=== PATIENT | male | born 1950 | race Caucasian/White ===

== ENCOUNTER → 2017-03-22 | Outpatient (CLI) | payer BC, SELFPAY | PROVIDERS: Visit Provider Nurse Practitioner Acute Care | DX: D64.9 Anemia, unspecified (principal) | CPT/HCPCS: 82272; G0328 ==

== ENCOUNTER → 2017-03-23 | Outpatient (CLI) | payer BC, SELFPAY | PROVIDERS: Visit Provider Nurse Practitioner Acute Care | DX: D64.9 Anemia, unspecified (principal) | CPT/HCPCS: 82272; G0328 ==

== ENCOUNTER → 2017-04-17 09:00 | Outpatient (POV) | payer BC, SELFPAY | PROVIDERS: Family Provider Emergency Medicine; Visit Provider Nurse Practitioner Acute Care | DX: Z00.00 Encounter for general adult medical examination without abnormal findings (principal) ==

== ENCOUNTER → 2017-07-03 10:15 | Outpatient (POV) | payer MEDICARE, SELFPAY | PROVIDERS: Visit Provider Nurse Practitioner Acute Care | DX: Z00.00 Encounter for general adult medical examination without abnormal findings (principal) ==

== ENCOUNTER → 2017-08-08 14:50 | Outpatient (POV) | payer MEDICARE, SELFPAY ==
[2017-08-08 18:11] LABS: Erythrocyte Sedimentation Rate 27 mm/hr (0-20)
[2017-08-08 18:21] LABS: Creatine Kinase 243 U/L (39-308); Uric Acid 3.6 mg/dL (2.6-7.2)
[2017-08-10 08:34] LABS: Alpha-1-Antitrypsin 167 mg/dL (90-200); Immunoglobulin A, Qn 118 mg/dL (61-437); Immunoglobulin G, Qn 709 mg/dL (700-1600); RA Latex Turbid. <10.0 IU/mL (0.0-13.9)
[2017-08-10 13:32] LABS: Immunoglobulin M, Qn 111 mg/dL (20-172)
[2017-08-11 13:00] LABS: Antinuclear Antibodies, IFA Negative (.)
[2017-08-11 13:03] LABS: Aldolase 3.4 U/L (3.3-10.3); Deamidated Gliadin Abs, IgA 5 units (0-19); Deamidated Gliadin Abs, IgG 4 units (0-19)
== END ==
PROVIDERS: Family Provider Emergency Medicine; Visit Provider Internal Medicine
DX: R06.00 Dyspnea, unspecified (principal); R19.7 Diarrhea, unspecified; R76.11 Nonspecific reaction to tuberculin skin test without active tuberculosis; G62.9 Polyneuropathy, unspecified; M79.1 Myalgia; M25.50 Pain in unspecified joint
CPT/HCPCS: 36415; 82085; 82104; 82550; 82784; 83516; 84550; 85651; 86038; 86431; 86480

== ENCOUNTER → 2017-08-17 08:04 | Outpatient (CLI) | payer MEDICARE, SELFPAY ==
[2017-08-17 09:36] LABS: Basophils % 0.7 % (0.1-2.0); Eosinophils # 0.2 K/mm3 (0.0-0.4); Eosinophils % 4.9 % (0.1-12.0); Hemoglobin 9.8 g/dL (14.1-18.0); Lymphocytes # 0.7 K/mm3 (0.7-4.5); Lymphocytes % 17.7 K/mm3 (10-50); Mean Corpuscular HGB Conc 29.6 g/dL (31.8-35.4); Mean Corpuscular Hemoglobin 19.9 pg (27.0-31.2); Mean Corpuscular Volume 67.2 fl (80-94); Mean Platelet Volume 7.8 fl (7.4-10.4); Monocytes # 0.3 K/mm3 (0.1-1.0); Monocytes % 7.7 % (1.7-9.3); Neutrophils # 2.8 K/mm3 (1.8-7.8); Platelet Count 314 K/mm3 (142-424); Red Cell Distribution Width 17.2 % (11.5-17.5); White Blood Count 4.1 K/mm3 (4.8-10.8)
[2017-08-17 11:39] LABS: Erythrocyte Sedimentation Rate 20 mm/hr (0-20)
[2017-08-17 12:37] LABS: Alanine Aminotransferase 33 U/L (12-78); Albumin Level 3.9 gm/dL (3.4-5.0); Albumin/Globulin Ratio 1.2 (1.1-1.8); Alkaline Phosphatase 75 U/L (46-116); Anion Gap 14.5 mEq/L (5-15); Aspartate Amino Transferase 33 U/L (15-37); Blood Urea Nitrogen 25 mg/dL (7-18); Calcium 9.2 mg/dL (8.5-10.1); Carbon Dioxide 25 mmol/L (21.0-32.0); Chloride 103 mmol/L (98-107); Creatinine,Serum 1.05 mg/dL (0.70-1.30); Estimated Glomerular Filt Rate 71 ml/min (>60); GFR (African American) 86 ML/MIN (>60); Globulin 3.2 gm/dl (1.3-3.2); Glucose 109 mg/dL (74-106); Potassium 4.5 mmoL/L (3.5-5.1); Sodium 138 mmol/L (136-145); Thyroid Stimulating Hormone 2.22 uIU/ml (0.358-3.740); Total Protein,Serum 7.1 gm/dL (6.4-8.2)
== END ==
PROVIDERS: Family Provider Emergency Medicine; PCP Emergency Medicine; Visit Provider Internal Medicine
DX: M79.1 Myalgia (principal); R06.00 Dyspnea, unspecified; M25.50 Pain in unspecified joint; G62.9 Polyneuropathy, unspecified; R19.7 Diarrhea, unspecified; R76.11 Nonspecific reaction to tuberculin skin test without active tuberculosis
CPT/HCPCS: 36415; 80053; 84443; 85025; 85651

== ENCOUNTER → 2017-08-24 16:00 | Outpatient (REF) | payer MEDICARE, SELFPAY ==
[2017-08-24 18:59] LABS: Hemoglobin A1C 6.7 % (0.0-7.0)
[2017-08-26 18:32] LABS: PSA, Free 0.14 ng/mL; Prostate Specific Ag 0.3 ng/mL (0.0-4.0); Vitamin B12 1496 pg/mL (232-1245)
== END ==
LOC: LAB 16:00
PROVIDERS: Visit Provider Nurse Practitioner Family
DX: E11.9 Type 2 diabetes mellitus without complications (principal); R53.83 Other fatigue; Z12.5 Encounter for screening for malignant neoplasm of prostate; N40.0 Benign prostatic hyperplasia without lower urinary tract symptoms
CPT/HCPCS: 82607; 82652; 83036; 84153; 84154

== ENCOUNTER → 2017-09-04 10:07 | Outpatient (POV) | payer MEDICARE, SELFPAY | PROVIDERS: Family Provider Emergency Medicine; PCP Emergency Medicine; Referring Provider Internal Medicine; Visit Provider Specialist | DX: M62.81 Muscle weakness (generalized) (principal); M79.1 Myalgia; G62.9 Polyneuropathy, unspecified; R06.00 Dyspnea, unspecified | CPT/HCPCS: 95886; 95912 ==

== ENCOUNTER → 2017-09-08 12:46 | Outpatient (CLI) | payer MEDICARE, SELFPAY ==
[2017-09-08 14:05] VITALS: PULSE 69
[2017-09-08 14:40] VITALS: BP 132/74; PULSE 78; RESP 16; O2SAT 97
[2017-09-08 14:50] VITALS: BP 141/80; PULSE 107; RESP 26; O2SAT 95
--- NOTE | 2017-09-08 14:55 | CT_ITS ---
CT chest wo con HISTORY: ITS.REASON: DYSPNEA,MUSCLE WEAKNESS ORDERING PHYSICIAN: De Avila MD PATIENT AGE: 67 years COMPARISON: None Technique: Axial images obtained. Sagittal and coronal reformatted images are also generated and reviewed. All CT scans at the facility use one or more dose reduction, viz: automated exposure control; ma/kV adjustment per patient size (including targeted exams where dose is matched to indication; i.e. head); or iterative reconstruction technique. FINDINGS: No mediastinal or hilar mass or adenopathy. There are coronary artery calcification with normal heart size and no evidence of pericardial effusion. No evidence of anterior mediastinal mass. There are few small nodes in the mediastinum nonspecific. Coronary artery stent is present. There are minimal fibrotic changes in the right lower lobe medially adjacent to prominent vertebral osteophytes. No effusions or infiltrates or suspicious pulmonary nodules. Upper abdominal images show small amount gas in the distal esophagus which may be seen with reflux. An isodense lesion is present in the left hepatic lobe incompletely imaged as seen on prior abdomen CT. IMPRESSION: 1. No acute finding. 2. No mediastinal or hilar mass or suspicious pulmonary mass.
== END ==
PROVIDERS: Family Provider Emergency Medicine; PCP Emergency Medicine; Visit Provider Internal Medicine
DX: R06.00 Dyspnea, unspecified (principal); M79.1 Myalgia; M62.81 Muscle weakness (generalized); G62.9 Polyneuropathy, unspecified; M25.50 Pain in unspecified joint
CPT/HCPCS: 71250; 94060; 94618; 94640; 94726; 94729

== ENCOUNTER → 2017-09-12 13:52 | Outpatient (POV) | payer MEDICARE, SELFPAY | PROVIDERS: Family Provider Emergency Medicine; PCP Emergency Medicine; Visit Provider Internal Medicine | DX: Z00.00 Encounter for general adult medical examination without abnormal findings (principal) ==

== ENCOUNTER → 2017-10-09 12:14 | Outpatient (CLI) | payer MEDICARE, SELFPAY ==
--- NOTE | 2017-10-09 12:34 | XR_ITS ---
Complete Cervical spine series Cervical flexion-extension views XR cervical spine w flex/ext Ordering Physician: Kirsten Gates MD Patient Age: 67 years: Male HISTORY: ITS.REASON: neuropathy TECHNIQUE: Five-view cervical spine series; with additional flexion and extension views C-spine COMPARISON :No C-spine studies FINDINGS No acute fracture nor subluxation. C1-C2 relationships appear normal. Prevertebral soft tissues normal. C2/3 disc unremarkable C3/4. Mild degenerative anterolisthesis of C3 on C4. This increases slightly between extension and flexion. It Measurements suggest m 2.4 mm in extension; 3.4 mm with flexion.. 3 mm in neutral position. However the posterior spinolaminar line remains satisfactory..- No significant offset of posterior elements Trace posterior ridging at this level yield mild left foraminal encroachment. There are hypertrophic degenerative facet changes most evident C3/4 level to the left C4/5. Disc with borderline narrowing posteriorly. Perhaps some trace posterior osteophytic ridging with moderate right foraminal encroachment C5-C6 Degenerative disc space narrowing at C5/6 with posterior osteophytic endplate ridging evident yielding right foraminal encroachment more so than left Most prominent, exuberant anterior marginal osteophytes are seen at this level C6/7. Disc intact. Normal alignment C7/T1. IMPRESSION: 1.... C5-C6: Degenerative disc changes most evident at C5-C6 A prominent disc space narrowing with posterior osteophytic ridging indenting thecal sac and encroachment upon neural foramen right more so than left 2.... C3/4. Mild degenerative listhesis of which appears to increase very slightly with flexion. Cervical spondylosis & prominent facet hypertrophy/arthropathy to the left at C3/4 level: (& likely contributes to this degenerative listhesis) (
[2017-10-09 13:21] LABS: Creatine Kinase 156 U/L (39-308)
[2017-10-10 14:33] LABS: Albumin 3.8 g/dL (2.9-4.4); Alpha-1-Globulin 0.2 g/dL (0.0-0.4); Alpha-2-Globulin 0.9 g/dL (0.4-1.0); Angiotensin Converting Enzyme 39 U/L (14-82); Anti-Jo-1 <0.2 AI (0.0-0.9); Gamma Globulin 0.8 g/dL (0.4-1.8); Protein, Total 6.8 g/dL (6.0-8.5)
[2017-10-10 19:21] LABS: Aldolase 3.4 U/L (3.3-10.3)
[2017-10-14 06:26] LABS: Vitamin E Gamma Tocopherol 0.7 mg/L (0.5-4.9)
[2017-10-14 18:28] LABS: Methylmalonic Acid 133 nmol/L (0-378)
[2017-10-18 06:13] LABS: Vitamin E Alpha Tocopherol 35.4 mg/L (9.0-29.0)
== END ==
PROVIDERS: PCP Nurse Practitioner Family; Visit Provider Specialist
DX: G62.9 Polyneuropathy, unspecified (principal); R26.89 Other abnormalities of gait and mobility; R26.9 Unspecified abnormalities of gait and mobility; R53.1 Weakness
CPT/HCPCS: 36415; 72052; 82085; 82131; 82164; 82550; 84155; 84165; 84446; 86235

== ENCOUNTER → 2017-10-16 10:17 | Outpatient (CLI) | payer MEDICARE, SELFPAY | PROVIDERS: Family Provider Emergency Medicine; PCP Nurse Practitioner Family; Visit Provider Specialist | DX: R26.89 Other abnormalities of gait and mobility (principal) ==

== ENCOUNTER → 2017-10-23 10:10 | Outpatient (CLI) | payer MEDICARE, SELFPAY ==
--- NOTE | 2017-10-23 10:31 | MR_ITS ---
MR cervical spine wo con, MR 3-d myelogram/MRCP HISTORY: Neck pain X few years. Bilateral. Arm and Leg pain, numbness, and tingling. Weakness Bilateral hands. Rt leg Lymphadema. . ITS.REASON: WEAKNESS, GAIT DISTUBANCE ORDERING PHYSICIAN: Kirsten Gates MD PATIENT AGE: 67 years Comparison: X-RAY 10/09/17 TECHNIQUE: Standard multiplanar multiecho sequences are performed without contrast. 3-D MIP and myelographic images are also rendered and reviewed FINDINGS: Study is very limited secondary to motion artifact. Fine detail is obscured. There is reversal of the cervical lordosis. This may be due to patient positioning or muscle spasm. The craniocervical junction has an unremarkable appearance. C2-C3: Unremarkable. C3-C4: Degenerative disc disease. 3 mm anterolisthesis of C3 on C4. There is narrowing of the canal at 10 mm. C4-C5: Degenerative disc disease with mild concentric bulging disc with narrowing of the canal at 10 mm. C5-C6: Degenerative disc disease with concentric bulging disc. Sagittal images suggest a right paracentral disc osteophyte complex. Axial images are very limited due to motion artifact. There is narrowing of the canal at this level at 9 mm. C6-C7: Unremarkable. C7-T1: Unremarkable. IMPRESSION: The study is very limited secondary to motion artifact. There is multilevel degenerative disc disease which is most extensive at C5-C6. Right paracentral disc osteophyte complex is present at C5-C6. The degree of impingement however is not adequately determined secondary to the motion artifact. There is narrowing of the canal C3-C7.
== END ==
PROVIDERS: Family Provider Emergency Medicine; PCP Nurse Practitioner Family; Visit Provider Specialist
DX: R53.1 Weakness (principal); G62.9 Polyneuropathy, unspecified; R26.9 Unspecified abnormalities of gait and mobility; R26.89 Other abnormalities of gait and mobility
CPT/HCPCS: 72141; 76376

== ENCOUNTER → 2017-10-30 09:48 | Outpatient (POV) | payer MEDICARE, SELFPAY | PROVIDERS: Family Provider Emergency Medicine; PCP Nurse Practitioner Family; Visit Provider Internal Medicine | DX: Z00.00 Encounter for general adult medical examination without abnormal findings (principal) ==

== ENCOUNTER → 2018-01-12 06:54 | Outpatient (CLI) | payer MEDICARE, SELFPAY ==
--- NOTE | 2018-01-12 06:57 | NM_ITS ---
History and Indications: Coronary artery disease, hypertension, diabetes, hyperlipidemia, family history, shortness of breath and fatigue Procedure: Patient received a 0.4 mg of intravenous Lexiscan, resting heart rate was 68 bpm resting blood pressure 143/83, CT scan maximum heart rate achieved was 96 bpm which is less than 85% of the maximum predicted heart rate and a blood pressure was 129/73. With Lexiscan patient denied complained of chest pain. Electrocardiogram: Resting electrocardiogram showed sinus rhythm, with Lexiscan there is less than 1.[address] segment depression noted from the baseline EKG. The EKG portion of the Lexiscan Myoview is nondiagnostic. Cardiac stress and resting SPECT images: Cardiac stress and rest SPECT images were obtained using technetium 99 Myoview 31.3 mCi at stress and 9.8 mCi at rest gated SPECT further analysis of segmental wall motion and calculation of the ejection fraction also done. Cardiac stress and resting SPECT images show mild fixed defect in the inferior wall with normal contractility gated SPECT is likely secondary to soft tissue attenuation, no reversible ischemia seen, computer derived ejection fraction is 85% with no regional wall motion abnormality, right ventricle is normal size and contractility. Conclusion: 1. The EKG portion of the Lexiscan Myoview is nondiagnostic. 2. No scintigraphic evidence of reversible ischemia seen, computer derived ejection fraction is 55% with no regional wall motion abnormality, right ventricle is normal size and contractility. 3. Normal Lexiscan Myoview study.
== END ==
PROVIDERS: Family Provider Emergency Medicine; PCP Nurse Practitioner Family; Visit Provider Internal Medicine
DX: E11.9 Type 2 diabetes mellitus without complications (principal); I25.10 Atherosclerotic heart disease of native coronary artery without angina pectoris; I89.0 Lymphedema, not elsewhere classified; E78.49 Other hyperlipidemia; I10 Essential (primary) hypertension; R06.09 Other forms of dyspnea
CPT/HCPCS: 78452; 93017; A9502; J2785

== ENCOUNTER → 2018-02-12 11:55 | Outpatient (POV) | payer MEDICARE, SELFPAY | PROVIDERS: Visit Provider Nurse Practitioner Acute Care | DX: Z00.00 Encounter for general adult medical examination without abnormal findings (principal) ==

== ENCOUNTER → 2018-04-30 09:02 | Outpatient (POV) | payer MEDICARE, SELFPAY | PROVIDERS: Visit Provider Nurse Practitioner Acute Care | DX: Z00.00 Encounter for general adult medical examination without abnormal findings (principal) ==

== ENCOUNTER → 2018-06-27 13:27 | Outpatient (CLI) | payer MEDICARE, SELFPAY ==
[2018-06-27 14:15] LABS: Alanine Aminotransferase 47 U/L (12-78); Albumin Level 3.7 gm/dL (3.4-5.0); Alkaline Phosphatase 66 U/L (46-116); Anion Gap 17.4 mEq/L (5-15); Aspartate Amino Transferase 40 U/L (15-37); Bilirubin,Total 0.5 mg/dL (0.2-1.0); Blood Urea Nitrogen 17 mg/dL (7-18); Calcium 8.8 mg/dL (8.5-10.1); Carbon Dioxide 24 mmol/L (21.0-32.0); Chloride 103 mmol/L (98-107); Chol/HDL Ratio 2.3 (1-3.5); Cholesterol 128 mg/dL (140-200); Creatinine,Serum 1.05 mg/dL (0.70-1.30); Estimated Glomerular Filt Rate 71 ml/min (>60); GFR (African American) 86 ML/MIN (>60); Globulin 3.6 gm/dl (1.3-3.2); Glucose 122 mg/dL (74-106); HDL Cholesterol 56 mg/dL (27-67); LDL Cholesterol 52 mg/dL (0-130); Potassium 4.4 mmoL/L (3.5-5.1); Sodium 140 mmol/L (136-145); T4 (Thyroxine) 9.9 ug/dl (4.7-13.3); Total Protein,Serum 7.3 gm/dL (6.4-8.2); Triglycerides 101 mg/dL (30-200); VLDL Cholesterol 20 mg/dL (0-40)
[2018-06-27 14:23] LABS: Hemoglobin A1C 7.2 % (0.0-7.0)
[2018-06-27 14:50] LABS: Basophils % 0.4 % (0.1-2.0); Eosinophils # 0.1 K/mm3 (0.0-0.4); Hematocrit 32.2 % (42.0-52.0); Hemoglobin 9.2 g/dL (14.1-18.0); Lymphocytes # 0.6 K/mm3 (0.7-4.5); Lymphocytes % 9.7 % (10-50); Mean Corpuscular HGB Conc 28.7 g/dL (31.8-35.4); Mean Corpuscular Hemoglobin 19.8 pg (27.0-31.2); Mean Corpuscular Volume 68.8 fl (80-94); Mean Platelet Volume 7.1 fl (7.4-10.4); Monocytes # 0.6 K/mm3 (0.1-1.0); Monocytes % 8.8 % (1.7-9.3); Neutrophils # 5.1 K/mm3 (1.8-7.8); Neutrophils % 79.1 % (37.0-80.0); Platelet Count 375 K/mm3 (142-424); Red Blood Count 4.68 M/mm3 (4.60-6.20); Red Cell Distribution Width 18.9 % (11.5-17.5); White Blood Count 6.4 K/mm3 (4.8-10.8)
[2018-06-28 09:20] LABS: Creatinine, Urine 305.9 mg/dL (Not Estab.); Microalbumin, Urine 129.3 ug/mL (Not Estab.)
[2018-06-28 15:08] LABS: PSA, Free 0.15 ng/mL; Prostate Specific Ag 0.5 ng/mL (0.0-4.0); Vitamin D 25 Hydroxy 37.9 ng/mL (30.0-100.0)
[2018-06-28 15:54] LABS: Ferritin 26 ng/mL (8-388)
[2018-06-30 08:26] LABS: Iron 18 ug/dL (38-169); UIBC 407 ug/dL (111-343)
[2018-06-30 18:09] LABS: Iron Saturation 4 % (15-55)
== END ==
PROVIDERS: Visit Provider Physician Assistant
DX: R06.02 Shortness of breath (principal); R09.89 Other specified symptoms and signs involving the circulatory and respiratory systems; E11.9 Type 2 diabetes mellitus without complications; R19.7 Diarrhea, unspecified; D64.9 Anemia, unspecified
CPT/HCPCS: 80053; 80061; 82043; 82570; 82652; 82728; 83036; 83540; 83550; 84153; 84154; 84436; 84443; 85025

== ENCOUNTER → 2018-07-03 14:51 | Outpatient (POV) | payer MEDICARE, SELFPAY | PROVIDERS: Visit Provider Internal Medicine | DX: Z00.00 Encounter for general adult medical examination without abnormal findings (principal) ==

== ENCOUNTER 2018-07-16 12:56 | Outpatient (CLI) | payer MEDICARE, SELFPAY ==
[2018-07-16 13:24] VITALS: BP 153/81; PULSE 82; RESP 18; TEMP 36.4; O2SAT 99
[2018-07-16 14:05] VITALS: BP 144/79; PULSE 84; RESP 18; O2SAT 99
== END 2018-07-16 14:05 | disposition home or self-care (01) ==
LOC: INF 12:56
PROVIDERS: Visit Provider Physician Assistant
DX: D50.9 Iron deficiency anemia, unspecified (principal)
CPT/HCPCS: 96365; J1439

== ENCOUNTER 2018-07-23 13:48 | Outpatient (CLI) | payer MEDICARE, SELFPAY ==
[2018-07-23 14:00] VITALS: BP 153/79; PULSE 85; RESP 18; TEMP 36.6; O2SAT 97
[2018-07-23 14:30] VITALS: BP 150/76; PULSE 88; RESP 18; O2SAT 98
[2018-07-23 14:45] VITALS: BP 155/90; PULSE 84; RESP 20; O2SAT 98
== END 2018-07-23 14:45 | disposition home or self-care (01) ==
LOC: INF 13:48
PROVIDERS: Visit Provider Physician Assistant
DX: D50.9 Iron deficiency anemia, unspecified (principal)
CPT/HCPCS: 96365; J1439

== ENCOUNTER → 2018-07-24 14:50 | Outpatient (POV) | payer MEDICARE, SELFPAY | PROVIDERS: Visit Provider Dermatology | DX: Z00.00 Encounter for general adult medical examination without abnormal findings (principal) ==

== ENCOUNTER → 2018-07-27 14:35 | Outpatient (CLI) | payer MEDICARE, SELFPAY ==
[2018-07-27 15:26] LABS: Basophils % 0.5 % (0.1-2.0); Eosinophils # 0.1 K/mm3 (0.0-0.4); Eosinophils % 2.5 % (0.1-12.0); Hemoglobin 10.8 g/dL (14.1-18.0); Lymphocytes # 0.9 K/mm3 (0.7-4.5); Lymphocytes % 21.8 % (10-50); Mean Corpuscular HGB Conc 30.8 g/dL (31.8-35.4); Mean Corpuscular Hemoglobin 22.7 pg (27.0-31.2); Mean Corpuscular Volume 73.8 fl (80-94); Mean Platelet Volume 7.5 fl (7.4-10.4); Monocytes # 0.3 K/mm3 (0.1-1.0); Monocytes % 7.5 % (1.7-9.3); Neutrophils # 2.7 K/mm3 (1.8-7.8); Neutrophils % 67.7 % (37.0-80.0); Platelet Count 216 K/mm3 (142-424); Red Blood Count 4.74 M/mm3 (4.60-6.20); White Blood Count 3.9 K/mm3 (4.8-10.8)
[2018-07-27 15:51] LABS: Red Cell Distribution Width 25.8 % (11.5-17.5)
[2018-07-27 16:39] LABS: Prostate Specific Ag Screen 0.3 ng/mL (0.0-4.0)
== END ==
PROVIDERS: Visit Provider Physician Assistant
DX: R06.02 Shortness of breath (principal); Z12.5 Encounter for screening for malignant neoplasm of prostate; D50.9 Iron deficiency anemia, unspecified
CPT/HCPCS: 36415; 85025; G0103

== ENCOUNTER → 2018-08-07 17:30 | Outpatient (CLI) | payer MEDICARE, SELFPAY ==
[2018-08-07 18:21] LABS: Basophils % 0.3 % (0.1-2.0); Eosinophils % 0.6 % (0.1-12.0); Hematocrit 37.9 % (42.0-52.0); Hemoglobin 11.7 g/dL (14.1-18.0); Lymphocytes # 0.8 K/mm3 (0.7-4.5); Lymphocytes % 13.2 % (10-50); Mean Corpuscular HGB Conc 30.9 g/dL (31.8-35.4); Mean Corpuscular Hemoglobin 23.9 pg (27.0-31.2); Mean Corpuscular Volume 77.5 fl (80-94); Monocytes # 0.4 K/mm3 (0.1-1.0); Monocytes % 6.7 % (1.7-9.3); Neutrophils # 5.1 K/mm3 (1.8-7.8); Neutrophils % 79.2 % (37.0-80.0); Platelet Count 256 K/mm3 (142-424); Red Blood Count 4.89 M/mm3 (4.60-6.20); White Blood Count 6.4 K/mm3 (4.8-10.8)
[2018-08-07 18:27] LABS: Red Cell Distribution Width 25.6 % (11.5-17.5)
[2018-08-09 08:22] LABS: Iron 70 ug/dL (38-169); UIBC 245 ug/dL (111-343)
[2018-08-09 10:50] LABS: Iron Saturation 22 % (15-55)
== END ==
PROVIDERS: Visit Provider Nurse Practitioner Family
DX: D50.9 Iron deficiency anemia, unspecified (principal)
CPT/HCPCS: 83540; 83550; 85025

== ENCOUNTER → 2018-09-04 14:57 | Outpatient (POV) | payer MEDICARE, SELFPAY | PROVIDERS: Visit Provider Dermatology | DX: Z00.00 Encounter for general adult medical examination without abnormal findings (principal) ==

== ENCOUNTER → 2018-09-07 07:45 | Outpatient (CLI) | payer MEDICARE, SELFPAY ==
--- NOTE | 2018-09-07 07:47 | MR_ITS ---
MR shoulder LT wo con HISTORY:Left shoulder pain, injury with pain, unable to raise left arm above head ITS.REASON: shoulder pain- scapula fx ORDERING PHYSICIAN: Jonah Anthony APRN PATIENT AGE: 68 years Comparison: None TECHNIQUE: Standard multiplanar multiecho sequences are performed without contrast. FINDINGS: There is a complete tear of the supraspinatus tendon with retraction of the musculotendinous fibers. Prominent hypertrophic changes are present at the acromioclavicular joint with moderate to severe subacromial stenosis with the subacromial space measuring approximately 3 mm. There is superior location of the humeral head. A full-thickness tear is also present involving the infraspinatus tendon anteriorly. There may be some intact fibers posteriorly. There is also a complete tear of the subscapularis tendon with retraction of the tendinous fibers in the glenohumeral region. Teres minor tendon does appear to be intact. No obvious labral tear. No fracture. There is a small amount of fluid along the anterior posterior aspect of the shoulder joint. Bicipital tendon is in place. There is a small subarticular cyst involving the humeral head posteriorly at 5 mm. IMPRESSION: 1. There is complete tear of the supraspinatus and subscapularis tendon with retraction of the musculotendinous fibers. 2. Full-thickness tear of the infraspinatus tendon. There may be some intact fibers posteriorly. The infraspinatus tendon is not retracted. 3. Superior position of the humeral head with subarticular cyst of the humeral head and small shoulder joint effusion. 4. Severe subacromial stenosis
== END ==
PROVIDERS: PCP Nurse Practitioner Family; Visit Provider Nurse Practitioner Family
DX: S42.109A Fracture of unspecified part of scapula, unspecified shoulder, initial encounter for closed fracture (principal)
CPT/HCPCS: 73221

== ENCOUNTER → 2018-09-10 20:19 | Outpatient (CLI) | payer MEDICARE, SELFPAY ==
[2018-09-10 20:57] LABS: Basophils % 0.5 % (0.1-2.0); Eosinophils # 0.1 K/mm3 (0.0-0.4); Eosinophils % 2.2 % (0.1-12.0); Hematocrit 39.4 % (42.0-52.0); Hemoglobin 11.8 g/dL (14.1-18.0); Lymphocytes # 1.2 K/mm3 (0.7-4.5); Lymphocytes % 22.7 % (10-50); Mean Corpuscular HGB Conc 30.1 g/dL (31.8-35.4); Mean Corpuscular Hemoglobin 23.8 pg (27.0-31.2); Mean Corpuscular Volume 79.3 fl (80-94); Mean Platelet Volume 7.9 fl (7.4-10.4); Monocytes # 0.4 K/mm3 (0.1-1.0); Monocytes % 7.5 % (1.7-9.3); Neutrophils # 3.5 K/mm3 (1.8-7.8); Neutrophils % 67.1 % (37.0-80.0); Platelet Count 263 K/mm3 (142-424); Red Blood Count 4.96 M/mm3 (4.60-6.20); Red Cell Distribution Width 21.5 % (11.5-17.5); White Blood Count 5.1 K/mm3 (4.8-10.8)
[2018-09-10 21:22] LABS: Ferritin 94 ng/mL (8-388)
[2018-09-12 08:25] LABS: Iron 51 ug/dL (38-169); UIBC 260 ug/dL (111-343)
[2018-09-13 07:45] LABS: Iron Saturation 16 % (15-55)
== END ==
PROVIDERS: Visit Provider Emergency Medicine
DX: D50.9 Iron deficiency anemia, unspecified (principal)
CPT/HCPCS: 82728; 83540; 83550; 85025

== ENCOUNTER → 2018-09-14 12:25 | Outpatient (CLI) | payer MEDICARE, SELFPAY ==
--- NOTE | 2018-09-14 12:28 | XR_ITS ---
XR shoulder LT min 2V HISTORY: ITS.REASON: lt shoulder pain ORDERING PHYSICIAN: Shruthi Francois MD PATIENT AGE: 68 years Comparison: None FINDINGS: No fracture or dislocation. No lytic or blastic change. There is normal mineralization. There are mild osteoarthritic changes of the acromioclavicular and glenohumeral joint. No fracture or dislocation. There is severe subacromial stenosis IMPRESSION: Mild osteoarthritis with severe subacromial stenosis in this patient with a known rotator cuff tear.
[2018-09-14 14:51] LABS: Basophils % 0.4 % (0.1-2.0); Eosinophils # 0.1 K/mm3 (0.0-0.4); Eosinophils % 2.3 % (0.1-12.0); Hematocrit 38.2 % (42.0-52.0); Hemoglobin 11.7 g/dL (14.1-18.0); Lymphocytes % 21.1 % (10-50); Mean Corpuscular HGB Conc 30.7 g/dL (31.8-35.4); Mean Corpuscular Hemoglobin 24.2 pg (27.0-31.2); Mean Corpuscular Volume 78.9 fl (80-94); Mean Platelet Volume 7.3 fl (7.4-10.4); Monocytes # 0.4 K/mm3 (0.1-1.0); Monocytes % 7.9 % (1.7-9.3); Neutrophils # 3.4 K/mm3 (1.8-7.8); Neutrophils % 68.4 % (37.0-80.0); Platelet Count 241 K/mm3 (142-424); Red Blood Count 4.84 M/mm3 (4.60-6.20); Red Cell Distribution Width 21.1 % (11.5-17.5); White Blood Count 4.9 K/mm3 (4.8-10.8)
[2018-09-14 14:52] LABS: INR 0.96 (0.9-1.1)
[2018-09-14 16:48] LABS: Alanine Aminotransferase 47 U/L (12-78); Albumin Level 3.6 gm/dL (3.4-5.0); Albumin/Globulin Ratio 1.2 (1.1-1.8); Alkaline Phosphatase 61 U/L (46-116); Aspartate Amino Transferase 32 U/L (15-37); Bilirubin,Total 0.4 mg/dL (0.2-1.0); Blood Urea Nitrogen 15 mg/dL (7-18); Calcium 8.3 mg/dL (8.5-10.1); Carbon Dioxide 27 mmol/L (21.0-32.0); Chloride 107 mmol/L (98-107); Creatinine,Serum 0.92 mg/dL (0.70-1.30); Estimated Glomerular Filt Rate 82 ml/min (>60); GFR (African American) 100 ML/MIN (>60); Globulin 2.9 gm/dl (1.3-3.2); Glucose 122 mg/dL (74-106); Sodium 143 mmol/L (136-145); Total Protein,Serum 6.5 gm/dL (6.4-8.2)
== END ==
PROVIDERS: PCP Emergency Medicine; Visit Provider Orthopaedic Surgery
DX: M25.512 Pain in left shoulder (principal); D64.9 Anemia, unspecified; Z51.81 Encounter for therapeutic drug level monitoring
CPT/HCPCS: 36415; 73030; 80053; 85025; 85610; 93005

== ENCOUNTER → 2018-09-21 11:59 | Outpatient (CLI) | payer OTHER, MEDICARE, SELFPAY ==
--- NOTE | 2018-09-21 12:02 | NM_ITS ---
CARDIOLITE SPECT MYOCARDIAL PERFUSION LEXISCAN, REST AND STRESS: History: Diabetes mellitus, coronary artery disease, shortness of breath, preop cardiovascular risk assessment Procedure: Patient received a 0.4 mg of intravenous Lexiscan, resting heart rate was 66 bpm resting blood pressure 138/78, with Lexiscan with Lexiscan maximum heart rate achieved was 88 bpm which is less than 85% of the maximum] heart rate and a blood pressure was 152/55. With Lexiscan patient denied complained of chest pain or shortness of breath. Electrocardiogram: Single electrocardiogram showed sinus rhythm, with Lexiscan there is less than 1.[address] segment depression noted from the baseline EKG. The EKG portion of the Lexiscan Myoview is nondiagnostic. Cardiac stress and resting SPECT images: Cardiac stress and the suspect images were obtained using technetium 99 Myoview 30.6 mCi stress and 9.8 mCi at rest. Gated SPECT further analysis of segmental wall motion and calculation of the ejection fraction also done. Cardiac stress and rest SPECT images show mild fixed defect in the inferior wall with normal contractility in the gated SPECT is likely secondary to soft tissue attenuation, no reversible ischemia seen, computer derived ejection fraction is 53% with no regional wall motion abnormality, right ventricle is normal size and contractility. Conclusion: 1. The EKG portion of the Lexiscan Myoview is nondiagnostic. 2. No scintigraphic evidence of reversible ischemia seen, computer derived ejection fraction is 53% with no regional wall motion abnormality, right ventricle is normal size and contractility. 3. Normal Lexiscan Myoview study.
--- NOTE | 2018-09-21 12:41 | CA_ITS ---
PROCEDURE: 2-D M-mode and color Doppler study INDICATIONS FOR THE TEST: Chest pain COPD Heart Murmur Tobacco Smoking Palpitations Fatigue Syncope Edema Hypertension+Diabetes Mellitus+ Rheumatic Fever SOB [place] Obesity Hyperlipidemia+ Family History HD Additional History Definity utilized PATIENT INFORMATION HEIGHT: 69 WEIGHT: 230 GENDER: Male B/P: 147/65 2-D/M-MODE INTERPRETATION: 2-D MEASUREMENTS OBSERVED VALUES IN CMS Right Ventricular Dimension (RVDd) 1.8 Interventricular Septum (Thickness)(IVsd) 0.8 Left Ventricular Internal Dimensions(LVIDd) 4.9 Left Ventricular Posterior Wall (Thickness)(LVPWd) 0.9 Aortic Root 2.8 Aortic Cusp Separation 2.0 Left Atrial Dimensions (LAD) 3.1 2D 1. Left atrium is qualitatively mildly enlarged, left ventricle is normal size, mild concentric left ventricular hypertrophy, visually estimated ejection fraction 55% with no regional wall motion abnormality. Definity contrast was utilized to delineate endocardial surfaces. 2. Right atrium and right ventricle are normal size and contractility. 3. The aortic valve is minimally thickened and fibrosed. 4. The mitral and tricuspid valvular grossly normal. 5. The pulmonic valve is poorly visualized. 6. No significant pericardial effusion noted. DOPPLER INTERROGATION: Doppler interrogation of the aortic, mitral and tricuspid valvular presence of mild mitral and tricuspid regurgitation, tricuspid regurgitation jet velocity is inadequate for calculation of the right ventricular systolic pressure, grade 1 diastolic dysfunction seen without tissue Doppler evidence of raised left atrial pressure. CONCLUSION: 1. Technically difficult study, Definity contrast was utilized to delineate endocardial surfaces. 2. Mildly enlarged left atrium, normal left ventricular size, mild concentric left ventricular hypertrophy, visually estimated ejection fraction 55% with no regional wall motion abnormality, grade 1 diastolic dysfunction seen without tissue Doppler evidence of raised left atrial pressure. 3. Mild mitral and tricuspid regurgitation 4. No significant pericardial effusion noted.
--- NOTE | 2018-09-21 14:41 | HMH.ITSHM ---
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 []trazolam tramadol pioglitazone naproxen mupirocin dicyclomine cyclobenzaprine clopidogrel aspirin albuterol
== END ==
PROVIDERS: PCP Nurse Practitioner Family; Visit Provider Internal Medicine
DX: R06.09 Other forms of dyspnea (principal); I25.10 Atherosclerotic heart disease of native coronary artery without angina pectoris
CPT/HCPCS: 78452; 93017; 93306; A9502; J2785

== ENCOUNTER → 2018-10-22 09:06 | Outpatient (CLI) | payer MEDICARE, OTHER, SELFPAY ==
[2018-10-22 09:55] LABS: Basophils % 0.4 % (0.1-2.0); Eosinophils # 0.1 K/mm3 (0.0-0.4); Eosinophils % 0.8 % (0.1-12.0); Hematocrit 42.8 % (42.0-52.0); Hemoglobin 13.4 g/dL (14.1-18.0); Lymphocytes # 0.8 K/mm3 (0.7-4.5); Lymphocytes % 12.5 % (10-50); Mean Corpuscular HGB Conc 31.4 g/dL (31.8-35.4); Mean Corpuscular Hemoglobin 25.8 pg (27.0-31.2); Mean Corpuscular Volume 82.3 fl (80-94); Mean Platelet Volume 7.8 fl (7.4-10.4); Monocytes # 0.5 K/mm3 (0.1-1.0); Neutrophils # 4.8 K/mm3 (1.8-7.8); Neutrophils % 78.2 % (37.0-80.0); Platelet Count 327 K/mm3 (142-424); Red Cell Distribution Width 17.1 % (11.5-17.5); White Blood Count 6.1 K/mm3 (4.8-10.8)
[2018-10-22 10:28] LABS: Alanine Aminotransferase 51 U/L (12-78); Albumin Level 3.9 gm/dL (3.4-5.0); Albumin/Globulin Ratio 1.2 (1.1-1.8); Alkaline Phosphatase 67 U/L (46-116); Anion Gap 15.2 mEq/L (5-15); Aspartate Amino Transferase 35 U/L (15-37); Bilirubin,Total 0.6 mg/dL (0.2-1.0); Blood Urea Nitrogen 20 mg/dL (7-18); Calcium 9.1 mg/dL (8.5-10.1); Carbon Dioxide 25 mmol/L (21.0-32.0); Chloride 103 mmol/L (98-107); Creatinine,Serum 1.07 mg/dL (0.70-1.30); Estimated Glomerular Filt Rate 69 ml/min (>60); GFR (African American) 84 ML/MIN (>60); Globulin 3.2 gm/dl (1.3-3.2); Glucose 150 mg/dL (74-106); Potassium 4.2 mmoL/L (3.5-5.1); Sodium 139 mmol/L (136-145); Total Protein,Serum 7.1 gm/dL (6.4-8.2)
[2018-10-22 10:30] LABS: C-Reactive Protein < 0.2 mg/L (0.0-0.9)
[2018-10-22 13:25] LABS: Erythrocyte Sedimentation Rate 17 mm/hr (0-20)
== END ==
PROVIDERS: Visit Provider Physician Assistant
DX: R51 Headache (principal)
CPT/HCPCS: 36415; 80053; 85025; 85651; 86140

== ENCOUNTER → 2018-11-02 08:04 | Outpatient (CLI) | payer MEDICARE, SELFPAY ==
[2018-11-02 08:07] LABS: Microscopic, Urine URINE MICROSCOPIC (MICROSCOPIC)
[2018-11-02 08:55] LABS: Basophils % 0.4 % (0.1-2.0); Eosinophils # 0.1 K/mm3 (0.0-0.4); Eosinophils % 1.6 % (0.1-12.0); Hematocrit 40.7 % (42.0-52.0); Hemoglobin 12.8 g/dL (14.1-18.0); Lymphocytes # 0.8 K/mm3 (0.7-4.5); Lymphocytes % 13.1 % (10-50); Mean Corpuscular HGB Conc 31.5 g/dL (31.8-35.4); Mean Corpuscular Hemoglobin 25.8 pg (27.0-31.2); Mean Corpuscular Volume 81.9 fl (80-94); Monocytes # 0.4 K/mm3 (0.1-1.0); Monocytes % 7.7 % (1.7-9.3); Neutrophils # 4.5 K/mm3 (1.8-7.8); Neutrophils % 77.2 % (37.0-80.0); Platelet Count 241 K/mm3 (142-424); Red Blood Count 4.97 M/mm3 (4.60-6.20); Red Cell Distribution Width 16.7 % (11.5-17.5); White Blood Count 5.8 K/mm3 (4.8-10.8)
[2018-11-02 09:02] LABS: Appearance,Urine CLEAR (Clear); Bilirubin,Urine Negative (Negative); Blood, Urine Negative (Negative); Color,Urine YELLOW (Yellow); Glucose,Urine (UA) Negative (Negative); Ketones,Urine TRACE (Negative); Leukocyte Esterase,Urine Negative (Negative); Nitrate,Urine Negative (Negative); PH,Urine 5.5 (5.0-8.5); Protein,Urine 1+ (Negative); Specific Gravity, Urine >= 1.030 (1.005-1.030); Urobilinogen,Urine 0.2 EU/dl (0.2)
[2018-11-02 09:24] LABS: Bacteria,Urine Trace /lpf; Squamous Epithelial Cell,Urine Occasional #/hpf (0-5); WBC,Urine Occasional #/hpf (0-3)
[2018-11-02 09:46] LABS: Creatinine,Urine Random 358 mg/dL (20-320); Total Protein,Urine Random 80.1 mg/dL (0.0-11.9)
[2018-11-02 09:51] LABS: Albumin Level 3.5 gm/dL (3.4-5.0); Anion Gap 14.2 mEq/L (5-15); Blood Urea Nitrogen 16 mg/dL (7-18); Calcium 8.9 mg/dL (8.5-10.1); Carbon Dioxide 25 mmol/L (21.0-32.0); Chloride 104 mmol/L (98-107); Creatinine,Serum 0.95 mg/dL (0.70-1.30); Estimated Glomerular Filt Rate 79 ml/min (>60); GFR (African American) 96 ML/MIN (>60); Glucose 139 mg/dL (74-106); Phosphorous 3.2 mg/dL (2.4-4.9); Potassium 4.2 mmoL/L (3.5-5.1); Sodium 139 mmol/L (136-145)
[2018-11-03 18:03] LABS: Parathyroid Hormone Intact 25 pg/mL (15-65); Vitamin D 25 Hydroxy 32.1 ng/mL (30.0-100.0)
== END ==
PROVIDERS: Visit Provider Internal Medicine Nephrology
DX: R80.9 Proteinuria, unspecified (principal)
CPT/HCPCS: 36415; 80069; 81001; 82570; 82652; 83970; 84155; 85025

== ENCOUNTER → 2018-11-05 15:21 | Outpatient (POV) | payer MEDICARE, SELFPAY | PROVIDERS: Visit Provider Internal Medicine Nephrology | DX: Z00.00 Encounter for general adult medical examination without abnormal findings (principal) ==

== ENCOUNTER → 2018-12-18 14:45 | Outpatient (POV) | payer MEDICARE, SELFPAY | PROVIDERS: Visit Provider Internal Medicine | DX: Z00.00 Encounter for general adult medical examination without abnormal findings (principal) ==

== ENCOUNTER → 2018-12-28 08:24 | Outpatient (CLI) | payer MEDICARE, SELFPAY ==
[2018-12-28 09:22] LABS: Basophils % 0.5 % (0.1-2.0); Eosinophils # 0.1 K/mm3 (0.0-0.4); Eosinophils % 1.8 % (0.1-12.0); Hematocrit 39.7 % (42.0-52.0); Hemoglobin 12.7 g/dL (14.1-18.0); Lymphocytes # 0.6 K/mm3 (0.7-4.5); Lymphocytes % 12.2 % (10-50); Mean Corpuscular Hemoglobin 26.3 pg (27.0-31.2); Mean Corpuscular Volume 82.2 fl (80-94); Mean Platelet Volume 7.5 fl (7.4-10.4); Monocytes # 0.3 K/mm3 (0.1-1.0); Monocytes % 6.9 % (1.7-9.3); Neutrophils # 3.8 K/mm3 (1.8-7.8); Neutrophils % 78.6 % (37.0-80.0); Platelet Count 252 K/mm3 (142-424); Red Blood Count 4.83 M/mm3 (4.60-6.20); Red Cell Distribution Width 15.7 % (11.5-17.5); White Blood Count 4.8 K/mm3 (4.8-10.8)
[2018-12-28 09:38] LABS: Alanine Aminotransferase 50 U/L (12-78); Albumin Level 3.5 gm/dL (3.4-5.0); Albumin/Globulin Ratio 1.2 (1.1-1.8); Alkaline Phosphatase 50 U/L (46-116); Anion Gap 13.6 mEq/L (5-15); Aspartate Amino Transferase 43 U/L (15-37); Bilirubin,Total 0.6 mg/dL (0.2-1.0); Blood Urea Nitrogen 17 mg/dL (7-18); Calcium 8.7 mg/dL (8.5-10.1); Carbon Dioxide 26 mmol/L (21.0-32.0); Chloride 104 mmol/L (98-107); Chol/HDL Ratio 1.9 (1-3.5); Cholesterol 114 mg/dL (140-200); Creatinine,Serum 0.85 mg/dL (0.70-1.30); Estimated Glomerular Filt Rate 90 ml/min (>60); GFR (African American) 109 ML/MIN (>60); Glucose 116 mg/dL (74-106); HDL Cholesterol 60 mg/dL (27-67); LDL Cholesterol 38 mg/dL (0-130); Potassium 3.6 mmoL/L (3.5-5.1); Sodium 140 mmol/L (136-145); T4 (Thyroxine) 9.8 ug/dl (4.7-13.3); Thyroid Stimulating Hormone 0.89 uIU/ml (0.358-3.740); Total Protein,Serum 6.5 gm/dL (6.4-8.2); Triglycerides 79 mg/dL (30-200); VLDL Cholesterol 16 mg/dL (0-40)
[2018-12-28 09:58] LABS: Hemoglobin A1C 7.6 % (0.0-7.0)
[2018-12-29 12:32] LABS: Microalbumin, Urine 91.9 ug/mL (Not Estab.); Vitamin D 25 Hydroxy 39.3 ng/mL (30.0-100.0)
== END ==
PROVIDERS: Visit Provider Nurse Practitioner Family
DX: E11.9 Type 2 diabetes mellitus without complications (principal); I10 Essential (primary) hypertension; R51 Headache; R53.83 Other fatigue
CPT/HCPCS: 36415; 80053; 80061; 82043; 82652; 83036; 84436; 84443; 85025

== ENCOUNTER → 2019-01-11 07:55 | Outpatient (CLI) | payer MEDICARE, SELFPAY ==
--- NOTE | 2019-01-11 07:57 | MR_ITS ---
PROCEDURE: MR HEAD/BRAIN WO CON CLINICAL INDICATION: headache and eye pressure Headaches behind the eyes with dizziness off balance. COMPARISON: [facility] MR cervical spine wo con from 10/23/2017 TECHNIQUE: Routine multiplanar multi echo sequences are performed without gadolinium enhancement. FINDINGS: No midline shift, mass effect, intracranial hemorrhage, hydrocephalus, or acute infarction is evident. There are few scattered periventricular and subcortical T2 white matter hyperintensities. These are non-specific. Ischemic gliotic change from microvascular disease or migraine headache is considered. The cerebellopontine angles, cerebellum, and brainstem are unremarkable. Flow void is present within the carotid arteries as expected. There is a small amount of fluid signal intensity within the left mastoid sinus. No paranasal sinus air-fluid level is evident. There is mild rightward nasal septal deviation. The pituitary, optic chiasm, corpus callosum, and craniocervical junction have an unremarkable appearance. In the upper cervical spine there is slight reversal of lordosis at C3-C4 with narrowing of the canal at this level and minimal bulging disc. This was present on a previous MRI of 10/23/2017 IMPRESSION: 1. No acute intracranial findings. 2. Scattered periventricular and subcortical T2 white matter hyperintensities which could be seen with ischemic gliotic change from microvascular disease or sequela from migraine headache. Demyelinating process felt to be less likely due to the appearance. 3. Small amount of fluid in left mastoid sinus Dictated by: Ashu Ruiz MD 01/11/2019 16:31 Electronically signed by Ashu Ruiz MD in [place] 01/12/2019 10:46
== END ==
PROVIDERS: PCP Nurse Practitioner Family; Visit Provider Nurse Practitioner Family
DX: R51 Headache (principal)
CPT/HCPCS: 70551

== ENCOUNTER → 2019-01-14 13:00 | Outpatient (CLI) | payer MEDICARE, SELFPAY ==
[2019-01-15 14:48] LABS: Occult Blood,Stool Positive (Negative)
[2019-01-15 15:15] LABS: Occult Blood,Stool Positive (Negative)
== END ==
PROVIDERS: Visit Provider Nurse Practitioner Family
DX: D50.9 Iron deficiency anemia, unspecified (principal)
CPT/HCPCS: 82272; G0328

== ENCOUNTER → 2019-01-15 14:13 | Outpatient (CLI) | payer MEDICARE, SELFPAY ==
[2019-01-15 14:48] LABS: Occult Blood,Stool Positive (Negative)
== END ==
PROVIDERS: Visit Provider Nurse Practitioner Family
DX: D50.9 Iron deficiency anemia, unspecified (principal)
CPT/HCPCS: 82272; G0328

== ENCOUNTER → 2019-03-04 07:51 | Outpatient (CLI) | payer MEDICARE, SELFPAY ==
--- NOTE | 2019-03-04 07:53 | CA_ITS ---
APPROVED REPORT [employer]ating [employer] Supervisor: Malgorzata Gonzalez RVT Laterality: Bilateral Study Quality: Good Indications: Vertigo Risk Factors Hypertension: Hyperlipidemia Doppler Spectral Velocity Analysis ECA (R) 128.10/20.80 cm/s ECA (L) 81.40/16.40 cm/s dICA (R) 85.60/33.00 cm/s dICA (L) 61.20/21.70 cm/s Lopez (R) 83.90/30.20 cm/s Lopez (L) 62.70/20.20 cm/s pICA (R) 67.20/23.00 cm/s pICA (L) 52.30/19.40 cm/s dCCA (R) 85.70/21.40 cm/s dCCA (L) 58.30/14.90 cm/s pCCA (R) 114.80/16.30 cm/s pCCA (L) 84.00/14.60 cm/s Vert (R) 68.50/14.60 cm/s Vert (L) 29.10/11.60 cm/s ICA/CCA 1.00 ICA/CCA 1.08 Conclusion Study suggests less than 20% stenosis of the left internal cartoid artery. Study suggests 20-49% (low end of scale) stenosis of the right internal cartoid artery. Antegrade flow seen bilateral vertebral arteries. Electronically signed by : Ashu Ruiz MD 03/04/2019 16:48:40
== END ==
PROVIDERS: PCP Emergency Medicine; Visit Provider Physician Assistant
DX: R42 Dizziness and giddiness (principal)
CPT/HCPCS: 93880

== ENCOUNTER → 2019-05-27 09:19 | Outpatient (POV) | payer OTHER, MEDICARE, SELFPAY | PROVIDERS: PCP Nurse Practitioner Family; Visit Provider Nurse Practitioner Family | DX: Z00.00 Encounter for general adult medical examination without abnormal findings (principal) ==

== ENCOUNTER 2019-07-07 11:00 | Emergency (ER) | payer MEDICARE, SELFPAY ==
[2019-07-07 11:13] VITALS: BMI 32.5
--- NOTE | 2019-07-07 11:13 | CT_ITS ---
PROCEDURE: CT ABDOMEN PELVIS WO CON CLINICAL INDICATION: r/o stone COMPARISON: ABDPELW CT ABD PELVIS W/ CONTRAST from 03/01/2017 TECHNIQUE: Axial images obtained with sagittal and coronal reformats. All CT scans at the facility use one or more dose reduction, viz: automated exposure control, ma/kV adjustment per patient size (including targeted exams where dose is matched to indication, i.e. head), or iterative reconstruction technique. FINDINGS: Lower thorax: No acute finding there is mild generalized cardiomegaly. ABDOMEN: Liver: The liver is normal in size and shows mild diffuse fatty infiltration. There are no focal lesions. Gallbladder: Post cholecystectomy Pancreas: No masses or peripancreatic fluid collections. Spleen: unremarkable Adrenals: unremarkable Kidneys/ureters: The kidneys are normal size. There are tiny hyper dense exophytic lesions upper and lower pole left kidney and lower pole right kidney all likely representing tiny hemorrhagic cysts. There is a tiny nonobstructing calculus lower pole right kidney. There is no obstructive uropathy of either kidney. ABDOMEN & PELVIS: Stomach bowel: There is a small sliding hiatal hernia. The stomach otherwise appears normal. The small bowel is unremarkable. There is a moderate amount of stool and gas in the ascending and transverse colon with scattered stool and gas seen in descending and sigmoid colon. Peritoneum: No abnormal fluid collections. No obvious inflammatory changes. No free air. Lymph nodes: No enlarged lymph nodes apparent. Vasculature: No evidence of abdominal aortic aneurysm. No retroperitoneal hemorrhage evident. Bones: There prominent multilevel degenerate changes of the lower thoracic and lumbar spine. There prominent hypertrophic facet changes at levels L3-4, L4-5 and L5-S1 PELVIS: Reproductive: unremarkable except for small bilateral inguinal hernias containing fat only. Bladder: The bladder is decompressed, the prostate is upper limits of normal in size. Appendix: I do not definitely identify the appendix but no pericecal inflammatory changes. IMPRESSION: Tiny hyper dense cystic-appearing lesions involving both kidneys likely representing hemorrhagic cysts, tiny nonobstructing calculus lower pole right kidney, no obstructive uropathy of either kidney. Dictated by: Dr. Wiliam Saldivar MD 07/07/2019 12:[address] Wiliam Saldivar MD in [place] 07/07/2019 12:11
[2019-07-07 11:16] VITALS: BP 149/69; PULSE 77; RESP 17; TEMP 36.7; O2SAT 99; BMI 32.5
[2019-07-07 11:19] LABS: Microscopic, Urine URINE MICROSCOPIC (MICROSCOPIC)
[2019-07-07 11:22] LABS: Basophils # 0.1 K/mm3 (0-0.2); Basophils % 0.8 % (0.1-2.0); Eosinophils # 0.1 K/mm3 (0.0-0.4); Eosinophils % 1.5 % (0.1-12.0); Hematocrit 39.9 % (42.0-52.0); Hemoglobin 12.8 g/dL (14.1-18.0); Lymphocytes % 17.1 % (10-50); Mean Corpuscular HGB Conc 32.1 g/dL (31.8-35.4); Mean Corpuscular Hemoglobin 24.4 pg (27.0-31.2); Mean Corpuscular Volume 75.9 fl (80-94); Mean Platelet Volume 8.3 fl (7.4-10.4); Monocytes # 0.4 K/mm3 (0.1-1.0); Monocytes % 6.4 % (1.7-9.3); Neutrophils # 4.4 K/mm3 (1.8-7.8); Neutrophils % 74.3 % (37.0-80.0); Platelet Count 259 K/mm3 (142-424); Red Blood Count 5.26 M/mm3 (4.60-6.20)
[2019-07-07 11:23] LABS: Appearance,Urine CLEAR (Clear); Bilirubin,Urine Negative (Negative); Blood, Urine 3+ (Negative); Color,Urine ORANGE (Yellow); Glucose,Urine (UA) 1+ (Negative); Ketones,Urine TRACE (Negative); Leukocyte Esterase,Urine TRACE (Negative); Nitrate,Urine POSITIVE (Negative); Protein,Urine 3+ (Negative); Specific Gravity, Urine >= 1.030 (1.005-1.030)
--- NOTE | 2019-07-07 11:23 | HMH.EDGENADL ---
ED Disposition Clinical Impression: Multiple renal cysts, Kidney stone on right side Hematuria Qualifiers: Hematuria type: gross Qualified Code(s): R31.0 - Gross hematuria Disposition: Home, Self-Care Condition on Discharge: Fair Instructions: DI for Acute Abdomen Additional Instructions: You have been evaluated for flank pain and blood in your urine, diagnosed with hemorrhagic renal cysts and a small kidney stone. Please take Toradol and Tylenol for pain. Follow-up with Dr. Keller in clinic tomorrow at 1 PM. You need a bladder scan and a urinalysis. Return to the emergency department tonight if you have new or worsening symptoms, fevers, vomiting, uncontrolled pain. Prescriptions: Ketorolac Tromethamine [Toradol 10mg tablet] 10 mg PO Q6H 3 Days #20 tab Transmission Status: Received by [id number] Referrals: Jonah Anthony APRN [Primary Care Provider] - Time of Disposition: 13:51 - Critical Care Critical Care Time: No Attestation: On 07/07/19, the high probability of a clinically significant, sudden or life threatening deterioration of the following system(s) required my full and direct attention, intervention and personal management. The time I documented below is in addition to time spent performing reported procedures but includes the following listed in this critical care notation. Medical Decision Making - Pranav Inquiry Pt receiving controlled substance: Yes Pranav was queried for this patient: Yes Reference #:: [id number] Risks and benefits of using a controlled substance: were discussed with pt by me Comment: PRANAV positive fro tramadol, gabapentin Vital Signs: 07/07/19 11:16 07/07/19 12:30 07/07/19 13:00 Temperature 98.1 F Temperature Source Oral Pulse Rate Pulse Rate [Right Radial] 77 68 88 Respiratory Rate 17 16 Blood Pressure Blood Pressure [Right Arm] 149/69 H 136/68 152/74 H Blood Pressure Mean [Right Arm] 95 90 100 Blood Pressure Position Blood Pressure Position [Right Arm] Sitting Sitting 02 Sat by Pulse Oximetry 99 98 Oxygen Delivery Method Room Air Room Air 07/07/19 14:43 Temperature 98 F Temperature Source Oral Pulse Rate 78 Pulse Rate [Right Radial] Respiratory Rate 16 Blood Pressure 135/84 Blood Pressure [Right Arm] Blood Pressure Mean [Right Arm] Blood Pressure Position Sitting Blood Pressure Position [Right Arm] 02 Sat by Pulse Oximetry Oxygen Delivery Method Room Air - Lab Data Lab Results 07/07/19 11:05: WBC 6.0, RBC 5.26, Hgb 12.8 L, Hct 39.9 L, MCV 75.9 L, MCH 24.4 L, MCHC 32.1, RDW 16.0, Plt Count 259, MPV 8.3, Neut % (Auto) 74.3, Lymph % (Auto) 17.1, [place] % (Auto) 6.4, Eos % (Auto) 1.5, Baso % (Auto) 0.8, Neut # (Auto) 4.4, Lymph # (Auto) 1.0, [place] # (Auto) 0.4, Eos # (Auto) 0.1, Baso # (Auto) 0.1 07/07/19 11:05: Sodium 136, Potassium 3.9, Chloride 104, Carbon Dioxide 21 L, Anion Gap 14.9, BUN 12, Creatinine 0.80, Estimated Creat Clear 103, Estimated GFR 97, Est GFR ( Amer) 117, Glucose 185 H, Calcium 9.0, Total Bilirubin 0.6, AST 49, ALT 33, Alkaline Phosphatase 62, Total Protein 7.4, Albumin 4.4, Globulin 3.0, Albumin/Globulin Ratio 1.5, Amylase 63, Lipase 164 07/07/19 11:13: Urine Color [place], Urine Appearance Clear, Urine pH 5.0, Ur Specific [place] >= 1.030, Urine Protein 3+, Urine Glucose (UA) 1+, Urine Ketones Trace, Urine Blood 3+, Urine Nitrate Positive, Urine Bilirubin Negative, Urine Urobilinogen 4.0, Ur Leukocyte Esterase Trace, Urine RBC 50-100, Urine WBC Occasional, Ur Squamous Epith Cells 5-10, Amorphous Sediment 2+, Urine Bacteria None Result diagrams: 07/07/19 11:05 07/07/19 11:05 Orders (Tests/Meds): ED MEDICATIONS Discontinued Medications Generic Name Dose Route Start Last Admin Trade Name Freq PRN Reason Stop Dose Admin Hydromorphone HCl 0.5 mg 07/07/19 11:28 07/07/19 11:28 Dilaudid 2mg/Ml Syringe IV 07/07/19 11:29 0.5 mg ONCE ONE Administration Hydromorphone HCl 0.5 mg
[2019-07-07 11:28] LABS: Chloride 104 mmol/L (98-107); Sodium 136 mmol/L (136-145)
[2019-07-07 11:29] LABS: Potassium 3.9 mmoL/L (3.5-5.1)
[2019-07-07 11:31] LABS: Amylase 63 U/L (30-110); Anion Gap 14.9 mEq/L (5-15); Blood Urea Nitrogen 12 mg/dl (9-20); Carbon Dioxide 21 mmol/L (22.0-30.0); Creatinine Clearance Estimated 103 mL/min (50-200); Estimated Glomerular Filt Rate 97 ml/min (>60); GFR (African American) 117 ML/MIN (>60)
[2019-07-07 11:32] LABS: Albumin Level 4.4 g/dl (3.5-5.0); Albumin/Globulin Ratio 1.5 (1.1-1.8); Alkaline Phosphatase 62 U/L (38-126); Bilirubin,Total 0.6 mg/dl (0.2-1.3); Glucose 185 mg/dl (74-100); Lipase 164 U/L (23-300); Total Protein,Serum 7.4 g/dl (6.3-8.2)
[2019-07-07 11:32] LABS: WBC,Urine Occasional #/hpf (0-3)
[2019-07-07 11:33] LABS: Alanine Aminotransferase 33 U/L (12-78); Aspartate Amino Transferase 49 U/L (17-59)
[2019-07-07 11:33] LABS: Amorphous Sediment,Urine 2+ /lpf; RBC,Urine 50-100 #/hpf (0-3)
[2019-07-07 12:30] VITALS: BP 136/68; PULSE 68; RESP 16; O2SAT 98
[2019-07-07 13:00] VITALS: BP 152/74; PULSE 88
[2019-07-07 14:43] VITALS: BP 135/84; PULSE 78; RESP 16; TEMP 36.6; O2SAT 98
== END 2019-07-07 14:47 | disposition home or self-care (01) ==
PROVIDERS: Emergency Provider Emergency Medicine; PCP Nurse Practitioner Family
DX: Q61.2 Polycystic kidney, adult type (principal); N20.0 Calculus of kidney; Z87.442 Personal history of urinary calculi; Z79.899 Other long term (current) drug therapy; Z88.0 Allergy status to penicillin; I25.10 Atherosclerotic heart disease of native coronary artery without angina pectoris; I10 Essential (primary) hypertension; E78.5 Hyperlipidemia, unspecified; M19.90 Unspecified osteoarthritis, unspecified site; F41.9 Anxiety disorder, unspecified; F32.9 Major depressive disorder, single episode, unspecified; Z87.39 Personal history of other diseases of the musculoskeletal system and connective tissue
CPT/HCPCS: 74176; 80053; 81001; 82150; 83690; 85025; 96365; 96375; 96376; 99284; J2405

== ENCOUNTER → 2019-07-10 12:45 | Outpatient (CLI) | payer MEDICARE, SELFPAY ==
--- NOTE | 2019-07-10 12:46 | US_ITS ---
PROCEDURE: US URINARY BLADDER CLINICAL INDICATION: hematuria Gross hematuria, left-sided pelvic pain COMPARISON: CT ABDOMEN PELVIS WO CON from 07/07/2019 FINDINGS: Urinary bladder has an unremarkable appearance. Bilateral ureteral jets are present. No obvious mass. The full bladder volume is estimated at 169 mL. Postvoid volume is 13 mL. IMPRESSION: Unremarkable appearing urinary bladder with minimal postvoid residual urine Dictated by: Ashu Ruiz MD 07/10/2019 16:21 Electronically signed by Ashu Ruiz MD in [place] 07/10/2019 16:21
== END ==
PROVIDERS: PCP Nurse Practitioner Family; Visit Provider Physician Assistant
DX: R31.9 Hematuria, unspecified (principal)
CPT/HCPCS: 76857

== ENCOUNTER → 2019-09-06 09:30 | Outpatient (CLI) | payer MEDICARE, SELFPAY ==
[2019-09-06 10:03] LABS: Basophils % 0.6 % (0.1-2.0); Eosinophils # 0.1 K/mm3 (0.0-0.4); Eosinophils % 2.7 % (0.1-12.0); Hematocrit 40.2 % (42.0-52.0); Hemoglobin 13.6 g/dL (14.1-18.0); Lymphocytes # 0.9 K/mm3 (0.7-4.5); Lymphocytes % 19.2 % (10-50); Mean Corpuscular HGB Conc 33.8 g/dL (31.8-35.4); Mean Corpuscular Hemoglobin 25.9 pg (27.0-31.2); Mean Corpuscular Volume 76.9 fl (80-94); Mean Platelet Volume 8.3 fl (7.4-10.4); Monocytes # 0.4 K/mm3 (0.1-1.0); Monocytes % 9.8 % (1.7-9.3); Neutrophils % 67.7 % (37.0-80.0); Platelet Count 205 K/mm3 (142-424); Red Blood Count 5.23 M/mm3 (4.60-6.20); Red Cell Distribution Width 16.7 % (11.5-17.5); White Blood Count 4.5 K/mm3 (4.8-10.8)
[2019-09-06 10:35] LABS: Erythrocyte Sedimentation Rate 17 mm/hr (0-20)
[2019-09-06 10:46] LABS: Alanine Aminotransferase 37 U/L (12-78); Albumin Level 4.5 g/dl (3.5-5.0); Albumin/Globulin Ratio 1.8 (1.1-1.8); Alkaline Phosphatase 66 U/L (38-126); Aspartate Amino Transferase 64 U/L (17-59); Bilirubin,Total 0.7 mg/dl (0.2-1.3); Blood Urea Nitrogen 14 mg/dl (9-20); Calcium 9.3 mg/dl (8.4-10.2); Carbon Dioxide 27 mmol/L (22.0-30.0); Chloride 100 mmol/L (98-107); Chol/HDL Ratio 2.3 (1-3.5); Cholesterol 149 mg/dl (140-200); Estimated Glomerular Filt Rate 96 ml/min (>60); GFR (African American) 117 ML/MIN (>60); Globulin 2.5 g/dL (1.3-3.2); Glucose 174 mg/dl (74-100); HDL Cholesterol 64 mg/dl (40-60); Sodium 137 mmol/L (136-145); Triglycerides 118 mg/dl (30-150); VLDL Cholesterol 24 mg/dL (0-40)
[2019-09-06 10:57] LABS: C-Reactive Protein 5.3 mg/L (0-4); Direct LDL Cholesterol 77.41 mg/dL (100-129)
== END ==
PROVIDERS: Visit Provider Internal Medicine
DX: D89.9 Disorder involving the immune mechanism, unspecified (principal); E78.00 Pure hypercholesterolemia, unspecified; M06.4 Inflammatory polyarthropathy; M06.9 Rheumatoid arthritis, unspecified; Z79.899 Other long term (current) drug therapy
CPT/HCPCS: 36415; 80053; 80061; 85025; 85651; 86140

== ENCOUNTER → 2019-10-11 08:06 | Outpatient (CLI) | payer MEDICARE, SELFPAY ==
[2019-10-11 08:42] LABS: Basophils % 0.3 % (0.1-2.0); Eosinophils # 0.1 K/mm3 (0.0-0.4); Eosinophils % 2.2 % (0.1-12.0); Hematocrit 39.4 % (42.0-52.0); Hemoglobin 13.5 g/dL (14.1-18.0); Lymphocytes # 0.9 K/mm3 (0.7-4.5); Lymphocytes % 16.8 % (10-50); Mean Corpuscular HGB Conc 34.3 g/dL (31.8-35.4); Mean Corpuscular Hemoglobin 26.3 pg (27.0-31.2); Mean Corpuscular Volume 76.7 fl (80-94); Mean Platelet Volume 7.3 fl (7.4-10.4); Monocytes # 0.4 K/mm3 (0.1-1.0); Monocytes % 8.2 % (1.7-9.3); Neutrophils # 3.7 K/mm3 (1.8-7.8); Neutrophils % 72.5 % (37.0-80.0); Platelet Count 184 K/mm3 (142-424); Red Blood Count 5.13 M/mm3 (4.60-6.20); White Blood Count 5.1 K/mm3 (4.8-10.8)
[2019-10-11 09:00] LABS: Chloride 103 mmol/L (98-107)
[2019-10-11 09:01] LABS: Potassium 3.9 mmoL/L (3.5-5.1); Sodium 137 mmol/L (136-145)
[2019-10-11 09:03] LABS: Alanine Aminotransferase 35 U/L (12-78); Alkaline Phosphatase 54 U/L (38-126); Aspartate Amino Transferase 49 U/L (17-59); Bilirubin,Total 1.1 mg/dl (0.2-1.3); Blood Urea Nitrogen 20 mg/dl (9-20); Estimated Glomerular Filt Rate 84 ml/min (>60); GFR (African American) 102 ML/MIN (>60)
[2019-10-11 09:04] LABS: Albumin Level 4.1 g/dl (3.5-5.0); Albumin/Globulin Ratio 1.7 (1.1-1.8); Anion Gap 12.9 mEq/L (5-15); Calcium 8.8 mg/dl (8.4-10.2); Carbon Dioxide 25 mmol/L (22.0-30.0); Chol/HDL Ratio 1.9 (1-3.5); Cholesterol 126 mg/dl (140-200); Globulin 2.4 g/dL (1.3-3.2); Glucose 139 mg/dl (74-100); HDL Cholesterol 67 mg/dl (40-60); Total Protein,Serum 6.5 g/dl (6.3-8.2); Triglycerides 120 mg/dl (30-150); VLDL Cholesterol 24 mg/dL (0-40)
[2019-10-11 09:05] LABS: Creatinine,Urine Random 178 mg/dL (Not Estab.)
[2019-10-11 09:06] LABS: Microalbumin/Creatinine Ratio 65.5
[2019-10-11 09:20] LABS: T4 (Thyroxine) 9.1 ug/dl (5.53-11.0)
[2019-10-11 09:37] LABS: Thyroid Stimulating Hormone 1.08 uIU/mL (0.465-4.68)
[2019-10-11 11:55] LABS: Hemoglobin A1C 8.4 % (4.0-6.0)
[2019-10-12 13:42] LABS: PSA, Free 0.12 ng/mL; Prostate Specific Ag 0.3 ng/mL (0.0-4.0)
== END ==
PROVIDERS: Visit Provider Physician Assistant
DX: D50.9 Iron deficiency anemia, unspecified (principal); E11.9 Type 2 diabetes mellitus without complications; I10 Essential (primary) hypertension; N40.0 Benign prostatic hyperplasia without lower urinary tract symptoms; R05 Cough
CPT/HCPCS: 36415; 80053; 80061; 82043; 82570; 83036; 84153; 84154; 84436; 84443; 85025

== ENCOUNTER → 2019-12-06 08:01 | Outpatient (CLI) | payer MEDICARE, SELFPAY ==
[2019-12-06 08:07] LABS: Microscopic, Urine URINE MICROSCOPIC (MICROSCOPIC)
[2019-12-06 09:13] LABS: Basophils % 0.5 % (0.1-2.0); Eosinophils # 0.1 K/mm3 (0.0-0.4); Eosinophils % 2.8 % (0.1-12.0); Hematocrit 40.9 % (42.0-52.0); Hemoglobin 13.8 g/dL (14.1-18.0); Lymphocytes # 0.8 K/mm3 (0.7-4.5); Lymphocytes % 20.2 % (10-50); Mean Corpuscular HGB Conc 33.7 g/dL (31.8-35.4); Mean Corpuscular Hemoglobin 26.8 pg (27.0-31.2); Mean Corpuscular Volume 79.6 fl (80-94); Mean Platelet Volume 7.6 fl (7.4-10.4); Monocytes # 0.4 K/mm3 (0.1-1.0); Monocytes % 9.2 % (1.7-9.3); Neutrophils # 2.6 K/mm3 (1.8-7.8); Neutrophils % 67.3 % (37.0-80.0); Platelet Count 234 K/mm3 (142-424); Red Blood Count 5.14 M/mm3 (4.60-6.20); Red Cell Distribution Width 15.8 % (11.5-17.5); White Blood Count 3.8 K/mm3 (4.8-10.8)
[2019-12-06 10:19] LABS: Albumin Level 4.2 g/dl (3.5-5.0); Chloride 106 mmol/L (98-107); Potassium 4.2 mmoL/L (3.5-5.1); Sodium 139 mmol/L (136-145)
[2019-12-06 10:22] LABS: Anion Gap 13.2 mEq/L (5-15); Blood Urea Nitrogen 17 mg/dl (9-20); Calcium 9.2 mg/dl (8.4-10.2); Carbon Dioxide 24 mmol/L (22.0-30.0); Estimated Glomerular Filt Rate 96 ml/min (>60); GFR (African American) 117 ML/MIN (>60); Glucose 163 mg/dl (74-100); Phosphorous 3.3 mg/dl (2.5-4.5)
[2019-12-06 10:32] LABS: 25-OH Vitamin D, Total 45.6 ng/mL (30-100)
[2019-12-06 10:47] LABS: Appearance,Urine CLEAR (Clear); Bilirubin,Urine Negative (Negative); Blood, Urine Negative (Negative); Color,Urine YELLOW (Yellow); Glucose,Urine (UA) 2+ (Negative); Ketones,Urine Negative (Negative); Leukocyte Esterase,Urine Negative (Negative); Nitrate,Urine Negative (Negative); PH,Urine 5.5 (5.0-8.5); Protein,Urine 1+ (Negative); Specific Gravity, Urine >= 1.030 (1.005-1.030); Urobilinogen,Urine 0.2 EU/dl (0.2)
[2019-12-06 10:50] LABS: Intact Parathyroid Hormone 26.2 pg/mL (7.5-53.5)
[2019-12-06 10:52] LABS: Amorphous Sediment,Urine 1+ /lpf; Calcium Oxalate Crystals,Urine 2+ /lpf; Squamous Epithelial Cell,Urine Occasional #/hpf (0-5); WBC,Urine Occasional #/hpf (0-3)
[2019-12-06 10:55] LABS: Creatinine,Urine Random 147 mg/dL (Not Estab.)
== END ==
PROVIDERS: Visit Provider Internal Medicine Nephrology
DX: R80.9 Proteinuria, unspecified (principal)
CPT/HCPCS: 36415; 80069; 81001; 82306; 82570; 83970; 84155; 85025

== ENCOUNTER → 2019-12-09 16:03 | Outpatient (POV) | payer OTHER, MEDICARE, SELFPAY | PROVIDERS: Visit Provider Internal Medicine Nephrology | DX: Z00.00 Encounter for general adult medical examination without abnormal findings (principal) ==

== ENCOUNTER → 2019-12-30 08:50 | Outpatient (POV) | payer OTHER, MEDICARE, SELFPAY | PROVIDERS: Visit Provider Nurse Practitioner Family | DX: Z00.00 Encounter for general adult medical examination without abnormal findings (principal) ==

== ENCOUNTER → 2020-01-28 11:00 | Outpatient (POV) | payer OTHER, MEDICARE, SELFPAY | PROVIDERS: Visit Provider Dermatology | DX: Z00.00 Encounter for general adult medical examination without abnormal findings (principal) ==

== ENCOUNTER 2020-02-21 18:03 | Emergency (ER) | payer MEDICARE, SELFPAY ==
[2020-02-21 18:10] VITALS: BP 126/91; PULSE 110; RESP 14; TEMP 38.3; O2SAT 96; BMI 32.5
--- NOTE | 2020-02-21 18:23 | XR_ITS ---
PROCEDURE: XR CHEST PORTABLE Referring Doctor: De Rodrigues Patient Age:69Y CLINICAL HISTORY: COVID EXPOSURE/FEVER , Fever, dyspnea. Nonsmoker COMPARISON: CR CXR2 CHEST-AP VIEW ONLY from 03/01/2017 CR,CT CHESTWO CT chest wo con from 09/08/2017 CR XR CHEST 2V from 02/12/2019 FINDINGS: The lungs are hyperexpanded but hyperlucent upper lung meeks and apices along with coarsening markings towards the lung bases is pattern seen previously and reflects underlying likely emphysematous changes. The heart is normal in size-cardiomediastinal silhouette and pulmonary vascularity are within normal limits. Left hannah is stable. The right hannah is slightly denser and slightly more prominent, but this is most likely due to the portable projection and technique today. Nonetheless a follow-up two-view chest would be recommended over the next 3-4 weeks to better evaluate right hannah-particularly if symptoms persist Superior mediastinum appears stable. No pleural effusion. No pneumothorax. Chest wall unremarkable.. . No focal infiltrate or consolidation. No focal lesion at peripheral lung meeks IMPRESSION: Lung meeks appears stable with no consolidation or acute pneumonia evident Likely underlying emphysematous changes noting mild hyperexpansion towards apices and upper lobes Would note-that the right hannah appears slightly denser and slightly more prominent than previous available CXR studies. This may merely be due to technique-but I would recommend a follow-up PA and lateral over the next a 3-4 weeks to further evaluate this observation to better confirm stability here Dictated by: Kaushik Washington MD 02/22/2020 18:02 Kaushik Washington MD in [place] 02/22/2020 18:02
[2020-02-21 18:41] LABS: UTC Influenza A Antigen Negative (Negative); UTC Influenza B Antigen Negative (Negative)
--- NOTE | 2020-02-21 19:12 | HMH.EDUTC ---
[facility] [place] Clinical Impression: Viral syndrome, Exposure to COVID-19 virus Acute bronchitis Qualifiers: Bronchitis organism: unspecified organism Qualified Code(s): J20.9 - Acute bronchitis, unspecified Disposition: Home, Self-Care Condition on Discharge: Good Instructions: Preventing the Spread of Coronavirus Discharge Instructions Additional Instructions: Drink plenty of fluids. Take tylenol for pain or fever. Take the medications as directed. Follow up with your regular doctor. GO TO THE ER FOR ANY WORSENING SYMPTOMS Prescriptions: Azithromycin [Z-Darius 250mg Tab*] 250 mg PO UD DOSE PK #6 tab Transmission Status: Received by [id number] Referrals: Radha Tinoco PA [Primary Care Provider] - Time of Disposition: : Medical Decision Making - Medical Records Medical records reviewed: No: I reviewed the patient's medical records. - Jevon Inquiry Pt receiving controlled substance: No Vital Signs: 02/21/20 18:10 02/21/20 19:22 Temperature 101.0 F H 101 F H Temperature Source Oral Pulse Rate 110 H Pulse Rate [Right Brachial] 110 H Respiratory Rate 14 14 Blood Pressure 126/91 H Blood Pressure [Right Arm] 126/91 H Blood Pressure Mean [Right Arm] 102 Blood Pressure Source [Right Arm] Automatic Cuff Blood Pressure Position [Right Arm] Sitting 02 Sat by Pulse Oximetry 96 Oxygen Delivery Method Room Air - Lab Data Lab Results 02/21/20 18:39: Influenza Type A Ag Negative, Influenza Type B Ag Negative Orders (Tests/Meds): ED MEDICATIONS Discontinued Medications Generic Name Dose Route Start Last Admin Trade Name Freq PRN Reason Stop Dose Admin Azithromycin 500 mg 02/21/20 19:28 02/21/20 19:25 Azithromycin 250mg Tablet PO 02/21/20 19:29 500 mg ONCE ONE Administration Protocol ORDERS Category Date Time Status Chest XR -- portable [XR chest portable] Stat Exams 02/21/20 18:23 Taken Covid-19 Nasal PCR ([facility]) Routine Lab 02/21/20 18:15 Received - Radiology Data #1 Image(s): Chest Image Reviewed: Yes I reviewed the patient's radiology image Preliminary Findings: No Infiltrates [place]en [facility] [place] - General Stated complaint: Possible COVID Time Seen by Provider: 02/21/20 18:20 Mode of Arrival: Ambulatory Source of Information: Patient Limitations: No Limitations Description of Symptoms (Recalled from Triage Doc. by RN): PATIENT HAS BEEN QUARANTEENED FOR 10 DAYS D/T EXPOSURE; C/O SOA, COUGH, FEVER, BODY ACHES, AND CHEST PRESSURE HEENT Symptoms (Recalled from RN notes): Yes Resp Symptoms (Recalled from RN notes): Yes Skin Symptoms (Recalled from RN notes): No MS Symptoms (Recalled from RN notes): No Functional Status (Recalled from RN notes): WNL - History of Present Illness Provider Complaint: He states that he has felt kind of bad for the past several days. His work at [employer] put him off on quarentine, but he wasn't feeling very bad until today. Today he started having a fever, coughing, body aches and chest congestion. - Related Data Home Medications Medication Instructions Recorded Confirmed tramadol 50 mg tablet 50 mg PO Q4-6H PRN 08/24/17 07/15/19 cyclobenzaprine 5 mg tablet 5 mg PO NEEDED PRN 90 Days #90 10/09/17 07/15/19 dicyclomine 10 mg capsule 10 mg PO NEEDED PRN 90 Days #270 10/09/17 07/15/19 Nystatin [Nystatin Susp 500,000 5 ml PO TID 06/18/19 07/15/19 Units/5mL Udc] Previous Rx's Medication Instructions Recorded simvastatin 20 mg tablet 20 mg PO DAILY #90 tab 03/14/19 losartan 50 mg tablet 50 mg PO DAILY #90 tab 03/29/19 Ketorolac Tromethamine [Toradol 10 mg PO Q6H 3 Days #20 tab 07/07/19 10mg tablet] clopidogrel 75 mg tablet 75 mg PO DAILY #90 tab 11/04/19 nystatin 100,000 unit/gram topical 1 applic TOPICAL BID #15 g 11/27/19 cream pioglitazone 30 mg tablet 30 mg PO DAILY 90 Days #90 tab 11/27/19 mupirocin 2 % topical ointment 1 applic TOPICAL BID #22 g
[2020-02-21 19:22] VITALS: BP 126/91; PULSE 110; RESP 14; TEMP 38.3; O2SAT 96
--- NOTE | 2020-02-21 23:14 | PC.NURSE ---
Positive COVID called from lab, results to Dr Keller and results placed in [facility] for follow up
--- NOTE | 2020-02-22 09:28 | PC.NURSE ---
pt notified of positive covid results
== END 2020-02-21 19:28 | disposition home or self-care (01) ==
PROVIDERS: Emergency Provider Nurse Practitioner Family; PCP Physician Assistant
DX: U07.1 COVID-19 (principal); I25.10 Atherosclerotic heart disease of native coronary artery without angina pectoris; I10 Essential (primary) hypertension; E78.5 Hyperlipidemia, unspecified; Z88.0 Allergy status to penicillin
CPT/HCPCS: 71045; 87804; 99202; U0003

== ENCOUNTER 2020-02-23 17:31 | Observation (INO) | payer MEDICARE, SELFPAY ==
[2020-02-23] VITALS (8 sets, daily range): BP systolic 130–172; BP diastolic 76–102; PULSE 89–106; RESP 17–20; TEMP 37.4–38.7; O2SAT 93–98; BMI 32.5; BMI 32.1
--- NOTE | 2020-02-23 | ECG_ITS ---
APPROVED REPORT Exam: Resting ECG HR:93 bpm ECG Measurements Heart Rate 93 AXES TX 134 P 58 QRSd 86 QRS 49 QT 336 T 32 QTc 417 Conclusion Normal sinus rhythm Nonspecific ST and T wave abnormality Abnormal ECG Electronically signed by : Walker Hill, 02/24/2020 07:22:23
--- NOTE | 2020-02-23 17:48 | XR_ITS ---
PROCEDURE: XR CHEST PORTABLE Referring Doctor: Raymond Almanza Patient Age:69Y CLINICAL HISTORY: SOB cough. Patient coded positive COMPARISON: CR,CT CHESTWO CT chest wo con from 09/08/2017 CR XR CHEST 2V from 02/12/2019 CR XR CHEST PORTABLE from 02/21/2020 FINDINGS: AP upright CXR portable performed with the the the the the slightly lordotic projection today. Compared to February 21 2020 CXR The patient has developed bilateral infiltrates in the interval. The patchy peripheral character of these infiltrates of suggested of suggestive of and could be consistent with a covidi etiology pneumonia. Most prominent is a triangular area opacity/infiltrate a the periphery of the right mid lung which tracks towards the slightly generous right hannah. Questions scant infiltrate at the medial right lung base Left lung: Suggestion of a subtle patchy infiltrate left infrahilar region and left lower lobe partially obscuring the left hemidiaphragm. Also question very very subtle low-density hazy peripheral infiltrate left lung, developing from the level of the left 3rd rib down to the anterior 6-7th rib Stable old hypertrophic changes at the anterior 1st-2nd rib just beneath the right clavicle noted and unchanged since 2019 The heart is upper normal in size. Right hannah is less prominent than it was on February 20 CXR and appears compatible with other prior studies it does remain slightly denser on right than left.. Left hannah stable. Superior mediastinum unremarkable. No pleural effusions. No pneumothorax IMPRESSION: Bilateral infiltrates have developed and become apparent since February 20 CXR . Details in text above Dictated by: Kaushik Washington MD 02/23/2020 20:41 Kaushik Washington MD in [place] 02/23/2020 20:41
--- NOTE | 2020-02-23 17:53 | HMH.EDGENADL ---
ED Disposition Clinical Impression: COVID-19 virus infection, Pneumonia due to COVID-19 virus Disposition: Admitted As Inpatient Condition on Discharge: Serious Referrals: Radha Tinoco PA [Primary Care Provider] - - Critical Care Critical Care Time: No Attestation: On 02/23/20, the high probability of a clinically significant, sudden or life threatening deterioration of the following system(s) required my full and direct attention, intervention and personal management. The time I documented below is in addition to time spent performing reported procedures but includes the following listed in this critical care notation. Medical Decision Making - Medical Records Medical records reviewed: Yes: I reviewed the patient's medical records. MR Comment: Seen in the [facility] on 02/21/2020. Diagnosed with a viral upper respiratory infection and bronchitis. Started on Zithromax. Covid-19 test returned positive. - Jevon Inquiry Pt receiving controlled substance: No Vital Signs: 02/23/20 17:32 02/23/20 17:54 02/23/20 18:02 Temperature 99.4 F Temperature Source Oral Pulse Rate [Left Radial] 106 H 105 H 89 Respiratory Rate 20 Blood Pressure [Right Arm] 140/89 140/82 172/102 H Blood Pressure Mean [Right Arm] 106 101 125 Blood Pressure Source [Right Arm] Automatic Cuff Automatic Cuff Automatic Cuff Blood Pressure Position [Right Arm] Sitting Sitting Sitting 02 Sat by Pulse Oximetry 94 L 94 L 94 L Oxygen Delivery Method Room Air Room Air Room Air Oxygen Flow Rate (LPM) 02/23/20 18:29 Temperature Temperature Source Pulse Rate [Left Radial] 100 H Respiratory Rate Blood Pressure [Right Arm] 140/88 Blood Pressure Mean [Right Arm] 105 Blood Pressure Source [Right Arm] Automatic Cuff Blood Pressure Position [Right Arm] Sitting 02 Sat by Pulse Oximetry 96 Oxygen Delivery Method Nasal Cannula Oxygen Flow Rate (LPM) 2 - Lab Data Lab Results 02/23/20 17:54: WBC 3.8 L, RBC 5.81, Hgb 15.1, Hct 45.7, MCV 78.5 L, MCH 25.9 L, MCHC 33.0, RDW 15.0, Plt Count 225, MPV 8.3, Neut % (Auto) 68.2, Lymph % (Auto) 21.7, Humphreys % (Auto) 9.1, Eos % (Auto) 0.5, Baso % (Auto) 0.5, Neut # (Auto) 2.6, Lymph # (Auto) 0.8, Humphreys # (Auto) 0.3, Eos # (Auto) 0.0, Baso # (Auto) 0.0 02/23/20 17:54: Sodium 135 L, Potassium 3.2 L, Chloride 98, Carbon Dioxide 27, Anion Gap 13.2, BUN 16, Creatinine 1.00, Estimated Creat Clear 101, Estimated GFR 75, Est GFR ( Amer) 90, Glucose 162 H, Calcium 9.3, Total Bilirubin 0.9, AST 65 H, ALT 48, Alkaline Phosphatase 69, Troponin I < 0.01, Total Protein 7.8, Albumin 4.4, Globulin 3.4 H, Albumin/Globulin Ratio 1.3 02/23/20 17:54: Lactate 2.2 H 02/23/20 17:54: SARS-CoV-2 IgG Ab (Rapid) Negative, SARS-CoV-2 IgM Ab (Rapid) Negative Result diagrams: 02/23/20 17:54 02/23/20 17:54 Orders (Tests/Meds): ED MEDICATIONS Generic Name Dose Route Start Last Admin Trade Name Freq PRN Reason Stop Dose Admin Levofloxacin/Dextrose 750 mg in 150 mls @ 100 mls/hr 02/23/20 18:15 02/23/20 18:19 Levofloxacin 750mg/150ml Premix IV 03/08/20 18:14 100 mls/hr Q24H SWATHI Administration Protocol Discontinued Medications Generic Name Dose Route Start Last Admin Trade Name Freq PRN Reason Stop Dose Admin Potassium Chloride 20 meq 02/23/20 18:28 02/23/20 18:48 Potassium Chloride 20meq Tab PO 02/23/20 18:29 20 meq ONCE ONE Administration ORDERS Category Date Time Status CXR --portable [XR chest portable] Stat Exams 02/23/20 17:48 Taken Procalcitonin Stat Lab 02/23/20 18:58 Ordered Troponin I Q3H Lab 02/23/20 21:00 Ordered Troponin I Q3H Lab 02/24/20 00:00 Ordered Blood Culture Stat Micro 02/23/20 17:54 Received - Radiology Data #1 Image(s): Chest Image Reviewed: Yes I reviewed the patient's radiology image Bilateral infiltrates - ECG Data Tracing #1 EKG interpreted by Raymond Almanza MD: Rhythm: sinus Rate: 93 [place]: normal Ectopy: none Con
--- NOTE | 2020-02-23 17:53 | PC.NURSE ---
Rad at bedside
[2020-02-23 18:13] LABS: Chloride 98 mmol/L (98-107); Sodium 135 mmol/L (136-145)
[2020-02-23 18:14] LABS: Basophils % 0.5 % (0.1-2.0); Eosinophils % 0.5 % (0.1-12.0); Hematocrit 45.7 % (42.0-52.0); Hemoglobin 15.1 g/dL (14.1-18.0); Lymphocytes # 0.8 K/mm3 (0.7-4.5); Lymphocytes % 21.7 % (10-50); Mean Corpuscular Hemoglobin 25.9 pg (27.0-31.2); Mean Corpuscular Volume 78.5 fl (80-94); Mean Platelet Volume 8.3 fl (7.4-10.4); Monocytes # 0.3 K/mm3 (0.1-1.0); Monocytes % 9.1 % (1.7-9.3); Neutrophils # 2.6 K/mm3 (1.8-7.8); Neutrophils % 68.2 % (37.0-80.0); Platelet Count 225 K/mm3 (142-424); Potassium 3.2 mmoL/L (3.5-5.1); Red Blood Count 5.81 M/mm3 (4.60-6.20); White Blood Count 3.8 K/mm3 (4.8-10.8)
[2020-02-23 18:16] LABS: Alanine Aminotransferase 48 U/L (12-78); Alkaline Phosphatase 69 U/L (38-126); Anion Gap 13.2 mEq/L (5-15); Aspartate Amino Transferase 65 U/L (17-59); Bilirubin,Total 0.9 mg/dl (0.2-1.3); Blood Urea Nitrogen 16 mg/dl (9-20); Carbon Dioxide 27 mmol/L (22.0-30.0); Creatinine Clearance Estimated 101 mL/min (50-200); Estimated Glomerular Filt Rate 75 ml/min (>60); GFR (African American) 90 ML/MIN (>60)
[2020-02-23 18:17] LABS: Albumin Level 4.4 g/dl (3.5-5.0); Albumin/Globulin Ratio 1.3 (1.1-1.8); Calcium 9.3 mg/dl (8.4-10.2); Globulin 3.4 g/dL (1.3-3.2); Glucose 162 mg/dl (74-100); Total Protein,Serum 7.8 g/dl (6.3-8.2)
[2020-02-23 18:18] LABS: Lactic Acid 2.2 mmol/L (0.7-2.1)
--- NOTE | 2020-02-23 18:32 | PC.NURSE ---
gas appliance installer for Dr Keller paged.
[2020-02-23 18:35] LABS: Coronavirus 19 IgG Antibody Negative (Negative); Coronavirus 19 IgM Antibody Negative (Negative); Troponin I < 0.01 ng/ml (0.00-0.034)
[2020-02-23 19:35] LABS: Reflex Lactic Add Lactic Reflex
[2020-02-23 19:57] LABS: Procalcitonin 0.169 ng/mL (0.0-2.0)
[2020-02-23 21:46] LABS: Lactic Acid Follow Up (RFLX 1) 1.2 mmol/L (0.7-2.1)
[2020-02-24] VITALS: BP 144/86; PULSE 90; RESP 18; TEMP 36.2; O2SAT 93
[2020-02-24 04:00] VITALS: BP 142/86; PULSE 76; RESP 17; TEMP 36.9; O2SAT 93
--- NOTE | 2020-02-24 05:27 | PC.NURSE ---
Addendum entered by Lourdes Evans RN 02/24/20 05:48: In addition pt was febrile x1 this shift with a temp of 101.6. PRN Tylenol administered with favorable results. Pt did request an incentive spirometer this shift and was given one along with being educated of proper use. At best pt can reach 1000 on IS. Original Note: Pt is A&Ox4. Pt has rested well this shift. Lung sounds diminished t/o with crackles heard at bilat bases per auscultation. Pt continues to be on 2L NC with 02 sats between 93-96%. Abdomen is soft, round and non tender with active bowel sounds in all 4 quads. Pt is urinating clear, dark yasmeen urine per urinal. No BM noted this shift. No other acute changes or complaints at this time.
[2020-02-24 05:47] VITALS: BMI 32.1
--- NOTE | 2020-02-24 07:33 | HMH.PHAVTE ---
[facility] VTE Monitoring - Patient Demographics Admission date: 02/23/20 Report Date: 02/24/20 Time: 07:34 Allergies/Adverse Reactions: Patient Allergies Penicillins [PENICILLINS] Allergy (Unknown, Verified 12/09/19 10:54) I-ITCHING Height: 1.75 m Weight: 98.883 kg Patient Problems: Current Active Problems COVID-19 virus infection (Acute) Pneumonia due to COVID-19 virus (Acute) - VTE Risk Labs: VTE Related Lab Results Hgb 15.1 g/dL (14.1-18.0) 02/23/20 17:54 Hct 45.7 % (42.0-52.0) 02/23/20 17:54 Plt Count 225 K/mm3 (142-424) 02/23/20 17:54 BUN 16 mg/dl (9-20) 02/23/20 17:54 Creatinine 1.00 mg/dl (0.66-1.25) 02/23/20 17:54 Estimated Creat Clear 101 mL/min (50-200) 02/23/20 17:54 VTE Score: 5 VTE Risk Level: Low Risk - Prophylaxis VTE Prophylaxis Ordered?: Yes Types of VTE Prophylaxis: TEDS Thigh High, TEDS Knee High Location of Applied Device: Bilateral Lower Extremeties Pharmacologic Type: Enoxaparin
[2020-02-24 08:00] VITALS: BP 143/78; PULSE 72; RESP 18; TEMP 36.6; O2SAT 94
--- NOTE | 2020-02-24 08:25 | HMH.PHAINT ---
Completed home medication reconciliation using list from last visit to see cardiology in November of 2019. Pt has not seen primacy care provider since June.
[2020-02-24 12:00] VITALS: BP 121/88; PULSE 75; RESP 20; TEMP 36.8; O2SAT 95
--- NOTE | 2020-02-24 15:03 | HMH.HP ---
*Admission Date: 02/23/20 *Chief complaint: sob *History of present illness: 69 yr old male presents to ed with c/o of COVID-19 and is having shortness of breath. Patient states it started on Monday night and Monday he began getting symptomatic on Monday, 6 days ago. Patient states He has had a cough, no appetite,headache and diarrhea. Patient states he had a blood test for COVID-19 on Monday and it was negative t the health department. He went to work on Monday but they would not let him work at [employer] because he is symptomatic with three of the symptoms. Patient states he came into the urgent treatment center here 2 days ago on 02/21/2020 and was diagnosed with bronchitis and was started on Zithromax, chest x-ray was unremarkable and his Covid test returned positive the next day. Since sat he has been getting worse, increasing shortness of breath, feels like he is hyperventilating and Cough is minimally productive. Patient states he was exposed at [employer] numerous members are positive. Patient admitted for hanna pneumonia r/t covid 19. placed on [facility] History I have reviewed the patient's past medical history: Yes Medical History: Reports:: Anxiety, Coronary Artery Disease, Depression, Diabetes Mellitus Type 2, Hiatal Hernia, Hyperlipidemia, Hypertension, Kidney Stones Denies:: Cancer, Deep Vein Thrombosis, Diabetes Mellitus Type 1, Internal Pacemaker, MRSA, Seizures, Transient Ischemic Attacks (TIA) *Have you ever received a pneumonia vaccine?: No *Have you received a flu vaccine this season?: No Other Medical History: Reports: Anemia, Arthritis, Sinus Problems, Other Laterality Cases: Right: Arthroscopy Shoulder Other Surgeries: Yes: No Previous Surgery, Cardiac Catheterization, Cholecystectomy, Colonoscopy, Coronary Stent, Hernia Repair, Other. No: Pacemaker Amputation: No Fractures: Yes - *Social History Last grade of school completed: High school graduate Smoking Status: Never smoker Alcohol Intake: never Alcohol Intake Frequency:: other Substance Use Type: denies use *Occupational Status:: retired Housing: house Household Members: spouse, children *Travel in the last 8 weeks: None - Psychiatric History Pschychiatric History:: Reports:: Anxiety, Depression Family Hx:: Cancer, Diabetes, Heart Attack, Hypertension Review of Systems - Review of Systems Review of systems:: pertinent systems reviewed and negative unless documented below - Constitutional Reports fever(s), Reports malaise, Denies body ache(s) - Eyes Denies blind spots - ENT Reports headache(s), Reports sore throat, Denies bleeding gums - *Cardiovascular Reports shortness of breath, Reports shortness of breath with activity - *Respiratory Reports chest congestion, Reports cough, Reports shortness of breath, Reports shortness of breath with activity - *Gastrointestinal Reports loose stools, Denies nausea, Denies vomiting - *Genitourinary Denies urinary frequency - *Musculoskeletal Denies joint pain - Integumentary/Breasts Denies rash - *Neurologic Reports headache(s), Denies abnormal hearing - Psychiatric Denies anxiety - Endocrine Denies increased urination - Hematologic/Lymphatic Denies easy bruising - Allergic/Immunologic Denies itchy eyes Meds Home Medications Medication Instructions Recorded Confirmed Type tramadol 50 mg tablet 50 mg PO Q4-6H PRN 08/24/17 02/23/20 History cyclobenzaprine 5 mg tablet 5 mg PO NEEDED PRN 90 Days #90 10/09/17 02/23/20 History dicyclomine 10 mg capsule 10 mg PO NEEDED PRN 90 Days #270 10/09/17 02/23/20 History simvastatin 20 mg tablet 20 mg PO DAILY #90 tab 03/14/19 02/23/20 Rx losartan 50 mg tablet 50 mg PO DAILY #90 tab 03/29/19 02/23/20 Rx Nystatin [Nystatin Susp 500,000 5 ml PO TID 06/18/19 02/23/20 History Units/5mL Udc] Clopidogrel Bisulfate [Plavix] 75 mg PO DAILY 02/23/20 02/23/20 History Pioglitazone HCl 30 mg PO DAILY 02/23/20 02/23/20 History Allergies Allergy/A
--- NOTE | 2020-02-24 15:32 | PC.NURSE ---
PATIEN A&O X4, LUNGS DIMINISHED THROUGHOUT, PULSES EQUAL. PATIENT AMBULATES IN ROOM TO BEDSIDE COMMODE, TOLERATES WELL. PATIENT HAS HAD 2 EPISODE OF LIQUID STOOL, BRIGHT RED BLOOD NOTED, MD AWARE. PATIENT UP TO CHAIR. TOLERATING WELL. NON PRODUCTIVE INTERMITTENT COUGH NOTED. NO OTHER CONCERNS AT THIS TIME.
[2020-02-24 16:00] VITALS: BP 127/74; PULSE 75; RESP 18; TEMP 36.8; O2SAT 93
[2020-02-24 16:29] VITALS: BMI 32.3
[2020-02-24 20:00] VITALS: BP 129/70; PULSE 73; RESP 18; TEMP 36.4; O2SAT 93
[2020-02-25] VITALS: BP 158/95; PULSE 68; RESP 18; TEMP 36.6; O2SAT 91
--- NOTE | 2020-02-25 03:50 | PC.NURSE ---
Pt has rested well this shift. Pt is A&Ox4. Lung sounds are diminished t/o with fine crackles heard at bilat bases. Pt has had a nonproductive cough this shift. Specimen cup placed at bedside for sputum sample and pt was educated to use if cough became productive. Pt continues to be on RA with o2 sats between 92-95%. Active bowel sounds in all 4 quads. Pt has had 2 small, loose BM's this shift. Pt continues to use the urinal and is urinating clear, dark yellow urine. No other complaints or acute changes at this time. Will continue to monitor.
[2020-02-25 04:00] VITALS: BP 132/77; PULSE 78; RESP 18; TEMP 36.3; O2SAT 93
[2020-02-25 04:52] VITALS: BMI 32.3
[2020-02-25 05:23] LABS: Chloride 107 mmol/L (98-107); Sodium 136 mmol/L (136-145)
[2020-02-25 05:25] LABS: Basophils % 0.3 % (0.1-2.0); Eosinophils % 0.1 % (0.1-12.0); Hematocrit 40.8 % (42.0-52.0); Hemoglobin 13.5 g/dL (14.1-18.0); Lymphocytes # 0.5 K/mm3 (0.7-4.5); Lymphocytes % 13.8 % (10-50); Mean Corpuscular HGB Conc 33.2 g/dL (31.8-35.4); Mean Corpuscular Hemoglobin 25.8 pg (27.0-31.2); Mean Corpuscular Volume 77.7 fl (80-94); Mean Platelet Volume 9.2 fl (7.4-10.4); Monocytes # 0.3 K/mm3 (0.1-1.0); Monocytes % 9.2 % (1.7-9.3); Neutrophils # 2.8 K/mm3 (1.8-7.8); Neutrophils % 76.6 % (37.0-80.0); Platelet Count 220 K/mm3 (142-424); Red Blood Count 5.25 M/mm3 (4.60-6.20); Red Cell Distribution Width 14.4 % (11.5-17.5); White Blood Count 3.7 K/mm3 (4.8-10.8)
[2020-02-25 05:26] LABS: Alanine Aminotransferase 33 U/L (12-78); Albumin Level 3.6 g/dl (3.5-5.0); Albumin/Globulin Ratio 1.2 (1.1-1.8); Alkaline Phosphatase 60 U/L (38-126); Anion Gap 8.9 mEq/L (5-15); Aspartate Amino Transferase 48 U/L (17-59); Bilirubin,Total 0.5 mg/dl (0.2-1.3); Blood Urea Nitrogen 20 mg/dl (9-20); Carbon Dioxide 23 mmol/L (22.0-30.0); Creatinine Clearance Estimated 100 mL/min (50-200); Estimated Glomerular Filt Rate 96 ml/min (>60); GFR (African American) 117 ML/MIN (>60); Globulin 2.9 g/dL (1.3-3.2); Glucose 161 mg/dl (74-100); Total Protein,Serum 6.5 g/dl (6.3-8.2)
[2020-02-25 05:29] LABS: Potassium 2.9 mmoL/L (3.5-5.1)
[2020-02-25 05:41] LABS: Calcium 8.3 mg/dl (8.4-10.2)
[2020-02-25 07:55] VITALS: BP 147/83; PULSE 80; RESP 16; TEMP 36.8; O2SAT 97
[2020-02-25 08:00] VITALS: O2SAT 94
--- NOTE | 2020-02-25 08:53 | XR_ITS ---
PROCEDURE: XR CHEST PORTABLE CLINICAL HISTORY: increased cough Pneumonia COMPARISON: CR,CT CHESTWO CT chest wo con from 09/08/2017 CR XR CHEST 2V from 02/12/2019 CR XR CHEST PORTABLE from 02/21/2020 CR XR CHEST PORTABLE from 02/23/2020 FINDINGS: The cardiomediastinal silhouette and pulmonary vascularity are within normal limits. There is diffuse bilateral alveolar disease in the right upper lobe, left upper lobe and left lower lobe consistent with bilateral pneumonia which is not significantly changed from 02/23/2020. No obvious effusion or pneumothorax. No acute bony abnormalities. Postsurgical changes right shoulder. IMPRESSION: No change bilateral pneumonia Dictated by: Ashu Ruiz MD 02/25/2020 11:47 Ashu Ruiz MD in [place] 02/25/2020 11:47
--- NOTE | 2020-02-25 09:59 | PC.NURSE ---
Dr. Keller rounded on patient at 0900. Patient was complaining of excessive coughing. Dr. Keller ordered patient Tessalon pearls 100mg 1 tab q8h prn for cough. Order faxed to pharmacy.
--- NOTE | 2020-02-25 11:09 | PC.NURSE ---
Sent the sputum culture down to lab. Lab called back an stated that the sputum culture was not enough. Verbal understanding
--- NOTE | 2020-02-25 11:56 | HMH.DCSUM ---
General - General Admission date:: 02/23/20 Discharge date: 02/25/20 HPI HPI: 69 yr old male presents to ed with c/o of COVID-19 and is having shortness of breath. Patient states it started on Monday night and Monday he began getting symptomatic on Monday, 6 days ago. Patient states He has had a cough, no appetite,headache and diarrhea. Patient states he had a blood test for COVID-19 on Monday and it was negative t the health department. He went to work on Monday but they would not let him work at [employer] because he is symptomatic with three of the symptoms. Patient states he came into the urgent treatment center here 2 days ago on 02/21/2020 and was diagnosed with bronchitis and was started on Zithromax, chest x-ray was unremarkable and his Covid test returned positive the next day. Since sat he has been getting worse, increasing shortness of breath, feels like he is hyperventilating and Cough is minimally productive. Patient states he was exposed at [employer] numerous members are positive. Patient admitted for hanna pneumonia r/t covid 19. placed on Hospital Course Hospital Course: 69 yr old male presents to ed with c/o of COVID-19 and is having shortness of breath. Patient states it started on Monday night and Monday he began getting symptomatic on Monday, 6 days ago. Patient states He has had a cough, no appetite,headache and diarrhea. Patient states he had a blood test for COVID-19 on Monday and it was negative t the health department. He went to work on Monday but they would not let him work at [employer] because he is symptomatic with three of the symptoms. Patient states he came into the urgent treatment center here 2 days ago on 02/21/2020 and was diagnosed with bronchitis and was started on Zithromax, chest x-ray was unremarkable and his Covid test returned positive the next day. Since sat he has been getting worse, increasing shortness of breath, feels like he is hyperventilating and Cough is minimally productive. Patient states he was exposed at [employer] numerous members are positive. Patient admitted for bilat pneumonia r/t covid 19. placed on Today he is sitting up in the chair without any respiratory distress noted. He has been on room air during the last 24 ours of his stay. He was febrile 02/23/2020 with a temperature of 101.6, and he has been afebrile since. He does report a non-productive cough starting last HS. He is asking when he will be discharged home explained to him we will obtain a chest x-ray reevaluate and possibly discharge today. He reports he is going to be going home his is Covid positive also and they will be quarantined together in their house. He denies N/V/D, fever/chills/body aches, SOA, or CP. 02/25/20 CXR: FINDINGS: The cardiomediastinal silhouette and pulmonary vascularity are within normal limits. There is diffuse bilateral alveolar disease in the right upper lobe, left upper lobe and left lower lobe consistent with bilateral pneumonia which is not significantly changed from 02/23/2020. No obvious effusion or pneumothorax. No acute bony abnormalities. Postsurgical changes right shoulder. IMPRESSION: No change bilateral pneumonia Dictated by: Joseph, He has received remdesivir and steroids IV during his stay as well as Levaquin IV. 1. We will discharge home today 2. Levaquin 750 mg daily x8 days 3. Tessalon 100mg Q8 PRN 4. Follow-up with primary care in 2 weeks Objective Vital signs: Temp Pulse Resp BP Pulse Ox 98.3 F 80 16 147/83 H 94 L 02/25/20 07:55 02/25/20 07:55 02/25/20 07:55 02/25/20 07:55 02/25/20 08:00 no acute distress - *Routine HEENT Exam Head: Present: normocephalic Eye: Present: EOMI ENT: Present: mucous membranes moist - *Routine Neck Exam Present: trachea midline. Absent: tracheal deviation - *Routine Respiratory Exam Present: CTA bilaterally. Absent: accessory muscle use, patient mechanically ventila
[2020-02-25 12:00] VITALS: BP 99/83; PULSE 95; RESP 18; TEMP 37.2; O2SAT 95
[2020-02-26 16:46] LABS: POC Glucose,Bedside 255 (70-110)
[2020-02-26 16:46] LABS: POC Glucose,Bedside 203 (70-110)
[2020-02-26 16:46] LABS: POC Glucose,Bedside 184 (70-110)
[2020-02-26 16:46] LABS: POC Glucose,Bedside 210 (70-110)
[2020-02-26 16:46] LABS: POC Glucose,Bedside 191 (70-110)
[2020-02-26 16:46] LABS: POC Glucose,Bedside 158 (70-110)
== END 2020-02-25 13:15 | disposition home or self-care (01) ==
LOC: ER 18:43 → ICU 02-24 07:59
PROVIDERS: Nurse Practitioner Family; Admitting Provider Family Medicine; Emergency Provider Emergency Medicine; PCP Physician Assistant; Visit Provider Emergency Medicine
DX: U07.1 COVID-19 (principal); J12.89 Other viral pneumonia; I11.0 Hypertensive heart disease with heart failure; I50.30 Unspecified diastolic (congestive) heart failure; I25.10 Atherosclerotic heart disease of native coronary artery without angina pectoris; Z95.5 Presence of coronary angioplasty implant and graft; N40.0 Benign prostatic hyperplasia without lower urinary tract symptoms; D50.9 Iron deficiency anemia, unspecified; Z79.02 Long term (current) use of antithrombotics/antiplatelets; Z79.899 Other long term (current) drug therapy; Z79.84 Long term (current) use of oral hypoglycemic drugs
CPT/HCPCS: 71045; 80053; 82962; 83605; 83735; 84145; 84484; 85025; 86328; 87040; 87804; 93005; 94760; 96365; 99202; 99284; G0378; J1956; U0003

== ENCOUNTER 2020-02-28 11:46 | Emergency (ER) | payer MEDICARE, SELFPAY ==
[2020-02-28] VITALS (7 sets, daily range): BP systolic 139–161; BP diastolic 77–87; PULSE 60–103; RESP 17–21; TEMP 36.8–37; O2SAT 90–94; BMI 32.1
--- NOTE | 2020-02-28 12:09 | XR_ITS ---
PROCEDURE: XR CHEST PORTABLE CLINICAL HISTORY: cough COMPARISON: 02/25/2020 FINDINGS: The cardiomediastinal silhouette and pulmonary vascularity are within normal limits. There is there is patchy bilateral alveolar opacification in the right upper lobe, left upper and left lower lobe laterally, consistent with bilateral pneumonia. This is overall not significantly changed. No acute bony abnormalities. IMPRESSION: No change in multi segmental pneumonia Dictated by: Ashu Ruiz 02/28/2020 13:15 Ashu Ruiz in [facility] 02/28/2020 13:15
--- NOTE | 2020-02-28 12:13 | HMH.EDWEAK ---
ED Disposition Clinical Impression: Bronchitis due to COVID-19 virus, Hypokalemia Disposition: Home, Self-Care Condition on Discharge: Good Instructions: Preventing the Spread of Coronavirus Discharge Instructions Prescriptions: Hydrocodone/Chlorphen P-Stirex [Tussionex Pennkinetic Susp] 5 ml PO BID #50 ml Prescription Printed Referrals: Radha Tinoco PA [Primary Care Provider] - - Critical Care Critical Care Time: No Attestation: On 02/28/20, the high probability of a clinically significant, sudden or life threatening deterioration of the following system(s) required my full and direct attention, intervention and personal management. The time I documented below is in addition to time spent performing reported procedures but includes the following listed in this critical care notation. Medical Decision Making - Medical Records Medical records reviewed: Yes: I reviewed the patient's medical records. - Jevon Inquiry Pt receiving controlled substance: No Vital Signs: 02/28/20 11:47 02/28/20 12:07 02/28/20 12:36 Temperature 98.6 F Temperature Source Oral Pulse Rate [Left Radial] 100 H 98 H 60 Respiratory Rate 21 Blood Pressure [Right Arm] 139/81 142/82 H 139/84 Blood Pressure Mean [Right Arm] 100 102 102 Blood Pressure Source [Right Arm] Automatic Cuff Automatic Cuff Automatic Cuff Blood Pressure Position [Right Arm] Sitting Sitting Sitting 02 Sat by Pulse Oximetry 91 L 90 L 93 L Oxygen Delivery Method Room Air Room Air Nasal Cannula Oxygen Flow Rate (LPM) 2 02/28/20 13:03 02/28/20 14:30 02/28/20 14:41 Temperature Temperature Source Pulse Rate [Left Radial] 103 H Respiratory Rate Blood Pressure [Right Arm] 139/80 161/87 H Blood Pressure Mean [Right Arm] 99 111 Blood Pressure Source [Right Arm] Automatic Cuff Blood Pressure Position [Right Arm] Sitting 02 Sat by Pulse Oximetry 93 L 92 L Oxygen Delivery Method Nasal Cannula Room Air Oxygen Flow Rate (LPM) 2 - Lab Data Lab Results 02/28/20 12:42: Specimen Source R brachial, O2 % Room air, ABG pH 7.49 H, ABG pCO2 26.7 L, ABG pO2 51.8 L, ABG HCO3 20.0 L, ABG Total CO2 20.8 L, ABG O2 Saturation 89 L, ABG Base Excess -3.3 L 02/28/20 14:29: WBC 7.6, RBC 5.54, Hgb 14.4, Hct 42.9, MCV 77.4 L, MCH 25.9 L, MCHC 33.5, RDW 14.8, Plt Count 342 D, MPV 8.6, Neut % (Auto) 85.2 H, Lymph % (Auto) 6.7 L, [place] % (Auto) 6.9, Eos % (Auto) 0.9, Baso % (Auto) 0.2, Neut # (Auto) 6.5, Lymph # (Auto) 0.5 L, [place] # (Auto) 0.5, Eos # (Auto) 0.1, Baso # (Auto) 0.0, Total Counted 100, Neutrophils % (Manual) 88 H, Lymphocytes % (Manual) 3 L, Monocytes % (Manual) 9, Platelet Estimate Normal, RBC Morphology Normal 02/28/20 14:29: Sodium 135 L, Potassium 2.5 L*, Chloride 97 L, Carbon Dioxide 25, BUN 17, Creatinine 1.00, Estimated Creat Clear 100, Estimated GFR 75, Est GFR ( Amer) 90, Glucose 169 H, Calcium 8.8, Total Bilirubin 1.2, AST 49, ALT 39, Alkaline Phosphatase 72, Total Protein 7.6, Albumin 4.0, Globulin 3.6 H, Albumin/Globulin Ratio 1.1 Result diagrams: 02/28/20 14:29 02/28/20 14:29 Orders (Tests/Meds): ED MEDICATIONS Generic Name Dose Route Start Last Admin Trade Name Freq PRN Reason Stop Dose Admin Sodium Chloride 1,000 mls @ 999 mls/hr 02/28/20 14:15 02/28/20 14:38 Sod Chlor 0.9% 1000ml Bag IV 02/28/20 15:15 999 mls/hr .Q1H1M SWATHI Administration Discontinued Medications Generic Name Dose Route Start Last Admin Trade Name Freq PRN Reason Stop Dose Admin Potassium Chloride 40 meq 02/28/20 15:05 Potassium Chloride 20meq Tab PO 02/28/20 15:06 ONCE ONE Promethazine HCl/Codeine 5 ml 02/28/20 13:12 02/28/20 13:18 Promethazine W/Codeine 6.25mg/10mg 5ml Udc PO 02/28/20 13:13 5 ml ONCE ONE Administration ORDERS Category Date Time Status Comprehensive Metabolic Panel Stat Lab 02/28/20 14:29 Results - Radiology Data #1 Image(s): Chest Image Reviewed: Yes I reviewed the
--- NOTE | 2020-02-28 12:26 | PC.NURSE ---
Resp at bedside for blood gas.
--- NOTE | 2020-02-28 12:41 | PC.NURSE ---
rad at bedside
[2020-02-28 12:44] LABS: ABG Base Excess -3.3 mmol/L (-2.4-2.3); ABG Oxygen Saturation 89 % (90-100); ABG PCO2 26.7 mmhg (35.0-45.0); ABG PH 7.49 mmol/L (7.35-7.45); ABG PO2 51.8 mmhg (80-100); ABG TCO2 20.8 mmhg (23-27)
[2020-02-28 12:45] LABS: Oxygen ROOM AIR %; Source R BRACHIAL
--- NOTE | 2020-02-28 13:14 | PC.NURSE ---
Pt coughing violently, aware and has consulted with Pharmacy about medicine.
[2020-02-28 14:39] LABS: Basophils % 0.2 % (0.1-2.0); Eosinophils # 0.1 K/mm3 (0.0-0.4); Eosinophils % 0.9 % (0.1-12.0); Hematocrit 42.9 % (42.0-52.0); Hemoglobin 14.4 g/dL (14.1-18.0); Lymphocytes # 0.5 K/mm3 (0.7-4.5); Lymphocytes % 6.7 % (10-50); Mean Corpuscular HGB Conc 33.5 g/dL (31.8-35.4); Mean Corpuscular Hemoglobin 25.9 pg (27.0-31.2); Mean Corpuscular Volume 77.4 fl (80-94); Mean Platelet Volume 8.6 fl (7.4-10.4); Monocytes # 0.5 K/mm3 (0.1-1.0); Monocytes % 6.9 % (1.7-9.3); Neutrophils # 6.5 K/mm3 (1.8-7.8); Neutrophils % 85.2 % (37.0-80.0); Platelet Count 342 K/mm3 (142-424); Red Blood Count 5.54 M/mm3 (4.60-6.20); Red Cell Distribution Width 14.8 % (11.5-17.5); White Blood Count 7.6 K/mm3 (4.8-10.8)
[2020-02-28 14:41] LABS: MANUAL DIFFERENTIAL MANUAL DIFFERENTIAL (MANUAL DIFF)
[2020-02-28 14:46] LABS: Chloride 97 mmol/L (98-107); Sodium 135 mmol/L (136-145)
[2020-02-28 14:49] LABS: Alanine Aminotransferase 39 U/L (12-78); Albumin/Globulin Ratio 1.1 (1.1-1.8); Alkaline Phosphatase 72 U/L (38-126); Aspartate Amino Transferase 49 U/L (17-59); Bilirubin,Total 1.2 mg/dl (0.2-1.3); Blood Urea Nitrogen 17 mg/dl (9-20); Carbon Dioxide 25 mmol/L (22.0-30.0); Creatinine Clearance Estimated 100 mL/min (50-200); Estimated Glomerular Filt Rate 75 ml/min (>60); GFR (African American) 90 ML/MIN (>60); Globulin 3.6 g/dL (1.3-3.2); Total Protein,Serum 7.6 g/dl (6.3-8.2)
[2020-02-28 14:50] LABS: Calcium 8.8 mg/dl (8.4-10.2); Glucose 169 mg/dl (74-100); Potassium 2.5 mmoL/L (3.5-5.1)
--- NOTE | 2020-02-28 14:50 | PC.NURSE ---
critical potassium reported to dr ramirez. awaiting further orders.
[2020-02-28 14:53] LABS: Lymphocytes % 3 % (10-50); Monocytes % 9 % (2-9); Neutrophils % 88 % (42-76); Platelet Estimate Normal; RBC Morphology Normal; Total Cells Counted 100
== END 2020-02-28 15:35 | disposition home or self-care (01) ==
PROVIDERS: Emergency Provider Emergency Medicine; PCP Physician Assistant
DX: U07.1 COVID-19 (principal); E87.6 Hypokalemia; E11.65 Type 2 diabetes mellitus with hyperglycemia; I10 Essential (primary) hypertension; I25.10 Atherosclerotic heart disease of native coronary artery without angina pectoris; F41.8 Other specified anxiety disorders; Z79.899 Other long term (current) drug therapy
CPT/HCPCS: 71045; 80053; 82803; 85007; 85025; 96365; 99283

== ENCOUNTER 2020-03-09 12:30 | Inpatient (IN) | payer MEDICARE, SELFPAY ==
[2020-03-09] VITALS (10 sets, daily range): BP systolic 95–122; BP diastolic 46–76; PULSE 90–114; RESP 16–22; TEMP 36.8–37.8; O2SAT 91–98; BMI 38.7; BMI 30.3
--- NOTE | 2020-03-09 10:53 | ECG_ITS ---
APPROVED REPORT Exam: Resting ECG HR:118 bpm ECG Measurements Heart Rate 118 AXES DE 116 P 37 QRSd 82 QRS 42 QT 374 T 49 QTc 524 Conclusion Sinus tachycardia Possible Left atrial enlargement ST & T wave abnormality, consider lateral ischemia Abnormal ECG Electronically signed by : Walker Hill, 03/09/2020 19:06:40
--- NOTE | 2020-03-09 12:45 | HMH.EDGENADL ---
ED Disposition Clinical Impression: Bacterial pneumonia, Hypokalemia, Physical deconditioning Disposition: Admitted As Inpatient Condition on Discharge: Good - Critical Care Critical Care Time: No Attestation: On , the high probability of a clinically significant, sudden or life threatening deterioration of the following system(s) required my full and direct attention, intervention and personal management. The time I documented below is in addition to time spent performing reported procedures but includes the following listed in this critical care notation. Medical Decision Making - Jevon Inquiry Pt receiving controlled substance: No Vital Signs: 03/09/20 12:31 03/09/20 13:15 03/09/20 13:58 Temperature 100.0 F H Temperature Source Oral Pulse Rate [Left Radial] 114 H 112 H 106 H Respiratory Rate 22 18 18 Blood Pressure [Right Arm] 119/70 122/76 104/73 L Blood Pressure Mean [Right Arm] 86 91 83 Blood Pressure Source [Right Arm] Automatic Cuff Automatic Cuff Automatic Cuff Blood Pressure Position [Right Arm] Sitting Sitting Sitting 02 Sat by Pulse Oximetry 95 94 L Oxygen Delivery Method Room Air Room Air 03/09/20 16:00 03/09/20 16:30 03/09/20 17:00 Temperature Temperature Source Pulse Rate [Left Radial] 104 H 96 H 101 H Respiratory Rate 16 18 18 Blood Pressure [Right Arm] 95/63 L 110/46 L 119/57 L Blood Pressure Mean [Right Arm] 73 67 77 Blood Pressure Source [Right Arm] Automatic Cuff Automatic Cuff Blood Pressure Position [Right Arm] Sitting Sitting 02 Sat by Pulse Oximetry 93 L 94 L 93 L Oxygen Delivery Method - Lab Data Lab Results 03/09/20 12:47: VBG pH 7.44 H, VBG pCO2 42.7, VBG pO2 48.3 H, VBG HCO3 28.4, VBG Total CO2 29.7 H, VBG O2 Saturation 83.5 H, VBG Base Excess 4.3 H 03/09/20 12:50: WBC 9.7, RBC 5.48, Hgb 14.0 L, Hct 42.6, MCV 77.9 L, MCH 25.6 L, MCHC 32.9, RDW 14.5, Plt Count 445 H, MPV 8.0, Neut % (Auto) 88.7 H, Lymph % (Auto) 5.3 L, [place] % (Auto) 5.5, Eos % (Auto) 0.2, Baso % (Auto) 0.4, Neut # (Auto) 8.6 H, Lymph # (Auto) 0.5 L, [place] # (Auto) 0.5, Eos # (Auto) 0.0, Baso # (Auto) 0.0, Total Counted 100, Neutrophils % (Manual) 85 H, Band Neutrophils % 5.0, Lymphocytes % (Manual) 7 L, Monocytes % (Manual) 3, Platelet Estimate Normal, RBC Morphology Normal 03/09/20 12:50: Sodium 133 L, Potassium 2.9 L*, Chloride 90 L, Carbon Dioxide 34 H, Anion Gap 11.9, BUN 13, Creatinine 1.10, Estimated Creat Clear 86, Estimated GFR 67, Est GFR ( Amer) 81, Glucose 148 H, Calcium 8.7, Total Bilirubin 0.8, AST 53, ALT 37, Alkaline Phosphatase 86, Total Protein 8.0, Albumin 3.6, Globulin 4.4 H, Albumin/Globulin Ratio 0.8 L 03/09/20 12:50: Lactate 3.0 H 03/09/20 12:50: SARS-CoV-2 IgG Ab (Rapid) Positive A, SARS-CoV-2 IgM Ab (Rapid) Negative 03/09/20 16:00: Urine Color Yellow, Urine Appearance Cloudy, Urine pH 6.0, Ur Specific [place] 1.020, Urine Protein 2+, Urine Glucose (UA) Negative, Urine Ketones Trace, Urine Blood Negative, Urine Nitrate Negative, Urine Bilirubin 1+ A, Urine Urobilinogen 0.2, Ur Leukocyte Esterase Negative, Urine WBC 10-20, Ur Squamous Epith Cells 3-5, Urine Bacteria 1+, Fine Granular Casts 5- 0 Result diagrams: 03/09/20 12:50 03/09/20 12:50 Orders (Tests/Meds): ED MEDICATIONS Generic Name Dose Route Start Last Admin Trade Name Freq PRN Reason Stop Dose Admin Docusate Sodium 100 mg 03/10/20 09:00 Docusate Sodium 100 Mg Capsule PO 04/09/20 08:59 DAILY SWATHI Enoxaparin Sodium 40 mg 03/10/20 09:00 Enoxaparin 40mg/0.4ml Syringe SQ 04/09/20 08:59 DAILY SWATHI Cefepime HCl 2 gm/ Sodium 100 mls @ 200 mls/hr 03/09/20 23:45 Chloride IV 03/23/20 23:44 Q8H SWATHI Protocol Levofloxacin/Dextrose 750 mg in 150 mls @ 100 mls/hr 03/10/20 15:45 Levofloxacin 750mg/150ml Premix IV 03/24/20 15:44 Q24H SWATHI Protocol Pantoprazole Sodium 40 mg 03/10/20 09:00 Pantoprazole 40mg Tablet PO 04/09/20 08:59 DAILY SWATHI Potassium Chl
--- NOTE | 2020-03-09 12:46 | XR_ITS ---
PROCEDURE: XR CHEST PORTABLE CLINICAL HISTORY: cough fever COMPARISON: CR,CT CHESTWO CT chest wo con from 09/08/2017 CR XR CHEST PORTABLE from 02/23/2020 CR XR CHEST PORTABLE from 02/25/2020 CR XR CHEST PORTABLE from 02/28/2020 FINDINGS: The cardiomediastinal silhouette and pulmonary vascularity are within normal limits. There are hypertrophic changes of the right 1st rib. The bilateral pneumonia is once again noted but appears somewhat improved compared to the previous exam. No acute bony abnormalities. IMPRESSION: Persistent but improving bilateral pneumonia Dictated by: Ashu Ruiz MD 03/09/2020 13:18 Ashu Ruiz MD in [place] 03/09/2020 13:18
--- NOTE | 2020-03-09 12:47 | CT_ITS ---
PROCEDURE: CT HEAD/BRAIN WO CON CLINICAL INDICATION: fall, altered mental status Head injury with headache/pain, contusion, abrasion or hematoma, Altered mental status, altered level of consciousness, confusion, disorientation COMPARISON: CT CT HEAD/BRAIN WO CON from 02/12/2019 TECHNIQUE: Axial images obtained. All CT scans at the facility use one or more dose reduction, viz: automated exposure control, ma/kV adjustment per patient size (including targeted exams where dose is matched to indication, i.e. head), or iterative reconstruction technique. FINDINGS: No midline shift, mass effect, intracranial hemorrhage, hydrocephalus, or extra-axial fluid collection is evident. There is generalized atrophy with hypoattenuation of the periventricular white matter consistent with microangiopathic changes. The calvarium has an unremarkable appearance. There is minimal opacification of the mastoid sinuses. No sinus air-fluid level. IMPRESSION: No acute intracranial finding Dictated by: Ashu Ruiz MD 03/09/2020 13:24 Ashu Ruiz MD in [facility] 03/09/2020 13:24
[2020-03-09 13:19] LABS: Chloride 90 mmol/L (98-107); Sodium 133 mmol/L (136-145)
[2020-03-09 13:20] LABS: Potassium 2.9 mmoL/L (3.5-5.1)
[2020-03-09 13:22] LABS: Alanine Aminotransferase 37 U/L (12-78); Albumin Level 3.6 g/dl (3.5-5.0); Albumin/Globulin Ratio 0.8 (1.1-1.8); Alkaline Phosphatase 86 U/L (38-126); Anion Gap 11.9 mEq/L (5-15); Aspartate Amino Transferase 53 U/L (17-59); Bilirubin,Total 0.8 mg/dl (0.2-1.3); Blood Urea Nitrogen 13 mg/dl (9-20); Calcium 8.7 mg/dl (8.4-10.2); Carbon Dioxide 34 mmol/L (22.0-30.0); Creatinine Clearance Estimated 86 mL/min (50-200); Estimated Glomerular Filt Rate 67 ml/min (>60); GFR (African American) 81 ML/MIN (>60); Globulin 4.4 g/dL (1.3-3.2); Glucose 148 mg/dl (74-100)
[2020-03-09 13:24] LABS: Basophils % 0.4 % (0.1-2.0); Eosinophils % 0.2 % (0.1-12.0); Hematocrit 42.6 % (42.0-52.0); Lymphocytes # 0.5 K/mm3 (0.7-4.5); Lymphocytes % 5.3 % (10-50); Mean Corpuscular HGB Conc 32.9 g/dL (31.8-35.4); Mean Corpuscular Hemoglobin 25.6 pg (27.0-31.2); Mean Corpuscular Volume 77.9 fl (80-94); Monocytes # 0.5 K/mm3 (0.1-1.0); Monocytes % 5.5 % (1.7-9.3); Neutrophils # 8.6 K/mm3 (1.8-7.8); Neutrophils % 88.7 % (37.0-80.0); Platelet Count 445 K/mm3 (142-424); Red Blood Count 5.48 M/mm3 (4.60-6.20); Red Cell Distribution Width 14.5 % (11.5-17.5); White Blood Count 9.7 K/mm3 (4.8-10.8)
[2020-03-09 13:28] LABS: MANUAL DIFFERENTIAL MANUAL DIFFERENTIAL (MANUAL DIFF)
[2020-03-09 13:34] LABS: VBG Base Excess 4.3 mmol/L (-2.4-2.3); VBG HCO3 28.4 mmol/L (23-30); VBG Oxygen Saturation 83.5 % (50-70); VBG PCO2 42.7 mmol/L (35-51); VBG PH 7.44 mmol/L (7.31-7.41); VBG PO2 48.3 mmol/L (28-40); VBG Total CO2 29.7 mmol/L (23-27)
--- NOTE | 2020-03-09 13:47 | CT_ITS ---
PROCEDURE: CT ANGIO CHEST CLINCIAL INDICATION: soa, fever, tachycardia Covid19 positive, shortness of air fever, tachycardia COMPARISON: CT ABDPELW CT ABD PELVIS W/ CONTRAST from 03/01/2017 CR,CT CHESTWO CT chest wo con from 09/08/2017 CR XR CHEST PORTABLE from 02/28/2020 CR XR CHEST PORTABLE from 03/09/2020 TECHNIQUE: IV Contrast: 70ML Isovue 370 Axial images obtained with sagittal and coronal reformats. All CT scans at the facility use one or more dose reduction, viz: automated exposure control, ma/kV adjustment per patient size (including targeted exams where dose is matched to indication, i.e. head), or iterative reconstruction technique. FINDINGS: HEART AND MEDIASTINAL STRUCTURES: There is no evidence of central pulmonary embolus aortic aneurysm or dissection. The peripheral pulmonary arteries are not well opacified. Small subsegmental PEs cannot be excluded based on this exam. LUNGS AND PLEURAL SPACES: There is bilateral peripheral bandlike areas opacification consistent with pneumonia and atelectatic change. There is trace bilateral effusion. No cavitating lesions are evident. BONY STRUCTURES: Degenerative changes UPPER ABDOMEN: Fatty liver diverticulosis of the splenic flexure. Subtle rounded area of decreased attenuation is present in the left hepatic lobe lateral segment at 17 mm. There is a 15 mm hyperdense nodule projecting off the medial aspect of the left kidney which is nonspecific and has developed since 03/01/2017. ADDITIONAL FINDINGS: No other significant abnormalities. IMPRESSION: 1. No central pulmonary embolus. The peripheral pulmonary arteries are not well opacified. Small PEs cannot be excluded. 2. Bilateral peripheral bandlike areas of the opacification/consolidation consistent with pneumonia and atelectatic change 3. 17 mm lesion of the left hepatic lobe indeterminate. Nonemergent MRI may provide further evaluation. 4. 15 mm hyperdense nodule the left kidney also indeterminate for which nonemergent MRI may provide further evaluation. Dictated by: Ashu Ruiz MD 03/09/2020 15:17 Ashu Ruiz MD in [place] 03/09/2020 15:17
[2020-03-09 13:52] LABS: Lymphocytes % 7 % (10-50); Monocytes % 3 % (2-9); Neutrophils % 85 % (42-76); Platelet Estimate Normal; RBC Morphology Normal; Total Cells Counted 100
--- NOTE | 2020-03-09 14:41 | PC.NURSE ---
Radiology called and they added a 20ga iv to AC for pt CT with contrast
--- NOTE | 2020-03-09 15:45 | PC.NURSE ---
Dr Trinh speaking with Dr Keller
[2020-03-09 16:14] LABS: Coronavirus 19 IgG Antibody Positive (Negative); Coronavirus 19 IgM Antibody Negative (Negative)
[2020-03-09 16:23] LABS: Microscopic, Urine URINE MICROSCOPIC (MICROSCOPIC)
[2020-03-09 16:27] LABS: Appearance,Urine CLOUDY (Clear); Blood, Urine Negative (Negative); Color,Urine YELLOW (Yellow); Glucose,Urine (UA) Negative (Negative); Ketones,Urine TRACE (Negative); Leukocyte Esterase,Urine Negative (Negative); Nitrate,Urine Negative (Negative); Protein,Urine 2+ (Negative); Urobilinogen,Urine 0.2 EU/dl (0.2)
[2020-03-09 16:36] LABS: Bacteria,Urine 1+ /lpf; Bilirubin,Urine 1+ (Negative)
[2020-03-09 17:09] LABS: Reflex Lactic Add Lactic Reflex
[2020-03-09 18:35] LABS: Lactic Acid Follow Up (RFLX 1) 1.8 mmol/L (0.7-2.1)
[2020-03-10] VITALS (10 sets, daily range): BP systolic 98–136; BP diastolic 61–75; PULSE 94–123; RESP 18–22; TEMP 36.7–38.6; O2SAT 90–96; BMI 29.6
--- NOTE | 2020-03-10 03:48 | PC.NURSE ---
Addendum entered by Sg Gonzales RN 03/10/20 04:57: 0457- Pt up to chair. He is able to ambulate to BR w/ standby assist. Voiding clear, yellow urine. Remains on RA. Crackles to BLL's still present. Addendum entered by Sg Gonzales RN 03/10/20 04:24: 0335- Tylenol given, blankets removed and room temp decreased. 0424- 98.6 oral temp Original Note: 0310 when rounding, pt was wanting assistance to BR. Pt was warm to touch. Oral temp checked and was 101.3. Pt is SOA w/ exertion and crackles auscultated in BLL. RA sat of 90% at this time. Paged and received orders for tylenol 500mg PO Q4H PRN and 20mg IV lasix once.
--- NOTE | 2020-03-10 04:26 | PC.NURSE ---
nurse made aware of temperature
[2020-03-10 06:33] LABS: Basophils % 0.2 % (0.1-2.0); Eosinophils % 0.2 % (0.1-12.0); Hematocrit 39.2 % (42.0-52.0); Hemoglobin 13.2 g/dL (14.1-18.0); Lymphocytes # 0.5 K/mm3 (0.7-4.5); Lymphocytes % 5.9 % (10-50); Mean Corpuscular HGB Conc 33.6 g/dL (31.8-35.4); Mean Corpuscular Hemoglobin 26.1 pg (27.0-31.2); Mean Corpuscular Volume 77.8 fl (80-94); Mean Platelet Volume 8.3 fl (7.4-10.4); Monocytes # 0.5 K/mm3 (0.1-1.0); Monocytes % 5.4 % (1.7-9.3); Neutrophils # 7.9 K/mm3 (1.8-7.8); Neutrophils % 88.3 % (37.0-80.0); Platelet Count 412 K/mm3 (142-424); Red Blood Count 5.04 M/mm3 (4.60-6.20); Red Cell Distribution Width 14.8 % (11.5-17.5); White Blood Count 8.9 K/mm3 (4.8-10.8)
[2020-03-10 06:42] LABS: MANUAL DIFFERENTIAL MANUAL DIFFERENTIAL (MANUAL DIFF)
[2020-03-10 06:49] LABS: Chloride 90 mmol/L (98-107); Potassium 3.3 mmoL/L (3.5-5.1); Sodium 135 mmol/L (136-145)
[2020-03-10 06:52] LABS: Anion Gap 11.3 mEq/L (5-15); Blood Urea Nitrogen 11 mg/dl (9-20); Calcium 8.8 mg/dl (8.4-10.2); Carbon Dioxide 37 mmol/L (22.0-30.0); Creatinine Clearance Estimated 77 mL/min (50-200); Estimated Glomerular Filt Rate 60 ml/min (>60); GFR (African American) 73 ML/MIN (>60); Glucose 155 mg/dl (74-100)
--- NOTE | 2020-03-10 07:36 | HMH.PHAVTE ---
[facility] Pharmacy VTE Monitoring - Patient Demographics Admission date: 03/09/20 Report Date: 03/10/20 Time: 07:36 Allergies/Adverse Reactions: Patient Allergies Penicillins [PENICILLINS] Allergy (Unknown, Verified 12/09/19 10:54) I-ITCHING Height: 1.75 m Weight: 90.718 kg Patient Problems: Current Active Problems Hypokalemia (Acute) Bacterial pneumonia (Acute) Physical deconditioning (Acute) - VTE Risk Labs: VTE Related Lab Results Hgb 13.2 g/dL (14.1-18.0) L 03/10/20 05:50 Hct 39.2 % (42.0-52.0) L 03/10/20 05:50 Plt Count 412 K/mm3 (142-424) 03/10/20 05:50 BUN 11 mg/dl (9-20) 03/10/20 05:50 Creatinine 1.20 mg/dl (0.66-1.25) 03/10/20 05:50 Estimated Creat Clear 77 mL/min (50-200) 03/10/20 05:50 Clinical Trial Participant: No - Prophylaxis VTE Prophylaxis Ordered?: Yes Types of VTE Prophylaxis: TEDS Knee High Location of Applied Device: Bilateral Lower Extremeties Pharmacologic Type: Enoxaparin
[2020-03-10 07:38] LABS: Lymphocytes % 20 % (10-50); Monocytes % 3 % (2-9); Neutrophils % 77 % (42-76); Platelet Estimate Normal; RBC Morphology Normal; Total Cells Counted 100
--- NOTE | 2020-03-10 09:12 | HMH.HP ---
*Admission Date: 03/09/20 *Chief complaint: SOA *History of present illness: 69-year-old male patient presented to the emergency department with weakness and shortness of breath. Oxygen saturations were in the low 90s on room air, he was tachycardic, with a temperature of 100.0. Potassium was 2.9 he was given 60 mEq of potassium p.o. Chest CT with PE protocol revealed negative for PE but did reveal bilateral pneumonia. He was given Levaquin and cefepime IV antibiotics, Lactate was elevated at 3.0. He does have bilateral lower extremity edema and reports it is no worse than usual, and he is a patient of the lymphedema clinic. COVID -19 PCR NEG, Serum IgG POS, IgM NEG He was diagnosed with COVID-19 pneumonia, hospitalized, and discharged 02/24. His was Covid positive also and upon discharge the quarantined together. He reports since then he has felt weak and tired, spending much of his time on the couch brand bed all day. He denies nausea, vomiting, diarrhea, 03/09/[address]: FINDINGS: No midline shift, mass effect, intracranial hemorrhage, hydrocephalus, or extra-axial fluid collection is evident. There is generalized atrophy with hypoattenuation of the periventricular white matter consistent with microangiopathic changes. The calvarium has an unremarkable appearance. There is minimal opacification of the mastoid sinuses. No sinus air-fluid level. IMPRESSION: No acute intracranial finding Dictated by: Joseph, This morning patient sitting up in side of the bed, he does have a nonproductive cough. Temperature during the night was maximum 101.4 and oxygen saturations are 91% on room air. potassium this morning is 3.3, Lactate after fluids 1.8 [facility] History Medical History: Reports:: Anxiety, Coronary Artery Disease, Depression, Diabetes Mellitus Type 1, Hiatal Hernia, Hyperlipidemia, Hypertension, Kidney Stones Denies:: Cancer, Deep Vein Thrombosis, Diabetes Mellitus Type 2, Internal Pacemaker, MRSA, Seizures, Transient Ischemic Attacks (TIA) *Have you ever received a pneumonia vaccine?: Yes *Have you received a flu vaccine this season?: Yes Other Medical History: Reports: Anemia, Arthritis, Sinus Problems, Other Laterality Cases: Right: Arthroscopy Shoulder Other Surgeries: Yes: No Previous Surgery, Cardiac Catheterization, Cholecystectomy, Colonoscopy, Coronary Stent, Hernia Repair, Other. No: Pacemaker Amputation: No Fractures: Yes - *Social History Smoking Status: Never smoker Alcohol Intake: never Alcohol Intake Frequency:: other Substance Use Type: denies use *Occupational Status:: employed Housing: house Household Members: significant other, children *Travel in the last 8 weeks: None - Psychiatric History Pschychiatric History:: Reports:: Anxiety, Depression Family Hx:: Diabetes, Heart Attack, Hyperlipidemia Review of Systems - Constitutional Reports fatigue, Reports fever(s), Reports lack of energy, Reports weakness - Eyes Denies blind spots, Denies blurry vision - ENT Denies abnormal hearing, Denies dental pain - *Cardiovascular Reports shortness of breath, Reports generalized swelling, Reports leg swelling, Denies chest pain - *Respiratory Reports chest congestion, Reports cough, Reports shortness of breath, Denies coughing up blood - *Gastrointestinal Denies abdominal pain, Denies change in bowel habits - *Genitourinary Denies difficulty urinating, Denies painful urination - *Musculoskeletal Denies joint pain, Denies limited joint movement - Integumentary/Breasts Denies hair loss, Denies rash - *Neurologic Denies behavioral changes, Denies seizure-like activity - Psychiatric Denies sensing things others do not sense, Denies panic attacks - Endocrine Denies cold intolerance, Denies rapid, pounding, or irregular heartbeat - Hematologic/Lymphatic Denies easy bleeding, Denies easy bruising - Allergic/Immunologic Denies GI upset with certain foods, Denies lip swelling
[2020-03-10 09:41] LABS: Adenovirus,PCR Not Detected (NotDetected); Bordetella Pertussis Not Detected (NotDetected); Chlamydophila Pneumoniae, PCR Not Detected (NotDetected); Coronavirus 19, PCR Not Detected (NotDetected); Coronavirus 229E Not Detected (NotDetected); Coronavirus NL63 Not Detected (NotDetected); Coronavirus OC43 Not Detected (NotDetected); Coronovirus HKU1,PCR Not Detected (NotDetected); Human Metapneumovirus Not Detected (NotDetected); Influenza A, PCR Not Detected (NotDetected); Influenza AH1, 2009 Not Detected (NotDetected); Influenza AH1, PCR Not Detected (NotDetected); Influenza AH3,PCR Not Detected (NotDetected); Influenza B, PCR Not Detected (NotDetected); Mycoplasma Pneumoniae, PCR Not Detected (NotDetected); Parainfluenza 1, PCR Not Detected (NotDetected); Parainfluenza 2, PCR Not Detected (NotDetected); Parainfluenza 3, PCR Not Detected (NotDetected); Parainfluenza 4, PCR Not Detected (NotDetected); Respiratory Syncytial Virus Not Detected (NotDetected); Rhinovirus/Enterovirus Not Detected (NotDetected)
--- NOTE | 2020-03-10 09:51 | HMH.PHAINT ---
Medication reconciliation completed using discharge summary from 02/25/20.
--- NOTE | 2020-03-10 11:19 | HMH.PULMCON ---
*Admission Date: 03/09/20 *Reason for consult:: Shortness of breath *History of present illness: Mr. Brandon is a 69-year-old male non-smoker no prior respiratory complaints recent COVID-19 pneumonia presented to the hospital with worsening fatigue weakness and shortness of breath associated with nonproductive dry cough and was admitted to the hospital for further evaluation. Patient on presentation to the ED saturating 90% on room air which improved with oxygen supplementation. Patient also complains of chronic lower extremity edema secondary to lymphedema, denies any worsening swelling. [facility] History Medical History: Reports:: Anxiety, Coronary Artery Disease, Depression, Diabetes Mellitus Type 1, Hiatal Hernia, Hyperlipidemia, Hypertension, Kidney Stones Denies:: Cancer, Deep Vein Thrombosis, Diabetes Mellitus Type 2, Internal Pacemaker, MRSA, Seizures, Transient Ischemic Attacks (TIA) *Have you ever received a pneumonia vaccine?: Yes *Have you received a flu vaccine this season?: Yes Other Medical History: Reports: Anemia, Arthritis, Sinus Problems, Other Laterality Cases: Right: Arthroscopy Shoulder Other Surgeries: Yes: No Previous Surgery, Cardiac Catheterization, Cholecystectomy, Colonoscopy, Coronary Stent, Hernia Repair, Other. No: Pacemaker Amputation: No Fractures: Yes - *Social History Smoking Status: Never smoker Alcohol Intake: never Alcohol Intake Frequency:: other Substance Use Type: denies use *Occupational Status:: employed Housing: house Household Members: significant other, children *Travel in the last 8 weeks: None - Psychiatric History Pschychiatric History:: Reports:: Anxiety, Depression Family Hx:: Diabetes, Heart Attack, Hyperlipidemia ROS - Cons Reports body ache(s), Reports chills - Card Reports shortness of breath with activity, Reports leg swelling - Resp Respiratory: Yes chest congestion, Yes cough, Yes non-productive cough, Yes dyspnea, Yes dyspnea on exertion, No excessive phlegm production, No coughing up blood, No pain with cough, No cough with sputum production - GI Gastrointestingal: Reports: system reviewed and no additional complaints, except as docu - [place] Musculoskeletal: Reports system reviewed and no additional complaints, except as docu Meds Home Medications Medication Instructions Recorded Confirmed Type tramadol 50 mg tablet 50 mg PO Q4-6H PRN 08/24/17 03/09/20 History cyclobenzaprine 5 mg tablet 5 mg PO NEEDED PRN 90 Days #90 10/09/17 03/09/20 History dicyclomine 10 mg capsule 10 mg PO NEEDED PRN 90 Days #270 10/09/17 03/09/20 History simvastatin 20 mg tablet 20 mg PO DAILY #90 tab 03/14/19 03/09/20 Rx losartan 50 mg tablet 50 mg PO DAILY #90 tab 03/29/19 03/09/20 Rx Clopidogrel Bisulfate [Plavix] 75 mg PO DAILY 02/23/20 03/09/20 History Pioglitazone HCl 30 mg PO DAILY 02/23/20 03/09/20 History Allergies Allergy/AdvReac Type Severity Reaction Status Date / Time Penicillins [PENICILLINS] Allergy Unknown I-ITCHING Verified 12/09/19 10:54 Exam Radiology reports for Last 24 Hours: CT PE reviewed, no evidence of pulmonary embolism however suboptimal study reported as cannot exclude subsegmental PEs. Bilateral peripheral airspace disease noted - Constitutional Constitutional:: no acute distress - HENMT Exam HENMT: normocephalic - Eye Exam Eyes:: normal appearance both eyes and related structures - Neck Exam Neck:: normal visual inspection, thyroid normal, no lymphadenopathy - Respiratory Exam Respiratory:: able to speak in complete sentences, lungs clear - Cardiovascular Exam Cardiac:: regular rhythm, S1, S2 - GI Exam GI:: soft, no hepatosplenomegaly - Skin Exam Skin: warm, no rash - Neurological Exam Neurological: alert, awake, normal cognition - Extremities Exam Extremities: no cyanosis, no clubbing, edema Internal Medicine - CN: Reslt - Labs CBC & Chem 7: 03/10/20 05:50 03/10/20 05:50 Labs: Short CBC 03/09/20
--- NOTE | 2020-03-10 11:53 | PC.NURSE ---
Patient was swabbed for covid, it was negative.
--- NOTE | 2020-03-10 12:28 | HMH.CNCARD ---
History of Present Illness Consult date: 03/10/20 Requesting physician: Baldemar Keller Consult reason: shortness of breath Chief complaint: Dyspnea, edema Additional Medical History:: 1. Coronary artery disease A. left main and LAD RIYA, 07/2015, Dr. Kalyan Jolly. Circumflex RIYA, 10/2015, Dr. Kalyan Acuna. GXT Myoview, 2017, Rc myoview, 2018 and 2019, no ischemia with normal LVEF 2. DM A. Hgb A1C 8.4, 09/2019 3. Chronic Lymphedema of LE's 4. HTN A. Echo, 08/2018, mild LAE, normal LV size, mild concentric LVH, EF 55% with no regional wall motion abnormality. Grade 1 diastolic dysfunction. Mild MR and TR. 5. HLD A. LDL 52, 09/2019 6. ARACELI A. CNI, 02/2019, <20% LICA, 20-49% RAKESH History of present illness: 69-year-old male with recent history of COVID-19 infection for which he was diagnosed and treated and released 02/25/2020, now returns for increasing fatigue and shortness of breath. CTA of the chest showed no evidence of pulmonary embolus but did reveal bilateral pneumonia despite recent antibiotic therapy. Pulmonary consult noted with patient being treated for pneumonia with IV abx. Cardiology consulted for dyspnea and lower extremity edema. Patient is known to have chronic lymphedema of the lower extremities. He is on Actos for diabetes mellitus which could exacerbate edema. EKG shows sinus tachycardia with left atrial enlargement and possible lateral ischemia. Patient denies any exertional chest pain or shortness of breath prior to 02/18/2020 when he was diagnosed with the Covid infection. Since February 17 he has lost about 25 pounds due to loss of taste and loss of desire to eat. He does have a history of coronary artery stenting in 2016 with yearly stress test since then showing no evidence of ischemia and normal ejection fraction. [facility] History Medical History: Reports:: Anxiety, Coronary Artery Disease, Depression, Diabetes Mellitus Type 1, Hiatal Hernia, Hyperlipidemia, Hypertension, Kidney Stones Denies:: Cancer, Deep Vein Thrombosis, Diabetes Mellitus Type 2, Internal Pacemaker, MRSA, Seizures, Transient Ischemic Attacks (TIA) *Have you ever received a pneumonia vaccine?: Yes *Have you received a flu vaccine this season?: Yes Other Medical History: Reports: Anemia, Arthritis, Sinus Problems, Other Laterality Cases: Right: Arthroscopy Shoulder Other Surgeries: Yes: No Previous Surgery, Cardiac Catheterization, Cholecystectomy, Colonoscopy, Coronary Stent, Hernia Repair, Other. No: Pacemaker Amputation: No Fractures: Yes - *Social History Smoking Status: Never smoker Alcohol Intake: never Alcohol Intake Frequency:: other Substance Use Type: denies use *Occupational Status:: employed Housing: house Household Members: significant other, children *Travel in the last 8 weeks: None - Psychiatric History Pschychiatric History:: Reports:: Anxiety, Depression Family Hx:: Diabetes, Heart Attack, Hyperlipidemia Meds Home Medications Medication Instructions Recorded Confirmed Type tramadol 50 mg tablet 50 mg PO Q4-6H PRN 08/24/17 03/09/20 History cyclobenzaprine 5 mg tablet 5 mg PO NEEDED PRN 90 Days #90 10/09/17 03/09/20 History dicyclomine 10 mg capsule 10 mg PO NEEDED PRN 90 Days #270 10/09/17 03/09/20 History simvastatin 20 mg tablet 20 mg PO DAILY #90 tab 03/14/19 03/09/20 Rx losartan 50 mg tablet 50 mg PO DAILY #90 tab 03/29/19 03/09/20 Rx Clopidogrel Bisulfate [Plavix] 75 mg PO DAILY 02/23/20 03/09/20 History Pioglitazone HCl 30 mg PO DAILY 02/23/20 03/09/20 History Allergies Allergy/AdvReac Type Severity Reaction Status Date / Time Penicillins [PENICILLINS] Allergy Unknown I-ITCHING Verified 12/09/19 10:54 Exam Vital signs and Labs for Last 24 Hours: Temp Pulse Resp BP Pulse Ox 98.4 F 106 H 18 121/61 92 L 03/10/20 11:28 03/10/20 11:28 03/10/20 11:28 03/10/20 11:28 03/10/20 11:28 Laboratory Results - last 24 hr 03/09/20 12:47: VBG pH 7.44 H, VBG pCO
[2020-03-10 13:27] LABS: Troponin I 0.02 ng/ml (0.00-0.034)
--- NOTE | 2020-03-10 14:01 | CA_ITS ---
APPROVED REPORT EXAM: Comprehensive 2D, Doppler, and color-flow Echocardiogram Supervisor Finishing Room: Iris Elliott RT(R) Ht: 5 ft 9 in Wt: 200lbs BSA: 2.07 BP: 121/61 mmHg Indications: pneumonia, edema, HTN, DM, SOB, hyperlipidemia, recent COVID, tachycardia, CAD, cardiac stents, SIRS Echo Enhancing Agent Indication: Endocardial border delineation Agent(s) / Amount(s) Used: Definity 2 cc 2D Dimensions LVOT 2.07 cm (M/F) 1.5-2.5 M-Mode Dimensions RVDd 2.25 cm (0.9-2.6) LA Diam 3.19 cm (1.9-4.0) LVDd 4.15 cm (3.5-5.7) Ao Diam 3.26 cm (2.0-3.7) LVDs 3.15 cm (3.5-5.7) IVSd 0.89 cm (0.6-1.1) PWd 0.79 cm (0.6-1.1) EF (Teich) 48.40% FS 24.10% EDV (Teich) 76.40 mL ESV (Teich) 39.40 mL LV Diastology E Decel Time 150.00 (160-240 msec) E/A Ratio 0.9 MED E' 7.90 (< 7 cm/sec) E'/MED E' Ratio 9.72 (>14) LAT E' 12.00 (<10 cm/sec) E/LAT E' Ratio 6.40 (>14) Mitral Valve MV E Max Parmjit. 77.00 (40-130 cm/s) MV A Velocity 82.00 (40-130 cm/s) E/A Ratio 0.93 MV Decel. Time 150.00 (160-240 ms) MV PHT 44.00 ms Left Ventricle Technically difficult study because of the patient factors and poor acoustic windows, Definity contrast was utilized to delineate the endocardial surfaces. Left atrium is mildly enlarged, left ventricle is normal size, mild concentric left ventricular hypertrophy, visually estimated ejection fraction 50% with mild intraventricular septum and anterior wall hypokinesis seen, there is no left ventricular thrombus seen. Diastolic parameters are inconclusive. Right Ventricle Right atrium and right ventricle are normal size and contractility. Aortic Valve Aortic valve is minimally thickened and fibrosed, there is no aortic stenosis or aortic insufficiency. Mitral Valve Mitral valve is grossly normal, there is mild mitral regurgitation. Tricuspid Valve Tricuspid valve is grossly normal, there is mild tricuspid regurgitation. Pulmonic Valve Pulmonic valve is poorly visualized. Great Vessels Aortic root is normal size. Pericardium No significant pericardial effusion noted. Conclusion 1. Technically difficult study, Definity contrast was utilized to delineate the endocardial surface, normal left ventricular size, visually estimated ejection fraction 50% with mild hypokinesis involving the intraventricular septum and anterior wall. There is no left ventricular thrombus seen. Diastolic parameters are inconclusive. 2. Mild mitral and tricuspid regurgitation. 3. No significant pericardial effusion noted. Electronically signed by : Nando Rossi, 03/11/2020 05:59:54
--- NOTE | 2020-03-10 14:55 | PC.NURSE ---
Sputum sample sent to lab @ 8904 in tube.
--- NOTE | 2020-03-10 18:30 | PC.NURSE ---
Patient remained a/o x4 this shift. He has been sating in 90's on room air. Patient denies any pain or discomfort. Patient has been having of and no coughing spells throughout the shift. Patients oxygen sat remains above 90 with the coughing spells occur and seems to be in no distress. Patients cough is a very dry cough, no sputum present so we have been unsuccessful in collecting a sputum collection on shift for a culture. Patient has a 20g in RAC saline locked and a 20g in left hand saline locked. Patient is using Lovenox for VTE. Patient is independent. He took a nice warm shower this afternoon/evening that seemed to soothe his coughing. Patient has been very pleasant today will continue to monitor.
--- NOTE | 2020-03-10 20:35 | PC.NURSE ---
accidentally reported on the wrong patient, it is fixed now
[2020-03-11] VITALS (8 sets, daily range): BP systolic 107–129; BP diastolic 55–90; PULSE 95–111; RESP 18–20; TEMP 36.9–37.5; O2SAT 90–95; BMI 30.5; BMI 30.7
[2020-03-11 06:54] LABS: Basophils % 0.2 % (0.1-2.0); Eosinophils % 0.6 % (0.1-12.0); Hemoglobin 12.5 g/dL (14.1-18.0); Lymphocytes # 0.5 K/mm3 (0.7-4.5); Mean Corpuscular HGB Conc 33.8 g/dL (31.8-35.4); Mean Corpuscular Hemoglobin 26.2 pg (27.0-31.2); Mean Corpuscular Volume 77.4 fl (80-94); Mean Platelet Volume 7.7 fl (7.4-10.4); Monocytes # 0.4 K/mm3 (0.1-1.0); Monocytes % 5.7 % (1.7-9.3); Neutrophils # 6.4 K/mm3 (1.8-7.8); Neutrophils % 86.6 % (37.0-80.0); Platelet Count 398 K/mm3 (142-424); Red Blood Count 4.78 M/mm3 (4.60-6.20); Red Cell Distribution Width 14.8 % (11.5-17.5); White Blood Count 7.4 K/mm3 (4.8-10.8)
[2020-03-11 06:59] LABS: Chloride 90 mmol/L (98-107); Potassium 3.3 mmoL/L (3.5-5.1); Sodium 131 mmol/L (136-145)
[2020-03-11 07:02] LABS: Blood Urea Nitrogen 12 mg/dl (9-20); Creatinine Clearance Estimated 95 mL/min (50-200); Estimated Glomerular Filt Rate 75 ml/min (>60); GFR (African American) 90 ML/MIN (>60)
[2020-03-11 07:03] LABS: Anion Gap 9.3 mEq/L (5-15); Calcium 8.4 mg/dl (8.4-10.2); Carbon Dioxide 35 mmol/L (22.0-30.0); Glucose 154 mg/dl (74-100)
[2020-03-11 07:24] LABS: MANUAL DIFFERENTIAL MANUAL DIFFERENTIAL (MANUAL DIFF)
[2020-03-11 08:34] LABS: Lymphocytes % 16 % (10-50); Monocytes % 4 % (2-9); Neutrophils % 80 % (42-76); Platelet Estimate Normal; RBC Morphology Normal; Total Cells Counted 100
--- NOTE | 2020-03-11 09:06 | HMH.PULMPN ---
Internal Medicine - PN: Subj *Date: 03/11/20 *Time: 10:36 Interval history: No acute respiratory events overnight. Patient respiratory status remained at baseline on room air Exam - Constitutional Constitutional:: no acute distress, comfortable - HENMT Exam HENMT: normocephalic, atraumatic - Eye Exam Eyes:: normal appearance both eyes and related structures - Neck Exam Neck:: normal visual inspection, thyroid normal, no lymphadenopathy - Respiratory Exam Respiratory:: able to speak in complete sentences, lungs clear, no respiratory distress, normal respiratory effort - Cardiovascular Exam Cardiac:: S1, S2 - GI Exam GI:: soft, no hepatosplenomegaly - Skin Exam Skin: warm, no rash - Neurological Exam Neurological: alert, awake, normal cognition - Extremities Exam Extremities: no cyanosis, no clubbing, edema Assessment and Plan (1) Bacterial pneumonia Status: Acute Category: Medical Code(s): J15.9 - Unspecified bacterial pneumonia (2) Hypokalemia Status: Acute Category: Medical Code(s): E87.6 - Hypokalemia (3) Physical deconditioning Status: Acute Category: Medical Code(s): R53.81 - Other malaise (4) Acquired lymphedema Status: Acute Category: Medical Code(s): I89.0 - Lymphedema, not elsewhere classified (5) Cough Status: Acute Category: Medical Code(s): R05 - Cough (6) Diabetes Status: Acute Qualifiers: Diabetes mellitus type: type 2 Diabetes mellitus skilled nursing insulin use: without skilled nursing use Diabetes mellitus complication status: without complication Qualified Code(s): E11.9 - Type 2 diabetes mellitus without complications Category: Medical Code(s): E11.9 - Type 2 diabetes mellitus without complications (7) Dyspnea Status: Acute Qualifiers: Dyspnea type: dyspnea on exertion Qualified Code(s): R06.00 - Dyspnea, unspecified Category: Medical Code(s): R06.00 - Dyspnea, unspecified (8) CAD (coronary artery disease) Status: Chronic Qualifiers: Coronary Disease-Associated Artery/Lesion type: [place] artery [place] vs. transplanted heart: [place] heart Associated angina: without angina Qualified Code(s): I25.10 - Atherosclerotic heart disease of [place] coronary artery without angina pectoris Category: Medical Code(s): I25.10 - Atherosclerotic heart disease of [place] coronary artery without angina pectoris (9) HHD (hypertensive heart disease) Status: Chronic Qualifiers: Heart failure presence: without heart failure Qualified Code(s): I11.9 - Hypertensive heart disease without heart failure Category: Medical Code(s): I11.9 - Hypertensive heart disease without heart failure (10) HTN (hypertension) Status: Chronic Qualifiers: Hypertension type: essential hypertension Qualified Code(s): I10 - Essential (primary) hypertension Category: Medical Code(s): I10 - Essential (primary) hypertension (11) SIRS (systemic inflammatory response syndrome) Status: Acute Category: Medical Code(s): R65.10 - Systemic inflammatory response syndrome (SIRS) of non-infectious origin without acute organ dysfunction (12) Severe sepsis Status: Acute Category: Medical Code(s): A41.9 - Sepsis, unspecified organism; R65.20 - Severe sepsis without septic shock - Assessment and plan all Dx Assessment and Plan for all problems:: #Hypoxic respiratory failure: #History of COVID-19 pneumonia: #Community-acquired pneumonia 69-year-old no prior respiratory complaints recent COVID-19 pneumonia from 25 February discharged the same day presented with worsening shortness of breath with nonproductive dry cough. PCR on this admission negative for COVID-19 along with complaints of viral respiratory panel. Chest CT did not show any evidence of PE however showed bilateral peripheral airspace disease concerning for pneumonia. Patient on room air this morning saturating 92% No evidence of leukocytosis. Renal func
--- NOTE | 2020-03-11 09:19 | HMH.PNCARD ---
Subjective Date: 03/11/20 Time: 09:19 Principal diagnosis: pneumonia due to COVID-19, SOB Interval history: This is a 69-year-old white gentleman who presented to the emergency department with worsening shortness of breath. The patient has recently had a COVID-19 infection for which he was diagnosed, treated and released around February 25, 2020. He returned to the emergency department this week with increasing shortness of breath and fatigue. The patient has chronic lower extremity edema secondary to his lymphedema. The patient was admitted and found to have bilateral pneumonia secondary to his COVID-19 infection. This morning he states that his shortness of breath is significantly better. He states that he still does have some shortness of breath and a cough but it is nowhere near as bad as it was prior to admission. He states his lymphedema is stable. He denies any chest pain or chest pressure. The patient has lost around 25 pounds since January and he states that this is because he had lost his taste due to COVID-19 and no desire to eat. He states this morning he is ate more today than he has in the last 3 weeks combined and he is feeling much better. He denies any fever, chills, nausea, vomiting, diarrhea, PND or orthopnea. Exam Vital signs and Labs for Last 24 Hours: Temp Pulse Resp BP Pulse Ox 98.6 F 99 H 18 129/90 92 L 03/11/20 08:00 03/11/20 08:15 03/11/20 08:15 03/11/20 08:00 03/11/20 08:15 Laboratory Results - last 24 hr 03/10/20 05:50: Troponin I 0.02 03/10/20 09:19: Chlamy pneumoniae PCR Not detected, Adenovirus (PCR) Not detected, B. pertussis DNA (PCR) Not detected, Coronavirus OC43 (PCR) Not detected, Coronavirus HKU1 (PCR) Not detected, Coronavirus 229E (PCR) Not detected, SARS-CoV-2 (PCR) Not detected, Coronavirus NL63 (PCR) Not detected, Human Metapneumovir PCR Not detected, Influenza A (H1) PCR Not detected, Influ A (H1N1/09) PCR Not detected, Influenza A (H3) PCR Not detected, Influenza Type A (PCR) Not detected, Influenza Type B (PCR) Not detected, M. pneumoniae (PCR) Not detected, Parainfluenza 1 (PCR) Not detected, Parainfluenza 2 (PCR) Not detected, Parainfluenza 3 (PCR) Not detected, Parainfluenza 4 (PCR) Not detected, RSV (PCR) Not detected, Entero/Rhino (PCR) Not detected 03/11/20 06:00: WBC 7.4, RBC 4.78, Hgb 12.5 L, Hct 37.0 L, MCV 77.4 L, MCH 26.2 L, MCHC 33.8, RDW 14.8, Plt Count 398, MPV 7.7, Neut % (Auto) 86.6 H, Lymph % (Auto) 7.0 L, [place] % (Auto) 5.7, Eos % (Auto) 0.6, Baso % (Auto) 0.2, Neut # (Auto) 6.4, Lymph # (Auto) 0.5 L, [place] # (Auto) 0.4, Eos # (Auto) 0.0, Baso # (Auto) 0.0, Total Counted 100, Neutrophils % (Manual) 80 H, Lymphocytes % (Manual) 16, Monocytes % (Manual) 4, Platelet Estimate Normal, RBC Morphology Normal 03/11/20 06:00: Sodium 131 L, Potassium 3.3 L, Chloride 90 L, Carbon Dioxide 35 H, Anion Gap 9.3, BUN 12, Creatinine 1.00, Estimated Creat Clear 95, Estimated GFR 75, Est GFR ( Amer) 90 D, Glucose 154 H, Calcium 8.4 I & O for Last 24 hours: Intake & Output 03/08/20 03/09/20 03/10/20 03/11/20 23:59 23:59 23:59 23:59 Intake Total 1150 / 1150 740 / 740 Output Total 1000 / 1000 Balance 150 / 150 740 / 740 Weight 205 lb 8 oz 200 lb 206 lb 6 oz Microbiology Reports for the Last 24 Hours: Microbiology 03/09/20 16:00 Urine,Clean Catch Urine Culture - Final Multiple organisms, suggests contamination. 03/10/20 14:53 Sputum - Expectorated Sputum Gram Stain - Final Narrative: Echocardiogram shows: 1. Technically difficult study, Definity contrast was utilized to delineate the endocardial surface, normal left ventricular size, visually estimated ejection fraction 50% with mild hypokinesis involving the intraventricular septum and anterior wall. There is no left ventricular thrombus seen. Diastolic parameters are inconclusive. 2. Mild mitral and tricuspid regurgitation. 3. No significant pericardial effusion
[2020-03-11 09:52] LABS: Cholesterol 62 mg/dl (140-200); Triglycerides 61 mg/dl (30-150); VLDL Cholesterol 12 mg/dL (0-40)
[2020-03-11 09:53] LABS: HDL Cholesterol 21 mg/dl (40-60)
[2020-03-11 10:04] LABS: Direct LDL Cholesterol < 30.00 mg/dL (100-129)
--- NOTE | 2020-03-11 11:49 | HMH.ACPN2 ---
Internal Medicine - PN: Subj *Date: 03/11/20 *Time: 08:49 Interval history: 69-year-old male patient sitting up in chair room air saturations 94%. He reports he is feeling much better today tolerating meals and denies any nausea or vomiting. Exam Vital signs and Labs for Last 24 Hours: Temp Pulse Resp BP Pulse Ox 98.6 F 99 H 18 129/90 92 L 03/11/20 08:00 03/11/20 08:15 03/11/20 08:15 03/11/20 08:00 03/11/20 08:15 Laboratory Results - last 24 hr 03/10/20 05:50: Troponin I 0.02 03/11/20 06:00: WBC 7.4, RBC 4.78, Hgb 12.5 L, Hct 37.0 L, MCV 77.4 L, MCH 26.2 L, MCHC 33.8, RDW 14.8, Plt Count 398, MPV 7.7, Neut % (Auto) 86.6 H, Lymph % (Auto) 7.0 L, [place] % (Auto) 5.7, Eos % (Auto) 0.6, Baso % (Auto) 0.2, Neut # (Auto) 6.4, Lymph # (Auto) 0.5 L, [place] # (Auto) 0.4, Eos # (Auto) 0.0, Baso # (Auto) 0.0, Total Counted 100, Neutrophils % (Manual) 80 H, Lymphocytes % (Manual) 16, Monocytes % (Manual) 4, Platelet Estimate Normal, RBC Morphology Normal 03/11/20 06:00: Sodium 131 L, Potassium 3.3 L, Chloride 90 L, Carbon Dioxide 35 H, Anion Gap 9.3, BUN 12, Creatinine 1.00, Estimated Creat Clear 95, Estimated GFR 75, Est GFR ( Amer) 90 D, Glucose 154 H, Calcium 8.4 03/11/20 06:00: Triglycerides 61, Cholesterol 62 L, LDL Cholesterol Direct < 30.00 L, VLDL Cholesterol 12, HDL Cholesterol 21 L, Cholesterol/HDL Ratio 3.0 I & O for Last 24 hours: Intake & Output 03/08/20 03/09/20 03/10/20 03/11/20 23:59 23:59 23:59 23:59 Intake Total 1150 / 1150 740 / 740 Output Total 1000 / 1000 Balance 150 / 150 740 / 740 Weight 205 lb 8 oz 200 lb 207 lb 3.752 oz Microbiology Reports for the Last 24 Hours: Microbiology 03/10/20 14:53 Sputum - Expectorated Sputum Gram Stain - Final 03/10/20 14:53 Sputum - Expectorated Sputum Sputum Culture - Preliminary 03/09/20 16:00 Urine,Clean Catch Urine Culture - Final Multiple organisms, suggests contamination. - Constitutional no acute distress - *Routine HEENT Exam Head: Present: normocephalic Eye: Present: EOMI ENT: Present: mucous membranes moist - *Routine Neck Exam Present: trachea midline. Absent: tracheal deviation - *Routine Respiratory Exam Present: CTA bilaterally. Absent: accessory muscle use - *Routine Cardiovascular Exam Present: RRR. Absent: bradycardia - *Routine Abdominal Exam Present: soft, normoactive bowel sounds. Absent: tenderness, firm - *Routine Extremities Exam Present: edema, pulses intact. Absent: calf tenderness Comments: +3 BLE Edema - *Routine Skin Exam Present: intact, dry, warm. Absent: cyanosis, jaundice - *Routine Neurological Exam Present: alert, oriented X3. Absent: altered mental status - Routine Psychiatric Exam Present: normal affect, normal thought process. Absent: homicidal ideation Assessment and Plan (1) Bacterial pneumonia Status: Acute Category: Medical Code(s): J15.9 - Unspecified bacterial pneumonia (2) Hypokalemia Status: Acute Category: Medical Code(s): E87.6 - Hypokalemia (3) Physical deconditioning Status: Acute Category: Medical Code(s): R53.81 - Other malaise (4) Acquired lymphedema Status: Acute Category: Medical Code(s): I89.0 - Lymphedema, not elsewhere classified (5) Cough Status: Acute Category: Medical Code(s): R05 - Cough (6) Diabetes Status: Acute Qualifiers: Diabetes mellitus type: type 2 Diabetes mellitus group home insulin use: without group home use Diabetes mellitus complication status: without complication Qualified Code(s): E11.9 - Type 2 diabetes mellitus without complications Category: Medical Code(s): E11.9 - Type 2 diabetes mellitus without complications (7) Dyspnea Status: Acute Qualifiers: Dyspnea type: dyspnea on exertion Qualified Code(s): R06.00 - Dyspnea, unspecified Category: Medical Code(s): R06.00 - Dyspnea, unspecified (8) CAD (coronary ar
--- NOTE | 2020-03-11 13:52 | HMH.OTEV ---
OT Inpatient Evaluation Rehab OT IP Evaluation Start: 03/11/20 11:57 Freq: ONCE Status: Complete Protocol: Document 03/11/20 13:46 TYREE (Rec: 03/11/20 13:52 [id number] Rehab OT IP Assessment Subjective History Pt oriented x 3 on arrival. Pt agreeable to engage in therapy evaluation. Pt was admitted via ED on 03/09/20 due to SOB and bilateral PNA. Pt has a past medical history of Anxiety, CAD, Depression, DM type 1, Hiatel Hernia, Hyperlipidemia, HTN, and kidney stones. Prior to hospitalization he lived at home with his . Pt claims he was independent with ADLs such as dressing, bathing, and feeding. Pt was able to cook small meals and do minimal cleaning. However, most of the time his completed IADL's. Pt did not use AE. Subjective I can do it. Objective Patient Orientation Person,Place,Birthday Upper Extremity Gross ROM WFL Transfer Training Sit/Stand Transfer Assist Level Supervision/Stand by Chair Transfer Ability Supervision/Stand by Chair Transfer Technique Sit to/from Ambulatory Chair Transfer Assistive Devices None Upper Body Dressing Ability Standby Assistance Overall Commode/Toilet Transfer Ability Standby Assistance Commode/Toilet Transfer Technique Sit to/from Ambulatory Rehab OT IP prob,goals,plan Problems Date of Evaluation: 03/11/20 Rehab Potential Rehab Potential Innapropriate for Skilled Therapy Discharge Plan OT Discharge Plan Pt appears to be at his baseline functionally. He is safe to return home once medically stable. Eval Complexity Eval Charge Codes 19344 - Low Complexity G Codes G -code Required No PHYSICIAN CERTIFICATION: I certify the specified therapy services for [place] Alford III are required, authorized, and reviewed every 30 days.
--- NOTE | 2020-03-11 13:57 | HMH.PTEV ---
Physical Therapy Evaluation Rehab PT IP Evaluation Start: 03/11/20 11:56 Freq: .once Status: Active Protocol: Document 03/11/20 13:52 DONNA (Rec: 03/11/20 13:57 DONNA [id number]) Subjective/History History History 69-year-old male patient presented to the emergency department with weakness and shortness of breath - pt had been dx'x w/ COVID but is now negative Subjective Subjective Pt c/o chronic cough w/ exertion or communication Rehab PT IP Eval Objective Appearance Patient Behavior Appropriate,Cooperative Patient Orientation Person,Place,Time,Name,Age, Birthday,Year Difficulty following instructions none Speech Pattern Clear Ambulation Patient Able to Ambulate Yes Ambulation Observation IP General Gait Pattern Observation No Deviations/Normal Ambulation Distance (feet) 25 Ambulation Assistive Device None Ambulation Ability Independent Balance Ability to Arise Able, w/o using arms Sitting Balance Steady, safe Standing Balance Narrow stance w/o support Dynamic Sitting Balance Ability Normal Dynamic Standing Balance Ability Good Transfers Bed Transfer Ability Independent Chair Transfer Ability Independent Sit to Stand Bed Transfer Ability Independent Sit to Stand Chair Transfer Ability Independent Rehab PT IP prob,goals,plan Problems Date of Evaluation: 03/11/20 Rehab Potential Rehab Potential Innapropriate for Skilled Therapy Discharge Plan PT Discharge Plan ptto dc home once medically stable G -code Required Yes Eval Complexity Eval Charge Codes 04289 - Low Complexity G Codes PT Current Status Mobility PT Current Status Modifier CH-0% impaired, limited or restricted PHYSICIAN CERTIFICATION: I certify the specified therapy services for [place] Alford III are required, authorized, and reviewed every 30 days.
--- NOTE | 2020-03-11 16:14 | PC.NURSE ---
Pt has been pleasant and cooperative this shift. A&O X4. No complaints of pain or SOA. Pt is on room air with sats. >90%. Lungs CTA. 2+ pitting edema noted to BLE. Pt ambulates independently to/from the bathroom and voids clear, yellow urine without issue. No BM this shift. Appetite is good and pt eats the majority of all meals. 20 G peripheral IV in the RT AC and LT hand are patent and SL. VSS Call light within reach. Will continue to monitor.
--- NOTE | 2020-03-12 03:33 | PC.WOUNDNOTE ---
Wound Location: buttocks Length: Width:4 cm Depth: Undermining Y/N: n Tunneling cm: Granulation %: Slough/necrotic tissue %: Inflammation/swelling Y/N:y Pain and/or tenderness Y/N:y Exudate: Serosanguinous yes Sanguinous Serosanguinous Seropurulent Purulent Color: Clear [place] Cloudy/milky [place] Red Green Yellow yes Brown [place] Blue Consistency: Thick Thin Amount: None Scant Small yes Moderate Large Odor Y/N:n
[2020-03-12 04:00] VITALS: BP 115/69; PULSE 106; RESP 20; TEMP 37.6; O2SAT 90
[2020-03-12 04:42] VITALS: BMI 30.4
--- NOTE | 2020-03-12 04:42 | PC.NURSE ---
no acute changes since prior assessment, no complaints of SOA or chest pain, remains on room air with O2 sats 90-91%, lungs CTA, ambulating to bathroom independently, pt did complain of pain between his buttocks, upon inspection sores found on each buttocks, picture on chart, pt HR 95-111
[2020-03-12 06:46] LABS: Basophils % 0.2 % (0.1-2.0); Eosinophils # 0.1 K/mm3 (0.0-0.4); Eosinophils % 0.6 % (0.1-12.0); Hematocrit 36.7 % (42.0-52.0); Hemoglobin 12.2 g/dL (14.1-18.0); Lymphocytes # 0.5 K/mm3 (0.7-4.5); Lymphocytes % 6.8 % (10-50); Mean Corpuscular HGB Conc 33.2 g/dL (31.8-35.4); Mean Corpuscular Hemoglobin 25.9 pg (27.0-31.2); Mean Corpuscular Volume 77.8 fl (80-94); Mean Platelet Volume 7.7 fl (7.4-10.4); Monocytes # 0.5 K/mm3 (0.1-1.0); Monocytes % 5.9 % (1.7-9.3); Neutrophils # 6.7 K/mm3 (1.8-7.8); Neutrophils % 86.5 % (37.0-80.0); Platelet Count 445 K/mm3 (142-424); Red Blood Count 4.72 M/mm3 (4.60-6.20); Red Cell Distribution Width 15.1 % (11.5-17.5); White Blood Count 7.7 K/mm3 (4.8-10.8)
[2020-03-12 06:51] LABS: Chloride 92 mmol/L (98-107); Potassium 3.2 mmoL/L (3.5-5.1); Sodium 133 mmol/L (136-145)
[2020-03-12 06:54] LABS: Anion Gap 9.2 mEq/L (5-15); Blood Urea Nitrogen 9 mg/dl (9-20); Calcium 8.5 mg/dl (8.4-10.2); Carbon Dioxide 35 mmol/L (22.0-30.0); Creatinine Clearance Estimated 94 mL/min (50-200); Estimated Glomerular Filt Rate 84 ml/min (>60); GFR (African American) 102 ML/MIN (>60); Glucose 152 mg/dl (74-100)
[2020-03-12 06:55] LABS: MANUAL DIFFERENTIAL MANUAL DIFFERENTIAL (MANUAL DIFF)
--- NOTE | 2020-03-12 07:48 | XR_ITS ---
PROCEDURE: XR CHEST PORTABLE CLINICAL HISTORY: PNM Follow-up pneumonia COMPARISON: CR XR CHEST PORTABLE from 02/25/2020 CR XR CHEST PORTABLE from 02/28/2020 CR XR CHEST PORTABLE from 03/09/[address] ANGIO CHEST from 03/09/2020 FINDINGS: The cardiomediastinal silhouette and pulmonary vascularity are within normal limits. Bilateral pneumonia once again noted right upper right lower and left lower lobe. Overall the pneumonia appears slightly worse compared to the previous exam. [place] screws are present in the right humeral head with osteoarthritic changes in both shoulders. No acute bony abnormalities. IMPRESSION: Slight worsening bilateral pneumonia Dictated by: Ashu Ruiz MD 03/12/2020 09:48 Ashu Ruiz MD in [place] 03/12/2020 09:48
[2020-03-12 07:55] VITALS: BP 141/59; PULSE 115; RESP 16; TEMP 36.8; O2SAT 93
--- NOTE | 2020-03-12 08:02 | HMH.PNCARD ---
Subjective Date: 03/12/20 Time: 08:02 Principal diagnosis: pneumonia due to COVID-19, SOB Interval history: 69-year-old white male sitting in bedside chair eating breakfast in no acute distress. Patient denies any chest pain, pressure or tightness. Still with some exertional shortness of breath, cough and fatigue but improving and is anxious to go home. Exam Vital signs and Labs for Last 24 Hours: Temp Pulse Resp BP Pulse Ox 98.3 F 115 H 16 141/59 H 93 L 03/12/20 07:55 03/12/20 07:55 03/12/20 07:55 03/12/20 07:55 03/12/20 07:55 Laboratory Results - last 24 hr 03/11/20 06:00: Total Counted 100, Neutrophils % (Manual) 80 H, Lymphocytes % (Manual) 16, Monocytes % (Manual) 4, Platelet Estimate Normal, RBC Morphology Normal 03/11/20 06:00: Triglycerides 61, Cholesterol 62 L, LDL Cholesterol Direct < 30.00 L, VLDL Cholesterol 12, HDL Cholesterol 21 L, Cholesterol/HDL Ratio 3.0 03/12/20 06:00: WBC 7.7, RBC 4.72, Hgb 12.2 L, Hct 36.7 L, MCV 77.8 L, MCH 25.9 L, MCHC 33.2, RDW 15.1, Plt Count 445 H, MPV 7.7, Neut % (Auto) 86.5 H, Lymph % (Auto) 6.8 L, [place] % (Auto) 5.9, Eos % (Auto) 0.6, Baso % (Auto) 0.2, Neut # (Auto) 6.7, Lymph # (Auto) 0.5 L, [place] # (Auto) 0.5, Eos # (Auto) 0.1, Baso # (Auto) 0.0 03/12/20 06:00: Sodium 133 L, Potassium 3.2 L, Chloride 92 L, Carbon Dioxide 35 H, Anion Gap 9.2, BUN 9, Creatinine 0.90, Estimated Creat Clear 94, Estimated GFR 84, Est GFR ( Amer) 102, Glucose 152 H, Calcium 8.5 I & O for Last 24 hours: Intake & Output 03/09/20 03/10/20 03/11/20 03/12/20 11:59 11:59 11:59 11:59 Intake Total 240 / 240 1650 / 1650 780 / 780 Output Total 1000 / 1000 0 / 0 Balance -760 / -760 1650 / 1650 780 / 780 Weight 200 lb 207 lb 3.752 oz 205 lb 3 oz Microbiology Reports for the Last 24 Hours: Microbiology 03/09/20 12:46 Blood Blood Culture - Preliminary NO GROWTH AFTER 48 HOURS 03/09/20 12:46 Blood Blood Culture - Preliminary NO GROWTH AFTER 48 HOURS 03/10/20 14:53 Sputum - Expectorated Sputum Gram Stain - Final 03/10/20 14:53 Sputum - Expectorated Sputum Sputum Culture - Preliminary 03/09/20 16:00 Urine,Clean Catch Urine Culture - Final Multiple organisms, suggests contamination. - Constitutional no acute distress - *Routine HEENT Exam Head: Present: normocephalic Eye: Present: EOMI, PERRL ENT: Present: mucous membranes moist - *Routine Neck Exam Present: supple. Absent: lymphadenopathy - *Routine Respiratory Exam Present: wheezes - *Routine Cardiovascular Exam Present: RRR - *Routine Abdominal Exam Present: soft, normoactive bowel sounds. Absent: tenderness - *Routine Extremities Exam Absent: cyanosis, clubbing, edema - *Routine Skin Exam Present: warm. Absent: rash - *Routine Neurological Exam Present: alert, oriented X3 Progress Note: A&P (1) Bacterial pneumonia Status: Acute (2) Hypokalemia Status: Acute (3) Physical deconditioning Status: Acute (4) Acquired lymphedema Status: Acute (5) Cough Status: Acute (6) Diabetes Status: Acute (7) Dyspnea Status: Acute (8) CAD (coronary artery disease) Status: Chronic (9) HHD (hypertensive heart disease) Status: Chronic (10) HTN (hypertension) Status: Chronic (11) SIRS (systemic inflammatory response syndrome) Status: Acute (12) Severe sepsis Status: Acute Assessment and Plan for All Diagnoses:: 1. COVID 19 with bilat pneumonia, per PCP and Pulmonary 2. history of HTN, currently holding meds due to hypotension which has improved. Will restart losartan 25 mg daily due to history of HHD. Echo shows normal LVEF this admission. 3. CAD, continue statin and plavix. 4. Mild tachycardia related to #1. Holding beta dhruv due to low BP and wheezing at this time. Plan to resume as outpatient. 5. Hypokalemia, on replacement therapy. Okay for d
[2020-03-12 08:29] LABS: Lymphocytes % 23 % (10-50); Monocytes % 2 % (2-9); Neutrophils % 73 % (42-76); Platelet Estimate Normal; RBC Morphology Normal; Total Cells Counted 100
--- NOTE | 2020-03-12 08:45 | HMH.DCSUM ---
General - General Admission date:: 03/09/20 Discharge date: 03/12/20 HPI HPI: 69-year-old male patient presented to the emergency department with weakness and shortness of breath. Oxygen saturations were in the low 90s on room air, he was tachycardic, with a temperature of 100.0. Potassium was 2.9 he was given 60 mEq of potassium p.o. Chest CT with PE protocol revealed negative for PE but did reveal bilateral pneumonia. He was given Levaquin and cefepime IV antibiotics, Lactate was elevated at 3.0. He does have bilateral lower extremity edema and reports it is no worse than usual, and he is a patient of the lymphedema clinic. COVID -19 PCR NEG, Serum IgG POS, IgM NEG He was diagnosed with COVID-19 pneumonia, hospitalized, and discharged 02/24. His was Covid positive also and upon discharge the quarantined together. He reports since then he has felt weak and tired, spending much of his time on the couch brand bed all day. He denies nausea, vomiting, diarrhea, 03/09/[address]: FINDINGS: No midline shift, mass effect, intracranial hemorrhage, hydrocephalus, or extra-axial fluid collection is evident. There is generalized atrophy with hypoattenuation of the periventricular white matter consistent with microangiopathic changes. The calvarium has an unremarkable appearance. There is minimal opacification of the mastoid sinuses. No sinus air-fluid level. IMPRESSION: No acute intracranial finding Dictated by: Joseph, This morning patient sitting up in side of the bed, he does have a nonproductive cough. Temperature during the night was maximum 101.4 and oxygen saturations are 91% on room air. potassium this morning is 3.3, Lactate after fluids 1.8 Hospital Course Hospital Course: 69-year-old male patient presented to the emergency department with weakness and shortness of breath. Oxygen saturations were in the low 90s on room air, he was tachycardic, with a temperature of 100.0. Potassium was 2.9 he was given 60 mEq of potassium p.o. Chest CT with PE protocol revealed negative for PE but did reveal bilateral pneumonia. He was given Levaquin and cefepime IV antibiotics, Lactate was elevated at 3.0. He does have bilateral lower extremity edema and reports it is no worse than usual, and he is a patient of the lymphedema clinic. COVID -19 PCR NEG, Serum IgG POS, IgM NEG He was diagnosed with COVID-19 pneumonia, hospitalized, and discharged 02/24. His was Covid positive also and upon discharge the quarantined together. He reports since then he has felt weak and tired, spending much of his time on the couch brand bed all day. He denies nausea, vomiting, diarrhea, 03/09/20 CXR: IMPRESSION: Persistent but improving bilateral pneumonia Dictated by: Joseph, 03/09/[address]: FINDINGS: No midline shift, mass effect, intracranial hemorrhage, hydrocephalus, or extra-axial fluid collection is evident. There is generalized atrophy with hypoattenuation of the periventricular white matter consistent with microangiopathic changes. The calvarium has an unremarkable appearance. There is minimal opacification of the mastoid sinuses. No sinus air-fluid level. IMPRESSION: No acute intracranial finding Dictated by: Joseph, 03/09/20 Chest CTA: IMPRESSION: 1. No central pulmonary embolus. The peripheral pulmonary arteries are not well opacified. Small PEs cannot be excluded. 2. Bilateral peripheral bandlike areas of the opacification/consolidation consistent with pneumonia and atelectatic change 3. 17 mm lesion of the left hepatic lobe indeterminate. Nonemergent MRI may provide further evaluation. 4. 15 mm hyperdense nodule the left kidney also indeterminate for which nonemergent MRI may provide further evaluation. Dictated by: Joseph, 03/10/20 ECHO: Conclusion 1. Technically difficult study, Definity contrast was utilized to delineate the endocardial surface, normal left bob
--- NOTE | 2020-03-12 09:31 | SW/DCPLANNER ---
Addendum entered by Jessica Lind 03/12/20 13:36: Tiara with [facility] stated that patient information has been reviewed and services will begin tomorrow. This patient will discharge home today. Addendum entered by Jessica Lind 03/12/20 11:39: Mabel with [facility] has stated that they are not accepting referral for today. Patient information has been faxed to [place] at [facility]. Original Note: I have spoke with this patient regarding discharge plans. Patient resides at home with his and will discharge back home today. Patient is agreeable to home health services for: long-term and lymphedema care. I have also ordered this patient PRN home oxygen. Patient is agreeable with this plan and prefer home health be set up locally with [facility]. This patient will discharge home later today.
[2020-03-12 12:00] VITALS: BP 127/71; PULSE 100; RESP 20; TEMP 36.9; O2SAT 93
--- NOTE | 2020-03-12 13:20 | PC.NURSE ---
THIS RN PROVIDED D/C INSTRUCTIONS TO PATIENT AND SPOUSE. SPOUSE STATED THAT PATIENT'S RIGHT LEG WAS MORE SWOLLEN THAN YESTERDAY. THIS RN STATED THAT PATIENT HAD BEEN SITTING UP IN THE CHAIR WITHOUT LEGS BEING ELEVATED FOR MOST OF THE DAY THUS FAR. THIS RN ASSESSED WEIGHT AND REPORTED TO THAT PATIENT HAD NOT GAINED ANY WEIGHT FROM ADMISSION. SPOUSE VERBALIZED AN UNDERSTANDING. THIS RN STATED TO PATIENT'S SPOUSE THAT DR. MENDOZA ASSESSED PATIENT THIS AM DURING ROUNDS. NO OTHER CONCERNS AT D/C.
[2020-03-13 16:17] LABS: Body Fluid Culture, Sterile Not indicated. (.); Organism ID Not indicated. (.); Specimen Source Urine (.); Streptococcus pneumoniae Ag Negative (Negative)
[2020-03-25 14:26] LABS: MRSA DNA PCR Negative
== END 2020-03-12 13:19 | disposition home or self-care (01) | DRG 193 ==
LOC: ER 12:51 → 2ND 17:20
PROVIDERS: Internal Medicine Pulmonary Disease; Nurse Practitioner Family; Physician Assistant; Admitting Provider Emergency Medicine; Emergency Provider Emergency Medicine; PCP Physician Assistant; Visit Provider Emergency Medicine
DX: J18.9 Pneumonia, unspecified organism (principal); J96.91 Respiratory failure, unspecified with hypoxia; R65.10 Systemic inflammatory response syndrome (SIRS) of non-infectious origin without acute organ dysfunction; Z86.19 Personal history of other infectious and parasitic diseases; I25.10 Atherosclerotic heart disease of native coronary artery without angina pectoris; I11.9 Hypertensive heart disease without heart failure; E11.9 Type 2 diabetes mellitus without complications; E78.5 Hyperlipidemia, unspecified; Z95.5 Presence of coronary angioplasty implant and graft; I89.0 Lymphedema, not elsewhere classified; Z79.84 Long term (current) use of oral hypoglycemic drugs
CPT/HCPCS: 36415; 70450; 71045; 71275; 80048; 80053; 80061; 81001; 82803; 83605; 84484; 85007; 85025; 86328; 87040; 87070; 87086; 87205; 87581; 87633; 87641; 87798; 87899; 93005; 93306; 96365; 96367; 97161; 97165; 99285; J0456; J1956; Q9957; Q9967

== ENCOUNTER → 2020-03-25 17:40 | Outpatient (CLI) | payer MEDICARE, SELFPAY ==
[2020-03-25 18:06] LABS: Basophils # 0.1 K/mm3 (0-0.2); Basophils % 0.8 % (0.1-2.0); Eosinophils # 0.1 K/mm3 (0.0-0.4); Eosinophils % 0.9 % (0.1-12.0); Hematocrit 40.3 % (42.0-52.0); Hemoglobin 13.2 g/dL (14.1-18.0); Lymphocytes # 0.9 K/mm3 (0.7-4.5); Lymphocytes % 10.9 % (10-50); Mean Corpuscular HGB Conc 32.7 g/dL (31.8-35.4); Mean Corpuscular Hemoglobin 25.8 pg (27.0-31.2); Mean Corpuscular Volume 78.8 fl (80-94); Mean Platelet Volume 7.7 fl (7.4-10.4); Monocytes # 0.5 K/mm3 (0.1-1.0); Monocytes % 5.7 % (1.7-9.3); Neutrophils # 6.5 K/mm3 (1.8-7.8); Neutrophils % 81.7 % (37.0-80.0); Platelet Count 496 K/mm3 (142-424); Red Blood Count 5.12 M/mm3 (4.60-6.20); Red Cell Distribution Width 16.2 % (11.5-17.5); White Blood Count 7.9 K/mm3 (4.8-10.8)
[2020-03-25 18:14] LABS: Alanine Aminotransferase 23 U/L (12-78); Albumin Level 3.2 g/dl (3.5-5.0); Alkaline Phosphatase 90 U/L (38-126); Anion Gap 12.4 mEq/L (5-15); Aspartate Amino Transferase 48 U/L (17-59); Bilirubin,Total 0.6 mg/dl (0.2-1.3); Blood Urea Nitrogen 11 mg/dl (9-20); Calcium 9.4 mg/dl (8.4-10.2); Carbon Dioxide 23 mmol/L (22.0-30.0); Chloride 103 mmol/L (98-107); Estimated Glomerular Filt Rate 84 ml/min (>60); GFR (African American) 102 ML/MIN (>60); Globulin 3.2 g/dL (1.3-3.2); Glucose 141 mg/dl (74-100); Potassium 4.4 mmoL/L (3.5-5.1); Sodium 134 mmol/L (136-145); Total Protein,Serum 6.4 g/dl (6.3-8.2)
[2020-03-25 18:44] LABS: Prostate Specific Ag Screen 0.4 ng/ml (0.0-4.0)
== END ==
PROVIDERS: Visit Provider Nurse Practitioner Family
DX: E11.9 Type 2 diabetes mellitus without complications (principal); R05 Cough; R06.02 Shortness of breath; U07.1 COVID-19; Z12.5 Encounter for screening for malignant neoplasm of prostate; J12.89 Other viral pneumonia
CPT/HCPCS: 80053; 83036; 85025; G0103

== ENCOUNTER → 2020-04-03 11:49 | Outpatient (CLI) | payer MEDICARE, SELFPAY ==
--- NOTE | 2020-04-03 11:54 | XR_ITS ---
PROCEDURE: XR CERVICAL SPINE 3V CLINICAL INDICATION: neck pain COMPARISON: CR SPCERVWFE XR cervical spine w flex/ext from 10/09/2017 FINDINGS: There is straightening of the normal curvature suggesting muscle spasm. C1 through C7 are visualized and appear intact. The C7-T1 disc space is not adequately visualized however. There is prominent anterior osteophytic spurring at the C5-6 level with moderate disc space narrowing similar to the previous exam though the disc space narrowing is slightly more prominent. There is moderate neural foraminal narrowing on the right side at C5-6 secondary to spurring of the uncinate joints and this as shown interval progression when compared to the previous study. The left neural foramina appear grossly normal. The prevertebral soft tissues are normal and the odontoid is normal.. IMPRESSION: Findings suggesting muscle spasm along with degenerate disc disease C5-6 and moderate neural foraminal narrowing right-sided C5-6 Dictated by: Dr. Wiliam Saldivar MD 04/03/2020 16:26 Dr. Wiliam Saldivar MD in [place] 04/03/2020 16:26
== END ==
PROVIDERS: PCP Nurse Practitioner Family; Visit Provider Nurse Practitioner Family
DX: M54.2 Cervicalgia (principal)
CPT/HCPCS: 72040

== ENCOUNTER → 2020-05-04 07:43 | Outpatient (CLI) | payer MEDICARE, SELFPAY ==
[2020-05-04 08:10] LABS: Basophils % 0.9 % (0.1-2.0); Eosinophils # 0.2 K/mm3 (0.0-0.4); Eosinophils % 3.8 % (0.1-12.0); Hemoglobin 13.3 g/dL (14.1-18.0); Lymphocytes # 1.5 K/mm3 (0.7-4.5); Lymphocytes % 31.2 % (10-50); Mean Corpuscular HGB Conc 30.9 g/dL (31.8-35.4); Mean Corpuscular Hemoglobin 24.7 pg (27.0-31.2); Mean Corpuscular Volume 79.7 fl (80-94); Mean Platelet Volume 7.3 fl (7.4-10.4); Monocytes # 0.3 K/mm3 (0.1-1.0); Monocytes % 5.7 % (1.7-9.3); Neutrophils # 2.8 K/mm3 (1.8-7.8); Neutrophils % 58.3 % (37.0-80.0); Platelet Count 356 K/mm3 (142-424); Red Blood Count 5.39 M/mm3 (4.60-6.20); Red Cell Distribution Width 16.8 % (11.5-17.5); White Blood Count 4.7 K/mm3 (4.8-10.8)
[2020-05-07 19:47] LABS: QuantiFERON-TB Gold Plus Negative (Negative)
[2020-05-07 22:00] LABS: Aspergillus flavus Negative (Neg:<1:1); Aspergillus fumigatus Negative (Neg:<1:1); Aspergillus niger Negative (Neg:<1:1)
[2020-05-07 23:10] LABS: Blastomyces Antibody Negative (Neg:<1:1)
== END ==
PROVIDERS: Visit Provider Internal Medicine Pulmonary Disease
DX: J45.909 Unspecified asthma, uncomplicated (principal); J84.10 Pulmonary fibrosis, unspecified
CPT/HCPCS: 36415; 85025; 86480; 86606; 86612

== ENCOUNTER → 2020-06-02 13:55 | Outpatient (POV) | payer MEDICARE, SELFPAY | PROVIDERS: Visit Provider Dermatology | DX: Z00.00 Encounter for general adult medical examination without abnormal findings (principal) ==

== ENCOUNTER 2020-06-22 15:00 | Outpatient (RCR) | payer MEDICARE, SELFPAY ==
--- NOTE | 2020-05-12 15:27 | HMH.PTOPEV ---
PT Outpatient Evaluation Rehab PT Outpatient Evaluation Start: 05/12/20 15:05 Freq: Status: Active Protocol: Document 05/12/20 15:17 COLLEEN (Rec: 05/12/20 15:27 COLLEEN [id number]) Electronically Signed By Augusto Pepe, PT 05/12/20 15:17 Outpatient Therapy Subjective History Subjective History Pt reports falling backward at home ~4 weeks ago, hitting head, and 'feeling a pop' in the neck. Pt reports chronic neck pain, stiffness, and crepitus since injury w/ referred pain into B UTmm, and suboccipital region. PMH: covid hospitalization w/ generalized weakness/ deconditioning Chief Complaint Pain,Stiff,Clicks Symptom Type Ache,Throb,Dull Symptoms Relieved By Rest/Positioning,Heat Symptoms Aggravated By Physical Activity,Lifting Prior Functional Limitations Reaching,Lifting,Housework Current Functional Limitations Reaching,Lifting,Housework, Driving Symptom Description Constant but Variable Level of pain today (0-10) 6 Pain scale - at its best (0-10) 5 Pain scale - at its worst (0-10) 9 Cervical Eval Palpation Cervical Muscles R Cervical Paraspinal,L Cervical Paraspinal,R CT Junction,L CT Junction,R Upper Trapezius,L Upper Trapezius Cervical/Thoracic Palpation Findings Tenderness,Trigger Point, Muscle Guarding Posture Head/C-Spine Posture Sitting Position Flexed Head/C-Spine Posture Standing Position Flexed Flexibility Deficits Upper Trapezius Muscle Length (R) Moderate Tightness,(L) Moderate Tightness Scalene Group Muscle Length (R) Mild Tightness,(L) Mild Tightness Sternocleidomastoid Muscle Length (R) Mild Tightness,(L) Mild Tightness Passive Joint Mobility Cervical PIVM Dec: R OA L OA R AA L AA R C2/3 L C2/3 R C3/4 L C3/4 R C4/5 L C4/5 R C5/6 L C5/6 R C6/7 L C6/7
--- NOTE | 2020-06-11 16:02 | HMH.RHREAS ---
Rehab Reassessment Rehab OP Re-assessment Start: 06/11/20 15:57 Freq: Status: Active Protocol: Document 06/11/20 15:57 CARLOTAEDUARSAWYER (Rec: 06/11/20 16:02 COLLEEN [id number]) Electronically Signed By Augusto Pepe, PT 06/11/20 15:57 Rehab Re-assessment Subjective Subjective PT REPORTS SLIGHT IMPROVEMENT IN NECK PAIN AND OVERALL FUNCTION SINCE I EVAL, PAIN IN CERVICAL SPINE @ 4-5/10 ON VAS Objective Objective Notes CROM: FLX 0-45, EXT 0-5, B SB 0-10, B ROT 0-20 MMT: L DELTOID 4-/5, R DELTOID 4/5, B BICEP 4+/5, B TRICEP 4 +/5 TTP: B UT 2/4, B CERVICAL PARA 2/4, B SUBOCC. 2/4 Assessment Progress Assessment Slower Than Expected Assessment Notes SLIGHT IMPROVEMENT IN STRENGTH Patient goals met STG'S 05/31 Goals Not Met STG'S 07/01, LTG'S 12/03 Plan Plan PT TO CONT. W/SKILLED P.T. TO MAKE FURTHER IMPROVEMENTS IN CROM, STRENGTH, AND TTP TO ALLOW FOR OPTIMAL FUNCTION Frequency of Therapy 1-2X/WK Duration of therapy 2-4WKS Time and Billing Re-Eval Time 15 Re-Eval Billing Units 0 PHYSICIAN CERTIFICATION: I certify the specified therapy services for Y[place]diss Alford III are required, authorized, and reviewed every 30 days.
== END 2020-10-07 14:52 | disposition home or self-care (01) ==
LOC: PT 15:00
PROVIDERS: Visit Provider Nurse Practitioner Family
DX: M54.2 Cervicalgia (principal); R53.1 Weakness
CPT/HCPCS: 97010; 97014; 97035; 97110; 97140; 97163; 97164; G0283

== ENCOUNTER 2020-06-25 15:30 | Outpatient (RCR) | payer MEDICARE, SELFPAY ==
--- NOTE | 2020-05-21 14:28 | HMH.PTOPWND ---
Rehab Outpt Wound Evaluation Rehab OP Wound Evaluation Start: 05/21/20 14:21 Freq: Status: Active Protocol: Document 05/21/20 14:21 YOSEPH (Rec: 05/21/20 14:28 PHORNE [id number]) Electronically Signed By Scott Gallegos, PT 05/21/20 14:21 Subjective/History History History Pt is 69 yowm who presents with c/o R LE edema for 15 or 20 yrs, worse with increased standing. He reports no c/o pain at rest, but numbness throughout B feet. He recently recovered from COVID and has some residual decreased endurance from this. He reports elevation does not seem to decrease his swelling, but generally staying off of his feet does. Subjective Subjective No c/o LE pain currently. Edema is moderately fibrotic with overlying 2+ pitting edema. Lymphedema Eval Classification of Lymphedema Secondary Lymphedema Yes Stemmer's sign Stemmer's Sign yes Stage of Lymphedema Lymphedema stages Stage II (Pitting edema, increased fibrosis w/ decreased pitting) Skin Changes Dry Skin Yes Taut, Shiny Skin Yes Redness Yes Discoloration of Skin Yes Other Changes Yes Affected Extremities Areas Affected by Lymphedema/Edema Right Lower Extremity Wound Problems/Impairments Impairments Problems/Impairmments Impaired Endurance,Impaired Walking,Impaired Standing, Impaired Recreational Activities,Increased Edema, Lymphedema Present,Subjective C/O Pain,Impaired Self Care/ Self Management Prognosis Rehab Potential Good Clinical Impression Consistent with Diagnosis Yes Short Term Goals Number of Weeks 4 Increase Ability to Stand Yes Decrease Edema Yes Patient to Understand Lymphedema Yes Treatment and Exercises Decrease Girth Measurments by (cm) Yes: by 10 cm Nursing Home Goals Number of Weeks 8 Increase Ability to Walk Yes Decrease Lymphedema Yes Patient to be Ind w/ HEP Yes Patient to be Ind w/ [place] Yes Compression Garments
== END 2020-06-25 15:35 | disposition home or self-care (01) ==
LOC: PT 15:30
PROVIDERS: Visit Provider Nurse Practitioner Family
DX: M79.661 Pain in right lower leg (principal); R60.0 Localized edema
CPT/HCPCS: 97140; 97162; 97760

== ENCOUNTER → 2020-06-26 09:06 | Outpatient (CLI) | payer MEDICARE, SELFPAY ==
[2020-06-26 09:59] LABS: Alanine Aminotransferase 26 U/L (12-78); Albumin Level 4.4 g/dl (3.5-5.0); Albumin/Globulin Ratio 1.6 (1.1-1.8); Alkaline Phosphatase 70 U/L (38-126); Anion Gap 13.6 mEq/L (5-15); Aspartate Amino Transferase 43 U/L (17-59); Basophils % 0.8 % (0.1-2.0); Bilirubin,Total 0.4 mg/dl (0.2-1.3); Blood Urea Nitrogen 18 mg/dl (9-20); Calcium 9.7 mg/dl (8.4-10.2); Carbon Dioxide 25 mmol/L (22.0-30.0); Chloride 103 mmol/L (98-107); Cholesterol 144 mg/dl (140-200); Eosinophils # 0.1 K/mm3 (0.0-0.4); Eosinophils % 2.6 % (0.1-12.0); Estimated Glomerular Filt Rate 84 ml/min (>60); GFR (African American) 102 ML/MIN (>60); Globulin 2.8 g/dL (1.3-3.2); Glucose 184 mg/dl (74-100); HDL Cholesterol 72 mg/dl (40-60); Hematocrit 41.3 % (42.0-52.0); Hemoglobin 12.9 g/dL (14.1-18.0); Lymphocytes # 1.2 K/mm3 (0.7-4.5); Lymphocytes % 24.3 % (10-50); Mean Corpuscular HGB Conc 31.3 g/dL (31.8-35.4); Mean Corpuscular Hemoglobin 24.3 pg (27.0-31.2); Mean Corpuscular Volume 77.5 fl (80-94); Mean Platelet Volume 7.8 fl (7.4-10.4); Monocytes # 0.4 K/mm3 (0.1-1.0); Monocytes % 8.1 % (1.7-9.3); Neutrophils # 3.1 K/mm3 (1.8-7.8); Neutrophils % 64.2 % (37.0-80.0); Platelet Count 312 K/mm3 (142-424); Potassium 4.6 mmoL/L (3.5-5.1); Red Blood Count 5.33 M/mm3 (4.60-6.20); Red Cell Distribution Width 15.8 % (11.5-17.5); Sodium 137 mmol/L (136-145); Total Protein,Serum 7.2 g/dl (6.3-8.2); Triglycerides 83 mg/dl (30-150); VLDL Cholesterol 17 mg/dL (0-40); White Blood Count 4.8 K/mm3 (4.8-10.8)
[2020-06-26 10:11] LABS: Direct LDL Cholesterol 59.61 mg/dL (100-129)
[2020-06-26 10:17] LABS: 25-OH Vitamin D, Total 46.2 ng/mL (30-100)
[2020-06-26 10:30] LABS: Thyroid Stimulating Hormone 2.12 uIU/mL (0.465-4.68)
[2020-06-26 11:13] LABS: Hemoglobin A1C 8.7 % (4.0-6.0)
[2020-06-26 11:37] LABS: Microalbumin/Creatinine Ratio 115.5
[2020-06-26 11:41] LABS: Creatinine,Urine Random 124 mg/dL (Not Estab.)
[2020-06-26 13:05] LABS: Hemoglobin A1C 8.9 % (4.0-6.0)
== END ==
PROVIDERS: Visit Provider Nurse Practitioner Family
DX: R06.02 Shortness of breath; D50.9 Iron deficiency anemia, unspecified; E11.9 Type 2 diabetes mellitus without complications; E55.9 Vitamin D deficiency, unspecified; E78.5 Hyperlipidemia, unspecified; I10 Essential (primary) hypertension; I25.10 Atherosclerotic heart disease of native coronary artery without angina pectoris; R80.9 Proteinuria, unspecified; R53.81 Other malaise; R05 Cough
CPT/HCPCS: 36415; 80053; 80061; 82043; 82306; 82570; 83036; 84436; 84443; 85025

== ENCOUNTER → 2020-06-26 09:46 | Outpatient (CLI) | payer MEDICARE, SELFPAY ==
--- NOTE | 2020-06-26 10:38 | XR_ITS ---
PROCEDURE: XR CHEST 2V CLINICAL HISTORY: PNM Follow Up COMPARISON: CR XR CHEST PORTABLE from 02/28/2020 CR XR CHEST PORTABLE from 03/09/[address] ANGIO CHEST from 03/09/2020 CR XR CHEST PORTABLE from 03/12/2020 FINDINGS: Background of chronic interstitial changes are noted. Bibasal atelectasis. No lobar consolidation, pleural effusions or pneumothorax. Cardiac size and central pulmonary vasculature within normal limits. Tortuous descending thoracic aorta is noted. IMPRESSION: Bibasilar atelectasis. No lobar consolidation or pleural effusions. Dictated by: Patti Mills 06/26/2020 15:34 Patti Mills in [place] 06/26/2020 15:34
== END ==
PROVIDERS: PCP Nurse Practitioner Family; Visit Provider Internal Medicine Pulmonary Disease
DX: J44.9 Chronic obstructive pulmonary disease, unspecified; R06.02 Shortness of breath; I10 Essential (primary) hypertension; I25.10 Atherosclerotic heart disease of native coronary artery without angina pectoris; E78.5 Hyperlipidemia, unspecified; E11.9 Type 2 diabetes mellitus without complications; E55.9 Vitamin D deficiency, unspecified; D50.9 Iron deficiency anemia, unspecified; R80.9 Proteinuria, unspecified
CPT/HCPCS: 36415; 71046; 80053; 80061; 82043; 82306; 82570; 83036; 84436; 84443; 85025; 94618

== ENCOUNTER → 2020-07-13 13:25 | Outpatient (CLI) | payer MEDICARE, SELFPAY ==
--- NOTE | 2020-07-13 13:27 | CA_ITS ---
APPROVED REPORT Echocardiography Technologist: Malgorzata Gonzalez RVT Laterality: Bilateral Study Quality: Good Indications: gunnar Risk Factors Hypertension: Hyperlipidemia Doppler Spectral Velocity Analysis ECA (R) 80.10/12.00 cm/s ECA (L) 68.10/10.90 cm/s dICA (R) 93.50/32.90 cm/s dICA (L) 51.40/21.80 cm/s Lopez (R) 96.50/35.90 cm/s Lopez (L) 53.30/22.50 cm/s pICA (R) 75.60/27.70 cm/s pICA (L) 43.70/19.90 cm/s dCCA (R) 73.30/21.00 cm/s dCCA (L) 62.30/14.80 cm/s pCCA (R) 151.70/32.90 cm/s pCCA (L) 63.60/13.50 cm/s Vert (R) 41.90/12.70 cm/s Vert (L) 21.40/7.50 cm/s ICA/CCA 1.32 ICA/CCA 0.86 Findings Study suggests 20-49% stenosis of the right internal cartod artery. Study suggests 20-49% stenosis of the left internal cartoid artery. Antegrade flow seen bilateral vertebral arteries. Conclusion Study suggests 20-49% stenosis of the right internal cartod artery. Study suggests 20-49% stenosis of the left internal cartoid artery. Antegrade flow seen bilateral vertebral arteries. Electronically signed by : Ashu Ruiz MD 07/13/2020 18:29:44
--- NOTE | 2020-07-13 14:34 | MR_ITS ---
PROCEDURE: MR CERVICAL SPINE WO CON CLINICAL INDICATION: neck pain Unable to move neck from side to side. Pt fell and heard a pop in neck [id number] ago. Headache. COMPARISON: MR SPCERVWO MR cervical spine wo con from 10/23/[address] HEAD/BRAIN WO CON from 03/09/2020 TECHNIQUE: Standard multiplanar multiecho sequences are performed without contrast. 3-D MIP and myelographic images are also rendered and reviewed FINDINGS: There is reversal of the cervical lordosis. The craniocervical junction has an unremarkable appearance. There is slightly prominent decreased T2 signal along the posterior aspect the odontoid process and may be related to prominent transverse ligament not significantly changed. No cord impingement. C2-C3: Mild right-sided foraminal narrowing from uncovertebral hypertrophy. Canal stenosis at 10 mm. C3-C4: 3 mm anterolisthesis of C3 with bulging disc and canal stenosis similar to the previous exam. There is bilateral foraminal narrowing. C4-C5: Concentric bulging disc with endplate hypertrophic change with canal stenosis of 7 mm and mild impingement upon the cord anteriorly along with bilateral lateral recess and foraminal narrowing. The bulging disc may be slightly worse compared to the previous exam however, there was good degree of motion artifact on that study. This disc is slightly eccentric toward the right. C5-C6: Degenerative disc disease with bulging disc with a small left paracentral disc protrusion with canal stenosis with minimal impingement upon the cord on the left anteriorly. There is endplate spurring at this level. There is severe right-sided foraminal narrowing from uncovertebral hypertrophy. C6-C7: Unremarkable. C7-T1: Minimal anterolisthesis of C7 of 3 mm with mild bulging disc. IMPRESSION: Multilevel cervical spondylosis with canal stenosis, mild cord impingement, lateral recess narrowing, and foraminal narrowing with degenerative disc disease and endplate hypertrophic change. Please see above for detailed description at each level. Dictated by: Ashu Ruiz MD 07/15/2020 10:25 Ashu Ruiz MD in [place] 07/15/2020 10:25
== END ==
PROVIDERS: PCP Nurse Practitioner Family; Visit Provider Nurse Practitioner Family
DX: E78.2 Mixed hyperlipidemia (principal); I11.9 Hypertensive heart disease without heart failure; I25.10 Atherosclerotic heart disease of native coronary artery without angina pectoris; I65.23 Occlusion and stenosis of bilateral carotid arteries; M54.2 Cervicalgia
CPT/HCPCS: 72141; 76376; 93880

== ENCOUNTER → 2020-09-07 08:46 | Outpatient (CLI) | payer MEDICARE, SELFPAY ==
[2020-09-10 06:45] LABS: QuantiFERON-TB Gold Plus Positive (Negative)
== END ==
PROVIDERS: Visit Provider Internal Medicine
DX: Z11.1 Encounter for screening for respiratory tuberculosis (principal); R53.83 Other fatigue
CPT/HCPCS: 36415; 86480

== ENCOUNTER → 2020-09-09 07:59 | Outpatient (CLI) | payer MEDICARE, SELFPAY ==
--- NOTE | 2020-09-09 07:59 | MR_ITS ---
PROCEDURE INFORMATION: Exam: MR Right Lower Extremity Joint Without Contrast, Knee Exam date and time: 09/09/2020 7:59 AM Age: 70 years old Clinical indication: Right; Patient HX: Frequent falls---. Pain in knee when bending---. Pain around patella--. No prior---. History of acl and meniscus tear; Additional info: R knee pain TECHNIQUE: Imaging protocol: MR of the Right lower extremity joint without contrast. Exam focused on the knee. COMPARISON: No relevant prior studies available. FINDINGS: Bones and cartilage: Severe tricompartmental osteoarthrosis with full-thickness chondral loss and large suprapatellar osteophyte. No concerning marrow signal alterations. Joint spaces: Large joint effusion without synovitis or any intra-articular ossific bodies. Bursae: Fluid signal in the expected area of Singer's cyst. Medial meniscus: Degenerative signal involving the posterior horn. No tear. Lateral meniscus: Extensive tearing of the lateral meniscus. Anterior cruciate ligament: Anterior cruciate ligament is not well delineated which is concerning for age indeterminate tear of the ACL. Posterior cruciate ligament: Posterior cruciate ligament appears to be intact. Medial capsule and supporting structures: Unremarkable. No tear. Lateral capsule and supporting structures: Unremarkable. No tear. Extensor mechanism of knee: Intact extensor mechanism with prominent suprapatellar enthesophyte. Muscles: Unremarkable. Soft tissues: Subcutaneous edema anteriorly and posteriorly with no organized fluid collections. Other findings: Motion artifact limits assessment. IMPRESSION: 1. Moderate to severe tricompartmental osteoarthrosis. 2. Nonvisualized anterior cruciate ligament concerning for ligamentous disruption. Next item large suprapatellar joint effusion without intra-articular ossific bodies.
== END ==
PROVIDERS: PCP Nurse Practitioner Family; Visit Provider Nurse Practitioner Family
DX: G89.29 Other chronic pain (principal); M25.561 Pain in right knee
CPT/HCPCS: 73721

== ENCOUNTER → 2020-09-11 11:36 | Outpatient (CLI) | payer MEDICARE, SELFPAY ==
--- NOTE | 2020-09-11 11:41 | XR_ITS ---
PROCEDURE: XR CHEST 2V CLINICAL HISTORY: DISORDER INVOLVING THE IMMUNE MECHANISM,UNSPECIFIED COMPARISON: CR XR CHEST PORTABLE from 03/09/[address] ANGIO CHEST from 03/09/2020 CR XR CHEST PORTABLE from 03/12/2020 CR XR CHEST 2V from 06/26/2020 FINDINGS: There is mild bibasilar scar versus atelectasis. No definite focal infiltrate. Heart size normal. No pleural effusion or pneumothorax. No acute bony abnormality. IMPRESSION: Mild bibasilar scar versus atelectasis. No focal infiltrate or overt failure. Dictated by: De Hilario MD 09/11/2020 12:29 De Hilario MD in [place] 09/11/2020 12:29
== END ==
PROVIDERS: PCP Nurse Practitioner Family; Visit Provider Internal Medicine
DX: D89.9 Disorder involving the immune mechanism, unspecified (principal); M06.00 Rheumatoid arthritis without rheumatoid factor, unspecified site; R53.83 Other fatigue
CPT/HCPCS: 71046

== ENCOUNTER 2020-10-07 19:44 | Observation (INO) | payer MEDICARE, SELFPAY ==
[2020-10-07 19:44] VITALS: BP 146/84; PULSE 116; RESP 22; TEMP 39.2; O2SAT 96; BMI 32.0
[2020-10-07 20:04] VITALS: BP 146/84; PULSE 113; O2SAT 95
--- NOTE | 2020-10-07 20:04 | XR_ITS ---
PROCEDURE INFORMATION: Exam: XR Chest Exam date and time: 10/07/2020 8:04 PM Age: 70 years old Clinical indication: Fever TECHNIQUE: Imaging protocol: XR of the chest. Views: 2 views. COMPARISON: CR XR CHEST 2V 09/11/2020 11:42 AM FINDINGS: Lungs: Mild bibasilar atelectasis. No definite consolidation. A small nodular opacity is again seen projecting over the right base and is stable from comparison. Pleural spaces: Unremarkable. No pleural effusion. No pneumothorax. Heart/Mediastinum: Unremarkable. No cardiomegaly. Bones/joints: Unremarkable. IMPRESSION: 1. Mild bibasilar atelectasis. No definite consolidation. 2. Small nodular opacity again seen over the right base. Follow-up with nipple markers is recommended.
--- NOTE | 2020-10-07 20:06 | ECG_ITS ---
APPROVED REPORT Exam: Resting ECG HR:108 bpm ECG Measurements Heart Rate 108 AXES DE 130 P 54 QRSd 78 QRS 54 QT 320 T 52 QTc 428 Conclusion Sinus tachycardia Possible Left atrial enlargement Borderline ECG Electronically signed by : Walker Hill, 10/08/2020 21:34:07
[2020-10-07 20:22] LABS: Microscopic, Urine URINE MICROSCOPIC (MICROSCOPIC)
[2020-10-07 20:30] VITALS: BP 133/74; PULSE 118; O2SAT 95
[2020-10-07 20:49] LABS: Appearance,Urine CLEAR (Clear); Bilirubin,Urine Negative (Negative); Blood, Urine Negative (Negative); Color,Urine YELLOW (Yellow); Glucose,Urine (UA) Negative (Negative); Ketones,Urine Negative (Negative); Leukocyte Esterase,Urine Negative (Negative); Nitrate,Urine Negative (Negative); PH,Urine 6.5 (5.0-8.5); Protein,Urine 2+ (Negative); Specific Gravity, Urine 1.025 (1.005-1.030); Urobilinogen,Urine 0.2 EU/dl (0.2)
[2020-10-07 20:54] LABS: Coronavirus 19, PCR Not Detected (NotDetected); Influenza A, PCR Not Detected (NotDetected); Influenza B, PCR Not Detected (NotDetected)
[2020-10-07 21:00] VITALS: BP 124/70; PULSE 95; O2SAT 95
[2020-10-07 21:16] LABS: Alanine Aminotransferase 23 U/L (12-78); Albumin Level 4.5 g/dl (3.5-5.0); Albumin/Globulin Ratio 1.5 (1.1-1.8); Alkaline Phosphatase 73 U/L (38-126); Anion Gap 14.1 mEq/L (5-15); Aspartate Amino Transferase 40 U/L (17-59); Bilirubin,Total 1.8 mg/dl (0.2-1.3); Blood Urea Nitrogen 16 mg/dl (9-20); Calcium 9.2 mg/dl (8.4-10.2); Carbon Dioxide 23 mmol/L (22.0-30.0); Chloride 97 mmol/L (98-107); Creatinine Clearance Estimated 89 mL/min (50-200); Estimated Glomerular Filt Rate 67 ml/min (>60); GFR (African American) 81 ML/MIN (>60); Globulin 3.1 g/dL (1.3-3.2); Glucose 143 mg/dl (74-100); Lactic Acid 1.3 mmol/L (0.7-2.1); Potassium 4.1 mmoL/L (3.5-5.1); Sodium 130 mmol/L (136-145); Total Protein,Serum 7.6 g/dl (6.3-8.2)
--- NOTE | 2020-10-07 21:16 | HMH.EDWEAK ---
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 The time I documented below is in addition to time spent performing reported procedures but includes the following listed in this critical care notation. Medical Decision Making - Medical Records Medical records reviewed: Yes: I reviewed the patient's medical records. - Jevon Inquiry Pt receiving controlled substance: No Vital Signs: 10/07/20 19:44 10/07/20 20:04 10/07/20 20:30 Temperature 102.6 F H Temperature Source Rectal Pulse Rate 113 H 118 H Pulse Rate [Right] 116 H Respiratory Rate 22 Blood Pressure 146/84 H 133/74 Blood Pressure [Right Arm] 146/84 H Blood Pressure Mean 112 97 Blood Pressure Mean [Right Arm] 104 02 Sat by Pulse Oximetry 96 95 95 Oxygen Delivery Method Room Air 10/07/20 21:00 10/07/20 22:00 Temperature Temperature Source Pulse Rate 95 H 88 Pulse Rate [Right] Respiratory Rate Blood Pressure 124/70 116/77 Blood Pressure [Right Arm] Blood Pressure Mean 90 94 Blood Pressure Mean [Right Arm] 02 Sat by Pulse Oximetry 95 96 Oxygen Delivery Method - Lab Data Lab results reviewed: Yes: I reviewed the patient's lab results. Lab Results 10/07/20 20:05: WBC 14.4 H, RBC 5.17, Hgb 12.5 L, Hct 36.9 L, MCV 71.4 L, MCH 24.1 L, MCHC 33.8, RDW 16.8, Plt Count 241, MPV 7.7, Neut % (Auto) 89.1 H, Lymph % (Auto) 6.2 L, [place] % (Auto) 4.0, Eos % (Auto) 0.1, Baso % (Auto) 0.7, Neut # (Auto) 12.8 H, Lymph # (Auto) 0.9, [place] # (Auto) 0.6, Eos # (Auto) 0.0, Baso # (Auto) 0.1 10/07/20 20:05: Sodium 130 L, Potassium 4.1, Chloride 97 L, Carbon Dioxide 23, Anion Gap 14.1, BUN 16, Creatinine 1.10, Estimated Creat Clear 89, Estimated GFR 67, Est GFR ( Amer) 81, Glucose 143 H, Calcium 9.2, Total Bilirubin 1.8 H, AST 40, ALT 23, Alkaline Phosphatase 73, Troponin I < 0.01, C-Reactive Protein 121.7 H, Total Protein 7.6, Albumin 4.5, Globulin 3.1, Albumin/Globulin Ratio 1.5, Procalcitonin 0.993 10/07/20 20:05: Lactate 1.3 10/07/20 20:18: Urine Color Yellow, Urine Appearance Clear, Urine pH 6.5, Ur Specific [place] 1.025, Urine Protein 2+, Urine Glucose (UA) Negative, Urine Ketones Negative, Urine Blood Negative, Urine Nitrate Negative, Urine Bilirubin Negative, Urine Urobilinogen 0.2, Ur Leukocyte Esterase Negative, Urine RBC Occasional, Urine WBC Occasional, Ur Squamous Epith Cells None, Urine Bacteria None 10/07/20 20:38: SARS-CoV-2 (PCR) Not detected, Influenza A Untype (PCR) Not detected, Influenza Type B (PCR) Not detected Result diagrams: 10/07/20 20:05 10/07/20 20:05 Orders (Tests/Meds): ED MEDICATIONS Generic Name Dose Route Start Last Admin Trade Name Freq PRN Reason Stop Dose Admin Sodium Chloride 1,000 mls @ 999 mls/hr 10/07/20 20:15 10/07/20 20:13 Sod Chlor 0.9% 1000ml Bag IV 10/07/20 21:15 999 mls/hr .Q1H1M SWATHI Administration Vancomycin HCl 1,750 mg/ 250 mls @ 125 mls/hr 10/07/20 22:07 10/07/20 22:08 Sodium Chloride IV 10/08/20 00:06 125 mls/hr ONCE ONE Administration Protocol Miscellaneous 1 each 10/07/20 22:
[2020-10-07 21:17] LABS: Basophils # 0.1 K/mm3 (0-0.2); Basophils % 0.7 % (0.1-2.0); Eosinophils % 0.1 % (0.1-12.0); Hematocrit 36.9 % (42.0-52.0); Hemoglobin 12.5 g/dL (14.1-18.0); Lymphocytes # 0.9 K/mm3 (0.7-4.5); Lymphocytes % 6.2 % (10-50); Mean Corpuscular HGB Conc 33.8 g/dL (31.8-35.4); Mean Corpuscular Hemoglobin 24.1 pg (27.0-31.2); Mean Corpuscular Volume 71.4 fl (80-94); Mean Platelet Volume 7.7 fl (7.4-10.4); Monocytes # 0.6 K/mm3 (0.1-1.0); Neutrophils # 12.8 K/mm3 (1.8-7.8); Neutrophils % 89.1 % (37.0-80.0); Platelet Count 241 K/mm3 (142-424); Red Blood Count 5.17 M/mm3 (4.60-6.20); Red Cell Distribution Width 16.8 % (11.5-17.5); White Blood Count 14.4 K/mm3 (4.8-10.8)
[2020-10-07 21:21] LABS: C-Reactive Protein 121.7 mg/L (0-4)
--- NOTE | 2020-10-07 21:26 | CT_ITS ---
PROCEDURE INFORMATION: Exam: CT Head Without Contrast Exam date and time: 10/07/2020 9:26 PM Age: 70 years old Clinical indication: Altered mental status/memory loss; Confusion or disorientation; Patient HX: Severe confusion with generalized weakness. TECHNIQUE: Imaging protocol: Computed tomography of the head without contrast. Radiation optimization: All CT scans at this facility use at least one of these dose optimization techniques: automated exposure control; mA and/or kV adjustment per patient size (includes targeted exams where dose is matched to clinical indication); or iterative reconstruction. COMPARISON: CT HEAD/BRAIN WO CON 03/09/2020 1:04 PM FINDINGS: Brain: Normal. No hemorrhage. Unremarkable white matter. No mass effect. Cerebral ventricles: No ventriculomegaly. Paranasal sinuses: Visualized sinuses are unremarkable. No fluid levels. Mastoid air cells: Visualized mastoid air cells are well aerated. Bones/joints: Unremarkable. No acute fracture. Soft tissues: Unremarkable. Other findings: No reconstructions provided. IMPRESSION: No acute intracranial pathology
[2020-10-07 21:31] LABS: MANUAL DIFFERENTIAL MANUAL DIFFERENTIAL (MANUAL DIFF)
[2020-10-07 21:33] LABS: Troponin I < 0.01 ng/ml (0.00-0.034)
[2020-10-07 21:35] LABS: RBC,Urine Occasional #/hpf (0-3); WBC,Urine Occasional #/hpf (0-3)
[2020-10-07 21:35] LABS: Procalcitonin 0.993 ng/mL (0.0-2.0)
[2020-10-07 22:00] VITALS: BP 116/77; PULSE 88; O2SAT 96
--- NOTE | 2020-10-07 22:08 | PC.NURSE ---
spoke with dmitriy @ [facility] for vanc dosage
[2020-10-07 22:50] LABS: Erythrocyte Sedimentation Rate 47 mm/hr (0-20)
[2020-10-07 23:38] VITALS: BP 110/68; PULSE 87; RESP 18; TEMP 36.7; O2SAT 97; BMI 31.3
--- NOTE | 2020-10-07 23:38 | PC.NURSE ---
PT ARRIVED TO FLOOR VIA W/C FROM ED W/STAFF AT [id number]
[2020-10-08] VITALS (7 sets, daily range): BP systolic 110–133; BP diastolic 63–75; PULSE 86–89; RESP 18–21; TEMP 36.6–37.2; O2SAT 95–99; BMI 31.4; BMI 31.3
[2020-10-08 00:34] LABS: Troponin I 0.01 ng/ml (0.00-0.034)
[2020-10-08 02:25] LABS: Anisocytosis 1+; Lymphocytes % 5 % (10-50); Microcytosis 3+; Monocytes % 5 % (2-9); Neutrophils % 90 % (42-76); Platelet Estimate Normal; Total Cells Counted 100
[2020-10-08 02:26] LABS: Hypochromasia 2+
[2020-10-08 05:56] LABS: Chloride 101 mmol/L (98-107); Sodium 134 mmol/L (136-145)
[2020-10-08 05:58] LABS: Basophils % 0.2 % (0.1-2.0); Eosinophils % 0.3 % (0.1-12.0); Hematocrit 34.1 % (42.0-52.0); Lymphocytes # 0.6 K/mm3 (0.7-4.5); Lymphocytes % 7.1 % (10-50); Mean Corpuscular HGB Conc 32.7 g/dL (31.8-35.4); Mean Corpuscular Hemoglobin 24.3 pg (27.0-31.2); Mean Corpuscular Volume 74.1 fl (80-94); Mean Platelet Volume 7.2 fl (7.4-10.4); Monocytes # 0.5 K/mm3 (0.1-1.0); Monocytes % 5.3 % (1.7-9.3); Neutrophils # 7.7 K/mm3 (1.8-7.8); Neutrophils % 87.1 % (37.0-80.0); Platelet Count 192 K/mm3 (142-424); Red Cell Distribution Width 17.1 % (11.5-17.5); White Blood Count 8.8 K/mm3 (4.8-10.8)
[2020-10-08 05:59] LABS: Blood Urea Nitrogen 18 mg/dl (9-20); Carbon Dioxide 24 mmol/L (22.0-30.0); Creatinine Clearance Estimated 96 mL/min (50-200); Estimated Glomerular Filt Rate 74 ml/min (>60); GFR (African American) 90 ML/MIN (>60)
[2020-10-08 06:00] LABS: Calcium 8.4 mg/dl (8.4-10.2); Glucose 213 mg/dl (74-100); Magnesium 1.8 mg/dl (1.6-2.3)
[2020-10-08 06:03] LABS: MANUAL DIFFERENTIAL MANUAL DIFFERENTIAL (MANUAL DIFF)
[2020-10-08 06:04] LABS: Hemoglobin 11.2 g/dL (14.1-18.0)
[2020-10-08 06:04] LABS: POC Glucose,Bedside 239 (70-110)
--- NOTE | 2020-10-08 07:21 | P.CONPHA_ITS ---
[facility] Pharmacy VTE Monitoring - Patient Demographics Admission date: 10/07/20 Report Date: 10/08/20 Time: 07:21 Allergies/Adverse Reactions: Patient Allergies Penicillins [PENICILLINS] Allergy (Unknown, Verified 09/01/20 11:13) I-ITCHING Height: 1.75 m Weight: 96.2 kg Patient Problems: Current Active Problems Cellulitis (Acute) Acute delirium (Acute) Obesity (BMI 30-39.9) (Acute) SIRS (systemic inflammatory response syndrome) (Acute) Diabetes (Chronic) - VTE Risk Labs: VTE Related Lab Results Hgb 11.2 g/dL (14.1-18.0) L D 10/08/20 05:23 Hct 34.1 % (42.0-52.0) L 10/08/20 05:23 Plt Count 192 K/mm3 (142-424) 10/08/20 05:23 BUN 18 mg/dl (9-20) 10/08/20 05:23 Creatinine 1.00 mg/dl (0.66-1.25) 10/08/20 05:23 Estimated Creat Clear 96 mL/min (50-200) 10/08/20 05:23 VTE Score: 3 VTE Risk Level: Low Risk - Prophylaxis VTE Prophylaxis Ordered?: Yes Types of VTE Prophylaxis: TEDS Knee High Location of Applied Device: Bilateral Lower Extremeties
[2020-10-08 07:24] LABS: Anisocytosis 1+; Hypochromasia 1+; Lymphocytes % 7 % (10-50); Microcytosis 1+; Monocytes % 5 % (2-9); Neutrophils % 88 % (42-76); Platelet Estimate Normal; Total Cells Counted 100
--- NOTE | 2020-10-08 07:33 | HMH.PHAINT ---
MEDICATION RECONCILIATION COMPLETED ON PATIENT USING EXTERNAL FILL HISTORY FROM PHARMACY, PRANAV REPORT, AND LIST FROM PCP OFFICE. -ROYAL ERVIND
--- NOTE | 2020-10-08 08:00 | CA_ITS ---
APPROVED REPORT Bilateral Lower Extremity Venous Study for DVT. Trade Sales Assistant: CT Indications Lower Extremity Pain: Right Lower Extremity Edema: Right swelling/immobility, lymphedema Risk Factors red angry right leg Medications Plavix Aspirin Vein Imaging CFV (R): compressive, spontaneous, phasic, augmentation SFJ (R): compressive, spontaneous, phasic, augmentation FEM (R): compressive, spontaneous, phasic, augmentation POP (R): compressive, spontaneous, phasic, augmentation DFV (R): compressive, spontaneous, phasic, augmentation PTV (R): compressive, spontaneous, phasic, augmentation GSV (R): compressive, spontaneous, phasic, augmentation SSV (R): compressive, spontaneous, phasic, augmentation Peroneals (R):compressive, spontaneous, phasic, augmentation GAS (R): compressive, spontaneous, phasic, augmentation CFV (L): compressive, spontaneous, phasic, augmentation SFJ (L): compressive, spontaneous, phasic, augmentation FEM (L): compressive, spontaneous, phasic, augmentation POP (L): compressive, spontaneous, phasic, augmentation DFV (L): compressive, spontaneous, phasic, augmentation PTV (L): compressive, spontaneous, phasic, augmentation GSV (L): compressive, spontaneous, phasic, augmentation SSV (L): compressive, spontaneous, phasic, augmentation Peroneals (L):compressive, spontaneous, phasic, augmentation GAS (L): compressive, spontaneous, phasic, augmentation Findings Bilateral venous extremity negative for DVT/SVT. Vessels fully compressible. Conclusion Bilateral venous extremity negative for DVT/SVT. Vessels fully compressible. Electronically signed by : Ashu Ruiz MD 10/08/2020 16:42:35
--- NOTE | 2020-10-08 10:52 | HMH.HP ---
*Admission Date: 10/07/20 *Chief complaint: Generalized weakness *History of present illness: 70-year-old male patient who presented to the [facility] ED with reporting picking him up from work today and him displaying confusion and fever. She reports right lower extremity is red, edematous, and warm to touch. She also reports generalized weakness the past several days. Patient does have an extended recovery after brittney COVID-19 reports he has felt weak since recovering and not back to his normal self. He is also a patient of the lymphedema clinic with regular wrappings of right lower extremity, he also has a history of diabetes. In the emergency department he received vancomycin IV [facility] History I have reviewed the patient's past medical history: Yes Medical History: Reports:: Anxiety, Coronary Artery Disease, Depression, Diabetes Mellitus Type 2, Hiatal Hernia, Hyperlipidemia, Hypertension, Kidney Stones Denies:: Cancer, Deep Vein Thrombosis, Diabetes Mellitus Type 1, Internal Pacemaker, MRSA, Seizures, Transient Ischemic Attacks (TIA) *Have you ever received a pneumonia vaccine?: Yes *Have you received a flu vaccine this season?: Yes Other Medical History: Reports: Anemia, Arthritis, Sinus Problems, Other Laterality Cases: Right: Arthroscopy Shoulder Other Surgeries: Yes: No Previous Surgery, Cardiac Catheterization, Cholecystectomy, Colonoscopy, Coronary Stent, Hernia Repair, Other. No: Pacemaker Amputation: No Fractures: Yes - *Social History Last grade of school completed: High school graduate Smoking Status: Never smoker Alcohol Intake: never Alcohol Intake Frequency:: other Substance Use Type: denies use *Occupational Status:: retired Housing: house Household Members: spouse *Travel in the last 8 weeks: None - Psychiatric History Pschychiatric History:: Reports:: Anxiety, Depression Family Hx:: No significant family history Review of Systems - Review of Systems Review of systems:: pertinent systems reviewed and negative unless documented below - Constitutional Reports fatigue, Reports lack of energy, Reports weakness - Eyes Denies blind spots, Denies change in vision - ENT Denies dizziness, Denies difficulty swallowing - *Cardiovascular Reports leg pain with activity, Reports leg swelling, Denies chest pain, Denies shortness of breath - *Respiratory Denies chest congestion, Denies shortness of breath - *Gastrointestinal Denies abdominal pain, Denies change in bowel habits, Denies change in stools - *Musculoskeletal Reports muscle weakness, Denies abnormal walking - Integumentary/Breasts Reports redness, Denies hair loss - *Neurologic Reports confusion, Denies localized weakness - Psychiatric Reports confusion, Denies abnormal sleep pattern, Denies anxiety - Endocrine Denies cold intolerance, Denies heat intolerance - Hematologic/Lymphatic Denies easy bleeding, Denies enlarged lymph nodes - Allergic/Immunologic Denies GI upset with certain foods, Denies wheezing Meds Home Medications Medication Instructions Recorded Confirmed Type tramadol 50 mg tablet 50 mg PO BIDP PRN 08/24/17 10/08/20 History dicyclomine 10 mg capsule 10 mg PO QIDP PRN 90 Days #270 10/09/17 10/08/20 History clopidogrel 75 mg tablet 75 mg PO DAILY tab 07/06/20 10/07/20 History cyclobenzaprine 5 mg tablet 5 mg PO TIDP PRN 90 Days #90 07/06/20 10/08/20 History Albuterol Sulfate [Proventil Hfa] 2 puffs IH Q4HP PRN 10/07/20 10/08/20 History Aspirin [Low Dose Aspirin EC] 81 mg PO DAILY 10/07/20 10/07/20 History Losartan Potassium [Cozaar 50mg 50 mg PO DAILY 10/07/20 10/07/20 History Tablets] Pioglitazone HCl 30 mg PO DAILY 10/07/20 10/08/20 History Simvastatin [Zocor 20mg] 20 mg PO HS 10/08/20 10/08/20 History Allergies Allergy/AdvReac Type Severity Reaction Status Date / Time Penicillins [PENICILLINS] Allergy Unknown I-ITCHING Verified 09/01/20 11:13 Exam Vital signs and L
[2020-10-08 11:33] LABS: POC Glucose,Bedside 200 (70-110)
--- NOTE | 2020-10-08 11:56 | HMH.PHACONS ---
- Pharmacy Consult Date: 10/08/20 Time: 11:56 Referring provider: DR. MATUTE Reason for Consult:: VANCOMYCIN DOSING Allergies and ADEs:: Allergies Allergy/AdvReac Type Severity Reaction Status Date / Time Penicillins [PENICILLINS] Allergy Unknown I-ITCHING Verified 09/01/20 11:13 Home Medications:: Home Medications Medication Instructions Recorded Confirmed Type tramadol 50 mg tablet 50 mg PO BIDP PRN 08/24/17 10/08/20 History dicyclomine 10 mg capsule 10 mg PO QIDP PRN 90 Days #270 10/09/17 10/08/20 History clopidogrel 75 mg tablet 75 mg PO DAILY tab 07/06/20 10/07/20 History cyclobenzaprine 5 mg tablet 5 mg PO TIDP PRN 90 Days #90 07/06/20 10/08/20 History Albuterol Sulfate [Proventil Hfa] 2 puffs IH Q4HP PRN 10/07/20 10/08/20 History Aspirin [Low Dose Aspirin EC] 81 mg PO DAILY 10/07/20 10/07/20 History Losartan Potassium [Cozaar 50mg 50 mg PO DAILY 10/07/20 10/07/20 History Tablets] Pioglitazone HCl 30 mg PO DAILY 10/07/20 10/08/20 History Simvastatin [Zocor 20mg] 20 mg PO HS 10/08/20 10/08/20 History Height: 1.75 m Weight: 96.2 kg Laboratory Results:: Laboratory Results - last 24 hr 10/07/20 20:05: WBC 14.4 H, RBC 5.17, Hgb 12.5 L, Hct 36.9 L, MCV 71.4 L, MCH 24.1 L, MCHC 33.8, RDW 16.8, Plt Count 241, MPV 7.7, Neut % (Auto) 89.1 H, Lymph % (Auto) 6.2 L, [place] % (Auto) 4.0, Eos % (Auto) 0.1, Baso % (Auto) 0.7, Neut # (Auto) 12.8 H, Lymph # (Auto) 0.9, [place] # (Auto) 0.6, Eos # (Auto) 0.0, Baso # (Auto) 0.1, Total Counted 100, Neutrophils % (Manual) 90 H, Lymphocytes % (Manual) 5 L, Monocytes % (Manual) 5, Platelet Estimate Normal, RBC Morphology Not Reportable, Hypochromasia 2+, Anisocytosis 1+, Microcytosis 3+, ESR 47 H 10/07/20 20:05: Sodium 130 L, Potassium 4.1, Chloride 97 L, Carbon Dioxide 23, Anion Gap 14.1, BUN 16, Creatinine 1.10, Estimated Creat Clear 89, Estimated GFR 67, Est GFR ( Amer) 81, Glucose 143 H, Calcium 9.2, Total Bilirubin 1.8 H, AST 40, ALT 23, Alkaline Phosphatase 73, Troponin I < 0.01, C-Reactive Protein 121.7 H, Total Protein 7.6, Albumin 4.5, Globulin 3.1, Albumin/Globulin Ratio 1.5, Procalcitonin 0.993 10/07/20 20:05: Lactate 1.3 10/07/20 20:18: Urine Color Yellow, Urine Appearance Clear, Urine pH 6.5, Ur Specific [place] 1.025, Urine Protein 2+, Urine Glucose (UA) Negative, Urine Ketones Negative, Urine Blood Negative, Urine Nitrate Negative, Urine Bilirubin Negative, Urine Urobilinogen 0.2, Ur Leukocyte Esterase Negative, Urine RBC Occasional, Urine WBC Occasional, Ur Squamous Epith Cells None, Urine Bacteria None 10/07/20 20:38: SARS-CoV-2 (PCR) Not detected, Influenza A Untype (PCR) Not detected, Influenza Type B (PCR) Not detected 10/07/20 22:51: Troponin I 0.01 10/08/20 05:23: WBC 8.8 D, RBC 4.60, Hgb 11.2 L D, Hct 34.1 L, MCV 74.1 L, MCH 24.3 L, MCHC 32.7, RDW 17.1, Plt Count 192, MPV 7.2 L, Neut % (Auto) 87.1 H, Lymph % (Auto) 7.1 L, [place] % (Auto) 5.3, Eos % (Auto) 0.3, Baso % (Auto) 0.2, Neut # (Auto) 7.7, Lymph # (Auto) 0.6 L, [place] # (Auto) 0.5, Eos # (Auto) 0.0, Baso # (Auto) 0.0, Total Counted 100, Neutrophils % (Manual) 88 H, Lymphocytes % (Manual) 7 L, Monocytes % (Manual) 5, Platelet Estimate Normal, RBC Morphology Not Reportable, Hypochromasia 1+, Anisocytosis 1+, Microcytosis 1+ 10/08/20 05:23: Sodium 134 L, Potassium 4.0, Chloride 101, Carbon Dioxide 24, Anion Gap 13.0, BUN 18, Creatinine 1.00, Estimated Creat Clear 96, Estimated GFR 74, Est GFR ( Amer) 90, Glucose 213 H D, Calcium 8.4, Magnesium 1.8 10/08/20 05:25: POC Glucose 239 H 10/08/20 11:24: POC Glucose 200 H Medical History: Reports:: Anxiety, Coronary Artery Disease, Depression, Diabetes Mellitus Type 2, Hiatal Hernia, Hyperlipidemia, Hypertension, Kidney Stones Denies:: Cancer, Deep Vein Thrombosis, Diabetes Mellitus Type 1, Internal Pacemaker, MRSA, Seizures, Transient Ischemic Attacks (TIA) Assessment and Plan - Assessment and plan all Dx Assessment and Plan for all problems:: Objective: =======
[2020-10-08 16:08] LABS: POC Glucose,Bedside 200 (70-110)
--- NOTE | 2020-10-08 18:27 | PC.NURSE ---
Pt A&O X4. RR even and unlabored. VSS. CB in reach and at bedside. Did outline redness to RLE (upper part of leg) that did become slightly more red above the R knee. No c/o's at this time. Meds per mar. IV Vanc given per may as well. Have educated on diabetic diet and encouraged elevation of BLE to aid with edema.
--- NOTE | 2020-10-08 20:28 | PC.NURSE ---
trash pulled, ice water passed, and snack passed
[2020-10-08 21:18] LABS: POC Glucose,Bedside 219 (70-110)
[2020-10-09 04:00] VITALS: BP 136/74; PULSE 89; RESP 18; TEMP 36.9; O2SAT 97
[2020-10-09 05:25] LABS: POC Glucose,Bedside 225 (70-110)
--- NOTE | 2020-10-09 05:39 | PC.NURSE ---
patient had uneventful night. Leg elevated most of shift. Showered this AM. Has shown no s/s of acute distress, call light within reach, bed at lowest level for safety; will continue to monitor.
[2020-10-09 06:01] LABS: Basophils % 0.3 % (0.1-2.0); Eosinophils # 0.1 K/mm3 (0.0-0.4); Hematocrit 34.1 % (42.0-52.0); Hemoglobin 11.4 g/dL (14.1-18.0); Lymphocytes # 0.9 K/mm3 (0.7-4.5); Lymphocytes % 16.3 % (10-50); Mean Corpuscular HGB Conc 33.4 g/dL (31.8-35.4); Mean Corpuscular Hemoglobin 24.4 pg (27.0-31.2); Mean Corpuscular Volume 73.2 fl (80-94); Mean Platelet Volume 7.8 fl (7.4-10.4); Monocytes # 0.4 K/mm3 (0.1-1.0); Monocytes % 7.5 % (1.7-9.3); Neutrophils # 4.3 K/mm3 (1.8-7.8); Neutrophils % 74.9 % (37.0-80.0); Platelet Count 200 K/mm3 (142-424); Red Blood Count 4.66 M/mm3 (4.60-6.20); Red Cell Distribution Width 16.9 % (11.5-17.5); White Blood Count 5.8 K/mm3 (4.8-10.8)
[2020-10-09 06:18] LABS: Chloride 103 mmol/L (98-107)
[2020-10-09 06:19] LABS: Potassium 3.7 mmoL/L (3.5-5.1); Sodium 135 mmol/L (136-145)
[2020-10-09 06:22] LABS: Anion Gap 12.7 mEq/L (5-15); Blood Urea Nitrogen 17 mg/dl (9-20); Calcium 8.6 mg/dl (8.4-10.2); Carbon Dioxide 23 mmol/L (22.0-30.0); Creatinine Clearance Estimated 92 mL/min (50-200); Estimated Glomerular Filt Rate 84 ml/min (>60); GFR (African American) 102 ML/MIN (>60); Glucose 178 mg/dl (74-100)
[2020-10-09 07:23] VITALS: BP 136/78; PULSE 87; RESP 18; TEMP 36.6; O2SAT 97
--- NOTE | 2020-10-09 12:19 | HMH.DCSUM ---
General - General Admission date:: 10/07/20 Discharge date: 10/09/20 HPI HPI: 70-year-old male patient who presented to the [facility] ED with reporting picking him up from work today and him displaying confusion and fever. She reports right lower extremity is red, edematous, and warm to touch. She also reports generalized weakness the past several days. Patient does have an extended recovery after brittney COVID-19 reports he has felt weak since recovering and not back to his normal self. He is also a patient of the lymphedema clinic with regular wrappings of right lower extremity, he also has a history of diabetes. In the emergency department he received vancomycin IV Hospital Course Hospital Course: Laboratory Tests 10/07/20 10/07/20 10/07/20 20:05 20:05 20:05 WBC 14.4 H RBC 5.17 Hgb 12.5 L Hct 36.9 L MCV 71.4 L MCH 24.1 L MCHC 33.8 RDW 16.8 Plt Count 241 MPV 7.7 Neut % (Auto) 89.1 H Lymph % (Auto) 6.2 L [place] % (Auto) 4.0 Eos % (Auto) 0.1 Baso % (Auto) 0.7 Neut # (Auto) 12.8 H Lymph # (Auto) 0.9 [place] # (Auto) 0.6 Eos # (Auto) 0.0 Baso # (Auto) 0.1 Total Counted 100 Neutrophils % (Manual) 90 H Lymphocytes % (Manual) 5 L Monocytes % (Manual) 5 Platelet Estimate Normal RBC Morphology Not Reportable Hypochromasia 2+ Anisocytosis 1+ Microcytosis 3+ ESR 47 H Sodium 130 L Potassium 4.1 Chloride 97 L Carbon Dioxide 23 Anion Gap 14.1 BUN 16 Creatinine 1.10 Estimated Creat Clear 89 Estimated GFR 67 Est GFR ( Amer) 81 Glucose 143 H POC Glucose Lactate 1.3 Calcium 9.2 Magnesium Total Bilirubin 1.8 H AST 40 ALT 23 Alkaline Phosphatase 73 Troponin I < 0.01 C-Reactive Protein 121.7 H Total Protein 7.6 Albumin 4.5 Globulin 3.1 Albumin/Globulin Ratio 1.5 Procalcitonin 0.993 Urine Color Urine Appearance Urine pH Ur Specific [place] Urine Protein Urine Glucose (UA) Urine Ketones Urine Blood Urine Nitrate Urine Bilirubin Urine Urobilinogen Ur Leukocyte Esterase Urine RBC Urine WBC Ur Squamous Epith Cells Urine Bacteria Vancomycin Trough SARS-CoV-2 (PCR) Influenza A Untype (PCR) Influenza Type B (PCR) 10/07/20 10/07/20 10/07/20 20:18 20:38 22:51 WBC RBC Hgb Hct MCV MCH MCHC RDW Plt Count MPV Neut % (Auto) Lymph % (Auto) [place] % (Auto) Eos % (Auto) Baso % (Auto) Neut # (Auto) Lymph # (Auto) [place] # (Auto) Eos # (Auto) Baso # (Auto) Total Counted Neutrophils % (Manual) Lymphocytes % (Manual) Monocytes % (Manual) Platelet Estimate RBC Morphology Hypochromasia Anisocytosis Microcytosis ESR Sodium Potassium Chloride Carbon Dioxide Anion Gap BUN Creatinine Estimated Creat Clear Estimated GFR Est GFR ( Amer) Glucose POC Glucose Lactate Calcium Magnesium Total Bilirubin AST ALT Alkaline Phosphatase Troponin I 0.01 C-Reactive Protein Total Protein Albumin Globulin Albumin/Globulin Ratio Procalcitonin Urine Color Yellow Urine Appearance Clear Urine pH 6.5 Ur Specific [place] 1.025 Urine Protein 2+ Urine Glucose (UA) Negative Urine Ketones Negative Urine Blood Negative Urine Nitrate Negative Urine Bilirubin Negative Urine Urobilinogen 0.2 Ur Leukocyte Esterase Negative Urine RBC Occasional Urine WBC Occasional Ur Squamous Epith Cells None Urine Bacteria None Vancomycin Trough SARS-CoV-2 (PCR) Not detected Influenza A Untype (PCR) Not detected Influenza Type B (PCR) Not detected 10/08/20 10/08/20 10/08/20 05:23 05:23 05:25 WBC 8.8 D RBC 4.60 Hgb 11
[2020-10-09 12:29] LABS: POC Glucose,Bedside 259 (70-110)
[2020-10-09 14:13] LABS: Vancomycin,Peak 8.3 ug/ml (11-39)
== END 2020-10-09 14:57 | disposition home or self-care (01) ==
LOC: ER 20:16 → 2ND 22:36
PROVIDERS: Nurse Practitioner Family; Admitting Provider Emergency Medicine; Emergency Provider Emergency Medicine; PCP Nurse Practitioner Family; Visit Provider Emergency Medicine
DX: L03.115 Cellulitis of right lower limb (principal); I25.10 Atherosclerotic heart disease of native coronary artery without angina pectoris; E11.9 Type 2 diabetes mellitus without complications; E78.5 Hyperlipidemia, unspecified; Z95.5 Presence of coronary angioplasty implant and graft; Z86.16 Personal history of COVID-19; I89.0 Lymphedema, not elsewhere classified; Z20.822 Contact with and (suspected) exposure to COVID-19; Z79.899 Other long term (current) drug therapy; Z79.02 Long term (current) use of antithrombotics/antiplatelets; Z79.84 Long term (current) use of oral hypoglycemic drugs; Z88.0 Allergy status to penicillin
CPT/HCPCS: 36415; 70450; 71046; 80048; 80053; 80202; 81001; 82962; 83605; 83735; 84145; 84484; 85007; 85025; 85651; 86140; 87040; 93005; 93970; 96365; 96366; 99284; G0378; J3370; U0003

== ENCOUNTER 2020-10-11 11:09 | Observation (INO) | payer MEDICARE, SELFPAY ==
[2020-10-11] VITALS (11 sets, daily range): BP systolic 105–138; BP diastolic 56–81; PULSE 72–122; RESP 16–20; TEMP 37–38.7; O2SAT 95–98; BMI 30.8; BMI 31.0
--- NOTE | 2020-10-11 11:25 | XR_ITS ---
PROCEDURE INFORMATION: Exam: XR Chest Exam date and time: 10/11/2020 11:25 AM Age: 70 years old Clinical indication: Cough and shortness of breath; Additional info: SOB TECHNIQUE: Imaging protocol: XR of the chest. Views: 1 view. COMPARISON: CR XR CHEST 2V 10/07/2020 8:13 PM FINDINGS: Lungs: The rule unstable diffuse bilateral infiltrates are demonstrated. Pleural spaces: Unremarkable. No pleural effusion. No pneumothorax. Heart/Mediastinum: Stable aortic calcification and mild tortuosity. No cardiomegaly. Bones/joints: Stable degenerative changes. IMPRESSION: Stable appearance of the chest
--- NOTE | 2020-10-11 11:34 | HMH.EDGENADL ---
ED Disposition Clinical Impression: Weakness Cellulitis, leg Qualifiers: Laterality: right Qualified Code(s): L03.115 - Cellulitis of right lower limb Urinary incontinence Qualifiers: Urinary Incontinence type: unspecified incontinence Qualified Code(s): R32 - Unspecified urinary incontinence Sepsis Qualifiers: Sepsis type: sepsis due to unspecified organism Sepsis acute organ dysfunction status: without acute organ dysfunction Qualified Code(s): A41.9 - Sepsis, unspecified organism Disposition: Admitted as Observation Condition on Discharge: [facility] - Critical Care Critical Care Time: No Attestation: On 10/11/20, the high probability of a clinically significant, sudden or life threatening deterioration of the following system(s) required my full and direct attention, intervention and personal management. The time I documented below is in addition to time spent performing reported procedures but includes the following listed in this critical care notation. Medical Decision Making - Medical Records Medical records reviewed: Yes: I reviewed the patient's medical records. MR Comment: Reviewed discharge summary from recent admission 10/07/2020 through 10/09/2020. - Jevon Inquiry Pt receiving controlled substance: No Vital Signs: 10/11/20 11:10 10/11/20 11:15 10/11/20 12:19 Temperature 98.7 F 101 F H Temperature Source Oral Oral Pulse Rate 110 H Pulse Rate [Radial] 102 H Respiratory Rate 20 20 Blood Pressure 121/76 Blood Pressure [Right Arm] 121/76 Blood Pressure Mean 89 Blood Pressure Mean [Right Arm] 91 Blood Pressure Position Blood Pressure Position [Right Arm] Sitting 02 Sat by Pulse Oximetry 98 95 Oxygen Delivery Method Room Air 10/11/20 12:24 10/11/20 12:30 10/11/20 13:00 Temperature Temperature Source Pulse Rate 106 H 102 H 102 H Pulse Rate [Radial] Respiratory Rate 20 16 18 Blood Pressure 134/81 132/79 114/76 Blood Pressure [Right Arm] Blood Pressure Mean 93 Blood Pressure Mean [Right Arm] Blood Pressure Position Sitting Sitting Blood Pressure Position [Right Arm] 02 Sat by Pulse Oximetry 96 95 95 Oxygen Delivery Method Room Air Room Air 10/11/20 13:30 Temperature Temperature Source Pulse Rate 101 H Pulse Rate [Radial] Respiratory Rate 20 Blood Pressure 112/70 Blood Pressure [Right Arm] Blood Pressure Mean 79 Blood Pressure Mean [Right Arm] Blood Pressure Position Blood Pressure Position [Right Arm] 02 Sat by Pulse Oximetry 97 Oxygen Delivery Method - Lab Data Lab Results 10/11/20 11:30: WBC 6.3, RBC 4.86, Hgb 11.8 L, Hct 35.3 L, MCV 72.6 L, MCH 24.3 L, MCHC 33.4, RDW 16.6, Plt Count 248, MPV 8.2, Neut % (Auto) 82.4 H, Lymph % (Auto) 10.2, [place] % (Auto) 6.6, Eos % (Auto) 0.6, Baso % (Auto) 0.3, Neut # (Auto) 5.2, Lymph # (Auto) 0.6 L, [place] # (Auto) 0.4, Eos # (Auto) 0.0, Baso # (Auto) 0.0 10/11/20 11:30: Sodium 134 L, Potassium 4.3, Chloride 98, Carbon Dioxide 26, Anion Gap 14.3, BUN 21 H, Creatinine 1.50 H D, Estimated Creat Clear 63, Estimated GFR 47 L, Est GFR ( Amer) 56 L D, Glucose 183 H, Calcium 8.8, Total Bilirubin 1.4 H, AST 54, ALT 35, Alkaline Phosphatase 71, C-Reactive Protein 154.0 H, Total Protein 7.7, Albumin 4.3, Globulin 3.4 H, Albumin/Globulin Ratio 1.3 10/11/20 11:30: Lactate 1.2 10/11/20 11:30: ESR 40 H 10/11/20 12:00: Urine Color Dk yellow, Urine Appearance Clear, Urine pH 5.5, Ur Specific [place] >= 1.030, Urine Protein 2+, Urine Glucose (UA) Negative, Urine Ketones 1+, Urine Blood Negative, Urine Nitrate Positive, Urine Bilirubin 2+ A, Urine Urobilinogen 1.0, Ur Leukocyte Esterase Negative, Urine RBC 3-5, Ur Squamous Epith Cells 3-5, Amorphous Sediment 2+, Urine Bacteria 1+ 10/11/20 13:32: SARS-CoV-2 (PCR) Not detected, Influenza A Untype (PCR) Not detected, Influenza Type B (PCR) Not detected Result diagrams: 10/11/20 11:30 10/11/20 11:30 Orders (Tests/Meds): ED MEDICATIONS Generic Name Dose
[2020-10-11 11:58] LABS: Basophils % 0.3 % (0.1-2.0); Eosinophils % 0.6 % (0.1-12.0); Hematocrit 35.3 % (42.0-52.0); Hemoglobin 11.8 g/dL (14.1-18.0); Lymphocytes # 0.6 K/mm3 (0.7-4.5); Lymphocytes % 10.2 % (10-50); Mean Corpuscular HGB Conc 33.4 g/dL (31.8-35.4); Mean Corpuscular Hemoglobin 24.3 pg (27.0-31.2); Mean Corpuscular Volume 72.6 fl (80-94); Mean Platelet Volume 8.2 fl (7.4-10.4); Monocytes # 0.4 K/mm3 (0.1-1.0); Monocytes % 6.6 % (1.7-9.3); Neutrophils # 5.2 K/mm3 (1.8-7.8); Neutrophils % 82.4 % (37.0-80.0); Platelet Count 248 K/mm3 (142-424); Red Blood Count 4.86 M/mm3 (4.60-6.20); Red Cell Distribution Width 16.6 % (11.5-17.5); White Blood Count 6.3 K/mm3 (4.8-10.8)
[2020-10-11 12:10] LABS: Alanine Aminotransferase 35 U/L (12-78); Albumin Level 4.3 g/dl (3.5-5.0); Albumin/Globulin Ratio 1.3 (1.1-1.8); Alkaline Phosphatase 71 U/L (38-126); Anion Gap 14.3 mEq/L (5-15); Aspartate Amino Transferase 54 U/L (17-59); Bilirubin,Total 1.4 mg/dl (0.2-1.3); Blood Urea Nitrogen 21 mg/dl (9-20); Calcium 8.8 mg/dl (8.4-10.2); Carbon Dioxide 26 mmol/L (22.0-30.0); Chloride 98 mmol/L (98-107); Creatinine Clearance Estimated 63 mL/min (50-200); Estimated Glomerular Filt Rate 47 ml/min (>60); GFR (African American) 56 ML/MIN (>60); Globulin 3.4 g/dL (1.3-3.2); Glucose 183 mg/dl (74-100); Lactic Acid 1.2 mmol/L (0.7-2.1); Potassium 4.3 mmoL/L (3.5-5.1); Sodium 134 mmol/L (136-145); Total Protein,Serum 7.7 g/dl (6.3-8.2)
[2020-10-11 12:11] LABS: Microscopic, Urine URINE MICROSCOPIC (MICROSCOPIC)
[2020-10-11 12:15] LABS: Appearance,Urine CLEAR (Clear); Blood, Urine Negative (Negative); Color,Urine DK YELLOW (Yellow); Glucose,Urine (UA) Negative (Negative); Ketones,Urine 1+ (Negative); Leukocyte Esterase,Urine Negative (Negative); Nitrate,Urine POSITIVE (Negative); PH,Urine 5.5 (5.0-8.5); Protein,Urine 2+ (Negative); Specific Gravity, Urine >= 1.030 (1.005-1.030)
--- NOTE | 2020-10-11 12:15 | ECG_ITS ---
APPROVED REPORT Exam: Resting ECG HR:104 bpm ECG Measurements Heart Rate 104 AXES CA 126 P 50 QRSd 86 QRS 51 QT 330 T 63 QTc 433 Conclusion Sinus tachycardia with occasional premature ventricular complexes Otherwise normal ECG Electronically signed by : Walker Hill, 10/12/2020 22:13:43
[2020-10-11 12:17] LABS: Bilirubin,Urine 2+ (Negative)
[2020-10-11 12:33] LABS: Amorphous Sediment,Urine 2+ /lpf; Bacteria,Urine 1+ /lpf
[2020-10-11 12:39] LABS: Erythrocyte Sedimentation Rate 40 mm/hr (0-20)
--- NOTE | 2020-10-11 13:01 | PC.NURSE ---
Dr Sushil sawant
[2020-10-11 13:42] LABS: Coronavirus 19, PCR Not Detected (NotDetected); Influenza A, PCR Not Detected (NotDetected); Influenza B, PCR Not Detected (NotDetected)
--- NOTE | 2020-10-11 13:54 | HMH.PHACONS ---
- Pharmacy Consult Date: 10/11/20 Time: 13:54 Referring provider: DR. MATUTE Reason for Consult:: VANCOMYCIN DOSING Allergies and ADEs:: Allergies Allergy/AdvReac Type Severity Reaction Status Date / Time Penicillins [PENICILLINS] Allergy Unknown I-ITCHING Verified 09/01/20 11:13 Home Medications:: Home Medications Medication Instructions Recorded Confirmed Type tramadol 50 mg tablet 50 mg PO BIDP PRN 08/24/17 10/11/20 History dicyclomine 10 mg capsule 10 mg PO QIDP PRN 90 Days #270 10/09/17 10/11/20 History clopidogrel 75 mg tablet 75 mg PO DAILY tab 07/06/20 10/11/20 History cyclobenzaprine 5 mg tablet 5 mg PO TIDP PRN 90 Days #90 07/06/20 10/11/20 History Aspirin [Low Dose Aspirin EC] 81 mg PO DAILY 10/07/20 10/11/20 History Losartan Potassium [Cozaar 50mg 50 mg PO DAILY 10/07/20 10/11/20 History Tablets] Pioglitazone HCl 30 mg PO DAILY 10/07/20 10/11/20 History Simvastatin [Zocor 20mg] 20 mg PO HS 10/08/20 10/11/20 History Sulfamethoxazole/Trimethoprim 1 each PO BID 10/11/20 10/11/20 History [Bactrim DS tablet] Height: 1.75 m Weight: 94.801 kg Laboratory Results:: Laboratory Results - last 24 hr 10/11/20 11:30: WBC 6.3, RBC 4.86, Hgb 11.8 L, Hct 35.3 L, MCV 72.6 L, MCH 24.3 L, MCHC 33.4, RDW 16.6, Plt Count 248, MPV 8.2, Neut % (Auto) 82.4 H, Lymph % (Auto) 10.2, [place] % (Auto) 6.6, Eos % (Auto) 0.6, Baso % (Auto) 0.3, Neut # (Auto) 5.2, Lymph # (Auto) 0.6 L, [place] # (Auto) 0.4, Eos # (Auto) 0.0, Baso # (Auto) 0.0 10/11/20 11:30: Sodium 134 L, Potassium 4.3, Chloride 98, Carbon Dioxide 26, Anion Gap 14.3, BUN 21 H, Creatinine 1.50 H D, Estimated Creat Clear 63, Estimated GFR 47 L, Est GFR ( Amer) 56 L D, Glucose 183 H, Calcium 8.8, Total Bilirubin 1.4 H, AST 54, ALT 35, Alkaline Phosphatase 71, C-Reactive Protein 154.0 H, Total Protein 7.7, Albumin 4.3, Globulin 3.4 H, Albumin/Globulin Ratio 1.3 10/11/20 11:30: Lactate 1.2 10/11/20 11:30: ESR 40 H 10/11/20 12:00: Urine Color Dk yellow, Urine Appearance Clear, Urine pH 5.5, Ur Specific [place] >= 1.030, Urine Protein 2+, Urine Glucose (UA) Negative, Urine Ketones 1+, Urine Blood Negative, Urine Nitrate Positive, Urine Bilirubin 2+ A, Urine Urobilinogen 1.0, Ur Leukocyte Esterase Negative, Urine RBC 3-5, Ur Squamous Epith Cells 3-5, Amorphous Sediment 2+, Urine Bacteria 1+ Medical History: Reports:: Anxiety, Coronary Artery Disease, Depression, Diabetes Mellitus Type 2, Hiatal Hernia, Hyperlipidemia, Hypertension, Kidney Stones Denies:: Cancer, Deep Vein Thrombosis, Diabetes Mellitus Type 1, Internal Pacemaker, MRSA, Seizures, Transient Ischemic Attacks (TIA) Assessment and Plan - Assessment and plan all Dx Assessment and Plan for all problems:: Pharmacokinetic dosing service Objective: Patient: Floor: Age: 70 yo Serum creatinine: 1.50 mg/dL Height: 68.9 Inches Weight (kg): 94.8 Assessment: IBW (kg): 70.47 Dosing wt(kg): 94.8 Estimated Creatinine clearance (ml/min): 47.0 CRCL method: Cockcroft and Gault using ibw(default). Drug selected: Vancomycin Loading dose (mg): Vd (liters): 75.8 (factor used: 0.8 L/kg) Carlos (hr-1): 0.043 Half life (hrs): 16.12 CLvanco=?? 3.259 L/hr Recommended dose: 1750 mg Interval: 24 hrs Infusion time (hrs): 2.0 Predicted peak (mcg/mL): 34.4 Predicted trough (mcg/mL): 13.36 Total body weight is being used for vancomycin dosing. Recommendations: Give Vancomycin 1750 mg q 24 hrs with an expected Cpeak of 34.4 mcg/ml and an expected Ctrough of 13.36 mcg/ml AUC 0-24 /REYMUNDO Data: REYMUNDO 0.5 mcg/mL:?? AUC/REYMUNDO:? 1073.9 REYMUNDO 1.0 mcg/mL:?? AUC/REYMUNDO:? 537.0 --------- REYMUNDO 1.5 mcg/mL:?? AUC/REYMUNDO:? 358.0 REYMUNDO 2.0 mcg/mL:?? AUC/REYMUNDO:? 268.5 Thank you for the consult, will continue to foll
--- NOTE | 2020-10-11 13:56 | P.CONPHA_ITS ---
[facility] Pharmacy VTE Monitoring - Patient Demographics Admission date: 10/11/20 Report Date: 10/11/20 Time: 13:56 Allergies/Adverse Reactions: Patient Allergies Penicillins [PENICILLINS] Allergy (Unknown, Verified 09/01/20 11:13) I-ITCHING Height: 1.75 m Weight: 94.801 kg Patient Problems: Current Active Problems Cellulitis, leg (Acute) Weakness (Acute) Urinary incontinence (Acute) Sepsis (Acute) - VTE Risk Labs: VTE Related Lab Results Hgb 11.8 g/dL (14.1-18.0) L 10/11/20 11:30 Hct 35.3 % (42.0-52.0) L 10/11/20 11:30 Plt Count 248 K/mm3 (142-424) 10/11/20 11:30 BUN 21 mg/dl (9-20) H 10/11/20 11:30 Creatinine 1.50 mg/dl (0.66-1.25) H D 10/11/20 11:30 Estimated Creat Clear 63 mL/min (50-200) 10/11/20 11:30 - Prophylaxis VTE Prophylaxis Ordered?: Yes Types of VTE Prophylaxis: TEDS Knee High Location of Applied Device: Bilateral Lower Extremeties
--- NOTE | 2020-10-11 13:58 | HMH.PHAINT ---
MEDICATION RECONCILIATION COMPLETED ON PATIENT USING DISCHARGE SUMMARY FROM PREVIOUS ADMISSION. -MASSIEL FRANKEL, ROYALD
--- NOTE | 2020-10-11 14:25 | PC.NURSE ---
REPORT CALLED TO FLOOR
--- NOTE | 2020-10-11 15:15 | PC.NURSE ---
pt arrived to the floor. Room 207
[2020-10-11 15:49] LABS: POC Glucose,Bedside 271 (70-110)
--- NOTE | 2020-10-11 19:40 | PC.NURSE ---
Pt new admission. CB in reach and no c/o currently. VSS. Report given.
[2020-10-11 20:06] LABS: POC Glucose,Bedside 118 (70-110)
[2020-10-12] VITALS: BP 111/63; PULSE 89; RESP 18; TEMP 36.7; O2SAT 97
--- NOTE | 2020-10-12 03:31 | PC.NURSE ---
Pt is A/O x4. Pt was running a fever at beginning of shift and admin meds per MAR with relief. Pt slept well all shift. No acute changes. Pt denies pain. Pt is able to make needs known to staff, no concerns at this time.
[2020-10-12 03:37] VITALS: BP 129/70; PULSE 80; RESP 20; TEMP 36.6; O2SAT 98
[2020-10-12 05:00] VITALS: BMI 30.8
[2020-10-12 05:46] LABS: POC Glucose,Bedside 128 (70-110)
[2020-10-12 08:50] VITALS: BP 126/64; PULSE 75; RESP 18; TEMP 37.2; O2SAT 99
[2020-10-12 11:39] LABS: POC Glucose,Bedside 193 (70-110)
[2020-10-12 16:00] VITALS: BP 124/65; PULSE 76; RESP 20; TEMP 37.1; O2SAT 99
[2020-10-12 16:14] LABS: POC Glucose,Bedside 203 (70-110)
--- NOTE | 2020-10-12 17:38 | HMH.HPDC ---
General - General Admission date:: 10/11/20 Discharge date: 10/12/20 *Admission Date: 10/11/20 *Chief complaint: fever *History of present illness: 70 yr old male presented to ed with c/o of fever r/t redness in rt lower leg. Pt was discharged from this hospital 2 days ago for cellulitis. Discharged on Bactrim. He was afebrile at the time of discharge. Started running a fever again yesterday, initially low-grade, then up to 102.2 this morning. Pt states the redness of his right leg has improved markedly since he was admitted. He has chronic lymphedema of his right leg and wraps his leg daily.Pt states No pain. No new numbness or weakness. Pt admitted r/t fever while on antibiotics. [facility] History I have reviewed the patient's past medical history: Yes Medical History: Reports:: Anxiety, Coronary Artery Disease, Depression, Diabetes Mellitus Type 2, Hiatal Hernia, Hyperlipidemia, Hypertension, Kidney Stones Denies:: Cancer, Deep Vein Thrombosis, Diabetes Mellitus Type 1, Internal Pacemaker, MRSA, Seizures, Transient Ischemic Attacks (TIA) *Have you ever received a pneumonia vaccine?: No *Have you received a flu vaccine this season?: No Other Medical History: Reports: Anemia, Arthritis (RA), Sinus Problems, Other Laterality Cases: Right: Arthroscopy Shoulder Other Surgeries: Yes: No Previous Surgery, Cardiac Catheterization, Cholecystectomy, Colonoscopy, Coronary Stent, Hernia Repair, Other. No: Pacemaker Amputation: No Fractures: Yes - *Social History Smoking Status: Never smoker Alcohol Intake: never Alcohol Intake Frequency:: other Substance Use Type: denies use *Occupational Status:: retired Housing: house Household Members: spouse *Travel in the last 8 weeks: None - Psychiatric History Pschychiatric History:: Reports:: Anxiety, Depression Family Hx:: No significant family history Review of Systems - Review of Systems Review of systems:: pertinent systems reviewed and negative unless documented below - Constitutional Reports fever(s), Denies body ache(s), Denies fatigue - Eyes Denies blurry vision - ENT Denies sore throat - *Cardiovascular Denies chest pain with activity - *Respiratory Reports cough, Denies pain with cough - *Gastrointestinal Denies abdominal pain, Denies bloating - *Genitourinary Denies difficulty urinating, Denies urinary frequency - *Musculoskeletal Reports muscle weakness, Denies joint pain - Integumentary/Breasts Reports wounds - *Neurologic Reports weakness, Denies headache(s) - Psychiatric Denies difficulty concentrating - Endocrine Denies rapid, pounding, or irregular heartbeat - Hematologic/Lymphatic Denies easy bruising - Allergic/Immunologic Denies GI upset with certain foods Exam Vital signs and Labs for Last 24 Hours: Temp Pulse Resp BP Pulse Ox 98.7 F 76 20 124/65 99 10/12/20 16:00 10/12/20 16:00 10/12/20 16:00 10/12/20 16:00 10/12/20 16:00 Laboratory Results - last 24 hr 10/11/20 19:56: POC Glucose 118 H 10/12/20 05:40: POC Glucose 128 H 10/12/20 11:13: POC Glucose 193 H 10/12/20 16:06: POC Glucose 203 H I & O for Last 24 hours: Intake & Output 10/10/20 10/11/20 10/12/20 10/13/20 11:59 11:59 11:59 11:59 Intake Total 1987 480 / 480 Balance 1987 480 / 480 Weight 209 lb 208 lb 2 oz Microbiology Reports for the Last 24 Hours: Microbiology 10/11/20 13:00 Urine,Clean Catch Urine Culture - Preliminary NO GROWTH AFTER 24 HOURS - Constitutional no acute distress - *Routine HEENT Exam Head: Present: normocephalic Eye: Present: PERRL ENT: Present: mucous membranes moist - *Routine Neck Exam Present: supple. Absent: lymphadenopathy - *Routine Respiratory Exam Present: CTA bilaterally - *Routine Cardiovascular Exam Present: RRR - *Routine Abdominal Exam Present: soft, normoactive bowel sounds. Absent: tenderness - *Routine Rectal Exam
--- NOTE | 2020-10-12 18:14 | PC.NURSE ---
1810 Discharge education provided to pt, given opportunity to ask questions. Pt denies any questions/concerns.
== END 2020-10-12 18:45 | disposition home or self-care (01) ==
LOC: ER 13:29 → 2ND 13:38
PROVIDERS: Admitting Provider Family Medicine; Emergency Provider Emergency Medicine; PCP Nurse Practitioner Family; Visit Provider Emergency Medicine
DX: L03.115 Cellulitis of right lower limb (principal); I25.10 Atherosclerotic heart disease of native coronary artery without angina pectoris; E11.9 Type 2 diabetes mellitus without complications; E78.5 Hyperlipidemia, unspecified; Z20.822 Contact with and (suspected) exposure to COVID-19; Z79.899 Other long term (current) drug therapy; Z79.02 Long term (current) use of antithrombotics/antiplatelets; Z79.84 Long term (current) use of oral hypoglycemic drugs; Z88.8 Allergy status to other drugs, medicaments and biological substances
CPT/HCPCS: 71045; 80053; 81001; 82962; 83605; 85025; 85651; 86140; 87040; 87086; 93005; 96365; 96367; 99285; G0378; J3370; U0003

== ENCOUNTER → 2020-10-16 17:39 | Outpatient (CLI) | payer MEDICARE, SELFPAY ==
[2020-10-16 18:29] LABS: Basophils # 0.1 K/mm3 (0-0.2); Basophils % 0.8 % (0.1-2.0); Eosinophils # 0.1 K/mm3 (0.0-0.4); Eosinophils % 1.8 % (0.1-12.0); Hematocrit 34.3 % (42.0-52.0); Hemoglobin 11.3 g/dL (14.1-18.0); Lymphocytes # 0.6 K/mm3 (0.7-4.5); Mean Corpuscular Volume 72.7 fl (80-94); Mean Platelet Volume 8.2 fl (7.4-10.4); Monocytes # 0.4 K/mm3 (0.1-1.0); Neutrophils # 5.8 K/mm3 (1.8-7.8); Neutrophils % 83.3 % (37.0-80.0); Platelet Count 434 K/mm3 (142-424); Red Blood Count 4.71 M/mm3 (4.60-6.20); Red Cell Distribution Width 16.3 % (11.5-17.5); White Blood Count 6.9 K/mm3 (4.8-10.8)
== END ==
PROVIDERS: Visit Provider Family Medicine
DX: L03.90 Cellulitis, unspecified (principal)
CPT/HCPCS: 85025

== ENCOUNTER → 2020-11-06 08:00 | Outpatient (CLI) | payer MEDICARE, SELFPAY ==
[2020-11-06 12:23] LABS: Hemoglobin A1C 7.8 % (4.0-6.0)
== END ==
PROVIDERS: Visit Provider Family Medicine
DX: E11.9 Type 2 diabetes mellitus without complications (principal)
CPT/HCPCS: 36415; 83036

== ENCOUNTER → 2020-11-30 08:13 | Outpatient (CLI) | payer MEDICARE, SELFPAY ==
[2020-11-30 08:35] LABS: Basophils % 0.7 % (0.1-2.0); Eosinophils # 0.2 K/mm3 (0.0-0.4); Eosinophils % 3.9 % (0.1-12.0); Hematocrit 41.6 % (42.0-52.0); Hemoglobin 13.2 g/dL (14.1-18.0); Lymphocytes # 1.5 K/mm3 (0.7-4.5); Lymphocytes % 27.8 % (10-50); Mean Corpuscular HGB Conc 31.7 g/dL (31.8-35.4); Mean Corpuscular Hemoglobin 24.9 pg (27.0-31.2); Mean Corpuscular Volume 78.6 fl (80-94); Mean Platelet Volume 8.2 fl (7.4-10.4); Monocytes # 0.3 K/mm3 (0.1-1.0); Monocytes % 6.2 % (1.7-9.3); Neutrophils # 3.2 K/mm3 (1.8-7.8); Neutrophils % 61.4 % (37.0-80.0); Platelet Count 298 K/mm3 (142-424); Red Cell Distribution Width 17.1 % (11.5-17.5); White Blood Count 5.2 K/mm3 (4.8-10.8)
--- NOTE | 2020-11-30 08:42 | XR_ITS ---
PROCEDURE INFORMATION: Exam: XR Chest Exam date and time: 11/30/2020 8:42 AM Age: 70 years old Clinical indication: Screening exam; Pre-operative exam; Cardiovascular screening; Patient HX: Pre op, HX of high blood pressure TECHNIQUE: Imaging protocol: XR of the chest. Views: 2 views. COMPARISON: CR XR CHEST PORTABLE 10/11/2020 11:42 AM FINDINGS: Lungs: Pulmonary hyperinflation. Chronic interstitial prominence in the lower lungs, and emphysematous changes in the upper lungs. Worsened subsegmental atelectasis at the left lung base. No focal consolidation. Likely calcified right lower pulmonary granuloma versus overlying costal cartilage calcification. Pleural spaces: Unremarkable. No significant pleural effusion. No pneumothorax. Heart/Mediastinum: The cardiac silhouette is normal. Bones/joints: There are prominent spinal degenerative changes, with multilevel disc narrrowing and spondylosis. Soft tissues: Upper abdominal surgical clips. IMPRESSION: 1. Findings suggest COPD, with worsened subsegmental atelectasis at the left lung base compared with 10/11/2020. 2. No focal consolidation.
[2020-11-30 09:03] LABS: Alanine Aminotransferase 24 U/L (12-78); Albumin Level 4.1 g/dl (3.5-5.0); Albumin/Globulin Ratio 1.5 (1.1-1.8); Alkaline Phosphatase 66 U/L (38-126); Anion Gap 14.4 mEq/L (5-15); Aspartate Amino Transferase 30 U/L (17-59); Bilirubin,Total 0.5 mg/dl (0.2-1.3); Blood Urea Nitrogen 12 mg/dl (9-20); Carbon Dioxide 25 mmol/L (22.0-30.0); Chloride 104 mmol/L (98-107); Chol/HDL Ratio 2.2 (1-3.5); Cholesterol 137 mg/dl (140-200); Estimated Glomerular Filt Rate 96 ml/min (>60); GFR (African American) 116 ML/MIN (>60); Globulin 2.8 g/dL (1.3-3.2); Glucose 150 mg/dl (74-100); HDL Cholesterol 62 mg/dl (40-60); Potassium 4.4 mmoL/L (3.5-5.1); Sodium 139 mmol/L (136-145); Total Protein,Serum 6.9 g/dl (6.3-8.2); Triglycerides 149 mg/dl (30-150); VLDL Cholesterol 30 mg/dL (0-40)
[2020-11-30 09:05] LABS: Creatinine,Urine Random 114 mg/dL (Not Estab.); Microalbumin/Creatinine Ratio 90.1
[2020-11-30 09:14] LABS: Direct LDL Cholesterol 51.64 mg/dL (100-129)
[2020-11-30 09:21] LABS: T4 (Thyroxine) 8.8 ug/dl (5.53-11.0)
[2020-11-30 09:34] LABS: Thyroid Stimulating Hormone 1.49 uIU/mL (0.465-4.68)
[2020-12-02 04:28] LABS: Hemoglobin A1C 8.1 % (4.0-6.0)
== END ==
PROVIDERS: Visit Provider Nurse Practitioner Family
DX: E11.9 Type 2 diabetes mellitus without complications (principal); E66.9 Obesity, unspecified; E78.5 Hyperlipidemia, unspecified; I11.9 Hypertensive heart disease without heart failure; I25.10 Atherosclerotic heart disease of native coronary artery without angina pectoris; Z01.818 Encounter for other preprocedural examination; R41.0 Disorientation, unspecified; E55.9 Vitamin D deficiency, unspecified; L03.90 Cellulitis, unspecified; Z79.84 Long term (current) use of oral hypoglycemic drugs; Z68.31 Body mass index [BMI] 31.0-31.9, adult
CPT/HCPCS: 36415; 71046; 80053; 80061; 82043; 82306; 82570; 83036; 84436; 84443; 85025

== ENCOUNTER → 2020-12-11 11:12 | Outpatient (CLI) | payer MEDICARE, SELFPAY ==
--- NOTE | 2020-12-11 | CA_ITS ---
APPROVED REPORT Exam: Pharmacologic Technologist: Viri Diaz Ht: 5 ft 9 in Wt: 211 lbs BSA: 2.11 m2 HR: 69 bpm BP: 141/75 mmHg Indications: Shortness of Breath Medical History Medications: Aspirin,,,,, Losartan,,,,, Pioglitazone,,,,, Tramadol,,,,, CloPIdogrel,,,,, DicyCLOMINE,,,,, Cyclobenzaprine,,,,, Simvatatin,,,,, Stress Test Details Test: LEXISCAN HR Resting HR: 70 bpm Max Heart Rate (APMHR): 152.222722 bpm Max HR Achieved: 100 bpm Target HR (85% APMHR): 129.920839 bpm % of APMHR: 65.79 Recovery HR: 83 bpm BP Resting BP: 141.0/75.0 mmHg Max BP: 145.0/80.0 mmHg Recovery BP: 145.0/80.0 mmHg ECG Clinical Reason for Termination: Completed Protocol Exercise duration: 04:00 min Highest Stage Achieved: Exercise capacity: 1.0 METs Stress ECG Conclusion Non-diagnostic lexiscan stress test. Patient received the infusion per protocol without chest pain, ST segment changes or arrhythmias. See the nuclear report for further information. Electronically signed by : Nando Rossi MD 12/11/2020 19:03:59
--- NOTE | 2020-12-11 11:12 | NM_ITS ---
APPROVED REPORT Exam: Nuclear Stress Test Indication: CAD, 3 STENTS, HTN, D.M., HYPERLIPIDEMIA, FM HX Patient Location: Outpatient Stress Tech: Viri Diaz NM Tech:Rose Geiger GRAHAMFreeman RT (R)(N)(M) Ht: 5 ft 9 in Wt: 208 lbs HR: 69 bpm BP: 141/75 mmHg BSA: 2.10 m2 BMI: 30.7 History: CAD, 3 STENTS, HTN, D.M., HYPERLIPIDEMIA, FM HX Procedure: Patient received a 0.4 mg of intravenous Lexiscan, resting heart rate 69 bpm, resting blood pressure 141/75 mmHg, with Lexiscan maximum heart rate achived was 96 bpm which is Less than 85 % of the maximum predicted heart rate and blood pressure was 132/75 mmHg. With Lexiscan, patient denied any complaint of chest pain. Electrocardiogram Resting electrocardiogram showed sinus rhythm, with Lexiscan there is less than 1.[address] segment depression noted from the baseline EKG. The EKG portion of the Lexiscan is nondiagnostic. Cardiac Stress and Resting SPECT Images: Cardiac Stress and Resting SPECT images were obtained using technetium 99m Myoview 30.4 mCi stress and 10.30 mCi at rest. Gated SPECT for analysis of segmental wall motion and calculation of ejection fraction also done, prone images were also obtained. Cardiac stress and resting SPECT images show decreased tracer activity in the anterior apical, anteroseptal wall which improves on the resting images suggestive of reversible ischemia, computer derived ejection fraction is 50%, with no regional wall motion abnormality, there is transient ischemic dilatation of the left ventricle seen, raising the concerns for presence of multivessel coronary artery disease. Conclusion: 1. The EKG portion of the Lexiscan is nondiagnostic. 2. Scintigraphic evidence of reversible ischemia involving the anterior apical, and anteroseptal wall, computer derived ejection fraction 50% with no regional wall motion abnormality, there is transient ischemic dilatation of the left ventricle seen, raising the concerns for presence of multivessel coronary artery disease. 3. Abnormal Lexiscan Myoview study. Electronically signed by : Nando Rossi MD 12/11/2020 19:14:00
--- NOTE | 2020-12-11 13:30 | CA_ITS ---
APPROVED REPORT EXAM: Comprehensive 2D, Doppler, and color-flow Echocardiogram Drum Builder: Christina Chavez RCS, RVS Ht: 5 ft 9 in Wt: 211lbs BSA: 2.11 BP: 000/00 mmHg Indications: CAD post COVID-19 Echo Enhancing Agent Comments: Poor acoustics throughout with lung impedence. 2D Dimensions IVSd 1.17 cm LVEF (Visual) 69.80 % PWd 1.43 cm LVDd 5.64 cm LVDs 3.39 cm M-Mode Dimensions TAPSE 2.12 (<1.7) LV Diastology E Decel Time 210.00 (160-240 msec) E/A Ratio 0.92 MED E' 8.80 (< 7 cm/sec) MED A' 10.10 cm/s E'/MED E' Ratio 10.40 (>14) LAT E' 9.50 (<10 cm/sec) LAT A' 11.70 cm/s E/LAT E' Ratio 9.63 (>14) Aortic Valve LVOT Max 92.00 (70-110 cm/s) LVOT VTI 22.04 cm AoV Peak Parmjit. 125.00 (50-130 cm/s) AO Peak GR. 6.20 mmHg AO Mean GR. 3.10 (<5 mmHg) AO VTI 29.55 (18-25 cm) Mitral Valve MV A Velocity 99.00 (40-130 cm/s) E/A Ratio 0.92 MV Decel. Time 210.00 (160-240 ms) Pulmonary Valve PV Peak Velocity 80.00 (50-150 cm/s) Tricuspid Valve TR P. Velocity 130.00 cm/s RAP Estimate 10.00 mmHg RVSP 16.80 mmHg Left Ventricle Technically difficult study because of the patient factors and poor acoustic windows. Left atrium is mildly enlarged, left ventricle is normal size, mild concentric left ventricular hypertrophy, visually estimated ejection fraction 50% with no regional wall motion abnormality, endocardial surface a very poorly visualized. Diastolic parameters are inconclusive. Right Ventricle Right atrium is normal size, right ventricle is mildly enlarged with normal contractility. Aortic Valve Aortic valve is minimally thickened and fibrosed, there is no aortic stenosis or aortic insufficiency. Mitral Valve Mitral valve is grossly normal, there is trace mitral regurgitation. Tricuspid Valve Tricuspid grossly normal, there is trace tricuspid regurgitation, tricuspid regurgitation jet velocity is inadequate for calculation of the right ventricular systolic pressure. Pulmonic Valve Pulmonic valve is poorly visualized. Great Vessels Aortic root is normal size. Inferior vena cava is poorly visualized. Pericardium No significant pericardial effusion noted. Conclusion 1. Technically difficult study because of the patient factors and poor acoustic windows. Normal left ventricular size, visually estimated ejection fraction 50% with no regional wall motion abnormality, endocardial subsequently normalized. Also parameters inconclusive. 2. Mild mitral and tricuspid. 3. No significant pericardial effusion noted. 4. Enlarged right ventricle with normal contractility. Electronically signed by : Nando Rossi MD 12/11/2020 18:48:27
== END ==
PROVIDERS: PCP Nurse Practitioner Family; Visit Provider Urology
DX: E11.69 Type 2 diabetes mellitus with other specified complication (principal); E78.2 Mixed hyperlipidemia; I10 Essential (primary) hypertension; I25.10 Atherosclerotic heart disease of native coronary artery without angina pectoris; Z01.810 Encounter for preprocedural cardiovascular examination
CPT/HCPCS: 78452; 93017; 93306; A9502; J2785

== ENCOUNTER 2020-12-14 09:59 | Day surgery (SDC) | payer MEDICARE, SELFPAY ==
[2020-12-14] VITALS (10 sets, daily range): BP systolic 113–155; BP diastolic 63–97; PULSE 62–84; RESP 17–20; TEMP 36.6; O2SAT 93–100; BMI 31.1
[2020-12-14 09:36] LABS: Coronavirus 19, PCR Not Detected (NotDetected); Influenza A, PCR Not Detected (NotDetected); Influenza B, PCR Not Detected (NotDetected)
--- NOTE | 2020-12-14 09:36 | IR_ITS ---
APPROVED REPORT Patient Location: Outpatient Coin Wrapping Machine Operator: KIRTI Reagan RT (R) PROCEDURES Left heart catheterization Left ventriculogram Selective coronary angiogram INDICATION Preoperative evaluation, Known coronary artery disease, Abnormal Myoview Informed consent was obtained prior to the procedure. COMPLICATIONS None Estimated Blood Loss: Less than 10 mls TECHNIQUE One percent lidocaine used to anesthetize the right anterior aspect of the wrist. The right radial artery was accessed via the Seldinger technique. A 6 Polish sheath was placed in the right radial artery. 2.5 mg of verapamil, 800 mcg of nitroglycerin, 1mg Lidocaine and 5000 U Heparin were given through the arterial sheath. The trap catheter was also used to perform left heart catheterization, left ventriculogram and selective coronary angiogram. At the end of the procedure the sheath was removed good hemostasis was achieved using Traclet band, patient was transferred to the postop holding area in stable condition. ANGIOGRAPHIC RESULTS The left main artery Has a distal concentric 20% stenosis The left anterior descending artery Is a large-caliber vessel with a stent in the ostial segment which is widely patent with minimal in-stent restenosis and excellent distal transitioning. The remaining LAD has mild 20 to 30% stenosis The circumflex artery Is a large dominant vessel and has an ostial 30% stenosis with mild 10% diffuse luminal irregularities The right coronary artery Vestigial normal The [place] ventriculogram reveals Preserved at 55% The left ventricular end-diastolic pressure 15 mmHg IMPRESSION Widely patent coronary arteries as described above Preserved ejection fraction Borderline elevated LVEDP PLAN 1. Patient is alone acceptable risk to proceed with elective outpatient surgery 2. Risk factor modification Electronically signed by : Shay Biggs MD 12/14/2020 12:14:10
[2020-12-14 09:58] LABS: Basophils % 0.7 % (0.1-2.0); Eosinophils # 0.2 K/mm3 (0.0-0.4); Eosinophils % 3.3 % (0.1-12.0); Hematocrit 41.1 % (42.0-52.0); Hemoglobin 13.2 g/dL (14.1-18.0); Lymphocytes # 1.5 K/mm3 (0.7-4.5); Mean Corpuscular HGB Conc 32.2 g/dL (31.8-35.4); Mean Corpuscular Hemoglobin 24.9 pg (27.0-31.2); Mean Corpuscular Volume 77.2 fl (80-94); Mean Platelet Volume 7.5 fl (7.4-10.4); Monocytes # 0.4 K/mm3 (0.1-1.0); Monocytes % 7.8 % (1.7-9.3); Neutrophils # 3.1 K/mm3 (1.8-7.8); Neutrophils % 59.2 % (37.0-80.0); Platelet Count 270 K/mm3 (142-424); Red Blood Count 5.33 M/mm3 (4.60-6.20); Red Cell Distribution Width 16.6 % (11.5-17.5); White Blood Count 5.3 K/mm3 (4.8-10.8)
[2020-12-14 10:59] LABS: Chloride 102 mmol/L (98-107); Sodium 137 mmol/L (136-145)
[2020-12-14 11:00] LABS: Potassium 4.6 mmoL/L (3.5-5.1)
[2020-12-14 11:02] LABS: Blood Urea Nitrogen 21 mg/dl (9-20); Creatinine Clearance Estimated 96 mL/min (50-200); Estimated Glomerular Filt Rate 84 ml/min (>60); GFR (African American) 102 ML/MIN (>60)
[2020-12-14 11:03] LABS: Anion Gap 14.6 mEq/L (5-15); Calcium 9.3 mg/dl (8.4-10.2); Carbon Dioxide 25 mmol/L (22.0-30.0); Glucose 131 mg/dl (74-100)
== END 2020-12-14 15:02 | disposition home or self-care (01) ==
LOC: CATHLAB 10:00
PROVIDERS: Physician Assistant; PCP Nurse Practitioner Family; Visit Provider Internal Medicine
DX: I25.118 Atherosclerotic heart disease of native coronary artery with other forms of angina pectoris (principal); R06.00 Dyspnea, unspecified; R94.30 Abnormal result of cardiovascular function study, unspecified; E11.9 Type 2 diabetes mellitus without complications; I10 Essential (primary) hypertension; Z20.822 Contact with and (suspected) exposure to COVID-19; Z79.899 Other long term (current) drug therapy
CPT/HCPCS: 36415; 80048; 85025; 93458; 99152; C1725; C1769; C9803; J1644; Q9967; U0003; U0005

== ENCOUNTER → 2020-12-15 14:46 | Outpatient (CLI) | payer MEDICARE, SELFPAY ==
--- NOTE | 2020-12-15 14:46 | US_ITS ---
PROCEDURE: US BREAST LT COMPLETE ULTRASOUND BREAST RIGHT COMPLETE CLINICAL INDICATION: breast lump Tenderness behind nipples COMPARISON: US US BREAST RT COMPLETE from 12/15/2020 FINDINGS: Left breast: No cystic or solid lesions evident. Right breast: Mild diffuse decreased echogenicity at 3 o'clock near the nipple which may be due to edematous changes . No suspicious nodule evident. No definite solid or cystic nodule demonstrated. IMPRESSION: Suspected edematous changes at 3 o'clock near the nipple on the right. Unremarkable left breast ultrasound. Negative ultrasound does not exclude the possibility of malignancy. Therefore, suggest bilateral mammogram for further evaluation. BI-RADS category 0 incomplete. Recommend bilateral diagnostic mammogram for further evaluation Dictated by: Ashu Ruiz MD 12/23/2020 12:09 Ashu Ruiz MD in [place] 12/23/2020 12:09
== END ==
PROVIDERS: PCP Nurse Practitioner Family; Visit Provider Nurse Practitioner Family
DX: N63.0 Unspecified lump in unspecified breast (principal); N64.59 Other signs and symptoms in breast
CPT/HCPCS: 76641

== ENCOUNTER → 2020-12-22 16:26 | Outpatient (CLI) | payer MEDICARE, SELFPAY ==
[2020-12-22 16:29] LABS: Coronavirus 19, PCR Not Detected (NotDetected); Influenza A, PCR Not Detected (NotDetected); Influenza B, PCR Not Detected (NotDetected)
== END ==
PROVIDERS: Visit Provider Nurse Practitioner Family
DX: Z01.818 Encounter for other preprocedural examination (principal); Z20.822 Contact with and (suspected) exposure to COVID-19
CPT/HCPCS: C9803; U0003; U0005

== ENCOUNTER 2021-01-11 06:27 | Emergency (ER) | payer MEDICARE, SELFPAY ==
[2021-01-11 06:29] VITALS: BP 113/73; PULSE 100; RESP 16; TEMP 36.6; O2SAT 100; BMI 30.2
--- NOTE | 2021-01-11 06:50 | HMH.EDEPIS ---
ED Disposition Clinical Impression: Epistaxis, Lower extremity edema Disposition: Home, Self-Care Condition on Discharge: Good Instructions: DI for Nosebleed Additional Instructions: remove packing in about 24 hrs Referrals: Jonah Anthony APRN [Primary Care Provider] - Inder Giron MD [Staff Physician] - - Critical Care Critical Care Time: No Attestation: On 01/11/21, the high probability of a clinically significant, sudden or life threatening deterioration of the following system(s) required my full and direct attention, intervention and personal management. The time I documented below is in addition to time spent performing reported procedures but includes the following listed in this critical care notation. Medical Decision Making - Medical Records Medical records reviewed: Yes: I reviewed the patient's medical records. - Jevon Inquiry Pt receiving controlled substance: No Vital Signs: 01/11/21 06:29 Temperature 97.8 F Temperature Source Oral Pulse Rate [Apical] 100 H Respiratory Rate 16 Blood Pressure [Right Arm] 113/73 Blood Pressure Mean [Right Arm] 86 Blood Pressure Source [Right Arm] Automatic Cuff Blood Pressure Position [Right Arm] Sitting 02 Sat by Pulse Oximetry 100 Oxygen Delivery Method Room Air - US Data US Images: Lower Extremity ED US Reviewed: Yes: I discussed the US results w/the radiologist Preliminary Findings: Normal/NAD Epistaxis HPI - General Chief complaint: Epistaxis Stated complaint: Nose Bleed since yesterday Time Seen by Provider: 01/11/21 06:50 Mode of Arrival: Wheelchair Source of Information: Patient, Medical Record Limitations: knee replacement 3 weeks ago. Currently in wheelchair Description of Symptoms (Recalled from ER Triage Doc. by RN): Patient states his nose has been bleeding since 1000 yesterday morning off and on. - History of Present Illness HPI Narrative: lt sided nose bleed over the last few days - MD complaint: epistaxis Location: left nostril Onset (ago): hour(s) Context: other anticoagulant use - Related Data Home Medications Medication Instructions Recorded Confirmed tramadol 50 mg tablet 50 mg PO BIDP PRN 08/24/17 12/14/20 dicyclomine 10 mg capsule 10 mg PO QIDP PRN 90 Days #270 10/09/17 12/14/20 clopidogrel 75 mg tablet 75 mg PO DAILY tab 07/06/20 12/14/20 cyclobenzaprine 5 mg tablet 5 mg PO TIDP PRN 90 Days #90 04/12/21 09/20/21 Aspirin [Low Dose Aspirin EC] 81 mg PO DAILY 10/07/20 12/14/20 Simvastatin [Zocor 20mg] 20 mg PO HS 10/08/20 12/14/20 pioglitazone 30 mg tablet 30 mg PO DAILY 12/07/20 12/14/20 Losartan Potassium [Cozaar 50mg See Rx Instructions .ROUTE .COMPLEX 12/14/20 12/14/20 Tablets] Allergies Allergy/AdvReac Type Severity Reaction Status Date / Time Penicillins [PENICILLINS] Allergy Unknown I-ITCHING Verified 12/14/20 08:35 [facility] History - Hepatitis A Screen Drug use history?: No High risk sexual behaviors?: No History of sexually transmitted infection?: No Currently employed?: No Childcare worker?: No Do you have indoor plumbing?: Yes Do you have electricity?: Yes Attestation statement:: This patient has been screened for Hepatitis A risk factors. I have reviewed the patient's past medical history: Yes Medical History: Reports:: Anxiety, Coronary Artery Disease, Depression, Diabetes Mellitus Type 2, Hiatal Hernia, Hyperlipidemia, Hypertension, Kidney Stones Denies:: Cancer, Deep Vein Thrombosis, Diabetes Mellitus Type 1, Internal Pacemaker, MRSA, Seizures, Transient Ischemic Attacks (TIA) Other Medical History: Reports: Anemia, Arthritis, Sinus Problems, Other Comment: Torn rotator cuff of left shoulder, Lymphedema,IBS,Enlarged prostate Laterality Cases: Right: Arthroscopy Shoulder Other Surgeries: Yes: No Previous Surgery, Cardiac Catheterization, Cholecystectomy, Colonoscopy, Coronary Stent, Hernia Repair, Other. No: Pacemaker Amputation: No Fractures: Yes Comment: Right Wrist,Ro
--- NOTE | 2021-01-11 06:52 | CA_ITS ---
APPROVED REPORT Right Lower Extremity Venous Study for DVT. 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: Savannah RCS, RVS Indications Lower Extremity Pain: Right Lower Extremity Edema: Right CAD swelling 3 weeks Post-op Right knee replacement, Hx-coronary stents Medications Plavix Aspirin Vein Imaging CFV (R): compressive, spontaneous, phasic, augmentation SFJ (R): compressive, spontaneous, phasic, augmentation FEM (R): compressive, spontaneous, phasic, augmentation POP (R): compressive, spontaneous, phasic, augmentation DFV (R): compressive, spontaneous, phasic, augmentation PTV (R): compressive, spontaneous, phasic, augmentation GSV (R): compressive, spontaneous, phasic, augmentation SSV (R): compressive, spontaneous, phasic, augmentation Peroneals (R):compressive, spontaneous, phasic, augmentation GAS (R): compressive, spontaneous, phasic, augmentation Findings Color flow duplex demonstrates no evidence of DVT of the following right lower extremity Veins:Common Femoral Vein, Femoral Vein, Popliteal Vein, Posterior Tibial Veins, Peroneal Veins, Deep Femoral Vein. Negative for DVT. Conclusion Negative for DVT. Electronically signed by : Ashu Ruiz MD 01/11/2021 15:21:37
[2021-01-11 07:01] VITALS: BP 106/69; PULSE 61; O2SAT 98
--- NOTE | 2021-01-11 07:05 | PC.NURSE ---
CV at bedside for doppler.
[2021-01-11 07:30] VITALS: BP 129/75; PULSE 90; O2SAT 100
[2021-01-11 07:50] VITALS: BP 129/75; PULSE 90; RESP 18; TEMP 36.6; O2SAT 100
== END 2021-01-11 07:51 | disposition home or self-care (01) ==
PROVIDERS: Emergency Provider Emergency Medicine; PCP Nurse Practitioner Family
DX: R04.0 Epistaxis (principal); R60.0 Localized edema; F41.8 Other specified anxiety disorders; I25.10 Atherosclerotic heart disease of native coronary artery without angina pectoris; E11.9 Type 2 diabetes mellitus without complications; E78.5 Hyperlipidemia, unspecified; I10 Essential (primary) hypertension; Z79.899 Other long term (current) drug therapy; Z88.0 Allergy status to penicillin
CPT/HCPCS: 30901; 93971; 99282

== ENCOUNTER → 2021-03-08 08:51 | Outpatient (CLI) | payer MEDICARE, SELFPAY ==
--- NOTE | 2021-03-08 | ECG_ITS ---
APPROVED REPORT Exam: Resting ECG HR:94 bpm ECG Measurements Heart Rate 94 AXES MA 124 P 69 QRSd 88 QRS 66 QT 358 T 55 QTc 447 Conclusion Normal sinus rhythm Minimal voltage criteria for LVH, may be normal variant ST abnormality, possible digitalis effect Abnormal ECG Electronically signed by : Walker Hill MD 03/08/2021 20:16:32
[2021-03-08 09:24] LABS: Basophils % 0.6 % (0.1-2.0); Eosinophils # 0.3 K/mm3 (0.0-0.4); Eosinophils % 4.8 % (0.1-12.0); Hematocrit 40.1 % (42.0-52.0); Hemoglobin 12.7 g/dL (14.1-18.0); Lymphocytes % 31.6 % (10-50); Mean Corpuscular HGB Conc 31.7 g/dL (31.8-35.4); Mean Corpuscular Hemoglobin 24.2 pg (27.0-31.2); Mean Corpuscular Volume 76.4 fl (80-94); Mean Platelet Volume 6.6 fl (7.4-10.4); Monocytes # 0.4 K/mm3 (0.1-1.0); Monocytes % 6.3 % (1.7-9.3); Neutrophils # 3.5 K/mm3 (1.8-7.8); Neutrophils % 56.5 % (37.0-80.0); Platelet Count 364 K/mm3 (142-424); Red Blood Count 5.24 M/mm3 (4.60-6.20); Red Cell Distribution Width 16.3 % (11.5-17.5); White Blood Count 6.2 K/mm3 (4.8-10.8)
[2021-03-08 10:08] LABS: Chloride 103 mmol/L (98-107); Potassium 4.5 mmoL/L (3.5-5.1); Sodium 139 mmol/L (136-145)
[2021-03-08 10:10] LABS: Alanine Aminotransferase 19 U/L (12-78); Aspartate Amino Transferase 33 U/L (17-59); Blood Urea Nitrogen 17 mg/dl (9-20); Estimated Glomerular Filt Rate 96 ml/min (>60); GFR (African American) 116 ML/MIN (>60)
[2021-03-08 10:11] LABS: Albumin Level 4.5 g/dl (3.5-5.0); Albumin/Globulin Ratio 1.7 (1.1-1.8); Alkaline Phosphatase 90 U/L (38-126); Anion Gap 14.5 mEq/L (5-15); Bilirubin,Total 0.5 mg/dl (0.2-1.3); Calcium 9.6 mg/dl (8.4-10.2); Carbon Dioxide 26 mmol/L (22.0-30.0); Globulin 2.7 g/dL (1.3-3.2); Glucose 133 mg/dl (74-100); Total Protein,Serum 7.2 g/dl (6.3-8.2)
== END ==
PROVIDERS: Visit Provider Orthopaedic Surgery
DX: Z01.818 Encounter for other preprocedural examination (principal); M25.561 Pain in right knee
CPT/HCPCS: 36415; 80053; 85025; 93005

== ENCOUNTER → 2021-03-12 12:51 | Outpatient (CLI) | payer MEDICARE, SELFPAY ==
--- NOTE | 2021-03-12 12:51 | MM_ITS ---
PROCEDURE INFORMATION: Exam: Bilateral Diagnostic Breast Tomosynthesis Exam date and time: 03/12/2021 12:51 PM Age: 70 years old Clinical indication: Right breast palpable for 3 months, tenderness, PT had US on 12/15/2020 and a bilat mammogram was requested TECHNIQUE: Imaging protocol: Bilateral Diagnostic tomosynthesis and 2D mammography including computer-aided detection (CAD) when performed. Unilateral or bilateral exam. COMPARISON: 1. US BREAST RT COMPLETE 12/15/2020 3:01 PM 2. US BREAST LT COMPLETE 12/15/2020 2:56 PM FINDINGS: MAMMOGRAPHY: The breast tissue is heterogeneously dense, right side greater than left, consistent with bilateral gynecomastia. A skin marker was placed over the palpable abnormality in the right breast. The spot compression views demonstrate normal overlapping fibroglandular structures. There is no stellate mass, architectural distortion or suspicious microcalcifications in either breast to suggest malignancy. No skin thickening or axillary adenopathy. Ultrasound performed 11/25/2020 was reported as showing some edematous changes in the 3 o'clock periareolar region on the right in no suspicious findings on the left. Review of the sonogram suggest the findings are most compatible with gynecomastia. IMPRESSION: Palpable abnormality in the right breast corresponds both mammographically and sonographically to moderately dense fibroglandular structures, consistent with benign gynecomastia. There is no mammographic evidence of malignancy. Further evaluation of a palpable abnormality should be based on clinical grounds regardless of radiographic findings or lack thereof. Correlation with current medication use is also recommended to assess the potential etiology for the gynecomastia. ASSESSMENT: BI-RADS Category 2: Benign
== END ==
PROVIDERS: PCP Nurse Practitioner Family; Visit Provider Nurse Practitioner Family
DX: R92.8 Other abnormal and inconclusive findings on diagnostic imaging of breast (principal)
CPT/HCPCS: 77062; 77066; G0279

== ENCOUNTER → 2021-05-31 08:18 | Outpatient (CLI) | payer MEDICARE, SELFPAY ==
[2021-05-31 09:34] LABS: Basophils % 0.8 % (0.1-2.0); Eosinophils # 0.2 K/mm3 (0.0-0.4); Eosinophils % 3.6 % (0.1-12.0); Hemoglobin 12.4 g/dL (14.1-18.0); Lymphocytes # 1.3 K/mm3 (0.7-4.5); Lymphocytes % 30.2 % (10-50); Mean Corpuscular HGB Conc 31.7 g/dL (31.8-35.4); Mean Corpuscular Hemoglobin 23.7 pg (27.0-31.2); Mean Corpuscular Volume 74.8 fl (80-94); Monocytes # 0.4 K/mm3 (0.1-1.0); Monocytes % 8.6 % (1.7-9.3); Neutrophils # 2.4 K/mm3 (1.8-7.8); Neutrophils % 56.9 % (37.0-80.0); Platelet Count 286 K/mm3 (142-424); Red Blood Count 5.22 M/mm3 (4.60-6.20); Red Cell Distribution Width 17.8 % (11.5-17.5); White Blood Count 4.3 K/mm3 (4.8-10.8)
[2021-05-31 10:01] LABS: Chloride 100 mmol/L (98-107)
[2021-05-31 10:02] LABS: Potassium 4.5 mmoL/L (3.5-5.1); Sodium 133 mmol/L (136-145)
[2021-05-31 10:04] LABS: Alanine Aminotransferase 23 U/L (12-78); Albumin/Globulin Ratio 1.7 (1.1-1.8); Alkaline Phosphatase 97 U/L (38-126); Anion Gap 14.5 mEq/L (5-15); Aspartate Amino Transferase 34 U/L (17-59); Bilirubin,Total 0.7 mg/dl (0.2-1.3); Blood Urea Nitrogen 14 mg/dl (9-20); Carbon Dioxide 23 mmol/L (22.0-30.0); Estimated Glomerular Filt Rate 96 ml/min (>60); GFR (African American) 116 ML/MIN (>60); Globulin 2.4 g/dL (1.3-3.2); Total Protein,Serum 6.4 g/dl (6.3-8.2)
[2021-05-31 10:05] LABS: Calcium 8.8 mg/dl (8.4-10.2); Chol/HDL Ratio 2.3 (1-3.5); Cholesterol 134 mg/dl (140-200); Glucose 164 mg/dl (74-100); HDL Cholesterol 58 mg/dl (40-60); Triglycerides 134 mg/dl (30-150); VLDL Cholesterol 27 mg/dL (0-40)
[2021-05-31 10:16] LABS: Direct LDL Cholesterol 57.76 mg/dL (100-129)
[2021-05-31 10:21] LABS: T4 (Thyroxine) 9.2 ug/dl (5.53-11.0)
[2021-05-31 10:35] LABS: Thyroid Stimulating Hormone 1.68 uIU/mL (0.465-4.68)
[2021-05-31 10:38] LABS: Hemoglobin A1C 8.2 % (4.0-6.0)
[2021-05-31 16:23] LABS: Prostate Specific Ag Screen 0.3 ng/ml (0.0-4.0)
== END ==
PROVIDERS: Visit Provider Nurse Practitioner Family
DX: M25.561 Pain in right knee (principal); E11.9 Type 2 diabetes mellitus without complications; R41.0 Disorientation, unspecified; E66.9 Obesity, unspecified; Z12.5 Encounter for screening for malignant neoplasm of prostate; Z79.84 Long term (current) use of oral hypoglycemic drugs; Z68.32 Body mass index [BMI] 32.0-32.9, adult
CPT/HCPCS: 36415; 80053; 80061; 82043; 83036; 84436; 84443; 85025; G0103

== ENCOUNTER → 2021-06-11 08:08 | Outpatient (CLI) | payer MEDICARE, SELFPAY ==
[2021-06-11 08:28] LABS: Microscopic, Urine URINE MICROSCOPIC (MICROSCOPIC)
[2021-06-11 09:12] LABS: Basophils # 0.1 K/mm3 (0-0.2); Basophils % 1.1 % (0.1-2.0); Eosinophils # 0.2 K/mm3 (0.0-0.4); Eosinophils % 3.7 % (0.1-12.0); Hematocrit 38.4 % (42.0-52.0); Hemoglobin 12.3 g/dL (14.1-18.0); Lymphocytes # 1.3 K/mm3 (0.7-4.5); Lymphocytes % 29.4 % (10-50); Mean Corpuscular Volume 74.8 fl (80-94); Mean Platelet Volume 7.9 fl (7.4-10.4); Monocytes # 0.4 K/mm3 (0.1-1.0); Monocytes % 7.7 % (1.7-9.3); Neutrophils # 2.6 K/mm3 (1.8-7.8); Neutrophils % 58.1 % (37.0-80.0); Platelet Count 305 K/mm3 (142-424); Red Blood Count 5.14 M/mm3 (4.60-6.20); Red Cell Distribution Width 17.8 % (11.5-17.5); White Blood Count 4.5 K/mm3 (4.8-10.8)
[2021-06-11 09:50] LABS: Albumin Level 4.3 g/dl (3.5-5.0); Anion Gap 9.6 mEq/L (5-15); Blood Urea Nitrogen 18 mg/dl (9-20); Carbon Dioxide 27 mmol/L (22.0-30.0); Chloride 104 mmol/L (98-107); Estimated Glomerular Filt Rate 96 ml/min (>60); GFR (African American) 116 ML/MIN (>60); Glucose 161 mg/dl (74-100); Phosphorous 3.6 mg/dl (2.5-4.5); Potassium 4.6 mmoL/L (3.5-5.1); Sodium 136 mmol/L (136-145)
[2021-06-11 09:59] LABS: Intact Parathyroid Hormone 35.1 pg/mL (7.5-53.5)
[2021-06-11 11:00] LABS: Appearance,Urine CLEAR (Clear); Bilirubin,Urine Negative (Negative); Blood, Urine Negative (Negative); Color,Urine YELLOW (Yellow); Glucose,Urine (UA) Negative (Negative); Ketones,Urine Negative (Negative); Leukocyte Esterase,Urine Negative (Negative); Nitrate,Urine Negative (Negative); Protein,Urine TRACE (Negative); Specific Gravity, Urine >= 1.030 (1.005-1.030); Urobilinogen,Urine 0.2 EU/dl (0.2)
[2021-06-11 11:38] LABS: Bacteria,Urine Trace /lpf
[2021-06-11 12:05] LABS: Creatinine,Urine Random 128 mg/dL (Not Estab.)
== END ==
PROVIDERS: Visit Provider Internal Medicine Nephrology
DX: R80.9 Proteinuria, unspecified (principal); E55.9 Vitamin D deficiency, unspecified
CPT/HCPCS: 36415; 80069; 81001; 82306; 82570; 83970; 84155; 85025

== ENCOUNTER → 2021-06-14 12:48 | Outpatient (POV) | payer MEDICARE, SELFPAY | PROVIDERS: Visit Provider Internal Medicine Nephrology | DX: Z00.00 Encounter for general adult medical examination without abnormal findings (principal) ==

== ENCOUNTER → 2021-09-14 16:53 | Outpatient (CLI) | payer MEDICARE, SELFPAY ==
--- NOTE | 2021-09-14 16:58 | XR_ITS ---
PROCEDURE INFORMATION: Exam: XR Chest Exam date and time: 09/14/2021 4:59 PM Age: 71 years old Clinical indication: Pain; Right-sided; Additional info: R lateral rib pain TECHNIQUE: Imaging protocol: Radiologic exam of the chest. Views: 2 views. COMPARISON: CR XR CHEST 2V 11/30/2020 8:45 AM FINDINGS: Airway: Patent Lungs: Mild vascular congestion. Bilateral perihilar haziness and streaky-like opacities. Mild segmental bronchial wall thickening. Pleural spaces: Unremarkable. No pleural effusion. No pneumothorax. Heart/Mediastinum: Unremarkable. No cardiomegaly. Bones/joints: Tendon anchors in the right humeral head. There is no evidence of acutely displaced skeletal fractures. There is no evidence of joint dislocation. No aggressive osseous lesions. IMPRESSION: Concern for mild acute bronchitis or a mild viral illness in the appropriate clinical setting.
== END ==
PROVIDERS: PCP Nurse Practitioner Family; Visit Provider Nurse Practitioner Family
DX: R07.81 Pleurodynia (principal)
CPT/HCPCS: 71046

== ENCOUNTER 2022-01-10 20:06 | Emergency (ER) | payer MEDICARE, SELFPAY ==
[2022-01-10 20:07] VITALS: BP 148/91; PULSE 101; RESP 20; TEMP 37.4; O2SAT 96; BMI 32.6
--- NOTE | 2022-01-10 20:25 | XR_ITS ---
PROCEDURE INFORMATION: Exam: XR Chest Exam date and time: 01/10/2022 8:14 PM Age: 71 years old Clinical indication: Prior surgery; Surgery date: 6+ months; Surgery type: 2 cardiac stents; Patient HX: Cough and generalized weakness. TECHNIQUE: Imaging protocol: Radiologic exam of the chest. Views: 4 or more views. COMPARISON: CR XR CHEST 2V 09/14/2021 4:59 PM FINDINGS: Lungs: Study limited secondary to positioning and superimposed artifact. The mid lung zone cannot be adequately evaluated. No evidence of acute cardio pulmonary disease involving the lung apices or the lung bases. Pleural spaces: Unremarkable. No pleural effusion. No pneumothorax. Heart/Mediastinum: Unremarkable. No cardiomegaly. Bones/joints: Unremarkable. IMPRESSION: Limited interpretation secondary to artifact and technique. No evidence of acute cardiopulmonary disease involving the lung apices are the lung bases. Perihilar regions cannot be adequately evaluated.
[2022-01-10 20:44] LABS: Basophils # 0.1 K/mm3 (0-0.2); Basophils % 0.4 % (0.1-2.0); Eosinophils # 0.1 K/mm3 (0.0-0.4); Hematocrit 41.7 % (42.0-52.0); Hemoglobin 13.5 g/dL (14.1-18.0); Lymphocytes # 1.3 K/mm3 (0.7-4.5); Lymphocytes % 10.4 % (10-50); Mean Corpuscular HGB Conc 32.3 g/dL (31.8-35.4); Mean Corpuscular Hemoglobin 24.8 pg (27.0-31.2); Mean Corpuscular Volume 76.8 fl (80-94); Mean Platelet Volume 7.8 fl (7.4-10.4); Monocytes # 0.8 K/mm3 (0.1-1.0); Neutrophils # 10.2 K/mm3 (1.8-7.8); Neutrophils % 82.1 % (37.0-80.0); Platelet Count 269 K/mm3 (142-424); Red Blood Count 5.44 M/mm3 (4.60-6.20); Red Cell Distribution Width 16.3 % (11.5-17.5); White Blood Count 12.4 K/mm3 (4.8-10.8)
--- NOTE | 2022-01-10 20:45 | HMH.EDWEAK ---
Discharge Plan Disposition Patient Disposition: Left Against Medical Advice Condition: Undetermined Prescriptions Prescriptions: New levofloxacin 500 mg tablet 500 mg PO DAILY Qty: 7 0RF No Action dicyclomine 10 mg capsule 10 mg PO QIDP PRN (Reason: Stomach pain) 90 Days Qty: 270 cyclobenzaprine 5 mg tablet 5 mg PO TIDP PRN (Reason: Muscle spasms) 90 Days Qty: 90 azithromycin 250 mg tablet See Rx Instructions PO .COMPLEX Qty: 6 0RF Rx Instructions: take 500 mg today (day 1), then 250 mg for 4 days (days 2-5) prednisone 20 mg tablet 20 mg PO BID 5 Days Qty: 10 0RF tramadol 50 mg tablet 50 mg PO BIDP PRN (Reason: pain) simvastatin 20 mg tablet See Rx Instructions .ROUTE .COMPLEX Qty: 90 3RF Dose Instruction: TAKE 1 TABLET DAILY FOR HIGH CHOLESTEROL Rx Instructions: TAKE 1 TABLET DAILY FOR HIGH CHOLESTEROL nystatin 100,000 unit/gram cream 1 applic TOPICAL BID Qty: 15 0RF mupirocin 2 % ointment 1 applic TOPICAL BID Qty: 22 5RF clopidogrel 75 mg tablet See Rx Instructions .ROUTE .COMPLEX Qty: 90 3RF Dose Instruction: TAKE 1 TABLET DAILY FOR PLATELET INHIBITOR Rx Instructions: TAKE 1 TABLET DAILY FOR PLATELET INHIBITOR pioglitazone [Actos] 30 mg tablet 30 mg PO DAILY Qty: 90 3RF metformin 500 mg tablet extended release 24 hr 500 mg PO DAILY Qty: 90 3RF losartan 50 mg tablet See Rx Instructions .ROUTE .COMPLEX Qty: 90 3RF Dose Instruction: TAKE 1 TABLET DAILY Rx Instructions: TAKE 1 TABLET DAILY aspirin 81 MG tablet,delayed release (DR/EC) 81 mg PO DAILY Referrals Follow up/Referrals: Markus Huang APRN [Primary Care Provider] - See instructions Clinical Impressions Clinical Impression: Left against medical advice, SIRS (systemic inflammatory response syndrome), Acute febrile illness Instructions Patient Instructions: DI for Fever (Symptom) -- Adult Discharge ED Provider: Baldemar Keller Weakness HPI General Chief complaint: Weakness Stated complaint: Urinary problems Time Seen by Provider: 01/10/22 20:40 Mode of Arrival: Wheelchair Source of Information: Patient, Relative and Medical Record Limitations: No Limitations Description of Symptoms (Recalled from ER Triage Doc. by RN): Pt had to be helped from car into wc. Pt reports not feeling well for 3 days w/ urinary incontinence. Pt changed and placed in a gown d/t urinary incontinence on arrival. Pt reports fever of 101 today but he is unsure if he has had anything OTC for fever. History of Present Illness HPI Narrative: has not felt well over the last 3 days - was talking with and sent for being confused - was reported to have fever - no cough or rash and no trauma but had some urinary incont MD Complaint: generalized weakness Onset (ago): day(s) Location: generalized Migration: none Severity: moderate Associated symptoms: other (urinary sx ) Related Data Home Medications Medication Instructions Recorded Confirmed tramadol 50 mg tablet 50 mg PO BIDP PRN pain 08/24/17 10/22/21 dicyclomine 10 mg capsule 10 mg PO QIDP PRN Stomach pain 90 10/09/17 10/22/21 days ##270 cyclobenzaprine 5 mg tablet 5 mg PO TIDP PRN Muscle spasms 90 07/06/20 10/22/21 days ##90 aspirin 81 mg tablet,delayed 81 mg PO DAILY Heart disease 10/07/20 10/22/21 release Previous Rx's Medication Instructions Recorded simvastatin 20 mg tablet See Rx Instructions .Route 04/30/21 .COMPLEX #90 tabs nystatin 100,000 unit/gram topical 1 applic topical BID #15 grams 07/26/21 cream mupirocin 2 % topical ointment 1 applic topical BID #22 grams 08/30/21 azithromycin 250 mg tablet See Rx Instructions PO .COMPLEX #6 09/17/21 tabs prednisone 20 mg tablet 20 mg PO BID 5 days #10 tabs 09/17/21 clopidogrel 75 mg tablet See Rx Instructions .Route 10/26/21 .COMPLEX #90 tabs metformin 500 mg tablet,extended 500 mg PO DAILY #90 tabs 12/01/21 rel
[2022-01-10 20:50] LABS: Alanine Aminotransferase 39 U/L (12-78); Albumin Level 4.4 g/dl (3.5-5.0); Albumin/Globulin Ratio 1.3 (1.1-1.8); Alkaline Phosphatase 120 U/L (38-126); Aspartate Amino Transferase 53 U/L (17-59); Bilirubin,Total 1.1 mg/dl (0.2-1.3); Blood Urea Nitrogen 19 mg/dl (9-20); Calcium 8.7 mg/dl (8.4-10.2); Carbon Dioxide 24 mmol/L (22.0-30.0); Chloride 98 mmol/L (98-107); Creatinine Clearance Estimated 96 mL/min (50-200); Estimated Glomerular Filt Rate 74 ml/min (>60); GFR (African American) 90 ML/MIN (>60); Globulin 3.3 g/dL (1.3-3.2); Glucose 161 mg/dl (74-100); Sodium 136 mmol/L (136-145); Total Protein,Serum 7.7 g/dl (6.3-8.2)
[2022-01-10 20:57] LABS: Microscopic, Urine URINE MICROSCOPIC (MICROSCOPIC)
[2022-01-10 21:00] VITALS: BP 143/89; PULSE 100; O2SAT 97
[2022-01-10 21:00] LABS: Appearance,Urine CLEAR (Clear); Bilirubin,Urine Negative (Negative); Blood, Urine Negative (Negative); Color,Urine YELLOW (Yellow); Glucose,Urine (UA) TRACE (Negative); Ketones,Urine Negative (Negative); Leukocyte Esterase,Urine Negative (Negative); Nitrate,Urine Negative (Negative); PH,Urine 5.5 (5.0-8.5); Protein,Urine 1+ (Negative); Specific Gravity, Urine >= 1.030 (1.005-1.030); Urobilinogen,Urine 0.2 EU/dl (0.2)
[2022-01-10 21:25] LABS: Coronavirus 19, PCR Not Detected (NotDetected); Influenza A, PCR Not Detected (NotDetected); Influenza B, PCR Not Detected (NotDetected)
[2022-01-10 21:52] LABS: Squamous Epithelial Cell,Urine Occasional #/hpf (0-5); WBC,Urine Occasional #/hpf (0-3)
--- NOTE | 2022-01-10 21:59 | CT_ITS ---
PROCEDURE INFORMATION: Exam: CT Abdomen And Pelvis With Contrast Exam date and time: 01/10/2022 10:10 PM Age: 71 years old Clinical indication: Other: Incontinent and weak TECHNIQUE: Imaging protocol: Computed tomography of the abdomen and pelvis with contrast. Radiation optimization: All CT scans at this facility use at least one of these dose optimization techniques: automated exposure control; mA and/or kV adjustment per patient size (includes targeted exams where dose is matched to clinical indication); or iterative reconstruction. Contrast material: ISOVUE; Contrast volume: 75 ml; Contrast route: IV; COMPARISON: CT ABDOMEN PELVIS WO CON 07/07/2019 11:37 AM FINDINGS: Lungs: Focal consolidation in the medial left lower lobe. Liver: Diffuse hepatic steatosis. Gallbladder and bile ducts: The patient is status post cholecystectomy. Pancreas: No acute findings, focal abnormality or ductal dilation. Spleen: No splenomegaly or focal abnormality. Adrenal glands: Normal. No mass. Kidneys and ureters: No hydronephrosis. Stomach and bowel: No obstruction. No mucosal thickening. Appendix: No evidence of appendicitis. Intraperitoneal space: No free air. No significant fluid collection. Vasculature: No abdominal aortic aneurysm. Lymph nodes: No pathologically enlarged lymph nodes. Urinary bladder: Unremarkable as visualized. Reproductive: Unremarkable as visualized. Bones/joints: Multilevel degenerative changes throughout the visualized spine. No acute osseous findings. Soft tissues: Small uncomplicated bilateral fat containing inguinal hernias. IMPRESSION: 1. Left lower lobe consolidation concerning for pneumonia. 2. Hepatic steatosis.
[2022-01-10 22:00] VITALS: BP 136/75; PULSE 98; O2SAT 97
[2022-01-10 22:30] VITALS: BP 138/74; PULSE 96; O2SAT 98
--- NOTE | 2022-01-10 23:32 | PC.NURSE ---
Pt requesting to leave because he has to work tomorrow. made aware. Pt still aware we are waiting on ct results.
[2022-01-10 23:33] VITALS: BP 114/69; PULSE 98; RESP 18; TEMP 37.3; O2SAT 96
== END 2022-01-10 23:40 | disposition left against medical advice (07) ==
PROVIDERS: Emergency Provider Emergency Medicine; PCP Nurse Practitioner Family
DX: R65.10 Systemic inflammatory response syndrome (SIRS) of non-infectious origin without acute organ dysfunction (principal); Z53.29 Procedure and treatment not carried out because of patient's decision for other reasons; E11.9 Type 2 diabetes mellitus without complications; I10 Essential (primary) hypertension; R50.9 Fever, unspecified
CPT/HCPCS: 71045; 74177; 80053; 81001; 85025; 96365; 96375; 99284; C9803; J2405; Q9967; U0003; U0005

== ENCOUNTER → 2022-05-30 16:52 | Outpatient (CLI) | payer MEDICARE, SELFPAY ==
--- NOTE | 2022-05-30 17:20 | XR_ITS ---
PROCEDURE INFORMATION: Exam: XR Left Foot Complete; Alignment Exam date and time: 05/30/2022 5:21 PM Age: 71 years old Clinical indication: Pain; Foot; Left; Additional info: Ulcer, swelling, pain, possible gout/infection TECHNIQUE: Imaging protocol: Radiologic exam of the left foot. Views: 3 or more views. COMPARISON: CA VENOUS DOPPLER LE 10/08/2020 6:32 AM FINDINGS: Bones/joints: Posttraumatic deformity 4th proximal phalanx. Focal lucency at the base of the 4th phalanx. This is well corticated and may correspond to a small cyst. Soft tissues: Soft tissue swelling adjacent to the 5th metatarsophalangeal articulation. Lucent changes demonstrated involving the medial aspect of the 5th metatarsal head and base of the 5th proximal phalanx. Soft tissue swelling dorsal aspect of the mid and forefoot. Vasculature: Small vessel calcification. IMPRESSION: 1. No evidence of acute osseous injury. 2. Soft tissue swelling with erosive changes most pronounced medial aspect of the 5th metatarsophalangeal articulation. Findings nonspecific and may reflect an inflammatory arthritis. Osteomyelitis particularly if there is a history of diabetes could not be excluded.
--- NOTE | 2022-05-30 17:20 | XR_ITS ---
PROCEDURE INFORMATION: Exam: XR Right Foot Complete; Alignment Exam date and time: 05/30/2022 5:21 PM Age: 71 years old Clinical indication: Pain; Foot; Right; Additional info: Ulcer TECHNIQUE: Imaging protocol: Radiologic exam of the right foot. Views: 3 or more views. COMPARISON: None FINDINGS: Bones/joints: Mild degenerative changes at the level of the tarsometatarsal metatarsophalangeal articulations. Minimal enthesophyte plantar margin of the calcaneus at the site of attachment of the plantar aponeurosis. Subtle lucent changes medial aspect of the 5th metatarsophalangeal articulation. Findings may reflect erosive changes. Soft tissues: Normal. Vasculature: Small vessel calcification. IMPRESSION: 1. Clinically correlate regarding inflammatory arthritis. 2. No evidence of acute osseous injury.
[2022-05-30 17:23] LABS: Basophils % 0.5 % (0.1-2.0); Eosinophils # 0.1 K/mm3 (0.0-0.4); Eosinophils % 2.5 % (0.1-12.0); Hematocrit 41.9 % (42.0-52.0); Hemoglobin 13.6 g/dL (14.1-18.0); Lymphocytes # 1.2 K/mm3 (0.7-4.5); Lymphocytes % 21.4 % (10-50); Mean Corpuscular HGB Conc 32.5 g/dL (31.8-35.4); Mean Corpuscular Hemoglobin 25.1 pg (27.0-31.2); Mean Corpuscular Volume 77.2 fl (80-94); Mean Platelet Volume 8.1 fl (7.4-10.4); Monocytes # 0.5 K/mm3 (0.1-1.0); Neutrophils # 3.9 K/mm3 (1.8-7.8); Neutrophils % 67.6 % (37.0-80.0); Platelet Count 236 K/mm3 (142-424); Red Blood Count 5.43 M/mm3 (4.60-6.20); White Blood Count 5.7 K/mm3 (4.8-10.8)
[2022-05-30 17:33] LABS: Hemoglobin A1C 8.7 % (4.0-6.0)
[2022-05-30 18:04] LABS: Alanine Aminotransferase 33 U/L (12-78); Albumin Level 4.1 g/dl (3.5-5.0); Albumin/Globulin Ratio 1.7 (1.1-1.8); Alkaline Phosphatase 79 U/L (38-126); Anion Gap 9.6 mEq/L (5-15); Aspartate Amino Transferase 35 U/L (17-59); Bilirubin,Total 0.8 mg/dl (0.2-1.3); Blood Urea Nitrogen 14 mg/dl (9-20); Calcium 8.5 mg/dl (8.4-10.2); Carbon Dioxide 27 mmol/L (22.0-30.0); Chloride 102 mmol/L (98-107); Estimated Glomerular Filt Rate 96 ml/min (>60); GFR (African American) 116 ML/MIN (>60); Globulin 2.4 g/dL (1.3-3.2); Glucose 305 mg/dl (74-100); Potassium 3.6 mmoL/L (3.5-5.1); Sodium 135 mmol/L (136-145); Total Protein,Serum 6.5 g/dl (6.3-8.2)
[2022-05-30 18:09] LABS: C-Reactive Protein 1.4 mg/L (0-4)
[2022-05-30 18:31] LABS: Erythrocyte Sedimentation Rate 21 mm/hr (0-20)
== END ==
PROVIDERS: PCP Nurse Practitioner Family; Visit Provider Nurse Practitioner Family
DX: E11.621 Type 2 diabetes mellitus with foot ulcer (principal); L97.509 Non-pressure chronic ulcer of other part of unspecified foot with unspecified severity; Z79.84 Long term (current) use of oral hypoglycemic drugs
CPT/HCPCS: 36415; 73630; 80053; 83036; 85025; 85651; 86140

== ENCOUNTER → 2022-06-06 23:44 | Outpatient (CLI) | payer MEDICARE, SELFPAY | PROVIDERS: PCP Nurse Practitioner Family; Visit Provider Nurse Practitioner Family | DX: L60.8 Other nail disorders (principal); B35.1 Tinea unguium | CPT/HCPCS: 87102; 87206; 87220 ==

== ENCOUNTER → 2022-07-11 11:44 | Outpatient (POV) | payer MEDICARE, SELFPAY | PROVIDERS: Visit Provider Nurse Practitioner | DX: Z00.00 Encounter for general adult medical examination without abnormal findings (principal) ==

== ENCOUNTER → 2022-08-04 14:08 | Outpatient (CLI) | payer MEDICARE, SELFPAY ==
--- NOTE | 2022-08-04 14:26 | XR_ITS ---
FINAL REPORT CLINICAL HISTORY: Left foot pain COMPARISON: 05/30/2022 FINDINGS: LEFT FOOT Three views demonstrate no acute fracture or dislocation. There is scattered degenerative changes. Mild erosions are seen along the 3rd, 4th, and 5th MTP joints. There is chronic deformity of the 4th proximal phalanx. Calcaneal spurring is noted. IMPRESSION: Stable exam without acute bony abnormality. Reviewed, Interpreted and Dictated by Mavis Mcdermott MD Transcribed by Stephani Lees Authenticated and [facility]
== END ==
PROVIDERS: PCP Nurse Practitioner Family; Visit Provider Nurse Practitioner Family
DX: M79.672 Pain in left foot (principal)
CPT/HCPCS: 73630

== ENCOUNTER → 2022-10-07 07:37 | Outpatient (CLI) | payer MEDICARE, SELFPAY ==
[2022-10-07 08:13] LABS: Basophils % 0.6 % (0.1-2.0); Eosinophils # 0.2 K/mm3 (0.0-0.4); Eosinophils % 3.5 % (0.1-12.0); Hematocrit 43.9 % (42.0-52.0); Hemoglobin 14.2 g/dL (14.1-18.0); Lymphocytes # 1.3 K/mm3 (0.7-4.5); Lymphocytes % 25.2 % (10-50); Mean Corpuscular HGB Conc 32.4 g/dL (31.8-35.4); Mean Corpuscular Hemoglobin 26.2 pg (27.0-31.2); Mean Corpuscular Volume 80.8 fl (80-94); Mean Platelet Volume 8.1 fl (7.4-10.4); Monocytes # 0.4 K/mm3 (0.1-1.0); Monocytes % 7.3 % (1.7-9.3); Neutrophils # 3.3 K/mm3 (1.8-7.8); Neutrophils % 63.4 % (37.0-80.0); Platelet Count 223 K/mm3 (142-424); Red Blood Count 5.43 M/mm3 (4.60-6.20); Red Cell Distribution Width 15.8 % (11.5-17.5); White Blood Count 5.2 K/mm3 (4.8-10.8)
[2022-10-07 08:36] LABS: Erythrocyte Sedimentation Rate 10 mm/hr (0-20)
[2022-10-07 08:55] LABS: Alanine Aminotransferase 28 U/L (12-78); Albumin Level 4.4 g/dl (3.5-5.0); Albumin/Globulin Ratio 1.6 (1.1-1.8); Alkaline Phosphatase 79 U/L (38-126); Anion Gap 11.2 mEq/L (5-15); Aspartate Amino Transferase 36 U/L (17-59); Bilirubin,Total 1.1 mg/dl (0.2-1.3); Blood Urea Nitrogen 19 mg/dl (9-20); Calcium 8.9 mg/dl (8.4-10.2); Carbon Dioxide 27 mmol/L (22.0-30.0); Chloride 103 mmol/L (98-107); Estimated Glomerular Filt Rate 83 ml/min (>60); GFR (African American) 101 ML/MIN (>60); Globulin 2.7 g/dL (1.3-3.2); Glucose 142 mg/dl (74-100); Phosphorous 3.4 mg/dl (2.5-4.5); Potassium 4.2 mmoL/L (3.5-5.1); Sodium 137 mmol/L (136-145); Total Protein,Serum 7.1 g/dl (6.3-8.2)
[2022-10-07 08:58] LABS: Creatinine,Urine Random 102 mg/dL (Not Estab.)
[2022-10-07 09:01] LABS: C-Reactive Protein 1.8 mg/L (0-4)
[2022-10-08 10:19] LABS: HBsAg Screen Negative (Negative); HCV Ab Non Reactive (Non Reactive); Hep A Ab, IGM Negative (Negative); Hep B Core Ab, IgM Negative (Negative)
[2022-10-11 19:36] LABS: QuantiFERON-TB Gold Plus Positive (Negative)
== END ==
PROVIDERS: PCP Nurse Practitioner Family; Visit Provider Internal Medicine
DX: M06.00 Rheumatoid arthritis without rheumatoid factor, unspecified site (principal); M15.9 Polyosteoarthritis, unspecified; R53.83 Other fatigue; N18.1 Chronic kidney disease, stage 1; E66.9 Obesity, unspecified; Z68.31 Body mass index [BMI] 31.0-31.9, adult; Z91.89 Other specified personal risk factors, not elsewhere classified
CPT/HCPCS: 36415; 80053; 80069; 80074; 82043; 82306; 82570; 85025; 85651; 86140; 86480

== ENCOUNTER → 2022-10-10 09:15 | Outpatient (POV) | payer MEDICARE, SELFPAY | PROVIDERS: Visit Provider Nurse Practitioner | DX: Z00.00 Encounter for general adult medical examination without abnormal findings (principal) ==

== ENCOUNTER → 2022-11-11 07:47 | Outpatient (CLI) | payer MEDICARE, SELFPAY ==
[2022-11-11 08:20] LABS: Basophils % 0.6 % (0.1-2.0); Eosinophils # 0.2 K/mm3 (0.0-0.4); Eosinophils % 3.2 % (0.1-12.0); Hemoglobin 14.1 g/dL (14.1-18.0); Lymphocytes # 1.2 K/mm3 (0.7-4.5); Lymphocytes % 23.4 % (10-50); Mean Corpuscular HGB Conc 32.8 g/dL (31.8-35.4); Mean Corpuscular Hemoglobin 26.3 pg (27.0-31.2); Mean Corpuscular Volume 80.1 fl (80-94); Mean Platelet Volume 7.8 fl (7.4-10.4); Monocytes # 0.3 K/mm3 (0.1-1.0); Monocytes % 6.5 % (1.7-9.3); Neutrophils # 3.5 K/mm3 (1.8-7.8); Neutrophils % 66.4 % (37.0-80.0); Platelet Count 202 K/mm3 (142-424); Red Blood Count 5.37 M/mm3 (4.60-6.20); Red Cell Distribution Width 15.4 % (11.5-17.5); White Blood Count 5.2 K/mm3 (4.8-10.8)
[2022-11-11 08:39] LABS: Chloride 107 mmol/L (98-107); Potassium 3.9 mmoL/L (3.5-5.1); Sodium 139 mmol/L (136-145)
[2022-11-11 08:54] LABS: Direct LDL Cholesterol 50.68 mg/dL (100-129)
[2022-11-11 09:00] LABS: Free T4 (Free Thyroxine) 0.96 ng/dl (0.78-2.19)
[2022-11-11 09:13] LABS: Thyroid Stimulating Hormone 1.62 uIU/mL (0.465-4.68)
[2022-11-11 09:16] LABS: 25-OH Vitamin D, Total 39.2 ng/mL (30-100)
[2022-11-11 10:33] LABS: Alanine Aminotransferase 28 U/L (12-78); Albumin Level 4.3 g/dl (3.5-5.0); Albumin/Globulin Ratio 1.7 (1.1-1.8); Alkaline Phosphatase 76 U/L (38-126); Anion Gap 14.9 mEq/L (5-15); Aspartate Amino Transferase 36 U/L (17-59); Bilirubin,Total 1.2 mg/dl (0.2-1.3); Blood Urea Nitrogen 17 mg/dl (9-20); Calcium 8.6 mg/dl (8.4-10.2); Carbon Dioxide 21 mmol/L (22.0-30.0); Cholesterol 130 mg/dl (140-200); Estimated Glomerular Filt Rate 96 ml/min (>60); GFR (African American) 116 ML/MIN (>60); Globulin 2.6 g/dL (1.3-3.2); Glucose 136 mg/dl (74-100); HDL Cholesterol 66 mg/dl (40-60); Total Protein,Serum 6.9 g/dl (6.3-8.2); Triglycerides 75 mg/dl (30-150); VLDL Cholesterol 15 mg/dL (0-40)
[2022-11-11 11:04] LABS: Prostate Specific Ag Screen 0.4 ng/ml (0.0-4.0)
[2022-11-11 11:47] LABS: Hemoglobin A1C 7.3 % (4.0-6.0)
== END ==
PROVIDERS: PCP Nurse Practitioner Family; Visit Provider Emergency Medicine
DX: R53.1 Weakness; R53.83 Other fatigue; E55.9 Vitamin D deficiency, unspecified; E11.69 Type 2 diabetes mellitus with other specified complication; E03.9 Hypothyroidism, unspecified; K59.00 Constipation, unspecified; Z12.5 Encounter for screening for malignant neoplasm of prostate; Z79.84 Long term (current) use of oral hypoglycemic drugs
CPT/HCPCS: 36415; 80053; 80061; 82306; 83036; 84439; 84443; 85025; G0103

== ENCOUNTER → 2022-11-15 15:14 | Outpatient (POV) | payer MEDICARE, SELFPAY | PROVIDERS: Visit Provider Dermatology | DX: Z00.00 Encounter for general adult medical examination without abnormal findings (principal) ==

== ENCOUNTER → 2022-11-18 14:53 | Outpatient (CLI) | payer MEDICARE, SELFPAY ==
--- NOTE | 2022-11-18 14:56 | CT_ITS ---
FINAL REPORT TECHNIQUE: Axial images were obtained through the chest without contrast. This study was performed with techniques to keep radiation doses as low as reasonably achievable (ALARA). Individualized dose reduction techniques using automated exposure control or adjustment of mA and/or kV according to the patient's size were employed. CLINICAL HISTORY: RHEUMATOID ARTHRITIS,ABN FINDINGS OF LUNG ON CXR THAT WAS DONE AT ANOTHER FACILITY COMPARISON: 11/04/2022 FINDINGS: There are a few small calcified mediastinal lymph nodes. There is dense coronary artery calcification. The heart size is normal. There is no pericardial or pleural effusion. There is mild scarring or fibrosis in the periphery of both lungs. Limited images of the upper abdomen reveal high density cysts in the periphery of the left kidney, largest measures 2 cm with a mean attenuation value of 35 Hounsfield units. IMPRESSION: Mild to moderate changes of scar or fibrosis. Presumed complex cyst in the left kidney. Reviewed, Interpreted and Dictated by Nirav Hernandes MD Transcribed by Shahla Iglesias Authenticated and . [facility]
== END ==
PROVIDERS: PCP Nurse Practitioner Family; Visit Provider Internal Medicine
DX: D89.9 Disorder involving the immune mechanism, unspecified (principal); M06.9 Rheumatoid arthritis, unspecified; R76.12 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 gamma interferon antigen response without active tuberculosis; R91.8 Other nonspecific abnormal finding of lung field
CPT/HCPCS: 71250

== ENCOUNTER → 2022-12-21 15:51 | Outpatient (CLI) | payer MEDICARE, SELFPAY ==
[2022-12-22 09:48] LABS: Adenovirus F 40/41, stool Not Detected (NotDetected); Astrovirus Not Detected (NotDetected); Campylobacter Not Detected (NotDetected); Clostridium Difficile A/B, PCR Not Detected (NotDetected); Cryptosporidium Not Detected (NotDetected); Cyclospora Cayetanesis Not Detected (NotDetected); Entamoeba histolytica Not Detected (NotDetected); Enteroaggregative E coli Not Detected (NotDetected); Enteropathogenic E coli Not Detected (NotDetected); Enterotoxigenic E coli Not Detected (NotDetected); Giardia lamblia Not Detected (NotDetected); Norovirus Not Detected (NotDetected); Plesimonas Shigalloides, PCR Not Detected (NotDetected); Rotavirus A Not Detected (NotDetected); Salmonella, PCR Not Detected (NotDetected); Sapovirus Not Detected (NotDetected); Shiga-like toxin E coli Not Detected (NotDetected); Shigella Enterovasive E coli Not Detected (NotDetected); Vibrio Cholerae Not Detected (NotDetected); Vibrio, PCR Not Detected (NotDetected); Yersinia Entercolitica, PCR Not Detected (NotDetected)
[2022-12-29 15:10] LABS: Pancreatic Elastase, Fecal 226 (>200)
== END ==
PROVIDERS: PCP Nurse Practitioner Family; Visit Provider Internal Medicine Infectious Disease
DX: R19.7 Diarrhea, unspecified (principal); R76.12 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 gamma interferon antigen response without active tuberculosis; E11.9 Type 2 diabetes mellitus without complications; M06.09 Rheumatoid arthritis without rheumatoid factor, multiple sites; Z79.84 Long term (current) use of oral hypoglycemic drugs
CPT/HCPCS: 82656; 87116; 87206; 87324; 87506

== ENCOUNTER → 2022-12-31 09:55 | Outpatient (CLI) | payer MEDICARE, SELFPAY | PROVIDERS: PCP Nurse Practitioner Family; Visit Provider Nurse Practitioner Family | DX: R84.5 Abnormal microbiological findings in specimens from respiratory organs and thorax (principal) | CPT/HCPCS: 87116; 87206 ==

== ENCOUNTER 2023-04-19 11:58 | Outpatient (CLI) | payer MEDICARE, SELFPAY | END 2023-04-19 23:59 | LOC: LAB.DROPOF 11:59 | PROVIDERS: PCP Podiatrist; Visit Provider Podiatrist | DX: L60.0 Ingrowing nail (principal); M79.675 Pain in left toe(s) | CPT/HCPCS: 87102; 87206; 87220 ==

== ENCOUNTER 2023-04-24 13:34 | Outpatient (CLI) | payer MEDICARE, SELFPAY ==
--- NOTE | 2023-04-24 13:57 | CT_ITS ---
FINAL REPORT TECHNIQUE: Axial images through the abdomen and pelvis were performed without contrast.This study was performed with techniques to keep radiation doses as low as reasonably achievable, (ALARA). Individualized dose reduction techniques using automated exposure control or adjustment of mA and/or kV according to the patient's size were employed. CLINICAL HISTORY: kidney stone COMPARISON: 01/11/2022 FINDINGS: ABDOMEN: The lung bases are clear. The heart size is normal. Limited images of the liver demonstrate fatty infiltration. Patient is status postcholecystectomy. The spleen is normal. No adrenal mass is identified. The aorta is normal in caliber. There is no significant free fluid or adenopathy. There is a 2 mm nonobstructing lower pole right renal stone. There are numerous bilateral hyperdense renal masses likely due to complex cysts measuring up to 21 mm in the medial left kidney which previously measured 17 mm. Largest on the right is in the posterior lower pole measuring 13 mm, unchanged from prior exam. Bowel is unremarkable. PELVIS: The appendix is normal. There is narrowing of the mid sigmoid colon seen on image 86 with wall thickening which could be due to spasm or mass. Prostate is unremarkable. There are small bilateral inguinal hernias containing fat. The urinary bladder is unremarkable. There is no significant free fluid or adenopathy. IMPRESSION: Tiny nonobstructing right renal stone. Numerous hyperdense renal masses likely due to complex cysts. Questionable circumferential wall thickening of the sigmoid colon which may due to spasm or mass. Consider colonoscopy for further evaluation. Reviewed, Interpreted and Dictated by Mavis Mcdermott MD Transcribed by Whitley Ludwig Authenticated and [facility]
[2023-04-24 14:16] LABS: Basophils # 0.1 K/mm3 (0-0.2); Basophils % 0.8 % (0.1-2.0); Eosinophils # 0.1 K/mm3 (0.0-0.4); Hematocrit 43.7 % (42.0-52.0); Hemoglobin 14.7 g/dL (14.1-18.0); Lymphocytes # 1.3 K/mm3 (0.7-4.5); Lymphocytes % 19.8 % (10-50); Mean Corpuscular HGB Conc 33.7 g/dL (31.8-35.4); Mean Corpuscular Hemoglobin 27.6 pg (27.0-31.2); Mean Corpuscular Volume 81.9 fl (80-94); Mean Platelet Volume 7.9 fl (7.4-10.4); Monocytes # 0.5 K/mm3 (0.1-1.0); Monocytes % 7.4 % (1.7-9.3); Neutrophils # 4.7 K/mm3 (1.8-7.8); Platelet Count 199 K/mm3 (142-424); Red Blood Count 5.34 M/mm3 (4.60-6.20); White Blood Count 6.7 K/mm3 (4.8-10.8)
[2023-04-24 14:21] LABS: Alanine Aminotransferase 34 U/L (12-78); Albumin Level 4.4 g/dl (3.5-5.0); Albumin/Globulin Ratio 1.7 (1.1-1.8); Alkaline Phosphatase 70 U/L (38-126); Anion Gap 13.3 mEq/L (5-15); Aspartate Amino Transferase 42 U/L (17-59); Bilirubin,Total 0.8 mg/dl (0.2-1.3); Blood Urea Nitrogen 17 mg/dl (9-20); Calcium 9.5 mg/dl (8.4-10.2); Carbon Dioxide 23 mmol/L (22.0-30.0); Chloride 105 mmol/L (98-107); Estimated Glomerular Filt Rate 83 ml/min (>60); GFR (African American) 101 ML/MIN (>60); Globulin 2.6 g/dL (1.3-3.2); Glucose 243 mg/dl (74-100); Potassium 4.3 mmoL/L (3.5-5.1); Sodium 137 mmol/L (136-145)
== END 2023-04-24 23:59 ==
LOC: RAD 13:35
PROVIDERS: PCP Family Medicine; Visit Provider Family Medicine
DX: I10 Essential (primary) hypertension; N20.0 Calculus of kidney; M79.604 Pain in right leg; E11.9 Type 2 diabetes mellitus without complications; Z79.84 Long term (current) use of oral hypoglycemic drugs; Z79.899 Other long term (current) drug therapy
CPT/HCPCS: 36415; 74176; 80053; 85025

== ENCOUNTER 2023-05-04 10:38 | Emergency (ER) | payer MEDICARE, SELFPAY ==
[2023-05-04] VITALS (8 sets, daily range): BP systolic 117–152; BP diastolic 61–112; PULSE 65–84; RESP 16–18; TEMP 36.7; O2SAT 95–98; BMI 32.5
--- NOTE | 2023-05-04 11:17 | PC.NURSE ---
ROUNDED ON PT AT BS NO NEEDS CALL LIGHT AT BS
--- NOTE | 2023-05-04 11:21 | HMH.EDGENADL ---
Discharge Plan Disposition Patient Disposition: Home, Self-Care Prescriptions Prescriptions: New prednisone 20 mg tablet 40 mg PO DAILY 5 Days Qty: 10 0RF No Action dicyclomine 10 mg capsule 10 mg PO QIDP PRN (Reason: Stomach pain) 90 Days Qty: 270 cyclobenzaprine 5 mg tablet 5 mg PO TIDP PRN (Reason: Muscle spasms) 90 Days Qty: 90 fluticasone propionate [Flonase Allergy Relief] 50 mcg/actuation spray,suspension 1 spray intranasal DAILY Qty: 16 2RF Rx Instructions: administer into each nostril tramadol 50 mg tablet 50 mg PO BIDP PRN (Reason: pain) pioglitazone [Actos] 30 mg tablet 30 mg PO DAILY Qty: 90 3RF metformin 500 mg tablet extended release 24 hr 1,000 mg PO DAILY Qty: 180 1RF albuterol sulfate 90 mcg/actuation HFA aerosol inhaler inhalation clopidogrel 75 mg tablet See Rx Instructions .ROUTE .COMPLEX Qty: 90 3RF Dose Instruction: TAKE 1 TABLET BY MOUTH DAILY FOR PLATELET INHIBITOR Rx Instructions: TAKE 1 TABLET BY MOUTH DAILY FOR PLATELET INHIBITOR losartan 50 mg tablet See Rx Instructions .ROUTE .COMPLEX Qty: 90 3RF Dose Instruction: TAKE 1 TABLET DAILY Rx Instructions: TAKE 1 TABLET DAILY simvastatin 20 mg tablet See Rx Instructions .ROUTE .COMPLEX Qty: 90 3RF Dose Instruction: TAKE 1 TABLET DAILY FOR HIGH CHOLESTEROL Rx Instructions: TAKE 1 TABLET DAILY FOR HIGH CHOLESTEROL (DME) blood-glucose meter [OneTouch Ultra2 Meter] Misc See Rx Instructions .ROUTE .MEDSUPPLY Qty: 1 Rx Instructions: As directed (DME) OneTouch Ultra Test Strip See Rx Instructions .ROUTE .MEDSUPPLY Qty: 10 Rx Instructions: As directed (DME) lancing device Mis See Rx Instructions .ROUTE .MEDSUPPLY Qty: 1 Rx Instructions: As directed (DME) blood glucose control, normal [OneTouch Ultra Control] Solution See Rx Instructions .ROUTE .MEDSUPPLY Qty: 1 Rx Instructions: As directed (DME) Ultra Thin Lancets 31 gauge misc See Rx Instructions .ROUTE .MEDSUPPLY Qty: 100 Rx Instructions: As directed mupirocin 2 % ointment See Rx Instructions .ROUTE .COMPLEX Qty: 50 3RF Dose Instruction: APPLY TOPICALLY 3 TIMES DAILY Rx Instructions: APPLY TOPICALLY 3 TIMES DAILY nystatin 100,000 unit/gram cream See Rx Instructions .ROUTE .COMPLEX Qty: 90 2RF Dose Instruction: APPLY 1 APPLICATION TOPICALLY 3 TIMES DAILY Rx Instructions: APPLY 1 APPLICATION TOPICALLY 3 TIMES DAILY Referrals Follow up/Referrals: Columba Rodríguez APRN [Primary Care Provider] - See instructions Activity Restrictions/Add. Instructions Additional Instructions/Restrictions: Call your family doctor to establish care for this visit to the emergency department and schedule follow-up within 48 hours to ensure improvement. If you have any worsening of your condition or any other concerning signs or symptoms, return to the emergency department or your primary care doctor for further evaluation. Clinical Impressions Clinical Impression: Neuropathic pain Radiculopathy Qualifiers: Spinal region: lumbar Qualified Code(s): M54.16 - Radiculopathy, lumbar region Instructions Patient Instructions: DI for Acute Abdominal Pain Discharge ED Provider: Gildardo Ritchie General Adult HPI General Chief complaint: Abdominal Pain Stated complaint: kidney stone Time Seen by Provider: 05/04/23 10:39 Mode of Arrival: Wheelchair Source of Information: Patient Limitations: No Limitations Description of Symptoms (Recalled from ER Triage Doc. by RN): Pt states he was seen here last week and diagnosed with kidney stones. Pt states he has a follow up with Dr. Platt on the and his PCP on the . pt states the pain got so bad today he was unable to wait. pt c/o R flank pain, 10/10 and sharp in nature. History of Present Illness HPI narrative: 72-year-old male history of hypertension, hyperlipidemia, diabetes, numerous kidney stones presenting with right flank pain. Patient states that has been going on since last week. Was diagnosed with kidney stones on CT scan here [facility]. Still having persistent pain, worse today than it had been in the past. No nausea or vomiting, fevers or chills, hematuria, dysuria, or any other concerns. In his right flank, radiates forward Related Data Home Medications Medication Instructions Recorded Confirmed tramadol 50 mg tablet 50 mg PO BIDP PRN pain 08/24/17 04/24/23 dicyclomine 10 mg capsule 10 mg PO QIDP PRN Stomach pain 90 10/09/17 04/24/23 days ##270 cyclobenzaprine 5 mg tablet 5 mg PO TIDP PRN Muscle spasms 90 07/06/20 04/24/23 days ##90 albuterol sulfate 90 mcg/actuation inhalation 02/22/23 04/24/23 aerosol inhaler blood glucose control, normal #1 ea 04/24/23 04/24/23 (OneTouch Ultra Control solution) blood sugar diagnostic (OneTouch #10 ea 04/24/23 04/24/23 Ultra Test strips) blood-glucose meter (OneTouch #1 ea 04/24/23 04/24/23 Ultra2 Meter) lancets 31 gauge (Ultra Thin #100 ea 04/24/23 04/24/23 Lancets) lancing device #1 ea 04/24/23 04/24/23 Previous Rx's Medication Instructions Recorded metformin 500 mg tablet,extended 1,000 mg PO DAILY #180 tabs 11/18/22 release 24 hr pioglitazone 30 mg tablet (Actos) 30 mg PO DAILY #90 tabs 11/18/22 fluticasone propionate 50 1 spray intranasal DAILY #16 grams 12/02/22 mcg/actuation nasal spray,suspension (Flonase Allergy Relief) nystatin 100,000 unit/gram topical See Rx Instructions .Route 03/02/23 cream .COMPLEX #90 grams clopidogrel 75 mg tablet See Rx Instructions .Route 04/10/23 .COMPLEX #90 tabs losartan 50 mg tablet See Rx Instructions .Route 04/10/23 .COMPLEX #90 tabs simvastatin 20 mg tablet See Rx Instructions .Route 04/10/23 .COMPLEX #90 tabs mupirocin 2 % topical ointment See Rx Instructions .Route 04/24/23 .COMPLEX #50 grams prednisone 20 mg tablet 40 mg PO DAILY 5 days #10 tabs 05/04/23 Allergies Allergy/AdvReac Type Severity Reaction Status Date / Time Penicillins [PENICILLINS] Allergy Unknown I-ITCHING Verified 04/24/23 10:02 [facility] Disclaimer: The information contained in this section may have been updated after the patient was seen, as this information can be updated by other users. Medical History (Updated 05/04/23 @ 12:47 by Gildardo Ritchie MD) Acute bronchitis Acute febrile illness Bacterial pneumonia Bronchitis due to COVID-19 virus Cough COVID-19 virus infection Diabetes Diabetic foot ulcer Dyspnea Encounter for pre-operative cardiovascular clearance Exposure to COVID-19 virus Hematuria HHD (hypertensive heart disease) HTN (hypertension) Hypokalemia Kidney stone on right side Left against medical advice Mental status change resolved Pneumonia due to COVID-19 virus Pre-op evaluation Sepsis Severe sepsis SIRS (systemic inflammatory response syndrome) SIRS (systemic inflammatory response syndrome) Viral syndrome Social History Smoking Status: Never smoker alcohol intake: never counseling provided: none substance use type: denies use current occupational status: employed Travel in the last 8 weeks: None household members: spouse housing: house caffeine: Yes ROS Obtained: Yes All systems reviewed & no additional complaints except as documented Physical Exam General General appearance: alert and in no apparent distress Head Head exam: atraumatic and normocephalic Eye Eye exam: Present normal appearance, PERRL and EOMI ENT ENT exam: Present mucous membranes moist Neck Neck exam: Present normal inspection, full ROM and trachea midline Respiratory Respiratory exam: Absent respiratory distress, wheezes, stridor, accessory muscle use or prolonged expiratory phase Cardiovascular Cardiovascular exam: Present normal rhythm Abdominal Exam Abdominal exam: Present soft; Absent distention, tenderness, guarding, rebound or rigidity Extremities Exam Extremities exam: Absent edema Neurological Exam Neurological exam: Present alert, oriented X3, CN II-XII intact and normal gait; Absent motor sensory deficit Skin Skin exam: Present warm and dry; Absent diaphoresis or erythema Medical Decision Making Medical Records Medical records reviewed: Yes I reviewed the patient's medical records. Jevon Inquiry Pt receiving controlled substance: No Jevon was queried for this patient: No Vital Signs: 05/04/23 10:59 05/04/23 12:05 05/04/23 12:11 Temperature 98.1 F Temperature Source Oral Pulse Rate 74 73 Pulse Rate [Left] 84 Respiratory Rate 16 Blood Pressure 124/76 119/71 Blood Pressure [Right Arm] 117/61 Blood Pressure Mean 100 Blood Pressure Mean [Right Arm] 79 Blood Pressure Source [Right Arm] Automatic Cuff Blood Pressure Position [Right Arm] Sitting 02 Sat by Pulse Oximetry 98 95 95 Oxygen Delivery Method Room Air Room Air Lab Data Lab results reviewed: Yes I reviewed the patient's lab results. Lab Results 05/04/23 10:45: Urine Color Yellow, Urine Appearance Clear, Urine pH 5.5, Ur Specific [place] >= 1.030, Urine Protein 1+, Urine Glucose (UA) Negative, Urine Ketones Negative, Urine Blood Negative, Urine Nitrate Negative, Urine Bilirubin Negative, Urine Urobilinogen 0.2, Ur Leukocyte Esterase Negative, Urine RBC None, Urine WBC None, Ur Squamous Epith Cells Occasional, Urine Bacteria Trace 05/04/23 11:12: WBC 4.9, RBC 5.50, Hgb 14.6, Hct 45.0, MCV 81.8, MCH 26.6 L, MCHC 32.5, RDW 14.7, Plt Count 236, MPV 7.4, Neut % (Auto) 70.4, Lymph % (Auto) 21.1, Gove % (Auto) 6.4, Eos % (Auto) 2.0, Baso % (Auto) 0.1, Neut # (Auto) 3.4, Lymph # (Auto) 1.0, Gove # (Auto) 0.3, Eos # (Auto) 0.1, Baso # (Auto) 0.0, Sodium 136, Potassium 4.6, Chloride 102, Carbon Dioxide 27, Anion Gap 11.6, BUN 21 H, Creatinine 0.90, Estimated Creat Clear 97, Estimated GFR 83, Est GFR ( Amer) 101, Glucose 196 H, Calcium 9.3, Total Bilirubin 1.2, AST 43, ALT 36, Alkaline Phosphatase 76, Total Protein 7.7, Albumin 4.5, Globulin 3.2, Albumin/Globulin Ratio 1.4 05/04/23 11:12 05/04/23 11:12 Orders (Tests/Meds): ED MEDICATIONS Generic Name Dose Route Start Last Admin Trade Name Freq PRN Reason Stop Dose Admin Dexamethasone Sodium Phosphate 10 mg 05/04/23 12:45 Dexamethasone 4mg/Ml 1ml Vial IV 05/04/23 12:46 ONCE ONE Discontinued Medications Generic Name Dose Route Start Last Admin Trade Name Freq PRN Reason Stop Dose Admin Ketorolac Tromethamine 15 mg 05/04/23 11:16 05/04/23 11:27 Ketorolac 30mg/Ml Vial IV 05/04/23 11:17 15 mg ONCE ONE Administration ORDERS Category Date Time Status POCUS Point of Care (ER Only) Stat Exams 05/04/23 11:17 Completed CBC w/Auto Diff [Complete Blood Count Auto Diff] Stat Lab 05/04/23 11:12 Completed CMP [Comprehensive Metabolic Panel] Stat Lab 05/04/23 11:12 Completed UA [Urinalysis and Microscopic] Stat Lab 05/04/23 10:45 Completed Medical Decision Narrative: 72-year-old male history of hypertension, hyperlipidemia, diabetes, numerous kidney stones presenting with right flank pain. Patient states that has been going on since last week. Was diagnosed with kidney stones on CT scan here [facility]. Still having persistent pain, worse today than it had been in the past. No nausea or vomiting, fevers or chills, hematuria, dysuria, or any other concerns. In his right flank, radiates forward. On arrival, patient hemodynamically stable, alert, oriented x4, appropriate, GCS 15, moving all extremities spontaneously, pupils equal and reactive to light. Full physical exam performed and significant for well-appearing male no acute distress. Right flank/SI pain. No outward signs of injury. No abdominal tenderness. Differential includes nephrolithiasis, urinary tract infection, Jose, appendicitis, diverticulitis, malignancy, aortic pathology, among others. Patient was given Toradol IV for symptomatic management and correction of underlying abnormalities. Workup independently interpreted and significant for nonactionable CBC or chemistry. Kidney function normal. UA without concern for UTI. CT scan independently interpreted and reviewed. Patient has intrarenal stone, no evidence of ureterolithiasis. No obvious other explanation for patient's pain. see radiology read for full review of final results. Right renal ultrasound unremarkable. On reevaluation, patient continuing to have intermittent pains. Worse with laying down and position changes, better standing up and sitting. Given steroid for likely radiculopathic pain given patient presentation, workup, history, this most likely represents neuropathic pain. Because patient at baseline without signs or symptoms of clinical decompensation, deemed appropriate for discharge. Results were relayed to patient who voiced understanding and were agreeable to outpatient management and follow up. At the time of discharge the patient was hemodynamically stable, tolerating PO, and mobilizing appropriately. Critical Care Critical Care Time Critical Care Time: No
[2023-05-04 11:26] LABS: Microscopic, Urine URINE MICROSCOPIC (MICROSCOPIC)
[2023-05-04] MEDS: KETOROLAC 30MG/ML VIAL 15 MG IV (11:27)
[2023-05-04 11:28] LABS: Chloride 102 mmol/L (98-107); Potassium 4.6 mmoL/L (3.5-5.1); Sodium 136 mmol/L (136-145)
[2023-05-04 11:31] LABS: Alanine Aminotransferase 36 U/L (12-78); Albumin Level 4.5 g/dl (3.5-5.0); Albumin/Globulin Ratio 1.4 (1.1-1.8); Alkaline Phosphatase 76 U/L (38-126); Anion Gap 11.6 mEq/L (5-15); Aspartate Amino Transferase 43 U/L (17-59); Bilirubin,Total 1.2 mg/dl (0.2-1.3); Carbon Dioxide 27 mmol/L (22.0-30.0); Globulin 3.2 g/dL (1.3-3.2); Total Protein,Serum 7.7 g/dl (6.3-8.2)
[2023-05-04 11:32] LABS: Blood Urea Nitrogen 21 mg/dl (9-20); Calcium 9.3 mg/dl (8.4-10.2); Creatinine Clearance Estimated 97 mL/min (50-200); Estimated Glomerular Filt Rate 83 ml/min (>60); GFR (African American) 101 ML/MIN (>60); Glucose 196 mg/dl (74-100)
[2023-05-04 11:44] LABS: Basophils % 0.1 % (0.1-2.0); Eosinophils # 0.1 K/mm3 (0.0-0.4); Hemoglobin 14.6 g/dL (14.1-18.0); Lymphocytes % 21.1 % (10-50); Mean Corpuscular HGB Conc 32.5 g/dL (31.8-35.4); Mean Corpuscular Hemoglobin 26.6 pg (27.0-31.2); Mean Corpuscular Volume 81.8 fl (80-94); Mean Platelet Volume 7.4 fl (7.4-10.4); Monocytes # 0.3 K/mm3 (0.1-1.0); Monocytes % 6.4 % (1.7-9.3); Neutrophils # 3.4 K/mm3 (1.8-7.8); Neutrophils % 70.4 % (37.0-80.0); Platelet Count 236 K/mm3 (142-424); Red Cell Distribution Width 14.7 % (11.5-17.5); White Blood Count 4.9 K/mm3 (4.8-10.8)
[2023-05-04 11:51] LABS: Appearance,Urine CLEAR (Clear); Bilirubin,Urine Negative (Negative); Blood, Urine Negative (Negative); Color,Urine YELLOW (Yellow); Glucose,Urine (UA) Negative (Negative); Ketones,Urine Negative (Negative); Leukocyte Esterase,Urine Negative (Negative); Nitrate,Urine Negative (Negative); PH,Urine 5.5 (5.0-8.5); Protein,Urine 1+ (Negative); Specific Gravity, Urine >= 1.030 (1.005-1.030); Urobilinogen,Urine 0.2 EU/dl (0.2)
[2023-05-04 12:03] LABS: Bacteria,Urine Trace /lpf; Squamous Epithelial Cell,Urine Occasional #/hpf (0-5)
[2023-05-04] MEDS: DEXAMETHASONE 4MG/ML 1ML VIAL 10 MG IV (12:52)
== END 2023-05-04 13:01 | disposition home or self-care (01) ==
PROVIDERS: Emergency Provider Emergency Medicine; PCP Family Medicine
DX: N20.0 Calculus of kidney (principal); R10.9 Unspecified abdominal pain; M54.16 Radiculopathy, lumbar region; G62.9 Polyneuropathy, unspecified; I11.9 Hypertensive heart disease without heart failure; E78.5 Hyperlipidemia, unspecified; E11.9 Type 2 diabetes mellitus without complications
CPT/HCPCS: 80053; 81001; 85025; 96374; 96375; 99285

== ENCOUNTER 2023-05-12 12:07 | Emergency (ER) | payer MEDICARE, SELFPAY ==
[2023-05-12 12:18] VITALS: BP 139/72; PULSE 85; RESP 20; TEMP 36.6; O2SAT 98; BMI 32.5
--- NOTE | 2023-05-12 12:18 | XR_ITS ---
FINAL REPORT CLINICAL HISTORY: soa COMPARISON: 11/04/2022 FINDINGS: SINGLE-VIEW CHEST The heart size is normal. The mediastinum is normal. There are mild bibasilar opacities, favor atelectasis. There is no pneumothorax. Postoperative changes are seen in the right humeral head. IMPRESSION: Favor bibasilar atelectasis. Reviewed, Interpreted and Dictated by Kana Cabrera III, MD Transcribed by Shahla Iglesias Authenticated and [facility]
--- NOTE | 2023-05-12 12:19 | ED_ITS ---
Discharge Plan Disposition Patient Disposition: Left Against Medical Advice Condition: Undetermined Prescriptions Prescriptions: No Action dicyclomine 10 mg capsule 10 mg PO QIDP PRN (Reason: Stomach pain) 90 Days Qty: 270 cyclobenzaprine 5 mg tablet 5 mg PO TIDP PRN (Reason: Muscle spasms) 90 Days Qty: 90 fluticasone propionate [Flonase Allergy Relief] 50 mcg/actuation spray,suspension 1 spray intranasal DAILY Qty: 16 2RF Rx Instructions: administer into each nostril tramadol 50 mg tablet 50 mg PO BIDP PRN (Reason: pain) pioglitazone [Actos] 30 mg tablet 30 mg PO DAILY Qty: 90 3RF metformin 500 mg tablet extended release 24 hr 1,000 mg PO DAILY Qty: 180 1RF albuterol sulfate 90 mcg/actuation HFA aerosol inhaler inhalation clopidogrel 75 mg tablet See Rx Instructions .ROUTE .COMPLEX Qty: 90 3RF Dose Instruction: TAKE 1 TABLET BY MOUTH DAILY FOR PLATELET INHIBITOR Rx Instructions: TAKE 1 TABLET BY MOUTH DAILY FOR PLATELET INHIBITOR losartan 50 mg tablet See Rx Instructions .ROUTE .COMPLEX Qty: 90 3RF Dose Instruction: TAKE 1 TABLET DAILY Rx Instructions: TAKE 1 TABLET DAILY simvastatin 20 mg tablet See Rx Instructions .ROUTE .COMPLEX Qty: 90 3RF Dose Instruction: TAKE 1 TABLET DAILY FOR HIGH CHOLESTEROL Rx Instructions: TAKE 1 TABLET DAILY FOR HIGH CHOLESTEROL (DME) blood-glucose meter [OneTouch Ultra2 Meter] Misc See Rx Instructions .ROUTE .MEDSUPPLY Qty: 1 Rx Instructions: As directed (DME) OneTouch Ultra Test Strip See Rx Instructions .ROUTE .MEDSUPPLY Qty: 10 Rx Instructions: As directed ([facility] [place]) lancing device Misc See Rx Instructions .ROUTE .MEDSUPPLY Qty: 1 Rx Instructions: As directed (DME) blood glucose control, normal [OneTouch Ultra Control] Solution See Rx Instructions .ROUTE .MEDSUPPLY Qty: 1 Rx Instructions: As directed ([facility] [place]) Ultra Thin Lancets 31 gauge misc See Rx Instructions .ROUTE .MEDSUPPLY Qty: 100 Rx Instructions: As directed nystatin 100,000 unit/gram cream See Rx Instructions .ROUTE .COMPLEX Qty: 90 2RF Dose Instruction: APPLY 1 APPLICATION TOPICALLY 3 TIMES DAILY Rx Instructions: APPLY 1 APPLICATION TOPICALLY 3 TIMES DAILY mupirocin 2 % ointment 1 applic topical TID Qty: 50 12RF prednisone 20 mg tablet 40 mg PO DAILY 5 Days Qty: 10 0RF Referrals Follow up/Referrals: Columba Rodríguez APRN [Primary Care Provider] - See instructions Clinical Impressions Clinical Impression: Left against medical advice Discharge ED Provider: Kristie Romo HPI General Chief Complaint: Shortness of Breath/Dyspnea Stated Complaint: soa, anxiety Time Seen by Provider: 05/12/23 12:18 History of Present Illness HPI narrative: This 72-year-old male with a history of cardiac stents, bilateral lower extremity lymphedema, previous kidney stone presents to the ER with concerns of shortness of breath from his primary care physician's office. Patient states he recently took a 5-day course of prednisone and had developed a rash on his face which sent him to the primary care physician. He states he also was having some shortness of breath. He admits that the swelling in his legs is no worse than normal. He states that the rash on his face is actually improving but his PCP was concerned about the shortness of breath and sent him to the ER for further evaluation. Patient states his blood sugar was extremely uncontrolled while he was on prednisone but it was better today, however he still feels shaky. Related Data Home Medications Medication Instructions Recorded Confirmed tramadol 50 mg tablet 50 mg PO BIDP PRN pain 08/24/17 05/08/23 dicyclomine 10 mg capsule 10 mg PO QIDP PRN Stomach pain 90 10/09/17 05/08/23 days ##270 cyclobenzaprine 5 mg tablet 5 mg PO TIDP PRN Muscle spasms 90 07/06/20 05/08/23 days ##90 albuterol sulfate 90 mcg/actuation inhalation 02/22/23 05/08/23 aerosol inhaler blood glucose control, normal #1 ea 04/24/23 05/08/23 (OneTouch Ultra Control solution) blood sugar diagnostic (OneTouch #10 ea 04/24/23 05/08/23 Ultra Test strips) blood-glucose meter (OneTouch #1 ea 04/24/23 05/08/23 Ultra2 Meter) lancets 31 gauge (Ultra Thin #100 ea 04/24/23 05/08/23 Lancets) lancing device #1 ea 04/24/23 05/08/23 Previous Rx's Medication Instructions Recorded metformin 500 mg tablet,extended 1,000 mg PO DAILY #180 tabs 11/18/22 release 24 hr pioglitazone 30 mg tablet (Actos) 30 mg PO DAILY #90 tabs 11/18/22 fluticasone propionate 50 1 spray intranasal DAILY #16 grams 12/02/22 mcg/actuation nasal spray,suspension (Flonase Allergy Relief) nystatin 100,000 unit/gram topical See Rx Instructions .Route 03/02/23 cream .COMPLEX #90 grams clopidogrel 75 mg tablet See Rx Instructions .Route 04/10/23 .COMPLEX #90 tabs losartan 50 mg tablet See Rx Instructions .Route 04/10/23 .COMPLEX #90 tabs simvastatin 20 mg tablet See Rx Instructions .Route 04/10/23 .COMPLEX #90 tabs prednisone 20 mg tablet 40 mg PO DAILY 5 days #10 tabs 05/04/23 mupirocin 2 % topical ointment 1 applic topical TID #50 grams 05/10/23 Allergies Allergy/AdvReac Type Severity Reaction Status Date / Time Penicillins [PENICILLINS] Allergy Unknown I-ITCHING Verified 05/08/23 11:25 [facility] Disclaimer: The information contained in this section may have been updated after the patient was seen, as this information can be updated by other users. Medical History (Updated 05/12/23 @ 14:07 by Whitney Prakash RN) Acute bacterial bronchitis Acute bronchitis Acute febrile illness Bacterial pneumonia Bronchitis due to COVID-19 virus Callus of foot Cellulitis Cough COVID-19 virus infection Diabetes Diabetic foot ulcer Dyspnea Encounter for pre-operative cardiovascular clearance Exposure to COVID-19 virus Hematuria HHD (hypertensive heart disease) HTN (hypertension) Hypokalemia Ingrown toenail of right foot Kidney stone on right side Left against medical advice Mental status change resolved Pneumonia due to COVID-19 virus Pre-op evaluation Sepsis Severe sepsis SIRS (systemic inflammatory response syndrome) SIRS (systemic inflammatory response syndrome) Splinter of toe of left foot Viral syndrome Social History Smoking Status: Never smoker alcohol intake: never counseling provided: none substance use type: denies use current occupational status: employed Travel in the last 8 weeks: None household members: spouse housing: house caffeine: Yes ROS Obtained: Yes All systems reviewed & no additional complaints except as documented Constitutional Constitutional: Denies chills, Denies fever(s), Denies headache(s) and Denies weakness Comments: Shakiness Eyes Eyes: Denies change in vision ENT Ears, Nose, Mouth, and Throat: Denies dizziness, Denies headache(s), Denies nasal congestion and Denies sore throat Cardiovascular Cardiovascular: Denies chest pain, Reports dyspnea and Denies leg edema Respiratory Respiratory: Denies cough and Reports dyspnea Gastrointestinal Gastrointestingal: Denies constipation, diarrhea, nausea or vomiting Genitourinary Male Genitourinary: Denies difficulty urinating Musculoskeletal Musculoskeletal: Denies arthralgias, Denies myalgias, Denies numbness and Denies tingling Integumentary/Breasts Skin/Breast: Denies change in pigmentation Neurologic Neurologic: Denies dizziness, Denies headache(s), Denies numbness, Denies tingling and Denies weakness Physical Exam General General appearance: alert and in no apparent distress Head Head exam: atraumatic and normocephalic Eye Eye exam: Present PERRL and EOMI ENT ENT exam: Present mucous membranes moist Neck Neck exam: Present normal inspection and full ROM Chest Chest inspection: Present symmetric chest wall rise Respiratory Respiratory exam: Present normal lung sounds bilaterally; Absent respiratory distress, wheezes or stridor Cardiovascular Cardiovascular exam: Present regular rate and normal rhythm Abdominal Exam Abdominal exam: Present soft; Absent distention, tenderness, guarding or rebound Extremities Exam Extremities exam: Present full ROM and edema (Bilateral lower extremity edema, right greater than left, at baseline per patient) Neurological Exam Neurological exam: Present alert and oriented X3; Absent motor sensory deficit Psychiatric Psychiatric exam: Present normal affect and normal mood Skin Skin exam: Present warm, dry and rash (Improving maculopapular rash on the face with erythematous lesions that peter, no purpuric, no vesicles, blisters, or scabbing) HEART Score HEART Score HEART Score assessment performed?: Yes History (anamnesis): Moderately suspicious ECG: Non-specific disturbance Age: >65 years Risk factors: 3 or more risk factors Troponin: </= normal limit HEART Score: 6 Critical Care Critical Care Time Critical Care Time: No Medical Decision Making Jevon Inquiry Pt receiving controlled substance: No Vital Signs Vital Signs: 05/12/23 12:18 05/12/23 13:00 05/12/23 14:05 Temperature 97.9 F 0 F L Temperature Source Oral Pulse Rate 82 0 L Pulse Rate [Left] 85 Respiratory Rate 20 0 L Blood Pressure 116/69 0/0 L Blood Pressure [Right Arm] 139/72 Blood Pressure Mean 94 Blood Pressure Mean [Right Arm] 94 Blood Pressure Source [Right Arm] Automatic Cuff Blood Pressure Position [Right Arm] Sitting 02 Sat by Pulse Oximetry 98 96 Lab Data Labs: Lab Results 05/12/23 12:25: WBC 7.7, RBC 5.50, Hgb 15.4, Hct 45.8, MCV 83.3, MCH 27.9, MCHC 33.6, RDW 14.6, Plt Count 205, MPV 8.1, Neut % (Auto) 75.3, Lymph % (Auto) 15.6, Turner % (Auto) 7.8, Eos % (Auto) 1.0, Baso % (Auto) 0.2, Neut # (Auto) 5.8, Lymph # (Auto) 1.2, Turner # (Auto) 0.6, Eos # (Auto) 0.1, Baso # (Auto) 0.0, Sodium 134 L, Potassium 3.6, Chloride 103, Carbon Dioxide 28, Anion Gap 6.6, BUN 28 H, Creatinine 1.00, Estimated Creat Clear 97, Estimated GFR 74, Est GFR ( Amer) 89, Glucose 156 H, Calcium 9.0, Total Bilirubin 1.6 H, AST 40, ALT 39, Alkaline Phosphatase 95, Troponin I < 0.01, NT-Pro-B Natriuret Pep 36.8, Total Protein 7.2, Albumin 4.0, Globulin 3.2, Albumin/Globulin Ratio 1.3 05/12/23 12:25 05/12/23 12:25 Response Orders (Tests/Meds): ED MEDICATIONS Discontinued Medications Generic Name Dose Route Start Last Admin Trade Name Freq PRN Reason Stop Dose Admin Sodium Chloride 10 ml 05/12/23 12:27 Sodium Chloride 0.9% 10ml Flush Syringe IV 06/11/23 12:26 NEEDED PRN Maintain IV Site ORDERS Category Date Time Status CXR --portable [XR chest portable] Stat Exams 05/12/23 12:18 Completed BNP [Brain Natriuretic Peptide] Stat Lab 05/12/23 12:25 Completed CBC w/Auto Diff [Complete Blood Count Auto Diff] Stat Lab 05/12/23 12:25 Completed CMP [Comprehensive Metabolic Panel] Stat Lab 05/12/23 12:25 Completed Trop I [Troponin I] Stat Lab 05/12/23 12:25 Completed ECG initial Alexisson Stat Y 05/12/23 12:32 Completed MDM Narrative Medical Decision Narrative: In summary, this 72year old male presents to the emergency department today with shakiness and shortness of breath after being evaluated by his PCP for concerns of rash. On initial evaluation patient is hemodynamically stable, afebrile, cardiopulmonary exam is reassuring, bilateral lower extremity swelling from lymphedema is at baseline, rash on the patient's face is improved compared to pictures from yesterday which his showed me. Comorbidities of current condition include history of stents, diabetes which increase patient's overall m orbidity. Differential diagnosis includes but is not limited to ACS, CHF, dermatitis, pneumonia, considered PE however patient [], . Based on these concerns, I ordered []. ECG personally interpreted demonstrates normal sinus rhythm, rate 79, no interval abnormalities, normal axis, no STEMI. Labs personally reviewed demonstrate no leukocytosis, no anemia, CMP with trace hyponatremia, nonactionable at this time, patient does have prerenal azotemia but is tolerating oral intake, he does not require IV fluids. Mild hyperbilirubinemia with total bilirubin 1.6, nonspecific at this time, initial troponin undetectably low at less than 0.01, repeat troponin pending. BNP 36.8. Chest x-ray personally interpreted did not appreciate any lobar infiltrate, effusion, or other gross abnormality on my personal interpretation. Radiology read was pending at the time of patient wishing to leave AMA. Patient suddenly wished to leave AMA. He stated his pain was better but he was upset that I had not given him any medication for his pain. I told the patient I wanted to have serial troponins given the onset of his shortness of breath today, and I explained the risks of leaving. Patient was able to explain back to me their condition and the risks of leaving up to and including wosening of condition, severe life altering disability, or . Patient was able to provide reason for their decision stating he felt better and would come back if it worsened and he had other things to do today and clearly expressed their decision. Patient has capacity to make this decision and left AGAINST MEDICAL ADVICE.
--- NOTE | 2023-05-12 12:32 | ECG_ITS ---
APPROVED REPORT Exam: Resting ECG HR:79 bpm ECG Measurements Heart Rate 79 AXES AZ 132 P 55 QRSd 90 QRS 55 QT 362 T 64 QTc 397 Conclusion SINUS RHYTHM NORMAL ECG UNCONFIRMED REPORT Electronically signed by : Walker Hill MD 05/13/2023 08:18:14
[2023-05-12 12:35] LABS: Basophils % 0.2 % (0.1-2.0); Eosinophils # 0.1 K/mm3 (0.0-0.4); Hematocrit 45.8 % (42.0-52.0); Hemoglobin 15.4 g/dL (14.1-18.0); Lymphocytes # 1.2 K/mm3 (0.7-4.5); Lymphocytes % 15.6 % (10-50); Mean Corpuscular HGB Conc 33.6 g/dL (31.8-35.4); Mean Corpuscular Hemoglobin 27.9 pg (27.0-31.2); Mean Corpuscular Volume 83.3 fl (80-94); Mean Platelet Volume 8.1 fl (7.4-10.4); Monocytes # 0.6 K/mm3 (0.1-1.0); Monocytes % 7.8 % (1.7-9.3); Neutrophils # 5.8 K/mm3 (1.8-7.8); Neutrophils % 75.3 % (37.0-80.0); Platelet Count 205 K/mm3 (142-424); Red Cell Distribution Width 14.6 % (11.5-17.5); White Blood Count 7.7 K/mm3 (4.8-10.8)
[2023-05-12 12:45] LABS: Chloride 103 mmol/L (98-107); Potassium 3.6 mmoL/L (3.5-5.1); Sodium 134 mmol/L (136-145)
[2023-05-12 12:48] LABS: Alanine Aminotransferase 39 U/L (12-78); Albumin/Globulin Ratio 1.3 (1.1-1.8); Alkaline Phosphatase 95 U/L (38-126); Anion Gap 6.6 mEq/L (5-15); Aspartate Amino Transferase 40 U/L (17-59); Bilirubin,Total 1.6 mg/dl (0.2-1.3); Blood Urea Nitrogen 28 mg/dl (9-20); Carbon Dioxide 28 mmol/L (22.0-30.0); Creatinine Clearance Estimated 97 mL/min (50-200); Estimated Glomerular Filt Rate 74 ml/min (>60); GFR (African American) 89 ML/MIN (>60); Globulin 3.2 g/dL (1.3-3.2); Glucose 156 mg/dl (74-100); Total Protein,Serum 7.2 g/dl (6.3-8.2)
[2023-05-12 12:58] LABS: NT Pro Brain Natriuretic Pep. 36.8 pg/mL (0-125)
[2023-05-12 13:00] VITALS: BP 116/69; PULSE 82; O2SAT 96
[2023-05-12 13:07] LABS: Troponin I < 0.01 ng/ml (0.00-0.034)
--- NOTE | 2023-05-12 14:00 | PC.NURSE ---
Pt reports that his symptoms have resolved and was feeling better at the moment. Dr. Romo at bedside and explained the risks of leaving and the importance of a second trop level. He stated i just feel like im wasting my time here because i feel fine now Dr. Romo and this nurse advised him to please return if his symptoms return of worsen. pt agreed and had no complaints at this time.
[2023-05-12 14:05] VITALS: BP 0/0; PULSE 0; RESP 0; TEMP -17.7; TEMP 0
== END 2023-05-12 14:07 | disposition left against medical advice (07) ==
LOC: ER 12:39
PROVIDERS: Emergency Provider Emergency Medicine; PCP Family Medicine
DX: R06.02 Shortness of breath (principal); E11.9 Type 2 diabetes mellitus without complications; I10 Essential (primary) hypertension; E78.5 Hyperlipidemia, unspecified; Z79.84 Long term (current) use of oral hypoglycemic drugs
CPT/HCPCS: 71045; 80053; 83880; 84484; 85025; 93005; 99284

== ENCOUNTER → 2023-05-15 08:52 | Outpatient (POV) | payer MEDICARE, SELFPAY ==
--- NOTE | 2023-05-15 09:07 | A.OFFVIS_ITS ---
HPI Data of Consult Patient: new to practice Consult date: 05/15/23 Requesting Physician: Griselda Oconnor APRN Primary Care Provider: Columba Rodríguez APRN Consult Narrative History of present illness: Mr. Alford is a 72 year old male who presents today as a new patient. He is a referral from [facility]. Today he rates his pain a 6 out of 10. He does describe his pain as a aching, stiff sensation that runs all along his low back primarily around his right hip. He does state that he has some along the left side however it is nothing like his right side. Patient states this been going on over the last month unrelated to any specific injury or trauma. Patient states that he did initially feel like it might be kidney stones because it was causing trouble walking. States the pain does interfere with his ability perform activities of daily living such as cooking and cleaning. Patient states that it typically seem to be aggravated with certain positioning or prolonged walking and standing. He states that rest would sometimes help and that he did use [id number] Tylenol and ibuprofen along with heat and ice and topicals however this was only minimal improvement. He does state that he did get a couple of intramuscular injections from his PCP that did help however he still continues to have pain. He does state that he has diabetes and is on metformin and Actos and that his sugar did go up with the steroid injections in the past. He states his last A1c was around 8.5 however prior it was around 7 something. Patient states he has been remodeling his home and knows he has not been eating properly. Patient does have a history of heart related issues and is on blood thinner daily. Patient is currently managed with tramadol 50 mg 4 times a day from an outside provider. His Jevon has been reviewed and is appropriate. CC: Griselda Oconnor APRN [facility] Disclaimer: The information contained in this section may have been updated after the patient was seen, as this information can be updated by other users. Medical History (Updated 05/15/23 @ 09:37 by Griselda Oconnor APRN) Acute bacterial bronchitis Acute bronchitis Acute febrile illness Bacterial pneumonia Bronchitis due to COVID-19 virus Callus of foot Cellulitis Cough COVID-19 virus infection Diabetes Diabetic foot ulcer Dyspnea Encounter for pre-operative cardiovascular clearance Exposure to COVID-19 virus Hematuria HHD (hypertensive heart disease) HTN (hypertension) Hypokalemia Ingrown toenail of right foot Kidney stone on right side Left against medical advice Mental status change resolved Pneumonia due to COVID-19 virus Pre-op evaluation Sepsis Severe sepsis SIRS (systemic inflammatory response syndrome) SIRS (systemic inflammatory response syndrome) Splinter of toe of left foot Viral syndrome Surgical History (Updated 05/15/23 @ 09:12 by Anaid Maldonado RN) Hx of total knee arthroplasty Family History (Updated 05/15/23 @ 09:11 by Anaid Maldonado RN) Other No significant family history Social History Smoking Status: Never smoker alcohol intake: never counseling provided: none substance use type: denies use current occupational status: retired Travel in the last 8 weeks: None household members: spouse housing: house caffeine: Yes Review of Systems Review of Systems Review of systems:: pertinent systems reviewed and negative unless documented below Review of systems (narrative): Review of Systems: General: No recent weight changes, no fever, no sleep disturbances Respiratory: No cough, no shortness of air, no recurring pulmonary infections Cardiovascular/peripheral vascular: No chest pain, no palpitations, no edema, no shortness of breath Gastrointestinal: No new onset incontinence, normal bowel movements reported Genitourinary: No new onset incontinence Musculoskeletal: Low back pain, right hip pain Psychiatric: [Normal mood/affect] Neurological: [Denies weakness in extremities], [denies balance issues] Meds Home Medications and Allergies Home Medications Medication Instructions Recorded Confirmed Type tramadol 50 mg tablet 50 mg PO BIDP PRN pain 08/24/17 05/15/23 History dicyclomine 10 mg capsule 10 mg PO QIDP PRN Stomach pain 90 10/09/17 05/15/23 History days ##270 cyclobenzaprine 5 mg tablet 5 mg PO TIDP PRN Muscle spasms 90 07/06/20 05/15/23 History days ##90 metformin 500 mg tablet,extended 1,000 mg PO DAILY #180 tabs 11/18/22 05/15/23 Rx release 24 hr pioglitazone 30 mg tablet (Actos) 30 mg PO DAILY #90 tabs 11/18/22 05/15/23 Rx fluticasone propionate 50 1 spray intranasal DAILY #16 grams 12/02/22 05/15/23 Rx mcg/actuation nasal spray,suspension (Flonase Allergy Relief) albuterol sulfate 90 mcg/actuation 2 puff inhalation BIDP PRN SOB 02/22/23 05/15/23 History aerosol inhaler nystatin 100,000 unit/gram topical See Rx Instructions .Route 03/02/23 05/15/23 Rx cream .COMPLEX #90 grams clopidogrel 75 mg tablet See Rx Instructions .Route 04/10/23 05/15/23 Rx .COMPLEX #90 tabs losartan 50 mg tablet See Rx Instructions .Route 04/10/23 05/15/23 Rx .COMPLEX #90 tabs simvastatin 20 mg tablet See Rx Instructions .Route 04/10/23 05/15/23 Rx .COMPLEX #90 tabs blood glucose control, normal #1 ea 04/24/23 05/08/23 History (OneTouch Ultra Control solution) blood sugar diagnostic (OneTouch #10 ea 04/24/23 05/08/23 History Ultra Test strips) blood-glucose meter (OneTouch #1 ea 04/24/23 05/08/23 History Ultra2 Meter) lancets 31 gauge (Ultra Thin #100 ea 04/24/23 05/08/23 History Lancets) lancing device #1 ea 04/24/23 05/08/23 History prednisone 20 mg tablet 40 mg PO DAILY 5 days #10 tabs 05/04/23 05/15/23 Rx mupirocin 2 % topical ointment 1 applic topical TID #50 grams 05/10/23 05/15/23 Rx New Prescriptions to Start Prescriptions: Allergies Allergy/AdvReac Type Severity Reaction Status Date / Time Penicillins [PENICILLINS] Allergy Unknown I-ITCHING Verified 05/08/23 11:25 Objective Narrative: Physical Exam: General: Alert and oriented x3, no acute distress, pleasant and cooperative Lungs: Respirations even and unlabored, symmetrical chest expansion Eyes: PERRL Musculoskeletal: Flexion and extension of lumbar [spine] somewhat guarded secondary to pain, [antalgic gait noted] point tenderness along right SI with positive right Clinton's, Joyce's, Gaenslen's, compression and distraction exam Neurological: Speech clear, no gross sensory deficit Assessment and Plan *Assessment and plan (1) Low back pain: Status: Acute Qualifiers: Chronicity: acute Back pain laterality: right Sciatica presence: with sciatica Sciatica laterality: sciatica of right side Qualified Code(s): M54.41 - Lumbago with sciatica, right side Category: Medical Code(s): M54.50 - Low back pain, unspecified (2) Sacroiliitis: Status: Acute Category: Medical Code(s): M46.1 - Sacroiliitis, not elsewhere classified Plan Patient is experiencing worsening pain in the his low back and right hip with limited range of motion. Patient did have point tenderness along his right SI and a positive right Clinton's, Joyce's, Gaenslen's, compression and distraction exam. I have discussed with the patient that he may benefit from a right SI injection. Risk and benefits were discussed with patient and he would like to proceed forward with this plan of care. I have counseled the patient to continue to take his diabetes medication as scheduled and that the day of this injection he is to check his sugar before he leaves home and that if it is close to 300 or above he will be rescheduled. I will also go ahead and order x-ray imaging of his bilateral SI joints. Patient will be scheduled for a right SI injection under fluoroscopy. Patient has been instructed to contact the clinic with any concerns before the next appointment. Dr. Johnson has reviewed this note and agrees with this plan of care. This note was dictated using voice recognition software and make contain errors or omissions.
[2023-05-15 09:10] VITALS: BP 132/60; PULSE 73; RESP 20; O2SAT 96; BMI 32.5
== END ==
LOC: SC.PAIN 08:53
PROVIDERS: PCP Family Medicine; Visit Provider Nurse Practitioner Family
DX: M54.41 Lumbago with sciatica, right side (principal); M46.1 Sacroiliitis, not elsewhere classified
CPT/HCPCS: 99202; G0463

== ENCOUNTER 2023-05-22 12:44 | Outpatient (CLI) | payer MEDICARE, SELFPAY ==
--- NOTE | 2023-05-22 13:09 | XR_ITS ---
FINAL REPORT CLINICAL HISTORY: SACROILITIS FINDINGS: SACROILIAC JOINTS 3 views were obtained. There is no acute fracture or dislocation. There is degenerative joint disease, asymmetric to the right. There is no evidence of ankylosis. Visualized joint spaces are normally aligned. Soft tissues are unremarkable. IMPRESSION: No acute bony abnormality. Reviewed, Interpreted and Dictated by Esther Mcclain MD Transcribed by Whitley Ludwig Authenticated and [facility]
[2023-05-22 14:34] LABS: Blood Urea Nitrogen 14 mg/dl (9-20); Estimated Glomerular Filt Rate 83 ml/min (>60); GFR (African American) 101 ML/MIN (>60)
[2023-05-22 15:43] LABS: Prostate Specific Ag, Diagnost 0.456 ng/ml (0.0-4.0)
== END 2023-05-22 23:59 ==
LOC: LAB 12:46
PROVIDERS: Urology; PCP Family Medicine; Visit Provider Anesthesiology
DX: N28.1 Cyst of kidney, acquired; Z12.5 Encounter for screening for malignant neoplasm of prostate; R10.9 Unspecified abdominal pain; N40.0 Benign prostatic hyperplasia without lower urinary tract symptoms; M54.50 Low back pain, unspecified; R30.0 Dysuria
CPT/HCPCS: 36415; 72202; 82565; 84153; 84520

== ENCOUNTER 2023-06-09 08:36 | Outpatient (CLI) | payer MEDICARE, SELFPAY ==
--- NOTE | 2023-06-09 08:36 | CT_ITS ---
FINAL REPORT CLINICAL HISTORY: stone COMPARISON: 04/24/2023 FINDINGS: CT OF THE ABDOMEN AND PELVIS WITH CONTRAST Axial CT images of the abdomen and pelvis were obtained after the administration of IV contrast. Coronal reformatted images were also obtained and reviewed. This study was performed with techniques to keep radiation doses as low as reasonably achievable (ALARA). Individualized dose reduction techniques using automated exposure control or adjustment of mA and/or kV according to the patient's size were employed. Abdomen: There is mild scarring at the lung bases.. The heart is normal in size. There is a 21 mm low-attenuation focus in the medial segment of the left hepatic lobe inferiorly which may represent mass or possibly focal fatty infiltration. Postcholecystectomy. The spleen is unremarkable. No adrenal mass is present. The pancreas has an unremarkable appearance. There is a less than 3 mm nonobstructing right renal stone. There are multiple bilateral renal masses that do not have imaging characteristics consistent with simple cyst but multiple hemorrhagic cysts are favored. There is no hydronephrosis. The aorta is normal in caliber. There is no free fluid or adenopathy. No abnormal fluid collection is seen. Pelvis: The appendix normal. There is wall thickening of the sigmoid colon and rectum, likely inflammatory. The urinary bladder is unremarkable. There is no evidence of mass or adenopathy. There is no evidence of bowel obstruction. There are bilateral inguinal hernias containing fat. IMPRESSION: 21 mm focus left hepatic lobe may represent mass or possibly focal fatty infiltration. Follow-up CT in 3 months or liver MRI recommended. Multiple bilateral renal masses favored hemorrhagic cysts. Likely inflammatory wall thickening of the sigmoid colon and rectum. Reviewed, Interpreted and Dictated by Kana Cabrera III, MD Transcribed by Tiara Alcantar Authenticated and [facility]
--- NOTE | 2023-06-09 08:36 | US_ITS ---
FINAL REPORT CLINICAL HISTORY: Post void residule FINDINGS: Limited sonographic images of the bladder were obtained. Bladder volume is 102 mL. Postvoid volume is 7 mL. IMPRESSION: Minimal postvoid residual. Reviewed, Interpreted and Dictated by Kana Cabrera III, MD Transcribed by Shahla Iglesias Authenticated and [facility]
[2023-06-09] MEDS: SODIUM CHLORIDE 0.9% 10ML SYR (RAD ONLY) 10 ML IV (09:28)
[2023-06-09] MEDS: IOPAMIDOL-370 (76%);100ML BOTTLE 75 ML IV (09:29)
== END 2023-06-09 23:59 ==
LOC: RAD 08:36
PROVIDERS: PCP Family Medicine; Visit Provider Urology
DX: N28.1 Cyst of kidney, acquired (principal)
CPT/HCPCS: 74177; 76857; Q9967

== ENCOUNTER 2023-06-22 16:20 | Outpatient (CLI) | payer MEDICARE, SELFPAY ==
--- NOTE | 2023-06-22 16:40 | XR_ITS ---
PROCEDURE INFORMATION: Exam: XR Right Foot Complete; Alignment Exam date and time: 06/22/2023 4:42 PM Age: 72 years old Clinical indication: Pain; Foot; Right; Additional info: Foot pain TECHNIQUE: Imaging protocol: Radiologic exam of the right foot. Views: 3 or more views. COMPARISON: CR XR FOOT WT BEARING RT 3V 05/30/2022 5:21 PM FINDINGS: Bones/joints: Normal. No acute fracture. Joint spaces are preserved. No dislocation or subluxation. Soft tissues: Soft tissue swelling of the dorsum of the right foot. Other findings: Flatfoot deformity. IMPRESSION: Soft tissue swelling of the dorsum of the right foot.
[2023-06-22 17:02] LABS: Basophils # 0.1 K/mm3 (0-0.2); Basophils % 0.8 % (0.1-2.0); Eosinophils # 0.1 K/mm3 (0.0-0.4); Eosinophils % 0.9 % (0.1-12.0); Hematocrit 41.7 % (42.0-52.0); Hemoglobin 13.9 g/dL (14.1-18.0); Lymphocytes # 1.2 K/mm3 (0.7-4.5); Lymphocytes % 17.4 % (10-50); Mean Corpuscular HGB Conc 33.3 g/dL (31.8-35.4); Mean Corpuscular Hemoglobin 28.1 pg (27.0-31.2); Mean Corpuscular Volume 84.2 fl (80-94); Monocytes # 0.5 K/mm3 (0.1-1.0); Monocytes % 6.9 % (1.7-9.3); Neutrophils # 5.1 K/mm3 (1.8-7.8); Neutrophils % 74.2 % (37.0-80.0); Platelet Count 223 K/mm3 (142-424); Red Blood Count 4.95 M/mm3 (4.60-6.20); Red Cell Distribution Width 15.1 % (11.5-17.5); White Blood Count 6.9 K/mm3 (4.8-10.8)
[2023-06-22 17:48] LABS: Alanine Aminotransferase 37 U/L (12-78); Albumin/Globulin Ratio 1.6 (1.1-1.8); Alkaline Phosphatase 82 U/L (38-126); Anion Gap 11.2 mEq/L (5-15); Aspartate Amino Transferase 43 U/L (17-59); Bilirubin,Total 1.2 mg/dl (0.2-1.3); Blood Urea Nitrogen 19 mg/dl (9-20); Calcium 9.3 mg/dl (8.4-10.2); Carbon Dioxide 24 mmol/L (22.0-30.0); Chloride 108 mmol/L (98-107); Estimated Glomerular Filt Rate 83 ml/min (>60); GFR (African American) 101 ML/MIN (>60); Globulin 2.5 g/dL (1.3-3.2); Glucose 165 mg/dl (74-100); Potassium 3.2 mmoL/L (3.5-5.1); Sodium 140 mmol/L (136-145); Total Protein,Serum 6.5 g/dl (6.3-8.2)
[2023-06-22 17:53] LABS: C-Reactive Protein 2.8 mg/L (0-4)
[2023-06-22 17:54] LABS: Erythrocyte Sedimentation Rate 22 mm/hr (0-20)
== END 2023-06-22 23:59 ==
PROVIDERS: PCP Family Medicine; Visit Provider Nurse Practitioner
DX: E11.621 Type 2 diabetes mellitus with foot ulcer (principal); M79.671 Pain in right foot; Z79.899 Other long term (current) drug therapy
CPT/HCPCS: 36415; 73630; 80053; 85025; 85651; 86140

== ENCOUNTER 2023-07-03 10:30 | Outpatient (RCR) | payer MEDICARE, SELFPAY ==
--- NOTE | 2023-06-21 16:02 | HMH.PTOPWND ---
Rehab Outpt Wound Evaluation Rehab OP Wound Evaluation Start: 06/21/23 15:45 Freq: Status: Active Protocol: Document 06/21/23 15:51 YOSEPH (Rec: 06/21/23 16:02 PHORVINEET [id number]) E-signed By Scott Gallegos, PT Subjective/History History History This is the initial PT eval for Horse Branch Alford, III - 72 yowm ho presents with chronic B LE lymphedema, R worse than L, x ~ 10 yrs. He reports he was wearing compression regularly, but they kind of wore out. He reports no c/o pain at this time, but significant tenderness to palpation in B lower legs. His edema is worse with prolonged dependent positioning and better with elevation. 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 He also reports he has a callus on his R third toe distally and is scheduled to see a chronometer adjuster about it this week. He is worried about infection in this toe and it is tender to touch. Subjective Subjective He presents with 2/4 TTP to B LE in the gaiter area. 2+ pitting edema to B lower legs. R LE with increased srythema. New diagnosis of cancer in past 12 No months? Lymphedema Eval Classification of Lymphedema Secondary Lymphedema Yes Stemmer's sign Stemmer's Sign yes Stage of Lymphedema Lymphedema stages Stage III (Non-pitting, fibrosis and sclerosis, skin changes) Skin Changes Dry Skin Yes Taut, Shiny Skin Yes Skin Folds Yes Hyperkeratosis Yes Papillomatosis Yes Redness Yes Brittle Uneven Nails Yes Discoloration of Skin Yes Other Changes Yes Affected Extremities Areas Affected by Lymphedema/Edema Right Lower Extremity,Left Lower Extremity Lower Extremity Measurements Right MTP Measurement (cm) 28.3 Heel Measurement (cm) 36.3 10 cm Proximal to Lateral Malleoli 40.8 Measurement (cm) 20 cm Proximal to Lateral Malleoli 47.4 Measurement (cm) 30 cm Proximal to Lateral Malleoli 43.8 Measurement (cm) 40 cm Proximal to Lateral Malleoli 41.4 Measurement (cm) 50 cm Proximal to Lateral Malleoli 47.1 Measurement (cm) 60 cm Proximal to Lateral Malleoli 0 Measurement (cm) Lower Extremity Measurement Total (cm) 285.1 Left MTP Measurement (cm) 27.6 Heel Measurement (cm) 35.4 10 cm Proximal to Lateral Malleoli 33.2 Measurement (cm) 20 cm Proximal to Lateral Malleoli 40.1 Measurement (cm) 30 cm Proximal to Lateral Malleoli 38.8 Measurement (cm) 40 cm Proximal to Lateral Malleoli 38.5 Measurement (cm) 50 cm Proximal to Lateral Malleoli 44.9 Measurement (cm) 60 cm Proximal to Lateral Malleoli 0 Measurement (cm) Lower Extremity Measurement Total (cm) 258.5 Manual Lymphatic Drainage Treatment Area MLD Treatment Area Right Lower Extremity,Left Lower Extremity Wound Problems/Impairments Impairments Problems/Impairmments Palpation Tenderness,Impaired Range of Motion,Impaired Strength,Impaired Endurance, Impaired Walking,Impaired Standing,Impaired Sitting, Impaired Dressing,Impaired Shower/Bathing,Impaired Household Care,Increased Edema ,Lymphedema Present,Wound Care Needs,Subjective C/O Pain, Impaired Self Care/Self Management Prognosis Rehab Potential Good Clinical Impression Consistent with Diagnosis Yes Short Term Goals Number of Weeks 4 Decreased Palpation Tenderness Yes: 1/4 B lower leg Decrease Edema Yes: 1+ pitting edema B LE Patient to Understand Lymphedema Yes Treatment and Exercises Decrease Girth Measurments by (cm) Yes: R LE total by 10 cm Fdc Goals Number of Weeks 6-8 Decreased Palpation Tenderness Yes: 0/4 B lower legs Improve Ability For Household Care Yes Decrease Edema Yes: no pitting edema B LE Decrease Lymphedema Yes: mild fibrotic edema B LE Patient to be Ind w/ HEP Yes Patient to be Ind w/ Donning/Briny Breezes Yes Compression Garments Patient to Adhere Lymphedema Precautions Yes Decrease Girth Measurments by (cm) Yes: R LE total by 25 cm Outpatient Therapy Plan of Care Treatment Plan May Include Therapeutic Exercise Including Home Yes Exercise Program Manual Therapy Techniques Yes Neuromuscular Re-education Yes Therapeutic Activities to Return to Yes Previous Functional/Work Level ADL/Self Care Education Yes Orthotics/Bracing/Splinting Yes Vasopneumatic Compression Pump Yes Manual Lymphatic Drainage Yes Wound Care Yes Eval/Re-Eval Yes Frequency Times per week 2 Duration Number of Weeks 6-8 Addendums This patient is a candidate for social No or vocational rehab? Patient/Guardian verbally acknowledges Yes understanding of treatment program and consents to further treatment? Patient/Guardian verbally acknowledges Yes understanding of diagnosis, prognosis and goals for treatment? Eval Complexity PT Charges 81782 - High Complexity PHYSICIAN CERTIFICATION: I certify the specified therapy services for Horse Branch Alford III are required, authorized, and reviewed every 30 days.
== END 2023-07-03 10:35 | disposition home or self-care (01) ==
LOC: PT 10:30
PROVIDERS: Visit Provider Family Medicine
DX: I89.0 Lymphedema, not elsewhere classified (principal)
CPT/HCPCS: 97163

== ENCOUNTER 2023-07-21 09:59 | Day surgery (SDC) | payer MEDICARE, SELFPAY ==
[2023-07-19 14:26] VITALS: BMI 32.5
[2023-07-21] VITALS (7 sets, daily range): BP systolic 104–125; BP diastolic 66–72; PULSE 70–82; RESP 16–18; TEMP 36.1–36.5; O2SAT 94–97
[2023-07-21] MEDS: LACTATED RINGERS 1000ML 1,000 ML 25 ML IV (10:23)
[2023-07-21 10:33] LABS: POC Glucose,Bedside 125 (70-110)
--- NOTE | 2023-07-21 11:13 | HMH.SCOPE ---
Procedure: Date: 07/21/23 Patient Date of :: 1950 Procedure Performed:: Total colonoscopy Indications:: . Patient is a 73-year-old male with family history of colon cancer. Reportedly his sister had colon cancer at age 53 and mother when she was in her 40s. Last colonoscopy was with Dr. Christian on 07/18/2016. He recommended 5-year follow-up colonoscopy. . Performing Provider:: Kana Phipps MD Referring Provider:: Columba oRdríguez Sedation:: MAC sedation Procedure:: . Patient history was obtained and appropriate physical examination was performed. Patient's medications and allergies were reviewed. Informed consent was obtained after explaining the benefits, alternatives, and risks of the procedure including, but not limited to, bleeding, perforation, missed lesions, and adverse reaction to anesthesia medications. Patient was transported to endoscopy procedure room. Patient was connected to monitoring devices. Throughout the procedure the patient's blood pressure, pulse, and oxygen saturations were monitored continuously. Patient identification and planned procedure were verified by the staff. Patient was positioned in lateral decubitus position. Digital anorectal exam was performed. Variable stiffness Olympus colonoscope was inserted and advanced under direct visualization to the cecum. Adequacy of the colonic preparation was noted. The colonoscope was advanced a short distance into the terminal ileum. The colonoscope was then slowly withdrawn while carefully examining the color, texture, anatomy, and integrity of the mucosoa circumferentially. Within the rectum retroflexion was performed. Colonoscope was then withdrawn. . Impression: There was some adherent liquid stool to the maurice of the right colon which was unable to be cleared. Remainder of the colonoscopy revealed a few left-sided diverticuli. Otherwise no obvious polyps. . Findings:: Rare diverticulosis Recommendations:: Given strong family history and stool adherent to the right colon recommend repeat colonoscopy 2 to 3 years Complications:: None immediately apparent Estimated blood obtained (mL): 0 Colonoscopy Component Colonoscopy Component Was a colonoscopy performed during today's procedure?: Yes Recommended follow up colonoscopy of at least 10 years?: No If no, follow up colonoscopy recommended in ___ years?: 2-3 Reason for not recommending >/= 10 yr follow-up interval?: See above
--- NOTE | 2023-07-21 11:31 | P.PNANES_ITS ---
[facility] Disclaimer: The information contained in this section may have been updated after the patient was seen, as this information can be updated by other users. Medical History Ingrown toenail of right foot Splinter of toe of left foot Acute bacterial bronchitis Callus of foot Diabetic foot ulcer Acute febrile illness SIRS (systemic inflammatory response syndrome) Left against medical advice Encounter for pre-operative cardiovascular clearance Sepsis Cellulitis Severe sepsis SIRS (systemic inflammatory response syndrome) Bacterial pneumonia Hypokalemia Bronchitis due to COVID-19 virus Pneumonia due to COVID-19 virus COVID-19 virus infection Exposure to COVID-19 virus Viral syndrome Acute bronchitis Hematuria Kidney stone on right side Cough Mental status change resolved HTN (hypertension) Dyspnea HHD (hypertensive heart disease) Pre-op evaluation Diabetes Surgical History History of coronary artery stent placement History of cholecystectomy Hx of total knee arthroplasty Family History Other No significant family history Social History Smoking Status: Never smoker alcohol intake: never counseling provided: none substance use type: denies use current occupational status: retired Travel in the last 8 weeks: None household members: spouse housing: house caffeine: Yes [facility] Anesthesia Checklist Patient Identification Patient Identification: Arm Band, Family and Verbal (Name & ) Structural Data Admitted From: Home Planned Operative Procedure/s: Colonoscopy Consent for Planned Operative Procedure(s) Verified: Yes Verified Documents: Surgical Consent and History and Physical NPO Status Verified Time NPO: 09:30 Chart Verification Results Verified: CBC, BMP, ECG and Chest Xray Additional verifications Fingerstick Blood Glucose: 125 Patient : No Anesthesia Reactions: No Cardiovascular Assessment Heart Sounds: S1 & S2 Pulse Rhythm: Irregular Peripheral Edema: No Airway Assessment Mallampati Score:: Class II C-Spine Mobility Assessed: Yes (FROM) TMJ Mobility Assessed: Yes Dentition: Good Dentition (Nothing loose per pt.) Neurological Assessment Level of Consciousness: Awake, Alert, Appropriate and Follows Commands Hx Seizures: No Numbness or tingling in extremities: No Anesthesia Plan Anesthesia Risk discussed: Yes Anesthesia Plan: Verified ASA Class: III Anesthesia Type: MAC
--- NOTE | 2023-07-21 12:11 | EXP.ANES.I ---
[facility] [place] Anesthesia Record Part I Anesthesia Record I Intake, IV Amount: 800 Hydration: Adequate Estimated blood loss (mL): 0 Urine output (mL): 0 Blood Products used (#): none Blood Pressure: 112/66 SaO2: 96 Pulse Rate: 77 Airway Patency: Patent Respiratory Rate: 16 Temperature: 97.7 F Patient is:: Drowsy and Stable Stable to PACU at:: 12:14
== END 2023-07-21 12:39 | disposition home or self-care (01) ==
PROVIDERS: PCP Family Medicine; Visit Provider Surgery
PROC: 0DJD8ZZ Inspection of Lower Intestinal Tract, Via Natural or Artificial Opening Endoscopic (ICD-10-PCS; CPT G0105; principal; 2023-07-21 11:30)
DX: Z12.11 Encounter for screening for malignant neoplasm of colon (principal); Z80.0 Family history of malignant neoplasm of digestive organs; K57.90 Diverticulosis of intestine, part unspecified, without perforation or abscess without bleeding; E11.9 Type 2 diabetes mellitus without complications
CPT/HCPCS: G0105; 82962

== ENCOUNTER 2023-07-24 07:52 | Outpatient (CLI) | payer MEDICARE, SELFPAY ==
--- NOTE | 2023-07-24 09:15 | MR_ITS ---
FINAL REPORT CLINICAL HISTORY: wound of right 3rd distal tip FINDINGS: Multiplanar MR imaging of the right foot was performed with and without contrast. There is no evidence of fracture or marrow edema. There is no bony destruction or evidence of osteomyelitis No bony mass is identified. The flexor and extensor tendons are intact. No fluid collections are identified. The intrinsic muscles are unremarkable. There are no areas of abnormal contrast-enhancement. There is extensive edema, predominantly at the dorsum of the foot without loculated fluid collection to indicate abscess. IMPRESSION: No evidence of osteomyelitis or abscess. Reviewed, Interpreted and Dictated by Mavis Mcdermott MD Transcribed by Whitley Ludwig Authenticated and [facility]
[2023-07-24 09:17] LABS: Blood Urea Nitrogen 18 mg/dl (9-20); Estimated Glomerular Filt Rate 83 ml/min (>60); GFR (African American) 101 ML/MIN (>60)
[2023-07-24] MEDS: SODIUM CHLORIDE 0.9% 10ML SYR (RAD ONLY) 10 ML IV (10:20)
[2023-07-24] MEDS: GADOTERIDOL INJ 17ML SYRINGE 20 ML IV (10:20)
== END 2023-07-24 23:59 | disposition home or self-care (01) ==
LOC: RT 07:53
PROVIDERS: PCP Family Medicine; Visit Provider Nurse Practitioner
DX: R09.89 Other specified symptoms and signs involving the circulatory and respiratory systems (principal); L97.511 Non-pressure chronic ulcer of other part of right foot limited to breakdown of skin; E11.621 Type 2 diabetes mellitus with foot ulcer
CPT/HCPCS: 36415; 73720; 82565; 84520; 93923; A9576

== ENCOUNTER 2023-08-25 09:58 | Emergency (ER) | payer MEDICARE, SELFPAY ==
[2023-08-25 10:00] VITALS: BP 142/73; PULSE 77; RESP 18; TEMP 36.9; O2SAT 98; BMI 31.7
[2023-08-25 10:16] VITALS: BP 142/73; PULSE 70; RESP 18; O2SAT 98
[2023-08-25 10:27] LABS: Basophils % 0.7 % (0.1-2.0); Eosinophils # 0.1 K/mm3 (0.0-0.4); Eosinophils % 1.7 % (0.1-12.0); Hematocrit 44.9 % (42.0-52.0); Hemoglobin 14.8 g/dL (14.1-18.0); Lymphocytes # 0.9 K/mm3 (0.7-4.5); Lymphocytes % 17.9 % (10-50); Mean Corpuscular HGB Conc 32.9 g/dL (31.8-35.4); Mean Corpuscular Hemoglobin 28.2 pg (27.0-31.2); Mean Corpuscular Volume 85.9 fl (80-94); Mean Platelet Volume 7.9 fl (7.4-10.4); Monocytes # 0.3 K/mm3 (0.1-1.0); Monocytes % 6.6 % (1.7-9.3); Neutrophils # 3.8 K/mm3 (1.8-7.8); Neutrophils % 72.9 % (37.0-80.0); Platelet Count 200 K/mm3 (142-424); Red Blood Count 5.23 M/mm3 (4.60-6.20); Red Cell Distribution Width 15.4 % (11.5-17.5); White Blood Count 5.1 K/mm3 (4.8-10.8)
--- NOTE | 2023-08-25 10:29 | CT_ITS ---
FINAL REPORT TECHNIQUE: Oral and IV contrast enhanced exam CLINICAL HISTORY: LLQ tenderness, left groin pain COMPARISON: 06/09/2023 FINDINGS: Abdomen: Lung bases are clear. The gallbladder is surgically absent. There is fatty infiltration of the liver. Previously visualized left hepatic lobe lesion, near the gallbladder fossa, is no longer evident. The spleen, pancreas and adrenal glands are unremarkable. There are numerous bilateral renal masses which are denser than that of simple cysts. These could represent complex cysts, although, solid mass is within the differential. No bowel obstruction or fluid collection is seen. Pelvis: The appendix is not visualized. There is mild sigmoid diverticulosis. Small right inguinal hernia containing fat. No fluid collection or adenopathy is seen. IMPRESSION: 1. No acute findings. 2. Indeterminate bilateral renal masses, favor complex cysts, without interval enlargement. Reviewed, Interpreted and Dictated by Mavis Mcdermott MD Transcribed by Stephani Lees Authenticated and [facility]
--- NOTE | 2023-08-25 10:29 | HMH.EDGENADL ---
Discharge Plan Disposition Patient Disposition: Home, Self-Care Condition: Good Prescriptions Prescriptions: New methocarbamol 500 mg tablet 500 mg PO Q8H PRN (Reason: muscle spasm) Qty: 40 0RF No Action cyclobenzaprine 5 mg tablet 5 mg PO TIDP PRN (Reason: Muscle spasms) 90 Days Qty: 90 hydroxyzine pamoate [Vistaril] 25 mg capsule 25 mg PO BID MDD 50 mg PRN (Reason: Anxiety for MRI) Qty: 5 0RF Rx Instructions: 25 mg on-call for MRI. May repeat just before MRI if increase anxiety. Do not drive after taking hydroxyzine triamcinolone acetonide 0.1 % cream 1 applic topical TID Qty: 30 0RF mupirocin 2 % ointment 1 applic topical TID Qty: 180 12RF tramadol 50 mg tablet 50 mg PO BIDP PRN (Reason: pain) pioglitazone [Actos] 30 mg tablet 30 mg PO DAILY Qty: 90 3RF albuterol sulfate 90 mcg/actuation HFA aerosol inhaler 2 puff inhalation BIDP PRN (Reason: SOB) clopidogrel 75 mg tablet See Rx Instructions .ROUTE .COMPLEX Qty: 90 3RF Dose Instruction: TAKE 1 TABLET BY MOUTH DAILY FOR PLATELET INHIBITOR Rx Instructions: TAKE 1 TABLET BY MOUTH DAILY FOR PLATELET INHIBITOR losartan 50 mg tablet See Rx Instructions .ROUTE .COMPLEX Qty: 90 3RF Dose Instruction: TAKE 1 TABLET DAILY Rx Instructions: TAKE 1 TABLET DAILY simvastatin 20 mg tablet See Rx Instructions .ROUTE .COMPLEX Qty: 90 3RF Dose Instruction: TAKE 1 TABLET DAILY FOR HIGH CHOLESTEROL Rx Instructions: TAKE 1 TABLET DAILY FOR HIGH CHOLESTEROL (DME) blood-glucose meter [OneTouch Ultra2 Meter] Misc See Rx Instructions .ROUTE .MEDSUPPLY Qty: 1 Rx Instructions: As directed (DME) OneTouch Ultra Test Strip See Rx Instructions .ROUTE .MEDSUPPLY Qty: 10 Rx Instructions: As directed (DME) lancing device Misc See Rx Instructions .ROUTE .MEDSUPPLY Qty: 1 Rx Instructions: As directed (DME) blood glucose control, normal [OneTouch Ultra Control] Solution See Rx Instructions .ROUTE .MEDSUPPLY Qty: 1 Rx Instructions: As directed (DME) Ultra Thin Lancets 31 gauge misc See Rx Instructions .ROUTE .MEDSUPPLY Qty: 100 Rx Instructions: As directed nystatin 100,000 unit/gram cream See Rx Instructions .ROUTE .COMPLEX Qty: 90 2RF Dose Instruction: APPLY 1 APPLICATION TOPICALLY 3 TIMES DAILY Rx Instructions: APPLY 1 APPLICATION TOPICALLY 3 TIMES DAILY fluticasone propionate 50 mcg/actuation spray,suspension See Rx Instructions .ROUTE .COMPLEX Qty: 16 2RF Dose Instruction: USE 1 SPRAY IN BOTH NOSTRILS DAILY Rx Instructions: USE 1 SPRAY IN BOTH NOSTRILS DAILY metformin 500 mg tablet extended release 24 hr See Rx Instructions .ROUTE .COMPLEX Qty: 180 3RF Dose Instruction: TAKE 2 TABLETS BY MOUTH DAILY Rx Instructions: TAKE 2 TABLETS BY MOUTH DAILY tamsulosin [Flomax] 0.4 mg capsule 0.4 mg PO DAILY 90 Days Qty: 90 3RF Ozempic 0.25 mg or 0.5 mg (2 mg/3 mL) pen injector 0.25 mg SQ WEEKLY MDD .25mg for 4 weeks Qty: 3 0RF Rx Instructions: for 4 weeks,will adjust before 57 days if needed Referrals Follow up/Referrals: Columba Rodríguez APRN [Primary Care Provider] - See instructions Activity Restrictions/Add. Instructions Additional Instructions/Restrictions: You were seen in the ED today due to groin pain. Labs, CT scan were reassuring. It is possible you may have pulled a muscle. We have prescribed a muscle relaxer. Please take as directed. Follow-up with primary care. Return to the ED if symptoms worsen or if new concerning symptoms arise. Thank you. Clinical Impressions Clinical Impression: Left groin pain Discharge ED Provider: Cameron Long Adult HPI General Chief complaint: PAIN Stated complaint: pain in groin Time Seen by Provider: 08/25/23 10:23 Mode of Arrival: Ambulatory Source of Information: Patient Limitations: No Limitations Description of Symptoms (Recalled from ER Triage Doc. by RN): pt presents to ED c/o pain in left side groin. pt denies any know injury. pt states he experiences pain with ambulation. pt reports he does do some lifting at work. pt reports umbilical hernia. History of Present Illness HPI narrative: Patient is a 73-year-old male with history of HTN, diabetes, lymphedema who presents due to groin pain. Patient states yesterday he began having pain in his left groin. He is unsure if he may have pulled a muscle. States he does lift boxes sometimes for work. He has mainly been experiencing pain while ambulating. Reports history of abdominal hernias. Patient's last bowel movement was this morning and normal. Denies any nausea, vomiting or fevers. Denies any changes in urination. Related Data Home Medications Medication Instructions Recorded Confirmed tramadol 50 mg tablet 50 mg PO BIDP PRN pain 08/24/17 08/14/23 cyclobenzaprine 5 mg tablet 5 mg PO TIDP PRN Muscle spasms 90 07/06/20 08/14/23 days ##90 albuterol sulfate 90 mcg/actuation 2 puff inhalation BIDP PRN SOB 02/22/23 08/14/23 aerosol inhaler blood glucose control, normal #1 ea 04/24/23 08/14/23 (We TributeTouch Ultra Control solution) blood sugar diagnostic (OneTouch #10 ea 04/24/23 08/14/23 Ultra Test strips) blood-glucose meter (OneTouch #1 ea 04/24/23 07/31/23 Ultra2 Meter) lancets 31 gauge (Ultra Thin #100 ea 04/24/23 07/31/23 Lancets) lancing device #1 ea 04/24/23 07/31/23 Previous Rx's Medication Instructions Recorded pioglitazone 30 mg tablet (Actos) 30 mg PO DAILY #90 tabs 11/18/22 nystatin 100,000 unit/gram topical See Rx Instructions .Route 03/02/23 cream .COMPLEX #90 grams clopidogrel 75 mg tablet See Rx Instructions .Route 04/10/23 .COMPLEX #90 tabs losartan 50 mg tablet See Rx Instructions .Route 04/10/23 .COMPLEX #90 tabs simvastatin 20 mg tablet See Rx Instructions .Route 04/10/23 .COMPLEX #90 tabs fluticasone propionate 50 See Rx Instructions .Route 05/17/23 mcg/actuation nasal .COMPLEX #16 grams spray,suspension triamcinolone acetonide 0.1 % 1 applic topical TID #30 grams 06/08/23 topical cream metformin 500 mg tablet,extended See Rx Instructions .Route 06/23/23 release 24 hr .COMPLEX #180 tabs mupirocin 2 % topical ointment 1 applic topical TID #180 applic 07/03/23 tamsulosin 0.4 mg capsule (Flomax) 0.4 mg PO DAILY 90 days #90 caps 07/03/23 semaglutide 0.25 mg or 0.5 mg (2 0.25 mg (0.368 mL) SQ WEEKLY 08/09/23 mg/3 mL) subcutaneous pen injector Diabetes #3 mL (Ozempic) hydroxyzine pamoate 25 mg capsule 25 mg PO BID PRN Anxiety for MRI 08/14/23 (Vistaril) #5 caps methocarbamol 500 mg tablet 500 mg PO Q8H PRN muscle spasm #40 08/25/23 tabs Allergies Allergy/AdvReac Type Severity Reaction Status Date / Time Penicillins [PENICILLINS] Allergy Unknown I-ITCHING Verified 08/14/23 07:41 [facility] Disclaimer: The information contained in this section may have been updated after the patient was seen, as this information can be updated by other users. Medical History Ingrown toenail of right foot Splinter of toe of left foot Acute bacterial bronchitis Callus of foot Diabetic foot ulcer Acute febrile illness SIRS (systemic inflammatory response syndrome) Left against medical advice Encounter for pre-operative cardiovascular clearance Sepsis Cellulitis Severe sepsis SIRS (systemic inflammatory response syndrome) Bacterial pneumonia Hypokalemia Bronchitis due to COVID-19 virus Pneumonia due to COVID-19 virus COVID-19 virus infection Exposure to COVID-19 virus Viral syndrome Acute bronchitis Hematuria Kidney stone on right side Cough Mental status change resolved HTN (hypertension) Dyspnea HHD (hypertensive heart disease) Pre-op evaluation Diabetes Surgical History History of coronary artery stent placement History of cholecystectomy Hx of total knee arthroplasty Family History (Updated 08/14/23 @ 08:14 by Nicole Montes) Other Cancer Cerebral palsy Dementia Diabetes Social History Smoking Status: Never smoker alcohol intake: never counseling provided: none substance use type: denies use current occupational status: retired Travel in the last 8 weeks: None household members: spouse housing: house caffeine: Yes ROS Obtained: Yes All systems reviewed & no additional complaints except as documented Physical Exam General General appearance: alert and in no apparent distress Head Head exam: atraumatic, normocephalic and normal inspection Eye Eye exam: Present normal appearance, PERRL and EOMI ENT ENT exam: Present normal exam, normal oropharynx, mucous membranes moist, TM's normal bilaterally and normal external ear exam Neck Neck exam: Present normal inspection, full ROM and trachea midline; Absent meningismus or lymphadenopathy Chest Chest inspection: Present normal inspection and symmetric chest wall rise; Absent tenderness Respiratory Respiratory exam: Present normal lung sounds bilaterally; Absent respiratory distress Cardiovascular Cardiovascular exam: Present regular rate and normal rhythm; Absent JVD Abdominal Exam Abdominal exam: Present soft, tenderness and normal bowel sounds; Absent distention or guarding Abdominal tenderness: Present LLQ Comment: LLQ and left groin tenderness to palpation. No palpable hernia. Extremities Exam Extremities exam: Present normal inspection, full ROM and normal capillary refill; Absent calf tenderness Back Exam Back exam: Present normal inspection; Absent tenderness Neurological Exam Neurological exam: Present alert and oriented X3 Psychiatric Psychiatric exam: Present normal affect and normal mood Skin Skin exam: Present warm, dry, intact and normal color Lymphatic Lymphatic Findings: no adenopathy Medical Decision Making Medical Records Medical records reviewed: Yes I reviewed the patient's medical records. Jevon Inquiry Pt receiving controlled substance: No Vital Signs: 08/25/23 10:00 08/25/23 10:16 08/25/23 10:30 Temperature 98.5 F Temperature Source Oral Pulse Rate 70 70 Pulse Rate [Right Radial] 77 Respiratory Rate 18 18 Blood Pressure 142/73 H 132/74 Blood Pressure [Right Arm] 142/73 H Blood Pressure Mean [Right Arm] 96 Blood Pressure Source Automatic Cuff Blood Pressure Source [Right Arm] Automatic Cuff Blood Pressure Position Sitting Blood Pressure Position [Right Arm] Sitting 02 Sat by Pulse Oximetry 98 98 96 Oxygen Delivery Method Room Air Room Air Lab Data Lab Results 08/25/23 10:09: WBC 5.1, RBC 5.23, Hgb 14.8, Hct 44.9, MCV 85.9, MCH 28.2, MCHC 32.9, RDW 15.4, Plt Count 200, MPV 7.9, Neut % (Auto) 72.9, Lymph % (Auto) 17.9, Levy % (Auto) 6.6, Eos % (Auto) 1.7, Baso % (Auto) 0.7, Neut # (Auto) 3.8, Lymph # (Auto) 0.9, Levy # (Auto) 0.3, Eos # (Auto) 0.1, Baso # (Auto) 0.0, Sodium 138, Potassium 4.2, Chloride 103, Carbon Dioxide 24, Anion Gap 15.2 H, BUN 19, Creatinine 1.00, Estimated Creat Clear 93, Estimated GFR 74, Est GFR ( Amer) 89, Glucose 137 H, Calcium 9.4, Total Bilirubin 1.2, AST 39, ALT 35, Alkaline Phosphatase 69, Total Protein 7.7, Albumin 4.4, Globulin 3.3 H, Albumin/Globulin Ratio 1.3 08/25/23 11:23: Urine Color Yellow, Urine Appearance Clear, Urine pH 5.5, Ur Specific [place] 1.020, Urine Protein Trace, Urine Glucose (UA) Negative, Urine Ketones Negative, Urine Blood Negative, Urine Nitrate Negative, Urine Bilirubin Negative, Urine Urobilinogen 0.2, Ur Leukocyte Esterase Negative, Urine RBC None, Urine WBC None, Ur Squamous Epith Cells Occasional, Urine Bacteria Trace 08/25/23 10:09 08/25/23 10:09 Orders (Tests/Meds): ED MEDICATIONS Generic Name Dose Route Start Last Admin Trade Name Freq PRN Reason Stop Dose Admin Sodium Chloride 10 ml 08/25/23 10:16 08/25/23 11:12 Sodium Chloride 0.9% 10ml Flush Syringe IV 09/24/23 10:15 10 ml NEEDED PRN Administration Maintain IV Site Discontinued Medications Generic Name Dose Route Start Last Admin Trade Name Freq PRN Reason Stop Dose Admin Iopamidol 75 ml 08/25/23 11:11 08/25/23 11:12 Iopamidol-370 (76%);100ml Bottle IV 08/25/23 11:12 75 ml ONCE ONE Administration Sodium Chloride 10 ml 08/25/23 11:11 08/25/23 11:12 Sodium Chloride 0.9% 10ml Syr (Rad Only) IV 08/25/23 11:12 10 ml ONCE ONE Administration ORDERS Category Date Time Status CT abdomen pelvis w con Stat Cat Scan 08/25/23 10:29 Taken Complete Blood Count Auto Diff Stat Lab 08/25/23 10:09 Completed Comprehensive Metabolic Panel Stat Lab 08/25/23 10:09 Completed Urinalysis and Microscopic Stat Lab 08/25/23 11:23 Completed Medical Decision Narrative: In summary, patient is 73-year-old male with history of HTN, diabetes, lymphedema, evaluated in the emergency department today due to left groin pain. On arrival, patient is hemodynamically stable with normal vital signs. On examination, patient has tenderness to palpation of left lower quadrant and groin. Differential diagnosis includes but is not limited to incarcerated hernia, urinary tract infection, kidney stone, musculoskeletal pain, diverticulitis. Patient deferred pain medication. Workup initiated including CBC, CMP urinalysis,, CT abdomen/pelvis with contrast. Labs independently interpreted by me and significant for no significant findings. Imaging independently interpreted by me and significant for CT demonstrating bilateral renal cyst, otherwise no acute findings. On reevaluation, patient is resting comfortably in no distress. Patient is aware of his renal cysts. Given overall reassuring workup, he has most likely pulled a muscle. Will plan to treat with muscle relaxer. Prescription for Robaxin provided. Patient is appropriate for discharge at this time. Patient counseled on home care, given strict return precautions and agreeable to plan. I considered the utility of treatment with narcotics, but decided against this because risks outweigh benefits. Critical Care Critical Care Time Critical Care Time: No
[2023-08-25 10:30] VITALS: BP 132/74; PULSE 70; O2SAT 96
[2023-08-25 10:31] LABS: Potassium 4.2 mmoL/L (3.5-5.1)
[2023-08-25 10:34] LABS: Alanine Aminotransferase 35 U/L (12-78); Albumin Level 4.4 g/dl (3.5-5.0); Albumin/Globulin Ratio 1.3 (1.1-1.8); Alkaline Phosphatase 69 U/L (38-126); Anion Gap 15.2 mEq/L (5-15); Aspartate Amino Transferase 39 U/L (17-59); Bilirubin,Total 1.2 mg/dl (0.2-1.3); Blood Urea Nitrogen 19 mg/dl (9-20); Calcium 9.4 mg/dl (8.4-10.2); Carbon Dioxide 24 mmol/L (22.0-30.0); Chloride 103 mmol/L (98-107); Creatinine Clearance Estimated 93 mL/min (50-200); Estimated Glomerular Filt Rate 74 ml/min (>60); GFR (African American) 89 ML/MIN (>60); Globulin 3.3 g/dL (1.3-3.2); Glucose 137 mg/dl (74-100); Sodium 138 mmol/L (136-145); Total Protein,Serum 7.7 g/dl (6.3-8.2)
--- NOTE | 2023-08-25 10:45 | PC.NURSE ---
pt unable to urinate at this time. urinal at bedside. call light w/i reach.
[2023-08-25] MEDS: IOPAMIDOL-370 (76%);100ML BOTTLE 75 ML IV (11:12)
[2023-08-25] MEDS: SODIUM CHLORIDE 0.9% 10ML SYR (RAD ONLY) 10 ML IV (11:12)
[2023-08-25] MEDS: SODIUM CHLORIDE 0.9% 10ML FLUSH SYRINGE 10 ML IV (11:12)
[2023-08-25 11:27] LABS: Microscopic, Urine URINE MICROSCOPIC (MICROSCOPIC)
[2023-08-25 11:32] LABS: Appearance,Urine CLEAR (Clear); Bilirubin,Urine Negative (Negative); Blood, Urine Negative (Negative); Color,Urine YELLOW (Yellow); Glucose,Urine (UA) Negative (Negative); Ketones,Urine Negative (Negative); Leukocyte Esterase,Urine Negative (Negative); Nitrate,Urine Negative (Negative); PH,Urine 5.5 (5.0-8.5); Protein,Urine TRACE (Negative); Urobilinogen,Urine 0.2 EU/dl (0.2)
[2023-08-25 11:45] LABS: Bacteria,Urine Trace /lpf; Squamous Epithelial Cell,Urine Occasional #/hpf (0-5)
--- NOTE | 2023-08-25 12:19 | PC.NURSE ---
evans alvarez updating pt at this time.
[2023-08-25 12:21] VITALS: BP 115/88; PULSE 68; O2SAT 95
[2023-08-25 12:30] VITALS: BP 115/88; PULSE 69; RESP 13; TEMP 36.6
== END 2023-08-25 12:30 | disposition home or self-care (01) ==
PROVIDERS: Emergency Provider Student in an Organized Health Care Education/Training Program; PCP Family Medicine
DX: R10.32 Left lower quadrant pain (principal); E11.9 Type 2 diabetes mellitus without complications; I10 Essential (primary) hypertension; Z79.84 Long term (current) use of oral hypoglycemic drugs; Z79.85 Long-term (current) use of injectable non-insulin antidiabetic drugs
CPT/HCPCS: 74177; 80053; 81001; 85025; 99284; Q9967

== ENCOUNTER 2023-08-28 16:20 | Outpatient (CLI) | payer MEDICARE, SELFPAY ==
--- NOTE | 2023-08-28 16:20 | MR_ITS ---
FINAL REPORT CLINICAL HISTORY: encephalopathy, memory loss FINDINGS: Multiplanar MR imaging of the brain was performed without and with contrast. There is mild age-appropriate atrophy. Scattered foci of increased T2 signal are seen in the cerebral white matter that have a nonspecific appearance but likely represent mild chronic ischemic/gliotic changes. There is no evidence of intracranial hemorrhage or mass. No abnormal ventricular dilatation is identified. There is no evidence of shift of the midline structures. No abnormal extra-axial fluid collection is seen. No area of abnormal restricted diffusion is identified. The posterior fossa and brainstem have an unremarkable appearance. No abnormal contrast enhancement is seen. Normal major vessel vascular flow voids are seen. IMPRESSION: Mild atrophy and chronic ischemic/gliotic changes. No acute intracranial abnormality. Authenticated and ERN
[2023-08-28] MEDS: SODIUM CHLORIDE 0.9% 10ML SYR (RAD ONLY) 10 ML IV (17:15)
[2023-08-28] MEDS: GADOTERIDOL INJ 20ML SYRINGE 19 ML IV (17:15)
== END 2023-08-28 23:59 | disposition home or self-care (01) ==
LOC: RAD 16:20
PROVIDERS: PCP Family Medicine; Visit Provider Specialist
DX: G93.40 Encephalopathy, unspecified (principal); R41.9 Unspecified symptoms and signs involving cognitive functions and awareness; R41.3 Other amnesia; F41.9 Anxiety disorder, unspecified
CPT/HCPCS: 70553; A9576

== ENCOUNTER 2023-09-04 09:53 | Outpatient (CLI) | payer MEDICARE, SELFPAY ==
[2023-09-04 10:50] VITALS: PULSE 71
[2023-09-04] MEDS: ALBUTEROL 0.083% 2.5 MG/3 ML NEB IH (10:50)
== END 2023-09-04 23:59 | disposition home or self-care (01) ==
LOC: RT 09:54
PROVIDERS: PCP Family Medicine; Visit Provider Specialist
DX: R05.3 Chronic cough (principal); R76.12 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 gamma interferon antigen response without active tuberculosis
CPT/HCPCS: 94060; 94640; 94726; 94729; J7613

== ENCOUNTER 2023-09-06 09:36 | Emergency (ER) | payer MEDICARE, SELFPAY ==
[2023-09-06 09:37] VITALS: BP 158/85; PULSE 75; RESP 18; TEMP 36.6; O2SAT 99; BMI 31.7
--- NOTE | 2023-09-06 09:54 | PC.NURSE ---
dr aguirre at bedside
[2023-09-06 10:00] VITALS: BP 158/88; PULSE 68; O2SAT 98
--- NOTE | 2023-09-06 10:04 | CT_ITS ---
FINAL REPORT TECHNIQUE: Pre-and postcontrast images of the abdomen and pelvis were performed by computed tomography. Extensive 3-D reconstruction images were performed. A CTA was performed. This study was performed with techniques to keep radiation doses as low as reasonably achievable (ALARA). Individualized dose reduction techniques using automated exposure control or adjustment of mA and/or kV according to the patient''s size were employed. CLINICAL HISTORY: sudden left sided abd pain COMPARISON: 08/07/2023 and 04/24/2023 FINDINGS: ABDOMEN/PELVIS: The lung bases are clear. There are multiple bilateral renal masses which are stable consistent with simple and hemorrhagic cysts. No follow-up is recommended. No adrenal masses are identified. The liver, spleen and pancreas are unremarkable. Patient is status post cholecystectomy. There is descending and sigmoid colonic diverticula. There is acute diverticulitis of the descending colon. The appendix is normal. There is a 5 mm stone in the dependent portion of the bladder which is new since prior. Inguinal hernias containing fat are noted. CTA: The abdominal aorta is proper caliber. The SMA, celiac axis, and PHILLIP are patent. There is no significant stenosis or calcification. The renal arteries are patent bilaterally. The iliacs are unremarkable. IMPRESSION: Stable bilateral renal masses consistent with simple and hemorrhagic cysts. Acute diverticulitis of the descending colon. Stone in the dependent portion of the bladder, new since previous. Reviewed, Interpreted and Dictated by Kana Cabrera III, MD Transcribed by Shahla Iglesias Authenticated and [facility]
--- NOTE | 2023-09-06 10:06 | HMH.EDGENADL ---
Discharge Plan Disposition Patient Disposition: Home, Self-Care Prescriptions Prescriptions: New hydrocodone-acetaminophen 5-325 mg tablet 1 tab PO Q6H PRN (Reason: pain) 3 Days Qty: 12 0RF ondansetron 4 mg tablet,disintegrating 4 mg PO Q6H PRN (Reason: nausea and vomiting) 5 Days Qty: 20 0RF levofloxacin 750 mg tablet 750 mg PO DAILY 7 Days Qty: 7 0RF No Action cyclobenzaprine 5 mg tablet 5 mg PO TIDP PRN (Reason: Muscle spasms) 90 Days Qty: 90 mupirocin 2 % ointment 1 applic topical TID Qty: 180 12RF tramadol 50 mg tablet 50 mg PO BIDP PRN (Reason: pain) pioglitazone [Actos] 30 mg tablet 30 mg PO DAILY Qty: 90 3RF albuterol sulfate 90 mcg/actuation HFA aerosol inhaler 2 puff inhalation BIDP PRN (Reason: SOB) clopidogrel 75 mg tablet See Rx Instructions .ROUTE .COMPLEX Qty: 90 3RF Dose Instruction: TAKE 1 TABLET BY MOUTH DAILY FOR PLATELET INHIBITOR Rx Instructions: TAKE 1 TABLET BY MOUTH DAILY FOR PLATELET INHIBITOR losartan 50 mg tablet See Rx Instructions .ROUTE .COMPLEX Qty: 90 3RF Dose Instruction: TAKE 1 TABLET DAILY Rx Instructions: TAKE 1 TABLET DAILY simvastatin 20 mg tablet See Rx Instructions .ROUTE .COMPLEX Qty: 90 3RF Dose Instruction: TAKE 1 TABLET DAILY FOR HIGH CHOLESTEROL Rx Instructions: TAKE 1 TABLET DAILY FOR HIGH CHOLESTEROL (DME) blood-glucose meter [OneTouch Ultra2 Meter] Misc See Rx Instructions .ROUTE .MEDSUPPLY Qty: 1 Rx Instructions: As directed ([facility]) OneTouch Ultra Test Strip See Rx Instructions .ROUTE .MEDSUPPLY Qty: 10 Rx Instructions: As directed (DME) lancing device Mis See Rx Instructions .ROUTE .MEDSUPPLY Qty: 1 Rx Instructions: As directed (DME) blood glucose control, normal [OneTouch Ultra Control] Solution See Rx Instructions .ROUTE .MEDSUPPLY Qty: 1 Rx Instructions: As directed ([facility]) Ultra Thin [facility]ets [facility] See Rx Instructions .ROUTE .MEDSUPPLY Qty: 100 Rx Instructions: As directed nystatin 100,000 unit/gram cream See Rx Instructions .ROUTE .COMPLEX Qty: 90 2RF Dose Instruction: APPLY 1 APPLICATION TOPICALLY 3 TIMES DAILY Rx Instructions: APPLY 1 APPLICATION TOPICALLY 3 TIMES DAILY fluticasone propionate 50 mcg/actuation spray,suspension See Rx Instructions .ROUTE .COMPLEX Qty: 16 2RF Dose Instruction: USE 1 SPRAY IN BOTH NOSTRILS DAILY Rx Instructions: USE 1 SPRAY IN BOTH NOSTRILS DAILY metformin 500 mg tablet extended release 24 hr See Rx Instructions .ROUTE .COMPLEX Qty: 180 3RF Dose Instruction: TAKE 2 TABLETS BY MOUTH DAILY Rx Instructions: TAKE 2 TABLETS BY MOUTH DAILY tamsulosin [Flomax] 0.4 mg capsule 0.4 mg PO DAILY 90 Days Qty: 90 3RF hydroxyzine pamoate [Vistaril] 25 mg capsule 25 mg PO BID MDD 50 mg PRN (Reason: Anxiety for MRI) Qty: 5 0RF Rx Instructions: 25 mg on-call for MRI. May repeat just before MRI if increase anxiety. Do not drive after taking hydroxyzine Ozempic 0.25 mg or 0.5 mg (2 mg/3 mL) pen injector See Rx Instructions .ROUTE .COMPLEX Qty: 3 11RF Dose Instruction: INJECT SUBCUTANEOUSLY 0.25 MG EVERY WEEK FOR 4 WEEKS FOR DIABETES Rx Instructions: INJECT SUBCUTANEOUSLY 0.25 MG EVERY WEEK FOR 4 WEEKS FOR DIABETES triamcinolone acetonide 0.1 % cream See Rx Instructions .ROUTE .COMPLEX Qty: 30 4RF Dose Instruction: APPLY 1 APPLICATION TO AFFECTED AREA(S) TOPICALLY 3 TIMES DAILY Rx Instructions: APPLY 1 APPLICATION TO AFFECTED AREA(S) TOPICALLY 3 TIMES DAILY methocarbamol 500 mg tablet 500 mg PO Q8H PRN (Reason: muscle spasm) Qty: 40 0RF Referrals Follow up/Referrals: Kana Phipps MD [Staff Physician] - See instructions Columba Rodríguez APRN [Primary Care Provider] - See instructions Activity Restrictions/Add. Instructions Additional Instructions/Restrictions: You have uncomplicated diverticulitis in the location of where you are having your tenderness and pain. This is the cause of your symptoms today. You also have a stone that is in your bladder that most recently likely passed and could have been a contributory factor which ongoing symptoms are from diverticulitis. I recommend that you follow-up with your general surgeon Dr. Phipps to ensure resolution of your symptoms. Return with any sudden worsening of your pain high fevers or other concerns. Clinical Impressions Clinical Impression: Left sided abdominal pain, Diverticulitis Stand Alone Forms Stand Alone Forms: Work/School Release Instructions Patient Instructions: DI for Acute Abdominal Pain Discharge ED Provider: Lele Smith General Adult HPI General Chief complaint: Abdominal Pain Stated complaint: Pain lower L Abd Time Seen by Provider: 09/06/23 09:53 Mode of Arrival: Ambulatory Source of Information: Patient Limitations: No Limitations Description of Symptoms (Recalled from ER Triage Doc. by RN): PT C/O SHARP LEFT SIDED ABDOMINAL PAIN, WORSE TO PALPATION. STARTED LAST NIGHT, HAVING FREQUENT BOWEL MOVEMENTS, BLOOD NOTED TO STOOL. DENIES FEVER OR CHILLS. NO URINARY SYMPTOMS History of Present Illness HPI narrative: Patient is a 73-year-old male presenting today with sudden onset of left-sided abdominal pain. This started last night has been intermittent and has resolved rhythm with movement at the moment. States he is having frequent bowel movements but is having a difficult time getting his bowel to move when he tries. Does state he feels like if he was able to have a bowel movement that he would feel better but denies constipation. Has had some scant blood in his stool but has known history of hemorrhoids had a recent colonoscopy which was unremarkable. Was here within the last few weeks had a CAT scan with contrast that was unremarkable aside from nonspecific masses which were felt most likely to be renal cysts. Patient does have a history of kidney stones. Also he recently has been started on Ozempic. Related Data Home Medications Medication Instructions Recorded Confirmed tramadol 50 mg tablet 50 mg PO BIDP PRN pain 08/24/17 08/30/23 cyclobenzaprine 5 mg tablet 5 mg PO TIDP PRN Muscle spasms 90 07/06/20 08/30/23 days ##90 albuterol sulfate 90 mcg/actuation 2 puff inhalation BIDP PRN SOB 02/22/23 08/30/23 aerosol inhaler blood glucose control, normal #1 ea 04/24/23 08/30/23 (OneTouch Ultra Control solution) blood sugar diagnostic (OneTouch #10 ea 04/24/23 08/30/23 Ultra Test strips) blood-glucose meter (OneTouch #1 ea 04/24/23 08/30/23 Ultra2 Meter) lancets 31 gauge (Ultra Thin #100 ea 04/24/23 08/30/23 Lancets) lancing device #1 ea 01/29/24 06/05/24 Previous Rx's Medication Instructions Recorded pioglitazone 30 mg tablet (Actos) 30 mg PO DAILY #90 tabs 11/18/22 nystatin 100,000 unit/gram topical See Rx Instructions .Route 03/02/23 cream .COMPLEX #90 grams clopidogrel 75 mg tablet See Rx Instructions .Route 04/10/23 .COMPLEX #90 tabs losartan 50 mg tablet See Rx Instructions .Route 04/10/23 .COMPLEX #90 tabs simvastatin 20 mg tablet See Rx Instructions .Route 04/10/23 .COMPLEX #90 tabs fluticasone propionate 50 See Rx Instructions .Route 05/17/23 mcg/actuation nasal .COMPLEX #16 grams spray,suspension metformin 500 mg tablet,extended See Rx Instructions .Route 06/23/23 release 24 hr .COMPLEX #180 tabs mupirocin 2 % topical ointment 1 applic topical TID #180 applic 07/03/23 tamsulosin 0.4 mg capsule (Flomax) 0.4 mg PO DAILY 90 days #90 caps 07/03/23 hydroxyzine pamoate 25 mg capsule 25 mg PO BID PRN Anxiety for MRI 08/25/23 (Vistaril) #5 caps methocarbamol 500 mg tablet 500 mg PO Q8H PRN muscle spasm #40 08/25/23 tabs semaglutide 0.25 mg or 0.5 mg (2 See Rx Instructions .Route 08/30/23 mg/3 mL) subcutaneous pen injector .COMPLEX #3 mL (Ozempic) triamcinolone acetonide 0.1 % See Rx Instructions .Route 09/04/23 topical cream .COMPLEX #30 grams hydrocodone 5 mg-acetaminophen 325 1 tab PO Q6H PRN pain 3 days #12 09/06/23 mg tablet tabs levofloxacin 750 mg tablet 750 mg PO DAILY 7 days #7 tabs 09/06/23 ondansetron 4 mg disintegrating 4 mg PO Q6H PRN nausea and 09/06/23 tablet vomiting 5 days #20 tabs Allergies Allergy/AdvReac Type Severity Reaction Status Date / Time Penicillins [PENICILLINS] Allergy Unknown I-ITCHING Verified 08/30/23 15:47 [facility] Disclaimer: The information contained in this section may have been updated after the patient was seen, as this information can be updated by other users. Medical History Ingrown toenail of right foot Splinter of toe of left foot Acute bacterial bronchitis Callus of foot Diabetic foot ulcer Acute febrile illness SIRS (systemic inflammatory response syndrome) Left against medical advice Encounter for pre-operative cardiovascular clearance Sepsis Cellulitis Severe sepsis SIRS (systemic inflammatory response syndrome) Bacterial pneumonia Hypokalemia Bronchitis due to COVID-19 virus Pneumonia due to COVID-19 virus COVID-19 virus infection Exposure to COVID-19 virus Viral syndrome Acute bronchitis Hematuria Kidney stone on right side Cough Mental status change resolved HTN (hypertension) Dyspnea HHD (hypertensive heart disease) Pre-op evaluation Diabetes Surgical History History of coronary artery stent placement History of cholecystectomy Hx of total knee arthroplasty Family History Other Cancer Cerebral palsy Dementia Diabetes Social History Smoking Status: Never smoker alcohol intake: never counseling provided: none substance use type: denies use current occupational status: retired Travel in the last 8 weeks: None household members: spouse housing: house caffeine: Yes ROS Obtained: Yes All systems reviewed & no additional complaints except as documented Physical Exam General General appearance: alert and in no apparent distress Respiratory Respiratory exam: Present normal lung sounds bilaterally Cardiovascular Cardiovascular exam: Present regular rate Abdominal Exam Abdominal exam: Present soft and tenderness (With the palpation patient has tenderness in his right lower quadrant suprapubic region and left lower quadrant no rebound or guarding his abdomen is distended) Neurological Exam Neurological exam: Present alert and oriented X3 Medical Decision Making Jevon Inquiry Pt receiving controlled substance: No Vital Signs: 09/06/23 09:37 09/06/23 10:00 09/06/23 10:30 Temperature 97.8 F Temperature Source Oral Pulse Rate 68 74 Pulse Rate [Radial] 75 Respiratory Rate 18 Blood Pressure 158/88 H 134/81 Blood Pressure [Left Arm] 158/85 H Blood Pressure Mean 111 106 Blood Pressure Mean [Left Arm] 109 Blood Pressure Source [Left Arm] Automatic Cuff Blood Pressure Position [Left Arm] Sitting 02 Sat by Pulse Oximetry 99 98 99 Oxygen Delivery Method Room Air 09/06/23 11:00 09/06/23 11:31 Temperature Temperature Source Pulse Rate 72 65 Pulse Rate [Radial] Respiratory Rate Blood Pressure 137/93 H 164/90 H Blood Pressure [Left Arm] Blood Pressure Mean 107 114 Blood Pressure Mean [Left Arm] Blood Pressure Source [Left Arm] Blood Pressure Position [Left Arm] 02 Sat by Pulse Oximetry 97 100 Oxygen Delivery Method Lab Data Lab results reviewed: Yes I reviewed the patient's lab results. Lab Results 09/06/23 10:05: WBC 6.7, RBC 5.14, Hgb 14.3, Hct 43.9, MCV 85.4, MCH 27.9, MCHC 32.6, RDW 15.3, Plt Count 208, MPV 7.8, Neut % (Auto) 78.3, Lymph % (Auto) 12.8, [place] % (Auto) 6.8, Eos % (Auto) 1.6, Baso % (Auto) 0.5, Neut # (Auto) 5.2, Lymph # (Auto) 0.9, [place] # (Auto) 0.5, Eos # (Auto) 0.1, Baso # (Auto) 0.0, Sodium 137, Potassium 4.3, Chloride 102, Carbon Dioxide 28, Anion Gap 11.3, BUN 13, Creatinine 0.90, Estimated Creat Clear 93, Estimated GFR 83, Est GFR ( Amer) 101, Glucose 143 H, Lactate 1.2, Calcium 9.2, Total Bilirubin 1.2, AST 37, ALT 32, Alkaline Phosphatase 73, Total Protein 7.2, Albumin 4.3, Globulin 2.9, Albumin/Globulin Ratio 1.5, Lipase 322 H 09/06/23 10:05 09/06/23 10:05 Orders (Tests/Meds): ED MEDICATIONS Discontinued Medications Generic Name Dose Route Start Last Admin Trade Name Freq PRN Reason Stop Dose Admin Lactated Ringer's 1,000 mls @ 999 mls/hr 09/06/23 10:15 09/06/23 10:23 Lactated Ringer's 1000 Ml Bag IV 09/06/23 11:15 999 mls/hr .Q1H1M SWATHI Administration Iopamidol 100 ml 09/06/23 10:47 09/06/23 10:49 Iopamidol-370 (76%);100ml Bottle IV 09/06/23 10:48 100 ml ONCE ONE Administration Morphine Sulfate 4 mg 09/06/23 10:04 09/06/23 10:23 Morphine 4mg/Ml Syringe IV 09/06/23 10:05 4 mg ONCE ONE Administration Ondansetron HCl 4 mg 09/06/23 10:04 09/06/23 10:23 Ondansetron 4mg/2ml Vial IV 09/06/23 10:05 4 mg ONCE ONE Administration Sodium Chloride 50 ml 09/06/23 10:47 09/06/23 10:49 0.9 % Sodium Chloride 50 Ml Vial IV 09/06/23 10:48 50 ml ONCE ONE Administration ORDERS Category Date Time Status CT angio abdomen pelvis Stat Cat Scan 09/06/23 10:04 Completed CBC w/Auto Diff [Complete Blood Count Auto Diff] Stat Lab 09/06/23 10:05 Completed CMP [Comprehensive Metabolic Panel] Stat Lab 09/06/23 10:05 Completed Lactic Acid Stat Lab 09/06/23 10:05 Completed Lipase Stat Lab 09/06/23 10:05 Completed Medical Decision Narrative: 73-year-old with above history and physical very benign in appearance at the moment his pain seems to have improved significantly from when it first started yesterday evening. However with the sudden onset differential includes perforated viscus, kidney stone, does not check ischemia, diverticulitis etc. Gastrolyte pain constipation also remain on differential we will get a contrasted CT scan with angiography to further evaluate this. IV fluids pain medicine nausea medicine have been administered as well and will reassess. Reassessment 12:42 PM patient has uncomplicated diverticulitis in the location of his pain without any abscess or perforation. Also has a stone in his dependent portion of his bladder which is new and likely had a passed stone as well. No evidence of any ongoing obstruction and symptoms that are ongoing are secondary to diverticulitis. He has been advised to take his antibiotics he has a penicillin allergy was prescribed Levaquin. Also will follow-up with Dr. Phipps his surgeon. He also states that he wanted pain medicine [place] was prescribed he was advised to only take this if necessary. Return precautions emphasized he was discharged in stable condition. Critical Care Critical Care Time Critical Care Time: No
[2023-09-06 10:19] LABS: Basophils % 0.5 % (0.1-2.0); Eosinophils # 0.1 K/mm3 (0.0-0.4); Eosinophils % 1.6 % (0.1-12.0); Hematocrit 43.9 % (42.0-52.0); Hemoglobin 14.3 g/dL (14.1-18.0); Lymphocytes # 0.9 K/mm3 (0.7-4.5); Lymphocytes % 12.8 % (10-50); Mean Corpuscular HGB Conc 32.6 g/dL (31.8-35.4); Mean Corpuscular Hemoglobin 27.9 pg (27.0-31.2); Mean Corpuscular Volume 85.4 fl (80-94); Mean Platelet Volume 7.8 fl (7.4-10.4); Monocytes # 0.5 K/mm3 (0.1-1.0); Monocytes % 6.8 % (1.7-9.3); Neutrophils # 5.2 K/mm3 (1.8-7.8); Neutrophils % 78.3 % (37.0-80.0); Platelet Count 208 K/mm3 (142-424); Red Blood Count 5.14 M/mm3 (4.60-6.20); Red Cell Distribution Width 15.3 % (11.5-17.5); White Blood Count 6.7 K/mm3 (4.8-10.8)
[2023-09-06 10:21] LABS: Chloride 102 mmol/L (98-107)
[2023-09-06 10:22] LABS: Potassium 4.3 mmoL/L (3.5-5.1); Sodium 137 mmol/L (136-145)
[2023-09-06] MEDS: ONDANSETRON 4MG/2ML VIAL 4 MG IV (10:23)
[2023-09-06] MEDS: MORPHINE 4MG/ML SYRINGE 4 MG IV (10:23)
[2023-09-06] MEDS: LACTATED RINGERS 1000ML 1,000 ML 999 ML IV (10:23)
[2023-09-06 10:24] LABS: Alanine Aminotransferase 32 U/L (12-78); Aspartate Amino Transferase 37 U/L (17-59); Blood Urea Nitrogen 13 mg/dl (9-20); Creatinine Clearance Estimated 93 mL/min (50-200); Estimated Glomerular Filt Rate 83 ml/min (>60); GFR (African American) 101 ML/MIN (>60)
[2023-09-06 10:25] LABS: Albumin Level 4.3 g/dl (3.5-5.0); Albumin/Globulin Ratio 1.5 (1.1-1.8); Alkaline Phosphatase 73 U/L (38-126); Anion Gap 11.3 mEq/L (5-15); Bilirubin,Total 1.2 mg/dl (0.2-1.3); Calcium 9.2 mg/dl (8.4-10.2); Carbon Dioxide 28 mmol/L (22.0-30.0); Globulin 2.9 g/dL (1.3-3.2); Glucose 143 mg/dl (74-100); Lactic Acid 1.2 mmol/L (0.7-2.1); Lipase 322 U/L (23-300); Total Protein,Serum 7.2 g/dl (6.3-8.2)
--- NOTE | 2023-09-06 10:25 | PC.NURSE ---
PT MEDICATED PER EMAR, NO NEEDS AT THIS TIME.
[2023-09-06 10:30] VITALS: BP 134/81; PULSE 74; O2SAT 99
[2023-09-06] MEDS: 0.9 % SODIUM CHLORIDE 50 ML VIAL IV (10:49)
[2023-09-06] MEDS: IOPAMIDOL-370 (76%);100ML BOTTLE 100 ML IV (10:49)
[2023-09-06 11:00] VITALS: BP 137/93; PULSE 72; O2SAT 97
[2023-09-06 11:31] VITALS: BP 164/90; PULSE 65; O2SAT 100
--- NOTE | 2023-09-06 11:56 | PC.NURSE ---
PT ASSISTED TO BR
--- NOTE | 2023-09-06 12:29 | PC.NURSE ---
DR GRANDE AT BEDSIDE TO UPDATE PT AND FAMILY
[2023-09-06 12:48] VITALS: BP 152/85; PULSE 68; RESP 20; TEMP 36.8; O2SAT 98
== END 2023-09-06 12:50 | disposition home or self-care (01) ==
PROVIDERS: Emergency Provider Student in an Organized Health Care Education/Training Program; PCP Family Medicine
DX: R10.32 Left lower quadrant pain (principal); K57.32 Diverticulitis of large intestine without perforation or abscess without bleeding; E11.9 Type 2 diabetes mellitus without complications; I10 Essential (primary) hypertension; Z79.84 Long term (current) use of oral hypoglycemic drugs; Z79.85 Long-term (current) use of injectable non-insulin antidiabetic drugs
CPT/HCPCS: 74174; 80053; 83605; 83690; 85025; 96361; 96374; 96375; 99285; J2270; J2405; J7120; Q9967

== ENCOUNTER 2023-09-14 18:00 | Outpatient (CLI) | payer MEDICARE, SELFPAY | END 2023-09-14 23:59 | disposition home or self-care (01) | LOC: LAB.DROPOF 09-15 10:33 | PROVIDERS: PCP Nurse Practitioner; Visit Provider Nurse Practitioner | DX: L84 Corns and callosities (principal) | CPT/HCPCS: 87102; 87206; 87220 ==

== ENCOUNTER 2023-09-26 16:13 | Outpatient (CLI) | payer MEDICARE, SELFPAY ==
[2023-09-26 16:57] LABS: Basophils % 0.4 % (0.1-2.0); Eosinophils # 0.1 K/mm3 (0.0-0.4); Eosinophils % 0.7 % (0.1-12.0); Hematocrit 40.1 % (42.0-52.0); Hemoglobin 13.1 g/dL (14.1-18.0); Lymphocytes # 0.9 K/mm3 (0.7-4.5); Lymphocytes % 12.3 % (10-50); Mean Corpuscular HGB Conc 32.5 g/dL (31.8-35.4); Mean Corpuscular Volume 86.1 fl (80-94); Mean Platelet Volume 7.7 fl (7.4-10.4); Monocytes # 0.5 K/mm3 (0.1-1.0); Neutrophils % 80.5 % (37.0-80.0); Platelet Count 202 K/mm3 (142-424); Red Blood Count 4.66 M/mm3 (4.60-6.20); Red Cell Distribution Width 15.5 % (11.5-17.5); White Blood Count 7.5 K/mm3 (4.8-10.8)
[2023-09-26 17:15] LABS: Alanine Aminotransferase 26 U/L (12-78); Albumin Level 3.9 g/dl (3.5-5.0); Albumin/Globulin Ratio 1.6 (1.1-1.8); Alkaline Phosphatase 65 U/L (38-126); Anion Gap 12.4 mEq/L (5-15); Aspartate Amino Transferase 32 U/L (17-59); Bilirubin,Total 0.9 mg/dl (0.2-1.3); Blood Urea Nitrogen 18 mg/dl (9-20); Calcium 9.5 mg/dl (8.4-10.2); Carbon Dioxide 25 mmol/L (22.0-30.0); Chloride 102 mmol/L (98-107); Estimated Glomerular Filt Rate 74 ml/min (>60); GFR (African American) 89 ML/MIN (>60); Globulin 2.5 g/dL (1.3-3.2); Glucose 221 mg/dl (74-100); Potassium 4.4 mmoL/L (3.5-5.1); Sodium 135 mmol/L (136-145); Total Protein,Serum 6.4 g/dl (6.3-8.2)
[2023-09-26 17:20] LABS: C-Reactive Protein 1.2 mg/L (0-4)
[2023-09-26 17:31] LABS: Erythrocyte Sedimentation Rate 23 mm/hr (0-20)
[2023-09-26 18:21] LABS: Vitamin B12 997 pg/mL (239-931)
[2023-09-27 10:23] LABS: Thyroid Stimulating Hormone 0.88 uIU/mL (0.465-4.68)
[2023-09-28 12:12] LABS: Rapid Plasma Reagin Ab Titer Non Reactive titer (NonRea<1:1)
[2023-09-29 20:15] LABS: QuantiFERON-TB Gold Plus Positive (Negative)
[2023-11-13 10:53] LABS: Antinuclear Antibodies (ANA) NEGATIVE
== END 2023-09-26 23:59 | disposition home or self-care (01) ==
LOC: LAB 16:16
PROVIDERS: Specialist; PCP Family Medicine; Visit Provider Nurse Practitioner
DX: E11.9 Type 2 diabetes mellitus without complications (principal); E11.621 Type 2 diabetes mellitus with foot ulcer; L97.511 Non-pressure chronic ulcer of other part of right foot limited to breakdown of skin; G93.40 Encephalopathy, unspecified; R41.9 Unspecified symptoms and signs involving cognitive functions and awareness; R41.3 Other amnesia; F41.9 Anxiety disorder, unspecified; R76.12 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 gamma interferon antigen response without active tuberculosis
CPT/HCPCS: 36415; 80050; 80053; 82607; 82746; 83036; 84443; 85025; 85651; 86038; 86140; 86225; 86235; 86480; 86593

== ENCOUNTER 2023-09-26 16:15 | Outpatient (POV) | payer MEDICARE, SELFPAY | END 2023-09-26 23:59 | disposition home or self-care (01) | LOC: SC 16:15 | PROVIDERS: Visit Provider Dermatology | DX: Z00.00 Encounter for general adult medical examination without abnormal findings (principal) ==

== ENCOUNTER 2023-11-02 15:38 | Outpatient (CLI) | payer MEDICARE, SELFPAY ==
[2023-11-02 16:05] LABS: Basophils % 0.5 % (0.1-2.0); Eosinophils # 0.1 K/mm3 (0.0-0.4); Hematocrit 41.6 % (42.0-52.0); Hemoglobin 13.6 g/dL (14.1-18.0); Mean Corpuscular HGB Conc 32.8 g/dL (31.8-35.4); Mean Corpuscular Hemoglobin 28.2 pg (27.0-31.2); Mean Corpuscular Volume 85.8 fl (80-94); Monocytes # 0.4 K/mm3 (0.1-1.0); Monocytes % 6.8 % (1.7-9.3); Neutrophils # 4.8 K/mm3 (1.8-7.8); Neutrophils % 75.7 % (37.0-80.0); Platelet Count 227 K/mm3 (142-424); Red Blood Count 4.85 M/mm3 (4.60-6.20); Red Cell Distribution Width 15.4 % (11.5-17.5); White Blood Count 6.3 K/mm3 (4.8-10.8)
[2023-11-02 17:01] LABS: Free T4 (Free Thyroxine) 1.04 ng/dl (0.78-2.19)
[2023-11-02 17:14] LABS: Thyroid Stimulating Hormone 1.24 uIU/mL (0.465-4.68)
[2023-11-02 17:31] LABS: Albumin Level 4.2 g/dl (3.5-5.0); Chloride 107 mmol/L (98-107); Potassium 4.4 mmoL/L (3.5-5.1); Sodium 138 mmol/L (136-145)
[2023-11-02 17:33] LABS: Blood Urea Nitrogen 21 mg/dl (9-20); Estimated Glomerular Filt Rate 66 ml/min (>60); GFR (African American) 80 ML/MIN (>60)
[2023-11-02 17:34] LABS: Alanine Aminotransferase 31 U/L (12-78); Alkaline Phosphatase 60 U/L (38-126); Anion Gap 12.4 mEq/L (5-15); Aspartate Amino Transferase 43 U/L (17-59); Bilirubin,Direct 0.3 mg/dl (0.0-0.4); Bilirubin,Indirect 0.8 mg/dL (0.0-0.9); Bilirubin,Total 1.1 mg/dl (0.2-1.3); Bilirubin,Unconjugated 0.7 mg/dL (0.0-1.1); Calcium 8.8 mg/dl (8.4-10.2); Carbon Dioxide 23 mmol/L (22.0-30.0); Cholesterol 154 mg/dl (140-200); Glucose 164 mg/dl (74-100); Total Protein,Serum 6.7 g/dl (6.3-8.2); Triglycerides 139 mg/dl (30-150); VLDL Cholesterol 28 mg/dL (0-40)
[2023-11-02 17:35] LABS: HDL Cholesterol 77 mg/dl (40-60); Magnesium 1.9 mg/dl (1.6-2.3)
[2023-11-02 17:45] LABS: Direct LDL Cholesterol 47.64 mg/dL (100-129)
== END 2023-11-02 23:59 | disposition home or self-care (01) ==
LOC: LAB 15:43
PROVIDERS: Visit Provider Nurse Practitioner
DX: Z01.818 Encounter for other preprocedural examination (principal); I25.10 Atherosclerotic heart disease of native coronary artery without angina pectoris; R00.0 Tachycardia, unspecified; R94.31 Abnormal electrocardiogram [ECG] [EKG]; I73.9 Peripheral vascular disease, unspecified; L97.511 Non-pressure chronic ulcer of other part of right foot limited to breakdown of skin
CPT/HCPCS: 36415; 80048; 80061; 80076; 83735; 84439; 84443; 85025

== ENCOUNTER 2023-11-03 08:41 | Day surgery (SDC) | payer MEDICARE, SELFPAY ==
[2023-11-03] VITALS (12 sets, daily range): BP systolic 142–188; BP diastolic 51–107; PULSE 60–89; RESP 16–18; TEMP 36.6; O2SAT 97–99; BMI 32.9
--- NOTE | 2023-11-03 07:00 | IR_ITS ---
APPROVED REPORT Patient Location: Outpatient [facility] Worker: KIRTI Jernigan RT (R) PROCEDURES Catheter placement in the abdominal aorta Abdominal aortography Repositioning of the cath into the abdominal aorta Bilateral iliofemoral runoff INDICATION Teresa claudication class , Peripheral artery disease, Necrotic great toe Informed consent was obtained prior to the procedure. COMPLICATIONS None Estimated Blood Loss: Less than 10 mls TECHNIQUE 1% lidocaine used anesthetize right groin the right femoral to be accessed via the center technique and a 5 [place] sheathin the right femoral artery. A pigtail catheter was advanced under fluoroscopic guidance and abdominal aortography was performed. The catheter was then repositioned and bilateral iliofemoral was performed. At the end the procedure the apparatus was removed the patient was transferred to the postop putting in stable condition for sheath removal ANGIOGRAPHIC RESULTS Abdominal aorta is widely patent Bilateral common internal and external iliac arteries are patent Bilateral common femoral arteries profunda femoris and superficial femoral arteries are widely patent Bilateral popliteal arteries widely patent The right anterior posterior tibialis artery and peroneal arteries are widely patent in the proximal segment. 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 Xarelto 2.5 twice daily plus aspirin 81 mg daily 2. Supportive care 3. Treatment of venous insufficiency which is likely contributing to the sequelae Electronically signed by : Shay Biggs MD 11/03/2023 12:42:22
[2023-11-03 09:10] LABS: POC Glucose,Bedside 125 (70-110)
[2023-11-03] MEDS: HEPARIN 1,000 UNITS/500ML NS (CATH LAB) 3000 UNIT IV (10:54)
[2023-11-03] MEDS: 0.9 % SODIUM CHLORIDE 500 ML 25 ML IV (10:54)
[2023-11-03] MEDS: LIDOCAINE 1% 10ML MDV 20 ML IJ (10:54)
[2023-11-03] MEDS: FENTANYL 100MCG/2ML VIAL 50 MCG IV (11:19)
[2023-11-03] MEDS: MIDAZOLAM HCL 1MG/1ML 5ML VIAL 1 MG IV (11:19)
[2023-11-03] MEDS: IOPAMIDOL-250 (51%) 100ML BOT 100 ML IV (13:26)
== END 2023-11-03 14:44 | disposition home or self-care (01) ==
PROVIDERS: PCP Family Medicine; Visit Provider Internal Medicine
DX: I70.235 Atherosclerosis of native arteries of right leg with ulceration of other part of foot (principal); E11.621 Type 2 diabetes mellitus with foot ulcer; L97.511 Non-pressure chronic ulcer of other part of right foot limited to breakdown of skin; Z79.899 Other long term (current) drug therapy; Z79.02 Long term (current) use of antithrombotics/antiplatelets; Z79.4 Long term (current) use of insulin
CPT/HCPCS: 36247; 75716; 82962; 99152; C1725; C1769; C1894; J1644; J2250; J3010; Q9966

== ENCOUNTER 2023-11-17 09:48 | Outpatient (CLI) | payer MEDICARE, SELFPAY ==
--- NOTE | 2023-11-17 10:00 | CA_ITS ---
APPROVED REPORT EXAM: Comprehensive 2D, Doppler, and color-flow Echocardiogram Registered Nurse Cardiac Telemetry: Mary Powell CRT Ht: 5 ft 9 in Wt: 224lbs BSA: 2.17 BP: 120/68 mmHg Indications: Abnormal ECG, Shortness of Breath, Diabetes, Peripheral Edema, Hyperlipidemia, Hypertension/HDD 2D Dimensions LA Volume 53.90 mL LA Volume Index 24.30 mL/m2 (M/F) 16-34 M-Mode Dimensions RVDd 2.50 cm (0.9-2.6) LA Diam 2.89 cm (1.9-4.0) LVDd 5.00 cm (3.5-5.7) LVDs 3.53 cm (3.5-5.7) IVSd 1.32 cm (0.6-1.1) PWd 0.57 cm (0.6-1.1) EF (Teich) 56.10% FS 29.40% EDV (Teich) 118.20 mL TAPSE 2.42 (<1.7) ESV (Teich) 51.90 mL LV Diastology E Decel Time 150 (160-240 msec) E/A Ratio 0.74 MED A' 11.00 cm/s LAT A' 12.90 cm/s Aortic Valve AO Peak GR. 7.60 mmHg Mitral Valve MV E Max Parmjit. 76.0 (40-130 cm/s) MV A Velocity 102.0 (40-130 cm/s) E/A Ratio 0.74 MV PHT 44.0 ms Pulmonary Valve PV Peak Velocity 129.0 (50-150 cm/s) Tricuspid Valve TR P. Velocity 117.00 cm/s RAP Estimate 10.00 mmHg RVSP 15.50 mmHg Left Ventricle The left ventricle is normal size. The left ventricular systolic function is normal. The left ventricular ejection fraction is within the normal range. There is increased LV wall thickness. There is normal LV segmental wall motion. The left ventricular diastolic function is normal. LVEF is 60%. Right Ventricle The right ventricle is normal size. The right ventricular systolic function is normal. Atria The left atrium size is normal. The right atrium size is normal. There is no Doppler evidence of interatrial shunt. Aortic Valve The aortic valve is mildly thickened. There is no aortic valvular stenosis. No aortic regurgitation is present. Mitral Valve The mitral valve is normal in structure. No evidence of mitral valve stenosis. There is no mitral valve regurgitation noted. Tricuspid Valve The tricuspid valve leaflets are thin and pliable. Trace tricuspid regurgitation. There is insufficient TR jet to estimate RVSP. Pulmonic Valve The pulmonary valve is normal in structure. Trace pulmonic regurgitation. Great Vessels The aortic root is normal in size. The ascending aorta is not well-visualized. IVC is normal in size and collapses >50% with inspiration. Pericardium There is no pericardial effusion. Other Information Study Quality: Fair Conclusion Normal biventricular systolic function. No significant valvular stenosis or regurgitation. Electronically signed by : Amara Mckeon MD 11/21/2023 15:40:53
== END 2023-11-17 23:59 | disposition home or self-care (01) ==
LOC: RT 09:48
PROVIDERS: PCP Family Medicine; Visit Provider Nurse Practitioner
DX: Z01.818 Encounter for other preprocedural examination (principal); R94.31 Abnormal electrocardiogram [ECG] [EKG]; R00.0 Tachycardia, unspecified; I11.9 Hypertensive heart disease without heart failure; I25.10 Atherosclerotic heart disease of native coronary artery without angina pectoris
CPT/HCPCS: 93306

== ENCOUNTER 2023-11-24 11:22 | Outpatient (CLI) | payer MEDICARE, SELFPAY ==
--- NOTE | 2023-11-24 | CA_ITS ---
APPROVED REPORT Exam: Pharmacologic Technologist: Nicolette Montgomery, Ht: 5 ft 9 in Wt: 224 lbs BSA: 2.17 m2 HR: 78 bpm BP: 122/68 mmHg Rhythm: Nsr, normal Medical History Medical History: HTN, , Hyperlipidemia, Diabetes Medications: Simvastatin,,,,, Losartan,,,,, Flonase,,,,, TAMSULOSIN,,,,, Albuterol,,,,, Tramadol,,,,, CloPIdogrel,,,,, Cyclobenzaprine,,,,, Vistaril,,,,, MuPRIROCIN,,,,, NYstatin,,,,, Isoniazid,,,,, Allergies: penicillins Cardiac Risk Factors: HTN, Hyperlipidemia, Diabetes , FHX of CAD Stress Test Details Test: LEXISCAN HR Resting HR: 67 bpm Max Heart Rate (APMHR): 149 bpm Max HR Achieved: 95 bpm Target HR (85% APMHR): 127 bpm % of APMHR: 64 Recovery HR: 78 bpm BP Resting BP: 118/69 mmHg Max BP: 132/66 mmHg Recovery BP: 122.0/68.0 mmHg ECG Resting ECG: NSR Stress ECG: No significant ST changes Arrhythmia: Occasional PVCs Clinical Exercise duration: 04:00 min Highest Stage Achieved: Exercise capacity: 1.0 METs Stress ECG Conclusion Pt had SOA, mild chest pressure Occasional PVCs No significant ST changes Conclusion: Unremarkable lexiscan stress. Myoview images reported separately. Test Summary REST 05:16 . . 67 . 118/ 69 . . Stage 1 01:00 . . 75 . . . . Stage 2 01:00 . . 95 . 116/ 57 . . Stage 3 01:00 . . 88 . 132/ 66 . . Stage 4 01:00 . . 82 . 113/ 64 . Stop exercise at 04:00 RECOVERY 01:00 . . 83 . . . . RECOVERY 02:00 . . 80 . . . . RECOVERY 03:00 . . 76 . 99/ 69 . . RECOVERY 03:56 . . 77 . 122/ 68 . . Electronically signed by : Amara Mckeon MD 11/27/2023 22:59:15
--- NOTE | 2023-11-24 11:22 | NM_ITS ---
APPROVED REPORT Exam: Nuclear Stress Test Indication: cad, 2 stents, htn, diabetes, hyperlipidemia, fm hx, sob, abn ekg, pre-op Patient Location: Outpatient Stress Tech: Nicole Lo NM Tech:Rose Geiger, ARRT RT (R)(N)(M) Ht: 5 ft 9 in Wt: 225 lbs HR: 67 bpm BP: 118/69 mmHg BSA: 2.17 m2 TID: 1.28 BMI: 33.2 History: cad, 2 stents, htn, diabetes, hyperlipidemia, fm hx, sob, abn ekg, pre-op Procedure: Patient received 0.4 mg of intravenous AdenosineLexiscan, resting heart rate 67 bpm, resting blood pressure 118/69 mmHg, with Lexiscan maximum heart rate achieved was 95 bpm which is % of the maximum predicted heart rate and blood pressure was 116/57 mmHg. With Lexiscan, patient denied any complaint of chest pain. Cardiac Stress and Resting SPECT Images: Cardiac Stress and Resting SPECT images were obtained using technetium 99m Myoview 31.7 mCi stress and 10.62 mCi at rest. Resting and stress imaging in supine position demonstrate a medium sized, moderate, fixed perfusion defect in the basal to mid inferior LV wall. This is no longer visualized with prone stress imaging. Findings are suggestive of diaphragmatic attenuation. There is increase in transient ischemic dilatation ratio (TID 1.28), suggestive of possible multivessel disease or balanced ischemia. Gated imaging demonstrates normal global and regional LV systolic function. LVEF is calculated at 56%. Conclusion: Technically difficult study. Diaphragmatic attenuation is present. No focal fixed or reversible perfusion defects. There is increase in transient ischemic dilatation ratio (TID 1.28), suggestive of possible multivessel disease or balanced ischemia. Gated imaging demonstrates normal global and regional LV systolic function. LVEF is calculated at 56%. Electronically signed by : Amara Mckeon MD 11/27/2023 23:01:13
[2023-11-24] MEDS: SODIUM CHLORIDE 0.9% 10ML SYR (RAD ONLY) 10 ML IV ×2 (11:30→12:50)
[2023-11-24] MEDS: REGADENOSON 0.4MG/5ML SYRINGE 0.4 MG IV (12:50)
[2023-11-24] MEDS: ISOTOPE MYOVIEW (PER STUDY) 1 DOSE IV (14:29)
== END 2023-11-24 23:59 | disposition home or self-care (01) ==
LOC: RAD 11:22
PROVIDERS: PCP Family Medicine; Visit Provider Nurse Practitioner
DX: R94.31 Abnormal electrocardiogram [ECG] [EKG] (principal); Z01.818 Encounter for other preprocedural examination; I25.10 Atherosclerotic heart disease of native coronary artery without angina pectoris; R06.09 Other forms of dyspnea
CPT/HCPCS: 78452; 93017; 93018; A9502; J2785

== ENCOUNTER 2023-11-29 14:57 | Outpatient (CLI) | payer MEDICARE, SELFPAY ==
--- NOTE | 2023-11-29 14:57 | CT_ITS ---
FINAL REPORT TECHNIQUE: Axial CT images were performed from the lung apices through the upper abdomen. Coronal reformats were submitted. High-resolution technique was utilized with inspiration and expiration on supine images and inspiration on prone images. CLINICAL HISTORY: NODULE HIGH RESOLUTION- INSPIRATION, EXPIRATION , PRONE INSPIRATION COMPARISON: 11/18/2022 FINDINGS: There is no axillary adenopathy. There is no hilar or mediastinal mass or adenopathy. Heart size is normal. There is no pericardial or pleural effusion. There is mild predominant peripheral fibrosis, greatest in the lung bases. There is no evidence of air trapping. There is diffuse bronchial wall thickening. No pulmonary mass or suspicious nodule is identified. The patient is status post cholecystectomy. Multiple left renal masses do not appear to represent simple cysts, complex cysts are favored. These are stable since previous. IMPRESSION: Mild interstitial fibrosis. Diffuse bronchial wall thickening. Reviewed, Interpreted and Dictated by Kana Cabrera III, MD Transcribed by Shahla Iglesias Authenticated and [facility]
== END 2023-11-29 23:59 | disposition home or self-care (01) ==
LOC: RAD 14:57
PROVIDERS: PCP Family Medicine; Visit Provider Internal Medicine Pulmonary Disease
DX: J84.9 Interstitial pulmonary disease, unspecified (principal)
CPT/HCPCS: 71250

== ENCOUNTER 2023-12-01 12:44 | Outpatient (CLI) | payer MEDICARE, SELFPAY ==
--- NOTE | 2023-12-01 12:45 | MR_ITS ---
FINAL REPORT CLINICAL HISTORY: SHOULDER PAIN.HX SHOULDER SURGERY IN 2002. WEAKNESS AND PAIN IN ARM. COMPARISON: None FINDINGS: Multiplanar MR imaging of the right shoulder was performed without contrast. There is motion on all sequences which limits overall image quality. There are postoperative changes of a previous rotator cuff repair. There is tendinosis of the supraspinatus and infraspinatus tendons. There is and intrasubstance tear of the distal infraspinatus tendon involving less than 50% of the thickness of that tendon. No definite full-thickness tear of any of the rotator cuff tendons is seen. Postoperative changes are present in the acromioclavicular joint as well, which obscures detail of that joint. There is moderate fluid present in the subacromial/subdeltoid bursa. No definite labral tear is seen. The proximal long head of the biceps tendon is not seen, and there may be either severe tendinosis or a tear of the biceps tendon. A small glenohumeral joint effusion is seen. There is no evidence of fracture or dislocation. The musculature is intact. There is a focus of abnormal signal in the anterior and superior humeral head measuring 22 mm in size, that is of uncertain etiology but may represent either postoperative change or osteonecrosis. There is a 21 mm loose body present in the subcoracoid recess. IMPRESSION: Motion limits overall image quality, as well as magnetic susceptibility artifact from prior surgery. Supraspinatus and infraspinatus tendinosis, with an intrasubstance tear of the distal infraspinatus tendon involving less than 50% of the thickness of that tendon. The proximal LHBT is not seen, which may be secondary either to severe tendinosis or a tear. There is abnormal signal in the anterior and superior humeral head as described, of uncertain etiology but may represent postoperative change or osteonecrosis. 21 mm loose body is present in the subcoracoid recess. Reviewed, Interpreted and Dictated by Kana Cabrera III, MD Transcribed by Audrey Hinson Authenticated and [facility]
== END 2023-12-01 23:59 | disposition home or self-care (01) ==
LOC: RAD 12:44
PROVIDERS: PCP Family Medicine; Visit Provider Orthopaedic Surgery Adult Reconstructive Orthopaedic Surgery
DX: M25.511 Pain in right shoulder (principal)
CPT/HCPCS: 73221

== ENCOUNTER 2023-12-13 14:51 | Outpatient (RCR) | payer MEDICARE, SELFPAY ==
--- NOTE | 2023-12-13 16:40 | HMH.PTOPWND ---
Rehab Outpt Wound Evaluation Rehab OP Wound Evaluation Start: 12/13/23 16:21 Freq: Status: Active Protocol: Document 12/13/23 16:22 YOSEPH (Rec: 12/13/23 16:38 PHORVINEET [id number]) E-signed By Scott Gallegos, PT Subjective/History History History This is the initial PT eval for Marietta Alford III, 73 yowm who presents with B LE lymphedema chronically x ~ 20 yrs, R worse than L. He reports pain and numbness with increased edema. He also c/o difficulty with dressing due to tight fitting clothing. He reports PMH of R TKA, L PKA, PAD, HTN, DM, CAD. He reports his goal for treatment is to obtain new and appropriate compression garments because his current ones have become worn out. Subjective Subjective Currently pain is 0/10, at worst pain is 3/10 in R LE. 3+ pitting edema noted to B LE from knee distally. R LE with MODERATE fibrotic edema with increased hyperkeratosis, erythema, and papillomas. 0/4 TTP noted to B lower legs at this time. Length of LE from Knee to Floor: R= 49.5 cm, L= 50.0 cm. New diagnosis of cancer in past 12 No months? Lymphedema Eval Classification of Lymphedema Secondary Lymphedema Yes Stemmer's sign Stemmer's Sign yes Stage of Lymphedema Lymphedema stages Stage III (Non-pitting, fibrosis and sclerosis, skin changes) Skin Changes Dry Skin Yes Skin Folds Yes Hyperkeratosis Yes Papillomatosis Yes Redness Yes Brittle Uneven Nails Yes Discoloration of Skin Yes Other Changes Yes Pain Scale Pain Scale (0-10) 3 Affected Extremities Areas Affected by Lymphedema/Edema Right Lower Extremity,Left Lower Extremity Lower Extremity Measurements Right MTP Measurement (cm) 29.1 Heel Measurement (cm) 38.1 10 cm Proximal to Lateral Malleoli 43.2 Measurement (cm) 20 cm Proximal to Lateral Malleoli 51.3 Measurement (cm) 30 cm Proximal to Lateral Malleoli 48.3 Measurement (cm) 40 cm Proximal to Lateral Malleoli 42.9 Measurement (cm) 50 cm Proximal to Lateral Malleoli 48.7 Measurement (cm) 60 cm Proximal to Lateral Malleoli 0 Measurement (cm) Lower Extremity Measurement Total (cm) 301.6 Left MTP Measurement (cm) 27.7 Heel Measurement (cm) 35.9 10 cm Proximal to Lateral Malleoli 34.1 Measurement (cm) 20 cm Proximal to Lateral Malleoli 41.3 Measurement (cm) 30 cm Proximal to Lateral Malleoli 40.5 Measurement (cm) 40 cm Proximal to Lateral Malleoli 38.8 Measurement (cm) 50 cm Proximal to Lateral Malleoli 45.4 Measurement (cm) 60 cm Proximal to Lateral Malleoli 0 Measurement (cm) Lower Extremity Measurement Total (cm) 263.7 Wound Problems/Impairments Impairments Problems/Impairmments Impaired Endurance,Impaired Dressing,Impaired Shower/ Bathing,Impaired Household Care,Increased Edema, Lymphedema Present,Subjective C/O Pain,Impaired Self Care/ Self Management Prognosis Rehab Potential Good Comment Skilled therapy services are indicated to reduce overall lymphedema burden and return pt to PLOF. Clinical Impression Consistent with Diagnosis Yes Short Term Goals Number of Weeks 2 Decrease Edema Yes: 2+ pitting edema B LE Decrease Lymphedema Yes: MILD fibrotic edema R LE Patient to Understand Lymphedema Yes Treatment and Exercises Decrease Girth Measurments by (cm) Yes: B LE total by 5 cm ea Waste Chopper Goals Number of Weeks 4 Decrease Edema Yes: 1+ pitting edema B LE Decrease Lymphedema Yes: No fibrotic edema R LE Decrease Subjective C/O Pain Yes: 0/10 R LE Patient to be Ind w/ HEP Yes Patient to Adhere Lymphedema Precautions Yes Decrease Girth Measurments by (cm) Yes: B LE total by 20 cm ea Outpatient Therapy Plan of Care Treatment Plan May Include Therapeutic Exercise Including Home Yes Exercise Program Manual Therapy Techniques Yes Neuromuscular Re-education Yes Therapeutic Activities to Return to Yes Previous Functional/Work Level ADL/Self Care Education Yes Orthotics/Bracing/Splinting Yes Manual Lymphatic Drainage Yes Eval/Re-Eval Yes Frequency Times per week 1-2 x/wk Duration Number of Weeks 4 wks Addendums This patient is a candidate for social No or vocational rehab? Patient/Guardian verbally acknowledges Yes understanding of treatment program and consents to further treatment? Patient/Guardian verbally acknowledges Yes understanding of diagnosis, prognosis and goals for treatment? Eval Complexity PT Charges 85036 - High Complexity PHYSICIAN CERTIFICATION: I certify the specified therapy services for Marietta Alford III are required, authorized, and reviewed every 30 days.
== END 2023-12-13 14:55 | disposition home or self-care (01) ==
LOC: PT 14:51
PROVIDERS: Visit Provider Family Medicine
DX: I89.0 Lymphedema, not elsewhere classified (principal)
CPT/HCPCS: 97163

== ENCOUNTER → 2023-12-28 20:13 | Outpatient (CLI) | payer MEDICARE, SELFPAY | LOC: SL 20:17 | PROVIDERS: PCP Family Medicine; Visit Provider Specialist | DX: G47.33 Obstructive sleep apnea (adult) (pediatric) (principal) | CPT/HCPCS: 95810 ==

== ENCOUNTER 2024-01-19 08:19 | Day surgery (SDC) | payer MEDICARE, SELFPAY ==
[2024-01-19] VITALS (12 sets, daily range): BP systolic 154–181; BP diastolic 77–99; PULSE 60–83; RESP 16–20; TEMP 36.6; O2SAT 96–99; BMI 33.5
--- NOTE | 2024-01-19 07:07 | IR_ITS ---
APPROVED REPORT Patient Location: Outpatient PROCEDURES Selective coronary angiogram Drug-eluting stent deployment to the ostial proximal dominant circumflex artery Drug-eluting stent deployment to the ostial proximal LAD Drug-eluting stent deployment to the proximal mid distal left main artery INDICATION Coronary artery disease, Worsening angina pectoris, Patient not deemed a candidate for coronary artery bypass grafting Informed consent was obtained prior to the procedure. COMPLICATIONS none Estimated Blood Loss: less than 10ml TECHNIQUE One percent lidocaine used to anesthetize the right anterior aspect of the wrist. The right radial artery was accessed via the Seldinger technique. A 6 [place] sheath was placed in the right radial artery. 2.5 mg of Verapamil, 800 mcg of nitroglycerin, 1mg Lidocaine and 5000 U Heparin were given through the arterial sheath. The JL 3 guide catheter was used to perform selective coronary angiogram. At the end of the diagnostic angiogram therapeutic heparin was administered giving a therapeutic ACT and the guide catheter was placed in left main artery followed by wire was placed down the LAD and the circumflex artery. A 3.5 x 38 mm [place] frontier stent was placed in the ostial proximal portion of the LAD and deployed at 20 prakash. Multiple balloons were then used to try to reenter the circumflex artery however the struts stuck out just far enough into the left main artery obstructing the LAD where the smallest of balloons would not pass despite excellent guide support. A 2.5, 1.5, and 1.25 mm balloon was used to attempt passage through the struts however they all failed. At this point the wire was pulled back from the circumflex artery and then rewired through the struts in the ostial LAD going into the circumflex artery. This allowed passage of a 1.5 mm balloon which then dilated the struts followed by further upsizing with a higher size balloon. This allowed delivery of a 4 mm x 30 mm [place] frontier stent to be deployed in the mid left main artery extending into the proximal circumflex artery. This was deployed at 12 prakash. The LAD was then rewired through the left main stent going back into the LAD and predilatation with a 2 mm balloon was made. Following this a 4 mm x 15 mm [place] frontier stent was placed in the proximal left main artery extending into the ostial proximal LAD and then deployed at 24 prakash. Additional ballooning was performed in the circumflex artery with a 4 mm x 12 mm balloon being deployed in the ostial circumflex artery and proximal circumflex artery up to 24 prakash. The last inflation was from the left main artery going into the LAD. ZARINA-3 flow was present before and after the procedure. After achieving excellent angiographic results the apparatus was removed the sheath was removed and hemostasis was achieved using TR banding patient was transferred to the postop putting in stable condition a total of 3 stents was used during the procedure while 7 different balloons were used throughout the procedure. The right coronary artery was known to be nondominant vestigial. At the end the revascularization angiography of the vestigial right coronary artery was performed. The apparatus was removed the sheath was removed good hemostasis was achieved using TR banding patient was transferred to the postop putting in stable condition ANGIOGRAPHIC RESULTS The left main artery Has a distal 40% stenosis The left anterior descending artery Has an ostial 40% stenosis followed by additional 40 to 50% stenosis followed by a complex concentric proximal stenosis. The mid LAD has additional 30% stenoses. The LAD is large and wraps the apex The circumflex artery Is a large dominant vessel and has an ostial 50% stenosis. The first obtuse marginal artery/ramus intermedius has a proximal concentric 70% stenosis the remaining circumflex artery is widely patent The right coronary artery Vestigial normal The DALTON ventriculogram reveals Not performed The left ventricular end-diastolic pressure Not measured IMPRESSION Coronary disease as described above Successful stenting of the left main artery with reconstruction of the distal left main artery with excellent stenting and revascularization of the ostial and proximal LAD with successful revascularization of the ostial proximal circumflex artery and proximal left main artery extending distally into both the circumflex and LAD as described above PLAN 1. Dual antiplatelet therapy 2. Cardiac rehabilitation 3. Avoidance of tobacco products 4. Risk factor modification 5. LDL less than 55 to achieve that high intensity statin Electronically signed by : Shay Biggs MD 01/19/2024 12:34:15
[2024-01-19 09:21] LABS: Basophils % 0.5 % (0.1-2.0); Eosinophils # 0.1 K/mm3 (0.0-0.4); Eosinophils % 2.1 % (0.1-12.0); Hematocrit 43.5 % (42.0-52.0); Hemoglobin 14.6 g/dL (14.1-18.0); Lymphocytes % 21.4 % (10-50); Mean Corpuscular HGB Conc 33.7 g/dL (31.8-35.4); Mean Corpuscular Hemoglobin 28.4 pg (27.0-31.2); Mean Corpuscular Volume 84.2 fl (80-94); Mean Platelet Volume 7.9 fl (7.4-10.4); Monocytes # 0.5 K/mm3 (0.1-1.0); Platelet Count 162 K/mm3 (142-424); Red Blood Count 5.16 M/mm3 (4.60-6.20); Red Cell Distribution Width 14.5 % (11.5-17.5); White Blood Count 4.5 K/mm3 (4.8-10.8)
[2024-01-19 09:43] LABS: Chloride 107 mmol/L (98-107); Sodium 136 mmol/L (136-145)
[2024-01-19 09:46] LABS: Blood Urea Nitrogen 22 mg/dl (9-20); Calcium 8.8 mg/dl (8.4-10.2); Carbon Dioxide 24 mmol/L (22.0-30.0); Creatinine Clearance Estimated 99 mL/min (50-200); Estimated Glomerular Filt Rate 74 ml/min (>60); GFR (African American) 89 ML/MIN (>60); Glucose 180 mg/dl (74-100)
[2024-01-19] MEDS: NITROGLYCERIN 800MCG/8ML SYR (CATH LAB) 800 MCG IA (10:40)
[2024-01-19] MEDS: VERAPAMIL 2.5MG/ML 2ML VIAL 2.5 MG IV (10:40)
[2024-01-19] MEDS: LIDOCAINE 1% 10ML MDV 20 ML IJ (10:40)
[2024-01-19] MEDS: MIDAZOLAM HCL 1MG/ML 5ML VIAL 1 MG IV (10:41)
[2024-01-19] MEDS: HEPARIN 1,000 UNITS/500ML NS (CATH LAB) 3000 UNIT IV (10:41)
[2024-01-19] MEDS: 0.9 % SODIUM CHLORIDE 500 ML 25 ML IV (10:41)
[2024-01-19] MEDS: FENTANYL 100MCG/2ML VIAL 50 MCG IV (10:41)
[2024-01-19] MEDS: HEPARIN 1,000 UNITS/ML 10ML VIAL (CATH LAB) 10000 UNIT IV (10:42)
[2024-01-19] MEDS: CLOPIDOGREL 300MG TABLET 300 MG PO (12:04)
[2024-01-19] MEDS: diphenhydrAMINE 50MG/ML VIAL 50 MG IV (12:05)
[2024-01-19] MEDS: IOPAMIDOL-370 (76%);100ML BOTTLE 120 ML IV (12:43)
[2024-01-19 14:57] LABS: CATHL Activated Clotting Time > 400 SEC (74-125)
== END 2024-01-19 14:50 | disposition home or self-care (01) ==
PROVIDERS: PCP Family Medicine; Visit Provider Internal Medicine
DX: I25.118 Atherosclerotic heart disease of native coronary artery with other forms of angina pectoris (principal); I10 Essential (primary) hypertension; Z86.16 Personal history of COVID-19; Z22.7 Latent tuberculosis; E11.9 Type 2 diabetes mellitus without complications; I89.0 Lymphedema, not elsewhere classified; I65.23 Occlusion and stenosis of bilateral carotid arteries; Z79.899 Other long term (current) drug therapy
CPT/HCPCS: 36415; 80048; 85025; 85347; 92928; 93454; 99152; 99153; C1725; C1769; C1874; C9600; J1200; J1644; J2250; J3010; Q9967

== ENCOUNTER 2024-01-22 17:08 | Observation (INO) | payer MEDICARE, SELFPAY ==
[2024-01-22] VITALS (9 sets, daily range): BP systolic 91–124; BP diastolic 57–83; PULSE 67–136; RESP 15–23; TEMP 36.4–36.7; O2SAT 93–99; BMI 32.9; BMI 33.0
--- NOTE | 2024-01-22 17:14 | ECG_ITS ---
APPROVED REPORT Exam: Resting ECG HR:142 bpm ECG Measurements Heart Rate 142 AXES QRSd 90 QRS 66 QT 299 T 65 QTc 381 Conclusion ATRIAL FLUTTER/TACHYCARDIA WITH RAPID VENTRICULAR RESPONSE NONSPECIFIC ST & T-WAVE ABNORMALITY ABNORMAL RHYTHM ECG UNCONFIRMED REPORT Electronically signed by : De Smith, 01/22/2024 22:57:55
--- NOTE | 2024-01-22 17:15 | XR_ITS ---
PROCEDURE INFORMATION: Exam: XR Chest Exam date and time: 01/22/2024 5:21 PM Age: 73 years old Clinical indication: Shortness of breath; Additional info: SOA TECHNIQUE: Imaging protocol: Radiologic exam of the chest. Views: 1 view. COMPARISON: CT HR CHEST X3 11/29/2023 3:00 PM FINDINGS: Lungs: There are some consolidative changes of the medial right lung base which are concerning for infection. Pleural spaces: No large effusion or pneumothorax. Heart/Mediastinum: Stable cardiac and mediastinal contours. Bones/joints: Surgical anchors are present in the right humeral head. IMPRESSION: There are some consolidative changes of the medial right lung base which are concerning for infection.
--- NOTE | 2024-01-22 17:18 | ED_ITS ---
<Statement entered by Lele Smith MD - 01/22/24 22:41> I was consulted by the DIPAK, and we discussed the complexity of the problems being addressed. I approved the treatment and management plan for this patient's care in the emergency department, thus performing a substantive portion of the medical decision making. Lele Smith MD, DARLENE, FACEP Discharge Plan Disposition Patient Disposition: Admitted Condition: Fair Chief Complaint: Shortness of Breath/Dyspnea Prescriptions Prescriptions: No Action cyclobenzaprine 5 mg tablet 5 mg PO TIDP PRN (Reason: Muscle spasms) 90 Days Qty: 90 lidocaine 4 % adhesive patch,medicated 1 patch topical DAILY Qty: 30 0RF Rx Instructions: may leave on for up to 12 hrs tramadol 50 mg tablet 50 mg PO BIDP PRN (Reason: pain) albuterol sulfate 90 mcg/actuation HFA aerosol inhaler 2 puff inhalation BIDP PRN (Reason: SOB) simvastatin 20 mg tablet See Rx Instructions .ROUTE .COMPLEX Qty: 90 3RF Dose Instruction: TAKE 1 TABLET DAILY FOR HIGH CHOLESTEROL Rx Instructions: TAKE 1 TABLET DAILY FOR HIGH CHOLESTEROL (DME) blood-glucose meter [OneTouch Ultra2 Meter] Misc See Rx Instructions .ROUTE .MEDSUPPLY Qty: 1 Rx Instructions: As directed (DME) OneTouch Ultra Test Strip See Rx Instructions .ROUTE .MEDSUPPLY Qty: 10 Rx Instructions: As directed (DME) lancing device Misc See Rx Instructions .ROUTE .MEDSUPPLY Qty: 1 Rx Instructions: As directed (DME) blood glucose control, normal [OneTouch Ultra Control] Solution See Rx Instructions .ROUTE .MEDSUPPLY Qty: 1 Rx Instructions: As directed (DME) Ultra Thin Lancets 31 gauge misc See Rx Instructions .ROUTE .MEDSUPPLY Qty: 100 Rx Instructions: As directed albuterol sulfate [Ventolin HFA] 90 mcg/actuation HFA aerosol inhaler 2 inh inhalation Q6H PRN (Reason: shortness of breath or wheezing) 90 Days Qty: 18 3RF pyridoxine (vitamin B6) 50 mg tablet 50 mg PO DAILY Qty: 90 0RF colistin (colistimethate Na) 150 mg recon soln 150 mg IM diclofenac sodium 1.5 % drops topical Patient Comments: APPLY TO AFFECTED NAILS BEFORE USING SOLUTION/OINTMENT TREATMENT (30 DAY SUPPLY) aspirin [Adult Low Dose Aspirin] 81 mg tablet,delayed release (DR/EC) 81 mg PO DAILY Qty: 30 5RF rivaroxaban 15 mg tablet 15 mg PO Q24H Qty: 30 0RF furosemide 20 mg tablet 20 mg PO DAILY Qty: 30 0RF bisoprolol fumarate 5 mg tablet 5 mg PO DAILY Qty: 30 0RF fluticasone propionate 50 mcg/actuation spray,suspension See Rx Instructions .ROUTE .COMPLEX Qty: 16 2RF Dose Instruction: USE 1 SPRAY IN BOTH NOSTRILS DAILY Rx Instructions: USE 1 SPRAY IN BOTH NOSTRILS DAILY metformin 500 mg tablet extended release 24 hr See Rx Instructions .ROUTE .COMPLEX Qty: 180 3RF Dose Instruction: TAKE 2 TABLETS BY MOUTH DAILY Rx Instructions: TAKE 2 TABLETS BY MOUTH DAILY tamsulosin [Flomax] 0.4 mg capsule 0.4 mg PO DAILY 90 Days Qty: 90 3RF hydroxyzine pamoate [Vistaril] 25 mg capsule 25 mg PO BID MDD 50 mg PRN (Reason: Anxiety for MRI) Qty: 5 0RF Rx Instructions: 25 mg on-call for MRI. May repeat just before MRI if increase anxiety. Do not drive after taking hydroxyzine triamcinolone acetonide 0.1 % cream See Rx Instructions .ROUTE .COMPLEX Qty: 30 4RF Dose Instruction: APPLY 1 APPLICATION TO AFFECTED AREA(S) TOPICALLY 3 TIMES DAILY Rx Instructions: APPLY 1 APPLICATION TO AFFECTED AREA(S) TOPICALLY 3 TIMES DAILY pioglitazone 30 mg tablet See Rx Instructions .ROUTE .COMPLEX Qty: 90 3RF Dose Instruction: TAKE 1 TABLET BY MOUTH DAILY Rx Instructions: TAKE 1 TABLET BY MOUTH DAILY lidocaine 5 % adhesive patch,medicated 1 patch topical DAILY 30 Days Qty: 30 3RF Rx Instructions: leave on most painful area for up to 12 hrs mupirocin 2 % ointment 1 applic topical TID 30 Days Qty: 12 3RF rifampin 300 mg capsule 600 mg PO DAILY 90 Days Qty: 180 0RF isoniazid 300 mg tablet See Rx Instructions .ROUTE .COMPLEX Qty: 90 3RF Dose Instruction: TAKE 1 TABLET BY MOUTH DAILY Rx Instructions: TAKE 1 TABLET BY MOUTH DAILY nystatin 100,000 unit/gram cream See Rx Instructions .ROUTE .COMPLEX Qty: 90 2RF Dose Instruction: APPLY 1 APPLICATION TOPICALLY 3 TIMES DAILY Rx Instructions: APPLY 1 APPLICATION TOPICALLY 3 TIMES DAILY clopidogrel [Plavix] 75 mg Tablet 75 mg PO DAILY 30 Days Qty: 30 6RF Referrals Follow up/Referrals: Columba Rodríguez APRN [Primary Care Provider] - See instructions Clinical Impressions Clinical Impression: Acquired lymphedema, Atrial flutter, Dyspnea, CAD (coronary artery disease), Edema of both lower extremities Print Language Print Language: Nigerian Discharge ED Provider: Lele Smith General Adult HPI General Chief complaint: Shortness of Breath/Dyspnea Stated complaint: soa Time Seen by Provider: 01/22/24 17:12 Mode of Arrival: Ambulatory Source of Information: Patient Limitations: No Limitations History of Present Illness HPI narrative: 73-year-old male presents to the emergency department with shortness of air, lightheadedness, episode of chest pain on Monday, this is since resolved, now more of chest pressure for the last 2 days, patient recently had a heart catheterization on Monday, was seen in the recreation facility attendant office today, was recommended to be a direct admit to the hospitalist service, due to ongoing atrial flutter with hypotension. Patient at the bedside denies any fever chills recent illness, no cough, no congestion, no overt chest pain currently, no abdominal pain nausea vomiting, constipation or diarrhea, no urinary type symptomatology. Reviewed the patient's cardiology outpatient documentation, patient was instructed to stop losartan due to hypotension, his bisoprolol was increased today, as well as his Xarelto due to atrial flutter, patient has ongoing bilateral lower extremity edema/lymphedema, that he states is actually improved , at his baseline. Cardiology recommended admit with REBECCA with cardioversion for active a flutter. Patient has a past medical history consistent with coronary artery disease status post stent placement x 5, recent stent placement on Monday, CATHLEEN, PAD, T2DM, BPH, CHF, hyperlipidemia, anemia, hypertension, patient is on dual antiplatelet therapy with Plavix and aspirin, data deficient history of asbestos exposure, restrictive lung disease, patient is a non-smoker, denies any alcohol or drug use. Initial triage vitals notable for tachycardia to 140 bpm, and mild hypotension at systolic of 91, SpO2 within normal limits, otherwise unremarkable vitals. Related Data Home Medications ?Medication ?Instructions ?Recorded ?Confirmed tramadol 50 mg tablet 50 mg PO BIDP PRN pain 08/24/17 01/22/24 cyclobenzaprine 5 mg tablet 5 mg PO TIDP PRN Muscle spasms 90 07/06/20 01/22/24 days ##90 albuterol sulfate 90 mcg/actuation 2 puff inhalation BIDP PRN SOB 02/22/23 01/22/24 aerosol inhaler blood glucose control, normal #1 ea 04/24/23 01/22/24 (OneTouch Ultra Control solution) blood sugar diagnostic (OneTouch #10 ea 04/24/23 01/22/24 Ultra Test strips) blood-glucose meter (OneTouch #1 ea 04/24/23 01/22/24 Ultra2 Meter) lancets 31 gauge (Ultra Thin #100 ea 04/24/23 01/22/24 Lancets) lancing device #1 ea 04/24/23 01/22/24 colistin (colistimethate Na) 150 150 mg IM 11/21/23 01/22/24 mg solution for injection diclofenac sodium 1.5 % topical drp topical 11/21/23 01/22/24 drops Previous Rx's ?Medication ?Instructions ?Recorded simvastatin 20 mg tablet See Rx Instructions .Route 04/10/23 .COMPLEX #90 tabs fluticasone propionate 50 See Rx Instructions .Route 05/17/23 mcg/actuation nasal .COMPLEX #16 grams spray,suspension metformin 500 mg tablet,extended See Rx Instructions .Route 06/23/23 release 24 hr .COMPLEX #180 tabs tamsulosin 0.4 mg capsule (Flomax) 0.4 mg PO DAILY 90 days #90 caps 07/03/23 hydroxyzine pamoate 25 mg capsule 25 mg PO BID PRN Anxiety for MRI 08/25/23 (Vistaril) #5 caps triamcinolone acetonide 0.1 % See Rx Instructions .Route 09/04/23 topical cream .COMPLEX #30 grams albuterol sulfate 90 mcg/actuation 2 inh inhalation Q6H PRN shortness 10/10/23 aerosol inhaler (Ventolin HFA) of breath or wheezing 90 days #18 grams pyridoxine (vitamin B6) 50 mg 50 mg PO DAILY #90 tabs 10/10/23 tablet lidocaine 4 % topical patch 1 patch topical DAILY #30 ea 10/25/23 pioglitazone 30 mg tablet See Rx Instructions .Route 11/07/23 .COMPLEX #90 tabs lidocaine 5 % topical patch 1 patch topical DAILY pain 30 days 11/13/23 #30 ea mupirocin 2 % topical ointment 1 applic topical TID 30 days #12 11/13/23 grams rifampin 300 mg capsule 600 mg (2 x 300 mg) PO DAILY 3 11/14/23 months #180 caps aspirin 81 mg tablet,delayed 81 mg PO DAILY #30 tabs 11/21/23 release (Adult Low Dose Aspirin) isoniazid 300 mg tablet See Rx Instructions .Route 12/18/23 .COMPLEX #90 tabs nystatin 100,000 unit/gram topical See Rx Instructions .Route 01/11/24 cream .COMPLEX #90 grams clopidogrel 75 mg tablet (Plavix) 75 mg PO DAILY 30 days #30 tabs 01/19/24 bisoprolol fumarate 5 mg tablet 5 mg PO DAILY #30 tabs 01/22/24 furosemide 20 mg tablet 20 mg PO DAILY #30 tabs 01/22/24 rivaroxaban 15 mg tablet 15 mg PO Q24H #30 tabs 01/22/24 Allergies Allergy/AdvReac Type Severity Reaction Status Date / Time Penicillins [PENICILLINS] Allergy Unknown I-ITCHING Verified 01/22/24 13:46 [facility] Disclaimer: The information contained in this section may have been updated after the patient was seen, as this information can be updated by other users. Medical History (Updated 01/22/24 @ 18:01 by KAYLIE Noble) Atrial flutter Asbestos exposure Tachycardia Abnormal ECG Preoperative testing Allergic rhinitis Dyspnea on exertion Latent tuberculosis by blood test Restrictive lung disease Ingrown toenail of right foot Splinter of toe of left foot Acute bacterial bronchitis Callus of foot Diabetic foot ulcer Acute febrile illness SIRS (systemic inflammatory response syndrome) Left against medical advice Encounter for pre-operative cardiovascular clearance Sepsis Cellulitis Severe sepsis SIRS (systemic inflammatory response syndrome) Bacterial pneumonia Hypokalemia Bronchitis due to COVID-19 virus Pneumonia due to COVID-19 virus COVID-19 virus infection Exposure to COVID-19 virus Viral syndrome Acute bronchitis Hematuria Kidney stone on right side Cough Mental status change resolved HTN (hypertension) Dyspnea HHD (hypertensive heart disease) Pre-op evaluation Diabetes Surgical History History of cardiac cath History of coronary artery stent placement History of cholecystectomy Hx of total knee arthroplasty Family History Other Cancer Cerebral palsy Dementia Diabetes Social History Smoking Status: Never smoker alcohol intake: never counseling provided: none substance use type: denies use current occupational status: retired Travel in the last 8 weeks: None household members: spouse housing: house caffeine: Yes Other Medical History Have you received the Flu Vaccine for this season: Yes Have you received the Pneumonia Vaccine: No ROS Obtained: Yes All systems reviewed & no additional complaints except as documented Physical Exam General General appearance: alert and in no apparent distress Head Head exam: atraumatic and normocephalic Eye Eye exam: Present normal appearance, PERRL and EOMI Neck Neck exam: Present full ROM; Absent meningismus Chest Chest inspection: Present normal inspection Respiratory Respiratory exam: Present other (Crackles/Rales in bilateral lung meeks); Absent respiratory distress, wheezes, stridor, accessory muscle use or prolonged expiratory phase Cardiovascular Cardiovascular exam: Present tachycardia, irregular rhythm and other (Pulses equal and symmetric in bilateral upper and lower extremities) Abdominal Exam Abdominal exam: Absent distention, tenderness, guarding, rebound or rigidity Extremities Exam Extremities exam: Present other (Bilateral lower extremity lymphedema/edema that is at least +4 pitting, does have active compression stockings on.); Absent edema Neurological Exam Neurological exam: Present alert Psychiatric Psychiatric exam: Present normal affect Skin Skin exam: Present warm and dry Medical Decision Making Medical Records Medical records reviewed: Yes I reviewed the patient's medical records. Screening: Per USPSTF and CDC recommendations, given the prevalence of disease in our region, it is our hospital?s policy to screen for HIV and viral Hepatitis for all patients aged 18 and over and those with ongoing risk factors. Jevon Inquiry Pt receiving controlled substance: No Jevon was queried for this patient: No Vital Signs: 01/22/24 17:10 01/22/24 17:30 Temperature 98.0 F Temperature Source Oral Pulse Rate 102 H Pulse Rate [Apical] 136 H Respiratory Rate 18 15 Blood Pressure 95/57 L Blood Pressure [Left Arm] 91/67 L Blood Pressure Mean [Left Arm] 75 Blood Pressure Source [Left Arm] Automatic Cuff Blood Pressure Position [Left Arm] Sitting 02 Sat by Pulse Oximetry 97 96 Oxygen Delivery Method Room Air Room Air Lab Data Lab Results 01/22/24 17:18: WBC 6.9, RBC 5.51, Hgb 15.5, Hct 46.2, MCV 84.0, MCH 28.2, MCHC 33.5, RDW 14.6, Plt Count 205 D, MPV 8.1, Neut % (Auto) 78.6, Lymph % (Auto) 14.4, Haralson % (Auto) 6.2, Eos % (Auto) 0.5, Baso % (Auto) 0.3, Neut # (Auto) 5.4, Lymph # (Auto) 1.0, Har[place]on # (Auto) 0.4, Eos # (Auto) 0.0, Baso # (Auto) 0.0, PT 10.9, INR 0.97, Sodium 136, Potassium 4.1, Chloride 100, Carbon Dioxide 24, A nion Gap 16.1 H, BUN 24 H, Creatinine 1.30 H, Estimated Creat Clear 75, E stimated GFR 54 L, Est GFR ( Amer) 66, Glucose 361 H, Calcium 9.7, Magnesium 1.6, Total Bilirubin 1.2, AST 38, ALT 39, Alkaline Phosphatase 75, Total Creatine Kinase 111, Troponin I 0.15 H, NT-Pro-B Natriuret Pep 4120 H, Total Protein 8.2, Albumin 4.8, Globulin 3.4 H, Albumin/Globulin Ratio 1.4 01/22/24 17:18 01/22/24 17:18 Orders (Tests/Meds): ED MEDICATIONS Discontinued Medications Generic Name Dose Route Start Last Admin Trade Name Freq PRN Reason Stop Dose Admin Metoprolol Tartrate 5 mg 01/22/24 17:27 01/22/24 17:36 Metoprolol Tartrate 5mg/5ml Vial IV 01/22/24 17:28 5 mg ONCE ONE Administration ORDERS Category Date Time Status XR chest portable Stat Exams 01/22/24 17:15 Completed CK [Creatine Kinase] Stat Lab 01/22/24 17:18 Completed Complete Blood Count Auto Diff Stat Lab 01/22/24 17:18 Completed Comprehensive Metabolic Panel Stat Lab 01/22/24 17:18 Completed HIV (1&2) Antibody Rapid Stat Lab 01/22/24 17:23 Ordered Hep C Ab with Reflex to RNA Stat Lab 01/22/24 17:23 Ordered Magnesium Stat Lab 01/22/24 17:18 Completed NT Pro Brain Natriuretic Pep. Stat Lab 01/22/24 17:18 Completed PT INR [Prothrombin Time INR] Stat Lab 01/22/24 17:18 Completed TSH [Thyroid Stimulating Hormone] Stat Lab 01/22/24 17:26 Ordered Troponin I Q3H Lab 01/22/24 20:15 Ordered Troponin I Q3H Lab 01/22/24 23:15 Ordered Troponin I Stat Lab 01/22/24 17:18 Completed Urinalysis and Microscopic Stat Lab 01/22/24 17:15 Ordered Medical Decision Narrative: 73-year-old male presents emergency department for shortness of air, heart palpitations, lightheadedness, different diagnose include but not limited to cardiac arrhythmia, electrolyte disturbance, ACS, pneumonia, CHF exacerbation, COPD exacerbation Will obtain CBC CMP, CK, magnesium level, TSH, proBNP, PT/INR, troponin, urinalysis, EKG, CXR, will give 5 mg IV metoprolol for rate control. I discussed patient case with the attending physician Dr. Smith I along with the attending physician Dr. Smith the patient's EKG, atrial flutter, with RVR, 104 2 bpm, QT interval within normal limits, there is no STEMI. CBC unremarkable, PT/INR unremarkable CMP notable for elevated anion gap slightly at 16.1, BUN and creatinine elevated which reflect acute on chronic kidney injury at 24/1.3 respectively, moderate hyperglycemia, at 361 there is mild elevation in troponin at 0.15, is elevated from previous, proBNP is elevated at 4120 that was unremarkable CMP. I discussed this patient's case with the hospitalist physician Dr. Palacio at 5:55 PM, he is in agreement with the current admission plan/treatment plan for atrial flutter, with component of possible CHF exacerbation, with cardiology to see/treat with potential intervention/echocardiogram. Discussed plan for admission with the patient family bedside, patient and family are in agreement current admission plan/treatment plan I reviewed the patient's chest x-ray along the corresponding radiologic report, comparison is made from chest x-ray in November 2023, there is some consolidative changes in the medial right lung base which are concerning for infection. Critical Care Critical Care Time Critical Care Time: No
--- NOTE | 2024-01-22 17:25 | PC.NURSE ---
XR AT BEDSIDE
[2024-01-22 17:26] LABS: Basophils % 0.3 % (0.1-2.0); Eosinophils % 0.5 % (0.1-12.0); Hematocrit 46.2 % (42.0-52.0); Hemoglobin 15.5 g/dL (14.1-18.0); Lymphocytes % 14.4 % (10-50); Mean Corpuscular HGB Conc 33.5 g/dL (31.8-35.4); Mean Corpuscular Hemoglobin 28.2 pg (27.0-31.2); Mean Platelet Volume 8.1 fl (7.4-10.4); Monocytes # 0.4 K/mm3 (0.1-1.0); Monocytes % 6.2 % (1.7-9.3); Neutrophils # 5.4 K/mm3 (1.8-7.8); Neutrophils % 78.6 % (37.0-80.0); Platelet Count 205 K/mm3 (142-424); Red Blood Count 5.51 M/mm3 (4.60-6.20); Red Cell Distribution Width 14.6 % (11.5-17.5); White Blood Count 6.9 K/mm3 (4.8-10.8)
[2024-01-22 17:33] LABS: Albumin Level 4.8 g/dl (3.5-5.0); Chloride 100 mmol/L (98-107)
[2024-01-22 17:34] LABS: Potassium 4.1 mmoL/L (3.5-5.1); Sodium 136 mmol/L (136-145)
[2024-01-22 17:36] LABS: Alanine Aminotransferase 39 U/L (12-78); Albumin/Globulin Ratio 1.4 (1.1-1.8); Alkaline Phosphatase 75 U/L (38-126); Anion Gap 16.1 mEq/L (5-15); Aspartate Amino Transferase 38 U/L (17-59); Bilirubin,Total 1.2 mg/dl (0.2-1.3); Blood Urea Nitrogen 24 mg/dl (9-20); Carbon Dioxide 24 mmol/L (22.0-30.0); Creatinine Clearance Estimated 75 mL/min (50-200); Estimated Glomerular Filt Rate 54 ml/min (>60); GFR (African American) 66 ML/MIN (>60); Globulin 3.4 g/dL (1.3-3.2); INR 0.97 (0.9-1.1); Prothrombin Time 10.9 seconds (10.1-12.5); Total Protein,Serum 8.2 g/dl (6.3-8.2)
[2024-01-22] MEDS: METOPROLOL TARTRATE 5MG/5ML VIAL 5 MG IV ×2 (17:36→21:06)
[2024-01-22 17:37] LABS: Calcium 9.7 mg/dl (8.4-10.2); Creatine Kinase 111 U/L (55-170); Glucose 361 mg/dl (74-100); Magnesium 1.6 mg/dl (1.6-2.3)
[2024-01-22 17:46] LABS: NT Pro Brain Natriuretic Pep. 4120 pg/mL (0-125)
[2024-01-22 17:48] LABS: Troponin I 0.15 ng/ml (0.00-0.034)
--- NOTE | 2024-01-22 17:57 | PC.NURSE ---
Kev REYEZ PA-C SPEAKING WITH DR SHARPE
--- NOTE | 2024-01-22 17:58 | PC.NURSE ---
PROCESS ARTIST NOTIFIED OF ADMISSION
--- NOTE | 2024-01-22 18:21 | PC.NURSE ---
ATTEMPTED TO CALL REPORT, ROOM NOT CLEANED FOR PT AT THIS TIME
--- NOTE | 2024-01-22 18:40 | PC.NURSE ---
REPORT CALLED TO LUCIE PATINO
[2024-01-22 19:04] LABS: Thyroid Stimulating Hormone 1.87 uIU/mL (0.465-4.68)
--- NOTE | 2024-01-22 19:23 | PC.NURSE ---
Patient arrived to floor via wheelchair from ED at 18:58.
[2024-01-22 19:41] LABS: HIV (1&2) Antibody Rapid NONREACTIVE (NONREACTIVE)
--- NOTE | 2024-01-22 20:33 | EXP.HP ---
History of Present Illness *Admission Date: 01/22/24 *Reason for visit:: Shortness of breath *History of present illness: This is a 73-year-old male with a past medical history of CAD status post 2 cardiac stents on 01/19/2024, latent tuberculosis, T2DM, chronic pain who presents to the emergency department with complaints of elevated heart rate. Patient was being seen in the cardiology clinic for routine follow-up status post cardiac stents. He presented to the office with complaints of shortness of breath, generalized weakness, heart fluttering and diaphoresis. He reports chest pressures directly after stent placement. States that he has had increased swelling in his legs and also reports dizziness and lightheadedness. He underwent cardiac evaluation in the office and was noted to be in a flutter with heart rate in the 140s to 150s with hypotension. Given this he was instructed to seek treatment in the emergency department for admission for further workup. Emergency department workup notable for a flutter with RVR on EKG. Elevated BNP of 4120, troponin of 0.15. Chest x-ray with hazy opacities noted bilaterally. Cardiology recommends hospitalization with likely REBECCA with cardioversion tomorrow. He is admitted to the hospital service at this time. [facility] Disclaimer: The information contained in this section may have been updated after the patient was seen, as this information can be updated by other users. Medical History Atrial flutter Asbestos exposure Tachycardia Abnormal ECG Preoperative testing Allergic rhinitis Dyspnea on exertion Latent tuberculosis by blood test Restrictive lung disease Ingrown toenail of right foot Splinter of toe of left foot Acute bacterial bronchitis Callus of foot Diabetic foot ulcer Acute febrile illness SIRS (systemic inflammatory response syndrome) Left against medical advice Encounter for pre-operative cardiovascular clearance Sepsis Cellulitis Severe sepsis SIRS (systemic inflammatory response syndrome) Bacterial pneumonia Hypokalemia Bronchitis due to COVID-19 virus Pneumonia due to COVID-19 virus COVID-19 virus infection Exposure to COVID-19 virus Viral syndrome Acute bronchitis Hematuria Kidney stone on right side Cough Mental status change resolved HTN (hypertension) Dyspnea HHD (hypertensive heart disease) Pre-op evaluation Diabetes Surgical History History of cardiac cath History of coronary artery stent placement History of cholecystectomy Hx of total knee arthroplasty Family History Other Cancer Cerebral palsy Dementia Diabetes Social History (Updated 01/22/24 @ 22:10 by Rika Plaza RN) Smoking Status: Never smoker alcohol intake: never counseling provided: none substance use type: denies use current occupational status: employed and retired Travel in the last 8 weeks: None household members: spouse housing: house caffeine: Yes Other Medical History Have you received the Flu Vaccine for this season: Yes Have you received the Pneumonia Vaccine: No Review of Systems Review of Systems Review of systems:: other Review of systems (narrative): Negative except for HPI Meds Home Medications and Allergies Home Medications ?Medication ?Instructions ?Recorded ?Confirmed ?Type tramadol 50 mg tablet 50 mg PO BIDP PRN pain 08/24/17 01/22/24 History cyclobenzaprine 5 mg tablet 5 mg PO TIDP PRN Muscle spasms 90 07/06/20 01/22/24 History days ##90 albuterol sulfate 90 mcg/actuation 2 puff inhalation BIDP PRN SOB 02/22/23 01/22/24 History aerosol inhaler simvastatin 20 mg tablet See Rx Instructions .Route 04/10/23 01/22/24 Rx .COMPLEX #90 tabs blood glucose control, normal #1 ea 04/24/23 01/22/24 History (OneTouch Ultra Control solution) blood sugar diagnostic (OneTouch #10 ea 04/24/23 01/22/24 History Ultra Test strips) blood-glucose meter (OneTouch #1 ea 04/24/23 01/22/24 History Ultra2 Meter) lancets 31 gauge (Ultra Thin #100 ea 04/24/23 01/22/24 History Lancets) lancing device #1 ea 04/24/23 01/22/24 History metformin 500 mg tablet,extended See Rx Instructions .Route 06/23/23 01/22/24 Rx release 24 hr .COMPLEX #180 tabs tamsulosin 0.4 mg capsule (Flomax) 0.4 mg PO DAILY 90 days #90 caps 07/03/23 01/22/24 Rx albuterol sulfate 90 mcg/actuation 2 inh inhalation Q6H PRN shortness 10/10/23 01/22/24 Rx aerosol inhaler (Ventolin HFA) of breath or wheezing 90 days #18 grams pyridoxine (vitamin B6) 50 mg 50 mg PO DAILY #90 tabs 10/10/23 01/22/24 Rx tablet lidocaine 4 % topical patch 1 patch topical DAILY #30 ea 10/25/23 01/22/24 Rx pioglitazone 30 mg tablet See Rx Instructions .Route 11/07/23 01/22/24 Rx .COMPLEX #90 tabs lidocaine 5 % topical patch 1 patch topical DAILY pain 30 days 11/13/23 01/22/24 Rx #30 ea colistin (colistimethate Na) 150 150 mg IM 11/21/23 01/22/24 History mg solution for injection nystatin 100,000 unit/gram topical See Rx Instructions .Route 01/11/24 01/22/24 Rx cream .COMPLEX #90 grams clopidogrel 75 mg tablet (Plavix) 75 mg PO DAILY 30 days #30 tabs 01/19/24 01/22/24 Rx ascorbic acid (vitamin C) 1,000 mg 1,000 mg PO DAILY 01/22/24 01/22/24 History tablet (Vitamin C) bisoprolol fumarate 5 mg tablet 5 mg PO DAILY #30 tabs 01/22/24 01/22/24 Rx diphenhydramine HCl 25 mg tablet 25 mg PO HS PRN Allergy Symptoms 01/22/24 01/22/24 History rivaroxaban 15 mg tablet 15 mg PO Q24H #30 tabs 01/22/24 01/22/24 Rx vitamin E (dl, acetate) 450 mg 450 mg PO DAILY 01/22/24 01/22/24 History (1,000 unit) capsule New Prescriptions to Start Prescriptions: Allergies Allergy/AdvReac Type Severity Reaction Status Date / Time Penicillins [PENICILLINS] Allergy Unknown I-ITCHING Verified 01/22/24 13:46 Exam Data for Last 24 hours Vital signs and Labs for Last 24 Hours: Temp Pulse Resp BP Pulse Ox O2 Del Method 97.9 F 114 H 18 124/72 96 Room Air 01/22/24 19:04 01/22/24 19:04 01/22/24 19:04 01/22/24 19:04 01/22/24 19:04 01/22/24 19:04 Laboratory Results - last 24 hr 01/22/24 14:28: TSH 1.87, HIV 1&2 Antibody Rapid Nonreactive 01/22/24 17:18: WBC 6.9, RBC 5.51, Hgb 15.5, Hct 46.2, MCV 84.0, MCH 28.2, MCHC 33.5, RDW 14.6, Plt Count 205 D, MPV 8.1, Neut % (Auto) 78.6, Lymph % (Auto) 14.4, [place] % (Auto) 6.2, Eos % (Auto) 0.5, Baso % (Auto) 0.3, Neut # (Auto) 5.4, Lymph # (Auto) 1.0, [place] # (Auto) 0.4, Eos # (Auto) 0.0, Baso # (Auto) 0.0, PT 10.9, INR 0.97, Sodium 136, Potassium 4.1, Chloride 100, Carbon Dioxide 24, Anion Gap 16.1 H, BUN 24 H, Creatinine 1.30 H, Estimated Creat Clear 75, Estimated GFR 54 L, Est GFR ( Amer) 66, Glucose 361 H, Calcium 9.7, Magnesium 1.6, Total Bilirubin 1.2, AST 38, ALT 39, Alkaline Phosphatase 75, Total Creatine Kinase 111, Troponin I 0.15 H, NT-Pro-B Natriuret Pep 4120 H, Total Protein 8.2, Albumin 4.8, Globulin 3.4 H, Albumin/Globulin Ratio 1.4 I & O for Last 24 hours: Intake & Output 01/19/24 01/20/24 01/21/24 01/22/24 23:59 23:59 23:59 23:59 Weight 101.605 kg Constitutional Constitutional: no acute distress *Routine HEENT Exam Head: Present normocephalic Eye: Present EOMI and PERRL ENT: Present mucous membranes moist *Routine Neck Exam Neck: Present supple; Absent lymphadenopathy *Routine Respiratory Exam Respiratory: Present CTA bilaterally *Routine Cardiovascular Exam Cardiovascular: Present irregular rhythm Comments: Atrial flutter with rate of low 100s on bedside monitor. +3 bilateral lower extremity edema *Routine Abdominal Exam Abdominal: Present soft and normoactive bowel sounds; Absent tenderness *Routine Rectal Exam Rectal:: deferred *Routine Genitalia Exam Genitalia:: deferred *Routine Extremities Exam Extremities: Absent cyanosis, clubbing or edema *Routine Skin Exam Skin: Present warm; Absent rash *Routine Neurological Exam Neurological: Present alert and oriented X3 Assessment and Plan *Assessment and plan (1) Atrial flutter: Status: Acute Qualifiers: Atrial flutter type: typical Qualified Code(s): I48.3 - Typical atrial flutter Category: Medical Code(s): I48.92 - Unspecified atrial flutter (2) NSTEMI (non-ST elevated myocardial infarction): Status: Acute Category: Medical Code(s): I21.4 - Non-ST elevation (NSTEMI) myocardial infarction (3) CAD (coronary artery disease): Status: Acute Qualifiers: Associated angina: with stable angina Coronary Disease-Associated Artery/Lesion type: [place] artery [place] vs. transplanted heart: [place] heart Qualified Code(s): I25.118 - Atherosclerotic heart disease of [place] coronary artery with other forms of angina pectoris Category: Medical Code(s): I25.10 - Atherosclerotic heart disease of [place] coronary artery without angina pectoris (4) T2DM (type 2 diabetes mellitus): Status: Acute Qualifiers: Diabetes mellitus complication detail: with other circulatory complications Diabetes mellitus complication status: with circulatory complication Diabetes mellitus fci insulin use: without long winder tender use Qualified Code(s): E11.59 - Type 2 diabetes mellitus with other circulatory complications Category: Medical Code(s): E11.9 - Type 2 diabetes mellitus without complications (5) Volume overload: Status: Acute Qualifiers: Hypervolemia type: other Qualified Code(s): E87.79 - Other fluid overload Category: Medical Code(s): E87.70 - Fluid overload, unspecified (6) Latent tuberculosis by blood test: Problem Comment: On INH, RFP, B6 Status: Chronic Category: Medical Code(s): Z22.7 - Latent tuberculosis Plan 73 yo M who presented with dyspnea, in Aflutter. Discussed case with ER physician, request admission for management of volume overload, CHF, aflutter, I agreed to admit. Problems addressed as follows: #Atrial flutter with RVR #NSTEMI #CAD Controlled after IV metoprolol and digoxin the emergency department. Saw Cardiology in office today. Plans for REBECCA with cardioversion in AM. N.p.o. after midnight Will initiate IV Lasix Elevated troponin likely sequela of recent stent placement and demand EKG with a flutter without ischemia Continue Xarelto Continue aspirin Continue Plavix Continue statin Past Hx CAD-Hx of RIYA in 2016. On aspirin, plavix and low dose xarelto [facility] 2020 widely patent RIYA Left main (12/2023) #T2DM Hold metformin, initiate sliding scale #Volume overload Likely new onset heart failure. ECHO 10/2023 - Normal Bi-V function, no valve dz REBECCA w Cardioversion in AM Continue Diuresis Strict intake and output Fluid restriction Low-sodium diet when able +3 pitting edema bilateral lower extremities but also endorses history of lymphedema and has leg wraps 3 times a week #latent TB Reports both grandparents of TB. 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 Following with Dr. Nelson, on rifampin and isoniazid for treatment Continue droplet/airborne precautions in negative pressure room Appears asymptomatic at this time. 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 Personally examined and interviewed patient. Agree with exam findings and care plan as documented.
[2024-01-22 20:45] LABS: POC Glucose,Bedside 335 (70-110)
[2024-01-22] MEDS: FUROSEMIDE 40MG/4ML VIAL 40 MG IV (21:05)
[2024-01-22] MEDS: humaLOG 100 UNITS/ML 10ML VIAL (SSI) SUBCUT (21:06)
[2024-01-22 21:08] LABS: Troponin I 0.14 ng/ml (0.00-0.034)
[2024-01-22] MEDS: METOPROLOL TARTRATE 50MG TABLET 12.5 MG PO (21:09)
[2024-01-22 21:57] LABS: Microscopic, Urine URINE MICROSCOPIC (MICROSCOPIC)
[2024-01-22 22:04] LABS: Appearance,Urine CLEAR (Clear); Bilirubin,Urine Negative (Negative); Blood, Urine Negative (Negative); Color,Urine YELLOW (Yellow); Glucose,Urine (UA) 1+ (Negative); Ketones,Urine Negative (Negative); Leukocyte Esterase,Urine Negative (Negative); Nitrate,Urine Negative (Negative); Protein,Urine Negative (Negative); Specific Gravity, Urine 1.015 (1.005-1.030); Urobilinogen,Urine 0.2 EU/dl (0.2)
[2024-01-22 22:17] LABS: Bacteria,Urine Trace /lpf; Squamous Epithelial Cell,Urine Occasional #/hpf (0-5); WBC,Urine Occasional #/hpf (0-3)
[2024-01-23] VITALS: BP 121/64; PULSE 100; PULSE 50; RESP 18; TEMP 36.7; O2SAT 96
[2024-01-23 00:04] LABS: Troponin I 0.14 ng/ml (0.00-0.034)
[2024-01-23 04:00] VITALS: BP 124/79; PULSE 69; PULSE 96; RESP 18; TEMP 36.4; O2SAT 96; BMI 32.6
--- NOTE | 2024-01-23 04:18 | PC.NURSE ---
73 yo male pt is A/O X 4. Bed alarm on . Pt refuses to use urinal as instructed and has ambulated to BR though the night with standby assist. HR increases to 130s-150s with activity. pt does report dizziness at times but denies increased SOA or chest pain. Pt has remained in A flutter throughout shift. He has been NPO since UT. FSBS was 335 at 9pm covered with insulin per SS.
[2024-01-23 06:34] LABS: POC Glucose,Bedside 224 (70-110)
[2024-01-23] MEDS: humaLOG 100 UNITS/ML 10ML VIAL (SSI) SUBCUT ×2 (06:39→10:35)
[2024-01-23 06:41] LABS: Albumin Level 4.1 g/dl (3.5-5.0); Chloride 102 mmol/L (98-107)
[2024-01-23 06:42] LABS: Potassium 3.7 mmoL/L (3.5-5.1); Sodium 135 mmol/L (136-145)
[2024-01-23 06:44] LABS: Alanine Aminotransferase 30 U/L (12-78); Aspartate Amino Transferase 38 U/L (17-59); Blood Urea Nitrogen 24 mg/dl (9-20); Creatinine Clearance Estimated 87 mL/min (50-200); Estimated Glomerular Filt Rate 66 ml/min (>60); GFR (African American) 80 ML/MIN (>60)
[2024-01-23 06:45] LABS: Albumin/Globulin Ratio 1.4 (1.1-1.8); Alkaline Phosphatase 67 U/L (38-126); Anion Gap 13.7 mEq/L (5-15); Bilirubin,Total 0.9 mg/dl (0.2-1.3); Calcium 8.9 mg/dl (8.4-10.2); Carbon Dioxide 23 mmol/L (22.0-30.0); Glucose 246 mg/dl (74-100); Magnesium 1.7 mg/dl (1.6-2.3); Total Protein,Serum 7.1 g/dl (6.3-8.2)
[2024-01-23 06:51] LABS: Basophils % 0.5 % (0.1-2.0); Eosinophils # 0.1 K/mm3 (0.0-0.4); Hematocrit 45.9 % (42.0-52.0); Lymphocytes # 1.1 K/mm3 (0.7-4.5); Mean Corpuscular HGB Conc 32.6 g/dL (31.8-35.4); Mean Corpuscular Hemoglobin 27.3 pg (27.0-31.2); Mean Corpuscular Volume 83.8 fl (80-94); Monocytes # 0.4 K/mm3 (0.1-1.0); Monocytes % 7.6 % (1.7-9.3); Neutrophils # 3.9 K/mm3 (1.8-7.8); Neutrophils % 69.9 % (37.0-80.0); Platelet Count 180 K/mm3 (142-424); Red Blood Count 5.48 M/mm3 (4.60-6.20); Red Cell Distribution Width 14.6 % (11.5-17.5); White Blood Count 5.6 K/mm3 (4.8-10.8)
[2024-01-23 07:13] LABS: Hemoglobin A1C 8.7 % (4.0-6.0)
[2024-01-23 08:00] VITALS: BP 121/89; PULSE 104; RESP 19; TEMP 36.6; O2SAT 98
--- NOTE | 2024-01-23 08:01 | HMH.PHAINT1 ---
Pharmacy Intervention Comments: Home medication list verified using list from cardiology office and outpatient pharmacy
[2024-01-23 08:11] VITALS: PULSE 120
--- NOTE | 2024-01-23 08:40 | ECG_ITS ---
APPROVED REPORT Exam: Resting ECG HR:88 bpm ECG Measurements Heart Rate 88 AXES WI 134 P 51 QRSd 88 QRS 53 QT 359 T 48 QTc 404 Conclusion SINUS RHYTHM POSSIBLE LEFT ATRIAL ENLARGEMENT [-0.1mV P-WAVE IN V1/V2] BORDERLINE ECG UNCONFIRMED REPORT Electronically signed by : Walker Hill MD 01/23/2024 15:53:10
[2024-01-23] MEDS: *PAT OWN MED* CLOPIDOGREL 75MG TAB 75 MG PO (08:58)
[2024-01-23] MEDS: BISOPROLOL 5 MG PO (08:58)
[2024-01-23] MEDS: ASPIRIN EC 81MG TABLET 81 MG PO (08:58)
[2024-01-23] MEDS: FUROSEMIDE 40MG/4ML VIAL 40 MG IV (08:59)
--- NOTE | 2024-01-23 10:29 | EXP.CARD.CON ---
History of Present Illness History of Present Illness Consult date: 01/23/24 Requesting physician: De Palacio Consult reason: atrial fibrillation Chief complaint: soa, a-fib History of present illness: 73-year-old white male well-established patient of our practice with history of CAD, PAD, latent TB, rheumatoid arthritis, chronic bilateral lower extremity lymphedema. Recently seen in our office needing preoperative clearance for shoulder surgery, he had a stress test ordered which was abnormal and went for left heart cath last week. He received stenting to his left main LAD and left circumflex. EF is normal. Yesterday he presented to the office complaining of worsening shortness of breath and was found to be in newly diagnosed a-flutter, 150 bpm with blood pressure in the 80s. As such he was referred to the emergency room for stabilization and admission. In the ER he was still on RVR but chest x-ray showed possible infection right middle lobe, patient denies signs or symptoms of acute infection. Troponin was trending down from heart cath last week, proBNP 4000. Patient was admitted overnight and this morning converted spontaneously to sinus rhythm. He reports feeling back to baseline and is requesting discharge. [facility] Disclaimer: The information contained in this section may have been updated after the patient was seen, as this information can be updated by other users. Medical History Atrial flutter Asbestos exposure Tachycardia Abnormal ECG Preoperative testing Allergic rhinitis Dyspnea on exertion Latent tuberculosis by blood test Restrictive lung disease Ingrown toenail of right foot Splinter of toe of left foot Acute bacterial bronchitis Callus of foot Diabetic foot ulcer Acute febrile illness SIRS (systemic inflammatory response syndrome) Left against medical advice Encounter for pre-operative cardiovascular clearance Sepsis Cellulitis Severe sepsis SIRS (systemic inflammatory response syndrome) Bacterial pneumonia Hypokalemia Bronchitis due to COVID-19 virus Pneumonia due to COVID-19 virus COVID-19 virus infection Exposure to COVID-19 virus Viral syndrome Acute bronchitis Hematuria Kidney stone on right side Cough Mental status change resolved HTN (hypertension) Dyspnea HHD (hypertensive heart disease) Pre-op evaluation Diabetes Surgical History History of cardiac cath History of coronary artery stent placement History of cholecystectomy Hx of total knee arthroplasty Family History Other Cancer Cerebral palsy Dementia Diabetes Social History Smoking Status: Never smoker alcohol intake: never counseling provided: none substance use type: denies use current occupational status: employed and retired Travel in the last 8 weeks: None household members: spouse housing: house caffeine: Yes Review of Systems Constitutional Constitutional: Denies fatigue and Denies weakness Eyes Eyes: Denies loss of vision ENT Ears, Nose, Mouth, and Throat: Denies hearing loss and Denies vertigo *Cardiovascular Cardiovascular: Denies chest pain, Denies dyspnea and Denies syncope *Respiratory Respiratory: Denies cough and Denies dyspnea *Gastrointestinal Gastrointestinal: Denies change in stool character, Denies nausea and Denies vomiting *Genitourinary Genitourinary: Denies difficulty urinating *Musculoskeletal Musculoskeletal: Denies muscle weakness Integumentary/Breasts Skin/Breast: Denies changing lesions *Neurologic Neurologic: Denies loss of vision, Denies syncope, Denies vertigo and Denies weakness Endocrine Endocrine: Denies fatigue Exam Data for Last 24 hours Vital signs and Labs for Last 24 Hours: Temp Pulse Resp BP Pulse Ox O2 Del Method 97.8 F 104 H 19 121/89 98 Room Air 01/23/24 08:00 01/23/24 08:00 01/23/24 08:00 01/23/24 08:00 01/23/24 08:00 01/23/24 09:38 Laboratory Results - last 24 hr 01/22/24 14:28: TSH 1.87, HIV 1&2 Antibody Rapid Nonreactive 01/22/24 17:18: WBC 6.9, RBC 5.51, Hgb 15.5, Hct 46.2, MCV 84.0, MCH 28.2, MCHC 33.5, RDW 14.6, Plt Count 205 D, MPV 8.1, Neut % (Auto) 78.6, Lymph % (Auto) 14.4, [place] % (Auto) 6.2, Eos % (Auto) 0.5, Baso % (Auto) 0.3, Neut # (Auto) 5.4, Lymph # (Auto) 1.0, [place] # (Auto) 0.4, Eos # (Auto) 0.0, Baso # (Auto) 0.0, PT 10.9, INR 0.97, Sodium 136, Potassium 4.1, Chloride 100, Carbon Dioxide 24, Anion Gap 16.1 H, BUN 24 H, Creatinine 1.30 H, Estimated Creat Clear 75, Estimated GFR 54 L, Est GFR ( Amer) 66, Glucose 361 H, Calcium 9.7, Magnesium 1.6, Total Bilirubin 1.2, AST 38, ALT 39, Alkaline Phosphatase 75, Total Creatine Kinase 111, Troponin I 0.15 H, NT-Pro-B Natriuret Pep 4120 H, Total Protein 8.2, Albumin 4.8, Globulin 3.4 H, Albumin/Globulin Ratio 1.4 01/22/24 20:22: POC Glucose 335 H*, Troponin I 0.14 H 01/22/24 21:45: Urine Color Yellow, Urine Appearance Clear, Urine pH 6.0, Ur Specific [place] 1.015, Urine Protein Negative, Urine Glucose (UA) 1+, Urine Ketones Negative, Urine Blood Negative, Urine Nitrate Negative, Urine Bilirubin Negative, Urine Urobilinogen 0.2, Ur Leukocyte Esterase Negative, Urine RBC None, Urine WBC Occasional, Ur Squamous Epith Cells Occasional, Urine Bacteria Trace 01/22/24 23:15: Troponin I 0.14 H 01/23/24 05:57: WBC 5.6, RBC 5.48, Hgb 15.0, Hct 45.9, MCV 83.8, MCH 27.3, MCHC 32.6, RDW 14.6, Plt Count 180, MPV 8.0, Neut % (Auto) 69.9, Lymph % (Auto) 20.0, [place] % (Auto) 7.6, Eos % (Auto) 2.0, Baso % (Auto) 0.5, Neut # (Auto) 3.9, Lymph # (Auto) 1.1, [place] # (Auto) 0.4, Eos # (Auto) 0.1, Baso # (Auto) 0.0, Sodium 135 L, Potassium 3.7, Chloride 102, Carbon Dioxide 23, Anion Gap 13.7, BUN 24 H, Creatinine 1.10, Estimated Creat Clear 87, Estimated GFR 66, Est GFR ( Amer) 80 D, Glucose 246 H D, Hemoglobin A1c 8.7 H, Calcium 8.9, Magnesium 1.7, Total Bilirubin 0.9, AST 38, ALT 30, Alkaline Phosphatase 67, Total Protein 7.1, Albumin 4.1 D, Globulin 3.0, Albumin/Globulin Ratio 1.4 01/23/24 06:24: POC Glucose 224 H I & O for Last 24 hours: Intake & Output 01/20/24 01/21/24 01/22/24 01/23/24 23:59 23:59 23:59 23:59 Intake Total 780 / 780 Output Total 0 / 0 500 / 500 Balance 0 / 240 280 / 280 Weight 224 lb 220 lb 9.6 oz Constitutional Constitutional: no acute distress and cooperative *Routine HEENT Exam Eye: Present PERRL *Routine Respiratory Exam Respiratory: Present CTA bilaterally; Absent accessory muscle use, wheezes or crackles *Routine Cardiovascular Exam Cardiovascular: Present RRR, Normal S1 and Normal S2; Absent murmur, gallop or rubs *Routine Abdominal Exam Abdominal: Present soft; Absent tenderness *Routine Extremities Exam Extremities: Present pulses intact; Absent cyanosis or edema *Routine Skin Exam Skin: Present intact; Absent erythema or wounds *Routine Neurological Exam Neurological: Present alert and oriented X3 Routine Psychiatric Exam Psychiatric: Present cooperative Meds Home Medications and Allergies Home Medications ?Medication ?Instructions ?Recorded ?Confirmed ?Type tramadol 50 mg tablet 50 mg PO BIDP PRN pain 08/24/17 01/22/24 History cyclobenzaprine 5 mg tablet 5 mg PO TIDP PRN Muscle spasms 90 07/06/20 01/22/24 History days ##90 tamsulosin 0.4 mg capsule (Flomax) 0.4 mg PO DAILY 90 days #90 caps 07/03/23 01/22/24 Rx pyridoxine (vitamin B6) 50 mg 50 mg PO DAILY #90 tabs 10/10/23 01/22/24 Rx tablet clopidogrel 75 mg tablet (Plavix) 75 mg PO DAILY 30 days #30 tabs 01/19/24 01/22/24 Rx ascorbic acid (vitamin C) 1,000 mg 1,000 mg PO DAILY 01/22/24 01/22/24 History tablet (Vitamin C) bisoprolol fumarate 5 mg tablet 5 mg PO DAILY #30 tabs 01/22/24 01/23/24 Rx diphenhydramine HCl 25 mg tablet 25 mg PO HS PRN Allergy Symptoms 01/22/24 01/22/24 History rivaroxaban 15 mg tablet 15 mg PO Q24H #30 tabs 01/22/24 01/22/24 Rx vitamin E (dl, acetate) 450 mg 450 mg PO DAILY 01/22/24 01/22/24 History (1,000 unit) capsule losartan 50 mg tablet 50 mg PO DAILY 01/23/24 01/23/24 History metformin 500 mg tablet,extended 500 mg PO BID 01/23/24 01/23/24 History release 24 hr pioglitazone 30 mg tablet 30 mg PO DAILY 01/23/24 01/23/24 History simvastatin 20 mg tablet 20 mg PO HS 01/23/24 01/23/24 History New Prescriptions to Start Prescriptions: Allergies Allergy/AdvReac Type Severity Reaction Status Date / Time Penicillins [PENICILLINS] Allergy Unknown I-ITCHING Verified 01/22/24 13:46 Assessment and Plan *Assessment and plan (1) Atrial fibrillation with rapid ventricular response: Status: Acute Category: Medical Code(s): I48.91 - Unspecified atrial fibrillation (2) CAD (coronary artery disease): Status: Acute Qualifiers: Coronary Disease-Associated Artery/Lesion type: [place] artery [place] vs. transplanted heart: [place] heart Associated angina: with stable angina Qualified Code(s): I25.118 - Atherosclerotic heart disease of [place] coronary artery with other forms of angina pectoris Category: Medical Code(s): I25.10 - Atherosclerotic heart disease of [place] coronary artery without angina pectoris (3) T2DM (type 2 diabetes mellitus): Status: Acute Qualifiers: Diabetes mellitus keno terminal operator insulin use: without mcc use Diabetes mellitus complication status: with circulatory complication Diabetes mellitus complication detail: with other circulatory complications Qualified Code(s): E11.59 - Type 2 diabetes mellitus with other circulatory complications Category: Medical Code(s): E11.9 - Type 2 diabetes mellitus without complications (4) Latent tuberculosis by blood test: Problem Comment: On INH, RFP, B6 Status: Chronic Category: Medical Code(s): Z22.7 - Latent tuberculosis (5) Positive QuantiFERON-TB Gold test: Problem Comment: Positive conversion in 2021?2022 Status: Chronic Category: Medical Code(s): R76.12 - 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 gamma interferon antigen response without active tuberculosis (6) Lymphedema of extremity: Status: Acute Category: Medical Code(s): I89.0 - Lymphedema, not elsewhere classified Plan A-fib with RVR - new dx 01/21, ocurred less than 1 week post left main and LAD reconstruction - spontaneous conversion to SR overnight - will increase Bisoprolol to full tablet 5mg daily - add Amio taper for 1 month only - increase Xarelto from 2.5mg to 15mg daily - place 2 week monitor at discharge CAD, NV - OP LHC with stenting of Left Main, LAD, LCX on 01/18 - Cont Plavix and Xarelto, DC ASA - Cont BB, Statin BLE Lymphedema T2DM Chronic left shoulder pain Latent TB - continue home regimen/plans *Pt is CV stable for DC home with plans as outlined above. CV Discharge Meds: Discontinue aspirin 81 mg daily Discontinue losartan 50 mg daily Increase bisoprolol to 5 mg daily Continue Plavix 75 mg daily Continue simvastatin 20 mg daily Add Xarelto 15 mg daily Add Amiodarone 400mg BID x10 days then 400mg daily x20 days.
[2024-01-23] MEDS: AMIODARONE 200MG TABLET 400 MG PO (10:35)
[2024-01-23] MEDS: LOPERAMIDE 2MG CAPSULE 2 MG PO (10:35)
[2024-01-23 10:45] LABS: POC Glucose,Bedside 201 (70-110)
[2024-01-23 12:00] VITALS: BP 119/82; PULSE 84; RESP 18; TEMP 36.8; O2SAT 98
[2024-01-23 12:31] VITALS: PULSE 90
--- NOTE | 2024-01-23 14:31 | EXP.DC.SUM ---
General Admission date:: 01/22/24 HPI HPI HPI: This is a 73-year-old male with a past medical history of CAD status post 2 cardiac stents on 01/19/2024, latent tuberculosis, T2DM, chronic pain who presents to the emergency department with complaints of elevated heart rate. Patient was being seen in the cardiology clinic for routine follow-up status post cardiac stents. He presented to the office with complaints of shortness of breath, generalized weakness, heart fluttering and diaphoresis. He reports chest pressures directly after stent placement. States that he has had increased swelling in his legs and also reports dizziness and lightheadedness. He underwent cardiac evaluation in the office and was noted to be in a flutter with heart rate in the 140s to 150s with hypotension. Given this he was instructed to seek treatment in the emergency department for admission for further workup. Emergency department workup notable for a flutter with RVR on EKG. Elevated BNP of 4120, troponin of 0.15. Chest x-ray with hazy opacities noted bilaterally. Cardiology recommends hospitalization with likely REBECCA with cardioversion tomorrow. He is admitted to the hospital service at this time. Hospital Course Hospital Course Hospital Course: 73 yo M who presented with dyspnea, in Aflutter. Discussed case with ER physician, request admission for management of volume overload, CHF, aflutter, I agreed to admit. Problems addressed as follows: #Atrial flutter with RVR #CAD Controlled after IV metoprolol and digoxin the emergency department. Converted to NSR. Cardiology consulted, recommended increasing bisoprolol and adding 1 month amiodarone taper. Discharged with amiodarone 400 mg twice daily for 10 days, then 400 mg daily for 20 days. Increased Xarelto to 15 mg daily. Continue aspirin Continue Plavix Continue statin # Chronic lymphedema #New HFpEF Likely new onset heart failure. ECHO 10/2023 - Normal Bi-V function, no valve dz. No new changes on ECHO during admission, does note increased LV wall thickness. LVEF 55%. Presented with bilateral 3+ pitting edema in lower extremities. Has underlying lymphedema however. ? Improved with IV Lasix diuresis. Transitioned to Lasix 40 mg daily Discharged with Lasix 40 mg daily. Exam Data for Last 24 hours Vital signs and Labs for Last 24 Hours: Temp Pulse Resp BP Pulse Ox O2 Del Method 98.2 F 84 18 119/82 98 Room Air 01/23/24 12:00 01/23/24 12:00 01/23/24 12:00 01/23/24 12:00 01/23/24 12:00 01/23/24 12:00 Laboratory Results - last 24 hr 01/22/24 14:28: TSH 1.87, HIV 1&2 Antibody Rapid Nonreactive 01/22/24 17:18: WBC 6.9, RBC 5.51, Hgb 15.5, Hct 46.2, MCV 84.0, MCH 28.2, MCHC 33.5, RDW 14.6, Plt Count 205 D, MPV 8.1, Neut % (Auto) 78.6, Lymph % (Auto) 14.4, [place] % (Auto) 6.2, Eos % (Auto) 0.5, Baso % (Auto) 0.3, Neut # (Auto) 5.4, Lymph # (Auto) 1.0, [place] # (Auto) 0.4, Eos # (Auto) 0.0, Baso # (Auto) 0.0, PT 10.9, INR 0.97, Sodium 136, Potassium 4.1, Chloride 100, Carbon Dioxide 24, Anion Gap 16.1 H, BUN 24 H, Creatinine 1.30 H, Estimated Creat Clear 75, Estimated GFR 54 L, Est GFR ( Amer) 66, Glucose 361 H, Calcium 9.7, Magnesium 1.6, Total Bilirubin 1.2, AST 38, ALT 39, Alkaline Phosphatase 75, Total Creatine Kinase 111, Troponin I 0.15 H, NT-Pro-B Natriuret Pep 4120 H, Total Protein 8.2, Albumin 4.8, Globulin 3.4 H, Albumin/Globulin Ratio 1.4 01/22/24 20:22: POC Glucose 335 H*, Troponin I 0.14 H 01/22/24 21:45: Urine Color Yellow, Urine Appearance Clear, Urine pH 6.0, Ur Specific [place] 1.015, Urine Protein Negative, Urine Glucose (UA) 1+, Urine Ketones Negative, Urine Blood Negative, Urine Nitrate Negative, Urine Bilirubin Negative, Urine Urobilinogen 0.2, Ur Leukocyte Esterase Negative, Urine RBC None, Urine WBC Occasional, Ur Squamous Epith Cells Occasional, Urine Bacteria Trace 01/22/24 23:15: Troponin I 0.14 H 01/23/24 05:57: WBC 5.6, RBC 5.48, Hgb 15.0, Hct 45.9, MCV 83.8, MCH 27.3, MCHC 32.6, RDW 14.6, Plt Count 180, MPV 8.0, Neut % (Auto) 69.9, Lymph % (Auto) 20.0, [place] % (Auto) 7.6, Eos % (Auto) 2.0, Baso % (Auto) 0.5, Neut # (Auto) 3.9, Lymph # (Auto) 1.1, [place] # (Auto) 0.4, Eos # (Auto) 0.1, Baso # (Auto) 0.0, Sodium 135 L, Potassium 3.7, Chloride 102, Carbon Dioxide 23, Anion Gap 13.7, BUN 24 H, Creatinine 1.10, Estimated Creat Clear 87, Estimated GFR 66, Est GFR ( Amer) 80 D, Glucose 246 H D, Hemoglobin A1c 8.7 H, Calcium 8.9, Magnesium 1.7, Total Bilirubin 0.9, AST 38, ALT 30, Alkaline Phosphatase 67, Total Protein 7.1, Albumin 4.1 D, Globulin 3.0, Albumin/Globulin Ratio 1.4 01/23/24 06:24: POC Glucose 224 H 01/23/24 10:30: POC Glucose 201 H I & O for Last 24 hours: Intake & Output 01/20/24 01/21/24 01/22/24 01/23/24 23:59 23:59 23:59 23:59 Intake Total 1200 / 1200 Output Total 0 / 0 500 / 500 Balance 0 / 240 700 / 700 Weight 101.605 kg 100.062 kg Constitutional Constitutional: no acute distress *Routine HEENT Exam Head: Present normocephalic Eye: Present EOMI and PERRL ENT: Present mucous membranes moist *Routine Neck Exam Neck: Present supple; Absent lymphadenopathy *Routine Respiratory Exam Respiratory: Present CTA bilaterally *Routine Cardiovascular Exam Cardiovascular: Present RRR *Routine Abdominal Exam Abdominal: Present soft and normoactive bowel sounds; Absent tenderness *Routine Extremities Exam Extremities: Present edema; Absent cyanosis or clubbing *Routine Skin Exam Skin: Present warm; Absent rash *Routine Neurological Exam Neurological: Present alert and oriented X3 Results Data Completed and Pending Labs on day of discharge: Labs from last 24 hours 01/23/24 01/23/24 01/23/24 10:30 06:24 05:57 WBC 5.6 RBC 5.48 Hgb 15.0 Hct 45.9 MCV 83.8 MCH 27.3 MCHC 32.6 RDW 14.6 Plt Count 180 MPV 8.0 Neut % (Auto) 69.9 Lymph % (Auto) 20.0 [place] % (Auto) 7.6 Eos % (Auto) 2.0 Baso % (Auto) 0.5 Neut # (Auto) 3.9 Lymph # (Auto) 1.1 [place] # (Auto) 0.4 Eos # (Auto) 0.1 Baso # (Auto) 0.0 PT INR Sodium 135 L Potassium 3.7 Chloride 102 Carbon Dioxide 23 Anion Gap 13.7 BUN 24 H Creatinine 1.10 Estimated Creat Clear 87 Estimated GFR 66 Est GFR ( Amer) 80 D Glucose 246 H D POC Glucose 201 H 224 H Hemoglobin A1c 8.7 H Calcium 8.9 Magnesium 1.7 Total Bilirubin 0.9 AST 38 ALT 30 Alkaline Phosphatase 67 Total Creatine Kinase Troponin I NT-Pro-B Natriuret Pep Total Protein 7.1 Albumin 4.1 D Globulin 3.0 Albumin/Globulin Ratio 1.4 TSH Urine Color Urine Appearance Urine pH Ur Specific [place] Urine Protein Urine Glucose (UA) Urine Ketones Urine Blood Urine Nitrate Urine Bilirubin Urine Urobilinogen Ur Leukocyte Esterase Urine RBC Urine WBC Ur Squamous Epith Cells Urine Bacteria HIV 1&2 Antibody Rapid 01/22/24 01/22/24 01/22/24 23:15 21:45 20:22 WBC RBC Hgb Hct MCV MCH MCHC RDW Plt Count MPV Neut % (Auto) Lymph % (Auto) [place] % (Auto) Eos % (Auto) Baso % (Auto) Neut # (Auto) Lymph # (Auto) [place] # (Auto) Eos # (Auto) Baso # (Auto) PT INR Sodium Potassium Chloride Carbon Dioxide Anion Gap BUN Creatinine Estimated Creat Clear Estimated GFR Est GFR ( Amer) Glucose POC Glucose 335 H* Hemoglobin A1c Calcium Magnesium Total Bilirubin AST ALT Alkaline Phosphatase Total Creatine Kinase Troponin I 0.14 H 0.14 H NT-Pro-B Natriuret Pep Total Protein Albumin Globulin Albumin/Globulin Ratio TSH Urine Color Yellow Urine Appearance Clear Urine pH 6.0 Ur Specific [place] 1.015 Urine Protein Negative Urine Glucose (UA) 1+ Urine Ketones Negative Urine Blood Negative Urine Nitrate Negative Urine Bilirubin Negative Urine Urobilinogen 0.2 Ur Leukocyte Esterase Negative Urine RBC None Urine WBC Occasional Ur Squamous Epith Cells Occasional Urine Bacteria Trace HIV 1&2 Antibody Rapid 01/22/24 01/22/24 17:18 14:28 WBC 6.9 RBC 5.51 Hgb 15.5 Hct 46.2 MCV 84.0 MCH 28.2 MCHC 33.5 RDW 14.6 Plt Count 205 D MPV 8.1 Neut % (Auto) 78.6 Lymph % (Auto) 14.4 [place] % (Auto) 6.2 Eos % (Auto) 0.5 Baso % (Auto) 0.3 Neut # (Auto) 5.4 Lymph # (Auto) 1.0 [place] # (Auto) 0.4 Eos # (Auto) 0.0 Baso # (Auto) 0.0 PT 10.9 INR 0.97 Sodium 136 Potassium 4.1 Chloride 100 Carbon Dioxide 24 Anion Gap 16.1 H BUN 24 H Creatinine 1.30 H Estimated Creat Clear 75 Estimated GFR 54 L Est GFR ( Amer) 66 Glucose 361 H POC Glucose Hemoglobin A1c Calcium 9.7 Magnesium 1.6 Total Bilirubin 1.2 AST 38 ALT 39 Alkaline Phosphatase 75 Total Creatine Kinase 111 Troponin I 0.15 H NT-Pro-B Natriuret Pep 4120 H Total Protein 8.2 Albumin 4.8 Globulin 3.4 H Albumin/Globulin Ratio 1.4 TSH 1.87 Urine Color Urine Appearance Urine pH Ur Specific [place] Urine Protein Urine Glucose (UA) Urine Ketones Urine Blood Urine Nitrate Urine Bilirubin Urine Urobilinogen Ur Leukocyte Esterase Urine RBC Urine WBC Ur Squamous Epith Cells Urine Bacteria HIV 1&2 Antibody Rapid Nonreactive DS: Diagnosis Discharge Diagnosis (1) Atrial fibrillation with rapid ventricular response: Status: Acute Code(s): I48.91 - Unspecified atrial fibrillation (2) CAD (coronary artery disease): Status: Acute Code(s): I25.10 - Atherosclerotic heart disease of [place] coronary artery without angina pectoris Qualifiers: Associated angina: with stable angina Coronary Disease-Associated Artery/Lesion type: [place] artery [place] vs. transplanted heart: [place] heart Qualified Code(s): I25.118 - Atherosclerotic heart disease of [place] coronary artery with other forms of angina pectoris (3) T2DM (type 2 diabetes mellitus): Status: Acute Code(s): E11.9 - Type 2 diabetes mellitus without complications Qualifiers: Diabetes mellitus complication detail: with other circulatory complications Diabetes mellitus complication status: with circulatory complication Diabetes mellitus custodial insulin use: without terminal gauger use Qualified Code(s): E11.59 - Type 2 diabetes mellitus with other circulatory complications (4) Latent tuberculosis by blood test: Status: Chronic Code(s): Z22.7 - Latent tuberculosis Problem details: On INH, RFP, B6 (5) 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 Code(s): R76.12 - 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 gamma interferon antigen response without active tuberculosis Problem details: Positive conversion in 2021?2022 (6) Lymphedema of extremity: Status: Acute Code(s): I89.0 - Lymphedema, not elsewhere classified Meds Home Medications and Allergies Home Medications ?Medication ?Instructions ?Recorded ?Confirmed ?Type tramadol 50 mg tablet 50 mg PO BIDP PRN pain 08/24/17 01/22/24 History cyclobenzaprine 5 mg tablet 5 mg PO TIDP PRN Muscle spasms 90 07/06/20 01/22/24 History days ##90 tamsulosin 0.4 mg capsule (Flomax) 0.4 mg PO DAILY 90 days #90 caps 07/03/23 01/22/24 Rx pyridoxine (vitamin B6) 50 mg 50 mg PO DAILY #90 tabs 10/10/23 01/22/24 Rx tablet clopidogrel 75 mg tablet (Plavix) 75 mg PO DAILY 30 days #30 tabs 01/19/24 01/22/24 Rx ascorbic acid (vitamin C) 1,000 mg 1,000 mg PO DAILY 01/22/24 01/22/24 History tablet (Vitamin C) bisoprolol fumarate 5 mg tablet 5 mg PO DAILY #30 tabs 01/22/24 01/23/24 Rx diphenhydramine HCl 25 mg tablet 25 mg PO HS PRN Allergy Symptoms 01/22/24 01/22/24 History vitamin E (dl, acetate) 450 mg 450 mg PO DAILY 01/22/24 01/22/24 History (1,000 unit) capsule amiodarone 200 mg tablet 400 mg (2 x 200 mg) PO BID 10 days 01/23/24 Rx #40 tabs amiodarone 200 mg tablet 400 mg (2 x 200 mg) PO DAILY 20 01/23/24 Rx days #40 tabs furosemide 40 mg tablet (Lasix) 40 mg PO DAILY #30 tabs 01/23/24 Rx metformin 500 mg tablet,extended 500 mg PO BID 01/23/24 01/23/24 History release 24 hr pioglitazone 30 mg tablet 30 mg PO DAILY 01/23/24 01/23/24 History simvastatin 20 mg tablet 20 mg PO HS 01/23/24 01/23/24 History rivaroxaban 15 mg tablet 15 mg PO Q24H #30 tabs 01/25/24 Rx New Prescriptions to Start Prescriptions: amiodarone Jer Chacon amiodarone Oswaldo,Jer furosemide [Lasix] Jer Chacon Allergies Allergy/AdvReac Type Severity Reaction Status Date / Time Penicillins [PENICILLINS] Allergy Unknown I-ITCHING Verified 01/22/24 13:46 Discharge Plan Disposition Patient Disposition: Home, Self-Care Condition: Fair Follow up Plan Follow up with: Severino Laurent PA [Physician Bobbin Presser] - 01/26/24 (Within 1 week) Prescriptions/Medication Reconciliation: New amiodarone 200 mg Tablet 400 mg PO BID 10 Days Qty: 40 0RF Rx Instructions: Take amiodarone 400 mg twice a day for 10 days, then take 400 mg once a day for 20 days. amiodarone 200 mg Tablet 400 mg PO DAILY 20 Days Qty: 40 0RF furosemide [Lasix] 40 mg tablet 40 mg PO DAILY Qty: 30 0RF Continued cyclobenzaprine 5 mg tablet 5 mg PO TIDP PRN (Reason: Muscle spasms) 90 Days Qty: 90 tramadol 50 mg tablet 50 mg PO BIDP PRN (Reason: pain) pyridoxine (vitamin B6) 50 mg tablet 50 mg PO DAILY Qty: 90 0RF Rx Instructions: 2 tabs po bid bisoprolol fumarate 5 mg tablet 5 mg PO DAILY Qty: 30 0RF tamsulosin [Flomax] 0.4 mg capsule 0.4 mg PO DAILY 90 Days Qty: 90 3RF clopidogrel [Plavix] 75 mg Tablet 75 mg PO DAILY 30 Days Qty: 30 6RF vitamin E (dl, acetate) 450 mg (1,000 unit) Capsule 450 mg PO DAILY diphenhydramine HCl 25 mg Tablet 25 mg PO HS PRN (Reason: Allergy Symptoms) ascorbic acid (vitamin C) [Vitamin C] 1,000 mg Tablet 1,000 mg PO DAILY pioglitazone 30 mg tablet 30 mg PO DAILY metformin 500 mg tablet extended release 24 hr 500 mg PO BID simvastatin 20 mg tablet 20 mg PO HS Rx Instructions: TAKE 1 TABLET DAILY FOR HIGH CHOLESTEROL Discontinued losartan 50 mg tablet 50 mg PO DAILY No Action rivaroxaban 15 mg tablet 15 mg PO Q24H Qty: 30 7RF Problem Reconciliation Problems Reviewed?: Yes Patient Discharge Instructions Patient Instructions: Congestive Heart Failure (Alternative Therapy), Heart Failure, Atrial Flutter Print Language: Thai Providers Primary Care Provider: Columba Rodríguez Admit Provider: De Palacio Attending Provider: De Palacio
--- NOTE | 2024-01-23 14:36 | CA_ITS ---
APPROVED REPORT EXAM: Comprehensive 2D, Doppler, and color-flow Echocardiogram Associate Store Director: Iris Elliott RT(R) Ht: 5 ft 9 in Wt: 220lbs BSA: 2.15 BP: 121/89 mmHg Indications: Aflutter/AFIB, DM, SOB, CAD, PAD, latent TB, rheumatoid arthritis, lymphedema, recent stents, abn EKG. M-Mode Dimensions RVDd 1.97 cm (0.9-2.6) LA Diam 2.67 cm (1.9-4.0) LVDd 4.06 cm (3.5-5.7) LVDs 3.03 cm (3.5-5.7) IVSd 1.06 cm (0.6-1.1) PWd 1.02 cm (0.6-1.1) EF (Teich) 50.50% FS 25.40% EDV (Teich) 72.50 mL ESV (Teich) 35.90 mL LV Diastology E Decel Time 150 (160-240 msec) E/A Ratio 1.1 Mitral Valve MV E Max Parmjit. 79.0 (40-130 cm/s) MV A Velocity 74.0 (40-130 cm/s) E/A Ratio 1.06 MV PHT 44.0 ms Left Ventricle The left ventricle is normal size. The left ventricular systolic function is normal. The left ventricular ejection fraction is within the normal range. There is increased LV wall thickness. There is normal LV segmental wall motion. The left ventricular diastolic function is normal. LVEF is 55%. Right Ventricle The right ventricle is normal size. The right ventricular systolic function is normal. Atria The left atrium size is normal. The right atrium size is normal. There is no Doppler evidence of interatrial shunt. Aortic Valve The aortic valve is mildly thickened. There is no aortic valvular stenosis. No aortic regurgitation is present. Mitral Valve The mitral valve is normal in structure. No evidence of mitral valve stenosis. There is no mitral valve regurgitation noted. Tricuspid Valve Tricuspid valve is grossly normal in structure and function. Trace tricuspid regurgitation. There is insufficient TR jet to estimate RVSP. Pulmonic Valve The pulmonary valve is normal in structure. Trace pulmonic regurgitation. Great Vessels The aortic root is normal in size. The ascending aorta is not well-visualized. IVC is normal in size and collapses >50% with inspiration. Pericardium There is no pericardial effusion. Other Information Study Quality: Fair Conclusion Normal biventricular systolic function. No significant valvular stenosis or regurgitation. Electronically signed by : Amara Mckeon MD 01/24/2024 00:32:06
[2024-01-24 12:24] LABS: HCV Ab Non Reactive (Non Reactive)
--- NOTE | 2024-01-25 12:40 | CARE MANAGER ---
Contacted patient related to hospital discharge. He states he is feeling well. He denies questions or concerns. He has new medications and is aware of changes. LUCIE Waddell
== END 2024-01-23 18:33 | disposition home or self-care (01) ==
LOC: ER 18:01 → 2ND 18:28
PROVIDERS: Nurse Practitioner Acute Care; Physician Assistant; Admitting Provider Internal Medicine Adolescent Medicine; Emergency Provider Student in an Organized Health Care Education/Training Program; PCP Family Medicine; Visit Provider Internal Medicine Adolescent Medicine
DX: I48.3 Typical atrial flutter (principal); I25.118 Atherosclerotic heart disease of native coronary artery with other forms of angina pectoris; I50.30 Unspecified diastolic (congestive) heart failure; E11.59 Type 2 diabetes mellitus with other circulatory complications; E87.79 Other fluid overload; Z22.7 Latent tuberculosis; I48.91 Unspecified atrial fibrillation; R76.12 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 gamma interferon antigen response without active tuberculosis; I89.0 Lymphedema, not elsewhere classified; Z95.5 Presence of coronary angioplasty implant and graft; Z86.16 Personal history of COVID-19; Z79.899 Other long term (current) drug therapy
CPT/HCPCS: 36415; 71045; 80053; 81001; 82550; 82962; 83036; 83735; 83880; 84443; 84484; 85025; 85610; 86803; 87389; 93005; 93270; 93306; 99285; G0378; J1940

== ENCOUNTER 2024-02-19 12:25 | Outpatient (CLI) | payer MEDICARE, SELFPAY ==
--- NOTE | 2024-02-19 12:31 | NM_ITS ---
APPROVED REPORT Exam: Nuclear Stress Test Indication: cad, htn, diabetes, hyperlipidemia, fm hx, sob, dizziness Patient Location: Outpatient Stress Tech: Viri Diaz NM Tech:Christine Montes, ARRT, RT (R)(N) Ht: 5 ft 9 in Wt: 220 lbs BSA: 2.15 m2 TID: 1.33 BMI: 32.4 History: cad, htn, diabetes, hyperlipidemia, fm hx, sob, dizziness pt could not lay on stomach for prone images Procedure: Patient received 0.4 mg of intravenous Lexiscan, resting heart rate bpm, resting blood pressure / mmHg, with Lexiscan maximum heart rate achieved was With Lexiscan, patient denied any complaint of chest pain. Cardiac Stress and Resting SPECT Images: Cardiac Stress and Resting SPECT images were obtained using technetium 99m Myoview 32.4 mCi stress and 9.92 mCi at rest. The patient could not lie on his abdomen. Therefore, prone stress imaging could not be performed. This may affect the diagnostic interpretation of the study findings. Resting and stress imaging in supine positions demonstrate a medium sized, moderate, reversible perfusion defect in the basal to mid anterior LV wall. There is also medium sized, moderate, partially reversible perfusion defect in the basal inferior LV wall. There is increase in transit ischemic dilatation ratio (TID 1.33), suggestive of possible multivessel disease or balanced ischemia. Gated imaging demonstrates low-normal global LV systolic function. There is mild hypokinesis of the basal anterior LV wall. LVEF is calculated at 53%. Conclusion: Medium sized, moderate, reversible perfusion defect in the basal to mid anterior LV wall. There is also medium sized, moderate, partially reversible perfusion defect in the basal inferior LV wall. Findings are suggestive of partial reversible ischemia. There is increase in transit ischemic dilatation ratio (TID 1.33), suggestive of possible multivessel disease or balanced ischemia. Gated imaging demonstrates low-normal global LV systolic function. There is mild hypokinesis of the basal anterior LV wall. LVEF is calculated at 53%. Electronically signed by : Amara Mckeon MD 02/20/2024 11:50:18
[2024-02-19] MEDS: SODIUM CHLORIDE 0.9% 10ML SYR (RAD ONLY) 10 ML IV ×2 (14:09)
[2024-02-19] MEDS: REGADENOSON 0.4MG/5ML SYRINGE 0.4 MG IV (14:09)
[2024-02-19] MEDS: ISOTOPE MYOVIEW (PER STUDY) 1 DOSE IV (14:09)
== END 2024-02-19 23:59 | disposition home or self-care (01) ==
LOC: RAD 12:26
PROVIDERS: PCP Family Medicine; Visit Provider Physician Assistant
DX: I25.10 Atherosclerotic heart disease of native coronary artery without angina pectoris (principal)
CPT/HCPCS: 78452; 93017; 93018; A9502; J2785

== ENCOUNTER 2024-03-05 11:49 | Emergency (ER) | payer MEDICARE, SELFPAY ==
--- NOTE | 2024-03-05 12:45 | ED_ITS ---
Discharge Plan Disposition Patient Disposition: Home, Self-Care Condition: Good Prescriptions Prescriptions: No Action losartan 50 mg tablet 50 mg PO DAILY amiodarone 200 mg tablet 200 mg PO DAILY clopidogrel 75 mg tablet 75 mg PO DAILY Patient Comments: TAKE 1 TABLET BY MOUTH ONCE DAILY bisoprolol fumarate 5 mg tablet 5 mg PO DAILY tamsulosin 0.4 mg capsule 0.4 mg PO DAILY simvastatin 20 mg tablet 20 mg PO HS nystatin 100,000 unit/gram cream 1 applic TOPICAL DAILY mupirocin 2 % ointment 1 applic TOPICAL DAILY furosemide 20 mg tablet 20 mg PO DAILY albuterol sulfate 90 mcg/actuation HFA aerosol inhaler 1 puff INHALATION Q6HP PRN (Reason: SOA) pioglitazone 30 mg tablet 30 mg PO DAILY metformin 500 mg tablet extended release 24 hr 500 mg PO DAILY cyclobenzaprine 5 mg tablet 5 mg PO DAILY Xarelto 15 mg tablet 15 mg PO DAILY Xarelto 2.5 mg tablet 2.5 mg PO DAILY Referrals Follow up/Referrals: Columba Rodríguez APRN [Primary Care Provider] - See instructions Activity Restrictions/Add. Instructions Additional Instructions/Restrictions: I recommend for you to start using an electric razor. Use the surgicel material that we gave you to stop minor cuts from bleeding. You could also get an over the counter product called Bleedstop , please ask your pharmacist about it. Follow up with your primary care physician. GO TO THE ER FOR ANY WORSENING SYMPTOMS OR CONCERNS Follow up with your primary care physician to discuss your tendancy to bleed while on the anticoagulants. Clinical Impressions Clinical Impression: correction (current) use of anticoagulants, Laceration of face Print Language Print Language: Divehi Discharge ED Provider: De Rodrigues [facility] General Stated complaint: cut lip/nose shaving ,on blood thinner Time Seen by Provider: 03/05/24 12:45 History of Present Illness Provider Complaint: He states that 2 days ago he cut his upper lip while shaving. He has had trouble getting the wound not not bleed since then. He states that he is on 3 anticoagulants due to heart issues. He came in today to see if there was anything that could be done to keep it from bleeding. Related Data Home Medications ?Medication ?Instructions ?Recorded ?Confirmed albuterol sulfate 90 mcg/actuation 1 puff inhalation Q6HP PRN SOA 03/05/24 03/05/24 aerosol inhaler amiodarone 200 mg tablet 200 mg PO DAILY 03/05/24 03/05/24 bisoprolol fumarate 5 mg tablet 5 mg PO DAILY 03/05/24 03/05/24 clopidogrel 75 mg tablet 75 mg PO DAILY 03/05/24 03/05/24 cyclobenzaprine 5 mg tablet 5 mg PO DAILY 03/05/24 03/05/24 furosemide 20 mg tablet 20 mg PO DAILY 03/05/24 03/05/24 losartan 50 mg tablet 50 mg PO DAILY 03/05/24 03/05/24 metformin 500 mg tablet,extended 500 mg PO DAILY 03/05/24 03/05/24 release 24 hr mupirocin 2 % topical ointment 1 applic topical DAILY 03/05/24 03/05/24 nystatin 100,000 unit/gram topical 1 applic topical DAILY 03/05/24 03/05/24 cream pioglitazone 30 mg tablet 30 mg PO DAILY 03/05/24 03/05/24 rivaroxaban 15 mg tablet (Xarelto) 15 mg PO DAILY 03/05/24 03/05/24 rivaroxaban 2.5 mg tablet (Xarelto) 2.5 mg PO DAILY 03/05/24 03/05/24 simvastatin 20 mg tablet 20 mg PO HS 03/05/24 03/05/24 tamsulosin 0.4 mg capsule 0.4 mg PO DAILY 03/05/24 03/05/24 Allergies Allergy/AdvReac Type Severity Reaction Status Date / Time Penicillins (PENICILLINS) Allergy Unknown I-ITCHING Verified 03/05/24 11:10 [facility] Disclaimer: The information contained in this section may have been updated after the patient was seen, as this information can be updated by other users. 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, word finding difficulty Edema of both lower extremities Decreased pedal pulses Non-healing ulcer of foot Right 3rd distal tip DFU Decreased ROM of right shoulder Right shoulder pain Right shoulder injury Pes planus of both feet Skin lesion Impotence Low back pain Left against medical advice Memory loss Chronic SI joint pain Radiculopathy Neuropathic pain Leg pain, posterior Kidney stone Pre-ulcerative calluses Pain of left great toe Cellulitis of great toe of right foot Incurved toenail Diabetes mellitus HA1c- 8.7% 08/30/23 Onychomycosis Pain in both feet Lower extremity edema Epistaxis Urinary incontinence Weakness Cellulitis, leg Obesity (BMI 30-39.9) Acute delirium Physical deconditioning Multiple renal cysts Diastolic dysfunction SOB (shortness of breath) Microalbuminuria Enlarged prostate History of IBS Acquired lymphedema Atrial flutter On Xarelto Asbestos exposure Tachycardia Abnormal ECG Preoperative testing Allergic rhinitis Dyspnea on exertion Latent tuberculosis by blood test Seen by pulmonology at [facility] and prescribed INH, RFP, B6 but he never took the medicine as prescribed Restrictive lung disease Ingrown toenail of right foot Splinter of toe of left foot Acute bacterial bronchitis Callus of foot Diabetic foot ulcer Acute febrile illness SIRS (systemic inflammatory response syndrome) Left against medical advice Encounter for pre-operative cardiovascular clearance Sepsis Cellulitis Severe sepsis SIRS (systemic inflammatory response syndrome) Bacterial pneumonia Hypokalemia Bronchitis due to COVID-19 virus Pneumonia due to COVID-19 virus COVID-19 virus infection Exposure to COVID-19 virus Viral syndrome Acute bronchitis Hematuria Kidney stone on right side Cough Mental status change resolved HTN (hypertension) Dyspnea HHD (hypertensive heart disease) Pre-op evaluation Diabetes Surgical History History of cardiac cath History of coronary artery stent placement History of cholecystectomy Hx of total knee arthroplasty Family History Other Cancer Cerebral palsy Dementia Diabetes Social History Smoking Status: Never smoker alcohol intake: never counseling provided: none substance use type: denies use current occupational status: employed and retired Travel in the last 8 weeks: None household members: spouse housing: house caffeine: Yes ROS Obtained: Yes All systems reviewed & no additional complaints except as documented Constitutional Constitutional: Denies chills and Denies fever(s) Eyes Eyes: Denies eye discharge ENT Ears, Nose, Mouth, and Throat: Denies dizziness, Denies otalgia and Denies sore throat Cardiovascular Cardiovascular: Denies chest pain Respiratory Respiratory: Denies shortness of breath, Denies chest congestion, Denies cough, Denies stridor and Denies wheezing Gastrointestinal Gastrointestingal: Denies nausea or vomiting Musculoskeletal Musculoskeletal: Reports system reviewed and no additional complaints, except as documented and Denies arthralgias Integumentary/Breasts Skin/Breast: Reports as per HPI Neurologic Neurologic: Denies dizziness and Denies paresthesias Allergic/Immunologic Allergic/Immunologic: Denies wheezing Physical Exam General General appearance: alert and in no apparent distress Head Head exam: atraumatic, normocephalic and normal inspection Eye Eye exam: Present normal appearance, PERRL and EOMI ENT ENT exam: Present normal exam, normal oropharynx, mucous membranes moist, TM's normal bilaterally and normal external ear exam Neck Neck exam: Present normal inspection, full ROM and trachea midline; Absent meningismus or lymphadenopathy Chest Chest inspection: Present normal inspection and symmetric chest wall rise; Absent tenderness Respiratory Respiratory exam: Present normal lung sounds bilaterally; Absent respiratory distress Cardiovascular Cardiovascular exam: Present regular rate and normal rhythm; Absent JVD Abdominal Exam Abdominal exam: Present soft and normal bowel sounds; Absent distention, tenderness or guarding Extremities Exam Extremities exam: Present normal inspection, full ROM and normal capillary refill; Absent calf tenderness Back Exam Back exam: Present normal inspection; Absent tenderness Neurological Exam Neurological exam: Present alert and oriented X3 Psychiatric Psychiatric exam: Present normal affect and normal mood Skin Skin exam: Present other (there is a very superficial laceration on the left side of his upper lip that has a small area of dried blood around it. no active bleeding noted here today. ) Lymphatic Lymphatic Findings: no adenopathy Medical Decision Making Medical Records Screening: Per USPSTF and CDC recommendations, given the prevalence of disease in our region, it is our hospital?s policy to screen for HIV and viral Hepatitis for all patients aged 18 and over and those with ongoing risk factors. Jevon Inquiry Pt receiving controlled substance: No
[2024-03-05 12:50] VITALS: BP 146/68; PULSE 57; RESP 20; TEMP 36.6; O2SAT 98; BMI 33.2
[2024-03-05 13:20] VITALS: BP 146/68; PULSE 57; RESP 20; TEMP 36.6; O2SAT 98
== END 2024-03-05 13:22 | disposition home or self-care (01) ==
PROVIDERS: Emergency Provider Nurse Practitioner Family; PCP Family Medicine
DX: S01.501A Unspecified open wound of lip, initial encounter (principal); W26.8XXA Contact with other sharp object(s), not elsewhere classified, initial encounter
CPT/HCPCS: 99213; G0381

== ENCOUNTER 2024-03-11 08:32 | Day surgery (SDC) | payer MEDICARE, SELFPAY ==
[2024-03-11] VITALS (10 sets, daily range): BP systolic 131–167; BP diastolic 70–94; PULSE 60–85; RESP 16–20; O2SAT 90–100; BMI 34.2
--- NOTE | 2024-03-11 07:14 | IR_ITS ---
APPROVED REPORT Patient Location: Outpatient PROCEDURES Selective coronary angiogram Drug-eluting stent deployment in the ramus intermedius Angioplasty of the left main artery INDICATION Accelerated angina pectoris, Coronary disease, History of coronary artery left main stenting Informed consent was obtained prior to the procedure. COMPLICATIONS NONE Estimated Blood Loss: LESS THAN 10 ML TECHNIQUE One percent lidocaine used to anesthetize the right anterior aspect of the wrist. The right radial artery was accessed via the Seldinger technique. A 6 Romansh sheath was placed in the right radial artery. 2.5 mg of Verapamil, 800 mcg of nitroglycerin, 1mg Lidocaine and 5000 U Heparin were given through the arterial sheath. The 6 Romansh JL 3 guide catheter was used to perform selective coronary angiogram. At the end of the diagnostic angiogram therapeutic Was administered giving a therapeutic ACT and the guide catheter was placed in left main artery followed by Choice PT extra-support wire placed into the ramus intermedius. A 1.5 mm noncompliant balloon was used to predilate the struts from the left main artery going into the circumflex artery and in the ramus intermedius. Eventually this was upsized to a 2 mm compliant balloon. Despite a guide liner there still was not adequate support to deliver larger caliber balloons therefore the catheter was switched out for an EBU 3.75. 3.75 was used to intubate the left main artery and a Choice PT extra-support wire was placed into the circumflex artery followed by the ramus intermedius. A 2.5 mm balloon was used to predilate the stenosis in the left main artery going into the ramus intermedius. A 2.75 x 22 mm [place] frontier stent was deployed in the ostial proximal portion of the ramus intermedius at 20 prakash reducing the critical stenosis to 0%. This balloon was then brought back and deployed in the left main artery and the 20 prakash to further post dilate the struts going into the circumflex artery. At the end the procedure the apparatus was removed the sheath was removed and hemostasis was achieved and TR banding patient was transferred to the postop putting in stable condition ANGIOGRAPHIC RESULTS The left main artery Has a stent in the proximal segment which extends into the LAD and circumflex artery which is widely patent The left anterior descending artery Has a stent originating from the left main artery extending to the proximal segment which is widely patent with minimal in-stent restenosis and excellent distal transitioning. There are additional 30 to 40% stenoses in the LAD. The circumflex artery There is a large dominant vessel which has an ostial 30% stenosis. It then gives rise to a large ramus intermedius which has a proximal concentric 90% stenosis. The remaining dominant right coronary artery is widely patent The right coronary artery Was not engaged to do it knowing to be a vestigial vessel The DALTON ventriculogram reveals Not performed The left ventricular end-diastolic pressure Not measured IMPRESSION Severe to critical disease in a large ramus intermedius with successful stenting reducing lesion to 0% with 1 drug-eluting stent PLAN 1. Dual antiplatelet therapy 2. Cardiac rehabilitation 3. Avoidance of tobacco products 4. Risk factor modification 5. LDL less than 55 to be achieved with high intensity statin Electronically signed by : Shay Biggs MD 03/11/2024 12:51:11
[2024-03-11 09:07] LABS: Basophils % 0.8 % (0.1-2.0); Eosinophils # 0.1 K/mm3 (0.0-0.4); Eosinophils % 2.6 % (0.1-12.0); Hematocrit 44.1 % (42.0-52.0); Hemoglobin 14.6 g/dL (14.1-18.0); Lymphocytes # 1.4 K/mm3 (0.7-4.5); Lymphocytes % 29.2 % (10-50); Mean Corpuscular HGB Conc 33.2 g/dL (31.8-35.4); Mean Corpuscular Volume 84.4 fl (80-94); Mean Platelet Volume 7.7 fl (7.4-10.4); Monocytes # 0.4 K/mm3 (0.1-1.0); Monocytes % 9.4 % (1.7-9.3); Neutrophils # 2.7 K/mm3 (1.8-7.8); Neutrophils % 57.9 % (37.0-80.0); Platelet Count 192 K/mm3 (142-424); Red Blood Count 5.23 M/mm3 (4.60-6.20); Red Cell Distribution Width 15.4 % (11.5-17.5); White Blood Count 4.7 K/mm3 (4.8-10.8)
[2024-03-11 09:33] LABS: Anion Gap 10.9 mEq/L (5-15); Blood Urea Nitrogen 26 mg/dl (9-20); Calcium 9.1 mg/dl (8.4-10.2); Carbon Dioxide 24 mmol/L (22.0-30.0); Chloride 106 mmol/L (98-107); Creatinine Clearance Estimated 82 mL/min (50-200); Estimated Glomerular Filt Rate 60 ml/min (>60); GFR (African American) 72 ML/MIN (>60); Glucose 128 mg/dl (74-100); Potassium 3.9 mmoL/L (3.5-5.1); Sodium 137 mmol/L (136-145)
[2024-03-11] MEDS: diphenhydrAMINE 50MG/ML VIAL 50 MG IV (10:33)
[2024-03-11] MEDS: LIDOCAINE 1% 10ML MDV 20 ML IJ (10:33)
[2024-03-11] MEDS: NITROGLYCERIN 800MCG/8ML SYR (CATH LAB) 800 MCG IA (10:34)
[2024-03-11] MEDS: HEPARIN 1,000 UNITS/500ML NS (CATH LAB) 3000 UNIT IV (10:34)
[2024-03-11] MEDS: VERAPAMIL 2.5MG/ML 2ML VIAL 2.5 MG IV (10:34)
[2024-03-11] MEDS: FENTANYL 100MCG/2ML VIAL 50 MCG IV (10:35)
[2024-03-11] MEDS: 0.9 % SODIUM CHLORIDE 500 ML 25 ML IV (10:35)
[2024-03-11] MEDS: MIDAZOLAM HCL 1MG/ML 5ML VIAL 1 MG IV (10:35)
[2024-03-11] MEDS: HEPARIN 1,000 UNITS/ML 10ML VIAL (CATH LAB) 10000 UNIT IV (10:41)
[2024-03-11] MEDS: ASPIRIN 325MG TABLET 325 MG PO (11:50)
[2024-03-11] MEDS: CLOPIDOGREL 75MG TAB 75 MG PO (11:51)
[2024-03-11] MEDS: IOPAMIDOL-370 (76%);100ML BOTTLE 70 ML IV (14:25)
[2024-03-11 14:27] LABS: CATHL Activated Clotting Time 296 SEC (74-125)
== END 2024-03-11 14:33 | disposition home or self-care (01) ==
PROVIDERS: PCP Family Medicine; Visit Provider Internal Medicine
DX: I25.118 Atherosclerotic heart disease of native coronary artery with other forms of angina pectoris (principal); I48.3 Typical atrial flutter; I25.2 Old myocardial infarction; E11.9 Type 2 diabetes mellitus without complications; Z79.01 Long term (current) use of anticoagulants; Z79.899 Other long term (current) drug therapy
CPT/HCPCS: 80048; 85025; 85347; 92920; 92928; 99152; 99153; C1725; C1769; C1874; C9600; J1200; J1644; J2250; J3010; Q9967

== ENCOUNTER 2024-03-15 08:52 | Outpatient (CLI) | payer MEDICARE, SELFPAY ==
[2024-03-15 11:21] LABS: White Blood Count 5.7 K/mm3 (4.8-10.8)
[2024-03-15 11:24] LABS: Hematocrit 40.2 % (42.0-52.0); Mean Corpuscular HGB Conc 32.3 g/dL (31.8-35.4); Mean Corpuscular Hemoglobin 27.2 pg (27.0-31.2); Mean Corpuscular Volume 84.1 fl (80-94); Mean Platelet Volume 10.2 fl (7.4-10.4); Neutrophils % 68.8 % (37.0-80.0); Platelet Count 194 K/mm3 (142-424); Red Blood Count 4.78 M/mm3 (4.60-6.20); Red Cell Distribution Width 15.6 % (11.5-17.5)
[2024-03-15 11:25] LABS: Basophils % 0.5 % (0.1-2.0); Eosinophils # 0.2 K/mm3 (0.0-0.4); Eosinophils % 4.1 % (0.1-12.0); Lymphocytes # 0.9 K/mm3 (0.7-4.5); Monocytes # 0.6 K/mm3 (0.1-1.0); Monocytes % 10.2 % (1.7-9.3); Neutrophils # 3.9 K/mm3 (1.8-7.8)
[2024-03-15 11:41] LABS: Chloride 107 mmol/L (98-107); Sodium 133 mmol/L (136-145)
[2024-03-15 11:42] LABS: Potassium 4.5 mmoL/L (3.5-5.1)
[2024-03-15 11:44] LABS: Blood Urea Nitrogen 25 mg/dl (9-20); Estimated Glomerular Filt Rate 66 ml/min (>60); GFR (African American) 80 ML/MIN (>60)
[2024-03-15 11:45] LABS: Anion Gap 6.5 mEq/L (5-15); Calcium 9.1 mg/dl (8.4-10.2); Carbon Dioxide 24 mmol/L (22.0-30.0); Glucose 119 mg/dl (74-100)
== END 2024-03-15 23:59 | disposition home or self-care (01) ==
LOC: RT 04-01 08:53
PROVIDERS: Internal Medicine; PCP Family Medicine; Visit Provider Internal Medicine Pulmonary Disease
DX: I25.10 Atherosclerotic heart disease of native coronary artery without angina pectoris (principal); J84.9 Interstitial pulmonary disease, unspecified
CPT/HCPCS: 36415; 80048; 85025

== ENCOUNTER 2024-05-01 08:52 | Outpatient (CLI) | payer MEDICARE, SELFPAY ==
[2024-05-01 18:52] LABS: Hemoglobin A1C 7.1 % (4.0-6.0)
== END 2024-05-01 23:59 | disposition home or self-care (01) ==
LOC: LAB.DROPOF 05-03 08:53
PROVIDERS: PCP Family Medicine; Visit Provider Family Medicine
DX: E11.9 Type 2 diabetes mellitus without complications (principal)
CPT/HCPCS: 83036

== ENCOUNTER 2024-06-05 10:21 | Inpatient (IN) | payer MEDICARE, SELFPAY ==
[2024-06-05] VITALS (20 sets, daily range): BP systolic 101–150; BP diastolic 60–91; PULSE 60–89; RESP 16–20; TEMP 36.5–36.8; O2SAT 95–99; BMI 32.3
--- NOTE | 2024-06-05 10:32 | ECG_ITS ---
APPROVED REPORT Exam: Resting ECG HR:82 bpm ECG Measurements Heart Rate 82 AXES WI 129 P -10 QRSd 90 QRS 56 QT 362 T 54 QTc 401 Conclusion SINUS RHYTHM WITH SINUS ARRHYTHMIA MODERATE ST DEPRESSION [0.05+ mV ST DEPRESSION] ABNORMAL ECG Electronically signed by : JAIME WALKER, 06/07/2024 10:54:55
--- NOTE | 2024-06-05 10:40 | PC.NURSE ---
DR BENITEZ AT BEDSIDE
--- NOTE | 2024-06-05 10:42 | XR_ITS ---
FINAL REPORT CLINICAL HISTORY: chest pain, TIGHTNESS MIDSTERNAL COMPARISON: 05/12/2023 FINDINGS: SINGLE VIEW CHEST The heart is normal in size. The mediastinum is unremarkable. There are mild chronic changes at the bases. There is no pneumothorax. IMPRESSION: No acute process. Reviewed, Interpreted and Dictated by Nirav Hernandes MD Transcribed by Shahla Iglesias Authenticated and [facility]
[2024-06-05 10:50] LABS: Basophils # 0.1 K/mm3 (0-0.2); Basophils % 0.7 % (0.1-2.0); Eosinophils # 0.1 K/mm3 (0.0-0.4); Eosinophils % 1.1 % (0.1-12.0); Hematocrit 40.9 % (42.0-52.0); Hemoglobin 13.7 g/dL (14.1-18.0); Lymphocytes # 1.2 K/mm3 (0.7-4.5); Lymphocytes % 16.6 % (10-50); Mean Corpuscular HGB Conc 33.5 g/dL (31.8-35.4); Mean Corpuscular Hemoglobin 26.9 pg (27.0-31.2); Mean Corpuscular Volume 80.2 fl (80-94); Mean Platelet Volume 10.2 fl (7.4-10.4); Monocytes # 0.8 K/mm3 (0.1-1.0); Monocytes % 10.8 % (1.7-9.3); Neutrophils # 5.1 K/mm3 (1.8-7.8); Neutrophils % 70.5 % (37.0-80.0); Platelet Count 215 K/mm3 (142-424); Red Cell Distribution Width 13.6 % (11.5-17.5); White Blood Count 7.2 K/mm3 (4.8-10.8)
--- NOTE | 2024-06-05 10:53 | PC.NURSE ---
XR AT BEDSIDE
--- NOTE | 2024-06-05 10:59 | ED_ITS ---
Discharge Plan Disposition Patient Disposition: Admitted Clinical Impressions Clinical Impression: NSTEMI (non-ST elevated myocardial infarction) Discharge ED Provider: Ramon Martínez Adult HPI General Chief complaint: Abdominal Pain Stated complaint: tightness in chest, SOA Time Seen by Provider: 06/05/24 10:37 Mode of Arrival: Ambulatory Source of Information: Patient Description of Symptoms (Recalled from ER Triage Doc. by RN): pt has been having epigastric chest tightness since starting monjaro a month ago, no current distress and vitals WNL upon triage History of Present Illness HPI narrative: Mable Alford is a 73 male with a history of coronary artery disease, A- fib/flutter, type 2 diabetes who presents to the emergency department for complaints of chest tightness. The patient states that he started taking Mounjaro approximately 1 month ago and is lost 15 pounds since then. Over the last 2 weeks, he reports intermittent feelings of chest tightness throughout his anterior chest with associated shortness of breath. He states that this worsened last night and was more constant last night but had resolved as of this morning. He notes that he has rheumatoid arthritis and is scheduled to have surgery in the future on his shoulders and is unsure if this is contributing to his pain. He denies any shortness of breath or chest pain currently. He denies any recent abdominal pain, nausea or vomiting or fevers. He states that otherwise he has been in his normal state of health other than having a decreased appetite and mild diarrhea since starting Mounjaro. Patient does note that he has coronary stents and is currently on Plavix. Related Data Home Medications ?Medication ?Instructions ?Recorded ?Confirmed albuterol sulfate 90 mcg/actuation 1 puff inhalation Q6HP PRN SOA 03/05/24 06/05/24 aerosol inhaler bisoprolol fumarate 5 mg tablet 5 mg PO DAILY 03/05/24 06/05/24 clopidogrel 75 mg tablet 75 mg PO DAILY 03/05/24 06/05/24 cyclobenzaprine 5 mg tablet 5 mg PO DAILY 03/05/24 06/05/24 furosemide 20 mg tablet 20 mg PO DAILY 03/05/24 06/05/24 mupirocin 2 % topical ointment 1 applic topical DAILY 03/05/24 06/05/24 nystatin 100,000 unit/gram topical 1 applic topical DAILY 03/05/24 06/05/24 cream rivaroxaban 15 mg tablet (Xarelto) 15 mg PO DAILY 03/05/24 06/05/24 tamsulosin 0.4 mg capsule 0.4 mg PO DAILY 03/05/24 06/05/24 tramadol 50 mg tablet 50 mg PO TID 03/15/24 06/05/24 simvastatin 20 mg tablet 20 mg PO HS 06/05/24 06/05/24 Previous Rx's ?Medication ?Instructions ?Recorded albuterol sulfate 90 mcg/actuation See Rx Instructions .Route 05/16/24 aerosol inhaler .COMPLEX #72 grams tirzepatide 2.5 mg/0.5 mL See Rx Instructions .Route 05/22/24 subcutaneous pen injector .COMPLEX #2 mL (Mounjaro) metformin 1,000 mg tablet 1,000 mg PO BID #60 tabs 05/29/24 ondansetron HCl 4 mg tablet 4 mg PO DAILY PRN nausea and 05/29/24 vomiting #90 tabs Allergies Allergy/AdvReac Type Severity Reaction Status Date / Time Penicillins (PENICILLINS) Allergy Unknown I-ITCHING Verified 05/01/24 15:48 [facility] Disclaimer: The information contained in this section may have been updated after the patient was seen, as this information can be updated by other users. Medical History IBS (irritable bowel syndrome) Latent tuberculosis Rheumatoid arthritis Viral gastroenteritis Laceration of face Atypical angina NSTEMI (non-ST elevated myocardial infarction) Atrial flutter Asbestos exposure Tachycardia Abnormal ECG Preoperative testing Episodic confusion Allergic rhinitis Dyspnea on exertion Latent tuberculosis by blood test Restrictive lung disease Left sided abdominal pain Left shoulder strain Left groin pain Claustrophobia Chronic cough Cognitive complaints Edema of both lower extremities Decreased pedal pulses Non-healing ulcer of foot Decreased ROM of right shoulder Right shoulder pain Right shoulder injury Pes planus of both feet Skin lesion Impotence Low back pain Left against medical advice Memory loss Chronic SI joint pain Radiculopathy Neuropathic pain Leg pain, posterior Kidney stone Ingrown toenail of right foot Pre-ulcerative calluses Splinter of toe of left foot Pain of left great toe Cellulitis of great toe of right foot Acute bacterial bronchitis Incurved toenail Diabetes mellitus Onychomycosis Pain in both feet Callus of foot Diabetic foot ulcer Acute febrile illness SIRS (systemic inflammatory response syndrome) Left against medical advice Lower extremity edema Epistaxis Encounter for pre-operative cardiovascular clearance Sepsis Urinary incontinence Weakness Cellulitis, leg Obesity (BMI 30-39.9) Acute delirium Cellulitis Severe sepsis SIRS (systemic inflammatory response syndrome) Physical deconditioning Bacterial pneumonia Hypokalemia Bronchitis due to COVID-19 virus Pneumonia due to COVID-19 virus COVID-19 virus infection Exposure to COVID-19 virus Viral syndrome Acute bronchitis Hematuria Kidney stone on right side Multiple renal cysts Cough Diastolic dysfunction Mental status change resolved HTN (hypertension) Dyspnea SOB (shortness of breath) HHD (hypertensive heart disease) Pre-op evaluation Microalbuminuria Enlarged prostate History of IBS Diabetes Acquired lymphedema Surgical History History of cardiac cath History of total right knee replacement History of rotator cuff surgery History of coronary artery stent placement History of cholecystectomy Hx of total knee arthroplasty Family History Other Cancer Cerebral palsy Dementia Diabetes Social History (Updated 06/05/24 @ 13:07 by Marlyn Cabrera, LUCIE) Smoking Status: Never smoker alcohol intake: never counseling provided: none substance use type: denies use current occupational status: employed and retired Travel in the last 8 weeks: None household members: spouse housing: house caffeine: Yes Other Medical History Have you received the Flu Vaccine for this season: No Have you received the Pneumonia Vaccine: Yes ROS Obtained: Yes Systems reviewed as appropriate & no additional complaints except as documented Physical Exam General General appearance: alert and in no apparent distress Head Head exam: atraumatic Eye Eye exam: Present normal appearance ENT ENT exam: Present normal external ear exam Neck Neck exam: Present full ROM Chest Chest inspection: Present symmetric chest wall rise Respiratory Respiratory exam: Present normal lung sounds bilaterally; Absent respiratory distress Cardiovascular Cardiovascular exam: Present regular rate and normal rhythm Abdominal Exam Abdominal exam: Present soft; Absent tenderness or guarding exam: Present deferred Extremities Exam Extremities exam: Present normal inspection Back Exam Back exam: Present normal inspection Neurological Exam Neurological exam: Present alert and oriented X3 Psychiatric Psychiatric exam: Present normal affect Skin Skin exam: Present warm and dry Medical Decision Making Medical Records Screening: Per USPSTF and CDC recommendations, given the prevalence of disease in our region, it is our hospital?s policy to screen for HIV and viral Hepatitis for all patients aged 18 and over and those with ongoing risk factors. Jevon Inquiry Pt receiving controlled substance: No Vital Signs: 06/05/24 10:39 06/05/24 12:14 06/05/24 12:18 Temperature 98.2 F 98.2 F Temperature Source Oral Pulse Rate 68 Pulse Rate [Left Radial] 85 Respiratory Rate 20 20 Blood Pressure 150/88 H Blood Pressure [Right Arm] 133/78 Blood Pressure Mean [Right Arm] 96 02 Sat by Pulse Oximetry 99 Oxygen Delivery Method Room Air Room Air Room Air Lab Data Lab Results 06/05/24 10:38: WBC 7.2, RBC 5.10, Hgb 13.7 L, Hct 40.9 L, MCV 80.2, MCH 26.9 L, MCHC 33.5, RDW 13.6, Plt Count 215, MPV 10.2, Neut % (Auto) 70.5, Lymph % (Auto) 16.6, Rice % (Auto) 10.8 H, Eos % (Auto) 1.1, Baso % (Auto) 0.7, Neut # (Auto) 5.1, Lymph # (Auto) 1.2, Rice # (Auto) 0.8, Eos # (Auto) 0.1, Baso # (Auto) 0.1, PT 14.1 H, INR 1.29 H, Sodium 137, Potassium 3.9, Chloride 105, Carbon Dioxide 23, Anion Gap 12.9, BUN 19, Creatinine 1.10, Estimated Creat Clear 87, Estimated GFR 66, Est GFR ( Amer) 80, Glucose 147 H, Calcium 9.5, Total Bilirubin 1.5 H, AST 71 H, ALT 42, Alkaline Phosphatase 74, Troponin I 1.97 H, NT-Pro-B Natriuret Pep 1220 H, Total Protein 7.5, Albumin 4.7, Globulin 2.8, Albumin/Globulin Ratio 1.7 06/05/24 10:38 06/05/24 10:38 Orders (Tests/Meds): ED MEDICATIONS Generic Name Dose Route Start Last Admin Trade Name Freq PRN Reason Stop Dose Admin Aspirin 81 mg 06/06/24 09:00 Aspirin Ec 81mg Tablet PO 07/06/24 08:59 DAILY SWATHI Atorvastatin Calcium 40 mg 06/05/24 21:00 Atorvastatin 40mg Tablet PO 07/05/24 20:59 HS SWATHI Clopidogrel Bisulfate 75 mg 06/05/24 14:45 06/05/24 16:00 Clopidogrel 75mg Tab PO 07/05/24 14:44 75 mg DAILY SWATHI Administration Enoxaparin Sodium 100 mg 06/05/24 13:00 06/05/24 13:09 Enoxaparin 100mg/Ml Syringe 1 mg/kg (100 mg) 07/05/24 12:59 100 mg SUBCUT Administration BID SWATHI Fentanyl Citrate 50 mcg 06/05/24 13:50 06/05/24 14:33 Fentanyl 100mcg/2ml Vial IV 06/06/24 01:50 75 mcg Q3MINP PRN Administration Sedation Fentanyl Citrate 25 mcg 06/05/24 13:50 Fentanyl 100mcg/2ml Vial IV 06/06/24 01:50 Q3MINP PRN Sedation Flumazenil 0.2 mg 06/05/24 13:50 Flumazenil 0.1mg/Ml 5ml Vial IV 06/06/24 01:50 NEEDED PRN Sedation Heparin Sodium (Porcine) 10,000 unit 06/05/24 13:50 06/05/24 14:25 Heparin 1,000 Units/Ml 10ml Vial (Tire Bagger) IV 06/05/24 17:50 5,000 unit NEEDED PRN Administration Emergency Box Hemmer Automatic Hydralazine HCl 20 mg 06/05/24 13:50 Hydralazine 20mg/Ml Vial IV 06/05/24 17:50 ONCE PRN sbp>160 Adenosine 180 mg/ Sodium 90 mls @ 536.42 mls/hr 06/05/24 13:50 Chloride IV 06/05/24 17:50 ONCE PRN fractional flow reserve 180 MCG/KG/MIN Adenosine 90 mg/ Sodium 90 mls @ 1,072.84 mls/hr 06/05/24 13:50 Chloride IV 06/05/24 17:50 ONCE PRN fractional flow reserve 180 MCG/KG/MIN Sodium Chloride 1,000 mls @ 25 mls/hr 06/05/24 14:00 06/05/24 14:07 Sod Chloride 0.9% 500ml Bag IV 06/06/24 13:50 25 mls/hr .Q25H SWATHI Administration Labetalol HCl 20 mg 06/05/24 13:50 Labetalol 20mg/4ml Syringe IV 06/05/24 17:50 ONCE PRN sbp>160 Metoprolol Succinate 25 mg 06/05/24 14:45 06/05/24 16:00 Metoprolol Succinate Xl 25mg Tablet PO 07/05/24 14:44 25 mg DAILY SWATHI Administration Midazolam HCl 1 mg 06/05/24 13:50 Midazolam 2mg/2ml Vial IV 06/06/24 01:50 Q3MINP PRN Sedation Midazolam HCl 1 mg 06/05/24 13:50 06/05/24 14:32 Midazolam Hcl 1mg/Ml 5ml Vial IV 06/06/24 01:50 4 mg Q3MINP PRN Administration Sedation Miscellaneous 1 each 06/05/24 14:37 Consider Pt For Dual Antiplatelet Therapy At Discharge-Stent NOTAPPLIC 07/05/24 14:36 NEEDED PRN Reminder for s/p stent Naloxone HCl 0.4 mg 06/05/24 13:50 Naloxone 0.4mg/Ml Vial IV 06/06/24 01:50 Q5MINP PRN Decreased Respirations Nitroglycerin 800 mcg 06/05/24 13:50 06/05/24 14:08 Nitroglycerin 800mcg/8ml Syr (Tire Bagger) IA 06/05/24 17:50 800 mcg NEEDED PRN Administration Emergency Box Hemmer Automatic Nitroglycerin 0.4 mg 06/05/24 14:37 Nitroglycerin 0.4mg Sl Tablet SL 07/05/24 14:36 Q5MINP PRN Chest Pain Protamine Sulfate 50 mg 06/05/24 13:50 Protamine Sulfate 50mg/5ml Vial (Tire Bagger) IV 06/05/24 17:50 ONCE PRN act>200 Sodium Chloride 10 ml 06/05/24 13:50 Sodium Chloride 0.9% 10ml Flush Syringe IV 07/05/24 13:49 NEEDED PRN Maintain IV Site Discontinued Medications Generic Name Dose Route Start Last Admin Trade Name Freq PRN Reason Stop Dose Admin Aspirin 325 mg 06/05/24 11:32 06/05/24 11:42 Aspirin 325mg Tablet PO 06/05/24 11:33 325 mg ONCE ONE Administration Diphenhydramine HCl 50 mg 06/05/24 12:32 06/05/24 14:07 Diphenhydramine 50mg/Ml Vial IV 06/05/24 12:33 50 mg ONCE ONE Administration Heparin Sodium/Sodium Chloride 3,000 unit 06/05/24 13:50 06/05/24 14:08 Heparin 1,000 Units/500ml Ns (Tire Bagger) IV 06/05/24 13:51 3,000 unit ONCE ONE Administration Iopamidol 150 ml 06/05/24 14:47 06/05/24 14:48 Iopamidol-370 (76%);100ml Bottle IV 06/05/24 14:48 150 ml ONCE ONE Administration Lidocaine HCl 20 ml 06/05/24 13:50 06/05/24 14:08 Lidocaine 1% 5ml Pf Vial IJ 06/05/24 13:51 Not Given ONCE ONE Lidocaine HCl 20 ml 06/05/24 13:50 06/05/24 14:06 Lidocaine 1% 10ml Mdv IJ 06/05/24 13:51 10 ml ONCE ONE Administration Perflutren Lipid Microsphere 2 mg 06/05/24 16:22 06/05/24 16:24 Definity Us Echo Contrast 2ml Inj IV 06/05/24 16:23 2 mg ONCE ONE Administration Verapamil HCl 2.5 mg 06/05/24 13:50 06/05/24 14:06 Verapamil 2.5mg/Ml 2ml Vial IV 06/05/24 13:51 2.5 mg ONCE ONE Administration ORDERS Category Date Time Status CXR --portable [XR chest portable] Stat Exams 06/05/24 10:42 Completed BNP [NT Pro Brain Natriuretic Pep.] Stat Lab 06/05/24 10:38 Completed CBC w/Auto Diff [Complete Blood Count Auto Diff] Stat Lab 06/05/24 10:38 Completed CMP [Comprehensive Metabolic Panel] Stat Lab 06/05/24 10:38 Completed PT INR [Prothrombin Time INR] Stat Lab 06/05/24 10:38 Completed Troponin I Q3H Lab 06/05/24 12:08 Completed Troponin I Q3H Lab 06/05/24 16:45 Ordered Troponin I Stat Lab 06/05/24 10:38 Completed CA echo doppler complete Routine Y 06/05/24 11:56 Completed ECG Data Tracing #1: I reviewed this ECG and interpreted as documented below: Normal sinus rhythm with ventricular rate of [address] elevation or depression. Normal NM interval of 129. QTc normal at 401. Medical Decision Narrative: [place] Alfodr is a 73 male who presents to the emergency department for complaints of chest tightness. The patient states that he started taking Mounjaro approximately 1 month ago and is lost 15 pounds since then. Over the last 2 weeks, he reports intermittent feelings of chest tightness throughout his anterior chest with associated shortness of breath. He states that this worsened last night and was more constant last night but had resolved as of this morning. He notes that he has rheumatoid arthritis and is scheduled to have surgery in the future on his shoulders and is unsure if this is contributing to his pain. He denies any shortness of breath or chest pain currently. He denies any recent abdominal pain, nausea or vomiting or fevers. He states that otherwise he has been in his normal state of health other than having a decreased appetite and mild diarrhea since starting Mounjaro. Patient does note that he has coronary stents and is currently on Plavix. On arrival, patient's blood pressure 133/78, heart rate within normal limits, breathing comfortably on room air with oxygen saturation 99% SpO2. Physical exam, as stated above, revealed an overall well-appearing male in no acute distress. Cardiopulmonary exam revealed no wheezing, rales or rhonchi. He has no murmurs or pericardial friction rub. Abdomen is soft, nontender nondistended. Differential diagnosis includes, but is not limited to: ACS, pneumonia, GERD, medication side effect, costochondritis, pericarditis, among others. Workup in the emergency department included: EKG, chest x-ray, troponin, BNP, CMP, CBC with differential, PT/INR EKG reassuring without evidence of STEMI or pericarditis. See interpretation above Chest x-ray interpreted by me personally prior to official radiology read. No focal consolidation, no pneumothorax, no widening of the mediastinum. See final radiology report for details. Patient's laboratory workup showed no leukocytosis. INR of 1.29 CMP unremarkable nonactionable except for mildly elevated glucose of 147 and total bilirubin mildly elevated at 1.5 with AST of 71 but otherwise unremarkable. Initial troponin is significantly elevated at 1.97 with repeat 2-hour troponin pending. BNP is also elevated at 1220, however this is around his baseline. Given the patient's significantly elevated troponin in the setting of chest pain, this is concerning for NSTEMI. Patient was given 325 mg of aspirin and did state that he had not taken his aspirin today. I discussed the patient's case with the cardiology team, Kiesha Laurent, who agreed to evaluate the patient and recommended admission to the hospital medicine service. I then discussed the patient's case with Dr. Harris, who agreed to admit the patient. Shortly after admission, patient was taken for left heart catheterization. Critical Care Critical Care Time Critical Care Time: Yes Attestation: On 06/05/24, the high probability of a clinically significant, sudden or life threatening deterioration of the following system(s) required my full and direct attention, intervention and personal management. The time I documented below is in addition to time spent performing reported procedures but includes the following listed in this critical care notation. Total Time Total Critical Care Time: 35
[2024-06-05 11:01] LABS: Alanine Aminotransferase 42 U/L (12-78); Albumin Level 4.7 g/dl (3.5-5.0); Alkaline Phosphatase 74 U/L (38-126); Anion Gap 12.9 mEq/L (5-15); Aspartate Amino Transferase 71 U/L (17-59); Bilirubin,Total 1.5 mg/dl (0.2-1.3); Blood Urea Nitrogen 19 mg/dl (9-20); Calcium 9.5 mg/dl (8.4-10.2); Carbon Dioxide 23 mmol/L (22.0-30.0); Chloride 105 mmol/L (98-107); Creatinine Clearance Estimated 87 mL/min (50-200); Estimated Glomerular Filt Rate 66 ml/min (>60); GFR (African American) 80 ML/MIN (>60); Glucose 147 mg/dl (74-100); Potassium 3.9 mmoL/L (3.5-5.1); Sodium 137 mmol/L (136-145)
[2024-06-05 11:12] LABS: NT Pro Brain Natriuretic Pep. 1220 pg/mL (0-125)
[2024-06-05 11:21] LABS: Albumin/Globulin Ratio 1.7 (1.1-1.8); Globulin 2.8 g/dL (1.3-3.2); Total Protein,Serum 7.5 g/dl (6.3-8.2)
[2024-06-05 11:31] LABS: Troponin I 1.97 ng/ml (0.00-0.034)
[2024-06-05] MEDS: ASPIRIN 325MG TABLET 325 MG PO (11:42)
--- NOTE | 2024-06-05 11:44 | PC.NURSE ---
Called Cardiology per Dr Martínez to speak with them about this pt. Kiesha is speaking with Dr Martínez now
[2024-06-05 11:49] LABS: INR 1.29 (0.9-1.1); Prothrombin Time 14.1 seconds (10.1-12.5)
--- NOTE | 2024-06-05 11:56 | CA_ITS ---
APPROVED REPORT EXAM: Comprehensive 2D, Doppler, and color-flow Echocardiogram Independent Distributor: Malgorzata Gonzalez RVT Ht: 5 ft 9 in Wt: 219lbs BSA: 2.15 BP: 133/78 mmHg Indications: CP,SOA,NSTEMI,CAD,A-FIB,HTN,DM Echo Enhancing Agent Indication: Endocardial border delineation Agent(s) / Amount(s) Used: Definity 2 cc 2D Dimensions LA Volume 31.60 mL LA Volume Index 14.70 mL/m2 (M/F) 16-34 EF AP4 56.10 % GL Strain -17.1 % M-Mode Dimensions RVDd 1.77 cm (0.9-2.6) LA Diam 3.11 cm (1.9-4.0) LVDd 4.93 cm (3.5-5.7) LVDs 3.70 cm (3.5-5.7) IVSd 1.07 cm (0.6-1.1) PWd 0.64 cm (0.6-1.1) EF (Teich) 49.20% FS 24.90% EDV (Teich) 114.40 mL ESV (Teich) 58.10 mL LV Diastology E Decel Time 213 (160-240 msec) E/A Ratio 0.9 Aortic Valve AO Peak GR. 3.40 mmHg Mitral Valve MV E Max Parmjit. 100.0 (40-130 cm/s) MV A Velocity 110.0 (40-130 cm/s) E/A Ratio 0.91 MV PHT 62.0 ms Pulmonary Valve PV Peak Velocity 51.0 (50-150 cm/s) Left Ventricle The left ventricle is normal size. The left ventricular systolic function is low normal. There is increased LV wall thickness. Diastolic function is indeterminate. There is normal LV segmental wall motion. No left ventricle thrombus noted on this study. LVEF is 50%. Right Ventricle The right ventricle is not very well-visualized, but grossly appears normal in size and function. Atria The left atrium size is normal. The right atrium size is normal. The interatrial septum is not well-visualized. Aortic Valve The aortic valve is mildly thickened. There is no aortic valvular stenosis. Trace aortic regurgitation. Mitral Valve The mitral valve is mildly thickened. No evidence of mitral valve stenosis. Mild mitral regurgitation. Tricuspid Valve Tricuspid valve is grossly normal in structure and function. Trace tricuspid regurgitation. There is insufficient TR jet to estimate RVSP. Pulmonic Valve The pulmonary valve is normal in structure. Trace pulmonic regurgitation. Great Vessels The aortic root is normal in size. IVC is normal in size and collapses >50% with inspiration. Pericardium There is no pericardial effusion. Other Information Study Quality: Technically Difficult Conclusion Technically difficult study due to poor acoustic windows. Low normal LV systolic function (LVEF 50%). RV not very well-visualized, but grossly appears normal in size and function. No significant valvular stenosis or regurgitation. Electronically signed by : Amara Mckeon MD 06/06/2024 00:10:03
--- NOTE | 2024-06-05 12:01 | PC.NURSE ---
pt to be admitted per hospital medicine for nstemi, house sup aware for bed assignment
--- NOTE | 2024-06-05 12:06 | PC.NURSE ---
francisco at bedside
--- NOTE | 2024-06-05 12:39 | IR_ITS ---
APPROVED REPORT Patient Location: Inpatient Monogram Technician: KIRTI Jernigan RT (R) PROCEDURES Left heart catheterization Left ventriculogram Selective coronary angiogram Drug-eluting stent deployment to the circumflex artery Angioplasty to the ostial LAD INDICATION Acute non-ST elevation myocardial infarction, Coronary artery disease Informed consent was obtained prior to the procedure. COMPLICATIONS None Estimated Blood Loss: Less than 10 mls TECHNIQUE One percent lidocaine used to anesthetize the right anterior aspect of the wrist. The right radial artery was accessed via the Seldinger technique. A 6 [place] sheath was placed in the right radial artery. 2.5 mg of Verapamil, 800 mcg of nitroglycerin, 1mg Lidocaine and 5000 U Heparin were given through the arterial sheath. The 6 [place] JL 3 catheter was also used to perform left heart catheterization, left ventriculogram and selective coronary angiogram. At the end the diagnostic angiogram therapeutic Was administered given a therapeutic ACT and the guide catheter was placed in left main artery followed by Choice PT extra-support wire down the circumflex artery. A 2 mm x 12 mm compliant balloon was deployed at 16 prakash predilated the stenosis. Following this a 4 mm x 18 mm [place] frontier stent was placed in left main artery extending into the proximal circumflex artery which did cross the ramus intermedius which was subtotally occluded. This was deployed at 24 prakash. Excellent angiographic results were obtained with wide patency of the circumflex artery. The ramus intermedius did become jailed and the subtotally occluded vessel became completely occluded. Wire was pulled back and placed into the LAD where the same balloon was advanced and inflated in the ostium of the LAD opening the struts from the left main artery going into the LAD. The wire and apparatus was pulled back and then placed back in the circumflex artery where the same balloon was advanced and deployed at 24 prakash in the left main artery extending into the circumflex artery to further post dilate. ZARINA III flow was present before and after the procedure down the LAD and circumflex artery. The ZARINA I flow down the ramus intermedius at the beginning of the case was ZARINA 0 flow at the end of the procedure. Then the procedure the apparatus was removed the sheath was removed and hemostasis was achieved using TR banding patient was transferred to the postop putting in stable condition ANGIOGRAPHIC RESULTS The left main artery Has a stent in the proximal segment which extends into the LAD which is widely patent free of in-stent restenosis. The left anterior descending artery Widely patent with a stent originating from the left main artery extends into the mid LAD is widely patent free of in-stent restenosis with excellent distal transitioning The circumflex artery Is a large dominant vessel and has an ostial greater than 90% stenosis. It gives rise to medium size ramus intermedius which is subtotally occluded accompanied by ZARINA I flow. At the end of the procedure the ostial circumflex artery was widely patent with wide patency of the stent however the ramus intermedius was jailed and occluded. The right coronary artery Vestigial and normal The DALTON ventriculogram reveals Preserved at 60% The left ventricular end-diastolic pressure 20 mmHg IMPRESSION Critical ostial stenosis within the proximal dominant circumflex artery with successful stenting with additional lesion to 0% with 1 drug-eluting stent Angioplasty of the left anterior descending artery opening struts going into the LAD Preserved ejection fraction Elevated LVEDP Subtotally occluded ramus intermedius which was completely jailed and occluded at the end of the procedure PLAN 1. Supportive care 2. Dual antiplatelet therapy 3. Cardiac rehabilitation 4. Avoidance of tobacco products 5. Risk factor modification 6. LDL less than 55 to achieve that high intensity statin Electronically signed by : Shay Biggs MD 06/05/2024 14:34:58
--- NOTE | 2024-06-05 12:41 | P.CONCA_ITS ---
History of Present Illness History of Present Illness Consult date: 06/05/24 Requesting physician: Ramon Martínez Consult reason: chest pain Chief complaint: chest pain History of present illness: This is 73-year-old white male with past medical history of coronary artery disease, hypertension, paroxysmal atrial fibrillation on Xarelto, hyperlipidemia, carotid artery stenosis and peripheral artery disease who presen ts to emergency department with complaints of midsternal chest tightness intermittently x 2 weeks associated with shortness of breath. Symptoms worsened last night and were more constant and resolving this morning. EKG upon presentation to emergency department shows sinus rhythm with sinus arrhythmia at a rate of [address] depression. Labs as follow: WBC 7.2, hemoglobin 13.7, sodium 137, potassium 3.9, creatinine 1.1, BNP 1220 and initial troponin 1.97. Chest xray and echo are pending. [facility] Disclaimer: The information contained in this section may have been updated after the patient was seen, as this information can be updated by other users. Medical History IBS (irritable bowel syndrome) Latent tuberculosis Rheumatoid arthritis Viral gastroenteritis Laceration of face Atypical angina NSTEMI (non-ST elevated myocardial infarction) Atrial flutter Asbestos exposure Tachycardia Abnormal ECG Preoperative testing Episodic confusion Allergic rhinitis Dyspnea on exertion Latent tuberculosis by blood test Restrictive lung disease Left sided abdominal pain Left shoulder strain Left groin pain Claustrophobia Chronic cough Cognitive complaints Edema of both lower extremities Decreased pedal pulses Non-healing ulcer of foot Decreased ROM of right shoulder Right shoulder pain Right shoulder injury Pes planus of both feet Skin lesion Impotence Low back pain Left against medical advice Memory loss Chronic SI joint pain Radiculopathy Neuropathic pain Leg pain, posterior Kidney stone Ingrown toenail of right foot Pre-ulcerative calluses Splinter of toe of left foot Pain of left great toe Cellulitis of great toe of right foot Acute bacterial bronchitis Incurved toenail Diabetes mellitus Onychomycosis Pain in both feet Callus of foot Diabetic foot ulcer Acute febrile illness SIRS (systemic inflammatory response syndrome) Left against medical advice Lower extremity edema Epistaxis Encounter for pre-operative cardiovascular clearance Sepsis Urinary incontinence Weakness Cellulitis, leg Obesity (BMI 30-39.9) Acute delirium Cellulitis Severe sepsis SIRS (systemic inflammatory response syndrome) Physical deconditioning Bacterial pneumonia Hypokalemia Bronchitis due to COVID-19 virus Pneumonia due to COVID-19 virus COVID-19 virus infection Exposure to COVID-19 virus Viral syndrome Acute bronchitis Hematuria Kidney stone on right side Multiple renal cysts Cough Diastolic dysfunction Mental status change resolved HTN (hypertension) Dyspnea SOB (shortness of breath) HHD (hypertensive heart disease) Pre-op evaluation Microalbuminuria Enlarged prostate History of IBS Diabetes Acquired lymphedema Surgical History History of cardiac cath History of total right knee replacement History of rotator cuff surgery History of coronary artery stent placement History of cholecystectomy Hx of total knee arthroplasty Family History Other Cancer Cerebral palsy Dementia Diabetes Social History (Updated 06/05/24 @ 13:07 by Marlyn Cabrera, LUCIE) Smoking Status: Never smoker alcohol intake: never counseling provided: none substance use type: denies use current occupational status: employed and retired Travel in the last 8 weeks: None household members: spouse housing: house caffeine: Yes Have you lived/traveled outside [place] in past 30 days?: No Contact w/someone who lives/traveled outside US past 30 days?: No Exposure to someone with infectious disease in past 14 days?: No Do you have a fever (greater than 100.4 F or 38 C)?: No Have you tested positive for COVID-19: No Exposed to someone with COVID-19 in past 14 days?: No Do you have a sore throat?: No Do you have a cough?: No Do you have any weakness?: No Are you experiencing any nausea/vomitting?: Yes Do you have any diarrhea?: No Are you experiencing any unusual bleeding?: No Do you have any muscle aches/pain?: No Do you have any abdominal pain?: No Are you experiencing loss of taste or smell?: No Review of Systems Review of Systems Review of systems:: pertinent systems reviewed and negative unless documented below *Cardiovascular Cardiovascular: Reports chest pain and Reports dyspnea *Respiratory Respiratory: Reports dyspnea Exam Data for Last 24 hours Vital signs and Labs for Last 24 Hours: Temp Pulse Resp BP Pulse Ox O2 Del Method 98.2 F 68 20 150/88 H 99 Room Air 06/05/24 12:18 06/05/24 12:18 06/05/24 12:18 06/05/24 12:18 06/05/24 10:39 06/05/24 12:18 Laboratory Results - last 24 hr 06/05/24 10:38: WBC 7.2, RBC 5.10, Hgb 13.7 L, Hct 40.9 L, MCV 80.2, MCH 26.9 L, MCHC 33.5, RDW 13.6, Plt Count 215, MPV 10.2, Neut % (Auto) 70.5, Lymph % (Auto) 16.6, [place] % (Auto) 10.8 H, Eos % (Auto) 1.1, Baso % (Auto) 0.7, Neut # (Auto) 5.1, Lymph # (Auto) 1.2, [place] # (Auto) 0.8, Eos # (Auto) 0.1, Baso # (Auto) 0.1, PT 14.1 H, INR 1.29 H, Sodium 137, Potassium 3.9, Chloride 105, Carbon Dioxide 23, Anion Gap 12.9, BUN 19, Creatinine 1.10, Estimated Creat Clear 87, Estimated GFR 66, Est GFR ( Amer) 80, Glucose 147 H, Calcium 9.5, Total Bilirubin 1.5 H, AST 71 H, ALT 42, Alkaline Phosphatase 74, Troponin I 1.97 H, NT-Pro-B Natriuret Pep 1220 H, Total Protein 7.5, Albumin 4.7, Globulin 2.8, Albumin/Globulin Ratio 1.7 I & O for Last 24 hours: Intake & Output 06/03/24 06/03/24 06/04/24 06/05/24 00:59 23:59 23:59 23:59 Weight 219 lb Constitutional Constitutional: no acute distress *Routine Respiratory Exam Respiratory: Present CTA bilaterally and symmetric chest movement *Routine Cardiovascular Exam Cardiovascular: Present RRR, Normal S1 and Normal S2 *Routine Abdominal Exam Abdominal: Present soft and normoactive bowel sounds; Absent tenderness *Routine Extremities Exam Extremities: Present full ROM and normal capillary refill; Absent edema *Routine Skin Exam Skin: Present intact, dry and warm Detailed Neck Exam: Thyroids Thyroid: Absent bruit Meds Home Medications and Allergies Home Medications ?Medication ?Instructions ?Recorded ?Confirmed ?Type albuterol sulfate 90 mcg/actuation 1 puff inhalation Q6HP PRN SOA 03/05/24 06/05/24 History aerosol inhaler bisoprolol fumarate 5 mg tablet 5 mg PO DAILY 03/05/24 06/05/24 History clopidogrel 75 mg tablet 75 mg PO DAILY 03/05/24 06/05/24 History cyclobenzaprine 5 mg tablet 5 mg PO DAILY 03/05/24 06/05/24 History furosemide 20 mg tablet 20 mg PO DAILY 03/05/24 06/05/24 History mupirocin 2 % topical ointment 1 applic topical DAILY 03/05/24 06/05/24 History nystatin 100,000 unit/gram topical 1 applic topical DAILY 03/05/24 06/05/24 History cream rivaroxaban 15 mg tablet (Xarelto) 15 mg PO DAILY 03/05/24 06/05/24 History tamsulosin 0.4 mg capsule 0.4 mg PO DAILY 03/05/24 06/05/24 History tramadol 50 mg tablet 50 mg PO TID 03/15/24 06/05/24 History albuterol sulfate 90 mcg/actuation See Rx Instructions .Route 05/16/24 06/05/24 Rx aerosol inhaler .COMPLEX #72 grams tirzepatide 2.5 mg/0.5 mL See Rx Instructions .Route 05/22/24 06/05/24 Rx subcutaneous pen injector .COMPLEX #2 mL (Mounjaro) metformin 1,000 mg tablet 1,000 mg PO BID #60 tabs 05/29/24 06/05/24 Rx ondansetron HCl 4 mg tablet 4 mg PO DAILY PRN nausea and 05/29/24 06/05/24 Rx vomiting #90 tabs simvastatin 20 mg tablet 20 mg PO HS 06/05/24 06/05/24 History New Prescriptions to Start Prescriptions: Allergies Allergy/AdvReac Type Severity Reaction Status Date / Time Penicillins (PENICILLINS) Allergy Unknown I-ITCHING Verified 05/01/24 15:48 Assessment and Plan *Assessment and plan (1) NSTEMI (non-ST elevated myocardial infarction): Status: Acute Category: Medical Code(s): I21.4 - Non-ST elevation (NSTEMI) myocardial infarction (2) A-fib: Status: Acute Category: Medical Code(s): I48.91 - Unspecified atrial fibrillation (3) CAD (coronary artery disease): Problem Comment: Recent stents Status: Chronic Qualifiers: Associated angina: with stable angina Coronary Disease-Associated Artery/Lesion type: [place] artery [place] vs. transplanted heart: [place] heart Qualified Code(s): I25.118 - Atherosclerotic heart disease of [place] coronary artery with other forms of angina pectoris Category: Medical Code(s): I25.10 - Atherosclerotic heart disease of [place] coronary artery without angina pectoris (4) HLD (hyperlipidemia): Status: Chronic Qualifiers: Hyperlipidemia type: mixed hyperlipidemia Qualified Code(s): E78.2 - Mixed hyperlipidemia Category: Medical Code(s): E78.5 - Hyperlipidemia, unspecified (5) HTN (hypertension): Status: Acute Qualifiers: Hypertension type: essential hypertension Qualified Code(s): I10 - Essential (primary) hypertension Category: Medical Code(s): I10 - Essential (primary) hypertension Plan Hx of CAD NSTEMI Jodee Score 120 Elevated troponin in the setting of chest tightness Troponin 1.97 EKG negative for STEMI Lovenox 1 mg/kg given in emergency department LHC: RIYA to proximal dominant circumflex, angioplasty of the LAD, preserved ejection fraction, elevated LVEDP, subtotally occluded ramus intermedius which was completely jailed and occluded at the end of the procedure. Continue DAPT therapy with aspirin and Plavix, high-dose statin and beta- dhruv Echo pending History of paroxysmal atrial fibrillation Normal sinus rhythm today Continue beta-dhruv and Xarelto CV summary 06/05/2024: Status post stenting, see above. Echo pending. Cardiac meds: Aspirin 81 mg p.o. daily Plavix 75 mg p.o. daily Toprol 25 mg p.o. daily Atorvastatin 40 mg p.o. daily
--- NOTE | 2024-06-05 12:42 | EXP.HP ---
History of Present Illness *Admission Date: 06/05/24 *Reason for visit:: Chest pressure *History of present illness: Mable Alford is a 73-year-old male with a medical history significant for CAD, PAD, carotid artery stenosis, hypertension, paroxysmal A-fib on Xarelto, hyperlipidemia, type 2 diabetes, lymphedema who presents with worsening chest pressure over the past few days. He describes generalized chest pressure without radiation that became worse overnight with concomitant shortness of breath at which point patient proceeded to the ED. Denies fever/chills, cough, abdominal pain. Workup in the ED significant for troponin 1.97, EKG without acute ischemic changes though. Cardiology was consulted, and patient was taken for [facility] and received 1 stent to proximal dominant circumflex artery, angioplasty to the LAD. Ramus intermedius was also jailed at the end of the procedure. Spoke to Dr. Biggs who recommended overnight monitoring due to jailed ramus. Case also discussed with ED provider and decision was made to admit patient for NSTEMI. [facility] Disclaimer: The information contained in this section may have been updated after the patient was seen, as this information can be updated by other users. Medical History IBS (irritable bowel syndrome) Latent tuberculosis Rheumatoid arthritis Viral gastroenteritis Laceration of face Atypical angina NSTEMI (non-ST elevated myocardial infarction) Atrial flutter Asbestos exposure Tachycardia Abnormal ECG Preoperative testing Episodic confusion Allergic rhinitis Dyspnea on exertion Latent tuberculosis by blood test Restrictive lung disease Left sided abdominal pain Left shoulder strain Left groin pain Claustrophobia Chronic cough Cognitive complaints Edema of both lower extremities Decreased pedal pulses Non-healing ulcer of foot Decreased ROM of right shoulder Right shoulder pain Right shoulder injury Pes planus of both feet Skin lesion Impotence Low back pain Left against medical advice Memory loss Chronic SI joint pain Radiculopathy Neuropathic pain Leg pain, posterior Kidney stone Ingrown toenail of right foot Pre-ulcerative calluses Splinter of toe of left foot Pain of left great toe Cellulitis of great toe of right foot Acute bacterial bronchitis Incurved toenail Diabetes mellitus Onychomycosis Pain in both feet Callus of foot Diabetic foot ulcer Acute febrile illness SIRS (systemic inflammatory response syndrome) Left against medical advice Lower extremity edema Epistaxis Encounter for pre-operative cardiovascular clearance Sepsis Urinary incontinence Weakness Cellulitis, leg Obesity (BMI 30-39.9) Acute delirium Cellulitis Severe sepsis SIRS (systemic inflammatory response syndrome) Physical deconditioning Bacterial pneumonia Hypokalemia Bronchitis due to COVID-19 virus Pneumonia due to COVID-19 virus COVID-19 virus infection Exposure to COVID-19 virus Viral syndrome Acute bronchitis Hematuria Kidney stone on right side Multiple renal cysts Cough Diastolic dysfunction Mental status change resolved HTN (hypertension) Dyspnea SOB (shortness of breath) HHD (hypertensive heart disease) Pre-op evaluation Microalbuminuria Enlarged prostate History of IBS Diabetes Acquired lymphedema Surgical History History of cardiac cath History of total right knee replacement History of rotator cuff surgery History of coronary artery stent placement History of cholecystectomy Hx of total knee arthroplasty Family History Other Cancer Cerebral palsy Dementia Diabetes Social History (Updated 06/05/24 @ 13:07 by Marlyn Cabrera RN) Smoking Status: Never smoker alcohol intake: never counseling provided: none substance use type: denies use current occupational status: employed and retired Travel in the last 8 weeks: None household members: spouse housing: house caffeine: Yes Other Medical History Have you received the Flu Vaccine for this season: No Have you received the Pneumonia Vaccine: Yes Meds Home Medications and Allergies Home Medications ?Medication ?Instructions ?Recorded ?Confirmed ?Type albuterol sulfate 90 mcg/actuation 1 puff inhalation Q6HP PRN SOA 03/05/24 06/05/24 History aerosol inhaler bisoprolol fumarate 5 mg tablet 5 mg PO DAILY 03/05/24 06/05/24 History clopidogrel 75 mg tablet 75 mg PO DAILY 03/05/24 06/05/24 History cyclobenzaprine 5 mg tablet 5 mg PO DAILY 03/05/24 06/05/24 History furosemide 20 mg tablet 20 mg PO DAILY 03/05/24 06/05/24 History mupirocin 2 % topical ointment 1 applic topical DAILY 03/05/24 06/05/24 History nystatin 100,000 unit/gram topical 1 applic topical DAILY 03/05/24 06/05/24 History cream rivaroxaban 15 mg tablet (Xarelto) 15 mg PO DAILY 03/05/24 06/05/24 History tamsulosin 0.4 mg capsule 0.4 mg PO DAILY 03/05/24 06/05/24 History tramadol 50 mg tablet 50 mg PO TID 03/15/24 06/05/24 History albuterol sulfate 90 mcg/actuation See Rx Instructions .Route 05/16/24 06/05/24 Rx aerosol inhaler .COMPLEX #72 grams tirzepatide 2.5 mg/0.5 mL See Rx Instructions .Route 05/22/24 06/05/24 Rx subcutaneous pen injector .COMPLEX #2 mL (Mounjaro) metformin 1,000 mg tablet 1,000 mg PO BID #60 tabs 05/29/24 06/05/24 Rx ondansetron HCl 4 mg tablet 4 mg PO DAILY PRN nausea and 05/29/24 06/05/24 Rx vomiting #90 tabs simvastatin 20 mg tablet 20 mg PO HS 06/05/24 06/05/24 History New Prescriptions to Start Prescriptions: Allergies Allergy/AdvReac Type Severity Reaction Status Date / Time Penicillins (PENICILLINS) Allergy Unknown I-ITCHING Verified 05/01/24 15:48 Exam Data for Last 24 hours Vital signs and Labs for Last 24 Hours: Temp Pulse Resp BP Pulse Ox O2 Del Method 98.2 F 68 20 150/88 H 99 Room Air 06/05/24 12:18 06/05/24 12:18 06/05/24 12:18 06/05/24 12:18 06/05/24 10:39 06/05/24 12:18 Laboratory Results - last 24 hr 06/05/24 10:38: WBC 7.2, RBC 5.10, Hgb 13.7 L, Hct 40.9 L, MCV 80.2, MCH 26.9 L, MCHC 33.5, RDW 13.6, Plt Count 215, MPV 10.2, Neut % (Auto) 70.5, Lymph % (Auto) 16.6, [place] % (Auto) 10.8 H, Eos % (Auto) 1.1, Baso % (Auto) 0.7, Neut # (Auto) 5.1, Lymph # (Auto) 1.2, [place] # (Auto) 0.8, Eos # (Auto) 0.1, Baso # (Auto) 0.1, PT 14.1 H, INR 1.29 H, Sodium 137, Potassium 3.9, Chloride 105, Carbon Dioxide 23, Anion Gap 12.9, BUN 19, Creatinine 1.10, Estimated Creat Clear 87, Estimated GFR 66, Est GFR ( Amer) 80, Glucose 147 H, Calcium 9.5, Total Bilirubin 1.5 H, AST 71 H, ALT 42, Alkaline Phosphatase 74, Troponin I 1.97 H, NT-Pro-B Natriuret Pep 1220 H, Total Protein 7.5, Albumin 4.7, Globulin 2.8, Albumin/Globulin Ratio 1.7 I & O for Last 24 hours: Intake & Output 06/03/24 06/03/24 06/04/24 06/05/24 00:59 23:59 23:59 23:59 Weight 99.337 kg Constitutional Constitutional: no acute distress *Routine HEENT Exam Head: Present normocephalic Eye: Present EOMI and PERRL ENT: Present mucous membranes moist *Routine Neck Exam Neck: Present supple; Absent lymphadenopathy *Routine Respiratory Exam Respiratory: Present CTA bilaterally *Routine Cardiovascular Exam Cardiovascular: Present RRR *Routine Abdominal Exam Abdominal: Present soft and normoactive bowel sounds; Absent tenderness *Routine Rectal Exam Rectal:: deferred *Routine Genitalia Exam Genitalia:: deferred *Routine Extremities Exam Extremities: Present edema; Absent cyanosis or clubbing Comments: Lymphedema present. *Routine Skin Exam Skin: Present warm; Absent rash *Routine Neurological Exam Neurological: Present alert and oriented X3 Assessment and Plan *Assessment and plan (1) NSTEMI (non-ST elevated myocardial infarction): Status: Acute Category: Medical Code(s): I21.4 - Non-ST elevation (NSTEMI) myocardial infarction Plan Mable Alford is a 73-year-old male with a medical history significant for CAD, PAD, carotid artery stenosis, hypertension, paroxysmal A-fib on Xarelto, hyperlipidemia, type 2 diabetes, lymphedema who presents with worsening chest pressure over the past few days. He describes generalized chest pressure without radiation that became worse overnight with concomitant shortness of breath at which point patient proceeded to the ED. Denies fever/chills, cough, abdominal pain. Workup in the ED significant for troponin 1.97, EKG without acute ischemic changes though. Cardiology was consulted, and patient was taken for [facility] and received 1 stent to proximal dominant circumflex artery, angioplasty to the LAD. Ramus intermedius was also jailed at the end of the procedure. Spoke to Dr. Biggs who recommended overnight monitoring due to jailed ramus. Case also discussed with ED provider and decision was made to admit patient for NSTEMI. #NSTEMI #CAD, PAD, hyperlipidemia #Hypertension #Suspected HFpEF ? Cardiology consulted, s/p [facility] 06/05/2024 with 1 stent to proximal dominant circumflex artery, angioplasty to the LAD. Ramus intermedius was also jailed at the end of the procedure. ? Spoke to Dr. Biggs who recommended overnight monitoring due to jailed ramus. ? Aspirin 81 mg, Plavix 75 mg, atorvastatin 40 mg, metoprolol succinate 25 mg. ? Elevated LVEDP noted during PCI. Official ECHO report pending. Consider starting Lasix tomorrow pending ECHO. ? Continuous cardiac telemetry. ? Follow-up CBC, CMP, lipid panel, A1c, TSH in the morning. #Paroxysmal A-fib ? Currently rate controlled. Continue Toprol, Xarelto. #Type 2 diabetes ? Hemoglobin A1c 7.1%. ? LDSSI, ACHS glucose checks. #Lymphedema ? Continue leg compressions. #Torn ligament in left shoulder ? Patient reports torn ligament in left shoulder, being evaluated by orthopedic surgery in [place]. ? Continue home tramadol as needed. #BPH ? Continue home tamsulosin. Full code DVT prophylaxis: Home Xarelto
[2024-06-05] MEDS: ENOXAPARIN 100MG/ML SYRINGE 100 MG SUBCUT (13:09)
[2024-06-05 13:46] LABS: Troponin I 2.54 ng/ml (0.00-0.034)
[2024-06-05] MEDS: VERAPAMIL 2.5MG/ML 2ML VIAL 2.5 MG IV (14:06)
[2024-06-05] MEDS: LIDOCAINE 1% 10ML MDV 20 ML IJ (14:06)
[2024-06-05] MEDS: diphenhydrAMINE 50MG/ML VIAL 50 MG IV (14:07)
[2024-06-05] MEDS: 0.9 % SODIUM CHLORIDE 500 ML 25 ML IV (14:07)
[2024-06-05] MEDS: HEPARIN 1,000 UNITS/ML 10ML VIAL (CATH LAB) 10000 UNIT IV ×2 (14:07→14:25)
[2024-06-05] MEDS: NITROGLYCERIN 800MCG/8ML SYR (CATH LAB) 800 MCG IA (14:08)
[2024-06-05] MEDS: HEPARIN 1,000 UNITS/500ML NS (CATH LAB) 3000 UNIT IV (14:08)
[2024-06-05] MEDS: MIDAZOLAM HCL 1MG/ML 5ML VIAL 1 MG IV (14:32)
[2024-06-05] MEDS: FENTANYL 100MCG/2ML VIAL 50 MCG IV (14:33)
[2024-06-05] MEDS: IOPAMIDOL-370 (76%);100ML BOTTLE 150 ML IV (14:48)
[2024-06-05 14:52] LABS: CATHL Activated Clotting Time 338 SEC (74-125)
[2024-06-05] MEDS: CLOPIDOGREL 75MG TAB 75 MG PO (16:00)
[2024-06-05] MEDS: METOPROLOL SUCCINATE XL 25MG TABLET 25 MG PO (16:00)
[2024-06-05] MEDS: DEFINITY US ECHO CONTRAST 2ML INJ 2 MG IV (16:24)
[2024-06-05 18:13] LABS: Troponin I 3.91 ng/ml (0.00-0.034)
[2024-06-05] MEDS: ATORVASTATIN 40MG TABLET 40 MG PO (21:09)
[2024-06-05] MEDS: TRAMADOL 50MG TABLET 50 MG PO (21:10)
[2024-06-05 23:43] LABS: POC Glucose,Bedside 146 (70-110)
[2024-06-06] VITALS: BP 142/77; PULSE 70; PULSE 75; RESP 16; TEMP 36.7; O2SAT 94
[2024-06-06 04:00] VITALS: BP 134/72; PULSE 70; PULSE 74; RESP 16; TEMP 36.4; O2SAT 95; BMI 32.4
[2024-06-06 05:30] LABS: POC Glucose,Bedside 151 (70-110)
[2024-06-06 06:45] LABS: Basophils % 0.5 % (0.1-2.0); Eosinophils # 0.1 K/mm3 (0.0-0.4); Eosinophils % 1.8 % (0.1-12.0); Hematocrit 38.6 % (42.0-52.0); Hemoglobin 12.7 g/dL (14.1-18.0); Lymphocytes # 0.8 K/mm3 (0.7-4.5); Lymphocytes % 14.5 % (10-50); Mean Corpuscular HGB Conc 32.9 g/dL (31.8-35.4); Mean Corpuscular Hemoglobin 26.8 pg (27.0-31.2); Mean Corpuscular Volume 81.6 fl (80-94); Mean Platelet Volume 10.3 fl (7.4-10.4); Monocytes # 0.5 K/mm3 (0.1-1.0); Monocytes % 9.3 % (1.7-9.3); Neutrophils # 4.1 K/mm3 (1.8-7.8); Neutrophils % 73.7 % (37.0-80.0); Platelet Count 187 K/mm3 (142-424); Red Blood Count 4.73 M/mm3 (4.60-6.20); Red Cell Distribution Width 13.6 % (11.5-17.5); White Blood Count 5.6 K/mm3 (4.8-10.8)
[2024-06-06 07:23] LABS: Alanine Aminotransferase 38 U/L (12-78); Albumin/Globulin Ratio 1.5 (1.1-1.8); Alkaline Phosphatase 75 U/L (38-126); Anion Gap 10.5 mEq/L (5-15); Aspartate Amino Transferase 65 U/L (17-59); Bilirubin,Total 1.4 mg/dl (0.2-1.3); Blood Urea Nitrogen 14 mg/dl (9-20); Calcium 8.6 mg/dl (8.4-10.2); Carbon Dioxide 25 mmol/L (22.0-30.0); Chloride 105 mmol/L (98-107); Chol/HDL Ratio 2.3 (1-3.5); Cholesterol 109 mg/dl (140-200); Creatinine Clearance Estimated 95 mL/min (50-200); Estimated Glomerular Filt Rate 74 ml/min (>60); GFR (African American) 89 ML/MIN (>60); Globulin 2.6 g/dL (1.3-3.2); Glucose 186 mg/dl (74-100); HDL Cholesterol 47 mg/dl (40-60); Magnesium 1.6 mg/dl (1.6-2.3); Potassium 3.5 mmoL/L (3.5-5.1); Sodium 137 mmol/L (136-145); Total Protein,Serum 6.6 g/dl (6.3-8.2); Triglycerides 190 mg/dl (30-150); VLDL Cholesterol 38 mg/dL (0-40)
[2024-06-06 07:40] VITALS: BP 120/62; PULSE 73; RESP 18; TEMP 36.8; O2SAT 97
[2024-06-06 07:43] LABS: Free T4 (Free Thyroxine) 1.34 ng/dl (0.78-2.19)
[2024-06-06 07:51] LABS: Direct LDL Cholesterol < 30.00 mg/dL (100-129)
[2024-06-06 07:54] LABS: Thyroid Stimulating Hormone 1.02 uIU/mL (0.465-4.68)
[2024-06-06 08:00] VITALS: PULSE 90
[2024-06-06 08:13] LABS: Vitamin B12 775 pg/mL (239-931)
[2024-06-06] MEDS: TRAMADOL 50MG TABLET 50 MG PO (08:38)
[2024-06-06] MEDS: METOPROLOL SUCCINATE XL 25MG TABLET 25 MG PO (08:38)
[2024-06-06] MEDS: ASPIRIN EC 81MG TABLET 81 MG PO (08:38)
[2024-06-06] MEDS: CLOPIDOGREL 75MG TAB 75 MG PO (08:38)
[2024-06-06] MEDS: RIVAROXABAN 15MG TABLET 15 MG PO (08:38)
[2024-06-06] MEDS: FUROSEMIDE 40 MG TABLET PO (08:38)
[2024-06-06 09:45] LABS: Iron 56 ug/dL (49-181); Total Iron Binding Capacity 355 ug/dL (261-462)
[2024-06-06 09:53] LABS: Hemoglobin A1C 7.3 % (4.0-6.0)
--- NOTE | 2024-06-06 10:00 | P.PN_ITS ---
Subjective Subjective Date: 06/06/24 Time: 08:00 Principal diagnosis: NSTEMI Interval history: Patient is status post left heart catheterization with stenting. Reports chest pressure and shortness of breath have resolved and he is feeling well. Morning labs reviewed and stable. Echo shows a ejection fraction of 50%. Exam Data for Last 24 hours Vital signs and Labs for Last 24 Hours: Temp Pulse Resp BP Pulse Ox O2 Del Method 98.2 F 73 18 120/62 97 Room Air 06/06/24 07:40 06/06/24 07:40 06/06/24 07:40 06/06/24 07:40 06/06/24 07:40 06/06/24 09:31 Laboratory Results - last 24 hr 06/05/24 10:38: WBC 7.2, RBC 5.10, Hgb 13.7 L, Hct 40.9 L, MCV 80.2, MCH 26.9 L, MCHC 33.5, RDW 13.6, Plt Count 215, MPV 10.2, Neut % (Auto) 70.5, Lymph % (Auto) 16.6, [place] % (Auto) 10.8 H, Eos % (Auto) 1.1, Baso % (Auto) 0.7, Neut # (Auto) 5.1, Lymph # (Auto) 1.2, [place] # (Auto) 0.8, Eos # (Auto) 0.1, Baso # (Auto) 0.1, PT 14.1 H, INR 1.29 H, Sodium 137, Potassium 3.9, Chloride 105, Carbon Dioxide 23, Anion Gap 12.9, BUN 19, Creatinine 1.10, Estimated Creat Clear 87, Estimated GFR 66, Est GFR ( Amer) 80, Glucose 147 H, Calcium 9.5, Total Bilirubin 1.5 H, AST 71 H, ALT 42, Alkaline Phosphatase 74, Troponin I 1.97 H, NT-Pro-B Natriuret Pep 1220 H, Total Protein 7.5, Albumin 4.7, Globulin 2.8, Albumin/Globulin Ratio 1.7 06/05/24 12:08: Troponin I 2.54 H 06/05/24 14:29: Activated Clotting Time 338 H* 06/05/24 16:56: Troponin I 3.91 H 06/05/24 17:56: Folate 10.20 06/05/24 21:07: POC Glucose 146 H 06/06/24 05:18: POC Glucose 151 H 06/06/24 06:30: WBC 5.6, RBC 4.73, Hgb 12.7 L, Hct 38.6 L, MCV 81.6, MCH 26.8 L, MCHC 32.9, RDW 13.6, Plt Count 187, MPV 10.3, Neut % (Auto) 73.7, Lymph % (Auto) 14.5, [place] % (Auto) 9.3, Eos % (Auto) 1.8, Baso % (Auto) 0.5, Neut # (Auto) 4.1, Lymph # (Auto) 0.8, [place] # (Auto) 0.5, Eos # (Auto) 0.1, Baso # (Auto) 0.0, Sodium 137, Potassium 3.5, Chloride 105, Carbon Dioxide 25, Anion Gap 10.5, BUN 14 D, Creatinine 1.00, Estimated Creat Clear 95, Estimated GFR 74, Est GFR ( Amer) 89, Glucose 186 H D, Hemoglobin A1c 7.3 H, Calcium 8.6, Magnesium 1.6, Iron 56, TIBC 355, Iron Saturation [id number], Ferritin 50.0, Total Bilirubin 1.4 H, AST 65 H, ALT 38, Alkaline Phosphatase 75, Total Protein 6.6, Albumin 4.0 D, Globulin 2.6, Albumin/Globulin Ratio 1.5, Triglycerides 190 H, Cholesterol 109 L, LDL Cholesterol Direct < 30.00 L, VLDL Cholesterol 38, HDL Cholesterol 47, Cholesterol/HDL Ratio 2.3, Vitamin B12 775, TSH 1.02, Free T4 1.34 I & O for Last 24 hours: Intake & Output 06/03/24 06/04/24 06/05/24 06/06/24 23:59 23:59 23:59 23:59 Intake Total 1172 / 1172 390 / 390 Output Total 0 / 0 0 / 0 Balance 1172 / 1172 390 / 390 Weight 219 lb 219 lb 0.009 oz Constitutional Constitutional: no acute distress *Routine Respiratory Exam Respiratory: Present CTA bilaterally and symmetric chest movement *Routine Cardiovascular Exam Cardiovascular: Present RRR, Normal S1 and Normal S2 *Routine Abdominal Exam Abdominal: Present soft and normoactive bowel sounds; Absent tenderness *Routine Extremities Exam Extremities: Present full ROM and normal capillary refill; Absent edema Comments: Right radial site-dressing is dry and intact. No obvious swelling bruising redness or warmth noted to arm *Routine Skin Exam Skin: Present intact, dry and warm Detailed Neck Exam: Thyroids Thyroid: Absent bruit Progress Note: A&P Assessment and plan (1) NSTEMI (non-ST elevated myocardial infarction): Status: Acute Assessment and Plan Assessment and Plan for All Diagnoses:: Hx of CAD NSTEMI Jodee Score 120 Elevated troponin in the setting of chest tightness Troponin 1.97 EKG negative for STEMI Lovenox 1 mg/kg given in emergency department LHC: RIYA to proximal dominant circumflex, angioplasty of the LAD, preserved ejection fraction, elevated LVEDP, subtotally occluded ramus intermedius which was completely jailed and occluded at the end of the procedure. Continue DAPT therapy with aspirin and Plavix, high-dose statin and beta- dhruv Echo- EF 50 History of paroxysmal atrial fibrillation Normal sinus rhythm today Continue beta-dhruv and Xarelto CV summary 06/06/2024: Patient is CV stable for discharge home. Status post stenting, see above. Echo shows and EF of 50. Please have patient continue below listed medication and follow-up in cardiology clinic next week for reevaluation. Cardiac meds: Aspirin 81 mg p.o. daily Plavix 75 mg p.o. daily Toprol 25 mg p.o. daily Atorvastatin 40 mg p.o. daily Xarelto 20 mg p.o. daily
[2024-06-06 10:39] LABS: POC Glucose,Bedside 140 (70-110)
--- NOTE | 2024-06-06 11:18 | P.DS_ITS ---
General Admission date:: 06/05/24 HPI HPI HPI: Mable Alford is a 73-year-old male with a medical history significant for CAD, PAD, carotid artery stenosis, hypertension, paroxysmal A-fib on Xarelto, hyperlipidemia, type 2 diabetes, lymphedema who presents with worsening chest pressure over the past few days. He describes generalized chest pressure without radiation that became worse overnight with concomitant shortness of breath at which point patient proceeded to the ED. Denies fever/chills, cough, abdominal pain. Workup in the ED significant for troponin 1.97, EKG without acute ischemic changes though. Cardiology was consulted, and patient was taken for [facility] and received 1 stent to proximal dominant circumflex artery, angioplasty to the LAD. Ramus intermedius was also jailed at the end of the procedure. Spoke to Dr. Biggs who recommended overnight monitoring due to jailed ramus. Case also discussed with ED provider and decision was made to admit patient for NSTEMI. Hospital Course Hospital Course Hospital Course: Mable Alford is a 73-year-old male with a medical history significant for CAD, PAD, carotid artery stenosis, hypertension, paroxysmal A-fib on Xarelto, hyperlipidemia, type 2 diabetes, lymphedema who presents with worsening chest pressure over the past few days. He describes generalized chest pressure without radiation that became worse overnight with concomitant shortness of breath at which point patient proceeded to the ED. Denies fever/chills, cough, abdominal pain. Workup in the ED significant for troponin 1.97, EKG without acute ischemic changes though. Cardiology was consulted, and patient was taken for [facility] and received 1 stent to proximal dominant circumflex artery, angioplasty to the LAD. Ramus intermedius was also jailed at the end of the procedure. Spoke to Dr. Biggs who recommended overnight monitoring due to jailed ramus. Case also discussed with ED provider and decision was made to admit patient for NSTEMI. #NSTEMI #CAD, PAD, hyperlipidemia #Hypertension # Left ventricular dysfunction ? Cardiology consulted, s/p [facility] 06/05/2024 with 1 stent to proximal dominant circumflex artery, angioplasty to the LAD. Ramus intermedius was also jailed at the end of the procedure, monitored overnight without issues. ? Aspirin 81 mg, Plavix 75 mg, atorvastatin 40 mg, metoprolol succinate 25 mg. ? ECHO shows LVEF 50%. ? Hemoglobin A1c 7.3%, LDL less than 30, TSH normal. #Paroxysmal A-fib ? Currently rate controlled. Continue Toprol, Xarelto. #Type 2 diabetes ? Hemoglobin A1c 7.1%. Continue home regimen. #Lymphedema ? Continue leg compressions. #Torn ligament in left shoulder ? Patient reports torn ligament in left shoulder, being evaluated by orthopedic surgery in [place]. ? Continue home tramadol as needed. #BPH ? Continue home tamsulosin. Exam Data for Last 24 hours Vital signs and Labs for Last 24 Hours: Temp Pulse Resp BP Pulse Ox O2 Del Method 98.2 F 90 18 120/62 97 Room Air 06/06/24 07:40 06/06/24 08:00 06/06/24 07:40 06/06/24 07:40 06/06/24 07:40 06/06/24 09:31 Laboratory Results - last 24 hr 06/05/24 10:38: PT 14.1 H, INR 1.29 H, Troponin I 1.97 H, NT-Pro-B Natriuret Pep 1220 H, Total Protein 7.5, Globulin 2.8, Albumin/Globulin Ratio 1.7 06/05/24 12:08: Troponin I 2.54 H 06/05/24 14:29: Activated Clotting Time 338 H* 06/05/24 16:56: Troponin I 3.91 H 06/05/24 17:56: Folate 10.20 06/05/24 21:07: POC Glucose 146 H 06/06/24 05:18: POC Glucose 151 H 06/06/24 06:30: WBC 5.6, RBC 4.73, Hgb 12.7 L, Hct 38.6 L, MCV 81.6, MCH 26.8 L, MCHC 32.9, RDW 13.6, Plt Count 187, MPV 10.3, Neut % (Auto) 73.7, Lymph % (Auto) 14.5, [place] % (Auto) 9.3, Eos % (Auto) 1.8, Baso % (Auto) 0.5, Neut # (Auto) 4.1, Lymph # (Auto) 0.8, [place] # (Auto) 0.5, Eos # (Auto) 0.1, Baso # (Auto) 0.0, Sodium 137, Potassium 3.5, Chloride 105, Carbon Dioxide 25, Anion Gap 10.5, BUN 14 D, Creatinine 1.00, Estimated Creat Clear 95, Estimated GFR 74, Est GFR ( Amer) 89, Glucose 186 H D, Hemoglobin A1c 7.3 H, Calcium 8.6, Magnesium 1.6, Iron 56, TIBC 355, Iron Saturation 15.47393, Ferritin 50.0, Total Bilirubin 1.4 H, AST 65 H, ALT 38, Alkaline Phosphatase 75, Total Protein 6.6, Albumin 4.0 D, Globulin 2.6, Albumin/Globulin Ratio 1.5, Triglycerides 190 H, Cholesterol 109 L, LDL Cholesterol Direct < 30.00 L, VLDL Cholesterol 38, HDL Cholesterol 47, Cholesterol/HDL Ratio 2.3, Vitamin B12 775, TSH 1.02, Free T4 1.34 06/06/24 10:32: POC Glucose 140 H I & O for Last 24 hours: Intake & Output 06/03/24 06/04/24 06/05/24 06/06/24 23:59 23:59 23:59 23:59 Intake Total 1172 / 1172 390 / 390 Output Total 0 / 0 0 / 0 Balance 1172 / 1172 390 / 390 Weight 99.337 kg 99.337 kg Constitutional Constitutional: no acute distress *Routine HEENT Exam Head: Present normocephalic Eye: Present EOMI and PERRL ENT: Present mucous membranes moist *Routine Neck Exam Neck: Present supple; Absent lymphadenopathy *Routine Respiratory Exam Respiratory: Present CTA bilaterally *Routine Cardiovascular Exam Cardiovascular: Present RRR *Routine Abdominal Exam Abdominal: Present soft and normoactive bowel sounds; Absent tenderness *Routine Extremities Exam Extremities: Present edema; Absent cyanosis or clubbing Comments: Bilateral lower extremity lymphedema. *Routine Skin Exam Skin: Present warm; Absent rash *Routine Neurological Exam Neurological: Present alert and oriented X3 Results Data Completed and Pending Labs on day of discharge: Labs from last 24 hours 06/06/24 06/06/24 06/06/24 10:32 06:30 05:18 WBC 5.6 RBC 4.73 Hgb 12.7 L Hct 38.6 L MCV 81.6 MCH 26.8 L MCHC 32.9 RDW 13.6 Plt Count 187 MPV 10.3 Neut % (Auto) 73.7 Lymph % (Auto) 14.5 [place] % (Auto) 9.3 Eos % (Auto) 1.8 Baso % (Auto) 0.5 Neut # (Auto) 4.1 Lymph # (Auto) 0.8 [place] # (Auto) 0.5 Eos # (Auto) 0.1 Baso # (Auto) 0.0 PT INR Activated Clotting Time Sodium 137 Potassium 3.5 Chloride 105 Carbon Dioxide 25 Anion Gap 10.5 BUN 14 D Creatinine 1.00 Estimated Creat Clear 95 Estimated GFR 74 Est GFR ( Amer) 89 Glucose 186 H D POC Glucose 140 H 151 H Hemoglobin A1c 7.3 H Calcium 8.6 Magnesium 1.6 Iron 56 TIBC 355 Iron Saturation 15.23212 Ferritin 50.0 Total Bilirubin 1.4 H AST 65 H ALT 38 Alkaline Phosphatase 75 Troponin I NT-Pro-B Natriuret Pep Total Protein 6.6 Albumin 4.0 D Globulin 2.6 Albumin/Globulin Ratio 1.5 Triglycerides 190 H Cholesterol 109 L LDL Cholesterol Direct < 30.00 L VLDL Cholesterol 38 HDL Cholesterol 47 Cholesterol/HDL Ratio 2.3 Vitamin B12 775 Folate TSH 1.02 Free T4 1.34 06/05/24 06/05/24 06/05/24 21:07 17:56 16:56 WBC RBC Hgb Hct MCV MCH MCHC RDW Plt Count MPV Neut % (Auto) Lymph % (Auto) [place] % (Auto) Eos % (Auto) Baso % (Auto) Neut # (Auto) Lymph # (Auto) [place] # (Auto) Eos # (Auto) Baso # (Auto) PT INR Activated Clotting Time Sodium Potassium Chloride Carbon Dioxide Anion Gap BUN Creatinine Estimated Creat Clear Estimated GFR Est GFR ( Amer) Glucose POC Glucose 146 H Hemoglobin A1c Calcium Magnesium Iron TIBC Iron Saturation Ferritin Total Bilirubin AST ALT Alkaline Phosphatase Troponin I 3.91 H NT-Pro-B Natriuret Pep Total Protein Albumin Globulin Albumin/Globulin Ratio Triglycerides Cholesterol LDL Cholesterol Direct VLDL Cholesterol HDL Cholesterol Cholesterol/HDL Ratio Vitamin B12 Folate 10.20 TSH Free T4 06/05/24 06/05/24 06/05/24 14:29 12:08 10:38 WBC RBC Hgb Hct MCV MCH MCHC RDW Plt Count MPV Neut % (Auto) Lymph % (Auto) [place] % (Auto) Eos % (Auto) Baso % (Auto) Neut # (Auto) Lymph # (Auto) [place] # (Auto) Eos # (Auto) Baso # (Auto) PT 14.1 H INR 1.29 H Activated Clotting Time 338 H* Sodium Potassium Chloride Carbon Dioxide Anion Gap BUN Creatinine Estimated Creat Clear Estimated GFR Est GFR ( Amer) Glucose POC Glucose Hemoglobin A1c Calcium Magnesium Iron TIBC Iron Saturation Ferritin Total Bilirubin AST ALT Alkaline Phosphatase Troponin I 2.54 H 1.97 H NT-Pro-B Natriuret Pep 1220 H Total Protein 7.5 Albumin Globulin 2.8 Albumin/Globulin Ratio 1.7 Triglycerides Cholesterol LDL Cholesterol Direct VLDL Cholesterol HDL Cholesterol Cholesterol/HDL Ratio Vitamin B12 Folate TSH Free T4 DS: Diagnosis Discharge Diagnosis (1) NSTEMI (non-ST elevated myocardial infarction): Status: Acute Code(s): I21.4 - Non-ST elevation (NSTEMI) myocardial infarction Meds Home Medications and Allergies Home Medications ?Medication ?Instructions ?Recorded ?Confirmed ?Type albuterol sulfate 90 mcg/actuation 2 puff inhalation Q6HP PRN short 03/05/24 06/06/24 History aerosol inhaler of breath furosemide 20 mg tablet 20 mg PO DAILY 03/05/24 05/01/24 History rivaroxaban 15 mg tablet (Xarelto) 15 mg PO DAILY 03/05/24 06/06/24 History tamsulosin 0.4 mg capsule 0.4 mg PO DAILY 03/05/24 06/06/24 History tramadol 50 mg tablet 50 mg PO TID 03/15/24 06/06/24 History tirzepatide 2.5 mg/0.5 mL See Rx Instructions .Route 05/22/24 06/05/24 Rx subcutaneous pen injector .COMPLEX #2 mL (Mckayla) metformin 1,000 mg tablet 1,000 mg PO BID #60 tabs 05/29/24 06/06/24 Rx aspirin 81 mg tablet,delayed 81 mg PO DAILY 30 days #30 tabs 06/06/24 Rx release atorvastatin 40 mg tablet 40 mg PO HS 30 days #30 tabs 06/06/24 Rx clopidogrel 75 mg tablet 75 mg PO DAILY 30 days #30 tabs 06/06/24 Rx metoprolol succinate 25 mg 25 mg PO DAILY 30 days #30 tabs 06/06/24 Rx tablet,extended release 24 hr New Prescriptions to Start Prescriptions: aspirin Oswaldo,Jer atorvastatin Oswaldo,Jer clopidogrel Oswaldo,Jer metoprolol succinate Jer Chacon Allergies Allergy/AdvReac Type Severity Reaction Status Date / Time Penicillins (PENICILLINS) Allergy Unknown I-ITCHING Verified 05/01/24 15:48 Discharge Plan Disposition Patient Disposition: Home, Self-Care Condition: Fair Discharge Order Discharge Orders: Discharge Order (Routine); Ordered 06/06/24 Ordered By: Jer Chacon Follow up Plan Follow up with: Kiesha Laurent APRN [Nurse Practitioner] - 06/17/24 2:30 pm Prescriptions/Medication Reconciliation: New atorvastatin 40 mg Tablet 40 mg PO HS 30 Days Qty: 30 0RF aspirin 81 mg Tablet,Delayed Release (Dr/Ec) 81 mg PO DAILY 30 Days Qty: 30 0RF metoprolol succinate 25 mg Tablet Extended Release 24 Hr 25 mg PO DAILY 30 Days Qty: 30 0RF Continued tramadol 50 mg tablet 50 mg PO TID Mounjaro 2.5 mg/0.5 mL pen injector See Rx Instructions .ROUTE .COMPLEX Qty: 2 6RF Dose Instruction: INJECT THE CONTENTS OF ONE PEN SUBCUTANEOUSLY WEEKLY DIRECTED FOR 4 WEEKS Rx Instructions: INJECT THE CONTENTS OF ONE PEN SUBCUTANEOUSLY WEEKLY DIRECTED FOR 4 WEEKS metformin 1,000 mg tablet 1,000 mg PO BID Qty: 60 2RF tamsulosin 0.4 mg capsule 0.4 mg PO DAILY furosemide 20 mg tablet 20 mg PO DAILY albuterol sulfate 90 mcg/actuation HFA aerosol inhaler 2 puff INHALATION Q6HP PRN (Reason: short of breath) Xarelto 15 mg tablet 15 mg PO DAILY clopidogrel 75 mg tablet 75 mg PO DAILY 30 Days Qty: 30 0RF Discontinued bisoprolol fumarate 5 mg tablet 5 mg PO DAILY simvastatin 20 mg tablet 20 mg PO HS Rx Instructions: TAKE 1 TABLET BY MOUTH DAILY FOR HIGH CHOLESTEROL Problem Reconciliation Problems Reviewed?: Yes Patient Discharge Instructions Patient Instructions: DI for Heart Attack, DI for Cardiac Catheterization, DI for Surgical Site Infection Print Language: Cuban Providers Primary Care Provider: Columba Rodríguez Admit Provider: Jer Chacon Attending Provider: Jer Chacon
[2024-06-06] MEDS: POTASSIUM CHLORIDE 20MEQ TAB 40 MEQ PO (11:29)
--- NOTE | 2024-06-07 10:05 | SW/DCPLANNER ---
Spoke with patient on the phone. Patient stated that he is doing very well just a little winded when he gets up moving around. Patient stated that he is aware of his upcoming appointments. Patient stated that [facility] able to bring his medicine to his room before he was discharged. Patient stated that he has no questions or concerns at this time. Doug Camara
== END 2024-06-06 12:50 | disposition home or self-care (01) | DRG 322 ==
LOC: ER 10:58 → 2ND 12:27
PROVIDERS: Internal Medicine; Admitting Provider Student in an Organized Health Care Education/Training Program; Emergency Provider Student in an Organized Health Care Education/Training Program; PCP Family Medicine; Visit Provider Student in an Organized Health Care Education/Training Program
PROC: 027034Z Dilation of Coronary Artery, One Artery with Drug-eluting Intraluminal Device, Percutaneous Approach (ICD-10-PCS; principal; 2024-06-05 13:45)
DX: I21.4 Non-ST elevation (NSTEMI) myocardial infarction (principal); I48.0 Paroxysmal atrial fibrillation; I25.10 Atherosclerotic heart disease of native coronary artery without angina pectoris; E78.2 Mixed hyperlipidemia; I10 Essential (primary) hypertension; I65.23 Occlusion and stenosis of bilateral carotid arteries; I89.0 Lymphedema, not elsewhere classified; Z86.16 Personal history of COVID-19; Z88.0 Allergy status to penicillin; Z79.899 Other long term (current) drug therapy; Z79.01 Long term (current) use of anticoagulants; Z79.84 Long term (current) use of oral hypoglycemic drugs; Z95.5 Presence of coronary angioplasty implant and graft; Z79.51 Long term (current) use of inhaled steroids; I73.9 Peripheral vascular disease, unspecified; S43.402A Unspecified sprain of left shoulder joint, initial encounter; E11.9 Type 2 diabetes mellitus without complications; E66.9 Obesity, unspecified; Z68.32 Body mass index [BMI] 32.0-32.9, adult
CPT/HCPCS: 36415; 71045; 80053; 80061; 82607; 82728; 82746; 82962; 83036; 83540; 83550; 83735; 83880; 84439; 84443; 84484; 85025; 85347; 85610; 92928; 92941; 93005; 93306; 93458; 99152; 99291; C1725; C1769; C1874; C9600; C9606; J1200; J1644; J1650; J2250; J3010; Q9957; Q9967

== ENCOUNTER 2024-06-17 10:46 | Outpatient (CLI) | payer MEDICARE, SELFPAY ==
--- NOTE | 2024-06-17 11:12 | XR_ITS ---
FINAL REPORT CLINICAL HISTORY: Foot Pain..no trauma COMPARISON: None FINDINGS: AP, oblique and lateral views of the right foot were obtained. Osteopenia is present. There is no acute fracture or dislocation. Multijoint degenerative change is present. Diffuse nonspecific soft tissue swelling is noted. IMPRESSION: Degenerative changes, with no acute osseous abnormality of the right foot. Reviewed, Interpreted and Dictated by Esther Mcclain MD Transcribed by Audrey Hinson Authenticated and [facility]
[2024-06-17 11:15] LABS: Basophils % 0.3 % (0.1-2.0); Eosinophils # 0.1 K/mm3 (0.0-0.4); Hematocrit 43.2 % (42.0-52.0); Hemoglobin 14.1 g/dL (14.1-18.0); Lymphocytes # 0.9 K/mm3 (0.7-4.5); Lymphocytes % 14.8 % (10-50); Mean Corpuscular HGB Conc 32.6 g/dL (31.8-35.4); Mean Corpuscular Hemoglobin 26.9 pg (27.0-31.2); Mean Corpuscular Volume 82.3 fl (80-94); Mean Platelet Volume 10.3 fl (7.4-10.4); Monocytes # 0.5 K/mm3 (0.1-1.0); Monocytes % 8.7 % (1.7-9.3); Neutrophils # 4.6 K/mm3 (1.8-7.8); Neutrophils % 74.9 % (37.0-80.0); Platelet Count 234 K/mm3 (142-424); Red Blood Count 5.25 M/mm3 (4.60-6.20); Red Cell Distribution Width 13.6 % (11.5-17.5); White Blood Count 6.1 K/mm3 (4.8-10.8)
[2024-06-17 11:48] LABS: Alanine Aminotransferase 32 U/L (12-78); Albumin Level 4.5 g/dl (3.5-5.0); Alkaline Phosphatase 74 U/L (38-126); Anion Gap 15.3 mEq/L (5-15); Aspartate Amino Transferase 39 U/L (17-59); Bilirubin,Total 1.5 mg/dl (0.2-1.3); Blood Urea Nitrogen 21 mg/dl (9-20); Calcium 10.4 mg/dl (8.4-10.2); Carbon Dioxide 22 mmol/L (22.0-30.0); Chloride 106 mmol/L (98-107); Estimated Glomerular Filt Rate 60 ml/min (>60); GFR (African American) 72 ML/MIN (>60); Globulin 2.3 g/dL (1.3-3.2); Glucose 132 mg/dl (74-100); Potassium 4.3 mmoL/L (3.5-5.1); Sodium 139 mmol/L (136-145); Total Protein,Serum 6.8 g/dl (6.3-8.2)
[2024-06-17 11:54] LABS: C-Reactive Protein 0.8 mg/L (0-4)
[2024-06-17 12:13] LABS: Erythrocyte Sedimentation Rate 22 mm/hr (0-20)
[2024-06-17 14:02] LABS: Hemoglobin A1C 7.2 % (4.0-6.0)
== END 2024-06-17 23:59 | disposition home or self-care (01) ==
LOC: LAB 10:47
PROVIDERS: PCP Family Medicine; Visit Provider Nurse Practitioner
DX: R60.9 Edema, unspecified (principal); M79.671 Pain in right foot; E11.9 Type 2 diabetes mellitus without complications; Z79.84 Long term (current) use of oral hypoglycemic drugs
CPT/HCPCS: 36415; 73630; 80053; 83036; 85025; 85651; 86140

== ENCOUNTER 2024-07-02 12:38 | Outpatient (RCR) | payer MEDICARE, SELFPAY | END 2024-09-09 14:00 | disposition home or self-care (01) | LOC: CR 12:38 | PROVIDERS: Visit Provider Internal Medicine | DX: Z48.812 Encounter for surgical aftercare following surgery on the circulatory system (principal); Z98.61 Coronary angioplasty status | CPT/HCPCS: 93798 ==

== ENCOUNTER 2024-07-08 10:35 | Outpatient (CLI) | payer MEDICARE, SELFPAY ==
--- OUTSIDE RECORDS SUMMARY | 2024-07-08 10:37 | XMS_ITS ---
Author Organization [facility] Address [address] [place] [address] Phone Care Team Providers Care [employer] Teacher Name Role Phone Jonah Anthony APRN Primary Care Provider [phone] Minnie VILLALOBOS, Danish Maurer [phone] Reason for Referral Date Encounter Description Provider Reason for Referral 03/29/21 Post Op Baldemar Mota PA-C Referral To Physician - see pcp for bp 03/02/21 Follow Up Danish Hartman MD Referral To Physician - see pcp for bp 02/02/21 Post Op Danish Hartman MD Referral To Physician - see pcp for bp 01/12/21 Post Op Danish Hartman MD Referral To Physician - see pcp for bp 10/06/20 Physician Specified Danish Hartman MD Refer ral To Physician - see pcp for bp Problems Includes: Active, inactive, and resolved Problems All Visits Onset Date Resolved Date Provider Condition S tatus Joint Pain in the Right Knee 10/06/2020 Danish Hartman MD Active Last Documented On 1 3:35PM ; [facility] AM[facility] Joint Pain, Localized in the Left Shoulder 10/08/2018 Ravi Kruse MD Active Last Documented On 9 8:56AM ; ARL[facility] AMBROSIO Plan of Treatment Instructions to patient Lose weight Last Documented On 2 1:04PM ; [facility] Lose weight Last Documented On 2 1:01PM ; [facility] Lose weight Last Documented On 2 10:06AM ; [facility]RL[facility] AMBROSIO Instructions for patient see pcp for bp Last Documented On 0 9:43AM ; [facility] Instructions for patient see pcp for bp Last Documented On 9 9:35AM ; [facility] Instructions for patient see pcp for bp Last Documented On 9 9:19AM ; [facility] Assessments Includes: Assessments for all patient encounters No Assessments Recorded Instructions Includes: Instructions for all patient encounters Instructions to patient Lose weight Last Documented On 2 1:04PM ; [facility] Lose weight Last Documented On 2 1:01PM ; [facility] Lose weight Last Documented On 2 10:06AM ; [facility] Instructions for patient see pcp for bp Last Documented On 0 9:43AM ; [facility] Instructions for patient see pcp for bp Last Documented On 9 9:35AM ; [facility] Instructions for patient see pcp for bp Last Documented On 9 9:19AM ; [facility] Medical Equipment - Implanted Devices Includes: Current and historical Devices No Medical Equipment Recorded Medications Includes: Current and historical Medications Current Medications (continue as prescribed) Plavix 75 MG Oral Tablet 03/29/2021 Provider: Diagnosis: Last Documented On 2 10:05AM By Nataliia Lockwood ; [facility] Actos 15 MG Oral Tablet 01/12/2021 Provider: Diagnosis: Last Documented On 1 1:52PM By Aileen [facility] Past Medications on file oxyCODONE HCl 5 MG Oral Tablet 03/12/2021 - 03/16/2021 Provider: Danish Hartman MD Diagnosis: 1 tablet by mouth every 4 hours for post op pain Last Documented On 1 11:56AM By Danish [facility] Ultram 50 MG Oral Tablet 03/12/2021 - 03/22/2021 Provi cleo: Danish Hartman MD Diagnosis: 1-2 tablets by mouth every 4-6hrs for post op pa in Last Documented On 1 12:11PM By Danish Hartman ; [facility] Zofran 4 MG Oral Tablet 03/12/2021 - 03/29/2021 Provid er: Danish Hartman MD Diagnosis: 1 po q 6 to 8 hrs prn pain t alex 1 tablet every 6-8hrs for nausea, AFTER SURGERY Last Documented On 2 10:05AM By Nataliia Lockwood ; [facility] oxyCODONE HCl 5 MG Oral Tablet 01/14/2021 - 01/19/2021 Provider: Danish Hartman MD Diagnosis: take 1-2 tablets every 4-6hrs for post op pain Last Documented On 1 4:49PM By Danish Hartman ; [facility] Plavix 75 MG Oral Tablet 01/12/2021 - 03/29/2021 Provi cleo: Diagnosis: Last Documented On 2 10:05AM By Nataliia Lockwood ; [facility] oxyCODONE HCl 5 MG Oral Tablet 01/12/2021 - 01/17/2021 Provider: Danish Hartman MD Diagnosis: take 1-2 tablets every 4-6hrs for post op pain Last Documented On 1 10:46AM By Danish Hartman ; [facility] Losartan Potassium 50 MG Oral Tablet 01/12/2021 - 03/27 Provider: Diagnosis: Last Documented On 1 1:51PM By Aileen Perez ; [facility], [facility] Mobic 15 MG Oral Tablet 12/22/2020 - 01/21/2021 Provid er: Danish Hartman MD Diagnosis: 1 every bedtime Last Documented On 1 3:29PM By Danish Hartman ; [facility] Acetaminophen 500 MG Oral Tablet 12/22/2020 - 01/22/20 Provider: Danish Hartman MD Diagnosis: take 2 tablets 3 times daily, AFTER SURGERY Last Documented On 1 3:28PM By Danish Hartman ; [facility] Colace 100 MG Oral Capsule 12/22/2020 - 01/21/2021 Pro vider: Danish Hartman MD Diagnosis: 1-2 tablets daily, as needed, AFTER SURGERY Last Documented On 1 3:28PM By Danish Hartman ; [facility] Doxycycline Hyclate 100 MG O ral Capsule 12/22/2020 - 12/25/2020 Provider: Danish Hartman MD Diagnosis: twice a day Last Documented On 1 3:27PM By Danish Hartman ; [facility] Aspirin Adult Low Strength 8 1 MG Oral Tablet Delayed Release 12/22/2020 - 02/05/2021 Provider: Danish Hartman MD Diagnosis: twice a day Last Documented On 1 3:26PM By Danish Hartman ; [facility], [facility] Zofran 4 MG Oral Tablet 12/22/2020 - 01/21/2021 Provid er: Danish Hartman MD Diagnosis: 1 po q 6 to 8 hrs prn pain t alex 1 tablet every 6-8hrs for nausea, AFTER SURGERY Last Documented On 1 3:26PM By Danish Hartman ; [facility], [facility] Ultram 50 MG Oral Tablet 12/22/2020 - 01/01/2021 Provi cleo: Danish Hartman MD Diagnosis: 1-2 p o q 6-8h take 1-2 tabl ets every 6-8 hours for breakthrough post op pain Last Documented On 1 3:35PM By Danish Hartman ; [facility], [facility] oxyCODONE HCl 5 MG Oral Tablet 12/22/2020 - 12/27/2020 Provider: Danish Hartman MD Diagnosis: take 1-2 tablets every 4-6hrs for post op pain Last Documented On 1 3:35PM By Danish Hartman ; [facility], [facility] oxyCODONE HCl 5 MG Oral Tablet 12/15/2020 - 12/19/2020 Provider: Danish Hartman MD Diagnosis: 1-2 po q 4-6h take 1-2 table ts every 4-6hrs for post op pain Last Documented On 1 4:37PM By Danish Hartman ; [facility], [facility] Cefadroxil 500 MG Oral Capsule 12/15/2020 - 12/18/2020 Provider: Danish Hartman MD Diagnosis: twice a day Last Documented On 1 4:26PM By Danish Hartman ; [facility] Mupirocin 2% External Ointment 11/20/2020 - 03/29/2021 Provider: Danish Hartman MD Diagnosis: twice a day - apply under ea ch nostril 2 x day 5days prior to surgery with a q-tip Last Documented On 2 10:05AM By Nataliia Lockwood ; [facility] Benadryl Allergy 25 MG Oral Tablet 06/03/2019 - 2020 Provider: Diagnosis: Last Documented On 1 1:51PM By Aileen Perez ; [facility] Vitamin E 400 UNIT Oral Capsule 06/03/2019 - 01/12 Provider: Diagnosis: Last Documented On 1 1:51PM By Aileen Perez ; [facility] Vitamin C 500 MG Oral Tablet Chewable 06/03/2019 - 01/12/2021 Provider: Diagnosis: Last Documented On 1 1:51PM By Aileen Perez ; [facility] Vitamin D3 250 MCG (25496 UT) Oral Capsule 0 06/03/2019 - 01/12/2021 Provider: Diagnosis: Last Documented On 1 1:51PM By Aileen Perez ; [facility] Vitamin B6 200 MG Oral Tablet 06/03/2019 - 01/12/2021 Provider: Diagnosis: Last Documented On 1 1:51PM By Aileen Perez ; [facility] FiberCon 625 MG Oral Tablet 06/03/2019 - 01/12/2021 Pr ovider: Diagnosis: Last Documented On 1 1:51PM By Aileen Perez ; [facility] Tylenol 500mg 500mg Oral Tablet 06/03/2019 - Provider: Diagnosis: Last Documented On 1 1:51PM By Aileen Perez ; [facility] Plavix 75 MG Oral Tablet 06/03/2019 - 01/12/2021 Provi cleo: Diagnosis: Last Documented On 1 1:51PM By Aileen Perez ; [facility] Nystatin 281977 UNIT/GM External Ointment 05/03/2019 - 01/12/2021 Provider: Jonah IRENE Diagnosis: Last Documented On 1 1:51PM By Aileen Perez ; [facility] Mupirocin 2% External Ointment 04/29/2019 - 01/12/2021 Provider: Baldemar Keller MD Diagnosis: Last Documented On 1 1:51PM By Aileen Perez ; [facility] traMADol HCl 50 MG Oral Tablet 04/05/2019 - 06/12/2020 Provider: Diagnosis: Last Documented On 1 1:52PM By Aileen Perez ; [facility] Simvastatin 20 MG Oral Tablet 04/02/2019 - 01/12/2021 Provider: Diagnosis: Last Documented On 1 1:52PM By Aileen Perez ; [facility] Dicyclomine HCl 20 MG Oral Tablet 04/02/2019 - 021 Provider: Diagnosis: Last Documented On 1 1:52PM By Aileen Perez ; [facility] Losartan Potassium 50 MG Oral Tablet 04/02/2019 - 12/25 Provider: Diagnosis: Last Documented On 1 1:51PM By Aileen Perez ; [facility] Pioglitazone HCl 15 MG Oral Tablet 03/12/2019 - 01/12/2021 Provider: Jonah IRENE Diagnosis: Last Documented On 1 1:52PM By Aileen Perez ; [facility] Cyclobenzaprine HCl 5 MG Oral Tablet 02/25/2019 - 12/25 Provider: Diagnosis: Last Documented On 1 1:52PM By Aileen Perez ; [facility] Diclofenac Sodium 75 MG OR TBEC 11/09/2011 - Provider: Danish Hartman MD Diagnosis: jayy [phone] tls Last Documented On 1 12:37PM By Erendira Aguilar ; [facility] Diclofenac Sodium 75 MG OR TBEC 08/02/2011 - Provider: Danish Hartman MD Diagnosis: jayy [phone] k Last Documented On 1 12:37PM By Erendira Aguilar ; [facility], [facility] Diclofenac Sodium 75 MG OR TBEC 03/08/2011 - Provider: Danish Hartman MD Diagnosis: jayy [phone] jrk Last Documented On 12:38PM By Erendira Aguilar ; [facility], [facility] Naproxen 500 MG OR TBEC 02/14/2011 - 10/07/2020 Provid er: Danish Hartman MD Diagnosis: mkp Last Documented On 12:37PM By Erendira Aguilar ; [facility] Ambien 10 MG OR TABS 08/16/2010 - 10/07/2020 Provider: Danish Hartman MD Diagnosis: mkp Last Documented On 12:38PM By Erendira Aguilar ; [facility] Lortab 7.5-500 MG OR TABS 08/16/2010 - 10/07/2020 Prov ider: Danish Hartman MD Diagnosis: mkp Last Documented On 12:37PM By Erendira Aguilar ; [facility], [facility] Lortab 7.5-500 MG OR TABS 08/02/2010 - 10/07/2020 Prov ider: Danish Hartman MD Diagnosis: mkp post op meds Last Documented On 12:38PM By Erendira Aguilar ; [facility] DENIED EX MISC 07/28/2010 - 10/07/2020 Provider: Cande Hartman MD Diagnosis: patient needs to be seen/apt on 07/29/10/ab Last Documented On 12:37PM By Erendira Aguilar ; [facility] Lortab 5-500 MG OR TABS 04/07/2010 - 10/07/2020 Provid er: Danish Hartman MD Diagnosis: ab Last Documented On 12:37PM By Erendira Aguilar ; [facility] Lortab 7.5-500 MG OR TABS 03/04/2010 - 10/07/2020 Prov ider: Danish Hartman MD Diagnosis: ab Last Documented On 12:37PM By Erendira Aguilar ; [facility] Ultram 50 MG OR TABS 03/04/2010 - 10/07/2020 Provider: Danish Hartman MD Diagnosis: ab Last Documented On 12:37PM By Erendira Aguilar ; [facility] Lortab 5-500 MG OR TABS 02/24/2010 - 10/07/2020 Provid er: Danish Hartman MD Diagnosis: mkp phoned to jayy [phone] rio frio Last Documented On 12:37PM By Erendira Aguilar ; [facility] Lortab 5-500 MG OR TABS 02/15/2010 - 10/07/2020 Provid er: Danish Hartman MD Diagnosis: [phone] jayy pearson Last Documented On 12:37PM By Erendira Aguilar ; [facility] DENIED EX MISC 02/12/2010 - 10/07/2020 Provider: Cande Hartman MD Diagnosis: pt called for lortab. no per aubrey pt is no due until monday jrk spoke to pt df Last Documented On 12:37PM By Erendira Aguilar ; [facility] Lortab 5-500 MG OR TABS 02/09/2010 - 10/07/2020 Provid er: Danish Hartman MD Diagnosis: [phone] jayy df Last Documented On 12:37PM By Erendira Aguilar ; [facility] traMADol HCl 50 MG OR TABS 01/26/2010 - 10/07/2020 Pro vider: Danish Hartman MD Diagnosis: jayy rivera [phone] jrk Last Documented On 12:38PM By Erendira Aguilar ; [facility] Mobic 15 MG OR TABS 01/26/2010 - 10/07/2020 Provider: Danish Hartman MD Diagnosis: [place] [phone] jrk Last Documented On 12:37PM By Erendira Aguilar ; [facility] Diclofenac Sodium 75 MG OR TBEC 01/06/2010 - 1 Provider: Danish Hartman MD Diagnosis: ab Last Documented On 1 12:37PM By Erendira Aguilar ; [facility], [facility] Medications Administered Includes: Administered Medications in patient's chart No Administered Medications Recorded Results Includes: Results from 07/09/2023 through 07/08/2024 No Results Recorded For Specified Dates History of Present Illness History of Present Illness not supported for this document type No History of Present Illness Recorded Social History Description Last Updated Working part-time 03/29/2021 Last Documented On 2 1:27PM ; [facility] Caffeine use 01/12/2021 Last Documented On 2 2:59PM ; [facility] No recent change in diet 01/12/2021 Last Documented On 2 2:59PM ; [facility] Not a current smoker. 01/12/2021 Last Documented On 2 2:59PM ; [facility] Not exercising regularly 01/12/2021 Last Documented On 2 2:59PM ; [facility] Not using drugs 01/12/2021 Last Documented On 2 2:59PM ; [facility] Non-smoker 10/06/2020 Last Documented On 1 3:56PM ; [facility] No tobacco use 10/08/2018 Last Documented On 9 12:07PM ; [facility] Smoking status : Never smoker 10/08/2018 Last Documented On 9 12:07PM ; [facility] Medical History Includes: Medical History in patient's chart Description Last Updated Anemia 01/12/2021 Last Documented On 2 2:59PM ; [facility] Arthritis 01/12/2021 Last Documented On 2 2:59PM ; [facility] History of diabetes mellitus 01/12/2021 Last Documented On 2 2:59PM ; [facility] History of diverticulitis of colon 01/12 Last Documented On 2 2:59PM ; [facility] History of Gallbladder 01/12/2021 Last Documented On 2 2:59PM ; [facility] History of heart disease 01/12/2021 Last Documented On 2 2:59PM ; [facility] History of Rheumatology 01/12/2021 Last Documented On 2 2:59PM ; [facility] Hypertension 01/12/2021 Last Documented On 2 2:59PM ; [facility] Past Surgical History: RTC RT ~PKR LT ~H ernia 01/12/2021 Last Documented On 2 2:59PM ; [facility] Sleep Apnea 01/12/2021 Last Documented On 2 2:59PM ; [facility] Total knee arthroplasty 01/12/2021 Last Documented On 2 2:59PM ; [facility] Recent immunization for flu 2019 021 Last Documented On 2 2:59PM ; [facility] Recent immunization for pneumococcal pne umonia 2020 01/12/2021 Last Documented On 2 2:59PM ; [facility] Family History Includes: Family History in patient's chart Description Last Updated Diabetes mellitus 01/12/2021 Last Documented On 2 2:59PM ; [facility] Family history of cancer 01/12/2021 Last Documented On 2 2:59PM ; [facility] Family history of heart disease 01/13/20 21 Last Documented On 2 2:59PM ; [facility] Family history of hypertension 1 Last Documented On 2 2:59PM ; [facility] Family history of osteoporosis 1 Last Documented On 2 2:59PM ; [facility] Review of Systems Review of Systems not supported for this document type No Review of Systems Recorded Mental Status Description No anxiety Functional Status No Functional Status Recorded Physical Exam Physical Exam not supported for this document type No Physical Exam Recorded Allergies Includes: Active, inactive, and resolved Allergies Substance Type Reaction Onset Date Resolved Date Statu s Penicillins Allergy 10/08/2018 Active Last Documented On 2 1:07PM ; [facility] Insurance Includes: Active Insurance Policies Plan Name Member ID Group # Subscriber Relationship Effect jim Dates 1 - [facility] [id number] Simms Alford III Self Clinical Notes Includes: Signed Clinical Notes starting from 03/10/2022 No Clinical Notes Recorded
--- OUTSIDE RECORDS SUMMARY | 2024-07-08 10:37 | XMS_ITS | Clinical Summary ---
Author Organization [facility] [[email or web address]] [facility] , [facility] Address [address] [place] [address] Phone Care Team Providers Care Global Commodity Manager Name Role Phone Raj VERGAAR Anthoynrosagerald Primary Care Provider [phone] Minnie VILLALOBOS, Danish Maurer [phone] Reason for Referral Date Encounter Description Provider Reason for Referral 03/29/21 Post Op Baldemar Mota PA-C Referral To Physician - see pcp for bp Reason for Visit and Chief Complaint The Chief Complaint is: rt knee pain Problems Includes: Problems addressed during this encounter and other active Problems All Visits Onset Date Resolved Date Provider Condition S tatus Joint Pain in the Right Knee 10/06/2020 Danish Hartman MD Active Last Documented On 1 3:35PM ; [facility] Joint Pain, Localized in the Left Shoulder 10/08/2018 Ravi Kruse MD Active Last Documented On 9 8:56AM ; [facility] Plan of Treatment Patient was seen by myself Baldemar Mota PA-C. Patient will follow up [address] Hartman recheck range of motion he will continue with physical therapy 3 times a week for the next 4 weeks. Addendum March 30, 2020 we will see if we can get the patient a flexionator and extensionator either to help with his range of motion at home outside of physical therapy. I think this would beneficial for him to prevent further contracture and help him with achieving range of motion - Last Documented On 03/30/2021 1:27PM ; [facility], [facility] Pending Tests Order Diagnosis Results Due Ordering P rovider Therapy - Physical Therapy Knee 03/29/21 Baldemar Mota PA-C Last Documented On 2 10:22AM ; [facility] Assessments Includes: Assessments from this encounter Findings Right total knee replacement December 23, 2020 - Last Documented On 03/30/2021 1:27PM ; [facility] Right manipulation under anesthesia March 15, 2021 - Last Documented On 03/30/2021 1:27PM ; [facility] Medical Equipment - Implanted Devices Includes: Current Devices No Medical Equipment Recorded Medications Includes: Medications discussed during this encounter and other current Medications Discontinued / Stopped on this date Danish Hartman MD on 03/12/2021 Zofran 4 MG Oral Tablet Provider: Deanne Hartman MD Diagnosis: Last Documented On 10:05AM By Nataliia Lockwood ; [facility] Mupirocin 2% External Ointment Provider: Danish Hartman MD Diagnosis: Last Documented On 10:05AM By Nataliia Lockwood ; [facility] Current Medications (continue as prescribed) Plavix 75 MG Oral Tablet 03/29/2021 Provider: Diagnosis: Last Documented On 2 10:05AM By Nataliia Lockwood ; [facility], [facility] Actos 15 MG Oral Tablet 01/12/2021 Provider: Diagnosis: Last Documented On 1 1:52PM By Aileen [facility] Past Medications on file oxyCODONE HCl 5 MG Oral Tablet 03/12/2021 - 03/16/2021 Provider: Danish Hartman MD Diagnosis: 1 tablet by mouth every 4 hours for post op pain Last Documented On 1 11:56AM By Danish [facility] Ultram 50 MG Oral Tablet 03/12/2021 - 03/22/2021 Provi cleo: Danish Hartman MD Diagnosis: 1-2 tablets by mouth every 4-6hrs for post op pa in Last Documented On 12:11PM By Danish Hartman ; [facility], [facility] oxyCODONE HCl 5 MG Oral Tablet 01/14/2021 - 01/19/2021 Provider: Danish Hartman MD Diagnosis: take 1-2 tablets every 4-6hrs for post op pain Last Documented On 1 4:49PM By Danish Dubois [facility] oxyCODONE HCl 5 MG Oral Tablet 01/12/2021 - 01/17/2021 Provider: Danish Hartman MD Diagnosis: take 1-2 tablets every 4-6hrs for post op pain Last Documented On 1 10:46AM By Danish Dubois [facility], [facility] Losartan Potassium 50 MG Oral Tablet 01/12/2021 - 03/27 Provider: Diagnosis: Last Documented On 1 1:51PM By Aileen Dubois [facility], [facility] Mobic 15 MG Oral Tablet 12/22/2020 - 01/21/2021 Provid er: Danish Hartman MD Diagnosis: 1 every bedtime Last Documented On 1 3:29PM By Danish Dubois [facility], [facility] Acetaminophen 500 MG Oral Tablet 12/22/2020 - 01/22/20 Provider: Danish Hartman MD Diagnosis: take 2 tablets 3 times daily, AFTER SURGERY Last Documented On 1 3:28PM By Danish Hartman ; [facility], [facility] Colace 100 MG Oral Capsule 12/22/2020 - 01/21/2021 Pro vider: Danish Hartman MD Diagnosis: 1-2 tablets daily, as needed, AFTER SURGERY Last Documented On 1 3:28PM By Danish Hartman ; [facility], [facility] Doxycycline Hyclate 100 MG O ral Capsule 12/22/2020 - 12/25/2020 Provider: Danish Hartman MD Diagnosis: twice a day Last Documented On 1 3:27PM By Danish Dubois [facility], [facility] Aspirin Adult Low Strength 8 1 MG Oral Tablet Delayed Release 12/22/2020 - 02/05/2021 Provider: Danish Hartman MD Diagnosis: twice a day Last Documented On 1 3:26PM By Danish Dubois [facility], [facility] Zofran 4 MG Oral Tablet 12/22/2020 - 01/21/2021 Provid er: Danish Hartman MD Diagnosis: 1 po q 6 to 8 hrs prn pain t alex 1 tablet every 6-8hrs for nausea, AFTER SURGERY Last Documented On 1 3:26PM By Danish Hartman ; [facility], [facility] Ultram 50 MG Oral Tablet 12/22/2020 - 01/01/2021 Provi cleo: Danish Hartman MD Diagnosis: 1-2 p o q 6-8h take 1-2 tabl ets every 6-8 hours for breakthrough post op pain Last Documented On 1 3:35PM By Danish Dubois [facility], [facility] oxyCODONE HCl 5 MG Oral Tablet 12/22/2020 - 12/27/2020 Provider: Danish Hartman MD Diagnosis: take 1-2 tablets every 4-6hrs for post op pain Last Documented On 1 3:35PM By Danish Hartman ; [facility], [facility] oxyCODONE HCl 5 MG Oral Tablet 12/15/2020 - 12/19/2020 Provider: Danish Hartman MD Diagnosis: 1-2 po q 4-6h take 1-2 table ts every 4-6hrs for post op pain Last Documented On 1 4:37PM By Danish Dubois [facility], [facility] Cefadroxil 500 MG Oral Capsule 12/15/2020 - 12/18/2020 Provider: Danish Hartman MD Diagnosis: twice a day Last Documented On 1 4:26PM By Danish Hartman ; [facility], [facility] Medications Administered Includes: Administered Medications from this encounter No Administered Medications Recorded Vital Signs Includes: Vital Signs from this encounter Vital Name 03/29/2021 10:05A Blood Pressure Sitting (mmHg) 142/83 Pulse Rate-Sitting (bpm) 100 Height (in) 69 Note: [facility] Last Documented: On 03/29/2021 10:05A M ; [facility], [facility] Results Includes: Results discussed during this encounter No Results Recorded For Specified Dates History of Present Illness Includes: History of Present Illness from this encounter ABEL Alford III is a 70 year old male. - Allergy list reviewed - Problem list reviewed - Medication reconciliation performed - Medication list reviewed with patient Patient is here today for follow-up of his right knee manipulation under anesthesia March 15, 2021. He proves he had a right total knee replacement and developed diffuse capsulitis with this he is doing physical therapy 3 times a week he feels like he is making progress he says with PT they were able to get him up to 108 degrees. He has been doing exercises at home and also doing prone's at home. patient is a little frustrated still at this point in time. Social History Description Last Updated Working part-time 03/29/2021 Last Documented On 2 1:27PM ; [facility], [facility] Caffeine use 01/12/2021 Last Documented On 2 9:48AM ; [facility] No recent change in diet 01/12/2021 Last Documented On 2 9:48AM ; [facility] Not a current smoker. 01/12/2021 Last Documented On 2 9:48AM ; [facility] Not exercising regularly 01/12/2021 Last Documented On 2 9:48AM ; [facility] Not using drugs 01/12/2021 Last Documented On 2 9:48AM ; [facility] Non-smoker 10/06/2020 Last Documented On 2 9:48AM ; [facility] No tobacco use 10/08/2018 Last Documented On 2 9:48AM ; [facility] Smoking status : Never smoker 10/08/2018 Last Documented On 2 9:48AM ; [facility], [facility] Procedures and Surgical History Includes: Procedures from this encounter Procedures Code Diagnosis Performing Provider Service L ocation Service Date use of tobacco assessment performed 1000F Last Documented On 2 9:48AM ; [facility], [facility] referral to physician see pcp for bp Last Documented On 2 9:48AM ; [facility] Pt received screening for fall risk G8270 Last Documented On 2 9:48AM ; [facility] an X-ray was performed 73292 Last Documented On 2 9:48AM ; [facility] an MRI was performed [id number] Last Documented On 2 9:48AM ; [facility] History of EKG Last Documented On 2 9:48AM ; [facility] History of Blood Tests Last Documented On 2 9:48AM ; [email or web address] Medical History Includes: Medical History addressed during this encounter Description Last Updated Anemia 01/12/2021 Last Documented On 2 9:48AM ; [email or web address] Arthritis 01/12/2021 Last Documented On 2 9:48AM ; [email or web address] History of diabetes mellitus 01/12/2021 Last Documented On 2 9:48AM ; [email or web address] History of diverticulitis of colon 01/12 Last Documented On 2 9:48AM ; [facility] History of Gallbladder 01/12/2021 Last Documented On 2 9:48AM ; [email or web address] History of heart disease 01/12/2021 Last Documented On 2 9:48AM ; [email or web address], [facility] History of Rheumatology 01/12/2021 Last Documented On 2 9:48AM ; [facility] Hypertension 01/12/2021 Last Documented On 2 9:48AM ; [facility] Past Surgical History: RTC RT ~PKR LT ~H ernia 01/12/2021 Last Documented On 2 9:48AM ; [email or web address] Sleep Apnea 01/12/2021 Last Documented On 2 9:48AM ; [email or web address] Total knee arthroplasty 01/12/2021 Last Documented On 2 9:48AM ; [email or web address] Recent immunization for flu 2019 021 Last Documented On 2 9:48AM ; [facility] Recent immunization for pneumococcal pne umonia 201901/12/2021 Last Documented On 2 9:48AM ; [email or web address] Family History Includes: Family History addressed during this encounter Description Last Updated Diabetes mellitus 01/12/2021 Last Documented On 2 9:48AM ; [email or web address] Family history of cancer 01/12/2021 Last Documented On 2 9:48AM ; [facility] Family history of heart disease 01/13/20 21 Last Documented On 2 9:48AM ; [facility] Family history of hypertension 1 Last Documented On 2 9:48AM ; [facility] Family history of osteoporosis 1 Last Documented On 2 9:48AM ; [facility] Review of Systems Includes: Review of Systems from this encounter Systemic: Feeling tired. No recent weight loss and no recent weight gain. Head: No headache and no sinus pain. Eyes: No vision problems and no Cataracts. Glasses/Contacts. No Glaucoma. Otolaryngeal: No hearing loss and no tinnitus. Cardiovascular: No chest pain or discomfort and no palpitations. Hypertension and High Cholesterol. Pulmonary: No daytime asthma symptoms. Chronic cough. No wheezing. Gastrointestinal: No heartburn and no abdominal pain. No Indigestion, no Acid Reflux, no Peptic Ulcer, no GI Stomach Bleed, and no Ulcers. Endocrine: No hot flashes. Muscle weakness and Diabetes. No Hypothyroid and no Hyperthyroid. Hematologic: Easy bleeding. No tendency for easy bruising. Anemia. Musculoskeletal: Arthritis. No lower back pain. Soft tissue swelling and pain localized to one or more joints. Neurological: No dizziness and no convulsions. Numbness. Psychological: No anxiety, no emotional lability, and no depression. Insomnia. Not crying for no reason. Skin: No dry skin. No Ulcers, no Scars, and no rash. Allergic and Immunologic: Complaint of seasonal allergic reaction. no ROS changes 03/29/20 Mental Status Includes: Mental Status from this encounter Description No anxiety Functional Status Includes: Functional Status from this encounter No Functional Status Recorded Physical Exam Includes: Physical Exam from this encounter Allergies Includes: Active Allergies Substance Type Reaction Onset Date Resolved Date Statu s Penicillins Allergy 10/08/2018 Active Last Documented On 2 1:07PM ; [facility] Encounters Encounter Provider Location Date Check-In Time Check- Out Time Diagnosis Post Op Baldemar Mota PA-C [facility] 2 9:47AM 10:21AM Insurance Includes: Active Insurance Policies Plan Name Member ID Group # Subscriber Relationship Effect jim Dates 1 - [facility] [id number] [place] Alford III Self Clinical Notes Includes: Clinical Notes from this encounter No Clinical Notes Recorded
--- OUTSIDE RECORDS SUMMARY | 2024-07-08 10:37 | XMS_ITS ---
Care Plan - [facility] Created on: July 08, 2024 Mable Alford III : 1950 Sex: Male Author Organization [facility] Address [address] [place] [address] Phone Care Team Providers Care Dental Laboratory Supervisor Name Role Phone Jonah Anthony APRN Primary Care Provider [phone] Minnie VILLALOBOS, Danish [facility] [phone]
--- OUTSIDE RECORDS SUMMARY | 2024-07-08 10:38 | XMS_ITS | Clinical Summary ---
Author Organization [facility] Address [address] [place] [address] Phone Care Team Providers Care Starch Crab Name Role Phone Raj VERGARA Anthonybelia Primary Care Provider [phone] Minnie VILLALOBOS, Danish Maurer [phone] Reason for Visit and Chief Complaint The Chief Complaint is: rt knee pain Problems Includes: Problems addressed during this encounter and other active Problems All Visits Onset Date Resolved Date Provider Condition S tatus Joint Pain in the Right Knee 10/06/2020 Danish Hartman MD Active Last Documented On 1 3:35PM ; [facility] Joint Pain, Localized in the Left Shoulder 10/08/2018 Ravi Kruse MD Active Last Documented On 9 8:56AM ; [facility] Plan of Treatment Patient was seen by myself and Dr. Hartman. Baldemar Mota PA-C Patient will follow- up 4 weeks continue physical therapy 2 times a week emphasizing range of motion hopefully we will see if we can return him to work in 4 weeks continue with Dynasplint at home - Last Documented On 04/20/2021 11:22PM ; [facility] Pending Tests Order Diagnosis Results Due Ordering P rovider Therapy - Physical Therapy Knee 04/20/21 Danish Hartman MD Last Documented On 2 11:22PM ; [facility] Assessments Includes: Assessments from this encounter Findings Right total knee replacement - Last Documented On 04/20/2021 11:22PM ; [facility] Right knee manipulation under anesthesia March 15, 2021 - Last Documented On 04/20/2021 11:22PM ; [facility] Medical Equipment - Implanted Devices Includes: Current Devices No Medical Equipment Recorded Medications Includes: Medications discussed during this encounter and other current Medications Current Medications (continue as prescribed) Plavix 75 MG Oral Tablet 03/29/2021 Provider: Diagnosis: Last Documented On 2 10:05AM By Nataliia Lockwood ; [facility] Actos 15 MG Oral Tablet 01/12/2021 Provider: Diagnosis: Last Documented On 1 1:52PM By Aileen Perez ; [facility] Past Medications on file oxyCODONE HCl 5 MG Oral Tablet 03/12/2021 - 03/16/2021 Provider: Danish Hartman MD Diagnosis: 1 tablet by mouth every 4 hours for post op pain Last Documented On 1 11:56AM By Danish Hartman ; [facility] Ultram 50 MG Oral Tablet 03/12/2021 - 03/22/2021 Provi cleo: Danish Hartman MD Diagnosis: 1-2 tablets by mouth every 4-6hrs for post op pa in Last Documented On 1 12:11PM By Danish Hartman ; [facility], [facility] oxyCODONE HCl 5 MG Oral Tablet 01/14/2021 - 01/19/2021 Provider: Danish Hartman MD Diagnosis: take 1-2 tablets every 4-6hrs for post op pain Last Documented On 1 4:49PM By Danish Hartman ; [facility], [facility] oxyCODONE HCl 5 MG Oral Tablet 01/12/2021 - 01/17/2021 Provider: Danish Hartman MD Diagnosis: take 1-2 tablets every 4-6hrs for post op pain Last Documented On 1 10:46AM By Danish Hartman ; [facility] Losartan Potassium 50 MG Oral Tablet 01/12/2021 - 03/27 Provider: Diagnosis: Last Documented On 1 1:51PM By Aileen Perez ; [facility] Mobic 15 MG Oral Tablet 12/22/2020 - 01/21/2021 Provid er: Danish Hartman MD Diagnosis: 1 every bedtime Last Documented On 1 3:29PM By Danish Hartman ; [facility] Acetaminophen 500 MG Oral Tablet 12/22/2020 - 01/22/20 Provider: Danish Hartman MD Diagnosis: take 2 tablets 3 times daily, AFTER SURGERY Last Documented On 1 3:28PM By Danish Hartman ; [facility] Colace 100 MG Oral Capsule 12/22/2020 - 01/21/2021 Pro vider: Danish Hartman MD Diagnosis: 1-2 tablets daily, as needed, AFTER SURGERY Last Documented On 3:28PM By Danish Hartman ; [facility] Doxycycline Hyclate 100 MG O ral Capsule 12/22/2020 - 12/25/2020 Provider: Danish Hartman MD Diagnosis: twice a day Last Documented On 3:27PM By Danish Hartman ; [facility], [facility] Aspirin Adult Low Strength 8 1 MG Oral Tablet Delayed Release 12/22/2020 - 02/05/2021 Provider: Danish Hartman MD Diagnosis: twice a day Last Documented On 3:26PM By Danish Hartman ; [facility] Zofran 4 MG Oral Tablet 12/22/2020 - 01/21/2021 Provid er: Danish Hartman MD Diagnosis: 1 po q 6 to 8 hrs prn pain t alex 1 tablet every 6-8hrs for nausea, AFTER SURGERY Last Documented On 1 3:26PM By Danish Hartman ; [facility] Ultram 50 MG Oral Tablet 12/22/2020 - 01/01/2021 Provi cleo: Danish Hartman MD Diagnosis: 1-2 p o q 6-8h take 1-2 tabl ets every 6-8 hours for breakthrough post op pain Last Documented On 3:35PM By Danish Hartman ; [facility] oxyCODONE HCl 5 MG Oral Tablet 12/22/2020 - 12/27/2020 Provider: Danish Hartman MD Diagnosis: take 1-2 tablets every 4-6hrs for post op pain Last Documented On 3:35PM By Danish Hartman ; [facility] oxyCODONE HCl 5 MG Oral Tablet 12/15/2020 - 12/19/2020 Provider: Danish Hartman MD Diagnosis: 1-2 po q 4-6h take 1-2 table ts every 4-6hrs for post op pain Last Documented On 1 4:37PM By Danish Hartman ; [facility] Cefadroxil 500 MG Oral Capsule 12/15/2020 - 12/18/2020 Provider: Danish Hartman MD Diagnosis: twice a day Last Documented On 1 4:26PM By Danish Hartman ; [facility] Medications Administered Includes: Administered Medications from this encounter No Administered Medications Recorded Vital Signs Includes: Vital Signs from this encounter Vital Name 04/20/2021 10:21A Blood Pressure Sitting (mmHg) 124/80 Pulse Rate-Sitting (bpm) 84 Height (in) 69 Weight (lb) 213.5 Body Mass Index (kg/m2) 31.5 Body Surface Area (m2) 2.1 Note: MG Last Documented: On 04/20/2021 10:24A M ; [facility] Results Includes: Results discussed during this encounter No Results Recorded For Specified Dates History of Present Illness Includes: History of Present Illness from this encounter ABEL Alford III is a 70 year old male. - Allergy list reviewed - Problem list reviewed - Medication reconciliation performed - Medication list reviewed with patient Follow-up right total knee and right ablation under anesthesia. The manipulation under anesthesia was March 15, 2021. He is making progress with physical therapy's this past week they got him to 112 is using the Dynasplint at home he would like to do therapy twice a week he still cannot kneel on the knee which is required for him at work. He states he is able to sleep better still wearing compression stocking. Social History Description Last Updated Working part-time 03/29/2021 Last Documented On 2 10:06AM ; [facility] Caffeine use 01/12/2021 Last Documented On 2 10:06AM ; [facility] No recent change in diet 01/12/2021 Last Documented On 2 10:06AM ; [facility] Not a current smoker. 01/12/2021 Last Documented On 2 10:06AM ; [facility] Not exercising regularly 01/12/2021 Last Documented On 2 10:06AM ; [facility] Not using drugs 01/12/2021 Last Documented On 2 10:06AM ; [facility] Non-smoker 10/06/2020 Last Documented On 2 10:06AM ; [facility] No tobacco use 10/08/2018 Last Documented On 2 10:06AM ; [facility] Smoking status : Never smoker 10/08/2018 Last Documented On 2 10:06AM ; [facility] Procedures and Surgical History Includes: Procedures from this encounter Procedures Code Diagnosis Performing Provider Service L ocation Service Date use of tobacco assessment performed 1000F Last Documented On 2 10:06AM ; [facility] an X-ray was performed 18629 Last Documented On 2 10:06AM ; [facility] an MRI was performed [id number] Last Documented On 2 10:06AM ; [facility] History of EKG Last Documented On 2 10:06AM ; [facility] History of Blood Tests Last Documented On 2 10:06AM ; [facility] Medical History Includes: Medical History addressed during this encounter Description Last Updated Anemia 01/12/2021 Last Documented On 2 10:06AM ; [facility] Arthritis 01/12/2021 Last Documented On 2 10:06AM ; [facility] History of diabetes mellitus 01/12/2021 Last Documented On 2 10:06AM ; [facility] History of diverticulitis of colon 01/12 Last Documented On 2 10:06AM ; [facility] History of Gallbladder 01/12/2021 Last Documented On 2 10:06AM ; [facility] History of heart disease 01/12/2021 Last Documented On 2 10:06AM ; [facility] History of Rheumatology 01/12/2021 Last Documented On 2 10:06AM ; [facility] Hypertension 01/12/2021 Last Documented On 2 10:06AM ; [facility] Past Surgical History: RTC RT ~PKR LT ~H ernia 01/12/2021 Last Documented On 2 10:06AM ; [facility] Sleep Apnea 01/12/2021 Last Documented On 2 10:06AM ; [facility], [facility] Total knee arthroplasty 01/12/2021 Last Documented On 2 10:06AM ; [facility] Recent immunization for flu 2019 021 Last Documented On 2 10:06AM ; [facility] Recent immunization for pneumococcal pne umonia 201901/12/2021 Last Documented On 2 10:06AM ; [facility], [facility] Family History Includes: Family History addressed during this encounter Description Last Updated Diabetes mellitus 01/12/2021 Last Documented On 2 10:06AM ; [facility], [facility] Family history of cancer 01/12/2021 Last Documented On 2 10:06AM ; [facility], [facility] Family history of heart disease 01/13/20 21 Last Documented On 2 10:06AM ; [facility], [facility] Family history of hypertension 1 Last Documented On 2 10:06AM ; [facility], [facility] Family history of osteoporosis 1 Last Documented On 2 10:06AM ; [facility], [facility] Review of Systems Includes: Review of [...] and Immunologic: Complaint of seasonal allergic reaction. Mental Status Includes: Mental Status from this encounter Description No anxiety Functional Status Includes: Functional Status from this encounter No Functional Status Recorded Physical Exam Includes: Physical Exam from this encounter Allergies Includes: Active Allergies Substance Type Reaction Onset Date Resolved Date Statu s Penicillins Allergy 10/08/2018 Active Last Documented On 2 1:07PM ; [facility], [facility] Encounters Encounter Provider Location Date Check-In Time Check- Out Time Diagnosis Post Op Danish Hartman MD [facility] 2 9:50AM 10:50AM Insurance Includes: Active Insurance Policies Plan Name Member ID Group # Subscriber Relationship Effect jim Dates 1 - [facility] [id number] Ligonier Alford III Self Clinical Notes Includes: Clinical Notes from this encounter No Clinical Notes Recorded
--- OUTSIDE RECORDS SUMMARY | 2024-07-08 10:38 | XMS_ITS | Clinical Summary ---
Author Organization [facility] Address [address] [place] [address] Phone Care Team Providers Care Sulphate Tester Name Role Phone Jonah Anthony APRN Primary Care Provider [phone] Minnie VILLALOBOS, Danish Maurer [phone] Reason for Visit and Chief Complaint Post Op Problems Includes: Problems addressed during this encounter and other active Problems All Visits Onset Date Resolved Date Provider Condition S tatus Joint Pain in the Right Knee 10/06/2020 Danish Hartman MD Active Last Documented On 1 3:35PM ; [facility] Joint Pain, Localized in the Left Shoulder 10/08/2018 Ravi Kruse MD Active Last Documented On 9 8:56AM ; [facility] Plan of Treatment Right total knee improving patient continue using the dynamic splints at home to continue stretching extension and flexion follow-up in 6-8 weeks return to work full duty no restrictions - Last Documented On 05/24/2021 3:41PM ; [facility] Instructions to patient Lose weight Last Documented On 2 10:06AM ; [facility] Assessments Includes: Assessments from this encounter No Assessments Recorded Instructions Includes: Instructions from this encounter Instructions to patient Lose weight Last Documented On 2 10:06AM ; [facility] Medical Equipment - Implanted Devices Includes: Current Devices No Medical Equipment Recorded Medications Includes: Medications discussed during this encounter and other current Medications Current Medications (continue as prescribed) Plavix 75 MG Oral Tablet 03/29/2021 Provider: Diagnosis: Last Documented On 2 10:05AM By Nataliia Lockwood ; [facility] Actos 15 MG Oral Tablet 01/12/2021 Provider: Diagnosis: Last Documented On 1 1:52PM By Aileen Perez ; [facility] Past Medications on file oxyCODONE HCl 5 MG Oral Tablet 03/12/2021 - 03/16/2021 Provider: Danish Hartman MD Diagnosis: 1 tablet by mouth every 4 hours for post op pain Last Documented On 1 11:56AM By Danish Hartman ; [facility] Ultram 50 MG Oral Tablet 03/12/2021 - 03/22/2021 Provi cleo: Danish Hartman MD Diagnosis: 1-2 tablets by mouth every 4-6hrs for post op pa in Last Documented On 1 12:11PM By Danish Hartman ; [facility] oxyCODONE HCl 5 MG Oral Tablet 01/14/2021 - 01/19/2021 Provider: Danish Hartman MD Diagnosis: take 1-2 tablets every 4-6hrs for post op pain Last Documented On 1 4:49PM By Danish Hartman ; [facility] oxyCODONE HCl 5 MG Oral Tablet 01/12/2021 - 01/17/2021 Provider: Danish Hartman MD Diagnosis: take 1-2 tablets every 4-6hrs for post op pain Last Documented On 1 10:46AM By Danish Hartman ; [facility] Losartan Potassium 50 MG Oral Tablet 01/12/2021 - 03/27 Provider: Diagnosis: Last Documented On 1 1:51PM By Aileen Perez ; [facility] Mobic 15 MG Oral Tablet 12/22/2020 - 01/21/2021 Provid er: Danish Hartman MD Diagnosis: 1 every bedtime Last Documented On 1 3:29PM By Danish Hartman ; [facility] Acetaminophen 500 MG Oral Tablet 12/22/2020 - 01/22/20 Provider: Danish Hartman MD Diagnosis: take 2 tablets 3 times daily, AFTER SURGERY Last Documented On 1 3:28PM By Danish [facility] Colace 100 MG Oral Capsule 12/22/2020 - 01/21/2021 Pro vider: Danish Hartman MD Diagnosis: 1-2 tablets daily, as needed, AFTER SURGERY Last Documented On 1 3:28PM By Danish Hartman ; [facility], [facility] Doxycycline Hyclate 100 MG O ral Capsule 12/22/2020 - 12/25/2020 Provider: Danish Hartman MD Diagnosis: twice a day Last Documented On 1 3:27PM By Danish Hartman ; [facility], [facility] Aspirin Adult Low Strength 8 1 MG Oral Tablet Delayed Release 12/22/2020 - 02/05/2021 Provider: Danish Hartman MD Diagnosis: twice a day Last Documented On 1 3:26PM By Danish Hartman ; [facility] Zofran 4 MG Oral Tablet 12/22/2020 - 01/21/2021 Provid er: Danish Hartman MD Diagnosis: 1 po q 6 to 8 hrs prn pain t alex 1 tablet every 6-8hrs for nausea, AFTER SURGERY Last Documented On 1 3:26PM By Danish Hartman ; [facility] Ultram 50 MG Oral Tablet 12/22/2020 - 01/01/2021 Provi cleo: Danish Hartman MD Diagnosis: 1-2 p o q 6-8h take 1-2 tabl ets every 6-8 hours for breakthrough post op pain Last Documented On 1 3:35PM By Danish Hartman ; [facility] oxyCODONE HCl 5 MG Oral Tablet 12/22/2020 - 12/27/2020 Provider: Danish Hartman MD Diagnosis: take 1-2 tablets every 4-6hrs for post op pain Last Documented On 1 3:35PM By Danish Hartman ; [facility] oxyCODONE HCl 5 MG Oral Tablet 12/15/2020 - 12/19/2020 Provider: Danish Hartman MD Diagnosis: 1-2 po q 4-6h take 1-2 table ts every 4-6hrs for post op pain Last Documented On 1 4:37PM By Danish Hartman ; [facility] Cefadroxil 500 MG Oral Capsule 12/15/2020 - 12/18/2020 Provider: Danish Hartman MD Diagnosis: twice a day Last Documented On 1 4:26PM By Danish Hartman ; [facility] Medications Administered Includes: Administered Medications from this encounter No Administered Medications Recorded Vital Signs Includes: Vital Signs from this encounter Vital Name 05/18/2021 10:04A Blood Pressure Sitting (mmHg) 136/71 Pulse Rate-Sitting (bpm) 79 Height (in) 69 Weight (lb) 215 Body Mass Index (kg/m2) 31.7 Body Surface Area (m2) 2.1 Note: sc Last Documented: On 05/18/2021 10:05A M ; [facility] Results Includes: Results discussed during this encounter No Results Recorded For Specified Dates History of Present Illness Includes: History of Present Illness from this encounter ABEL Alford III is a 70 year old male. - Allergy list reviewed - Problem list reviewed - Medication reconciliation performed - Medication list reviewed with patient Follow right total knee significant improvement in his motion still slight flexion contracture but flexion of 215 at this point Social History Description Last Updated Working part-time 03/29/2021 Last Documented On 2 9:59AM ; [facility] Caffeine use 01/12/2021 Last Documented On 2 9:59AM ; [facility] No recent change in diet 01/12/2021 Last Documented On 2 9:59AM ; [facility] Not a current smoker. 01/12/2021 Last Documented On 2 9:59AM ; [facility] Not exercising regularly 01/12/2021 Last Documented On 2 9:59AM ; [facility] Not using drugs 01/12/2021 Last Documented On 2 9:59AM ; [facility] Non-smoker 10/06/2020 Last Documented On 2 9:59AM ; [facility] No tobacco use 10/08/2018 Last Documented On 2 9:59AM ; [facility] Smoking status : Never smoker 10/08/2018 Last Documented On 2 9:59AM ; [facility] Procedures and Surgical History Includes: Procedures from this encounter Procedures Code Diagnosis Performing Provider Service L ocation Service Date use of tobacco assessment performed 1000F Last Documented On 2 9:59AM ; [facility] Medical History Includes: Medical History addressed during this encounter Description Last Updated Anemia 01/12/2021 Last Documented On 2 9:59AM ; [facility] Arthritis 01/12/2021 Last Documented On 2 9:59AM ; [facility] History of diabetes mellitus 01/12/2021 Last Documented On 2 9:59AM ; [facility] History of diverticulitis of colon 01/12 Last Documented On 2 9:59AM ; [facility] History of Gallbladder 01/12/2021 Last Documented On 2 9:59AM ; [facility] History of heart disease 01/12/2021 Last Documented On 2 9:59AM ; [facility] History of Rheumatology 01/12/2021 Last Documented On 2 9:59AM ; [facility] Hypertension 01/12/2021 Last Documented On 2 9:59AM ; [facility] Past Surgical History: RTC RT ~PKR LT ~H ernia 01/12/2021 Last Documented On 2 9:59AM ; [facility] Sleep Apnea 01/12/2021 Last Documented On 2 9:59AM ; [facility] Total knee arthroplasty 01/12/2021 Last Documented On 2 9:59AM ; [facility] Recent immunization for flu 2019 021 Last Documented On 2 9:59AM ; [facility] Recent immunization for pneumococcal pne umonia 201901/12/2021 Last Documented On 2 9:59AM ; [facility] Family History Includes: Family History addressed during this encounter Description Last Updated Diabetes mellitus 01/12/2021 Last Documented On 2 9:59AM ; [facility] Family history of cancer 01/12/2021 Last Documented On 2 9:59AM ; [facility] Family history of heart disease 01/13/20 21 Last Documented On 2 9:59AM ; [facility] Family history of hypertension 1 Last Documented On 2 9:59AM ; [facility] Family history of osteoporosis 1 Last Documented On 2 9:59AM ; [facility] Review of Systems Includes: Review of Systems [...] Active Last Documented On 2 1:07PM ; [facility] Encounters Encounter Provider Location Date Check-In Time Check- Out Time Diagnosis Post Op Danish Hartman MD [facility] 2 9:58AM 10:38AM Insurance Includes: Active Insurance Policies Plan Name Member ID Group # Subscriber Relationship Effect jim Dates 1 - [facility] [id number] Barnsdall Alford III Self Clinical Notes Includes: Clinical Notes from this encounter No Clinical Notes Recorded
--- OUTSIDE RECORDS SUMMARY | 2024-07-08 10:38 | XMS_ITS | Clinical Summary ---
Author Organization [facility] Address [address] [place] [address] Phone Care Team Providers Care Malt House Kiln Operator Name Role Phone Raj VERGARA Anthonybelia Primary Care Provider [phone] Minnie VILLALOBOS, Danish Maurer [phone] Reason for Visit and Chief Complaint The Chief Complaint is: RT TKA Problems Includes: Problems addressed during this encounter and other active Problems All Visits Onset Date Resolved Date Provider Condition S tatus Joint Pain in the Right Knee 10/06/2020 Danish Hartman MD Active Last Documented On 1 3:35PM ; [facility] Joint Pain, Localized in the Left Shoulder 10/08/2018 Ravi Kruse MD Active Last Documented On 9 8:56AM ; [facility], [facility] Plan of Treatment Patient was seen by myself Baldemar Mota PA-C. Patient will follow up 5 months repeat x-rays right knee if he has a problem in the interim he is to let us know. I think he can obtain new to do exercises on his own but he can DC the brace is that he had for range of motion - Last Documented On 06/29/2021 1:27PM ; [facility], [facility] Instructions to patient Lose weight Last Documented On 2 1:01PM ; [facility] Assessments Includes: Assessments from this encounter Findings Right total knee replacement November 2020 with vapor ablation in February 2021 - Last Documented On 06/29/2021 1:27PM ; [facility], [facility] Instructions Includes: Instructions from this encounter Instructions to patient Lose weight Last Documented On 2 1:01PM ; [facility] Medical Equipment - Implanted Devices Includes: Current Devices No Medical Equipment Recorded Medications Includes: Medications discussed during this encounter and other current Medications Current Medications (continue as prescribed) Plavix 75 MG Oral Tablet 03/29/2021 Provider: Diagnosis: Last Documented On 2 10:05AM By Nataliia Lockwood ; [facility] Actos 15 MG Oral Tablet 01/12/2021 Provider: Diagnosis: Last Documented On 1 1:52PM By Aileen Dubois [facility] Past Medications on file oxyCODONE HCl 5 MG Oral Tablet 03/12/2021 - 03/16/2021 Provider: Danish Hartman MD Diagnosis: 1 tablet by mouth every 4 hours for post op pain Last Documented On 1 11:56AM By Danish Hartman ; [facility] Ultram 50 MG Oral Tablet 03/12/2021 - 03/22/2021 Provi cleo: Danish Hartman MD Diagnosis: 1-2 tablets by mouth every 4-6hrs for post op pa in Last Documented On 1 12:11PM By Danish Hartman ; [facility] oxyCODONE HCl 5 MG Oral Tablet 01/14/2021 - 01/19/2021 Provider: Danish Hartman MD Diagnosis: take 1-2 tablets every 4-6hrs for post op pain Last Documented On 1 4:49PM By Danish Hartman ; [facility], [facility] oxyCODONE HCl 5 MG Oral Tablet 01/12/2021 - 01/17/2021 Provider: Danish Hartman MD Diagnosis: take 1-2 tablets every 4-6hrs for post op pain Last Documented On 1 10:46AM By Danish Hartman ; [facility] Losartan Potassium 50 MG Oral Tablet 01/12/2021 - 03/27 Provider: Diagnosis: Last Documented On 1 1:51PM By Aileen Dubois [facility] Mobic 15 MG Oral Tablet 12/22/2020 - 01/21/2021 Provid er: Danish Hartman MD Diagnosis: 1 every bedtime Last Documented On 1 3:29PM By Danish Hartman ; [facility] Acetaminophen 500 MG Oral Tablet 12/22/2020 - 01/22/20 Provider: Danish Hartman MD Diagnosis: take 2 tablets 3 times daily, AFTER SURGERY Last Documented On 1 3:28PM By Danish Hartman ; [facility], [facility] Colace 100 MG Oral Capsule 12/22/2020 - 01/21/2021 Pro vider: Danish Hartman MD Diagnosis: 1-2 tablets daily, as needed, AFTER SURGERY Last Documented On 1 3:28PM By Danish Hartman ; [facility], [facility] Doxycycline Hyclate 100 MG O ral Capsule 12/22/2020 - 12/25/2020 Provider: Danish Hartman MD Diagnosis: twice a day Last Documented On 1 3:27PM By Danish Hartman ; [facility], [facility] Aspirin Adult Low Strength 8 1 MG Oral Tablet Delayed Release 12/22/2020 - 02/05/2021 Provider: Danish Hartman MD Diagnosis: twice a day Last Documented On 1 3:26PM By Danish Hartman ; [facility], [facility] Zofran 4 MG Oral Tablet 12/22/2020 - 01/21/2021 Provid er: Danish Hartman MD Diagnosis: 1 po q 6 to 8 hrs prn pain t alex 1 tablet every 6-8hrs for nausea, AFTER SURGERY Last Documented On 1 3:26PM By Danish Hartman ; [facility], [facility] Ultram 50 MG Oral Tablet 12/22/2020 - 01/01/2021 Provi cleo: Danish Hartman MD Diagnosis: 1-2 p o q 6-8h take 1-2 tabl ets every 6-8 hours for breakthrough post op pain Last Documented On 1 3:35PM By Danish Hartman ; [facility], [facility] oxyCODONE HCl 5 MG Oral Tablet 12/22/2020 - 12/27/2020 Provider: Danish Hartman MD Diagnosis: take 1-2 tablets every 4-6hrs for post op pain Last Documented On 1 3:35PM By Danish Hartman ; [facility], [facility] oxyCODONE HCl 5 MG Oral Tablet 12/15/2020 - 12/19/2020 Provider: Danish Hartman MD Diagnosis: 1-2 po q 4-6h take 1-2 table ts every 4-6hrs for post op pain Last Documented On 1 4:37PM By Danish Hartman ; [facility] Cefadroxil 500 MG Oral Capsule 12/15/2020 - 12/18/2020 Provider: Danish Hartman MD Diagnosis: twice a day Last Documented On 1 4:26PM By Danish Hartman ; [facility] Medications Administered Includes: Administered Medications from this encounter No Administered Medications Recorded Vital Signs Includes: Vital Signs from this encounter Vital Name 06/29/2021 01:11P Blood Pressure Sitting (mmHg) 102/63 Pulse Rate-Sitting (bpm) 96 Height (in) 69 Weight (lb) 214.8 Body Mass Index (kg/m2) 31.7 Body Surface Area (m2) 2.1 Note: mg Last Documented: On 06/29/2021 1:11PM ; [facility] Results Includes: Results discussed during this encounter No Results Recorded For Specified Dates History of Present Illness Includes: History of Present Illness from this encounter ABEL Alford III is a 70 year old male. - Allergy list reviewed - Problem list reviewed - Medication reconciliation performed - Medication list reviewed - Medication list reviewed with patient Follow-up right total knee with manipulation under anesthesia. His right total knee was in November 2020 back working is doing good back to work exists some difficulty still with kneeling on the knee though as well as climbing Social History Description Last Updated Working part-time 03/29/2021 Last Documented On 2 1:01PM ; [facility] Caffeine use 01/12/2021 Last Documented On 2 1:01PM ; [facility] No recent change in diet 01/12/2021 Last Documented On 2 1:01PM ; [facility] Not a current smoker. 01/12/2021 Last Documented On 2 1:01PM ; [facility] Not exercising regularly 01/12/2021 Last Documented On 2 1:01PM ; [facility] Not using drugs 01/12/2021 Last Documented On 2 1:01PM ; [facility] Non-smoker 10/06/2020 Last Documented On 2 1:01PM ; [facility] No tobacco use 10/08/2018 Last Documented On 2 1:01PM ; [facility] Smoking status : Never smoker 10/08/2018 Last Documented On 2 1:01PM ; [facility], [facility] Procedures and Surgical History Includes: Procedures from this encounter Procedures Code Diagnosis Performing Provider Service L ocation Service Date use of tobacco assessment performed 1000F Last Documented On 2 1:01PM ; [facility], [facility] Medical History Includes: Medical History addressed during this encounter Description Last Updated Anemia 01/12/2021 Last Documented On 2 1:01PM ; [facility] Arthritis 01/12/2021 Last Documented On 2 1:01PM ; [facility], [facility] History of diabetes mellitus 01/12/2021 Last Documented On 2 1:01PM ; [facility], [facility] History of diverticulitis of colon 01/12 Last Documented On 2 1:01PM ; [facility] History of Gallbladder 01/12/2021 Last Documented On 2 1:01PM ; [facility] History of heart disease 01/12/2021 Last Documented On 2 1:01PM ; [facility] History of Rheumatology 01/12/2021 Last Documented On 2 1:01PM ; [facility] Hypertension 01/12/2021 Last Documented On 2 1:01PM ; [facility], [facility] Past Surgical History: RTC RT ~PKR LT ~H ernia 01/12/2021 Last Documented On 2 1:01PM ; [facility] Sleep Apnea 01/12/2021 Last Documented On 2 1:01PM ; [facility] Total knee arthroplasty 01/12/2021 Last Documented On 2 1:01PM ; [facility] Recent immunization for flu 2019 021 Last Documented On 2 1:01PM ; [facility] Recent immunization for pneumococcal pne umonia 201901/12/2021 Last Documented On 2 1:01PM ; [facility] Family History Includes: Family History addressed during this encounter Description Last Updated Diabetes mellitus 01/12/2021 Last Documented On 2 1:01PM ; [facility] Family history of cancer 01/12/2021 Last Documented On 2 1:01PM ; [facility] Family history of heart disease 01/13/20 21 Last Documented On 2 1:01PM ; [facility] Family history of hypertension 1 Last Documented On 2 1:01PM ; [facility] Family history of osteoporosis 1 Last Documented On 2 1:01PM ; [facility] Review of Systems Includes: Review [...] Documented On 2 1:07PM ; [facility] Encounters Encounter Provider Location Date Check-In Time Check- Out Time Diagnosis Follow [facility] 2 12:33PM 1:26PM Insurance Includes: Active Insurance Policies Plan Name Member ID Group # Subscriber Relationship Effect jim Dates 1 - [facility] [id number] [place] Alford III Self Clinical Notes Includes: Clinical Notes from this encounter No Clinical Notes Recorded
--- OUTSIDE RECORDS SUMMARY | 2024-07-08 10:38 | XMS_ITS | Clinical Summary ---
Author Organization [facility] Address [address] [place] [address] Phone Care Team Providers Care Day Spa Manager Name Role Phone Raj VERGARA Anthonybelia Primary Care Provider [phone] Minnie VILLALOBOS, Danish Maurer [phone] Reason for Visit and Chief Complaint The Chief Complaint is: RT TKA Problems Includes: Problems addressed during this encounter and other active Problems All Visits Onset Date Resolved Date Provider Condition S tatus Joint Pain in the Right Knee 10/06/2020 Danish Hartman MD Active Last Documented On 1 3:35PM ; [facility] Joint Pain, Localized in the Left Shoulder 10/08/2018 Ravi Kruse MD Active Last Documented On 9 8:56AM ; [facility] Plan of Treatment patient was seen by myself Baldemar Mota PA-C. Patient will follow up right now as needed he was told to follow-up every 3 to 4 years after this just for an x-ray to see how the implant looks on x-ray. - Last Documented On 01/05/2022 1:30PM ; [facility] Instructions to patient Lose weight Last Documented On 2 1:04PM ; [facility] Assessments Includes: Assessments from this encounter Findings Right total knee replacement December 23, 2020 - Last Documented On 01/05/2022 1:30PM ; [facility] Instructions Includes: Instructions from this encounter Instructions to patient Lose weight Last Documented On 2 1:04PM ; [facility] Medical Equipment - Implanted Devices Includes: Current Devices No Medical Equipment Recorded Medications Includes: Medications discussed during this encounter and other current Medications Current Medications (continue as prescribed) Plavix 75 MG Oral Tablet 03/29/2021 Provider: Diagnosis: Last Documented On 2 10:05AM By Nataliia Lockwood ; [facility], [facility] Actos 15 MG Oral Tablet 01/12/2021 Provider: Diagnosis: Last Documented On 1 1:52PM By Aileen Perez ; [facility] Past Medications on file oxyCODONE HCl 5 MG Oral Tablet 03/12/2021 - 03/16/2021 Provider: Danish Hartman MD Diagnosis: 1 tablet by mouth every 4 hours for post op pain Last Documented On 1 11:56AM By Danish Hartman ; [facility] Ultram 50 MG Oral Tablet 03/12/2021 - 03/22/2021 Provi cleo: Danish Hartman MD Diagnosis: 1-2 tablets by mouth every 4-6hrs for post op pa in Last Documented On 1 12:11PM By Danish Hartman ; [facility] oxyCODONE HCl 5 MG Oral Tablet 01/14/2021 - 01/19/2021 Provider: Danish Hartman MD Diagnosis: take 1-2 tablets every 4-6hrs for post op pain Last Documented On 1 4:49PM By Danish Hartman ; [facility] oxyCODONE HCl 5 MG Oral Tablet 01/12/2021 - 01/17/2021 Provider: Danish Hartman MD Diagnosis: take 1-2 tablets every 4-6hrs for post op pain Last Documented On 1 10:46AM By Danish Hartman ; [facility] Losartan Potassium 50 MG Oral Tablet 01/12/2021 - 03/27 Provider: Diagnosis: Last Documented On 1 1:51PM By Aileen [facility] Mobic 15 MG Oral Tablet 12/22/2020 - 01/21/2021 Provid er: Danish Hartman MD Diagnosis: 1 every bedtime Last Documented On 1 3:29PM By Danish Hartman ; [facility] Acetaminophen 500 MG Oral Tablet 12/22/2020 - 01/22/20 Provider: Danish Hartman MD Diagnosis: take 2 tablets 3 times daily, AFTER SURGERY Last Documented On 1 3:28PM By Danish Hartman ; [facility], [facility] Colace 100 MG Oral Capsule 12/22/2020 - 01/21/2021 Pro vider: Danish Hartman MD Diagnosis: 1-2 tablets daily, as needed, AFTER SURGERY Last Documented On 1 3:28PM By Danish Hartman ; [facility], [facility] Doxycycline Hyclate 100 MG O ral Capsule 12/22/2020 - 12/25/2020 Provider: Danish Hartman MD Diagnosis: twice a day Last Documented On 1 3:27PM By Danish Hartman ; [facility], [facility] Aspirin Adult Low Strength 8 1 MG Oral Tablet Delayed Release 12/22/2020 - 02/05/2021 Provider: Danish Hartman MD Diagnosis: twice a day Last Documented On 1 3:26PM By Danish Hartman ; [facility], [facility] Zofran 4 MG Oral Tablet 12/22/2020 - 01/21/2021 Provid er: Danish Hartman MD Diagnosis: 1 po q 6 to 8 hrs prn pain t alex 1 tablet every 6-8hrs for nausea, AFTER SURGERY Last Documented On 1 3:26PM By Danish Hartman ; [facility], [facility] Ultram 50 MG Oral Tablet 12/22/2020 - 01/01/2021 Provi cleo: Danish Hartman MD Diagnosis: 1-2 p o q 6-8h take 1-2 tabl ets every 6-8 hours for breakthrough post op pain Last Documented On 1 3:35PM By Danish Hartman ; [facility], [facility] oxyCODONE HCl 5 MG Oral Tablet 12/22/2020 - 12/27/2020 Provider: Danish Hartman MD Diagnosis: take 1-2 tablets every 4-6hrs for post op pain Last Documented On 1 3:35PM By Danish Hartman ; [facility], [facility] oxyCODONE HCl 5 MG Oral Tablet [...] Vital Signs from this encounter Vital Name 01/05/2022 01:04P Blood Pressure Sitting (mmHg) 127/76 Pulse Rate-Sitting (bpm) 82 Height (in) 69 Weight (lb) 215 Body Mass Index (kg/m2) 31.7 Body Surface Area (m2) 2.1 Last Documented: On 01/05/2022 1:07PM ; [facility] Results Includes: Results discussed during this encounter No Results Recorded For Specified Dates History of Present Illness Includes: History of Present Illness from this encounter ABEL Alford III is a 71 year old male. - Allergy list reviewed - Problem list reviewed - Medication reconciliation performed - Medication list reviewed - Medication list reviewed with patient Follow-up on his right total knee the original knee replacement was done December 23, 2020 he then subsequently had a manipulation a couple months later in February. But overall at this point time he said he is not having any pain with the knee he is happy did the procedure he just has some stiffness with both his knees overall. has been able to kneel on his knee and he has been working with no problems. He states his biggest complaint still is just the lymphedema that he has had which has been a chronic thing for him Social History Description Last Updated Working part-time 03/29/2021 Last Documented On 2 1:03PM ; [facility] Caffeine use 01/12/2021 Last Documented On 2 1:03PM ; [facility] No recent change in diet 01/12/2021 Last Documented On 2 1:03PM ; [facility] Not a current smoker. 01/12/2021 Last Documented On 2 1:03PM ; [facility] Not exercising regularly 01/12/2021 Last Documented On 2 1:03PM ; [facility] Not using drugs 01/12/2021 Last Documented On 2 1:03PM ; [facility] Non-smoker 10/06/2020 Last Documented On 2 1:03PM ; [facility] No tobacco use 10/08/2018 Last Documented On 2 1:03PM ; [facility] Smoking status : Never smoker 10/08/2018 Last Documented On 2 1:03PM ; [facility] Procedures and Surgical History Includes: Procedures from this encounter Procedures Code Diagnosis Performing Provider Service L ocation Service Date use of tobacco assessment performed 1000F Last Documented On 2 1:04PM ; [facility] Medical History Includes: Medical History addressed during this encounter Description Last Updated Anemia 01/12/2021 Last Documented On 2 1:03PM ; [facility] Arthritis 01/12/2021 Last Documented On 2 1:03PM ; [facility] History of diabetes mellitus 01/12/2021 Last Documented On 2 1:03PM ; [facility] History of diverticulitis of colon 01/12 Last Documented On 2 1:03PM ; [facility] History of Gallbladder 01/12/2021 Last Documented On 2 1:03PM ; [facility] History of heart disease 01/12/2021 Last Documented On 2 1:03PM ; [facility] History of Rheumatology 01/12/2021 Last Documented On 2 1:03PM ; [facility] Hypertension 01/12/2021 Last Documented On 2 1:03PM ; [facility] Past Surgical History: RTC RT ~PKR LT ~H ernia 01/12/2021 Last Documented On 2 1:03PM ; [facility] Sleep Apnea 01/12/2021 Last Documented On 2 1:03PM ; [facility] Total knee arthroplasty 01/12/2021 Last Documented On 2 1:03PM ; [facility] Recent immunization for flu 2020 021 Last Documented On 2 1:03PM ; [facility] Recent immunization for pneumococcal pne umonia 2020 01/12/2021 Last Documented On 2 1:03PM ; [facility] Family History Includes: Family History addressed during this encounter Description Last Updated Diabetes mellitus 01/12/2021 Last Documented On 2 1:03PM ; [facility] Family history of cancer 01/12/2021 Last Documented On 2 1:03PM ; [facility], [facility] Family history of heart disease 01/13/20 21 Last Documented On 2 1:03PM ; [facility] Family history of hypertension 1 Last Documented On 2 1:03PM ; [facility] Family history of osteoporosis Last Documented On 2 1:03PM ; [facility] Review of Systems Includes: Review of [...] Active Last Documented On 2 1:07PM ; [facility] Encounters Encounter Provider Location Date Check-In Time Check- Out Time Diagnosis Follow Up Baldemra Mota PA-C [facility] 2 12:52PM 1:30PM Insurance Includes: Active Insurance Policies Plan Name Member ID Group # Subscriber Relationship Effect jim Dates 1 - [facility] [id number] Vida Alford III Self Clinical Notes Includes: Clinical Notes from this encounter No Clinical Notes Recorded
[2024-07-08 10:50] LABS: Basophils % 0.3 % (0.1-2.0); Eosinophils # 0.1 K/mm3 (0.0-0.4); Eosinophils % 1.1 % (0.1-12.0); Hematocrit 43.9 % (42.0-52.0); Hemoglobin 14.2 g/dL (14.1-18.0); Lymphocytes # 0.9 K/mm3 (0.7-4.5); Lymphocytes % 14.1 % (10-50); Mean Corpuscular HGB Conc 32.3 g/dL (31.8-35.4); Mean Corpuscular Hemoglobin 26.7 pg (27.0-31.2); Mean Corpuscular Volume 82.7 fl (80-94); Mean Platelet Volume 10.4 fl (7.4-10.4); Monocytes # 0.5 K/mm3 (0.1-1.0); Monocytes % 7.8 % (1.7-9.3); Neutrophils # 4.8 K/mm3 (1.8-7.8); Neutrophils % 76.2 % (37.0-80.0); Nucleated Red Blood Cells # 0 10^3/uL; Nucleated Red Blood Cells % 0 %; Platelet Count 195 K/mm3 (142-424); Red Blood Count 5.31 M/mm3 (4.60-6.20); Red Cell Distribution Width 14.2 % (11.5-17.5); Red Cell Distribution Width-SD 42.1 fL; White Blood Count 6.3 K/mm3 (4.8-10.8)
[2024-07-08 11:30] LABS: Erythrocyte Sedimentation Rate 66 mm/hr (0-20)
[2024-07-08 12:04] LABS: Alanine Aminotransferase 43 U/L (12-78); Albumin Level 3.8 g/dl (3.5-5.0); Albumin/Globulin Ratio 1.3 (1.1-1.8); Alkaline Phosphatase 83 U/L (38-126); Anion Gap 15.3 mEq/L (5-15); Aspartate Amino Transferase 54 U/L (17-59); Bilirubin,Total 1.4 mg/dl (0.2-1.3); Blood Urea Nitrogen 13 mg/dl (9-20); Calcium 8.9 mg/dl (8.4-10.2); Carbon Dioxide 29 mmol/L (22.0-30.0); Chloride 100 mmol/L (98-107); Estimated Glomerular Filt Rate 66 ml/min (>60); GFR (African American) 80 ML/MIN (>60); Globulin 2.9 g/dL (1.3-3.2); Glucose 143 mg/dl (74-100); Potassium 4.3 mmoL/L (3.5-5.1); Sodium 140 mmol/L (136-145); Total Protein,Serum 6.7 g/dl (6.3-8.2); Uric Acid 3.7 mg/dl (3.5-8.5)
[2024-07-08 12:09] LABS: C-Reactive Protein 1.4 mg/L (0-4)
== END 2024-07-08 23:59 | disposition home or self-care (01) ==
LOC: LAB 10:36
PROVIDERS: PCP Family Medicine; Visit Provider Nurse Practitioner
DX: M79.671 Pain in right foot (principal); M79.672 Pain in left foot
CPT/HCPCS: 36415; 80053; 84550; 85025; 85651; 86140

== ENCOUNTER 2024-07-23 19:06 | Inpatient (IN) | payer MEDICARE, SELFPAY ==
[2024-07-23] VITALS (8 sets, daily range): BP systolic 104–138; BP diastolic 50–75; PULSE 87–135; RESP 14–20; TEMP 36.9–38.9; O2SAT 95–100; BMI 29.9; BMI 30.9
--- NOTE | 2024-07-23 19:13 | HMH.EDGENADL ---
Discharge Plan Disposition Patient Disposition: Admitted Clinical Impressions Clinical Impression: Sepsis, AMS (altered mental status), Cellulitis Discharge ED Provider: Blair Duffy General Adult HPI General Chief complaint: Altered Mental Status Stated complaint: V/D,confused,unable to walk Time Seen by Provider: 07/23/24 19:11 Mode of Arrival: Ambulatory Source of Information: Patient and Spouse Limitations: Altered Mental Status History of Present Illness HPI narrative: This is a 74-year-old male with a past medical history of atrial flutter on Xarelto, latent tuberculosis, rheumatoid arthritis, CAD, peripheral arterial disease, diabetes, lymphedema who presents with altered mental status. History is provided by his . States that she came home from work today and he was very confused, not making any sense, lying in his own vomit and diarrhea. Did not note any blood in the vomit or diarrhea. States that he was acting himself yesterday. Also reports subjective fever. States that he is having redness of his right lower extremity extending up to his knee. Has had lymphedema for a long time however never any redness like this. States that he has had a UTI in the past and had similar confusion. Related Data Home Medications ?Medication ?Instructions ?Recorded ?Confirmed albuterol sulfate 90 mcg/actuation 2 puff inhalation Q6HP PRN short 03/05/24 07/08/24 aerosol inhaler of breath furosemide 20 mg tablet 20 mg PO DAILY 03/05/24 07/08/24 rivaroxaban 15 mg tablet (Xarelto) 15 mg PO DAILY 03/05/24 07/08/24 tamsulosin 0.4 mg capsule 0.4 mg PO DAILY 03/05/24 07/08/24 tramadol 50 mg tablet 50 mg PO TID 03/15/24 07/08/24 Previous Rx's ?Medication ?Instructions ?Recorded metformin 1,000 mg tablet 1,000 mg PO BID #60 tabs 05/29/24 doxycycline hyclate 100 mg capsule 100 mg PO BID infection 14 days 06/10/24 #28 caps atorvastatin 40 mg tablet 40 mg PO HS 30 days #90 tabs 06/25/24 metoprolol succinate 25 mg 25 mg PO DAILY 30 days #90 tabs 06/25/24 tablet,extended release 24 hr tirzepatide 5 mg/0.5 mL 5 mg (0.5 mL) SQ WEEKLY 90 days 06/28/24 subcutaneous pen injector #6.5 mL (Mckayla) diclofenac sodium 1 % topical gel 4 g topical QID PRN pain 30 days 07/08/24 #100 grams doxycycline hyclate 100 mg capsule 100 mg PO BID infection 10 days 07/08/24 #20 caps lidocaine 5 % topical ointment 1 applic topical BID PRN pain #50 07/08/24 grams omeprazole 40 mg capsule,delayed 40 mg PO DAILY GERD 90 days #90 07/16/24 release caps clopidogrel 75 mg tablet See Rx Instructions .Route 07/22/24 .COMPLEX #30 tabs Allergies Allergy/AdvReac Type Severity Reaction Status Date / Time Penicillins (PENICILLINS) Allergy Unknown I-ITCHING Verified 07/08/24 14:38 [facility] Disclaimer: The information contained in this section may have been updated after the patient was seen, as this information can be updated by other users. Medical History Vocal cord edema Ringing in right ear Chronic hoarseness Globus sensation Vertigo Recurrent vertigo upon turning head toward the left associated with tinnitus. Diverticulitis IBS (irritable bowel syndrome) Latent tuberculosis Rheumatoid arthritis Viral gastroenteritis Laceration of face Patient is not currently bleeding Atypical angina NSTEMI (non-ST elevated myocardial infarction) Atrial flutter On Xarelto Asbestos exposure Tachycardia Abnormal ECG Preoperative testing Episodic confusion He was referred to epilepsy program, EMU but has decided to cancel the appointment Allergic rhinitis Dyspnea on exertion Latent tuberculosis by blood test Seen by pulmonology at [facility] and prescribed INH, RFP, B6 but he never took the medicine as prescribed Restrictive lung disease Left sided abdominal pain Left shoulder strain Left groin pain Claustrophobia Chronic cough Cognitive complaints 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, word finding difficulty Edema of both lower extremities Decreased pedal pulses Non-healing ulcer of foot Right 3rd distal tip DFU Decreased ROM of right shoulder Right shoulder pain Right shoulder injury Pes planus of both feet Skin lesion Impotence Low back pain Left against medical advice Memory loss Chronic SI joint pain Radiculopathy Neuropathic pain Leg pain, posterior Kidney stone Ingrown toenail of right foot Pre-ulcerative calluses Splinter of toe of left foot Pain of left great toe Cellulitis of great toe of right foot Acute bacterial bronchitis Incurved toenail Diabetes mellitus HA1c- 7.3% 06/06/24 Onychomycosis Pain in both feet Callus of foot Diabetic foot ulcer Acute febrile illness SIRS (systemic inflammatory response syndrome) Left against medical advice Lower extremity edema Epistaxis Encounter for pre-operative cardiovascular clearance Sepsis Urinary incontinence Weakness Cellulitis, leg Obesity (BMI 30-39.9) Acute delirium Cellulitis Severe sepsis SIRS (systemic inflammatory response syndrome) Physical deconditioning Bacterial pneumonia Hypokalemia Bronchitis due to COVID-19 virus Pneumonia due to COVID-19 virus COVID-19 virus infection Exposure to COVID-19 virus Viral syndrome Acute bronchitis Hematuria Kidney stone on right side Multiple renal cysts Cough Diastolic dysfunction Mental status change resolved HTN (hypertension) Dyspnea SOB (shortness of breath) HHD (hypertensive heart disease) Pre-op evaluation Microalbuminuria Enlarged prostate History of IBS Diabetes Acquired lymphedema Surgical History History of cardiac cath History of total right knee replacement History of rotator cuff surgery History of coronary artery stent placement History of cholecystectomy Hx of total knee arthroplasty Family History Other Cancer Cerebral palsy Dementia Diabetes Social History Smoking Status: Never smoker alcohol intake: never counseling provided: none substance use type: denies use current occupational status: employed and retired Travel in the last 8 weeks?: None household members: spouse housing: house caffeine: Yes Have you lived/traveled outside [place] in past 30 days?: No Contact w/someone who lives/traveled outside [place] past 30 days?: No Exposure to someone with infectious disease in past 14 days?: No Do you have a fever (greater than 100.4 F or 38 C)?: No Have you tested positive for COVID-19?: No Exposed to someone with COVID-19 in past 14 days?: No Do you have a sore throat?: No Do you have a cough?: No Do you have any weakness?: No Do you have any diarrhea?: No Are you experiencing any unusual bleeding?: No Do you have any muscle aches/pain?: No Do you have any abdominal pain?: No Are you experiencing loss of taste or smell?: No Other Medical History Have you received the Flu Vaccine for this season: No Have you received the Pneumonia Vaccine: No ROS Obtained: Yes unobtainable due to mental condition Physical Exam General General appearance: alert Comment: Ill-appearing, no acute distress Head Head exam: atraumatic Eye Eye exam: Present normal appearance, PERRL and EOMI Neck Neck exam: Present normal inspection and full ROM Chest Chest inspection: Present symmetric chest wall rise Respiratory Respiratory exam: Present normal lung sounds bilaterally; Absent respiratory distress Cardiovascular Cardiovascular exam: Present regular rate and normal rhythm Abdominal Exam Abdominal exam: Present soft; Absent distention, tenderness, guarding or rebound Extremities Exam Extremities exam: Present other (RLE: Erythema, warmth, and tenderness of the diffuse right lower leg extending up to the knee. Well-demarcated. 2+ DP pulse. Lymphedema present.) Neurological Exam Neurological exam: Present alert and other (GCS 14) Skin Skin exam: Present warm and dry Medical Decision Making Medical Records Medical records reviewed: Yes I reviewed the patient's medical records. Screening: Per USPSTF and CDC recommendations, given the prevalence of disease in our region, it is our hospital?s policy to screen for HIV and viral Hepatitis for all patients aged 18 and over and those with ongoing risk factors. MR Comment: Echocardiogram performed on 01/23/2024 notable for normal LVEF at 55%. Normal biventricular systolic function. Jevon Inquiry Pt receiving controlled substance: No Vital Signs: 07/23/24 19:17 07/23/24 19:37 Temperature 98.4 F Temperature Source Temporal Artery Scan Pulse Rate 129 H Pulse Rate [Right] 135 H Respiratory Rate 20 Blood Pressure 108/64 L Blood Pressure [Right Arm] 104/75 L Blood Pressure Mean [Right Arm] 84 02 Sat by Pulse Oximetry 100 95 Oxygen Delivery Method Room Air Lab Data Lab Results 07/23/24 19:30: POC Glucose 160 H 07/23/24 19:37: WBC 23.2 H*, RBC 5.28, Hgb 14.1, Hct 42.2, MCV 79.9 L, MCH 26.7 L, MCHC 33.4, RDW 14.6, Plt Count 207, MPV 10.4, Neut % (Auto) 93.0 H, Lymph % (Auto) 2.9 L, Thomas % (Auto) 2.8, Eos % (Auto) 0.0 L, Baso % (Auto) 0.3, Neut # (Auto) 21.6 H, Lymph # (Auto) 0.7, Thomas # (Auto) 0.6, Eos # (Auto) 0.0, Baso # (Auto) 0.1, Total Counted 100, Neutrophils % (Manual) 95 H, Lymphocytes % (Manual) 5 L, Platelet Estimate Normal, RBC Morphology Normal, Sodium 137, Potassium 4.5, Chloride 104, Carbon Dioxide 19 L, Anion Gap 18.5 H, BUN 21 H, Creatinine 1.70 H, Estimated Creat Clear 51, Estimated GFR 40 L, Est GFR ( Amer) 48 L, Glucose 167 H, Calcium 9.3, Total Bilirubin 2.9 H, AST 43, ALT 36, Alkaline Phosphatase 91, Troponin I 1.02 H, NT-Pro-B Natriuret Pep 746 H, Total Protein 7.1, Albumin 4.2, Globulin 2.9, Albumin/Globulin Ratio 1.4, Lipase 50 07/23/24 19:42: VBG pH 7.45 H, VBG pCO2 27.3 L, VBG pO2 25.8 L, VBG HCO3 18.7 L, VBG Total CO2 19.5 L, VBG O2 Saturation 51.7, VBG Base Excess -5.3 L, VBG Lactic Acid 3.7 H 07/23/24 19:46: SARS-CoV-2 (PCR) Not detected, Influenza A Untype (PCR) Not detected, Influenza Type B (PCR) Not detected 07/23/24 19:37 07/23/24 19:37 Orders (Tests/Meds): ED MEDICATIONS Generic Name Dose Route Start Last Admin Trade Name Freq PRN Reason Stop Dose Admin Acetaminophen 1,000 mg 07/23/24 20:57 Acetaminophen 500mg Tab PO 07/23/24 20:58 ONCE ONE Ceftriaxone Sodium 2 gm/ 100 mls @ 200 mls/hr 07/23/24 19:30 07/23/24 19:44 Sodium Chloride IV 08/02/24 19:29 200 mls/hr Q24H SWATHI Administration Vancomycin/PEG/NADA/Lysine/Water 1.75 gm in 350 mls @ 175 mls/hr 07/23/24 19:30 07/23/24 19:44 Vancomycin 1.75gm/350ml (Peg) Premix IV 07/23/24 21:29 175 mls/hr ONCE ONE Administration Lactated Ringer's 1,000 mls @ 999 mls/hr 07/23/24 20:54 Lactated Ringer's 1000 Ml Bag IV 07/23/24 21:54 .Q1H1M ONE Miscellaneous 1 each 07/23/24 19:30 07/23/24 19:47 Vancomycin Consult Request NOTAPPLIC 08/22/24 19:29 1 each CONSULT PHARMACY SWATHI Administration Sodium Chloride 10 ml 07/23/24 20:48 07/23/24 20:49 Sodium Chloride 0.9% 10ml Syr (Rad Only) IV 08/22/24 20:47 10 ml NEEDED PRN Administration Maintain IV Site Discontinued Medications Generic Name Dose Route Start Last Admin Trade Name Freq PRN Reason Stop Dose Admin Lactated Ringer's 1,000 mls @ 999 mls/hr 07/23/24 19:18 07/23/24 19:44 Lactated Ringer's 1000 Ml Bag IV 07/23/24 20:18 999 mls/hr .Q1H1M ONE Administration Lactated Ringer's 1,000 mls @ 999 mls/hr 07/23/24 19:56 07/23/24 20:05 Lactated Ringer's 1000 Ml Bag IV 07/23/24 20:56 999 mls/hr .Q1H1M ONE Administration Iopamidol 70 ml 07/23/24 20:48 07/23/24 20:49 Iopamidol-370 (76%);100ml Bottle IV 07/23/24 20:49 70 ml ONCE ONE Administration Sodium Chloride 50 ml 07/23/24 20:48 07/23/24 20:49 0.9 % Sodium Chloride 50 Ml Vial IV 07/23/24 20:49 50 ml ONCE ONE Administration ORDERS Category Date Time Status CT abdomen pelvis w con Stat Cat Scan 07/23/24 19:[address] head/brain wo con Stat Cat Scan 07/23/24 19:19 Taken CTA Chest [CT angio chest PE protocol] Stat Cat Scan 07/23/24 19:18 Taken Chest XR -- portable [XR chest portable] Stat Exams 07/23/24 19:19 Taken POCUS Point of Care (ER Only) Stat Exams 07/23/24 20:19 Ordered BNP [NT Pro Brain Natriuretic Pep.] Stat Lab 07/23/24 19:37 Completed CBC w/Auto Diff [Complete Blood Count Auto Diff] Stat Lab 07/23/24 19:37 Completed CMP [Comprehensive Metabolic Panel] Stat Lab 07/23/24 19:37 Completed Lipase Stat Lab 07/23/24 19:37 Completed POC Glucose,Bedside Routine Lab 07/23/24 19:30 Completed Procalcitonin Stat Lab 07/23/24 19:37 Received Rapid PCR Covid and Flu A/B Stat Lab 07/23/24 19:46 Completed Troponin I Q3H Lab 07/23/24 22:30 Ordered Troponin I Q3H Lab 07/24/24 01:30 Ordered Troponin I Stat Lab 07/23/24 19:37 Completed Urinalysis and Microscopic Stat Lab 07/23/24 19:20 Ordered Blood Culture Stat Micro 07/23/24 19:46 Received VBG [Venous Blood Gas] Stat RT 07/23/24 19:42 Completed ECG Data Tracing #1: I reviewed this ECG and interpreted as documented below: Sinus tachycardia at a rate of 133, QTc 372, normal axis, subtle ST elevation in aVR with subtle diffuse ST segment depression Medical Decision Narrative: In summary, this 74-year-old man with a history of atrial flutter on Xarelto, latent tuberculosis, rheumatoid arthritis, CAD, peripheral arterial disease, diabetes, lymphedema presents to the emergency department today with altered mental status. On initial evaluation patient is tachycardic to 133, normotensive, afebrile, GCS of 14 due to confusion. Differential diagnosis includes but is not limited to sepsis, UTI, cellulitis, pneumonia, gastroenteritis, hypovolemia. Based on these concerns, I ordered CBC, CMP, lipase, VBG, troponin, BNP, blood cultures x 2, urinalysis, chest x-ray, CT head, CT PE, CT abdomen pelvis with IV contrast. ECG personally interpreted as noted above. Patient received 2 L of lactated Ringer's (patient had no clinical evidence of fluid overload and an unremarkable recent echocardiogram as described above), vancomycin, and ceftriaxone for broad-spectrum coverage of presumed sepsis with likely source right lower extremity cellulitis. Labs personally reviewed demonstrate leukocytosis with white blood cell count of 23.2 with neutrophilic predominance at 93%, lactate of 3.7, anion gap of 18.5, GUILLERMO with a creatinine of 1.70 from a baseline of 1.1, troponin of 1.02, BNP of 746. Repeat EKG was obtained after getting the troponin of 1.02, independently interpreted by me revealing of sinus tachycardia at a rate of 126, diffuse ST segment depression with ST elevation in aVR. This is most likely consistent with global ischemia in the setting of patient's sepsis. Likely representing a type II NSTEMI, however consulted cardiology for evaluation of EKG as well. Cardiology was Reassured after reviewing patient's EKG and did not feel that this represented an acute myocardial occlusion. Recommended continuing to resuscitate the patient and treat with IV antibiotics. XR personally interpreted demonstrates no clear lobar pneumonia. CT imaging personally interpreted demonstrates no acute intracranial pathology or airspace opacity concerning for pneumonia. No acute intra-abdominal pathology. Patient had a downward trending blood pressure with SBP in the 90s, MAP greater than 65 however remained tachycardic despite IV fluid resuscitation. Pressure bag the rest of IV fluids and for total of 2 L and performed a [id number] ultrasound revealing of hyperdynamic myocardium as well as very collapsible IVC. Ordered an additional 1 L of lactated Ringer's to be pressure bagged at this time. Patient had already received broad-spectrum coverage and blood cultures were obtained on arrival. Consulted hospital medicine for admission and patient was ultimately admitted to their service. Procedures Miscellaneous Procedure Procedure Performed: Cardiac US Limited Cardiac Ultrasound Indication: Hypotension Identified cardiac views: -Cardiac parasternal long axis -Cardiac parasternal short axis -Cardiac apical four-chamber -Cardiac subxiphoid Findings: -Hyperdynamic myocardium. No cardial effusion. Normal LVEF grossly. Impression: - From above Images were saved saved to permanent archive The study was technically adequate CPT: 44785 This study was performed by mo, and I personally interpreted all images/videos. Based on my clinical judgement, these images were adequate/inadequate and did not necessitate further imaging. IVC US Limited IVC Ultrasound Indication: Hypotension views: IVC Findings: - Highly collapsible IVC Impression: - From above Images were saved saved to permanent archive The study was technically adequate CPT: 58196 This study was performed by mo, and I personally interpreted all images/videos. Based on my clinical judgement, these images were adequate/inadequate and did not necessitate further imaging. Critical Care Critical Care Time Critical Care Time: Yes Attestation: On 07/23/24, the high probability of a clinically significant, sudden or life threatening deterioration of the following system(s) required my full and direct attention, intervention and personal management. The time I documented below is in addition to time spent performing reported procedures but includes the following listed in this critical care notation. Total Time Total Critical Care Time: 45
--- NOTE | 2024-07-23 19:18 | CT_ITS ---
PROCEDURE INFORMATION: Exam: CTA Chest With Contrast Exam date and time: 07/23/2024 8:36 PM Age: 74 years old Clinical indication: Other: Eval pe/pna TECHNIQUE: Imaging protocol: Computed tomographic angiography of the chest with contrast. Exam focused on the arteries. 3D rendering (Not supervised by radiologist): MIP and/or 3D reconstructed images were created by the technologist. Radiation optimization: All CT scans at this facility use at least one of these dose optimization techniques: automated exposure control; mA and/or kV adjustment per patient size (includes targeted exams where dose is matched to clinical indication); or iterative reconstruction. Contrast material: ISOVUE; Contrast volume: 70 ml; Contrast route: INTRAVENOUS (IV); COMPARISON: CT ANGIO CHEST 03/09/2020 2:36 PM FINDINGS: Pulmonary arteries: Normal. No pulmonary emboli. Aorta: Unremarkable. No aortic aneurysm. No aortic dissection. Lungs: Scattered atelectasis bilaterally. No consolidation. No masses. Pleural spaces: Unremarkable. No pneumothorax. No pleural effusion. Heart: Unremarkable. No cardiomegaly. No pericardial effusion. Lymph nodes: Unremarkable. No enlarged lymph nodes. Bones/joints: Unremarkable. No acute fracture. Soft tissues: Unremarkable. IMPRESSION: No acute findings.
--- NOTE | 2024-07-23 19:18 | CT_ITS ---
PROCEDURE INFORMATION: Exam: CT Abdomen And Pelvis With Contrast Exam date and time: 07/23/2024 8:36 PM Age: 74 years old Clinical indication: Abdominal pain; Additional info: Abd pain, diarrhea TECHNIQUE: Imaging protocol: Computed tomography of the abdomen and pelvis with contrast. 3D rendering (Not supervised by radiologist): MIP and/or 3D reconstructed images were created by the technologist. Radiation optimization: All CT scans at this facility use at least one of these dose optimization techniques: automated exposure control; mA and/or kV adjustment per patient size (includes targeted exams where dose is matched to clinical indication); or iterative reconstruction. Contrast material: ISOVUE; Contrast volume: 70 ml; Contrast route: IV; COMPARISON: CT ANGIO ABDOMEN PELVIS 09/06/2023 10:43 AM FINDINGS: Liver: Fatty liver and hepatomegaly Gallbladder and biliary ducts: Cholecystectomy Pancreas: Normal. No ductal dilation. Spleen: Normal. No splenomegaly. Adrenal glands: Normal. No mass. Kidneys and ureters: Multiple simple stable and complex/hemorrhagic stable bilateral renal cysts . Punctate non-obstructing right renal stones. No hydronephrosis Stomach and bowel: Mild low-grade colitis in the descending and rectosigmoid colon not excluded. No small bowel obstruction. Appendix: No evidence of appendicitis. Intraperitoneal space: Unremarkable. No free air. No significant fluid collection. Vasculature: Unremarkable. No abdominal aortic aneurysm. Lymph nodes: Unremarkable. No enlarged lymph nodes. Urinary bladder: Unremarkable as visualized. Reproductive: Unremarkable as visualized. Bones/joints: Severe degenerative changes in the lumbar spine with multilevel disc height narrowing, endplate sclerosis and vacuum phenomenon and facet joint arthropathy. Soft tissues: Small bilateral inguinal hernias with fat IMPRESSION: Mild low-grade colitis in the descending and rectosigmoid colons not excluded. No additional acute findings in the abdomen pelvis
--- OUTSIDE RECORDS SUMMARY | 2024-07-23 19:18 | XMS_ITS ---
Author Organization [facility] Address [address] [place] [address] Phone Care Team Providers Care Cad Developer Name Role Phone Jonah Anthony APRN Primary Care Provider [phone] Minnie VILLALOBOS, Danish Maurer [phone] Reason for Referral Date Encounter Description Provider [...] Documented On 2 1:04PM ; [facility] Lose weight Last Documented On 2 1:01PM ; [facility] Lose weight Last Documented On 2 10:06AM ; [facility] Instructions for patient see pcp for bp Last Documented On 0 9:43AM ; [facility] Instructions for patient see pcp for bp Last Documented On 9 9:35AM ; [facility] Instructions for patient see pcp for bp Last Documented On 9 9:19AM ; [facility] Assessments Includes: Assessments for all patient encounters No Assessments Recorded Instructions Includes: Instructions for all patient encounters Instructions to patient Lose weight Last Documented On 2 1:04PM ; [facility] Lose weight Last [...] Last Documented On 9 9:19AM ; [facility], [facility] Medical Equipment - Implanted Devices Includes: Current and historical Devices No Medical Equipment Recorded Medications Includes: Current and historical Medications Current Medications (continue as prescribed) Plavix 75 MG Oral Tablet 03/29/2021 Provider: Diagnosis: Last Documented On 2 10:05AM By Nataliia Lockwood ; [facility] Actos 15 MG Oral Tablet 01/12/2021 Provider: Diagnosis: Last Documented On 1 1:52PM By [facility]ileen [facility] Past Medications on file oxyCODONE HCl 5 MG Oral Tablet 03/12/2021 - 03/16/2021 Provider: Danish Hartman MD Diagnosis: 1 tablet by mouth every 4 hours for post op pain Last Documented On 1 11:56AM By Danish [facility], [facility] Ultram 50 MG Oral Tablet 03/12/2021 - 03/22/2021 Provi cleo: Danish Hartman MD Diagnosis: 1-2 tablets by mouth every 4-6hrs for post op pa in Last Documented On 1 12:11PM By Danish Hartman ; [facility] Zofran 4 MG Oral Tablet 03/12/2021 - 03/29/2021 Provid er: Danish Hartman MD Diagnosis: 1 po q 6 to 8 hrs prn pain t alex 1 tablet every 6-8hrs for nausea, AFTER SURGERY Last Documented On 2 10:05AM By Nataliia Lockwood ; [facility] oxyCODONE HCl 5 MG Oral Tablet 01/14/2021 - 01/19/2021 Provider: Danish Hartman MD Diagnosis: take 1-2 tablets every 4-6hrs for post op pain Last Documented On 1 4:49PM By Danish Hartman ; [facility] Plavix 75 MG Oral Tablet 01/12/2021 - 03/29/2021 Provi cleo: Diagnosis: Last Documented On 2 10:05AM By Nataliia Lockwood ; [facility] oxyCODONE HCl 5 MG Oral Tablet 01/12/2021 - 01/17/2021 Provider: Danish Hartman MD Diagnosis: take 1-2 tablets every 4-6hrs for post op pain Last Documented On 1 10:46AM By Danish Hartman ; [facility] Losartan Potassium 50 MG Oral Tablet 01/12/2021 - 03/27 Provider: Diagnosis: Last Documented On 1 1:51PM By Aileen Perez ; [facility] Mobic 15 MG Oral Tablet 12/22/2020 - 01/21/2021 Provid er: Danish Hartman MD Diagnosis: 1 every bedtime Last Documented On 1 3:29PM By Danish Hartman ; [facility] Acetaminophen 500 MG Oral Tablet 12/22/2020 - 01/22/20 Provider: Danish Hartman MD Diagnosis: take 2 tablets 3 times daily, AFTER SURGERY Last Documented On 1 3:28PM By Dainsh Hartman ; [facility] Colace 100 MG Oral Capsule 12/22/2020 - 01/21/2021 Pro vider: Danish Hartman MD Diagnosis: 1-2 tablets daily, as needed, AFTER SURGERY Last Documented On 1 3:28PM By Danish Hartman ; [facility] Doxycycline Hyclate 100 MG O ral Capsule 12/22/2020 - 12/25/2020 Provider: Danish Hartman MD Diagnosis: twice a day Last Documented On 1 3:27PM By Danish Hartman ; [facility] Aspirin Adult Low Strength 8 1 MG Oral Tablet Delayed Release 12/22/2020 - 02/05/2021 Provider: Danish Hartman MD Diagnosis: twice a day Last Documented On 1 3:26PM By Danish Hartman ; [facility], [facility] Zofran 4 MG Oral Tablet 12/22/2020 - 01/21/2021 Provid er: Danish Hartman MD Diagnosis: 1 po q 6 to 8 hrs prn pain t alex 1 tablet every 6-8hrs for nausea, AFTER SURGERY Last Documented On 1 3:26PM By Danish Hartman ; [facility], [facility] Ultram 50 MG Oral Tablet 12/22/2020 - 01/01/2021 Provi cleo: Danish Hartman MD Diagnosis: 1-2 p o q 6-8h take 1-2 tabl ets every 6-8 hours for breakthrough post op pain Last Documented On 1 3:35PM By Danish Hartman ; [facility], [facility] oxyCODONE HCl 5 MG Oral Tablet 12/22/2020 - 12/27/2020 Provider: Danish Hartman MD Diagnosis: take 1-2 tablets every 4-6hrs for post op pain Last Documented On 1 3:35PM By Danish Hartman ; [facility], [facility] oxyCODONE HCl 5 MG Oral Tablet 12/15/2020 - 12/19/2020 Provider: Danish Hartman MD Diagnosis: 1-2 po q 4-6h take 1-2 table ts every 4-6hrs for post op pain Last Documented On 1 4:37PM By Danish Hartman ; [facility], [facility] Cefadroxil 500 MG Oral Capsule 12/15/2020 - 12/18/2020 Provider: Danish Hartman MD Diagnosis: twice a day Last Documented On 1 4:26PM By Danish Hartman ; [facility] Mupirocin 2% External Ointment 11/20/2020 - 03/29/2021 Provider: Danish Hartman MD Diagnosis: twice a day - apply under ea ch nostril 2 x day 5days prior to surgery with a q-tip Last Documented On 2 10:05AM By Nataliia Lockwood ; [facility] Benadryl Allergy 25 MG Oral [...] On 1 1:51PM By Aileen Perez ; [facility] Vitamin D3 250 MCG (59487 UT) Oral Capsule 0 06/03/2019 - 01/12/2021 Provider: Diagnosis: Last Documented On 1 1:51PM By Aileen Perez ; [facility] Vitamin B6 200 MG Oral Tablet 06/03/2019 - 01/12/2021 Provider: Diagnosis: Last Documented On 1 1:51PM By Aileen Perez ; [facility] FiberCon 625 MG Oral Tablet 06/03/2019 - 01/12/2021 Pr ovider: Diagnosis: Last Documented On 1 1:51PM By Aileen Perez ; [facility] Tylenol 500mg 500mg Oral Tablet 06/03/2019 - Provider: Diagnosis: Last Documented On 1 1:51PM By Aileen Perez ; [facility] Plavix 75 MG Oral Tablet 06/03/2019 - 01/12/2021 Provi cleo: Diagnosis: Last Documented On 1 1:51PM By Aileen Perez ; [facility] Nystatin [id number] UNIT/GM External Ointment 05/03/2019 - 01/12/2021 Provider: [...] On 1 12:37PM By Erendira Aguilar ; [facility], [facility] Diclofenac Sodium 75 MG OR TBEC 03/08/2011 - Provider: Danish Hartman MD Diagnosis: jayy [phone] jrk Last Documented On 12:38PM By Erendira Aguilar ; [facility], [facility] Naproxen 500 MG OR TBEC 02/14/2011 - 10/07/2020 Provid er: Danish Hartman MD Diagnosis: mkp Last Documented On 12:37PM By Erendira Aguilar ; [facility] Ambien 10 MG OR TABS 08/16/2010 - 10/07/2020 Provider: Danish Hartman MD Diagnosis: mkp Last Documented On 12:38PM By Erendira Aguilar ; [facility], [facility] Lortab 7.5-500 MG OR TABS 08/16/2010 - 10/07/2020 Prov ider: Danish Hartman MD Diagnosis: mkp Last Documented On 12:37PM By Erendira Aguilar ; [facility], [facility] Lortab 7.5-500 MG OR TABS 08/02/2010 - 10/07/2020 Prov ider: Danish Hartman MD Diagnosis: mkp post op meds Last Documented On 12:38PM By Erendira Aguilar ; [facility] DENIED EX MISC 07/28/2010 - 10/07/2020 Provider: Cande Hartman MD Diagnosis: patient needs to be seen/apt on 07/29/10/ab Last Documented On 12:37PM By Erendira Aguilar ; [facility] Lortab 5-500 MG OR TABS 04/07/2010 - 10/07/2020 Provid er: Danish Hartman MD Diagnosis: ab Last Documented On 12:37PM By Erendira Aguilar ; [facility] Lortab 7.5-500 MG OR TABS 03/04/2010 - 10/07/2020 Prov ider: Danish Hartman MD Diagnosis: ab Last Documented On 12:37PM By Erendira Aguilar ; [facility] Ultram 50 MG OR TABS 03/04/2010 - 10/07/2020 Provider: Danish Hartman MD Diagnosis: ab Last Documented On 12:37PM By Erendira Aguilar ; [facility] Lortab 5-500 MG OR TABS 02/24/2010 - 10/07/2020 Provid er: Danish Hartman MD Diagnosis: mkp phoned to jayy [phone] [place] Last Documented On 12:37PM By Erendira Aguilar ; [facility] Lortab 5-500 MG OR TABS 02/15/2010 - 10/07/2020 Provid er: Danish Hartman MD Diagnosis: [phone] jyay pearson Last Documented On 12:37PM By Erendira Aguilar ; [facility] DENIED EX MISC 02/12/2010 - 10/07/2020 Provider: Cande Hartman MD Diagnosis: pt called for lortab. no per aubrey pt is no due until monday jrk spoke to pt df Last Documented On 12:37PM By Erendira Aguilar ; [facility] Lortab 5-500 MG OR TABS 02/09/2010 - 10/07/2020 Provid er: Danish Hartman MD Diagnosis: [phone] ajyy df Last Documented On 12:37PM By Erendira Aguilar ; [facility] traMADol HCl 50 MG OR TABS 01/26/2010 - 10/07/2020 Pro vider: Danish Hartman MD Diagnosis: jayy [place] [phone] jrk Last Documented On 12:38PM By Erendira Aguilar ; [facility] Mobic 15 MG OR TABS 01/26/2010 - 10/07/2020 Provider: Danish Hartman MD Diagnosis: [place] [phone] jrk Last Documented On 12:37PM By Erendira Aguilar ; [facility] Diclofenac Sodium 75 MG OR TBEC 01/06/2010 - 1 Provider: Danish Hartman MD Diagnosis: ab Last Documented On 1 12:37PM By Erendira Aguilar ; [facility], [facility] Medications Administered Includes: Administered Medications in patient's chart No Administered Medications Recorded Results Includes: Results from 07/24/2023 through 07/23/2024 No Results Recorded For Specified Dates History of Present Illness History of Present Illness not supported for this document type No History of Present Illness Recorded Social History Description Last Updated Working part-time 03/29/2021 Last Documented On 2 1:27PM ; [facility] Caffeine use 01/12/2021 Last Documented On 2 2:59PM ; [facility] No recent change in diet 01/12/2021 Last Documented On 2 2:59PM ; [facility] Not a current smoker. 01/12/2021 Last Documented On 2 2:59PM ; [facility] Not exercising regularly 01/12/2021 Last Documented On 2 2:59PM ; [facility] Not using drugs 01/12/2021 Last Documented On 2 2:59PM ; [facility] Non-smoker 10/06/2020 Last Documented On 1 3:56PM ; [facility] No tobacco use 10/08/2018 Last Documented On 9 12:07PM ; [facility] Smoking status : Never smoker 10/08/2018 Last Documented On 9 12:07PM ; [facility] Medical History Includes: Medical History in patient's chart Description Last Updated Anemia 01/12/2021 Last Documented On 2 2:59PM ; [facility] Arthritis 01/12/2021 Last Documented On 2 2:59PM ; [facility] History of diabetes mellitus 01/12/2021 Last Documented On 2 2:59PM ; [facility] History of diverticulitis of colon 01/12 Last Documented On 2 2:59PM ; [facility] History of Gallbladder 01/12/2021 Last Documented On 2 2:59PM ; [facility] History of heart disease 01/12/2021 Last Documented On 2 2:59PM ; [facility] History of Rheumatology 01/12/2021 Last Documented On 2 2:59PM ; [facility] Hypertension 01/12/2021 Last Documented On 2 2:59PM ; [facility] Past Surgical History: RTC RT ~PKR LT ~H ernia 01/12/2021 Last Documented On 2 2:59PM ; [facility] Sleep Apnea 01/12/2021 Last Documented On 2 2:59PM ; [facility], [facility] Total knee arthroplasty 01/12/2021 Last Documented On 2 2:59PM ; [facility] Recent immunization for flu 2019 021 Last Documented On 2 2:59PM ; [facility] Recent immunization for pneumococcal pne umonia 2020 01/12/2021 Last Documented On 2 2:59PM ; [facility] Family History Includes: Family History in patient's chart Description Last Updated Diabetes mellitus 01/12/2021 Last Documented On 2 2:59PM ; [facility] Family history of cancer 01/12/2021 Last Documented On 2 2:59PM ; [facility] Family history of heart disease 01/13/20 21 Last Documented On 2 2:59PM ; [facility] Family history of hypertension 1 Last Documented On 2 2:59PM ; [facility] Family history of osteoporosis 1 Last Documented On 2 2:59PM ; [facility] Review of Systems Review of [...] Documented On 2 1:07PM ; [facility] Insurance Includes: Active Insurance Policies Plan Name Member ID Group # Subscriber Relationship Effect jim Dates 1 - [facility] [id number] [place] Alford III Self Clinical Notes Includes: Signed Clinical Notes starting from 03/10/2022 No Clinical Notes Recorded
--- OUTSIDE RECORDS SUMMARY | 2024-07-23 19:18 | XMS_ITS | Clinical Summary ---
Author Organization [facility] Address [address] [place] [address] Phone Care Team Providers Care Rn Utilization Management Um Name Role Phone Jonah Anthony APRN Primary Care Provider [phone] Minnie VILLALOBOS, Danish Maurer [phone] Reason for Visit and Chief Complaint Post Op Problems Includes: Problems addressed during this encounter and other active Problems All Visits Onset Date Resolved Date Provider Condition S tatus Joint Pain in the Right Knee 10/06/2020 Danish Hartman MD Active Last Documented On 1 3:35PM ; [facility] Joint Pain, Localized in the Left Shoulder 10/08/2018 Ravi Kruse MD Active Last Documented On 9 8:56AM ; [facility] Plan of Treatment Right total knee improving patient continue using the dynamic splints at home to continue stretching extension and flexion follow-up in 6-8 weeks return to work full duty no restrictions - Last Documented On 05/24/2021 3:41PM ; [facility] Instructions to patient Lose weight Last Documented On 2 10:06AM ; [facility] Assessments Includes: Assessments from this encounter No Assessments Recorded Instructions Includes: Instructions from this encounter Instructions to patient Lose weight Last Documented On 2 10:06AM ; [facility] Medical Equipment - Implanted Devices Includes: Current Devices No Medical Equipment Recorded Medications Includes: Medications discussed during this encounter and other current Medications Current Medications (continue as prescribed) Plavix 75 MG Oral Tablet 03/29/2021 Provider: Diagnosis: Last Documented On 2 10:05AM By Nataliia Lockwood ; [facility] Actos 15 MG Oral Tablet 01/12/2021 Provider: Diagnosis: Last Documented On 1 1:52PM By Aileen Perez ; [facility] Past Medications on file oxyCODONE HCl 5 MG Oral Tablet 03/12/2021 - 03/16/2021 Provider: Danish Hartman MD Diagnosis: 1 tablet by mouth every 4 hours for post op pain Last Documented On 1 11:56AM By Danish Hartman ; [facility] Ultram 50 MG Oral Tablet 03/12/2021 - 03/22/2021 Provi cleo: Danish Hartman MD Diagnosis: 1-2 tablets by mouth every 4-6hrs for post op pa in Last Documented On 1 12:11PM By Danish Hartman ; [facility] oxyCODONE HCl 5 MG Oral Tablet 01/14/2021 - 01/19/2021 Provider: Danish Hartman MD Diagnosis: take 1-2 tablets every 4-6hrs for post op pain Last Documented On 1 4:49PM By Danish Hartman ; [facility] oxyCODONE HCl 5 MG Oral Tablet 01/12/2021 - 01/17/2021 Provider: Danish Hartman MD Diagnosis: take 1-2 tablets every 4-6hrs for post op pain Last Documented On 1 10:46AM By Danish Hartman ; [facility] Losartan Potassium 50 MG Oral Tablet 01/12/2021 - 03/27 Provider: Diagnosis: Last Documented On 1 1:51PM By Aielen Perez ; [facility] Mobic 15 MG Oral Tablet 12/22/2020 - 01/21/2021 Provid er: Danish Hartman MD Diagnosis: 1 every bedtime Last Documented On 1 3:29PM By Danish Hartman ; [facility] Acetaminophen 500 MG Oral Tablet 12/22/2020 - 01/22/20 Provider: Danish Hartman MD Diagnosis: take 2 tablets 3 times daily, AFTER SURGERY Last Documented On 1 3:28PM By Danish [facility] Colace 100 MG Oral Capsule 12/22/2020 - 01/21/2021 Pro vider: Danish Hartman MD Diagnosis: 1-2 tablets daily, as needed, AFTER SURGERY Last Documented On 1 3:28PM By Danish Hartman ; [facility], [facility] Doxycycline Hyclate 100 MG O ral Capsule 12/22/2020 - 12/25/2020 Provider: Danish Hartman MD Diagnosis: twice a day Last Documented On 1 3:27PM By Danish Hartman ; [facility], [facility] Aspirin Adult Low Strength 8 1 MG Oral Tablet Delayed Release 12/22/2020 - 02/05/2021 Provider: Danish Hartman MD Diagnosis: twice a day Last Documented On 1 3:26PM By Danish Hartman ; [facility], [facility] Zofran 4 MG Oral Tablet 12/22/2020 - 01/21/2021 Provid er: Danish Hartman MD Diagnosis: 1 po q 6 to 8 hrs prn pain t alex 1 tablet every 6-8hrs for nausea, AFTER SURGERY Last Documented On 1 3:26PM By Danish Hartman ; [facility], [facility] Ultram 50 MG Oral Tablet 12/22/2020 - 01/01/2021 Provi cleo: Danish Hartman MD Diagnosis: 1-2 p o q 6-8h take 1-2 tabl ets every 6-8 hours for breakthrough post op pain Last Documented On 1 3:35PM By Danish Hartman ; [facility], [facility] oxyCODONE HCl 5 MG Oral Tablet 12/22/2020 - 12/27/2020 Provider: Danish Hartman MD Diagnosis: take 1-2 tablets every 4-6hrs for post op pain Last Documented On 1 3:35PM By Danish Hartman ; [facility], [facility] oxyCODONE HCl 5 MG Oral Tablet 12/15/2020 [...] On 05/18/2021 10:05A M ; [facility] Results Includes: Results discussed during this encounter [...] Documented On 2 9:59AM ; [facility] Caffeine use 01/12/2021 Last Documented On 2 9:59AM ; [facility] No recent change in diet 01/12/2021 Last Documented On 2 9:59AM ; [facility] Not a current smoker. 01/12/2021 Last Documented On 2 9:59AM ; [facility] Not exercising regularly 01/12/2021 Last Documented On 2 9:59AM ; [facility] Not using drugs 01/12/2021 Last Documented On 2 9:59AM ; [facility] Non-smoker 10/06/2020 Last Documented On 2 9:59AM ; [facility] No tobacco use 10/08/2018 Last Documented On 2 9:59AM ; [facility] Smoking status : Never smoker 10/08/2018 Last [...] 9:59AM ; [facility] History of heart disease 01/12/2021 [...] 01/12/2021 Last Documented On 2 9:59AM ; [facility] Family history of cancer 01/12/2021 Last Documented On 2 9:59AM ; [facility] Family history of heart disease 01/13/20 21 Last Documented On 2 9:59AM ; [facility] Family history of hypertension 1 Last Documented On 2 9:59AM ; [facility] Family history of osteoporosis 1 Last Documented On 2 9:59AM ; [facility] Review of Systems Includes: Review [...] Active Last Documented On 2 1:07PM ; [facility] Encounters Encounter Provider Location Date Check-In Time Check- Out Time Diagnosis Post Op Danish Hartman MD [facility] 2 9:58AM 10:38AM Insurance Includes: Active Insurance Policies Plan Name Member ID Group # Subscriber Relationship Effect jim Dates 1 - [facility] [id number] [place] Alford III Self Clinical Notes Includes: Clinical Notes from this encounter No Clinical Notes Recorded
--- OUTSIDE RECORDS SUMMARY | 2024-07-23 19:18 | XMS_ITS | Clinical Summary ---
Author Organization [facility] Address [address] [place] [address] Phone Care Team Providers Care Outside Solar Sales Consultant Name Role Phone Raj VERGARA Anthonybelia Primary Care Provider [phone] iMnnie VILLALOBOS, Danish Maurer [phone] Reason for Visit and Chief Complaint The Chief Complaint is: rt knee pain Problems Includes: Problems addressed during this encounter and other active Problems All Visits Onset Date Resolved Date Provider Condition S tatus Joint Pain in the Right Knee 10/06/2020 Danish Hartman MD Active Last Documented On 1 3:35PM ; [facility] Joint Pain, Localized in the Left Shoulder 10/08/2018 Ravi Kruse MD Active Last Documented On 9 8:56AM ; [facility] Plan of Treatment Patient was seen by myself and Dr. Hartman. Baldemar Mota PA-C Patient will follow- up 4 weeks continue physical therapy 2 times a week emphasizing range of motion hopefully we will see if we can return him to work in 4 weeks continue with Dynasplint at home - Last Documented On 04/20/2021 11:22PM ; [facility] Pending Tests Order Diagnosis Results Due Ordering P rovider Therapy - Physical Therapy Knee 04/20/21 Danish Hartman MD Last Documented On 2 11:22PM ; [facility] Assessments Includes: Assessments from this encounter Findings Right total knee replacement - Last Documented On 04/20/2021 11:22PM ; [facility] Right knee manipulation under anesthesia March 15, 2021 - Last Documented On 04/20/2021 11:22PM ; [facility], [facility] Medical Equipment - Implanted Devices Includes: Current Devices No Medical Equipment Recorded Medications Includes: Medications discussed during this encounter and other current Medications Current Medications (continue as prescribed) Plavix 75 MG Oral Tablet 03/29/2021 Provider: Diagnosis: Last Documented On 2 10:05AM By Nataliia Lockwood ; [facility], [facility] Actos 15 MG Oral Tablet 01/12/2021 Provider: Diagnosis: Last Documented On 1 1:52PM By Aileen Perez ; [facility], [facility] Past Medications on file oxyCODONE HCl 5 MG Oral Tablet 03/12/2021 - 03/16/2021 Provider: Dansih Hartman MD Diagnosis: 1 tablet by mouth every 4 hours for post op pain Last Documented On 1 11:56AM By Danish Hartman ; [facility], [facility] Ultram 50 MG Oral Tablet 03/12/2021 - 03/22/2021 Provi cleo: Danish Hartman MD Diagnosis: 1-2 tablets by mouth every 4-6hrs for post op pa in Last Documented On 1 12:11PM By Danish Hartman ; [facility], [facility] oxyCODONE HCl 5 MG Oral Tablet 01/14/2021 - 01/19/2021 Provider: Danish Hartman MD Diagnosis: take 1-2 tablets every 4-6hrs for post op pain Last Documented On 1 4:49PM By Danish Hartman ; [facility], [facility] oxyCODONE HCl 5 MG Oral Tablet 01/12/2021 - 01/17/2021 Provider: Danish Hartman MD Diagnosis: take 1-2 tablets every 4-6hrs for post op pain Last Documented On 1 10:46AM By Danish Hartman ; [facility] Losartan Potassium 50 MG Oral Tablet 01/12/2021 - 03/27 Provider: Diagnosis: Last Documented On 1 1:51PM By Aileen Perez ; [facility], [facility] Mobic 15 MG Oral Tablet 12/22/2020 - 01/21/2021 Provid er: Danish Hartman MD Diagnosis: 1 every bedtime Last Documented On 1 3:29PM By Danish Hartman ; [facility], [facility] Acetaminophen 500 MG Oral Tablet 12/22/2020 - 01/22/20 Provider: Danish Hartman MD Diagnosis: take 2 tablets 3 times daily, AFTER SURGERY Last Documented On 1 3:28PM By Danish Hartman ; [facility], [facility] Colace 100 MG Oral Capsule 12/22/2020 - 01/21/2021 Pro vider: Danish Hartman MD Diagnosis: 1-2 tablets daily, as needed, AFTER SURGERY Last Documented On 3:28PM By Danish Hartman ; [facility], [facility] Doxycycline Hyclate 100 MG O ral Capsule 12/22/2020 - 12/25/2020 Provider: Danish Hartman MD Diagnosis: twice a day Last Documented On 3:27PM By Danish Hartman ; [facility], [facility] Aspirin Adult Low Strength 8 1 MG Oral Tablet Delayed Release 12/22/2020 - 02/05/2021 Provider: Danish Hartman MD Diagnosis: twice a day Last Documented On 3:26PM By Danish Hartman ; [facility], [facility] Zofran 4 MG Oral Tablet 12/22/2020 - 01/21/2021 Provid er: Danish Hartman MD Diagnosis: 1 po q 6 to 8 hrs prn pain t alex 1 tablet every 6-8hrs for nausea, AFTER SURGERY Last Documented On 1 3:26PM By Danish Hartman ; [facility], [facility] Ultram 50 MG Oral Tablet 12/22/2020 - 01/01/2021 Provi cleo: Danish Hartamn MD Diagnosis: 1-2 p o q 6-8h take 1-2 tabl ets every 6-8 hours for breakthrough post op pain Last Documented On 3:35PM By Danish Hartman ; [facility], [facility] oxyCODONE HCl 5 MG Oral Tablet 12/22/2020 - 12/27/2020 Provider: Danish Hartman MD Diagnosis: take 1-2 tablets every 4-6hrs for post op pain Last Documented On 3:35PM By Danish Hartman ; [facility], [facility] oxyCODONE HCl 5 MG Oral Tablet 12/15/2020 - 12/19/2020 Provider: Danish Hartman MD Diagnosis: 1-2 po q 4-6h take 1-2 table ts every 4-6hrs for post op pain Last Documented On 1 4:37PM By Danish Hartman ; [facility] Cefadroxil 500 MG Oral Capsule 12/15/2020 - 12/18/2020 Provider: Danish Hartman MD Diagnosis: twice a day Last Documented On 1 4:26PM By Danish Hartman ; [facility] Medications Administered Includes: Administered Medications from this encounter No Administered Medications Recorded Vital Signs Includes: Vital Signs from this encounter Vital Name 04/20/2021 10:21A Blood Pressure Sitting (mmHg) 124/80 Pulse Rate-Sitting (bpm) 84 Height (in) 69 Weight (lb) 213.5 Body Mass Index (kg/m2) 31.5 Body Surface Area (m2) 2.1 Note: MG Last Documented: On 04/20/2021 10:24A M ; [facility] Results Includes: Results discussed during [...] Documented On 2 10:06AM ; [facility] Caffeine use 01/12/2021 Last Documented On 2 10:06AM ; [facility] No recent change in diet 01/12/2021 Last Documented On 2 10:06AM ; [facility] Not a current smoker. 01/12/2021 Last Documented On 2 10:06AM ; [facility] Not exercising regularly 01/12/2021 Last Documented On 2 10:06AM ; [facility] Not using drugs 01/12/2021 Last Documented On 2 10:06AM ; [facility] Non-smoker 10/06/2020 Last Documented On 2 10:06AM ; [facility] No tobacco use 10/08/2018 Last Documented On 2 10:06AM ; [facility] Smoking status : Never smoker 10/08/2018 Last Documented On 2 10:06AM ; [facility], [facility] Procedures and Surgical History Includes: Procedures from this encounter Procedures Code Diagnosis Performing Provider Service L ocation Service Date use of tobacco assessment performed 1000F Last Documented On 2 10:06AM ; [facility], [facility] an X-ray was performed 91126 Last Documented On 2 10:06AM ; [facility], [facility] an MRI was performed 32739 Last Documented On 2 10:06AM ; [facility] History of EKG Last Documented On 2 10:06AM ; [facility], [facility] History of Blood Tests Last Documented On 2 10:06AM ; [facility], [facility] Medical History Includes: Medical History addressed during this encounter Description Last Updated Anemia 01/12/2021 Last Documented On 2 10:06AM ; [facility], [facility] Arthritis 01/12/2021 Last Documented On 2 10:06AM ; [facility] History of diabetes mellitus 01/12/2021 Last Documented On 2 10:06AM ; [facility] History of diverticulitis of colon 01/12 Last Documented On 2 10:06AM ; [facility] History of Gallbladder 01/12/2021 Last Documented On 2 10:06AM ; [facility] History of heart disease 01/12/2021 Last Documented On 2 10:06AM ; [facility] History of Rheumatology 01/12/2021 Last Documented On 2 10:06AM ; [facility], [facility] Hypertension 01/12/2021 Last Documented On 2 10:06AM ; [facility], [facility] Past Surgical History: RTC RT ~PKR LT ~H ernia 01/12/2021 Last Documented On 2 10:06AM ; [facility], [facility] Sleep Apnea 01/12/2021 Last Documented On 2 10:06AM ; [facility], [facility] Total knee arthroplasty 01/12/2021 Last Documented On 2 10:06AM ; [facility], [facility] Recent immunization for flu 2019 021 Last Documented On 2 10:06AM ; [facility], [facility] Recent immunization for pneumococcal pne umonia 201901/12/2021 Last Documented On 2 10:06AM ; [facility], [facility] Family History Includes: Family History addressed during this encounter Description Last Updated Diabetes mellitus 01/12/2021 Last Documented On 2 10:06AM ; [facility], [facility] Family history of cancer 01/12/2021 Last Documented On 2 10:06AM ; [facility], [facility] Family history of heart disease 01/13/20 21 Last Documented On 2 10:06AM ; [facility], [facility] Family history of hypertension 1 Last Documented On 2 10:06AM ; [facility], [facility] Family history of osteoporosis 1 Last Documented On 2 10:06AM ; [facility], [facility] Review of Systems Includes: Review [...] Active Last Documented On 2 1:07PM ; [facility], [facility] Encounters Encounter Provider Location Date Check-In Time Check- Out Time Diagnosis Post Op Danish Hartman MD [facility] 2 9:50AM 10:50AM Insurance Includes: Active Insurance Policies Plan Name Member ID Group # Subscriber Relationship Effect jim Dates 1 - [facility] [id number] [place] III Self Clinical Notes Includes: Clinical Notes from this encounter No Clinical Notes Recorded
--- OUTSIDE RECORDS SUMMARY | 2024-07-23 19:18 | XMS_ITS | Clinical Summary ---
Author Organization [facility] Address [address] [place] [address] Phone Care Team Providers Care Event Planning Intern Name Role Phone Raj VERGARA Anthonybelia Primary Care Provider [phone] Minnie VILLALOBOS, Danish Maurer [phone] Reason for Visit and Chief Complaint The Chief Complaint is: RT TKA Problems Includes: Problems addressed during this encounter and other active Problems All Visits Onset Date Resolved Date Provider Condition S tatus Joint Pain in the Right Knee 10/06/2020 Danish Hartman MD Active Last Documented On 1 3:35PM ; [facility] Joint Pain, Localized in the Left Shoulder 10/08/2018 Ravi Kruse MD Active Last Documented On 9 8:56AM ; [facility], [facility] Plan of Treatment Patient was seen [...] - Last Documented On 06/29/2021 1:27PM ; [facility], [facility] Instructions to patient Lose weight Last Documented On 2 1:01PM ; [facility], [facility] Assessments Includes: Assessments from this encounter Findings Right total knee replacement November 2020 with vapor ablation in February 2021 - Last Documented On 06/29/2021 1:27PM ; [facility], [facility] Instructions Includes: Instructions from this encounter Instructions to patient Lose weight Last Documented On 2 1:01PM ; [facility], [facility] Medical Equipment - Implanted Devices Includes: Current Devices No Medical Equipment Recorded Medications Includes: Medications discussed during this encounter and other current Medications Current Medications (continue as prescribed) Plavix 75 MG Oral Tablet 03/29/2021 Provider: Diagnosis: Last Documented On 2 10:05AM By Nataliia Lockwood ; [facility], [facility] Actos 15 MG Oral Tablet 01/12/2021 Provider: Diagnosis: Last Documented On 1 1:52PM By Aileen Dubois [facility] Past Medications on file oxyCODONE HCl 5 MG Oral Tablet 03/12/2021 - 03/16/2021 Provider: Danish Hartman MD Diagnosis: 1 tablet by mouth every 4 hours for post op pain Last Documented On 1 11:56AM By Danish Hartman ; [facility], [facility] Ultram 50 MG Oral Tablet 03/12/2021 - 03/22/2021 Provi cleo: Danish Hartman MD Diagnosis: 1-2 tablets by mouth every 4-6hrs for post op pa in Last Documented On 1 12:11PM By Danish Hartman ; [facility], [facility] oxyCODONE HCl 5 MG Oral Tablet 01/14/2021 - 01/19/2021 Provider: Danish Hartman MD Diagnosis: take 1-2 tablets every 4-6hrs for post op pain Last Documented On 1 4:49PM By Danish Hartman ; [facility], [facility] oxyCODONE HCl 5 MG Oral Tablet 01/12/2021 - 01/17/2021 Provider: Danish Hartman MD Diagnosis: take 1-2 tablets every 4-6hrs for post op pain Last Documented On 1 10:46AM By Danish Hartman ; [facility], [facility] Losartan Potassium 50 MG Oral Tablet 01/12/2021 - 03/27 Provider: Diagnosis: Last Documented On 1 1:51PM By Aileen Dubois [facility] Mobic 15 MG Oral Tablet 12/22/2020 - 01/21/2021 Provid er: Danish Hartman MD Diagnosis: 1 every bedtime Last Documented On 1 3:29PM By Danish Hartman ; [facility], [facility] Acetaminophen 500 MG Oral Tablet 12/22/2020 - 01/22/20 Provider: Danish Hartman MD Diagnosis: take 2 tablets 3 times daily, AFTER SURGERY Last Documented On 1 3:28PM By Danish Hartman ; [facility], [facility] Colace 100 MG Oral Capsule 12/22/2020 - 01/21/2021 Pro vider: Danish Hartman MD Diagnosis: 1-2 tablets daily, as needed, AFTER SURGERY Last Documented On 1 3:28PM By Danish Hartman ; [facility], [facility] Doxycycline Hyclate 100 MG O ral Capsule 12/22/2020 - 12/25/2020 Provider: Danish Hartman MD Diagnosis: twice a day Last Documented On 1 3:27PM By Danish Hartman ; [facility], [facility] Aspirin Adult Low Strength 8 1 MG Oral Tablet Delayed Release 12/22/2020 - 02/05/2021 Provider: Danish Hartman MD Diagnosis: twice a day Last Documented On 1 3:26PM By Danish Hartman ; [facility], [facility] Zofran 4 MG Oral Tablet 12/22/2020 - 01/21/2021 Provid er: Danish Hartman MD Diagnosis: 1 po q 6 to 8 hrs prn pain t alex 1 tablet every 6-8hrs for nausea, AFTER SURGERY Last Documented On 1 3:26PM By Danish Hartman ; [facility], [facility] Ultram 50 MG Oral Tablet 12/22/2020 - 01/01/2021 Provi cleo: Danish Hartman MD Diagnosis: 1-2 p o q 6-8h take 1-2 tabl ets every 6-8 hours for breakthrough post op pain Last Documented On 1 3:35PM By Danish Hartman ; [facility], [facility] oxyCODONE HCl 5 MG Oral Tablet 12/22/2020 - 12/27/2020 Provider: Danish Hartman MD Diagnosis: take 1-2 tablets every 4-6hrs for post op pain Last Documented On 1 3:35PM By Danish Hartman ; [facility], [facility] oxyCODONE HCl 5 MG Oral Tablet 12/15/2020 - 12/19/2020 Provider: Danish Hartman MD Diagnosis: 1-2 po q 4-6h take 1-2 table ts every 4-6hrs for post op pain Last Documented On 1 4:37PM By Danish Hartman ; [facility] Cefadroxil 500 MG Oral Capsule 12/15/2020 - 12/18/2020 Provider: Danish Hartman MD Diagnosis: twice a day Last Documented On 1 4:26PM By Danish Hartman ; [facility] Medications Administered Includes: Administered Medications from this encounter No Administered Medications Recorded Vital Signs Includes: Vital Signs from this encounter Vital Name 06/29/2021 01:11P Blood Pressure Sitting (mmHg) 102/63 Pulse Rate-Sitting (bpm) 96 Height (in) 69 Weight (lb) 214.8 Body Mass Index (kg/m2) 31.7 Body Surface Area (m2) 2.1 Note: mg Last Documented: On 06/29/2021 1:11PM ; [facility] Results Includes: Results discussed during this [...] Documented On 2 1:01PM ; [facility] Caffeine use 01/12/2021 Last Documented On 2 1:01PM ; [facility] No recent change in diet 01/12/2021 Last Documented On 2 1:01PM ; [facility] Not a current smoker. 01/12/2021 Last Documented On 2 1:01PM ; [facility] Not exercising regularly 01/12/2021 Last Documented On 2 1:01PM ; [facility] Not using drugs 01/12/2021 Last Documented On 2 1:01PM ; [facility], [facility] Non-smoker 10/06/2020 Last Documented On 2 1:01PM ; [facility], [facility] No tobacco use 10/08/2018 Last Documented On 2 1:01PM ; [facility], [facility] Smoking status : Never smoker 10/08/2018 Last Documented On 2 1:01PM ; [facility], [facility] Procedures and Surgical History Includes: Procedures from this encounter Procedures Code Diagnosis Performing Provider Service L ocation Service Date use of tobacco assessment performed 1000F Last Documented On 2 1:01PM ; [facility], [facility] Medical History Includes: Medical History addressed during this encounter Description Last Updated Anemia 01/12/2021 Last Documented On 2 1:01PM ; [facility], [facility] Arthritis 01/12/2021 Last Documented On 2 1:01PM ; [facility], [facility] History of diabetes mellitus 01/12/2021 Last Documented On 2 1:01PM ; [facility], [facility] History of diverticulitis of colon 01/12 Last Documented On 2 1:01PM ; [facility], [facility] History of Gallbladder 01/12/2021 Last Documented On 2 1:01PM ; [facility], [facility] History of heart disease 01/12/2021 Last Documented On 2 1:01PM ; [facility], [facility] History of Rheumatology 01/12/2021 Last Documented On 2 1:01PM ; [facility], [facility] Hypertension 01/12/2021 Last Documented On 2 1:01PM ; [facility], [facility] Past Surgical History: RTC RT ~PKR LT ~H ernia 01/12/2021 Last Documented On 2 1:01PM ; [facility], [facility] Sleep Apnea 01/12/2021 Last Documented On 2 1:01PM ; [facility], [facility] Total knee arthroplasty 01/12/2021 Last Documented On 2 1:01PM ; [facility] Recent immunization for flu 2019 021 Last Documented On 2 1:01PM ; [facility] Recent immunization for pneumococcal pne umonia 201901/12/2021 Last Documented On 2 1:01PM ; [facility], [facility] Family History Includes: Family History addressed during this encounter Description Last Updated Diabetes mellitus 01/12/2021 Last Documented On 2 1:01PM ; [facility] Family history of cancer 01/12/2021 Last Documented On 2 1:01PM ; [facility] Family history of heart disease 01/13/20 21 Last Documented On 2 1:01PM ; [facility] Family history of hypertension 1 Last Documented On 2 1:01PM ; [facility] Family history of osteoporosis 1 Last Documented On 2 1:01PM ; [facility] Review of Systems Includes: Review of [...] Documented On 2 1:07PM ; [facility] Encounters Encounter Provider Location Date Check-In Time Check- Out Time Diagnosis [facility] 2 12:33PM 1:26PM Insurance Includes: Active Insurance Policies Plan Name Member ID Group # Subscriber Relationship Effect jim Dates 1 - [facility] [id number] [place] III Self Clinical Notes Includes: Clinical Notes from this encounter No Clinical Notes Recorded
--- OUTSIDE RECORDS SUMMARY | 2024-07-23 19:18 | XMS_ITS | Clinical Summary ---
Author Organization [facility] Address [address] [place] [address] Phone Care Team Providers Care Lead Systems Analyst Name Role Phone Raj VERGARA Anthonyrosagerald Primary Care Provider [phone] Minnie VILLALOBOS, Danish Maurer [phone] Reason for Referral Date Encounter Description Provider [...] On 1 3:35PM ; [facility] Joint Pain, Localized in the Left Shoulder 10/08/2018 Ravi Kruse MD Active Last Documented On 9 8:56AM ; [facility] Plan of Treatment Patient was seen by [...] - Last Documented On 03/30/2021 1:27PM ; [facility], [facility] Pending Tests Order Diagnosis Results Due Ordering P rovider Therapy - Physical Therapy Knee 03/29/21 Baldemar Mota PA-C Last Documented On 2 10:22AM ; [facility], [facility] Assessments Includes: Assessments from this encounter Findings Right total knee replacement December 23, 2020 - Last Documented On 03/30/2021 1:27PM ; [facility] Right manipulation under anesthesia March 15, 2021 - Last Documented On 03/30/2021 1:27PM ; [facility], [facility] Medical Equipment - Implanted Devices Includes: Current Devices No Medical Equipment Recorded Medications Includes: Medications discussed during this encounter and other current Medications Discontinued / Stopped on this date Danish Hartman MD on 03/12/2021 Zofran 4 MG Oral Tablet Provider: Deanne Hartman MD Diagnosis: Last Documented On 10:05AM By Nataliia Lockwood ; [facility] Mupirocin 2% External Ointment Provider: Danish Hartman MD Diagnosis: Last Documented On 10:05AM By Nataliia Lockwood ; [facility] Current Medications (continue as prescribed) Plavix 75 MG Oral Tablet 03/29/2021 Provider: Diagnosis: Last Documented On 2 10:05AM By Nataliia Lockwood ; [facility], [facility] Actos 15 MG Oral Tablet 01/12/2021 Provider: Diagnosis: Last Documented On 1 1:52PM By Aileen [facility] Past Medications on file oxyCODONE HCl 5 MG Oral Tablet 03/12/2021 - 03/16/2021 Provider: Danish Hartman MD Diagnosis: 1 tablet by mouth every 4 hours for post op pain Last Documented On 1 11:56AM By Danish [facility] Ultram 50 MG Oral Tablet 03/12/2021 - 03/22/2021 Provi cleo: Danish Hartman MD Diagnosis: 1-2 tablets by mouth every 4-6hrs for post op pa in Last Documented On 12:11PM By Danish Hartman ; [facility] oxyCODONE HCl 5 MG Oral Tablet 01/14/2021 - 01/19/2021 Provider: Danish Hartman MD Diagnosis: take 1-2 tablets every 4-6hrs for post op pain Last Documented On 1 4:49PM By Danish Dubois [facility] oxyCODONE HCl 5 MG Oral Tablet 01/12/2021 - 01/17/2021 Provider: Danish Hartman MD Diagnosis: take 1-2 tablets every 4-6hrs for post op pain Last Documented On 1 10:46AM By Danish Dubois [facility] Losartan Potassium 50 MG Oral Tablet 01/12/2021 - 03/27 Provider: Diagnosis: Last Documented On 1 1:51PM By Aileen Dubois [facility], [facility] Mobic 15 MG Oral Tablet 12/22/2020 - 01/21/2021 Provid er: Danish Hartman MD Diagnosis: 1 every bedtime Last Documented On 1 3:29PM By Danish Dubois [facility], [facility] Acetaminophen 500 MG Oral Tablet 12/22/2020 - 01/22/20 Provider: Danish Hartman MD Diagnosis: take 2 tablets 3 times daily, AFTER SURGERY Last Documented On 1 3:28PM By Danish Hartman ; [facility], [facility] Colace 100 MG Oral Capsule 12/22/2020 - 01/21/2021 Pro vider: Danish Hartman MD Diagnosis: 1-2 tablets daily, as needed, AFTER SURGERY Last Documented On 1 3:28PM By Danish Hartman ; [facility] Doxycycline Hyclate 100 MG O ral Capsule 12/22/2020 - 12/25/2020 Provider: Danish Hartman MD Diagnosis: twice a day Last Documented On 1 3:27PM By Danish Dubois [facility] Aspirin Adult Low Strength 8 1 MG Oral Tablet Delayed Release 12/22/2020 - 02/05/2021 Provider: Danish Hartman MD Diagnosis: twice a day Last Documented On 1 3:26PM By Danish Dubois [facility] Zofran 4 MG Oral Tablet 12/22/2020 - 01/21/2021 Provid er: Danish Hartman MD Diagnosis: 1 po q 6 to 8 hrs prn pain t alex 1 tablet every 6-8hrs for nausea, AFTER SURGERY Last Documented On 1 3:26PM By Danish Hartman ; [facility], [facility] Ultram 50 MG Oral Tablet 12/22/2020 - 01/01/2021 Provi cleo: Danish Hartman MD Diagnosis: 1-2 p o q 6-8h take 1-2 tabl ets every 6-8 hours for breakthrough post op pain Last Documented On 1 3:35PM By Danish Dubois [facility], [facility] oxyCODONE HCl 5 MG Oral Tablet 12/22/2020 - 12/27/2020 Provider: Danish Hartman MD Diagnosis: take 1-2 tablets every 4-6hrs for post op pain Last Documented On 1 3:35PM By Danish Hartman ; [facility], [facility] oxyCODONE HCl 5 MG Oral Tablet 12/15/2020 - 12/19/2020 Provider: Danish Hartman MD Diagnosis: 1-2 po q 4-6h take 1-2 table ts every 4-6hrs for post op pain Last Documented On 1 4:37PM By Danish Dubois [facility], [facility] Cefadroxil 500 MG Oral Capsule 12/15/2020 - 12/18/2020 Provider: Danish Hartman MD Diagnosis: twice a day Last Documented On 1 4:26PM By Danish Hartman ; [facility], [facility] Medications Administered Includes: Administered Medications from this encounter No Administered Medications Recorded Vital Signs Includes: Vital Signs from this encounter Vital Name 03/29/2021 10:05A Blood Pressure Sitting (mmHg) 142/83 Pulse Rate-Sitting (bpm) 100 Height (in) 69 Note: [facility] Last Documented: On 03/29/2021 10:05A M ; [facility], [facility] Results Includes: Results discussed during this encounter [...] 03/29/2021 Last Documented On 2 1:27PM ; [facility] Caffeine use 01/12/2021 Last Documented On 2 9:48AM ; [facility] No recent change in diet 01/12/2021 Last Documented On 2 9:48AM ; [facility] Not a current smoker. 01/12/2021 Last Documented On 2 9:48AM ; [facility] Not exercising regularly 01/12/2021 Last Documented On 2 9:48AM ; [facility] Not using drugs 01/12/2021 Last Documented On 2 9:48AM ; [facility] Non-smoker 10/06/2020 Last Documented On 2 9:48AM ; [facility] No tobacco use 10/08/2018 Last Documented On 2 9:48AM ; [facility] Smoking status : Never smoker 10/08/2018 Last Documented On 2 9:48AM ; [facility], [facility] Procedures and Surgical History Includes: Procedures from this encounter Procedures Code Diagnosis Performing Provider Service L ocation Service Date use of tobacco assessment performed 1000F Last Documented On 2 9:48AM ; [facility], [facility] referral to physician see pcp for bp Last Documented On 2 9:48AM ; [facility] Pt received screening for fall risk G8270 Last Documented On 2 9:48AM ; [facility] an X-ray was performed 83329 Last Documented On 2 9:48AM ; [facility] an MRI was performed 59053 Last Documented On 2 9:48AM ; [facility] History of EKG Last Documented On 2 9:48AM ; [facility] History of Blood Tests Last Documented On 2 9:48AM ; [facility] Medical History Includes: Medical History addressed during this encounter Description Last Updated Anemia 01/12/2021 Last Documented On 2 9:48AM ; [facility] Arthritis 01/12/2021 Last Documented On 2 9:48AM ; [facility] History of diabetes mellitus 01/12/2021 Last Documented On 2 9:48AM ; [facility] History of diverticulitis of colon 01/12 Last Documented On 2 9:48AM ; [facility] History of Gallbladder 01/12/2021 Last Documented On 2 9:48AM ; [facility] History of heart disease 01/12/2021 Last Documented On 2 9:48AM ; [facility] History of Rheumatology 01/12/2021 Last Documented On 2 9:48AM ; [facility] Hypertension 01/12/2021 Last Documented On 2 9:48AM ; [facility] Past Surgical History: RTC RT ~PKR LT ~H ernia 01/12/2021 Last Documented On 2 9:48AM ; [facility] Sleep Apnea 01/12/2021 Last Documented On 2 9:48AM ; [facility] Total knee arthroplasty 01/12/2021 Last Documented On 2 9:48AM ; [facility] Recent immunization for flu 2019 021 Last Documented On 2 9:48AM ; [facility] Recent immunization for pneumococcal pne umonia 201901/12/2021 Last Documented On 2 9:48AM ; [facility] Family History Includes: Family History addressed during this encounter Description Last Updated Diabetes mellitus 01/12/2021 Last Documented On 2 9:48AM ; [facility] Family history of cancer 01/12/2021 Last Documented On 2 9:48AM ; [facility] Family history of heart disease 01/13/20 21 Last Documented On 2 9:48AM ; [facility] Family history of hypertension 1 Last Documented On 2 9:48AM ; [facility] Family history of osteoporosis 1 Last Documented On 2 9:48AM ; [facility] Review of Systems Includes: Review [...] Active Last Documented On 2 1:07PM ; [facility] Encounters Encounter Provider Location Date Check-In Time Check- Out Time Diagnosis Post Op Baldemar Mota PA-C [facility] 2 9:47AM 10:21AM Insurance Includes: Active Insurance Policies Plan Name Member ID Group # Subscriber Relationship Effect jim Dates 1 - [facility] [id number] [place] Alford III Self Clinical Notes Includes: Clinical Notes from this encounter No Clinical Notes Recorded
--- OUTSIDE RECORDS SUMMARY | 2024-07-23 19:18 | XMS_ITS | Data Portability ---
Author Organization [facility] Address [address] [place] [address] Assessment Encounter Date Assessment Date Assessment LastModified by Organization Details LastModified Time 11/23/2018 11/23/2018 We had a long discussion about treatment. I do not feel that surgical treatments for rotator cuff repair would be helpful in this situation. I do think he would benefit by the reverse shoulder replacement. This was reviewed with Dr. Esparza and he agrees that this would probably be the best thing to try to take care of the problem. We will have him see Dr. Esparza for further evaluation and possible treatment. [email or web address] Not available 11/23/2018 13:47:06 Plan of Treatment Reminders Order Date Submit Date Provider Last Modified By Organization Details Last Modified Time Details Appointments None record ed. Lab None record ed. Referral None record ed. Procedures None record ed. Surgeries None record ed. Imaging None record ed. Medication Orders None record ed. Patient TargetsNo targets recorded. Patient Instructions Encounter Date Encounter Id Patient Instructions Last Modified By Organization Details Last Modified Time 11/23/2018 [id number] shoulder arthritis: exercises [email or web address] Not available 11/29/2018 09:27:09 Clinical symptoms are consistent with a large rotator cuff tear. I did review the MRI and it shows a large retracted rotator cuff tear in the supraspinatus and subscapularis with 50% atrophy of the supraspinatus and some diminution of size of the subscapularis as well with mild arthrosis, there is a superior humeral head positioning. [email or web address] Not available 11/23/2018 13:47:06 Reason for Referral None Reported. Results Created Date Observation Date Name Description Value Unit Range Abnormal Flag Note LastModifiedBy Organization Detail LastModifiedTime Result Notes None recorded. 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 From Automated Load;Prov ider: Sg Orourke Jr;St atus: Active Not Available [facility] 7 02:42:07 Reduced libido 9263009 Active 2015 From Automated Load;Prov ider: Sg Orourke Jr;St atus: Active Not Available [facility] 7 06:28:36 Impotence Active 2015 From Automated Load;Prov ider: Sg Orourke Jr;St atus: Active Not Available [facility] 7 07:22:50 Lower urinary tract symptoms due to benign prostatic hypertrop hy 12008159524 101 Active 2015 From Automated Load;Prov ider: Sg Orourke Jr;St atus: Active Not Available [facility] 7 08:26:38 Problem Notes None recorded. Medical Equipment None Reported. Allergies Allergen ID Allergen Name Allergen Category Reaction Reaction Severity Criticality Documentation Date Start Date Code Code System Note Provider Name and Address Organization Details Recorded Time 857073 Product containin g penicilli n (product) medicatio n Not available Not available Not available 05/09/20162014 03334 8001 SNOMED Comme nt: Creat ed By: Annita huff MaddieKee chaudhari d Date: 2014 10:23 :22 AM; Not Available [facility] 7 10:59:12 Medications Name Sig Start Date Stop Date Status Note LastModified by Organization Details LastModified Time glycopyrr olate 1 mg tablet Three times a day 11/23 completed Duration: 10 days;Freq uency: tid;Medic ation Descripti on: glycopyrr olate; Route:ora l; refills:0 ; Quantity: 21 tablet Not Available Not Available Not Available metformin 500 mg tablet Two times a day 11/23 completed Frequency : bid;Alt Frequency : with food;Medi cation Descripti on: metformin ; Dosage:1; Route:ora l; refills:5 ; Quantity: 60 tablet Not Available Not Available Not Available Plavix 75 mg tablet Take 1 tablet every day by oral route. active Not Available Not Available No t Available Vitamin D2 1,250 mcg (50,000 unit) capsule active Medicatio n Descripti on: ergocalci ferol; Route:ora l; refills:0 Not Available Not Available Not Available loratadin e 10 mg tablet Daily 11/23 completed Frequency : daily;Med ication Descripti on: loratadin e; Dosage:1; Route:ora l; refills:5 ; Quantity: 30 tablet Not Available Not Available Not Available Benadryl 25 mg capsule Four times a day active Duration: 10 days;Freq uency: qid;Alt Frequency : prn;Medic ation Descripti on: diphenhyd ramine; Dosage:1- 2; Route:ora l; refills:0 ; Quantity: 40 capsule Not Available Not Available Not Available magnesium active Not Available Not Neeru ilable Not Available Vitamin C active Medicatio n Descripti on: ascorbic acid; refills:0 Not Available Not Available Not Available potassium chloride Daily 11/23 completed Frequency : daily;Med ication Descripti on: potassium chloride; Dosage:1; refills:5 ; Quantity: 30 Not Available Not Available Not Available aspirin active Medicatio n Descripti on: aspirin; refills:0 Not Available Not Available Not Available vitamin B complex active Medicatio n Descripti on: multivita min; refills:0 Not Available Not Available Not Available tramadol active Not Available Not Avai lable Not Available simvastat in active Medicatio n Descripti on: simvastat in; Route:ora l; refills:0 Not Available Not Available Not Available losartan active Not Available Not Avai lable Not Available Tylenol active Not Available Not Avail able Not Available cyclobenz aprine active Not Available Not Available Not Available fiber active Not Available Not Availa ble Not Available Actos active Not Available Not Availa ble Not Available vitamin E 15 unit/0.3 mL oral drops active Medicatio n Descripti on: vitamin E; Route:ora l; refills:0 ; Quantity: 1 capsule Not Available Not Available Not Available Effient 11/23 completed Medicatio n Descripti on: prasugrel ; Route:ora l; refills:0 Not Available Not Available Not Available Zyrtec 10 mg capsule Take by oral route. active Not Available Not Available No t Available Vitamin B12 active Medicatio n Descripti on: cyanocoba daisy; refills:0 Not Available Not Available Not Available Xeljanz XR 11 mg tablet,ex tended release Take 1 tablet every day by oral route. active Not Available Not Available No t Available Vitals Date Recorded Body height Body mass index (BMI) Body weight Systolic blood pressure Diastolic blood pressure Provider Name and Address Organization Details Last Updated DateTime 11/23/2018 175.26 cm 33.1 kg/m2 545780.6 9 g 132 mm[Hg] 80 mm[Hg] Rebeca Mejias [facility] 9 09:33:02 Social History None recorded. Functional Status None recorded. Mental Status None recorded. Family History Nothing Reported. Medical History Condition Response COPD N Pneumonia Y Arthritis Y Cancer N Stroke N Kidney Disease N Heart Conditions Y Migraines N Asthma N Anxiety/Depression N Thyroid Disease N Hernia Y Anesthesia Complications N Blood Thinners Y High Cholesterol Y Liver Disease N Allergies/Hayfever Y Diabetes Y Seizures/Epilepsy N Sleep Apnea Y Hypertension Y Past Encounters Encounter ID Performer Location Encounter Start Date Encounter Closed Date Diagnosis/Indication Diagnosis SNOMED-CT Code Diagnosis ICD10 Code Diagnosis Note [id number] [place] [address] 07/06/2016 15:48:49 07/06/2016 15:48:49 [id number] Skinny MONDRAGON [facility] [address] [place] [address] 11/23/2018 08:51:17 11/27/2018 15:10:20 Localized, primary osteoarthritis of the shoulder region 638142699 M19.019 Health Concerns Section Related Observation LastModified by Organization Detai ls LastModified Time None Recorded Concern Status LastModified by Organization Details LastModified Time None Recorded Advance Directives Directive None Recorded Payers Encounter Date Sequence Insurance Name Policy Number Policy Neal Covered Member ID Neal Member ID Guarantor Name 11/23/2018 1 [employer] (MEDICARE REPLACEMENT PPO) [id number] [place] III [id number] [place] Notes Date Note Type Note Provider Name and Address Organization Details Recorded Time 11/23/2018 text/html The maximal problems are with abduction and rotation and pushing with the arm. Skinny MONDRAGON MD [address] [place] [address], [place], [address], [facility] 11/29/2018 09:27:12
--- OUTSIDE RECORDS SUMMARY | 2024-07-23 19:18 | XMS_ITS | Clinical Summary ---
Author Organization [facility] Address [address] [place] [address] Phone Care Team Providers Care Metal Fabricating Supervisor Name Role Phone Raj VERGARA Anthonybelia Primary Care Provider [phone] Minnie VILLALOBOS, Danish Maurer [phone] Reason for Visit and Chief Complaint The Chief Complaint is: RT TKA Problems Includes: Problems addressed during this encounter and other active Problems All Visits Onset Date Resolved Date Provider Condition S tatus Joint Pain in the Right Knee 10/06/2020 Danish Hartman MD Active Last Documented On 1 3:35PM ; [facility] Joint Pain, Localized in the Left Shoulder 10/08/2018 Ravi Kruse MD Active Last Documented On 9 8:56AM ; [facility] Plan of Treatment patient was seen by myself Baldemar Mota PA-C. Patient will follow up right now as needed he was told to follow-up every 3 to 4 years after this just for an x-ray to see how the implant looks on x-ray. - Last Documented On 01/05/2022 1:30PM ; [facility] Instructions to patient Lose weight Last Documented On 2 1:04PM ; [facility] Assessments Includes: Assessments from this encounter Findings Right total knee replacement December 23, 2020 - Last Documented On 01/05/2022 1:30PM ; [facility] Instructions Includes: Instructions from this encounter Instructions to patient Lose weight Last Documented On 2 1:04PM ; [facility] Medical Equipment - Implanted Devices Includes: Current Devices No Medical Equipment Recorded Medications Includes: Medications discussed during this encounter and other current Medications Current Medications (continue as prescribed) Plavix 75 MG Oral Tablet 03/29/2021 Provider: Diagnosis: Last Documented On 2 10:05AM By Nataliia Lockwood ; [facility] Actos 15 MG Oral Tablet 01/12/2021 Provider: Diagnosis: Last Documented On 1 1:52PM By Aileen Perez ; [facility] Past Medications on file oxyCODONE HCl 5 MG Oral Tablet 03/12/2021 - 03/16/2021 Provider: Danish Hartman MD Diagnosis: 1 tablet by mouth every 4 hours for post op pain Last Documented On 1 11:56AM By Danish Hartman ; [facility] Ultram 50 MG Oral Tablet 03/12/2021 - 03/22/2021 Provi cleo: Danish Hartman MD Diagnosis: 1-2 tablets by mouth every 4-6hrs for post op pa in Last Documented On 1 12:11PM By Danish Hartman ; [facility] oxyCODONE HCl 5 MG Oral Tablet 01/14/2021 - 01/19/2021 Provider: Danish Hartman MD Diagnosis: take 1-2 tablets every 4-6hrs for post op pain Last Documented On 1 4:49PM By Danish Hartman ; [facility] oxyCODONE HCl 5 MG Oral Tablet 01/12/2021 - 01/17/2021 Provider: Danish Hartman MD Diagnosis: take 1-2 tablets every 4-6hrs for post op pain Last Documented On 1 10:46AM By Danish Hartman ; [facility] Losartan Potassium 50 MG Oral Tablet 01/12/2021 - 03/27 Provider: Diagnosis: Last Documented On 1 1:51PM By Aileen [facility] Mobic 15 MG Oral Tablet 12/22/2020 - 01/21/2021 Provid er: Danish Hartman MD Diagnosis: 1 every bedtime Last Documented On 1 3:29PM By Danish Hartman ; [facility] Acetaminophen 500 MG Oral Tablet 12/22/2020 - 01/22/20 Provider: Danish Hartman MD Diagnosis: take 2 tablets 3 times daily, AFTER SURGERY Last Documented On 1 3:28PM By Danish Hartman ; [facility] Colace 100 MG Oral Capsule 12/22/2020 - 01/21/2021 Pro vider: Danish Hartman MD Diagnosis: 1-2 tablets daily, as needed, AFTER SURGERY Last Documented On 1 3:28PM By Danish Hartman ; [facility] Doxycycline Hyclate 100 MG O ral Capsule 12/22/2020 - 12/25/2020 Provider: Danish Hartman MD Diagnosis: twice a day Last Documented On 1 3:27PM By Danish Hartman ; [facility] Aspirin Adult Low Strength 8 1 MG Oral Tablet Delayed Release 12/22/2020 - 02/05/2021 Provider: Danish Hartman MD Diagnosis: twice a day Last Documented On 1 3:26PM By Danish Hartman ; [facility] Zofran 4 MG Oral Tablet 12/22/2020 - 01/21/2021 Provid er: Danish Hartman MD Diagnosis: 1 po q 6 to 8 hrs prn pain t alex 1 tablet every 6-8hrs for nausea, AFTER SURGERY Last Documented On 1 3:26PM By Danish Hartman ; [facility] Ultram 50 MG Oral Tablet 12/22/2020 - 01/01/2021 Provi cleo: Danish Hartman MD Diagnosis: 1-2 p o q 6-8h take 1-2 tabl ets every 6-8 hours for breakthrough post op pain Last Documented On 1 3:35PM By Danish Hartman ; [facility] oxyCODONE HCl 5 MG Oral Tablet 12/22/2020 - 12/27/2020 Provider: Danish Hartman MD Diagnosis: take 1-2 tablets every 4-6hrs for post op pain Last Documented On 1 3:35PM By Danish Hartman ; [facility] oxyCODONE HCl 5 MG Oral Tablet [...] 01/12/2021 Last Documented On 2 1:03PM ; [facility] Not exercising regularly 01/12/2021 Last Documented On 2 1:03PM ; [facility] Not using drugs 01/12/2021 Last Documented On 2 1:03PM ; [facility] Non-smoker 10/06/2020 Last Documented On 2 1:03PM ; [facility] No tobacco use 10/08/2018 Last Documented On 2 1:03PM ; [facility] Smoking status : Never smoker 10/08/2018 Last Documented On 2 1:03PM ; [facility] Procedures and Surgical History Includes: Procedures from this encounter Procedures Code Diagnosis Performing Provider Service L ocation Service Date use of tobacco assessment performed 1000F Last Documented On 2 1:04PM ; [facility] Medical History Includes: Medical History addressed during this encounter Description Last Updated Anemia 01/12/2021 Last Documented On 2 1:03PM ; [facility] Arthritis 01/12/2021 Last Documented On 2 1:03PM ; [facility] History of diabetes mellitus 01/12/2021 Last Documented On 2 1:03PM ; [facility] History of diverticulitis of colon 01/12 Last Documented On 2 1:03PM ; [facility] History of Gallbladder 01/12/2021 Last Documented On 2 1:03PM ; [facility] History of heart disease 01/12/2021 Last Documented On 2 1:03PM ; [facility] History of Rheumatology 01/12/2021 Last Documented On 2 1:03PM ; [facility] Hypertension 01/12/2021 Last Documented On 2 1:03PM ; [facility] Past Surgical History: RTC RT ~PKR LT ~H ernia 01/12/2021 Last Documented On 2 1:03PM ; [facility] Sleep Apnea 01/12/2021 Last Documented On 2 1:03PM ; [facility] Total knee arthroplasty 01/12/2021 Last Documented On 2 1:03PM ; [facility] Recent immunization for flu 2020 021 Last Documented On 2 1:03PM ; [facility] Recent immunization for pneumococcal pne umonia 2020 01/12/2021 Last Documented On 2 1:03PM ; [facility] Family History Includes: Family History addressed during this encounter Description Last Updated Diabetes mellitus 01/12/2021 Last Documented On 2 1:03PM ; [facility] Family history of cancer 01/12/2021 Last Documented On 2 1:03PM ; [facility] Family history of heart disease 01/13/20 21 Last Documented On 2 1:03PM ; [facility] Family history of hypertension 1 Last Documented On 2 1:03PM ; [facility] Family history of osteoporosis Last Documented On 2 1:03PM ; [facility] Review of Systems Includes: Review [...] Active Last Documented On 2 1:07PM ; [facility] Encounters Encounter Provider Location Date Check-In Time Check- Out Time Diagnosis Follow Up Baldemar Mota PA-C [facility] 2 12:52PM 1:30PM Insurance Includes: Active Insurance Policies Plan Name Member ID Group # Subscriber Relationship Effect jim Dates 1 - [facility] [id number] [place] III Self Clinical Notes Includes: Clinical Notes from this encounter No Clinical Notes Recorded
--- OUTSIDE RECORDS SUMMARY | 2024-07-23 19:18 | XMS_ITS ---
Care Plan - [facility], [facility] Created on: July 23, 2024 Mable Alford III : 1950 Sex: Male Author Organization [facility] Address [address] [place] [address] Phone Care Team Providers Care Deputy Brand Inspector Name Role Phone Jonah Anthony APRN Primary Care Provider [phone] Minnie VILLALOBOS, Danish [facility] [phone]
--- NOTE | 2024-07-23 19:19 | CT_ITS ---
PROCEDURE INFORMATION: Exam: CT Head Without Contrast Exam date and time: 07/23/2024 8:34 PM Age: 74 years old Clinical indication: Altered mental status/memory loss; Additional info: AMS TECHNIQUE: Imaging protocol: Computed tomography of the head without contrast. Radiation optimization: All CT scans at this facility use at least one of these dose optimization techniques: automated exposure control; mA and/or kV adjustment per patient size (includes targeted exams where dose is matched to clinical indication); or iterative reconstruction. COMPARISON: MR HEAD/BRAIN WO/W CON 08/28/2023 4:45 PM FINDINGS: Brain: No hemorrhage. Unremarkable white matter. No mass effect. Cerebral ventricles: No ventriculomegaly. Paranasal sinuses: Visualized sinuses are unremarkable. No fluid levels. Mastoid air cells: Visualized mastoid air cells are well aerated. Bones: Unremarkable. No acute fracture. Soft tissues: Unremarkable. IMPRESSION: No acute intracranial abnormality.
--- NOTE | 2024-07-23 19:19 | XR_ITS ---
PROCEDURE INFORMATION: Exam: XR Chest Exam date and time: 07/23/2024 8:27 PM Age: 74 years old Clinical indication: Other: Eval pna TECHNIQUE: Imaging protocol: Radiologic exam of the chest. Views: 1 view. COMPARISON: CR XR CHEST PORTABLE 06/05/2024 10:52 AM FINDINGS: Lungs: Coarse interstitial lung markings likely chronic. Granulomatous changes. Bibasilar atelectasis. Low lung volumes. No consolidation. Pleural spaces: Unremarkable. No pleural effusion. No pneumothorax. Heart/Mediastinum: Unremarkable. No cardiomegaly. Bones/joints: Unremarkable. IMPRESSION: No acute findings.
--- NOTE | 2024-07-23 19:29 | ECG_ITS ---
APPROVED REPORT Exam: Resting ECG HR:133 bpm ECG Measurements Heart Rate 133 AXES FL 126 P 69 QRSd 83 QRS 67 QT 294 T 66 QTc 372 Conclusion SINUS TACHYCARDIA MODERATE ST DEPRESSION [0.05+ mV ST DEPRESSION] ABNORMAL ECG ST elevation in aVR Electronically signed by : Blair Duffy, 07/23/2024 23:04:21
--- NOTE | 2024-07-23 19:32 | PC.NURSE ---
Pateitns FSBS is 160.
[2024-07-23 19:37] LABS: POC Glucose,Bedside 160 (70-110)
[2024-07-23] MEDS: VANCOMYCIN/WATER FOR INJ (PEG) 1.75 GM/350 ML PIGGYBACK IV (19:44)
[2024-07-23] MEDS: CEFTRIAXONE SODIUM 2 GM in 0.9 % SODIUM CHLORIDE 100 ML IV (19:44)
[2024-07-23] MEDS: LACTATED RINGERS 1000ML 1,000 ML 999 ML IV ×3 (19:44→21:14)
[2024-07-23 19:46] LABS: Lactate Venous 3.7 mmol/L (0.4-2.0); VBG Base Excess -5.3 mmol/L (-2.4-2.3); VBG HCO3 18.7 mmol/L (23-30); VBG Oxygen Saturation 51.7 % (50-70); VBG PCO2 27.3 mmol/L (35-51); VBG PH 7.45 mmol/L (7.31-7.41); VBG PO2 25.8 mmol/L (28-40); VBG Total CO2 19.5 mmol/L (23-27)
[2024-07-23] MEDS: VANCOMYCIN CONSULT REQUEST 1 EACH NOTAPPLIC (19:47)
[2024-07-23 19:51] LABS: Basophils # 0.1 K/mm3 (0-0.2); Basophils % 0.3 % (0.1-2.0); Hematocrit 42.2 % (42.0-52.0); Hemoglobin 14.1 g/dL (14.1-18.0); Lymphocytes # 0.7 K/mm3 (0.7-4.5); Lymphocytes % 2.9 % (10-50); Mean Corpuscular HGB Conc 33.4 g/dL (31.8-35.4); Mean Corpuscular Hemoglobin 26.7 pg (27.0-31.2); Mean Corpuscular Volume 79.9 fl (80-94); Mean Platelet Volume 10.4 fl (7.4-10.4); Monocytes # 0.6 K/mm3 (0.1-1.0); Monocytes % 2.8 % (1.7-9.3); Neutrophils # 21.6 K/mm3 (1.8-7.8); Nucleated Red Blood Cells # 0 10^3/uL; Nucleated Red Blood Cells % 0 %; Platelet Count 207 K/mm3 (142-424); Red Blood Count 5.28 M/mm3 (4.60-6.20); Red Cell Distribution Width 14.6 % (11.5-17.5); Red Cell Distribution Width-SD 41.4 fL; White Blood Count 23.2 K/mm3 (4.8-10.8)
[2024-07-23 19:52] LABS: Coronavirus 19, PCR Not Detected (NotDetected); Influenza A, PCR Not Detected (NotDetected); Influenza B, PCR Not Detected (NotDetected)
[2024-07-23 19:54] LABS: MANUAL DIFFERENTIAL MANUAL DIFFERENTIAL (MANUAL DIFF)
[2024-07-23 20:03] LABS: Alanine Aminotransferase 36 U/L (12-78); Albumin Level 4.2 g/dl (3.5-5.0); Albumin/Globulin Ratio 1.4 (1.1-1.8); Alkaline Phosphatase 91 U/L (38-126); Anion Gap 18.5 mEq/L (5-15); Aspartate Amino Transferase 43 U/L (17-59); Bilirubin,Total 2.9 mg/dl (0.2-1.3); Blood Urea Nitrogen 21 mg/dl (9-20); Calcium 9.3 mg/dl (8.4-10.2); Carbon Dioxide 19 mmol/L (22.0-30.0); Chloride 104 mmol/L (98-107); Creatinine Clearance Estimated 51 mL/min (50-200); Estimated Glomerular Filt Rate 40 ml/min (>60); GFR (African American) 48 ML/MIN (>60); Globulin 2.9 g/dL (1.3-3.2); Glucose 167 mg/dl (74-100); Lipase 50 U/L (23-300); Potassium 4.5 mmoL/L (3.5-5.1); Sodium 137 mmol/L (136-145); Total Protein,Serum 7.1 g/dl (6.3-8.2)
--- NOTE | 2024-07-23 20:03 | PC.NURSE ---
1930hrs- established 18ga IV in R AC labs drawn and sent along with lactic and first set of cultures. 1940hrs- patient administered first liter bolus of his sepsis bolus 1949hrs- second line established 18ga IV in L AC. 1954hrs- Ceftraxione started 2005hrs- patient adminsitered vancomycin 1.75grams in 350mL's
[2024-07-23 20:12] LABS: NT Pro Brain Natriuretic Pep. 746 pg/mL (0-125)
[2024-07-23 20:18] LABS: Troponin I 1.02 ng/ml (0.00-0.034)
--- NOTE | 2024-07-23 20:21 | ECG_ITS ---
APPROVED REPORT Exam: Resting ECG HR:126 bpm ECG Measurements Heart Rate 126 AXES AZ 139 P 65 QRSd 85 QRS 67 QT 318 T 65 QTc 393 Conclusion SINUS TACHYCARDIA MODERATE ST DEPRESSION [0.05+ mV ST DEPRESSION] ABNORMAL ECG ST elevation in aVR Electronically signed by : Blair Duffy, 07/23/2024 23:04:41
[2024-07-23 20:25] LABS: Lymphocytes % 5 % (10-50); Neutrophils % 95 % (42-76); Total Cells Counted 100
[2024-07-23 20:26] LABS: Platelet Estimate Normal; RBC Morphology Normal
[2024-07-23] MEDS: IOPAMIDOL-370 (76%);100ML BOTTLE 70 ML IV (20:49)
[2024-07-23] MEDS: 0.9 % SODIUM CHLORIDE 50 ML VIAL IV (20:49)
[2024-07-23] MEDS: SODIUM CHLORIDE 0.9% 10ML SYR (RAD ONLY) 10 ML IV (20:49)
[2024-07-23] MEDS: ACETAMINOPHEN 500MG TAB 1000 MG PO (21:14)
--- NOTE | 2024-07-23 21:41 | PC.NURSE ---
Patient arrived to floor via stretcher from ED at 21:40.
[2024-07-23 21:45] LABS: Procalcitonin 4.62 ng/mL (0.0-2.0)
--- NOTE | 2024-07-23 21:51 | P.HP_ITS ---
History of Present Illness *Admission Date: 07/23/24 *Reason for visit:: Leg swelling *History of present illness: 74-year-old male presenting to ER with acute encephalopathy. History is largely provided by record review, ER consultation. History is largely limited due to patient's current condition. Reportedly his found him confused, speaking incoherently, laying in his own feces and emesis. Last known normal was yesterday. Having fevers and chills. She brought him to the ER where it was noted that he had significant erythema and swelling of his right lower extremity. On arrival, tachycardic hypotensive. Bedside echo hyperdynamic LVEF with collapsible IVC. EKG sinus tachycardia with anterolateral ST depressions. CT head no acute findings. Patient received 3 L IV fluids with improvement of blood pressure. Started on vancomycin and ceftriaxone. Hospitalist contacted for admission. Patient largely complaining of fever and chills is not endorsing any lower extremity pain at this time. past medical history of atrial flutter on Xarelto (currently sinus ) , latent tuberculosis, rheumatoid arthritis, CAD (s/p pci, Left main, LAD, circumflex, ramus) most recent 05/2024, peripheral arterial disease, diabetes, lymphedema. allergies penicillin, rxn rash non smoker no etoh or drugs PFSH PFS Disclaimer: The information contained in this section may have been updated after the patient was seen, as this information can be updated by other users. Medical History Vocal cord edema Ringing in right ear Chronic hoarseness Globus sensation Vertigo Recurrent vertigo upon turning head toward the left associated with tinnitus. Diverticulitis IBS (irritable bowel syndrome) Latent tuberculosis Rheumatoid arthritis Viral gastroenteritis Laceration of face Patient is not currently bleeding Atypical angina NSTEMI (non-ST elevated myocardial infarction) Atrial flutter On Xarelto Asbestos exposure Tachycardia Abnormal ECG Preoperative testing Episodic confusion He was referred to epilepsy program, EMU but has decided to cancel the appointment Allergic rhinitis Dyspnea on exertion Latent tuberculosis by blood test Seen by pulmonology at [facility] and prescribed INH, RFP, B6 but he never took the medicine as prescribed Restrictive lung disease Left sided abdominal pain Left shoulder strain Left groin pain Claustrophobia Chronic cough Cognitive complaints 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, word finding difficulty Edema of both lower extremities Decreased pedal pulses Non-healing ulcer of foot Right 3rd distal tip DFU Decreased ROM of right shoulder Right shoulder pain Right shoulder injury Pes planus of both feet Skin lesion Impotence Low back pain Left against medical advice Memory loss Chronic SI joint pain Radiculopathy Neuropathic pain Leg pain, posterior Kidney stone Ingrown toenail of right foot Pre-ulcerative calluses Splinter of toe of left foot Pain of left great toe Cellulitis of great toe of right foot Acute bacterial bronchitis Incurved toenail Diabetes mellitus HA1c- 7.3% 06/06/24 Onychomycosis Pain in both feet Callus of foot Diabetic foot ulcer Acute febrile illness SIRS (systemic inflammatory response syndrome) Left against medical advice Lower extremity edema Epistaxis Encounter for pre-operative cardiovascular clearance Sepsis Urinary incontinence Weakness Cellulitis, leg Obesity (BMI 30-39.9) Acute delirium Cellulitis Severe sepsis SIRS (systemic inflammatory response syndrome) Physical deconditioning Bacterial pneumonia Hypokalemia Bronchitis due to COVID-19 virus Pneumonia due to COVID-19 virus COVID-19 virus infection Exposure to COVID-19 virus Viral syndrome Acute bronchitis Hematuria Kidney stone on right side Multiple renal cysts Cough Diastolic dysfunction Mental status change resolved HTN (hypertension) Dyspnea SOB (shortness of breath) HHD (hypertensive heart disease) Pre-op evaluation Microalbuminuria Enlarged prostate History of IBS Diabetes Acquired lymphedema Surgical History History of cardiac cath History of total right knee replacement History of rotator cuff surgery History of coronary artery stent placement History of cholecystectomy Hx of total knee arthroplasty Family History Other Cancer Cerebral palsy Dementia Diabetes Social History Smoking Status: Never smoker alcohol intake: never counseling provided: none substance use type: denies use current occupational status: employed and retired Travel in the last 8 weeks?: None household members: spouse housing: house caffeine: Yes Have you lived/traveled outside [place] in past 30 days?: No Contact w/someone who lives/traveled outside US past 30 days?: No Exposure to someone with infectious disease in past 14 days?: No Do you have a fever (greater than 100.4 F or 38 C)?: No Have you tested positive for COVID-19?: No Exposed to someone with COVID-19 in past 14 days?: No Do you have a sore throat?: No Do you have a cough?: No Do you have any weakness?: No Do you have any diarrhea?: No Are you experiencing any unusual bleeding?: No Do you have any muscle aches/pain?: No Do you have any abdominal pain?: No Are you experiencing loss of taste or smell?: No Other Medical History Have you received the Flu Vaccine for this season: No Have you received the Pneumonia Vaccine: No Review of Systems Review of Systems Review of systems:: unable to obtain Constitutional Constitutional: Reports fever(s) Meds Home Medications and Allergies Home Medications ?Medication ?Instructions ?Recorded ?Confirmed ?Type albuterol sulfate 90 mcg/actuation 2 puff inhalation Q6HP PRN short 03/05/24 07/08/24 History aerosol inhaler of breath furosemide 20 mg tablet 20 mg PO DAILY 03/05/24 07/08/24 History rivaroxaban 15 mg tablet (Xarelto) 15 mg PO DAILY 03/05/24 07/08/24 History tamsulosin 0.4 mg capsule 0.4 mg PO DAILY 03/05/24 07/08/24 History tramadol 50 mg tablet 50 mg PO TID 03/15/24 07/08/24 History metformin 1,000 mg tablet 1,000 mg PO BID #60 tabs 05/29/24 07/08/24 Rx doxycycline hyclate 100 mg capsule 100 mg PO BID infection 14 days 06/10/24 07/08/24 Rx #28 caps atorvastatin 40 mg tablet 40 mg PO HS 30 days #90 tabs 06/25/24 07/08/24 Rx metoprolol succinate 25 mg 25 mg PO DAILY 30 days #90 tabs 06/25/24 07/08/24 Rx tablet,extended release 24 hr tirzepatide 5 mg/0.5 mL 5 mg (0.5 mL) SQ WEEKLY 90 days 06/28/24 07/08/24 Rx subcutaneous pen injector #6.5 mL (Mckayla) diclofenac sodium 1 % topical gel 4 g topical QID PRN pain 30 days 07/08/24 07/08/24 Rx #100 grams doxycycline hyclate 100 mg capsule 100 mg PO BID infection 10 days 07/08/24 07/08/24 Rx #20 caps lidocaine 5 % topical ointment 1 applic topical BID PRN pain #50 07/08/24 07/08/24 Rx grams omeprazole 40 mg capsule,delayed 40 mg PO DAILY GERD 90 days #90 07/16/24 Rx release caps clopidogrel 75 mg tablet See Rx Instructions .Route 07/22/24 Rx .COMPLEX #30 tabs New Prescriptions to Start Prescriptions: Allergies Allergy/AdvReac Type Severity Reaction Status Date / Time Penicillins (PENICILLINS) Allergy Unknown I-ITCHING Verified 07/08/24 14:38 Exam Data for Last 24 hours Vital signs and Labs for Last 24 Hours: Temp Pulse Resp BP Pulse Ox O2 Del Method 98.4 F 129 H 20 108/64 L 95 Room Air 07/23/24 19:17 07/23/24 19:37 07/23/24 19:17 07/23/24 19:37 07/23/24 19:37 07/23/24 19:17 Laboratory Results - last 24 hr 07/23/24 19:30: POC Glucose 160 H 07/23/24 19:37: WBC 23.2 H*, RBC 5.28, Hgb 14.1, Hct 42.2, MCV 79.9 L, MCH 26.7 L, MCHC 33.4, RDW 14.6, Plt Count 207, MPV 10.4, Neut % (Auto) 93.0 H, Lymph % (Auto) 2.9 L, [place] % (Auto) 2.8, Eos % (Auto) 0.0 L, Baso % (Auto) 0.3, Neut # (Auto) 21.6 H, Lymph # (Auto) 0.7, [place] # (Auto) 0.6, Eos # (Auto) 0.0, Baso # (Auto) 0.1, Total Counted 100, Neutrophils % (Manual) 95 H, Lymphocytes % (Manual) 5 L, Platelet Estimate Normal, RBC Morphology Normal, Sodium 137, Potassium 4.5, Chloride 104, Carbon Dioxide 19 L, Anion Gap 18.5 H, BUN 21 H, Creatinine 1.70 H, Estimated Creat Clear 51, Estimated GFR 40 L, Est GFR ( Amer) 48 L, Glucose 167 H, Calcium 9.3, Total Bilirubin 2.9 H, AST 43, ALT 36, Alkaline Phosphatase 91, Troponin I 1.02 H, NT-Pro-B Natriuret Pep 746 H , Total Protein 7.1, Albumin 4.2, Globulin 2.9, Albumin/Globulin Ratio 1.4, Lipase 50, Procalcitonin 4.62 H 07/23/24 19:42: VBG pH 7.45 H, VBG pCO2 27.3 L, VBG pO2 25.8 L, VBG HCO3 18.7 L, VBG Total CO2 19.5 L, VBG O2 Saturation 51.7, VBG Base Excess -5.3 L, VBG Lactic Acid 3.7 H 07/23/24 19:46: SARS-CoV-2 (PCR) Not detected, Influenza A Untype (PCR) Not det ected, Influenza Type B (PCR) Not detected I & O for Last 24 hours: Intake & Output 07/20/24 07/21/24 07/22/24 07/23/24 23:59 23:59 23:59 23:59 Weight 92.079 kg Constitutional Constitutional: mild distress *Routine HEENT Exam Head: Present normocephalic and atraumatic Eye: Present EOMI ENT: Present mucous membranes dry *Routine Neck Exam Neck: Absent JVD *Routine Respiratory Exam Respiratory: Absent accessory muscle use or decreased breath sounds *Routine Cardiovascular Exam Cardiovascular: Present RRR, Normal S1, Normal S2 and tachycardia *Routine Abdominal Exam Abdominal: Present soft and normoactive bowel sounds *Routine Rectal Exam Rectal:: deferred *Routine Genitalia Exam Genitalia:: deferred *Routine Extremities Exam Comments: Right lower extremity edema and erythema extending from foot to knee. Nontender to palpation. *Routine Skin Exam Skin: Present erythema *Routine Neurological Exam Neurological: Present alert and altered mental status; Absent oriented X3 Routine Psychiatric Exam Psychiatric: Present cooperative Assessment and Plan *Assessment and plan (1) Cellulitis: Status: Acute Qualifiers: Laterality: right Site of cellulitis: extremity Site of cellulitis of extremity: lower extremity Qualified Code(s): L03.115 - Cellulitis of right lower limb Category: Medical Code(s): L03.90 - Cellulitis, unspecified (2) Sepsis: Status: Acute Qualifiers: Acute renal failure type: unspecified Sepsis acute organ dysfunction status: with acute organ dysfunction Sepsis type: sepsis due to unspecified organism Severe sepsis acute organ dysfunction type: acute renal failure Severe sepsis shock status: with septic shock Qualified Code(s): A41.9 - Sepsis, unspecified organism; R65.21 - Severe sepsis with septic shock; N17.9 - Acute kidney failure, unspecified Category: Medical Code(s): A41.9 - Sepsis, unspecified organism (3) AMS (altered mental status): Status: Acute Qualifiers: Altered mental status type: unspecified Qualified Code(s): R41.82 - Altered mental status, unspecified Category: Medical Code(s): R41.82 - Altered mental status, unspecified (4) T2DM (type 2 diabetes mellitus): Status: Chronic Qualifiers: Diabetes mellitus nursing home insulin use: without nursing home use Diabetes mellitus complication status: with circulatory complication Diabetes mellitus complication detail: with other circulatory complications Qualified Code(s): E11.59 - Type 2 diabetes mellitus with other circulatory complications Category: Medical Code(s): E11.9 - Type 2 diabetes mellitus without complications (5) Peripheral artery disease: Status: Chronic Category: Medical Code(s): I73.9 - Peripheral vascular disease, unspecified (6) Lymphedema of extremity: Status: Acute Category: Medical Code(s): I89.0 - Lymphedema, not elsewhere classified (7) HTN (hypertension): Status: Acute Qualifiers: Hypertension type: essential hypertension Qualified Code(s): I10 - Essential (primary) hypertension Category: Medical Code(s): I10 - Essential (primary) hypertension (8) Atrial flutter: Problem Comment: On Xarelto Status: Resolved Qualifiers: Atrial flutter type: typical Qualified Code(s): I48.3 - Typical atrial flutter Category: Medical Code(s): I48.92 - Unspecified atrial flutter Plan Admitted with sepsis secondary to right lower extremity cellulitis. Has received antibiotics and multiple fluid boluses with improvement of hypotension. NSTEMI type II given significant tachycardia 85% max heart rate with ST depressions anterolaterally, all secondary to sepsis and demand ischemia. Will monitor in ICU overnight if improvement can downgrade to stepdown. Sepsis Right lower extremity cellulitis agma - Vancomycin - Ceftriaxone - Improved BP with fluid bolus, will continue fluids, anticipate heart rate will improve with fever control and volume expansion - Follow-up blood cultures - On anticoagulation, however given acute change will eval with venous duplex Acute encephalopathy - CT no acute findings, suspect all related to sepsis, improving with supportive management NSTEMI, type II - Echo - tele - cardiology consult - Continue current medications GUILLERMO - Likely prerenal, continue IV fluids, will monitor DVT prophylaxis -Xarelto, resume in the morning
[2024-07-23 22:17] LABS: POC Glucose,Bedside 152 (70-110)
[2024-07-23 23:08] LABS: Troponin I 1.76 ng/ml (0.00-0.034)
[2024-07-23] MEDS: 0.9 % SODIUM CHLORIDE 1000ML 1,000 ML 999 ML IV (23:22)
[2024-07-23 23:43] LABS: Microscopic, Urine URINE MICROSCOPIC (MICROSCOPIC)
[2024-07-23 23:46] LABS: Appearance,Urine CLEAR (Clear); Bilirubin,Urine Negative (Negative); Blood, Urine 1+ (Negative); Color,Urine YELLOW (Yellow); Glucose,Urine (UA) Negative (Negative); Ketones,Urine 2+ (Negative); Leukocyte Esterase,Urine Negative (Negative); Nitrate,Urine Negative (Negative); PH,Urine 5.5 (5.0-8.5); Protein,Urine Negative (Negative); Specific Gravity, Urine 1.025 (1.005-1.030); Urobilinogen,Urine 0.2 EU/dl (0.2)
[2024-07-23 23:47] LABS: Reflex Lactic Add Lactic Reflex
[2024-07-23 23:57] LABS: Mucus,Urine 1+ /lpf
[2024-07-24] VITALS (23 sets, daily range): BP systolic 95–167; BP diastolic 45–92; PULSE 80–118; RESP 11–23; TEMP 36.6–39.4; O2SAT 93–100; BMI 30.9
[2024-07-24 00:02] LABS: Lactic Acid Follow Up (RFLX 1) 3.2 mmol/L (0.7-2.1)
[2024-07-24] MEDS: 0.9 % SODIUM CHLORIDE 1000ML 1,000 ML 150 ML IV ×2 (00:32→07:36)
[2024-07-24 00:56] LABS: Reflex Lactic (2 hrs) Add Lactic Reflex
[2024-07-24] MEDS: ACETAMINOPHEN 325MG TAB 650 MG PO ×4 (01:20→21:05)
[2024-07-24 01:39] LABS: Lactic Acid Follow up (RFLX 2) 1.3 mmol/L (0.7-2.1)
[2024-07-24 02:06] LABS: Troponin I 2.86 ng/ml (0.00-0.034)
[2024-07-24 04:23] LABS: Basophils # 0.1 K/mm3 (0-0.2); Basophils % 0.2 % (0.1-2.0); Eosinophils # 0.1 Kmm3 (0.0-0.4); Eosinophils % 0.5 % (0.1-12.0); Hematocrit 32.8 % (42.0-52.0); Lymphocytes # 0.5 K/mm3 (0.7-4.5); Lymphocytes % 2.3 % (10-50); Mean Corpuscular HGB Conc 34.5 g/dL (31.8-35.4); Mean Corpuscular Hemoglobin 27.5 pg (27.0-31.2); Mean Corpuscular Volume 79.8 fl (80-94); Mean Platelet Volume 10.2 fl (7.4-10.4); Monocytes # 0.6 K/mm3 (0.1-1.0); Monocytes % 3.1 % (1.7-9.3); Neutrophils # 18.7 K/mm3 (1.8-7.8); Neutrophils % 92.6 % (37.0-80.0); Nucleated Red Blood Cells # 0 10^3/uL; Nucleated Red Blood Cells % 0 %; Platelet Count 142 K/mm3 (142-424); Red Blood Count 4.11 M/mm3 (4.60-6.20); Red Cell Distribution Width 14.7 % (11.5-17.5); Red Cell Distribution Width-SD 42.4 fL; White Blood Count 20.2 K/mm3 (4.8-10.8)
[2024-07-24 04:25] LABS: MANUAL DIFFERENTIAL MANUAL DIFFERENTIAL (MANUAL DIFF)
[2024-07-24 04:27] LABS: Hemoglobin 11.4 g/dL (14.1-18.0)
[2024-07-24 04:33] LABS: Lactic Acid 1.1 mmol/L (0.7-2.1)
[2024-07-24 04:48] LABS: Troponin I 5.88 ng/ml (0.00-0.034)
--- NOTE | 2024-07-24 05:19 | ECG_ITS ---
APPROVED REPORT Exam: Resting ECG HR:95 bpm ECG Measurements Heart Rate 95 AXES PA 146 P 65 QRSd 93 QRS 72 QT 374 T 70 QTc 426 Conclusion SINUS RHYTHM NORMAL ECG UNCONFIRMED REPORT Electronically signed by : Walker Hill MD 07/25/2024 11:32:37
[2024-07-24 05:20] LABS: Magnesium 1.4 mg/dl (1.6-2.3); Phosphorous 3.5 mg/dl (2.5-4.5)
[2024-07-24 05:53] LABS: Lymphocytes % 5 % (10-50); Monocytes % 3 % (2-9); Neutrophils % 92 % (42-76); Total Cells Counted 100
[2024-07-24 05:56] LABS: Platelet Estimate Normal; RBC Morphology Normal
[2024-07-24 05:58] LABS: POC Glucose,Bedside 142 (70-110)
--- NOTE | 2024-07-24 06:49 | PC.NURSE ---
Pt seems more alert this AM. Pt had fever when arrived to floor, highest 102.1 rectally. Temp now WNL. Pt c/o PASTOR 1x during shift, tylenol administered. Call light within reach. at bedside.
--- NOTE | 2024-07-24 07:34 | EXP.PHA.CONS ---
Pharmacy Consult Date: 07/24/24 Time: 07:35 Referring provider: DR. HILLMAN Reason for Consult:: VANCOMYCIN DOSING Allergies Allergy/AdvReac Type Severity Reaction Status Date / Time Penicillins (PENICILLINS) Allergy Unknown I-ITCHING Verified 07/08/24 14:38 Home Medications ?Medication ?Instructions ?Recorded ?Confirmed ?Type albuterol sulfate 90 mcg/actuation 2 puff inhalation Q6HP PRN short 03/05/24 07/23/24 History aerosol inhaler of breath furosemide 20 mg tablet 20 mg PO DAILY 03/05/24 07/23/24 History rivaroxaban 15 mg tablet (Xarelto) 15 mg PO DAILY 03/05/24 07/23/24 History tamsulosin 0.4 mg capsule 0.4 mg PO DAILY 03/05/24 07/23/24 History tramadol 50 mg tablet 50 mg PO TID 03/15/24 07/23/24 History metformin 1,000 mg tablet 1,000 mg PO BID #60 tabs 05/29/24 07/23/24 Rx atorvastatin 40 mg tablet 40 mg PO HS 30 days #90 tabs 06/25/24 07/23/24 Rx metoprolol succinate 25 mg 25 mg PO DAILY 30 days #90 tabs 06/25/24 07/23/24 Rx tablet,extended release 24 hr tirzepatide 5 mg/0.5 mL 5 mg (0.5 mL) SQ WEEKLY 90 days 06/28/24 07/23/24 Rx subcutaneous pen injector #6.5 mL (Mckayla) diclofenac sodium 1 % topical gel 4 g topical QID PRN pain 30 days 07/08/24 07/23/24 Rx #100 grams lidocaine 5 % topical ointment 1 applic topical BID PRN pain #50 07/08/24 07/23/24 Rx grams omeprazole 40 mg capsule,delayed 40 mg PO DAILY GERD 90 days #90 07/16/24 07/23/24 Rx release caps clopidogrel 75 mg tablet See Rx Instructions .Route 07/22/24 07/23/24 Rx .COMPLEX #30 tabs New Prescriptions to Start Prescriptions: Height: 1.75 m Weight: 94.6 kg Laboratory Results:: Laboratory Results - last 24 hr 07/23/24 19:30: POC Glucose 160 H 07/23/24 19:37: WBC 23.2 H*, RBC 5.28, Hgb 14.1, Hct 42.2, MCV 79.9 L, MCH 26.7 L, MCHC 33.4, RDW 14.6, Plt Count 207, MPV 10.4, Neut % (Auto) 93.0 H, Lymph % (Auto) 2.9 L, [place] % (Auto) 2.8, Eos % (Auto) 0.0 L, Baso % (Auto) 0.3, Neut # (Auto) 21.6 H, Lymph # (Auto) 0.7, [place] # (Auto) 0.6, Eos # (Auto) 0.0, Baso # (Auto) 0.1, Total Counted 100, Neutrophils % (Manual) 95 H, Lymphocytes % (Manual) 5 L, Platelet Estimate Normal, RBC Morphology Normal, Sodium 137, Potassium 4.5, Chloride 104, Carbon Dioxide 19 L, Anion Gap 18.5 H, BUN 21 H, Creatinine 1.70 H, Estimated Creat Clear 51, Estimated GFR 40 L, Est GFR ( Amer) 48 L, Glucose 167 H, Calcium 9.3, Total Bilirubin 2.9 H, AST 43, ALT 36, Alkaline Phosphatase 91, Troponin I 1.02 H, NT-Pro-B Natriuret Pep 746 H, Total Protein 7.1, Albumin 4.2, Globulin 2.9, Albumin/Globulin Ratio 1.4, Lipase 50, Procalcitonin 4.62 H 07/23/24 19:42: VBG pH 7.45 H, VBG pCO2 27.3 L, VBG pO2 25.8 L, VBG HCO3 18.7 L, VBG Total CO2 19.5 L, VBG O2 Saturation 51.7, VBG Base Excess -5.3 L, VBG Lactic Acid 3.7 H 07/23/24 19:46: SARS-CoV-2 (PCR) Not detected, Influenza A Untype (PCR) Not detected, Influenza Type B (PCR) Not detected 07/23/24 22:08: POC Glucose 152 H 07/23/24 22:34: Lactate 3.2 H, Troponin I 1.76 H 07/23/24 23:37: Urine Color Yellow, Urine Appearance Clear, Urine pH 5.5, Ur Specific [place] 1.025, Urine Protein Negative, Urine Glucose (UA) Negative, Urine Ketones 2+, Urine Blood 1+ A, Urine Nitrate Negative, Urine Bilirubin Negative, Urine Urobilinogen 0.2, Ur Leukocyte Esterase Negative, Urine RBC 3-5, Urine WBC 3-5, Ur Squamous Epith Cells 3-5, Urine Mucus 1+ 07/24/24 01:13: Lactate 1.3, Troponin I 2.86 H 07/24/24 04:17: WBC 20.2 H*, RBC 4.11 L, Hgb 11.4 L D, Hct 32.8 L, MCV 79.8 L, MCH 27.5, MCHC 34.5, RDW 14.7, Plt Count 142 D, MPV 10.2, Neut % (Auto) 92.6 H, Lymph % (Auto) 2.3 L, [place] % (Auto) 3.1, Eos % (Auto) 0.5, Baso % (Auto) 0.2, Neut # (Auto) 18.7 H, Lymph # (Auto) 0.5 L, [place] # (Auto) 0.6, Eos # (Auto) 0.1, Baso # (Auto) 0.1, Total Counted 100, Neutrophils % (Manual) 92 H, Lymphocytes % (Manual) 5 L, Monocytes % (Manual) 3, Platelet Estimate Normal, RBC Morphology Normal, Lactate 1.1, Phosphorus 3.5, Magnesium 1.4 L, Troponin I 5.88 H 07/24/24 05:49: POC Glucose 142 H Medical History: Medical History (Updated 07/23/24 @ 21:07 by Blair Duffy MD) Vocal cord edema Ringing in right ear Chronic hoarseness Globus sensation Vertigo Diverticulitis IBS (irritable bowel syndrome) Latent tuberculosis Rheumatoid arthritis Viral gastroenteritis Laceration of face Atypical angina NSTEMI (non-ST elevated myocardial infarction) Atrial flutter Asbestos exposure Tachycardia Abnormal ECG Preoperative testing Episodic confusion Allergic rhinitis Dyspnea on exertion Latent tuberculosis by blood test Restrictive lung disease Left sided abdominal pain Left shoulder strain Left groin pain Claustrophobia Chronic cough Cognitive complaints Edema of both lower extremities Decreased pedal pulses Non-healing ulcer of foot Decreased ROM of right shoulder Right shoulder pain Right shoulder injury Pes planus of both feet Skin lesion Impotence Low back pain Left against medical advice Memory loss Chronic SI joint pain Radiculopathy Neuropathic pain Leg pain, posterior Kidney stone Ingrown toenail of right foot Pre-ulcerative calluses Splinter of toe of left foot Pain of left great toe Cellulitis of great toe of right foot Acute bacterial bronchitis Incurved toenail Diabetes mellitus Onychomycosis Pain in both feet Callus of foot Diabetic foot ulcer Acute febrile illness SIRS (systemic inflammatory response syndrome) Left against medical advice Lower extremity edema Epistaxis Encounter for pre-operative cardiovascular clearance Sepsis Urinary incontinence Weakness Cellulitis, leg Obesity (BMI 30-39.9) Acute delirium Cellulitis Severe sepsis SIRS (systemic inflammatory response syndrome) Physical deconditioning Bacterial pneumonia Hypokalemia Bronchitis due to COVID-19 virus Pneumonia due to COVID-19 virus COVID-19 virus infection Exposure to COVID-19 virus Viral syndrome Acute bronchitis Hematuria Kidney stone on right side Multiple renal cysts Cough Diastolic dysfunction Mental status change resolved HTN (hypertension) Dyspnea SOB (shortness of breath) HHD (hypertensive heart disease) Pre-op evaluation Microalbuminuria Enlarged prostate History of IBS Diabetes Acquired lymphedema Assessment and Plan Assessment and plan all Dx Assessment and Plan for all problems:: Pharmacokinetic dosing service Objective: Patient: Floor: Age: 74 yo Serum creatinine: 1.7 mg/dL Height: 68.9 Inches Weight (kg): 94.6 Assessment: IBW (kg): 70.47 Dosing wt(kg): 94.6 Estimated Creatinine clearance (ml/min): 39.2 CRCL method: Cockcroft and Gault using ibw(default). Drug selected: Vancomycin Loading dose (mg): 0 Vd (liters): 75.7 (factor used: 0.8 L/kg) Carlos (hr-1): 0.037 Half life (hrs): 18.73 Recommended dose: 1500 mg Interval: 24 hrs Infusion time (hrs): 2.0 Predicted peak (mcg/mL): 32.5 Predicted trough (mcg/mL): 14.40 Total body weight is being used for vancomycin dosing. Recommendations: Give Vancomycin 1500 mg q 24 hrs with an expected Cpeak of 32.5 mcg/ml and an expected Ctrough of 14.40 mcg/ml ----Vanco only - ignore for aminoglycosides----- CLvanco= 2.80 L/hr AUC 0-24 /REYMUNDO Data: REYMUNDO 0.5 mcg/mL: AUC/REYMUNDO: 1071.4 REYMUNDO 1.0 mcg/mL: AUC/REYMUNDO: 535.7 --------- REYMUNDO 1.5 mcg/mL: AUC/REYMUNDO: 357.1 REYMUNDO 2.0 mcg/mL: AUC/REYMUNDO: 267.9
[2024-07-24] MEDS: DEFINITY US ECHO CONTRAST 2ML INJ 2 MG IV (07:35)
--- OUTSIDE RECORDS SUMMARY | 2024-07-24 07:48 | XMS_ITS | Clinical Summary ---
Author Organization [facility] Address [address] [place] [address] Phone Care Team Providers Care Arabic Professor Name Role Phone Jonah Anthony APRN Primary Care Provider [phone] Minnie VILLALOBOS, Danish Maurer [phone] Reason for Visit and Chief Complaint Post Op Problems Includes: Problems addressed during this encounter and other active Problems All Visits Onset Date Resolved Date Provider Condition S tatus Joint Pain in the Right Knee 10/06/2020 Danish Hartman MD Active Last Documented On 1 3:35PM ; [facility] Joint Pain, Localized in the Left Shoulder 10/08/2018 Ravi Kruse MD Active Last Documented On 9 8:56AM ; [facility] Plan of Treatment Right total knee improving patient continue using the dynamic splints at home to continue stretching extension and flexion follow-up in 6-8 weeks return to work full duty no restrictions - Last Documented On 05/24/2021 3:41PM ; [facility] Instructions to patient Lose weight Last Documented On 2 10:06AM ; [facility] Assessments Includes: Assessments from this encounter No Assessments Recorded Instructions Includes: Instructions from this encounter Instructions to patient Lose weight Last Documented On 2 10:06AM ; [facility] Medical Equipment - Implanted Devices Includes: Current Devices No Medical Equipment Recorded Medications Includes: Medications discussed during this encounter and other current Medications Current Medications (continue as prescribed) Plavix 75 MG Oral Tablet 03/29/2021 Provider: Diagnosis: Last Documented On 2 10:05AM By Nataliia Lockwood ; [facility] Actos 15 MG Oral Tablet 01/12/2021 Provider: Diagnosis: Last Documented On 1 1:52PM By Aileen Perez ; [facility] Past Medications on file oxyCODONE HCl 5 MG Oral Tablet 03/12/2021 - 03/16/2021 Provider: Danish Hartman MD Diagnosis: 1 tablet by mouth every 4 hours for post op pain Last Documented On 1 11:56AM By Danish Hartman ; [facility] Ultram 50 MG Oral Tablet 03/12/2021 - 03/22/2021 Provi cleo: Danish Hartman MD Diagnosis: 1-2 tablets by mouth every 4-6hrs for post op pa in Last Documented On 1 12:11PM By Danish Hartman ; [facility] oxyCODONE HCl 5 MG Oral Tablet 01/14/2021 - 01/19/2021 Provider: Danish Hartman MD Diagnosis: take 1-2 tablets every 4-6hrs for post op pain Last Documented On 1 4:49PM By Danish Hartman ; [facility] oxyCODONE HCl 5 MG Oral Tablet 01/12/2021 - 01/17/2021 Provider: Danish Hartman MD Diagnosis: take 1-2 tablets every 4-6hrs for post op pain Last Documented On 1 10:46AM By Danish Hartman ; [facility] Losartan Potassium 50 MG Oral Tablet 01/12/2021 - 03/27 Provider: Diagnosis: Last Documented On 1 1:51PM By Aileen Perez ; [facility] Mobic 15 MG Oral Tablet 12/22/2020 - 01/21/2021 Provid er: Danish Hartman MD Diagnosis: 1 every bedtime Last Documented On 1 3:29PM By Danish Hartman ; [facility] Acetaminophen 500 MG Oral Tablet 12/22/2020 - 01/22/20 Provider: Danish Hartman MD Diagnosis: take 2 tablets 3 times daily, AFTER SURGERY Last Documented On 1 3:28PM By Danish [facility] Colace 100 MG Oral Capsule 12/22/2020 - 01/21/2021 Pro vider: Danish Hartman MD Diagnosis: 1-2 tablets daily, as needed, AFTER SURGERY Last Documented On 1 3:28PM By Danish Hartman ; [facility], [facility] Doxycycline Hyclate 100 MG O ral Capsule 12/22/2020 - 12/25/2020 Provider: Danish Hartman MD Diagnosis: twice a day Last Documented On 1 3:27PM By Danish Hartman ; [facility], [facility] Aspirin Adult Low Strength 8 1 MG Oral Tablet Delayed Release 12/22/2020 - 02/05/2021 Provider: Danish Hartman MD Diagnosis: twice a day Last Documented On 1 3:26PM By Danish Hartman ; [facility], [facility] Zofran 4 MG Oral Tablet 12/22/2020 - 01/21/2021 Provid er: Danish Hartman MD Diagnosis: 1 po q 6 to 8 hrs prn pain t alex 1 tablet every 6-8hrs for nausea, AFTER SURGERY Last Documented On 1 3:26PM By Danish Hartman ; [facility], [facility] Ultram 50 MG Oral Tablet 12/22/2020 - 01/01/2021 Provi cleo: Danish Hartman MD Diagnosis: 1-2 p o q 6-8h take 1-2 tabl ets every 6-8 hours for breakthrough post op pain Last Documented On 1 3:35PM By Danish Hartman ; [facility], [facility] oxyCODONE HCl 5 MG Oral Tablet 12/22/2020 - 12/27/2020 Provider: Danish Hartman MD Diagnosis: take 1-2 tablets every 4-6hrs for post op pain Last Documented On 1 3:35PM By Danish Hartman ; [facility], [facility] oxyCODONE HCl 5 MG Oral Tablet [...] On 05/18/2021 10:05A M ; [facility] Results Includes: Results discussed during this [...] Documented On 2 9:59AM ; [facility] Caffeine use 01/12/2021 Last Documented On 2 9:59AM ; [facility] No recent change in diet 01/12/2021 Last Documented On 2 9:59AM ; [facility] Not a current smoker. 01/12/2021 Last Documented On 2 9:59AM ; [facility] Not exercising regularly 01/12/2021 Last Documented On 2 9:59AM ; [facility] Not using drugs 01/12/2021 Last Documented On 2 9:59AM ; [facility] Non-smoker 10/06/2020 Last Documented On 2 9:59AM ; [facility] No tobacco use 10/08/2018 Last Documented On 2 9:59AM ; [facility] Smoking status : Never smoker 10/08/2018 [...] 01/12/2021 Last Documented On 2 9:59AM ; [facility] Family history of cancer 01/12/2021 Last Documented On 2 9:59AM ; [facility] Family history of heart disease 01/13/20 21 Last Documented On 2 9:59AM ; [facility] Family history of hypertension 1 Last Documented On 2 9:59AM ; [facility] Family history of osteoporosis 1 Last Documented On 2 9:59AM ; [facility] Review of Systems Includes: Review [...] Active Last Documented On 2 1:07PM ; [facility] Encounters Encounter Provider Location Date Check-In Time Check- Out Time Diagnosis Post Op Danish Hartman MD [facility] 2 9:58AM 10:38AM Insurance Includes: Active Insurance Policies Plan Name Member ID Group # Subscriber Relationship Effect jim Dates 1 - [facility] [id number] [place] III Self Clinical Notes Includes: Clinical Notes from this encounter No Clinical Notes Recorded
--- OUTSIDE RECORDS SUMMARY | 2024-07-24 07:48 | XMS_ITS ---
Author Organization [facility] Address [address] [address] Phone Care Team Providers Care Flight Operation Coordinator Name Role Phone Jonah Anthony APRN Primary Care Provider [phone] Minnie VILLALOBOS, Danish Maurer [phone] Reason for Referral Date Encounter Description Provider [...] Documented On 0 9:43AM ; [facility] Instructions for patient see pcp for bp Last Documented On 9 9:35AM ; [facility] Instructions for patient see pcp for bp Last Documented On 9 9:19AM ; [facility] Assessments Includes: Assessments for all patient encounters No Assessments Recorded Instructions Includes: Instructions for all patient encounters Instructions to patient Lose weight Last Documented On 2 1:04PM ; [facility] Lose weight Last Documented [...] Last Documented On 9 9:19AM ; [facility], [facility] Medical Equipment - Implanted Devices Includes: Current and historical Devices No Medical Equipment Recorded Medications Includes: Current and historical Medications Current Medications (continue as prescribed) Plavix 75 MG Oral Tablet 03/29/2021 Provider: Diagnosis: Last Documented On 2 10:05AM By Nataliia Lockwood ; [facility] Actos 15 MG Oral Tablet 01/12/2021 Provider: Diagnosis: Last Documented On 1 1:52PM By [facility]en [facility] Past Medications on file oxyCODONE HCl 5 MG Oral Tablet 03/12/2021 - 03/16/2021 Provider: Danish Hartman MD Diagnosis: 1 tablet by mouth every 4 hours for post op pain Last Documented On 1 11:56AM By Danish [facility], [facility] Ultram 50 MG Oral Tablet 03/12/2021 - 03/22/2021 Provi cleo: Danish Hartman MD Diagnosis: 1-2 tablets by mouth every 4-6hrs for post op pa in Last Documented On 1 12:11PM By Danish Hartman ; [facility] Zofran 4 MG Oral Tablet 03/12/2021 - 03/29/2021 Provid er: Danish Hartman MD Diagnosis: 1 po q 6 to 8 hrs prn pain t alex 1 tablet every 6-8hrs for nausea, AFTER SURGERY Last Documented On 2 10:05AM By Nataliia Lockwood ; [facility] oxyCODONE HCl 5 MG Oral Tablet 01/14/2021 - 01/19/2021 Provider: Danish Hartman MD Diagnosis: take 1-2 tablets every 4-6hrs for post op pain Last Documented On 1 4:49PM By Danish Hartman ; [facility] Plavix 75 MG Oral Tablet 01/12/2021 - 03/29/2021 Provi cleo: Diagnosis: Last Documented On 2 10:05AM By Nataliia Lockwood ; [facility] oxyCODONE HCl 5 MG Oral Tablet 01/12/2021 - 01/17/2021 Provider: Danish Hartman MD Diagnosis: take 1-2 tablets every 4-6hrs for post op pain Last Documented On 1 10:46AM By Danish Hartman ; [facility] Losartan Potassium 50 MG Oral Tablet 01/12/2021 - 03/27 Provider: Diagnosis: Last Documented On 1 1:51PM By Aileen Perez ; [facility], [facility] Mobic 15 MG Oral Tablet 12/22/2020 - 01/21/2021 Provid er: Danish Hartman MD Diagnosis: 1 every bedtime Last Documented On 1 3:29PM By Danish Hartman ; [facility] Acetaminophen 500 MG Oral Tablet 12/22/2020 - 01/22/20 Provider: Danish Hartman MD Diagnosis: take 2 tablets 3 times daily, AFTER SURGERY Last Documented On 1 3:28PM By Danish Hartman ; [facility] Colace 100 MG Oral Capsule 12/22/2020 - 01/21/2021 Pro vider: Danish Hartman MD Diagnosis: 1-2 tablets daily, as needed, AFTER SURGERY Last Documented On 1 3:28PM By Danish Hartman ; [facility], [facility] Doxycycline Hyclate 100 MG O ral Capsule 12/22/2020 - 12/25/2020 Provider: Danish Hartman MD Diagnosis: twice a day Last Documented On 1 3:27PM By Danish Hartman ; [facility], [facility] Aspirin Adult Low Strength 8 1 MG Oral Tablet Delayed Release 12/22/2020 - 02/05/2021 Provider: Danish Hartman MD Diagnosis: twice a day Last Documented On 1 3:26PM By Danish Hartman ; [facility], [facility] Zofran 4 MG Oral Tablet 12/22/2020 - 01/21/2021 Provid er: Danish Hartman MD Diagnosis: 1 po q 6 to 8 hrs prn pain t alex 1 tablet every 6-8hrs for nausea, AFTER SURGERY Last Documented On 1 3:26PM By Danish Hartman ; [facility], [facility] Ultram 50 MG Oral Tablet 12/22/2020 - 01/01/2021 Provi cleo: Danish Hartman MD Diagnosis: 1-2 p o q 6-8h take 1-2 tabl ets every 6-8 hours for breakthrough post op pain Last Documented On 1 3:35PM By Danish Hartman ; [facility], [facility] oxyCODONE HCl 5 MG Oral Tablet 12/22/2020 - 12/27/2020 Provider: Danish Hartman MD Diagnosis: take 1-2 tablets every 4-6hrs for post op pain Last Documented On 1 3:35PM By Danish Hartman ; [facility], [facility] oxyCODONE HCl 5 MG Oral Tablet 12/15/2020 - 12/19/2020 Provider: Danish Hartman MD Diagnosis: 1-2 po q 4-6h take 1-2 table ts every 4-6hrs for post op pain Last Documented On 1 4:37PM By Danish Hartman ; [facility], [facility] Cefadroxil 500 MG Oral Capsule 12/15/2020 - 12/18/2020 Provider: Danish Hartman MD Diagnosis: twice a day Last Documented On 1 4:26PM By Danish Hartman ; [facility] Mupirocin 2% External Ointment 11/20/2020 - 03/29/2021 Provider: Danish Hartman MD Diagnosis: twice a day - apply under ea ch nostril 2 x day 5days prior to surgery with a q-tip Last Documented On 2 10:05AM By Nataliia Lockwood ; [facility] Benadryl Allergy 25 MG Oral [...] On 1 1:51PM By Aileen Perez ; [facility] Vitamin D3 250 MCG ([id number] UT) Oral Capsule 0 06/03/2019 - 01/12/2021 Provider: Diagnosis: Last Documented On 1 1:51PM By Aileen Perez ; [facility], [facility] Vitamin B6 200 MG Oral Tablet 06/03/2019 - 01/12/2021 Provider: Diagnosis: Last Documented On 1 1:51PM By Aileen Perez ; [facility] FiberCon 625 MG Oral Tablet 06/03/2019 - 01/12/2021 Pr ovider: Diagnosis: Last Documented On 1 1:51PM By Aileen Perez ; [facility], [facility] Tylenol 500mg 500mg Oral Tablet 06/03/2019 - Provider: Diagnosis: Last Documented On 1 1:51PM By Aileen Perez ; [facility] Plavix 75 MG Oral Tablet 06/03/2019 - 01/12/2021 Provi cleo: Diagnosis: Last Documented On 1 1:51PM By Aileen Perez ; [facility] Nystatin [id number] UNIT/GM External Ointment 05/03/2019 - 01/12/2021 Provider: [...] On 1 12:37PM By Erendira Aguilar ; [facility] Diclofenac Sodium 75 MG OR TBEC 03/08/2011 - Provider: Danish Hartman MD Diagnosis: jayy [phone] jrk Last Documented On 12:38PM By Erendira Aguilar ; [facility] Naproxen 500 MG OR TBEC 02/14/2011 - 10/07/2020 Provid er: Danish Hartman MD Diagnosis: mkp Last Documented On 12:37PM By Erendira Aguilar ; [facility] Ambien 10 MG OR TABS 08/16/2010 - 10/07/2020 Provider: Danish Hartman MD Diagnosis: mkp Last Documented On 12:38PM By Erendira Agiular ; [facility] Lortab 7.5-500 MG OR TABS 08/16/2010 - 10/07/2020 Prov ider: Danish Hartman MD Diagnosis: mkp Last Documented On 12:37PM By Erendira Aguilar ; [facility] Lortab 7.5-500 MG OR TABS 08/02/2010 - 10/07/2020 Prov ider: Danish Hartman MD Diagnosis: mkp post op meds Last Documented On 12:38PM By Erendira Aguilar ; [facility] DENIED EX MISC 07/28/2010 - 10/07/2020 Provider: Cande Hartman MD Diagnosis: patient needs to be seen/apt on 07/29/10/ab Last Documented On 12:37PM By Erendira Aguilar ; [facility] Lortab 5-500 MG OR TABS 04/07/2010 - 10/07/2020 Provid er: Danish Hartman MD Diagnosis: ab Last Documented On 12:37PM By Erendira Aguilar ; [facility] Lortab 7.5-500 MG OR TABS 03/04/2010 - 10/07/2020 Prov ider: Danish Hartman MD Diagnosis: ab Last Documented On 12:37PM By Erendira Aguilar ; [facility] Ultram 50 MG OR TABS 03/04/2010 - 10/07/2020 Provider: Danish Hartman MD Diagnosis: ab Last Documented On 12:37PM By Erendira Aguilar ; [facility] Lortab 5-500 MG OR TABS 02/24/2010 - 10/07/2020 Provid er: Danish Hartman MD Diagnosis: mkp phoned to jayy [phone] [place] Last Documented On 12:37PM By Erendira Aguilar ; [facility] Lortab 5-500 MG OR TABS 02/15/2010 - 10/07/2020 Provid er: Danish Hartman MD Diagnosis: [phone] jayy [place] Last Documented On 12:37PM By Erendira Aguilar ; [facility] DENIED EX MISC 02/12/2010 - 10/07/2020 Provider: Cande Hartman MD Diagnosis: pt called for lortab. no per aubrey pt is no due until monday jrk spoke to pt df Last Documented On 12:37PM By Erendira Aguilar ; [facility] Lortab 5-500 MG OR TABS 02/09/2010 - 10/07/2020 Provid er: Danish Hartman MD Diagnosis: [phone] jayy df Last Documented On 12:37PM By Erendira Aguilar ; [facility] traMADol HCl 50 MG OR TABS 01/26/2010 - 10/07/2020 Pro vider: Danish Hartman MD Diagnosis: jayy [place] [phone] jrk Last Documented On 12:38PM By Erendira Aguilar ; [facility] Mobic 15 MG OR TABS 01/26/2010 - 10/07/2020 Provider: Danish Hartman MD Diagnosis: [place] [phone] jrk Last Documented On 12:37PM By Erendira Aguilar ; [facility] Diclofenac Sodium 75 MG OR TBEC 01/06/2010 - 1 Provider: Danish Hartman MD Diagnosis: ab Last Documented On 1 12:37PM By Erendira Aguilar ; [facility] Medications Administered Includes: Administered Medications in patient's chart No Administered Medications Recorded Results Includes: Results from 07/25/2023 through 07/24/2024 No Results Recorded For Specified Dates History of Present Illness History of Present Illness not supported for this document type No History of Present Illness Recorded Social History Description Last Updated Working part-time 03/29/2021 Last Documented On 2 1:27PM ; [facility] Caffeine use 01/12/2021 Last Documented On 2 2:59PM ; [facility] No recent change in diet 01/12/2021 Last Documented On 2 2:59PM ; [facility] Not a current smoker. 01/12/2021 Last Documented On 2 2:59PM ; [facility] Not exercising regularly 01/12/2021 Last Documented On 2 2:59PM ; [facility] Not using drugs 01/12/2021 Last Documented On 2 2:59PM ; [facility] Non-smoker 10/06/2020 Last Documented On 1 3:56PM ; [facility] No tobacco use 10/08/2018 Last Documented On 9 12:07PM ; [facility] Smoking status : Never smoker 10/08/2018 Last Documented On 9 12:07PM ; [facility] Medical History Includes: Medical History in patient's chart Description Last Updated Anemia 01/12/2021 Last Documented On 2 2:59PM ; [facility] Arthritis 01/12/2021 Last Documented On 2 2:59PM ; [facility] History of diabetes mellitus 01/12/2021 Last Documented On 2 2:59PM ; [facility] History of diverticulitis of colon 01/12 Last Documented On 2 2:59PM ; [facility] History of Gallbladder 01/12/2021 Last Documented On 2 2:59PM ; [facility], [facility] History of heart disease 01/12/2021 Last Documented On 2 2:59PM ; [facility], [facility] History of Rheumatology 01/12/2021 Last Documented On 2 2:59PM ; [facility], [facility] Hypertension 01/12/2021 Last Documented On 2 2:59PM ; [facility], [facility] Past Surgical History: RTC RT ~PKR LT ~H ernia 01/12/2021 Last Documented On 2 2:59PM ; [facility], [facility] Sleep Apnea 01/12/2021 Last Documented On 2 2:59PM ; [facility], [facility] Total knee arthroplasty 01/12/2021 Last Documented On 2 2:59PM ; [facility], [facility] Recent immunization for flu 2019 021 Last Documented On 2 2:59PM ; [facility], [facility] Recent immunization for pneumococcal pne umonia 2020 01/12/2021 Last Documented On 2 2:59PM ; [facility], [facility] Family History Includes: Family History in patient's chart Description Last Updated Diabetes mellitus 01/12/2021 Last Documented On 2 2:59PM ; [facility], [facility] Family history of cancer 01/12/2021 Last Documented On 2 2:59PM ; [facility], [facility] Family history of heart disease 01/13/20 21 Last Documented On 2 2:59PM ; [facility], [facility] Family history of hypertension 1 Last Documented On 2 2:59PM ; [facility], [facility] Family history of osteoporosis 1 Last Documented On 2 2:59PM ; [facility], [facility] Review of Systems Review of Systems not [...] Documented On 2 1:07PM ; [facility] Insurance Includes: Active Insurance Policies Plan Name Member ID Group # Subscriber Relationship Effect jim Dates 1 - [facility] [id number] [place] III Self Clinical Notes Includes: Signed Clinical Notes starting from 03/10/2022 No Clinical Notes Recorded
--- OUTSIDE RECORDS SUMMARY | 2024-07-24 07:48 | XMS_ITS | Clinical Summary ---
Author Organization [facility] , [facility] Address [address] [place] [address] Phone Care Team Providers Care Custom Wood Stair Builder Name Role Phone Raj VERGARA Anthonyrosagerald Primary Care Provider [phone] Minnie VILLALOBOS, Danish Maurer [phone] Reason for Referral Date Encounter Description Provider [...] Documented On 1 3:35PM ; [facility] Joint Pain, Localized in the Left Shoulder 10/08/2018 Ravi Kruse MD Active Last Documented On 9 8:56AM ; [facility] Plan of Treatment Patient was seen by myself Baldemar oMta PA-C. Patient will follow up 3 weeks [...] On 03/30/2021 1:27PM ; [facility], [facility] Pending Tests Order Diagnosis Results Due Ordering P rovider Therapy - Physical Therapy Knee 03/29/21 Baldemar Mota PA-C Last Documented On 2 10:22AM ; [facility] Assessments Includes: Assessments from this encounter Findings Right total knee replacement December 23, 2020 - Last Documented On 03/30/2021 1:27PM ; [facility], [facility] Right manipulation under anesthesia March 15, 2021 - Last Documented On 03/30/2021 1:27PM ; [facility] Medical Equipment - Implanted Devices Includes: Current Devices No Medical Equipment Recorded Medications Includes: Medications discussed during this encounter and other current Medications Discontinued / Stopped on this date Danish Hartman MD on 03/12/2021 Zofran 4 MG Oral Tablet Provider: Deanne Hartman MD Diagnosis: Last Documented On 10:05AM By Nataliia Lockwood ; [facility] Mupirocin 2% External Ointment Provider: Danish Hartman MD Diagnosis: Last Documented On 10:05AM By Nataliia Lockwood ; [facility] Current Medications (continue as prescribed) Plavix 75 MG Oral Tablet 03/29/2021 Provider: Diagnosis: Last Documented On 2 10:05AM By Nataliia Lockwood ; [facility], [facility] Actos 15 MG Oral Tablet 01/12/2021 Provider: Diagnosis: Last Documented On 1 1:52PM By Aileen [facility] Past Medications on file oxyCODONE HCl 5 MG Oral Tablet 03/12/2021 - 03/16/2021 Provider: Danish Hartman MD Diagnosis: 1 tablet by mouth every 4 hours for post op pain Last Documented On 1 11:56AM By Danish [facility] Ultram 50 MG Oral Tablet 03/12/2021 - 03/22/2021 Provi cleo: Danish Hartman MD Diagnosis: 1-2 tablets by mouth every 4-6hrs for post op pa in Last Documented On 12:11PM By Danish Hartman ; [facility], [facility] oxyCODONE HCl 5 MG Oral Tablet 01/14/2021 - 01/19/2021 Provider: Danish Hartman MD Diagnosis: take 1-2 tablets every 4-6hrs for post op pain Last Documented On 1 4:49PM By Danish Dubois [facility], [facility] oxyCODONE HCl 5 MG Oral Tablet 01/12/2021 - 01/17/2021 Provider: Danish Hartman MD Diagnosis: take 1-2 tablets every 4-6hrs for post op pain Last Documented On 1 10:46AM By Danish Dubois [facility], [facility] Losartan Potassium 50 MG Oral Tablet 01/12/2021 - 03/27 Provider: Diagnosis: Last Documented On 1 1:51PM By Aileen Dubois [facility], [facility] Mobic 15 MG Oral Tablet 12/22/2020 - 01/21/2021 Provid er: Danish Hartman MD Diagnosis: 1 every bedtime Last Documented On 1 3:29PM By Danish Dubois [facility], [facility] Acetaminophen 500 MG Oral Tablet 12/22/2020 - 01/22/20 Provider: Danish Hartman MD Diagnosis: take 2 tablets 3 times daily, AFTER SURGERY Last Documented On 1 3:28PM By Danish Hartman ; [facility], [facility] Colace 100 MG Oral Capsule 12/22/2020 - 01/21/2021 Pro vider: Danish Hartman MD Diagnosis: 1-2 tablets daily, as needed, AFTER SURGERY Last Documented On 1 3:28PM By Danish Hartman ; [facility], [facility] Doxycycline Hyclate 100 MG O ral Capsule 12/22/2020 - 12/25/2020 Provider: Danish Hartman MD Diagnosis: twice a day Last Documented On 1 3:27PM By Danish Dubois [facility], [facility] Aspirin Adult Low Strength 8 1 MG Oral Tablet Delayed Release 12/22/2020 - 02/05/2021 Provider: Danish Hartman MD Diagnosis: twice a day Last Documented On 1 3:26PM By Danish Dubois [facility], [facility] Zofran 4 MG Oral Tablet 12/22/2020 - 01/21/2021 Provid er: Danish Hartman MD Diagnosis: 1 po q 6 to 8 hrs prn pain t alex 1 tablet every 6-8hrs for nausea, AFTER SURGERY Last Documented On 1 3:26PM By Danish Hartman ; [facility], [facility] Ultram 50 MG Oral Tablet 12/22/2020 - 01/01/2021 Provi cleo: Danish Hartman MD Diagnosis: 1-2 p o q 6-8h take 1-2 tabl ets every 6-8 hours for breakthrough post op pain Last Documented On 1 3:35PM By Danish Dubois [facility], [facility] oxyCODONE HCl 5 MG Oral Tablet 12/22/2020 - 12/27/2020 Provider: Danish Hartman MD Diagnosis: take 1-2 tablets every 4-6hrs for post op pain Last Documented On 1 3:35PM By Danish Hartman ; [facility], [facility] oxyCODONE HCl 5 MG Oral Tablet 12/15/2020 - 12/19/2020 Provider: Danish Hartman MD Diagnosis: 1-2 po q 4-6h take 1-2 table ts every 4-6hrs for post op pain Last Documented On 1 4:37PM By Danish Dubois [facility], [facility] Cefadroxil 500 MG Oral Capsule 12/15/2020 - 12/18/2020 Provider: Danish Hartman MD Diagnosis: twice a day Last Documented On 1 4:26PM By Danish Hartman ; [facility], [facility] Medications Administered Includes: Administered Medications from this encounter No Administered Medications Recorded Vital Signs Includes: Vital Signs from this encounter Vital Name 03/29/2021 10:05A Blood Pressure Sitting (mmHg) 142/83 Pulse Rate-Sitting (bpm) 100 Height (in) 69 [facility] Last Documented: On 03/29/2021 10:05A M ; [facility], [facility] Results Includes: Results discussed during [...] On 2 1:27PM ; [facility], [facility] Caffeine use 01/12/2021 Last Documented On 2 9:48AM ; [facility] No recent change in diet 01/12/2021 Last Documented On 2 9:48AM ; [facility] Not a current smoker. 01/12/2021 Last Documented On 2 9:48AM ; [facility] Not exercising regularly 01/12/2021 Last Documented On 2 9:48AM ; [facility] Not using drugs 01/12/2021 Last Documented On 2 9:48AM ; [facility] Non-smoker 10/06/2020 Last Documented On 2 9:48AM ; [facility] No tobacco use 10/08/2018 Last Documented On 2 9:48AM ; [facility] Smoking status : Never smoker 10/08/2018 Last Documented On 2 9:48AM ; [facility], [facility] Procedures and Surgical History Includes: Procedures from this encounter Procedures Code Diagnosis Performing Provider Service L ocation Service Date use of tobacco assessment performed 1000F Last Documented On 2 9:48AM ; [facility], [facility] referral to physician see pcp for bp Last Documented On 2 9:48AM ; [facility] Pt received screening for fall risk G8270 Last Documented On 2 9:48AM ; [facility] an X-ray was performed 90005 Last Documented On 2 9:48AM ; [facility] an MRI was performed 36575 Last Documented On 2 9:48AM ; [facility] History of EKG Last Documented On 2 9:48AM ; [facility] History of Blood Tests Last Documented On 2 9:48AM ; [facility], [facility] Medical History Includes: Medical History addressed during this encounter Description Last Updated Anemia 01/12/2021 Last Documented On 2 9:48AM ; [facility] Arthritis 01/12/2021 Last Documented On 2 9:48AM ; [facility] History of diabetes mellitus 01/12/2021 Last Documented On 2 9:48AM ; [facility] History of diverticulitis of colon 01/12 Last Documented On 2 9:48AM ; [facility] History of Gallbladder 01/12/2021 Last Documented On 2 9:48AM ; [facility] History of heart disease 01/12/2021 Last Documented On 2 9:48AM ; [facility], [facility] History of Rheumatology 01/12/2021 Last Documented On 2 9:48AM ; [facility] Hypertension 01/12/2021 Last Documented On 2 9:48AM ; [facility], [facility] Past Surgical History: RTC RT ~PKR LT ~H ernia 01/12/2021 Last Documented On 2 9:48AM ; [facility], [facility] Sleep Apnea 01/12/2021 Last Documented On 2 9:48AM ; [facility], [facility] Total knee arthroplasty 01/12/2021 Last Documented On 2 9:48AM ; [facility], [facility] Recent immunization for flu 2019 021 Last Documented On 2 9:48AM ; [facility], [facility] Recent immunization for pneumococcal pne umonia 201901/12/2021 Last Documented On 2 9:48AM ; [facility] Family History Includes: Family History addressed during this encounter Description Last Updated Diabetes mellitus 01/12/2021 Last Documented On 2 9:48AM ; [facility], [facility] Family history of cancer 01/12/2021 Last Documented On 2 9:48AM ; [facility] Family history of heart disease 01/13/20 21 Last Documented On 2 9:48AM ; [facility] Family history of hypertension 1 Last Documented On 2 9:48AM ; [facility] Family history of osteoporosis 1 Last Documented On 2 9:48AM ; [facility] Review of Systems Includes: Review of [...] Active Last Documented On 2 1:07PM ; [facility] Encounters Encounter Provider Location Date Check-In Time Check- Out Time Diagnosis Post Op Baldemar Mota PA-C [facility] 2 9:47AM 10:21AM Insurance Includes: Active Insurance Policies Plan Name Member ID Group # Subscriber Relationship Effect jim Dates 1 - [place]/[facility] [id number] Burna Alford III Self Clinical Notes Includes: Clinical Notes from this encounter No Clinical Notes Recorded
--- OUTSIDE RECORDS SUMMARY | 2024-07-24 07:48 | XMS_ITS ---
Care Plan - [facility], [facility] Created on: July 24, 2024 Mable Alford III : 1950 Sex: Male Author Organization [facility] , [facility] Address [address] [place] [address] Phone Care Team Providers Care Wire Photo Operator News Name Role Phone Jonah Anthony APRN Primary Care Provider [phone] Minnie VILLALOBOS, Danish [facility] [phone]
--- OUTSIDE RECORDS SUMMARY | 2024-07-24 07:48 | XMS_ITS | Clinical Summary ---
Author Organization [facility] Address [address] [address] Phone Care Team Providers Care Soda Fountain Manager Name Role Phone Raj VERGARA Anthonybelia Primary Care Provider [phone] Minnie VILLALOBOS, Danish Maurer [phone] Reason for Visit and Chief Complaint The Chief Complaint is: RT TKA Problems Includes: Problems addressed during this encounter and other active Problems All Visits Onset Date Resolved Date Provider Condition S tatus Joint Pain in the Right Knee 10/06/2020 Danish Hartman MD Active Last Documented On 1 3:35PM ; [facility] Joint Pain, Localized in the Left Shoulder 10/08/2018 Ravi Kruse MD Active Last Documented On 9 8:56AM ; [facility], [facility] Plan of Treatment Patient was seen [...] - Last Documented On 06/29/2021 1:27PM ; [facility], [facility] Instructions to patient Lose weight Last Documented On 2 1:01PM ; [facility], [facility] Assessments Includes: Assessments from this encounter Findings Right total knee replacement November 2020 with vapor ablation in February 2021 - Last Documented On 06/29/2021 1:27PM ; [facility], [facility] Instructions Includes: Instructions from this encounter Instructions to patient Lose weight Last Documented On 2 1:01PM ; [facility] Medical Equipment - Implanted Devices Includes: Current Devices No Medical Equipment Recorded Medications Includes: Medications discussed during this encounter and other current Medications Current Medications (continue as prescribed) Plavix 75 MG Oral Tablet 03/29/2021 Provider: Diagnosis: Last Documented On 2 10:05AM By Nataliia Lockwood ; [facility], [facility] Actos 15 MG Oral Tablet 01/12/2021 Provider: Diagnosis: Last Documented On 1 1:52PM By Aileen Dubois [facility], [facility] Past Medications on file oxyCODONE HCl 5 MG Oral Tablet 03/12/2021 - 03/16/2021 Provider: Danish Hartman MD Diagnosis: 1 tablet by mouth every 4 hours for post op pain Last Documented On 1 11:56AM By Danish Hartman ; [facility], [facility] Ultram 50 MG Oral Tablet 03/12/2021 - 03/22/2021 Provi cleo: Danish Hartman MD Diagnosis: 1-2 tablets by mouth every 4-6hrs for post op pa in Last Documented On 1 12:11PM By Danish Hartman ; [facility], [facility] oxyCODONE HCl 5 MG Oral Tablet 01/14/2021 - 01/19/2021 Provider: Danish Hartman MD Diagnosis: take 1-2 tablets every 4-6hrs for post op pain Last Documented On 1 4:49PM By Danish Hartman ; [facility], [facility] oxyCODONE HCl 5 MG Oral Tablet 01/12/2021 - 01/17/2021 Provider: Danish Hartman MD Diagnosis: take 1-2 tablets every 4-6hrs for post op pain Last Documented On 1 10:46AM By Danish Hatrman ; [facility], [facility] Losartan Potassium 50 MG Oral Tablet 01/12/2021 - 03/27 Provider: Diagnosis: Last Documented On 1 1:51PM By Aileen Dubois [facility], [facility] Mobic 15 MG Oral Tablet 12/22/2020 - 01/21/2021 Provid er: Danish Hartman MD Diagnosis: 1 every bedtime Last Documented On 1 3:29PM By Danish Hartman ; [facility], [facility] Acetaminophen 500 MG Oral Tablet 12/22/2020 - 01/22/20 Provider: Danish Hartman MD Diagnosis: take 2 tablets 3 times daily, AFTER SURGERY Last Documented On 1 3:28PM By Danish Hartman ; [facility], [facility] Colace 100 MG Oral Capsule 12/22/2020 - 01/21/2021 Pro vider: Danish Hartman MD Diagnosis: 1-2 tablets daily, as needed, AFTER SURGERY Last Documented On 1 3:28PM By Danish Hartman ; [facility], [facility] Doxycycline Hyclate 100 MG O ral Capsule 12/22/2020 - 12/25/2020 Provider: Danish Hartman MD Diagnosis: twice a day Last Documented On 1 3:27PM By Danish Hartman ; [facility], [facility] Aspirin Adult Low Strength 8 1 MG Oral Tablet Delayed Release 12/22/2020 - 02/05/2021 Provider: Danish Hartman MD Diagnosis: twice a day Last Documented On 1 3:26PM By Danish Hartman ; [facility], [facility] Zofran 4 MG Oral Tablet 12/22/2020 - 01/21/2021 Provid er: Danish Hartman MD Diagnosis: 1 po q 6 to 8 hrs prn pain t alex 1 tablet every 6-8hrs for nausea, AFTER SURGERY Last Documented On 1 3:26PM By Danish Hartman ; [facility], [facility] Ultram 50 MG Oral Tablet 12/22/2020 - 01/01/2021 Provi cleo: Danish Hartman MD Diagnosis: 1-2 p o q 6-8h take 1-2 tabl ets every 6-8 hours for breakthrough post op pain Last Documented On 1 3:35PM By Danish Hartman ; [facility], [facility] oxyCODONE HCl 5 MG Oral Tablet 12/22/2020 - 12/27/2020 Provider: Danish Hartman MD Diagnosis: take 1-2 tablets every 4-6hrs for post op pain Last Documented On 1 3:35PM By Danish Hartman ; [facility], [facility] oxyCODONE HCl 5 MG Oral Tablet 12/15/2020 - 12/19/2020 Provider: Danish Hartman MD Diagnosis: 1-2 po q 4-6h take 1-2 table ts every 4-6hrs for post op pain Last Documented On 1 4:37PM By Danish Hartman ; [facility] Cefadroxil 500 MG Oral Capsule 12/15/2020 - 12/18/2020 Provider: Danish Hartman MD Diagnosis: twice a day Last Documented On 1 4:26PM By Danish Hartman ; [facility] Medications Administered Includes: Administered Medications from this encounter No Administered Medications Recorded Vital Signs Includes: Vital Signs from this encounter Vital Name 06/29/2021 01:11P Blood Pressure Sitting (mmHg) 102/63 Pulse Rate-Sitting (bpm) 96 Height (in) 69 Weight (lb) 214.8 Body Mass Index (kg/m2) 31.7 Body Surface Area (m2) 2.1 Note: mg Last Documented: On 06/29/2021 1:11PM ; [facility] Results Includes: Results discussed during this [...] Documented On 2 1:01PM ; [facility] Caffeine use 01/12/2021 Last Documented On 2 1:01PM ; [facility] No recent change in diet 01/12/2021 Last Documented On 2 1:01PM ; [facility] Not a current smoker. 01/12/2021 Last Documented On 2 1:01PM ; [facility] Not exercising regularly 01/12/2021 Last Documented On 2 1:01PM ; [facility] Not using drugs 01/12/2021 Last Documented On 2 1:01PM ; [facility], [facility] Non-smoker 10/06/2020 Last Documented On 2 1:01PM ; [facility], [facility] No tobacco use 10/08/2018 Last Documented On 2 1:01PM ; [facility], [facility] Smoking status : Never smoker 10/08/2018 Last Documented On 2 1:01PM ; [facility], [facility] Procedures and Surgical History Includes: Procedures from this encounter Procedures Code Diagnosis Performing Provider Service L ocation Service Date use of tobacco assessment performed 1000F Last Documented On 2 1:01PM ; [facility], [facility] Medical History Includes: Medical History addressed during this encounter Description Last Updated Anemia 01/12/2021 Last Documented On 2 1:01PM ; [facility], [facility] Arthritis 01/12/2021 Last Documented On 2 1:01PM ; [facility], [facility] History of diabetes mellitus 01/12/2021 Last Documented On 2 1:01PM ; [facility], [facility] History of diverticulitis of colon 01/12 Last Documented On 2 1:01PM ; [facility], [facility] History of Gallbladder 01/12/2021 Last Documented On 2 1:01PM ; [facility], [facility] History of heart disease 01/12/2021 Last Documented On 2 1:01PM ; [facility], [facility] History of Rheumatology 01/12/2021 Last Documented On 2 1:01PM ; [facility], [facility] Hypertension 01/12/2021 Last Documented On 2 1:01PM ; [facility], [facility] Past Surgical History: RTC RT ~PKR LT ~H ernia 01/12/2021 Last Documented On 2 1:01PM ; [facility], [facility] Sleep Apnea 01/12/2021 Last Documented On 2 1:01PM ; [facility], [facility] Total knee arthroplasty 01/12/2021 Last Documented On 2 1:01PM ; [facility] Recent immunization for flu 2019 021 Last Documented On 2 1:01PM ; [facility] Recent immunization for pneumococcal pne umonia 201901/12/2021 Last Documented On 2 1:01PM ; [facility], [facility] Family History Includes: Family History addressed during this encounter Description Last Updated Diabetes mellitus 01/12/2021 Last Documented On 2 1:01PM ; [facility] Family history of cancer 01/12/2021 Last Documented On 2 1:01PM ; [facility] Family history of heart disease 01/13/20 21 Last Documented On 2 1:01PM ; [facility] Family history of hypertension 1 Last Documented On 2 1:01PM ; [facility] Family history of osteoporosis 1 Last Documented On 2 1:01PM ; [facility] Review of Systems Includes: Review [...] Documented On 2 1:07PM ; [facility] Encounters Encounter Provider Location Date Check-In Time Check- Out Time Diagnosis [facility] 2 12:33PM 1:26PM Insurance Includes: Active Insurance Policies Plan Name Member ID Group # Subscriber Relationship Effect jim Dates 1 - [facility] [id number] [place] Alford III Self Clinical Notes Includes: Clinical Notes from this encounter No Clinical Notes Recorded
--- OUTSIDE RECORDS SUMMARY | 2024-07-24 07:49 | XMS_ITS | Clinical Summary ---
Author Organization [facility] Address [address] [place] [address] Phone Care Team Providers Care Machine Rigger Name Role Phone Raj VERGARA Anthonybelia Primary Care Provider [phone] Minnie VILLALOBOS, Danish Maurer [phone] Reason for Visit and Chief Complaint The Chief Complaint is: RT TKA Problems Includes: Problems addressed during this encounter and other active Problems All Visits Onset Date Resolved Date Provider Condition S tatus Joint Pain in the Right Knee 10/06/2020 Danish Hartman MD Active Last Documented On 1 3:35PM ; [facility] Joint Pain, Localized in the Left Shoulder 10/08/2018 Ravi Kruse MD Active Last Documented On 9 8:56AM ; [facility] Plan of Treatment patient was seen by myself Baldemar Mota PA-C. Patient will follow up right now as needed he was told to follow-up every 3 to 4 years after this just for an x-ray to see how the implant looks on x-ray. - Last Documented On 01/05/2022 1:30PM ; [facility] Instructions to patient Lose weight Last Documented On 2 1:04PM ; [facility] Assessments Includes: Assessments from this encounter Findings Right total knee replacement December 23, 2020 - Last Documented On 01/05/2022 1:30PM ; [facility] Instructions Includes: Instructions from this encounter Instructions to patient Lose weight Last Documented On 2 1:04PM ; [facility] Medical Equipment - Implanted Devices Includes: Current Devices No Medical Equipment Recorded Medications Includes: Medications discussed during this encounter and other current Medications Current Medications (continue as prescribed) Plavix 75 MG Oral Tablet 03/29/2021 Provider: Diagnosis: Last Documented On 2 10:05AM By Nataliia Lockwood ; [facility], [facility] Actos 15 MG Oral Tablet 01/12/2021 Provider: Diagnosis: Last Documented On 1 1:52PM By Aileen Perez ; [facility] Past Medications on file oxyCODONE HCl 5 MG Oral Tablet 03/12/2021 - 03/16/2021 Provider: Danish Hartman MD Diagnosis: 1 tablet by mouth every 4 hours for post op pain Last Documented On 1 11:56AM By Danish Hartman ; [facility] Ultram 50 MG Oral Tablet 03/12/2021 - 03/22/2021 Provi cleo: Danish Hartman MD Diagnosis: 1-2 tablets by mouth every 4-6hrs for post op pa in Last Documented On 1 12:11PM By Danish Hartman ; [facility] oxyCODONE HCl 5 MG Oral Tablet 01/14/2021 - 01/19/2021 Provider: Danish Hartman MD Diagnosis: take 1-2 tablets every 4-6hrs for post op pain Last Documented On 1 4:49PM By Danish Hartman ; [facility] oxyCODONE HCl 5 MG Oral Tablet 01/12/2021 - 01/17/2021 Provider: Danish Hartman MD Diagnosis: take 1-2 tablets every 4-6hrs for post op pain Last Documented On 1 10:46AM By Danish Hartman ; [facility] Losartan Potassium 50 MG Oral Tablet 01/12/2021 - 03/27 Provider: Diagnosis: Last Documented On 1 1:51PM By Aileen [facility] Mobic 15 MG Oral Tablet 12/22/2020 - 01/21/2021 Provid er: Danish Hartman MD Diagnosis: 1 every bedtime Last Documented On 1 3:29PM By Danish Hartman ; [facility] Acetaminophen 500 MG Oral Tablet 12/22/2020 - 01/22/20 Provider: Danish Hartman MD Diagnosis: take 2 tablets 3 times daily, AFTER SURGERY Last Documented On 1 3:28PM By Danish Hartman ; [facility], [facility] Colace 100 MG Oral Capsule 12/22/2020 - 01/21/2021 Pro vider: Danish Hartman MD Diagnosis: 1-2 tablets daily, as needed, AFTER SURGERY Last Documented On 1 3:28PM By Danish Hartman ; [facility], [facility] Doxycycline Hyclate 100 MG O ral Capsule 12/22/2020 - 12/25/2020 Provider: Danish Hartman MD Diagnosis: twice a day Last Documented On 1 3:27PM By Danish Hartman ; [facility], [facility] Aspirin Adult Low Strength 8 1 MG Oral Tablet Delayed Release 12/22/2020 - 02/05/2021 Provider: Danish Hartman MD Diagnosis: twice a day Last Documented On 1 3:26PM By Danish Hartman ; [facility], [facility] Zofran 4 MG Oral Tablet 12/22/2020 - 01/21/2021 Provid er: Danish Hartman MD Diagnosis: 1 po q 6 to 8 hrs prn pain t alex 1 tablet every 6-8hrs for nausea, AFTER SURGERY Last Documented On 1 3:26PM By Danish Hartman ; [facility], [facility] Ultram 50 MG Oral Tablet 12/22/2020 - 01/01/2021 Provi cleo: Danish Hartman MD Diagnosis: 1-2 p o q 6-8h take 1-2 tabl ets every 6-8 hours for breakthrough post op pain Last Documented On 1 3:35PM By Danish Hartman ; [facility], [facility] oxyCODONE HCl 5 MG Oral Tablet 12/22/2020 - 12/27/2020 Provider: Danish Hartman MD Diagnosis: take 1-2 tablets every 4-6hrs for post op pain Last Documented On 1 3:35PM By Danish Hartman ; [facility], [facility] [...] 01/12/2021 Last Documented On 2 1:03PM ; [facility] Not exercising regularly 01/12/2021 Last Documented On 2 1:03PM ; [facility] Not using drugs 01/12/2021 Last Documented On 2 1:03PM ; [facility] Non-smoker 10/06/2020 Last Documented On 2 1:03PM ; [facility] No tobacco use 10/08/2018 Last Documented On 2 1:03PM ; [facility] Smoking status : Never smoker 10/08/2018 Last Documented On 2 1:03PM ; [facility] Procedures and Surgical History Includes: Procedures from this encounter Procedures Code Diagnosis Performing Provider Service L ocation Service Date use of tobacco assessment performed 1000F Last Documented On 2 1:04PM ; [facility] Medical History Includes: Medical History addressed during this encounter Description Last Updated Anemia 01/12/2021 Last Documented On 2 1:03PM ; [facility] Arthritis 01/12/2021 Last Documented On 2 1:03PM ; [facility] History of diabetes mellitus 01/12/2021 Last Documented On 2 1:03PM ; [facility] History of diverticulitis of colon 01/12 Last Documented On 2 1:03PM ; [facility] History of Gallbladder 01/12/2021 Last Documented On 2 1:03PM ; [facility] History of heart disease 01/12/2021 Last Documented On 2 1:03PM ; [facility] History of Rheumatology 01/12/2021 Last Documented On 2 1:03PM ; [facility] Hypertension 01/12/2021 Last Documented On 2 1:03PM ; [facility] Past Surgical History: RTC RT ~PKR LT ~H ernia 01/12/2021 Last Documented On 2 1:03PM ; [facility] Sleep Apnea 01/12/2021 Last Documented On 2 1:03PM ; [facility], [facility] Total knee arthroplasty 01/12/2021 Last Documented On 2 1:03PM ; [facility], [facility] Recent immunization for flu 2020 021 Last Documented On 2 1:03PM ; [facility], [facility] Recent immunization for pneumococcal pne umonia 2020 01/12/2021 Last Documented On 2 1:03PM ; [facility], [facility] Family History Includes: Family History addressed during this encounter Description Last Updated Diabetes mellitus 01/12/2021 Last Documented On 2 1:03PM ; [facility], [facility] Family history of cancer 01/12/2021 Last Documented On 2 1:03PM ; [facility], [facility] Family history of heart disease 01/13/20 21 Last Documented On 2 1:03PM ; [facility], [facility] Family history of hypertension 1 Last Documented On 2 1:03PM ; [facility], [facility] Family history of osteoporosis Last Documented On 2 1:03PM ; [facility], [facility] Review of Systems Includes: [...] Active Last Documented On 2 1:07PM ; [facility], [facility] Encounters Encounter Provider Location Date Check-In Time Check- Out Time Diagnosis Follow Up Baldemar Mota PA-C [facility] 2 12:52PM 1:30PM Insurance Includes: Active Insurance Policies Plan Name Member ID Group # Subscriber Relationship Effect jim Dates 1 - [facility] [id number] [place] III Self Clinical Notes Includes: Clinical Notes from this encounter No Clinical Notes Recorded
--- OUTSIDE RECORDS SUMMARY | 2024-07-24 07:49 | XMS_ITS | Clinical Summary ---
Author Organization [facility] Address [address] [place] [address] Phone Care Team Providers Care Well Site Drilling Engineer Name Role Phone Raj VERGARA Anthonybelia Primary Care Provider [phone] Minnie VILLALOBOS, Danish Maurer [phone] Reason for Visit and Chief Complaint The [...] seen by myself and Dr. Hartman. Baldemar Mtoa PA-C Patient will follow- up 4 weeks [...] - Last Documented On 04/20/2021 11:22PM ; [email or web address] Medical Equipment - Implanted Devices Includes: Current Devices No Medical Equipment Recorded Medications Includes: Medications discussed during this encounter and other current Medications Current Medications (continue as prescribed) Plavix 75 MG Oral Tablet 03/29/2021 Provider: Diagnosis: Last Documented On 2 10:05AM By Nataliia Lockwood ; [facility], [facility] Actos 15 MG Oral Tablet 01/12/2021 Provider: Diagnosis: Last Documented On 1 1:52PM By Aileen Perez ; [facility], [facility] Past Medications on file oxyCODONE HCl 5 MG Oral Tablet 03/12/2021 - 03/16/2021 Provider: Danish Hartman MD Diagnosis: 1 tablet by mouth every 4 hours for post op pain Last Documented On 1 11:56AM By Danish Hartman ; [facility], [facility] Ultram 50 MG Oral Tablet 03/12/2021 - 03/22/2021 Provi cleo: Danish Hartman MD Diagnosis: 1-2 tablets by mouth every 4-6hrs for post op pa in Last Documented On 1 12:11PM By Danish Hartman ; [facility], [facility] oxyCODONE HCl 5 MG Oral Tablet 01/14/2021 - 01/19/2021 Provider: Danish Hartman MD Diagnosis: take 1-2 tablets every 4-6hrs for post op pain Last Documented On 1 4:49PM By Danish Hartman ; [facility], [facility] oxyCODONE HCl 5 MG Oral Tablet 01/12/2021 - 01/17/2021 Provider: Danish Hartman MD Diagnosis: take 1-2 tablets every 4-6hrs for post op pain Last Documented On 1 10:46AM By Danish Hartman ; [facility] Losartan Potassium 50 MG Oral Tablet 01/12/2021 - 03/27 Provider: Diagnosis: Last Documented On 1 1:51PM By Aileen Perez ; [facility], [facility] Mobic 15 MG Oral Tablet 12/22/2020 - 01/21/2021 Provid er: Danish Hartman MD Diagnosis: 1 every bedtime Last Documented On 1 3:29PM By Danish Hartman ; [facility], [facility] Acetaminophen 500 MG Oral Tablet 12/22/2020 - 01/22/20 Provider: Danish Hartman MD Diagnosis: take 2 tablets 3 times daily, AFTER SURGERY Last Documented On 1 3:28PM By Danish Hartman ; [facility], [facility] Colace 100 MG Oral Capsule 12/22/2020 - 01/21/2021 Pro vider: Danish Hartman MD Diagnosis: 1-2 tablets daily, as needed, AFTER SURGERY Last Documented On 3:28PM By Danish Hartman ; [facility], [facility] Doxycycline Hyclate 100 MG O ral Capsule 12/22/2020 - 12/25/2020 Provider: Danish Hartman MD Diagnosis: twice a day Last Documented On 3:27PM By Danish Hartman ; [facility], [facility] Aspirin Adult Low Strength 8 1 MG Oral Tablet Delayed Release 12/22/2020 - 02/05/2021 Provider: Danish Hartman MD Diagnosis: twice a day Last Documented On 3:26PM By Danish Hartman ; [facility] Zofran 4 MG Oral Tablet 12/22/2020 - 01/21/2021 Provid er: Danish Hartman MD Diagnosis: 1 po q 6 to 8 hrs prn pain t alex 1 tablet every 6-8hrs for nausea, AFTER SURGERY Last Documented On 1 3:26PM By Danish Hartman ; [facility], [facility] Ultram 50 MG Oral Tablet 12/22/2020 - 01/01/2021 Provi cleo: Danish Hartman MD Diagnosis: 1-2 p o q 6-8h take 1-2 tabl ets every 6-8 hours for breakthrough post op pain Last Documented On 3:35PM By Danish Hartman ; [facility] oxyCODONE HCl 5 MG Oral Tablet 12/22/2020 - 12/27/2020 Provider: Danish Hartman MD Diagnosis: take 1-2 tablets every 4-6hrs for post op pain Last Documented On 3:35PM By Danish Hartman ; [facility], [facility] oxyCODONE HCl 5 MG [...] 01/12/2021 Last Documented On 2 10:06AM ; [facility] Not exercising regularly 01/12/2021 Last Documented On 2 10:06AM ; [facility] Not using drugs 01/12/2021 Last Documented On 2 10:06AM ; [facility] Non-smoker 10/06/2020 Last Documented On 2 10:06AM ; [facility] No tobacco use 10/08/2018 Last Documented On 2 10:06AM ; [facility] Smoking status : Never smoker 10/08/2018 Last Documented On 2 10:06AM ; [facility], [facility] Procedures and Surgical History Includes: Procedures from this encounter Procedures Code Diagnosis Performing Provider Service L ocation Service Date use of tobacco assessment performed 1000F Last Documented On 2 10:06AM ; [facility], [facility] an X-ray was performed 79374 Last Documented On 2 10:06AM ; [facility], [facility] an MRI was performed 42050 Last Documented On 2 10:06AM ; [facility] History of EKG Last Documented On 2 10:06AM ; [facility], [facility] History of Blood Tests Last Documented On 2 10:06AM ; [facility], [facility] Medical History Includes: Medical History addressed during this encounter Description Last Updated Anemia 01/12/2021 Last Documented On 2 10:06AM ; [facility] Arthritis 01/12/2021 Last Documented On 2 10:06AM ; [facility] History of diabetes mellitus 01/12/2021 Last Documented On 2 10:06AM ; [facility] History of diverticulitis of colon 01/12 Last Documented On 2 10:06AM ; [facility] History of Gallbladder 01/12/2021 Last Documented On 2 10:06AM ; [facility] History of heart disease 01/12/2021 Last Documented On 2 10:06AM ; [facility] History of Rheumatology 01/12/2021 Last Documented On 2 10:06AM ; [facility], [facility] Hypertension 01/12/2021 Last Documented On 2 10:06AM ; [facility], [facility] Past Surgical History: RTC RT ~PKR LT ~H ernia 01/12/2021 Last Documented On 2 10:06AM ; [facility], [facility] Sleep Apnea 01/12/2021 Last Documented On 2 10:06AM ; [facility] Total knee arthroplasty 01/12/2021 Last Documented On 2 10:06AM ; [facility], [facility] Recent immunization for flu 2019 021 Last Documented On 2 10:06AM ; [facility], [facility] Recent immunization for pneumococcal pne umonia 201901/12/2021 Last Documented On 2 10:06AM ; [facility], [facility] Family History Includes: Family History addressed during this encounter Description Last Updated Diabetes mellitus 01/12/2021 Last Documented On 2 10:06AM ; [facility] Family history of cancer 01/12/2021 Last Documented On 2 10:06AM ; [facility] Family history of heart disease 01/13/20 21 Last Documented On 2 10:06AM ; [facility] Family history of hypertension 1 Last Documented On 2 10:06AM ; [facility] Family history of osteoporosis 1 Last Documented On 2 10:06AM ; [facility] Review of Systems Includes: [...] Active Last Documented On 2 1:07PM ; [facility] Encounters Encounter Provider Location Date Check-In Time Check- Out Time Diagnosis Post Op Danish Hartman MD [facility] 2 9:50AM 10:50AM Insurance Includes: Active Insurance Policies Plan Name Member ID Group # Subscriber Relationship Effect jim Dates 1 - [facility] [id number] [place] III Self Clinical Notes Includes: Clinical Notes from this encounter No Clinical Notes Recorded
[2024-07-24] MEDS: CLOPIDOGREL 75MG TAB 75 MG PO (08:39)
--- NOTE | 2024-07-24 09:19 | CT_ITS ---
FINAL REPORT TECHNIQUE: Thin section axial CT images with coronal and sagittal reformats were performed of the right foot. This study was performed with techniques to keep radiation doses as low as reasonably achievable (ALARA). Individualized dose reduction techniques using automated exposure control or adjustment of mA and/or kV according to the patient''s size were employed. CLINICAL HISTORY: eval right middle toe, osteomyelitis? COMPARISON: None FINDINGS: There is prominent soft tissue edema over the dorsum of the foot measuring 3 cm. Diffuse soft tissue edema is noted about the ankle. There are moderate vascular calcifications. Hypertrophic changes, sclerosis, and irregularity of the tarsal bones may be due to osteoarthritis or early neuropathic changes. There is no evidence of bony erosion, periosteal reaction, or foreign body. IMPRESSION: Extensive edema consistent with cellulitis. Possible early neuropathic changes. No evidence of acute osteomyelitis. Reviewed, Interpreted and Dictated by Nirav Hernandes MD Transcribed by Tiara Alcantar Authenticated and [facility]
--- NOTE | 2024-07-24 09:27 | HMH.PHAINT1 ---
Pharmacy Intervention Comments: MED LIST COMPARED TO PHARMACY FILL HX AND OFFICE VISITS.
--- NOTE | 2024-07-24 10:33 | HMH.PTEV ---
Physical Therapy Evaluation Rehab PT IP Evaluation Start: 07/23/24 23:04 Freq: ONCE Status: Active Protocol: Document 07/24/24 09:50 PHOTRESSA (Rec: 07/24/24 10:33 PHORNE [id number]) Subjective/History History History 74-year-old male presenting to ER with acute encephalopathy. Past medical history of atrial flutter on Xarelto (currently sinus ) , latent tuberculosis, rheumatoid arthritis, CAD (s/p pci, Left main, LAD, circumflex, ramus) most recent 05/2024, peripheral arterial disease, diabetes, lymphedema. Admitted with sepsis secondary to right lower extremity cellulitis. NSTEMI type II given significant tachycardia 85% max heart rate with ST depressions anterolaterally, all secondary to sepsis and demand ischemia . Patient currently lives at home with his and is independent with all mobility at baseline. He does not currently use an AD for ambulation. Subjective Subjective Patient presents sitting in bedside chair with 2 family members in room. He is alert and oriented x4 and very willing to participate in therapy this am. Pt states that he gets SOA with walking and that he feels some numbness/tingling in his R leg during ambulation. Pt returned to bedside chair with call light in reach. [facility] How much help from another person do you currently need... Turning from your back to your side None while in a flat bed without using bedrails? Moving from lying on back to sitting on None the side of a flat bed without using bedrails? Moving to and from a bed to a chair ( None including a wheelchair)? Standing up from a chair using your arms None ? (e.g., wheelchair, bedside chair) Walking in hospital room? None Climbing 3-5 steps with a railing? None Mobility Score 24 Mobility Level [facility] Mobility Calculator Mobility 8 Walk 250 feet or more Rehab PT IP Eval Objective Appearance Patient Behavior Appropriate,Cooperative Patient Orientation Person,Place,Time Difficulty following instructions none Speech Pattern Clear,Appropriate,Coherent Ambulation Patient Able to Ambulate Yes Ambulation Observation IP General Gait Pattern Observation Shuffling Step Ambulation Distance (feet) 100 Ambulation Assistive Device None Ambulation Ability Contact Guard/Hand Hold Balance Ability to Arise Able, w/o using arms Sitting Balance Steady, safe Standing Balance Narrow stance w/o support Dynamic Sitting Balance Ability Normal Dynamic Standing Balance Ability Normal Transfers Chair Transfer Ability Independent Sit to Stand Chair Transfer Ability Independent Rehab PT IP prob,goals,plan Problems Date of Evaluation: 07/24/24 Discharge Plan PT Discharge Plan Patient is currently most appropriate to return home once medically stable for d/c. Skilled acute therapy is currently not indicated as he demonstrated the ability to ambulate independently, with gait deviation likely due to R LE swelling. Recommend outpatient lymphedema therapy for further management of chronic lymphedema. Eval Complexity Eval Charge Codes 86343 - High Complexity PHYSICIAN CERTIFICATION: I certify the specified therapy services for [place] Alford III are required, authorized, and reviewed every 30 days.
[2024-07-24 11:23] LABS: POC Glucose,Bedside 163 (70-110)
--- NOTE | 2024-07-24 14:17 | P.CONCA_ITS ---
History of Present Illness History of Present Illness Consult date: 07/24/24 Requesting physician: De Palacio Chief complaint: ams History of present illness: This is a 74-year-old white male with past medical history of coronary artery di sease with multiple stents most recently RIYA to circumflex and angioplasty to LAD May 2024, paroxysmal atrial fibrillation on Xarelto, carotid artery stenosis, peripheral artery disease, latent TB, diabetes mellitus and bilateral lower extremity lymphedema who presented to emergency department last night with complaints of altered mental status. came home and found patient to be confused and lying in his own vomit and diarrhea. Also reported new redness to right lower extremity from toes up to knee. Upon presentation to emergency department EKG showed sinus tachycardia rate of 133. Labs as follow: WBC 23.2, hemoglobin 14.1, sodium 137, potassium 4.5, creatinine 1.7, and troponin 1.02 trending up to 5.88. CT abdomen pelvis showed mild low-grade colitis in the descending and rectosigmoid colon. Chest CTA was negative for acute findings. CT head was negative for acute findings. Right foot CT was positive for extensive edema consistent with cellulitis with possible early neuropathy changes. No evidence of osteomyelitis. Patient met SIRS criteria and was initiated on sepsis protocol receiving IV antibiotics and fluids. Patient was admitted for sepsis, acute cellulitis of right lower extremity and NSTEMI. Blood pressure and heart rate have improved with fluids. Patient denies chest pain but reports ongoing shortness of breath with minimal exertion. Cardiology was asked to evaluate for elevated troponin with cardiac history. [facility] Disclaimer: The information contained in this section may have been updated after the patient was seen, as this information can be updated by other users. Medical History Vocal cord edema Ringing in right ear Chronic hoarseness Globus sensation Vertigo Recurrent vertigo upon turning head toward the left associated with tinnitus. Diverticulitis IBS (irritable bowel syndrome) Latent tuberculosis Rheumatoid arthritis Viral gastroenteritis Laceration of face Patient is not currently bleeding Atypical angina NSTEMI (non-ST elevated myocardial infarction) Atrial flutter On Xarelto Asbestos exposure Tachycardia Abnormal ECG Preoperative testing Episodic confusion He was referred to epilepsy program, EMU but has decided to cancel the appointment Allergic rhinitis Dyspnea on exertion Latent tuberculosis by blood test Seen by pulmonology at [facility] and prescribed INH, RFP, B6 but he never took the medicine as prescribed Restrictive lung disease Left sided abdominal pain Left shoulder strain Left groin pain Claustrophobia Chronic cough Cognitive complaints 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, word finding difficulty Edema of both lower extremities Decreased pedal pulses Non-healing ulcer of foot Right 3rd distal tip DFU Decreased ROM of right shoulder Right shoulder pain Right shoulder injury Pes planus of both feet Skin lesion Impotence Low back pain Left against medical advice Memory loss Chronic SI joint pain Radiculopathy Neuropathic pain Leg pain, posterior Kidney stone Ingrown toenail of right foot Pre-ulcerative calluses Splinter of toe of left foot Pain of left great toe Cellulitis of great toe of right foot Acute bacterial bronchitis Incurved toenail Diabetes mellitus HA1c- 7.3% 06/06/24 Onychomycosis Pain in both feet Callus of foot Diabetic foot ulcer Acute febrile illness SIRS (systemic inflammatory response syndrome) Left against medical advice Lower extremity edema Epistaxis Encounter for pre-operative cardiovascular clearance Sepsis Urinary incontinence Weakness Cellulitis, leg Obesity (BMI 30-39.9) Acute delirium Cellulitis Severe sepsis SIRS (systemic inflammatory response syndrome) Physical deconditioning Bacterial pneumonia Hypokalemia Bronchitis due to COVID-19 virus Pneumonia due to COVID-19 virus COVID-19 virus infection Exposure to COVID-19 virus Viral syndrome Acute bronchitis Hematuria Kidney stone on right side Multiple renal cysts Cough Diastolic dysfunction Mental status change resolved HTN (hypertension) Dyspnea SOB (shortness of breath) HHD (hypertensive heart disease) Pre-op evaluation Microalbuminuria Enlarged prostate History of IBS Diabetes Acquired lymphedema Surgical History History of cardiac cath History of total right knee replacement History of rotator cuff surgery History of coronary artery stent placement History of cholecystectomy Hx of total knee arthroplasty Family History Other Cancer Cerebral palsy Dementia Diabetes Social History (Updated 07/23/24 @ 22:55 by Angelica John RN) Smoking Status: Never smoker alcohol intake: never counseling provided: none substance use type: denies use current occupational status: employed and retired Travel in the last 8 weeks?: None household members: spouse housing: house caffeine: Yes Have you lived/traveled outside [place] in past 30 days?: No Contact w/someone who lives/traveled outside [place] past 30 days?: No Exposure to someone with infectious disease in past 14 days?: No Do you have a fever (greater than 100.4 F or 38 C)?: No Have you tested positive for COVID-19?: No Exposed to someone with COVID-19 in past 14 days?: No Do you have a sore throat?: No Do you have a cough?: No Do you have any weakness?: No Are you experiencing any nausea/vomitting?: No Do you have any diarrhea?: No Are you experiencing any unusual bleeding?: No Do you have any muscle aches/pain?: No Do you have any abdominal pain?: No Are you experiencing loss of taste or smell?: No Review of Systems Review of Systems Review of systems:: pertinent systems reviewed and negative unless documented below *Musculoskeletal Comments: Swelling and pain Exam Data for Last 24 hours Vital signs and Labs for Last 24 Hours: Temp Pulse Resp BP Pulse Ox O2 Del Method 98.2 F 90 18 95/49 L 98 Room Air, Nasal Cannula 07/24/24 08:00 07/24/24 12:00 07/24/24 10:00 07/24/24 10:00 07/24/24 10:00 07/24/24 11:00 Laboratory Results - last 24 hr 07/23/24 19:30: POC Glucose 160 H 07/23/24 19:37: WBC 23.2 H*, RBC 5.28, Hgb 14.1, Hct 42.2, MCV 79.9 L, MCH 26.7 L, MCHC 33.4, RDW 14.6, Plt Count 207, MPV 10.4, Neut % (Auto) 93.0 H, Lymph % (Auto) 2.9 L, [place] % (Auto) 2.8, Eos % (Auto) 0.0 L, Baso % (Auto) 0.3, Neut # (Auto) 21.6 H, Lymph # (Auto) 0.7, [place] # (Auto) 0.6, Eos # (Auto) 0.0, Baso # (Auto) 0.1, Total Counted 100, Neutrophils % (Manual) 95 H, Lymphocytes % (Manual) 5 L, Platelet Estimate Normal, RBC Morphology Normal, Sodium 137, Potassium 4.5, Chloride 104, Carbon Dioxide 19 L, Anion Gap 18.5 H, BUN 21 H, Creatinine 1.70 H, Estimated Creat Clear 51, Estimated GFR 40 L, Est GFR ( Amer) 48 L, Glucose 167 H, Calcium 9.3, Total Bilirubin 2.9 H, AST 43, ALT 36, Alkaline Phosphatase 91, Troponin I 1.02 H, NT-Pro-B Natriuret Pep 746 H , Total Protein 7.1, Albumin 4.2, Globulin 2.9, Albumin/Globulin Ratio 1.4, Lipase 50, Procalcitonin 4.62 H 07/23/24 19:42: VBG pH 7.45 H, VBG pCO2 27.3 L, VBG pO2 25.8 L, VBG HCO3 18.7 L, VBG Total CO2 19.5 L, VBG O2 Saturation 51.7, VBG Base Excess -5.3 L, VBG Lactic Acid 3.7 H 07/23/24 19:46: SARS-CoV-2 (PCR) Not detected, Influenza A Untype (PCR) Not detected, Influenza Type B (PCR) Not detected 07/23/24 22:08: POC Glucose 152 H 07/23/24 22:34: Lactate 3.2 H, Troponin I 1.76 H 07/23/24 23:37: Urine Color Yellow, Urine Appearance Clear, Urine pH 5.5, Ur Specific [place] 1.025, Urine Protein Negative, Urine Glucose (UA) Negative, Urine Ketones 2+, Urine Blood 1+ A, Urine Nitrate Negative, Urine Bilirubin Negative, Urine Urobilinogen 0.2, Ur Leukocyte Esterase Negative, Urine RBC 3-5, Urine WBC 3-5, Ur Squamous Epith Cells 3-5, Urine Mucus 1+ 07/24/24 01:13: Lactate 1.3, Troponin I 2.86 H 07/24/24 04:17: WBC 20.2 H*, RBC 4.11 L, Hgb 11.4 L D, Hct 32.8 L, MCV 79.8 L, MCH 27.5, MCHC 34.5, RDW 14.7, Plt Count 142 D, MPV 10.2, Neut % (Auto) 92.6 H, Lymph % (Auto) 2.3 L, [place] % (Auto) 3.1, Eos % (Auto) 0.5, Baso % (Auto) 0.2, Neut # (Auto) 18.7 H, Lymph # (Auto) 0.5 L, [place] # (Auto) 0.6, Eos # (Auto) 0.1, Baso # (Auto) 0.1, Total Counted 100, Neutrophils % (Manual) 92 H, Lymphocytes % (Manual) 5 L, Monocytes % (Manual) 3, Platelet Estimate Normal, RBC Morphology Normal, Lactate 1.1, Phosphorus 3.5, Magnesium 1.4 L, Troponin I 5.88 H 07/24/24 05:49: POC Glucose 142 H 07/24/24 11:16: POC Glucose 163 H I & O for Last 24 hours: Intake & Output 07/21/24 07/22/24 07/23/24 07/24/24 23:59 23:59 23:59 23:59 Intake Total 3450 / 3450 1322 / 1322 Output Total 400 / 400 1400 / 1400 Balance 3050 / 3050 -78 / -78 Weight 208 lb 8.917 oz 208 lb 8.917 oz Constitutional Constitutional: no acute distress *Routine Respiratory Exam Respiratory: Present CTA bilaterally and symmetric chest movement *Routine Cardiovascular Exam Cardiovascular: Present RRR, Normal S1 and Normal S2 *Routine Abdominal Exam Abdominal: Present soft and normoactive bowel sounds; Absent tenderness *Routine Extremities Exam Extremities: Present full ROM and normal capillary refill; Absent edema Comments: Bilateral lower extremity swelling present. Erythema noted to right lower extremity from toes to knee. *Routine Skin Exam Skin: Present intact, dry and warm Detailed Neck Exam: Thyroids Thyroid: Absent bruit Meds Home Medications and Allergies Home Medications ?Medication ?Instructions ?Recorded ?Confirmed ?Type furosemide 20 mg tablet 20 mg PO DAILY 03/05/24 07/23/24 History rivaroxaban 15 mg tablet (Xarelto) 15 mg PO QPMWITHMEAL 03/05/24 07/24/24 History tamsulosin 0.4 mg capsule 0.4 mg PO DAILY 03/05/24 07/23/24 History tramadol 50 mg tablet 50 mg PO TID 03/15/24 07/23/24 History metformin 1,000 mg tablet 1,000 mg PO BID #60 tabs 05/29/24 07/23/24 Rx atorvastatin 40 mg tablet 40 mg PO HS 30 days #90 tabs 06/25/24 07/23/24 Rx metoprolol succinate 25 mg 25 mg PO DAILY 30 days #90 tabs 06/25/24 07/23/24 Rx tablet,extended release 24 hr tirzepatide 5 mg/0.5 mL 5 mg (0.5 mL) SQ WEEKLY 90 days 06/28/24 07/23/24 Rx subcutaneous pen injector #6.5 mL (Mckayla) omeprazole 40 mg capsule,delayed 40 mg PO DAILY GERD 90 days #90 07/16/24 07/23/24 Rx release caps clopidogrel 75 mg tablet 75 mg PO DAILY 07/24/24 07/24/24 History diclofenac sodium 1 % topical gel 4 g topical QIDP PRN CHRONIC PAIN 07/24/24 07/24/24 History lidocaine 5 % topical ointment 1 applic topical BIDP PRN Mild 07/24/24 07/24/24 History Pain (Scale Score 1-4) New Prescriptions to Start Prescriptions: Allergies Allergy/AdvReac Type Severity Reaction Status Date / Time Penicillins (PENICILLINS) Allergy Unknown I-ITCHING Verified 07/08/24 14:38 Assessment and Plan *Assessment and plan (1) Cellulitis: Status: Acute Qualifiers: Laterality: right Site of cellulitis: extremity Site of cellulitis of extremity: lower extremity Qualified Code(s): L03.115 - Cellulitis of right lower limb Category: Medical Code(s): L03.90 - Cellulitis, unspecified (2) Sepsis: Status: Acute Qualifiers: Acute renal failure type: unspecified Sepsis acute organ dysfunction status: with acute organ dysfunction Sepsis type: sepsis due to unspecified organism Severe sepsis acute organ dysfunction type: acute renal failure Severe sepsis shock status: with septic shock Qualified Code(s): A41.9 - Sepsis, unspecified organism; R65.21 - Severe sepsis with septic shock; N17.9 - Acute kidney failure, unspecified Category: Medical Code(s): A41.9 - Sepsis, unspecified organism (3) AMS (altered mental status): Status: Acute Qualifiers: Altered mental status type: unspecified Qualified Code(s): R41.82 - Altered mental status, unspecified Category: Medical Code(s): R41.82 - Altered mental status, unspecified (4) CAD (coronary artery disease): Problem Comment: Recent stents Status: Chronic Qualifiers: Associated angina: with stable angina Coronary Disease-Associated Artery/Lesion type: [place] artery [place] vs. transplanted heart: [place] heart Qualified Code(s): I25.118 - Atherosclerotic heart disease of [place] coronary artery with other forms of angina pectoris Category: Medical Code(s): I25.10 - Atherosclerotic heart disease of [place] coronary artery without angina pectoris (5) Paroxysmal atrial fibrillation: Status: Acute Category: Medical Code(s): I48.0 - Paroxysmal atrial fibrillation (6) Elevated troponin: Status: Acute Category: Medical Code(s): R79.89 - Other specified abnormal findings of blood chemistry Plan Acute right lower extremity cellulitis Chronic bilateral lymphedema Acute sepsis CT right foot shows extensive edema consistent with cellulitis with possible early neuropathy changes. No evidence of osteomyelitis present Venous doppler pending Defer management to primary service History of coronary artery disease NSTEMI SOA anginal equivalent Troponin 1.76 trending up to 5.88 in the setting of acute illness with sepsis and tachycardia present EKG without acute ischemic changes noted History of multiple RIYA, last stenting to circumflex and angioplasty to LAD 05/2024 Limited echo today shows an estimated EF of 50% Continue Plavix, statin and beta-dhruv Start Lovenox 1 mg/kg twice daily Plan for left heart catheterization to further evaluate elevated troponin and ongoing shortness of breath in the setting of elevated troponin of almost 6. Discussed risk versus benefits with patient he is agreeable to proceed. History of paroxysmal atrial fibrillation Today is normal sinus rhythm Continue metoprolol. Xarelto on hold for left heart catheterization tomorrow. Receiving Lovenox CV summary 07/24/2024: Echo shows a EF of 50%. Will proceed with left heart catheterization for a troponin of 5.8 with shortness of breath. Discussed risk versus benefits with patient he is agreeable to proceed. Patient will need to be n.p.o. after midnight. Cardiac meds: Plavix 75 mg p.o. daily Atorvastatin 40 mg p.o. daily Metoprolol succinate 25 mg p.o. daily Xarelto 15 mg p.o. daily-hold for left heart cath Start Lovenox 1 mg/kg twice daily
--- NOTE | 2024-07-24 14:37 | CA_ITS ---
FINAL REPORT TECHNIQUE: Multiple transverse and longitudinal images were performed of the right femoral-popliteal deep venous system with augmentation and compression maneuvers. CLINICAL HISTORY: RLE Lymphedema. Red , warm angry leg. 2020 R TKR. Cardiac Stents COMPARISON: None FINDINGS: Right lower extremity duplex ultrasound demonstrates normal flow in the deep venous system. There is no abnormal echogenicity to suggest thrombus. There is normal compression and augmentation. Evaluation of the calf was somewhat limited secondary to marked edema in the soft tissues. However, no evidence of deep venous thrombosis is identified. IMPRESSION: No evidence of right DVT. Reviewed, Interpreted and Dictated by Nirav Hernandes MD Transcribed by Audrey Hinson Authenticated and [facility]
[2024-07-24] MEDS: ONDANSETRON 4MG/2ML VIAL 4 MG IV (14:47)
[2024-07-24 16:30] LABS: POC Glucose,Bedside 201 (70-110)
[2024-07-24] MEDS: ENOXAPARIN 100MG/ML SYRINGE 95 MG SUBCUT (16:32)
[2024-07-24] MEDS: VANCOMYCIN/WATER FOR INJ (PEG) 1.5 GM/300 ML PIGGYBACK IV (16:33)
--- NOTE | 2024-07-24 18:39 | EXP.ACUTE.PN ---
Subjective *Date: 07/24/24 *Time: 18:39 Interval history: ContinuePatient feeling somewhat better today. Alert and oriented x 2. Denies chest pain or shortness of breath. Feeling improvement in pain in his leg. Stable on room air. Blood pressure stabilized. Elevated, 5.8 this morning on labs. Cardiology evaluating today. Medical Exam Vital signs and Labs for Last 24 Hours: Vital Signs Temp Pulse Pulse Resp BP BP Pulse Ox 07/24/24 18:00 96 H 17 141/77 H 97 07/24/24 17:00 07/24/24 16:00 98 H 17 137/71 97 07/24/24 16:00 100 H 07/24/24 15:00 07/24/24 14:00 86 17 140/78 98 07/24/24 14:00 98 07/24/24 13:00 07/24/24 12:00 90 18 112/58 L 100 07/24/24 12:00 90 07/24/24 11:00 07/24/24 10:00 80 18 95/49 L 98 07/24/24 09:00 87 18 111/45 L 97 07/24/24 09:00 07/24/24 08:32 100 H 07/24/24 08:00 98.2 F 96 H 19 128/71 98 07/24/24 07:50 94 L 07/24/24 07:00 101 H 22 110/69 100 07/24/24 06:48 07/24/24 06:00 87 18 136/70 96 07/24/24 05:40 97 07/24/24 05:00 100 H 21 129/71 93 L 07/24/24 05:00 07/24/24 04:00 95 H 07/24/24 04:00 97.8 F 94 H 22 133/67 98 07/24/24 03:00 07/24/24 03:00 101 H 23 104/54 L 96 07/24/24 02:00 98.1 F 102 H 23 117/71 96 07/24/24 01:05 98 07/24/24 01:00 07/24/24 01:00 111 H 11 L 136/72 97 07/24/24 00:00 118 H 07/24/24 00:00 116 H 23 113/57 L 95 07/23/24 23:35 101.4 F H 07/23/24 23:00 07/23/24 23:00 122 H 14 113/57 L 96 07/23/24 22:45 124 H 07/23/24 22:00 102.1 F H 128 H 16 134/50 L 96 07/23/24 21:58 98.5 F 87 20 138/68 07/23/24 21:07 123 H 98 07/23/24 19:37 129 H 108/64 L 95 07/23/24 19:17 98.4 F 135 H 20 104/75 L 100 O2 Del Method 07/24/24 18:00 Room Air 07/24/24 17:00 Room Air 07/24/24 16:00 Room Air 07/24/24 16:00 07/24/24 15:00 Room Air 07/24/24 14:00 Room Air 07/24/24 14:00 Room Air 07/24/24 13:00 Room Air 07/24/24 12:00 Room Air 07/24/24 12:00 07/24/24 11:00 Room Air 07/24/24 10:00 Room Air 07/24/24 09:00 Room Air 07/24/24 09:00 Room Air 07/24/24 08:32 07/24/24 08:00 Room Air 07/24/24 07:50 Room Air 07/24/24 07:00 Room Air 07/24/24 06:48 Room Air 07/24/24 06:00 Room Air 07/24/24 05:40 Room Air 07/24/24 05:00 Room Air 07/24/24 05:00 Room Air 07/24/24 04:00 07/24/24 04:00 Room Air 07/24/24 03:00 Room Air 07/24/24 03:00 Room Air 07/24/24 02:00 Room Air 07/24/24 01:05 Room Air 07/24/24 01:00 Room Air 07/24/24 01:00 Room Air 07/24/24 00:00 07/24/24 00:00 Room Air 07/23/24 23:35 07/23/24 23:00 Room Air 07/23/24 23:00 Room Air 07/23/24 22:45 07/23/24 22:00 Room Air 07/23/24 21:58 Room Air 07/23/24 21:07 Room Air 07/23/24 19:37 07/23/24 19:17 Room Air Intake and Output 07/24/24 07/24/24 07/24/24 07:59 15:59 23:59 Intake Total 1682 / 3472 1790 / 3472 Output Total 400 / 1400 1000 / 1400 Balance -400 / 2072 682 / 2072 1790 / 2072 Intake: Intake, Oral Amount 600 / 1590 990 / 1590 Intake, Total IV Amount 1082 / 1882 800 / 1882 0.9 % Sodium Chloride 1000ML 1, 500 / 500 000 ml @ 150 mls/hr IV .Q6H40M [facility] Rx#:[id number] Lactated Ringers 1000ML 1,000 1082 / 1082 ml @ 999 mls/hr IV .Q1H1M [facility] Rx#:[id number] Vancomycin/Water For Inj (Peg) 300 / 300 1.5 gm In 300 ml @ 150 mls/hr IV Q24H [facility] Rx#:[id number] Output: Output, Urine Amount 400 / 1400 1000 / 1400 Other: Number of Voids 1 Number of Unmeasured Voids 0 1 Number of Bowel Movements 1 Weight 94.6 kg Patient Weight 07/24/24 23:59 Weight 94.6 kg Laboratory Results - last 24 hr 07/23/24 19:30: POC Glucose 160 H 07/23/24 19:37: WBC 23.2 H*, RBC 5.28, Hgb 14.1, Hct 42.2, MCV 79.9 L, MCH 26.7 L, MCHC 33.4, RDW 14.6, Plt Count 207, MPV 10.4, Neut % (Auto) 93.0 H, Lymph % (Auto) 2.9 L, [place] % (Auto) 2.8, Eos % (Auto) 0.0 L, Baso % (Auto) 0.3, Neut # (Auto) 21.6 H, Lymph # (Auto) 0.7, [place] # (Auto) 0.6, Eos # (Auto) 0.0, Baso # (Auto) 0.1, Total Counted 100, Neutrophils % (Manual) 95 H, Lymphocytes % (Manual) 5 L, Platelet Estimate Normal, RBC Morphology Normal, Sodium 137, Potassium 4.5, Chloride 104, Carbon Dioxide 19 L, Anion Gap 18.5 H, BUN 21 H, Creatinine 1.70 H, Estimated Creat Clear 51, Estimated GFR 40 L, Est GFR ( Amer) 48 L, Glucose 167 H, Calcium 9.3, Total Bilirubin 2.9 H, AST 43, ALT 36, Alkaline Phosphatase 91, Troponin I 1.02 H, NT-Pro-B Natriuret Pep 746 H, Total Protein 7.1, Albumin 4.2, Globulin 2.9, Albumin/Globulin Ratio 1.4, Lipase 50, Procalcitonin 4.62 H 07/23/24 19:42: VBG pH 7.45 H, VBG pCO2 27.3 L, VBG pO2 25.8 L, VBG HCO3 18.7 L, VBG Total CO2 19.5 L, VBG O2 Saturation 51.7, VBG Base Excess -5.3 L, VBG Lactic Acid 3.7 H 07/23/24 19:46: SARS-CoV-2 (PCR) Not detected, Influenza A Untype (PCR) Not detected, Influenza Type B (PCR) Not detected 07/23/24 22:08: POC Glucose 152 H 07/23/24 22:34: Lactate 3.2 H, Troponin I 1.76 H 07/23/24 23:37: Urine Color Yellow, Urine Appearance Clear, Urine pH 5.5, Ur Specific [place] 1.025, Urine Protein Negative, Urine Glucose (UA) Negative, Urine Ketones 2+, Urine Blood 1+ A, Urine Nitrate Negative, Urine Bilirubin Negative, Urine Urobilinogen 0.2, Ur Leukocyte Esterase Negative, Urine RBC 3-5, Urine WBC 3-5, Ur Squamous Epith Cells 3-5, Urine Mucus 1+ 07/24/24 01:13: Lactate 1.3, Troponin I 2.86 H 07/24/24 04:17: WBC 20.2 H*, RBC 4.11 L, Hgb 11.4 L D, Hct 32.8 L, MCV 79.8 L, MCH 27.5, MCHC 34.5, RDW 14.7, Plt Count 142 D, MPV 10.2, Neut % (Auto) 92.6 H, Lymph % (Auto) 2.3 L, [place] % (Auto) 3.1, Eos % (Auto) 0.5, Baso % (Auto) 0.2, Neut # (Auto) 18.7 H, Lymph # (Auto) 0.5 L, [place] # (Auto) 0.6, Eos # (Auto) 0.1, Baso # (Auto) 0.1, Total Counted 100, Neutrophils % (Manual) 92 H, Lymphocytes % (Manual) 5 L, Monocytes % (Manual) 3, Platelet Estimate Normal, RBC Morphology Normal, Lactate 1.1, Phosphorus 3.5, Magnesium 1.4 L, Troponin I 5.88 H 07/24/24 05:49: POC Glucose 142 H 07/24/24 11:16: POC Glucose 163 H 07/24/24 16:20: POC Glucose 201 H I & O for Labs for Last 24 Hours: Intake & Output 07/21/24 07/22/24 07/23/24 07/24/24 23:59 23:59 23:59 23:59 Intake Total 3450 / 3450 3472 / 3472 Output Total 400 / 400 1400 / 1400 Balance 3050 / 3050 2071 / 2071 Weight 94.6 kg 94.6 kg Constitutional: Present mild distress, obese, chronically ill appearing and cooperative Head: Present atraumatic and normocephalic ENT: Present normal exam Respiratory: Present normal respiratory effort; Absent rhonchi, wheezes or crackles Cardiac: Present Reg Rate and Rhythm GI: Present soft and normal bowel sounds; Absent distention or tenderness Extremities: Present normal inspection, full ROM and edema (4+ edema to thigh on right leg, red and tender. Left leg with 3+ edema) Skin: Present intact and erythema (To knee on right leg, none on left leg) Neuro: Present Grossly Intact, alert, awake, oriented x 3 and moves all extremities Assessment and Plan *Assessment and plan (1) Cellulitis: Status: Acute Qualifiers: Laterality: right Site of cellulitis: extremity Site of cellulitis of extremity: lower extremity Qualified Code(s): L03.115 - Cellulitis of right lower limb Category: Medical Code(s): L03.90 - Cellulitis, unspecified (2) Sepsis: Status: Acute Qualifiers: Acute renal failure type: unspecified Sepsis acute organ dysfunction status: with acute organ dysfunction Sepsis type: sepsis due to unspecified organism Severe sepsis acute organ dysfunction type: acute renal failure Severe sepsis shock status: with septic shock Qualified Code(s): A41.9 - Sepsis, unspecified organism; R65.21 - Severe sepsis with septic shock; N17.9 - Acute kidney failure, unspecified Category: Medical Code(s): A41.9 - Sepsis, unspecified organism (3) AMS (altered mental status): Status: Acute Qualifiers: Altered mental status type: unspecified Qualified Code(s): R41.82 - Altered mental status, unspecified Category: Medical Code(s): R41.82 - Altered mental status, unspecified (4) T2DM (type 2 diabetes mellitus): Status: Chronic Qualifiers: Diabetes mellitus 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 insulin use: without snf use Diabetes mellitus complication status: with circulatory complication Diabetes mellitus complication detail: with other circulatory complications Qualified Code(s): E11.59 - Type 2 diabetes mellitus with other circulatory complications Category: Medical Code(s): E11.9 - Type 2 diabetes mellitus without complications (5) Peripheral artery disease: Status: Chronic Category: Medical Code(s): I73.9 - Peripheral vascular disease, unspecified (6) Lymphedema of extremity: Status: Acute Category: Medical Code(s): I89.0 - Lymphedema, not elsewhere classified (7) HTN (hypertension): Status: Acute Qualifiers: Hypertension type: essential hypertension Qualified Code(s): I10 - Essential (primary) hypertension Category: Medical Code(s): I10 - Essential (primary) hypertension (8) Atrial flutter: Problem Comment: On Inocenciarelto Status: Resolved Qualifiers: Atrial flutter type: typical Qualified Code(s): I48.3 - Typical atrial flutter Category: Medical Code(s): I48.92 - Unspecified atrial flutter (9) CAD (coronary artery disease): Problem Comment: Recent stents Status: Chronic Qualifiers: Coronary Disease-Associated Artery/Lesion type: [place] artery [place] vs. transplanted heart: [place] heart Associated angina: with stable angina Qualified Code(s): I25.118 - Atherosclerotic heart disease of [place] coronary artery with other forms of angina pectoris Category: Medical Code(s): I25.10 - Atherosclerotic heart disease of [place] coronary artery without angina pectoris (10) Paroxysmal atrial fibrillation: Status: Acute Category: Medical Code(s): I48.0 - Paroxysmal atrial fibrillation (11) Elevated troponin: Status: Acute Category: Medical Code(s): R79.89 - Other specified abnormal findings of blood chemistry Plan Admitted with sepsis secondary to right lower extremity cellulitis. Has received antibiotics and multiple fluid boluses with improvement of hypotension. NSTEMI type II given significant tachycardia 85% max heart rate with ST depressions anterolaterally, all secondary to sepsis and demand ischemia. Continues to require inpatient management, continue stepdown level of care. Cardiology evaluating today. Showing improvement on labs from sepsis. Problems addressed as follows: Sepsis Right lower extremity cellulitis - Procalcitonin elevated at 4.6 - White count still elevated this morning at 20,000, hemoglobin 11.4. Showing some improvement with stabilization of blood pressure. - Continue broad-spectrum antibiotics - Continue vancomycin IV and ceftriaxone 1 g daily -Will consider diuresis in the morning pending stabilization of blood pressure for edema component - Hydrocodone every 4 hours as needed for pain, monitor for toxicity Acute encephalopathy - CT no acute findings, suspect all related to sepsis, improving with supportive management - Improving today. Suspect secondary to sepsis. NSTEMI, type II CAD Paroxysmal A-fib -Discussed case with cardiology today, recommend proceeding with left heart cath tomorrow due to elevation of troponin peaking at 5.88. -Echo obtained shows EF of 50%. -Continue Plavix 75 mg daily, Lipitor 40 mg daily, metoprolol succinate 25 mg daily; hold Xarelto 15 mg daily and bridge with Lovenox 1 mg/kg twice daily -Monitor on telemetry overnight GUILLERMO: - BUN 21, creatinine 1.7 on morning labs. Potassium normal at 4.5, magnesium 1.4. Replacing per protocol. - Repeat CBC, CMP, magnesium, ESR and procalcitonin ordered for the morning. Full code Cardiac diet, n.p.o. at midnight Lovenox 1 mg/kg twice daily
[2024-07-24 20:10] LABS: POC Glucose,Bedside 142 (70-110)
[2024-07-24] MEDS: PANTOPRAZOLE 40MG TABLET 40 MG PO (20:41)
[2024-07-24] MEDS: ATORVASTATIN 40MG TABLET 40 MG PO (20:41)
--- NOTE | 2024-07-24 22:20 | CA_ITS ---
APPROVED REPORT EXAM: Limited 2D Echocardiogram with contrast Lead Java Programmer: Mary Powell CRT Ht: 5 ft 8 in Wt: 208lbs BSA: 2.08 BP: 108/64 mmHg Indications: VA Non STEMI, edema, a flutter, stents 06/18, PAD, rheumatoid arthritis , Lymphedema, latent TB, DM Full echo 06/05/24 50% Definity given Echo Enhancing Agent Indication: Endocardial border delineation Agent(s) / Amount(s) Used: Definity 2 cc Comments: Definity given M-Mode Dimensions RVDd 2.35 cm (0.9-2.6) LVDd 4.38 cm (3.5-5.7) LVDs 2.46 cm (3.5-5.7) IVSd 1.17 cm (0.6-1.1) PWd 0.78 cm (0.6-1.1) EF (Teich) 75.30% FS 43.80% EDV (Teich) 86.80 mL ESV (Teich) 21.40 mL Other Information Study Quality: Fair Conclusion This is a limited TTE to evaluate for LV systolic function. Limited windows are obtained. Ultrasound enhancing agent is administered to better delineate the LV endocardial borders. The left ventricle is normal in size. There is increased LV wall thickness. There is low normal global LV systolic function. There is mild hypokinesis of the basal inferior LV wall. LVEF is 50%. Electronically signed by : Amara Mckeon MD 07/24/2024 12:46:56
[2024-07-24] MEDS: CEFTRIAXONE SODIUM 2 GM in 0.9 % SODIUM CHLORIDE 100 ML IV (23:10)
[2024-07-25] VITALS (11 sets, daily range): BP systolic 117–159; BP diastolic 67–88; PULSE 69–122; RESP 14–26; TEMP 36.7–37.9; O2SAT 94–99; BMI 30.2
--- NOTE | 2024-07-25 00:13 | ECG_ITS ---
APPROVED REPORT Exam: Resting ECG HR:129 bpm ECG Measurements Heart Rate 129 AXES QRSd 98 QRS 54 QT 298 T 25 QTc 374 Conclusion ATRIAL FLUTTER/TACHYCARDIA WITH RAPID VENTRICULAR RESPONSE NONSPECIFIC ST & T-WAVE ABNORMALITY ABNORMAL RHYTHM ECG UNCONFIRMED REPORT Electronically signed by : Walker Hill MD 07/25/2024 11:30:45
--- NOTE | 2024-07-25 00:16 | PC.NURSE ---
at 0009 nurse noticed pts rhythm changed on monitor. Heart rate in 140s-150s. EKG obtained showing atrial flutter w/ rvr, provider notified. See MAR for new orders.
[2024-07-25] MEDS: dilTIAZem 25MG/5ML VIAL 10 MG IV (00:48)
[2024-07-25] MEDS: METOPROLOL TARTRATE 50MG TABLET 50 MG PO (00:51)
[2024-07-25] MEDS: ACETAMINOPHEN 325MG TAB 650 MG PO (01:34)
[2024-07-25] MEDS: ENOXAPARIN 100MG/ML SYRINGE 95 MG SUBCUT ×2 (04:07→14:56)
[2024-07-25 05:55] LABS: Basophils % 0.2 % (0.1-2.0); Eosinophils % 0.3 % (0.1-12.0); Hematocrit 35.9 % (42.0-52.0); Lymphocytes # 0.7 K/mm3 (0.7-4.5); Lymphocytes % 5.5 % (10-50); Mean Corpuscular HGB Conc 33.4 g/dL (31.8-35.4); Mean Corpuscular Hemoglobin 26.5 pg (27.0-31.2); Mean Corpuscular Volume 79.4 fl (80-94); Mean Platelet Volume 10.1 fl (7.4-10.4); Monocytes # 0.8 K/mm3 (0.1-1.0); Monocytes % 6.5 % (1.7-9.3); Neutrophils # 10.3 K/mm3 (1.8-7.8); Neutrophils % 87.2 % (37.0-80.0); Nucleated Red Blood Cells # 0 10^3/uL; Nucleated Red Blood Cells % 0 %; Platelet Count 140 K/mm3 (142-424); Red Blood Count 4.52 M/mm3 (4.60-6.20); Red Cell Distribution Width 14.8 % (11.5-17.5); Red Cell Distribution Width-SD 42.7 fL; White Blood Count 11.9 K/mm3 (4.8-10.8)
[2024-07-25 05:59] LABS: Anion Gap 4.7 mEq/L (5-15); Blood Urea Nitrogen 11 mg/dl (9-20); Calcium 8.9 mg/dl (8.4-10.2); Carbon Dioxide 24 mmol/L (22.0-30.0); Chloride 108 mmol/L (98-107); Creatinine Clearance Estimated 88 mL/min (50-200); Estimated Glomerular Filt Rate 73 ml/min (>60); GFR (African American) 89 ML/MIN (>60); Glucose 157 mg/dl (74-100); Potassium 3.7 mmoL/L (3.5-5.1); Sodium 133 mmol/L (136-145)
[2024-07-25 06:04] LABS: C-Reactive Protein 147.6 mg/L (0-4)
[2024-07-25 06:18] LABS: POC Glucose,Bedside 143 (70-110)
[2024-07-25 06:23] LABS: Erythrocyte Sedimentation Rate 91 mm/hr (0-20)
[2024-07-25 06:26] LABS: Alanine Aminotransferase 33 U/L (12-78); Albumin/Globulin Ratio 1.3 (1.1-1.8); Alkaline Phosphatase 60 U/L (38-126); Aspartate Amino Transferase 92 U/L (17-59); Bilirubin,Total 1.5 mg/dl (0.2-1.3); Blood Urea Nitrogen 13 mg/dl (9-20); Calcium 8.4 mg/dl (8.4-10.2); Carbon Dioxide 24 mmol/L (22.0-30.0); Chloride 108 mmol/L (98-107); Creatinine Clearance Estimated 88 mL/min (50-200); Estimated Glomerular Filt Rate 83 ml/min (>60); GFR (African American) 100 ML/MIN (>60); Globulin 2.4 g/dL (1.3-3.2); Glucose 152 mg/dl (74-100); Magnesium 1.5 mg/dl (1.6-2.3); Sodium 134 mmol/L (136-145); Total Protein,Serum 5.4 g/dl (6.3-8.2)
[2024-07-25 06:43] LABS: Procalcitonin 2.76 ng/mL (0.0-2.0)
[2024-07-25] MEDS: METOPROLOL SUCCINATE XL 50MG TABLET 50 MG PO ×2 (09:23→20:21)
[2024-07-25] MEDS: CLOPIDOGREL 75MG TAB 75 MG PO (09:23)
[2024-07-25 11:25] LABS: POC Glucose,Bedside 196 (70-110)
--- NOTE | 2024-07-25 11:53 | P.PN_ITS ---
Subjective Subjective Date: 07/25/24 Time: 08:00 Principal diagnosis: Cellulitis LEft leg and nstemi Interval history: Patient developed a heat fever of 104 last night. Morning labs reviewed. Patient denies chest pain reports ongoing shortness of breath. Exam Data for Last 24 hours Vital signs and Labs for Last 24 Hours: Temp Pulse Resp BP Pulse Ox O2 Del Method 98.0 F 96 H 18 159/88 H 97 Room Air 07/25/24 08:00 07/25/24 08:00 07/25/24 08:00 07/25/24 08:00 07/25/24 08:00 07/25/24 09:00 Laboratory Results - last 24 hr 07/24/24 16:20: POC Glucose 201 H 07/24/24 19:40: POC Glucose 142 H 07/25/24 05:30: WBC 11.9 H D, RBC 4.52 L, Hgb 12.0 L, Hct 35.9 L, MCV 79.4 L, MCH 26.5 L, MCHC 33.4, RDW 14.8, Plt Count 140 L, MPV 10.1, Neut % (Auto) 87.2 H , Lymph % (Auto) 5.5 L, [place] % (Auto) 6.5, Eos % (Auto) 0.3, Baso % (Auto) 0.2, Neut # (Auto) 10.3 H, Lymph # (Auto) 0.7, [place] # (Auto) 0.8, Eos # (Auto) 0.0, Baso # (Auto) 0.0, ESR 91 H, Sodium 133 L 07/25/24 05:30: Sodium 134 L, Potassium 3.7 07/25/24 05:30: Potassium 4.0, Chloride 108 H 07/25/24 05:30: Chloride 108 H, Carbon Dioxide 24 07/25/24 05:30: Carbon Dioxide 24, Anion Gap 4.7 L 07/25/24 05:30: Anion Gap 6.0, BUN 11 D 07/25/24 05:30: BUN 13, Creatinine 1.00 D 07/25/24 05:30: Creatinine 0.90, Estimated Creat Clear 88 07/25/24 05:30: Estimated Creat Clear 88, Estimated GFR 73 07/25/24 05:30: Estimated GFR 83, Est GFR ( Amer) 89 D 07/25/24 05:30: Est GFR ( Amer) 100, Glucose 157 H 07/25/24 05:30: Glucose 152 H, Calcium 8.9 07/25/24 05:30: Calcium 8.4, Magnesium 1.5 L, Total Bilirubin 1.5 H, AST 92 H D, ALT 33, Alkaline Phosphatase 60, C-Reactive Protein 147.6 H, Total Protein 5.4 L , Albumin 3.0 L D, Globulin 2.4, Albumin/Globulin Ratio 1.3, Procalcitonin 2.76 H 07/25/24 05:58: POC Glucose 143 H 07/25/24 11:09: POC Glucose 196 H I & O for Last 24 hours: Intake & Output 07/22/24 07/23/24 07/24/24 07/25/24 23:59 23:59 23:59 23:59 Intake Total 3450 / 3450 3472 / 3672 200 / 200 Output Total 400 / 400 1700 / 2000 900 / 900 Balance 3050 / 3050 1772 / 1672 -700 / -700 Weight 208 lb 8.917 oz 208 lb 8.917 oz 204 lb 4.8 oz Microbiology Reports for the Last 24 Hours: Microbiology 07/23/24 19:46 Blood Blood Culture - Preliminary NO GROWTH AFTER 24 HOURS 07/23/24 19:39 Blood Blood Culture - Preliminary NO GROWTH AFTER 24 HOURS Constitutional Constitutional: no acute distress *Routine Respiratory Exam Respiratory: Present CTA bilaterally and symmetric chest movement *Routine Cardiovascular Exam Cardiovascular: Present RRR, Normal S1 and Normal S2 *Routine Abdominal Exam Abdominal: Present soft and normoactive bowel sounds; Absent tenderness *Routine Extremities Exam Extremities: Present edema, full ROM and normal capillary refill Comments: Bilateral lower extremity edema from chronic lymphedema. Right leg appears less red than it did yesterday. *Routine Skin Exam Skin: Present intact, dry and warm Detailed Neck Exam: Thyroids Thyroid: Absent bruit Progress Note: A&P Assessment and plan (1) Cellulitis: Status: Acute (2) Sepsis: Status: Acute (3) AMS (altered mental status): Status: Acute (4) T2DM (type 2 diabetes mellitus): Status: Chronic (5) Peripheral artery disease: Status: Chronic (6) Lymphedema of extremity: Status: Acute (7) HTN (hypertension): Status: Acute (8) Atrial flutter: Problem details: On Xarelto Status: Resolved (9) CAD (coronary artery disease): Problem details: Recent stents Status: Chronic (10) Paroxysmal atrial fibrillation: Status: Acute (11) Elevated troponin: Status: Acute Assessment and Plan Assessment and Plan for All Diagnoses:: Acute right lower extremity cellulitis Chronic bilateral lymphedema Acute sepsis CT right foot shows extensive edema consistent with cellulitis with possible early neuropathy changes. No evidence of osteomyelitis present Venous doppler negative for dvt Defer management to primary service History of coronary artery disease NSTEMI SOA anginal equivalent Troponin 1.76 trending up to 5.88 in the setting of acute illness with sepsis and tachycardia present EKG without acute ischemic changes noted History of multiple RIYA, last stenting to circumflex and angioplasty to LAD 05/2024 Limited echo today shows an estimated EF of 50% Continue Plavix, statin and beta-dhruv Continue Lovenox 1 mg/kg twice daily Left heart cath postponed until tomorrow due to fever last night History of paroxysmal atrial fibrillation Today is normal sinus rhythm Metoprolol increased due to tachycardia. Xarelto on hold for left heart catheterization tomorrow. Receiving Lovenox CV summary 07/25/2024: Echo shows a EF of 50%. Will proceed with left heart catheterization tomorrow. Cardiac meds: Plavix 75 mg p.o. daily Atorvastatin 40 mg p.o. daily Metoprolol succinate 50 mg p.o. daily Xarelto 15 mg p.o. daily-hold for left heart cath Start Lovenox 1 mg/kg twice daily
[2024-07-25] MEDS: MAGNESIUM SULFATE IN WATER 2 GM/50 ML PIGGYBACK IV ×2 (15:51→17:50)
[2024-07-25 16:19] LABS: POC Glucose,Bedside 139 (70-110)
[2024-07-25] MEDS: VANCOMYCIN/WATER FOR INJ (PEG) 1.5 GM/300 ML PIGGYBACK IV (17:51)
--- NOTE | 2024-07-25 18:40 | PC.NURSE ---
No acute changes. Remains afebrile. Has been up to chair majority of shift. Ambulates independently w/ no safety concerns. has been at bedside majority of shift. No needs voiced. Call chang w/in reach. POC ongoing.
[2024-07-25 20:03] LABS: POC Glucose,Bedside 158 (70-110)
[2024-07-25] MEDS: TAMSULOSIN 0.4MG CAPSULE 0.4 MG PO (20:20)
[2024-07-25] MEDS: PANTOPRAZOLE 40MG TABLET 40 MG PO (20:20)
[2024-07-25] MEDS: ATORVASTATIN 40MG TABLET 40 MG PO (20:20)
[2024-07-25] MEDS: CEFTRIAXONE SODIUM 2 GM in 0.9 % SODIUM CHLORIDE 100 ML IV (21:30)
--- NOTE | 2024-07-25 21:47 | P.PN_ITS ---
Subjective *Date: 07/25/24 *Time: 21:47 Interval history: Patient states he is feeling better, did have fever overnight. Denies nausea or vomiting. Alert and oriented baseline. Tolerating p.o. intake. Had an episode of a flutter overnight, responding to increased dose of metoprolol. Leg feeling better with decreased redness on exam. Medical Exam Vital signs and Labs for Last 24 Hours: Vital Signs Temp Pulse Pulse Resp BP Pulse Ox O2 Del Method 07/25/24 21:00 Room Air 07/25/24 20:00 77 07/25/24 20:00 Room Air 07/25/24 20:00 86 14 126/67 94 L Room Air 07/25/24 18:31 Room Air 07/25/24 17:00 Room Air 07/25/24 16:00 80 07/25/24 16:00 84 18 117/67 99 Room Air 07/25/24 15:58 98.1 F 69 20 117/67 99 Room Air 07/25/24 15:58 79 07/25/24 15:00 Room Air 07/25/24 13:00 Room Air 07/25/24 12:00 98.6 F 79 18 140/77 96 Room Air 07/25/24 12:00 70 07/25/24 11:00 Room Air 07/25/24 09:00 Room Air 07/25/24 08:00 97 Room Air 07/25/24 08:00 100 H 07/25/24 08:00 98.0 F 96 H 18 159/88 H 98 Room Air 07/25/24 07:45 99 H 15 159/88 H 98 Room Air 07/25/24 07:00 Room Air 07/25/24 06:00 92 H 25 H 129/67 99 Room Air 07/25/24 05:00 Room Air 07/25/24 04:00 101 H 07/25/24 04:00 100.3 F H 103 H 22 123/73 97 Room Air 07/25/24 03:00 Room Air 07/25/24 02:59 122 H 97 Room Air 07/25/24 02:00 99 H 24 147/86 H 96 Room Air 07/25/24 01:00 Room Air 07/25/24 00:00 96 H 07/25/24 00:00 100 H 26 H 126/75 97 Room Air 07/24/24 23:00 Room Air 07/24/24 22:22 101.6 F H 07/24/24 22:00 109 H 12 167/92 H 97 Room Air Intake and Output 07/25/24 07/25/24 07/25/24 07:59 15:59 23:59 Intake Total 200 / 1390 710 / 1390 480 / 1390 Output Total 900 / 900 0 / 900 0 / 900 Balance -700 / 490 710 / 490 480 / 490 Intake: Intake, Oral Amount 710 / 1190 480 / 1190 Intake, Total IV Amount 100 / 100 Ceftriaxone Sodium 2 gm In 0.9 100 / 100 % Sodium Chloride 100 ml @ 200 mls/hr IV Q24H [facility] Rx#:[id number] Infusion Intake 100 / 100 Ceftriaxone Sodium 2 gm In 0.9 100 / 100 % Sodium Chloride 100 ml @ 200 mls/hr IV Q24H [facility] Rx#:[id number] Output: Output, Urine Amount 900 / 900 0 / 900 0 / 900 Other: Number of Voids 1 Number of Unmeasured Voids 1 2 0 Number of Bowel Movements 1 1 1 Weight 92.669 kg Patient Weight 07/25/24 23:59 Weight 92.669 kg Laboratory Results - last 24 hr 07/25/24 05:30: WBC 11.9 H D, RBC 4.52 L, Hgb 12.0 L, Hct 35.9 L, MCV 79.4 L, MCH 26.5 L, MCHC 33.4, RDW 14.8, Plt Count 140 L, MPV 10.1, Neut % (Auto) 87.2 H , Lymph % (Auto) 5.5 L, [place] % (Auto) 6.5, Eos % (Auto) 0.3, Baso % (Auto) 0.2, Neut # (Auto) 10.3 H, Lymph # (Auto) 0.7, [place] # (Auto) 0.8, Eos # (Auto) 0.0, Baso # (Auto) 0.0, ESR 91 H, Sodium 133 L 07/25/24 05:30: Sodium 134 L, Potassium 3.7 07/25/24 05:30: Potassium 4.0, Chloride 108 H 07/25/24 05:30: Chloride 108 H, Carbon Dioxide 24 07/25/24 05:30: Carbon Dioxide 24, Anion Gap 4.7 L 07/25/24 05:30: Anion Gap 6.0, BUN 11 D 07/25/24 05:30: BUN 13, Creatinine 1.00 D 07/25/24 05:30: Creatinine 0.90, Estimated Creat Clear 88 07/25/24 05:30: Estimated Creat Clear 88, Estimated GFR 73 07/25/24 05:30: Estimated GFR 83, Est GFR ( Amer) 89 D 07/25/24 05:30: Est GFR ( Amer) 100, Glucose 157 H 07/25/24 05:30: Glucose 152 H, Calcium 8.9 07/25/24 05:30: Calcium 8.4, Magnesium 1.5 L, Total Bilirubin 1.5 H, AST 92 H D, ALT 33, Alkaline Phosphatase 60, C-Reactive Protein 147.6 H, Total Protein 5.4 L , Albumin 3.0 L D, Globulin 2.4, Albumin/Globulin Ratio 1.3, Procalcitonin 2.76 H 07/25/24 05:58: POC Glucose 143 H 07/25/24 11:09: POC Glucose 196 H 07/25/24 16:12: POC Glucose 139 H 07/25/24 19:52: POC Glucose 158 H I & O for Labs for Last 24 Hours: Intake & Output 07/22/24 07/23/24 07/24/24 07/25/24 23:59 23:59 23:59 23:59 Intake Total 3450 / 3450 3472 / 3672 1390 / 1390 Output Total 400 / 400 1700 / 2000 900 / 900 Balance 3050 / 3050 1772 / 1672 490 / 490 Weight 94.6 kg 94.6 kg 92.669 kg Microbiology Reports for the Last 24 Hours: Microbiology 07/23/24 19:46 Blood Blood Culture - Preliminary NO GROWTH AFTER 48 HOURS 07/23/24 19:39 Blood Blood Culture - Preliminary NO GROWTH AFTER 48 HOURS Constitutional: Present no acute distress, obese, chronically ill appearing and cooperative Head: Present atraumatic and normocephalic ENT: Present normal exam Respiratory: Present normal respiratory effort; Absent rhonchi, wheezes or crackles Cardiac: Present Reg Rate and Rhythm GI: Present soft; Absent distention or tenderness Extremities: Present normal inspection, full ROM and edema (4+ edema to thigh on right leg, red and tender. Left leg with 3+ edema) Skin: Present intact and erythema (To knee on right leg, none on left leg) Neuro: Present Grossly Intact, alert, awake, oriented x 3 and moves all extremities Assessment and Plan *Assessment and plan (1) Cellulitis: Status: Acute Qualifiers: Laterality: right Site of cellulitis: extremity Site of cellulitis of extremity: lower extremity Qualified Code(s): L03.115 - Cellulitis of right lower limb Category: Medical Code(s): L03.90 - Cellulitis, unspecified (2) Sepsis: Status: Acute Qualifiers: Acute renal failure type: unspecified Sepsis acute organ dysfunction status: with acute organ dysfunction Sepsis type: sepsis due to unspecified organism Severe sepsis acute organ dysfunction type: acute renal failure Severe sepsis shock status: with septic shock Qualified Code(s): A41.9 - Sepsis, unspecified organism; R65.21 - Severe sepsis with septic shock; N17.9 - Acute kidney failure, unspecified Category: Medical Code(s): A41.9 - Sepsis, unspecified organism (3) AMS (altered mental status): Status: Acute Qualifiers: Altered mental status type: unspecified Qualified Code(s): R41.82 - Altered mental status, unspecified Category: Medical Code(s): R41.82 - Altered mental status, unspecified (4) T2DM (type 2 diabetes mellitus): Status: Chronic Qualifiers: Diabetes mellitus intermediate manager insulin use: without halfway use Diabetes mellitus complication status: with circulatory complication Diabetes mellitus complication detail: with other circulatory complications Qualified Code(s): E11.59 - Type 2 diabetes mellitus with other circulatory complications Category: Medical Code(s): E11.9 - Type 2 diabetes mellitus without complications (5) Peripheral artery disease: Status: Chronic Category: Medical Code(s): I73.9 - Peripheral vascular disease, unspecified (6) Lymphedema of extremity: Status: Acute Category: Medical Code(s): I89.0 - Lymphedema, not elsewhere classified (7) HTN (hypertension): Status: Acute Qualifiers: Hypertension type: essential hypertension Qualified Code(s): I10 - Essential (primary) hypertension Category: Medical Code(s): I10 - Essential (primary) hypertension (8) Atrial flutter: Problem Comment: On Inocenciarelto Status: Resolved Qualifiers: Atrial flutter type: typical Qualified Code(s): I48.3 - Typical atrial flutter Category: Medical Code(s): I48.92 - Unspecified atrial flutter (9) CAD (coronary artery disease): Problem Comment: Recent stents Status: Chronic Qualifiers: Coronary Disease-Associated Artery/Lesion type: [place] artery [place] vs. transplanted heart: [place] heart Associated angina: with stable angina Qualified Code(s): I25.118 - Atherosclerotic heart disease of [place] coronary artery with other forms of angina pectoris Category: Medical Code(s): I25.10 - Atherosclerotic heart disease of [place] coronary artery without angina pectoris (10) Paroxysmal atrial fibrillation: Status: Acute Category: Medical Code(s): I48.0 - Paroxysmal atrial fibrillation (11) Elevated troponin: Status: Acute Category: Medical Code(s): R79.89 - Other specified abnormal findings of blood chemistry Plan Admitted with sepsis secondary to right lower extremity cellulitis. Has received antibiotics and multiple fluid boluses with improvement of hypotension. NSTEMI type II given significant tachycardia 85% max heart rate with ST depressions anterolaterally, all secondary to sepsis and demand ischemia. Continues to require inpatient management, continue stepdown level of care. Cardiology evaluating today. Showing improvement on labs from sepsis. Will initiate diuresis today. Due to fever, holding on left heart cath. Reevaluate tomorrow. Problems addressed as follows: Sepsis Right lower extremity cellulitis - Procalcitonin elevated but improving from 4.6-2.7. CRP elevated 147. -White count down from 20-11.9. -Reviewed CT of foot, has no abscess or osteomyelitis. Just consistent with cellulitis and edema. -Continue broad-spectrum antibiotics with vancomycin IV and ceftriaxone 1 g daily -Initiate diuresis with Bumex due to edema component -Continue Hydrocodone every 4 hours as needed for pain, monitor for toxicity - Repeat CBC, CMP, magnesium ordered for the morning. NSTEMI, type II CAD Paroxysmal A-fib -Discussed case with cardiology today, recommend proceeding with left heart cath tomorrow instead of today due to fever overnight. -Echo obtained shows EF of 50%. -Continue Plavix 75 mg daily, Lipitor 40 mg daily, metoprolol succinate 25 mg daily; hold Xarelto 15 mg daily and bridge with Lovenox 1 mg/kg twice daily -Monitor on telemetry overnight - Increase metoprolol succinate to 50 mg twice daily GUILLERMO: -Pain, creatinine 0.9. Magnesium 1.5 and potassium 4.0, replacing per protocol. Full code Cardiac diet, n.p.o. at midnight Lovenox 1 mg/kg twice daily
[2024-07-26] VITALS: BP 121/51; PULSE 81; PULSE 85; RESP 14; TEMP 36.9; O2SAT 99
[2024-07-26] MEDS: ENOXAPARIN 100MG/ML SYRINGE 95 MG SUBCUT ×2 (03:01→16:25)
--- NOTE | 2024-07-26 03:26 | PC.NURSE ---
Pt has been NPO since 0000 for possible cardiac cath later today. Pt is AOx4, pleasant. Denies any pain or additional needs at this time. Currently resting in bed with eyes open. Respirations even and unlabored. Bed is low, locked, and call light is in reach.
[2024-07-26 04:00] VITALS: BP 118/71; PULSE 72; PULSE 76; RESP 16; TEMP 35.9; O2SAT 99; BMI 32.1
[2024-07-26 05:24] LABS: POC Glucose,Bedside 165 (70-110)
[2024-07-26 07:04] LABS: Basophils % 0.3 % (0.1-2.0); Eosinophils # 0.1 Kmm3 (0.0-0.4); Eosinophils % 1.2 % (0.1-12.0); Hematocrit 33.5 % (42.0-52.0); Hemoglobin 11.2 g/dL (14.1-18.0); Lymphocytes # 0.6 K/mm3 (0.7-4.5); Lymphocytes % 9.7 % (10-50); Mean Corpuscular HGB Conc 33.4 g/dL (31.8-35.4); Mean Corpuscular Hemoglobin 26.7 pg (27.0-31.2); Mean Platelet Volume 10.9 fl (7.4-10.4); Monocytes # 0.4 K/mm3 (0.1-1.0); Monocytes % 7.3 % (1.7-9.3); Neutrophils # 4.9 K/mm3 (1.8-7.8); Neutrophils % 81.3 % (37.0-80.0); Nucleated Red Blood Cells # 0 10^3/uL; Nucleated Red Blood Cells % 0 %; Platelet Count 150 K/mm3 (142-424); Red Blood Count 4.19 M/mm3 (4.60-6.20); Red Cell Distribution Width 14.7 % (11.5-17.5); Red Cell Distribution Width-SD 42.7 fL; White Blood Count 6.1 K/mm3 (4.8-10.8)
[2024-07-26 07:36] LABS: Alanine Aminotransferase 26 U/L (12-78); Albumin Level 3.1 g/dl (3.5-5.0); Albumin/Globulin Ratio 1.1 (1.1-1.8); Alkaline Phosphatase 67 U/L (38-126); Anion Gap 3.4 mEq/L (5-15); Aspartate Amino Transferase 45 U/L (17-59); Blood Urea Nitrogen 12 mg/dl (9-20); Calcium 8.3 mg/dl (8.4-10.2); Carbon Dioxide 23 mmol/L (22.0-30.0); Chloride 108 mmol/L (98-107); Creatinine Clearance Estimated 93 mL/min (50-200); Estimated Glomerular Filt Rate 83 ml/min (>60); GFR (African American) 100 ML/MIN (>60); Globulin 2.8 g/dL (1.3-3.2); Glucose 169 mg/dl (74-100); Potassium 3.4 mmoL/L (3.5-5.1); Sodium 131 mmol/L (136-145); Total Protein,Serum 5.9 g/dl (6.3-8.2)
[2024-07-26 07:51] LABS: Magnesium 1.9 mg/dl (1.6-2.3)
[2024-07-26 07:53] LABS: Erythrocyte Sedimentation Rate > 140 mm/hr (0-20)
[2024-07-26 07:56] LABS: C-Reactive Protein 78.2 mg/L (0-4)
[2024-07-26 08:00] VITALS: BP 101/54; PULSE 83; RESP 16; TEMP 37.1; O2SAT 94
[2024-07-26 08:09] LABS: Procalcitonin 1.63 ng/mL (0.0-2.0)
--- NOTE | 2024-07-26 08:18 | EXP.ACUTE.PN ---
Subjective *Date: 07/26/24 *Time: 22:04 Interval history: States he is continuing to feel better. Denies fevers overnight. Still a swollen leg. Denies chest pain. Stable on room air. Tolerating p.o. intake. Medical Exam Vital signs and Labs for Last 24 Hours: Vital Signs Temp Pulse Pulse Resp BP Pulse Ox O2 Del Method 07/26/24 06:27 Room Air 07/26/24 05:00 Room Air 07/26/24 04:00 96.7 F L 76 16 118/71 99 Room Air 07/26/24 04:00 72 07/26/24 03:00 Room Air 07/26/24 01:00 Room Air 07/26/24 00:00 98.5 F 85 14 121/51 L 99 Room Air 07/26/24 00:00 81 07/25/24 23:00 Room Air 07/25/24 21:00 Room Air 07/25/24 20:00 77 07/25/24 20:00 Room Air 07/25/24 20:00 86 14 126/67 94 L Room Air 07/25/24 18:31 Room Air 07/25/24 17:00 Room Air 07/25/24 16:00 80 07/25/24 16:00 84 18 117/67 99 Room Air 07/25/24 15:58 98.1 F 69 20 117/67 99 Room Air 07/25/24 15:58 79 07/25/24 15:00 Room Air 07/25/24 13:00 Room Air 07/25/24 12:00 98.6 F 79 18 140/77 96 Room Air 07/25/24 12:00 70 07/25/24 11:00 Room Air 07/25/24 09:00 Room Air Intake and Output 07/25/24 07/26/24 07/26/24 23:59 07:59 15:59 Intake Total 580 / 1490 Output Total 0 / 900 Balance 580 / 590 Intake: Intake, Oral Amount 480 / 1190 Intake, Total IV Amount 100 / 200 Ceftriaxone Sodium 2 gm In 0.9 100 / 200 % Sodium Chloride 100 ml @ 200 mls/hr IV Q24H [facility] Rx#:[id number] Output: Output, Urine Amount 0 / 900 Other: Number of Unmeasured Voids 0 Number of Bowel Movements 1 Weight 98.203 kg Patient Weight 07/26/24 23:59 Weight 98.203 kg Laboratory Results - last 24 hr 07/25/24 11:09: POC Glucose 196 H 07/25/24 16:12: POC Glucose 139 H 07/25/24 19:52: POC Glucose 158 H 07/26/24 05:13: POC Glucose 165 H 07/26/24 06:35: WBC 6.1 D, RBC 4.19 L, Hgb 11.2 L, Hct 33.5 L, MCV 80.0, MCH 26.7 L, MCHC 33.4, RDW 14.7, Plt Count 150, MPV 10.9 H, Neut % (Auto) 81.3 H, Lymph % (Auto) 9.7 L, [place] % (Auto) 7.3, Eos % (Auto) 1.2, Baso % (Auto) 0.3, Neut # (Auto) 4.9, Lymph # (Auto) 0.6 L, [place] # (Auto) 0.4, Eos # (Auto) 0.1, Baso # (Auto) 0.0, ESR > 140 H, Sodium 131 L, Potassium 3.4 L, Chloride 108 H, Carbon Dioxide 23, Anion Gap 3.4 L, BUN 12, Creatinine 0.90, Estimated Creat Clear 93, Estimated GFR 83, Est GFR ( Amer) 100, Glucose 169 H, Calcium 8.3 L, Magnesium 1.9 D, Total Bilirubin 1.0, AST 45 D, ALT 26, Alkaline Phosphatase 67, C-Reactive Protein 78.2 H D, Total Protein 5.9 L, Albumin 3.1 L, Globulin 2.8, Albumin/Globulin Ratio 1.1, Procalcitonin 1.63 I & O for Labs for Last 24 Hours: Intake & Output 07/23/24 07/24/24 07/25/24 07/26/24 23:59 23:59 23:59 23:59 Intake Total 3450 / 3450 3472 / 3672 1490 / 1490 Output Total 400 / 400 1700 / 2000 900 / 900 Balance 3050 / 3050 1772 / 1672 590 / 590 Weight 94.6 kg 94.6 kg 92.669 kg 98.203 kg Microbiology Reports for the Last 24 Hours: Microbiology 07/23/24 19:46 Blood Blood Culture - Preliminary NO GROWTH AFTER 48 HOURS 07/23/24 19:39 Blood Blood Culture - Preliminary NO GROWTH AFTER 48 HOURS Constitutional: Present no acute distress, obese, chronically ill appearing and cooperative Head: Present atraumatic and normocephalic ENT: Present normal exam Respiratory: Present normal respiratory effort; Absent rhonchi, wheezes or crackles Cardiac: Present Reg Rate and Rhythm GI: Present soft; Absent distention or tenderness Extremities: Present normal inspection, full ROM and edema (4+ edema to thigh on right leg, red and tender. Left leg with 3+ edema) Skin: Present intact and erythema (To knee on right leg, none on left leg) Neuro: Present Grossly Intact, alert, awake, oriented x 3 and moves all extremities Assessment and Plan *Assessment and plan (1) Cellulitis: Status: Acute Qualifiers: Laterality: right Site of cellulitis: extremity Site of cellulitis of extremity: lower extremity Qualified Code(s): L03.115 - Cellulitis of right lower limb Category: Medical Code(s): L03.90 - Cellulitis, unspecified (2) Sepsis: Status: Acute Qualifiers: Acute renal failure type: unspecified Sepsis acute organ dysfunction status: with acute organ dysfunction Sepsis type: sepsis due to unspecified organism Severe sepsis acute organ dysfunction type: acute renal failure Severe sepsis shock status: with septic shock Qualified Code(s): A41.9 - Sepsis, unspecified organism; R65.21 - Severe sepsis with septic shock; N17.9 - Acute kidney failure, unspecified Category: Medical Code(s): A41.9 - Sepsis, unspecified organism (3) AMS (altered mental status): Status: Acute Qualifiers: Altered mental status type: unspecified Qualified Code(s): R41.82 - Altered mental status, unspecified Category: Medical Code(s): R41.82 - Altered mental status, unspecified (4) T2DM (type 2 diabetes mellitus): Status: Chronic Qualifiers: Diabetes mellitus skilled nursing insulin use: without termite inspector use Diabetes mellitus complication status: with circulatory complication Diabetes mellitus complication detail: with other circulatory complications Qualified Code(s): E11.59 - Type 2 diabetes mellitus with other circulatory complications Category: Medical Code(s): E11.9 - Type 2 diabetes mellitus without complications (5) Peripheral artery disease: Status: Chronic Category: Medical Code(s): I73.9 - Peripheral vascular disease, unspecified (6) Lymphedema of extremity: Status: Acute Category: Medical Code(s): I89.0 - Lymphedema, not elsewhere classified (7) HTN (hypertension): Status: Acute Qualifiers: Hypertension type: essential hypertension Qualified Code(s): I10 - Essential (primary) hypertension Category: Medical Code(s): I10 - Essential (primary) hypertension (8) Atrial flutter: Problem Comment: On Xarelto Status: Resolved Qualifiers: Atrial flutter type: typical Qualified Code(s): I48.3 - Typical atrial flutter Category: Medical Code(s): I48.92 - Unspecified atrial flutter (9) CAD (coronary artery disease): Problem Comment: Recent stents Status: Chronic Qualifiers: Coronary Disease-Associated Artery/Lesion type: [place] artery [place] vs. transplanted heart: [place] heart Associated angina: with stable angina Qualified Code(s): I25.118 - Atherosclerotic heart disease of [place] coronary artery with other forms of angina pectoris Category: Medical Code(s): I25.10 - Atherosclerotic heart disease of [place] coronary artery without angina pectoris (10) Paroxysmal atrial fibrillation: Status: Acute Category: Medical Code(s): I48.0 - Paroxysmal atrial fibrillation (11) Elevated troponin: Status: Acute Category: Medical Code(s): R79.89 - Other specified abnormal findings of blood chemistry Plan Admitted with sepsis secondary to right lower extremity cellulitis. Has received antibiotics and multiple fluid boluses with improvement of hypotension. NSTEMI type II given significant tachycardia 85% max heart rate with ST depressions anterolaterally, all secondary to sepsis and demand ischemia. Continues to require inpatient management, weaned to [facility]. Cardiology assisting with care. Labs relatively normal today. Will continue diuresis and IV antibiotics. Dissipate discharge in the next day or 2. Problems addressed as follows: Sepsis Right lower extremity cellulitis - Procalcitonin improved to 1.6 today, CRP 78. White count normalized to 6.1. -Continue broad-spectrum antibiotics with vancomycin IV and ceftriaxone 1 g daily - Continue diuresis and IV 2 mg twice daily -Continue Hydrocodone every 4 hours as needed for pain, monitor for toxicity - Repeat CBC, CMP, magnesium ordered for the morning. NSTEMI, type II CAD Paroxysmal A-fib -Discussed case with cardiology today, will hold on left heart cath at this time, consider as an outpatient when he improves from infectious state. -Echo obtained shows EF of 50%. -Continue Plavix 75 mg daily, Lipitor 40 mg daily, metoprolol succinate 25 mg daily; hold Xarelto 15 mg daily and bridge with Lovenox 1 mg/kg twice daily -Monitor on telemetry overnight - Continue metoprolol succinate to 50 mg twice daily GUILLERMO: Improving - BUN 12, creatinine 0.9. Magnesium 1.9, potassium 3.4.. Full code Cardiac diet Lovenox 1 mg/kg twice daily
[2024-07-26] MEDS: METOPROLOL SUCCINATE XL 50MG TABLET 50 MG PO ×2 (08:46→20:12)
[2024-07-26] MEDS: CLOPIDOGREL 75MG TAB 75 MG PO (08:46)
[2024-07-26 10:22] VITALS: BMI 32.1
--- NOTE | 2024-07-26 11:03 | P.PN_ITS ---
Subjective Subjective Date: 07/26/24 Time: 08:00 Principal diagnosis: Cellulitis LEft leg and nstemi Interval history: Doing well. Denies chest pain, reports shortness of breath. Morning labs reviewed. Exam Data for Last 24 hours Vital signs and Labs for Last 24 Hours: Temp Pulse Resp BP Pulse Ox O2 Del Method 98.7 F 83 16 101/54 L 94 L Room Air 07/26/24 08:00 07/26/24 08:00 07/26/24 08:00 07/26/24 08:00 07/26/24 08:00 07/26/24 08:00 Laboratory Results - last 24 hr 07/25/24 11:09: POC Glucose 196 H 07/25/24 16:12: POC Glucose 139 H 07/25/24 19:52: POC Glucose 158 H 07/26/24 05:13: POC Glucose 165 H 07/26/24 06:35: WBC 6.1 D, RBC 4.19 L, Hgb 11.2 L, Hct 33.5 L, MCV 80.0, MCH 26.7 L, MCHC 33.4, RDW 14.7, Plt Count 150, MPV 10.9 H, Neut % (Auto) 81.3 H, Lymph % (Auto) 9.7 L, [place] % (Auto) 7.3, Eos % (Auto) 1.2, Baso % (Auto) 0.3, Neut # (Auto) 4.9, Lymph # (Auto) 0.6 L, [place] # (Auto) 0.4, Eos # (Auto) 0.1, Baso # (Auto) 0.0, ESR > 140 H, Sodium 131 L, Potassium 3.4 L, Chloride 108 H, Carbon Dioxide 23, Anion Gap 3.4 L, BUN 12, Creatinine 0.90, Estimated Creat Clear 93, Estimated GFR 83, Est GFR ( Amer) 100, Glucose 169 H, Calcium 8.3 L, Magnesium 1.9 D, Total Bilirubin 1.0, AST 45 D, ALT 26, Alkaline Phosphatase 67, C-Reactive Protein 78.2 H D, Total Protein 5.9 L, Albumin 3.1 L, Globulin 2.8, Albumin/Globulin Ratio 1.1, Procalcitonin 1.63 I & O for Last 24 hours: Intake & Output 04/07/24/24 07/25/24 07/26/24 23:59 23:59 23:59 23:59 Intake Total 3450 / 3450 3472 / 3672 1490 / 1490 Output Total 400 / 400 1700 / 2000 900 / 900 Balance 3050 / 3050 1772 / 1672 590 / 590 Weight 208 lb 8.917 oz 208 lb 8.917 oz 204 lb 4.8 oz 216 lb 7.903 oz Microbiology Reports for the Last 24 Hours: Microbiology 07/23/24 21:48 Anus CRE Surveillance Culture - Final Negative 07/23/24 19:46 Blood Blood Culture - Preliminary NO GROWTH AFTER 48 HOURS 07/23/24 19:39 Blood Blood Culture - Preliminary NO GROWTH AFTER 48 HOURS Constitutional Constitutional: no acute distress *Routine Respiratory Exam Respiratory: Present CTA bilaterally and symmetric chest movement *Routine Cardiovascular Exam Cardiovascular: Present RRR, Normal S1 and Normal S2 *Routine Abdominal Exam Abdominal: Present soft and normoactive bowel sounds; Absent tenderness *Routine Extremities Exam Extremities: Present edema, full ROM and normal capillary refill Comments: Bilateral lower extremity noted. Erythema present to right lower extremity *Routine Skin Exam Skin: Present intact, dry and warm Detailed Neck Exam: Thyroids Thyroid: Absent bruit Progress Note: A&P Assessment and plan (1) Cellulitis: Status: Acute (2) Sepsis: Status: Acute (3) AMS (altered mental status): Status: Acute (4) T2DM (type 2 diabetes mellitus): Status: Chronic (5) Peripheral artery disease: Status: Chronic (6) Lymphedema of extremity: Status: Acute (7) HTN (hypertension): Status: Acute (8) Atrial flutter: Problem details: On Xarelto Status: Resolved (9) CAD (coronary artery disease): Problem details: Recent stents Status: Chronic (10) Paroxysmal atrial fibrillation: Status: Acute (11) Elevated troponin: Status: Acute Assessment and Plan Assessment and Plan for All Diagnoses:: Acute right lower extremity cellulitis Chronic bilateral lymphedema Acute sepsis CT right foot shows extensive edema consistent with cellulitis with possible early neuropathy changes. No evidence of osteomyelitis present Venous doppler negative for dvt Defer management to primary service History of coronary artery disease Elevated troponin in the setting of acute illness SOA anginal equivalent Troponin 1.76 trending up to 5.88 in the setting of acute illness with sepsis and tachycardia present EKG without acute ischemic changes noted History of multiple RIYA, last stenting to circumflex and angioplasty to LAD 05/2024 Limited echo today shows an estimated EF of 50% Continue Plavix, statin and beta-dhruv Continue Lovenox 1 mg/kg twice daily Per Dr. Biggs at this time we will hold on repeating left heart catheterization due to patient's acute illness. We will plan for a further ischemic evaluation on outpatient basis. History of paroxysmal atrial fibrillation Today is normal sinus rhythm Metoprolol increased due to tachycardia. Xarelto on hold for left heart catheterization tomorrow. Receiving Lovenox CV summary 07/25/2024: Patient is CV stable, neurology will sign off. Please continue below listed medications and have patient follow-up in cardiology clinic next week for reevaluation. We will consider further ischemic evaluation on an outpatient basis. Cardiac meds: Plavix 75 mg p.o. daily Atorvastatin 40 mg p.o. daily Metoprolol succinate 50 mg p.o. daily Xarelto 15 mg p.o. daily-hold for left heart cath Start Lovenox 1 mg/kg twice daily
[2024-07-26 11:17] LABS: POC Glucose,Bedside 160 (70-110)
[2024-07-26 12:00] VITALS: BP 114/64; PULSE 67; PULSE 70; RESP 16; TEMP 36.6; O2SAT 97
--- NOTE | 2024-07-26 12:14 | DIET.NUTRFU ---
Patient is requesting regular diet, has been brining food up from [employer]. He adds salt to meals at home, is familiar with cardiac recommendations and continues to request regular. Will update order
[2024-07-26] MEDS: BUMETANIDE 1MG/4ML VIAL 2 MG IV ×2 (14:27→20:11)
[2024-07-26] MEDS: POTASSIUM CHLORIDE 20MEQ TAB 40 MEQ PO ×2 (14:27→16:26)
[2024-07-26 16:00] VITALS: BP 110/78; PULSE 80; RESP 17; O2SAT 100
[2024-07-26] MEDS: VANCOMYCIN/WATER FOR INJ (PEG) 1.5 GM/300 ML PIGGYBACK IV (16:25)
[2024-07-26 16:57] LABS: POC Glucose,Bedside 242 (70-110)
[2024-07-26 17:54] LABS: Vancomycin,Trough 8.1 ug/mL (5.0-10.0)
--- NOTE | 2024-07-26 18:04 | PC.NURSE ---
patient is a/ox4 and remains on RA tolerating well. 4+ pitting edema to right leg and 2+ pitting edema to left leg, treated per MAY. patient has ambulated independently to the bathroom multiple times this shift to void. no c/o pain or nausea. patient has been up to the chair several times this shift and has had his RLE elevated. call light within reach, no further requests at this time.
[2024-07-26 20:00] VITALS: BP 100/69; PULSE 70; RESP 22; TEMP 37; O2SAT 98
[2024-07-26] MEDS: ATORVASTATIN 40MG TABLET 40 MG PO (20:12)
[2024-07-26] MEDS: PANTOPRAZOLE 40MG TABLET 40 MG PO (20:12)
[2024-07-26] MEDS: TAMSULOSIN 0.4MG CAPSULE 0.4 MG PO (20:12)
[2024-07-26 20:37] LABS: POC Glucose,Bedside 190 (70-110)
[2024-07-26 21:38] LABS: Vancomycin,Peak 24.8 ug/ml (11-39)
[2024-07-26] MEDS: CEFTRIAXONE SODIUM 2 GM in 0.9 % SODIUM CHLORIDE 100 ML IV (22:07)
[2024-07-27] VITALS: BP 113/60; PULSE 90; PULSE 91; RESP 18; TEMP 36.8; O2SAT 99
[2024-07-27 04:00] VITALS: BP 116/67; PULSE 78; PULSE 90; RESP 18; TEMP 36.4; O2SAT 97; BMI 31.1
[2024-07-27] MEDS: ENOXAPARIN 100MG/ML SYRINGE 95 MG SUBCUT (04:07)
[2024-07-27 06:42] LABS: POC Glucose,Bedside 224 (70-110)
[2024-07-27 07:55] LABS: Basophils % 0.2 % (0.1-2.0); Eosinophils # 0.1 Kmm3 (0.0-0.4); Eosinophils % 1.7 % (0.1-12.0); Hemoglobin 12.5 g/dL (14.1-18.0); Lymphocytes # 0.6 K/mm3 (0.7-4.5); Lymphocytes % 11.9 % (10-50); Mean Corpuscular HGB Conc 33.8 g/dL (31.8-35.4); Mean Corpuscular Hemoglobin 26.9 pg (27.0-31.2); Mean Corpuscular Volume 79.7 fl (80-94); Mean Platelet Volume 10.6 fl (7.4-10.4); Monocytes # 0.4 K/mm3 (0.1-1.0); Monocytes % 9.1 % (1.7-9.3); Neutrophils # 3.6 K/mm3 (1.8-7.8); Neutrophils % 76.5 % (37.0-80.0); Nucleated Red Blood Cells # 0 10^3/uL; Nucleated Red Blood Cells % 0 %; Platelet Count 192 K/mm3 (142-424); Red Blood Count 4.64 M/mm3 (4.60-6.20); Red Cell Distribution Width 14.6 % (11.5-17.5); Red Cell Distribution Width-SD 42.5 fL; White Blood Count 4.7 K/mm3 (4.8-10.8)
[2024-07-27 08:00] VITALS: BP 93/54; PULSE 90; RESP 16; TEMP 36.6; O2SAT 98
[2024-07-27 08:31] LABS: Alanine Aminotransferase 35 U/L (12-78); Albumin Level 3.4 g/dl (3.5-5.0); Alkaline Phosphatase 77 U/L (38-126); Anion Gap 9.5 mEq/L (5-15); Aspartate Amino Transferase 42 U/L (17-59); Bilirubin,Total 0.9 mg/dl (0.2-1.3); Blood Urea Nitrogen 14 mg/dl (9-20); Calcium 8.5 mg/dl (8.4-10.2); Carbon Dioxide 23 mmol/L (22.0-30.0); Chloride 104 mmol/L (98-107); Creatinine Clearance Estimated 82 mL/min (50-200); Estimated Glomerular Filt Rate 66 ml/min (>60); GFR (African American) 80 ML/MIN (>60); Globulin 3.4 g/dL (1.3-3.2); Glucose 227 mg/dl (74-100); Magnesium 1.3 mg/dl (1.6-2.3); Potassium 3.5 mmoL/L (3.5-5.1); Sodium 133 mmol/L (136-145); Total Protein,Serum 6.8 g/dl (6.3-8.2)
[2024-07-27 08:36] LABS: C-Reactive Protein 41.9 mg/L (0-4)
[2024-07-27] MEDS: CLOPIDOGREL 75MG TAB 75 MG PO (09:01)
[2024-07-27] MEDS: DOCUSATE SODIUM 100 MG CAPSULE PO (09:01)
[2024-07-27] MEDS: BUMETANIDE 1MG/4ML VIAL 2 MG IV (09:02)
[2024-07-27] MEDS: METOPROLOL SUCCINATE XL 50MG TABLET 50 MG PO (09:02)
--- NOTE | 2024-07-27 09:22 | EXP.PHA.CONS ---
Pharmacy Consult Date: 07/27/24 Time: 09:22 Referring provider: DR. SHARPE Reason for Consult:: VANCOMYCIN TROUGH/PEAK LEVELS AND DOSE CHANGE Allergies Allergy/AdvReac Type Severity Reaction Status Date / Time Penicillins (PENICILLINS) Allergy Unknown I-ITCHING Verified 07/08/24 14:38 Home Medications ?Medication ?Instructions ?Recorded ?Confirmed ?Type furosemide 20 mg tablet 20 mg PO DAILY 03/05/24 07/23/24 History rivaroxaban 15 mg tablet (Xarelto) 15 mg PO QPMWITHMEAL 03/05/24 07/24/24 History tamsulosin 0.4 mg capsule 0.4 mg PO DAILY 03/05/24 07/23/24 History tramadol 50 mg tablet 50 mg PO TID 03/15/24 07/23/24 History metformin 1,000 mg tablet 1,000 mg PO BID #60 tabs 05/29/24 07/23/24 Rx atorvastatin 40 mg tablet 40 mg PO HS 30 days #90 tabs 06/25/24 07/23/24 Rx metoprolol succinate 25 mg 25 mg PO DAILY 30 days #90 tabs 06/25/24 07/23/24 Rx tablet,extended release 24 hr tirzepatide 5 mg/0.5 mL 5 mg (0.5 mL) SQ WEEKLY 90 days 06/28/24 07/23/24 Rx subcutaneous pen injector #6.5 mL (Mckayla) omeprazole 40 mg capsule,delayed 40 mg PO DAILY GERD 90 days #90 07/16/24 07/23/24 Rx release caps clopidogrel 75 mg tablet 75 mg PO DAILY 07/24/24 07/24/24 History diclofenac sodium 1 % topical gel 4 g topical QIDP PRN CHRONIC PAIN 07/24/24 07/24/24 History lidocaine 5 % topical ointment 1 applic topical BIDP PRN Mild 07/24/24 07/24/24 History Pain (Scale Score 1-4) New Prescriptions to Start Prescriptions: Height: 1.75 m Weight: 95.209 kg Laboratory Results:: Laboratory Results - last 24 hr 07/26/24 11:08: POC Glucose 160 H 07/26/24 16:20: Vancomycin Trough 8.1 07/26/24 16:38: POC Glucose 242 H 07/26/24 20:27: POC Glucose 190 H 07/26/24 21:00: Vancomycin Peak 24.8 07/27/24 06:34: POC Glucose 224 H 07/27/24 06:50: WBC 4.7 L, RBC 4.64, Hgb 12.5 L, Hct 37.0 L, MCV 79.7 L, MCH 26.9 L, MCHC 33.8, RDW 14.6, Plt Count 192 D, MPV 10.6 H, Neut % (Auto) 76.5, Lymph % (Auto) 11.9, [place] % (Auto) 9.1, Eos % (Auto) 1.7, Baso % (Auto) 0.2, Neut # (Auto) 3.6, Lymph # (Auto) 0.6 L, [place] # (Auto) 0.4, Eos # (Auto) 0.1, Baso # (Auto) 0.0, Sodium 133 L, Potassium 3.5, Chloride 104, Carbon Dioxide 23, Anion Gap 9.5, BUN 14, Creatinine 1.10 D, Estimated Creat Clear 82, Estimated GFR 66, Est GFR ( Amer) 80, Glucose 227 H, Calcium 8.5, Magnesium 1.3 L D, Total Bilirubin 0.9, AST 42, ALT 35 D, Alkaline Phosphatase 77, C-Reactive Protein 41.9 H D, Total Protein 6.8, Albumin 3.4 L, Globulin 3.4 H, Albumin/Globulin Ratio 1.0 L Medical History: Medical History (Updated 07/24/24 @ 14:33 by Kiesha Laurent, [employer]) Vocal cord edema Ringing in right ear Chronic hoarseness Globus sensation Vertigo Diverticulitis IBS (irritable bowel syndrome) Latent tuberculosis Rheumatoid arthritis Viral gastroenteritis Laceration of face Atypical angina NSTEMI (non-ST elevated myocardial infarction) Atrial flutter Asbestos exposure Tachycardia Abnormal ECG Preoperative testing Episodic confusion Allergic rhinitis Dyspnea on exertion Latent tuberculosis by blood test Restrictive lung disease Left sided abdominal pain Left shoulder strain Left groin pain Claustrophobia Chronic cough Cognitive complaints Edema of both lower extremities Decreased pedal pulses Non-healing ulcer of foot Decreased ROM of right shoulder Right shoulder pain Right shoulder injury Pes planus of both feet Skin lesion Impotence Low back pain Left against medical advice Memory loss Chronic SI joint pain Radiculopathy Neuropathic pain Leg pain, posterior Kidney stone Ingrown toenail of right foot Pre-ulcerative calluses Splinter of toe of left foot Pain of left great toe Cellulitis of great toe of right foot Acute bacterial bronchitis Incurved toenail Diabetes mellitus Onychomycosis Pain in both feet Callus of foot Diabetic foot ulcer Acute febrile illness SIRS (systemic inflammatory response syndrome) Left against medical advice Lower extremity edema Epistaxis Encounter for pre-operative cardiovascular clearance Sepsis Urinary incontinence Weakness Cellulitis, leg Obesity (BMI 30-39.9) Acute delirium Cellulitis Severe sepsis SIRS (systemic inflammatory response syndrome) Physical deconditioning Bacterial pneumonia Hypokalemia Bronchitis due to COVID-19 virus Pneumonia due to COVID-19 virus COVID-19 virus infection Exposure to COVID-19 virus Viral syndrome Acute bronchitis Hematuria Kidney stone on right side Multiple renal cysts Cough Diastolic dysfunction Mental status change resolved HTN (hypertension) Dyspnea SOB (shortness of breath) HHD (hypertensive heart disease) Pre-op evaluation Microalbuminuria Enlarged prostate History of IBS Diabetes Acquired lymphedema Assessment and Plan Assessment and plan all Dx Assessment and Plan for all problems:: BASED ON PATIENT FACTORS AND VANCOMYCIN TROUGH/PEAK LEVELS OF 8.1/24.8 RESPECTIVELY, RECOMMEND SLIGHTLY INCREASING VANCOMYCIN DOSE TO 1,750MG EVERY 24 HOURS. PHARMACY WILL CONTINUE TO MONITOR AND ADJUST DOSE APPROPRIATE. -MASSIEL FRANKEL, ROYALD
[2024-07-27 12:00] VITALS: BP 105/62; PULSE 79; RESP 16; TEMP 36.4; O2SAT 99
--- NOTE | 2024-07-27 12:42 | EXP.PHA.PN ---
Subjective *Date: 07/27/24 *Time: 12:42 Medical Exam Vital signs and Labs for Last 24 Hours: Vital Signs Temp Pulse Pulse Resp BP Pulse Ox O2 Del Method 07/27/24 09:00 Room Air 07/27/24 08:00 Room Air 07/27/24 08:00 97.8 F 90 16 93/54 L 98 Room Air 07/27/24 06:47 Room Air 07/27/24 05:00 Room Air 07/27/24 04:00 97.5 F L 78 18 116/67 97 Room Air 07/27/24 04:00 90 07/27/24 03:00 Room Air 07/27/24 00:46 Room Air 07/27/24 00:00 90 07/27/24 00:00 98.3 F 91 H 18 113/60 99 Room Air 07/26/24 23:00 Room Air 07/26/24 21:00 Room Air 07/26/24 20:00 70 07/26/24 20:00 Room Air 07/26/24 20:00 98.6 F 70 22 100/69 L 98 Room Air 07/26/24 18:36 Room Air 07/26/24 17:00 Room Air 07/26/24 16:00 80 07/26/24 16:00 17 110/78 100 Room Air 07/26/24 15:00 Room Air 07/26/24 13:00 Room Air Intake and Output 07/26/24 07/27/24 07/27/24 23:59 07:59 15:59 Intake Total 280 / 460 240 / 240 Output Total 700 / 700 0 / 0 0 / 0 Balance -420 / -240 0 / 240 240 / 240 Intake: Intake, Oral Amount 280 / 460 240 / 240 Output: Output, Urine Amount 700 / 700 0 / 0 0 / 0 Other: Number of Unmeasured Voids 1 1 1 Weight 95.209 kg 95.209 kg Patient Weight 07/27/24 23:59 Weight 95.209 kg Laboratory Results - last 24 hr 07/26/24 16:20: Vancomycin Trough 8.1 07/26/24 16:38: POC Glucose 242 H 07/26/24 20:27: POC Glucose 190 H 07/26/24 21:00: Vancomycin Peak 24.8 07/27/24 06:34: POC Glucose 224 H 07/27/24 06:50: WBC 4.7 L, RBC 4.64, Hgb 12.5 L, Hct 37.0 L, MCV 79.7 L, MCH 26.9 L, MCHC 33.8, RDW 14.6, Plt Count 192 D, MPV 10.6 H, Neut % (Auto) 76.5, Lymph % (Auto) 11.9, [place] % (Auto) 9.1, Eos % (Auto) 1.7, Baso % (Auto) 0.2, Neut # (Auto) 3.6, Lymph # (Auto) 0.6 L, [place] # (Auto) 0.4, Eos # (Auto) 0.1, Baso # (Auto) 0.0, Sodium 133 L, Potassium 3.5, Chloride 104, Carbon Dioxide 23, Anion Gap 9.5, BUN 14, Creatinine 1.10 D, Estimated Creat Clear 82, Estimated GFR 66, Est GFR ( Amer) 80, Glucose 227 H, Calcium 8.5, Magnesium 1.3 L D, Total Bilirubin 0.9, AST 42, ALT 35 D, Alkaline Phosphatase 77, C-Reactive Protein 41.9 H D, Total Protein 6.8, Albumin 3.4 L, Globulin 3.4 H, Albumin/Globulin Ratio 1.0 L I & O for Labs for Last 24 Hours: Intake & Output 07/24/24 07/25/24 07/26/24 07/27/24 23:59 23:59 23:59 23:59 Intake Total 3472 / 3672 1490 / 1490 460 / 460 240 / 240 Output Total 1700 / 2000 900 / 900 700 / 700 0 / 0 Balance 1772 / 1672 590 / 590 -240 / -240 240 / 240 Weight 94.6 kg 92.669 kg 98.2 kg 95.209 kg Microbiology Reports for the Last 24 Hours: Microbiology 07/23/24 21:48 Anus CRE Surveillance Culture - Final Negative The patient's infection will respond to the chosen ABx?: Yes Is the patient receiving the right drug, dose, and route?: Yes Could a more targeted ABx be ordered?: No
--- NOTE | 2024-07-27 13:02 | P.DS_ITS ---
General Admission date:: 07/23/24 Discharge date: 07/27/24 HPI HPI HPI: 74-year-old male presenting to ER with acute encephalopathy. History is largely provided by record review, ER consultation. History is largely limited due to patient's current condition. Reportedly his found him confused, speaking incoherently, laying in his own feces and emesis. Last known normal was yesterday. Having fevers and chills. She brought him to the ER where it was noted that he had significant erythema and swelling of his right lower extremity. On arrival, tachycardic hypotensive. Bedside echo hyperdynamic LVEF with collapsible IVC. EKG sinus tachycardia with anterolateral ST depressions. CT head no acute findings. Patient received 3 L IV fluids with improvement of blood pressure. Started on vancomycin and ceftriaxone. Hospitalist contacted for admission. Patient largely complaining of fever and chills is not endorsing any lower extremity pain at this time. past medical history of atrial flutter on Xarelto (currently sinus ) , latent tuberculosis, rheumatoid arthritis, CAD (s/p pci, Left main, LAD, circumflex, ramus) most recent 05/2024, peripheral arterial disease, diabetes, lymphedema. allergies penicillin, rxn rash non smoker no etoh or drugs Hospital Course Hospital Course Hospital Course: Admitted with sepsis secondary to right lower extremity cellulitis. Has received antibiotics and multiple fluid boluses with improvement of hypotension. NSTEMI type II given significant tachycardia 85% max heart rate with ST depressions anterolaterally, all secondary to sepsis and demand ischemia. Treated for cellulitis. Cardiology consulted and assisted with care. Decision made to proceed with evaluation for ischemic workup as an outpatient. Treat underlying infection at this time. Clinically improving from sepsis and cellulitis. Will transition to oral antibiotics and discharged home in stable condition. Close follow-up with cardiology and PCP. Problems addressed as follows: Sepsis Right lower extremity cellulitis - Procalcitonin severely elevated on presentation, showed gradual improvement during admission confirming response to antibiotics. White count normalized. Tolerating vancomycin and ceftriaxone. Erythema improving in right leg. Sepsis resolved after approximately 36 hours. Cultures remained negative. Responding well to diuresis to for volume overload/lymphedema component. Will transition to Keflex to complete 7-day course of antibiotics for cellulitis of right lower extremity. Continue 500 mg 3 times a day. Pain overall doing well. CRP 41 on day of discharge. NSTEMI, type II CAD Paroxysmal A-fib -Discussed case with cardiology during admission. Troponin elevated to 5.8. Decision was made to hold on heart cath as patient was asymptomatic and had no ischemic changes on EKG/telemetry. Will proceed with ischemic workup as an outpatient. Findings most consistent with stress-induced/type II NSTEMI. Echo obtained showing EF of 50%. Continue Plavix 75 mg daily, Lipitor 40 mg daily. Metoprolol succinate increased to 50 mg twice daily for rate control, previously well-controlled on 25 mg. Will decrease to metoprolol succinate 50 mg daily at discharge. Will continue increased diuresis with Bumex 1 mg daily GUILLERMO present on admission. Resolved during hospital course. Kidney function stable on day of discharge with BUN 14, creatinine 1.1 Total time spent on discharge 32 minutes in counseling, documentation, chart review, and direct care with patient. Exam Data for Last 24 hours Vital signs and Labs for Last 24 Hours: Temp Pulse Resp BP Pulse Ox O2 Del Method 97.8 F 90 16 93/54 L 98 Room Air 07/27/24 08:00 07/27/24 08:00 07/27/24 08:00 07/27/24 08:00 07/27/24 08:00 07/27/24 09:00 Laboratory Results - last 24 hr 07/26/24 16:20: Vancomycin Trough 8.1 07/26/24 16:38: POC Glucose 242 H 07/26/24 20:27: POC Glucose 190 H 07/26/24 21:00: Vancomycin Peak 24.8 07/27/24 06:34: POC Glucose 224 H 07/27/24 06:50: WBC 4.7 L, RBC 4.64, Hgb 12.5 L, Hct 37.0 L, MCV 79.7 L, MCH 26.9 L, MCHC 33.8, RDW 14.6, Plt Count 192 D, MPV 10.6 H, Neut % (Auto) 76.5, Lymph % (Auto) 11.9, [place] % (Auto) 9.1, Eos % (Auto) 1.7, Baso % (Auto) 0.2, Neut # (Auto) 3.6, Lymph # (Auto) 0.6 L, [place] # (Auto) 0.4, Eos # (Auto) 0.1, Baso # (Auto) 0.0, Sodium 133 L, Potassium 3.5, Chloride 104, Carbon Dioxide 23, Anion Gap 9.5, BUN 14, Creatinine 1.10 D, Estimated Creat Clear 82, Estimated GFR 66, Est GFR ( Amer) 80, Glucose 227 H, Calcium 8.5, Magnesium 1.3 L D , Total Bilirubin 0.9, AST 42, ALT 35 D, Alkaline Phosphatase 77, C-Reactive Protein 41.9 H D, Total Protein 6.8, Albumin 3.4 L, Globulin 3.4 H, Albumin/Globulin Ratio 1.0 L I & O for Last 24 hours: Intake & Output 07/24/24 07/25/24 07/26/24 07/27/24 23:59 23:59 23:59 23:59 Intake Total 3472 / 3672 1490 / 1490 460 / 460 240 / 240 Output Total 1700 / 2000 900 / 900 700 / 700 0 / 0 Balance 1772 / 1672 590 / 590 -240 / -240 240 / 240 Weight 94.6 kg 92.669 kg 98.2 kg 95.209 kg Microbiology Reports for the Last 24 Hours: Microbiology 07/23/24 21:48 Anus CRE Surveillance Culture - Final Negative Constitutional Constitutional: no acute distress, obese, chronically ill appearing and cooperative *Routine HEENT Exam Head: Present normocephalic Eye: Present EOMI and PERRL ENT: Present mucous membranes moist *Routine Neck Exam Neck: Present supple; Absent lymphadenopathy *Routine Respiratory Exam Respiratory: Present CTA bilaterally; Absent rhonchi, wheezes or crackles *Routine Cardiovascular Exam Cardiovascular: Present RRR *Routine Abdominal Exam Abdominal: Present soft and normoactive bowel sounds; Absent tenderness *Routine Rectal Exam Patient deferred: visual exam *Routine Exam Patient deferred: penile exam *Routine Extremities Exam Extremities: Present edema (Right lower extremity with 4+ edema to knee, left lower extremity with 2+ edema to knee); Absent cyanosis or clubbing *Routine Skin Exam Skin: Present warm; Absent rash Comments: Erythema of right lower leg distal to the knee but not hot. *Routine Neurological Exam Neurological: Present alert, oriented X3 and moving all extremities; Absent altered mental status Results Data Completed and Pending Labs on day of discharge: Labs from last 24 hours 07/27/24 07/27/24 07/26/24 06:50 06:34 21:00 WBC 4.7 L RBC 4.64 Hgb 12.5 L Hct 37.0 L MCV 79.7 L MCH 26.9 L MCHC 33.8 RDW 14.6 Plt Count 192 D MPV 10.6 H Neut % (Auto) 76.5 Lymph % (Auto) 11.9 [place] % (Auto) 9.1 Eos % (Auto) 1.7 Baso % (Auto) 0.2 Neut # (Auto) 3.6 Lymph # (Auto) 0.[address] [place] # (Auto) 0.4 Eos # (Auto) 0.1 Baso # (Auto) 0.0 Sodium 133 L Potassium 3.5 Chloride 104 Carbon Dioxide 23 Anion Gap 9.5 BUN 14 Creatinine 1.10 D Estimated Creat Clear 82 Estimated GFR 66 Est GFR ( Amer) 80 Glucose 227 H POC Glucose 224 H Calcium 8.5 Magnesium 1.3 L D Total Bilirubin 0.9 AST 42 ALT 35 D Alkaline Phosphatase 77 C-Reactive Protein 41.9 H D Total Protein 6.8 Albumin 3.4 L Globulin 3.4 H Albumin/Globulin Ratio 1.0 L Vancomycin Peak 24.8 Vancomycin Trough 07/26/24 07/26/24 07/26/24 20:27 16:38 16:20 WBC RBC Hgb Hct MCV MCH MCHC RDW Plt Count MPV Neut % (Auto) Lymph % (Auto) [place] % (Auto) Eos % (Auto) Baso % (Auto) Neut # (Auto) Lymph # (Auto) [place] # (Auto) Eos # (Auto) Baso # (Auto) Sodium Potassium Chloride Carbon Dioxide Anion Gap BUN Creatinine Estimated Creat Clear Estimated GFR Est GFR ( Amer) Glucose POC Glucose 190 H 242 H Calcium Magnesium Total Bilirubin AST ALT Alkaline Phosphatase C-Reactive Protein Total Protein Albumin Globulin Albumin/Globulin Ratio Vancomycin Peak Vancomycin Trough 8.1 Preliminary micro results at discharge 07/23/24 19:46 Blood Culture - Preliminary Blood NO GROWTH AFTER 48 HOURS 07/23/24 19:39 Blood Culture - Preliminary Blood NO GROWTH AFTER 48 HOURS DS: Diagnosis Discharge Diagnosis (1) Cellulitis: Status: Acute Code(s): L03.90 - Cellulitis, unspecified Qualifiers: Laterality: right Site of cellulitis: extremity Site of cellulitis of extremity: lower extremity Qualified Code(s): L03.115 - Cellulitis of right lower limb (2) Sepsis: Status: Acute Code(s): A41.9 - Sepsis, unspecified organism Qualifiers: Acute renal failure type: unspecified Sepsis acute organ dysfunction status: with acute organ dysfunction Sepsis type: sepsis due to unspecified organism Severe sepsis acute organ dysfunction type: acute renal failure Severe sepsis shock status: with septic shock Qualified Code(s): A41.9 - Sepsis, unspecified organism; R65.21 - Severe sepsis with septic shock; N17.9 - Acute kidney failure, unspecified (3) AMS (altered mental status): Status: Acute Code(s): R41.82 - Altered mental status, unspecified Qualifiers: Altered mental status type: unspecified Qualified Code(s): R41.82 - Altered mental status, unspecified (4) T2DM (type 2 diabetes mellitus): Status: Chronic Code(s): E11.9 - Type 2 diabetes mellitus without complications Qualifiers: Diabetes mellitus complication detail: with other circulatory complications Diabetes mellitus complication status: with circulatory complication Diabetes mellitus tank terminal gauger insulin use: without tank terminal gauger use Qualified Code(s): E11.59 - Type 2 diabetes mellitus with other circulatory complications (5) Peripheral artery disease: Status: Chronic Code(s): I73.9 - Peripheral vascular disease, unspecified (6) Lymphedema of extremity: Status: Acute Code(s): I89.0 - Lymphedema, not elsewhere classified (7) HTN (hypertension): Status: Acute Code(s): I10 - Essential (primary) hypertension Qualifiers: Hypertension type: essential hypertension Qualified Code(s): I10 - Essential (primary) hypertension (8) Atrial flutter: Status: Resolved Code(s): I48.92 - Unspecified atrial flutter Qualifiers: Atrial flutter type: typical Qualified Code(s): I48.3 - Typical atrial flutter Problem details: On Xarelto (9) CAD (coronary artery disease): Status: Chronic Code(s): I25.10 - Atherosclerotic heart disease of [place] coronary artery without angina pectoris Qualifiers: Associated angina: with stable angina Coronary Disease-Associated Artery/Lesion type: [place] artery [place] vs. transplanted heart: [place] heart Qualified Code(s): I25.118 - Atherosclerotic heart disease of [place] coronary artery with other forms of angina pectoris Problem details: Recent stents (10) Paroxysmal atrial fibrillation: Status: Acute Code(s): I48.0 - Paroxysmal atrial fibrillation (11) Elevated troponin: Status: Acute Code(s): R79.89 - Other specified abnormal findings of blood chemistry Meds Home Medications and Allergies Home Medications ?Medication ?Instructions ?Recorded ?Confirmed ?Type rivaroxaban 15 mg tablet (Xarelto) 15 mg PO QPMWITHMEAL 03/05/24 07/24/24 History tamsulosin 0.4 mg capsule 0.4 mg PO DAILY 03/05/24 07/23/24 History tramadol 50 mg tablet 50 mg PO TID 03/15/24 07/23/24 History metformin 1,000 mg tablet 1,000 mg PO BID #60 tabs 05/29/24 07/23/24 Rx atorvastatin 40 mg tablet 40 mg PO HS 30 days #90 tabs 06/25/24 07/23/24 Rx tirzepatide 5 mg/0.5 mL 5 mg (0.5 mL) SQ WEEKLY 90 days 06/28/24 07/23/24 Rx subcutaneous pen injector #6.5 mL (Mckayla) omeprazole 40 mg capsule,delayed 40 mg PO DAILY GERD 90 days #90 07/16/24 07/23/24 Rx release caps clopidogrel 75 mg tablet 75 mg PO DAILY 07/24/24 07/24/24 History diclofenac sodium 1 % topical gel 4 g topical QIDP PRN CHRONIC PAIN 07/24/24 07/24/24 History lidocaine 5 % topical ointment 1 applic topical BIDP PRN Mild 07/24/24 07/24/24 History Pain (Scale Score 1-4) bumetanide 1 mg tablet 1 mg PO DAILY #30 tabs 07/27/24 Rx cephalexin 500 mg capsule 500 mg PO TID #9 caps 07/27/24 Rx furosemide 20 mg tablet 40 mg (2 x 20 mg) PO DAILY #30 tabs 07/27/24 07/23/24 Rx metoprolol succinate 50 mg 50 mg PO DAILY 30 days #30 tabs 07/27/24 Rx tablet,extended release 24 hr (Toprol XL) New Prescriptions to Start Prescriptions: viktoriametanide De Palacio cephalexin De Palacio metoprolol succinate [Toprol XL] De Palacio Allergies Allergy/AdvReac Type Severity Reaction Status Date / Time Penicillins (PENICILLINS) Allergy Unknown I-ITCHING Verified 07/08/24 14:38 Discharge Plan Disposition Patient Disposition: Home, Self-Care Condition: Fair Discharge Order Discharge Orders: Discharge Order (Routine); Ordered 07/27/24 Ordered By: De Palacio Follow up Plan Follow up with: Kiesha Laurent APRN [Nurse Practitioner] - 08/05/24 3:00 pm Tatianna Sandoval APRN [Primary Care Provider] - Enter time for follow up Prescriptions/Medication Reconciliation: New bumetanide 1 mg tablet 1 mg PO DAILY Qty: 30 0RF cephalexin 500 mg capsule 500 mg PO TID Qty: 9 0RF metoprolol succinate [Toprol XL] 50 mg Tablet Extended Release 24 Hr 50 mg PO DAILY 30 Days Qty: 30 0RF Continued tramadol 50 mg tablet 50 mg PO TID metformin 1,000 mg tablet 1,000 mg PO BID Qty: 60 2RF atorvastatin 40 mg tablet 40 mg PO HS 30 Days Qty: 90 2RF Mounjaro 5 mg/0.5 mL pen injector 5 mg SQ WEEKLY 90 Days Qty: 6.5 2RF omeprazole 40 mg capsule,delayed release(DR/EC) 40 mg PO DAILY 90 Days Qty: 90 3RF clopidogrel 75 mg tablet 75 mg PO DAILY lidocaine 5 % ointment 1 applic topical BIDP PRN (Reason: Mild Pain (Scale Score 1-4)) diclofenac sodium 1 % gel 4 g topical QIDP PRN (Reason: CHRONIC PAIN) Rx Instructions: apply to single, ankle, foot; for foot includes sole/toes/top of foot tamsulosin 0.4 mg capsule 0.4 mg PO DAILY Xarelto 15 mg tablet 15 mg PO QPMWITHMEAL Changed furosemide 20 mg tablet 40 mg PO DAILY Qty: 30 0RF Discontinued metoprolol succinate 25 mg tablet extended release 24 hr 25 mg PO DAILY 30 Days Qty: 90 2RF Problem Reconciliation Problems Reviewed?: Yes Patient Discharge Instructions ACTIVITY: Continue current activity DIET: continue same diet Patient Instructions: Cellulitis, DI for Cardiac Catheterization, DI for Surgical Site Infection, DI for Sepsis -- Adult, DI for Altered Mental Status, Stop Light Infection Print Language: [place] Providers Primary Care Provider: Tatianna Sandoval Admit Provider: De Palacio Attending Provider: De Palacio
[2024-07-27 19:33] LABS: POC Glucose,Bedside 266 (70-110)
--- NOTE | 2024-07-29 10:16 | SW/DCPLANNER ---
Spoke with patient on the phone. Patient stated that he is doing well. Patient stated that he is aware of his upcoming appointments. Patient stated that he was able to get his medicine picked up at [facility] and that he is waiting on his other to come in the mail. Patient stated that he has no concerns or questions at this time. Doug Camara
== END 2024-07-27 13:59 | disposition home or self-care (01) | DRG 871 ==
LOC: ER 19:16 → 2ND 21:07
PROVIDERS: Nurse Practitioner; Student in an Organized Health Care Education/Training Program; Admitting Provider Internal Medicine Adolescent Medicine; Emergency Provider Student in an Organized Health Care Education/Training Program; PCP Nurse Practitioner; Visit Provider Internal Medicine Adolescent Medicine
DX: A41.9 Sepsis, unspecified organism (principal); G93.41 Metabolic encephalopathy; I21.A1 Myocardial infarction type 2; L03.115 Cellulitis of right lower limb; N17.9 Acute kidney failure, unspecified; I48.3 Typical atrial flutter; I48.92 Unspecified atrial flutter; R65.20 Severe sepsis without septic shock; I89.0 Lymphedema, not elsewhere classified; I10 Essential (primary) hypertension; L53.9 Erythematous condition, unspecified; R00.0 Tachycardia, unspecified; I95.9 Hypotension, unspecified; M06.9 Rheumatoid arthritis, unspecified; R32 Unspecified urinary incontinence; I48.0 Paroxysmal atrial fibrillation; R79.89 Other specified abnormal findings of blood chemistry; H93.19 Tinnitus, unspecified ear; M54.10 Radiculopathy, site unspecified; N40.0 Benign prostatic hyperplasia without lower urinary tract symptoms; L97.519 Non-pressure chronic ulcer of other part of right foot with unspecified severity; I25.10 Atherosclerotic heart disease of native coronary artery without angina pectoris; E66.9 Obesity, unspecified; R41.3 Other amnesia; I65.29 Occlusion and stenosis of unspecified carotid artery; K52.89 Other specified noninfective gastroenteritis and colitis; E11.621 Type 2 diabetes mellitus with foot ulcer; R19.7 Diarrhea, unspecified; J98.4 Other disorders of lung; R50.9 Fever, unspecified; E11.51 Type 2 diabetes mellitus with diabetic peripheral angiopathy without gangrene; Z95.5 Presence of coronary angioplasty implant and graft; Z88.0 Allergy status to penicillin; Z91.148 Patient's other noncompliance with medication regimen for other reason; Z90.49 Acquired absence of other specified parts of digestive tract; Z96.651 Presence of right artificial knee joint; Z80.9 Family history of malignant neoplasm, unspecified; Z22.7 Latent tuberculosis; Z83.3 Family history of diabetes mellitus; Z82.0 Family history of epilepsy and other diseases of the nervous system; Z84.89 Family history of other specified conditions; Z79.01 Long term (current) use of anticoagulants; Z79.84 Long term (current) use of oral hypoglycemic drugs; Z79.891 Long term (current) use of opiate analgesic; Z79.85 Long-term (current) use of injectable non-insulin antidiabetic drugs; Z79.1 Long term (current) use of non-steroidal anti-inflammatories (NSAID); Z79.2 Long term (current) use of antibiotics; Z79.899 Other long term (current) drug therapy; Z79.02 Long term (current) use of antithrombotics/antiplatelets; Z68.31 Body mass index [BMI] 31.0-31.9, adult; Z53.8 Procedure and treatment not carried out for other reasons
CPT/HCPCS: 36415; 70450; 71045; 71275; 73700; 74177; 80048; 80053; 80202; 81001; 82803; 82962; 83605; 83690; 83735; 83880; 84100; 84145; 84484; 85007; 85025; 85651; 86140; 87040; 87081; 87636; 93005; 93308; 93971; 97163; 99291; J0696; J1650; J1939; J2405; J3372; J3475; J7030; J7120; Q9957; Q9967

== ENCOUNTER 2024-07-30 11:55 | Observation (INO) | payer MEDICARE, SELFPAY ==
[2024-07-30] VITALS (11 sets, daily range): BP systolic 92–120; BP diastolic 63–92; PULSE 78–99; RESP 14–20; TEMP 36.5–37.1; O2SAT 95–100; BMI 28.9
--- NOTE | 2024-07-30 12:00 | ED_ITS ---
<Statement entered by Lele Smith MD - 07/31/24 21:45> I was consulted by the DIPAK, and we discussed the complexity of the problems being addressed. I approved the treatment and management plan for this patient's care in the emergency department, thus performing a substantive portion of the medical decision making. Lele Smith MD, DARLENE, FACEP Discharge Plan Disposition Patient Disposition: Admitted Condition: Fair Prescriptions Prescriptions: No Action tramadol 50 mg tablet 50 mg PO TID metformin 1,000 mg tablet 1,000 mg PO BID Qty: 60 2RF atorvastatin 40 mg tablet 40 mg PO HS 30 Days Qty: 90 2RF Mounjaro 5 mg/0.5 mL pen injector 5 mg SQ WEEKLY 90 Days Qty: 6.5 2RF omeprazole 40 mg capsule,delayed release(DR/EC) 40 mg PO DAILY 90 Days Qty: 90 3RF clopidogrel 75 mg tablet 75 mg PO DAILY lidocaine 5 % ointment 1 applic topical BIDP PRN (Reason: Mild Pain (Scale Score 1-4)) diclofenac sodium 1 % gel 4 g topical QIDP PRN (Reason: CHRONIC PAIN) Rx Instructions: apply to single, ankle, foot; for foot includes sole/toes/top of foot bumetanide 1 mg tablet 1 mg PO DAILY Qty: 30 0RF cephalexin 500 mg capsule 500 mg PO TID Qty: 9 0RF furosemide 20 mg tablet 40 mg PO DAILY Qty: 30 0RF metoprolol succinate [Toprol XL] 50 mg Tablet Extended Release 24 Hr 50 mg PO DAILY 30 Days Qty: 30 0RF tamsulosin 0.4 mg capsule 0.4 mg PO DAILY Xarelto 15 mg tablet 15 mg PO QPMWITHMEAL Referrals Follow up/Referrals: Tatianna Sandoval APRN [Referring] - See instructions Clinical Impressions Clinical Impression: Acute nontraumatic kidney injury, Elevated troponin, Elevated brain natriuretic peptide (BNP) level, Hypomagnesemia Dyspnea Qualifiers: Dyspnea type: shortness of breath Qualified Code(s): R06.02 - Shortness of breath Print Language Print Language: Macedonian Discharge ED Provider: Lele Smith HPI General Chief Complaint: Shortness of Breath/Dyspnea Stated Complaint: SOA Time Seen by Provider: 07/30/24 12:00 History of Present Illness HPI narrative: Patient presents for evaluation of dyspnea. Patient has a longstanding history of atrial flutter on Xarelto, latent TB, rheumatoid arthritis, coronary artery disease status post PCI with stent placement in the left main LAD circumflex and ramus most recently and May 2024, peripheral arterial disease, type 2 diabetes mellitus, chronic lymphedema right greater than left, and most recently admitted from 07/03/2024 through 07/27/2024 for right lower extremity cellulitis and an NSTEMI. Patient was ultimately discharged after stabilization with continuation of oral Keflex for the cellulitis and outpatient follow-up with cardiology for ischemic heart disease. Patient reports that he is having ongoing dyspnea that predated his admission last week and has continued unabated since discharge. At baseline patient does not wear home oxygen and does not have home oxygen and is not currently requiring it here satting at 100% on room air. He did have an echocardiogram in May that showed an EF of 50% and a emergency department [id number] ultrasound that did not reveal any change in his EF according to the cardiology note. Patient reports that the shortness of breath is only gotten worse since discharge and is short of breath even with light exertion at rest and worse with even trying to walk a few steps. He denies any chest pain fever chills hemoptysis hematochezia melena nausea vomiting diarrhea. Of note his diuresis was increased on discharge to 1 mg of Bumex. Related Data Home Medications ?Medication ?Instructions ?Recorded ?Confirmed rivaroxaban 15 mg tablet (Xarelto) 15 mg PO QPMWITHMEAL 03/05/24 07/24/24 tamsulosin 0.4 mg capsule 0.4 mg PO DAILY 03/05/24 07/23/24 tramadol 50 mg tablet 50 mg PO TID 03/15/24 07/23/24 clopidogrel 75 mg tablet 75 mg PO DAILY 07/24/24 07/24/24 diclofenac sodium 1 % topical gel 4 g topical QIDP PRN CHRONIC PAIN 07/24/24 07/24/24 lidocaine 5 % topical ointment 1 applic topical BIDP PRN Mild 07/24/24 07/24/24 Pain (Scale Score 1-4) Previous Rx's ?Medication ?Instructions ?Recorded metformin 1,000 mg tablet 1,000 mg PO BID #60 tabs 05/29/24 atorvastatin 40 mg tablet 40 mg PO HS 30 days #90 tabs 06/25/24 tirzepatide 5 mg/0.5 mL 5 mg (0.5 mL) SQ WEEKLY 90 days 06/28/24 subcutaneous pen injector #6.5 mL (Mckayla) omeprazole 40 mg capsule,delayed 40 mg PO DAILY GERD 90 days #90 07/16/24 release caps bumetanide 1 mg tablet 1 mg PO DAILY #30 tabs 07/27/24 cephalexin 500 mg capsule 500 mg PO TID #9 caps 07/27/24 furosemide 20 mg tablet 40 mg (2 x 20 mg) PO DAILY #30 tabs 07/27/24 metoprolol succinate 50 mg 50 mg PO DAILY 30 days #30 tabs 07/27/24 tablet,extended release 24 hr (Toprol XL) Allergies Allergy/AdvReac Type Severity Reaction Status Date / Time Penicillins (PENICILLINS) Allergy Unknown I-ITCHING Verified 07/08/24 14:[address] [facility] Disclaimer: The information contained in this section may have been updated after the patient was seen, as this information can be updated by other users. Medical History Vocal cord edema Ringing in right ear Chronic hoarseness Globus sensation Vertigo Recurrent vertigo upon turning head toward the left associated with tinnitus. Diverticulitis IBS (irritable bowel syndrome) Latent tuberculosis Rheumatoid arthritis Viral gastroenteritis Laceration of face Patient is not currently bleeding Atypical angina NSTEMI (non-ST elevated myocardial infarction) Atrial flutter On Xarelto Asbestos exposure Tachycardia Abnormal ECG Preoperative testing Episodic confusion He was referred to epilepsy program, EMU but has decided to cancel the appointment Allergic rhinitis Dyspnea on exertion Latent tuberculosis by blood test Seen by pulmonology at [facility] and prescribed INH, RFP, B6 but he never took the medicine as prescribed Restrictive lung disease Left sided abdominal pain Left shoulder strain Left groin pain Claustrophobia Chronic cough Cognitive complaints 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, word finding difficulty Edema of both lower extremities Decreased pedal pulses Non-healing ulcer of foot Right 3rd distal tip DFU Decreased ROM of right shoulder Right shoulder pain Right shoulder injury Pes planus of both feet Skin lesion Impotence Low back pain Left against medical advice Memory loss Chronic SI joint pain Radiculopathy Neuropathic pain Leg pain, posterior Kidney stone Ingrown toenail of right foot Pre-ulcerative calluses Splinter of toe of left foot Pain of left great toe Cellulitis of great toe of right foot Acute bacterial bronchitis Incurved toenail Diabetes mellitus HA1c- 7.3% 06/06/24 Onychomycosis Pain in both feet Callus of foot Diabetic foot ulcer Acute febrile illness SIRS (systemic inflammatory response syndrome) Left against medical advice Lower extremity edema Epistaxis Encounter for pre-operative cardiovascular clearance Sepsis Urinary incontinence Weakness Cellulitis, leg Obesity (BMI 30-39.9) Acute delirium Cellulitis Severe sepsis SIRS (systemic inflammatory response syndrome) Physical deconditioning Bacterial pneumonia Hypokalemia Bronchitis due to COVID-19 virus Pneumonia due to COVID-19 virus COVID-19 virus infection Exposure to COVID-19 virus Viral syndrome Acute bronchitis Hematuria Kidney stone on right side Multiple renal cysts Cough Diastolic dysfunction Mental status change resolved HTN (hypertension) Dyspnea SOB (shortness of breath) HHD (hypertensive heart disease) Pre-op evaluation Microalbuminuria Enlarged prostate History of IBS Diabetes Acquired lymphedema Surgical History History of cardiac cath History of total right knee replacement History of rotator cuff surgery History of coronary artery stent placement History of cholecystectomy Hx of total knee arthroplasty Family History Other Cancer Cerebral palsy Dementia Diabetes Social History (Updated 07/23/24 @ 22:55 by Angelica John RN) Smoking Status: Former smoker alcohol intake: never counseling provided: none substance use type: denies use current occupational status: employed and retired Travel in the last 8 weeks?: None household members: spouse housing: house caffeine: Yes Have you lived/traveled outside US in past 30 days?: No Contact w/someone who lives/traveled outside US past 30 days?: No Exposure to someone with infectious disease in past 14 days?: No Do you have a fever (greater than 100.4 F or 38 C)?: No Have you tested positive for COVID-19?: No Exposed to someone with COVID-19 in past 14 days?: No Do you have a sore throat?: No Do you have a cough?: No Do you have any weakness?: No Do you have any diarrhea?: No Are you experiencing any unusual bleeding?: No Do you have any muscle aches/pain?: No Do you have any abdominal pain?: No Are you experiencing loss of taste or smell?: No Other Medical History Have you received the Flu Vaccine for this season: No Have you received the Pneumonia Vaccine: No ROS Obtained: Yes Systems reviewed as appropriate & no additional complaints except as documented Physical Exam General General appearance: alert and in no apparent distress Respiratory Respiratory exam: Present normal lung sounds bilaterally Cardiovascular Cardiovascular exam: Present regular rate Neurological Exam Neurological exam: Present alert and oriented X3 HEART Score HEART Score HEART Score assessment performed?: Yes History (anamnesis): Slightly suspicious ECG: Non-specific disturbance Age: >65 years Risk factors: Atherosclerosis history Troponin: 1-3x normal limit HEART Score: 6 Critical Care Critical Care Time Critical Care Time: Yes Attestation: On 07/30/24, the high probability of a clinically significant, sudden or life threatening deterioration of the following system(s) required my full and direct attention, intervention and personal management. The time I documented below is in addition to time spent performing reported procedures but includes the following listed in this critical care notation. Total Time Total Critical Care Time: 35 Medical Decision Making Medical Records Medical records reviewed: Yes I reviewed the patient's medical records. Jevon Inquiry Pt receiving controlled substance: No Vital Signs Vital Signs: 07/30/24 12:06 07/30/24 12:30 07/30/24 13:00 Temperature 98.0 F Temperature Source Oral Pulse Rate 88 Pulse Rate [Left Radial] 99 H Respiratory Rate 18 15 17 Blood Pressure 108/63 L 100/69 L Blood Pressure [Right Arm] 116/92 H Blood Pressure Mean [Right Arm] 100 Blood Pressure Source [Right Arm] Automatic Cuff Blood Pressure Position [Right Arm] Supine 02 Sat by Pulse Oximetry 100 98 Oxygen Delivery Method Room Air Room Air 07/30/24 13:30 Temperature Temperature Source Pulse Rate 82 Pulse Rate [Left Radial] Respiratory Rate 19 Blood Pressure 100/68 L Blood Pressure [Right Arm] Blood Pressure Mean [Right Arm] Blood Pressure Source [Right Arm] Blood Pressure Position [Right Arm] 02 Sat by Pulse Oximetry 99 Oxygen Delivery Method Room Air Lab Data Lab results reviewed: Yes I reviewed the patient's lab results. Labs: Lab Results 07/30/24 12:05: WBC 7.7, RBC 5.31, Hgb 14.1, Hct 42.5, MCV 80.0, MCH 26.6 L, MCHC 33.2, RDW 14.3, Plt Count 364 D, MPV 10.3, Neut % (Auto) 76.6, Lymph % (Auto) 11.9, [place] % (Auto) 7.6, Eos % (Auto) 1.4, Baso % (Auto) 0.6, Neut # (Auto) 5.9, Lymph # (Auto) 0.9, [place] # (Auto) 0.6, Eos # (Auto) 0.1, Baso # (Auto) 0.1, Sodium 136, Potassium 4.0, Chloride 101, Carbon Dioxide 22, Anion Gap 17.0 H, BUN 34 H, Creatinine 2.40 H, Estimated Creat Clear 35, Estimated GFR 27 L, Est GFR ( Amer) 32 L, Glucose 162 H, Calcium 9.3, Magnesium 1.5 L, Total Bilirubin 1.5 H, AST 46, ALT 48, Alkaline Phosphatase 98, Troponin I 0.35 H, NT-Pro-B Natriuret Pep 1070 H, Total Protein 7.7, Albumin 4.6, Globulin 3.1, Albumin/Globulin Ratio 1.5, Procalcitonin 0.518 07/30/24 12:05 07/30/24 12:05 Response Orders (Tests/Meds): ED MEDICATIONS Generic Name Dose Route Start Last Admin Trade Name Freq PRN Reason Stop Dose Admin Magnesium Sulfate 2 gm in 50 mls @ 50 mls/hr 07/30/24 13:03 07/30/24 13:07 Magnesium Sulfate 2gm/50ml Premix IV 07/30/24 14:02 50 mls/hr ONCE ONE Administration ORDERS Category Date Time Status Chest XR -- portable [XR chest portable] Stat Exams 07/30/24 13:22 Taken BNP [NT Pro Brain Natriuretic Pep.] Stat Lab 07/30/24 12:05 Completed CBC w/Auto Diff [Complete Blood Count Auto Diff] Stat Lab 07/30/24 12:05 Completed CMP [Comprehensive Metabolic Panel] Stat Lab 07/30/24 12:05 Completed Magnesium Stat Lab 07/30/24 12:05 Completed Procalcitonin Stat Lab 07/30/24 12:05 Completed Trop I [Troponin I] Stat Lab 07/30/24 12:05 Completed Troponin I Q3H Lab 07/30/24 15:30 Ordered Troponin I Q3H Lab 07/30/24 18:30 Ordered MDM Narrative Medical Decision Narrative: In summary patient is a 74-year-old male who presents to the emergency department for evaluation of dyspnea. Patient is initially normotensive with a blood pressure 116/92 heart rate of 99 with normal sinus rhythm on the bedside monitor breathing 18 times a minute satting 100% on room air upon arrival, afebrile at 98. Physical exam reveals increased work of breathing however breath sounds are clear and equal bilaterally to the bases without adventitious sounds, patient does have marked right greater than left lymphedema however cellulitis appears to be improving, abdomen soft nontender no rebound or guarding no rigidity.. Differential diagnosis includes coronary artery disease versus CHF versus worsening pulmonary disease versus volume overload versus renal failure etc. Initial workup will be conducted with hematologic labs and twelve-lead EKG. Initial interventions are deferred until ACEVEDO more clear as patient does not currently have respiratory distress or an oxygen requirement but will continue continuous pulse oximetry and cardiac monitoring. Initial workup reviewed by me and his hematologic labs significant for white count of 7.7 normal hemoglobin and hematocrit with no neutrophilic shift, chemistries significant for an anion gap of 17 and BUN of 34 creatinine of 2.4 GFR of 27 glucose 162 and magnesium of 1.5 initial troponin of 0.35 NT proBNP is 1070 procalcitonin is 0.518 and my informal interpretation of his plain film chest x- ray today also in comparison with chest x-ray done from 07/23/2024 shows no acute intrathoracic abnormality no increased fluid or infiltrates prior to radiology read. Please see radiology read for formal interpretation. I have started the magnesium repletion IV. I reinterviewed the patient regarding his diuretic. He was prescribed Bumex on discharge however previously had Lasix at home. He did not feel the Bumex but has been doubling his Lasix at home. Given the acute kidney injury the elevated troponin and NT proBNP despite aggressive diuresis I had an interactive discussion with hospital medicine regarding patient presentation ACEVEDO and management and he will be admitted for further evaluation of care. Incidentally I spoke with Dr. Biggs regarding the patient and he also indicated that should he have continued elevated troponin and BNP to likely admit him for further ischemic.
--- OUTSIDE RECORDS SUMMARY | 2024-07-30 12:01 | XMS_ITS | Data Portability ---
Author Organization [facility] Address [address] [place] [address] Assessment Encounter Date Assessment Date Assessment LastModified [...] By Organization Details Last Modified Time 11/23/2018 [id number] shoulder arthritis: exercises [email or web address] Not available 11/29/2018 [...] Details Recorded Time Testicula r hypofunct ion 771974174 Active 2015 From Automated Load;Prov ider: Sg Orourke Jr;St atus: Active Not Available [facility] 7 02:42:07 Reduced libido 3873805 Active 2015 From Automated Load;Prov ider: Sg Oorurke Jr;St atus: Active Not Available [facility] 7 06:28:36 Impotence Active 2015 From Automated Load;Prov ider: Sg Orourke Jr;St atus: Active Not Available [facility] 7 07:22:50 Lower urinary tract symptoms due to benign prostatic hypertrop hy 27909517639 101 Active 2015 From Automated Load;Prov ider: Sg Orourke Jr;St atus: Active Not Available [facility] 7 08:26:38 Problem Notes None recorded. Medical Equipment None Reported. Allergies Allergen ID Allergen Name Allergen Category Reaction Reaction Severity Criticality Documentation Date Start Date Code Code System Note Provider Name and Address Organization Details Recorded Time 570565 Product containin g penicilli n (product) medicatio n Not available Not available Not available 05/09/20162014 43059 8001 SNOMED Comme nt: Creat ed By: Annita huff MaddieKee chaudhari d Date: 2014 10:23 :22 AM; Not Available [facility] 7 10:59:12 Medications Name Sig Start [...] Updated DateTime 11/23/2018 175.26 cm 33.1 kg/m2 525567.6 9 g 132 mm[Hg] 80 mm[Hg] Rebeca Mejias [facility] 9 09:33:02 Social History None recorded. [...] SNOMED-CT Code Diagnosis ICD10 Code Diagnosis Note [id number] QM_[place] [address] 07/06/2016 15:48:49 07/06/2016 15:48:49 [id number] Skinny MONDRAGON MD [facility] [address] [place] [address] 11/23/2018 08:51:17 11/27/2018 15:10:20 Localized, primary osteoarthritis of the shoulder region 330100790 M19.019 Health Concerns Section Related Observation LastModified by Organization Detai ls LastModified Time None Recorded Concern Status LastModified by Organization Details LastModified Time None Recorded Advance Directives Directive None Recorded Payers Encounter Date Sequence Insurance Name Policy Number Policy Neal Covered Member ID Neal Member ID Guarantor Name 11/23/2018 1 [employer] (MEDICARE REPLACEMENT PPO) [id number] [place] [employer] [id number] [place] Notes Date Note Type Note Provider Name and Address Organization Details Recorded Time 11/23/2018 text/html The maximal problems are with abduction and rotation and pushing with the arm. Skinny MONDRAGON MD [address] [place], [address], [facility] 11/29/2018 09:27:12
--- NOTE | 2024-07-30 12:02 | ECG_ITS ---
APPROVED REPORT Exam: Resting ECG HR:95 bpm ECG Measurements Heart Rate 95 AXES [place] 134 P 54 QRSd 93 QRS 54 QT 360 T 50 QTc 413 Conclusion SINUS RHYTHM NONSPECIFIC ST & T-WAVE ABNORMALITY BORDERLINE ECG UNCONFIRMED REPORT Electronically signed by : De Smith, 07/30/2024 15:15:00
[2024-07-30 12:39] LABS: Albumin Level 4.6 g/dl (3.5-5.0); Basophils # 0.1 K/mm3 (0-0.2); Basophils % 0.6 % (0.1-2.0); Chloride 101 mmol/L (98-107); Eosinophils # 0.1 Kmm3 (0.0-0.4); Eosinophils % 1.4 % (0.1-12.0); Hematocrit 42.5 % (42.0-52.0); Hemoglobin 14.1 g/dL (14.1-18.0); Immature Granulocytes # 0.15 10^3uL; Immature Granulocytes % 1.9 %; Lymphocytes # 0.9 K/mm3 (0.7-4.5); Lymphocytes % 11.9 % (10-50); Mean Corpuscular HGB Conc 33.2 g/dL (31.8-35.4); Mean Corpuscular Hemoglobin 26.6 pg (27.0-31.2); Mean Platelet Volume 10.3 fl (7.4-10.4); Monocytes # 0.6 K/mm3 (0.1-1.0); Monocytes % 7.6 % (1.7-9.3); Neutrophils # 5.9 K/mm3 (1.8-7.8); Neutrophils % 76.6 % (37.0-80.0); Nucleated Red Blood Cells # 0 10^3/uL; Nucleated Red Blood Cells % 0 %; Platelet Count 364 K/mm3 (142-424); Red Blood Count 5.31 M/mm3 (4.60-6.20); Red Cell Distribution Width 14.3 % (11.5-17.5); Red Cell Distribution Width-SD 41.1 fL; White Blood Count 7.7 K/mm3 (4.8-10.8)
[2024-07-30 12:40] LABS: Sodium 136 mmol/L (136-145)
[2024-07-30 12:42] LABS: Alanine Aminotransferase 48 U/L (12-78); Alkaline Phosphatase 98 U/L (38-126); Aspartate Amino Transferase 46 U/L (17-59); Bilirubin,Total 1.5 mg/dl (0.2-1.3); Blood Urea Nitrogen 34 mg/dl (9-20); Carbon Dioxide 22 mmol/L (22.0-30.0); Creatinine Clearance Estimated 35 mL/min (50-200); Estimated Glomerular Filt Rate 27 ml/min (>60); GFR (African American) 32 ML/MIN (>60)
[2024-07-30 12:43] LABS: Albumin/Globulin Ratio 1.5 (1.1-1.8); Calcium 9.3 mg/dl (8.4-10.2); Globulin 3.1 g/dL (1.3-3.2); Glucose 162 mg/dl (74-100); Magnesium 1.5 mg/dl (1.6-2.3); Total Protein,Serum 7.7 g/dl (6.3-8.2)
[2024-07-30 12:53] LABS: NT Pro Brain Natriuretic Pep. 1070 pg/mL (0-125)
[2024-07-30 13:04] LABS: Troponin I 0.35 ng/ml (0.00-0.034)
[2024-07-30] MEDS: MAGNESIUM SULFATE IN WATER 2 GM/50 ML PIGGYBACK IV ×2 (13:07→16:47)
--- NOTE | 2024-07-30 13:22 | XR_ITS ---
FINAL REPORT CLINICAL HISTORY: Shortness of breath COMPARISON: 07/23/2024 FINDINGS: A single PA view of the chest was obtained. The cardiac and mediastinal silhouettes are within normal limits. The lungs are clear. There is no pleural effusion or pneumothorax. IMPRESSION: No radiographic evidence of acute cardiac or pulmonary disease on this single view of the chest. Reviewed, Interpreted and Dictated by Esther Mcclain MD Transcribed by Rosa Khanna Authenticated and [facility]
[2024-07-30 13:30] LABS: Procalcitonin 0.518 ng/mL (0.0-2.0)
--- NOTE | 2024-07-30 13:45 | PC.NURSE ---
I notified HS of the need for a bed for admission. Pt will be obs in the ED until a bed comes available.
--- NOTE | 2024-07-30 14:41 | PC.NURSE ---
report called to barbra on second floor
--- NOTE | 2024-07-30 15:14 | PC.NURSE ---
arrived by w/c from ED
[2024-07-30 16:59] LABS: POC Glucose,Bedside 123 (70-110)
[2024-07-30 17:03] LABS: Troponin I 0.29 ng/ml (0.00-0.034)
--- NOTE | 2024-07-30 17:13 | PC.NURSE ---
pt resting supine in bed at this time. tolerating ra with sats >90%. magnesium replaced per electrolyte protocol. no complaints of pain or SOA. no needs at this time. call light within reach.
--- NOTE | 2024-07-30 18:29 | EXP.HP ---
History of Present Illness *Admission Date: 07/30/24 *History of present illness: Mable Alford is a 74-year-old male with medical history significant for CAD with stents who presents with progressive dyspnea on exertion. He states he was doing since his last discharge about 3 days ago, however did not supervisor reclamation his Bumex but rather increased his Lasix to 40 mg daily. He states he has been having increasing shortness of breath, and has been the worst this morning. Patient had an NSTEMI during last admission but was rather asymptomatic, plan was to pursue outpatient ischemic workup. Troponin 5.8 at that time. Troponin 0.35 and downtrending this time. Also has a GUILLERMO with creatinine 2.4. Case discussed with ED provider and she was made to admit patient for GUILLERMO, NSTEMI, shortness of breath. [facility] Disclaimer: The information contained in this section may have been updated after the patient was seen, as this information can be updated by other users. Medical History Orthostatic hypotension Dizziness Atypical angina Cellulitis of right leg Vocal cord edema Ringing in right ear Chronic hoarseness Globus sensation Vertigo Recurrent vertigo upon turning head toward the left associated with tinnitus. Diverticulitis IBS (irritable bowel syndrome) Latent tuberculosis Rheumatoid arthritis Viral gastroenteritis Laceration of face Patient is not currently bleeding NSTEMI (non-ST elevated myocardial infarction) Atrial flutter On Xarelto Asbestos exposure Tachycardia Abnormal ECG Preoperative testing Episodic confusion He was referred to epilepsy program, EMU but has decided to cancel the appointment Allergic rhinitis Dyspnea on exertion Latent tuberculosis by blood test Seen by pulmonology at [facility] and prescribed INH, RFP, B6 but he never took the medicine as prescribed Restrictive lung disease Left sided abdominal pain Left shoulder strain Left groin pain Claustrophobia Chronic cough Cognitive complaints 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, word finding difficulty Edema of both lower extremities Decreased pedal pulses Non-healing ulcer of foot Right 3rd distal tip DFU Decreased ROM of right shoulder Right shoulder pain Right shoulder injury Pes planus of both feet Skin lesion Impotence Low back pain Left against medical advice Memory loss Chronic SI joint pain Radiculopathy Neuropathic pain Leg pain, posterior Kidney stone Ingrown toenail of right foot Pre-ulcerative calluses Splinter of toe of left foot Pain of left great toe Cellulitis of great toe of right foot Acute bacterial bronchitis Incurved toenail Diabetes mellitus HA1c- 7.3% 06/06/24 Onychomycosis Pain in both feet Callus of foot Diabetic foot ulcer Acute febrile illness SIRS (systemic inflammatory response syndrome) Left against medical advice Lower extremity edema Epistaxis Encounter for pre-operative cardiovascular clearance Sepsis Urinary incontinence Weakness Cellulitis, leg Obesity (BMI 30-39.9) Acute delirium Cellulitis Severe sepsis SIRS (systemic inflammatory response syndrome) Physical deconditioning Bacterial pneumonia Hypokalemia Bronchitis due to COVID-19 virus Pneumonia due to COVID-19 virus COVID-19 virus infection Exposure to COVID-19 virus Viral syndrome Acute bronchitis Hematuria Kidney stone on right side Multiple renal cysts Cough Diastolic dysfunction Mental status change resolved HTN (hypertension) Dyspnea SOB (shortness of breath) HHD (hypertensive heart disease) Pre-op evaluation Microalbuminuria Enlarged prostate History of IBS Diabetes Acquired lymphedema Surgical History History of cardiac cath History of total right knee replacement History of rotator cuff surgery History of coronary artery stent placement History of cholecystectomy Hx of total knee arthroplasty Family History Other Cancer Cerebral palsy Dementia Diabetes Social History Smoking Status: Former smoker alcohol intake: never counseling provided: none substance use type: denies use current occupational status: employed and retired Travel in the last 8 weeks?: None household members: spouse housing: house caffeine: Yes Other Medical History Have you received the Flu Vaccine for this season: Yes Have you received the Pneumonia Vaccine: Yes Meds Home Medications and Allergies Home Medications ?Medication ?Instructions ?Recorded ?Confirmed ?Type rivaroxaban 15 mg tablet (Xarelto) 15 mg PO QPMWITHMEAL 03/05/24 08/15/24 History tamsulosin 0.4 mg capsule 0.4 mg PO DAILY 03/05/24 08/15/24 History tramadol 50 mg tablet 50 mg PO TID 03/15/24 08/15/24 History atorvastatin 40 mg tablet 40 mg PO HS 30 days #90 tabs 06/25/24 08/15/24 Rx clopidogrel 75 mg tablet 75 mg PO DAILY 07/24/24 08/15/24 History diclofenac sodium 1 % topical gel 4 g topical QIDP PRN CHRONIC PAIN 07/24/24 08/15/24 History omeprazole 40 mg capsule,delayed 40 mg PO DAILY 07/30/24 08/15/24 History release metoprolol succinate 25 mg 25 mg PO DAILY #30 tabs 08/01/24 08/15/24 Rx tablet,extended release 24 hr (Toprol XL) folic acid 1 mg tablet 1 mg PO DAILY #90 tabs 08/05/24 08/15/24 Rx metformin 1,000 mg tablet 1,000 mg PO BID #60 tabs 08/06/24 08/15/24 Rx ondansetron HCl 4 mg tablet 4 mg PO Q8H PRN nausea and 08/07/24 08/15/24 Rx vomiting 4 days #30 tabs lidocaine 5 % topical ointment See Rx Instructions .Route 08/14/24 08/15/24 Rx .COMPLEX #70.88 grams colestipol 1 gram tablet 1 g PO BID #180 tabs 08/15/24 08/15/24 Rx cyclobenzaprine 5 mg tablet 5 mg PO TID PRN 08/15/24 08/15/24 History New Prescriptions to Start Prescriptions: folic acid Jer Chacon metoprolol succinate [Toprol XL] Jer Chacon Allergies Allergy/AdvReac Type Severity Reaction Status Date / Time Penicillins (PENICILLINS) Allergy Unknown I-ITCHING Verified 08/15/24 15:27 Exam Data for Last 24 hours Vital signs and Labs for Last 24 Hours: Temp Pulse Resp BP Pulse Ox O2 Del Method 98.7 F 93 H 14 92/64 L 99 Room Air 07/30/24 15:13 07/30/24 16:00 07/30/24 16:00 07/30/24 16:00 07/30/24 16:00 07/30/24 16:56 Laboratory Results - last 24 hr 07/30/24 12:05: WBC 7.7, RBC 5.31, Hgb 14.1, Hct 42.5, MCV 80.0, MCH 26.6 L, MCHC 33.2, RDW 14.3, Plt Count 364 D, MPV 10.3, Neut % (Auto) 76.6, Lymph % (Auto) 11.9, [place] % (Auto) 7.6, Eos % (Auto) 1.4, Baso % (Auto) 0.6, Neut # (Auto) 5.9, Lymph # (Auto) 0.9, [place] # (Auto) 0.6, Eos # (Auto) 0.1, Baso # (Auto) 0.1, Sodium 136, Potassium 4.0, Chloride 101, Carbon Dioxide 22, Anion Gap 17.0 H, BUN 34 H, Creatinine 2.40 H, Estimated Creat Clear 35, Estimated GFR 27 L, Est GFR ( Amer) 32 L, Glucose 162 H, Calcium 9.3, Magnesium 1.5 L, Total Bilirubin 1.5 H, AST 46, ALT 48, Alkaline Phosphatase 98, Troponin I 0.35 H, NT-Pro-B Natriuret Pep 1070 H, Total Protein 7.7, Albumin 4.6, Globulin 3.1, Albumin/Globulin Ratio 1.5, Procalcitonin 0.518 07/30/24 15:01: Troponin I 0.29 H 07/30/24 16:50: POC Glucose 123 H I & O for Last 24 hours: Intake & Output 07/27/24 07/28/24 07/29/24 07/30/24 23:59 23:59 23:59 23:59 Intake Total 480 / 480 Balance 480 / 480 Weight 88.904 kg Constitutional Constitutional: no acute distress *Routine HEENT Exam Head: Present normocephalic Eye: Present EOMI and PERRL ENT: Present mucous membranes moist *Routine Neck Exam Neck: Present supple; Absent lymphadenopathy *Routine Respiratory Exam Respiratory: Present CTA bilaterally *Routine Cardiovascular Exam Cardiovascular: Present RRR *Routine Abdominal Exam Abdominal: Present soft and normoactive bowel sounds; Absent tenderness *Routine Rectal Exam Rectal:: deferred *Routine Genitalia Exam Genitalia:: deferred *Routine Extremities Exam Extremities: Absent cyanosis, clubbing or edema *Routine Skin Exam Skin: Present warm; Absent rash *Routine Neurological Exam Neurological: Present alert and oriented X3 Assessment and Plan *Assessment and plan (1) Atypical angina: Status: Acute Category: Medical Code(s): I20.89 - Other forms of angina pectoris Plan Mable Alford is a 74-year-old male with medical history significant for CAD with stents who presents with progressive dyspnea on exertion. He states he was doing since his last discharge about 3 days ago, however did not supervisor reclamation his Bumex but rather increased his Lasix to 40 mg daily. He states he has been having increasing shortness of breath, and has been the worst this morning. Patient had an NSTEMI during last admission but was rather asymptomatic, plan was to pursue outpatient ischemic workup. Troponin 5.8 at that time. Troponin 0.35 and downtrending this time. Also has a GUILLERMO with creatinine 2.4. Case discussed with ED provider and she was made to admit patient for GUILLERMO, NSTEMI, shortness of breath. #Shortness of breath #CAD with stents #NSTEMI likely type II #GUILLERMO ? Progressive shortness of breath, though unremarkable workup in the ED. Downtrending troponin since last admission without acute ischemic EKG changes. ? Initial creatinine 2.4, was 1.1 just 3 days ago. Patient has increased his Lasix to 40 mg daily. Patient appears dry on exam. ? It is possible that hypovolemia likely contributed to shortness of breath, though patient does have coronary disease. CXR without acute findings. ? Ordered 500 mL bolus. Follow-up BMP in the morning. ? Cardiology consulted, pending further recommendations. Tentatively planning for LHC in the morning. ? Continue metoprolol succinate 75 mg, Plavix 75 mg, atorvastatin 40 mg. #A-fib ? Continue home metoprolol, hold off on Xarelto until LHC tomorrow. #Dizziness #Lightheadedness ? Patient endorses several month onset of dizziness, and occasional episodes of presyncope. He also states this happens with sudden head movements suggesting vertigo. ? Follow-up carotid ultrasound given strong ASCVD history. Head CT normal. TSH normal. #Type 2 diabetes ? Hemoglobin A1c 7.2. On metformin. ? ACHS glucose checks, LDSSI. #GERD ? Continue home PPI. #BPH ? Continue home tamsulosin. Full code DVT prophylaxis: Lovenox 40 mg
[2024-07-30 19:58] LABS: Troponin I 0.26 ng/ml (0.00-0.034)
--- NOTE | 2024-07-30 20:00 | PC.NURSE ---
Lab called me at this time to report a critical troponin value of 0.26 for the patient. Mario Alberto VERGARA was paged to inform him about the lab value.
[2024-07-30] MEDS: PANTOPRAZOLE 40MG TABLET 40 MG PO (20:50)
[2024-07-30] MEDS: RIVAROXABAN 15MG TABLET 15 MG PO (20:50)
[2024-07-30] MEDS: 0.9 % SODIUM CHLORIDE 1000ML 500 ML 250 ML IV (20:50)
[2024-07-30] MEDS: ATORVASTATIN 40MG TABLET 40 MG PO (20:50)
[2024-07-30] MEDS: PATIENT'S OWN HOME MEDICATION (Metformin 1,000 mg tablet) 1000 EACH PO (20:55)
[2024-07-30 21:14] LABS: POC Glucose,Bedside 168 (70-110)
[2024-07-30] MEDS: humaLOG 100 UNITS/ML 10ML VIAL (SSI) SUBCUT (21:15)
--- NOTE | 2024-07-31 03:25 | PC.NURSE ---
Patient is pleasantly conversational and alert/oriented x4. He was observed to have eyes closed, respirations even and unlabored on room air, and no apparent distress throughout the majority of the night. He has not had any complaints during this shift. Upon assessment, the patient stated that he feels like his work of breathing has improved since this arrival (07/30/24). Oxygen saturations have remained > 90%. His lower extremities were also assessed; significant swelling was noted in both legs. The right leg (likely +3 to +4) is considerably worse with mild erythema present. Left leg edema +2. Both lower extremities have remained elevated using pillows. Right leg is more [id number]-touch, and the patient reported very mild pain in the extremity. Pedal pulses +2. Patient also reports having loose stools ongoing. Auscultation of heart, lungs, and bowels were within normal findings. Scheduled medications were administered as appropriately per MAR. Patient ambulates without difficulties. Sugar-free orange jello was given as a bedtime snack. [facility] glucose checks performed. At this time, the patient is resting in bed. No new needs thus far. Call light within reach.
[2024-07-31 04:00] VITALS: BP 103/75; PULSE 85; RESP 16; TEMP 36.5; O2SAT 98; BMI 29.3
[2024-07-31 06:02] LABS: POC Glucose,Bedside 124 (70-110)
[2024-07-31 06:12] LABS: Basophils % 0.9 % (0.1-2.0); Eosinophils # 0.2 Kmm3 (0.0-0.4); Eosinophils % 4.3 % (0.1-12.0); Immature Granulocytes % 2.3 %; Lymphocytes # 0.7 K/mm3 (0.7-4.5); Lymphocytes % 15.5 % (10-50); Mean Corpuscular HGB Conc 33.6 g/dL (31.8-35.4); Mean Corpuscular Hemoglobin 26.7 pg (27.0-31.2); Mean Corpuscular Volume 79.5 fl (80-94); Monocytes # 0.5 K/mm3 (0.1-1.0); Monocytes % 10.4 % (1.7-9.3); Neutrophils % 66.6 % (37.0-80.0); Nucleated Red Blood Cells # 0 10^3/uL; Nucleated Red Blood Cells % 0 %; Platelet Count 273 K/mm3 (142-424); Red Blood Count 4.53 M/mm3 (4.60-6.20); Red Cell Distribution Width 14.3 % (11.5-17.5); Red Cell Distribution Width-SD 41.2 fL; White Blood Count 4.4 K/mm3 (4.8-10.8)
[2024-07-31 06:16] LABS: Hemoglobin 11.9 g/dL (14.1-18.0)
[2024-07-31 06:21] LABS: Alanine Aminotransferase 30 U/L (12-78); Albumin Level 3.7 g/dl (3.5-5.0); Albumin/Globulin Ratio 1.4 (1.1-1.8); Alkaline Phosphatase 77 U/L (38-126); Anion Gap 9.3 mEq/L (5-15); Aspartate Amino Transferase 33 U/L (17-59); Bilirubin,Total 1.2 mg/dl (0.2-1.3); Blood Urea Nitrogen 37 mg/dl (9-20); Calcium 8.6 mg/dl (8.4-10.2); Carbon Dioxide 23 mmol/L (22.0-30.0); Chloride 104 mmol/L (98-107); Creatinine Clearance Estimated 40 mL/min (50-200); Estimated Glomerular Filt Rate 31 ml/min (>60); GFR (African American) 38 ML/MIN (>60); Globulin 2.6 g/dL (1.3-3.2); Glucose 118 mg/dl (74-100); Magnesium 2.6 mg/dl (1.6-2.3); Potassium 3.3 mmoL/L (3.5-5.1); Sodium 133 mmol/L (136-145); Total Protein,Serum 6.3 g/dl (6.3-8.2)
[2024-07-31 08:00] VITALS: BP 135/68; PULSE 85; RESP 18; TEMP 36.4; O2SAT 96
[2024-07-31] MEDS: CLOPIDOGREL 75MG TAB 75 MG PO (08:04)
[2024-07-31] MEDS: ENOXAPARIN 40MG/0.4ML SYRINGE 40 MG SUBCUT (08:04)
[2024-07-31] MEDS: METOPROLOL SUCCINATE XL 50MG TABLET 50 MG PO (08:04)
[2024-07-31] MEDS: POTASSIUM CHLORIDE 20MEQ TAB 40 MEQ PO ×2 (09:24→13:40)
[2024-07-31] MEDS: 0.9 % SODIUM CHLORIDE 1000ML 500 ML IV (09:26)
--- NOTE | 2024-07-31 09:28 | HMH.OTEV ---
OT Inpatient Evaluation Rehab OT IP Evaluation Start: 07/30/24 15:24 Freq: ONCE Status: Active Protocol: [facility]31[facility]24 09[facility]Rec: 07/31/24 09:28 [id number]) Rehab OT IP Assessment Subjective History Pt oriented x 3 on arrival. Pt agreeable to engage in therapy evaluation. Pt admitted on 07/30/24 due to SOB and GUILLERMO. History and physical: Patient presents for evaluation of dyspnea. Patient has a longstanding history of atrial flutter on Xarelto, latent TB, rheumatoid arthritis, coronary artery disease status post PCI with stent placement in the left main LAD circumflex and ramus most recently and May 2024, peripheral arterial disease, type 2 diabetes mellitus, chronic lymphedema right greater than left, and most recently admitted from 2024 through 07/27/2024 for right lower extremity cellulitis and an NSTEMI. Patient was ultimately discharged after stabilization with continuation of oral Keflex for the cellulitis and outpatient follow-up with cardiology for ischemic heart disease. Patient reports that he is having ongoing dyspnea that predated his admission last week and has continued unabated since discharge. At baseline patient does not wear home oxygen and does not have home oxygen and is not currently requiring it here satting at 100% on room air. He did have an echocardiogram in May that showed an EF of 50% and a emergency department [id number] ultrasound that did not reveal any change in his EF according to the cardiology note. Patient reports that the shortness of breath is only gotten worse since discharge and is short of breath even with light exertion at rest and worse with even trying to walk a few steps. He denies any chest pain fever chills hemoptysis hematochezia melena nausea vomiting diarrhea. Of note his diuresis was increased on discharge to 1 mg of Bumex. Subjective Prior to being in the hospital , pt lived at home with his . Pt is normally independent with all ADLs and IADLs. Pt does not require any type of AE during functional transfers. Pt also still drives. 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 Objective Patient Orientation Person,Place,Birthday Right Upper Extremity Gross ROM WFL Left Upper Extremity Gross ROM WFL Bed Mobility bed mobility-scooting,bed mobility - supine/sit Assist Level Supervision/Stand by Transfer Training Sit/Stand Transfer Assist Level Supervision/Stand by Chair Transfer Ability Supervision/Stand by Chair Transfer Technique Sit to/from Ambulatory Lower Body Dressing Ability Independent Performing Toilet Hygiene Ability Independent Overall Commode/Toilet Transfer Ability Standby Assistance Commode/Toilet Transfer Technique Sit to/from Ambulatory Rehab OT IP prob,goals,plan Problems Date of Evaluation: 07/31/24 Rehab Potential Rehab Potential Innapropriate for Skilled Therapy Discharge Plan OT Discharge Plan Pt appears to be at his baseline with functional transfers and ADL independence . Pt can return home with once he is medically stable per physician. Eval Complexity Eval Charge Codes 17806 - Moderate Complexity PHYSICIAN CERTIFICATION: I certify the specified therapy services for Louisa Alofrd III are required, authorized, and reviewed every 30 days.
--- NOTE | 2024-07-31 10:32 | HMH.PTEV ---
Physical Therapy Evaluation Rehab PT IP Evaluation Start: 07/30/24 15:24 Freq: .once Status: Active Protocol: Document 07/31/24 10:15 WILFRID (Rec: 07/31/24 10:29 WILFRID [id number]) Subjective/History History History Per H&P Mable Alford is a 74- year-old male with medical history significant for CAD with stents who presents with progressive dyspnea on exertion. 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 He states he has been having increasing shortness of breath, and has been the worst this morning. Patient had an NSTEMI during last admission but was rather asymptomatic, plan was to pursue outpatient ischemic workup. Troponin 5.8 at that time. Troponin 0.35 and downtrending this time. Also has a GUILLERMO with creatinine 2.4. Subjective Subjective Prior to being in the hospital , pt lived at home with his and was IND with all mobility w/o AD use. Pt is still driving. Pt has 2 JULIETA home. New diagnosis of cancer in past 12 No months? [facility] How much help from another person do you currently need... Turning from your back to your side None while in a flat bed without using bedrails? Moving from lying on back to sitting on None the side of a flat bed without using bedrails? Moving to and from a bed to a chair ( None including a wheelchair)? Standing up from a chair using your arms None ? (e.g., wheelchair, bedside chair) Walking in hospital room? None Climbing 3-5 steps with a railing? None Mobility Score 24 Mobility Level [facility] Mobility Calculator Mobility 8 Walk 250 feet or more Rehab PT IP Eval Objective Appearance Patient Behavior Appropriate,Cooperative Patient Orientation Person,Place Difficulty following instructions none Speech Pattern Clear Ambulation Patient Able to Ambulate Yes Ambulation Observation IP General Gait Pattern Observation No Deviations/Normal Ambulation Distance (feet) 30 Ambulation Assistive Device None Ambulation Ability Independent Balance Ability to Arise Able, w/o using arms Sitting Balance Steady, safe Standing Balance Narrow stance w/o support Dynamic Sitting Balance Ability Normal Dynamic Standing Balance Ability Good Transfers Bed Transfer Ability Independent Chair Transfer Ability Independent Sit to Stand Bed Transfer Ability Independent Rehab PT IP prob,goals,plan Problems Date of Evaluation: 07/31/24 Rehab Potential Rehab Potential Innapropriate for Skilled Therapy Discharge Plan PT Discharge Plan Pt not appropriate for skilled acute care PT d/t being at baseline with mobility/IND. Pt most appropriate to return home. Eval Complexity Eval Charge Codes 46110 - Moderate Complexity PHYSICIAN CERTIFICATION: I certify the specified therapy services for [place] Alford III are required, authorized, and reviewed every 30 days.
--- NOTE | 2024-07-31 11:53 | EXP.CARD.CON ---
History of Present Illness History of Present Illness Consult date: 07/31/24 Requesting physician: Jer Chacon Consult reason: shortness of breath Chief complaint: SOA History of present illness: This is a 74-year-old white gentleman who presented to the emergency department with complaints of shortness of breath. He has a past medical history of coronary artery disease, atrial fibrillation/flutter, PAD, diabetes, hypertension and hyperlipidemia. He was recently in the hospital and discharged on 07/27/2024 for cellulitis of the right lower extremity and a non-STEMI. He was discharged home on oral antibiotics and this was going to be set up for outpatient ischemic evaluation. However he had worsening shortness of breath since getting out of the hospital. He states that he felt like he was smothering and could hardly talk because he was so short of breath. He denies any chest pain or pressure. He states that his shortness of breath was severe at times at rest and even worse with exertion. The patient called cardiology office yesterday and came to the emergency department because of his significant shortness of breath. He does state that his shortness of breath has improved since being in the hospital but is still present. He states just taking a few steps makes him feel profoundly short of breath. He also reports having these episodes where he feels like he is going to blackout. He states black spots come up in his vision and he feels like he may pass out. He states that this happens while he is using the bathroom and sometimes while he is driving his car. He has not had any syncope but he is scared that it may happen. He still has edema in his bilateral lower extremities, worse on the right than the left. But he states overall this is much better than it was since his previous admission. He denies any fever, chills, nausea, vomiting or diarrhea. At discharge the patient's Bumex was increased. However, he states that he did not lease picker the Bumex from the pharmacy. He had Lasix at home and just doubled up on his home Lasix dose without improvement in his shortness of breath. He did have an GUILLERMO with a creatinine of 2.4 on admission. Troponin remains slightly elevated. [facility] Disclaimer: The information contained in this section may have been updated after the patient was seen, as this information can be updated by other users. Medical History (Updated 07/31/24 @ 12:02 by Nereyda Clark APRN) Cellulitis of right leg Vocal cord edema Ringing in right ear Chronic hoarseness Globus sensation Vertigo Diverticulitis IBS (irritable bowel syndrome) Latent tuberculosis Rheumatoid arthritis Viral gastroenteritis Laceration of face Atypical angina NSTEMI (non-ST elevated myocardial infarction) Atrial flutter Asbestos exposure Tachycardia Abnormal ECG Preoperative testing Episodic confusion Allergic rhinitis Dyspnea on exertion Latent tuberculosis by blood test Restrictive lung disease Left sided abdominal pain Left shoulder strain Left groin pain Claustrophobia Chronic cough Cognitive complaints Edema of both lower extremities Decreased pedal pulses Non-healing ulcer of foot Decreased ROM of right shoulder Right shoulder pain Right shoulder injury Pes planus of both feet Skin lesion Impotence Low back pain Left against medical advice Memory loss Chronic SI joint pain Radiculopathy Neuropathic pain Leg pain, posterior Kidney stone Ingrown toenail of right foot Pre-ulcerative calluses Splinter of toe of left foot Pain of left great toe Cellulitis of great toe of right foot Acute bacterial bronchitis Incurved toenail Diabetes mellitus Onychomycosis Pain in both feet Callus of foot Diabetic foot ulcer Acute febrile illness SIRS (systemic inflammatory response syndrome) Left against medical advice Lower extremity edema Epistaxis Encounter for pre-operative cardiovascular clearance Sepsis Urinary incontinence Weakness Cellulitis, leg Obesity (BMI 30-39.9) Acute delirium Cellulitis Severe sepsis SIRS (systemic inflammatory response syndrome) Physical deconditioning Bacterial pneumonia Hypokalemia Bronchitis due to COVID-19 virus Pneumonia due to COVID-19 virus COVID-19 virus infection Exposure to COVID-19 virus Viral syndrome Acute bronchitis Hematuria Kidney stone on right side Multiple renal cysts Cough Diastolic dysfunction Mental status change resolved HTN (hypertension) Dyspnea SOB (shortness of breath) HHD (hypertensive heart disease) Pre-op evaluation Microalbuminuria Enlarged prostate History of IBS Diabetes Acquired lymphedema Surgical History History of cardiac cath History of total right knee replacement History of rotator cuff surgery History of coronary artery stent placement History of cholecystectomy Hx of total knee arthroplasty Family History Other Cancer Cerebral palsy Dementia Diabetes Social History Smoking Status: Former smoker alcohol intake: never counseling provided: none substance use type: denies use current occupational status: employed and retired Travel in the last 8 weeks?: None household members: spouse housing: house caffeine: Yes Have you lived/traveled outside [place] in past 30 days?: No Contact w/someone who lives/traveled outside US past 30 days?: No Exposure to someone with infectious disease in past 14 days?: No Do you have a fever (greater than 100.4 F or 38 C)?: No Have you tested positive for COVID-19?: No Exposed to someone with COVID-19 in past 14 days?: No Do you have a sore throat?: No Do you have a cough?: No Do you have any weakness?: No Do you have any diarrhea?: No Are you experiencing any unusual bleeding?: No Do you have any muscle aches/pain?: No Do you have any abdominal pain?: No Are you experiencing loss of taste or smell?: No Review of Systems Review of Systems Review of systems:: pertinent systems reviewed and negative unless documented below Constitutional Constitutional: Reports system reviewed and no additional complaints, except as documented, Reports fatigue, Denies fever(s), Reports lethargy and Reports weakness Eyes Eyes: Reports system reviewed and no additional complaints, except as documented ENT Ears, Nose, Mouth, and Throat: Reports system reviewed and no additional complaints, except as documented *Cardiovascular Cardiovascular: Reports system reviewed and no additional complaints, except as documented, Denies chest pain, Reports dyspnea, Reports dyspnea on exertion, Reports orthopnea and Reports paroxysmal nocturnal dyspnea *Respiratory Respiratory: Reports system reviewed and no additional complaints, except as documented, Reports dyspnea and Reports dyspnea on exertion *Gastrointestinal Gastrointestinal: Reports system reviewed and no additional complaints, except as documented *Genitourinary Genitourinary: Reports system reviewed and no additional complaints, except as documented *Musculoskeletal Musculoskeletal: Reports system reviewed and no additional complaints, except as documented Integumentary/Breasts Skin/Breast: Reports system reviewed and no additional complaints, except as documented *Neurologic Neurologic: Reports system reviewed and no additional complaints, except as documented and Reports weakness Psychiatric Psychiatric: Reports system reviewed and no additional complaints, except as documented Endocrine Endocrine: Reports system reviewed and no additional complaints, except as documented and Reports fatigue Hematologic/Lymphatic Hematologic/Lymphatic: Reports system reviewed and no additional complaints, except as documented Allergic/Immunologic Allergic/Immunologic: Reports system reviewed and no additional complaints, except as documented Exam Data for Last 24 hours Vital signs and Labs for Last 24 Hours: Temp Pulse Resp BP Pulse Ox O2 Del Method 97.5 F L 85 18 135/68 96 Room Air 07/31/24 08:00 07/31/24 08:00 07/31/24 08:00 07/31/24 08:00 07/31/24 08:00 07/31/24 09:00 Laboratory Results - last 24 hr 07/30/24 12:05: WBC 7.7, RBC 5.31, Hgb 14.1, Hct 42.5, MCV 80.0, MCH 26.6 L, MCHC 33.2, RDW 14.3, Plt Count 364 D, MPV 10.3, Neut % (Auto) 76.6, Lymph % (Auto) 11.9, [place] % (Auto) 7.6, Eos % (Auto) 1.4, Baso % (Auto) 0.6, Neut # (Auto) 5.9, Lymph # (Auto) 0.9, [place] # (Auto) 0.6, Eos # (Auto) 0.1, Baso # (Auto) 0.1, Sodium 136, Potassium 4.0, Chloride 101, Carbon Dioxide 22, Anion Gap 17.0 H, BUN 34 H, Creatinine 2.40 H, Estimated Creat Clear 35, Estimated GFR 27 L, Est GFR ( Amer) 32 L, Glucose 162 H, Calcium 9.3, Magnesium 1.5 L, Total Bilirubin 1.5 H, AST 46, ALT 48, Alkaline Phosphatase 98, Troponin I 0.35 H, NT-Pro-B Natriuret Pep 1070 H, Total Protein 7.7, Albumin 4.6, Globulin 3.1, Albumin/Globulin Ratio 1.5, Procalcitonin 0.518 07/30/24 15:01: Troponin I 0.29 H 07/30/24 16:50: POC Glucose 123 H 07/30/24 18:56: Troponin I 0.26 H 07/30/24 20:59: POC Glucose 168 H 07/31/24 05:25: WBC 4.4 L D, RBC 4.53 L, Hgb 11.9 L D, Hct 36.0 L, MCV 79.5 L, MCH 26.7 L, MCHC 33.6, RDW 14.3, Plt Count 273, MPV 10.0, Neut % (Auto) 66.6, Lymph % (Auto) 15.5, [place] % (Auto) 10.4 H, Eos % (Auto) 4.3, Baso % (Auto) 0.9, Neut # (Auto) 3.0, Lymph # (Auto) 0.7, [place] # (Auto) 0.5, Eos # (Auto) 0.2, Baso # (Auto) 0.0, Sodium 133 L, Potassium 3.3 L, Chloride 104, Carbon Dioxide 23, Anion Gap 9.3, BUN 37 H, Creatinine 2.10 H, Estimated Creat Clear 40, Estimated GFR 31 L, Est GFR ( Amer) 38 L, Glucose 118 H D, Calcium 8.6, Magnesium 2.6 H D, Total Bilirubin 1.2, AST 33 D, ALT 30 D, Alkaline Phosphatase 77, Total Protein 6.3, Albumin 3.7 D, Globulin 2.6, Albumin/Globulin Ratio 1.4 07/31/24 05:46: POC Glucose 124 H I & O for Last 24 hours: Intake & Output 07/28/24 07/29/24 07/30/24 07/31/24 23:59 23:59 23:59 23:59 Intake Total 480 / 1180 940 / 940 Output Total 0 / 0 Balance 480 / 1180 940 / 940 Weight 196 lb 198 lb 2 oz Constitutional Constitutional: no acute distress and average body habitus *Routine HEENT Exam Head: Present normocephalic and atraumatic ENT: Present mucous membranes moist *Routine Neck Exam Neck: Present supple, full ROM and normal carotid upstroke; Absent JVD, carotid bruit or lymphadenopathy *Routine Respiratory Exam Respiratory: Present CTA bilaterally, normal respiratory effort, able to speak in complete sentences and symmetric chest movement *Routine Cardiovascular Exam Cardiovascular: Present RRR, Normal S1 and Normal S2; Absent murmur or gallop *Routine Abdominal Exam Abdominal: Present soft and normoactive bowel sounds; Absent tenderness, distended or organomegaly *Routine Extremities Exam Extremities: Present edema (Bilateral lymphedema, worse on the right than the left), full ROM, pulses intact and normal capillary refill; Absent cyanosis or clubbing *Routine Skin Exam Skin: Present intact, erythema (Right lower extremity) and warm *Routine Neurological Exam Neurological: Present alert, oriented X3 and CN II-XII intact; Absent sensory deficit or motor deficit Routine Psychiatric Exam Psychiatric: Present normal affect Meds Home Medications and Allergies Home Medications ?Medication ?Instructions ?Recorded ?Confirmed ?Type rivaroxaban 15 mg tablet (Xarelto) 15 mg PO QPMWITHMEAL 03/05/24 07/30/24 History tamsulosin 0.4 mg capsule 0.4 mg PO DAILY 03/05/24 07/30/24 History tramadol 50 mg tablet 50 mg PO TID 03/15/24 07/30/24 History metformin 1,000 mg tablet 1,000 mg PO BID #60 tabs 05/29/24 07/30/24 Rx atorvastatin 40 mg tablet 40 mg PO HS 30 days #90 tabs 06/25/24 07/30/24 Rx tirzepatide 5 mg/0.5 mL 5 mg (0.5 mL) SQ WEEKLY 90 days 06/28/24 07/30/24 Rx subcutaneous pen injector #6.5 mL (Mckayla) clopidogrel 75 mg tablet 75 mg PO DAILY 07/24/24 07/30/24 History diclofenac sodium 1 % topical gel 4 g topical QIDP PRN CHRONIC PAIN 07/24/24 07/30/24 History lidocaine 5 % topical ointment 1 applic topical BIDP PRN Mild 07/24/24 07/30/24 History Pain (Scale Score 1-4) bumetanide 1 mg tablet 1 mg PO DAILY #30 tabs 07/27/24 07/30/24 Rx metoprolol succinate 50 mg 50 mg PO DAILY 30 days #30 tabs 07/27/24 07/30/24 Rx tablet,extended release 24 hr (Toprol XL) omeprazole 40 mg capsule,delayed 40 mg PO DAILY 07/30/24 07/30/24 History release New Prescriptions to Start Prescriptions: Allergies Allergy/AdvReac Type Severity Reaction Status Date / Time Penicillins (PENICILLINS) Allergy Unknown I-ITCHING Verified 07/31/24 08:43 Assessment and Plan *Assessment and plan (1) Elevated troponin: Status: Acute Category: Medical Code(s): R79.89 - Other specified abnormal findings of blood chemistry (2) Elevated brain natriuretic peptide (BNP) level: Status: Acute Category: Medical Code(s): R79.89 - Other specified abnormal findings of blood chemistry (3) Acute nontraumatic kidney injury: Status: Acute Category: Medical Code(s): N17.9 - Acute kidney failure, unspecified (4) Paroxysmal atrial fibrillation: Status: Acute Category: Medical Code(s): I48.0 - Paroxysmal atrial fibrillation (5) CAD (coronary artery disease): Status: Chronic Qualifiers: Associated angina: without angina Coronary Disease-Associated Artery/Lesion type: [place] artery [place] vs. transplanted heart: [place] heart Qualified Code(s): I25.10 - Atherosclerotic heart disease of [place] coronary artery without angina pectoris Category: Medical Code(s): I25.10 - Atherosclerotic heart disease of [place] coronary artery without angina pectoris (6) HLD (hyperlipidemia): Status: Chronic Qualifiers: Hyperlipidemia type: mixed hyperlipidemia Qualified Code(s): E78.2 - Mixed hyperlipidemia Category: Medical Code(s): E78.5 - Hyperlipidemia, unspecified (7) HTN (hypertension): Status: Acute Qualifiers: Hypertension type: essential hypertension Qualified Code(s): I10 - Essential (primary) hypertension Category: Medical Code(s): I10 - Essential (primary) hypertension (8) Iron deficiency anemia: Status: Chronic Qualifiers: Iron deficiency anemia type: unspecified iron deficiency Qualified Code(s): D50.9 - Iron deficiency anemia, unspecified Category: Medical Code(s): D50.9 - Iron deficiency anemia, unspecified (9) Lymphedema of both lower extremities: Status: Acute Category: Medical Code(s): I89.0 - Lymphedema, not elsewhere classified (10) Peripheral artery disease: Status: Chronic Category: Medical Code(s): I73.9 - Peripheral vascular disease, unspecified (11) Cellulitis of right leg: Status: Acute Category: Medical Code(s): L03.115 - Cellulitis of right lower limb Plan Plan: 1. The patient presented to the emergency department with shortness of breath. He did have an elevated BNP and his troponin remains elevated. Last week the patient was hospitalized with a significantly elevated troponin. He is continued to have symptoms. The patient will need to undergo a left cardiac catheterization to evaluate his coronary artery disease due to his atypical angina and elevated troponin consistent with a non-STEMI. However due to his GUILLERMO his left cardiac catheterization will have to be postponed until tomorrow. Continue Plavix. 2. The patient will get a 500 mL fluid balance today for his GUILLERMO and creatinine of 2.1 to hopefully get it closer to his baseline of 0.9. 3. Will make the patient n.p.o. after midnight tonight in preparation for possible left cardiac catheterization tomorrow due to his non-STEMI. 4. The patient has been educated the risk and benefits of proceeding with left cardiac catheterization. The patient verbalizes understanding and is agreeable in proceeding with the procedure. 5. Will also proceed with right cardiac catheterization at the same time of his left cardiac catheterization to evaluate his intracardial pressures due to his shortness of breath, elevated BNP and suspicion of pulmonary hypertension. 6. The patient has been educated the risk and benefits of proceeding with right cardiac catheterization. The patient verbalized understanding and is agreeable in proceeding with the procedure. 7. His blood pressure is well-controlled. Continue Toprol. 8. The patient does have a history of paroxysmal atrial fibrillation/flutter. He is on Xarelto for long-term anticoagulation. 9. His LDL goal is less than 55. His LDL was less than 30 in May 2024. He is on a statin. 10. The patient does have cellulitis of his right lower extremity. Will defer this to the hospitalist. 11. The patient does have chronic lymphedema which he states is improved overall. 12. Further recommendations will be made pending the patient's response to treatment and results of right and left cardiac catheterization tomorrow. Thank you for the opportunity to help participate in the care of this patient. All recommendations and orders are per Dr. Mckeon.
[2024-07-31 12:29] LABS: Chloride 105 mmol/L (98-107); Sodium 134 mmol/L (136-145)
[2024-07-31 12:30] LABS: Potassium 3.6 mmoL/L (3.5-5.1)
[2024-07-31 12:32] LABS: Blood Urea Nitrogen 35 mg/dl (9-20); Creatinine Clearance Estimated 47 mL/min (50-200); Estimated Glomerular Filt Rate 37 ml/min (>60); GFR (African American) 45 ML/MIN (>60)
[2024-07-31 12:33] LABS: Anion Gap 9.6 mEq/L (5-15); Calcium 8.4 mg/dl (8.4-10.2); Carbon Dioxide 23 mmol/L (22.0-30.0); Glucose 157 mg/dl (74-100)
[2024-07-31 15:27] LABS: POC Glucose,Bedside 153 (70-110)
[2024-07-31 15:47] VITALS: BP 130/70; PULSE 82; RESP 16; TEMP 36.9; O2SAT 97
[2024-07-31] MEDS: RIVAROXABAN 15MG TABLET 15 MG PO (17:51)
--- NOTE | 2024-07-31 17:55 | PC.NURSE ---
aox4, tolerating room air. heart cath on hold r/t kidney function today.
[2024-07-31 20:00] VITALS: BP 120/69; PULSE 72; RESP 16; TEMP 36.6; O2SAT 96; O2SAT 99
[2024-07-31 20:19] LABS: POC Glucose,Bedside 138 (70-110)
[2024-07-31] MEDS: PANTOPRAZOLE 40MG TABLET 40 MG PO (20:54)
[2024-07-31] MEDS: ATORVASTATIN 40MG TABLET 40 MG PO (20:54)
[2024-07-31] MEDS: TAMSULOSIN 0.4MG CAPSULE 0.4 MG PO (20:54)
--- NOTE | 2024-07-31 20:58 | P.PN_ITS ---
Subjective *Date: 08/25/24 *Time: 12:51 Interval history: Patient feeling well today, [facility] in the morning. Follow-up carotid ultrasound, vestibular therapy with PT. Exam Data for Last 24 hours Vital signs and Labs for Last 24 Hours: Temp Pulse Resp BP Pulse Ox O2 Del Method 98.5 F 82 16 130/70 97 Room Air 07/31/24 15:47 07/31/24 15:47 07/31/24 15:47 07/31/24 15:47 07/31/24 15:47 07/31/24 18:21 Laboratory Results - last 24 hr 07/30/24 20:59: POC Glucose 168 H 07/31/24 05:25: WBC 4.4 L D, RBC 4.53 L, Hgb 11.9 L D, Hct 36.0 L, MCV 79.5 L, MCH 26.7 L, MCHC 33.6, RDW 14.3, Plt Count 273, MPV 10.0, Neut % (Auto) 66.6, Lymph % (Auto) 15.5, [place] % (Auto) 10.4 H, Eos % (Auto) 4.3, Baso % (Auto) 0.9, Neut # (Auto) 3.0, Lymph # (Auto) 0.7, [place] # (Auto) 0.5, Eos # (Auto) 0.2, Baso # (Auto) 0.0, Sodium 133 L, Potassium 3.3 L, Chloride 104, Carbon Dioxide 23, Anion Gap 9.3, BUN 37 H, Creatinine 2.10 H, Estimated Creat Clear 40, Estimated GFR 31 L, Est GFR ( Amer) 38 L, Glucose 118 H D, Calcium 8.6, Magnesium 2.6 H D, Total Bilirubin 1.2, AST 33 D, ALT 30 D, Alkaline Phosphatase 77, Total Protein 6.3, Albumin 3.7 D, Globulin 2.6, Albumin/Globulin Ratio 1.4 07/31/24 05:46: POC Glucose 124 H 07/31/24 11:46: POC Glucose 153 H 07/31/24 12:15: Sodium 134 L, Potassium 3.6, Chloride 105, Carbon Dioxide 23, Anion Gap 9.6, BUN 35 H, Creatinine 1.80 H, Estimated Creat Clear 47, Estimated GFR 37 L, Est GFR ( Amer) 45 L, Glucose 157 H D, Calcium 8.4 07/31/24 20:11: POC Glucose 138 H I & O for Last 24 hours: Intake & Output 07/28/24 07/29/24 07/30/24 07/31/24 23:59 23:59 23:59 23:59 Intake Total 480 / 1180 1660 / 1660 Output Total 0 / 0 Balance 480 / 1180 1660 / 1660 Weight 88.904 kg 89.868 kg Constitutional Constitutional: no acute distress *Routine HEENT Exam Head: Present normocephalic Eye: Present EOMI and PERRL ENT: Present mucous membranes moist *Routine Neck Exam Neck: Present supple; Absent lymphadenopathy *Routine Respiratory Exam Respiratory: Present CTA bilaterally *Routine Cardiovascular Exam Cardiovascular: Present RRR *Routine Abdominal Exam Abdominal: Present soft and normoactive bowel sounds; Absent tenderness *Routine Extremities Exam Extremities: Absent cyanosis, clubbing or edema *Routine Skin Exam Skin: Present warm; Absent rash *Routine Neurological Exam Neurological: Present alert and oriented X3 Assessment and Plan *Assessment and plan (1) Dyspnea: Status: Acute Qualifiers: Dyspnea type: shortness of breath Qualified Code(s): R06.02 - Shortness of breath Category: Medical Code(s): R06.00 - Dyspnea, unspecified Plan Mable Alford is a 74-year-old male with medical history significant for CAD with stents who presents with progressive dyspnea on exertion. He states he was doing since his last discharge about 3 days ago, however did not potato picker his Bumex but rather increased his Lasix to 40 mg daily. He states he has been having increasing shortness of breath, and has been the worst this morning. Patient had an NSTEMI during last admission but was rather asymptomatic, plan was to pursue outpatient ischemic workup. Troponin 5.8 at that time. Troponin 0.35 and downtrending this time. Also has a GUILLERMO with creatinine 2.4. Case discussed with ED provider and she was made to admit patient for GUILLERMO, NSTEMI, shortness of breath. #Shortness of breath #CAD with stents #NSTEMI likely type II #GUILLERMO ? Progressive shortness of breath, though unremarkable workup in the ED. Downtrending troponin since last admission without acute ischemic EKG changes. ? Initial creatinine 2.4, was 1.1 just 3 days ago. Patient has increased his Lasix to 40 mg daily. Patient appears dry on exam. ? It is possible that hypovolemia likely contributed to shortness of breath, though patient does have coronary disease. CXR without acute findings. ? Creatinine improved to 1.8 this afternoon after another 500 mL bolus. Will administer another 500 mL bolus. ? [facility] rescheduled for tomorrow morning due to GUILLERMO. ? Cardiology consulted, pending further recommendations. ? Continue metoprolol succinate 75 mg, Plavix 75 mg, atorvastatin 40 mg. #A-fib ? Continue home metoprolol, hold off on Xarelto until [facility] tomorrow. #Dizziness #Lightheadedness ? Patient endorses several month onset of dizziness, and occasional episodes of presyncope. He also states this happens with sudden head movements suggesting v ertigo. ? Follow-up carotid ultrasound given strong ASCVD history. Head CT normal. TSH normal. #Right lower extremity lymphedema #Right lower extremity venous stasis dermatitis ? Continue conservative therapy with leg elevation, which has improved dermatitis today. ? Continue lymphedema treatment outpatient. #Type 2 diabetes ? Hemoglobin A1c 7.2. On metformin. ? ACHS glucose checks, LDSSI. #GERD ? Continue home PPI. #BPH ? Continue home tamsulosin. Full code DVT prophylaxis: Lovenox 40 mg
[2024-07-31] MEDS: 0.9 % SODIUM CHLORIDE 1000ML 500 ML 250 ML IV (21:40)
[2024-08-01] VITALS (14 sets, daily range): BP systolic 100–159; BP diastolic 47–88; PULSE 60–91; RESP 15–18; TEMP 36.6–36.7; O2SAT 93–100; BMI 29.7
[2024-08-01] MEDS: humaLOG 100 UNITS/ML 10ML VIAL (SSI) SUBCUT (05:14)
[2024-08-01 05:16] LABS: POC Glucose,Bedside 171 (70-110)
--- NOTE | 2024-08-01 06:00 | CA_ITS ---
FINAL REPORT TECHNIQUE: Salazar scale, color and spectral doppler images of the bilateral carotid arteries were obtained. CLINICAL HISTORY: Dizziness COMPARISON: None FINDINGS: Peak systolic velocity in the right internal carotid artery is 104 cm/sec. The internal carotid to common carotid artery ratio is 1.1. There is no significant carotid artery stenosis and mild to moderate plaque formation. The right vertebral artery is normal in direction. Peak systolic velocity in the left internal carotid artery is 49 cm/sec. The internal carotid to common carotid artery ratio is 0.6. There is no significant carotid artery stenosis and mild plaque formation. The left vertebral artery is normal in direction. IMPRESSION: No ultrasound evidence of hemodynamically significant carotid artery stenosis. Normal peak systolic velocities and normal internal to common carotid artery ratios bilaterally. However, visually, there appears to be stenosis particularly in the right carotid bulb and proximal internal carotid artery slightly out of proportion to the velocities in that region. Would consider CTA of the cervical vessels for further evaluation. Reviewed, Interpreted and Dictated by Esther Mcclain MD Transcribed by Audrey Hinson Authenticated and [facility]
[2024-08-01 06:14] LABS: Basophils % 0.5 % (0.1-2.0); Eosinophils # 0.1 Kmm3 (0.0-0.4); Eosinophils % 1.7 % (0.1-12.0); Hematocrit 35.7 % (42.0-52.0); Hemoglobin 11.9 g/dL (14.1-18.0); Immature Granulocytes # 0.06 10^3uL; Lymphocytes # 0.7 K/mm3 (0.7-4.5); Lymphocytes % 11.7 % (10-50); Mean Corpuscular HGB Conc 33.3 g/dL (31.8-35.4); Mean Corpuscular Hemoglobin 26.6 pg (27.0-31.2); Mean Corpuscular Volume 79.7 fl (80-94); Monocytes # 0.5 K/mm3 (0.1-1.0); Monocytes % 7.9 % (1.7-9.3); Neutrophils # 4.4 K/mm3 (1.8-7.8); Neutrophils % 77.2 % (37.0-80.0); Nucleated Red Blood Cells # 0 10^3/uL; Nucleated Red Blood Cells % 0 %; Platelet Count 301 K/mm3 (142-424); Red Blood Count 4.48 M/mm3 (4.60-6.20); Red Cell Distribution Width 14.1 % (11.5-17.5); Red Cell Distribution Width-SD 40.9 fL; White Blood Count 5.7 K/mm3 (4.8-10.8)
[2024-08-01 06:27] LABS: Alanine Aminotransferase 29 U/L (12-78); Albumin Level 3.6 g/dl (3.5-5.0); Albumin/Globulin Ratio 1.4 (1.1-1.8); Alkaline Phosphatase 74 U/L (38-126); Anion Gap 10.8 mEq/L (5-15); Aspartate Amino Transferase 38 U/L (17-59); Blood Urea Nitrogen 27 mg/dl (9-20); Calcium 8.8 mg/dl (8.4-10.2); Carbon Dioxide 21 mmol/L (22.0-30.0); Chloride 109 mmol/L (98-107); Creatinine Clearance Estimated 66 mL/min (50-200); Estimated Glomerular Filt Rate 54 ml/min (>60); GFR (African American) 66 ML/MIN (>60); Globulin 2.6 g/dL (1.3-3.2); Glucose 152 mg/dl (74-100); Magnesium 2.1 mg/dl (1.6-2.3); Potassium 3.8 mmoL/L (3.5-5.1); Sodium 137 mmol/L (136-145); Total Protein,Serum 6.2 g/dl (6.3-8.2)
--- NOTE | 2024-08-01 06:27 | PC.NURSE ---
Pt is A&Ox4, tolerating RA well. Pt denies pain and needs when asked. Pt was placed on personnel monitor with a NSR. Pt had had no acute changes to note this shift.
[2024-08-01 07:28] LABS: Vitamin B12 680 pg/mL (239-931)
[2024-08-01 08:10] LABS: Folate 6.96 ng/mL
[2024-08-01] MEDS: CLOPIDOGREL 75MG TAB 75 MG PO (08:32)
[2024-08-01] MEDS: METOPROLOL SUCCINATE XL 50MG TABLET 50 MG PO (08:32)
--- NOTE | 2024-08-01 09:57 | IR_ITS ---
APPROVED REPORT Patient Location: Inpatient Vehicle Detailer: KIRTI Jernigan RT (R) PROCEDURES Right heart catheterization Left heart catheterization Left ventriculogram Selective coronary angiogram INDICATION Known coronary artery disease, Recent non-ST elevation myocardial infarction, Recurrent admission for symptoms consistent with acute coronary syndrome, Informed consent was obtained prior to the procedure. COMPLICATIONS NONE Estimated Blood Loss: LESS THAN 10 ML TECHNIQUE One percent lidocaine was used to anesthetize the right anterior aspect of the neck. A salad maker needle was used to identify the right internal jugular vein. Following this a larger cannulation needle was used to cannulate the right internal jugular vein and a wire was passed into the vein. Prior to the 7 Swazi sheath being inserted the wire was confirmed under fluoroscopic guidance to be in the inferior vena cava. A 7 Swazi sheath was introduced and a Wildrose-Shasha catheter was floated using hemodynamic waveforms in the pulmonary artery, right ventricle , and right atrium. Saturations were obtained in the pulmonary artery and the right atrium. At the end of the procedure the patient was transferred to the postop holding area in stable condition for sheath removal. One percent lidocaine used to anesthetize the right anterior aspect of the wrist. The right radial artery was accessed via the Seldinger technique. A 6 Swazi sheath was placed in the right radial artery. 2.5 mg of Verapamil, 800 mcg of nitroglycerin, 1mg Lidocaine and 5000 U Heparin were given through the arterial sheath. The 6 Swazi JL 3 catheter was also used to perform left heart catheterization, left ventriculogram and selective coronary angiogram. At the end of the procedure the sheath was removed good hemostasis was achieved using Traclet band, patient was transferred to the postop holding area in stable condition. ANGIOGRAPHIC RESULTS The left main artery Has a stent in the proximal segment which is widely patent with excellent proximal transitioning and extension into the LAD and circumflex artery all thank you The left anterior descending artery Has a stent originating off the left main artery which is widely patent with minimal in-stent restenosis and excellent distal transitioning the remaining LAD is widely patent The circumflex artery Large and dominant has a stent originating off the left main artery the stent is widely patent with excellent distal transitioning with no angiographic evidence of in-stent restenosis. There is a medium size ramus intermedius which has an ostial greater than 90% in-stent restenotic lesion which is now appeared when previous cardiac catheterization demonstrated it was occluded The right coronary artery Vestigial normal The DALTON ventriculogram reveals Normal 65% The left ventricular end-diastolic pressure 10 to 12 mmHg Right atrial pressure 7 mmHg Pulmonary artery pressure 28/12 mmHg Pulmonary artery occlusion pressure 12 mmHg Right atrial saturation 69% Pulmonary artery saturation 71% Aortic saturation 97% Hemoglobin 11.9 Cardiac output 6.3 IMPRESSION Patent coronary arteries as described above Normal cardiopulmonary filling pressures Subtotally occluded ramus intermedius which is best managed medically given the juxtaposition to the proximal dominant circumflex artery and LAD. It was reasonable to revascularize this once however repeat revascularizations of this vessel is ill-advised Normal ejection fraction PLAN 1. Evaluation of noncardiac symptoms 2. Continue risk factor modification Electronically signed by : Shay Biggs MD 08/01/2024 12:39:37
--- NOTE | 2024-08-01 10:47 | EXP.CARD.PN ---
Subjective Subjective Date: 08/01/24 Time: 09:00 Principal diagnosis: angina, elevated troponin Interval history: This is a 74-year-old gentleman who was admitted to the hospital with shortness of breath. He has a elevated troponin consistent with a non-STEMI. He was previously admitted last week and had an elevated troponin as well and his symptoms continued to progress. Due to the patient's atypical angina and elevated troponin he is scheduled to undergo left and right cardiac catheterization today to evaluate for coronary artery disease and to evaluate his intracardial pressures. This morning he states that he is still really short of breath with exertion. He states that his shortness of breath at rest has improved. He states that his shortness of breath is worse with exertion and it does improve with rest. It is associated with bilateral lower extremity edema but this is much improved. He denies any chest pain or pressure. He states he still feels like he is having episodes where he feels like he could pass out and gets these black spots in his vision. He denies any fever, chills, nausea, vomiting. He is complaining of some diarrhea intermittently. Exam Data for Last 24 hours Vital signs and Labs for Last 24 Hours: Temp Pulse Resp BP Pulse Ox O2 Del Method O2 Flow Rate 98 F 79 16 126/80 98 Room Air 1.5 08/01/24 08:00 08/01/24 08:00 08/01/24 08:00 08/01/24 08:00 08/01/24 08:00 08/01/24 09:25 07/31/24 20:00 Laboratory Results - last 24 hr 07/31/24 11:46: POC Glucose 153 H 07/31/24 12:15: Sodium 134 L, Potassium 3.6, Chloride 105, Carbon Dioxide 23, Anion Gap 9.6, BUN 35 H, Creatinine 1.80 H, Estimated Creat Clear 47, Estimated GFR 37 L, Est GFR ( Amer) 45 L, Glucose 157 H D, Calcium 8.4 07/31/24 20:11: POC Glucose 138 H 08/01/24 05:09: POC Glucose 171 H 08/01/24 05:26: WBC 5.7 D, RBC 4.48 L, Hgb 11.9 L, Hct 35.7 L, MCV 79.7 L, MCH 26.6 L, MCHC 33.3, RDW 14.1, Plt Count 301, MPV 10.0, Neut % (Auto) 77.2, Lymph % (Auto) 11.7, [place] % (Auto) 7.9, Eos % (Auto) 1.7, Baso % (Auto) 0.5, Neut # (Auto) 4.4, Lymph # (Auto) 0.7, [place] # (Auto) 0.5, Eos # (Auto) 0.1, Baso # (Auto) 0.0, Sodium 137, Potassium 3.8, Chloride 109 H, Carbon Dioxide 21 L, Anion Gap 10.8, BUN 27 H, Creatinine 1.30 H D, Estimated Creat Clear 66, Estimated GFR 54 L, Est GFR ( Amer) 66 D, Glucose 152 H, Calcium 8.8, Magnesium 2.1 D, Total Bilirubin 1.0, AST 38, ALT 29, Alkaline Phosphatase 74, Total Protein 6.2 L, Albumin 3.6, Globulin 2.6, Albumin/Globulin Ratio 1.4, Vitamin B12 680, Folate 6.96 I & O for Last 24 hours: Intake & Output 07/29/24 07/30/24 07/31/24 08/01/24 23:59 23:59 23:59 23:59 Intake Total 480 / 1180 1660 / 2520 860 / 860 Output Total 0 / 0 0 / 0 Balance 480 / 1180 1660 / 2520 860 / 860 Weight 196 lb 198 lb 2 oz 201 lb Constitutional Constitutional: no acute distress and average body habitus *Routine HEENT Exam Head: Present normocephalic and atraumatic ENT: Present mucous membranes moist *Routine Neck Exam Neck: Present supple, full ROM and normal carotid upstroke; Absent JVD, carotid bruit or lymphadenopathy *Routine Respiratory Exam Respiratory: Present CTA bilaterally, normal respiratory effort, able to speak in complete sentences and symmetric chest movement *Routine Cardiovascular Exam Cardiovascular: Present RRR, Normal S1 and Normal S2; Absent murmur or gallop *Routine Abdominal Exam Abdominal: Present soft and normoactive bowel sounds; Absent tenderness, distended or organomegaly *Routine Extremities Exam Extremities: Present edema (Bilateral lymphedema, worse on the right than the left), full ROM, pulses intact and normal capillary refill; Absent cyanosis or clubbing *Routine Skin Exam Skin: Present intact, erythema (Right lower extremity) and warm *Routine Neurological Exam Neurological: Present alert, oriented X3 and CN II-XII intact; Absent sensory deficit or motor deficit Routine Psychiatric Exam Psychiatric: Present normal affect Progress Note: A&P Assessment and plan (1) Atypical angina: Status: Acute (2) Elevated troponin: Status: Acute (3) Elevated brain natriuretic peptide (BNP) level: Status: Acute (4) CAD (coronary artery disease): Status: Chronic (5) Acute nontraumatic kidney injury: Status: Acute (6) Paroxysmal atrial fibrillation: Status: Acute (7) HLD (hyperlipidemia): Status: Chronic (8) HTN (hypertension): Status: Acute (9) Iron deficiency anemia: Status: Chronic (10) Lymphedema of both lower extremities: Status: Acute (11) Peripheral artery disease: Status: Chronic (12) Cellulitis of right leg: Status: Acute (13) T2DM (type 2 diabetes mellitus): Status: Chronic Assessment and Plan Assessment and Plan for All Diagnoses:: Plan: 1. The patient presented to the emergency department with shortness of breath. He did have an elevated BNP and his troponin remains elevated. Last week the patient was hospitalized with a significantly elevated troponin. He has continued to have symptoms which have significantly worsened. Will plan to proceed with left cardiac catheterization today to evaluate his coronary artery disease due to his atypical angina, known CAD and elevated troponin consistent with a non-STEMI. 2. At the time of his left cardiac catheterization we will also proceed with right cardiac catheterization to evaluate his intracardial pressures due to shortness of breath, elevated BNP and suspicion for pulmonary hypertension. 3. The patient has been educated the risk and benefits of proceeding with left and right cardiac catheterizations. The patient verbalizes understanding and is agreeable in proceeding with the procedures. 4. The patient will be n.p.o. preparation for right and left cardiac catheterization today. 5. The patient did have an GUILLERMO on admission with a creatinine of 2.1. It is down to 1.3 today. 6. CAD is present. Continue Plavix. 7. His blood pressure is well-controlled. 8. His LDL goal is less than 55. His LDL was less than 30 in May 2024. He is on a statin. 9. The patient does have a history of paroxysmal atrial fibrillation/flutter. He is currently in sinus rhythm. He is on Xarelto for long-term anticoagulation. 10. The patient does have cellulitis of his right lower extremity. Will defer this to the hospitalist. 11. The patient does have chronic lymphedema which he states is improved overall. 12. Further recommendations will be made pending the patient's response to treatment and results of right and left cardiac catheterization today. Thank you for the opportunity to help participate in the care of this patient. All recommendations and orders are per Dr. Mckeon. [facility] shows: The left main artery Has a stent in the proximal segment which is widely patent with excellent proximal transitioning and extension into the LAD and circumflex artery all thank you The left anterior descending artery Has a stent originating off the left main artery which is widely patent with minimal in-stent restenosis and excellent distal transitioning the remaining LAD is widely patent The circumflex artery Large and dominant has a stent originating off the left main artery the stent is widely patent with excellent distal transitioning with no angiographic evidence of in-stent restenosis. There is a medium size ramus intermedius which has an ostial greater than 90% in-stent restenotic lesion which is now appeared when previous cardiac catheterization demonstrated it was occluded The right coronary artery Vestigial normal The DALTON ventriculogram reveals Normal 65% The left ventricular end-diastolic pressure 10 to 12 mmHg Right atrial pressure 7 mmHg Pulmonary artery pressure 28/12 mmHg Pulmonary artery occlusion pressure 12 mmHg Right atrial saturation 69% Pulmonary artery saturation 71% Aortic saturation 97% Hemoglobin 11.9 Cardiac output 6.3 IMPRESSION Patent coronary arteries as described above Normal cardiopulmonary filling pressures Subtotally occluded ramus intermedius which is best managed medically given the juxtaposition to the proximal dominant circumflex artery and LAD. It was reasonable to revascularize this once however repeat revascularizations of this vessel is ill-advised Normal ejection fraction PLAN 1. Evaluation of noncardiac symptoms 2. Continue risk factor modification CAD is patent. Intracardial pressures are essentially normal. Evaluation for noncardiac symptoms. No further recommendations at this time from a cardiac standpoint. The patient can be discharged home today from a cardiac standpoint will follow-up in cardiology clinic in 1 to 2 weeks. He can be discharged on the following cardiac medications: Lipitor 40 mg p.o. nightly, Plavix 75 mg daily, metoprolol XL 50 mg p.o. daily, Xarelto 15 mg p.o. daily. Discontinue diuretics.
--- NOTE | 2024-08-01 11:10 | PC.NURSE ---
pt taken down for heart cath.
[2024-08-01] MEDS: 0.9 % SODIUM CHLORIDE 500 ML 25 ML IV (11:23)
[2024-08-01] MEDS: HEPARIN 1,000 UNITS/ML 10ML VIAL (CATH LAB) 5000 UNIT IV (11:24)
[2024-08-01] MEDS: diphenhydrAMINE 50MG/ML VIAL 50 MG IV (11:24)
[2024-08-01] MEDS: HEPARIN 1,000 UNITS/500ML NS (CATH LAB) 3000 UNIT IV (11:24)
[2024-08-01] MEDS: NITROGLYCERIN 800MCG/8ML SYR (CATH LAB) 800 MCG IA (11:24)
[2024-08-01] MEDS: LIDOCAINE 1% 10ML MDV 10 ML IJ (11:24)
[2024-08-01] MEDS: VERAPAMIL 2.5MG/ML 2ML VIAL 2.5 MG IV (11:25)
[2024-08-01] MEDS: MIDAZOLAM HCL 1MG/ML 5ML VIAL 1 MG IV (12:20)
[2024-08-01] MEDS: FENTANYL 100MCG/2ML VIAL 50 MCG IV (12:21)
[2024-08-01] MEDS: IOPAMIDOL-370 (76%);100ML BOTTLE 40 ML IV (13:11)
[2024-08-01 13:13] LABS: CATHL Arterial O2 SAT 71.8 % (90-100)
--- NOTE | 2024-08-01 13:25 | PC.NURSE ---
back from senior laboratory technician [id number]
[2024-08-01 13:40] LABS: POC Glucose,Bedside 114 (70-110)
--- NOTE | 2024-08-01 13:41 | EXP.DC.SUM ---
General Admission date:: 07/30/24 HPI HPI HPI: Mable Alford is a 74-year-old male with medical history significant for CAD with stents who presents with progressive dyspnea on exertion. He states he was doing since his last discharge about 3 days ago, however did not picker his Bumex but rather increased his Lasix to 40 mg daily. He states he has been having increasing shortness of breath, and has been the worst this morning. Patient had an NSTEMI during last admission but was rather asymptomatic, plan was to pursue outpatient ischemic workup. Troponin 5.8 at that time. Troponin 0.35 and downtrending this time. Also has a GUILLERMO with creatinine 2.4. #Shortness of breath #CAD with stents #NSTEMI likely type II #GUILLERMO ? Progressive shortness of breath, though unremarkable workup in the ED. Downtrending troponin since last admission without acute ischemic EKG changes. ? Initial creatinine 2.4, was 1.1 just 3 days ago. Patient has increased his Lasix to 40 mg daily. Patient appears dry on exam. ? It is possible that hypovolemia likely contributed to shortness of breath, though patient does have coronary disease. ? Ordered 500 mL bolus. Follow-up BMP in the morning. ? Cardiology consulted, pending further recommendations. Hospital Course Hospital Course Hospital Course: Mable Alford is a 74-year-old male with medical history significant for CAD with stents who presents with progressive dyspnea on exertion. He states he was doing since his last discharge about 3 days ago, however did not picker his Bumex but rather increased his Lasix to 40 mg daily. He states he has been having increasing shortness of breath, and has been the worst this morning. Patient had an NSTEMI during last admission but was rather asymptomatic, plan was to pursue outpatient ischemic workup. Troponin 5.8 at that time. Troponin 0.35 and downtrending this time. Also has a GUILLERMO with creatinine 2.4. Case discussed with ED provider and she was made to admit patient for GUILLERMO, NSTEMI, shortness of breath. #Shortness of breath #CAD with stents #NSTEMI likely type II #GUILLERMO ? Progressive shortness of breath, though unremarkable workup in the ED. Downtrending troponin since last admission without acute ischemic EKG changes. ? Initial creatinine 2.4, was 1.1 just 3 days ago. Patient has increased his Lasix to 40 mg daily. Patient appears dry on exam. ? It is possible that hypovolemia likely contributed to shortness of breath, though patient does have coronary disease. CXR without acute findings. ? Creatinine improved to 1.3 with IV fluid resuscitation. ? Cardiology consulted, s/p [facility] today without occlusive disease. No stents placed. ? Decreased metoprolol succinate from 75-50 mg due to dizziness, Plavix 75 mg, atorvastatin 40 mg. #A-fib ? Continue metoprolol, Xarelto. Rate controlled. #Dizziness #Lightheadedness ? Patient endorses several month onset of dizziness, and occasional episodes of presyncope. He also states this happens with sudden head movements suggesting vertigo. ? Follow-up carotid ultrasound given strong ASCVD history. - Patient has had chronic dizziness, presyncopal events. Carotid ultrasound is equivocal, recommend CTA neck. Head CT normal. TSH normal. However, patient had contrast from [facility] today. Will follow-up with cardiology for further evaluation management and get a CTA if needed. #Right lower extremity lymphedema #Right lower extremity venous stasis dermatitis ? Continue conservative therapy with leg elevation, which has improved dermatitis today. ? Continue lymphedema treatment outpatient. #Type 2 diabetes ? Hemoglobin A1c 7.2. On metformin. ? ACHS glucose checks, LDSSI. #GERD ? Continue home PPI. #BPH ? Continue home tamsulosin. Full code DVT prophylaxis: Lovenox 40 mg Exam Data for Last 24 hours Vital signs and Labs for Last 24 Hours: Temp Pulse Resp BP Pulse Ox O2 Del Method O2 Flow Rate 98 F 91 H 18 119/67 95 Room Air 1.5 08/01/24 08:00 08/01/24 13:00 08/01/24 13:00 08/01/24 13:00 08/01/24 13:00 08/01/24 13:26 07/31/24 20:00 Laboratory Results - last 24 hr 07/31/24 11:46: POC Glucose 153 H 07/31/24 20:11: POC Glucose 138 H 08/01/24 05:09: POC Glucose 171 H 08/01/24 05:26: WBC 5.7 D, RBC 4.48 L, Hgb 11.9 L, Hct 35.7 L, MCV 79.7 L, MCH 26.6 L, MCHC 33.3, RDW 14.1, Plt Count 301, MPV 10.0, Neut % (Auto) 77.2, Lymph % (Auto) 11.7, [place] % (Auto) 7.9, Eos % (Auto) 1.7, Baso % (Auto) 0.5, Neut # (Auto) 4.4, Lymph # (Auto) 0.7, [place] # (Auto) 0.5, Eos # (Auto) 0.1, Baso # (Auto) 0.0, Sodium 137, Potassium 3.8, Chloride 109 H, Carbon Dioxide 21 L, Anion Gap 10.8, BUN 27 H, Creatinine 1.30 H D, Estimated Creat Clear 66, Estimated GFR 54 L, Est GFR ( Amer) 66 D, Glucose 152 H, Calcium 8.8, Magnesium 2.1 D, Total Bilirubin 1.0, AST 38, ALT 29, Alkaline Phosphatase 74, Total Protein 6.2 L, Albumin 3.6, Globulin 2.6, Albumin/Globulin Ratio 1.4, Vitamin B12 680, Folate 6.96 08/01/24 13:30: POC Glucose 114 H I & O for Last 24 hours: Intake & Output 07/29/24 07/30/24 07/31/24 08/01/24 23:59 23:59 23:59 23:59 Intake Total 480 / 1180 1660 / 2520 860 / 860 Output Total 0 / 0 0 / 0 Balance 480 / 1180 1660 / 2520 860 / 860 Weight 88.904 kg 89.868 kg 91.172 kg Constitutional Constitutional: no acute distress *Routine HEENT Exam Head: Present normocephalic Eye: Present EOMI and PERRL ENT: Present mucous membranes moist *Routine Neck Exam Neck: Present supple; Absent lymphadenopathy *Routine Respiratory Exam Respiratory: Present CTA bilaterally *Routine Cardiovascular Exam Cardiovascular: Present RRR *Routine Abdominal Exam Abdominal: Present soft and normoactive bowel sounds; Absent tenderness *Routine Extremities Exam Extremities: Absent cyanosis, clubbing or edema *Routine Skin Exam Skin: Present warm; Absent rash *Routine Neurological Exam Neurological: Present alert and oriented X3 Results Data Completed and Pending Labs on day of discharge: Labs from last 24 hours 08/01/24 08/01/24 08/01/24 13:30 05:26 05:09 WBC 5.7 D RBC 4.48 L Hgb 11.9 L Hct 35.7 L MCV 79.7 L MCH 26.6 L MCHC 33.3 RDW 14.1 Plt Count 301 MPV 10.0 Neut % (Auto) 77.2 Lymph % (Auto) 11.7 [place] % (Auto) 7.9 Eos % (Auto) 1.7 Baso % (Auto) 0.5 Neut # (Auto) 4.4 Lymph # (Auto) 0.7 [place] # (Auto) 0.5 Eos # (Auto) 0.1 Baso # (Auto) 0.0 Sodium 137 Potassium 3.8 Chloride 109 H Carbon Dioxide 21 L Anion Gap 10.8 BUN 27 H Creatinine 1.30 H D Estimated Creat Clear 66 Estimated GFR 54 L Est GFR ( Amer) 66 D Glucose 152 H POC Glucose 114 H 171 H Calcium 8.8 Magnesium 2.1 D Total Bilirubin 1.0 AST 38 ALT 29 Alkaline Phosphatase 74 Total Protein 6.2 L Albumin 3.6 Globulin 2.6 Albumin/Globulin Ratio 1.4 Vitamin B12 680 Folate 6.96 07/31/24 07/31/24 20:11 11:46 WBC RBC Hgb Hct MCV MCH MCHC RDW Plt Count MPV Neut % (Auto) Lymph % (Auto) [place] % (Auto) Eos % (Auto) Baso % (Auto) Neut # (Auto) Lymph # (Auto) [place] # (Auto) Eos # (Auto) Baso # (Auto) Sodium Potassium Chloride Carbon Dioxide Anion Gap BUN Creatinine Estimated Creat Clear Estimated GFR Est GFR ( Amer) Glucose POC Glucose 138 H 153 H Calcium Magnesium Total Bilirubin AST ALT Alkaline Phosphatase Total Protein Albumin Globulin Albumin/Globulin Ratio Vitamin B12 Folate DS: Diagnosis Discharge Diagnosis (1) Atypical angina: Status: Acute Code(s): I20.89 - Other forms of angina pectoris (2) Elevated troponin: Status: Acute Code(s): R79.89 - Other specified abnormal findings of blood chemistry (3) Elevated brain natriuretic peptide (BNP) level: Status: Acute Code(s): R79.89 - Other specified abnormal findings of blood chemistry (4) CAD (coronary artery disease): Status: Chronic Code(s): I25.10 - Atherosclerotic heart disease of [place] coronary artery without angina pectoris Qualifiers: Associated angina: without angina Coronary Disease-Associated Artery/Lesion type: [place] artery [place] vs. transplanted heart: [place] heart Qualified Code(s): I25.10 - Atherosclerotic heart disease of [place] coronary artery without angina pectoris (5) Acute nontraumatic kidney injury: Status: Acute Code(s): N17.9 - Acute kidney failure, unspecified (6) Paroxysmal atrial fibrillation: Status: Inactive Code(s): I48.0 - Paroxysmal atrial fibrillation (7) HLD (hyperlipidemia): Status: Chronic Code(s): E78.5 - Hyperlipidemia, unspecified Qualifiers: Hyperlipidemia type: mixed hyperlipidemia Qualified Code(s): E78.2 - Mixed hyperlipidemia (8) HTN (hypertension): Status: Acute Code(s): I10 - Essential (primary) hypertension Qualifiers: Hypertension type: essential hypertension Qualified Code(s): I10 - Essential (primary) hypertension (9) Iron deficiency anemia: Status: Chronic Code(s): D50.9 - Iron deficiency anemia, unspecified Qualifiers: Iron deficiency anemia type: unspecified iron deficiency Qualified Code(s): D50.9 - Iron deficiency anemia, unspecified (10) Lymphedema of both lower extremities: Status: Acute Code(s): I89.0 - Lymphedema, not elsewhere classified (11) Peripheral artery disease: Status: Chronic Code(s): I73.9 - Peripheral vascular disease, unspecified (12) Cellulitis of right leg: Status: Acute Code(s): L03.115 - Cellulitis of right lower limb (13) T2DM (type 2 diabetes mellitus): Status: Chronic Code(s): E11.9 - Type 2 diabetes mellitus without complications Qualifiers: Diabetes mellitus complication detail: with other circulatory complications Diabetes mellitus complication status: with circulatory complication Diabetes mellitus fci insulin use: without fci use Qualified Code(s): E11.59 - Type 2 diabetes mellitus with other circulatory complications Meds Home Medications and Allergies Home Medications ?Medication ?Instructions ?Recorded ?Confirmed ?Type rivaroxaban 15 mg tablet (Xarelto) 15 mg PO QPMWITHMEAL 03/05/24 08/15/24 History tamsulosin 0.4 mg capsule 0.4 mg PO DAILY 03/05/24 08/15/24 History tramadol 50 mg tablet 50 mg PO TID 03/15/24 08/15/24 History atorvastatin 40 mg tablet 40 mg PO HS 30 days #90 tabs 06/25/24 08/15/24 Rx clopidogrel 75 mg tablet 75 mg PO DAILY 07/24/24 08/15/24 History diclofenac sodium 1 % topical gel 4 g topical QIDP PRN CHRONIC PAIN 07/24/24 08/15/24 History omeprazole 40 mg capsule,delayed 40 mg PO DAILY 07/30/24 08/15/24 History release metoprolol succinate 25 mg 25 mg PO DAILY #30 tabs 08/01/24 08/15/24 Rx tablet,extended release 24 hr (Toprol XL) folic acid 1 mg tablet 1 mg PO DAILY #90 tabs 08/05/24 08/15/24 Rx metformin 1,000 mg tablet 1,000 mg PO BID #60 tabs 08/06/24 08/15/24 Rx ondansetron HCl 4 mg tablet 4 mg PO Q8H PRN nausea and 08/07/24 08/15/24 Rx vomiting 4 days #30 tabs lidocaine 5 % topical ointment See Rx Instructions .Route 08/14/24 08/15/24 Rx .COMPLEX #70.88 grams colestipol 1 gram tablet 1 g PO BID #180 tabs 08/15/24 08/15/24 Rx cyclobenzaprine 5 mg tablet 5 mg PO TID PRN 08/15/24 08/15/24 History New Prescriptions to Start Prescriptions: folic acid Jer Chacon metoprolol succinate [Toprol XL] Jer Chacon Allergies Allergy/AdvReac Type Severity Reaction Status Date / Time Penicillins (PENICILLINS) Allergy Unknown I-ITCHING Verified 08/15/24 15:27 Discharge Plan Disposition Patient Disposition: Home, Self-Care Condition: Fair Follow up Plan Follow up with: Nereyda Clark APRN [Nurse Practitioner, Cardiology] - 08/08/24 9:15 am Prescriptions/Medication Reconciliation: New metoprolol succinate [Toprol XL] 25 mg tablet extended release 24 hr 25 mg PO DAILY Qty: 30 0RF folic acid 1 mg tablet 1 mg PO DAILY Qty: 90 0RF Continued tramadol 50 mg tablet 50 mg PO TID atorvastatin 40 mg tablet 40 mg PO HS 30 Days Qty: 90 2RF clopidogrel 75 mg tablet 75 mg PO DAILY diclofenac sodium 1 % gel 4 g topical QIDP PRN (Reason: CHRONIC PAIN) Rx Instructions: apply to single, ankle, foot; for foot includes sole/toes/top of foot omeprazole 40 mg capsule,delayed release(DR/EC) 40 mg PO DAILY tamsulosin 0.4 mg capsule 0.4 mg PO DAILY Xarelto 15 mg tablet 15 mg PO QPMWITHMEAL Discontinued bumetanide 1 mg tablet 1 mg PO DAILY Qty: 30 0RF metoprolol succinate [Toprol XL] 50 mg Tablet Extended Release 24 Hr 50 mg PO DAILY 30 Days Qty: 30 0RF No Action lidocaine 5 % ointment See Rx Instructions .ROUTE .COMPLEX Qty: 70.88 2RF Dose Instruction: APPLY TOPICALLY TWICE DAILY NEEDED FOR PAIN Rx Instructions: APPLY TOPICALLY TWICE DAILY NEEDED FOR PAIN cyclobenzaprine 5 mg tablet 5 mg PO TID PRN colestipol 1 gram tablet 1 g PO BID Qty: 180 3RF metformin 1,000 mg tablet 1,000 mg PO BID Qty: 60 2RF ondansetron HCl 4 mg tablet 4 mg PO Q8H PRN (Reason: nausea and vomiting) 4 Days Qty: 30 0RF Problem Reconciliation Problems Reviewed?: Yes Patient Discharge Instructions Patient Instructions: Magnesium, Angina, Acute Kidney Injury, Stop Light Heart Failure Print Language: Thai Providers Primary Care Provider: Columba Rodríguez Admit Provider: Jer Chacon Attending Provider: Jer Chacon
--- NOTE | 2024-08-02 10:23 | SW/DCPLANNER ---
Spoke with patient on the phone. Patient stated that he is doing well. Patient stated that his medicine they had to order it. Patient stated that he is aware of his upcoming appointment. Patient stated that he was treated good and that [facility] has a really good facility. Patient stated that she has no concerns or questions at this time. Doug PRICE Senior Web Services Developer
[2024-08-06 15:43] LABS: POC Glucose,Bedside 131 (70-110)
== END 2024-08-01 16:54 | disposition home or self-care (01) ==
LOC: ER 13:33 → 2ND 14:05
PROVIDERS: Internal Medicine; Physician Assistant; Admitting Provider Student in an Organized Health Care Education/Training Program; Emergency Provider Student in an Organized Health Care Education/Training Program; PCP Family Medicine; Visit Provider Student in an Organized Health Care Education/Training Program
PROC: 4A023N7 Measurement of Cardiac Sampling and Pressure, Left Heart, Percutaneous Approach (ICD-10-PCS; CPT 93452; principal; 2024-08-01 10:00)
PROC: 4A023N6 Measurement of Cardiac Sampling and Pressure, Right Heart, Percutaneous Approach (ICD-10-PCS; CPT 93451; 2024-08-01 10:00)
DX: I21.4 Non-ST elevation (NSTEMI) myocardial infarction (principal); I48.0 Paroxysmal atrial fibrillation; N17.9 Acute kidney failure, unspecified; I11.0 Hypertensive heart disease with heart failure; I50.30 Unspecified diastolic (congestive) heart failure; R79.89 Other specified abnormal findings of blood chemistry; E78.2 Mixed hyperlipidemia; D50.9 Iron deficiency anemia, unspecified; I89.0 Lymphedema, not elsewhere classified; I73.9 Peripheral vascular disease, unspecified; L03.115 Cellulitis of right lower limb; E11.59 Type 2 diabetes mellitus with other circulatory complications; Z88.0 Allergy status to penicillin; Z79.84 Long term (current) use of oral hypoglycemic drugs; Z79.01 Long term (current) use of anticoagulants; Z79.899 Other long term (current) drug therapy; Z95.5 Presence of coronary angioplasty implant and graft; Z96.651 Presence of right artificial knee joint; Z79.85 Long-term (current) use of injectable non-insulin antidiabetic drugs; K21.9 Gastro-esophageal reflux disease without esophagitis; N40.0 Benign prostatic hyperplasia without lower urinary tract symptoms; I65.21 Occlusion and stenosis of right carotid artery
CPT/HCPCS: 36415; 71045; 80048; 80053; 82607; 82746; 82810; 82962; 83735; 83880; 84145; 84484; 85025; 93005; 93453; 93460; 93566; 93880; 96361; 96372; 96374; 96375; 96376; 97162; 97166; 99152; 99291; C1725; C1760; C1769; C1894; G0378; J1200; J1644; J1650; J2003; J2250; J3010; J3475; J7030; J7040; Q9967

== ENCOUNTER 2024-08-12 08:43 | Day surgery (SDC) | payer MEDICARE, SELFPAY ==
[2024-08-12 09:47] VITALS: BP 142/74; PULSE 83; RESP 18; TEMP 36.5; O2SAT 98; BMI 30.1
[2024-08-12 09:50] LABS: POC Glucose,Bedside 131 (70-110)
--- NOTE | 2024-08-12 17:53 | EXP.TILT ---
Findings:: Findings:: PROCEDURE: Upright tilt table test REQUESTING PHYSICIAN: Kirsten Gates MD INDICATION: Orthostatic hypotension with dizziness and near syncope MEDS: Atorvastatin, clopidogrel, diclofenac sodium 1%, folic acid, lidocaine 5% topical, metformin, metoprolol succinate, omeprazole, ondansetron HCl, rivaroxaban, tamsulosin and tramadol PRE-TEST VITAL SIGNS: Supine BP 147/74 mmHg with heart rate 72 bpm and O2 sat 99% PROCEDURE SUMMARY: Patient was prepared per protocol. He was then tilted into the upright position at 70 degrees for total of 30 minutes without syncope or near syncope. He did initially relate some lightheadedness with blood pressure noted to be 105/65 mmHg. It stayed in the range of 105/65 to 119/63 throughout the duration of the test with heart rate in the 80s to low 90 bpm range with lowest oxygen saturation 97%. Minimum heart rate 81 bpm with maximum 94 bpm. Lowest blood pressure in the standing position 105/64 mmHg with highest blood pressure in the standing position 119 over 63 mL millimeters mercury. No episodes of near syncope or syncope. After returning back to the supine position and ending the test patient then sat up on the side of the bed with symptoms of lightheadedness and dizziness with blood pressure noted to be 105 systolic. This gradually improved as his blood pressure returned back towards baseline of around 140/70 mmHg. He remained in sinus rhythm throughout the test. COMPLICATIONS: None CONCLUSION: Symptoms of lightheadedness with greater than 40 mmHg drop in blood pressure and 20 bpm rising heart rate.
== END 2024-08-12 11:15 | disposition home or self-care (01) ==
LOC: RT 08-13 09:22
PROVIDERS: PCP Family Medicine; Visit Provider Specialist
DX: I95.1 Orthostatic hypotension (principal); I48.0 Paroxysmal atrial fibrillation; E11.9 Type 2 diabetes mellitus without complications; I11.0 Hypertensive heart disease with heart failure; I50.9 Heart failure, unspecified; I25.10 Atherosclerotic heart disease of native coronary artery without angina pectoris; M06.9 Rheumatoid arthritis, unspecified; G47.30 Sleep apnea, unspecified; I48.92 Unspecified atrial flutter; Z87.891 Personal history of nicotine dependence; Z95.5 Presence of coronary angioplasty implant and graft; Z96.651 Presence of right artificial knee joint; Z79.02 Long term (current) use of antithrombotics/antiplatelets; Z79.01 Long term (current) use of anticoagulants; Z79.84 Long term (current) use of oral hypoglycemic drugs; Z88.0 Allergy status to penicillin
CPT/HCPCS: 82962; 93660

== ENCOUNTER 2024-08-26 09:37 | Outpatient (CLI) | payer MEDICARE, SELFPAY ==
--- NOTE | 2024-08-26 10:00 | CT_ITS ---
FINAL REPORT TECHNIQUE: Thin section axial images were obtained through the neck after contrast administration per CT angiogram protocol. Multiplanar reconstruction images were obtained from the axial data. Exam was performed using dose reduction technique. CLINICAL HISTORY: abnl cni,near syncope COMPARISON: None FINDINGS: CTA NECK: Aortic arch: There is a normal three-vessel configuration to the aortic arch. There is no significant stenosis of the great vessels at their origins. Right carotid artery: The right common carotid artery is patent without stenosis. There is calcification at the bulb with no stenosis of the right internal carotid artery which is patent to the skull base. Left carotid artery: The left common carotid artery is patent without stenosis. There is calcification at the bulb with no stenosis of the left internal carotid artery which is patent to the skull base. Vertebral arteries: The vertebral arteries are patent bilaterally. No significant stenosis or occlusion Other soft tissues: No acute findings. Bones: No acute osseous abnormality. IMPRESSION: No significant carotid stenosis. Patent vertebral arteries. No acute soft tissue abnormality. Reviewed, Interpreted and Dictated by Esther Mcclain MD Transcribed by Tiara Alcantar Authenticated and [facility]
== END 2024-08-26 23:59 | disposition home or self-care (01) ==
LOC: RAD 09:38
PROVIDERS: PCP Family Medicine; Visit Provider Nurse Practitioner
DX: R55 Syncope and collapse (principal); R42 Dizziness and giddiness; R93.89 Abnormal findings on diagnostic imaging of other specified body structures
CPT/HCPCS: 70498

== ENCOUNTER 2024-09-06 09:11 | Outpatient (CLI) | payer MEDICARE, SELFPAY ==
--- OUTSIDE RECORDS SUMMARY | 2024-09-06 09:14 | XMS_ITS | Encounter Summary ---
Author Organization [facility] Address [address] [place] [id number] Care Team Providers Care Desk Assistant Name Role Phone Unavailable Primary Care Provider Unavailabl e Encounter Details Date Type Department Care Team (Late st Contact Info) Description 12/23/2020 Transcribed Document [facility] [place] [address] ProviderJaime MD [address] [place] [address] Social History Tobacco Use Types Packs/Day Years Used Date Smoking Tobacco: Never Assessed Sex and Gender Information Value Date Recorded Sex Assigned at Not on file Legal Sex Male 5:28 PM CDT Gender Identity Not on file Sexual Orientation Not on file documented as of this encounter Miscellaneous Notes * Cerner Conversion Note - Jaime ProviderMD - 12/23/2020 8:11 AM CDT [facility] OR PACU Summary Primary Physician: KAYLA ZIMMERMAN JR, JR, MD-ORT Finalized Date/Time: 12/23/20 11:16:13 Pt. Name: AYLEEN BLACK III /Sex: 1950 Male Med Rec #: [id number] Physician: KAYLA ZIMMERMAN JR, JR, MD-ORT Financial #: [id number] Pt. Type: O Room/Bed: Admit/Disch: 12/23/20 04:16:00 - Institution: [facility] OR PACU Case Times Entry 1 In PACU I 12/23/20 09:56:00 Ready for PACU 12/23/20 11:12:00 Discharge Discharge from PACU 12/23/20 11:12:00 I Last Modified By: Janene Helm RN 12/23/20 11:16:01 [facility] PACU Case Times Audit 12/23/20 11:16:01 High Density Press Operator: KINZA Modifier: CARRIEC 1 <*> Ready for PACU Discharge 12/23/20 10:30:00 1 <+> Discharge from PACU I Finalized By: Janene Helm RN Document Signatures Signed By: Janene Helm RN 12/23/20 11:16 documented in this encounter Plan of Treatment Not on file documented as of this encounter Visit Diagnoses Not on filedocumented in this encounter
--- OUTSIDE RECORDS SUMMARY | 2024-09-06 09:14 | XMS_ITS | Encounter Summary ---
Author Organization [employer] [facility] Address [address] [place] [address] Care Team Providers Care Planning And Analysis Manager Name Role Phone Unavailable Primary Care Provider Unavailabl e Encounter Details Date Type Department Care Team (Late st Contact Info) Description 12/23/2020 Transcribed Document [facility] [place] [facility] [place] [address] ProviderJaime MD [address] [place] [address] Social History Tobacco Use Types Packs/Day Years Used Date Smoking Tobacco: Never Assessed Sex and Gender Information Value Date Recorded Sex Assigned at Not on file Legal Sex Male 5:28 PM CDT Gender Identity Not on file Sexual Orientation Not on file documented as of this encounter Miscellaneous Notes * Cerner Conversion Note - Jaime ProviderMD - 12/23/2020 9:24 AM CDT Evaluation, Physical Therapy Entered On: 12/23/2020 14:14 EDT Performed On: 12/23/2020 11:51 EDT by ULYSSES SYED, PT General Information, PT Visit Type, PT : Initial evaluation Patient Orders : Order Date Order Ordering 12/23/2020 09:24 PT Evaluation and Treatment Ordered By: KAYLA ZIMMERMAN JR, JR, MD-ORT 12/23/2020 09:24 PT Treatment Instructions Ordered By: KAYLA ZIMMERMAN JR, JR, MD-ORT 12/23/2020 09:24 PT Treatment Instructions Ordered By: KAYLA ZIMMERMAN JR, JR, MD-ORT 12/23/2020 09:24 PT Treatment Instructions Ordered By: KAYLA ZIMMERMAN JR, JR, MD-ORT 12/23/2020 09:24 PT Treatment Instructions Ordered By: KAYLA ZIMMERMAN JR, JR, MD-ORT 12/23/2020 09:24 PT Treatment Instructions Ordered By: KAYLA ZIMMERMAN JR, JR, MD-ORT 12/23/2020 09:24 PT Treatment Instructions Ordered By: KAYLA ZIMMERMAN JR, JR, MD-ORFreeman Active Diagnoses : Unilateral primary osteoarthritis, right knee 12/23/2020 12:00 Atherosclerotic heart disease of [place] coronary artery without angina pectoris 12/23/2020 12:00 COVID-19 12/23/2020 12:00 Essential (primary) hypertension 12/23/2020 12:00 Irritable bowel syndrome without diarrhea 12/23/2020 12:00 Pain in right knee 12/23/2020 12:00 Personal history of other diseases of the nervous system and sense organs 12/23/2020 12:00 Presence of right artificial knee joint 12/23/2020 12:00 Pure hypercholesterolemia, unspecified 12/23/2020 12:00 Rheumatoid arthritis, unspecified 12/23/2020 12:00 Type 2 diabetes mellitus without complications 12/23/2020 12:00 Unilateral primary osteoarthritis, right knee Therapy Diagnosis, PT : aftercare following R TKA Admission Date : 12/23/2020 04:16 Personal Devices : Personal Devices No Devices Recorded Assistive Devices : Assistive Devices No Devices Recorded Precautions in Place : Fall prevention measures General Information Comment, PT : 70yo male s/p R TKA by Dr. Zimmerman on 12/23/20. WBAT Patient has lymphedema KI brace adjusted to fit patient's leg properly + snugged up prior to getting up to walk. Patient is suppose to be a FAST TRACK and discharge home today. ULYSSES SYED, PT - 12/23/2020 14:03 EDT General Status Patient Received Status : Supine in bed, Other: on stretcher in post op, KI brace, polar ice pack, JONATHAN 7 dressing, on Q pain pump Treatment Start Time : 12/23/2020 11:20 EDT Patient Left Status : Up in chair, RN/PCT informed, Other: as found RN/PCT Informed Comment : RN ok'd PT EVAL. Patient agreeable to PT EVAL. Treatment End Time : 12/23/2020 11:51 EDT Treatment Time : 31 Minute(s) Actual Treatment Time : 31 Minute(s) ULYSSES SYED, PT - 12/23/2020 14:03 EDT History and Environment Living Situation, Therapy : Home Patient Lives With : Spouse Persons Providing Information : Patient Home Equipment Therapy, PT : Commode, Shower Equipment, Walker Commode : Toilet seat, elevated Shower Equipment : Shower Chair, with back Walker : Walker, front wheel Home Setup : One story Stairs : Yes Stair Location(s) : Outside Outside Stairs, Number of Steps : 1 Outside Stairs Comment : small step into house ULYSSES SYED, PT - 12/23/2020 14:03 EDT Prior Level of Function PT GRID Prior LOF Ambulation, Household : Independent Prior LOF Ambulation, Community : Independent Prior LOF Bed Mobility : Independent Prior LOF Toileting : Independent Prior LOF Transfer : Independent ULYSSES SYED, PT - 12/23/2020 14:03 EDT Prior LOF Assist with ADL Comment : Independent per patient report. ULYSSES SYED, PT - 12/23/2020 14:03 EDT Upper Extremity Upper Extremity Dominance : Right Right UE Active ROM : WFL Right UE Strength : WFL Left UE Active ROM : Impaired Left UE Strength : Impaired Upper Extremity Comment : Patient reports he's been told he needs a left total shoulder replacement. Limited AROM shoulder flexion ULYSSES SYED, PT - 12/23/2020 14:03 EDT Lower Extremity RLE Active ROM : Impaired Right LE Strength : Impaired LLE Active ROM : WFL Left LE Strength : WFL Lower Extremity Comment : R knee AROM/strength impaired d/t recent surgery edema - patient states he has lymphedema in legs. ULYSSES SYED, PT - 12/23/2020 14:03 EDT Gait Training/Assessment, PT Weight Bearing Status : As tolerated Gait Assistance Level : Assist, minimal Walking Distance : 25' x 2 Ambulatory Devices : Gait belt, Walker, front wheel Gait Training Comment : Patient ambulated 25' x 2 with RWx CGA/Min A + KI brace on R LE + cues for proper gait sequencing and safety with RWx. Stair Training Comment : Verbalized proper technique to ascend/descend the 1 step to get into the house. up with the good leg down with the bad leg (surgical) ULYSSES SYED, PT - 12/23/2020 14:03 EDT Neuromuscular Reeducation, PT Balance Comment : Good with AD ULYSSES SYED, PT - 12/23/2020 14:03 EDT Neurological/Sensory Overall Sensory Response : Impaired Overall Sensory Response Comment : neuropathy in feet ULYSSES SYED, PT - 12/23/2020 14:03 EDT Activity Tolerance, PT Activity Comment : Good ULYSSES SYED, PT - 12/23/2020 14:03 EDT Cognition Assessment, PT Orientation : Oriented x 4 Safety/Judgment Comment : Intact Follows Basic Command Assessment : Yes Attention Assessment : Present ULYSSES SYED, PT - 12/23/2020 14:03 EDT Edu Topics Physical Therapy Education Grid Bed Mobility Training : Verbalizes understanding, Returns demonstration Gait Training : Verbalizes understanding, Returns demonstration, Needs reinforcement Home Program/Exercises : Verbalizes understanding Role of Physical Therapy : Verbalizes understanding Safety : Verbalizes understanding, Needs reinforcement Stair Training : Verbalizes understanding Transfer Training : Verbalizes understanding, Returns demonstration, Needs reinforcement Use of Assistive Device : Verbalizes understanding, Returns demonstration, Needs reinforcement ULYSSES SYED, PT - 12/23/2020 14:03 EDT Teaching/Learning Assessment Barriers To Learning : None evident Individuals Taught : Patient Readiness to Learn : Cooperative Readiness to Learn : Demonstration, Explanation, Printed materials Learning Style Preferences Patient : None ULYSSES SYED, PT - 12/23/2020 14:03 EDT Indication Assesessment, PT Physical Therapy Indicated : No Physical Therapy Not Indicated : Other: D/C home today. ULYSSES SYED, PT - 12/23/2020 14:03 EDT Plan of Care, PT PT Tx Plan/Goals Established w Patient : No Reason Tx/Plan Not Established W/ Pt PT : D/C home today. PT Frequency Rehab : Discontinue ULYSSES SYED, PT - 12/23/2020 14:03 EDT Treatment Note Additional Objective Information : Educated patient on ZERO KNEE Educated patient on sleeping in KI brace x 2 weeks Issued/educated and demonstrated TKA HEP with patient Assessment : Patient demonstrated bed mobility, transfers, ambulation with RWx + KI brace, verbalized understanding of TKA HEP and proper technique to go up/down 1 step to enter home. Patient is SAFE to discharge home with family to assist prn + Home Health PT to follow for post op TKA rehab. ULYSSES SYED, PT - 12/23/2020 14:03 EDT Pain Assessment Pain Scaled Used : 0-10 Pain scale Pain Score Pre-Intervention : 6 Pain Score During-Intervention : 6 Pain Score Post-Intervention. : 6 Pain Comment : 6/10 pain in R knee RN aware ULYSSES SYED, PT - 12/23/2020 14:03 EDT Image 1 - Images currently included in the form version of this document have not been included in the text rendition version of the form. Anticipated Discharge Needs, OT/PT Anticipated Discharge to : Home, with family care, Home, with home health Recommend Continued Therapy at Discharge : Yes ULYSSES SYED, PT - 12/23/2020 14:[address] [facility] PT Charges PT Therap. Exercise 15 min : 1 Gait Training Each 15 Min : 1 PT Eval Low Complexity : 1 ULYSSES SYED, PT - 12/23/2020 14:03 EDT documented in this encounter Plan of Treatment Not on file documented as of this encounter Visit Diagnoses Not on filedocumented in this encounter
--- OUTSIDE RECORDS SUMMARY | 2024-09-06 09:14 | XMS_ITS | Referral Summary ---
Author Organization [facility] [employer] Address [address] [place] [address] Care Team Providers Care Micro Lab Analyst Name Role Phone Unavailable Primary Care Provider Unavailabl e Social History Tobacco Use Types Packs/Day Years Used Date Smoking Tobacco: Never Assessed Interpersonal Safety Answer Date Record ed Family or friends hurt you Not on file 01/22 Family or friends insult you Not on file Family or friends threaten you Not on file 1 Family or friends scream or curse at you Not on file 01/23/2024 Food Insecurity Answer Date Recorded Food run out past 12 months Not on file 12/26 Food did not last past 12 months Not on file 01/23/2024 Employment Answer Date Recorded Help finding and keeping a job Not on file 1 Family and Community Support Answer Sebastian e Recorded Help with Day to Day Activities Not on file 01/23/2024 Feeling Lonely or Isolated Not on file 01/22 Educational Attainment Answer Date Milton rded Speak language other than Setswana at home Not on file 01/23/2024 Want help with school or training Not on file 01/23/2024 Depression Answer Date Recorded PHQ-2 Risk Not on file 01/23/2024 Disabilities Answer Date Recorded Difficulty concentrating Not on file 024 Difficulty doing errands alone Not on file 1 Substance Use Answer Date Recorded Used prescription meds for non-medical reasons N ot on file 01/23/2024 Used illegal drugs past 12 months Not on file 01/23/2024 Sex and Gender Information Value Date Recorded Sex Assigned at Not on file Legal Sex Male 5:28 PM CDT Gender Identity Not on file Sexual Orientation Not on file Plan of Treatment Not on file Insurance [facility] [place] [address]
--- OUTSIDE RECORDS SUMMARY | 2024-09-06 09:14 | XMS_ITS | Encounter Summary ---
Author Organization [facility] Address [address] [place] [address] Care Team Providers Care Automotive Engineering Teacher Name Role Phone Unavailable Primary Care Provider Unavailabl e Encounter Details Date Type Department Care Team (Late st Contact Info) Description 12/23/2020 Transcribed Document [facility] [place] [facility] [place] [address] ProviderJaime MD [address], [place] [address] Social History Tobacco Use Types Packs/Day Years Used Date Smoking Tobacco: Never Assessed Sex and Gender Information Value Date Recorded Sex Assigned at Not on file Legal Sex Male 5:28 PM CDT Gender Identity Not on file Sexual Orientation Not on file documented as of this encounter Miscellaneous Notes * Cerner Conversion Note - Jaime ProviderMD - 12/23/2020 3:58 PM CDT Final Discharge Planning Entered On: 12/23/2020 16:00 EDT Performed On: 12/23/2020 15:58 EDT by ANGELA NGUYEN RN Final Discharge Planning Discharge Arrangements : Patient Post-Acute Information Patient Name: AYLEEN BLACK III Gender: Male : 54 Age: 70 Years No Post-Acute Placement(s) Listed No Post-Acute Service(s) Listed No [place] Referral(s) Listed Patient Offered Choice/Affiliations Explained : Yes Designation of Choice Signed : Yes Important Medicare Message Reviewed With : Other: Outpatient Important Medicare Message Reviewed D/T : 12/23/2020 15:59 EDT Transportation Needs : Family/Friend Follow Up Appointment Scheduled : Yes Is Patient High/Moderate Readmission Risk? : No Patient/Family Notified of Plan : Yes Support Person/Pt Rep Notified of Plan : Yes Is Patient Ready for Discharge? : Yes Physician Notified Patient is Ready for Discharge? : Yes Discharge To Care Management : Home/Residential/Fdc or Self Care -01 ANGELA NGUYEN RN - 12/23/2020 15:58 EDT Final Narrative Note Final Narrative Note : [facility] called back and cant take patient due to staffing. Sent Referral out to [facility] and Nicolette notified. Pt discharged home with Poppy to follow. No further CM needs identiifed. ANGELA NGUYEN RN - 12/23/2020 15:58 EDT Electronically signed by Adolph Crowder Conversion Radiation Protection Technician Cerner at 07/09/2022 10:37 AM CDT documented in this encounter Plan of Treatment Not on file documented as of this encounter Visit Diagnoses Not on filedocumented in this encounter
--- OUTSIDE RECORDS SUMMARY | 2024-09-06 09:14 | XMS_ITS | Encounter Summary ---
Author Organization [employer] [facility] Address [address] [place] [address] Care Team Providers Care Mortgage Loan Assistant Name Role Phone Unavailable Primary Care Provider Unavailabl e Encounter Details Date Type Department Care Team (Late st Contact Info) Description 12/23/2020 Transcribed Document [facility] [place] Medicine [facility] [place] [address] ProviderJaime MD [address] [place] [address] Social History Tobacco Use Types Packs/Day Years Used Date Smoking Tobacco: Never Assessed Sex and Gender Information Value Date Recorded Sex Assigned at Not on file Legal Sex Male 5:28 PM CDT Gender Identity Not on file Sexual Orientation Not on file documented as of this encounter Miscellaneous Notes * Cerner Conversion Note - Jaime ProviderMD - 12/23/2020 6:56 AM CDT PAT Adult Entered On: 12/23/2020 7:00 EDT Performed On: 12/23/2020 6:56 EDT by Georgie Boyce RN Pain Assessment Pain Assessment : Initial assessment Pain Scale Used : 0-10 Scale Georgie Boyce RN - 12/23/2020 6:56 EDT Height and Weight, Clinical Dosing Height Source : Measured Height Entry Format : [facility] Height, Feet : 5 ft(Converted to: 152 cm, 60 Inch) Height, Inches : 9 Inch(Converted to: 0 ft 9 Inch, 22.86 cm) Clinical Height : 175.26 cm Weight Source : Standing scale Weight Entry Format : [facility] Clinical Dosing Weight : 96.36 kg Weight, Pounds : 212 lb Body Surface Area (BSA) : 2.12 m2 Body Mass Index : 31.4 kg/m2 (HI) [place] Body Weight : 70 kg Georgie Boyce RN - 12/23/2020 6:56 EDT Health Histories Smoking Status : Never (less than 100 in lifetime; none in last 30 days) Smokeless Tobacco Status : Never Georgie Boyce RN - 12/23/2020 6:56 EDT Social History (As Of: 12/23/2020 07:00:04 EDT) Tobacco: Smoking Status Never smoker. (Last Updated: 12/15/2014 07:41:46 EDT by CARTER MERINO RN) Never (less than 100 in lifetime) Smoking Status. Never Smokeless Tobacco Status. (Last Updated: 12/09/2020 15:40:36 EDT by Michaela Alvarez Rn) Alcohol: Alcohol Use History No. Use in Last 12 Months: No. (Last Updated: 12/09/2020 15:40:45 EDT by Michaela Alvarez Rn) Substance Abuse: Drug Use Hx: No. Use in Last 12 Months: No. (Last Updated: 12/09/2020 15:40:52 EDT by Michaela Alvarez Rn) Infectious Disease History Does patient have symptoms of COVID-19? : No Has the Patient Been Tested for COVID-19 in the last 14 days? : Yes, Patient stated results Negative Does the Patient state known exposure to a COVID-19 positive case in the last 14 days? : No Patient Vaccinated for COVID-19 : Not vaccinated Does Patient want a COVID-19 Vaccine? : No Georgie Boyce RN - 12/23/2020 6:56 EDT Infectious Disease Risk Screening Grid Cough < 2 wks of unknown origin : NO Cough > 2 weeks : NO Blood in Sputum : NO Fever or self-reported Fever : NO Rash of unknown origin : NO Headache : NO Stiff neck : NO Night Sweats : NO Unexplained Weight Loss : NO Diarrhea (3 episode per day) : NO Georgie Boyce RN - 12/23/2020 6:56 EDT Physical contact outside [place] in the last 30 days : No Hospitalized in Foreign Country : No Infectious Disease History : Influenza INF Disease TB Screening Calc : 0 INF Disease Recent Travel Calc : 0 Georgie Boyce RN - 12/23/2020 6:56 EDT COVID19 PreProcedure Screening Is this an Emergent or Add on Procedure? : No Date PreProcedure COVID-19 test known? : Yes Date of PreProcedure COVID-19 : 12/22/2020 EDT Has patient been isolated since the test : Yes Exposed to COVID19 symptoms since test? : No Georgie Byoce RN - 12/23/2020 6:56 EDT Anesthesia/Transfusion History Family History of Anesthesia Reaction : No prior transfusion(s) Blood Transfusion Acceptable to Patient : Yes Transfusion History : Prior anesthesia without reaction Family History of Anesthesia Reaction : None Georgie Boyce RN - 12/23/2020 6:56 EDT Advance Directive Patient has Advance Directive *Q : Yes, Advance Directive not with the patient Advance Directive Type : Living will Copy Advance Directive Verified/on Chart : No Georgie Boyce RN - 12/23/2020 6:56 EDT Cole Suicide Severity Rating Scale (C-SSRS) CSSRS Past Month Wish to be : No CSSRS Past Month Suicidal Thoughts : No CSSRS Lifetime Suicide Behavior : No Suicide Severity Rating Score : 0 Suicide Severity Rating : No Additional Care Required at this time Georgie Boyce RN - 12/23/2020 6:56 EDT Psychosocial History Do You Have a History of the Following? : Patient denies history Currently in Unsafe Situation : No Georgie Boyce RN - 12/23/2020 6:56 EDT General Info Arrived From : Home Mode of Arrival on Unit : Ambulatory Support Person/Pt Rep Name : Marcie Esteban Family/Rep/Phys Notified of Admit : No Emergency Contact #1 : Pooja Alford Emergency Contact #1 Emergency Contact #1 Relationship : spouse Emergency Contact #2 : . Emergency Contact #2 Phone Number : . Emergency Contact #2 Relationship : . Primary Language : Burmese Preferred Communication Mode : Verbal Communication Barrier : None Certified Surgical Technician Needed : No Georgie Boyce RN - 12/23/2020 6:56 EDT Yang Scale Yang Sensory Perception : No impairment Yang Moisture : Rarely moist Yang Activity : Walks frequently Yang Mobility : No limitation Yang Nutrition : Excellent Yang Friction and Shear : No apparent problem Yang Score : 23 Georgie Boyce RN - 12/23/2020 6:56 EDT Sleep Apnea Risk Assmt BiPAP/CPAP Ordered for Home Use : No Hx of Obstructive Sleep Apnea Diagnosis : Yes Age over 50 Years Old : Yes Gender Male : Yes Georgie Boyce RN - 12/23/2020 6:56 EDT Pain Scale Intensity : 0 Georgie Boyce RN - 12/23/2020 6:56 EDT Image 4 - Images currently included in the form version of this document have not been included in the text rendition version of the form. documented in this encounter Plan of Treatment Not on file documented as of this encounter Visit Diagnoses Not on filedocumented in this encounter
--- OUTSIDE RECORDS SUMMARY | 2024-09-06 09:14 | XMS_ITS | Encounter Summary ---
Author Organization [facility] [employer] [facility] Address [address] [place] [address] Care Team Providers Care Bead Machine Operator Name Role Phone Unavailable Primary Care Provider Unavailabl e Encounter Details Date Type Department Care Team (Late st Contact Info) Description 12/23/2020 Transcribed Document [facility] [place] [facility] [place] [address] ProviderJaime MD [address] [place] [address] Social History Tobacco Use Types [...] ProviderMD - 12/23/2020 9:24 AM CDT Evaluation, Occupational Therapy Entered On: 12/23/2020 16:09 EDT Performed On: 12/23/2020 11:20 EDT by ALEXANDRA KEY OTR/Danny General Information, OT Visit Type, OT : Initial evaluation Patient Orders : Order Date Order Ordering 12/23/2020 09:24 OT Evaluation and Treatment Ordered By: KAYLA ZIMMERMAN JR, JR, MD-ORT 12/23/2020 09:24 OT Treatment Instructions Ordered By: KAYLA ZIMMERMAN JR, JR, MD-ORFreeman Active Diagnoses : Unilateral primary osteoarthritis, right knee 12/23/2020 12:00 Atherosclerotic heart disease of [place] coronary artery without angina pectoris 12/23/2020 12:00 [...] Unilateral primary osteoarthritis, right knee Therapy Diagnosis, OT : aftercare following joint replacement surgery Onset of Problem, OT : 12/23/2020 EDT Admission Date : 12/23/2020 04:16 Personal Devices : Personal Devices No Devices Recorded Assistive Devices : Assistive Devices No Devices Recorded Precautions in Place : Fall prevention measures ALEXANDRA KEY OTR/L - 12/23/2020 16:05 EDT General Status Patient Received Status : Long sitting in bed Treatment Start Time : 12/23/2020 11:20 EDT Patient Left Status : Up in chair, RN/PCT informed, All needs met and within reach RN/PCT Informed Comment : Rn ok'ed. Client agrees to tx. Treatment End Time : 12/23/2020 11:50 EDT Treatment Time : 30 Minute(s) Actual Treatment Time : 30 Minute(s) ALEXANDRA KEY OTR/L - 12/23/2020 16:05 EDT History and Environment, OT Living Situation, Therapy : Home Patient Lives With : Spouse Persons Providing Information : Patient Home Setup : One story Stairs : Yes Stair Location(s) : Outside Outside Stairs, Number of Steps : 1 Outside Stairs Comment : small step into house ALEXANDRA KEY OTR/L - 12/23/2020 16:05 EDT Upper Extremity Upper Extremity Dominance : Right Right UE Active ROM : Impaired Left UE Active ROM : Impaired Upper Extremity Comment : client reports that he is schedule for shoulder repair, currently has diffciulty reaching up with left arm, but reports that he does not have trouble pushing down (on walker, for example) ALEXANDRA KEY OTR/L - 12/24/2020 6:53 EDT Self Care/Home Management, OT Lower Body Dressing Assist Level, OT : Assist, moderate Toileting Assist Level : Supervision or set-up ALEXANDRA KEY OTR/Danny - 12/24/2020 6:53 EDT Functional Mobility Mobility Grid Supine to Sit : Rehab Minimal assistance Sit to Stand : Supervision/set-up (Comment: CGA [ALEXANDRA KEY OTR/Danny - 12/24/2020 6:53 EDT] ) Bed to Chair : Supervision/set-up (Comment: CGA [ALEXANDRA KEY OTR/Danny - 12/24/2020 6:53 EDT] ) ALEXANDRA KEY OTR/Danny - 12/24/2020 6:53 EDT Cognition Assessment, OT Orientation : Oriented x 4 ALEXANDRA KEY OTR/Danny - 12/24/2020 6:53 EDT Indication Assessment, OT Occupational Therapy Indicated : No Occupational Therapy Not Indicated : Other: Client will d/c today ALEXANDRA KEY OTR/Danny - 12/23/2020 16:05 EDT Plan of Care, OT OT Tx Plan/Goals Established w Patient : Yes ALEXANDRA KEY OTR/Danny - 12/23/2020 16:05 EDT Treatment Note Additional Objective Information : Client completed LB dressing with mod A due to knee immobilizer. Walked to bathroom and completed toileting in standing, no loss of balance. Walked to sink to wash hands, walked back to chair, verbalizes understanding of car transfer, using walker at all times, adaptations for ADLS. Client used walker, gait belt, knee immobilizer for all mobility. ALEXANDRA KEY OTR/Danny - 12/24/2020 6:53 EDT Assessment : Client has completed activities for safe d/c home with family and home health. Handout left in room with detailed instructions. No further inpatient OT services required. ALEXANDRA KEY OTR/Danny - 12/23/2020 16:[address] [facility] OT Charges OT Selfcare/Hm Mgmt Ea 15 Min : 1 OT Eval Low Complexity : 1 ALEXANDRA KEY OTR/L - 12/23/2020 16:05 EDT documented in this encounter Plan of Treatment Not on file documented as of this encounter Visit Diagnoses Not on filedocumented in this encounter
--- OUTSIDE RECORDS SUMMARY | 2024-09-06 09:14 | XMS_ITS | Clinical Summary ---
Author Organization [facility] Address [address] [place] [address] Care Team Providers Care Sanforizer Name Role Phone Unavailable Primary Care Provider [...] Date [place] rded Speak language other than Irish at home Not on file 01/23/2024 Want [...] Plan of Treatment Not on file Insurance [facility] [place] [phone]
--- OUTSIDE RECORDS SUMMARY | 2024-09-06 09:14 | XMS_ITS | Encounter Summary ---
Author Organization [facility] Address [address] [place] [id number] Care Team Providers Care Secy Name Role Phone Unavailable Primary Care Provider Unavailabl e Reason for Referral * Consultation (Routine) - Closed Specialty Diagnoses / Procedures Referred By Contac t Referred To Contact Neurology Diagnoses Seizure (HCC) Kirsten Gates [address] [place] [address] Phone: tel: Mac Leonard MD [address] [facility] [address] [place] [address] Phone: tel: fax: Referral ID Status Reason Start Date Expiration Date V isits Requested Visits Authorized [id number] Closed Specialty Services Required 01/03/2024 01/02/2025 1 1 Encounter Details Date Type Department Care Team (Late st Contact Info) Description 01/03/2024 Outside Orders [facility] Neurology [address] [facility] [address] [place] [address] Kirsten Gates [address] [place] [id number] Seizure (HCC) (Primary Dx) Social History Tobacco Use Types Packs/Day Years Used Date Smoking Tobacco: Never Assessed Sex and Gender Information Value Date Recorded Sex Assigned at Not on file Legal Sex Male 5:28 PM CDT Gender Identity Not on file Sexual Orientation Not on file documented as of this encounter Plan of Treatment Scheduled Referrals Name Type Priority Associated Diagnoses Order Schedule Ambulatory referral to Neurology Outpatient Referral Routine Seizure (HCC) Ordered: 01/03/2024 documented as of this encounter Visit Diagnoses Diagnosis Seizure (HCC)- Primary Other convulsions documented in this encounter
--- OUTSIDE RECORDS SUMMARY | 2024-09-06 09:14 | XMS_ITS | Encounter Summary ---
Author Organization [facility] Address [address] [place] [id number] Care Team Providers Care Composition Molder Name Role Phone Unavailable Primary Care Provider Unavailabl e Encounter Details Date Type Department Care Team (Late st Contact Info) Description 12/23/2020 Transcribed Document [facility] Family Medicine [facility] [place] [address] ProviderJaime MD [address] [id number] Social History Tobacco Use Types Packs/Day Years Used Date Smoking Tobacco: Never Assessed Sex and Gender Information Value Date Recorded Sex Assigned at Not on file Legal Sex Male 5:28 PM CDT Gender Identity Not on file Sexual Orientation Not on file documented as of this encounter Miscellaneous Notes * Cerner Conversion Note - Jaime ProviderMD - 12/23/2020 12:26 PM CDT Patient: AYLEEN BLACK III Age: 70 years Sex: Male : 1950 Associated Diagnoses: Unilateral primary osteoarthritis, right knee; Status post total knee replacement, right; Right knee pain; Hypertension; High cholesterol; Diabetes; RA (rheumatoid arthritis); IBS (irritable bowel syndrome); History of obstructive sleep apnea; COVID-19; CAD (coronary artery disease) Author: AID AGUILAR MD-INT Date of admission 12/23/2020 Date of consult 12/23/2020 10:29 AM PCP Rubén Anthony MD Orthopedic surgeon, Danish Hartman MD Hospitalist medicine consult, internal medicine, Adi Aguilar MD Reason for the consult, postoperative medical management Surgery See operative report dictated by Dr. Hartman Admitting diagnosis 1???unilateral primary osteoarthritis right knee 2???s/p R TKA 3???right knee pain 4???CAD 5???DM type II 6???HTN 7???HLP 8???RA 9???IBS 10???history CATHLEEN 11???history of COVID-19 infection 12???obesity with BMI of 31.4 13???right lower extremity lymphedema History of present illness A pleasant 70 years old white male with a history of CAD, DM, HTN, HLP, RA, IBS, CATHLEEN, COVID-19 infection, obesity with BMI of 31.4, lower extremity lymphedema in addition to l right knee pain from osteoarthritis who is after medical clearance by his PCP he underwent right total knee arthroplasty by Dr. Hartman. Patient had surgery and is recovering well is awake alert cooperative responsive under no acute distress and is answering questions appropriately. Currently patient is on femoral nerve block in addition to oral pain medications as per Dr. Hartman recommendations and the pain is under control. Patient is on DVT prophylaxis as per Dr. Hartman protocol. Patient did not urinated yet. Patient is on scheduled bowel regimen. Patient did not started on oral nutrition yet. Patient denies any chest pain, shortness of breath, diaphoresis nausea or vomiting. PT/OT on board. Patient has right lower extremity lymphedema. Right lower extremity venous duplex has been ordered and came back negative for DVT. Review of Systems Constitutional: No fever, No chills. Eye: No visual disturbances. Ear/Nose/Mouth/Throat: No nasal congestion, No sore throat. Respiratory: No shortness of breath, No cough. Cardiovascular: No chest pain, No tachycardia. Gastrointestinal: No nausea, No vomiting, No abdominal pain. Genitourinary: No change in urine stream. Hematology/Lymphatics: No bleeding tendency. Endocrine: No polyuria, No cold intolerance, No heat intolerance. Immunologic: Negative. Musculoskeletal: Negative. Integumentary: No rash, No pruritus. Neurologic: No confusion, No numbness, No tingling, No headache. Psychiatric: No anxiety, No depression. All other systems are negative Health Status Allergies: Allergies (1) Active Reaction penicillin itchy Current medications: (Selected) Inpatient Medications Ordered Actos: 30 mg, Oral, Daily, Routine, Start 12/23/20 12:50:00 EDT, 12/23/20 12:50:00 EDT Benadryl: 25 mg, Oral, Tab, On-CALL, PRN for Other (See Comment), Routine, Start 12/23/20 12:49:00 EDT, 12/23/20 12:49:00 EDT Chloraseptic Menthol 1.4% topical spray: 5 [place], Oral, [place], Q2H, PRN for Sore Throat, Routine, Start 12/23/20 12:49:00 EDT Dulcolax Laxative: 10 mg, Rectal, Supp, Daily, PRN for Constipation, Routine, Start 12/23/20 12:49:00 EDT, 12/23/20 12:49:00 EDT DuoNeb 0.5 mg-2.5 mg/3 mL inhalation solution: 3 mL, Nebulized Inhalation, Inh, Q4H, PRN for Wheezing, Routine, Start 12/23/20 12:49:00 EDT HYDROmorphone: 0.5 mg, IV Push, Inj, Q10Min, PRN for Pain (Severe 7-10), Routine, Start 12/23/20 9:53:00 EDT, 12/23/20 9:53:00 EDT Milk of Magnesia 8% oral suspension: 15 mL, Oral, Liquid, Q6H, PRN for Constipation, Routine, Start 12/23/20 12:49:00 EDT Mylanta: 30 mL, Oral, Liquid, Q6H, PRN for Indigestion, Routine, Start 12/23/20 12:49:00 EDT Ofirmev: 1,000 mg 100 mL, IV Piggyback, Inj, 1-Time, infuse over 15 Minute(s), order duration: 24 Hour(s), Routine, Start 12/15/14 7:00:00 EDT, Stop 12/15/14 7:00:00 EDT, 400 mL/Hr Phenergan: 12.5 mg, IV Push, Inj, Q6H, PRN for Nausea, Routine, Start 12/23/20 12:49:00 EDT, 12/23/20 12:49:00 EDT Phenergan: 12.5 mg, Oral, Tab, Q6H, PRN for Nausea, Routine, Start 12/23/20 12:49:00 EDT, 12/23/20 12:49:00 EDT Plavix: 75 mg, Oral, Daily, Routine, Start 12/23/20 12:50:00 EDT, 12/23/20 12:50:00 EDT Skelaxin: 800 mg, Oral, Tab, TID, PRN for Muscle Spasms, Routine, Start 12/23/20 12:49:00 EDT, 12/23/20 12:49:00 EDT Sodium Chloride 0.9% intravenous solution 1,000 mL: 1,000 mL, Bag Volume (mL) = 1,000, IntraVENous, Rate = 100 mL/Hr, start date 12/23/20 9:54:00 EDT, Routine, X 8 Hour(s), Stop 12/23/20 17:53:00 EDT, 2.17, m2 Sodium Chloride 0.9% intravenous solution 1,000 mL: 1,000 mL, Bag Volume (mL) = 1,000, IntraVENous, Rate = 50 mL/Hr, start date 12/23/20 17:24:00 EDT, Routine, 2.17, m2 Sublimaze: 25 mcg, IV Push, Inj, Q5Min, PRN for Pain (Mild 1-3), Routine, Start 12/23/20 9:53:00 EDT, 12/23/20 9:53:00 EDT Sublimaze: 50 mcg, IV Push, Inj, Q5Min, PRN for Pain (Moderate 4-6), Routine, Start 12/23/20 9:53:00 EDT, 12/23/20 9:53:00 EDT Tylenol: 1,000 mg, Oral, Tab, Q8HInt, Routine, Start 12/23/20 10:00:00 EDT, 12/23/20 9:54:00 EDT Vitamin B6: 400 mg, Oral, Daily, Routine, Start 12/23/20 12:50:00 EDT, 12/23/20 12:50:00 EDT Vitamin C: 500 mg, Oral, Daily, Routine, Start 12/23/20 12:50:00 EDT, 12/23/20 12:50:00 EDT Vitamin D3: 125 mcg, Oral, Daily, Routine, Start 12/23/20 12:50:00 EDT, 12/23/20 12:50:00 EDT Zofran: 4 mg, IV Push, Inj, Q4H, PRN for Nausea, Routine, Start 12/23/20 12:49:00 EDT, 12/23/20 12:49:00 EDT Zofran: 4 mg, IV Push, Inj, Q8H, order duration: 3 Time(s), PRN for Nausea/Vomiting, Routine, Start 12/23/20 9:54:00 EDT, Stop Limited # of times, 12/23/20 9:54:00 EDT aspirin: 81 mg, Oral, EC Tab, BID, Routine, Start 12/23/20 9:54:00 EDT, 12/23/20 9:54:00 EDT atorvastatin: 10 mg, Oral, At Bedtime, Routine, Start 12/23/20 21:00:00 EDT, 12/23/20 12:50:00 EDT clindamycin: 600 mg 50 mL, IV Piggyback, Inj, 1-Time, infuse over 30 Minute(s), Routine, Start 12/15/14 7:00:00 EDT, Stop 12/15/14 7:00:00 EDT, 100 mL/Hr cyclobenzaprine: 5 mg, Oral, QPM, Routine, Start 12/23/20 21:00:00 EDT, 12/23/20 12:50:00 EDT dicyclomine: 10 mg, Oral, Daily, Routine, Start 12/23/20 12:50:00 EDT, 12/23/20 12:50:00 EDT diphenhydrAMINE: 12.5 mg, Oral, Tab, At Bedtime, PRN for Insomnia, Start 12/23/20 9:33:00 EDT docusate calcium: 240 mg, Oral, Cap, Daily, PRN for Constipation, Routine, Start 12/23/20 12:49:00 EDT, 12/23/20 12:49:00 EDT gabapentin: 300 mg, Oral, Cap, At Bedtime, Routine, Start 12/23/20 21:00:00 EDT, 12/23/20 9:54:00 EDT gentamicin: 80 mg 100 mL, IV Piggyback, Inj, 1-Time, infuse over 30 Minute(s), Routine, Start 12/15/14 7:00:00 EDT, Stop 12/15/14 7:00:00 EDT, 200 mL/Hr haloperidol: 1 mg, IV Push, Inj, 1-Time, PRN for Nausea/Vomiting, Routine, Start 12/23/20 9:53:00 EDT, 12/23/20 9:53:00 EDT losartan: 50 mg, Oral, Daily, Routine, Start 12/23/20 12:50:00 EDT, 12/23/20 12:50:00 EDT metoclopramide: 5 mg, IV Push, Inj, Q4H, PRN for Nausea/Vomiting, Routine, Start 12/23/20 9:54:00 EDT, 12/23/20 9:54:00 EDT naloxone: 0.1 mg, IV Push, Inj, Q5Min, PRN for Oversedation, Routine, Start 12/23/20 9:54:00 EDT, 12/23/20 9:54:00 EDT ondansetron: 4 mg, IV Push, Inj, 1-Time, PRN for Nausea/Vomiting, Routine, Start 12/23/20 9:53:00 EDT, 12/23/20 9:53:00 EDT oxyCODONE: 10 mg, Oral, Tab, Q4H, PRN for Pain (Severe 7-10), Routine, Start 12/23/20 9:54:00 EDT, 12/23/20 9:54:00 EDT oxyCODONE: 5 mg, Oral, Tab, Q4H, PRN for Pain (Moderate 4-6), Routine, Start 12/23/20 9:54:00 EDT, 12/23/20 9:54:00 EDT polycarbophil: 1,250 mg, Oral, Tab, Daily, Routine, Start 12/23/20 12:50:00 EDT, 12/23/20 12:50:00 EDT ropivacaine 400 mL: Inj, IntraLesional, for 50 Hour(s), Stop date 12/25/20 10:15:00 EDT, Physician Stop, 12/23/20 8:16:00 EDT, 96.36 kg traMADol: 50 mg, Oral, Tab, Q6H, Routine, Start 12/23/20 12:00:00 EDT, 12/23/20 9:54:00 EDT traZODone: 50 mg, Oral, Tab, At Bedtime, PRN for Insomnia, Routine, Start 12/23/20 12:49:00 EDT, 12/23/20 12:49:00 EDT vitamin E: 400 Int Units, Oral, Daily, Routine, Start 12/23/20 12:50:00 EDT, 12/23/20 12:50:00 EDT Incomplete Zinc: 50 mg, Oral, Daily, Routine, Start 12/23/20 12:50:00 EDT, 12/23/20 12:50:00 EDT potassium gluconate 595 mg (99 mg elemental potassium) oral tablet: 1 Tab, Oral, Tab, Daily, Routine, Start 12/23/20 12:50:00 EDT, 12/23/20 12:50:00 EDT Documented Medications Documented Actos: 30 mg, Oral, Daily, 0 Refill(s) Benadryl: 25 mg, Oral, At Bedtime, 0 Refill(s) Fiber Lax 625 mg oral tablet: 2 Tab, Oral, Tab, Daily, # 240 Tab, 0 Refill(s) Plavix: 75 mg, Oral, Daily, 0 Refill(s) Tylenol: 1,000 mg, Oral, Tab, Q8HInt, 0 Refill(s) Vitamin B6: 400 mg, Oral, Daily, 0 Refill(s) Vitamin D3: 125 mcg, Oral, Daily, 0 Refill(s) Zinc: 50 mg, Oral, Daily, 0 Refill(s) aspirin 81 mg oral delayed release tablet: 1 Tab, Oral, EC Tab, BID, 0 Refill(s) cyclobenzaprine: 5 mg, Oral, QPM, 0 Refill(s) dicyclomine: 10 mg, Oral, Daily, 0 Refill(s) losartan: 50 mg, Oral, Daily, 0 Refill(s) potassium gluconate 595 mg (99 mg elemental potassium) oral tablet: 1 Tab, Oral, Tab, Daily, # 100 Tab, 0 Refill(s) simvastatin: 20 mg, Oral, Daily, 0 Refill(s) traMADol: 50 mg, Oral, BID, 0 Refill(s) vitamin E: 400 Int Units, Oral, Daily, 0 Refill(s), Home Medications (16) Active Actos 30 mg, Oral, Daily aspirin 81 mg oral delayed release tablet 81 mg = 1 Tab, Oral, BID Benadryl 25 mg, Oral, At Bedtime cyclobenzaprine 5 mg, Oral, QPM dicyclomine 10 mg, Oral, Daily Fiber Lax 625 mg oral tablet 1,250 mg = 2 Tab, Oral, Daily losartan 50 mg, Oral, Daily Plavix 75 mg, Oral, Daily potassium gluconate 595 mg (99 mg elemental potassium) oral tablet 1 Tab, Oral, Daily simvastatin 20 mg, Oral, Daily traMADol 50 mg, Oral, BID Tylenol 1,000 mg = 2 Tab, Oral, Q8HInt Vitamin B6 400 mg, Oral, Daily Vitamin D3 125 mcg, Oral, Daily vitamin E 400 Int Units, Oral, Daily Zinc 50 mg, Oral, Daily , Medications (41) Active Scheduled: (15) acetaminophen 500 mg tab 1,000 mg 2 Tab, Oral, Q8HInt ascorbic acid 500 mg, Oral, Daily aspirin EC 81 mg tab 81 mg 1 Tab, Oral, BID atorvastatin 10 mg, Oral, At Bedtime cholecalciferol 125 mcg, Oral, Daily clopidogrel 75 mg, Oral, Daily cyclobenzaprine 5 mg, Oral, QPM dicyclomine 10 mg, Oral, Daily gabapentin 300 mg cap 300 mg 1 Cap, Oral, At Bedtime losartan 50 mg, Oral, Daily pioglitazone 30 mg, Oral, Daily polycarbophil 1,250 mg, Oral, Daily pyridoxine 400 mg, Oral, Daily traMADol 50 mg tab 50 mg 1 Tab, Oral, Q6H vitamin E 400 Int Units, Oral, Daily Continuous: (3) NaCl 0.9% 1,000 mL 1,000 mL, IntraVENous, 100 mL/Hr NaCl 0.9% 1,000 mL 1,000 mL, IntraVENous, 50 mL/Hr ropivacaine 0.2% 400 mL , IntraLesional, 8 mL/Hr PRN: (23) al hydrox/mag hydrox/simeth 30 mL liq 30 mL, Oral, Q6H albuterol-ipratropium inh 3 mL 3 mL, Nebulized Inhalation, Q4H bisacodyl 10 mg supp 10 mg 1 Supp, Rectal, Daily diphenhydrAMINE 25 mg tab 12.5 mg 0.5 Tab, Oral, At Bedtime diphenhydrAMINE 25 mg tab 25 mg 1 Tab, Oral, On-CALL docusate calcium 240 mg cap 240 mg 1 Cap, Oral, Daily fentaNYL 100 mcg/2 mL inj 25 mcg 0.5 mL, IV Push, Q5Min fentaNYL 100 mcg/2 mL inj 50 mcg 1 mL, IV Push, Q5Min haloperidol 5 mg/1 mL inj 1 mg 0.2 mL, IV Push, 1-Time HYDROmorphone 1 mg/1 mL inj 0.5 mg 0.5 mL, IV Push, Q10Min magnesium hydroxide 8% liq 30 mL 15 mL, Oral, Q6H metaxalone 800 mg tab 800 mg 1 Tab, Oral, TID metoclopramide 10 mg/2 mL inj 5 mg 1 mL, IV Push, Q4H naloxone 0.4 mg/1 mL inj 0.1 mg 0.25 mL, IV Push, Q5Min ondansetron 4 mg/2 mL inj 4 mg 2 mL, IV Push, Q8H ondansetron 4 mg/2 mL inj 4 mg 2 mL, IV Push, 1-Time ondansetron 4 mg/2 mL inj 4 mg 2 mL, IV Push, Q4H oxyCODONE 5 mg tab 5 mg 1 Tab, Oral, Q4H oxyCODONE 5 mg tab 10 mg 2 Tab, Oral, Q4H phenol 1.4% throat spray 5 [place], Oral, Q2H promethazine 25 mg tab 12.5 mg 0.5 Tab, Oral, Q6H promethazine 25 mg/1 mL inj 12.5 mg 0.5 mL, IV Push, Q6H traZODone 50 mg tab 50 mg 1 Tab, Oral, At Bedtime Problem list: Active Problems (11) Arthritis CAD (coronary artery disease) COVID-19 Diabetes Diverticulitis High cholesterol History of obstructive sleep apnea Hypertension IBS (irritable bowel syndrome) Kidney stones RA (rheumatoid arthritis) Histories Family History: Family history is significant for DM, HTN, CAD and cancer Procedure history: Cholecystectomy (09124307). Hernia ([id number]). Rotator cuff right ([id number]). Knee left partial ([id number]). right upper thigh boil. lymph node drained from right arm pit. Colonoscopy ([id number]). EGD - Esophagogastroduodenoscopy ([id number]). heart cath. cardiac stent. Social History Patient is and has twins a boy and a girl. There is no history of smoking or drinking alcohol. Physical Examination VS/Measurements Vital Signs/Vital Measures 12/23/2020 11:13 EDT Systolic Blood Pressure 151 mmHg HI Diastolic Blood Pressure 63 mmHg Temperature, Fahrenheit 97.0 Deg F Heart Rate Monitored 79 bpm Oxygen Saturation 97 % 12/23/2020 11:00 EDT Systolic Blood Pressure 147 mmHg HI Diastolic Blood Pressure 70 mmHg Mean Arterial Pressure (MAP)-BMDI 100 Temperature Source Temporal artery scanning Temperature Mode Fahrenheit Temperature, Fahrenheit 97.2 Deg F Clinical Temperature, C 36.2 Deg C Heart Rate Monitored 77 bpm Oxygen Saturation 98 % Oxygen Therapy Mode Room air 12/23/2020 10:50 EDT Systolic Blood Pressure 153 mmHg HI Diastolic Blood Pressure 70 mmHg Mean Arterial Pressure (MAP)-BMDI 100 Heart Rate Monitored 74 bpm Oxygen Saturation 98 % 12/23/2020 10:40 EDT Systolic Blood Pressure 120 mmHg Diastolic Blood Pressure 59 mmHg LOW Mean Arterial Pressure (MAP)-BMDI 82 Heart Rate Monitored 73 bpm Respiratory Rate 17 Breaths/Min Oxygen Saturation 99 % 12/23/2020 10:30 EDT Systolic Blood Pressure 117 mmHg Diastolic Blood Pressure 64 mmHg Mean Arterial Pressure (MAP)-BMDI 83 Heart Rate Monitored 73 bpm Respiratory Rate 18 Breaths/Min Oxygen Saturation 98 % Oxygen Therapy Mode Room air 12/23/2020 10:25 EDT Systolic Blood Pressure 119 mmHg Diastolic Blood Pressure 66 mmHg Mean Arterial Pressure (MAP)-BMDI 85 Heart Rate Monitored 76 bpm Respiratory Rate 20 Breaths/Min Oxygen Saturation 98 % 12/23/2020 10:20 EDT Systolic Blood Pressure 120 mmHg Diastolic Blood Pressure 61 mmHg Mean Arterial Pressure (MAP)-BMDI 86 Heart Rate Monitored 78 bpm Respiratory Rate 19 Breaths/Min Oxygen Saturation 98 % 12/23/2020 10:15 EDT Systolic Blood Pressure 116 mmHg Diastolic Blood Pressure 61 mmHg Mean Arterial Pressure (MAP)-BMDI 84 Heart Rate Monitored 84 bpm Respiratory Rate 17 Breaths/Min Oxygen Saturation 98 % 12/23/2020 10:10 EDT Systolic Blood Pressure 121 mmHg Diastolic Blood Pressure 63 mmHg Mean Arterial Pressure (MAP)-BMDI 87 Heart Rate Monitored 77 bpm Respiratory Rate 15 Breaths/Min Oxygen Saturation 99 % 12/23/2020 10:05 EDT Systolic Blood Pressure 121 mmHg Diastolic Blood Pressure 63 mmHg Mean Arterial Pressure (MAP)-BMDI 87 Heart Rate Monitored 72 bpm Respiratory Rate 14 Breaths/Min Oxygen Saturation 99 % 12/23/2020 10:00 EDT Heart Rate Monitored 74 bpm Oxygen Saturation 99 % 12/23/2020 9:56 EDT Systolic Blood Pressure 128 mmHg Diastolic Blood Pressure 65 mmHg Mean Arterial Pressure (MAP)-BMDI 90 Temperature Source Temporal artery scanning Temperature Mode Fahrenheit Temperature, Fahrenheit 97.8 Deg F Clinical Temperature, C 36.6 Deg C Heart Rate Monitored 82 bpm Respiratory Rate 12 Breaths/Min LOW Oxygen Saturation 98 % Oxygen Therapy Mode Nasal cannula Oxygen Flow Rate 2 Liter/Min 12/23/2020 7:45 EDT Systolic Blood Pressure 120 mmHg Diastolic Blood Pressure 72 mmHg Heart Rate Monitored 74 bpm Respiratory Rate 16 Breaths/Min Oxygen Saturation 100 % Oxygen Therapy Mode Nasal cannula Oxygen Flow Rate 2 Liter/Min 12/23/2020 7:39 EDT Systolic Blood Pressure 155 mmHg HI Diastolic Blood Pressure 83 mmHg Heart Rate Monitored 89 bpm Respiratory Rate 17 Breaths/Min Oxygen Saturation 100 % Oxygen Therapy Mode Nasal cannula Oxygen Flow Rate 2 Liter/Min 12/23/2020 7:35 EDT Systolic Blood Pressure 155 mmHg HI Diastolic Blood Pressure 82 mmHg Heart Rate Monitored 79 bpm Respiratory Rate 16 Breaths/Min Oxygen Saturation 100 % Oxygen Therapy Mode Nasal cannula Oxygen Flow Rate 2 Liter/Min 12/23/2020 6:22 EDT Systolic Blood Pressure 158 mmHg HI Diastolic Blood Pressure 72 mmHg Temperature Source Temporal artery scanning Temperature Mode Fahrenheit Temperature, Fahrenheit 97.8 Deg F Clinical Temperature, C 36.6 Deg C Heart Rate Monitored 78 bpm Respiratory Rate 16 Breaths/Min Oxygen Saturation 98 % Oxygen Therapy Mode Room air General: Alert and oriented, No acute distress. Eye: Pupils are equal, round and reactive to light, Normal conjunctiva, Vision unchanged. HENT: Normocephalic, Tympanic membranes are clear, Normal hearing, Oral mucosa is moist, No pharyngeal erythema, No sinus tenderness. Neck: Supple, Non-tender, No carotid bruit, No jugular venous distention, No lymphadenopathy, No thyromegaly. Respiratory: Lungs are clear to auscultation, Respirations are non-labored, Breath sounds are equal, Symmetrical chest wall expansion, No chest wall tenderness. Cardiovascular: Normal rate, Regular rhythm, No murmur, No gallop, Good pulses equal in all extremities, Normal peripheral perfusion, No edema. Gastrointestinal: Soft, Non-tender, Non-distended, Normal bowel sounds, No organomegaly. Genitourinary: No costovertebral angle tenderness, No inguinal tenderness, No urethral discharge, No lesions. Lymphatics: No lymphadenopathy neck, axilla, groin. Musculoskeletal: Normal range of motion, Normal strength, No tenderness, No swelling, No deformity, Normal gait. Integumentary: Warm, [place], Intact, No pallor, No rash, WOUND STABLE. Neurologic: Alert, Oriented, Normal sensory, Normal motor function, No focal deficits, Cranial Nerves II-XII are grossly intact, Normal deep tendon reflexes. Psychiatric: Cooperative, Appropriate mood & affect, Normal judgment, Non-suicidal. Review / Management Results review: Lab results 12/23/2020 9:59 EDT Glucose POC2 191 mg/dL HI 12/23/2020 5:37 EDT Glucose POC2 150 mg/dL HI . Impression and Plan Diagnosis Unilateral primary osteoarthritis, right knee - Admitting, Medical. Status post total knee replacement, right - Admitting, Medical. Right knee pain - Admitting, Medical. Hypertension - Discharge, Medical. High cholesterol - Discharge, Medical. Diabetes - Discharge, Medical. RA (rheumatoid arthritis) - Discharge, Medical. IBS (irritable bowel syndrome) - Discharge, Medical. History of obstructive sleep apnea - Discharge, Medical. COVID-19 - Discharge, Medical. CAD (coronary artery disease) - Discharge, Medical. Course: Plan/Respirex @ BS and encourage patient to use. Sleep apnea precautions if needed. C-pap at night if needed. Hold all BP meds if BSP < 130 MMHg. If SBP < 90 mmHg, you may give 500 ml NS IVF over one hour. ACT: CONSULT PT/OT as per Dr. cook rec. For urinary retention use bladder scanner, you may anchor FC. If no or low UOP you may give 250 mL NS IV over one hour. AM Labs BMP & Hgb/HCT. If pt. spikes fever > 101* F, encourage pt to use Respirex first, then you may give Tylenol 650 mg PO/ND x 1. If no response in 2 hours, you may get blood cx. x2, chest x-ray, sputum CX, S, gram stain x3, UA, C&S. Patient may have chloroseptic spray or throat lozenges for soar throat. DVT prophylaxis. If at any time the HGB is less than 8 type and cross then transfuse 2 units of PRBCs. Premedicate with Tylenol 650 mg PO and Benadryl 25mg PO. Electrolytes Replacement Protocol. Pain control. Close monitoring fluid and electrolytes. Fall risk precautions. Sleep apnea precautions. Stress ulcer prophylaxis. Date 12/23/2020 Time 12:35 PM Hospitalist medicine consult addendum, internal medicine, Adi Aguilar MD -Seen and reexamined -Awake alert cooperative responsive under no acute distress -Pain well controlled -High spirit -No chest pain or trouble breathing -Participating well with PT/OT -No headache or dizziness when patient got up with PT/OT -No soreness after PT/OT -Released by PT/OT to go home -Tolerating well oral p.o. intake -No nausea or vomiting -No BM but passing gas -No trouble with urination -Urine output is adequate -Vitals reviewed -Released by Dr Hartman to go home -Discharge medications seen, reviewed and reconciled -DVT prophylaxis and anticoagulation as per Dr Hartman protocol -Patient is medically stable -Patient's wants and excited to go home [id number] patient seen and examined and reexamined, medical record reviewed, vitals reviewed, medications seen reviewed and reconciled, discussed with Pharm.D., discussed with the patient and with the staff, discussed with PT/OT, orders placed, consult note dictated . Orders Order Profile (Selected) Documented Medications Documented Actos: 30 mg, Oral, Daily, 0 Refill(s) Benadryl: 25 mg, Oral, At Bedtime, 0 Refill(s) Fiber Lax 625 mg oral tablet: 2 Tab, Oral, Tab, Daily, # 240 Tab, 0 Refill(s) Plavix: 75 mg, Oral, Daily, 0 Refill(s) Tylenol: 1,000 mg, Oral, Tab, Q8HInt, 0 Refill(s) Vitamin B6: 400 mg, Oral, Daily, 0 Refill(s) Vitamin D3: 125 mcg, Oral, Daily, 0 Refill(s) Zinc: 50 mg, Oral, Daily, 0 Refill(s) aspirin 81 mg oral delayed release tablet: 1 Tab, Oral, EC Tab, BID, 0 Refill(s) cyclobenzaprine: 5 mg, Oral, QPM, 0 Refill(s) dicyclomine: 10 mg, Oral, Daily, 0 Refill(s) losartan: 50 mg, Oral, Daily, 0 Refill(s) potassium gluconate 595 mg (99 mg elemental potassium) oral tablet: 1 Tab, Oral, Tab, Daily, # 100 Tab, 0 Refill(s) simvastatin: 20 mg, Oral, Daily, 0 Refill(s) traMADol: 50 mg, Oral, BID, 0 Refill(s) vitamin E: 400 Int Units, Oral, Daily, 0 Refill(s). Rx for pain as per Dr. Hartman recommendations. documented in this encounter Plan of Treatment Not on file documented as of this encounter Visit Diagnoses Not on filedocumented in this encounter
--- OUTSIDE RECORDS SUMMARY | 2024-09-06 09:14 | XMS_ITS | Encounter Summary ---
Author Organization [facility] Address [address] [place] [id number] Care Team Providers Care Information Management Specialist Name Role Phone Unavailable Primary Care Provider Unavailabl e Encounter Details Date Type Department Care Team (Late st Contact Info) Description 12/16/2020 Transcribed Document [facility] Family Medicine [facility] [place] [address] ProviderJaime MD [address] [place] [address] Social History Tobacco Use Types Packs/Day Years Used Date Smoking Tobacco: Never Assessed Sex and Gender Information Value Date Recorded Sex Assigned at Not on file Legal Sex Male 5:28 PM CDT Gender Identity Not on file Sexual Orientation Not on file documented as of this encounter Miscellaneous Notes * Cerner Conversion Note - Jaime ProviderMD - 12/16/2020 6:51 AM CDT PAT Adult Entered On: 12/16/2020 6:55 EDT Performed On: 12/16/2020 6:51 EDT by CIARA WOODS RN Vital Measurements Temperature Source : Temporal artery scanning Temperature Mode : Fahrenheit Temperature, Fahrenheit : 97.2 Deg F Clinical Temperature, C : 36.2 Deg C Peripheral Pulse Rate : 84 bpm Pulse Rhythm : Regular Respiratory Rate : 16 Breaths/Min Systolic Blood Pressure : 190 mmHg (HI) Diastolic Blood Pressure : 78 mmHg Oxygen Saturation : 98 % Oxygen Therapy Mode : Room air CIARA WOODS RN - 12/16/2020 6:51 EDT Pain Assessment Pain Assessment : Initial assessment Pain Scale Used : 0-10 Scale Location : Knee, right CIARA WOODS RN - 12/16/2020 6:51 EDT Height and Weight, Clinical Dosing Height Source : Stated Height Entry Format : Frio Height, Feet : 5 ft(Converted to: 152 cm, 60 Inch) Height, Inches : 9 Inch(Converted to: 0 ft 9 Inch, 22.86 cm) Clinical Height : 175.26 cm Weight Source : Standing scale Weight Entry Format : Frio Clinical Dosing Weight : 96.93 kg Weight, Pounds : 213 lb Weight, Ounces : 4 oz Body Surface Area (BSA) : 2.12 m2 Body Mass Index : 31.6 kg/m2 (HI) Graham Body Weight : 70 kg CIARA WOODS RN - 12/16/2020 6:51 EDT Health Histories Smoking Status : Never (less than 100 in lifetime; none in last 30 days) Smokeless Tobacco Status : Never CIARA WOODS RN - 12/16/2020 6:51 EDT Social History (As Of: 12/16/2020 06:55:51 EDT) Tobacco: Smoking Status Never smoker. (Last [...] COVID-19 in the last 14 days? : PreProcedure/NON-PUI COVID-19 Testing Does the Patient state known exposure to a COVID-19 positive case in the last 14 days? : No Patient Vaccinated for COVID-19 : Not vaccinated Does Patient want a COVID-19 Vaccine? : No CIARA WOODS RN - 12/16/2020 6:51 EDT Infectious Disease Risk Screening Grid Cough < 2 wks of unknown origin : NO Cough > 2 weeks : NO Blood in Sputum : NO Fever or self-reported Fever : NO Rash of unknown origin : NO Headache : NO Stiff neck : NO Night Sweats : NO Unexplained Weight Loss : NO Diarrhea (3 episode per day) : NO CIARA WOODS RN - 12/16/2020 6:51 EDT Physical contact outside [place] in the last 30 days : No Hospitalized in Foreign Country : No Infectious Disease History : Influenza INF Disease TB Screening Calc : 0 INF Disease Recent Travel Calc : 0 CIARA WOODS RN - 12/16/2020 6:51 EDT COVID19 PreProcedure Screening Is this an Emergent or Add on Procedure? : No Date PreProcedure COVID-19 test known? : Yes Date of PreProcedure COVID-19 : 12/14/2020 EDT Has patient been isolated since the test : Yes Exposed to COVID19 symptoms since test? : No CIARA WOODS RN - 12/16/2020 6:51 EDT Anesthesia/Transfusion History Family History of Anesthesia Reaction : No prior transfusion(s) Transfusion History : Prior anesthesia without reaction Family History of Anesthesia Reaction : None CIARA WOODS RN - 12/16/2020 6:51 EDT Functional Assessment Functional ADL Evaluation Index EBN Bathing : Independent (2) Dressing : Independent (2) Toileting : Independent (2) Transferring Bed or Chair : Independent (2) Continence : Independent (2) Feeding : Independent (2) CIARA WOODS RN - 12/16/2020 6:51 EDT ADL Index Score : 12 CIARA WOODS RN - 12/16/2020 6:51 EDT Advance Directive Patient has Advance Directive *Q : Yes, Advance Directive not with the patient Advance Directive Type : Living will Copy Advance Directive Verified/on Chart : No CIARA WOODS RN - 12/16/2020 6:51 EDT Spiritual/Cultural Needs Any Spiritual/Cultural Needs or Requests : No CIARA WOODS RN - 12/16/2020 6:51 EDT [place] Suicide Severity Rating Scale (C-SSRS) CSSRS Past Month Wish to be : No CSSRS Past Month Suicidal Thoughts : No CSSRS Lifetime Suicide Behavior : No Suicide Severity Rating Score : 0 Suicide Severity Rating : No Additional Care Required at this time CIARA WOODS RN - 12/16/2020 6:51 EDT Psychosocial History Do You Have a History of the Following? : Patient denies history Currently in Unsafe Situation : No CIARA WOODS RN - 12/16/2020 6:51 EDT Teaching/Learning Assessment Barriers To Learning : None evident Individuals Taught : Patient Readiness to Learn : Cooperative Readiness to Learn : Explanation Learning Style Preferences Patient : Printed materials, Verbal explanation CIARA WOODS RN - 12/16/2020 6:51 EDT Education Topics, Periop Preadmission Perioperative Education Grid IV's : Verbalizes understanding NPO Status/Directions : Verbalizes understanding Pain Management : Verbalizes understanding Preprocedure Preparations : Verbalizes understanding Preprocedure Tests/Labs : Verbalizes understanding Responsible Adult : Verbalizes understanding CIARA WOODS RN - 12/16/2020 6:51 EDT General Info Arrived From : Home Mode of Arrival on Unit : Ambulatory Legal Guardian : Unaccompanied Support Person/Pt Rep Name : Marcie Want Family/Rep/Phys Notified of Admit : No Emergency Contact #1 : Marcie Emergency Contact #1 Emergency Contact #1 Relationship : Emergency Contact #2 : . Emergency Contact #2 Phone Number : . Emergency Contact #2 Relationship : . Information Obtained From : Patient Primary Language : Kyrgyz Preferred Communication Mode : Verbal Communication Barrier : None Agency Development Manager Needed : No CIARA WOODS RN - 12/16/2020 6:51 EDT Yang Scale Yang Sensory Perception : No impairment Yang Moisture : Rarely moist Yang Activity : Walks frequently Yang Mobility : Slightly limited Yang Nutrition : Excellent Yang Friction and Shear : No apparent problem Yang Score : 22 CIARA WOODS RN - 12/16/2020 6:51 EDT Sleep Apnea Risk Assmt BiPAP/CPAP Ordered for Home Use : No Hx of Obstructive Sleep Apnea Diagnosis : Yes Age over 50 Years Old : Yes Gender Male : Yes CIARA WOODS RN - 12/16/2020 6:51 EDT Pain Scale Intensity : 6 CIARA WOODS RN - 12/16/2020 6:51 EDT Image 4 - Images currently included in the form version of this document have not been included in the text rendition version of the form. documented in this encounter Plan of Treatment Not on file documented as of this encounter Visit Diagnoses Not on filedocumented in this encounter
--- OUTSIDE RECORDS SUMMARY | 2024-09-06 09:14 | XMS_ITS | Encounter Summary ---
Author Organization [facility] Address [address] [place] [address] Care Team Providers Care Tomato Grader Name Role Phone Unavailable Primary Care Provider Unavailabl e Encounter Details Date Type Department Care Team (Late st Contact Info) Description 12/09/2020 Transcribed Document [facility] [place] [address] ProviderJaime MD [address] [place], [place] [address] Social History Tobacco Use Types Packs/Day Years Used Date Smoking Tobacco: Never Assessed Sex and Gender Information Value Date Recorded Sex Assigned at Not on file Legal Sex Male 5:28 PM CDT Gender Identity Not on file Sexual Orientation Not on file documented as of this encounter Miscellaneous Notes * Cerner Conversion Note - Jaime ProviderMD - 12/09/2020 3:30 PM CDT Meds to Bed Enrollment Entered On: 12/09/2020 15:30 EDT Performed On: 12/09/2020 15:30 EDT by Michaela Alvarez Rn Meds to Bed Enrollment Patient Enrollment Decision: : Yes/enroll in meds to bed program Michaela Alvarez Rn - 12/09/2020 15:30 EDT documented in this encounter Plan of Treatment Not on file documented as of this encounter Visit Diagnoses Not on filedocumented in this encounter
--- OUTSIDE RECORDS SUMMARY | 2024-09-06 09:14 | XMS_ITS | Encounter Summary ---
Author Organization [facility] Address [address] [place] [address] Care Team Providers Care Motor Inspection Mechanic Name Role Phone Unavailable Primary Care Provider Unavailabl e Encounter Details Date Type Department Care Team (Late st Contact Info) Description 12/23/2020 Transcribed Document [facility] Family Medicine [facility] [place] [address] ProviderJaime MD [address] [place] [address] Social History Tobacco Use Types Packs/Day Years Used Date Smoking Tobacco: Never Assessed Sex and Gender Information Value Date Recorded Sex Assigned at Not on file Legal Sex Male 5:28 PM CDT Gender Identity Not on file Sexual Orientation Not on file documented as of this encounter Miscellaneous Notes * Cerner Conversion Note - Jaime ProviderMD - 12/23/2020 7:30 AM CDT [facility] PreOp Summary Primary Physician: KAYLA ZIMMERMAN JR, JR, MD-ORT Finalized Date/Time: 12/23/20 07:46:18 Pt. Name: AYLEEN BLACK III /Sex: 1950 Male Med Rec #: [id number] Physician: KAYLA ZIMMERMAN JR, JR, MD-ORT Financial #: [id number] Pt. Type: O Room/Bed: Admit/Disch: 12/23/20 04:16:00 - Institution: [facility] PreOp Case Times Entry 1 In Preop 12/23/20 05:15:00 Ready for Holding n/a Room Patient Ready for 12/23/20 06:42:00 Surgery Patient Out of Preop 12/23/20 07:50:00 Patient Out of n/a Holding Room Last Modified By: Georgie Boyce RN 12/23/20 07:46:17 SJAndrey PreOp Case Times Audit 12/23/20 07:46:17 Snack Foods Mixer Operator: [email or web address] Modifier: NINO <+> 1 Patient Out of Preop Finalized By: Georgie Boyce RN Document Signatures Signed By: Georgie Boyce RN 12/23/20 07:46 Electronically signed by Lakesha [facility] Conversion Overlock Elastic Attacher Cerner at 07/09/2022 10:40 AM CDT documented in this encounter Plan of Treatment Not on file documented as of this encounter Visit Diagnoses Not on filedocumented in this encounter
--- OUTSIDE RECORDS SUMMARY | 2024-09-06 09:14 | XMS_ITS | Encounter Summary ---
Author Organization [facility] Address [address] [place] [address] Care Team Providers Care Stacker Tender Name Role Phone Unavailable Primary Care Provider Unavailabl e Encounter Details Date Type Department Care Team (Late st Contact Info) Description 12/22/2020 Transcribed Document [facility] [place] [facility] [place] [address] Jaime Flores MD [address] [place], [place] [id number] Social History Tobacco Use Types Packs/Day Years Used Date Smoking Tobacco: Never Assessed Sex and Gender Information Value Date Recorded Sex Assigned at Not on file Legal Sex Male 5:28 PM CDT Gender Identity Not on file Sexual Orientation Not on file documented as of this encounter Miscellaneous Notes * Cerner Conversion Note - Jaime Flores MD - 12/22/2020 6:55 PM CDT Patient Education Materials Follows: What to expect after the Procedure: After the procedure, it is common to have: Pain and swelling. A small amount of blood or clear fluid coming from your incision for up to 7 days. Diet: Resume usual diet No alcoholic beverages while taking pain medication Drink 8-10 glasses of water a day to prevent constipation from pain medication Increase fiber to help prevent constipation. Straining can cause increased pressure and pain in your incision area Increase protein to promote healing Driving: Do not drive until your health care provider approves. Ask your health care provider when it is safe to drive if you have an immobilizer on your knee. Do not drive or operate heavy machinery while taking prescription pain medicine. Do not drive for 24 hours if you received a sedative. Activity: Do not lift anything that is heavier than 10 lb (4.5 kg) until your health care provider approves. No strenuous activity Avoid high-impact activities, including running, jumping rope, and jumping jacks. Avoid sitting for a long time without moving. Get up and move around at least every few hours. Keep legs elevated while seated and place surgery leg on 2-3 pillows, this will decrease swelling Continue doing ???tub time?? with elizondo basin tub and blue foam Zero Knee at least 3 times a day for 30 minutes at a time. More often is better. Continue using walker until cleared by physical therapy Bathing: Do not take baths, swim, or use a hot tub for one month after surgery. May shower on the third day after surgery by covering incision with Glad Brand Press and Seal saran wrap. After showering, dry off completely BEFORE removing saran wrap. Use Press and Seal saran wrap to shower for one month after surgery You must be seated to shower until you are no longer using the walker Other: Use ice therapy continuously x 48 hours, then use for 20-30 minutes at a time and leave off for 20-30 minutes at a time. Always keep a towel or cloth between the ice wrap and your skin. Please remember, to use water AND either ice or 4 frozen water bottles in the [facility] CUBE. Continue to use Incentive Spirometer 10 times an hour while awake for one month to help prevent pneumonia There is a mepilex dressing on your knee, leave this in place for 2 weeks. Continue to cover this with glad press and seal for showers. If there is any drainage after 10 days, please call the office and let us know. Sleep in the long, elizondo knee immobilizer for 10 days. ASA 81mg twice a day for 45 days, Contact a health care provider if: You have more redness, swelling, or pain around your incision. You have more fluid or blood coming from your incision. Your incision or drain site feels warm to the touch. You have pus or a bad smell coming from your incision. You have a fever. Your incision breaks open after your health care provider removes your sutures, skin glue, or adhesive tape. Your prosthesis feels loose. You have knee pain that does not go away. Get help right away if you have: Pain or swelling in your calf or thigh shortness of breath or difficulty breathing chest pain DVT: Blood Clot Blood clots are a common risk after an orthopedic surgery Symptoms: Swelling of your leg or arm, especially if one side is much worse. Warmth and redness of your leg or arm, especially if one side is much worse. Pain in your arm or leg. If the clot is in your leg, symptoms may be more noticeable or worse when you stand or walk. A feeling of pins and needles, if the clot is in the arm. The symptoms of a DVT that has traveled to the lungs (pulmonary embolism, PE) usually start suddenly and include: Shortness of breath while active or at rest. Coughing or coughing up blood or blood-tinged mucus. Chest pain that is often worse with deep breaths. Rapid or irregular heartbeat. Feeling light-headed or dizzy. Fainting. Feeling anxious. Sweating. There may also be pain and swelling in a leg if that is where the blood clot started. How is this prevented? Exercise regularly. For at least 30 minutes every day, engage in: ? Activity that involves moving your arms and legs. ? Activity that encourages good blood flow through your body by increasing your heart rate. Exercise your arms and legs every hour during long-distance travel (over 4 hours). Drink plenty of water and avoid drinking alcohol while traveling. Avoid sitting or lying in bed for long periods of time without moving your legs. Maintain a weight that is appropriate for your height. Ask your health care provider what weight is healthy for you. If you are a woman who is over 35 years of age, avoid unnecessary use of medicines that contain estrogen. These include control pills. Do not smoke, especially if you take estrogen medicines. If you need help quitting, ask your health care provider. Wear compression stockings (if told by your health care provider) to help prevent blood clots from forming. High Fiber/High Protein Diet High fiber foods: To prevent constipation Grains Whole-grain breads. Multigrain cereal. Oats and oatmeal. Brown rice. Barley. Bulgur wheat. Millet. Bran muffins. Popcorn. [place] wafer crackers. Vegetables Sweet potatoes. Spinach. Kale. Artichokes. Cabbage. Broccoli. Green peas. Carrots. Squash. Fruits Berries. Pears. Apples. Oranges. Avocados. Prunes and raisins. Dried figs. Meats and Other Protein Sources [place], kidney, amador, and soy beans. Split peas. Lentils. Nuts and seeds. Dairy Fiber-fortified yogurt. Beverages Fiber-fortified soy milk. Fiber-fortified orange juice. Other Fiber bars. High-protein foods: To promote healing High-protein foods contain 4 grams (4 g) or more of protein per serving. They include: Beef, ground sirloin (cooked) ??? 3 oz have 24 g of protein. Cheese (hard) ??? 1 oz has 7 g of protein. Chicken breast, boneless and skinless (cooked) ??? 3 oz have 13.4 g of protein. Cottage cheese ??? 1/2 cup has 13.4 g of protein. Egg ??? 1 egg has 6 g of protein. Fish, filet (cooked) ??? 1 oz has 6???7 g of protein. Garbanzo beans (canned or cooked) ??? 1/2 cup has 6???7 g of protein. Kidney beans (canned or cooked) ??? 1/2 cup has 6???7 g of protein. Curry (cooked) ??? 3 oz has 24 g of protein. Milk ??? 1 cup (8 oz) has 8 g of protein. Nuts (peanuts, pistachios, almonds) ??? 1 oz has 6 g of protein. Peanut butter ??? 1 oz has 7???8 g of protein. Pork tenderloin (cooked) ??? 3 oz has 18.4 g of protein. Pumpkin seeds ??? 1 oz has 8.5 g of protein. Soybeans (roasted) ??? 1 oz has 8 g of protein. Soybeans (cooked) ??? 1/2 cup has 11 g of protein. Soy milk ??? 1 cup (8 oz) has 5???10 g of protein. Soy or vegetable katy ??? 1 katy has 11 g of protein. Price seeds ??? 1 oz has 5.5 g of protein. Tofu (firm) ??? 1/2 cup has 20 g of protein. Tuna (canned in water) ??? 3 oz has 20 g of protein. Yogurt ??? 6 oz has 8 g of protein. Fall Prevention Use night lights. Install grab bars by the toilet and in the tub and shower. Do not use towel bars as grab bars. Use non-skid mats or decals on the floor of the tub or shower. If you need to sit down while you are in the shower, use a plastic, non-slip stool. Keep the floor dry. Immediately clean up any water that spills on the floor. Remove soap buildup in the tub or shower on a regular basis. Remove throw rugs and other tripping hazards from the floor. Place frequently used items in [id number] places Keep electrical cables out of the way. Do not leave any items on the stairs. Make sure that there are handrails on both sides of the stairs. Fix handrails that are broken or loose. Make sure that handrails are as long as the stairways. Check any carpeting to make sure that it is firmly attached to the stairs. Fix any carpet that is loose or worn. Avoid having throw rugs at the top or bottom of stairways, or secure the rugs with carpet tape to prevent them from moving. Wear closed-toe shoes that fit well and support your feet. Wear shoes that have rubber soles or low heels. Use mobility aids as needed, such as canes, walkers, scooters, and crutches. Turn on lights if it is dark. Replace any light bulbs that burn out. Set up furniture so that there are clear paths. Keep the furniture in the same spot. Be aware of any and all pets. Review your medicines with your healthcare provider. Some medicines can cause dizziness or changes in blood pressure, which increase your risk of falling. Hand Washing You should wash your hands whenever you think they are dirty. You should also wash your hands: After: ? Working or playing outside. ? Touching an animal or its toys or leash. ? Handling livestock. ? Using the bathroom. ? Using household deadener or toxic chemicals. ? Touching or taking out the garbage. ? Touching anything dirty around your home. ? Handling soiled clothes or rags. ? Taking care of a sick child. This includes touching used tissues, toys, and clothes. ? Sneezing, coughing, or blowing your nose. ? Using public transportation. ? Shaking hands. ? Using a phone, including your mobile phone. ? Touching money. Before and after: ? Preparing food. ? Feeding a baby or young child. ? Eating. ? Visiting or taking care of someone who is sick. ? Changing a diaper. ? Changing a bandage (dressing) or taking care of an injury or wound. ? Giving or taking medicine. If soap and clean water are not available, use an alcohol-based wipe, spray, or hand gel. Use a hand-sanitizing agent that contains at least 60% alcohol. If you are preparing food, hand sanitizers are not recommended as a substitute for hand washing. Walker Use To Walk With a Front-Wheeled Walker: 1. Slide your front-wheeled walker one step-length in front of you. Your toes should be farther forward than the back legs of your walker. 2. Hold on to the walker for support, and step your weaker (surgery) leg into the middle of the walker. 3. Step your stronger leg forward to land next to your weaker leg. 4. Repeat the process for each step. Always keep both feet within the width of the walker's legs or wheels. When using your walker, you should not feel like you need to lean forward or to the side to keep your hands on the handgrips. Make sure you are following any weight-bearing instructions that your health care provider has given you. Be careful not to let the walker get too far ahead of you as you walk. If your walker does not glide well over carpet, consider cutting an X into two tennis balls and placing the balls over the back legs of your walker. To Use a Walker to Step Up: 1. Put all four legs of the walker on the curb or step. 2. Get your feet as close to the curb or step as you can. 3. Test the steadiness of the walker by pressing down on the handgrips. 4. If the walker is steady, press down on it with your hands as you step up with your stronger leg. 5. Step up with your weaker leg. To Use a Walker to Step Down: 1. Put all four legs of the walker on the surface that is lower than the curb or step. 2. Get your feet as close to the curb or step as you can. 3. Test the steadiness of the walker by pressing down on the handgrips. 4. If the walker is steady, press down on it with your hands as you step down with your weaker leg. 5. Step down with your stronger leg. Knee Immobilizer Brace: Adjust the brace as often as needed while wearing it. It should be firm but not tight. Signs that the brace is too tight include: ? Puffiness (swelling). ? Numbness. ? Color change in your foot or ankle. ? Increased pain. Pharmacology General Anesthesia, Adult, Care After This sheet gives you information about how to care for yourself after your procedure. Your health care provider may also give you more specific instructions. If you have problems or questions, contact your health care provider. What can I expect after the procedure? After the procedure, the following side effects are common: ??? Pain or discomfort at the IV site. ??? Nausea. ??? Vomiting. ??? Sore throat. ??? Trouble concentrating. ??? Feeling cold or chills. ??? Weak or tired. ??? Sleepiness and fatigue. ??? Soreness and body aches. These side effects can affect parts of the body that were not involved in surgery. Follow these instructions at home: For at least 24 hours after the procedure: ??? Have a responsible adult stay with you. It is important to have someone help care for you until you are awake and alert. ??? Rest as needed. ??? Do not: ? Participate in activities in which you could fall or become injured. ? Drive. ? Use heavy machinery. ? Drink alcohol. ? Take sleeping pills or medicines that cause drowsiness. ? Make important decisions or sign legal documents. ? Take care of children on your own. Eating and drinking ??? Follow any instructions from your health care provider about eating or drinking restrictions. ??? When you feel hungry, start by eating small amounts of foods that are soft and easy to digest (bland), such as toast. Gradually return to your regular diet. ??? Drink enough fluid to keep your urine pale yellow. ??? If you vomit, rehydrate by drinking water, juice, or clear broth. General instructions ??? If you have sleep apnea, surgery and certain medicines can increase your risk for breathing problems. Follow instructions from your health care provider about wearing your sleep device: ? Anytime you are sleeping, including during daytime naps. ? While taking prescription pain medicines, sleeping medicines, or medicines that make you drowsy. ??? Return to your normal activities as told by your health care provider. Ask your health care provider what activities are safe for you. ??? Take [id number] and prescription medicines only as told by your health care provider. ??? If you smoke, do not smoke without supervision. ??? Keep all follow-up visits as told by your health care provider. This is important. Contact a health care provider if: ??? You have nausea or vomiting that does not get better with medicine. ??? You cannot eat or drink without vomiting. ??? You have pain that does not get better with medicine. ??? You are unable to pass urine. ??? You develop a skin rash. ??? You have a fever. ??? You have redness around your IV site that gets worse. Get help right away if: ??? You have difficulty breathing. ??? You have chest pain. ??? You have blood in your urine or stool, or you vomit blood. Summary ??? After the procedure, it is common to have a sore throat or nausea. It is also common to feel tired. ??? Have a responsible adult stay with you for the first 24 hours after general anesthesia. It is important to have someone help care for you until you are awake and alert. ??? When you feel hungry, start by eating small amounts of foods that are soft and easy to digest (bland), such as toast. Gradually return to your regular diet. ??? Drink enough fluid to keep your urine pale yellow. ??? Return to your normal activities as told by your health care provider. Ask your health care provider what activities are safe for you. This information is not intended to replace advice given to you by your health care provider. Make sure you discuss any questions you have with your health care provider. Document Revised: 03/16/2018 Document Reviewed: 10/27/2017 [employer] Patient Education ? 2020 [employer] documented in this encounter Plan of Treatment Not on file documented as of this encounter Visit Diagnoses Not on filedocumented in this encounter
--- OUTSIDE RECORDS SUMMARY | 2024-09-06 09:14 | XMS_ITS | Encounter Summary ---
Author Organization [facility] Address [address] [place] [address] Care Team Providers Care Activity Leader Name Role Phone Unavailable Primary Care Provider Unavailabl e Encounter Details Date Type Department Care Team (Late st Contact Info) Description 12/23/2020 Transcribed Document [facility] [place] [address] [place] [address] ProviderJaime MD [address] [place], [place] [id number] Social History Tobacco Use Types Packs/Day Years Used Date Smoking Tobacco: Never Assessed Sex and Gender Information Value Date Recorded Sex Assigned at Not on file Legal Sex Male 5:28 PM CDT Gender Identity Not on file Sexual Orientation Not on file documented as of this encounter Miscellaneous Notes * Cerner Conversion Note - Jaime ProviderMD - 12/23/2020 2:13 PM CDT Initial Discharge Planning Entered On: 12/23/2020 14:20 EDT Performed On: 12/23/2020 14:13 EDT by ANGELA NGUYEN RN Initial Assessment I Previously Documented Living Environment : No qualifying data available. Living Situation : Home Patient Lives With : Spouse Is the Patient a Caregiver at Home? : No Emergency Contact #1 : Pooja Alford Emergency Contact #1 Emergency Contact #1 Relationship : spouse Emergency Contact #2 : . Emergency Contact #2 Phone Number : . Emergency Contact #2 Relationship : . Enter Doctors Name : Jonah Anthony Does Patient have PCP Listed? : Yes Legal Guardian : No ANGELA NGUYEN RN - 12/23/2020 14:13 EDT Initial Assessment II Current Home Treatments and Equipment : Bedside commode, Walker Services and Community Resources : Other: na Does the Patient have a Floor to SNF Benefit? : No ANGELA NGUYEN RN - 12/23/2020 14:13 EDT Discharge Needs I Anticipated Discharge Date : 12/23/2020 EDT Anticipated Discharge To, CM : Home with home health Current Home Treatment/Equipment : Current Home Treatment/Equipment No qualifying data available. Post Acute/Home Treatments : Bedside commode, Walker Documentation Status Complete : Yes ANGELA NGUYEN RN - 12/23/2020 14:13 EDT Discharge Needs II Professional Skilled Services : Professional Skilled Services No qualifying data available. Services and Community Resources : Home Health Needs Assistance with Transportation : No Discharge Options Discussed with Patient : Discharge transportation, DME, Home Health Patient Discharge Goal : Home health care ANGELA NGUYEN RN - 12/23/2020 14:13 EDT Narrative Note Narrative Note : 70 y/o male s/p RTK per Dr. Hartman. Met with patient at bedside to discuss discharge needs and to verify demographics and pcp. Patient is set to fast track from the post op area. RRS: low STATUS: patient live with his and is iADLS PLAN: home with HH and patient wants [facility]. Referral sent via [facility]. DME: patient has a frw and bsc at home TRANS: family will transport patient home CM: No further CM needs identified. ANGELA NGUYEN RN - 12/23/2020 14:41 EDT documented in this encounter Plan of Treatment Not on file documented as of this encounter Visit Diagnoses Not on filedocumented in this encounter
--- OUTSIDE RECORDS SUMMARY | 2024-09-06 09:14 | XMS_ITS | Encounter Summary ---
Author Organization [facility] Address [address] [place] [address] Care Team Providers Care Sample Washer Name Role Phone Unavailable Primary Care Provider Unavailabl e Encounter Details Date Type Department Care Team (Late st Contact Info) Description 12/23/2020 Transcribed Document [facility] [place] Family Medicine [facility] [place] [address] ProviderJaime MD [address] [place] [address] Social History Tobacco Use Types [...] ProviderMD - 12/23/2020 8:11 AM CDT [facility] PostOp Summary Primary Physician: KAYLA ZIMMERMAN JR, JR, MD-ORT Finalized Date/Time: 12/23/20 14:04:09 Pt. Name: AYLEEN BLACK III /Sex: 1950 Male Med Rec #: [id number] Physician: KAYLA ZIMMERMAN JR, JR, MD-ORT Financial #: [id number] Pt. Type: O Room/Bed: Admit/Disch: 12/23/20 04:16:00 - Institution: [facility] PostOp Case Times Entry 1 In PACU II 12/23/20 11:13:00 Ready for PACU II 12/23/20 13:49:00 Discharge Discharge from PACU 12/23/20 13:49:00 II Last Modified By: Rosa Montes RN 12/23/20 14:04:05 Finalized By: Rosa Montes, RN Document Signatures Signed By: Rosa Montes RN 12/23/20 14:04 Electronically signed by [facility] Conversion Pulmonary Physical Therapist Cerner at 07/09/2022 10:45 AM CDT documented in this encounter Plan of Treatment Not on file documented as of this encounter Visit Diagnoses Not on filedocumented in this encounter
--- OUTSIDE RECORDS SUMMARY | 2024-09-06 09:14 | XMS_ITS | Encounter Summary ---
Author Organization [facility] Address [address] [place] [id number] Care Team Providers Care Greige Mender Name Role Phone Unavailable Primary Care Provider Unavailabl e Encounter Details Date Type Department Care Team (Late st Contact Info) Description 12/23/2020 Transcribed Document [facility] [place] [address] ProviderJaime MD [address] [place] [address] Social History Tobacco Use Types Packs/Day Years Used Date Smoking Tobacco: Never Assessed Sex and Gender Information Value Date Recorded Sex Assigned at Not on file Legal Sex Male 5:28 PM CDT Gender Identity Not on file Sexual Orientation Not on file documented as of this encounter Miscellaneous Notes * Cerner Conversion Note - Jaime ProviderMD - 12/23/2020 1:22 [place] [address] AYLEEN BLACK III :1950 Visit Time:12/23/2020 What to do next Your Diagnosis CAD (coronary artery disease) COVID-19 Diabetes High cholesterol History of obstructive sleep apnea Hypertension IBS (irritable bowel syndrome) RA (rheumatoid arthritis) Right knee pain Status post total knee replacement, right Unilateral primary osteoarthritis, right knee, Unilateral primary osteoarthritis, right knee, Unilateral primary osteoarthritis, right knee Instructions From Your Care Team Refer to handouts provided to you by physical therapy and occupational therapy Must walk with walker x 2 weeks minimum, then PT will direct you Elevate affected lower extremity on 2-3 pillows while sleeping x 6-[address]. [address] a pillow under operative thigh to keep hip flexed while sleeping May shower on Monday, but keep incision with Glad Press and Seal. Dressing may be removed on the 14th day after surgery. is post op day 1. Monitor for signs of infection. If you have drainage after day 10 notify MD who performed surgery. You will be on blood thinners x 45 days. Do not stop unless told to by MD. Use the polar care (blue ice box) continuously for 48 hours and then several times per day 20 minutes on and 40 minutes off. REMOVE THE ICE 1 HOUR PRIOT O EXERCISING Zero knee (blue foam pillow)??? minimum 30 minutes 3 times per day. More is better! Sleep in knee immobilizer x 10 nights You will receive the following meds at discharge: Acetaminophen 500mg ??? take 2 tablets every 8 hours x 30 days Colace 100mg ??? 1-2 capsules daily for constipation Tramadol 50mg ??? 1-2 tablets every 4-6 hours for pain Oxycodone 5mg ??? 1- tablets every 4-6 hours for pain Aspirin 81mg ??? take 1 tablet 2 times daily x 45 days Mobic 15mg daily gabapentin 300mg at bedtime Keflex 500mg- 1 capsule every 6 hours for 3 days. Zofran 4mg tablet- 1 tablet every 4-6 hours as needed for nausea. If going home with lovenox/Coumadin ??? you will inject lovenox in appropriate areas on the morning after surgery, and the following day. You will take Coumadin in the evenings x 2 weeks. You will have your labs drawn 3 days after surgery, then 6 days after surgery Community Services: [facility] Therapy Home Health Services: [facility] for Home Use: Patient has a frw at home Transportation: Family to transport Discharge Follow Up Instructions: Follow-up with Dr. Hartman as scheduled, Order Comment: Follow-up with PCP as scheduled or PRN Activity: As per Dr. Hartman recommendations, Discharge Activity: Other (use Special Instructions) Diet: Discharge Diet: Resume usual diet as tolerated Follow-Up Appointments Follow Up with KAYLA ZIMMERMAN JR, JR, MD-ORT When 12/29/2020 09:45 AM EDT Where: [address] [facility] [address] [place] [address]- Medications What How Much When Instructions Next Dose cefadroxil (cefadroxil 500 mg oral capsule) 1 Capsule(s) Oral Two Times A Day Duration: 3 Day(s) To help prevent post-op infection docusate (Colace 100 mg oral capsule) See instructions Take 1-2 capsules daily as needed for constipation ondansetron (ondansetron 4 mg oral tablet) See instructions Take 1 tablet every 4-6 hours as needed for nausea oxyCODONE (oxyCODONE 5 mg oral tablet) See instructions Take 1-2 tablets every 4-6 hours as needed for moderate to severe pain. acetaminophen (acetaminophen 500 mg oral tablet) 2 Tablet(s) Oral Three Times A Day Duration: 10 Day(s) not to exceed 4000 mg/ day aspirin (aspirin 81 mg oral delayed release tablet) 1 Tablet(s) Oral Two Times A Day Duration: 45 Day(s) For blood clot prevention; may resume once daily dosing when finished (with Plavix) traMADol (traMADol 50 mg oral tablet) 2 Tablet(s) Oral Every 6 Hours as needed for Pain (Mild 1-3) cholecalciferol (Vitamin D3) 125 Microgram(s) Oral Every Day clopidogrel (Plavix) 75 Milligram(s) Oral Every Day cyclobenzaprine 5 Milligram(s) Oral Every Evening dicyclomine 10 Milligram(s) Oral Every Day diphenhydrAMINE (Benadryl) 25 Milligram(s) Oral At Bedtime losartan 50 Milligram(s) Oral Every Day pioglitazone (Actos) 30 Milligram(s) Oral Every Day polycarbophil (Fiber Lax 625 mg oral tablet) 2 Tablet(s) Oral Every Day potassium gluconate (potassium gluconate 595 mg (99 mg elemental potassium) oral tablet) 1 Tablet(s) Oral Every Day pyridoxine (Vitamin B6) 400 Milligram(s) Oral Every Day simvastatin 20 Milligram(s) Oral Every Day vitamin E 400 International Units Oral Every Day zinc sulfate (Zinc) 50 Milligram(s) Oral Every Day Take your medications faithfully. Do NOT skip medication. Do NOT stop taking medications without the direction of a physician. Carry a list of your medications with you at all times, and take this medication list with you to your first follow up visit. Report any side effects. Avoid herbal remedies unless discussed with your physician. As part of your treatment plan, your physician may have prescribed a limited course of a controlled substance. This medication may be given to help people with moderate or severe pain or for other medical conditions, but there are risks involved with treatment. Common side effects may include nausea, constipation, drowsiness, sweating, itching, dry mouth, and rash. More serious side effects may include cognitive and motor impairment, like problems with thinking, concentrating, alertness, and movement (e.g. slowed reflexes), and driving and operating heavy machinery can be dangerous. It is important for you to talk to your physician if you have these side effects or questions. These controlled substances can produce physical dependence and be habit-forming if taken for an extended period of time, which means that the body has gotten used to them and may experience withdrawal symptoms if they are abruptly stopped. Withdrawal symptoms can include runny nose, sweating, goose bumps, diarrhea, abdominal cramping, rapid heartbeat, difficulty sleeping, and nervousness. Please dispose of unused and medications per pharmacy guidance. Education Materials What to expect after the Procedure: After [...] or 4 frozen water bottles in the [facility]. Continue to use Incentive Spirometer [...] Barley. Bulgur wheat. Millet. Bran muffins. Popcorn. [place] wafer crackers. Vegetables Sweet potatoes. Spinach. Kale. Artichokes. Cabbage. Broccoli. Green peas. Carrots. Squash. Fruits Berries. Pears. Apples. Oranges. Avocados. Prunes and raisins. Dried figs. Meats and Other Protein Sources Stevinson, kidney, amador, and soy beans. Split peas. [...] 1 katy has 11 g of protein. Clovis seeds ??? 1 oz has 5.5 g [...] the floor. Place frequently used items in mjuc-ku-nxvtg places Keep electrical cables out of the [...] ? Using the bathroom. ? Using household cut to length operator or toxic chemicals. ? Touching or taking [...] your foot or ankle. ? Increased pain. General Anesthesia, Adult, Care After This sheet [...] activities are safe for you. ??? Take ermx-dkm-qmystmj and prescription medicines only as told by [...] provider. Document Revised: 03/16/2018 Document Reviewed: 10/27/2017 [employer] Patient Education ?? 2020 Lift. acetaminophen (oral) (a SEET a MIN oh fen) Actamin, Anacin AF, Aurophen, Bromo Harshaw, Children's Tylenol, Mapap, M-Pap, Pharbetol, Silapap Childrens, Tactinal, Tempra Quicklets, Tycolene, Tylenol, Vitapap What is the most important information I should know about acetaminophen? You should not use acetaminophen if you have severe liver disease. Use this medicine exactly as directed on the label, or as prescribed by your doctor. An overdose of acetaminophen can damage your liver or cause . Avoid also using other medicines that contain acetaminophen (sometimes abbreviated as APAP), or you could have a fatal overdose. Call your doctor at once if you have nausea, pain in your upper stomach, itching, loss of appetite, dark urine, anresh-colored stools, or jaundice (yellowing of your skin or eyes). Stop taking this medicine and call your doctor right away if you have skin redness or a rash that spreads and causes blistering and peeling. What is acetaminophen? Acetaminophen is a pain reliever and a fever hydroelectric powerplant supervisor. There are many brands and forms of acetaminophen available. Not all brands are listed on this leaflet. Acetaminophen is used to treat pain or fever caused by many conditions such as headache, muscle aches, arthritis, backache, toothaches, sore throat, colds, and flu. Acetaminophen may also be used for purposes not listed in this medication guide. What should I discuss with my healthcare provider before taking acetaminophen? You should not take acetaminophen if you are allergic to it, or if you have severe liver disease. Do not take acetaminophen without a doctor's advice if you have ever had alcoholic liver disease (cirrhosis) or if you drink more than 3 alcoholic beverages per day. Ask a doctor before using this medicine if you are or . Do not give this medicine to a child younger than 12 years old without the advice of a doctor. Extra-strength acetaminophen is not for use in a child younger than 6 years old. How should I take acetaminophen? Use exactly as directed on the label, or as prescribed by your doctor. Do not take more than your recommended dose. An overdose of acetaminophen can damage your liver or cause . ?? Adults and teenagers who weigh at least 110 pounds (50 kilograms): Do not take more than 1000 milligrams (mg) at one time. Do not take more than 4000 mg in 24 hours. ?? Children younger than 12 years old: Do not take more than 5 doses of acetaminophen in 24 hours. Use only the number of milligrams per dose that is recommended for the child's weight and age. Use exactly as directed on the label. ?? Avoid also using other medicines that contain acetaminophen, or you could have a fatal overdose. If you are treating a child, use a pediatric form of acetaminophen. Use only the special dose-measuring dropper or oral syringe that comes with the specific pediatric form you are using. Carefully follow the dosing directions on the medicine label. Measure liquid medicine carefully. Use the dosing syringe provided, or use a medicine dose-measuring device (not a kitchen spoon). Acetaminophen made for infants is available in two different dose concentrations, and each concentration comes with its own medicine dropper or oral syringe. Using the wrong device may cause you to give your child an overdose of acetaminophen. Never mix and match dosing devices between infant formulations of acetaminophen. You may need to shake the liquid before each use. Follow the directions on the medicine label. The chewable tablet must be chewed thoroughly before you swallow it. The oral powder should be placed directly on the tongue and swallowed. Make sure your hands are dry when handling a disintegrating tablet. Place the tablet on your tongue and allow it to dissolve, without chewing. Do not swallow the tablet whole. Allow it to dissolve in your mouth without chewing. To use the effervescent granules, dissolve one packet of the granules in at least 4 ounces of water. Stir and drink this mixture right away. Add a little more water to the glass, swirl gently and drink right away. Stop taking acetaminophen and call your doctor if: ?? you still have a sore throat after 2 days of use; ?? you still have a fever after 3 days of use; ?? you still have pain after 7 days of use (or 5 days if treating a child); ?? you have a skin rash, ongoing headache, nausea, vomiting, redness or swelling; or ?? if your symptoms get worse, or if you have any new symptoms. This medicine can affect the results of certain lab tests for glucose (sugar) in the urine. Tell any doctor who treats you that you are using acetaminophen. Store at room temperature away from heat and moisture. What happens if I miss a dose? Since acetaminophen is used when needed, you may not be on a dosing schedule. Skip any missed dose if it's almost time for your next dose. Do not use two doses at one time. What happens if I overdose? Seek emergency medical attention or call the Poison Help line at . An overdose of acetaminophen can damage your liver or cause . Early signs of acetaminophen overdose include loss of appetite, nausea, vomiting, sweating, or weakness. Later symptoms may include upper stomach pain, dark urine, and yellowing of your skin or eyes. What should I avoid while taking acetaminophen? Ask a doctor or pharmacist before using any other medicine that may contain acetaminophen (sometimes abbreviated as APAP). Taking too much acetaminophen can lead to a fatal overdose. Avoid drinking alcohol. It may increase your risk of liver damage. What are the possible side effects of acetaminophen? Get emergency medical help if you have signs of an allergic reaction: hives; difficulty breathing; swelling of your face, lips, tongue, or throat. In rare cases, acetaminophen may cause a severe skin reaction that can be fatal. This could occur even if you have taken acetaminophen in the past and had no reaction. Stop taking this medicine and call your doctor right away if you have skin redness or a rash that spreads and causes blistering and peeling. If you have this type of reaction, you should never again take any medicine that contains acetaminophen. Stop taking acetaminophen and call your doctor at once if you have signs of liver problems: loss of appetite, stomach pain (upper right side), tiredness, itching, dark urine, naresh-colored stools, jaundice (yellowing of the skin or eyes). Less serious side effects may be more likely, and you may have none at all. This is not a complete list of side effects and others may occur. Call your doctor for medical advice about side effects. You may report side effects to FDA at 9-631-HIK-4743. What other drugs will affect acetaminophen? Other drugs may affect acetaminophen, including prescription and qmky-kls-shkoqgg medicines, vitamins, and herbal products. Tell your doctor about all your current medicines and any medicine you start or stop using. Where can I get more information? Your pharmacist can provide more information about acetaminophen. Remember, keep this and all other medicines out of the reach of children, never share your medicines with others, and use this medication only for the indication prescribed. Every effort has been made to ensure that the information provided by [employer] is accurate, up-to-date, and complete, but no guarantee is made to that effect. Drug information contained herein may be time sensitive. [employer] information has been compiled for use by healthcare practitioners and consumers in the [place] and therefore [employer] does not warrant that uses outside of the [place] are appropriate, unless specifically indicated otherwise. [employer]'s drug information does not endorse drugs, diagnose patients or recommend therapy. [employer] drug information is an informational resource designed to assist licensed healthcare practitioners in caring for their patients and/or to serve consumers viewing this service as a supplement to, and not a substitute for, the expertise, skill, knowledge and judgment of healthcare practitioners. The absence of a warning for a given drug or drug combination in no way should be construed to indicate that the drug or drug combination is safe, effective or appropriate for any given patient. [facility] does not assume any responsibility for any aspect of healthcare administered with the aid of information [facility] provides. The information contained herein is not intended to cover all possible uses, directions, precautions, warnings, drug interactions, allergic reactions, or adverse effects. If you have questions about the drugs you are taking, check with your doctor, nurse or pharmacist. Copyright 2627-4194 [facility] [employer]. Version: 21.. Revision Date: 11/01/2019. aspirin (oral) ( pir in) Arthritis Pain, Aspi-Cor, Aspir-Low, Nusrat Plus, Durlaza, Ecotrin, Miniprin, Vazalore What is the most important information I should know about aspirin? Aspirin can cause Tonia's syndrome, a serious and sometimes fatal condition in children. What is aspirin? Aspirin is a salicylate (at-GSW-ir-ate) that is used to treat pain, and reduce fever or inflammation. Aspirin is sometimes used to treat or prevent heart attacks, strokes, and chest pain (angina). Aspirin should be used for these conditions only under the supervision of a doctor. Aspirin may also be used for purposes not listed in this medication guide. What should I discuss with my healthcare provider before taking aspirin? Using aspirin in a child or teenager with flu symptoms or chickenpox can cause a serious or fatal condition called Tonai's syndrome. You should not use aspirin if you are allergic to it, or if you have: ?? a recent history of stomach or intestinal bleeding; ?? a bleeding disorder such as hemophilia; or ?? if you have ever had an asthma attack or severe allergic reaction after taking aspirin or an NSAID (non-steroidal anti-inflammatory drug). Tell your doctor if you have ever had: ?? asthma or seasonal allergies; ?? stomach ulcers; ?? liver disease; ?? kidney disease; ?? a bleeding or blood clotting disorder; ?? gout; or ?? heart disease, high blood pressure, or congestive heart failure. Taking aspirin during late may cause bleeding in the mother or the baby during delivery. Tell your doctor if you are or plan to become . You should not breastfeed while using this medicine. How should I take aspirin? Use exactly as directed on the label, or as prescribed by your doctor. Always follow directions on the medicine label about giving aspirin to a child. Take with food if aspirin upsets your stomach. You must chew the chewable tablet before you swallow it. Do not crush, chew, break, or open an enteric-coated or delayed/extended-release pill. Swallow it whole. Tell your doctor if you have a planned surgery. Store at room temperature away from moisture and heat. Do not use aspirin if you smell a strong vinegar odor in the aspirin bottle. The medicine may no longer be effective. What happens if I miss a dose? Aspirin is used when needed. If you are on a dosing schedule, skip any missed dose. Do not use two doses at one time. What happens if I overdose? Seek emergency medical attention or call the Poison Help line at . Overdose may cause stomach pain, vomiting, diarrhea, vision or hearing problems, fast or slow breathing, or confusion. What should I avoid while taking aspirin? Avoid alcohol. Heavy drinking can increase your risk of stomach bleeding. Avoid taking ibuprofen if you take aspirin to prevent stroke or heart attack. Ibuprofen can make aspirin less effective in protecting your heart and blood vessels. Ask your doctor how far apart your doses should be. Ask a doctor or pharmacist before using other medicines for pain, fever, swelling, or cold/flu symptoms. They may contain ingredients similar to aspirin (such as magnesium salicylate, ibuprofen, ketoprofen, or naproxen). What are the possible side effects of aspirin? Get emergency medical help if you have signs of an allergic reaction: hives; difficult breathing; swelling of your face, lips, tongue, or throat. Stop using aspirin and call your doctor at once if you have: ?? ringing in your ears, confusion, hallucinations, rapid breathing, seizure (convulsions); ?? severe nausea, vomiting, or stomach pain; ?? bloody or tarry stools, coughing up blood or vomit that looks like coffee grounds; ?? fever lasting longer than 3 days; or ?? swelling, or pain lasting longer than 10 days. Common side effects may include: ?? upset stomach, heartburn; ?? drowsiness; or ?? mild headache. This is not a complete list of side effects and others may occur. Call your doctor for medical advice about side effects. You may report side effects to FDA at 2-134-XRA-6812. What other drugs will affect aspirin? Ask your doctor before using aspirin if you take an antidepressant. Taking certain antidepressants with aspirin may cause you to bruise or bleed easily. Ask a doctor or pharmacist before using aspirin with any other medications, especially: ?? a blood thinner (warfarin, Coumadin, Jantoven), or other medication used to prevent blood clots; or ?? other salicylates such as Nuprin Backache Caplet, Kaopectate, KneeRelief, Pamprin Cramp Formula, Pepto-Bismol, Tricosal, Trilisate, and others. This list is not complete. Other drugs may affect aspirin, including prescription and roqk-xfa-wmshevx medicines, vitamins, and herbal products. Not all possible drug interactions are listed here. Where can I get more information? Your pharmacist can provide more information about aspirin. Remember, keep this and all other medicines out of the reach of children, never share your medicines with others, and use this medication only for the indication prescribed. Every effort has been made to ensure that the information provided by [employer] is accurate, up-to-date, and complete, but no guarantee is made to that effect. Drug information contained herein may be time sensitive. [employer] information has been compiled for use by healthcare practitioners and consumers in the [place] and therefore [employer] does not warrant that uses outside of the [place] are appropriate, unless specifically indicated otherwise. [employer] drug information does not endorse drugs, diagnose patients or recommend therapy. [employer] drug information is an informational resource designed to assist licensed healthcare practitioners in caring for their patients and/or to serve consumers viewing this service as a supplement to, and not a substitute for, the expertise, skill, knowledge and judgment of healthcare practitioners. The absence of a warning for a given drug or drug combination in no way should be construed to indicate that the drug or drug combination is safe, effective or appropriate for any given patient. [employer] does not assume any responsibility for any aspect of healthcare administered with the aid of information [facility] provides. The information contained herein is not intended to cover all possible uses, directions, precautions, warnings, drug interactions, allergic reactions, or adverse effects. If you have questions about the drugs you are taking, check with your doctor, nurse or pharmacist. Copyright 3204-8374 [employer] Version: 16.03. Revision Date: 09/21/2020. oxycodone (ox i KOE done) Oxaydo, OxyCONTIN, Oxyfast, OxyIR, Roxicodone, Xtampza ER What is the most important information I should know about oxycodone? MISUSE OF OPIOID MEDICINE CAN CAUSE ADDICTION, OVERDOSE, OR . Keep the medication in a place where others cannot get to it. Taking opioid medicine during may cause life-threatening withdrawal symptoms in the . Fatal side effects can occur if you use opioid medicine with alcohol, or with other drugs that cause drowsiness or slow your breathing. What is oxycodone? Oxycodone is an opioid pain medication used to treat moderate to severe pain. The extended-release form of oxycodone is for nuqxfc-vfi-qbqka treatment of pain and should not be used on an as-needed basis for pain. Oxycodone may also be used for purposes not listed in this medication guide. What should I discuss with my healthcare provider before using oxycodone? You should not use oxycodone if you are allergic to it, or if you have: ?? severe asthma or breathing problems; or ?? a blockage in your stomach or intestines. You should not use oxycodone unless you are already using a similar opioid medicine and are tolerant to it. Most brands of oxycodone are not approved for use in people under 18. OxyContin should not be given to a child younger than 11 years old. Tell your doctor if you have ever had: ?? breathing problems, sleep apnea; ?? a head injury, or seizures; ?? drug or alcohol addiction, or mental illness; ?? liver or kidney disease; ?? urination problems; or ?? problems with your gallbladder, pancreas, or thyroid. If you use opioid medicine while you are , your baby could become dependent on the drug. This can cause life-threatening withdrawal symptoms in the baby after it is born. Babies born dependent on opioids may need medical treatment for several weeks. Ask a doctor before using opioid medicine if you are . Tell your doctor if you notice severe drowsiness or slow breathing in the nursing baby. How should I use oxycodone? Follow the directions on your prescription label and read all medication guides. Never use oxycodone in larger amounts, or for longer than prescribed. Tell your doctor if you feel an increased urge to take more of this medicine. Never share opioid medicine with another person, especially someone with a history of drug abuse or addiction. MISUSE CAN CAUSE ADDICTION, OVERDOSE, OR . Keep the medication in a place where others cannot get to it. Selling or giving away opioid medicine is against the law. Stop taking all other oktzvb-wzd-gbrvs opioid pain medicines when you start taking extended-release oxycodone. Take oxycodone with food. Swallow the capsule or tablet whole to avoid exposure to a potentially fatal overdose. Do not crush, chew, break, open, or dissolve. If you cannot swallow a capsule whole, open it and sprinkle the medicine into a spoonful of pudding or applesauce. Swallow the mixture right away without chewing. Do not save it for later use. Never crush or break an oxycodone pill to inhale the powder or mix it into a liquid to inject the drug into your vein. This can cause in . Measure liquid medicine carefully. Use the dosing syringe provided, or use a medicine dose-measuring device (not a kitchen spoon). You should not stop using oxycodone suddenly. Follow your doctor's instructions about tapering your dose. Store at room temperature, away from heat, moisture, and light. Keep track of your medicine. Oxycodone is a drug of abuse and you should be aware if anyone is using your medicine improperly or without a prescription. Do not keep leftover opioid medication. Just one dose can cause in someone using this medicine accidentally or improperly. Ask your pharmacist where to locate a drug take-back disposal program. If there is no take-back program, flush the unused medicine down the toilet. What happens if I miss a dose? Since oxycodone is used for pain, you are not likely to miss a dose. Skip any missed dose if it is almost time for your next dose. Do not use two doses at one time. What happens if I overdose? Seek emergency medical attention or call the Poison Help line at . An opioid overdose can be fatal, especially in a child or other person using the medicine without a prescription. Overdose symptoms may include severe drowsiness, pinpoint pupils, slow breathing, or no breathing. Your doctor may recommend you get naloxone (a medicine to reverse an opioid overdose) and keep it with you at all times. A person caring for you can give the naloxone if you stop breathing or don't wake up. Your caregiver must still get emergency medical help and may need to perform CPR (cardiopulmonary resuscitation) on you while waiting for help to arrive. Anyone can buy naloxone from a pharmacy or local health department. Make sure any person caring for you knows where you keep naloxone and how to use it. What should I avoid while using oxycodone? Do not drink alcohol. Dangerous side effects or could occur. Avoid driving or operating machinery until you know how oxycodone will affect you. Dizziness or severe drowsiness can cause falls or other accidents. Avoid medication errors. Always check the brand and strength of oxycodone you get from the pharmacy. What are the possible side effects of oxycodone? Get emergency medical help if you have signs of an allergic reaction: hives; difficult breathing; swelling of your face, lips, tongue, or throat. Opioid medicine can slow or stop your breathing, and may occur. A person caring for you should give naloxone and/or seek emergency medical attention if you have slow breathing with long pauses, blue colored lips, or if you are hard to wake up. Call your doctor at once if you have: ?? noisy breathing, sighing, shallow breathing, breathing that stops during sleep; ?? a slow heart rate or weak pulse; ?? a light-headed feeling, like you might pass out; ?? confusion, unusual thoughts or behavior; ?? seizure (convulsions); ?? low cortisol levels-- nausea, vomiting, loss of appetite, dizziness, worsening tiredness or weakness; or ?? high levels of serotonin in the body--agitation, hallucinations, fever, sweating, shivering, fast heart rate, muscle stiffness, twitching, loss of coordination, nausea, vomiting, diarrhea. Serious breathing problems may be more likely in older adults and in those who are debilitated or have wasting syndrome or chronic breathing disorders. Common side effects may include: ?? drowsiness, headache, dizziness, tiredness; or ?? constipation, stomach pain, nausea, vomiting. This is not a complete list of side effects and others may occur. Call your doctor for medical advice about side effects. You may report side effects to FDA at 8-683-IVS-7215. What other drugs will affect oxycodone? You may have breathing problems or withdrawal symptoms if you start or stop taking certain other medicines. Tell your doctor if you also use an antibiotic, antifungal medication, heart or blood pressure medication, seizure medication, or medicine to treat HIV or hepatitis C. Opioid medication can interact with many other drugs and cause dangerous side effects or . Be sure your doctor knows if you also use: ?? cold or allergy medicines, bronchodilator asthma/COPD medication, or a diuretic ('water pill'); ?? medicines for motion sickness, irritable bowel syndrome, or overactive bladder; ?? other opioids--opioid pain medicine or prescription cough medicine; ?? a sedative like Valium--diazepam, alprazolam, lorazepam, Xanax, Klonopin, Versed, and others; ?? drugs that make you sleepy or slow your breathing--a sleeping pill, muscle relaxer, medicine to treat mood disorders or mental illness; or ?? drugs that affect serotonin levels in your body--a stimulant, or medicine for depression, Parkinson's disease, migraine headaches, serious infections, or nausea and vomiting. This list is not complete and many other drugs may affect oxycodone. This includes prescription and cvan-mnd-ajahiwh medicines, vitamins, and herbal products. Not all possible drug interactions are listed here. Where can I get more information? Your pharmacist can provide more information about oxycodone. Remember, keep this and all other medicines out of the reach of children, never share your medicines with others, and use this medication only for the indication prescribed. Every effort has been made to ensure that the information provided by [employer] is accurate, up-to-date, and complete, but no guarantee is made to that effect. Drug information contained herein may be time sensitive. [employer] information has been compiled for use by healthcare practitioners and consumers in the [place] and therefore [employer] does not warrant that uses outside of the [place] are appropriate, unless specifically indicated otherwise. [employer] drug information does not endorse drugs, diagnose patients or recommend therapy. [facility] drug information is an informational resource designed to assist licensed healthcare practitioners in caring for their patients and/or to serve consumers viewing this service as a supplement to, and not a substitute for, the expertise, skill, knowledge and judgment of healthcare practitioners. The absence of a warning for a given drug or drug combination in no way should be construed to indicate that the drug or drug combination is safe, effective or appropriate for any given patient. [employer] does not assume any responsibility for any aspect of healthcare administered with the aid of information [employer] provides. The information contained herein is not intended to cover all possible uses, directions, precautions, warnings, drug interactions, allergic reactions, or adverse effects. If you have questions about the drugs you are taking, check with your doctor, nurse or pharmacist. Copyright 3637-0318 [facility] [employer]. Version: 14.02. Revision Date: 04/23/2020. docusate (oral/rectal) (DOK ue sate) Colace, Diocto, Doc-Q-Lace, Docu, Doculase, Docusil, Docusoft S, DocuSol, Dulcolax Stool Softener, Enemeez Mini, Scotty-Tin, Pedia-Lax Stool Softener, Wood Stool Softener, Promolaxin, Silace, Surfak Stool Softener, Adele-Q-Lax What is the most important information I should know about docusate? You should not use docusate if you also use mineral oil, unless your doctor tells you to. What is docusate? Docusate is a stool softener that makes bowel movements softer and easier to pass. Docusate is used to relieve occasional constipation (irregularity). There are many brands and forms of docusate available. Not all brands are listed on this leaflet. Docusate may also be used for purposes not listed in this medication guide. What should I discuss with my healthcare provider before using docusate? You should not use docusate if you are allergic to it. Ask a doctor or pharmacist if this medicine is safe to use if you have: ?? stomach pain; ?? nausea; ?? vomiting; or ?? a sudden change in bowel habits that lasts over 2 weeks. Ask a doctor before using this medicine if you are or . Do not give this medicine to a child without medical advice. How should I use docusate? Use exactly as directed on the label, or as prescribed by your doctor. Drink plenty of liquids while you are using docusate. Measure liquid medicine carefully. Use the dosing syringe provided, or use a medicine dose-measuring device (not a kitchen spoon). Do not take the rectal enema by mouth. Rectal medicine is for use only in the rectum. Wash your hands before and after using the enema. To use the enema, lie on your left side with your left leg extended and your right leg slightly bent. Remove the cap from the applicator tip and gently insert the tip into your rectum. Slowly squeeze the bottle to empty the contents into the rectum. After using the enema, lie down on your left side for at least 30 minutes to allow the liquid to distribute throughout your intestines. Avoid using the bathroom, and hold in the enema at least 1 hour, or all night if possible. Read and carefully follow any Instructions for Use provided with your medicine. Ask your doctor or pharmacist if you do not understand these instructions. Docusate generally produces bowel movement in 12 to 72 hours. Call your doctor if your symptoms do not improve after 72 hours. You should not use docusate for longer than 1 week, unless your doctor tells you to. Store at room temperature away from moisture and heat. Do not freeze liquid medicine. What happens if I miss a dose? Since docusate is used when needed, you may not be on a dosing schedule. Skip any missed dose if it's almost time for your next dose. Do not use two doses at one time. What happens if I overdose? Seek emergency medical attention or call the Poison Help line at . What should I avoid while using docusate? Avoid using mineral oil, unless told to do so by a doctor. What are the possible side effects of docusate? Get emergency medical help if you have signs of an allergic reaction: hives; difficult breathing; swelling of your face, lips, tongue, or throat. Stop using docusate and call your doctor at once if you have: ?? rectal bleeding or irritation; or ?? no bowel movement after 72 hours. Less serious side effects may be more likely, and you may have none at all. This is not a complete list of side effects and others may occur. Call your doctor for medical advice about side effects. You may report side effects to FDA at 0-270-NIB-3159. What other drugs will affect docusate? Other drugs may affect docusate, including prescription and nlkb-mhc-uoacvmp medicines, vitamins, and herbal products. Tell your doctor about all your current medicines and any medicine you start or stop using. Where can I get more information? Your pharmacist can provide more information about docusate. Remember, keep this and all other medicines out of the reach of children, never share your medicines with others, and use this medication only for the indication prescribed. Every effort has been made to ensure that the information provided by [employer] is accurate, up-to-date, and complete, but no guarantee is made to that effect. Drug information contained herein may be time sensitive. [employer] information has been compiled for use by healthcare practitioners and consumers in the [place] and therefore [employer] does not warrant that uses outside of the [place] are appropriate, unless specifically indicated otherwise. [employer] drug information does not endorse drugs, diagnose patients or recommend therapy. [employer] drug information is an informational resource designed to assist licensed healthcare practitioners in caring for their patients and/or to serve consumers viewing this service as a supplement to, and not a substitute for, the expertise, skill, knowledge and judgment of healthcare practitioners. The absence of a warning for a given drug or drug combination in no way should be construed to indicate that the drug or drug combination is safe, effective or appropriate for any given patient. [employer] does not assume any responsibility for any aspect of healthcare administered with the aid of information [employer] provides. The information contained herein is not intended to cover all possible uses, directions, precautions, warnings, drug interactions, allergic reactions, or adverse effects. If you have questions about the drugs you are taking, check with your doctor, nurse or pharmacist. Copyright 8995-9958 [employer] Version: 4.01. Revision Date: 10/01/2018. cephalexin (sef a HECTOR in) Keflex What is the most important information I should know about cephalexin? You should not use this medicine if you are allergic to cephalexin or to similar antibiotics, such as Ceftin, Cefzil, Omnicef, and others. Tell your doctor if you are allergic to any drugs, especially penicillins or other antibiotics. What is cephalexin? Cephalexin is a cephalosporin (SEF a low spor in) antibiotic that is used to treat bacterial infections of the lungs, ear, skin, bones, bladder, and kidneys. Cephalexin is used to treat infections in adults and children who are at least 1 year old. Cephalexin may also be used for purposes not listed in this medication guide. What should I discuss with my healthcare provider before taking cephalexin? You should not use this medicine if you are allergic to cephalexin or any other cephalosporin antibiotic (cefdinir, cefadroxil, cefoxitin, cefprozil, ceftriaxone, cefuroxime, Omnicef, and others). Tell your doctor if you have ever had: ?? an allergy to any drug (especially penicillin); ?? liver or kidney disease; or ?? intestinal problems, such as colitis. The liquid form of cephalexin may contain sugar. This may affect you if you have diabetes. Tell your doctor if you are or breast-feeding. How should I take cephalexin? Follow all directions on your prescription label and read all medication guides or instruction sheets. Use the medicine exactly as directed. Do not use cephalexin to treat any condition that has not been checked by your doctor. Measure liquid medicine carefully. Use the dosing syringe provided, or use a medicine dose-measuring device (not a kitchen spoon). Use this medicine for the full prescribed length of time, even if your symptoms quickly improve. Skipping doses can increase your risk of infection that is resistant to medication. Cephalexin will not treat a viral infection such as the flu or a common cold. Do not share cephalexin with another person, even if they have the same symptoms you have. This medicine can affect the results of certain medical tests. Tell any doctor who treats you that you are using cephalexin. Store the tablets and capsules at room temperature away from moisture, heat, and light. Store the liquid medicine in the refrigerator. Throw away any unused liquid after 14 days. What happens if I miss a dose? Take the medicine as soon as you can, but skip the missed dose if it is almost time for your next dose. Do not take two doses at one time. What happens if I overdose? Seek emergency medical attention or call the Poison Help line at . Overdose symptoms may include nausea, vomiting, stomach pain, diarrhea, and blood in your urine. What should I avoid while taking cephalexin? Antibiotic medicines can cause diarrhea, which may be a sign of a new infection. If you have diarrhea that is watery or bloody, call your doctor before using anti-diarrhea medicine. What are the possible side effects of cephalexin? Get emergency medical help if you have signs of an allergic reaction (hives, difficult breathing, swelling in your face or throat) or a severe skin reaction (fever, sore throat, burning eyes, skin pain, red or purple skin rash with blistering and peeling). Call your doctor at once if you have: ?? severe stomach pain, diarrhea that is watery or bloody (even if it occurs months after your last dose); ?? unusual tiredness, feeling light-headed or short of breath; ?? easy bruising, unusual bleeding, purple or red spots under your skin; ?? a seizure; ?? pale skin, cold hands and feet; ?? yellowed skin, dark colored urine; ?? fever, weakness; or ?? pain in your side or lower back, painful urination. Common side effects may include: ?? diarrhea; ?? nausea, vomiting; ?? indigestion, stomach pain; or ?? vaginal itching or discharge. This is not a complete list of side effects and others may occur. Call your doctor for medical advice about side effects. You may report side effects to FDA at 2-655-TID-4122. What other drugs will affect cephalexin? Tell your doctor about all your other medicines, especially: ?? metformin; or ?? probenecid. This list is not complete. Other drugs may affect cephalexin, including prescription and dmvk-chn-uydrlld medicines, vitamins, and herbal products. Not all possible drug interactions are listed here. Where can I get more information? Your pharmacist can provide more information about cephalexin. Remember, keep this and all other medicines out of the reach of children, never share your medicines with others, and use this medication only for the indication prescribed. Every effort has been made to ensure that the information provided by [employer] is accurate, up-to-date, and complete, but no guarantee is made to that effect. Drug information contained herein may be time sensitive. [employer] information has been compiled for use by healthcare practitioners and consumers in the [place] and therefore [employer] does not warrant that uses outside of the [place] are appropriate, unless specifically indicated otherwise. [employer] drug information does not endorse drugs, diagnose patients or recommend therapy. [employer] drug information is an informational resource designed to assist licensed healthcare practitioners in caring for their patients and/or to serve consumers viewing this service as a supplement to, and not a substitute for, the expertise, skill, knowledge and judgment of healthcare practitioners. The absence of a warning for a given drug or drug combination in no way should be construed to indicate that the drug or drug combination is safe, effective or appropriate for any given patient. [employer] does not assume any responsibility for any aspect of healthcare administered with the aid of information [employer] provides. The information contained herein is not intended to cover all possible uses, directions, precautions, warnings, drug interactions, allergic reactions, or adverse effects. If you have questions about the drugs you are taking, check with your doctor, nurse or pharmacist. Copyright [id number] [employer] Version: 10.03. Revision Date: 03/30/2020. tramadol (TRAM a dol) Víctor, Maida, Ultram, Ultram ER What is the most important information I should know about tramadol? MISUSE OF THIS MEDICINE CAN CAUSE ADDICTION, OVERDOSE, OR . Keep this medicine where others cannot get to it. Tramadol should not be given to a child younger than 12 years old, or anyone younger than 18 years old who recently had surgery to remove the tonsils or adenoids. Ultram ER should not be given to anyone younger than 18 years old. Taking tramadol during may cause life-threatening withdrawal symptoms in the . Fatal side effects may occur if you use also use alcohol or other drugs that cause drowsiness or slow breathing. What is tramadol? documented in this encounter Plan of Treatment Not on file documented as of this encounter Visit Diagnoses Not on filedocumented in this encounter
--- OUTSIDE RECORDS SUMMARY | 2024-09-06 09:14 | XMS_ITS | Clinical Summary ---
Author Organization Healthcare Address [address] [place] [address] Care Team Providers Care Steam Trap Worker Name Role Phone Markus Huang DIESEL FITTER MECHANIC Primary Care Provider [phone] Allergies Active Allergy Reactions Criticality Noted Date Comments Penicillins Itching,Unknown - Pa cherie states they do not know rxn details Medium 08/08/2017 Medications Calcium Polycarbophil (FIBERCON PO) 8 Active Acetaminophen (TYLENOL 8 HOUR PO) 8 Active albuterol (Ventolin HFA) 108 (90 Base) MCG/ACT inhaler INHALE 1 TO 2 PUFFS EVERY 4 TO 6 HOURS NEEDED. 8 Active ascorbic acid (Vitamin C) 500 MG ER capsule 8 Active cholecalciferol (D3-5) 5,000 Units tablet 9 Active clopidogrel (Plavix) 75 MG tablet 8 Active cyclobenzaprine (Flexeril) 5 MG tablet 8 Active losartan (Cozaar) 50 MG tablet 8 Active mometasone-formote rol (Dulera) 100-5 MCG/ACT inhaler INHALE 2 PUFFS TWICE DAILY. 9 Active pioglitazone (Actos) 30 MG tablet TAKE 1 TABLET ONCE DAILY. 0 Active Chelated Potassium 99 MG tablet TAKE 1 TABLET DAILY. 9 Active pyridoxine (B-6) 250 MG tablet 9 Active simvastatin (Zocor) 20 MG tablet 8 Active traMADol (Ultram) 50 MG tablet 2 (two) times a day. 8 Active alpha tocopherol (Vitamin E) 400 units capsule 9 Active metFORMIN (Glucophage) 500 MG tablet Take 1 tablet (500 mg) by mouth 2 (two) times a day with meals. Active zinc gluconate 50 MG tablet Take 1 tablet (50 mg) by mouth 1 (one) time each day. Active diphenhydrAMINE HCl (BENADRYL ALLERGY PO) Take by mouth every night. Active potassium chloride ER (Micro-K) 10 MEQ ER capsule Take by mouth. Active cyanocobalamin 100 MCG tablet Take 1 tablet (100 mcg) by mouth 1 (one) time each day. Active Active Problems Problem Noted Date Diagnosed Date CKD (chronic kidney disease) stage 1, GFR 90 ml/min or greater 12/09/2019 Diabetes mellitus, type 2 11/05/2018 Essential hypertension 11/05/2018 Microalbuminuria 10/08/2018 Immunizations Immunization Administration Dates Next Due Influenza, high-dose, quadrivalent 02/10,01/09/2020,01/31/2019,01/11 Influenza, injectable, quadrivalent 01/31/2019,1 Influenza, injectable, quadr ivalent, preservative free 01/02/2017,12/29/2015 Pneumococcal 20-gloria Conj Vaccine 02/10/2022 Pneumococcal Conjugate PCV 13 01/11/2018 Pneumococcal Polysaccharide PPV23 01/31/2019,06/2015 Family History Medical History Relation Name Comments Cardiac disorder Father Colon cancer Father Dementia Father Diabetes Father Hypertension Father Cardiac disorder Mother Colon cancer Mother Dementia Mother Diabetes Mother Hypertension Mother Kidney disease Mother Relation Name Status Comments Father Mother Social History Tobacco Use Types Packs/Day Years Used Date Smoking Tobacco: Never Passive Smoke Exposure: Never Smokeless Tobacco: Never Tobacco Cessation:Counseling Given: Not Answered Sex and Gender Information Value Date Recorded Sex Assigned at Not on file Legal Sex Male 6:39 PM EDT Gender Identity Not on file Sexual Orientation Not on file Last Filed Vital Signs Vital Sign Reading Time Taken Comments Blood Pressure 122/89 10/10/2022 10:11 AM EDT Pulse 70 10/10/2022 10:11 AM EDT Temperature 36.6 C (97.9 F) 12/18/2018 2:56 PM EDT Respiratory Rate 16 12/18/2018 2:56 PM EDT Oxygen Saturation - - Inhaled Oxygen Concentration - - Weight 95.3 kg (210 lb) 06/14/2021 1:07 PM EDT Height 175.3 cm (5' 9 ) 06/14/2021 1:07 PM EDT Body Mass Index 31.01 06/14/2021 1:07 PM EDT Plan of Treatment Health Maintenance Due Date Last Done Comments [facility]-Depression Screening 1952 [facility]-Diabetes: Hemoglobin A1C 1950 [facility]-Medicare Annual Wellness (AWV) 1950 [facility]-Infant/Child/Adol SDOH Screenings 1950 [id number] Vaccine (#1) 1957 Diabetes: Dental Exam 1962 [facility]- SDOH Screenings 1970 [facility]-Adult SDOH Screenings 1970 [facility]-DTaP,Tdap,and Td Vaccines (1 - Tdap) 07/08/1971 CT Colonography 1997 Colonoscopy 1997 FIT-DNA 1997 FIT 1997 FOBT 1997 Sigmoidoscopy 1997 [facility]-Colorectal Cancer Screening 1997 [facility]-Zoster Vaccines (1 of 2) 2002 [facility]-RSV Vaccine: 60+ Years or (1 - Risk 60-74 years 1-dose series) 2012 [facility]-Influenza Vaccine (Season Ended) 2024 02/10/2022, 01/09/2020, 01/31/2019, Additional history exists [facility]-Hepatitis C Screening Completed 02/13/2019 [facility]-Pneumococcal Vaccine: 50+ Years Completed 02/10/2022, 01/31/2019, 01/11/2018, Additional history exists HPV Vaccines Aged Out No longer eligi ble based on patient's age to complete this topic [facility]-HIB Vaccines Aged Out No longer e ligible based on patient's age to complete this topic [facility]-Hepatitis A Vaccines Aged Out No longer eligible based on patient's age to complete this topic [facility]-IPV Vaccines Aged Out No longer e ligible based on patient's age to complete this topic [facility]-Rotavirus Vaccines Aged Out No lo nger eligible based on patient's age to complete this topic Procedures Procedure Name Priority Date/Time Associated Diagnosis Comments HEPATITIS C ANTIBODY - ED W/REFLEX TO HCV QUANT PCR Routine 02/13/2019 6:35 PM EST from Last 3 Months or Most Recently Relevant to Health Maintenance Results * [facility] Hepatitis C Antibody (02/13/2019 6:35 PM EST) [facility] Hepatitis C Ab NEGATIVE Reference Range: Negative SUNQUEST 02/13/2019 6:35 PM EST 02/13/2019 7:06 PM EST us Major Diaz MD LAB BLOOD ORDERABLES Final Re sult SUNQUEST from Last 3 Months or Most Recently Relevant to Health Maintenance Insurance [facility] MEDICARE Care Teams Steam Trap Worker Relationship Specialty Start Date End Date Markus Huang APRN [address] [place] [address] [place] [address] PCP - General 10/10/22
--- OUTSIDE RECORDS SUMMARY | 2024-09-06 09:14 | XMS_ITS | Encounter Summary ---
Author Organization [facility] Address [address] [place] [address] Care Team Providers Care Plate Furnace Operator Name Role Phone Unavailable Primary Care Provider Unavailabl e Encounter Details Date Type Department Care Team (Late st Contact Info) Description 12/23/2020 Transcribed Document [facility] [place] [facility] [place] [place] [address] ProviderJaime MD [address] [place] [address] Social History Tobacco Use Types Packs/Day Years Used Date Smoking Tobacco: Never Assessed Sex and Gender Information Value Date Recorded Sex Assigned at Not on file Legal Sex Male 5:28 PM CDT Gender Identity Not on file Sexual Orientation Not on file documented as of this encounter Miscellaneous Notes * [employer]ner Conversion Note - Jaime ProviderMD - 12/23/2020 7:03 AM CDT Time Out Documentation Entered On: 12/23/2020 7:03 EDT Performed On: 12/23/2020 7:03 EDT by Georgie Boyce RN Time Out Documentation Procedure to be Performed : right adductor canal block with onQ placement All Activity Suspended : Yes Team Verbally Confirms Information : Correct patient identity, Correct side and site are marked, Consent form is present and accurate, Agreement on the procedure to be done, Correct patient position, Relevant images/results properly labeled/appropriately displayed, Confirm antibiotics have been administered, Confirm the skin prep has dried, Confirm prosthesis/implant/device is present, Performed in location of procedure after prepped/draped, Performed before each procedure if multiple procedures, Reconcile problems if responses among team members differ Time Out Pause Time : 12/23/2020 7:33 EDT Georgie Boyce RN - 12/23/2020 7:23 EDT Electronically signed by Adolph Crowder Conversion [employer] Developer [employer] at 07/09/2022 10:51 AM CDT documented in this encounter Plan of Treatment Not on file documented as of this encounter Visit Diagnoses Not on filedocumented in this encounter
--- OUTSIDE RECORDS SUMMARY | 2024-09-06 09:14 | XMS_ITS | Encounter Summary ---
Author Organization [facility] Address [address] [place] [address] Care Team Providers Care Shift Supervisor Name Role Phone Unavailable Primary Care Provider Unavailabl e Encounter Details Date Type Department Care Team (Late st Contact Info) Description 12/23/2020 Transcribed Document [facility] [place] [facility] [place] [address] ProviderJaime MD [address], [place] [id number] Social History Tobacco Use Types Packs/Day Years Used Date Smoking Tobacco: Never Assessed Sex and Gender Information Value Date Recorded Sex Assigned at Not on file Legal Sex Male 5:28 PM CDT Gender Identity Not on file Sexual Orientation Not on file documented as of this encounter Miscellaneous Notes * [employer]ner Conversion Note - Jaime ProviderMD - 12/23/2020 7:03 AM CDT Peripheral Nerve Block Entered On: 12/23/2020 7:03 EDT Performed On: 12/23/2020 7:03 EDT by Georgie Boyce RN Peripheral Nerve Block Peripheral Nerve Block Start Date/Time : 12/23/2020 7:39 EDT Site Marked and Visible : Yes Site Preparation : Chlorhexidine (Hibiclens), 30 second scrub plus 30 second dry time Peripheral Nerve Block : Adductor Canal, Other: with on Q placement Laterality : Right Peripheral Nerve Block Performed by : ELICIA STEIN MD Medication Delivery Method : Continuous Peripheral Nerve Block Assisted by : NABEEL SENA RN Peripheral Nerve Block Assisted by 2 : Georgie Boyce RN Ultra sound used during insertion : Yes Catheter Dressing : Occlusive Nerve Block Activity, Patient Tolerance : Good Peripheral Nerve Block Comment : secured with skin glue and tegaderm Peripheral Nerve Block End Date/Time : 12/23/2020 7:41 EDT Time Out Pause Time : 12/23/2020 7:33 EDT Georgie Boyce RN - 12/23/2020 7:33 EDT documented in this encounter Plan of Treatment Not on file documented as of this encounter Visit Diagnoses Not on filedocumented in this encounter
--- OUTSIDE RECORDS SUMMARY | 2024-09-06 09:14 | XMS_ITS | Encounter Summary ---
Author Organization [facility] Address [address] [place] [address] Care Team Providers Care Home Health Travel Ot Name Role Phone Unavailable Primary Care Provider Unavailabl e Encounter Details Date Type Department Care Team (Late st Contact Info) Description 12/23/2020 Transcribed Document [facility] [place] [address] [place] [address] ProviderJaime MD [address] [place], [place] [address] Social History Tobacco Use Types Packs/Day Years Used Date Smoking Tobacco: Never Assessed Sex and Gender Information Value Date Recorded Sex Assigned at Not on file Legal Sex Male 5:28 PM CDT Gender Identity Not on file Sexual Orientation Not on file documented as of this encounter Miscellaneous Notes * Cerner Conversion Note - Historical ProviderMD - 12/23/2020 12:43 PM CDT PRANAV Entered On: 12/23/2020 12:44 EDT Performed On: 12/23/2020 12:43 EDT by ADI DAUGHERTY MD-INT PRANAV Indication of use for OOCS : Acute Illness OOCS Misuse Suspected : Other Was PRANAV queried : Other Patient Advised to seek OOCS Treatment : Other Treatment to Include Limited Supply of OOCS : Other PRANAV Result : Other PRANAV Other Notes : As per Dr. Hartman office records Patient cancelled on OOCS : Other PRANAV : . ADI DAUGHERTY MD-INT - 12/23/2020 12:43 EDT Electronically signed by Lakesha [facility] Conversion Chief Science Officer [employer] at 07/09/2022 10:37 AM CDT documented in this encounter Plan of Treatment Not on file documented as of this encounter Visit Diagnoses Not on filedocumented in this encounter
--- OUTSIDE RECORDS SUMMARY | 2024-09-06 09:14 | XMS_ITS | Encounter Summary ---
Author Organization [facility] Address [address] [place] [address] Care Team Providers Care Research Program Manager Name Role Phone Unavailable Primary Care Provider Unavailabl e Encounter Details Date Type Department Care Team (Late st Contact Info) Description 12/23/2020 Transcribed Document [facility] [place] [facility] [place] [address] ProviderJaime MD [address] [place], [place] [address] Social History Tobacco Use Types Packs/Day Years Used Date Smoking Tobacco: Never Assessed Sex and Gender Information Value Date Recorded Sex Assigned at Not on file Legal Sex Male 5:28 PM CDT Gender Identity Not on file Sexual Orientation Not on file documented as of this encounter Miscellaneous Notes * Cerner Conversion Note - Historical ProviderMD - 12/23/2020 3:54 PM CDT Event Note Entered On: 12/23/2020 16:00 EDT Performed On: 12/23/2020 15:54 EDT by Rosa Montes RN Event Note Event Date/Time : 12/23/2020 14:50 EDT Description of Event : Patient evaluated by physical therapy, was able to eat a meal without any complaints of nausea, pain was well managed, and recevied meds to bed. Patient was seen by case management, then Dr Aguilar and cleared for discharge. Rosa Montes RN - 12/23/2020 15:54 EDT documented in this encounter Plan of Treatment Not on file documented as of this encounter Visit Diagnoses Not on filedocumented in this encounter
--- OUTSIDE RECORDS SUMMARY | 2024-09-06 09:14 | XMS_ITS | Encounter Summary ---
Author Organization [facility] Address [address] [place] [address] Care Team Providers Care Crisis Intervention Specialist Name Role Phone Unavailable Primary Care Provider Unavailabl e Encounter Details Date Type Department Care Team (Late st Contact Info) Description 12/24/2020 Transcribed Document [facility] [place] [address] ProviderJaime MD [facility] [place], [place] [id number] Social History Tobacco Use Types Packs/Day Years Used Date Smoking Tobacco: Never Assessed Sex and Gender Information Value Date Recorded Sex Assigned at Not on file Legal Sex Male 5:28 PM CDT Gender Identity Not on file Sexual Orientation Not on file documented as of this encounter Miscellaneous Notes * [employer]ner Conversion Note - Jaime ProviderMD - 12/24/2020 12:49 PM CDT DATE OF PROCEDURE: 12/23/2020 SURGEON: Danish Hartman Jr, MD PREOPERATIVE DIAGNOSIS: Osteoarthritis, right knee. POSTOPERATIVE DIAGNOSIS: Osteoarthritis, right knee. PROCEDURE PERFORMED: Total knee replacement, right. ANESTHESIA: General plus regional plus local. COMPLICATIONS: None. BLOOD LOSS: Minimal. COMPONENTS USED: ConforMIS patient-specific femur and tibia, 35 patella, antibiotic cement used, medial 6, A lateral tibial poly. TOURNIQUET TIME: 45 minutes. DESCRIPTION OF PROCEDURE: The patient was taken to the operating room, placed in supine position under adequate general anesthesia after regional block, sterile prep and drape, time-out observed, IV antibiotics given and elevation of tourniquet to 300. Anterior approach was made 6 inches in length and mid vastus arthrotomy and subperiosteal dissection back to the posteromedial corner of the tibia. ACL removed. PCL retained. Medial line meniscus removed and then blunt retractors used to protect the collateral ligaments and posterior neurovascular structures as we used the patient-specific guides to cut the femur and tibia. We did require a +2 femoral cut after incomplete extension following trialing, and after this was completed, full extension and flexion was achieved with good stability throughout the arc of motion. 9 mm patella resection with 32, 3-peg jig placed superomedial on the cut surface and good tracking of the patella was noted with trialing. Completion of the tibial keel prep with the standard punch and irrigation of the bony surfaces, drying carefully. We then cemented the final components in place. Excess cement was carefully removed as the knee was placed in extension for curing of the cement. We then removed excess cement, released the tourniquet and controlled all bleeding points, irrigation, layered closure, sterile dressing, ice pack, and transferred the patient to the recovery room in good condition. Status post right total knee replacement, final condition improved. /[id number] MD RAO Gibbs Jr/DIANNA / RAO / MODL /[id number] documented in this encounter Plan of Treatment Not on file documented as of this encounter Visit Diagnoses Not on filedocumented in this encounter
--- OUTSIDE RECORDS SUMMARY | 2024-09-06 09:14 | XMS_ITS | Encounter Summary ---
Author Organization [facility] Address [address] [place] [id number] Care Team Providers Care First Calender Worker Name Role Phone Unavailable Primary Care Provider Unavailabl e Encounter Details Date Type Department Care Team (Late st Contact Info) Description 12/23/2020 Transcribed Document [facility] Family Medicine [place] [address] ProviderJaime MD [address] [place] [address] Social History Tobacco Use Types [...] 12/23/2020 8:11 AM CDT [facility] Main OR IntraOp Summary Primary Physician: KAYLA ZIMMERMAN JR, JR, MD-ORT Finalized Date/Time: 12/23/20 09:59:37 Pt. Name: BLACK AYLEEN ESPARZA /Sex: 1950 Male Med Rec #: [id number] Physician: KAYLA ZIMMERMAN JR, JR, MD-ORT Financial #: [id number] Pt. Type: O Room/Bed: Admit/Disch: 12/23/20 04:16:00 - Institution: [facility] IntraOp Case Attendance Entry 1 Entry 2 Entry 3 Case Attendee KAYLA ZIMMERMAN JR, JR, TARA MERA APRN,HAYDER KOROMA, RN -ORT Role Performed Surgeon/Proceduralist, ESCORT BLIND/Nurse Pharmaceutical Engineer Shoe Shanker, First First Time In 12/23/20 07:51:00 12/23/20 07:51:00 12/23/20 07:51:00 Time Out 12/23/20 09:55:00 12/23/20 09:55:00 12/23/20 09:55:00 Procedure Knee Total Joint Knee Total Joint Knee Total Joint Replacement Replacement Replacement Other Attendee Superficial Wound Closed By: Last Modified By: HAYDER EASON RN LONGSWORTH, GARY, HAYDER MASON RN 12/23/20 09:55:23 12/23/20 09:55:23 12/23/20 09:55:23 Entry 4 Entry 5 Entry 6 Case Attendee Stephan Boyce, LEATHER SEASONER/PRACTICE COORDINATOR GET ARIAS ST Peel, Polly, Scub Tech Role Performed Mule Rider, First Scrub, First Scrub, Second Time In 12/23/20 07:51:00 12/23/20 07:51:00 12/23/20 07:51:00 Time Out 12/23/20 09:55:00 12/23/20 09:55:00 12/23/20 09:55:00 Procedure Knee Total Joint Knee Total Joint Knee Total Joint Replacement Replacement Replacement Other Attendee Superficial Wound Closed By: Last Modified By: HAYDER EASON RN LONGSWORTH, GARY, RN LONGSWORTH, GARY, LUCIE 12/23/20 09:55:23 12/23/20 09:55:23 12/23/20 09:55:23 Entry 7 Entry 8 Case Attendee OTHER, ATTENDEE #1 NGOZI PETTY, ESCORT BLIND Role Performed Vendor ESCORT BLIND/Nurse Pharmaceutical Engineer Time In 12/23/20 07:51:00 12/23/20 08:29:00 Time Out 12/23/20 09:55:00 12/23/20 08:41:00 Procedure Knee Total Joint Knee Total Joint Replacement Replacement Other Attendee [place] ESCORT BLIND BREAK Superficial Wound Closed By: Thom Modified By: HAYDER EASON RN LONGSWORTH, GARY, RN 12/23/20 07:19:17 12/23/20 08:29:30 [facility] IntraOp Case Attendance Audit 12/23/20 09:55:23 Energy Advisor: YVETTE Modifier: LONGGA 1 <+> Time Out 1 <*> Procedure Knee Total Joint Replacement 2 <+> Time Out 2 <*> Procedure Knee Total Joint Replacement 3 <+> Time Out 3 <*> Procedure Knee Total Joint Replacement 4 <+> Time Out 4 <*> Procedure Knee Total Joint Replacement 5 <+> Time Out 5 <*> Procedure Knee Total Joint Replacement 6 <+> Time Out 6 <*> Procedure Knee Total Joint Replacement 7 <+> Time Out 7 <*> Procedure Knee Total Joint Replacement 8 <*> Procedure Knee Total Joint Replacement 12/23/20 08:48:55 Energy Advisor: LONGGA Modifier: LONGGA 8 <+> Time Out 8 <*> Procedure Knee Total Joint Replacement 12/23/20 08:29:30 Energy Advisor: LONGGA Modifier: LONGGA <+> 8 Case Attendee <+> 8 Role Performed <+> 8 Time In <+> 8 Procedure <+> 8 Other Attendee 12/23/20 08:25:18 Energy Advisor: LONGGA Modifier: LONGGA 1 <+> Time In 1 <*> Procedure Knee Total Joint Replacement 2 <+> Time In 2 <*> Procedure Knee Total Joint Replacement 3 <+> Time In 3 <*> Procedure Knee Total Joint Replacement 4 <+> Time In 4 <*> Procedure Knee Total Joint Replacement 5 <+> Time In 5 <*> Procedure Knee Total Joint Replacement 6 <+> Time In 6 <*> Procedure Knee Total Joint Replacement 7 <+> Time In 7 <*> Procedure Knee Total Joint Replacement 12/23/20 07:25:50 Energy Advisor: LONGGA Modifier: LONGGA <+> 1 Procedure 2 <*> Procedure Knee Total Joint Replacement 3 <*> Procedure Knee Total Joint Replacement 4 <*> Procedure Knee Total Joint Replacement 5 <*> Procedure Knee Total Joint Replacement 6 <*> Procedure Knee Total Joint Replacement 7 <*> Procedure Knee Total Joint Replacement [facility] IntraOp Case Times Entry 1 Patient In Room Time 12/23/20 07:51:00 Out Room Time 12/23/20 09:55:00 Anesthesia Start Time 12/23/20 07:51:00 Stop Time 12/23/20 09:55:00 Anesthesia Ready 12/23/20 07:51:00 Surgery / Procedure Times Start Time 12/23/20 08:11:00 Stop Time 12/23/20 09:53:00 Last Modified By: HAYDER EASON RN 12/23/20 08:20:43 [facility] IntraOp Case Times Audit 12/23/20 09:55:21 Energy Advisor: LONGGA Modifier: LONGGA <+> 1 Out Room Time <+> 1 Stop Time <+> 1 Stop Time 12/23/20 08:21:13 Energy Advisor: LONGGA Modifier: LONGGA <+> 1 Start Time [facility] IntraOp Cautery Entry 1 ESU Identification Cautery Type Monopolar ESU ID Number [id number] ID Type Hospital Number Cautery Settings Cut Setting 70 Coag Setting 70 ESU Grounding Pad Ground Pad Type Adult Grounding Pad Site Right Lower Abdomen Grounding Pad HAYDER EASON RN Applied By Grounding Pad Site Intact Skin Condition Before Cautery Grounding Pad Site Unchanged Skin Condition After Cautery Last Modified By: HAYDER EASON RN 12/23/20 08:26:49 [facility] IntraOp Communication Entry 1 Communication To Family/Significant other Comment PROCEDURE STARTING Communication By HAYDER EASON RN Date and Time 12/23/20 08:20:00 Last Modified By: HAYDER EASON RN 12/23/20 08:23:56 S[facility] IntraOp Counts Verification Entry 1 Entry 2 Procedure Knee Total Joint Knee Total Joint Replacement Replacement Count Info Count Type Sponge, Sharps Sponge, Sharps Counts Verification Baseline/pre-procedure Before wound closure Sequence Count Results Correct, surgeon Correct, surgeon notified notified If Incorrect or Waived complete the Counts Action Taken form: If Intentional Retention, complete the Intential Retention form: Counts Performed By Count Performed By GET ARIAS ST BARNARD, WILL, ST (Scrub) Count Performed By HAYDER EASON RN LONGSWORTH, GARY, RN (RN) Last Modified By: HAYDER EASON RN LONGSWORTH, GARY, RN 12/23/20 07:24:27 12/23/20 09:01:12 S[facility] IntraOp Counts Verification Audit 12/23/20 09:01:12 Energy Advisor: LONGGA Modifier: LONGGA <+> 2 Procedure <+> 2 Count Type <+> 2 Counts Verification Sequence <+> 2 Count Results <+> 2 Count Performed By (Scrub) <+> 2 Count Performed By (RN) S[facility] IntraOp Counts Final Entry 1 Procedure Knee Total Joint Replacement Final Count Info Count Type Sponge, Sharps Counts Verification Skin Closure/end of Sequence procedure Count Results Correct, surgeon notified Counts Performed By Count Performed By Gi Craig Scub Tech (Scrub) Count Performed By HAYDER EASON RN (RN) Last Modified By: HAYDER EASON RN 12/23/20 09:07:55 S[facility] IntraOp Cultures and Spec Summary Entry 1 Cultrures and Specimens Specimen Ordered: Yes Test(s) Routine/Path-Lab Requested/Final Disposition Last Modified By: HAYDER EASON RN 12/23/20 07:24:33 S[facility] IntraOp Delays Entry 1 Delay Reason Other Duration 21 Minute(s) Comment ANESTHESIA STAFF COMPLETING NERVE BLOCK IN PRE-OP AREA Last Modified By: HAYDER EASON RN 12/23/20 08:26:24 S[facility] IntraOp Departure from OR Entry 1 Integumentary Assessment Integumentary WDL Assessment WDL Skin Description Dry (WDL with exeptions) Transfer/Handoff Transfer to PACU Phase I Handoff Method Bedside/Face to face Post-op Transport Bed (including Via specialty) Patient Transport HAYDER EASON, LUCIE, Accompanied by TARA MERA APRN,ESCORT BLIND Last Modified By: HAYDER EASON RN 12/23/20 09:08:10 S[facility] IntraOp Dressing and Packing Entry 1 Type Dressing Location RIGHT KNEE Wound Dressing Item Papo Supplemental Limb immobilizer, Cold Applications pack Applied By Stephan Boyce, LEATHER SEASONER/PRACTICE COORDINATOR Other Comments JONATHAN WOUND DRESSING Last Modified By: HAYDER EASON RN 12/23/20 08:33:12 S[facility] IntraOp Fire Risk Assessment Entry 1 Fire Info Surgical Site or 0- No Incision Above the Xyphoid Open O2 Source 0- No (Mask or Cannula) Available Ignition 1- Yes (ESU, Laser, Light Source) Fire Risk 1 Assessment Score Fire Score Fire Risk Yes Assessment Complete Fire Risk HAYDER EASON RN Assessment Verified By Fire Risk 12/23/20 07:24:00 Assessment Verified Date/Time Fire Risk High Risk Protocol Yes Implemented Standard Fire Yes Safety Precautions Followed Last Modified By: HAYDER EASON RN 12/23/20 07:24:40 S[facility] IntraOp General Case Log Deckman 1 Case Information OR OR 02 SJE Case Level 1 Room Verified Yes Wound Class I - Clean Specialty Orthopedic Anesthesia Type General ASA Class 3 Diagnosis Preop Diagnosis DEGENERATIVE JOINT DISEASE, RIGHT KNEE Postop Same As Preop Yes Postop Diagnosis DEGENERATIVE JOINT DISEASE, RIGHT KNEE Last Modified By: HAYDER EASON RN 12/23/20 08:27:58 S[facility] IntraOp General Case Data Audit 12/23/20 08:27:58 Energy Advisor: YVETTE Modifier: LONGGA 1 <*> OR OR 06 SJE 1 <+> ASA Class 1 <+> Anesthesia Type 1 <+> Postop Same As Preop 1 <+> Preop Diagnosis 1 <+> Postop Diagnosis 1 <+> Room Verified S[facility] IntraOp Implant Log Entry 1 Entry 2 Entry 3 Type Implant (Synthetic) Implant (Synthetic) Implant (Synthetic) Implant Log Implant Type Bone Cement Hardware Hardware Tissue Implant Type Implant CEMENT BONE SMPLX TOBRA IMP PATELLA ITOTAL JIGS CR ITOTAL ID Identification [id number] Description Implant Quantity 2 1 1 Implant Site RIGHT KNEE RIGHT KNEE RIGHT KNEE Implant Identification Model Number Implant [id number] Identification Serial Number Implant [id number] Identification Lot Number Implant [place]:Blake Conformis Conformis Identification Orthopaedics Machine Stone Polisher Apprentice Name: Implant [id number] Identification Catalog Number Implant Size Implant Has an Yes Yes Yes Expiration Date Implant Expiration 01/24/22 09/23/22 12/24/21 Date Wasted Radioactive Material Time Implanted Tissue Implant Continue for Tissue Implant Documentation Tissue Identification Number Graft Prep Per Machine Stone Polisher Apprentice Instructions: Tissue Preparation Method: Reconstitution Solution: Reconstitution Solution Lot Number Reconstitution Solution Expiration Date: Thawing Solution Thawing Solution Lot Number Thawing Solution Expiration Date Preparation Materials, Other Preparation Materials, Other Lot Number Preparation Materials, Other Expiration Date Tissue Prepared/Processed By Machine Stone Polisher Apprentice Paperwork Completed Implant Type Comment Last Modified By: HAYDER EASON RN LONGSWORTH, GARY, RN LONGSWORTH, GARY, RN 12/23/20 08:35:18 12/23/20 08:47:19 12/23/20 08:48:23 Entry 4 Entry 5 Entry 6 Type Implant (Synthetic) Implant (Synthetic) Implant (Synthetic) Implant Log Implant Type Hardware Hardware Hardware Tissue Implant Type Implant IMP CR FEM ITOTAL ID TY CR TIB ITOTAL ID KT CR FULL ITOTAL ID Identification [place] [id number] [id number] Description Implant Quantity 1 1 1 Implant Site RIGHT KNEE RIGHT KNEE RIGHT KNEE Implant Identification Model Number Implant [id number] Identification Serial Number Implant Identification Lot Number Implant Conformis Conformis Conformis Identification Machine Stone Polisher Apprentice Name: Implant [id number] Identification Catalog Number Implant Size Implant Has an Yes Yes Yes Expiration Date Implant Expiration 12/24/21 12/24/21 12/24/21 Date Wasted Radioactive Material Time Implanted Tissue Implant Continue for Tissue Implant Documentation Tissue Identification Number Graft Prep Per Machine Stone Polisher Apprentice Instructions: Tissue Preparation Method: Reconstitution Solution: Reconstitution Solution Lot Number Reconstitution Solution Expiration Date: Thawing Solution Thawing Solution Lot Number Thawing Solution Expiration Date Preparation Materials, Other Preparation Materials, Other Lot Number Preparation Materials, Other Expiration Date Tissue Prepared/Processed By Machine Stone Polisher Apprentice Paperwork Completed Implant Type Comment Last Modified By: HAYDER EASON RN LONGSWORTH, GARY, RN LONGSWORTH, GARY, RN 12/23/20 08:49:46 12/23/20 08:51:06 12/23/20 08:52:02 [facility] IntraOp Implant Log Audit 12/23/20 08:52:02 Energy Advisor: LONGGA Modifier: LONGGA <+> 6 Implant Identification Description <+> 6 Implant Identification Serial Number <+> 6 Implant Identification Machine Stone Polisher Apprentice Name: <+> 6 Implant Expiration Date <+> 6 Implant Site <+> 6 Implant Quantity <+> 6 Implant Identification Catalog Number <+> 6 Implant Type <+> 6 Implant Has an Expiration Date <+> 6 Type 12/23/20 08:51:06 Energy Advisor: LONGGA Modifier: LONGGA <+> 5 Implant Identification Description <+> 5 Implant Identification Serial Number <+> 5 Implant Identification Machine Stone Polisher Apprentice Name: <+> 5 Implant Expiration Date <+> 5 Implant Site <+> 5 Implant Quantity <+> 5 Implant Identification Catalog Number <+> 5 Implant Type <+> 5 Implant Has an Expiration Date <+> 5 Type 12/23/20 08:49:46 Energy Advisor: LONGGA Modifier: LONGGA <+> 4 Implant Identification Description <+> 4 Implant Identification Serial Number <+> 4 Implant Identification Machine Stone Polisher Apprentice Name: <+> 4 Implant Expiration Date <+> 4 Implant Site <+> 4 Implant Quantity <+> 4 Implant Identification Catalog Number <+> 4 Implant Type <+> 4 Implant Has an Expiration Date <+> 4 Type 12/23/20 08:48:24 Energy Advisor: LONGGA Modifier: LONGGA <+> 3 Implant Expiration Date 12/23/20 08:48:23 Energy Advisor: LONGGA Modifier: LONGGA <+> 3 Implant Identification Description <+> 3 Implant Identification Serial Number <+> 3 Implant Identification Machine Stone Polisher Apprentice Name: <+> 3 Implant Site <+> 3 Implant Quantity <+> 3 Implant Identification Catalog Number <+> 3 Implant Type <+> 3 Implant Has an Expiration Date <+> 3 Type 12/23/20 08:47:19 Energy Advisor: LONGGA Modifier: LONGGA <+> 2 Implant Identification Description <+> 2 Implant Identification Lot Number <+> 2 Implant Identification Machine Stone Polisher Apprentice Name: <+> 2 Implant Expiration Date <+> 2 Implant Site <+> 2 Implant Quantity <+> 2 Implant Identification Catalog Number <+> 2 Implant Type <+> 2 Implant Has an Expiration Date <+> 2 Type [facility] IntraOp Intraoperative Assessment Entry 1 Handoff Method Bedside/Face to face Valid History / Yes Physical in Chart Preoperative Yes Checklist Reviewed/Evaluated Allergies Reviewed Yes Patient is Latex No Sensitive Isolation Not applicable Precautions Noted Level of WDL Consciousness (WDL = Alert, Oriented to Person, Place, and Time) Skin Assessment Yes Verified Present Upon IVs Arrival to OR Last Modified By: HAYDER EASON RN 12/23/20 08:21:01 [facility] IntraOp Intraoperative Equipment Entry 1 Type Equipment Equipment Equipment Betty Suction System ID Number [id number] Setting HIGH Intraop Monitoring Antiembolic Devices Antiembolic Devices Foot pumps Antiembolic Device Left Location Scopes Photo/Video Documentation Last Modified By: HAYDER EASON RN 12/23/20 08:27:19 S[facility] IntraOp Medication Admin Entry 1 Entry 2 Entry 3 Medication/Irrigant clonidine 1ml Ketorolac 30mg/ml vial ROPIVICAINE 5% Combo Med List 1 - Combo Med 2 - Combo Med 3 - Combo Med Time Administered Route of INJECTION INJECTION INJECTION Administration Dose Dose 0.16 30 25 Unit of Measure ml ml ml Volume Administered By KAYLA ZIMMERMAN JR, JR, KAYLA ZIMMERMAN JR, JR, HUFF JR, WALLACE JR, MD-ORT [facility]AL[facility]-ORT Procedure Irrigation Irrigant Volume In Irrigant Volume Out Last Modified By: HAYDER EASON RN LONGSWORTH, GARY, RN LONGSWORTH, GARY, RN 12/23/20 08:32:34 12/23/20 08:32:34 12/23/20 08:32:34 Entry 4 Entry 5 Medication/Irrigant lidocaine 1% w/ vancomycin 1Gm vial - epinephrine 1:100,000 [id number] 20ml vial - [id number] Combo Med List 4 - Combo Med Time Administered Route of INJECTION. ADDED TO BONE CEMENT Administration Dose Dose 23.84 1 Unit of Measure ml gram Volume Administered By KAYLA ZIMMERMAN JR, JR, HUFF JR, WALLACE JR, MD-ORT MD-ORT Procedure Irrigation Irrigant Volume In Irrigant Volume Out Last Modified By: HAYDER EASON RN LONGSWORTH, GARY, RN 12/23/20 08:32:34 12/23/20 08:39:42 S[facility] IntraOp Medication Admin Audit 12/23/20 08:39:42 Energy Advisor: LONGGA Modifier: LONGGA <+> 5 Medication/Irrigant <+> 5 Route of Administration <+> 5 Administered By <+> 5 Dose <+> 5 Unit of Measure SJE IntraOp Patient Positioning Entry 1 Procedure Knee Total Joint Replacement Body Position Supine Left Arm Position Secured on padded arm board Right Arm Position Secured on padded arm board Left Leg Position Uncrossed, parallel Right Leg Position Held on field Feet Uncrossed Yes Pressure Points Yes Checked Positioning Devices Arm Board, Pillows, Foot Rest, Safety Strap, Chest Device Position LATERAL POST TO RIGHT THIGH, FOOT PROPS X2 FOR RIGHT FOOT Positioned By HAYDER EASON RN, KAYLA ZIMMERMAN JR, JR, MD-ORT, TARA MERA, BRAILLE PROOFREADER,PAPO, [place], Stephan, LEATHER SEASONER/PRACTICE COORDINATOR Position Verified Positioning Yes Verified by Anesthesia Positioning Yes Verified by Surgeon Last Modified By: HAYDER EASON RN 12/23/20 07:25:44 [facility] IntraOp Sign In Entry 1 Patient, Site, Yes Procedure Identified Surgical Consent Yes Confirmed Surgical Site Yes Marked by person performing procedure Anesthesia Machine Yes Check Completed Medication Checks Yes Completed Airway Hypothermia Risk Yes Warming Measures Yes Taken Last Modified By: HAYDER EASON RN 12/23/20 08:21:19 [facility] Intra Op Sign Out Entry 1 RN Confirmation Surgical Yes Procedure(s) Identified Instrument, Sponge Yes and Sharps Counts Correct/Documented Equipment Problems N/A Documented Specimen Labeled Yes Correctly Urinary Catheter N/A Documented in IView Bhakta Patient Yes Recovery Concerns Reviewed with Anesthesia Provider, Surgeon and RN Bhakta Patient Yes Management Concerns Reviewed with Anesthesia Provider, Surgeon and RN Safety Checklist Yes Elements Complete? RN Sign Out HAYDER EASON RN Signature RN Sign Out 12/23/20 09:01:00 Signature Date/Time Plan of Care Outcome - Fire Risk OUTCOME STATEMENT: Goal met Patient is free from injury related to surgical fire Plan of Care Outcome - Pt Positioning OUTCOME STATEMENT: Goal met Absence of signs and symptoms of positioning injury. Plan of Care Outcome - Skin Prep OUTCOME STATEMENT: Goal met Intraoperative care is consistent with measures to prevent infection Plan of Care Outcome - Xray/Images OUTCOME STATEMENT: N/A Absence of observable signs or symptoms of radiation injury Plan of Care Outcome - Counts OUTCOME STATEMENT: Goal met Absence of signs and symptoms of injury related to extraneous objects Last Modified By: HAYDER EASON RN 12/23/20 09:01:35 SJE IntraOp Skin Prep Entry 1 Procedure Knee Total Joint Replacement Prescribed Yes Pre-Surgical Prep Completed Prep Area RIGHT LEG AND FOOT Intraop Prep Integumentary WDL Assessment WDL Prep Agents Chloraprep Prep by HAYDER EASON RN Hair Removal Methods No hair removal performed Last Modified By: HAYDER EASON RN 12/23/20 07:26:09 SJE IntraOp Surgical Procedures Entry 1 Procedure Knee Total Joint Replacement Additional RIGHT TOTAL KNEE Procedure REPLACEMENT Description Primary Procedure Yes Primary Surgeon KAYLA ZIMMERMAN JR, JR, MD-ORT Start 12/23/20 08:11:00 Stop 12/23/20 09:53:00 Anesthesia Type General Specialty Orthopedic Wound Class I - Clean Last Modified By: HAYDER EASON RN 12/23/20 07:25:49 SJE IntraOp Surgical Procedures Audit 12/23/20 09:51:54 Energy Advisor: LONGGA Modifier: LONGGA 1 <*> Procedure Knee Total Joint Replacement 1 <+> Stop 12/23/20 08:21:22 Energy Advisor: LONGGA Modifier: LONGGA <+> 1 Start SJE IntraOp Temp Regulation Devices Entry 1 Temp Regulation Temperature Warm blankets Regulation Device Temperature Upper body Regulation Site Temperature KINALPAW, TARA, BRAILLE PROOFREADER,ESCORT BLIND Regulation Device Applied by Last Modified By: HAYDER EASON RN 12/23/20 08:29:47 SJE IntraOp Time Out Entry 1 Procedure to be Knee Total Joint Performed Replacement Time Out Time Out Pause Time 12/23/20 08:10:00 All activity Yes suspended (unless life threatening emergency) Team Verbally Correct patient Confirms Information identity, Correct side and site are marked, Consent form is present and accurate, Agreement on the procedure to be done, Correct patient position, Relevant images/results properly labeled/appropriately displayed, Confirm antibiotics have been administered, Confirm the skin prep has dried, Confirm prosthesis/implant/devic e is present, Performed in location of procedure after prepped/draped, Performed before each procedure if multiple procedures Antibiotic Yes Prophylaxis Administered Or In Progress Within the Last 60 Minutes Beta Erasto N/A Administered Venous Yes Thromboembolism Prophylaxis Required Anticipated Critical Events Surgeon None expected Anesthesia Provider Patient specific concerns Nursing Assures Sterility of instruments, Equipment concerns or issues, Implant Availability Essential Imaging Yes Labeled and Displayed Last Modified By: HAYDER EASON RN 12/23/20 08:31:31 S[facility] IntraOp Time Out Audit 12/23/20 08:31:31 Energy Advisor: YVETTE Modifier: YVETTE 1 <+> Surgeon 1 <+> Anesthesia Provider 1 <+> Nursing Assures 1 <+> Essential Imaging Labeled and Displayed 1 <*> Time Out Pause Time 12/23/20 08:11:00 1 <*> Procedure to be Performed Knee Total Joint Replacement SJE IntraOp Tourniquet Entry 1 Type Pneumatic Setting 300 mmHg Pheumatic Yes Tourniquet Checked Per Protocol Size 34 inches Placement Thigh, right upper Skin Protection - Yes Padded Under Cuff Applied By Stephan Boyce CST/PRACTICE COORDINATOR Times Start Time 12/23/20 08:10:00 Stop Time 12/23/20 08:59:00 Last Modified By: HAYDER EASON RN 12/23/20 09:00:54 SJE IntraOp Tourniquet Audit 12/23/20 09:00:54 Energy Advisor: YVETTE Modifier: TANAGA <+> 1 Stop Time Case Comments <None> Finalized By: HAYDER EASON, RN Document Signatures Signed By: HAYDER EASON RN 12/23/20 09:59 documented in this encounter Plan of Treatment Not on file documented as of this encounter Visit Diagnoses Not on filedocumented in this encounter
--- OUTSIDE RECORDS SUMMARY | 2024-09-06 09:14 | XMS_ITS | Encounter Summary ---
Author Organization [facility] Address [address] [place] [address] Care Team Providers Care University Partnership Rep Name Role Phone Unavailable Primary Care Provider Unavailabl e Encounter Details Date Type Department Care Team (Late st Contact Info) Description 12/09/2020 Transcribed Document [facility] [place] [facility] [place] [address] ProviderJaime MD [address], [place] [id number] Social History Tobacco Use Types Packs/Day Years Used Date Smoking Tobacco: Never Assessed Sex and Gender Information Value Date Recorded Sex Assigned at Not on file Legal Sex Male 5:28 PM CDT Gender Identity Not on file Sexual Orientation Not on file documented as of this encounter Miscellaneous Notes * Cerner Conversion Note - Jaime ProviderMD - 12/09/2020 3:57 PM CDT PAT Adult Entered On: 12/09/2020 15:58 EDT Performed On: 12/09/2020 15:57 EDT by Michaela Alvarez Rn Vital Measurements Temperature Source : Temporal artery scanning Temperature Mode : Fahrenheit Temperature, Fahrenheit : 98.6 Deg F Clinical Temperature, C : 37 Deg C Peripheral Pulse Rate : 92 bpm Respiratory Rate : 16 Breaths/Min Systolic Blood Pressure : 121 mmHg Diastolic Blood Pressure : 69 mmHg Oxygen Saturation : 97 % Oxygen Therapy Mode : Room air Michaela Alvarez Rn - 12/09/2020 15:57 EDT Height and Weight, Clinical Dosing Height, Feet : 5 ft(Converted to: 152 cm, 60 Inch) Height, Inches : 9 Inch(Converted to: 0 ft 9 Inch, 22.86 cm) Clinical Height : 175.26 cm Weight Source : Standing scale Weight Entry Format : Island Clinical Dosing Weight : 95.91 kg Weight, Pounds : 211 lb Body Surface Area (BSA) : 2.12 m2 Body Mass Index : 31.2 kg/m2 (HI) [place] Body Weight : 70 kg Michaela Alvarez Rn - 12/09/2020 16:02 EDT Height Source : Stated Height Entry Format : Island Michaela Alvarez Rn - 12/09/2020 15:57 EDT Health Histories Smoking Status : Never (less than 100 in lifetime; none in last 30 days) Smokeless Tobacco Status : Never Michaela Alvarez Rn - 12/09/2020 16:02 EDT Social History (As Of: 12/09/2020 16:10:12 EDT) Tobacco: Smoking Status Never smoker. (Last [...] Patient want a COVID-19 Vaccine? : No Michaela Alvarez Rn - 12/09/2020 16:02 EDT Infectious Disease Risk Screening Grid Cough < 2 wks of unknown origin : NO Cough > 2 weeks : NO Blood in Sputum : NO Fever or self-reported Fever : NO Rash of unknown origin : NO Headache : NO Stiff neck : NO Night Sweats : NO Unexplained Weight Loss : NO Diarrhea (3 episode per day) : NO Michaela Alvarez Rn - 12/09/2020 16:02 EDT Physical contact outside [place] in the last 30 days : No Hospitalized in Foreign Country : No Infectious Disease History : Influenza INF Disease TB Screening Calc : 0 INF Disease Recent Travel Calc : 0 Michaela Alvarez Rn - 12/09/2020 16:02 EDT COVID19 PreProcedure Screening Is this an Emergent or Add on Procedure? : No Date PreProcedure COVID-19 test known? : No Has patient been isolated since the test : N/A - PreProcedure, in-person visit Exposed to COVID19 symptoms since test? : N/A - PreProcedure, in-person visit Michaela Alvarez Rn - 12/09/2020 16:02 EDT Anesthesia/Transfusion History Family History of Anesthesia Reaction : No prior transfusion(s) Transfusion History : Prior anesthesia without reaction Family History of Anesthesia Reaction : None Michaela Alvarez Rn - 12/09/2020 16:02 EDT Advance Directive Patient has Advance Directive *Q : Yes, Advance Directive not with the patient Advance Directive Type : Living will Copy Advance Directive Verified/on Chart : No Michaela Alvarez Rn - 12/09/2020 16:02 EDT [place] Suicide Severity Rating Scale (C-SSRS) CSSRS Past Month Wish to be : No CSSRS Past Month Suicidal Thoughts : No CSSRS Lifetime Suicide Behavior : No Suicide Severity Rating Score : 0 Suicide Severity Rating : No Additional Care Required at this time Michaela Alvarez Rn - 12/09/2020 16:02 EDT Psychosocial History Do You Have a History of the Following? : Patient denies history Currently in Unsafe Situation : No Michaela Alvarez Rn - 12/09/2020 16:02 EDT Teaching/Learning Assessment Barriers To Learning : None evident Individuals Taught : Patient Readiness to Learn : Cooperative Readiness to Learn : Explanation, Printed materials Learning Style Preferences Patient : Printed materials, Verbal explanation Michaela Alvarez Rn - 12/09/2020 16:02 EDT Education Topics, Periop Preadmission Perioperative Education Grid Arrival Time/Place : Verbalizes understanding CHG Preoperative Bathing/Cloths : Verbalizes understanding NPO Status/Directions : Verbalizes understanding Preprocedure Preparations : Verbalizes understanding Preprocedure Tests/Labs : Verbalizes understanding Responsible Adult : Verbalizes understanding Take/Hold Medications Pre-Procedure : Verbalizes understanding Michaela Alvarez Rn - 12/09/2020 16:02 EDT General Info Arrived From : Home Mode of Arrival on Unit : Ambulatory Legal Guardian : Unaccompanied Support Person/Pt Rep Name : Marcie Esteban Family/Rep/Phys Notified of Admit : No Emergency Contact #1 : aMrcie Emergency Contact #1 Emergency Contact #1 Relationship : Emergency Contact #2 : . Emergency Contact #2 Phone Number : . Emergency Contact #2 Relationship : . Information Obtained From : Patient Primary Language : Palauan Preferred Communication Mode : Verbal Communication Barrier : None Entry Level Paralegal Needed : No Michaela Alvarez Rn - 12/09/2020 16:02 EDT Yang Scale Yang Sensory Perception : No impairment Yang Moisture : Rarely moist Yang Activity : Walks occasionally Yang Mobility : Slightly limited Yang Nutrition : Adequate Yang Friction and Shear : No apparent problem Yang Score : 20 Michaela Alvarez Rn - 12/09/2020 16:02 EDT Sleep Apnea Risk Assmt BiPAP/CPAP Ordered for Home Use : No Hx of Obstructive Sleep Apnea Diagnosis : Yes Age over 50 Years Old : Yes Gender Male : Yes Michaela Alvarez Rn - 12/09/2020 16:02 EDT documented in this encounter Plan of Treatment Not on file documented as of this encounter Visit Diagnoses Not on filedocumented in this encounter
--- OUTSIDE RECORDS SUMMARY | 2024-09-06 09:14 | XMS_ITS | Encounter Summary ---
Author Organization [facility] [employer] [facility] Address [address] [place] [address] Care Team Providers Care Bilingual Instructor Name Role Phone Unavailable Primary Care Provider Unavailabl e Encounter Details Date Type Department Care Team (Late st Contact Info) Description 12/09/2020 Transcribed Document [facility] [place] [facility] [address] ProviderJaime MD [address], [place] [id number] Social History Tobacco Use Types Packs/Day Years Used Date Smoking Tobacco: Never Assessed Sex and Gender Information Value Date Recorded Sex Assigned at Not on file Legal Sex Male 5:28 PM CDT Gender Identity Not on file Sexual Orientation Not on file documented as of this encounter Miscellaneous Notes * Cerner Conversion Note - Historical ProviderMD - 12/09/2020 3:00 PM CDT Patient: AYLEEN BLACK Age: 70 Years Sex: Male : 1950 Chief Complaint Right Knee Pain History of Present Illness This patient is a pleasant 70 yo WM who presents with right knee pain. The pain has been going on for 15 years but has gotten progressively worse. He describes it as a sharp pain. It is now to the point that it is affecting his ADLs. He has tried NSAIDs and injections without relief of his pain. He has fallen. He has not used an assistive device. He was seen at Dr Hartman's office and evaluated and it was determined that he has severe DJD affecting the right knee. Pt was offered a Right Total Knee Arthroplasty and agreed to the procedure. Pt denies a h/o DVT/PE. No trouble with anesthesia in the past. Pt has a h/o CATHLEEN but refuses CPAP. No asthma or COPD. Review of Systems Constitutional: Neg for fevers or chills. Eyes: Neg for blurry vision or change in vision. ENT: Neg for sore throat, ear pain, or dizziness. Cardiac: Neg for chest pain or dyspnea on exertion. Respiratory: Neg for shortness of breath. Gastrointestinal: Neg for nausea, vomiting, diarrhea, or constipation. Musculoskeletal: Pos for right knee pain. Neurologic: Neg for headaches or seizures. Psychiatric: Neg for anxiety and depression. Integumentary: Neg for rash. Vital Signs T: 37 ??C HR: 92(Peripheral) RR: 16 BP: 121/69 SpO2: 97% HT: 175.26 cm WT: 95.91 kg BMI: 31.2 Oxygen Settings (Last) Oxygen Therapy Mode: Room air (12/09/20 15:57:00) Physical Exam Constitutional: This is a pleasant 70 yo WM in no acute distress. HEENT: Normocephalic, atraumatic. PEERLA. Extraocular muscles intact. Conjunctiva pink without exudate. Oropharynx pink and moist. Neck supple. No JVD. Cardiac: SI, S2. RRR. No M/R/G. Respiratory: Lungs CTA bilaterally. No wheezes, rales, or rhonchi. Abdomen: Soft, nontender, nondistended. Active bowel sounds. No visible masses. Musculoskeletal: Bilateral LE without clubbing, cyanosis or edema. Integumentary: Skin is pink, warm and dry. No rashes. Neurologic: CN II-XII grossly intact. Psychiatric: Judgment and affect appropriate. Assessment/Plan 1. Preoperative Evaluation- Pt underwent preoperative laboratory workup and diagnostic studies. 2. Diabetes Mellitus- FSBS and SSI. 3. Hypertension- Continue Losartan. 4. Hyperlipidemia- Continue Simvastatin. 5. CAD- Pt received cardiac clearance from Dr Biggs. Plavix on hold 7 days prior to surgery. 6. CATHLEEN- Pt refuses CPAP. 7. Right Knee Pain secondary to DJD- Proceed with surgery as scheduled with Dr Hartman on 12/16/2020. BASED ON THIS INFORMATION, I FEEL THAT THIS PATIENT SHOULD REQUIRE OUTPATIENT HOSPITALIZATION UNLESS DEEMED OTHERWISE APPROPRIATE BY THE ORTHOPEDIC SURGEON GIVEN THE COMPLEXITY OF THE OPERATION. THIS PATIENT WILL BE A GREAT FAST TRACK CANDIDATE. Problem List/Past Medical History Ongoing Arthritis CAD (coronary artery disease) COVID-19 Diabetes Diverticulitis High cholesterol History of obstructive sleep apnea Hypertension IBS (irritable bowel syndrome) Kidney stones RA (rheumatoid arthritis) Procedure/Surgical History Cholecystectomy, Colonoscopy, EGD - Esophagogastroduodenoscopy, Hernia., Knee, lymph node drained from right arm pit, right upper thigh boil, Rotator cuff. Home Medications (19) Active Actos 30 mg, Oral, Daily aspirin 81 mg, Oral, Daily Benadryl 25 mg, Oral, At Bedtime cyclobenzaprine 5 mg, Oral, QPM diclofenac sodium 75 mg oral delayed release tablet 75 mg = 1 Tab, Oral, BID dicyclomine 10 mg, Oral, Daily Fiber Lax 625 mg oral tablet 1,250 mg = 2 Tab, Oral, Daily glycopyrrolate 2 mg oral tablet 2 mg = 1 Tab, Oral, BID losartan 50 mg, Oral, Daily Plavix 75 mg, Oral, Daily potassium gluconate 595 mg (99 mg elemental potassium) oral tablet 1 Tab, Oral, Daily simvastatin 20 mg, Oral, Daily traMADol 50 mg, Oral, BID Tylenol 1,000 mg, Oral, At Bedtime Vitamin B6 400 mg, Oral, Daily Vitamin C 500 mg, Oral, Daily Vitamin D3 125 mcg, Oral, Daily vitamin E 400 Int Units, Oral, Daily Zinc 50 mg, Oral, Daily Allergies penicillin (itchy) Social History Alcohol Alcohol Use History No. Use in Last 12 Months: No. Substance Abuse Drug Use Hx: No. Use in Last 12 Months: No. Tobacco Never (less than 100 in lifetime) Smoking Status. Never Smokeless Tobacco Status. Smoking Status Never smoker. Family History Pt mother at 79 from a breathing disorder. Pt father from a CVA at 72. Diagnostic Results EKG- Sinus Rhythm, 92 CXR- COPD, NAD Lab Results Test Name Test Result Date/Time Hgb A1C 7.50 % (High) 12/09/2020 16:01 EDT eAVG Glucose 169 mg/dL 12/09/2020 16:01 EDT PT 10.6 Second(s) 12/09/2020 16:01 EDT INR 1.0 12/09/2020 16:01 EDT PTT 27.5 Second(s) 12/09/2020 16:01 EDT Urine Type. U CleanCatch 12/09/2020 16:01 EDT Urine Color YELLOW2 12/09/2020 16:01 EDT Urine Appearance CLEAR2 12/09/2020 16:01 EDT Urine Specific [place] *1.026 12/09/2020 16:01 EDT Urine pH Dipstick *5.0 12/09/2020 16:01 EDT Urine Leukocyte Esterase NEGATIVE2 12/09/2020 16:01 EDT Urine Nitrite NEGATIVE2 12/09/2020 16:01 EDT Urine Protein Dipstick TRACE2 (Abnormal) 12/09/2020 16:01 EDT Urine Glucose Dipstick NEGATIVE2 12/09/2020 16:01 EDT Urine Ketones Dipstick NEGATIVE2 12/09/2020 16:01 EDT Urine Urobilinogen Dipstick 0.2 12/09/2020 16:01 EDT Urine Bilirubin Dipstick NEGATIVE2 12/09/2020 16:01 EDT Urine Blood Dipstick NEGATIVE2 12/09/2020 16:01 EDT Ur RBC 0-2 (Abnormal) 12/09/2020 16:01 EDT Ur WBC 0-2 12/09/2020 16:01 EDT Ur Bacteria Trace (Abnormal) 12/09/2020 16:01 EDT Ur Squamous Epithelial Cells 0-2 12/09/2020 16:01 EDT Ur Hyaline Casts 2-5 (Abnormal) 12/09/2020 16:01 EDT Urine Culture if Indicated Not Indicated 12/09/2020 16:01 EDT WBCs- 5.2 Hbg- 13.2 Hct- 41.6 Plts- 298 Glucose- 150 Na- 139 K- 4.4 BUN- 12 Cr- 0.80 GFR- 116 Albumin- 4.1 documented in this encounter Plan of Treatment Not on file documented as of this encounter Visit Diagnoses Not on filedocumented in this encounter
--- OUTSIDE RECORDS SUMMARY | 2024-09-06 09:14 | XMS_ITS | Encounter Summary ---
Author Organization [facility] Address [address] [place] [address] Care Team Providers Care Kiln Stacker Name Role Phone Unavailable Primary Care Provider Unavailabl e Encounter Details Date Type Department Care Team (Late st Contact Info) Description 12/16/2020 Transcribed Document [facility] [place] [facility] [place] [address] ProviderJaime MD [address] [place] [address] Social History Tobacco Use Types Packs/Day Years Used Date Smoking Tobacco: Never Assessed Sex and Gender Information Value Date Recorded Sex Assigned at Not on file Legal Sex Male 5:28 PM CDT Gender Identity Not on file Sexual Orientation Not on file documented as of this encounter Miscellaneous Notes * Cerner Conversion Note - Historical ProviderMD - 12/16/2020 7:48 AM CDT Event Note Entered On: 12/16/2020 7:49 EDT Performed On: 12/16/2020 7:48 EDT by CIARA WOODS RN Event Note Event Date/Time : 12/16/2020 7:46 EDT Description of Event : Patient discharged home due to surrgery being cancelled CIARA WOODS RN - 12/16/2020 7:48 EDT documented in this encounter Plan of Treatment Not on file documented as of this encounter Visit Diagnoses Not on filedocumented in this encounter
--- OUTSIDE RECORDS SUMMARY | 2024-09-06 09:14 | XMS_ITS | Encounter Summary ---
Author Organization [facility] Address [address] [place] [address] Care Team Providers Care Typing Secretary Name Role Phone Unavailable Primary Care Provider Unavailabl e Encounter Details Date Type Department Care Team (Late st Contact Info) Description 12/08/2020 Transcribed Document [facility] [place] [facility] [place] [address] ProviderJaime MD [address], [place] [id number] Social History Tobacco Use Types Packs/Day Years Used Date Smoking Tobacco: Never Assessed Sex and Gender Information Value Date Recorded Sex Assigned at Not on file Legal Sex Male 5:28 PM CDT Gender Identity Not on file Sexual Orientation Not on file documented as of this encounter Miscellaneous Notes * Cerner Conversion Note - Jaime ProviderMD - 12/08/2020 3:21 PM CDT UM Authorization Entered On: 12/08/2020 15:23 EDT Performed On: 12/08/2020 15:21 EDT by ROLANDO TABARES RN-Utilization Review Primary Insurance Authorization Authorization and Policy Numbers : Insurance 1 Health Plan: AET MEDICARE REPL Policy Number: [id number] Authorization Number: Insurance Primary Name : [employer] MEDICARE REPL Policy Number: [id number] Authorization Status-Primary : Opo status approv Authorized Service Begin Date-Primary : 12/16/2020 EDT Observation Authorization Nbr-Primary : [id number] Authorization Comments-Primary : [facility] Medicare approved for outpt per availity Historical Authorization Comments-Primary : No Authorization Comments Found ROLANDO TABARES RN-Utilization Review - 12/08/2020 15:21 EDT documented in this encounter Plan of Treatment Not on file documented as of this encounter Visit Diagnoses Not on filedocumented in this encounter
--- OUTSIDE RECORDS SUMMARY | 2024-09-06 09:14 | XMS_ITS | Encounter Summary ---
Author Organization [facility] Address [address] [place] [address] Care Team Providers Care Supervisor Core Drilling Name Role Phone Unavailable Primary Care Provider Unavailabl e Encounter Details Date Type Department Care Team (Late st Contact Info) Description 12/23/2020 Transcribed Document [facility] [place] [facility] [place] [address] ProviderJaime MD [address] [place] [address] Social History Tobacco Use Types Packs/Day Years Used Date Smoking Tobacco: Never Assessed Sex and Gender Information Value Date Recorded Sex Assigned at Not on file Legal Sex Male 5:28 PM CDT Gender Identity Not on file Sexual Orientation Not on file documented as of this encounter Miscellaneous Notes * Cerner Conversion Note - Jaime ProviderMD - 12/23/2020 2:44 PM CDT On Going Discharge Planning Entered On: 12/23/2020 14:44 EDT Performed On: 12/23/2020 14:44 EDT by ANGELA NGUYEN RN Care Management Progress Note Discharge Arrangements : Patient Post-Acute Information Patient Name: AYLEEN BLACK III Gender: Male : [birth year] Age: 70 Years No Post-Acute Placement(s) Listed No Post-Acute Service(s) Listed No [place] Referral(s) Listed Discharge Options Discussed with Patient : Discharge transportation, DME, Home Health Barriers to Discharge Identified : None identified Barriers to Discharge Unresolved : All resolved Patient Discharge Goal : Home health care Patient Offered Choice/Affiliations Explained : Yes Designation of Choice Signed : Yes List/Info Provided Pt/Fam/Support Person : Durable medical equipment, Home health Were Referrals Sent to Post Acute Providers : Yes [facility] Quality Web Info Shared w Pt/Fam : Yes Does the Patient have a Floor to SNF Benefit? : Yes Is the Patient Meeting Medical Necessity : Yes Physician Agreeable to Move Forward with D/C Plan? : Yes Did you Attend Multidisciplinary Rounds? : No ANGELA NGUYEN RN - 12/23/2020 14:44 EDT Narrative Progress Note Narrative Progress Note : 70 y/o male s/p RTK [...] needs identified. ANGELA NGUYEN RN - 12/23/2020 14:44 EDT Electronically signed by Adolph Crowder Conversion Advanced Research Programs Director Cerner at 07/09/2022 10:41 AM CDT documented in this encounter Plan of Treatment Not on file documented as of this encounter Visit Diagnoses Not on filedocumented in this encounter
[2024-09-09 10:42] LABS: Pancreatic Elastase, Fecal >800 (>200)
[2024-09-10 14:11] LABS: Calprotectin, Fecal 120 ug/g (0-120)
== END 2024-09-06 23:59 | disposition home or self-care (01) ==
LOC: LAB 09:11
PROVIDERS: PCP Family Medicine; Visit Provider Nurse Practitioner Family
DX: K52.9 Noninfective gastroenteritis and colitis, unspecified (principal)
CPT/HCPCS: 82656; 83993

== ENCOUNTER 2024-10-01 11:42 | Emergency (ER) | payer MEDICARE, SELFPAY ==
[2024-10-01 11:48] VITALS: BP 134/84; PULSE 83; O2SAT 98
--- OUTSIDE RECORDS SUMMARY | 2024-10-01 11:51 | XMS_ITS | Clinical Summary ---
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 12/16 Imelda Hollis Nonspecific tuberculin test reaction + 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 R76.12 (ICD-10-CM ) 09/18 Active 09/18 Imelda Bunny 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 gamma interferon antigen response without active tuberculosis Edema, limb 557209608 (SNOMED CT) 09/21 Resolved 09/21 Imelda Hollis Edema of extremity Right Leg Edema, limb 729125501 (SNOMED CT) 09/21 Removed 09/21 Jer Zhang MD Edema of extremity Right Leg 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, 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 (ICD-10-CM ) 09/18 Active 09/18 Imelda Bunny Rheumatoid arthritis without rheumatoid factor, multiple sites DM Type II E11.9 (ICD-10-CM ) 09/18 Active 09/18 Imelda Hollis Type 2 diabetes mellitus without complications + QuantiFERON GOLD-TB skin test w/o active TB R76.12 (ICD-10-CM ) 09/18 Inactive 09/18 Imelda Hollis 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 gamma interferon antigen response without active tuberculosis Medications Medication Instructions Start Date Stop Date Generic Name NDC Provider AZITHROMYCIN 250 MG TABS TAKE 2 TABLETS BY MOUTH ON DAY 1 AND THEN TAKE 1 TABLET BY MOUTH ONCE A DAY ON DAY 2 THROUGH DAY 5 12/19 azithromycin 12478326673 Cinda Rolando BENZONATATE 100 MG CAPS Take 1 capsule by mouth three times a day as needed 12/19 BENZONATATE Cinda Fu TRIAZOLAM 0.25 MG TABS Take 1 tablet by mouth 12/19 triazolam 41421875430 Cinda Fu LORAZEPAM 1 MG TABS Take 1 tablet 12/19 lorazepam 24344751270 Cinda Fu LEVOFLOXACIN 750 MG TABS Take 1 tablet by mouth once a day 12/19 levofloxacin 48181043218 Cinda Rolando LOSARTAN POTASSIUM 50 MG TABS one tab oral daily 12/19 losartan 95102851982 Cinda Rolando NYSTATIN 954909 UNIT/GM OINT Apply to skin once a day 12/19 nystatin 00192496318 Cinda Fu RIFAMPIN 300 MG CAPS Take 2 by mouth once a day 12/19 rifampin 00025833606 Cinda Rolando CYCLOBENZAPRINE HCL 5 MG TABS one tab oral daily 12/19 cyclobenzaprine 73870636588 Cinda Fu ISONIAZID 300 MG TABS Take 1 tablet by mouth once a day 12/19 isoniazid 30773813311 Cinda PROMETHAZINE-CODEI NE 6.25-10 MG/5ML SYRP Take 5 ml by mouth twice a day 12/19 promethazine-code ine 24521184661 Cinda Fu DICYCLOMINE HCL 10 MG CAPS 1 cap oral twice a day 12/19 dicyclomine 59462399941 Cinda Fu CLOPIDOGREL BISULFATE 75 MG TABS Take 1 tablet by mouth once a day 12/19 clopidogrel 05098796805 Cinda Marshall HYDROCOD POLST-CPM POLST ER 10-8 MG/5ML ORAL SUSPENSION EXTENDED RELEASE Take 1 teaspoon by mouth twice a day 12/19 HYDROCOD POLST-CPM POLST ER 10-8 MG/5ML ORAL SUSPENSION EXTENDED RELEASE Cinda Marshall PLAVIX 75 MG TABS once a day clopidogrel 2525246 7190 Cinda Marshall TRIAZOLAM 0.25 MG TABS Take 1 tablet by mouth 09/24 triazolam 21824238685 Melvin Hartman ISONIAZID 300 MG TABS Take 1 tablet by mouth once a day 12/19 isoniazid 60754279151 Melvin Hartman CLOPIDOGREL BISULFATE 75 MG TABS Take 1 tablet by mouth once a day 12/19 clopidogrel 69090319981 Melvin Hartman LORAZEPAM 1 MG TABS Take 1 tablet 12/19 lorazepam 02744195452 Melvin Hartman NYSTATIN 154050 UNIT/GM OINT Apply to skin once a day 12/19 nystatin 94232092268 Melvin Hartman HYDROCOD POLST-CPM POLST ER 10-8 MG/5ML ORAL SUSPENSION EXTENDED RELEASE Take 1 teaspoon by mouth twice a day 12/19 HYDROCOD POLST-CPM POLST ER 10-8 MG/5ML ORAL SUSPENSION EXTENDED RELEASE Melvin Hartman AZITHROMYCIN 250 MG TABS TAKE 2 TABLETS BY MOUTH ON DAY 1 AND THEN TAKE 1 TABLET BY MOUTH ONCE A DAY ON DAY 2 THROUGH DAY 5 09/24 azithromycin 50749453304 Melvin Hartman RIFAMPIN 300 MG CAPS Take 2 by mouth once a day 09/24 rifampin 14500947773 Melvin Hartman PROMETHAZINE-CODEI NE 6.25-10 MG/5ML SYRP Take 5 ml by mouth twice a day 05/09 promethazine-code ine 58300662653 Melvin Hartman BENZONATATE 100 MG CAPS Take 1 capsule by mouth three times a day as needed 12/19 BENZONATATE Melvin Hartman LEVOFLOXACIN 750 MG TABS Take 1 tablet by mouth once a day 12/19 levofloxacin 32697096380 Melvin Hartman DICYCLOMINE HCL 10 MG CAPS 1 cap oral twice a day 09/24 dicyclomine 26043265975 Melvin Hartman SIMVASTATIN 20 MG TABS one tab oral daily simvastatin 09200793499 Melvin Hartman LOSARTAN POTASSIUM 50 MG TABS one tab oral daily 09/24 losartan 40583909078 Melvin Hartman CYCLOBENZAPRINE HCL 5 MG TABS one tab oral daily 09/24 cyclobenzaprine 79963301939 Melvin Hartman TRAMADOL HCL 50 MG TABS one tab every 6 hours prn tramadol 81022608207 Melvin Hartman METFORMIN HCL 500 MG TABS one tab oral twice a day metformin 50020135712 Melvin Hartman RIFAMPIN 300 MG CAPS take 2 po daily 09/24 RIFAMPIN 80537197500 Jer Zhang MD ISONIAZID 300 MG TABS Take 1 tablet by mouth daily 12/16 ISONIAZID 37493776465 Jer Zhang MD AZITHROMYCIN 250 MG TABS TAKE 2 TABLETS BY MOUTH ON DAY 1 AND THEN TAKE 1 TABLET BY MOUTH ONCE A DAY ON DAY 2 THROUGH DAY 5 09/24 AZITHROMYCIN 00647995361 Gerald Ocasio BENZONATATE 100 MG CAPS TAKE 1 CAPSULE BY MOUTH THREE TIMES DAILY FOR 10 DAYS NEEDED FOR COUGH 12/16 BENZONATATE 22491192348 Gerald Ocasio PROMETHAZINE-CODEI NE 6.25-10 MG/5ML SOLN TAKE 5 ML BY MOUTH TWICE DAILY 12/16 PROMETHAZINE-CODE INE 14095628772 Gerald Ocasio LEVOFLOXACIN 750 MG TABS TAKE 1 TABLET BY MOUTH ONCE DAILY FOR 8 DAYS 12/16 LEVOFLOXACIN 66933419896 Gerald Ocasio CLOPIDOGREL BISULFATE 75 MG TABS TAKE 1 TABLET BY MOUTH ONCE DAILY 12/16 CLOPIDOGREL BISULFATE 22714067328 Gerald D NYSTATIN 184908 UNIT/GM OINT APPLY OINTMENT TOPICALLY ONCE DAILY 12/16 NYSTATIN 61720569457 Gerald D HYDROCOD POLST-CPM POLST ER 10-8 MG/5ML ORAL SUSPENSION EXTENDED RELEASE TAKE 1 TEASPOONFUL (5 ML) BY MOUTH TWICE DAILY MAY CAUSE DROWSINESS 12/16 HYDROCOD POLST-CHLORPHEN POLST 64973523526 Gerald D TRIAZOLAM 0.25 MG TABS TAKE 1 TABLET BY MOUTH 30 MINUTES PRIOR TO MRI ON 09/24 TRIAZOLAM 04764262703 Gerald D LORAZEPAM 1 MG TABS TAKE 1 TABLET 2 HOURS BEFORE MRI FOR ANXIETY 12/16 LORAZEPAM 75548797406 Gerald D Medications Administered No information available. 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 smoking status Plan of Care Type Date Detail Pending order Sputum for AFB Pending order C-Diff PCR Pending order GI PCR Panel Pending order AFB Smear with C ulture Pending order Other Pending order New Oral Antibio tic Procedures Code Procedure Name Date Entry Date CPT-cdpcr C-Diff PCR CPT-64761 GI PCR Panel CPT-34061 AFB Smear with Culture 12/19 CPT-LAB Other CPT-vannesa New Oral Antibiotic Vital Signs Date Name Value Unit Description Body Temperature 97.6 [degF] temperat ure E&M BP Diastolic 75 mm[Hg] blood pressu re, diastolic BP Systolic 118 mm[Hg] blood pressur e, systolic Heart Rate 72 /min pulse rate Respiratory Rate 16 /min respirat ory rate E&M Weight Measured 222.8 [lb_av] weight E& M Weight Measured 222.8 [lb_av] weight E& M Immunizations No information available. Advance Directives Directive Description Start Date HEALTHCARE SURROGATE POWER OF MANAGER PUBLISHING HAS LIVING WILL ON FILE
--- OUTSIDE RECORDS SUMMARY | 2024-10-01 11:51 | XMS_ITS | Clinical Summary ---
Author Organization [employer] ([place], [place], [place], [place]) Address [address] [place], [place] [address] Care Team Providers Care Senior Associate Name Role Phone Unavailable Primary Care Provider Unavailabl e Social History Tobacco Use Types Packs/Day Years Used Date Smoking Tobacco: Never Assessed Food Insecurity Answer Date Recorded Food run [...] Date Milton rded Speak language other than Bolivian at home Not on file 01/23/2024 Want help with school or training Not on file 01/23/2024 Substance Use Answer Date Recorded Used prescription meds for non-medical reasons N ot on file 01/23/2024 Used illegal drugs past 12 months Not on file 01/23/2024 Sex and Gender Information Value Date Recorded Sex Assigned at Not on file Legal Sex Male 5:28 PM CDT Gender Identity Not on file Sexual Orientation Not on file Plan of Treatment Not on file Insurance [facility] MEDICARE ADVANTAGE
--- OUTSIDE RECORDS SUMMARY | 2024-10-01 11:51 | XMS_ITS | Encounter Summary ---
Author Organization [employer] ([place], [place], [place], [place]) Address [address] [place] [address] Care Team Providers Care Private Banker Name Role Phone Unavailable Primary Care Provider Unavailabl e Encounter Details Date Type Department Care Team (Late st Contact Info) Description 12/24/2020 Transcribed Document [facility] [place] [address] ProviderJaime MD [address] [place] [id number] Social History Tobacco Use Types Packs/Day Years Used Date Smoking Tobacco: Never Assessed Sex and Gender Information Value Date Recorded Sex Assigned at Not on file Legal Sex Male 5:28 PM CDT Gender Identity Not on file Sexual Orientation Not on file documented as of this encounter Miscellaneous Notes * Cerner Conversion Note - Jaime Flores MD - 12/24/2020 12:49 PM CDT DATE OF [...] right total knee replacement, final condition improved. /[id number] MD RAO Gibbs Jr/DIANNA / RAO / MODL /[id number] documented in this encounter Plan of Treatment Not on file documented as of this encounter Visit Diagnoses Not on filedocumented in this encounter
--- OUTSIDE RECORDS SUMMARY | 2024-10-01 11:52 | XMS_ITS | Encounter Summary ---
Author Organization [employer] ([place], [place], [place], [place]) Address [address] [place] [address] Care Team Providers Care Project Management Specialist Name Role Phone Unavailable Primary Care Provider Unavailabl e Encounter Details Date Type Department Care Team (Late st Contact Info) Description 12/23/2020 Transcribed Document [facility] [place] [address] [place] [address] ProviderJaime MD [address] [place] [id number] Social History Tobacco Use Types Packs/Day Years Used Date Smoking Tobacco: Never Assessed Sex and Gender Information Value Date Recorded Sex Assigned at Not on file Legal Sex Male 5:28 PM CDT Gender Identity Not on file Sexual Orientation Not on file documented as of this encounter Miscellaneous Notes * Cerner Conversion Note - Historical ProviderMD - 12/23/2020 9:24 AM CDT Evaluation, [...] knee 12/23/2020 12:00 Atherosclerotic heart disease of [place] coronary artery without angina pectoris 12/23/2020 12:00 [...] inpatient OT services required. ALEXANDRA KEY OTR/Danny 12/23/2020 16:[address] [facility] OT Charges OT Selfcare/Hm Mgmt Ea 15 Min : 1 OT Eval Low Complexity : 1 ALEXANDRA KEY OTR/L - 12/23/2020 16:05 EDT Electronically signed by Adolph Crowder Conversion Press Operator [employer] Cerner at 07/09/2022 10:50 AM CDT documented in this encounter Plan of Treatment Not on file documented as of this encounter Visit Diagnoses Not on filedocumented in this encounter
--- OUTSIDE RECORDS SUMMARY | 2024-10-01 11:52 | XMS_ITS | Encounter Summary ---
Author Organization [employer] ([place], [place], [place], [place]) Address [address] [place] [address] Care Team Providers Care Freight Car Builder Name Role Phone Unavailable Primary Care Provider Unavailabl e Encounter Details Date Type Department Care Team (Late st Contact Info) Description 12/23/2020 Transcribed Document [facility] [place] [facility] [place] [address] ProviderJaime MD [facility] [place] [address] Social History Tobacco Use Types Packs/Day Years [...] knee 12/23/2020 12:00 Atherosclerotic heart disease of [place] coronary artery without angina pectoris 12/23/2020 12:00 [...]
--- OUTSIDE RECORDS SUMMARY | 2024-10-01 11:52 | XMS_ITS | Encounter Summary ---
Author Organization [employer] ([place], [place], [place]) Address [address] [place] [address] Care Team Providers Care Tower Air Traffic Control Specialist Name Role Phone Unavailable Primary Care Provider Unavailabl e Encounter Details Date Type Department Care Team (Late st Contact Info) Description 12/23/2020 Transcribed Document [facility] [place] [address] [place] [address] ProviderJaime MD [address] [place] [phone] Social History Tobacco Use Types Packs/Day Years [...] 12/23/2020 8:11 AM CDT [facility] Main OR PACU Summary Primary Physician: KAYLA ZIMMERMAN JR, JR, MD-ORT Finalized Date/Time: 12/23/20 11:16:13 Pt. Name: AYLEEN BLACK III /Sex: 1950 Male Med Rec #: [id number] Physician: KAYLA ZIMMERMAN JR, JR, MD-ORT Financial #: [id number] Pt. Type: O Room/Bed: Admit/Disch: 12/23/20 04:16:00 - Institution: [facility] OR PACU Case Times Entry 1 In PACU I 12/23/20 09:56:00 Ready for PACU 12/23/20 11:12:00 Discharge Discharge from PACU 12/23/20 11:12:00 I Last Modified By: Janene Helm RN 12/23/20 11:16:01 [facility] Main OR PACU Case Times Audit 12/23/20 11:16:01 Band Ripsaw Operator: KINZA Modifier: KINZA 1 <*> Ready for PACU Discharge 12/23/20 10:30:00 1 <+> Discharge from PACU I Finalized By: Janene Helm RN Document Signatures Signed By: Janene Helm RN 12/23/20 11:16 documented in this encounter Plan of Treatment Not on file documented as of this encounter Visit Diagnoses Not on filedocumented in this encounter
--- OUTSIDE RECORDS SUMMARY | 2024-10-01 11:52 | XMS_ITS | Encounter Summary ---
Author Organization [employer] ([place], [place], [place], [place]) Address [address] [place] [address] Care Team Providers Care Keg Inspector Name Role Phone Unavailable Primary Care Provider Unavailabl e Encounter Details Date Type Department Care Team (Late st Contact Info) Description 12/23/2020 Transcribed Document [facility] [place] [facility] [place] [address] ProviderJaime MD [address] [place] [address] Social History Tobacco Use Types Packs/Day Years Used Date Smoking Tobacco: Never Assessed Sex and Gender Information Value Date Recorded Sex Assigned at Not on file Legal Sex Male 5:28 PM CDT Gender Identity Not on file Sexual Orientation Not on file documented as of this encounter Miscellaneous Notes * Cerner Conversion Note - Jaime Flores MD - 12/23/2020 7:03 AM CDT Time Out [...] Georgie Boyce RN - 12/23/2020 7:23 EDT documented in this encounter Plan of Treatment Not on file documented as of this encounter Visit Diagnoses Not on filedocumented in this encounter
--- OUTSIDE RECORDS SUMMARY | 2024-10-01 11:52 | XMS_ITS | Encounter Summary ---
Author Organization [employer] ([place], [place], [place], [place]) Address [address] [place] [address] Care Team Providers Care Environmental Protection Geologist Name Role Phone Unavailable Primary Care Provider Unavailabl e Encounter Details Date Type Department Care Team (Late st Contact Info) Description 12/08/2020 Transcribed Document [facility] [place] [address] [place] [address] ProviderJaime MD [address] [place], [place] [address] Social History Tobacco Use Types Packs/Day Years [...] Policy Numbers : Insurance 1 Health Plan: [employer] MEDICARE REPL Policy Number: [id number] Authorization Number: Insurance Primary Name : [employer] MEDICARE REPL Policy Number: [id number] Authorization Status-Primary : Opo status approv Authorized Service Begin Date-Primary : 12/16/2020 EDT Observation Authorization Nbr-Primary : [id number] Authorization Comments-Primary : [employer] Medicare approved for outpt per availity Historical Authorization Comments-Primary : No Authorization Comments Found ROLANDO TABARES RN-Utilization Review - 12/08/2020 15:21 EDT Electronically signed by Lakesha [facility] Conversion Dye Lab Technician Cerner at 07/09/2022 10:42 AM CDT documented in this encounter Plan of Treatment Not on file documented as of this encounter Visit Diagnoses Not on filedocumented in this encounter
--- OUTSIDE RECORDS SUMMARY | 2024-10-01 11:52 | XMS_ITS | Encounter Summary ---
Author Organization [employer] ([place], [place], [place], [place]) Address [address] [place] [address] Care Team Providers Care Insulation Board Head Saw Operator Name Role Phone Unavailable Primary Care Provider Unavailabl e Encounter Details Date Type Department Care Team (Late st Contact Info) Description 12/23/2020 Transcribed Document [facility] [place] Medicine [address] [place] [address] ProviderJaime MD [address] [place], [place] [id number] Social History Tobacco Use Types Packs/Day Years [...] III /Sex: 1950 Male Med Rec #: [id number] Physician: KAYLA ZIMMERMAN JR, JR, MD-ORT Financial #: [id number] Pt. Type: O Room/Bed: Admit/Disch: 12/23/20 04:16:00 - Institution: [facility] [place] PostOp Case Times Entry 1 In PACU II 12/23/20 11:13:00 Ready for PACU II 12/23/20 13:49:00 Discharge Discharge from PACU 12/23/20 13:49:00 II Last Modified By: Rosa Montes RN 12/23/20 14:04:05 Finalized By: Rosa Montes, RN Document Signatures Signed By: Rosa Montes RN 12/23/20 14:04 Electronically signed by Lakesha [facility] Conversion Rip/Mould Operator Cerner at 07/09/2022 10:45 AM CDT documented in this encounter Plan of Treatment Not on file documented as of this encounter Visit Diagnoses Not on filedocumented in this encounter
--- OUTSIDE RECORDS SUMMARY | 2024-10-01 11:52 | XMS_ITS | Encounter Summary ---
Author Organization [employer] ([place], [place], [place], [place]) Address [address] [place] [address] Care Team Providers Care Time Analysis Clerk Name Role Phone Unavailable Primary Care Provider Unavailabl e Encounter Details Date Type Department Care Team (Late st Contact Info) Description 12/09/2020 Transcribed Document [facility] [place] [address] [place] [address] ProviderJaime MD [address] [place], [place] [id number] Social History Tobacco Use Types Packs/Day Years Used Date Smoking Tobacco: Never Assessed Sex and Gender Information Value Date Recorded Sex Assigned at Not on file Legal Sex Male 5:28 PM CDT Gender Identity Not on file Sexual Orientation Not on file documented as of this encounter Miscellaneous Notes * Cerner Conversion Note - Historical ProviderMD - 12/09/2020 3:57 PM CDT PAT [...] : Standing scale Weight Entry Format : [place] Clinical Dosing Weight : 95.91 kg Weight, Pounds : 211 lb Body Surface Area (BSA) : 2.12 m2 Body Mass Index : 31.2 kg/m2 ([place]) [place] Body Weight : 70 kg Michaela Alvarez Rn - 12/09/2020 16:02 EDT Height Source : Stated Height Entry Format : [place] Michaela Alvarez Rn - 12/09/2020 15:57 EDT [...] Michaela Alvarez Rn - 12/09/2020 16:02 EDT [place] Suicide Severity Rating Scale (C-SSRS) CSSRS Past [...] Obtained From : Patient Primary Language : Kazakh Preferred Communication Mode : Verbal Communication Barrier : None Silo Tender Needed : No Michaela Alvarez Rn - [...]
--- OUTSIDE RECORDS SUMMARY | 2024-10-01 11:52 | XMS_ITS | Encounter Summary ---
Author Organization [employer] ([place], [place], [place], [place]) Address [address] [place] [address] Care Team Providers Care Cleaning Supervisor Name Role Phone Unavailable Primary Care Provider Unavailabl e Encounter Details Date Type Department Care Team (Late st Contact Info) Description 12/16/2020 Transcribed Document [facility] [place] [address] [place] [address] ProviderJaime MD [address] [place] [phone] Social History Tobacco Use Types Packs/Day Years Used Date Smoking Tobacco: Never Assessed Sex and Gender Information Value Date Recorded Sex Assigned at Not on file Legal Sex Male 5:28 PM CDT Gender Identity Not on file Sexual Orientation Not on file documented as of this encounter Miscellaneous Notes * Cerner Conversion Note - Historical ProviderMD - 12/16/2020 6:51 AM CDT PAT [...] Source : Stated Height Entry Format : [place] Height, Feet : 5 ft(Converted to: 152 cm, 60 Inch) Height, Inches : 9 Inch(Converted to: 0 ft 9 Inch, 22.86 cm) Clinical Height : 175.26 cm Weight Source : Standing scale Weight Entry Format : [place] Clinical Dosing Weight : 96.93 kg Weight, Pounds : 213 lb Weight, Ounces : 4 oz Body Surface Area (BSA) : 2.12 m2 Body Mass Index : 31.6 kg/m2 ([place]) [place] Body Weight : 70 kg CIARA WOODS [...] CIARA WOODS RN - 12/16/2020 6:51 EDT [place] Suicide Severity Rating Scale (C-SSRS) CSSRS Past [...] Mode : Verbal Communication Barrier : None Program Services Assistant Needed : No CIARA WOODS RN - [...] the text rendition version of the form. Electronically signed by Interface, Adolph Conversion Laboratory Equipment Cleaner Cerner at 07/09/2022 10:37 AM CDT documented in this encounter Plan of Treatment Not on file documented as of this encounter Visit Diagnoses Not on filedocumented in this encounter
--- OUTSIDE RECORDS SUMMARY | 2024-10-01 11:52 | XMS_ITS | Encounter Summary ---
Author Organization [employer] ([place], [place], [place], [place]) Address [address] [place] [address] Care Team Providers Care Cellar Pumper Name Role Phone Unavailable Primary Care Provider Unavailabl e Encounter Details Date Type Department Care Team (Late st Contact Info) Description 12/23/2020 Transcribed Document [facility] [place] [facility] [place] [address] ProviderJaime MD [address] [place] [id number] Social History Tobacco Use Types Packs/Day Years Used Date Smoking Tobacco: Never Assessed Sex and Gender Information Value Date Recorded Sex Assigned at Not on file Legal Sex Male 5:28 PM CDT Gender Identity Not on file Sexual Orientation Not on file documented as of this encounter Miscellaneous Notes * Cerner Conversion Note - Jaime Flores MD - 12/23/2020 7:03 AM CDT Peripheral Nerve [...] Peripheral Nerve Block Assisted by : NABEEL ESNA RN Peripheral Nerve Block Assisted by 2 [...]
--- OUTSIDE RECORDS SUMMARY | 2024-10-01 11:52 | XMS_ITS | Encounter Summary ---
Author Organization [employer] ([place], [place], [place], [place]) Address [address] [place] [address] Care Team Providers Care Community Service Officer Coordinator Name Role Phone Unavailable Primary Care Provider Unavailabl e Encounter Details Date Type Department Care Team (Late st Contact Info) Description 12/23/2020 Transcribed Document [facility] [place] [address] [place] [address] ProviderJaime MD [address] [place], [place] [address] Social History Tobacco Use Types Packs/Day Years Used Date Smoking Tobacco: Never Assessed Sex and Gender Information Value Date Recorded Sex Assigned at Not on file Legal Sex Male 5:28 PM CDT Gender Identity Not on file Sexual Orientation Not on file documented as of this encounter Miscellaneous Notes * Cerner Conversion Note - Historical ProviderMD - 12/23/2020 2:13 PM CDT Initial Discharge Planning Entered On: 12/23/2020 14:20 EDT Performed On: 12/23/2020 14:13 EDT by ANGELA NGUYEN RN Initial Assessment I Previously Documented Living Environment : No qualifying data available. Living Situation : Home Patient Lives With : Spouse Is the Patient a Caregiver at Home? : No Emergency Contact #1 : Pooja Rocío Emergency Contact #1 Emergency Contact #1 Relationship [...]
--- OUTSIDE RECORDS SUMMARY | 2024-10-01 11:52 | XMS_ITS | Encounter Summary ---
Author Organization [employer] ([place], [place], [place], [place]) Address [address] [place] [address] Care Team Providers Care Bore Mill Operator Name Role Phone Unavailable Primary Care Provider Unavailabl e Encounter Details Date Type Department Care Team (Late st Contact Info) Description 12/23/2020 Transcribed Document [facility] [place] Family Medicine [address] [place] [address] ProviderJaime MD [address], [place] [id number] Social History Tobacco Use Types Packs/Day Years [...] III /Sex: 1950 Male Med Rec #: [id number] Physician: KAYLA ZIMMERMAN JR, JR, MD-ORT Financial #: [id number] Pt. Type: O Room/Bed: Admit/Disch: 12/23/20 04:16:00 - Institution: [facility] [place] [facility] [place] PreOp Case Times Entry 1 In Preop 12/23/20 05:15:00 Ready for Holding n/a Room Patient Ready for 12/23/20 06:42:00 Surgery Patient Out of Preop 12/23/20 07:50:00 Patient Out of n/a Holding Room Last Modified By: Aden Boyce RN 12/23/20 07:46:17 SJE PreOp Case Times Audit 12/23/20 07:46:17 Weigh Machine Operator: BLANKDanny Modifier: ADENVERNADanny <+> 1 Patient Out of Preop Finalized By: Aden Boyce, RN Document Signatures Signed By: Aden Boyce RN 12/23/20 07:46 documented in this encounter Plan of Treatment Not on file documented as of this encounter Visit Diagnoses Not on filedocumented in this encounter
--- OUTSIDE RECORDS SUMMARY | 2024-10-01 11:52 | XMS_ITS | Clinical Summary ---
Author Organization Healthcare Address [address] [place] [address] Care Team Providers Care Barrel Leveler Name Role Phone Markus Huang DECK BUILDER Primary Care Provider Allergies Active Allergy Reactions Criticality Noted Date [...] Wellness (AWV) 1950 [facility]-Infant/Child/Adol SDOH Screenings 1950 [id number] Vaccine (#1) 1957 Diabetes: Dental Exam 1962 [facility]- SDOH Screenings 1970 [facility]-Adult SDOH Screenings 1970 [facility]-DTaP,Tdap,and Td Vaccines (1 - Tdap) 07/08/1971 CT Colonography 1997 Colonoscopy 1997 FIT-DNA 1997 FIT 1997 FOBT 1997 Sigmoidoscopy 1997 [facility]-Colorectal Cancer Screening 1997 [facility]-Zoster Vaccines (1 of 2) 2002 [facility]-RSV Vaccine: 60+ Years or (1 - Risk 60-74 years 1-dose series) 2012 [facility]-Influenza Vaccine (#1) 11/25/202402/10, 01/09/2020, 01/31/2019, Additional history exists [facility]-Hepatitis C [...] Recently Relevant to Health Maintenance Results * [place] Hepatitis C Antibody (02/13/2019 6:35 PM EST) [place] Hepatitis C Ab NEGATIVE Reference Range: Negative [facility] 02/13/2019 6:35 PM EST 02/13/2019 7:06 PM EST us Major Diaz MD LAB BLOOD ORDERABLES Final Re sult [facility] from Last 3 Months or Most Recently Relevant to Health Maintenance Insurance [facility] MEDICARE Care Teams Barrel Leveler Relationship Specialty Start Date End Date Markus Huang APRN [address] [place] [address] [place] [address] PCP - General 10/10/22
--- OUTSIDE RECORDS SUMMARY | 2024-10-01 11:52 | XMS_ITS | Encounter Summary ---
Author Organization [employer] ([place], [place], [place], [place]) Address [address] [place] [address] Care Team Providers Care Fish And Wildlife Scientific Aid Name Role Phone Unavailable Primary Care Provider Unavailabl e Encounter Details Date Type Department Care Team (Late st Contact Info) Description 12/16/2020 Transcribed Document [facility] [place] Family Medicine [facility] [place] [address] ProviderJaime MD [address] [place], [place] [id number] Social History Tobacco Use Types Packs/Day Years [...] home due to surrgery being cancelled CIARA WOODS, RN - 12/16/2020 7:48 EDT documented in this encounter Plan of Treatment Not on file documented as of this encounter Visit Diagnoses Not on filedocumented in this encounter
--- OUTSIDE RECORDS SUMMARY | 2024-10-01 11:52 | XMS_ITS | Encounter Summary ---
Author Organization [employer] ([place], [place], [place], [place]) Address [address] [place] [address] Care Team Providers Care Issuing Operator Name Role Phone Unavailable Primary Care Provider Unavailabl e Encounter Details Date Type Department Care Team (Late st Contact Info) Description 12/23/2020 Transcribed Document [facility] [place] Family Medicine [address] [place] [address] ProviderJaime MD [address] [place] [address] Social History Tobacco Use Types Packs/Day Years Used Date Smoking Tobacco: Never Assessed Sex and Gender Information Value Date Recorded Sex Assigned at Not on file Legal Sex Male 5:28 PM CDT Gender Identity Not on file Sexual Orientation Not on file documented as of this encounter Miscellaneous Notes * Cerner Conversion Note - Jaime ProviderMD - 12/23/2020 1:22 [place] [id number] AYLEEN BLACK III :1950 Visit Time:12/23/2020 What [...] then 6 days after surgery Community Services: [facility] Home Health Services: [facility] [...] When 12/29/2020 09:45 AM EDT Where: [address] [facility] [address] [place] [address] Medications What How Much When Instructions Next [...] or 4 frozen water bottles in the [facility] CUBE. Continue to use Incentive Spirometer 10 [...] Barley. Bulgur wheat. Millet. Bran muffins. Popcorn. [place]ckinnon wafer crackers. Vegetables Sweet potatoes. Spinach. Kale. Artichokes. Cabbage. Broccoli. Green peas. Carrots. Squash. Fruits Berries. Pears. Apples. Oranges. Avocados. Prunes and raisins. Dried figs. Meats and Other Protein Sources [place], kidney, amador, and soy beans. Split peas. [...] 1 katy has 11 g of protein. [place] seeds ??? 1 oz has 5.5 g [...] the floor. Place frequently used items in iivc-bb-efabd places Keep electrical cables out of the [...] ? Using the bathroom. ? Using household mixing machine tender cork gasket or toxic chemicals. ? Touching or taking [...] activities are safe for you. ??? Take uewl-erv-oteupum and prescription medicines only as told by [...] provider. Document Revised: 03/16/2018 Document Reviewed: 10/27/2017 [facility] [facility] Patient Education ?? 2020 [place]. acetaminophen (oral) (a SEET a MIN oh fen) Actamin, Anacin AF, Aurophen, Bromo [place], Children's Tylenol, Mapap, M-Pap, Pharbetol, Silapap Childrens, [...] stomach, itching, loss of appetite, dark urine, naresh-colored stools, or jaundice (yellowing of your skin or eyes). Stop taking this medicine and call your doctor right away if you have skin redness or a rash that spreads and causes blistering and peeling. What is acetaminophen? Acetaminophen is a pain reliever and a fever softball winder. There are many brands and forms of [...] may report side effects to FDA at 9-194-MEL-4200. What other drugs will affect acetaminophen? Other drugs may affect acetaminophen, including prescription and hsza-ttn-qkypbya medicines, vitamins, and herbal products. Tell your [...] to ensure that the information provided by [employer]. ('Multum') is accurate, up-to-date, and complete, but no guarantee is made to that effect. Drug information contained herein may be time sensitive. [employer] information has been compiled for use by healthcare practitioners and consumers in the [place] and therefore [employer] does not warrant that uses outside of the [place] are appropriate, unless specifically indicated otherwise. [employer]'s drug information does not endorse drugs, diagnose patients or recommend therapy. [facility] drug information is an informational resource designed [...] effective or appropriate for any given patient. [facility] does not assume any responsibility for any aspect of healthcare administered with the aid of information [facility] provides. The information contained herein is not intended to cover all possible uses, directions, precautions, warnings, drug interactions, allergic reactions, or adverse effects. If you have questions about the drugs you are taking, check with your doctor, nurse or pharmacist. Copyright 5089-3452 [facility] [employer]. Version: 21.. Revision Date: 11/01/2019. aspirin (oral) ( pir in) Arthritis Pain, Aspi-Cor, Aspir-Low, Nusrat Plus, Durlaza, Ecotrin, Miniprin, Vazalore What is the most important information I should know about aspirin? Aspirin can cause Tonia's syndrome, a serious and sometimes fatal condition in children. What is aspirin? Aspirin is a salicylate (sf-LEM-wh-ate) that is used to treat pain, and [...] cause a serious or fatal condition called Tonia's syndrome. You should not use aspirin if [...] may report side effects to FDA at 0-985-XQM-5872. What other drugs will affect aspirin? Ask [...] drugs may affect aspirin, including prescription and ynhg-rff-bsyaxjn medicines, vitamins, and herbal products. Not all [...] to ensure that the information provided by [employer]. ('Multum') is accurate, up-to-date, and complete, but no guarantee is made to that effect. Drug information contained herein may be time sensitive. [employer] information has been compiled for use by healthcare practitioners and consumers in the [place] and therefore [employer] does not warrant that uses outside of the [place] are appropriate, unless specifically indicated otherwise. [employer] drug information does not endorse drugs, diagnose patients or recommend therapy. [employer] drug information is an informational resource designed [...] effective or appropriate for any given patient. [employer] does not assume any responsibility for any aspect of healthcare administered with the aid of information [facility] provides. The information contained herein is not intended to cover all possible uses, directions, precautions, warnings, drug interactions, allergic reactions, or adverse effects. If you have questions about the drugs you are taking, check with your doctor, nurse or pharmacist. Copyright 0582-4499 [employer]. Version: 16.03. Revision Date: 09/21/2020. oxycodone (ox [...] The extended-release form of oxycodone is for qrfipn-frl-bsyxm treatment of pain and should not be [...] against the law. Stop taking all other msduzy-ljp-ogecq opioid pain medicines when you start taking [...] may report side effects to FDA at 8-708-LGZ-7879. What other drugs will affect oxycodone? You [...] may affect oxycodone. This includes prescription and ktod-slc-wdiysvk medicines, vitamins, and herbal products. Not all [...] to ensure that the information provided by [employer]. ('Multum') is accurate, up-to-date, and complete, but no guarantee is made to that effect. Drug information contained herein may be time sensitive. [employer] information has been compiled for use by healthcare practitioners and consumers in the [place] and therefore [employer] does not warrant that uses outside of the [place] are appropriate, unless specifically indicated otherwise. [employer]'s drug information does not endorse drugs, diagnose patients or recommend therapy. [employer] drug information is an informational resource designed [...] effective or appropriate for any given patient. [employer] does not assume any responsibility for any aspect of healthcare administered with the aid of information [employer] provides. The information contained herein is not intended to cover all possible uses, directions, precautions, warnings, drug interactions, allergic reactions, or adverse effects. If you have questions about the drugs you are taking, check with your doctor, nurse or pharmacist. Copyright 4465-0658 [facility] [employer]. Version: 14.02. Revision Date: 04/23/2020. docusate [...] may report side effects to FDA at 3-557-CEA-1456. What other drugs will affect docusate? Other drugs may affect docusate, including prescription and fovw-sxd-tsabqoc medicines, vitamins, and herbal products. Tell your [...] to ensure that the information provided by [employer]. ('[employer]') is accurate, up-to-date, and complete, but no guarantee is made to that effect. Drug information contained herein may be time sensitive. [employer] information has been compiled for use by healthcare practitioners and consumers in the [place] and therefore [employer] does not warrant that uses outside of the [place] are appropriate, unless specifically indicated otherwise. [employer]'s drug information does not endorse drugs, diagnose patients or recommend therapy. [employer] drug information is an informational resource designed [...] effective or appropriate for any given patient. [employer] does not assume any responsibility for any aspect of healthcare administered with the aid of information [employer] provides. The information contained herein is not intended to cover all possible uses, directions, precautions, warnings, drug interactions, allergic reactions, or adverse effects. If you have questions about the drugs you are taking, check with your doctor, nurse or pharmacist. Copyright 0823-2176 [employer]. Version: 4.01. Revision Date: 10/01/2018. cephalexin (sef [...] may report side effects to FDA at 0-886-JYF-5238. What other drugs will affect cephalexin? Tell your doctor about all your other medicines, especially: ?? metformin; or ?? probenecid. This list is not complete. Other drugs may affect cephalexin, including prescription and nwmt-gcl-vsqzhnt medicines, vitamins, and herbal products. Not all [...] to ensure that the information provided by [employer]. ('Multum') is accurate, up-to-date, and complete, but no guarantee is made to that effect. Drug information contained herein may be time sensitive. [employer] information has been compiled for use by healthcare practitioners and consumers in the [place] and therefore [employer] does not warrant that uses outside of the [place] are appropriate, unless specifically indicated otherwise. [employer] drug information does not endorse drugs, diagnose patients or recommend therapy. [employer] drug information is an informational resource designed [...] effective or appropriate for any given patient. [employer] does not assume any responsibility for any aspect of healthcare administered with the aid of information [employer] provides. The information contained herein is not intended to cover all possible uses, directions, precautions, warnings, drug interactions, allergic reactions, or adverse effects. If you have questions about the drugs you are taking, check with your doctor, nurse or pharmacist. Copyright 5067-5989 [employer]. Version: 10.03. Revision Date: 03/30/2020. tramadol (TRAM a dol) ConZip, Qdolo, Ultram, Ultram ER What is the most [...] drowsiness or slow breathing. What is tramadol? Electronically signed by Adolph Crowder Conversion Global Marketing Coordinator Romulo at 07/09/2022 10:47 AM CDT documented in this encounter Plan of Treatment Not on file documented as of this encounter Visit Diagnoses Not on filedocumented in this encounter
--- OUTSIDE RECORDS SUMMARY | 2024-10-01 11:52 | XMS_ITS | Encounter Summary ---
Author Organization [email or web address] ([place], [place], [place], [place]) Address [address] [place] [address] Care Team Providers Care Bulldogger Name Role Phone Unavailable Primary Care Provider Unavailabl e Encounter Details Date Type Department Care Team (Late st Contact Info) Description 12/09/2020 Transcribed Document [facility] [place] Family Medicine [address] [place] [address] ProviderJaime MD [address], [place] [address] Social History Tobacco Use Types Packs/Day Years Used Date Smoking Tobacco: Never Assessed Sex and Gender Information Value Date Recorded Sex Assigned at Not on file Legal Sex Male 5:28 PM CDT Gender Identity Not on file Sexual Orientation Not on file documented as of this encounter Miscellaneous Notes * Cerner Conversion Note - Historical ProviderMD - 12/09/2020 3:30 PM CDT Meds to Bed Enrollment Entered On: 12/09/2020 15:30 EDT Performed On: 12/09/2020 15:30 EDT by Michaela Alvarez Rn Meds to Bed Enrollment Patient Enrollment Decision: : Yes/enroll in meds to bed program Michaela Alvarez Rn - 12/09/2020 15:30 EDT Electronically signed by Adolph Crowder Conversion Application Security Consultant Cerner at 07/09/2022 10:45 AM CDT documented in this encounter Plan of Treatment Not on file documented as of this encounter Visit Diagnoses Not on filedocumented in this encounter
--- OUTSIDE RECORDS SUMMARY | 2024-10-01 11:52 | XMS_ITS | Referral Summary ---
Author Organization [employer] ([place], [place], [place], [place]) Address [address] [place], [place] [id number] Care Team Providers Care Lever Miller Name Role Phone Unavailable Primary Care Provider [...] Date Milton rded Speak language other than Lao at home Not on file 01/23/2024 Want [...] Plan of Treatment Not on file Insurance [facility] MEDICARE ADVANTAGE
--- OUTSIDE RECORDS SUMMARY | 2024-10-01 11:52 | XMS_ITS | Encounter Summary ---
Author Organization [email or web address] ([place], [place], [place], [place]) Address [address] [place] [address] Care Team Providers Care Hedge Fund Manager Name Role Phone Unavailable Primary Care Provider Unavailabl e Encounter Details Date Type Department Care Team (Late st Contact Info) Description 12/23/2020 Transcribed Document [facility] [place] [address] [place] [address] ProviderJaime MD [address] [place] [address] Social History Tobacco Use Types Packs/Day Years Used Date Smoking Tobacco: Never Assessed Sex and Gender Information Value Date Recorded Sex Assigned at Not on file Legal Sex Male 5:28 PM CDT Gender Identity Not on file Sexual Orientation Not on file documented as of this encounter Miscellaneous Notes * Cerner Conversion Note - Historical ProviderMD - 12/23/2020 6:56 AM CDT PAT Adult Entered On: 12/23/2020 7:00 EDT Performed On: 12/23/2020 6:56 EDT by Georgie Boyce RN Pain Assessment Pain Assessment : Initial assessment Pain Scale Used : 0-10 Scale Georgie Boyce RN - 12/23/2020 6:56 EDT Height and Weight, Clinical Dosing Height Source : Measured Height Entry Format : [place] Height, Feet : 5 ft(Converted to: 152 cm, 60 Inch) Height, Inches : 9 Inch(Converted to: 0 ft 9 Inch, 22.86 cm) Clinical Height : 175.26 cm Weight Source : Standing scale Weight Entry Format : [place] Clinical Dosing Weight : 96.36 kg Weight, Pounds : 212 lb Body Surface Area (BSA) : 2.12 m2 Body Mass Index : 31.4 kg/m2 (HI) [place] Body Weight : 70 kg Georgie Boyce [...] COVID19 symptoms since test? : No Georgie Boyce RN - 12/23/2020 6:56 EDT Anesthesia/Transfusion History [...] Georgie Boyce RN - 12/23/2020 6:56 EDT [place] Suicide Severity Rating Scale (C-SSRS) CSSRS Past [...] #2 Relationship : . Primary Language : Afghan Preferred Communication Mode : Verbal Communication Barrier : None Yard Cleaner Needed : No Georgie Boyce RN - [...]
--- OUTSIDE RECORDS SUMMARY | 2024-10-01 11:52 | XMS_ITS | Encounter Summary ---
Author Organization [employer] ([place], [place], [place], [place]) Address [address] [place] [address] Care Team Providers Care Processor Solid Propellant Name Role Phone Unavailable Primary Care Provider Unavailabl e Reason for Referral * Consultation (Routine) - Closed Specialty Diagnoses / Procedures Referred By Mitchell dela cruz Referred To Contact Neurology Diagnoses Seizure (HCC) Kirsten Gates [address] [place] [address] Phone: tel: Mac Leonard MD [address] [facility] [address] [place] [address] Phone: tel: fax: Referral ID Status Reason Start Date Expiration Date V isits Requested Visits Authorized [id number] Closed Specialty Services Required 01/03/2024 01/02/2025 1 1 Encounter Details Date Type Department Care Team (Late st Contact Info) Description 01/03/2024 Outside Orders [facility] Neurology [address] [facility] [address] [place] [address] [place] [address] Seizure (HCC) (Primary Dx) Social History Tobacco [...]
--- OUTSIDE RECORDS SUMMARY | 2024-10-01 11:52 | XMS_ITS | Encounter Summary ---
Author Organization [employer] ([place], [place], [place], [place]) Address [address] [place] [address] Care Team Providers Care Ingot Header Name Role Phone Unavailable Primary Care Provider Unavailabl e Encounter Details Date Type Department Care Team (Late st Contact Info) Description 12/23/2020 Transcribed Document [facility] Family Medicine [facility] [place] [address] ProviderJaime MD [address] [place] [phone] Social History Tobacco Use Types Packs/Day Years [...] Sent to Post Acute Providers : Yes [facility] Quality Web Info Shared w Pt/Fam : [...] 12/23/2020 14:44 EDT Electronically signed by Adolph Crodwer Conversion Electric Distribution Checker Romulo at 07/09/2022 10:41 AM CDT documented in this encounter Plan of Treatment Not on file documented as of this encounter Visit Diagnoses Not on filedocumented in this encounter
--- OUTSIDE RECORDS SUMMARY | 2024-10-01 11:52 | XMS_ITS | Encounter Summary ---
Author Organization [employer] ([place], [place], [place], [place]) Address [address] [place] [address] Care Team Providers Care Quality Audit Representative Name Role Phone Unavailable Primary Care Provider Unavailabl e Encounter Details Date Type Department Care Team (Late st Contact Info) Description 12/23/2020 Transcribed Document [facility] [place] Family Medicine [address] [place] [address] ProviderJaime MD [address], [place] [id number] Social History Tobacco Use Types Packs/Day Years [...] - 12/23/2020 12:43 EDT Electronically signed by Adolph Crowder Conversion Associate Director Of Development Cerner at 07/09/2022 10:37 AM CDT documented in this encounter Plan of Treatment Not on file documented as of this encounter Visit Diagnoses Not on filedocumented in this encounter
--- OUTSIDE RECORDS SUMMARY | 2024-10-01 11:52 | XMS_ITS | Encounter Summary ---
Author Organization [employer] ([place], [place], [place], [place]) Address [address] [place] [address] Care Team Providers Care Oyster Planter Name Role Phone Unavailable Primary Care Provider Unavailabl e Encounter Details Date Type Department Care Team (Late st Contact Info) Description 12/23/2020 Transcribed Document [facility] [place] [facility] [place] [address] ProviderJaime MD [address] [place] [phone] Social History Tobacco Use Types Packs/Day Years Used Date Smoking Tobacco: Never Assessed Sex and Gender Information Value Date Recorded Sex Assigned at Not on file Legal Sex Male 5:28 PM CDT Gender Identity Not on file Sexual Orientation Not on file documented as of this encounter Miscellaneous Notes * Cerner Conversion Note - Jaime Flores MD - 12/23/2020 12:26 PM CDT Patient: AYLEEN BLACK III Age: 70 years Sex: Male : 1950 Associated Diagnoses: Unilateral primary osteoarthritis, right knee; Status post total knee replacement, right; Right knee pain; Hypertension; High cholesterol; Diabetes; RA (rheumatoid arthritis); IBS (irritable bowel syndrome); History of obstructive sleep apnea; COVID-19; CAD (coronary artery disease) Author: ADI AGUILAR MD-INT Date of admission 12/23/2020 Date [...] EDT Chloraseptic Menthol 1.4% topical spray: 5 [place], Oral, [place], Q2H, PRN for Sore Throat, Routine, Start [...] Oral, Q4H phenol 1.4% throat spray 5 [place], Oral, Q2H promethazine 25 mg tab 12.5 [...] HTN, CAD and cancer Procedure history: Cholecystectomy (48989807). Hernia ([id number]). Rotator cuff right ([id number]). Knee left partial ([id number]). right upper thigh boil. lymph node drained from right arm pit. Colonoscopy ([id number]). EGD - Esophagogastroduodenoscopy ([id number]). heart cath. cardiac stent. Social History Patient [...] swelling, No deformity, Normal gait. Integumentary: Warm, Castine, Intact, No pallor, No rash, WOUND STABLE. [...] then you may give Tylenol 650 mg PO/OH x 1. If no response in 2 [...]
--- OUTSIDE RECORDS SUMMARY | 2024-10-01 11:52 | XMS_ITS | Encounter Summary ---
Author Organization [employer] ([place], [place], [place], [place]) Address [address] [place] [address] Care Team Providers Care Senior Accounting Associate Name Role Phone Unavailable Primary Care Provider Unavailabl e Encounter Details Date Type Department Care Team (Late st Contact Info) Description 12/22/2020 Transcribed Document [facility] [place] [facility] [place] [address] ProviderJaime MD [address], [place] [id number] Social History Tobacco Use Types Packs/Day Years [...] or 4 frozen water bottles in the [facility]. Continue to use Incentive Spirometer 10 [...] Barley. Bulgur wheat. Millet. Bran muffins. Popcorn. [place] wafer crackers. Vegetables Sweet potatoes. Spinach. Kale. Artichokes. Cabbage. Broccoli. Green peas. Carrots. Squash. Fruits Berries. Pears. Apples. Oranges. Avocados. Prunes and raisins. Dried figs. Meats and Other Protein Sources [place]itherbee, kidney, amador, and soy beans. Split peas. [...] 1 katy has 11 g of protein. Christian seeds ??? 1 oz has 5.5 g [...] the floor. Place frequently used items in qhgs-nv-aktrn places Keep electrical cables out of the [...] ? Using the bathroom. ? Using household outcomes analyst or toxic chemicals. ? Touching or taking [...] activities are safe for you. ??? Take anrt-fly-ctrixqd and prescription medicines only as told by [...] provider. Document Revised: 03/16/2018 Document Reviewed: 10/27/2017 [employer] Patient Education ? 2020 [employer] documented in this encounter Plan of Treatment Not on file documented as of this encounter Visit Diagnoses Not on filedocumented in this encounter
--- OUTSIDE RECORDS SUMMARY | 2024-10-01 11:52 | XMS_ITS | Encounter Summary ---
Author Organization [employer] ([place], [place], [place], [place]) Address [address] [place] [address] Care Team Providers Care Joint Terminal Attack Controller Name Role Phone Unavailable Primary Care Provider Unavailabl e Encounter Details Date Type Department Care Team (Late st Contact Info) Description 12/23/2020 Transcribed Document [facility] [place] Medicine [address] [place] [address] ProviderJaime MD [address] [place] [place] [address] Social History Tobacco Use Types Packs/Day Years [...] : Yes Discharge To Care Management : Home/Residential/Correction or Self Care -01 ANGELA NGUYEN RN - 12/23/2020 15:58 EDT Final Narrative Note Final Narrative Note : Tara called back and cant take patient due to staffing. Sent Referral out to Poppy TRUONG and Nicolette notified. Pt discharged home with BROOKS TRUONG to follow. No further CM needs identiifed. ANGELA NGUYEN RN - 12/23/2020 15:58 EDT documented in this encounter Plan of Treatment Not on file documented as of this encounter Visit Diagnoses Not on filedocumented in this encounter
--- OUTSIDE RECORDS SUMMARY | 2024-10-01 11:52 | XMS_ITS | Encounter Summary ---
Author Organization [employer] ([place], [place], [place], [place]) Address [address] [place] [address] Care Team Providers Care Photographer Name Role Phone Unavailable Primary Care Provider Unavailabl e Encounter Details Date Type Department Care Team (Late st Contact Info) Description 12/23/2020 Transcribed Document [facility] [place] [facility] [place] [address] ProviderJaime MD [address], [place] [phone] Social History Tobacco Use Types Packs/Day Years [...] MD-ORT Finalized Date/Time: 12/23/20 09:59:37 Pt. Name: AYLEEN BLACK III /Sex: 1950 Male Med Rec #: [id number] Physician: KAYLA ZIMMERMAN JR, JR, MD-ORT Financial #: [id number] Pt. Type: O Room/Bed: Admit/Disch: 12/23/20 04:16:00 - Institution: [facility] [place] IntraOp Case Attendance Entry 1 Entry 2 Entry 3 Case Attendee KAYLA ZIMMERMAN JR, JR, TARA MERA APRN,HAYDER KOROMA, LUCIE CHANCEORT Role Performed Surgeon/Proceduralist, CARPENTER APPRENTICE/Nurse Timber Cruiser Solar Photovoltaic Electrician, First First Time In 12/23/20 07:51:00 12/23/20 07:51:00 12/23/20 07:51:00 Time Out 12/23/20 09:55:00 12/23/20 09:55:00 12/23/20 09:55:00 Procedure Knee Total Joint Knee Total Joint Knee Total Joint Replacement Replacement Replacement Other Attendee Superficial Wound Closed By: Last Modified By: HAYDER EASON RN LONGSWORTH, GARY, HAYDER MASON, LUCIE 12/23/20 09:55:23 12/23/20 09:55:23 12/23/20 09:55:23 Entry 4 Entry 5 Entry 6 Case Attendee Stephan Boyce, RESIDENT CARE SUPERVISOR/GRAIN ROASTER GET ARIAS ST Peel, Polly, Scub Tech Role Performed Fruit Picker, First Scrub, First Scrub, Second Time In 12/23/20 07:51:00 12/23/20 07:51:00 12/23/20 07:51:00 Time Out 12/23/20 09:55:00 12/23/20 09:55:00 12/23/20 09:55:00 Procedure Knee Total Joint Knee Total Joint Knee Total Joint Replacement Replacement Replacement Other Attendee Superficial Wound Closed By: Last Modified By: HAYDER EASON RN LONGSWORTH, GARY, HAYDER MASON, LUCIE 12/23/20 09:55:23 12/23/20 09:55:23 12/23/20 09:55:23 Entry 7 Entry 8 Case Attendee OTHER, ATTENDEE #1 NGOZI PETTY, CARPENTER APPRENTICE Role Performed Vendor CARPENTER APPRENTICE/Nurse Timber Cruiser Time In 12/23/20 07:51:00 12/23/20 08:29:00 Time Out 12/23/20 09:55:00 12/23/20 08:41:00 Procedure Knee Total Joint Knee Total Joint Replacement Replacement Other Attendee [place] CARPENTER APPRENTICE BREAK Superficial Wound Closed By: Thom Modified By: HAYDER EASON RN LONGSWORTH, GARY, LUCIE 12/23/20 07:19:17 12/23/20 08:29:30 [facility] IntraOp Case Attendance Audit 12/23/20 09:55:23 Biomedical Electronics Technician: LONGGA Modifier: LONGGA 1 <+> Time Out 1 [...] Procedure Knee Total Joint Replacement 12/23/20 08:48:55 Biomedical Electronics Technician: LONGGA Modifier: LONGGA 8 <+> Time Out 8 <*> Procedure Knee Total Joint Replacement 12/23/20 08:29:30 Biomedical Electronics Technician: LONGGA Modifier: LONGGA <+> 8 Case Attendee <+> 8 Role Performed <+> 8 Time In <+> 8 Procedure <+> 8 Other Attendee 12/23/20 08:25:18 Biomedical Electronics Technician: LONGGA Modifier: LONGGA 1 <+> Time In [...] Procedure Knee Total Joint Replacement 12/23/20 07:25:50 Biomedical Electronics Technician: LONGGA Modifier: LONGGA <+> 1 Procedure 2 [...] [facility] IntraOp Case Times Audit 12/23/20 09:55:21 Biomedical Electronics Technician: LONGGA Modifier: LONGGA <+> 1 Out Room Time <+> 1 Stop Time <+> 1 Stop Time 12/23/20 08:21:13 Biomedical Electronics Technician: LONGGA Modifier: LONGGA <+> 1 Start Time [...] [facility] IntraOp Counts Verification Audit 12/23/20 09:01:12 Biomedical Electronics Technician: LONGGA Modifier: LONGGA <+> 2 Procedure <+> [...] HAYDER EASON, LUCIE, Accompanied by TARA MERA APRN,CARPENTER APPRENTICE Last Modified By: HAYDER EASON RN 12/23/20 09:08:10 [facility] IntraOp Dressing and Packing Entry 1 Type Dressing Location RIGHT KNEE Wound Dressing Item Papo Supplemental Limb immobilizer, Cold Applications pack Applied By Stephan Boyce, RESIDENT CARE SUPERVISOR/GRAIN ROASTER Other Comments JONATHAN WOUND DRESSING Last Modified [...] RN 12/23/20 07:24:40 [facility] IntraOp General Case Veterinary Milk Specialist 1 Case Information OR OR 02 SJE Case Level 1 Room Verified Yes Wound Class I - Clean Specialty Orthopedic Anesthesia Type General ASA Class 3 Diagnosis Preop Diagnosis DEGENERATIVE JOINT DISEASE, RIGHT KNEE Postop Same As Preop Yes Postop Diagnosis DEGENERATIVE JOINT DISEASE, RIGHT KNEE Last Modified By: HAYDER EASON RN 12/23/20 08:27:58 [facility] IntraOp General Case Data Audit 12/23/20 08:27:58 Biomedical Electronics Technician: YVETTE Modifier: LONGGA 1 <*> OR OR [...] PATELLA ITOTAL JIGS CR ITOTAL ID Identification [id number] Description Implant Quantity 2 1 1 Implant Site RIGHT KNEE RIGHT KNEE RIGHT KNEE Implant Identification Model Number Implant [id number] Identification Serial Number Implant [id number] Identification Lot Number Implant Wilmer:Wilmer Conformis Conformis Identification Orthopaedics Sheep Herder Name: Implant [id number] Identification Catalog Number Implant Size Implant Has an Yes Yes Yes Expiration Date Implant Expiration 01/24/22 09/23/22 12/24/21 Date Wasted Radioactive Material Time Implanted Tissue Implant Continue for Tissue Implant Documentation Tissue Identification Number Graft Prep Per Sheep Herder Instructions: Tissue Preparation Method: Reconstitution Solution: Reconstitution Solution Lot Number Reconstitution Solution Expiration Date: Thawing Solution Thawing Solution Lot Number Thawing Solution Expiration Date Preparation Materials, Other Preparation Materials, Other Lot Number Preparation Materials, Other Expiration Date Tissue Prepared/Processed By Sheep Herder Paperwork Completed Implant Type Comment Last Modified [...] KT CR FULL ITOTAL ID Identification KLEVER [id number] Description Implant Quantity 1 1 1 Implant Site RIGHT KNEE RIGHT KNEE RIGHT KNEE Implant Identification Model Number Implant [id number] Identification Serial Number Implant Identification Lot Number Implant Conformis Conformis Conformis Identification Sheep Herder Name: Implant [id number] Identification Catalog Number Implant Size Implant Has an Yes Yes Yes Expiration Date Implant Expiration 12/24/21 12/24/21 12/24/21 Date Wasted Radioactive Material Time Implanted Tissue Implant Continue for Tissue Implant Documentation Tissue Identification Number Graft Prep Per Sheep Herder Instructions: Tissue Preparation Method: Reconstitution Solution: Reconstitution Solution Lot Number Reconstitution Solution Expiration Date: Thawing Solution Thawing Solution Lot Number Thawing Solution Expiration Date Preparation Materials, Other Preparation Materials, Other Lot Number Preparation Materials, Other Expiration Date Tissue Prepared/Processed By Sheep Herder Paperwork Completed Implant Type Comment Last Modified By: HAYDER EASON RN LONGSWORTH, GARY, RN LONGSWORTH, GARY, RN 12/23/20 08:49:46 12/23/20 08:51:06 12/23/20 08:52:02 [facility] IntraOp Implant Log Audit 12/23/20 08:52:02 Biomedical Electronics Technician: LONGGA Modifier: LONGGA <+> 6 Implant Identification Description <+> 6 Implant Identification Serial Number <+> 6 Implant Identification Sheep Herder Name: <+> 6 Implant Expiration Date <+> 6 Implant Site <+> 6 Implant Quantity <+> 6 Implant Identification Catalog Number <+> 6 Implant Type <+> 6 Implant Has an Expiration Date <+> 6 Type 12/23/20 08:51:06 Biomedical Electronics Technician: LONGGA Modifier: LONGGA <+> 5 Implant Identification Description <+> 5 Implant Identification Serial Number <+> 5 Implant Identification Sheep Herder Name: <+> 5 Implant Expiration Date <+> 5 Implant Site <+> 5 Implant Quantity <+> 5 Implant Identification Catalog Number <+> 5 Implant Type <+> 5 Implant Has an Expiration Date <+> 5 Type 12/23/20 08:49:46 Biomedical Electronics Technician: LONGGA Modifier: LONGGA <+> 4 Implant Identification Description <+> 4 Implant Identification Serial Number <+> 4 Implant Identification Sheep Herder Name: <+> 4 Implant Expiration Date <+> 4 Implant Site <+> 4 Implant Quantity <+> 4 Implant Identification Catalog Number <+> 4 Implant Type <+> 4 Implant Has an Expiration Date <+> 4 Type 12/23/20 08:48:24 Biomedical Electronics Technician: LONGGA Modifier: LONGGA <+> 3 Implant Expiration Date 12/23/20 08:48:23 Biomedical Electronics Technician: LONGGA Modifier: LONGGA <+> 3 Implant Identification Description <+> 3 Implant Identification Serial Number <+> 3 Implant Identification Sheep Herder Name: <+> 3 Implant Site <+> 3 Implant Quantity <+> 3 Implant Identification Catalog Number <+> 3 Implant Type <+> 3 Implant Has an Expiration Date <+> 3 Type 12/23/20 08:47:19 Biomedical Electronics Technician: LONGGA Modifier: LONGGA <+> 2 Implant Identification Description <+> 2 Implant Identification Lot Number <+> 2 Implant Identification Sheep Herder Name: <+> 2 Implant Expiration Date <+> [...] Volume Administered By KAYLA ZIMMERMAN JR, JR, ERASMO SILVA, KAYLA SILVA, KAYLA ZIMMERMAN JR, JR, MD-ORT MD-ORT MD-ORT Procedure Irrigation Irrigant Volume In Irrigant Volume Out Last Modified By: HAYDER EASON RN LONGSWORTH, GARY, RN LONGSWORTH, GARY, RN 12/23/20 08:32:34 12/23/20 08:32:34 12/23/20 08:32:34 Entry 4 Entry 5 Medication/Irrigant lidocaine 1% w/ vancomycin 1Gm vial - epinephrine 1:100,000 [id number] 20ml vial - [id number] Combo Med List 4 - Combo Med [...] [facility] IntraOp Medication Admin Audit 12/23/20 08:39:42 Biomedical Electronics Technician: LONGGA Modifier: LONGGA <+> 5 Medication/Irrigant <+> [...] EASON RN, KAYLA ZIMMERMAN JR, JR, MD-ORT, SAMARIA, TARA, URSULA,PAPO, [place], Stephan, RESIDENT CARE SUPERVISOR/GRAIN ROASTER Position Verified Positioning Yes Verified by Anesthesia [...] [facility] IntraOp Surgical Procedures Audit 12/23/20 09:51:54 Biomedical Electronics Technician: LONGGA Modifier: LONGGA 1 <*> Procedure Knee Total Joint Replacement 1 <+> Stop 12/23/20 08:21:22 Biomedical Electronics Technician: LONGGA Modifier: LONGGA <+> 1 Start SJE IntraOp Temp Regulation Devices Entry 1 Temp Regulation Temperature Warm blankets Regulation Device Temperature Upper body Regulation Site Temperature SAMARIA, TARA, BOILER REPAIRMAN,CARPENTER APPRENTICE Regulation Device Applied by Last Modified By: [...] SJE IntraOp Time Out Audit 12/23/20 08:31:31 Biomedical Electronics Technician: YVETTE Modifier: YVETTE 1 <+> Surgeon 1 [...] Yes Padded Under Cuff Applied By Stephan Boyce, KATHI/GRAIN ROASTER Times Start Time 12/23/20 08:10:00 Stop Time 12/23/20 08:59:00 Last Modified By: HAYDER EASON RN 12/23/20 09:00:54 [facility] IntraOp Tourniquet Audit 12/23/20 09:00:54 Biomedical Electronics Technician: YVETTE Modifier: YVETTE <+> 1 Stop Time Case Comments <None> Finalized By: HAYDER EASON, RN Document Signatures Signed By: HAYDER EASON RN 12/23/20 09:59 Electronically signed by Lakesha Cox [place] Conversion Hydraulic Controls Technician Cerner at 07/09/2022 10:43 AM CDT documented in this encounter Plan of Treatment Not on file documented as of this encounter Visit Diagnoses Not on filedocumented in this encounter
--- OUTSIDE RECORDS SUMMARY | 2024-10-01 11:52 | XMS_ITS | Encounter Summary ---
Author Organization [employer] ([place], [place], [place], [place]) Address [address] [place] [address] Care Team Providers Care Commercial Appraiser Name Role Phone Unavailable Primary Care Provider Unavailabl e Encounter Details Date Type Department Care Team (Late st Contact Info) Description 12/09/2020 Transcribed Document [facility] [place] Family Medicine [facility] [place] [address] ProviderJaime MD [address] [place] [phone] Social History Tobacco Use Types Packs/Day Years [...] Appearance CLEAR2 12/09/2020 16:01 EDT Urine Specific [place] *1.026 12/09/2020 16:01 EDT Urine pH Dipstick [...]
--- OUTSIDE RECORDS SUMMARY | 2024-10-01 11:52 | XMS_ITS | Encounter Summary ---
Author Organization [employer] ([place], [place], [place], [place]) Address [address] [place] [address] Care Team Providers Care Pediatric Rn Name Role Phone Unavailable Primary Care Provider Unavailabl e Encounter Details Date Type Department Care Team (Late st Contact Info) Description 12/23/2020 Transcribed Document [facility] [place] [facility] [place] [address] ProviderJaime MD [address] [place], [place] [address] Social History Tobacco Use Types Packs/Day Years [...]
[2024-10-01 11:56] VITALS: BP 134/84; PULSE 82; RESP 19; TEMP 36.6; O2SAT 100; BMI 29.2
[2024-10-01 12:01] VITALS: BP 114/80; PULSE 75; O2SAT 99
--- NOTE | 2024-10-01 12:21 | HMH.EDGENADL ---
Discharge Plan Disposition Patient Disposition: Home, Self-Care Prescriptions Prescriptions: New clindamycin HCl 150 mg capsule 450 mg PO Q8H 7 Days Qty: 63 0RF No Action famotidine 40 mg tablet 40 mg PO HS Qty: 30 2RF Rx Instructions: take in combination with the omeprazole. Take the omeprazole in the morning and the famotidine at night lidocaine 5 % ointment See Rx Instructions .ROUTE .COMPLEX Qty: 70.88 2RF Dose Instruction: APPLY TOPICALLY TWICE DAILY NEEDED FOR PAIN Rx Instructions: APPLY TOPICALLY TWICE DAILY NEEDED FOR PAIN tramadol 50 mg tablet 50 mg PO TID Mounjaro 2.5 mg/0.5 mL pen injector 2.5 mg SQ WEEKLY Qty: 2.5 0RF Rx Instructions: for 4 weeks cyclobenzaprine 5 mg tablet 5 mg PO TID PRN colestipol 1 gram tablet 1 g PO BID Qty: 180 3RF atorvastatin 40 mg tablet 40 mg PO HS 30 Days Qty: 90 2RF metformin 1,000 mg tablet 1,000 mg PO BID Qty: 60 2RF ondansetron HCl 4 mg tablet 4 mg PO Q8H PRN (Reason: nausea and vomiting) 4 Days Qty: 30 0RF mupirocin 2 % ointment 1 applic topical TID Qty: 180 12RF clopidogrel 75 mg tablet 75 mg PO DAILY diclofenac sodium 1 % gel 4 g topical QIDP PRN (Reason: CHRONIC PAIN) Rx Instructions: apply to single, ankle, foot; for foot includes sole/toes/top of foot omeprazole 40 mg capsule,delayed release(DR/EC) 40 mg PO DAILY metoprolol succinate [Toprol XL] 25 mg tablet extended release 24 hr 25 mg PO DAILY Qty: 30 0RF folic acid 1 mg tablet 1 mg PO DAILY Qty: 90 0RF tamsulosin 0.4 mg capsule 0.4 mg PO DAILY Xarelto 15 mg tablet 15 mg PO QPMWITHMEAL Referrals Follow up/Referrals: Columba Rodríguez APRN [Primary Care Provider, Family Practice] - See instructions Activity Restrictions/Add. Instructions Additional Instructions/Restrictions: The redness of your left lower extremity was presumed to be cellulitis and there was a fluid collection that we performed an incision and drainage on however the incision and drainage yielded blood and clot which is consistent with a hematoma. Therefore we will treat you for an infected hematoma. Continue to floss the vessel loop once or twice a day as needed you may keep the vessel loop and as long as it is continuing to drain blood keep topical antibiotic ointment on this as well. Return with any significant worsening of your redness pus high fevers or other concerns. Clinical Impressions Clinical Impression: Hematoma of left lower leg, Cellulitis of lower leg Print Language Print Language: Mexican Discharge ED Provider: Lele Smith General Adult HPI <KAYLIE Dennis - Last Filed: 10/01/24 12:21> General Chief complaint: Recheck/Abnormal Lab/Rx Stated complaint: left leg swollen, has boil on it Time Seen by Provider: 10/01/24 12:16 Mode of Arrival: Ambulatory Source of Information: Patient Description of Symptoms (Recalled from ER Triage Doc. by RN): pt presents to ED with c/o bilateral lower leg swelling. pt has known lymphedema on right leg. family at bedside report pt legs swelling more since . pt was seen in pcp office and legs were wrapped, pt reports that he took wraps off onsunday and noticed red spot on lower left leg. Related Data Home Medications ?Medication ?Instructions ?Recorded ?Confirmed rivaroxaban 15 mg tablet (Xarelto) 15 mg PO QPMWITHMEAL 03/05/24 10/01/24 tamsulosin 0.4 mg capsule 0.4 mg PO DAILY 03/05/24 10/01/24 tramadol 50 mg tablet 50 mg PO TID 03/15/24 10/01/24 clopidogrel 75 mg tablet 75 mg PO DAILY 07/24/24 10/01/24 diclofenac sodium 1 % topical gel 4 g topical QIDP PRN CHRONIC PAIN 07/24/24 10/01/24 omeprazole 40 mg capsule,delayed 40 mg PO DAILY 07/30/24 10/01/24 release cyclobenzaprine 5 mg tablet 5 mg PO TID PRN 08/15/24 10/01/24 Previous Rx's ?Medication ?Instructions ?Recorded atorvastatin 40 mg tablet 40 mg PO HS 30 days #90 tabs 06/25/24 metoprolol succinate 25 mg 25 mg PO DAILY #30 tabs 08/01/24 tablet,extended release 24 hr (Toprol XL) folic acid 1 mg tablet 1 mg PO DAILY #90 tabs 08/05/24 metformin 1,000 mg tablet 1,000 mg PO BID #60 tabs 08/06/24 ondansetron HCl 4 mg tablet 4 mg PO Q8H PRN nausea and 08/07/24 vomiting 4 days #30 tabs lidocaine 5 % topical ointment See Rx Instructions .Route 08/14/24 .COMPLEX #70.88 grams colestipol 1 gram tablet 1 g PO BID #180 tabs 08/15/24 mupirocin 2 % topical ointment 1 applic topical TID #180 applic 08/26/24 famotidine 40 mg tablet 40 mg PO HS #30 tabs 09/02/24 tirzepatide 2.5 mg/0.5 mL 2.5 mg (0.5 mL) SQ WEEKLY #2.5 mL 09/10/24 subcutaneous pen injector (Mounbrodyro) clindamycin HCl 150 mg capsule 450 mg (3 x 150 mg) PO Q8H 7 days 10/01/24 #63 caps Allergies Allergy/AdvReac Type Severity Reaction Status Date / Time Penicillins (PENICILLINS) Allergy Unknown I-ITCHING Verified 10/01/24 11:08 <Lele Smith MD - Last Filed: 10/01/24 12:58> History of Present Illness HPI narrative: Patient is a 74-year-old with a known history of lymphedema bilaterally who presents today with left lower extremity redness and a focal area of fluctuance and tenderness. This began earlier today the redness has improved somewhat throughout the day. No fevers or chills etc. PFSH <KAYLIE Dennis - Last Filed: 10/01/24 12:21> FOR[facility] Disclaimer: The information contained in this section may have been updated after the patient was seen, as this information can be updated by other users. Medical History Acute nontraumatic kidney injury Hypomagnesemia Elevated brain natriuretic peptide (BNP) level Dyspnea Elevated troponin Chronic GERD Orthostatic hypotension Dizziness Atypical angina Cellulitis of right leg Vocal cord edema Ringing in right ear Chronic hoarseness Globus sensation Vertigo Recurrent vertigo upon turning head toward the left associated with tinnitus. Diverticulitis IBS (irritable bowel syndrome) Latent tuberculosis Rheumatoid arthritis Viral gastroenteritis Laceration of face Patient is not currently bleeding NSTEMI (non-ST elevated myocardial infarction) Atrial flutter On Xarelto Asbestos exposure Tachycardia Abnormal ECG Preoperative testing Episodic confusion He was referred to epilepsy program, EMU but has decided to cancel the appointment Allergic rhinitis Dyspnea on exertion Latent tuberculosis by blood test Seen by pulmonology at [facility] and prescribed INH, RFP, B6 but he never took the medicine as prescribed Restrictive lung disease Left sided abdominal pain Left shoulder strain Left groin pain Claustrophobia Chronic cough Cognitive complaints 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, word finding difficulty Edema of both lower extremities Decreased pedal pulses Non-healing ulcer of foot Right 3rd distal tip DFU Decreased ROM of right shoulder Right shoulder pain Right shoulder injury Pes planus of both feet Skin lesion Impotence Low back pain Left against medical advice Memory loss Chronic SI joint pain Radiculopathy Neuropathic pain Leg pain, posterior Kidney stone Ingrown toenail of right foot Pre-ulcerative calluses Splinter of toe of left foot Pain of left great toe Cellulitis of great toe of right foot Acute bacterial bronchitis Incurved toenail Diabetes mellitus HA1c- 7.3% 06/06/24 Onychomycosis Pain in both feet Callus of foot Diabetic foot ulcer Acute febrile illness SIRS (systemic inflammatory response syndrome) Left against medical advice Lower extremity edema Epistaxis Encounter for pre-operative cardiovascular clearance Sepsis Urinary incontinence Weakness Cellulitis, leg Obesity (BMI 30-39.9) Acute delirium Cellulitis Severe sepsis SIRS (systemic inflammatory response syndrome) Physical deconditioning Bacterial pneumonia Hypokalemia Bronchitis due to COVID-19 virus Pneumonia due to COVID-19 virus COVID-19 virus infection Exposure to COVID-19 virus Viral syndrome Acute bronchitis Hematuria Kidney stone on right side Multiple renal cysts Cough Diastolic dysfunction Mental status change resolved HTN (hypertension) Dyspnea SOB (shortness of breath) HHD (hypertensive heart disease) Pre-op evaluation Microalbuminuria Enlarged prostate History of IBS Diabetes Acquired lymphedema Surgical History History of cardiac cath History of total right knee replacement History of rotator cuff surgery History of coronary artery stent placement History of cholecystectomy Hx of total knee arthroplasty Family History Other Cancer Cerebral palsy Dementia Diabetes Social History Smoking Status: Former smoker alcohol intake: never counseling provided: none substance use type: denies use current occupational status: employed and retired Travel in the last 8 weeks?: None household members: spouse housing: house caffeine: Yes Have you lived/traveled outside US in past 30 days?: No Contact w/someone who lives/traveled outside US past 30 days?: No Exposure to someone with infectious disease in past 14 days?: No Do you have a fever (greater than 100.4 F or 38 C)?: No Have you tested positive for COVID-19?: No Exposed to someone with COVID-19 in past 14 days?: No Do you have a sore throat?: No Do you have a cough?: No Do you have any weakness?: No Do you have any diarrhea?: No Are you experiencing any unusual bleeding?: No Do you have any muscle aches/pain?: No Do you have any abdominal pain?: No Are you experiencing loss of taste or smell?: No Other Medical History Have you received the Flu Vaccine for this season: No Have you received the Pneumonia Vaccine: Yes <Lele Smith MD - Last Filed: 10/01/24 12:58> ROS Obtained: Yes All systems reviewed & no additional complaints except as documented Physical Exam <KAYLIE Dennis - Last Filed: 10/01/24 12:21> Expanded Lower Extremity Exam Left: Leg image:  1. Erythema and warmth 2. Fluctuant area of erythema and tenderness <Lele Smith MD - Last Filed: 10/01/24 12:58> General General appearance: alert Respiratory Respiratory exam: Present normal lung sounds bilaterally Cardiovascular Cardiovascular exam: Present regular rate and clicks Expanded Lower Extremity Exam Left: Leg image:  1. Erythema and warmth 2. Fluctuant area of erythema and tenderness Neurological Exam Neurological exam: Present alert and oriented X3 Medical Decision Making <KAYLIE Dennis - Last Filed: 10/01/24 12:21> Medical Records Screening: Per USPSTF and CDC recommendations, given the prevalence of disease in our region, it is our hospital?s policy to screen for HIV and viral Hepatitis for all patients aged 18 and over and those with ongoing risk factors. Vital Signs: 10/01/24 11:48 10/01/24 11:56 10/01/24 12:01 Temperature 97.9 F Temperature Source Oral Pulse Rate 83 75 Pulse Rate [Left Radial] 82 Respiratory Rate 19 Blood Pressure 134/84 114/80 Blood Pressure [Right Arm] 134/84 Blood Pressure Mean [Right Arm] 100 Blood Pressure Source [Right Arm] Automatic Cuff Blood Pressure Position [Right Arm] Supine 02 Sat by Pulse Oximetry 98 100 99 Oxygen Delivery Method Room Air Orders (Tests/Meds): ED MEDICATIONS Discontinued Medications Generic Name Dose Route Start Last Admin Trade Name Freq PRN Reason Stop Dose Admin Clindamycin HCl 450 mg 10/01/24 12:28 10/01/24 12:41 Clindamycin 150mg Capsule PO 10/01/24 12:29 450 mg ONCE ONE Administration ORDERS Category Date Time Status POCUS Point of Care (ER Only) Stat Exams 10/01/24 12:19 Ordered Wound Culture and Gram Stain Stat Micro 10/01/24 12:46 Received <Lele Smith MD - Last Filed: 10/01/24 12:58> Jevon Inquiry Pt receiving controlled substance: No Vital Signs: 10/01/24 11:48 10/01/24 11:56 10/01/24 12:01 Temperature 97.9 F Temperature Source Oral Pulse Rate 83 75 Pulse Rate [Left Radial] 82 Respiratory Rate 19 Blood Pressure 134/84 114/80 Blood Pressure [Right Arm] 134/84 Blood Pressure Mean [Right Arm] 100 Blood Pressure Source [Right Arm] Automatic Cuff Blood Pressure Position [Right Arm] Supine 02 Sat by Pulse Oximetry 98 100 99 Oxygen Delivery Method Room Air Orders (Tests/Meds): ED MEDICATIONS Discontinued Medications Generic Name Dose Route Start Last Admin Trade Name Freq PRN Reason Stop Dose Admin Clindamycin HCl 450 mg 10/01/24 12:28 10/01/24 12:41 Clindamycin 150mg Capsule PO 10/01/24 12:29 450 mg ONCE ONE Administration ORDERS Category Date Time Status POCUS Point of Care (ER Only) Stat Exams 10/01/24 12:19 Ordered Wound Culture and Gram Stain Stat Micro 10/01/24 12:46 Received Medical Decision Narrative: 74-year-old with above history and physical clinical exam consistent with cellulitis left lower extremity. This is not concerning for DVT. He did have a small area of fluctuance that was very superficial and to differentiate between cellulitis and abscess or fluid collection ultrasound was performed which did show in fact a localize drainable fluid collection after incision and drainage hematoma was evacuated no pus. Culture was sent from this. Given the fact that he has extensive erythema surrounding this we will treat as a possible infected hematoma. Patient had decreased sensation when I was numbing him up likely had some localized trauma to this region unaware that he is on Plavix. Nonetheless this was evacuated a small vessel loop was placed and will out heal by secondary intention and he has been placed on oral clindamycin as he has a penicillin allergy treat surrounding cellulitis and possible infection. Return precautions emphasized. Procedures <Lele Smith MD - Last Filed: 10/01/24 12:58> Miscellaneous Procedure Procedure Performed: Limited soft tissue ultrasound Indication: Soft tissue erythema evaluate for cellulitis versus Identified structures: Location: Left anterior lower leg Findings: Cobblestoning throughout the anterior lower leg there is a localized drainable fluid collection is hypoechoic differential includes seroma hematoma abscess Impression: Left lower extremity cobblestoning and cellulitis and localize drainable fluid collection Images were saved to permanent archive The study was technically adequate Soft Tissue CPT Codes: CPT Neck: 41598-73 CPT Upper extremity: 40630-87 CPT Axilla: 74046-53 CPT Chest wall: 55363-69 CPT Breast: 22605-54-CK/LT (complete), 48827-22-JJ/LT (limited), CPT Upper Back: 57525-44 CPT Lower Back: 71305-36 CPT Abdominal Wall: 07496-30 CPT Pelvic Wall: 86219-02 CPT Lower Extremity: 51082-32 CPT Other Soft Tissue: 23426-85 This study was performed by me, and I personally interpreted all images/videos. Based on my clinical judgement, these images were adequate and did not necessitate further imaging. Critical Care <Lele Smith MD - Last Filed: 10/01/24 12:58> Critical Care Time Critical Care Time: No
[2024-10-01] MEDS: CLINDAMYCIN 150MG CAPSULE 450 MG PO (12:41)
[2024-10-01 12:58] VITALS: BP 126/90; PULSE 80; RESP 20; TEMP 36.8; O2SAT 98
== END 2024-10-01 13:00 | disposition home or self-care (01) ==
PROVIDERS: Emergency Provider Student in an Organized Health Care Education/Training Program; PCP Family Medicine
DX: L03.116 Cellulitis of left lower limb (principal); S80.12XA Contusion of left lower leg, initial encounter; X58.XXXA Exposure to other specified factors, initial encounter
CPT/HCPCS: 10060; 87070; 87205; 99284; J2004

== ENCOUNTER 2024-10-01 16:46 | Emergency (ER) | payer MEDICARE, SELFPAY ==
[2024-10-01] VITALS (7 sets, daily range): BP systolic 94–112; BP diastolic 61–72; PULSE 68–83; RESP 15–18; TEMP 36.5–36.9; O2SAT 98–100; BMI 29.2
--- OUTSIDE RECORDS SUMMARY | 2024-10-01 16:59 | XMS_ITS | Encounter Summary ---
Author Organization [facility] ([place], [place], [place], [place]) Address [address] [place] [id number] Care Team Providers Care Material Assistant Name Role Phone Unavailable Primary Care Provider Unavailabl e Reason for Referral * Consultation (Routine) - Closed Specialty Diagnoses / Procedures Referred By Mitchell dela cruz Referred To Contact Neurology Diagnoses Seizure (HCC) Kirsten Gates [address] [place] [address] Phone: tel: Mac Leonard MD [address] [facility] [address] [place] [address] Phone: tel: fax: Referral ID Status Reason Start Date Expiration Date V isits Requested Visits Authorized [id number] Closed Specialty Services Required 01/03/2024 01/02/2025 1 1 Encounter Details Date Type Department Care Team (Late st Contact Info) Description 01/03/2024 Outside Orders [facility] Neurology [address] [facility] [address] [place] [address] [address] [address] Seizure (HCC) (Primary Dx) Social History Tobacco [...]
--- OUTSIDE RECORDS SUMMARY | 2024-10-01 16:59 | XMS_ITS | Encounter Summary ---
Author Organization [employer] ([place], [place], [place], [place]) Address [address] [place] [address] Care Team Providers Care Chrome Plater Name Role Phone Unavailable Primary Care Provider Unavailabl e Encounter Details Date Type Department Care Team (Late st Contact Info) Description 12/16/2020 Transcribed Document [facility] [place] [address] [place] [address] ProviderJaime MD [address] [place], [place] [id number] Social History Tobacco Use Types Packs/Day Years [...] Source : Stated Height Entry Format : Custer Height, Feet : 5 ft(Converted to: 152 cm, 60 Inch) Height, Inches : 9 Inch(Converted to: 0 ft 9 Inch, 22.86 cm) Clinical Height : 175.26 cm Weight Source : Standing scale Weight Entry Format : Custer Clinical Dosing Weight : 96.93 kg Weight, Pounds : 213 lb Weight, Ounces : 4 oz Body Surface Area (BSA) : 2.12 m2 Body Mass Index : 31.6 kg/m2 (HI) [place] Body Weight : 70 kg CIARA WOODS [...] CIARA WOODS RN - 12/16/2020 6:[address] [place] Suicide Severity Rating Scale (C-SSRS) CSSRS Past [...] Obtained From : Patient Primary Language : Russian Preferred Communication Mode : Verbal Communication Barrier : None Zyglo Technician Needed : No CIARA WOODS RN - [...]
--- OUTSIDE RECORDS SUMMARY | 2024-10-01 16:59 | XMS_ITS | Encounter Summary ---
Author Organization [employer] ([place], [place], [place], [place]) Address [address] [place] [address] Care Team Providers Care Senior Laboratory Technician Name Role Phone Unavailable Primary Care Provider Unavailabl e Encounter Details Date Type Department Care Team (Late st Contact Info) Description 12/23/2020 Transcribed Document [facility] [place] [facility] [place] [address] ProviderJaime MD [address] [place] [address] [id number] Social History Tobacco Use Types Packs/Day Years [...] Georgie Boyce RN - 12/23/2020 7:33 EDT Electronically signed by Adolph Crowder Conversion Metallurgical Engineering Technician Cerner at 07/09/2022 10:38 AM CDT documented in this encounter Plan of Treatment Not on file documented as of this encounter Visit Diagnoses Not on filedocumented in this encounter
--- OUTSIDE RECORDS SUMMARY | 2024-10-01 16:59 | XMS_ITS | Encounter Summary ---
Author Organization [employer] ([place], [place], [place], [place]) Address [address] [place] [address] Care Team Providers Care Soaping Department Supervisor Name Role Phone Unavailable Primary Care Provider Unavailabl e Encounter Details Date Type Department Care Team (Late st Contact Info) Description 12/16/2020 Transcribed Document [facility] [place] [facility] [place] [address] ProviderJaime MD [address] [place], [place] [id number] Social History Tobacco Use Types Packs/Day Years [...]
--- OUTSIDE RECORDS SUMMARY | 2024-10-01 16:59 | XMS_ITS | Encounter Summary ---
Author Organization [employer] ([place], [place], [place], [place]) Address [address] [place] [address] Care Team Providers Care Release Of Information Specialist Name Role Phone Unavailable Primary Care Provider Unavailabl e Encounter Details Date Type Department Care Team (Late st Contact Info) Description 12/08/2020 Transcribed Document [facility] [place] Family Medicine [address] [place] [address] ProviderJaime MD [address] [place], [place] [id number] Social History Tobacco Use Types Packs/Day Years [...] Health Plan: [employer] MED[employer] REPL Policy Number: [id number] Authorization Number: Insurance Primary Name : [employer] MEDICARE REPL Policy Number: [id number] Authorization Status-Primary : Opo status approv Authorized Service Begin Date-Primary : 12/16/2020 EDT Observation Authorization Nbr-Primary : [id number] Authorization Comments-Primary : [employer] Medicare approved for outpt per availity Historical Authorization Comments-Primary : No Authorization Comments Found ROLANDO TABARES RN-Utilization Review - 12/08/2020 15:21 EDT Electronically signed by [facility] Conversion Airway Traffic Controller Cerner at 07/09/2022 10:42 AM CDT documented in this encounter Plan of Treatment Not on file documented as of this encounter Visit Diagnoses Not on filedocumented in this encounter
--- OUTSIDE RECORDS SUMMARY | 2024-10-01 16:59 | XMS_ITS | Clinical Summary ---
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 R76.12 (ICD-10-CM ) 09/18 Active 09/18 Imelda Bunny 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 gamma interferon antigen response without active tuberculosis Edema, limb 022647686 (SNOMED CT) 09/21 Resolved 09/21 Imelda Hollis Edema of extremity Right Leg Edema, limb 037458626 (SNOMED CT) 09/21 Removed 09/21 Jer Zhang [...] DAY 2 THROUGH DAY 5 12/19 azithromycin 54002475284 Cinda Rolando BENZONATATE 100 MG CAPS Take 1 capsule by mouth three times a day as needed 12/19 BENZONATATE Cinda Fu TRIAZOLAM 0.25 MG TABS Take 1 tablet by mouth 12/19 triazolam 93936025488 Cinda Fu LORAZEPAM 1 MG TABS Take 1 tablet 12/19 lorazepam 75691181511 Cinda Fu LEVOFLOXACIN 750 MG TABS Take 1 tablet by mouth once a day 12/19 levofloxacin 72378833388 Cinda Rolando LOSARTAN POTASSIUM 50 MG TABS one tab oral daily 12/19 losartan 30668619339 Cinda Rolando NYSTATIN 686013 UNIT/GM OINT Apply to skin once a day 12/19 nystatin 59910154954 Cinda Fu RIFAMPIN 300 MG CAPS Take 2 by mouth once a day 12/19 rifampin 17231109819 Cinda Rolando CYCLOBENZAPRINE HCL 5 MG TABS one tab oral daily 12/19 cyclobenzaprine 97509701701 Cinda Fu ISONIAZID 300 MG TABS Take 1 tablet by mouth once a day 12/19 isoniazid 61332634311 Cinda PROMETHAZINE-CODEI NE 6.25-10 MG/5ML SYRP Take 5 ml by mouth twice a day 12/19 promethazine-code ine 04992085116 Cinda Fu DICYCLOMINE HCL 10 MG CAPS 1 cap oral twice a day 12/19 dicyclomine 62846754112 Cinda Fu CLOPIDOGREL BISULFATE 75 MG TABS Take 1 tablet by mouth once a day 12/19 clopidogrel 63634893278 Cinda Marshall HYDROCOD POLST-CPM POLST ER 10-8 MG/5ML ORAL SUSPENSION EXTENDED RELEASE Take 1 teaspoon by mouth twice a day 12/19 HYDROCOD POLST-CPM POLST ER 10-8 MG/5ML ORAL SUSPENSION EXTENDED RELEASE Cinda Marshall PLAVIX 75 MG TABS once a day clopidogrel 7690775 7190 Cinda Marshall TRIAZOLAM 0.25 MG TABS Take 1 tablet by mouth 09/24 triazolam 19946518873 Melvin Hartman ISONIAZID 300 MG TABS Take 1 tablet by mouth once a day 12/19 isoniazid 22225879515 Melvin Hartman CLOPIDOGREL BISULFATE 75 MG TABS Take 1 tablet by mouth once a day 12/19 clopidogrel 77514840637 Melvin Hartman LORAZEPAM 1 MG TABS Take 1 tablet 12/19 lorazepam 16999198988 Melvin Hartman NYSTATIN 277130 UNIT/GM OINT Apply to skin once a day 12/19 nystatin 92636415370 Melvin Hartman HYDROCOD POLST-CPM POLST ER 10-8 MG/5ML ORAL SUSPENSION EXTENDED RELEASE Take 1 teaspoon by mouth twice a day 12/19 HYDROCOD POLST-CPM POLST ER 10-8 MG/5ML ORAL SUSPENSION EXTENDED RELEASE Melvin Hartman AZITHROMYCIN 250 MG TABS TAKE 2 TABLETS BY MOUTH ON DAY 1 AND THEN TAKE 1 TABLET BY MOUTH ONCE A DAY ON DAY 2 THROUGH DAY 5 09/24 azithromycin 64467004404 Melvin Hartman RIFAMPIN 300 MG CAPS Take 2 by mouth once a day 09/24 rifampin 08199998922 Melvin Hartman PROMETHAZINE-CODEI NE 6.25-10 MG/5ML SYRP Take 5 ml by mouth twice a day 05/09 promethazine-code ine 61793925257 Melvin Hartman BENZONATATE 100 MG CAPS Take 1 capsule by mouth three times a day as needed 12/19 BENZONATATE Melvin Hartman LEVOFLOXACIN 750 MG TABS Take 1 tablet by mouth once a day 12/19 levofloxacin 84366756316 Melvin Hartman DICYCLOMINE HCL 10 MG CAPS 1 cap oral twice a day 09/24 dicyclomine 55889801336 Melvin Hartman SIMVASTATIN 20 MG TABS one tab oral daily simvastatin 55012920929 Melvin Hartman LOSARTAN POTASSIUM 50 MG TABS one tab oral daily 09/24 losartan 63773591946 Melvin Hartman CYCLOBENZAPRINE HCL 5 MG TABS one tab oral daily 09/24 cyclobenzaprine 69028065303 Melvin Hartman TRAMADOL HCL 50 MG TABS one tab every 6 hours prn tramadol 93005082739 Melvin Hartman METFORMIN HCL 500 MG TABS one tab oral twice a day metformin 91252913241 Melvin Hartman RIFAMPIN 300 MG CAPS take 2 po daily 09/24 RIFAMPIN 67276111501 Jer Zhang MD ISONIAZID 300 MG TABS Take 1 tablet by mouth daily 12/16 ISONIAZID 02833082943 Jer Zhang MD AZITHROMYCIN 250 MG TABS TAKE 2 TABLETS BY MOUTH ON DAY 1 AND THEN TAKE 1 TABLET BY MOUTH ONCE A DAY ON DAY 2 THROUGH DAY 5 09/24 AZITHROMYCIN 93341322235 Gerald Ocasio BENZONATATE 100 MG CAPS TAKE 1 CAPSULE BY MOUTH THREE TIMES DAILY FOR 10 DAYS NEEDED FOR COUGH 12/16 BENZONATATE 86020213775 Gerald Ocasio PROMETHAZINE-CODEI NE 6.25-10 MG/5ML SOLN TAKE 5 ML BY MOUTH TWICE DAILY 12/16 PROMETHAZINE-CODE INE 46776554290 Gerald Ocasio LEVOFLOXACIN 750 MG TABS TAKE 1 TABLET BY MOUTH ONCE DAILY FOR 8 DAYS 12/16 LEVOFLOXACIN 56630873524 Gerald Ocasio CLOPIDOGREL BISULFATE 75 MG TABS TAKE 1 TABLET BY MOUTH ONCE DAILY 12/16 CLOPIDOGREL BISULFATE 39246429295 Gerald D NYSTATIN 514162 UNIT/GM OINT APPLY OINTMENT TOPICALLY ONCE DAILY 12/16 NYSTATIN 56262311194 Gerald D HYDROCOD POLST-CPM POLST ER 10-8 MG/5ML ORAL SUSPENSION EXTENDED RELEASE TAKE 1 TEASPOONFUL (5 ML) BY MOUTH TWICE DAILY MAY CAUSE DROWSINESS 12/16 HYDROCOD POLST-CHLORPHEN POLST 41648791282 Gerald D TRIAZOLAM 0.25 MG TABS TAKE 1 TABLET BY MOUTH 30 MINUTES PRIOR TO MRI ON 09/24 TRIAZOLAM 21669990010 Gerald D LORAZEPAM 1 MG TABS TAKE 1 TABLET 2 HOURS BEFORE MRI FOR ANXIETY 12/16 LORAZEPAM 95942206743 Gerald D Medications Administered No information available. 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
--- OUTSIDE RECORDS SUMMARY | 2024-10-01 16:59 | XMS_ITS | Encounter Summary ---
Author Organization [employer] ([place], [place], [place], [place]) Address [address] [place] [address] Care Team Providers Care Blasting Contract Miner Name Role Phone Unavailable Primary Care Provider Unavailabl e Encounter Details Date Type Department Care Team (Late st Contact Info) Description 12/09/2020 Transcribed Document [facility] [place] [address] [place] [address] ProviderJaime MD [address] [place] [place], [place] [address] Social History Tobacco Use Types Packs/Day Years [...] EDT Electronically signed by Adolph Crowder Conversion Briquette Machine Operator Helper Cerner at 07/09/2022 10:45 AM CDT documented in this encounter Plan of Treatment Not on file documented as of this encounter Visit Diagnoses Not on filedocumented in this encounter
--- OUTSIDE RECORDS SUMMARY | 2024-10-01 16:59 | XMS_ITS | Encounter Summary ---
Author Organization [employer] ([place], [place], [place], [place]) Address [address] [place] [address] Care Team Providers Care Green End Worker Name Role Phone Unavailable Primary Care Provider Unavailabl e Encounter Details Date Type Department Care Team (Late st Contact Info) Description 12/23/2020 Transcribed Document [facility] [place] Family Medicine [address] [place] [address] ProviderJaime MD [address], [place] [id number] Social History Tobacco Use Types Packs/Day Years [...] III /Sex: 1950 Male Med Rec #: [id number] Physician: KAYLA ZIMMERMAN JR, JR, MD-ORT Financial #: [id number] Pt. Type: O Room/Bed: Admit/Disch: 12/23/20 04:16:00 - Institution: [facility] OR PACU Case Times Entry 1 In PACU I 12/23/20 09:56:00 Ready for PACU 12/23/20 11:12:00 Discharge Discharge from PACU 12/23/20 11:12:00 I Last Modified By: Janene Helm RN 12/23/20 11:16:01 [facility] Main OR PACU Case Times Audit 12/23/20 11:16:01 Clothes Drier Repairer: KINZA Modifier: KINZA 1 <*> Ready for PACU Discharge 12/23/20 10:30:00 1 <+> Discharge from PACU I Finalized By: Janene Helm RN Document Signatures Signed By: Janene Helm RN 12/23/20 11:16 documented in this encounter Plan of Treatment Not on file documented as of this encounter Visit Diagnoses Not on filedocumented in this encounter
--- OUTSIDE RECORDS SUMMARY | 2024-10-01 16:59 | XMS_ITS | Encounter Summary ---
Author Organization [email or web address] ([place], [place], [place], [place]) Address [address] [place] [address] Care Team Providers Care Field Producer Name Role Phone Unavailable Primary Care Provider Unavailabl e Encounter Details Date Type Department Care Team (Late st Contact Info) Description 12/22/2020 Transcribed Document [facility] [place] Family Medicine Counts include 234 beds at the [facility] [place] [address] ProviderJaime MD [address] [place], [place] [phone] Social History Tobacco Use Types Packs/Day Years [...] or 4 frozen water bottles in the [facility]. Continue to use Incentive Spirometer [...] Barley. Bulgur wheat. Millet. Bran muffins. Popcorn. Alna wafer crackers. Vegetables Sweet potatoes. Spinach. Kale. Artichokes. Cabbage. Broccoli. Green peas. Carrots. Squash. Fruits Berries. Pears. Apples. Oranges. Avocados. Prunes and raisins. Dried figs. Meats and Other Protein Sources Olivarez, kidney, amador, and soy beans. Split peas. [...] 1 katy has 11 g of protein. Pierce seeds ??? 1 oz has 5.5 g [...] the floor. Place frequently used items in hasz-uk-tgtyr places Keep electrical cables out of the [...] ? Using the bathroom. ? Using household corporate treasury analyst or toxic chemicals. ? Touching or [...] activities are safe for you. ??? Take jgcj-nsz-jewbinz and prescription medicines only as told by [...] provider. Document Revised: 03/16/2018 Document Reviewed: 10/27/2017 [employer] Patient Education ? 2020 [employer] documented in this encounter Plan of Treatment Not on file documented as of this encounter Visit Diagnoses Not on filedocumented in this encounter
--- OUTSIDE RECORDS SUMMARY | 2024-10-01 16:59 | XMS_ITS | Encounter Summary ---
Author Organization [email or web address] ([place], [place], [place], [place]) Address [address] [place] [address] Care Team Providers Care Maintenance Plumber Name Role Phone Unavailable Primary Care Provider Unavailabl e Encounter Details Date Type Department Care Team (Late st Contact Info) Description 12/23/2020 Transcribed Document [facility] [place] Family Medicine [address] [place] [address] ProviderJaime MD [address], [place] [phone] Social History Tobacco Use Types Packs/Day Years [...] III /Sex: 1950 Male Med Rec #: [id number] Physician: KAYLA ZIMMERMAN JR, JR, MD-ORT Financial #: [id number] Pt. Type: O Room/Bed: Admit/Disch: 12/23/20 04:16:00 - [place] [facility] [place] Times Entry 1 In Preop 12/23/20 05:15:00 Ready for Holding n/a Room Patient Ready for 12/23/20 06:42:00 Surgery Patient Out of Preop 12/23/20 07:50:00 Patient Out of n/a Holding Room Last Modified By: Aden Boyce RN 12/23/20 07:46:17 [facility] PreOp Case Times Audit 12/23/20 07:46:17 German Tutor: BLANKDanny Modifier: ADENVERNADanny <+> 1 Patient Out of Preop Finalized By: Aden Boyce, RN Document Signatures Signed By: Aden Boyce RN 12/23/20 07:46 documented in this encounter Plan of Treatment Not on file documented as of this encounter Visit Diagnoses Not on filedocumented in this encounter
--- OUTSIDE RECORDS SUMMARY | 2024-10-01 16:59 | XMS_ITS | Encounter Summary ---
Author Organization [employer] ([place], [place], [place], [place]) Address [address] [place] [address] Care Team Providers Care Online Education Manager Name Role Phone Unavailable Primary Care Provider Unavailabl e Encounter Details Date Type Department Care Team (Late st Contact Info) Description 12/23/2020 Transcribed Document [facility] [place] [address] [place] [address] ProviderJaime MD [address] [place] [phone] Social History Tobacco Use Types Packs/Day Years [...] knee 12/23/2020 12:00 Atherosclerotic heart disease of [place] coronary artery without angina pectoris 12/23/2020 12:00 [...] to Stand : Supervision/set-up (Comment: [facility]GA [ALEXANDRA KYE OTR/Danny - 12/24/2020 6:53 EDT] ) Bed [...]
--- OUTSIDE RECORDS SUMMARY | 2024-10-01 16:59 | XMS_ITS | Encounter Summary ---
Author Organization [employer] ([place], [place], [place], [place]) Address [address] [place] [address] Care Team Providers Care Case Aide Name Role Phone Unavailable Primary Care Provider Unavailabl e Encounter Details Date Type Department Care Team (Late st Contact Info) Description 12/23/2020 Transcribed Document [facility] [place] [address] ProviderJaime MD [address] [place] [phone] Social History Tobacco Use Types Packs/Day Years [...] Sent to Post Acute Providers : Yes [facility] Quality Web Info Shared w Pt/Fam [...] ANGELA NGUYEN RN - 12/23/2020 14:44 EDT documented in this encounter Plan of Treatment Not on file documented as of this encounter Visit Diagnoses Not on filedocumented in this encounter
--- OUTSIDE RECORDS SUMMARY | 2024-10-01 16:59 | XMS_ITS | Encounter Summary ---
Author Organization [employer] ([place], [place], [place], [place]) Address [address] [place] [address] Care Team Providers Care Assistant Manager Trainee Name Role Phone Unavailable Primary Care Provider Unavailabl e Encounter Details Date Type Department Care Team (Late st Contact Info) Description 12/24/2020 Transcribed Document [facility] [place] Family Medicine [facility] [place] [address] ProviderJaime MD [address] [place] [id number] Social History Tobacco Use Types Packs/Day Years [...] right total knee replacement, final condition improved. /[id number] MD RAO Gibbs Jr/DIANNA / RAO / MODL /[id number] documented in this encounter Plan of Treatment Not on file documented as of this encounter Visit Diagnoses Not on filedocumented in this encounter
--- OUTSIDE RECORDS SUMMARY | 2024-10-01 16:59 | XMS_ITS | Encounter Summary ---
Author Organization [employer] ([place], [place], [place], [place]) Address [address] [place] [address] Care Team Providers Care Forming Yardage Control Operator Name Role Phone Unavailable Primary Care Provider Unavailabl e Encounter Details Date Type Department Care Team (Late st Contact Info) Description 12/23/2020 Transcribed Document [facility] [place] [address] [place] [address] ProviderJaime MD [address] [place] [address] Social History Tobacco Use Types Packs/Day Years Used Date Smoking Tobacco: Never Assessed Sex and Gender Information Value Date Recorded Sex Assigned at Not on file Legal Sex Male 5:28 PM CDT Gender Identity Not on file Sexual Orientation Not on file documented as of this encounter Miscellaneous Notes * Cerner Conversion Note - Jaime ProviderMD - 12/23/2020 1:22 [place] [address] AYLEEN BLACK III :1950 Visit Time:12/23/2020 What [...] then 6 days after surgery Community [facility] Home Health Services: [facility] [...] When 12/29/2020 09:45 AM EDT Where: [address] [facility] [address] [place] [address] Medications What How Much When Instructions Next [...] or 4 frozen water bottles in the [facility]. Continue to use Incentive Spirometer 10 [...] Barley. Bulgur wheat. Millet. Bran muffins. Popcorn. [place] wafer crackers. Vegetables Sweet potatoes. Spinach. Kale. Artichokes. Cabbage. Broccoli. Green peas. Carrots. Squash. Fruits Berries. Pears. Apples. Oranges. Avocados. Prunes and raisins. Dried figs. Meats and Other Protein Sources Percival, kidney, amador, and soy beans. Split peas. [...] 1 katy has 11 g of protein. Coleman seeds ??? 1 oz has 5.5 g [...] the floor. Place frequently used items in wzmc-mn-ehsew places Keep electrical cables out of the [...] ? Using the bathroom. ? Using household house father or toxic chemicals. ? Touching or taking [...] activities are safe for you. ??? Take fyjy-ehe-daemytj and prescription medicines only as told by [...] provider. Document Revised: 03/16/2018 Document Reviewed: 10/27/2017 [employer] Patient Education ?? 2020 Benbria. acetaminophen (oral) (a SEET a MIN oh fen) Actamin, Anacin AF, Aurophen, Bromo [place], Children's Tylenol, Mapap, M-Pap, Pharbetol, Silapap [...] is a pain reliever and a fever mechanical lead. There are many brands and forms of [...] may report side effects to FDA at 4-298-POX-0990. What other drugs will affect acetaminophen? Other drugs may affect acetaminophen, including prescription and olvp-lvf-feefpsn medicines, vitamins, and herbal products. Tell your [...] to ensure that the information provided by [employer]. ('[employer]') is accurate, up-to-date, and complete, but no guarantee is made to that effect. Drug information contained herein may be time sensitive. [employer] information has been compiled for use by healthcare practitioners and consumers in the [place] and therefore [employer] does not warrant that uses outside of the [place] are appropriate, unless specifically indicated otherwise. [employer]'s drug information does not endorse drugs, diagnose patients or recommend therapy. [facility] drug information is an informational resource designed [...] effective or appropriate for any given patient. [facility] does not assume any responsibility for any aspect of healthcare administered with the aid of information [facility] provides. The information contained herein is not intended to cover all possible uses, directions, precautions, warnings, drug interactions, allergic reactions, or adverse effects. If you have questions about the drugs you are taking, check with your doctor, nurse or pharmacist. Copyright 3118-3359 [facility]. Version: 21.. Revision Date: 11/01/2019. aspirin (oral) ( pir in) Arthritis Pain, Aspi-Cor, Aspir-Low, Nusrat Plus, Durlaza, Ecotrin, Miniprin, Vazalore What is the most important information I should know about aspirin? Aspirin can cause Tonia's syndrome, a serious and sometimes fatal condition in children. What is aspirin? Aspirin is a salicylate (tf-ERK-ul-ate) that is used to treat pain, and [...] may report side effects to FDA at 5-273-XML-4059. What other drugs will affect aspirin? Ask [...] drugs may affect aspirin, including prescription and zcqa-rnz-otiiruv medicines, vitamins, and herbal products. Not all [...] to ensure that the information provided by [employer]. ('[employer]') is accurate, up-to-date, and complete, but no guarantee is made to that effect. Drug information contained herein may be time sensitive. [employer] information has been compiled for use by healthcare practitioners and consumers in the [place] and therefore [employer] does not warrant that uses outside of the [place] are appropriate, unless specifically indicated otherwise. [employer] drug information does not endorse drugs, diagnose patients or recommend therapy. [employer] drug information is an informational resource designed [...] effective or appropriate for any given patient. [employer] does not assume any responsibility for any aspect of healthcare administered with the aid of information [facility] provides. The information contained herein is not intended to cover all possible uses, directions, precautions, warnings, drug interactions, allergic reactions, or adverse effects. If you have questions about the drugs you are taking, check with your doctor, nurse or pharmacist. Copyright 2752-2926 [employer]. Version: 16.03. Revision Date: 09/21/2020. oxycodone (ox [...] The extended-release form of oxycodone is for wkayuc-lwf-fguhm treatment of pain and should not be [...] against the law. Stop taking all other waljjw-scq-ioine opioid pain medicines when you start taking [...] may report side effects to FDA at 3-505-ZXJ-7127. What other drugs will affect oxycodone? You [...] may affect oxycodone. This includes prescription and kutd-qqq-kljakwd medicines, vitamins, and herbal products. Not all [...] to ensure that the information provided by [employer]. ('[employer]') is accurate, up-to-date, and complete, but no guarantee is made to that effect. Drug information contained herein may be time sensitive. [employer] information has been compiled for use by healthcare practitioners and consumers in the [place] and therefore [employer] does not warrant that uses outside of the [place] are appropriate, unless specifically indicated otherwise. [employer]'s drug information does not endorse drugs, diagnose patients or recommend therapy. [employer] drug information is an informational resource designed [...] effective or appropriate for any given patient. [employer] does not assume any responsibility for any aspect of healthcare administered with the aid of information [employer] provides. The information contained herein is not intended to cover all possible uses, directions, precautions, warnings, drug interactions, allergic reactions, or adverse effects. If you have questions about the drugs you are taking, check with your doctor, nurse or pharmacist. Copyright 4311-7593 [facility] [employer]. Version: 14.02. Revision Date: 04/23/2020. docusate (oral/rectal) [...] may report side effects to FDA at 9-628-FPF-5991. What other drugs will affect docusate? Other drugs may affect docusate, including prescription and ozmc-pgb-tbayhlu medicines, vitamins, and herbal products. Tell your [...] to ensure that the information provided by [employer]. ('[employer]') is accurate, up-to-date, and complete, but no guarantee is made to that effect. Drug information contained herein may be time sensitive. [employer] information has been compiled for use by healthcare practitioners and consumers in the [place] and therefore [employer] does not warrant that uses outside of the [place] are appropriate, unless specifically indicated otherwise. [employer]'s drug information does not endorse drugs, diagnose patients or recommend therapy. [employer] drug information is an informational resource designed [...] effective or appropriate for any given patient. [employer] does not assume any responsibility for any aspect of healthcare administered with the aid of information [employer] provides. The information contained herein is not intended to cover all possible uses, directions, precautions, warnings, drug interactions, allergic reactions, or adverse effects. If you have questions about the drugs you are taking, check with your doctor, nurse or pharmacist. Copyright 6239-8868 [employer]. Version: 4.01. Revision Date: 10/01/2018. cephalexin (sef [...] may report side effects to FDA at 5-557-WNY-1317. What other drugs will affect cephalexin? Tell your doctor about all your other medicines, especially: ?? metformin; or ?? probenecid. This list is not complete. Other drugs may affect cephalexin, including prescription and klcv-jwo-tymcueg medicines, vitamins, and herbal products. Not all [...] to ensure that the information provided by [employer]. ('[employer]') is accurate, up-to-date, and complete, but no guarantee is made to that effect. Drug information contained herein may be time sensitive. [employer] information has been compiled for use by healthcare practitioners and consumers in the [place] and therefore [employer] does not warrant that uses outside of the [place] are appropriate, unless specifically indicated otherwise. [employer] drug information does not endorse drugs, diagnose patients or recommend therapy. [employer] drug information is an informational resource designed [...] effective or appropriate for any given patient. [employer] does not assume any responsibility for any aspect of healthcare administered with the aid of information [employer] provides. The information contained herein is not intended to cover all possible uses, directions, precautions, warnings, drug interactions, allergic reactions, or adverse effects. If you have questions about the drugs you are taking, check with your doctor, nurse or pharmacist. Copyright 6726-0716 [employer]. Version: 10.03. Revision Date: 03/30/2020. tramadol (TRAM [...] tramadol? Electronically signed by Adolph Crowder Conversion [facility] Therapist Romulo at 07/09/2022 10:47 AM CDT documented in this encounter Plan of Treatment Not on file documented as of this encounter Visit Diagnoses Not on filedocumented in this encounter
--- OUTSIDE RECORDS SUMMARY | 2024-10-01 16:59 | XMS_ITS | Referral Summary ---
Author Organization [employer] ([place], [place], [place], [place]) Address [address] [place], [place] [id number] Care Team Providers Care Ethanol Quality Leader Name Role Phone Unavailable Primary Care [...] Date Milton rded Speak language other than Jamaican at home Not on file 01/23/2024 Want [...] Plan of Treatment Not on file Insurance [facility] MEDICARE ADVANTAGE
--- OUTSIDE RECORDS SUMMARY | 2024-10-01 16:59 | XMS_ITS | Encounter Summary ---
Author Organization [employer] ([place], [place], [place], [place]) Address [address] [place] [address] Care Team Providers Care Mix Maker Name Role Phone Unavailable Primary Care Provider Unavailabl e Encounter Details Date Type Department Care Team (Late st Contact Info) Description 12/23/2020 Transcribed Document [facility] [place] [facility] [place] [address] ProviderJaime MD [facility] [place], [place] [id number] Social History Tobacco Use Types Packs/Day Years [...] knee 12/23/2020 12:00 Atherosclerotic heart disease of [place] coronary artery without angina pectoris 12/23/2020 12:00 [...] Not Indicated : Other: D/C home today. LUYSSES SYED, PT - 12/23/2020 14:03 EDT Plan [...]
--- OUTSIDE RECORDS SUMMARY | 2024-10-01 16:59 | XMS_ITS | Encounter Summary ---
Author Organization [employer] ([place], [place], [place], [place]) Address [address] [place] [id number] Care Team Providers Care Alcoholism Worker Name Role Phone Unavailable Primary Care Provider Unavailabl e Encounter Details Date Type Department Care Team (Late st Contact Info) Description 12/23/2020 Transcribed Document [facility] [place] [address] [place] [address] ProviderJaime MD [address] [place], [place] [address] Social History Tobacco Use Types Packs/Day Years [...] : Yes Discharge To Care Management : Home/Residential/Senior Living or Self Care -01 ANGELA NGUYEN RN [...]
--- OUTSIDE RECORDS SUMMARY | 2024-10-01 16:59 | XMS_ITS | Encounter Summary ---
Author Organization [employer] ([place], [place], [place], [place]) Address [address] [place] [address] Care Team Providers Care Linting Machine Operator Name Role Phone Unavailable Primary Care Provider Unavailabl e Encounter Details Date Type Department Care Team (Late st Contact Info) Description 12/23/2020 Transcribed Document [facility] [place] [facility] [place] [address] ProviderJaime MD [address] [place], [place] [id number] Social History Tobacco Use Types Packs/Day Years [...]
--- OUTSIDE RECORDS SUMMARY | 2024-10-01 16:59 | XMS_ITS | Encounter Summary ---
Author Organization [employer] ([place], [place], [place], [place]) Address [address] [place] [id number] Care Team Providers Care Clerk To Justice Name Role Phone Unavailable Primary Care Provider Unavailabl e Encounter Details Date Type Department Care Team (Late st Contact Info) Description 12/23/2020 Transcribed Document [facility] [place] Medicine [address] [place] [address] ProviderJaime MD [address], [place] [id number] Social History Tobacco Use Types Packs/Day Years [...] ADI DAUGHERTY MD-INT - 12/23/2020 12:43 EDT documented in this encounter Plan of Treatment Not on file documented as of this encounter Visit Diagnoses Not on filedocumented in this encounter
--- OUTSIDE RECORDS SUMMARY | 2024-10-01 16:59 | XMS_ITS | Encounter Summary ---
Author Organization [employer] ([place], [place], [place], [place]) Address [address] [place] [address] Care Team Providers Care Attending Radiologist Name Role Phone Unavailable Primary Care Provider Unavailabl e Encounter Details Date Type Department Care Team (Late st Contact Info) Description 12/23/2020 Transcribed Document [facility] [place] [facility] [place] [address] ProviderJaime MD [address] [place], [place] [phone] Social History Tobacco Use Types Packs/Day Years [...] III /Sex: 1950 Male Med Rec #: [id number] Physician: KAYLA ZIMMERMAN JR, JR, MD-ORT Financial #: [id number] Pt. Type: O Room/Bed: Admit/Disch: 12/23/20 04:16:00 - [place] [facility] [place] Case Attendance Entry 1 Entry 2 Entry 3 Case Attendee KAYLA ZIMMERMAN JR, JR, TARA MERA APRN,HAYDER KOROMA, LUCIE CHANCEORT Role Performed Surgeon/Proceduralist, GENERAL MAGISTRATE/Nurse Code Machine Operator Hydroponics Worker, First First Time In 12/23/20 07:51:00 12/23/20 [...] 5 Entry 6 Case Attendee Stephan Boyce, CRYPTOLOGICAL TECHNICIAN/GROUP MANAGING DIRECTOR GET ARIAS ST Peel, Polly, Scub Tech Role Performed Car Dumper, First Scrub, First Scrub, Second Time In [...] Case Attendee OTHER, ATTENDEE #1 NGOZI PETTY, GENERAL MAGISTRATE Role Performed Vendor GENERAL MAGISTRATE/Nurse Code Machine Operator Time In 12/23/20 07:51:00 12/23/20 08:29:00 Time Out 12/23/20 09:55:00 12/23/20 08:41:00 Procedure Knee Total Joint Knee Total Joint Replacement Replacement Other Attendee [facility] GENERAL MAGISTRATE BREAK Superficial Wound Closed By: Thom Modified By: HAYDER EASON RN LONGSWORTH, GARY, LUCIE 12/23/20 07:19:17 12/23/20 08:29:30 [facility] IntraOp Case Attendance Audit 12/23/20 09:55:23 Skip Tender: LONGGA Modifier: LONGGA 1 <+> Time Out [...] Procedure Knee Total Joint Replacement 12/23/20 08:48:55 Skip Tender: LONGGA Modifier: LONGGA 8 <+> Time Out 8 <*> Procedure Knee Total Joint Replacement 12/23/20 08:29:30 Skip Tender: LONGGA Modifier: LONGGA <+> 8 Case Attendee <+> 8 Role Performed <+> 8 Time In <+> 8 Procedure <+> 8 Other Attendee 12/23/20 08:25:18 Skip Tender: LONGGA Modifier: LONGGA 1 <+> Time In [...] Procedure Knee Total Joint Replacement 12/23/20 07:25:50 Skip Tender: LONGGA Modifier: LONGGA <+> 1 Procedure 2 [...] SJE IntraOp Case Times Audit 12/23/20 09:55:21 Skip Tender: LONGGA Modifier: LONGGA <+> 1 Out Room Time <+> 1 Stop Time <+> 1 Stop Time 12/23/20 08:21:13 Skip Tender: LONGGA Modifier: LONGGA <+> 1 Start Time [...] SJE IntraOp Counts Verification Audit 12/23/20 09:01:12 Skip Tender: LONGGA Modifier: LONGGA <+> 2 Procedure <+> [...] HAYDER EASON, LUCIE, Accompanied by TARA MERA APRN,GENERAL MAGISTRATE Last Modified By: HAYDER EASON RN 12/23/20 09:08:10 SJE IntraOp Dressing and Packing Entry 1 Type Dressing Location RIGHT KNEE Wound Dressing Item Papo Supplemental Limb immobilizer, Cold Applications pack Applied By Stephan Boyce, CRYPTOLOGICAL TECHNICIAN/GROUP MANAGING DIRECTOR Other Comments JONATAHN WOUND DRESSING Last Modified By: HAYDER EASON [...] RN 12/23/20 07:24:40 SJE IntraOp General Case Coordinator Cardiopulmonary Services 1 Case Information OR OR 02 SJE Case Level 1 Room Verified Yes Wound Class I - Clean Specialty Orthopedic Anesthesia Type General ASA Class 3 Diagnosis Preop Diagnosis DEGENERATIVE JOINT DISEASE, RIGHT KNEE Postop Same As Preop Yes Postop Diagnosis DEGENERATIVE JOINT DISEASE, RIGHT KNEE Last Modified By: HAYDER EASON RN 12/23/20 08:27:58 SJE IntraOp General Case Data Audit 12/23/20 08:27:58 Skip Tender: YVETTE Modifier: LONGGA 1 <*> OR OR [...] PATELLA ITOTAL JIGS CR ITOTAL ID Identification [id number] Description Implant Quantity 2 1 1 Implant Site RIGHT KNEE RIGHT KNEE RIGHT KNEE Implant Identification Model Number Implant [id number] Identification Serial Number Implant [id number] Identification Lot Number Implant [place] Conformis Conformis Identification Orthopaedics Remanufacturing Technician Name: Implant [id number] Identification Catalog Number Implant Size Implant Has an Yes Yes Yes Expiration Date Implant Expiration 01/24/22 09/23/22 12/24/21 Date Wasted Radioactive Material Time Implanted Tissue Implant Continue for Tissue Implant Documentation Tissue Identification Number Graft Prep Per Remanufacturing Technician Instructions: Tissue Preparation Method: Reconstitution Solution: Reconstitution Solution Lot Number Reconstitution Solution Expiration Date: Thawing Solution Thawing Solution Lot Number Thawing Solution Expiration Date Preparation Materials, Other Preparation Materials, Other Lot Number Preparation Materials, Other Expiration Date Tissue Prepared/Processed By Remanufacturing Technician Paperwork Completed Implant Type Comment Last Modified [...] KT CR FULL ITOTAL ID Identification [id number] Description Implant Quantity 1 1 1 Implant Site RIGHT KNEE RIGHT KNEE RIGHT KNEE Implant Identification Model Number Implant [id number] Identification Serial Number Implant Identification Lot Number Implant Conformis Conformis Conformis Identification Remanufacturing Technician Name: Implant [id number] Identification Catalog Number Implant Size Implant Has an Yes Yes Yes Expiration Date Implant Expiration 12/24/21 12/24/21 12/24/21 Date Wasted Radioactive Material Time Implanted Tissue Implant Continue for Tissue Implant Documentation Tissue Identification Number Graft Prep Per Remanufacturing Technician Instructions: Tissue Preparation Method: Reconstitution Solution: Reconstitution Solution Lot Number Reconstitution Solution Expiration Date: Thawing Solution Thawing Solution Lot Number Thawing Solution Expiration Date Preparation Materials, Other Preparation Materials, Other Lot Number Preparation Materials, Other Expiration Date Tissue Prepared/Processed By Remanufacturing Technician Paperwork Completed Implant Type Comment Last Modified By: HAYDER EASON RN LONGSWORTH, GARY, RN LONGSWORTH, GARY, RN 12/23/20 08:49:46 12/23/20 08:51:06 12/23/20 08:52:02 SJE IntraOp Implant Log Audit 12/23/20 08:52:02 Skip Tender: LONGGA Modifier: LONGGA <+> 6 Implant Identification Description <+> 6 Implant Identification Serial Number <+> 6 Implant Identification Remanufacturing Technician Name: <+> 6 Implant Expiration Date <+> 6 Implant Site <+> 6 Implant Quantity <+> 6 Implant Identification Catalog Number <+> 6 Implant Type <+> 6 Implant Has an Expiration Date <+> 6 Type 12/23/20 08:51:06 Skip Tender: LONGGA Modifier: LONGGA <+> 5 Implant Identification Description <+> 5 Implant Identification Serial Number <+> 5 Implant Identification Remanufacturing Technician Name: <+> 5 Implant Expiration Date <+> 5 Implant Site <+> 5 Implant Quantity <+> 5 Implant Identification Catalog Number <+> 5 Implant Type <+> 5 Implant Has an Expiration Date <+> 5 Type 12/23/20 08:49:46 Skip Tender: LONGGA Modifier: LONGGA <+> 4 Implant Identification Description <+> 4 Implant Identification Serial Number <+> 4 Implant Identification Remanufacturing Technician Name: <+> 4 Implant Expiration Date <+> 4 Implant Site <+> 4 Implant Quantity <+> 4 Implant Identification Catalog Number <+> 4 Implant Type <+> 4 Implant Has an Expiration Date <+> 4 Type 12/23/20 08:48:24 Skip Tender: LONGGA Modifier: LONGGA <+> 3 Implant Expiration Date 12/23/20 08:48:23 Skip Tender: LONGGA Modifier: LONGGA <+> 3 Implant Identification Description <+> 3 Implant Identification Serial Number <+> 3 Implant Identification Remanufacturing Technician Name: <+> 3 Implant Site <+> 3 Implant Quantity <+> 3 Implant Identification Catalog Number <+> 3 Implant Type <+> 3 Implant Has an Expiration Date <+> 3 Type 12/23/20 08:47:19 Skip Tender: LONGGA Modifier: LONGGA <+> 2 Implant Identification Description <+> 2 Implant Identification Lot Number <+> 2 Implant Identification Remanufacturing Technician Name: <+> 2 Implant Expiration Date <+> [...] w/ vancomycin 1Gm vial - epinephrine 1:100,000 [id number] 20ml vial - [id number] Combo Med List 4 - Combo Med [...] SJE IntraOp Medication Admin Audit 12/23/20 08:39:42 Skip Tender: LONGGA Modifier: LONGGA <+> 5 Medication/Irrigant <+> [...] JR, MD-ORT, SAMARIA, TARA, URSULA,PAPO, Austen, Stephan, CRYPTOLOGICAL TECHNICIAN/GROUP MANAGING DIRECTOR Position Verified Positioning Yes Verified by Anesthesia [...] SJE IntraOp Surgical Procedures Audit 12/23/20 09:51:54 Skip Tender: LONGGA Modifier: LONGGA 1 <*> Procedure Knee Total Joint Replacement 1 <+> Stop 12/23/20 08:21:22 Skip Tender: LONGGA Modifier: LONGGA <+> 1 Start SJE IntraOp Temp Regulation Devices Entry 1 Temp Regulation Temperature Warm blankets Regulation Device Temperature Upper body Regulation Site Temperature SAMARIA, TARA, SOCIOLOGY INSTRUCTOR,GENERAL MAGISTRATE Regulation Device Applied by Last Modified By: [...] SJE IntraOp Time Out Audit 12/23/20 08:31:31 Skip Tender: YVETTE Modifier: YVETTE 1 <+> Surgeon 1 [...] Padded Under Cuff Applied By Stephan Boyce, KATHI/GROUP MANAGING DIRECTOR Times Start Time 12/23/20 08:10:00 Stop Time 12/23/20 08:59:00 Last Modified By: HAYDER EASON RN 12/23/20 09:00:54 SJE IntraOp Tourniquet Audit 12/23/20 09:00:54 Skip Tender: YVETTE Modifier: YVETTE <+> 1 Stop Time Case Comments <None> Finalized By: HAYDER EASON, RN Document Signatures Signed By: HAYDER EASON RN 12/23/20 09:59 Electronically signed by Lakesha [facility] Conversion Account Services Representative Cerner at 07/09/2022 10:43 AM CDT documented in this encounter Plan of Treatment Not on file documented as of this encounter Visit Diagnoses Not on filedocumented in this encounter
--- OUTSIDE RECORDS SUMMARY | 2024-10-01 16:59 | XMS_ITS | Encounter Summary ---
Author Organization [employer] ([place], [place], [place], [place]) Address [address] [place] [address] Care Team Providers Care Client Services Vice President Name Role Phone Unavailable Primary Care Provider Unavailabl e Encounter Details Date Type Department Care Team (Late st Contact Info) Description 12/09/2020 Transcribed Document [facility] [place] [facility] [place] [address] ProviderJaime MD [address] [place] [phone] Social History Tobacco Use Types Packs/Day Years [...] Appearance CLEAR2 12/09/2020 16:01 EDT Urine Specific [place] *1.026 12/09/2020 16:01 EDT Urine pH Dipstick [...]
--- OUTSIDE RECORDS SUMMARY | 2024-10-01 16:59 | XMS_ITS | Encounter Summary ---
Author Organization [employer] ([place], [place], [place], [place]) Address [address] [place] [address] Care Team Providers Care Utility Maintenance Worker Name Role Phone Unavailable Primary Care Provider Unavailabl e Encounter Details Date Type Department Care Team (Late st Contact Info) Description 12/23/2020 Transcribed Document [facility] [place] [address] [place] [address] ProviderJaime MD [address] [place], [place] [phone] Social History Tobacco Use Types Packs/Day Years [...] ANGELA NGUYEN RN - 12/23/2020 14:41 EDT Electronically signed by Adolph Crowder Conversion Ground Operations Supervisor Cerner at 07/09/2022 10:43 AM CDT documented in this encounter Plan of Treatment Not on file documented as of this encounter Visit Diagnoses Not on filedocumented in this encounter
--- OUTSIDE RECORDS SUMMARY | 2024-10-01 16:59 | XMS_ITS | Encounter Summary ---
Author Organization [employer] ([place], [place], [place], [place]) Address [address] [place] [address] Care Team Providers Care Transaction Coordinator Name Role Phone Unavailable Primary Care Provider Unavailabl e Encounter Details Date Type Department Care Team (Late st Contact Info) Description 12/23/2020 Transcribed Document [facility] [place] [facility] [place] [address] ProviderJaime MD [address] [place] [phone] Social History Tobacco Use Types Packs/Day Years [...] EDT Chloraseptic Menthol 1.4% topical spray: 5 [place], Oral, [place], Q2H, PRN for Sore Throat, Routine, Start [...] Oral, Q4H phenol 1.4% throat spray 5 [place], Oral, Q2H promethazine 25 mg tab 12.5 [...] HTN, CAD and cancer Procedure history: Cholecystectomy (07222094). Hernia ([id number]). Rotator cuff right ([id number]). Knee left partial ([id number]). right upper thigh boil. lymph node drained from right arm pit. Colonoscopy (715930394). EGD - Esophagogastroduodenoscopy ([id number]). heart cath. cardiac stent. Social History Patient [...] swelling, No deformity, Normal gait. Integumentary: Warm, [place], Intact, No pallor, No rash, WOUND STABLE. [...] then you may give Tylenol 650 mg PO/MD x 1. If no response in 2 [...] for pain as per Dr. Hartman recommendations. Electronically signed by Adolph Crowder Conversion Information Systems Project Manager Cerner at 07/09/2022 10:45 AM CDT documented in this encounter Plan of Treatment Not on file documented as of this encounter Visit Diagnoses Not on filedocumented in this encounter
--- OUTSIDE RECORDS SUMMARY | 2024-10-01 16:59 | XMS_ITS | Clinical Summary ---
Author Organization [facility] Address [address] [place] [address] Care Team Providers Care Director Of Product Marketing Name Role Phone Markus Huang POLICE LIAISON Primary Care Provider Allergies Active Allergy Reactions [...] Wellness (AWV) 1950 UKY-Infant/Child/Adol SDOH Screenings 1950 [id number] Vaccine (#1) 1955 Diabetes: Dental Exam 1962 [...] Recently Relevant to Health Maintenance Results * [place] Hepatitis C Antibody (02/13/2019 6:35 PM EST) [place] Hepatitis C Ab NEGATIVE Reference Range: Negative [facility] 02/13/2019 6:35 PM EST 02/13/2019 7:06 PM EST us Major Diaz MD LAB BLOOD ORDERABLES Final Re sult [facility] from Last 3 Months or Most Recently Relevant to Health Maintenance Insurance [facility] MEDICARE Care Teams Director Of Product Marketing Relationship Specialty Start Date End Date Markus Huang APRN [address] [place] [address] [place] [address] PCP - General 10/10/22
--- OUTSIDE RECORDS SUMMARY | 2024-10-01 16:59 | XMS_ITS | Encounter Summary ---
Author Organization [employer] ([place], [place], [place], [place]) Address [address] [place] [address] Care Team Providers Care Engineer Systems Name Role Phone Unavailable Primary Care Provider Unavailabl e Encounter Details Date Type Department Care Team (Late st Contact Info) Description 12/23/2020 Transcribed Document [facility] [place] [address] [place] [address] ProviderJaime MD [address] [place] [address] Social History Tobacco Use Types [...] Source : Measured Height Entry Format : [place] Height, Feet : 5 ft(Converted to: 152 cm, 60 Inch) Height, Inches : 9 Inch(Converted to: 0 ft 9 Inch, 22.86 cm) Clinical Height : 175.26 cm Weight Source : Standing scale Weight Entry Format : [place] Clinical Dosing Weight : 96.36 kg Weight, Pounds : 212 lb Body Surface Area (BSA) : 2.12 m2 Body Mass Index : 31.4 kg/m2 (HI) [place] Body Weight : 70 kg Georgie Boyce [...] Georgie Boyce RN - 12/23/2020 6:56 EDT [place] Suicide Severity Rating Scale (C-SSRS) CSSRS Past [...] #2 Relationship : . Primary Language : Syrian Preferred Communication Mode : Verbal Communication Barrier : None Shop Supervisor Needed : No Georgie Boyce RN - [...]
--- OUTSIDE RECORDS SUMMARY | 2024-10-01 16:59 | XMS_ITS | Encounter Summary ---
Author Organization [employer] ([place], [place], [place], [place]) Address [address] [place] [address] Care Team Providers Care Recreation Assistant Name Role Phone Unavailable Primary Care Provider Unavailabl e Encounter Details Date Type Department Care Team (Late st Contact Info) Description 12/23/2020 Transcribed Document [facility] [place] [facility] [place] [address] ProviderJaime MD [address] [place] [address] Social History Tobacco Use Types Packs/Day [...] - 12/23/2020 7:23 EDT Electronically signed by Lakesha, [facility] Conversion Vp Of Digital Marketing Cerner at 07/09/2022 10:51 AM CDT documented in this encounter Plan of Treatment Not on file documented as of this encounter Visit Diagnoses Not on filedocumented in this encounter
--- OUTSIDE RECORDS SUMMARY | 2024-10-01 16:59 | XMS_ITS | Clinical Summary ---
Author Organization [employer] ([place], [place], [place], [place]) Address [address] [place], [place] [id number] Care Team Providers Care Loop Tender Name Role Phone Unavailable Primary Care [...] Date Milton rded Speak language other than Guyanese at home Not on file 01/23/2024 Want [...] Plan of Treatment Not on file Insurance [facility] MEDICARE ADVANTAGE
--- OUTSIDE RECORDS SUMMARY | 2024-10-01 16:59 | XMS_ITS | Encounter Summary ---
Author Organization [employer] ([place], [place], [place], [place]) Address [address] [place] [address] Care Team Providers Care Disposal Man Name Role Phone Unavailable Primary Care Provider Unavailabl e Encounter Details Date Type Department Care Team (Late st Contact Info) Description 12/09/2020 Transcribed Document [facility] [place] [address] [place] [address] ProviderJaime MD [address] [place], [place] [phone] Social History Tobacco Use Types Packs/Day Years [...] : Standing scale Weight Entry Format : [place] Clinical Dosing Weight : 95.91 kg Weight, Pounds : 211 lb Body Surface Area (BSA) : 2.12 m2 Body Mass Index : 31.2 kg/m2 (HI) [place] Body Weight : 70 kg Michaela Alvarez Rn - 12/09/2020 16:02 EDT Height Source : Stated Height Entry Format : [place] Michaela Alvarez Rn - 12/09/2020 15:57 EDT [...] Michaela Alvarez Rn - 12/09/2020 16:02 EDT [place] Suicide Severity Rating Scale (C-SSRS) CSSRS Past [...] Obtained From : Patient Primary Language : Faroese Preferred Communication Mode : Verbal Communication Barrier : None Airline Stewardess Needed : No Michaela Alvarez Rn - 12/09/2020 16:02 EDT Yang Scale Yang Sensory Perception : No impairment Yang Moisture : Rarely moist Ayng Activity : Walks occasionally Yang Mobility : [...]
--- OUTSIDE RECORDS SUMMARY | 2024-10-01 16:59 | XMS_ITS | Encounter Summary ---
Author Organization [employer] ([place], [place], [place], [place]) Address [address] [place] [address] Care Team Providers Care Ruby On Rails Web Developer Name Role Phone Unavailable Primary Care Provider Unavailabl e Encounter Details Date Type Department Care Team (Late st Contact Info) Description 12/23/2020 Transcribed Document [facility] [place] [address] [place] [address] ProviderJaime MD [address] [place], [place] [phone] Social History Tobacco Use Types Packs/Day Years [...] III /Sex: 1950 Male Med Rec #: [id number] Physician: KAYLA ZIMMERMAN JR, JR, MD-ORT Financial #: [id number] Pt. Type: O Room/Bed: Admit/Disch: 12/23/20 04:16:00 - [place] [facility] [place] PostOp Case Times Entry 1 In PACU II 12/23/20 11:13:00 Ready for PACU II 12/23/20 13:49:00 Discharge Discharge from PACU 12/23/20 13:49:00 II Last Modified By: Rosa Montes RN 12/23/20 14:04:05 Finalized By: Rosa Montes, RN Document Signatures Signed By: Rosa Montes RN 12/23/20 14:04 Electronically signed by Lakesha [facility] Conversion Sammying Machine Operator Cerner at 07/09/2022 10:45 AM CDT documented in this encounter Plan of Treatment Not on file documented as of this encounter Visit Diagnoses Not on filedocumented in this encounter
--- NOTE | 2024-10-01 17:03 | PC.NURSE ---
zeroform, telfa, aditi wrap applied to lef tlower ext. per provider order. Slight bleeding was noted to site.
--- NOTE | 2024-10-01 17:20 | ED_ITS ---
<Statement entered by Griselda Moran DO - 10/01/24 20:15> I was consulted by the DIPAK, and we discussed the complexity of the problems being addressed. I approved the treatment and management plan for this patient's care in the emergency department, thus performing a substantive portion of the medical decision making. Griselda Moran DO Discharge Plan Disposition Patient Disposition: Home, Self-Care Condition: Good Prescriptions Prescriptions: No Action famotidine 40 mg tablet 40 mg PO HS Qty: 30 2RF Rx Instructions: take in combination with the omeprazole. Take the omeprazole in the morning and the famotidine at night lidocaine 5 % ointment See Rx Instructions .ROUTE .COMPLEX Qty: 70.88 2RF Dose Instruction: APPLY TOPICALLY TWICE DAILY NEEDED FOR PAIN Rx Instructions: APPLY TOPICALLY TWICE DAILY NEEDED FOR PAIN tramadol 50 mg tablet 50 mg PO TID Mounjaro 2.5 mg/0.5 mL pen injector 2.5 mg SQ WEEKLY Qty: 2.5 0RF Rx Instructions: for 4 weeks cyclobenzaprine 5 mg tablet 5 mg PO TID PRN colestipol 1 gram tablet 1 g PO BID Qty: 180 3RF atorvastatin 40 mg tablet 40 mg PO HS 30 Days Qty: 90 2RF metformin 1,000 mg tablet 1,000 mg PO BID Qty: 60 2RF ondansetron HCl 4 mg tablet 4 mg PO Q8H PRN (Reason: nausea and vomiting) 4 Days Qty: 30 0RF mupirocin 2 % ointment 1 applic topical TID Qty: 180 12RF clopidogrel 75 mg tablet 75 mg PO DAILY diclofenac sodium 1 % gel 4 g topical QIDP PRN (Reason: CHRONIC PAIN) Rx Instructions: apply to single, ankle, foot; for foot includes sole/toes/top of foot omeprazole 40 mg capsule,delayed release(DR/EC) 40 mg PO DAILY metoprolol succinate [Toprol XL] 25 mg tablet extended release 24 hr 25 mg PO DAILY Qty: 30 0RF folic acid 1 mg tablet 1 mg PO DAILY Qty: 90 0RF tamsulosin 0.4 mg capsule 0.4 mg PO DAILY Xarelto 15 mg tablet 15 mg PO QPMWITHMEAL clindamycin HCl 150 mg capsule 450 mg PO Q8H 7 Days Qty: 63 0RF Referrals Follow up/Referrals: Columba Rodríguez APRN [Primary Care Provider, Family Practice] - See instructions Activity Restrictions/Add. Instructions Additional Instructions/Restrictions: Please follow-up with your PCP in the upcoming days, please keep dressing on for the next 12 to 24 hours, change dressing if blood soaks through, continue take all medication as prescribed, and refer to your previous discharge instructions for wound care and care with your loop incision drain. Please return to the emergency department with any worsening signs or symptoms. 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 by RN): pt presents to ED with c/o bleeding from incision site from procedure performed today in ED. pt does take blood thinner. at bedside states that pt went through 2 dishtowels and 3 basins due to bleeding. History of Present Illness HPI narrative: 74-year-old male presents emerged part accompanied by his for uncontrolled bleeding of his left lower extremity. Patient was seen in the emergency department today on 10/01/2024 around noon for similar complaint, was noted to have an area of redness and focal area of fluctuance and tenderness, that began earlier today, he had no systemic signs and symptoms, POCUS bedside ultrasound did have small area of fluctuance, superficial, found not to be abscess or fluid collection, area was drained and found to be hematoma, was treated for possible infected hematoma with clindamycin, patient already had this dose today, a small vessel loop was placed and wound was said to heal by secondary intention. Patient states that he went home with his medication as well as his dressings, noted that patient had soaked through multiple dressings x 3, as well as to basins of blood . Patient admits to lightheadedness, but denies any nausea vomiting, fever chills chest pain shortness of breath, no urinary type otology, no abdominal pain, no diarrhea no constipation, does admit to pain around his left lower extremity. Initial triage vitals are unremarkable. Other past medical history is consistent with GERD, chronic venous insufficiency, chronic lymphedema, paroxysmal atrial fibrillation on anticoagulation therapy with Xarelto, T2DM, CAD, CATHLEEN, BPH, hyperlipidemia, iron deficient anemia, hypertension, Onset (ago): hour(s) Related Data Home Medications ?Medication ?Instructions ?Recorded ?Confirmed rivaroxaban 15 mg tablet (Xarelto) 15 mg PO QPMWITHMEA L 03/05/24 10/01/24 tamsulosin 0.4 mg capsule 0.4 mg PO DAILY 03/05/2411/18 tramadol 50 mg tablet 50 mg PO TID 03/15/24 clopidogrel 75 mg tablet 75 mg PO DAILY 07/24/2411/18 diclofenac sodium 1 % topical gel 4 g topical QIDP PRN CHRONIC PAIN 07/24/24 10/01/24 omeprazole 40 mg capsule,delayed 40 mg PO DAILY 10/01/24 release cyclobenzaprine 5 mg tablet 5 mg PO TID PRN 08/15/24 0 10/01/24 Previous Rx's ?Medication ?Instructions ?Recorded atorvastatin 40 mg tablet 40 mg PO HS 30 days #90 tabs 06/25/24 metoprolol succinate 25 mg 25 mg PO DAILY #30 tabs 11/18 tablet,extended release 24 hr (Toprol XL) folic acid 1 mg tablet 1 mg PO DAILY #90 tabs 08/05 metformin 1,000 mg tablet 1,000 mg PO BID #60 tabs ondansetron HCl 4 mg tablet 4 mg PO Q8H PRN nausea and 08/07/24 vomiting 4 days #30 tabs lidocaine 5 % topical ointment See Rx Instructions .Ro [place] 08/14/24 .COMPLEX #70.88 grams colestipol 1 gram tablet 1 g PO BID #180 tabs 5 mupirocin 2 % topical ointment 1 applic topical TID #1 80 applic 08/26/24 famotidine 40 mg tablet 40 mg PO HS #30 tabs 5 tirzepatide 2.5 mg/0.5 mL 2.5 mg (0.5 mL) SQ WEEKLY #2 .5 mL 09/10/24 subcutaneous pen injector (Mckayla) clindamycin HCl 150 mg capsule 450 mg (3 x 150 mg) PO Q8H 7 days 10/01/24 #63 caps Allergies Allergy/AdvReac Type Severity Reaction Status Date / Time Penicillins (PENICILLINS) Allergy Unknown I-ITCHING Verified 10/01/24 11:08 [facility] Disclaimer: The information contained in this section may have been updated after the patient was seen, as this information can be updated by other users. Medical History Acute nontraumatic kidney injury Hypomagnesemia Elevated brain natriuretic peptide (BNP) level Dyspnea Elevated troponin Chronic GERD Orthostatic hypotension Dizziness Atypical angina Cellulitis of right leg Vocal cord edema Ringing in right ear Chronic hoarseness Globus sensation Vertigo Recurrent vertigo upon turning head toward the left associated with tinnitus. Diverticulitis IBS (irritable bowel syndrome) Latent tuberculosis Rheumatoid arthritis Viral gastroenteritis Laceration of face Patient is not currently bleeding NSTEMI (non-ST elevated myocardial infarction) Atrial flutter On Xarelto Asbestos exposure Tachycardia Abnormal ECG Preoperative testing Episodic confusion He was referred to epilepsy program, EMU but has decided to cancel the appointment Allergic rhinitis Dyspnea on exertion Latent tuberculosis by blood test Seen by pulmonology at [facility] and prescribed INH, RFP, B6 but he never took the medicine as prescribed Restrictive lung disease Left sided abdominal pain Left shoulder strain Left groin pain Claustrophobia Chronic cough Cognitive complaints 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, word finding difficulty Edema of both lower extremities Decreased pedal pulses Non-healing ulcer of foot Right 3rd distal tip DFU Decreased ROM of right shoulder Right shoulder pain Right shoulder injury Pes planus of both feet Skin lesion Impotence Low back pain Left against medical advice Memory loss Chronic SI joint pain Radiculopathy Neuropathic pain Leg pain, posterior Kidney stone Ingrown toenail of right foot Pre-ulcerative calluses Splinter of toe of left foot Pain of left great toe Cellulitis of great toe of right foot Acute bacterial bronchitis Incurved toenail Diabetes mellitus HA1c- 7.3% 06/06/24 Onychomycosis Pain in both feet Callus of foot Diabetic foot ulcer Acute febrile illness SIRS (systemic inflammatory response syndrome) Left against medical advice Lower extremity edema Epistaxis Encounter for pre-operative cardiovascular clearance Sepsis Urinary incontinence Weakness Cellulitis, leg Obesity (BMI 30-39.9) Acute delirium Cellulitis Severe sepsis SIRS (systemic inflammatory response syndrome) Physical deconditioning Bacterial pneumonia Hypokalemia Bronchitis due to COVID-19 virus Pneumonia due to COVID-19 virus COVID-19 virus infection Exposure to COVID-19 virus Viral syndrome Acute bronchitis Hematuria Kidney stone on right side Multiple renal cysts Cough Diastolic dysfunction Mental status change resolved HTN (hypertension) Dyspnea SOB (shortness of breath) HHD (hypertensive heart disease) Pre-op evaluation Microalbuminuria Enlarged prostate History of IBS Diabetes Acquired lymphedema Surgical History History of cardiac cath History of total right knee replacement History of rotator cuff surgery History of coronary artery stent placement History of cholecystectomy Hx of total knee arthroplasty Family History Other Cancer Cerebral palsy Dementia Diabetes Social History Smoking Status: Former smoker alcohol intake: never counseling provided: none substance use type: denies use current occupational status: employed and retired Travel in the last 8 weeks?: None household members: spouse housing: house caffeine: Yes Have you lived/traveled outside [place] in past 30 days?: No Contact w/someone who lives/traveled outside [place] past 30 days?: No Exposure to someone with infectious disease in past 14 days?: No Do you have a fever (greater than 100.4 F or 38 C)?: No Have you tested positive for COVID-19?: No Exposed to someone with COVID-19 in past 14 days?: No Do you have a sore throat?: No Do you have a cough?: No Do you have any weakness?: No Do you have any diarrhea?: No Are you experiencing any unusual bleeding?: No Do you have any muscle aches/pain?: No Do you have any abdominal pain?: No Are you experiencing loss of taste or smell?: No Other Medical History Have you received the Flu Vaccine for this season: No Have you received the Pneumonia Vaccine: Yes ROS Obtained: Yes All systems reviewed & no additional complaints except as documented Physical Exam General General appearance: alert and in no apparent distress Head Head exam: atraumatic and normocephalic Eye Eye exam: Present PERRL and EOMI ENT ENT exam: Present mucous membranes moist Neck Neck exam: Present normal inspection Chest Chest inspection: Present normal inspection and symmetric chest wall rise Respiratory Respiratory exam: Present normal lung sounds bilaterally; Absent respiratory distress Cardiovascular Cardiovascular exam: Present regular rate and normal rhythm Abdominal Exam Abdominal exam: Present soft; Absent tenderness Extremities Exam Extremities exam: Present normal inspection Neurological Exam Neurological exam: Present alert and oriented X3 Psychiatric Psychiatric exam: Present normal affect Skin Skin exam: Present warm, dry and other (Active brisk bleeding, that is not arterial, around his left lower extremity, from site of hematoma/incision that was performed earlier today, some ecchymosis around the area., No erythema, no hot to touch sensation, otherwise neurovascular intact. There is lymphedema present. Bilateral lower ext) Medical Decision Making Medical Records Medical records reviewed: Yes I reviewed the patient's medical records. Screening: Per USPSTF and CDC recommendations, given the prevalence of disease in our region, it is our hospital?s policy to screen for HIV and viral Hepatitis for all patients aged 18 and over and those with ongoing risk factors. Jevon Inquiry Pt receiving controlled substance: No Jevon was queried for this patient: No Vital Signs: 10/01/24 16:56 10/01/24 16:57 10/01/24 17:00 Temperature 97.7 F Temperature Source Oral Pulse Rate 78 83 Pulse Rate [Left Radial] 82 Respiratory Rate 15 Blood Pressure 112/72 109/69 L Blood Pressure [Right Arm] 112/72 Blood Pressure Mean Blood Pressure Mean [Right Arm] 85 Blood Pressure Source [Right Arm] Automatic Cuff Blood Pressure Position [Right Arm] Supine 02 Sat by Pulse Oximetry 100 98 100 Oxygen Delivery Method Room Air 10/01/24 18:00 10/01/24 18:30 10/01/24 18:42 Temperature Temperature Source Pulse Rate 68 68 68 Pulse Rate [Left Radial] Respiratory Rate Blood Pressure 94/64 L 105/61 L 105/61 L Blood Pressure [Right Arm] Blood Pressure Mean 73 77 Blood Pressure Mean [Right Arm] Blood Pressure Source [Right Arm] Blood Pressure Position [Right Arm] 02 Sat by Pulse Oximetry 99 98 100 Oxygen Delivery Method Lab Data Lab results reviewed: Yes I reviewed the patient's lab results. Lab Results 10/01/24 17:29: WBC 6.8, RBC 4.04 L, Hgb 10.6 L, Hct 32.6 L, MCV 80.7, MCH 26.2 L, MCHC 32.5, RDW 14.6, Plt Count 393, MPV 10.2, Neut % (Auto) 71.1, Lymph % (Auto) 13.5, [place] % (Auto) 9.9 H, Eos % (Auto) 4.9, Baso % (Auto) 0.3, Neut # (Auto) 4.8, Lymph # (Auto) 0.9, [place] # (Auto) 0.7, Eos # (Auto) 0.3, Baso # (Auto) 0.0, PT 17.8 H, INR 1.67 H, APTT 29.6, Sodium 135 L, Potassium 4.4, C hloride 97 L, Carbon Dioxide 21 L, Anion Gap 21.4 H, BUN 24 H, Creatinine 1.60 H , Estimated Creat Clear 53, Estimated GFR 43 L, Est GFR ( Amer) 52 L, G lucose 183 H, Calcium 9.2, Total Bilirubin 1.4 H, AST 36, ALT 22, Alkaline Phosphatase 99, Total Protein 7.1, Albumin 4.1, Globulin 3.0, Albumin/Globulin Ratio 1.4 10/01/24 17:29 10/01/24 17:29 Orders (Tests/Meds): ED MEDICATIONS Discontinued Medications Generic Name Dose Route Start Last Admin Trade Name Maximoq PRN Reason Stop Dose Admin Hydrocodone Bitart/Acetaminophen 1 tab 10/01/24 17:11 10/01/24 17:28 Hydrocodone/Apap 5/325 Mg Tablet PO 10/01/24 17:12 1 tab ONCE ONE Administration ORDERS Category Date Time Status Complete Blood Count Auto Diff Stat Lab 10/01/24 17:29 Completed Comprehensive Metabolic Panel Stat Lab 10/01/24 17:29 Completed PT INR [Prothrombin Time INR] Stat Lab 10/01/24 17:29 Completed PTT [Activated Partial Thrombo Time] Stat Lab 10/01/24 17:29 Completed Medical Decision Narrative: 74-year-old male presents the emergency department with active bleeding of left lower extremity hematoma, differential diagnosis to include but not limited to, acute blood loss anemia, hematoma, incisional bleeding, incisional pain among others. I discussed patient case with the attending physician Dr. Moran Will obtain repeat blood work to assess the patient's hemoglobin hematocrit, obtain CBC CMP coagulation studies and will apply pressure dressing to the patient's left lower extremity, will give 5 mg p.o. [place] for pain. CBC is notable for erythrocyte opinion at 4.04, hemoglobin is 10.6, hematocrit is decreased 32.6 PTT is elevated at 17.8, INR is elevated at 1.67. CMP is notable for acute kidney injury with a creatinine of 1.6, BUN is elevated at 24, GFR is 43, otherwise unremarkable CMP. Reexamination the patient at approximately 6:45 PM, patient has remained hemodynamically stable without his time in the emergency department, discussed all results with him, will continue to keep pressure dressing applied to the patient's leg, patient will change dressing within 12 to 24 hours, pulses are intact after dressing placement, bleeding has subsided, recommend wound care precautions as previously discussed with him, continue take all medication as prescribed. Patient was given strict ED return precautions. Patient voiced understanding and agreed with current treatment plan/discharge plan. Critical Care Critical Care Time Critical Care Time: No
[2024-10-01] MEDS: HYDROCODONE/APAP 5/325 MG TABLET 1 TAB PO (17:28)
[2024-10-01 17:49] LABS: Hematocrit 32.6 % (42.0-52.0); Hemoglobin 10.6 g/dL (14.1-18.0); Immature Granulocytes % 0.3 %; Mean Corpuscular HGB Conc 32.5 g/dL (31.8-35.4); Mean Corpuscular Hemoglobin 26.2 pg (27.0-31.2); Mean Corpuscular Volume 80.7 fl (80-94); Nucleated Red Blood Cells % 0 %; Platelet Count 393 K/mm3 (142-424); Red Blood Count 4.04 M/mm3 (4.60-6.20); Red Cell Distribution Width-SD 42.9 fL; White Blood Count 6.8 K/mm3 (4.8-10.8)
[2024-10-01 17:52] LABS: Alanine Aminotransferase 22 U/L (12-78); Albumin Level 4.1 g/dl (3.5-5.0); Albumin/Globulin Ratio 1.4 (1.1-1.8); Alkaline Phosphatase 99 U/L (38-126); Anion Gap 21.4 mEq/L (5-15); Aspartate Amino Transferase 36 U/L (17-59); Bilirubin,Total 1.4 mg/dl (0.2-1.3); Blood Urea Nitrogen 24 mg/dl (9-20); Calcium 9.2 mg/dl (8.4-10.2); Carbon Dioxide 21 mmol/L (22.0-30.0); Chloride 97 mmol/L (98-107); Creatinine Clearance Estimated 53 mL/min (50-200); Creatinine,Serum 1.60 mg/dl (0.66-1.25); Estimated Glomerular Filt Rate 43 ml/min (>60); GFR (African American) 52 ML/MIN (>60); Globulin 3.0 g/dL (1.3-3.2); Glucose 183 mg/dl (74-100); Potassium 4.4 mmoL/L (3.5-5.1); Sodium 135 mmol/L (136-145); Total Protein,Serum 7.1 g/dl (6.3-8.2)
[2024-10-01 17:56] LABS: INR 1.67 (0.9-1.1); Prothrombin Time 17.8 seconds (10.1-12.5)
[2024-10-01 18:08] LABS: Activated Partial Thrombo Time 29.6 seconds (22.8-30.6)
--- NOTE | 2024-10-01 19:27 | ED_ITS ---
<Statement entered by Griselda Moran DO - 10/01/24 20:16> I was consulted by the DIPAK, and we discussed the complexity of the problems being addressed. I approved the treatment and management plan for this patient's care in the emergency department, thus performing a substantive portion of the medical decision making. Griselda Moran DO Discharge Plan Disposition Patient Disposition: Home, Self-Care Condition: Good Prescriptions Prescriptions: No Action famotidine 40 mg tablet 40 mg PO HS Qty: 30 2RF Rx Instructions: take in combination with the omeprazole. Take the omeprazole in the morning and the famotidine at night lidocaine 5 % ointment See Rx Instructions .ROUTE .COMPLEX Qty: 70.88 2RF Dose Instruction: APPLY TOPICALLY TWICE DAILY NEEDED FOR PAIN Rx Instructions: APPLY TOPICALLY TWICE DAILY NEEDED FOR PAIN tramadol 50 mg tablet 50 mg PO TID Mounjaro 2.5 mg/0.5 mL pen injector 2.5 mg SQ WEEKLY Qty: 2.5 0RF Rx Instructions: for 4 weeks cyclobenzaprine 5 mg tablet 5 mg PO TID PRN colestipol 1 gram tablet 1 g PO BID Qty: 180 3RF atorvastatin 40 mg tablet 40 mg PO HS 30 Days Qty: 90 2RF metformin 1,000 mg tablet 1,000 mg PO BID Qty: 60 2RF ondansetron HCl 4 mg tablet 4 mg PO Q8H PRN (Reason: nausea and vomiting) 4 Days Qty: 30 0RF mupirocin 2 % ointment 1 applic topical TID Qty: 180 12RF clopidogrel 75 mg tablet 75 mg PO DAILY diclofenac sodium 1 % gel 4 g topical QIDP PRN (Reason: CHRONIC PAIN) Rx Instructions: apply to single, ankle, foot; for foot includes sole/toes/top of foot omeprazole 40 mg capsule,delayed release(DR/EC) 40 mg PO DAILY metoprolol succinate [Toprol XL] 25 mg tablet extended release 24 hr 25 mg PO DAILY Qty: 30 0RF folic acid 1 mg tablet 1 mg PO DAILY Qty: 90 0RF tamsulosin 0.4 mg capsule 0.4 mg PO DAILY Xarelto 15 mg tablet 15 mg PO QPMWITHMEAL clindamycin HCl 150 mg capsule 450 mg PO Q8H 7 Days Qty: 63 0RF Referrals Follow up/Referrals: Columba Rodríguez APRN [Primary Care Provider, Family Practice] - See instructions Activity Restrictions/Add. Instructions Additional Instructions/Restrictions: Please follow-up with your PCP in the upcoming days, please keep dressing on for the next 12 to 24 hours, change dressing if blood soaks through, continue take all medication as prescribed, and refer to your previous discharge instructions for wound care and care with your loop incision drain. Please return to the emergency department with any worsening signs or symptoms. 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 by RN): pt presents to ED with c/o bleeding from incision site from procedure performed today in ED. pt does take blood thinner. at bedside states that pt went through 2 dishtowels and 3 basins due to bleeding. History of Present Illness Onset (ago): hour(s) Related Data Home Medications ?Medication ?Instructions ?Recorded ?Confirmed rivaroxaban 15 mg tablet (Xarelto) 15 mg PO QPMWITHMEA L 03/05/24 10/01/24 tamsulosin 0.4 mg capsule 0.4 mg PO DAILY 03/05/2411/18 tramadol 50 mg tablet 50 mg PO TID 03/15/24 clopidogrel 75 mg tablet 75 mg PO DAILY 07/24/2411/18 diclofenac sodium 1 % topical gel 4 g topical QIDP PRN CHRONIC PAIN 07/24/24 10/01/24 omeprazole 40 mg capsule,delayed 40 mg PO DAILY 10/01/24 release cyclobenzaprine 5 mg tablet 5 mg PO TID PRN 08/15/24 0 10/01/24 Previous Rx's ?Medication ?Instructions ?Recorded atorvastatin 40 mg tablet 40 mg PO HS 30 days #90 tabs 06/25/24 metoprolol succinate 25 mg 25 mg PO DAILY #30 tabs 11/18 tablet,extended release 24 hr (Toprol XL) folic acid 1 mg tablet 1 mg PO DAILY #90 tabs 08/05 metformin 1,000 mg tablet 1,000 mg PO BID #60 tabs ondansetron HCl 4 mg tablet 4 mg PO Q8H PRN nausea and 08/07/24 vomiting 4 days #30 tabs lidocaine 5 % topical ointment See Rx Instructions .Ro knik 08/14/24 .COMPLEX #70.88 grams colestipol 1 gram tablet 1 g PO BID #180 tabs 5 mupirocin 2 % topical ointment 1 applic topical TID #1 80 applic 08/26/24 famotidine 40 mg tablet 40 mg PO HS #30 tabs 5 tirzepatide 2.5 mg/0.5 mL 2.5 mg (0.5 mL) SQ WEEKLY #2 .5 mL 09/10/24 subcutaneous pen injector (Mounjaro) clindamycin HCl 150 mg capsule 450 mg (3 x 150 mg) PO Q8H 7 days 10/01/24 #63 caps Allergies Allergy/AdvReac Type Severity Reaction Status Date / Time Penicillins (PENICILLINS) Allergy Unknown I-ITCHING Verified 10/01/24 11:08 [facility] Disclaimer: The information contained in this section may have been updated after the patient was seen, as this information can be updated by other users. Medical History Acute nontraumatic kidney injury Hypomagnesemia Elevated brain natriuretic peptide (BNP) level Dyspnea Elevated troponin Chronic GERD Orthostatic hypotension Dizziness Atypical angina Cellulitis of right leg Vocal cord edema Ringing in right ear Chronic hoarseness Globus sensation Vertigo Recurrent vertigo upon turning head toward the left associated with tinnitus. Diverticulitis IBS (irritable bowel syndrome) Latent tuberculosis Rheumatoid arthritis Viral gastroenteritis Laceration of face Patient is not currently bleeding NSTEMI (non-ST elevated myocardial infarction) Atrial flutter On Xarelto Asbestos exposure Tachycardia Abnormal ECG Preoperative testing Episodic confusion He was referred to epilepsy program, EMU but has decided to cancel the appointment Allergic rhinitis Dyspnea on exertion Latent tuberculosis by blood test Seen by pulmonology at [facility] and prescribed INH, RFP, B6 but he never took the medicine as prescribed Restrictive lung disease Left sided abdominal pain Left shoulder strain Left groin pain Claustrophobia Chronic cough Cognitive complaints 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, word finding difficulty Edema of both lower extremities Decreased pedal pulses Non-healing ulcer of foot Right 3rd distal tip DFU Decreased ROM of right shoulder Right shoulder pain Right shoulder injury Pes planus of both feet Skin lesion Impotence Low back pain Left against medical advice Memory loss Chronic SI joint pain Radiculopathy Neuropathic pain Leg pain, posterior Kidney stone Ingrown toenail of right foot Pre-ulcerative calluses Splinter of toe of left foot Pain of left great toe Cellulitis of great toe of right foot Acute bacterial bronchitis Incurved toenail Diabetes mellitus HA1c- 7.3% 06/06/24 Onychomycosis Pain in both feet Callus of foot Diabetic foot ulcer Acute febrile illness SIRS (systemic inflammatory response syndrome) Left against medical advice Lower extremity edema Epistaxis Encounter for pre-operative cardiovascular clearance Sepsis Urinary incontinence Weakness Cellulitis, leg Obesity (BMI 30-39.9) Acute delirium Cellulitis Severe sepsis SIRS (systemic inflammatory response syndrome) Physical deconditioning Bacterial pneumonia Hypokalemia Bronchitis due to COVID-19 virus Pneumonia due to COVID-19 virus COVID-19 virus infection Exposure to COVID-19 virus Viral syndrome Acute bronchitis Hematuria Kidney stone on right side Multiple renal cysts Cough Diastolic dysfunction Mental status change resolved HTN (hypertension) Dyspnea SOB (shortness of breath) HHD (hypertensive heart disease) Pre-op evaluation Microalbuminuria Enlarged prostate History of IBS Diabetes Acquired lymphedema Surgical History History of cardiac cath History of total right knee replacement History of rotator cuff surgery History of coronary artery stent placement History of cholecystectomy Hx of total knee arthroplasty Family History Other Cancer Cerebral palsy Dementia Diabetes Social History Smoking Status: Former smoker alcohol intake: never counseling provided: none substance use type: denies use current occupational status: employed and retired Travel in the last 8 weeks?: None household members: spouse housing: house caffeine: Yes Have you lived/traveled outside US in past 30 days?: No Contact w/someone who lives/traveled outside US past 30 days?: No Exposure to someone with infectious disease in past 14 days?: No Do you have a fever (greater than 100.4 F or 38 C)?: No Have you tested positive for COVID-19?: No Exposed to someone with COVID-19 in past 14 days?: No Do you have a sore throat?: No Do you have a cough?: No Do you have any weakness?: No Do you have any diarrhea?: No Are you experiencing any unusual bleeding?: No Do you have any muscle aches/pain?: No Do you have any abdominal pain?: No Are you experiencing loss of taste or smell?: No Other Medical History Have you received the Flu Vaccine for this season: No Have you received the Pneumonia Vaccine: Yes ROS Obtained: Yes All systems reviewed & no additional complaints except as documented Physical Exam General General appearance: alert and in no apparent distress Respiratory Respiratory exam: Present normal lung sounds bilaterally Cardiovascular Cardiovascular exam: Present regular rate Neurological Exam Neurological exam: Present alert Medical Decision Making Medical Records Screening: Per USPSTF and CDC recommendations, given the prevalence of disease in our region, it is our hospital?s policy to screen for HIV and viral Hepatitis for all patients aged 18 and over and those with ongoing risk factors. Jevon Inquiry Pt receiving controlled substance: No Vital Signs: 10/01/24 16:56 10/01/24 16:57 10/01/24 17:00 Temperature 97.7 F Temperature Source Oral Pulse Rate 78 83 Pulse Rate [Left Radial] 82 Respiratory Rate 15 Blood Pressure 112/72 109/69 L Blood Pressure [Right Arm] 112/72 Blood Pressure Mean Blood Pressure Mean [Right Arm] 85 Blood Pressure Source [Right Arm] Automatic Cuff Blood Pressure Position [Right Arm] Supine 02 Sat by Pulse Oximetry 100 98 100 Oxygen Delivery Method Room Air 10/01/24 18:00 10/01/24 18:30 10/01/24 18:42 Temperature Temperature Source Pulse Rate 68 68 68 Pulse Rate [Left Radial] Respiratory Rate Blood Pressure 94/64 L 105/61 L 105/61 L Blood Pressure [Right Arm] Blood Pressure Mean 73 77 Blood Pressure Mean [Right Arm] Blood Pressure Source [Right Arm] Blood Pressure Position [Right Arm] 02 Sat by Pulse Oximetry 99 98 100 Oxygen Delivery Method Lab Data Lab Results 10/01/24 17:29: WBC 6.8, RBC 4.04 L, Hgb 10.6 L, Hct 32.6 L, MCV 80.7, MCH 26.2 L, MCHC 32.5, RDW 14.6, Plt Count 393, MPV 10.2, Neut % (Auto) 71.1, Lymph % (Auto) 13.5, Hand % (Auto) 9.9 H, Eos % (Auto) 4.9, Baso % (Auto) 0.3, Neut # (Auto) 4.8, Lymph # (Auto) 0.9, Hand # (Auto) 0.7, Eos # (Auto) 0.3, Baso # (Auto) 0.0, PT 17.8 H, INR 1.67 H, APTT 29.6, Sodium 135 L, Potassium 4.4, C hloride 97 L, Carbon Dioxide 21 L, Anion Gap 21.4 H, BUN 24 H, Creatinine 1.60 H , Estimated Creat Clear 53, Estimated GFR 43 L, Est GFR ( Amer) 52 L, G lucose 183 H, Calcium 9.2, Total Bilirubin 1.4 H, AST 36, ALT 22, Alkaline Phosphatase 99, Total Protein 7.1, Albumin 4.1, Globulin 3.0, Albumin/Globulin Ratio 1.4 10/01/24 17:29 10/01/24 17:29 Orders (Tests/Meds): ED MEDICATIONS Discontinued Medications Generic Name Dose Route Start Last Admin Trade Name Freq PRN Reason Stop Dose Admin Hydrocodone Bitart/Acetaminophen 1 tab 10/01/24 17:11 10/01/24 17:28 Hydrocodone/Apap 5/325 Mg Tablet PO 10/01/24 17:12 1 tab ONCE ONE Administration ORDERS Category Date Time Status Complete Blood Count Auto Diff Stat Lab 10/01/24 17:29 Completed Comprehensive Metabolic Panel Stat Lab 10/01/24 17:29 Completed PT INR [Prothrombin Time INR] Stat Lab 10/01/24 17:29 Completed PTT [Activated Partial Thrombo Time] Stat Lab 10/01/24 17:29 Completed Medical Decision Narrative: I was called to the bedside prior to discharge, patient did have some bleeding through his dressing, Tylenol the attending physician went to the bedside, will remove the patient's loop incisional drain, this was removed without incident, and will apply Surgicel, and pressure dressing with Papo bandage. Patient was given strict ED return precautions. Patient will follow-up with PCP and other providers as directed. Patient was understanding and agreed with current treatment plan/discharge plan. Critical Care Critical Care Time Critical Care Time: No
--- NOTE | 2024-10-01 19:29 | PC.NURSE ---
Provider removes loop suture. Surgiseal applied and new aditi wrap.
--- NOTE | 2024-10-01 19:42 | PC.NURSE ---
Spoke with , will be here in 15.
== END 2024-10-01 19:52 | disposition home or self-care (01) ==
PROVIDERS: Physician Assistant; Emergency Provider Emergency Medicine; PCP Family Medicine
DX: L76.22 Postprocedural hemorrhage of skin and subcutaneous tissue following other procedure (principal); S80.12XA Contusion of left lower leg, initial encounter; Z79.01 Long term (current) use of anticoagulants; Z86.79 Personal history of other diseases of the circulatory system
CPT/HCPCS: 80053; 85025; 85610; 85730; 99283

== ENCOUNTER 2024-10-02 09:01 | Outpatient (CLI) | payer MEDICARE, SELFPAY ==
[2024-10-02 10:42] LABS: Hematocrit 29.9 % (42.0-52.0); Hemoglobin 9.7 g/dL (14.1-18.0); Immature Granulocytes % 0.5 %; Mean Corpuscular HGB Conc 32.4 g/dL (31.8-35.4); Mean Corpuscular Hemoglobin 26.0 pg (27.0-31.2); Mean Corpuscular Volume 80.2 fl (80-94); Nucleated Red Blood Cells % 0 %; Platelet Count 367 K/mm3 (142-424); Red Blood Count 3.73 M/mm3 (4.60-6.20); Red Cell Distribution Width-SD 42.3 fL; White Blood Count 6.4 K/mm3 (4.8-10.8)
[2024-10-02 11:27] LABS: Albumin Level 3.8 g/dl (3.5-5.0); Chloride 96 mmol/L (98-107)
[2024-10-02 11:28] LABS: Potassium 4.2 mmoL/L (3.5-5.1); Sodium 130 mmol/L (136-145)
[2024-10-02 11:30] LABS: Alanine Aminotransferase 19 U/L (12-78); Aspartate Amino Transferase 28 U/L (17-59); Blood Urea Nitrogen 29 mg/dl (9-20); Creatinine,Serum 1.70 mg/dl (0.66-1.25); Estimated Glomerular Filt Rate 40 ml/min (>60); GFR (African American) 48 ML/MIN (>60)
[2024-10-02 11:31] LABS: Albumin/Globulin Ratio 1.5 (1.1-1.8); Alkaline Phosphatase 104 U/L (38-126); Anion Gap 17.2 mEq/L (5-15); Bilirubin,Total 1.5 mg/dl (0.2-1.3); Calcium 8.9 mg/dl (8.4-10.2); Carbon Dioxide 21 mmol/L (22.0-30.0); Globulin 2.5 g/dL (1.3-3.2); Glucose 238 mg/dl (74-100); Iron 50 ug/dL (49-181); Total Protein,Serum 6.3 g/dl (6.3-8.2)
[2024-10-02 11:40] LABS: Total Iron Binding Capacity 367 ug/dL (261-462)
[2024-10-02 12:08] LABS: Ferritin 70.0 ng/ml (17.9-464)
--- OUTSIDE RECORDS SUMMARY | 2024-10-04 09:03 | XMS_ITS | Clinical Summary ---
Author Organization [facility] Address [address] [place] [address] Phone Care Team Providers Care Case Picker Name Role Phone Jer Zhang MD [ ] Conditions or Problems Problem Name Problem Code Onset Date Status Entry Date Provider Comment Standard Description Annotate Diarrhea, chronic 478972874 (SNOMED CT) 12/19 Active 12/19 Jer Zhang MD Chronic diarrhea Lymphedema 825961765 (SNOMED CT) 12/19 Active 12/19 Jer Zhang MD Lymphedema Latent tuberculosis 002403129 (SNOMED CT) 12/16 Active 12/16 Imelda Hollis Nonspecific tuberculin test reaction + 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 R76.12 (ICD-10-CM ) 09/18 Active 09/18 Imelda Bunny 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 gamma interferon antigen response without active tuberculosis Edema, limb 622869366 (SNOMED CT) 09/21 Resolved 09/21 Imelda Hollis Edema of extremity Right Leg Edema, limb 103636766 (SNOMED CT) 09/21 Removed 09/21 Jer Zhang [...] DAY 2 THROUGH DAY 5 12/19 azithromycin 00135351671 Cinda Rolando BENZONATATE 100 MG CAPS Take 1 capsule by mouth three times a day as needed 12/19 BENZONATATE Cinda Fu TRIAZOLAM 0.25 MG TABS Take 1 tablet by mouth 12/19 triazolam 23572845252 Cinda Fu LORAZEPAM 1 MG TABS Take 1 tablet 12/19 lorazepam 39089580596 Cinda Fu LEVOFLOXACIN 750 MG TABS Take 1 tablet by mouth once a day 12/19 levofloxacin 96384926825 Cinda Rolando LOSARTAN POTASSIUM 50 MG TABS one tab oral daily 12/19 losartan 59929325971 Cinda Rolando NYSTATIN 196922 UNIT/GM OINT Apply to skin once a day 12/19 nystatin 90469589165 Cinda Fu RIFAMPIN 300 MG CAPS Take 2 by mouth once a day 12/19 rifampin 63945180439 Cinda Rolando CYCLOBENZAPRINE HCL 5 MG TABS one tab oral daily 12/19 cyclobenzaprine 73105980926 Cinda Fu ISONIAZID 300 MG TABS Take 1 tablet by mouth once a day 12/19 isoniazid 56812215256 Cinda PROMETHAZINE-CODEI NE 6.25-10 MG/5ML SYRP Take 5 ml by mouth twice a day 12/19 promethazine-code ine 98763451612 Cinda Fu DICYCLOMINE HCL 10 MG CAPS 1 cap oral twice a day 12/19 dicyclomine 12166553203 Cinda Fu CLOPIDOGREL BISULFATE 75 MG TABS Take 1 tablet by mouth once a day 12/19 clopidogrel 97674392000 Cinda Marshall HYDROCOD POLST-CPM POLST ER 10-8 MG/5ML ORAL SUSPENSION EXTENDED RELEASE Take 1 teaspoon by mouth twice a day 12/19 HYDROCOD POLST-CPM POLST ER 10-8 MG/5ML ORAL SUSPENSION EXTENDED RELEASE Cinda Marshall PLAVIX 75 MG TABS once a day clopidogrel 2185053 7190 Cinda Marshall TRIAZOLAM 0.25 MG TABS Take 1 tablet by mouth 09/24 triazolam 15383404217 Melvin Hartman ISONIAZID 300 MG TABS Take 1 tablet by mouth once a day 12/19 isoniazid 58422370339 Melvin Hartman CLOPIDOGREL BISULFATE 75 MG TABS Take 1 tablet by mouth once a day 12/19 clopidogrel 67199189027 Melvin Hartman LORAZEPAM 1 MG TABS Take 1 tablet 12/19 lorazepam 43462587247 Melvin Hartman NYSTATIN 582511 UNIT/GM OINT Apply to skin once a day 12/19 nystatin 56234319125 Melvin Hartman HYDROCOD POLST-CPM POLST ER 10-8 MG/5ML ORAL SUSPENSION EXTENDED RELEASE Take 1 teaspoon by mouth twice a day 12/19 HYDROCOD POLST-CPM POLST ER 10-8 MG/5ML ORAL SUSPENSION EXTENDED RELEASE Melvin Hartman AZITHROMYCIN 250 MG TABS TAKE 2 TABLETS BY MOUTH ON DAY 1 AND THEN TAKE 1 TABLET BY MOUTH ONCE A DAY ON DAY 2 THROUGH DAY 5 09/24 azithromycin 63458549594 Melvin Hartman RIFAMPIN 300 MG CAPS Take 2 by mouth once a day 09/24 rifampin 76519743397 Melvin Hartman PROMETHAZINE-CODEI NE 6.25-10 MG/5ML SYRP Take 5 ml by mouth twice a day 05/09 promethazine-code ine 99681494192 Melvin Hartman BENZONATATE 100 MG CAPS Take 1 capsule by mouth three times a day as needed 12/19 BENZONATATE Melvin Hartman LEVOFLOXACIN 750 MG TABS Take 1 tablet by mouth once a day 12/19 levofloxacin 40155728519 Melvin Hartman DICYCLOMINE HCL 10 MG CAPS 1 cap oral twice a day 09/24 dicyclomine 94146977459 Melvin Hartman SIMVASTATIN 20 MG TABS one tab oral daily simvastatin 31184968493 Melvin Hartman LOSARTAN POTASSIUM 50 MG TABS one tab oral daily 09/24 losartan 75269427828 Melvin Hartman CYCLOBENZAPRINE HCL 5 MG TABS one tab oral daily 09/24 cyclobenzaprine 49568777397 Melvin Hartman TRAMADOL HCL 50 MG TABS one tab every 6 hours prn tramadol 02419603097 Melvin Hartman METFORMIN HCL 500 MG TABS one tab oral twice a day metformin 48345990190 Melvin Hartman RIFAMPIN 300 MG CAPS take 2 po daily 09/24 RIFAMPIN 08399284088 Jer Zhang MD ISONIAZID 300 MG TABS Take 1 tablet by mouth daily 12/16 ISONIAZID 27027307358 Jer Zhang MD AZITHROMYCIN 250 MG TABS TAKE 2 TABLETS BY MOUTH ON DAY 1 AND THEN TAKE 1 TABLET BY MOUTH ONCE A DAY ON DAY 2 THROUGH DAY 5 09/24 AZITHROMYCIN 79835929647 Gerald Ocasio BENZONATATE 100 MG CAPS TAKE 1 CAPSULE BY MOUTH THREE TIMES DAILY FOR 10 DAYS NEEDED FOR COUGH 12/16 BENZONATATE 10863633699 Gerald Ocasio PROMETHAZINE-CODEI NE 6.25-10 MG/5ML SOLN TAKE 5 ML BY MOUTH TWICE DAILY 12/16 PROMETHAZINE-CODE INE 41838353803 Gerald Ocasio LEVOFLOXACIN 750 MG TABS TAKE 1 TABLET BY MOUTH ONCE DAILY FOR 8 DAYS 12/16 LEVOFLOXACIN 60950649338 Gerald Ocasio CLOPIDOGREL BISULFATE 75 MG TABS TAKE 1 TABLET BY MOUTH ONCE DAILY 12/16 CLOPIDOGREL BISULFATE 71136513895 Gerald D NYSTATIN 988546 UNIT/GM OINT APPLY OINTMENT TOPICALLY ONCE DAILY 12/16 NYSTATIN 04927979116 Gerald D HYDROCOD POLST-CPM POLST ER 10-8 MG/5ML ORAL SUSPENSION EXTENDED RELEASE TAKE 1 TEASPOONFUL (5 ML) BY MOUTH TWICE DAILY MAY CAUSE DROWSINESS 12/16 HYDROCOD POLST-CHLORPHEN POLST 45360438729 Gerald D TRIAZOLAM 0.25 MG TABS TAKE 1 TABLET BY MOUTH 30 MINUTES PRIOR TO MRI ON 09/24 TRIAZOLAM 06280572508 Gerald D LORAZEPAM 1 MG TABS TAKE 1 TABLET 2 HOURS BEFORE MRI FOR ANXIETY 12/16 LORAZEPAM 15244790602 Gerald D Medications Administered No information available. 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
--- OUTSIDE RECORDS SUMMARY | 2024-10-04 09:04 | XMS_ITS | Encounter Summary ---
Author Organization [facility] ([place], [place], [place], [place]) Address [address] [place] [address] Care Team Providers Care Fashion Buying Internship Name Role Phone Unavailable Primary Care Provider Unavailabl e Encounter Details Date Type Department Care Team (Late st Contact Info) Description 12/23/2020 Transcribed Document [facility] Family Medicine [facility] [place] [address] ProviderJaime MD [address] [place] [address] [id number] Social History Tobacco Use Types Packs/Day Years [...] Sent to Post Acute Providers : Yes [facility] Quality Web Info Shared w Pt/Fam : [...]
--- OUTSIDE RECORDS SUMMARY | 2024-10-04 09:04 | XMS_ITS | Encounter Summary ---
Author Organization [employer] ([place], [place], [place], [place]) Address [address] [place] [address] Care Team Providers Care Digital Media Sales Consultant Name Role Phone Unavailable Primary Care Provider Unavailabl e Encounter Details Date Type Department Care Team (Late st Contact Info) Description 12/08/2020 Transcribed Document [facility] Family Medicine [address] [place] [address] ProviderJaime MD [address], [place] [address] Social History Tobacco Use Types Packs/Day Years [...] Health Plan: [employer] MED[employer] REPL Policy Number: [id number] Authorization Number: Insurance Primary Name : [employer] MEDICARE REPL Policy Number: [id number] Authorization Status-Primary : Opo status approv Authorized Service Begin Date-Primary : 12/16/2020 EDT Observation Authorization Nbr-Primary : [id number] Authorization Comments-Primary : [employer] Medicare approved for outpt per availity Historical Authorization Comments-Primary : No Authorization Comments Found ROLANDO TABARES RN-Utilization Review - 12/08/2020 15:21 EDT Electronically signed by Lakesha [facility] Conversion Office Copy [employer] at 07/09/2022 10:42 AM CDT documented in this encounter Plan of Treatment Not on file documented as of this encounter Visit Diagnoses Not on filedocumented in this encounter
--- OUTSIDE RECORDS SUMMARY | 2024-10-04 09:04 | XMS_ITS | Encounter Summary ---
Author Organization [employer] ([place], [place], [place], [place]) Address [address] [place] [address] Care Team Providers Care Appliance Mechanic Name Role Phone Unavailable Primary Care Provider Unavailabl e Encounter Details Date Type Department Care Team (Late st Contact Info) Description 12/22/2020 Transcribed Document [facility] [place] [facility] [place] [address] ProviderJaime MD [address] [place], [place] [id number] Social History Tobacco Use Types Packs/Day Years [...] or 4 frozen water bottles in the [facility]. Continue to use Incentive Spirometer 10 [...] Barley. Bulgur wheat. Millet. Bran muffins. Popcorn. [place] wafer crackers. Vegetables Sweet potatoes. Spinach. Kale. Artichokes. Cabbage. Broccoli. Green peas. Carrots. Squash. Fruits Berries. Pears. Apples. Oranges. Avocados. Prunes and raisins. Dried figs. Meats and Other Protein Sources [place], kidney, amador, and soy beans. Split peas. [...] 1 katy has 11 g of protein. [place] seeds ??? 1 oz has 5.5 g [...] the floor. Place frequently used items in mxud-ic-mynit places Keep electrical cables out of the [...] ? Using the bathroom. ? Using household parcel post weigher or toxic chemicals. ? Touching or taking [...] activities are safe for you. ??? Take xhmk-rqi-mckofai and prescription medicines only as told by [...] provider. Document Revised: 03/16/2018 Document Reviewed: 10/27/2017 [employer] Patient Education ? 2020 [employer] Electronically signed by Adolph Crowder Conversion Group Reservations Coordinator Cerner at 07/09/2022 10:38 AM CDT documented in this encounter Plan of Treatment Not on file documented as of this encounter Visit Diagnoses Not on filedocumented in this encounter
--- OUTSIDE RECORDS SUMMARY | 2024-10-04 09:04 | XMS_ITS | Encounter Summary ---
Author Organization [employer] ([place], [place], [place], [place]) Address [address] [place] [address] Care Team Providers Care Cloth Calender Name Role Phone Unavailable Primary Care Provider Unavailabl e Encounter Details Date Type Department Care Team (Late st Contact Info) Description 12/23/2020 Transcribed Document [facility] [place] [address] [place] [address] ProviderJaime MD [address] [place], [place] [id number] Social History Tobacco Use Types Packs/Day Years [...]
--- OUTSIDE RECORDS SUMMARY | 2024-10-04 09:04 | XMS_ITS | Encounter Summary ---
Author Organization [employer] ([place], [place], [place], [place]) Address [address] [place] [address] Care Team Providers Care Trailhead Maintenance Worker Name Role Phone Unavailable Primary Care Provider Unavailabl e Encounter Details Date Type Department Care Team (Late st Contact Info) Description 12/23/2020 Transcribed Document [facility] [place] Family Medicine [address] [place] [address] ProviderJaime MD [address] [place] [address] Social History Tobacco Use Types Packs/Day Years Used Date Smoking Tobacco: Never Assessed Sex and Gender Information Value Date Recorded Sex Assigned at Not on file Legal Sex Male 5:28 PM CDT Gender Identity Not on file Sexual Orientation Not on file documented as of this encounter Miscellaneous Notes * Cerner Conversion Note - Jaime ProviderMD - 12/23/2020 1:22 [place] [address] AYLEEN BLACK III :1950 Visit Time:12/23/2020 What [...] then 6 days after surgery Community [facility]: [facility] Physical Therapy Home Health Services: [...] When 12/29/2020 09:45 AM EDT Where: [address] [facility] [address] [place] [address] Medications What How Much When Instructions Next [...] or 4 [facility]. Continue to use Incentive Spirometer [...] Barley. Bulgur wheat. Millet. Bran muffins. Popcorn. [place] wafer crackers. Vegetables Sweet potatoes. Spinach. Kale. Artichokes. Cabbage. Broccoli. Green peas. Carrots. Squash. Fruits Berries. Pears. Apples. Oranges. Avocados. Prunes and raisins. Dried figs. Meats and Other Protein Sources [place], kidney, amador, and soy beans. Split peas. [...] 1 katy has 11 g of protein. [place] seeds ??? 1 oz has 5.5 g [...] the floor. Place frequently used items in flqi-ze-wexip places Keep electrical cables out of the [...] ? Using the bathroom. ? Using household lubricator granulator or toxic chemicals. ? Touching or taking [...] activities are safe for you. ??? Take hjnw-ldc-cvrlzmd and prescription medicines only as told by [...] provider. Document Revised: 03/16/2018 Document Reviewed: 10/27/2017 [employer] Patient Education ?? 2020 [employer]. acetaminophen (oral) (a SEET a MIN oh fen) Actamin, Anacin AF, Aurophen, Bromo Eckerman, Children's Tylenol, Mapap, M-Pap, Pharbetol, Silapap Childrens, [...] is a pain reliever and a fever disc sander. There are many brands and forms of [...] may report side effects to FDA at 8-281-YJQ-7286. What other drugs will affect acetaminophen? Other drugs may affect acetaminophen, including prescription and hzol-jiw-plmfpfu medicines, vitamins, and herbal products. Tell your [...] to ensure that the information provided by [employer]. ('[employer]') is accurate, up-to-date, and complete, but no guarantee is made to that effect. Drug information contained herein may be time sensitive. [employer] information has been compiled for use by healthcare practitioners and consumers in the [place] and therefore [employer] does not warrant that uses outside of the [place] are appropriate, unless specifically indicated otherwise. [employer]s drug information does not endorse drugs, diagnose patients or recommend therapy. [facility] drug information is an informational resource designed [...] effective or appropriate for any given patient. [facility] does not assume any responsibility for any aspect of healthcare administered with the aid of information [facility] provides. The information contained herein is not intended to cover all possible uses, directions, precautions, warnings, drug interactions, allergic reactions, or adverse effects. If you have questions about the drugs you are taking, check with your doctor, nurse or pharmacist. Copyright 3435-5587 [facility] [employer] [employer]. Version: 21.. Revision Date: 11/01/2019. aspirin (oral) ( pir in) Arthritis Pain, Aspi-Cor, Aspir-Low, Nusrat Plus, Durlaza, Ecotrin, Miniprin, Vazalore What is the most important information I should know about aspirin? Aspirin can cause Tonia's syndrome, a serious and sometimes fatal condition in children. What is aspirin? Aspirin is a salicylate (qa-MHT-oe-ate) that is used to treat pain, and [...] may report side effects to FDA at 6-358-NDZ-7096. What other drugs will affect aspirin? Ask [...] drugs may affect aspirin, including prescription and hugh-mch-xczvdtd medicines, vitamins, and herbal products. Not all [...] to ensure that the information provided by [employer]. ('[employer]') is accurate, up-to-date, and complete, but no guarantee is made to that effect. Drug information contained herein may be time sensitive. [employer] information has been compiled for use by healthcare practitioners and consumers in the [place] and therefore [employer] does not warrant that uses outside of the [place] are appropriate, unless specifically indicated otherwise. [employer] drug information does not endorse drugs, diagnose patients or recommend therapy. [employer] drug information is an informational resource designed [...] effective or appropriate for any given patient. [employer] does not assume any responsibility for any aspect of healthcare administered with the aid of information [facility] provides. The information contained herein is not intended to cover all possible uses, directions, precautions, warnings, drug interactions, allergic reactions, or adverse effects. If you have questions about the drugs you are taking, check with your doctor, nurse or pharmacist. Copyright 6182-5236 [employer]. Version: 16.03. Revision Date: 09/21/2020. oxycodone (ox [...] The extended-release form of oxycodone is for dknbqi-vgc-hamme treatment of pain and should not be [...] against the law. Stop taking all other kpqyhc-ntn-oinhy opioid pain medicines when you start taking [...] may report side effects to FDA at 3-316-KMC-0062. What other drugs will affect oxycodone? You [...] may affect oxycodone. This includes prescription and knwj-xyg-mrsyydn medicines, vitamins, and herbal products. Not all [...] to ensure that the information provided by [employer]. ('[employer]') is accurate, up-to-date, and complete, but no guarantee is made to that effect. Drug information contained herein may be time sensitive. [employer] information has been compiled for use by healthcare practitioners and consumers in the [place] and therefore [employer] does not warrant that uses outside of the [place] are appropriate, unless specifically indicated otherwise. [employer]s drug information does not endorse drugs, diagnose patients or recommend therapy. [employer] drug information is an informational resource designed [...] effective or appropriate for any given patient. [employer] does not assume any responsibility for any aspect of healthcare administered with the aid of information [employer] provides. The information contained herein is not intended to cover all possible uses, directions, precautions, warnings, drug interactions, allergic reactions, or adverse effects. If you have questions about the drugs you are taking, check with your doctor, nurse or pharmacist. Copyright 7873-4739 [facility] [employer]. Version: 14.02. Revision Date: 04/23/2020. docusate (oral/rectal) [...] may report side effects to FDA at 6-252-MHI-9685. What other drugs will affect docusate? Other drugs may affect docusate, including prescription and xule-mwr-perspli medicines, vitamins, and herbal products. Tell your [...] to ensure that the information provided by [employer]. ('[employer]') is accurate, up-to-date, and complete, but no guarantee is made to that effect. Drug information contained herein may be time sensitive. [employer] information has been compiled for use by healthcare practitioners and consumers in the [place] and therefore [employer] does not warrant that uses outside of the [place] are appropriate, unless specifically indicated otherwise. [employer]s drug information does not endorse drugs, diagnose patients or recommend therapy. [employer] drug information is an informational resource designed [...] effective or appropriate for any given patient. [employer] does not assume any responsibility for any aspect of healthcare administered with the aid of information [employer] provides. The information contained herein is not intended to cover all possible uses, directions, precautions, warnings, drug interactions, allergic reactions, or adverse effects. If you have questions about the drugs you are taking, check with your doctor, nurse or pharmacist. Copyright 8812-4792 [employer]. Version: 4.01. Revision Date: 10/01/2018. cephalexin (sef [...] may report side effects to FDA at 6-147-CHC-0472. What other drugs will affect cephalexin? Tell your doctor about all your other medicines, especially: ?? metformin; or ?? probenecid. This list is not complete. Other drugs may affect cephalexin, including prescription and nmmy-cha-mphmhnr medicines, vitamins, and herbal products. Not all [...] to ensure that the information provided by [employer]. ('[employer]') is accurate, up-to-date, and complete, but no guarantee is made to that effect. Drug information contained herein may be time sensitive. [employer] information has been compiled for use by healthcare practitioners and consumers in the [place] and therefore [employer] does not warrant that uses outside of the [place] are appropriate, unless specifically indicated otherwise. [employer] drug information does not endorse drugs, diagnose patients or recommend therapy. [employer] drug information is an informational resource designed [...] effective or appropriate for any given patient. [employer] does not assume any responsibility for any aspect of healthcare administered with the aid of information [employer] provides. The information contained herein is not intended to cover all possible uses, directions, precautions, warnings, drug interactions, allergic reactions, or adverse effects. If you have questions about the drugs you are taking, check with your doctor, nurse or pharmacist. Copyright 9128-2826 [employer]. Version: 10.03. Revision Date: 03/30/2020. tramadol (TRAM [...] tramadol? Electronically signed by Adolph Crowder Conversion Strategic Development Manager Romulo at 07/09/2022 10:47 AM CDT documented in this encounter Plan of Treatment Not on file documented as of this encounter Visit Diagnoses Not on filedocumented in this encounter
--- OUTSIDE RECORDS SUMMARY | 2024-10-04 09:04 | XMS_ITS | Clinical Summary ---
Author Organization [employer] ([place], [place], [place], [place]) Address [address] [place], [place] [id number] Care Team Providers Care Health Center Assistant Name Role Phone Unavailable Primary Care [...] Date Milton rded Speak language other than German at home Not on file 01/23/2024 Want [...] Plan of Treatment Not on file Insurance [facility] MEDICARE ADVANTAGE
--- OUTSIDE RECORDS SUMMARY | 2024-10-04 09:04 | XMS_ITS | Encounter Summary ---
Author Organization [employer] ([place], [place], [place], [place]) Address [address] [place] [address] Care Team Providers Care Felt Pad Cutter Name Role Phone Unavailable Primary Care Provider Unavailabl e Encounter Details Date Type Department Care Team (Late st Contact Info) Description 12/09/2020 Transcribed Document [facility] [place] Family Medicine [address] [place] [address] ProviderJaime MD [address], [place] [phone] Social History Tobacco Use Types Packs/Day Years [...] : Standing scale Weight Entry Format : Dale Clinical Dosing Weight : 95.91 kg Weight, Pounds : 211 lb Body Surface Area (BSA) : 2.12 m2 Body Mass Index : 31.2 kg/m2 (HI) [place] Body Weight : 70 kg Michaela Alvarez Rn - 12/09/2020 16:02 EDT Height Source : Stated Height Entry Format : Dale Michaela Alvarez Rn - 12/09/2020 15:57 EDT [...] Michaela Alvarez Rn - 12/09/2020 16:02 EDT Isabella Suicide Severity Rating Scale (C-SSRS) CSSRS Past [...] Obtained From : Patient Primary Language : Belarusian Preferred Communication Mode : Verbal Communication Barrier : None Offset Press Operator Helper Needed : No Michaela Alvarez Rn - [...] Michaela Alvarez Rn - 12/09/2020 16:02 EDT Electronically signed by Adolph Crowder Conversion Printing Press Machine Operator Cerner at 07/09/2022 10:37 AM CDT documented in this encounter Plan of Treatment Not on file documented as of this encounter Visit Diagnoses Not on filedocumented in this encounter
--- OUTSIDE RECORDS SUMMARY | 2024-10-04 09:04 | XMS_ITS | Encounter Summary ---
Author Organization [employer] ([place], [place], [place], [place]) Address [address] [place] [address] Care Team Providers Care Judge Clerk Name Role Phone Unavailable Primary Care Provider Unavailabl e Encounter Details Date Type Department Care Team (Late st Contact Info) Description 12/09/2020 Transcribed Document [facility] [place] Family Medicine [facility] [place] [address] ProviderJaime MD [address] [place] [phone] Social History Tobacco Use Types Packs/Day Years [...] Appearance CLEAR2 12/09/2020 16:01 EDT Urine Specific Vincent *1.026 12/09/2020 16:01 EDT Urine pH Dipstick [...]
--- OUTSIDE RECORDS SUMMARY | 2024-10-04 09:04 | XMS_ITS | Encounter Summary ---
Author Organization [employer] ([place], [place], [place], [place]) Address [address] [place] [address] Care Team Providers Care Qualitative Field Project Manager Name Role Phone Unavailable Primary Care Provider Unavailabl e Encounter Details Date Type Department Care Team (Late st Contact Info) Description 12/23/2020 Transcribed Document [facility] [place] Family Medicine [facility] [place] [address] ProviderJaime MD [facility] [place], [place] [address] Social History Tobacco Use Types Packs/Day Years [...] knee 12/23/2020 12:00 Atherosclerotic heart disease of [place] coronary artery without angina pectoris 12/23/2020 [...]
--- OUTSIDE RECORDS SUMMARY | 2024-10-04 09:04 | XMS_ITS | Encounter Summary ---
Author Organization [employer] ([place], [place], [place], [place]) Address [address] [place] [address] Care Team Providers Care Road Mender Name Role Phone Unavailable Primary Care Provider Unavailabl e Encounter Details Date Type Department Care Team (Late st Contact Info) Description 12/23/2020 Transcribed Document [facility] [place] Family Medicine [address] [place] [address] ProviderJaime MD [address], [place] [phone] Social History Tobacco Use Types Packs/Day Years [...] III /Sex: 1950 Male Med Rec #: [id number] Physician: KAYLA ZIMMERMAN JR, JR, MD-ORT Financial #: [id number] Pt. Type: O Room/Bed: Admit/Disch: 12/23/20 04:16:00 - Institution: [facility] OR PACU Case Times Entry 1 In PACU I 12/23/20 09:56:00 Ready for PACU 12/23/20 11:12:00 Discharge Discharge from PACU 12/23/20 11:12:00 I Last Modified By: Janene Helm RN 12/23/20 11:16:01 [facility] OR PACU Case Times Audit 12/23/20 11:16:01 Wood Tank Erector: KINZA Modifier: KINZA 1 <*> Ready for PACU Discharge 12/23/20 10:30:00 1 <+> Discharge from PACU I Finalized By: Janene Helm RN Document Signatures Signed By: Janene Helm RN 12/23/20 11:16 documented in this encounter Plan of Treatment Not on file documented as of this encounter Visit Diagnoses Not on filedocumented in this encounter
--- OUTSIDE RECORDS SUMMARY | 2024-10-04 09:04 | XMS_ITS | Encounter Summary ---
Author Organization [employer] ([place], [place], [place], [place]) Address [address] [place] [address] Care Team Providers Care Waterproofing Machine Operator Name Role Phone Unavailable Primary Care Provider Unavailabl e Encounter Details Date Type Department Care Team (Late st Contact Info) Description 12/23/2020 Transcribed Document [facility] [place] Family Medicine [facility] [address] ProviderJaime MD [address] [place] [phone] Social History Tobacco Use Types Packs/Day Years [...] Surgery See operative report dictated by Dr. Hatrman Admitting diagnosis 1???unilateral primary osteoarthritis right knee [...] EDT Chloraseptic Menthol 1.4% topical spray: 5 Elizabeth, Oral, Elizabeth, Q2H, PRN for Sore Throat, Routine, Start [...] Oral, Q4H phenol 1.4% throat spray 5 Elizabeth, Oral, Q2H promethazine 25 mg tab 12.5 [...] HTN, CAD and cancer Procedure history: Cholecystectomy (54124389). Hernia ([id number]). Rotator cuff right ([id number]). Knee left partial ([id number]). right upper thigh boil. lymph node drained from right arm pit. Colonoscopy ([id number]). EGD - Esophagogastroduodenoscopy ([id number]). heart cath. cardiac stent. Social History Patient [...] swelling, No deformity, Normal gait. Integumentary: Warm, [place], Intact, No pallor, No rash, WOUND STABLE. [...] then you may give Tylenol 650 mg PO/KS x 1. If no response in 2 [...]
--- OUTSIDE RECORDS SUMMARY | 2024-10-04 09:04 | XMS_ITS | Encounter Summary ---
Author Organization [facility] ([place], [place], [place], [place]) Address [address] [place] [address] Care Team Providers Care Electrician'S Helper Name Role Phone Unavailable Primary Care Provider Unavailabl e Reason for Referral * Consultation (Routine) - Closed Specialty Diagnoses / Procedures Referred By Mitchell dela cruz Referred To Contact Neurology Diagnoses Seizure (HCC) Kirsten Gates [address] [place] [address] Phone: tel: Mac Leonard MD [address] [facility] [address] [place] [address] Phone: tel: fax: Referral ID Status Reason Start Date Expiration Date V isits Requested Visits Authorized [id number] Closed Specialty Services Required 01/03/2024 01/02/2025 1 1 Encounter Details Date Type Department Care Team (Late st Contact Info) Description 01/03/2024 Outside Orders [facility] Neurology [address] [facility] [address] [place] [address] KodyKirsten [place] [address] Seizure (HCC) (Primary Dx) Social History Tobacco [...]
--- OUTSIDE RECORDS SUMMARY | 2024-10-04 09:04 | XMS_ITS | Encounter Summary ---
Author Organization [employer] ([place], [place], [place], [place]) Address [address] [place] [address] Care Team Providers Care Locomotive Crane Operator Name Role Phone Unavailable Primary Care Provider Unavailabl e Encounter Details Date Type Department Care Team (Late st Contact Info) Description 12/23/2020 Transcribed Document [facility] [place] [facility] [place] [address] ProviderJaime MD [address] [place], [place] [id number] Social History Tobacco Use Types Packs/Day Years [...] III /Sex: 1950 Male Med Rec #: [id number] Physician: KAYLA ZIMMERMAN JR, JR, MD-ORT Financial #: [id number] Pt. Type: O Room/Bed: Admit/Disch: 12/23/20 04:16:00 - Institution: [facility] [place] IntraOp Case Attendance Entry 1 Entry 2 Entry 3 Case Attendee KAYLA ZIMMERMAN JR, JR, TARA MERA APRN,HAYDER KOROMA, LUCIE CHANCEORT Role Performed Surgeon/Proceduralist, PACKAGING MATERIALS INSPECTOR/Nurse Cargo Vessel Stewardess Steward/Stewardess Banquet, First First Time In 12/23/20 07:51:00 12/23/20 [...] 5 Entry 6 Case Attendee Stephan Boyce, HAT LINING BLOCKER/POLICE SERGEANT GET ARIAS ST Peel, Polly, Scub Tech Role Performed Registered Nurse Cardiac Telemetry, First Scrub, First Scrub, Second Time In [...] Case Attendee OTHER, ATTENDEE #1 NGOZI PETTY, PACKAGING MATERIALS INSPECTOR Role Performed Vendor PACKAGING MATERIALS INSPECTOR/Nurse Cargo Vessel Stewardess Time In 12/23/20 07:51:00 12/23/20 08:29:00 Time Out 12/23/20 09:55:00 12/23/20 08:41:00 Procedure Knee Total Joint Knee Total Joint Replacement Replacement Other Attendee [place] PACKAGING MATERIALS INSPECTOR BREAK Superficial Wound Closed By: Thom Modified By: HAYDER EASON RN LONGSWORTH, GARY, LUCIE 12/23/20 07:19:17 12/23/20 08:29:30 [facility] IntraOp Case Attendance Audit 12/23/20 09:55:23 Hand Ironer: LONGGA Modifier: LONGGA 1 <+> Time Out [...] Procedure Knee Total Joint Replacement 12/23/20 08:48:55 Hand Ironer: LONGGA Modifier: LONGGA 8 <+> Time Out 8 <*> Procedure Knee Total Joint Replacement 12/23/20 08:29:30 Hand Ironer: LONGGA Modifier: LONGGA <+> 8 Case Attendee <+> 8 Role Performed <+> 8 Time In <+> 8 Procedure <+> 8 Other Attendee 12/23/20 08:25:18 Hand Ironer: LONGGA Modifier: LONGGA 1 <+> Time In [...] Procedure Knee Total Joint Replacement 12/23/20 07:25:50 Hand Ironer: LONGGA Modifier: LONGGA <+> 1 Procedure 2 [...] SJE IntraOp Case Times Audit 12/23/20 09:55:21 Hand Ironer: LONGGA Modifier: LONGGA <+> 1 Out Room Time <+> 1 Stop Time <+> 1 Stop Time 12/23/20 08:21:13 Hand Ironer: LONGGA Modifier: LONGGA <+> 1 Start Time [...] SJE IntraOp Counts Verification Audit 12/23/20 09:01:12 Hand Ironer: LONGGA Modifier: LONGGA <+> 2 Procedure <+> [...] HAYDER EASON, LUCIE, Accompanied by TARA MERA APRN,PACKAGING MATERIALS INSPECTOR Last Modified By: HAYDER EASON RN 12/23/20 09:08:10 S[facility] IntraOp Dressing and Packing Entry 1 Type Dressing Location RIGHT KNEE Wound Dressing Item Papo Supplemental Limb immobilizer, Cold Applications pack Applied By Stephan Boyce, HAT LINING BLOCKER/POLICE SERGEANT Other Comments JONATHAN WOUND DRESSING Last Modified [...] RN 12/23/20 07:24:40 SJE IntraOp General Case Tailor Fitter 1 Case Information OR OR 02 SJE Case Level 1 Room Verified Yes Wound Class I - Clean Specialty Orthopedic Anesthesia Type General ASA Class 3 Diagnosis Preop Diagnosis DEGENERATIVE JOINT DISEASE, RIGHT KNEE Postop Same As Preop Yes Postop Diagnosis DEGENERATIVE JOINT DISEASE, RIGHT KNEE Last Modified By: HAYDER EASON RN 12/23/20 08:27:58 SJE IntraOp General Case Data Audit 12/23/20 08:27:58 Hand Ironer: YVETTE Modifier: LONGGA 1 <*> OR OR [...] PATELLA ITOTAL JIGS CR ITOTAL ID Identification [id number] Description Implant Quantity 2 1 1 Implant Site RIGHT KNEE RIGHT KNEE RIGHT KNEE Implant Identification Model Number Implant [id number] Identification Serial Number Implant [id number] Identification Lot Number Implant Blake:Blake Conformis Conformis Identification Orthopaedics Community Worker Name: Implant [id number] Identification Catalog Number Implant Size Implant Has an Yes Yes Yes Expiration Date Implant Expiration 01/24/22 09/23/22 12/24/21 Date Wasted Radioactive Material Time Implanted Tissue Implant Continue for Tissue Implant Documentation Tissue Identification Number Graft Prep Per Community Worker Instructions: Tissue Preparation Method: Reconstitution Solution: Reconstitution Solution Lot Number Reconstitution Solution Expiration Date: Thawing Solution Thawing Solution Lot Number Thawing Solution Expiration Date Preparation Materials, Other Preparation Materials, Other Lot Number Preparation Materials, Other Expiration Date Tissue Prepared/Processed By Community Worker Paperwork Completed Implant Type Comment Last Modified [...] KT CR FULL ITOTAL ID Identification [id number] [id number] Description Implant Quantity 1 1 1 Implant Site RIGHT KNEE RIGHT KNEE RIGHT KNEE Implant Identification Model Number Implant [id number] Identification Serial Number Implant Identification Lot Number Implant Conformis Conformis Conformis Identification Community Worker Name: Implant [id number] Identification Catalog Number Implant Size Implant Has an Yes Yes Yes Expiration Date Implant Expiration 12/24/21 12/24/21 12/24/21 Date Wasted Radioactive Material Time Implanted Tissue Implant Continue for Tissue Implant Documentation Tissue Identification Number Graft Prep Per Community Worker Instructions: Tissue Preparation Method: Reconstitution Solution: Reconstitution Solution Lot Number Reconstitution Solution Expiration Date: Thawing Solution Thawing Solution Lot Number Thawing Solution Expiration Date Preparation Materials, Other Preparation Materials, Other Lot Number Preparation Materials, Other Expiration Date Tissue Prepared/Processed By Community Worker Paperwork Completed Implant Type Comment Last Modified By: HAYDER EASON RN LONGSWORTH, GARY, RN LONGSWORTH, GARY, RN 12/23/20 08:49:46 12/23/20 08:51:06 12/23/20 08:52:02 SJE IntraOp Implant Log Audit 12/23/20 08:52:02 Hand Ironer: LONGGA Modifier: LONGGA <+> 6 Implant Identification Description <+> 6 Implant Identification Serial Number <+> 6 Implant Identification Community Worker Name: <+> 6 Implant Expiration Date <+> 6 Implant Site <+> 6 Implant Quantity <+> 6 Implant Identification Catalog Number <+> 6 Implant Type <+> 6 Implant Has an Expiration Date <+> 6 Type 12/23/20 08:51:06 Hand Ironer: LONGGA Modifier: LONGGA <+> 5 Implant Identification Description <+> 5 Implant Identification Serial Number <+> 5 Implant Identification Community Worker Name: <+> 5 Implant Expiration Date <+> 5 Implant Site <+> 5 Implant Quantity <+> 5 Implant Identification Catalog Number <+> 5 Implant Type <+> 5 Implant Has an Expiration Date <+> 5 Type 12/23/20 08:49:46 Hand Ironer: LONGGA Modifier: LONGGA <+> 4 Implant Identification Description <+> 4 Implant Identification Serial Number <+> 4 Implant Identification Community Worker Name: <+> 4 Implant Expiration Date <+> 4 Implant Site <+> 4 Implant Quantity <+> 4 Implant Identification Catalog Number <+> 4 Implant Type <+> 4 Implant Has an Expiration Date <+> 4 Type 12/23/20 08:48:24 Hand Ironer: LONGGA Modifier: LONGGA <+> 3 Implant Expiration Date 12/23/20 08:48:23 Hand Ironer: LONGGA Modifier: LONGGA <+> 3 Implant Identification Description <+> 3 Implant Identification Serial Number <+> 3 Implant Identification Community Worker Name: <+> 3 Implant Site <+> 3 Implant Quantity <+> 3 Implant Identification Catalog Number <+> 3 Implant Type <+> 3 Implant Has an Expiration Date <+> 3 Type 12/23/20 08:47:19 Hand Ironer: LONGGA Modifier: LONGGA <+> 2 Implant Identification Description <+> 2 Implant Identification Lot Number <+> 2 Implant Identification Community Worker Name: <+> 2 Implant Expiration Date <+> [...] w/ vancomycin 1Gm vial - epinephrine 1:100,000 [id number] 20ml vial - [id number] Combo Med List 4 - Combo Med [...] SJE IntraOp Medication Admin Audit 12/23/20 08:39:42 Hand Ironer: LONGGA Modifier: LONGGA <+> 5 Medication/Irrigant <+> [...] JR, MD-ORT, SAMARIA, TARA, URSULA,PAPO, Austen, Stephan, HAT LINING BLOCKER/POLICE SERGEANT Position Verified Positioning Yes Verified by Anesthesia [...] SJE IntraOp Surgical Procedures Audit 12/23/20 09:51:54 Hand Ironer: LONGGA Modifier: LONGGA 1 <*> Procedure Knee Total Joint Replacement 1 <+> Stop 12/23/20 08:21:22 Hand Ironer: LONGGA Modifier: LONGGA <+> 1 Start SJE IntraOp Temp Regulation Devices Entry 1 Temp Regulation Temperature Warm blankets Regulation Device Temperature Upper body Regulation Site Temperature SAMARIA, TARA, TELECOM ANALYST,PACKAGING MATERIALS INSPECTOR Regulation Device Applied by Last Modified By: [...] SJE IntraOp Time Out Audit 12/23/20 08:31:31 Hand Ironer: YVETTE Modifier: YVETTE 1 <+> Surgeon 1 [...] Padded Under Cuff Applied By Stephan Boyce, KATHI/POLICE SERGEANT Times Start Time 12/23/20 08:10:00 Stop Time 12/23/20 08:59:00 Last Modified By: HAYDER EASON RN 12/23/20 09:00:54 SJE IntraOp Tourniquet Audit 12/23/20 09:00:54 Hand Ironer: YVETTE Modifier: YVETTE <+> 1 Stop Time Case Comments <None> Finalized By: HAYDER EASON, RN Document Signatures Signed By: HAYDER EASON RN 12/23/20 09:59 Electronically signed by Lakesha [facility] Conversion Sponge Buffer Cerner at 07/09/2022 10:43 AM CDT documented in this encounter Plan of Treatment Not on file documented as of this encounter Visit Diagnoses Not on filedocumented in this encounter
--- OUTSIDE RECORDS SUMMARY | 2024-10-04 09:04 | XMS_ITS | Encounter Summary ---
Author Organization [employer] ([place], [place], [place], [place]) Address [address] [place] [address] Care Team Providers Care Financial Foundations Representative Name Role Phone Unavailable Primary Care Provider Unavailabl e Encounter Details Date Type Department Care Team (Late st Contact Info) Description 12/23/2020 Transcribed Document [facility] [place] [address] [place] [address] ProviderJaime MD [address] [place], [place] [phone] Social History Tobacco Use Types Packs/Day Years [...]
--- OUTSIDE RECORDS SUMMARY | 2024-10-04 09:04 | XMS_ITS | Encounter Summary ---
Author Organization [employer] ([place], [place], [place], [place]) Address [address] [place] [address] Care Team Providers Care Property Management Specialist Name Role Phone Unavailable Primary Care Provider Unavailabl e Encounter Details Date Type Department Care Team (Late st Contact Info) Description 12/23/2020 Transcribed Document [facility] [place] [address] [place] [address] ProviderJaime MD [address], [place] [phone] Social History Tobacco Use Types Packs/Day Years [...] knee 12/23/2020 12:00 Atherosclerotic heart disease of [place] coronary artery without angina pectoris 12/23/2020 12:00 [...]
--- OUTSIDE RECORDS SUMMARY | 2024-10-04 09:04 | XMS_ITS | Encounter Summary ---
Author Organization [employer] ([place], [place], [place], [place]) Address [address] [place] [address] Care Team Providers Care Endband Cutter Hand Name Role Phone Unavailable Primary Care Provider Unavailabl e Encounter Details Date Type Department Care Team (Late st Contact Info) Description 12/23/2020 Transcribed Document [facility] [place] Family Medicine [address] [place] [address] ProviderJaime MD [address] [place], [place] [phone] Social History Tobacco Use Types Packs/Day Years [...] III /Sex: 1950 Male Med Rec #: [id number] Physician: KAYLA ZIMMERMAN JR, JR, MD-ORT Financial #: [id number] Pt. Type: O Room/Bed: Admit/Disch: 12/23/20 04:16:00 - Institution: [place] Main [facility] PostOp Case Times Entry 1 In PACU II 12/23/20 11:13:00 Ready for PACU II 12/23/20 13:49:00 Discharge Discharge from PACU 12/23/20 13:49:00 II Last Modified By: Rosa Montes RN 12/23/20 14:04:05 Finalized By: Rosa Montes, RN Document Signatures Signed By: Rosa Montes RN 12/23/20 14:04 documented in this encounter Plan of Treatment Not on file documented as of this encounter Visit Diagnoses Not on filedocumented in this encounter
--- OUTSIDE RECORDS SUMMARY | 2024-10-04 09:04 | XMS_ITS | Encounter Summary ---
Author Organization [employer] ([place], [place], [place], [place]) Address [address] [place] [address] Care Team Providers Care Laundry Bag Punch Operator Name Role Phone Unavailable Primary Care Provider Unavailabl e Encounter Details Date Type Department Care Team (Late st Contact Info) Description 12/16/2020 Transcribed Document [facility] [place] [address] ProviderJaime MD [address] [place], [place] [address] Social History Tobacco Use Types Packs/Day Years [...]
--- OUTSIDE RECORDS SUMMARY | 2024-10-04 09:04 | XMS_ITS | Encounter Summary ---
Author Organization [employer] ([place], [place], [place], [place]) Address [address] [place] [address] Care Team Providers Care Staff Registered Nurse Name Role Phone Unavailable Primary Care Provider Unavailabl e Encounter Details Date Type Department Care Team (Late st Contact Info) Description 12/23/2020 Transcribed Document [facility] [place] [facility] [place] [address] ProviderJaime MD [address] [place] [address] Social History Tobacco Use Types Packs/Day [...] 12/23/2020 7:23 EDT Electronically signed by Lakesha, [facility] Conversion Equipment Operator [employer] Cerner at 07/09/2022 10:51 AM CDT documented in this encounter Plan of Treatment Not on file documented as of this encounter Visit Diagnoses Not on filedocumented in this encounter
--- OUTSIDE RECORDS SUMMARY | 2024-10-04 09:04 | XMS_ITS | Encounter Summary ---
Author Organization [employer] ([place], [place], [place], [place]) Address [address] [place] [address] Care Team Providers Care Personnel Clerks Supervisor Name Role Phone Unavailable Primary Care Provider Unavailabl e Encounter Details Date Type Department Care Team (Late st Contact Info) Description 12/24/2020 Transcribed Document [facility] [place] [facility] [place] [address] ProviderJaime MD [address] [place] [phone] Social History Tobacco Use Types Packs/Day Years [...] right total knee replacement, final condition improved. /[id number] MD RAO Gibbs Jr/DIANNA / RAO / MODL /[id number] documented in this encounter Plan of Treatment Not on file documented as of this encounter Visit Diagnoses Not on filedocumented in this encounter
--- OUTSIDE RECORDS SUMMARY | 2024-10-04 09:04 | XMS_ITS | Data Portability ---
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 From Automated Load;Prov ider: Sg Orourke Jr;St atus: Active Not Available [facility] 7 02:42:07 Reduced libido 2493191 Active 2015 From Automated Load;Prov ider: Sg Orourke Jr;St atus: Active Not Available [facility] 7 06:28:36 Impotence Active 2015 From Automated Load;Prov ider: Sg Orourke Jr;St atus: Active Not Available [facility] 7 07:22:50 Lower urinary tract symptoms due to benign prostatic hypertrop hy 49661127236 101 Active 2015 From Automated Load;Prov ider: Sg Orourke Jr;St atus: Active Not Available [facility] 7 08:26:38 Problem Notes None recorded. Medical Equipment None Reported. Allergies Allergen ID Allergen Name Allergen Category Reaction Reaction Severity Criticality Documentation Date Start Date Code Code System Note Provider Name and Address Organization Details Recorded Time 509135 Product containin g penicilli n (product) medicatio n Not available Not available Not available 05/09/20162014 80107 8001 SNOMED Comme nt: Creat ed By: Annita woods Date: 2014 10:23 :22 AM; Not Available [facility] 7 10:59:12 Medications Name Sig Start [...] Body mass index (BMI) Body weight Systolic And Diastolic Provider Name and Address Organization Details Last Updated DateTime 11/23/2018 175.26 cm 33.1 kg/m2 497295.69 g 132/80 mm[Hg] Rebeca Christopherls [facility] 11/23/2018 09:33:02 Social History None recorded. Functional Status None recorded. Mental Status None recorded. Family History Nothing Reported. Medical History Condition Response Allergies/Hayfever Y Diabetes Y Anxiety/Depression N Thyroid Disease N Arthritis Y Seizures/Epilepsy N Heart Conditions Y Hernia Y Cancer N Migraines N Stroke N COPD N Asthma N Pneumonia Y Blood Thinners Y Sleep Apnea Y High Cholesterol Y Anesthesia Complications N Liver Disease N Hypertension Y Kidney Disease N Past Encounters Encounter ID Performer Location Encounter Start Date Encounter Closed Date Diagnosis/Indication Diagnosis SNOMED-CT Code Diagnosis ICD10 Code Diagnosis Note [id number] [facility] [address] 07/06/2016 15:48:49 07/06/2016 15:48:49 [id number] Skinny MONDRAGON MD [facility] [address] [place] [address] 11/23/2018 08:51:17 11/27/2018 15:10:20 Localized, primary osteoarthritis of the shoulder region 188861588 M19.019 Health Concerns Section Related Observation LastModified by Organization Detai ls LastModified Time None Recorded Concern Status LastModified by Organization Details LastModified Time None Recorded Advance Directives Directive None Recorded Payers Insurance Date Sequence Insurance Name Policy Number Policy Neal Covered Member ID Neal Member ID Guarantor Name 07/24/2020 1 [employer] (MEDICARE REPLACEMENT/A DVANTAGE - PPO) [id number] [facility] [place] [facility] [id number] [employer] Notes Date Note Type Note Provider Name and Address Organization Details Recorded Time 11/23/2018 text/html The maximal problems are with abduction and rotation and pushing with the arm. Skinny MONDRAGON MD [address] [facility], [place], [address], [facility] 11/29/2018 09:27:12
--- OUTSIDE RECORDS SUMMARY | 2024-10-04 09:04 | XMS_ITS | Encounter Summary ---
Author Organization [employer] ([place], [place], [place], [place]) Address [address] [place] [address] Care Team Providers Care Federal Air Marshal Name Role Phone Unavailable Primary Care Provider Unavailabl e Encounter Details Date Type Department Care Team (Late st Contact Info) Description 12/23/2020 Transcribed Document [facility] [place] [facility] [place] [address] ProviderJaime MD [address] [place] [phone] Social History Tobacco Use Types Packs/Day Years [...]
--- OUTSIDE RECORDS SUMMARY | 2024-10-04 09:04 | XMS_ITS | Encounter Summary ---
Author Organization [employer] ([place], [place], [place], [place]) Address [address] [place] [address] Care Team Providers Care Scientific Systems Analyst Name Role Phone Unavailable Primary Care Provider Unavailabl e Encounter Details Date Type Department Care Team (Late st Contact Info) Description 12/23/2020 Transcribed Document [facility] [place] Family Medicine [address] [place] [address] ProviderJaime MD [address] [place], [place] [phone] Social History Tobacco Use Types Packs/Day Years [...] III /Sex: 1950 Male Med Rec #: [id number] Physician: KAYLA ZIMMERMAN JR, JR, MD-ORT Financial #: [id number] Pt. Type: O Room/Bed: Admit/Disch: 12/23/20 04:16:00 - Institution: [facility] [place] PreOp Case Times Entry 1 In Preop 12/23/20 05:15:00 Ready for Holding n/a Room Patient Ready for 12/23/20 06:42:00 Surgery Patient Out of Preop 12/23/20 07:50:00 Patient Out of n/a Holding Room Last Modified By: Aden Boyce RN 12/23/20 07:46:17 SJE PreOp Case Times Audit 12/23/20 07:46:17 Vice President Of Business Development: BLANKDanny Modifier: ADENVERNADanny <+> 1 Patient Out of Preop Finalized By: Aden Boyce, RN Document Signatures Signed By: Aden Boyce RN 12/23/20 07:46 documented in this encounter Plan of Treatment Not on file documented as of this encounter Visit Diagnoses Not on filedocumented in this encounter
--- OUTSIDE RECORDS SUMMARY | 2024-10-04 09:04 | XMS_ITS | Encounter Summary ---
Author Organization [employer] ([place], [place], [place], [place]) Address [address] [place] [address] Care Team Providers Care Investigator Cash Shortage Name Role Phone Unavailable Primary Care Provider Unavailabl e Encounter Details Date Type Department Care Team (Late st Contact Info) Description 12/09/2020 Transcribed Document [facility] [place] [address] [place] [address] ProviderJaime MD [address] [place], [place] [phone] Social History Tobacco Use Types Packs/Day Years [...]
--- OUTSIDE RECORDS SUMMARY | 2024-10-04 09:04 | XMS_ITS | Clinical Summary ---
Author Organization [facility] Address [address] [place] [address] Care Team Providers Care Chartered Financial Analyst Name Role Phone Markus Huang FOUNDER PRESIDENT AND CEO Primary Care Provider Allergies Active Allergy Reactions [...] Wellness (AWV) 1950 [facility]-Infant/Child/Adol SDOH Screenings 1950 [id number] Vaccine (#1) 1957 Diabetes: Dental Exam 1962 [...] Relevant to Health Maintenance Results * [place] Hepatitis C Antibody (02/13/2019 6:35 PM EST) [place] Hepatitis C Ab NEGATIVE Reference Range: Negative [facility] 02/13/2019 6:35 PM EST 02/13/2019 7:06 PM EST us Major Diaz MD LAB BLOOD ORDERABLES Final Re sult [facility] from Last 3 Months or Most Recently Relevant to Health Maintenance Insurance [facility] MEDICARE Care Teams Chartered Financial Analyst Relationship Specialty Start Date End Date Markus Huang APRN [address] [place] [address] [place] [address] PCP - General 10/10/22
--- OUTSIDE RECORDS SUMMARY | 2024-10-04 09:04 | XMS_ITS | Encounter Summary ---
Author Organization [employer] ([place], [place], [place], [place]) Address [address] [place] [address] Care Team Providers Care Flatware Maker Name Role Phone Unavailable Primary Care Provider Unavailabl e Encounter Details Date Type Department Care Team (Late st Contact Info) Description 12/23/2020 Transcribed Document [facility] [place] [address] [place] [address] ProviderJaime MD [address] [place] [address] Social History Tobacco Use Types [...] Source : Measured Height Entry Format : [place] Height, Feet : 5 ft(Converted to: 152 cm, 60 Inch) Height, Inches : 9 Inch(Converted to: 0 ft 9 Inch, 22.86 cm) Clinical Height : 175.26 cm Weight Source : Standing scale Weight Entry Format : [place] Clinical Dosing Weight : 96.36 kg Weight, Pounds : 212 lb Body Surface Area (BSA) : 2.12 m2 Body Mass Index : 31.4 kg/m2 (HI) [place] Body Weight : 70 kg Georgie Boyce RN - 12/23/2020 6:56 EDT Health Histories Smoking Status : Never (less than 100 in lifetime; none in last 30 days) Smokeless Tobacco Status : Never Georgie Boyce RN - 12/23/2020 6:56 EDT Social History (As Of: 12/23/2020 07:00:04 EDT) Tobacco: Smoking Status Never smoker. (Last Updated: 12/15/2014 07:41:46 EDT by CARTER MERION RN) Never (less than 100 in lifetime) [...] Georgie Boyce RN - 12/23/2020 6:56 EDT [place] Suicide Severity Rating Scale (C-SSRS) CSSRS Past [...] #2 Relationship : . Primary Language : Icelandic Preferred Communication Mode : Verbal Communication Barrier : None Chief Operator Hydroformer Needed : No Georgie Boyce RN - [...] Old : Yes Gender Male : Yes eGorgie Boyce RN - 12/23/2020 6:56 EDT Pain Scale Intensity : 0 Georgie Boyce RN - 12/23/2020 6:56 EDT Image 4 - Images currently included in the form version of this document have not been included in the text rendition version of the form. Electronically signed by Adolph Crowder Conversion Health Records Technology Teacher Cerner at 07/09/2022 10:52 AM CDT documented in this encounter Plan of Treatment Not on file documented as of this encounter Visit Diagnoses Not on filedocumented in this encounter
--- OUTSIDE RECORDS SUMMARY | 2024-10-04 09:04 | XMS_ITS | Referral Summary ---
Author Organization [employer] ([place], [place], [place], [place]) Address [address] [place], [place] [id number] Care Team Providers Care Interior Design Assistant Name Role Phone Unavailable Primary Care [...] Date Milton rded Speak language other than Syriac at home Not on file 01/23/2024 Want [...] Plan of Treatment Not on file Insurance [facility] MEDICARE ADVANTAGE
--- OUTSIDE RECORDS SUMMARY | 2024-10-04 09:04 | XMS_ITS | Encounter Summary ---
Author Organization [employer] ([place], [place], [place], [place]) Address [address] [place] [address] Care Team Providers Care Testing Engineer Name Role Phone Unavailable Primary Care Provider Unavailabl e Encounter Details Date Type Department Care Team (Late st Contact Info) Description 12/23/2020 Transcribed Document [facility] [place] [address] [place] [address] ProviderJaime MD [address] [place], [place] [address] Social History Tobacco Use Types Packs/Day Years [...]
--- OUTSIDE RECORDS SUMMARY | 2024-10-04 09:04 | XMS_ITS | Encounter Summary ---
Author Organization [employer] ([place], [place], [place], [place]) Address [address] [place] [address] Care Team Providers Care Rivet Flunky Name Role Phone Unavailable Primary Care Provider Unavailabl e Encounter Details Date Type Department Care Team (Late st Contact Info) Description 12/16/2020 Transcribed Document [facility] [place] [address] [place] [address] ProviderJaime MD [address], [place] [id number] Social History Tobacco Use Types Packs/Day Years [...] Source : Stated Height Entry Format : [place] Height, Feet : 5 ft(Converted to: 152 cm, 60 Inch) Height, Inches : 9 Inch(Converted to: 0 ft 9 Inch, 22.86 cm) Clinical Height : 175.26 cm Weight Source : Standing scale Weight Entry Format : [place] Clinical Dosing Weight : 96.93 kg Weight, Pounds : 213 lb Weight, Ounces : 4 oz Body Surface Area (BSA) : 2.12 m2 Body Mass Index : 31.6 kg/m2 (HI) [place] Body Weight : 70 kg CIARA WOODS [...] 6:51 EDT ADL Index Score : 12 CIAAR WOODS RN - 12/16/2020 6:51 EDT Advance Directive Patient has Advance Directive *Q : Yes, Advance Directive not with the patient Advance Directive Type : Living will Copy Advance Directive Verified/on Chart : No CIARA WOODS RN - 12/16/2020 6:51 EDT Spiritual/Cultural Needs Any Spiritual/Cultural Needs or Requests : No CIARA WOODS RN - 12/16/2020 6:51 EDT [place] Suicide Severity Rating Scale (C-SSRS) CSSRS Past [...] Obtained From : Patient Primary Language : Japanese Preferred Communication Mode : Verbal Communication Barrier : None Leather Stripping Machine Operator Needed : No CIARA WOODS RN - [...]
--- OUTSIDE RECORDS SUMMARY | 2024-10-04 09:04 | XMS_ITS | Encounter Summary ---
Author Organization [employer] ([place], [place], [place], [place]) Address [address] [place] [address] Care Team Providers Care Music Therapist Name Role Phone Unavailable Primary Care Provider Unavailabl e Encounter Details Date Type Department Care Team (Late st Contact Info) Description 12/23/2020 Transcribed Document [facility] [place] [facility] [place] [address] ProviderJaime MD [address], [place] [id number] Social History Tobacco Use Types Packs/Day Years [...]
== END 2024-10-02 23:59 | disposition home or self-care (01) ==
LOC: LAB.DROPOF 10-04 09:02
PROVIDERS: PCP Family Medicine; Visit Provider Family Medicine
DX: Z12.5 Encounter for screening for malignant neoplasm of prostate (principal); D64.9 Anemia, unspecified; R06.00 Dyspnea, unspecified
CPT/HCPCS: 80053; 82728; 83540; 83550; 85025; G0103

== ENCOUNTER 2024-10-03 13:10 | Emergency (ER) | payer MEDICARE, SELFPAY ==
[2024-10-03] VITALS (7 sets, daily range): BP systolic 110–138; BP diastolic 63–112; PULSE 66–91; RESP 15–18; TEMP 36.8–37.2; O2SAT 96–100; BMI 29.2
--- OUTSIDE RECORDS SUMMARY | 2024-10-03 13:54 | XMS_ITS | Clinical Summary ---
Author Organization [employer] ([place], [place], [place], [place]) Address [address] [place], [place] [address] Care Team Providers Care Water Conservationist Name Role Phone Unavailable Primary Care Provider [...] Date Milton rded Speak language other than Turkmen at home Not on file 01/23/2024 Want [...] Plan of Treatment Not on file Insurance [facility] [place] [address]
--- OUTSIDE RECORDS SUMMARY | 2024-10-03 13:54 | XMS_ITS | Encounter Summary ---
Author Organization [employer] ([place], [place], [place], [place]) Address [address] [place] [address] Care Team Providers Care House Mover Name Role Phone Unavailable Primary Care Provider Unavailabl e Encounter Details Date Type Department Care Team (Late st Contact Info) Description 12/09/2020 Transcribed Document [facility] [place] Family Medicine [address] [place] [address] ProviderJaime MD [address], [place] [id number] Social History Tobacco Use Types Packs/Day Years [...] : Standing scale Weight Entry Format : [place] Clinical Dosing Weight : 95.91 kg Weight, Pounds : 211 lb Body Surface Area (BSA) : 2.12 m2 Body Mass Index : 31.2 kg/m2 (HI) [place] Body Weight : 70 kg Michaela Alvarez Rn - 12/09/2020 16:02 EDT Height Source : Stated Height Entry Format : [place] Michaela Alvarez Rn - 12/09/2020 15:57 EDT [...] Michaela Alvarez Rn - 12/09/2020 16:02 EDT [place] Suicide Severity Rating Scale (C-SSRS) CSSRS Past [...] Obtained From : Patient Primary Language : Malian Preferred Communication Mode : Verbal Communication Barrier : None Commercial Roofer Needed : No Michaela Alvarez Rn - [...]
--- OUTSIDE RECORDS SUMMARY | 2024-10-03 13:54 | XMS_ITS | Encounter Summary ---
Author Organization [employer] ([place], [place], [place], [place]) Address [address] [place] [address] Care Team Providers Care Acid Bath Mixer Name Role Phone Unavailable Primary Care Provider Unavailabl e Encounter Details Date Type Department Care Team (Late st Contact Info) Description 12/08/2020 Transcribed Document [facility] [place] [address] [place] [address] ProviderJaime MD [address] [place], [place] [address] Social History Tobacco Use Types Packs/Day Years [...] Health Plan: [employer] MED[employer]ARE REPL Policy Number: [id number] Authorization Number: Insurance Primary Name : [employer] MEDICARE REPL Policy Number: [id number] Authorization Status-Primary : Opo status approv Authorized Service Begin Date-Primary : 12/16/2020 EDT Observation Authorization Nbr-Primary : [id number] Authorization Comments-Primary : [employer] Medicare approved for outpt per availity Historical Authorization Comments-Primary : No Authorization Comments Found ROLANDO TABARES RN-Utilization Review - 12/08/2020 15:21 EDT Electronically signed by Lakesha [facility] Conversion Rn Anesthetist Cerner at 07/09/2022 10:42 AM CDT documented in this encounter Plan of Treatment Not on file documented as of this encounter Visit Diagnoses Not on filedocumented in this encounter
--- OUTSIDE RECORDS SUMMARY | 2024-10-03 13:54 | XMS_ITS | Encounter Summary ---
Author Organization [employer] ([place], [place], [place], [place]) Address [address] [place] [address] Care Team Providers Care Announcer Name Role Phone Unavailable Primary Care Provider Unavailabl e Encounter Details Date Type Department Care Team (Late st Contact Info) Description 12/24/2020 Transcribed Document [facility] [place] [facility] [place] [address] ProviderJaime MD [address] [place] [id number] Social History Tobacco Use Types Packs/Day Years [...] right total knee replacement, final condition improved. /[id number] MD RAO Gibbs Jr/DIANNA / RAO / MODL /[id number] documented in this encounter Plan of Treatment Not on file documented as of this encounter Visit Diagnoses Not on filedocumented in this encounter
--- OUTSIDE RECORDS SUMMARY | 2024-10-03 13:54 | XMS_ITS | Clinical Summary ---
Author Organization [facility] Address [address] [place] [address] Phone Care Team Providers Care Jai Alai Player Name Role Phone Jer Zhang MD [ ] Conditions or Problems Problem Name Problem Code Onset Date Status Entry Date Provider Comment Standard Description Annotate Diarrhea, chronic 016340136 (SNOMED CT) 12/19 Active 12/19 Jer Zhang MD Chronic diarrhea Lymphedema 081590758 (SNOMED CT) 12/19 Active 12/19 Jer Zhang MD Lymphedema Latent tuberculosis 147822312 (SNOMED CT) 12/16 Active 12/16 Imelda Hollis Nonspecific tuberculin test reaction + 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 R76.12 (ICD-10-CM ) 09/18 Active 09/18 Imelda Bunny 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 gamma interferon antigen response without active tuberculosis Edema, limb 368685652 (SNOMED CT) 09/21 Resolved 09/21 Imelda Hollis Edema of extremity Right Leg Edema, limb 813155079 (SNOMED CT) 09/21 Removed 09/21 Jer Zhang [...] DAY 2 THROUGH DAY 5 12/19 azithromycin 35681489793 Cinda Rolando BENZONATATE 100 MG CAPS Take 1 capsule by mouth three times a day as needed 12/19 BENZONATATE Cinda Fu TRIAZOLAM 0.25 MG TABS Take 1 tablet by mouth 12/19 triazolam 18224771933 Cinda Fu LORAZEPAM 1 MG TABS Take 1 tablet 12/19 lorazepam 12315124632 Cinda Fu LEVOFLOXACIN 750 MG TABS Take 1 tablet by mouth once a day 12/19 levofloxacin 72847191553 Cinda Rloando LOSARTAN POTASSIUM 50 MG TABS one tab oral daily 12/19 losartan 20255679496 Cinda Rolando NYSTATIN 840732 UNIT/GM OINT Apply to skin once a day 12/19 nystatin 85645360058 Cinda Fu RIFAMPIN 300 MG CAPS Take 2 by mouth once a day 12/19 rifampin 57368083316 Cinda Rolando CYCLOBENZAPRINE HCL 5 MG TABS one tab oral daily 12/19 cyclobenzaprine 57124634210 Cinda Fu ISONIAZID 300 MG TABS Take 1 tablet by mouth once a day 12/19 isoniazid 61387412460 Cinda PROMETHAZINE-CODEI NE 6.25-10 MG/5ML SYRP Take 5 ml by mouth twice a day 12/19 promethazine-code ine 88881106709 Cinda Fu DICYCLOMINE HCL 10 MG CAPS 1 cap oral twice a day 12/19 dicyclomine 03359348035 Cinda Fu CLOPIDOGREL BISULFATE 75 MG TABS Take 1 tablet by mouth once a day 12/19 clopidogrel 43893763899 Cinda Marshall HYDROCOD POLST-CPM POLST ER 10-8 MG/5ML ORAL SUSPENSION EXTENDED RELEASE Take 1 teaspoon by mouth twice a day 12/19 HYDROCOD POLST-CPM POLST ER 10-8 MG/5ML ORAL SUSPENSION EXTENDED RELEASE Cinda Marshall PLAVIX 75 MG TABS once a day clopidogrel 6790677 7190 Cinda Marshall TRIAZOLAM 0.25 MG TABS Take 1 tablet by mouth 09/24 triazolam 48455081458 Melvin Hartman ISONIAZID 300 MG TABS Take 1 tablet by mouth once a day 12/19 isoniazid 78045406246 Melvin Hartman CLOPIDOGREL BISULFATE 75 MG TABS Take 1 tablet by mouth once a day 12/19 clopidogrel 94764277925 Melvin Hartman LORAZEPAM 1 MG TABS Take 1 tablet 12/19 lorazepam 01405875371 Melvin Hartman NYSTATIN 808844 UNIT/GM OINT Apply to skin once a day 12/19 nystatin 41648005274 Melvin Hartman HYDROCOD POLST-CPM POLST ER 10-8 MG/5ML ORAL SUSPENSION EXTENDED RELEASE Take 1 teaspoon by mouth twice a day 12/19 HYDROCOD POLST-CPM POLST ER 10-8 MG/5ML ORAL SUSPENSION EXTENDED RELEASE Melvin Hartman AZITHROMYCIN 250 MG TABS TAKE 2 TABLETS BY MOUTH ON DAY 1 AND THEN TAKE 1 TABLET BY MOUTH ONCE A DAY ON DAY 2 THROUGH DAY 5 09/24 azithromycin 38318124577 Melvin Hartman RIFAMPIN 300 MG CAPS Take 2 by mouth once a day 09/24 rifampin 85504555339 Melvin Hartman PROMETHAZINE-CODEI NE 6.25-10 MG/5ML SYRP Take 5 ml by mouth twice a day 05/09 promethazine-code ine 86105705379 Melvin Hartman BENZONATATE 100 MG CAPS Take 1 capsule by mouth three times a day as needed 12/19 BENZONATATE Melvin Hartman LEVOFLOXACIN 750 MG TABS Take 1 tablet by mouth once a day 12/19 levofloxacin 09254066492 Melvin Hartman DICYCLOMINE HCL 10 MG CAPS 1 cap oral twice a day 09/24 dicyclomine 81867928044 Melvin Hartman SIMVASTATIN 20 MG TABS one tab oral daily simvastatin 81989321026 Melvin Hartman LOSARTAN POTASSIUM 50 MG TABS one tab oral daily 09/24 losartan 60694162167 Melvin Hartman CYCLOBENZAPRINE HCL 5 MG TABS one tab oral daily 09/24 cyclobenzaprine 42514632762 Melvin Hartman TRAMADOL HCL 50 MG TABS one tab every 6 hours prn tramadol 79371893432 Melvin Hartman METFORMIN HCL 500 MG TABS one tab oral twice a day metformin 45987062286 Melvin Hartman RIFAMPIN 300 MG CAPS take 2 po daily 09/24 RIFAMPIN 92254829481 Jer Zhang MD ISONIAZID 300 MG TABS Take 1 tablet by mouth daily 12/16 ISONIAZID 34958419616 Jer Zhang MD AZITHROMYCIN 250 MG TABS TAKE 2 TABLETS BY MOUTH ON DAY 1 AND THEN TAKE 1 TABLET BY MOUTH ONCE A DAY ON DAY 2 THROUGH DAY 5 09/24 AZITHROMYCIN 05336544049 Gerald Ocasio BENZONATATE 100 MG CAPS TAKE 1 CAPSULE BY MOUTH THREE TIMES DAILY FOR 10 DAYS NEEDED FOR COUGH 12/16 BENZONATATE 41907510710 Gerald Ocasio PROMETHAZINE-CODEI NE 6.25-10 MG/5ML SOLN TAKE 5 ML BY MOUTH TWICE DAILY 12/16 PROMETHAZINE-CODE INE 86794677323 Gerald Ocasio LEVOFLOXACIN 750 MG TABS TAKE 1 TABLET BY MOUTH ONCE DAILY FOR 8 DAYS 12/16 LEVOFLOXACIN 62916973084 Gerald Ocasio CLOPIDOGREL BISULFATE 75 MG TABS TAKE 1 TABLET BY MOUTH ONCE DAILY 12/16 CLOPIDOGREL BISULFATE 38366613077 Gerald D NYSTATIN 155463 UNIT/GM OINT APPLY OINTMENT TOPICALLY ONCE DAILY 12/16 NYSTATIN 50544479185 Gerald D HYDROCOD POLST-CPM POLST ER 10-8 MG/5ML ORAL SUSPENSION EXTENDED RELEASE TAKE 1 TEASPOONFUL (5 ML) BY MOUTH TWICE DAILY MAY CAUSE DROWSINESS 12/16 HYDROCOD POLST-CHLORPHEN POLST 25015034746 Gerald D TRIAZOLAM 0.25 MG TABS TAKE 1 TABLET BY MOUTH 30 MINUTES PRIOR TO MRI ON 09/24 TRIAZOLAM 63474558945 Gerald D LORAZEPAM 1 MG TABS TAKE 1 TABLET 2 HOURS BEFORE MRI FOR ANXIETY 12/16 LORAZEPAM 86560929958 Gerald D Medications Administered No information available. 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
--- OUTSIDE RECORDS SUMMARY | 2024-10-03 14:00 | XMS_ITS | Encounter Summary ---
Author Organization [employer] ([place], [place], [place], [place]) Address [address] [place] [address] Care Team Providers Care Wallpaper Cleaner Name Role Phone Unavailable Primary Care Provider Unavailabl e Encounter Details Date Type Department Care Team (Late st Contact Info) Description 12/23/2020 Transcribed Document [facility] [place] [facility] [place] [address] ProviderJaime MD [address] [place] [phone] Social History Tobacco Use Types Packs/Day Years [...] Sent to Post Acute Providers : Yes [facility] Quality Web Info Shared w Pt/Fam [...]
--- OUTSIDE RECORDS SUMMARY | 2024-10-03 14:00 | XMS_ITS | Encounter Summary ---
Author Organization [employer] ([place], [place], [place], [place]) Address [address] [place] [address] Care Team Providers Care Stuffing Machine Operator Name Role Phone Unavailable Primary Care Provider Unavailabl e Encounter Details Date Type Department Care Team (Late st Contact Info) Description 12/23/2020 Transcribed Document [facility] [place] Family Medicine [address] [place] [address] ProviderJaime MD [address] [place], [place] [id number] Social History Tobacco Use Types Packs/Day Years [...] knee 12/23/2020 12:00 Atherosclerotic heart disease of [place] coronary artery without angina pectoris 12/23/2020 12:00 [...]
--- OUTSIDE RECORDS SUMMARY | 2024-10-03 14:00 | XMS_ITS | Encounter Summary ---
Author Organization [employer] ([place], [place], [place], [place]) Address [address] [place] [address] Care Team Providers Care Outsole Handler Name Role Phone Unavailable Primary Care Provider Unavailabl e Encounter Details Date Type Department Care Team (Late st Contact Info) Description 12/23/2020 Transcribed Document [facility] [place] Family Medicine [address] [place] [address] ProviderJaime MD [address] [place] [id number] Social History Tobacco Use Types Packs/Day Years [...] III /Sex: 1950 Male Med Rec #: [id number] Physician: KAYLA ZIMMERMAN JR, JR, MD-ORT Financial #: [id number] Pt. Type: O Room/Bed: Admit/Disch: 12/23/20 04:16:00 - [place] [facility] [place] Attendance Entry 1 Entry 2 Entry 3 Case Attendee KAYLA ZIMMERMAN JR, JR, TARA MERA APRN,HAYDER KOROMA, LUCIE CHANCEORT Role Performed Surgeon/Proceduralist, HUMAN RESOURCES SPECIALIST/Nurse Instrument Lens Grinder Apprentice Chocolate Maker, First First Time In 12/23/20 07:51:00 12/23/20 [...] 5 Entry 6 Case Attendee Stephan Boyce, HOUSETRAILER SERVICER/ANGER CONTROL COUNSELOR GET ARI[address] ST Peel, Polly, Scub Tech Role Performed Pearl Glue Drier, First Scrub, First Scrub, Second Time In [...] Case Attendee OTHER, ATTENDEE #1 NGOZI PETTY, HUMAN RESOURCES SPECIALIST Role Performed Vendor HUMAN RESOURCES SPECIALIST/Nurse Instrument Lens Grinder Apprentice Time In 12/23/20 07:51:00 12/23/20 08:29:00 Time Out 12/23/20 09:55:00 12/23/20 08:41:00 Procedure Knee Total Joint Knee Total Joint Replacement Replacement Other Attendee [place] HUMAN RESOURCES SPECIALIST BREAK Superficial Wound Closed By: Thom Modified By: HAYDER EASON RN LONGSWORTH, GARY, LUCIE 12/23/20 07:19:17 12/23/20 08:29:30 [facility] IntraOp Case Attendance Audit 12/23/20 09:55:23 Business Broker: LONGGA Modifier: LONGGA 1 <+> Time Out [...] Procedure Knee Total Joint Replacement 12/23/20 08:48:55 Business Broker: LONGGA Modifier: LONGGA 8 <+> Time Out 8 <*> Procedure Knee Total Joint Replacement 12/23/20 08:29:30 Business Broker: LONGGA Modifier: LONGGA <+> 8 Case Attendee <+> 8 Role Performed <+> 8 Time In <+> 8 Procedure <+> 8 Other Attendee 12/23/20 08:25:18 Business Broker: LONGGA Modifier: LONGGA 1 <+> Time In [...] Procedure Knee Total Joint Replacement 12/23/20 07:25:50 Business Broker: LONGGA Modifier: LONGGA <+> 1 Procedure 2 [...] [facility] IntraOp Case Times Audit 12/23/20 09:55:21 Business Broker: LONGGA Modifier: LONGGA <+> 1 Out Room Time <+> 1 Stop Time <+> 1 Stop Time 12/23/20 08:21:13 Business Broker: LONGGA Modifier: LONGGA <+> 1 Start Time [...] [facility] IntraOp Counts Verification Audit 12/23/20 09:01:12 Business Broker: LONGGA Modifier: LONGGA <+> 2 Procedure <+> [...] HAYDER EASON, LUCIE, Accompanied by TARA MERA APRN,HUMAN RESOURCES SPECIALIST Last Modified By: HAYDER EASON RN 12/23/20 09:08:10 [facility] IntraOp Dressing and Packing Entry 1 Type Dressing Location RIGHT KNEE Wound Dressing Item Papo Supplemental Limb immobilizer, Cold Applications pack Applied By Stephan Boyce, HOUSETRAILER SERVICER/ANGER CONTROL COUNSELOR Other Comments JONATHAN WOUND DRESSING Last Modified [...] RN 12/23/20 07:24:40 [facility] IntraOp General Case Engrosser 1 Case Information OR OR 02 SJE Case Level 1 Room Verified Yes Wound Class I - Clean Specialty Orthopedic Anesthesia Type General ASA Class 3 Diagnosis Preop Diagnosis DEGENERATIVE JOINT DISEASE, RIGHT KNEE Postop Same As Preop Yes Postop Diagnosis DEGENERATIVE JOINT DISEASE, RIGHT KNEE Last Modified By: HAYDER EASON RN 12/23/20 08:27:58 [facility] IntraOp General Case Data Audit 12/23/20 08:27:58 Business Broker: YVETTE Modifier: LONGGA 1 <*> OR OR [...] PATELLA ITOTAL JIGS CR ITOTAL ID Identification [id number] Description Implant Quantity 2 1 1 Implant Site RIGHT KNEE RIGHT KNEE RIGHT KNEE Implant Identification Model Number Implant [id number] Identification Serial Number Implant [id number] Identification Lot Number Implant Blake:Blake Conformis Conformis Identification Orthopaedics Medical Massage Therapist Name: Implant [id number] Identification Catalog Number Implant Size Implant Has an Yes Yes Yes Expiration Date Implant Expiration 01/24/22 09/23/22 12/24/21 Date Wasted Radioactive Material Time Implanted Tissue Implant Continue for Tissue Implant Documentation Tissue Identification Number Graft Prep Per Medical Massage Therapist Instructions: Tissue Preparation Method: Reconstitution Solution: Reconstitution Solution Lot Number Reconstitution Solution Expiration Date: Thawing Solution Thawing Solution Lot Number Thawing Solution Expiration Date Preparation Materials, Other Preparation Materials, Other Lot Number Preparation Materials, Other Expiration Date Tissue Prepared/Processed By Medical Massage Therapist Paperwork Completed Implant Type Comment Last Modified [...] KT CR FULL ITOTAL ID Identification KLEVER [id number] Description Implant Quantity 1 1 1 Implant Site RIGHT KNEE RIGHT KNEE RIGHT KNEE Implant Identification Model Number Implant [id number] Identification Serial Number Implant Identification Lot Number Implant Conformis Conformis Conformis Identification Medical Massage Therapist Name: Implant [id number] Identification Catalog Number Implant Size Implant Has an Yes Yes Yes Expiration Date Implant Expiration 12/24/21 12/24/21 12/24/21 Date Wasted Radioactive Material Time Implanted Tissue Implant Continue for Tissue Implant Documentation Tissue Identification Number Graft Prep Per Medical Massage Therapist Instructions: Tissue Preparation Method: Reconstitution Solution: Reconstitution Solution Lot Number Reconstitution Solution Expiration Date: Thawing Solution Thawing Solution Lot Number Thawing Solution Expiration Date Preparation Materials, Other Preparation Materials, Other Lot Number Preparation Materials, Other Expiration Date Tissue Prepared/Processed By Medical Massage Therapist Paperwork Completed Implant Type Comment Last Modified By: HAYDER EASON RN LONGSWORTH, GARY, RN LONGSWORTH, GARY, RN 12/23/20 08:49:46 12/23/20 08:51:06 12/23/20 08:52:02 [facility] IntraOp Implant Log Audit 12/23/20 08:52:02 Business Broker: LONGGA Modifier: LONGGA <+> 6 Implant Identification Description <+> 6 Implant Identification Serial Number <+> 6 Implant Identification Medical Massage Therapist Name: <+> 6 Implant Expiration Date <+> 6 Implant Site <+> 6 Implant Quantity <+> 6 Implant Identification Catalog Number <+> 6 Implant Type <+> 6 Implant Has an Expiration Date <+> 6 Type 12/23/20 08:51:06 Business Broker: LONGGA Modifier: LONGGA <+> 5 Implant Identification Description <+> 5 Implant Identification Serial Number <+> 5 Implant Identification Medical Massage Therapist Name: <+> 5 Implant Expiration Date <+> 5 Implant Site <+> 5 Implant Quantity <+> 5 Implant Identification Catalog Number <+> 5 Implant Type <+> 5 Implant Has an Expiration Date <+> 5 Type 12/23/20 08:49:46 Business Broker: LONGGA Modifier: LONGGA <+> 4 Implant Identification Description <+> 4 Implant Identification Serial Number <+> 4 Implant Identification Medical Massage Therapist Name: <+> 4 Implant Expiration Date <+> 4 Implant Site <+> 4 Implant Quantity <+> 4 Implant Identification Catalog Number <+> 4 Implant Type <+> 4 Implant Has an Expiration Date <+> 4 Type 12/23/20 08:48:24 Business Broker: LONGGA Modifier: LONGGA <+> 3 Implant Expiration Date 12/23/20 08:48:23 Business Broker: LONGGA Modifier: LONGGA <+> 3 Implant Identification Description <+> 3 Implant Identification Serial Number <+> 3 Implant Identification Medical Massage Therapist Name: <+> 3 Implant Site <+> 3 Implant Quantity <+> 3 Implant Identification Catalog Number <+> 3 Implant Type <+> 3 Implant Has an Expiration Date <+> 3 Type 12/23/20 08:47:19 Business Broker: LONGGA Modifier: LONGGA <+> 2 Implant Identification Description <+> 2 Implant Identification Lot Number <+> 2 Implant Identification Medical Massage Therapist Name: <+> 2 Implant Expiration Date <+> [...] w/ vancomycin 1Gm vial - epinephrine 1:100,000 [id number] 20ml vial - [id number] Combo Med List 4 - Combo Med [...] [facility] IntraOp Medication Admin Audit 12/23/20 08:39:42 Business Broker: LONGGA Modifier: LONGGA <+> 5 Medication/Irrigant <+> [...] JR, MD-ORT, SAMARIA, TARA, URSULA,PAPO, Austen, Stephan, HOUSETRAILER SERVICER/ANGER CONTROL COUNSELOR Position Verified Positioning Yes Verified by Anesthesia [...] [facility] IntraOp Surgical Procedures Audit 12/23/20 09:51:54 Business Broker: LONGGA Modifier: LONGGA 1 <*> Procedure Knee Total Joint Replacement 1 <+> Stop 12/23/20 08:21:22 Business Broker: LONGGA Modifier: LONGGA <+> 1 Start S[facility] IntraOp Temp Regulation Devices Entry 1 Temp Regulation Temperature Warm blankets Regulation Device Temperature Upper body Regulation Site Temperature SAMARIA, TARA, FISH DRESSING MACHINE FEEDER,HUMAN RESOURCES SPECIALIST Regulation Device Applied by Last Modified By: [...] S[facility] IntraOp Time Out Audit 12/23/20 08:31:31 Business Broker: YVETTE Modifier: YVETTE 1 <+> Surgeon 1 [...] Padded Under Cuff Applied By Stephan Boyce, KATHI/ANGER CONTROL COUNSELOR Times Start Time 12/23/20 08:10:00 Stop Time 12/23/20 08:59:00 Last Modified By: HAYDER EASON RN 12/23/20 09:00:54 [facility] IntraOp Tourniquet Audit 12/23/20 09:00:54 Business Broker: YVETTE Modifier: YVETTE <+> 1 Stop Time Case Comments <None> Finalized By: HAYDER EASON, RN Document Signatures Signed By: HAYDER EASON RN 12/23/20 09:59 Electronically signed by Lakesha [facility] Conversion Fire Apparatus Engineer Cerner at 07/09/2022 10:43 AM CDT documented in this encounter Plan of Treatment Not on file documented as of this encounter Visit Diagnoses Not on filedocumented in this encounter
--- OUTSIDE RECORDS SUMMARY | 2024-10-03 14:00 | XMS_ITS | Encounter Summary ---
Author Organization [employer] ([place], [place], [place], [place]) Address [address] [place] [address] Care Team Providers Care Storage Specialist Name Role Phone Unavailable Primary Care Provider Unavailabl e Encounter Details Date Type Department Care Team (Late st Contact Info) Description 12/23/2020 Transcribed Document [facility] [place] Medicine [facility] [place] [address] ProviderJaime MD [address] [place], [place] [id number] Social History Tobacco Use Types Packs/Day Years [...] Rosa Montes RN - 12/23/2020 15:54 EDT Electronically signed by Adolph Crowder Conversion Industrial Relations Officer Cerner at 07/09/2022 10:43 AM CDT documented in this encounter Plan of Treatment Not on file documented as of this encounter Visit Diagnoses Not on filedocumented in this encounter
--- OUTSIDE RECORDS SUMMARY | 2024-10-03 14:00 | XMS_ITS | Encounter Summary ---
Author Organization [employer] ([place], [place], [place], [place]) Address [address] [place] [address] Care Team Providers Care Rotary Drum Tanner Name Role Phone Unavailable Primary Care Provider Unavailabl e Encounter Details Date Type Department Care Team (Late st Contact Info) Description 12/23/2020 Transcribed Document [facility] [place] [address] ProviderJaime MD [address] [place] [id number] Social History Tobacco Use Types Packs/Day Years [...] Peripheral Nerve Block Performed by : ELICIA SETIN MD Medication Delivery Method : Continuous Peripheral [...]
--- OUTSIDE RECORDS SUMMARY | 2024-10-03 14:00 | XMS_ITS | Encounter Summary ---
Author Organization [employer] ([place], [place], [place], [place]) Address [address] [place] [address] Care Team Providers Care Paint Mixer Machine Name Role Phone Unavailable Primary Care Provider Unavailabl e Encounter Details Date Type Department Care Team (Late st Contact Info) Description 12/23/2020 Transcribed Document [facility] [place] [facility] [address] ProviderJaime MD [address] [place] [address] Social History Tobacco Use Types Packs/Day [...] 12/23/2020 7:23 EDT Electronically signed by Lakesha, [facility] Conversion Numerical Control Router Operator Cerner at 07/09/2022 10:51 AM CDT documented in this encounter Plan of Treatment Not on file documented as of this encounter Visit Diagnoses Not on filedocumented in this encounter
--- OUTSIDE RECORDS SUMMARY | 2024-10-03 14:00 | XMS_ITS | Encounter Summary ---
Author Organization [employer] ([place], [place], [place], [place]) Address [address] [place] [address] Care Team Providers Care Licensed Physical Therapist Name Role Phone Unavailable Primary Care Provider Unavailabl e Encounter Details Date Type Department Care Team (Late st Contact Info) Description 12/23/2020 Transcribed Document [facility] [place] [address] [place] [address] ProviderJaime MD [address] [place] [address] Social History Tobacco Use Types [...] Source : Measured Height Entry Format : Wetzel Height, Feet : 5 ft(Converted to: 152 cm, 60 Inch) Height, Inches : 9 Inch(Converted to: 0 ft 9 Inch, 22.86 cm) Clinical Height : 175.26 cm Weight Source : Standing scale Weight Entry Format : Wetzel Clinical Dosing Weight : 96.36 kg Weight, Pounds : 212 lb Body Surface Area (BSA) : 2.12 m2 Body Mass Index : 31.4 kg/m2 (HI) [place] Body Weight : 70 kg Georgie Boyce [...] Georgie Boyce RN - 12/23/2020 6:56 EDT [place] Suicide Severity Rating Scale (C-SSRS) CSSRS Past [...] #2 Relationship : . Primary Language : Fijian Preferred Communication Mode : Verbal Communication Barrier : None Process Stripper Needed : No Georgie Boyce RN - [...]
--- OUTSIDE RECORDS SUMMARY | 2024-10-03 14:00 | XMS_ITS | Encounter Summary ---
Author Organization [facility]) Address [address] [place] [address] Care Team Providers Care Lead Qa Analyst Name Role Phone Unavailable Primary Care Provider Unavailabl e Reason for Referral * Consultation (Routine) - Closed Specialty Diagnoses / Procedures Referred By Mitchell dela cruz Referred To Contact Neurology Diagnoses Seizure (HCC) Kirsten Gates [address] [place] [address] Phone: tel: Mac Leonard MD [address] [place] [address] Phone: tel: fax: Referral ID Status Reason Start Date Expiration Date V isits Requested Visits Authorized [id number] Closed Specialty Services Required 01/03/2024 01/02/2025 1 1 Encounter Details Date Type Department Care Team (Late st Contact Info) Description 01/03/2024 Outside Orders [facility] Neurology [address] [place] [address] [address] [place] [address] Seizure (HCC) (Primary Dx) Social History Tobacco [...]
--- OUTSIDE RECORDS SUMMARY | 2024-10-03 14:00 | XMS_ITS | Encounter Summary ---
Author Organization [facility] ([place], [place], [place], [place]) Address [address] [place] [address] Care Team Providers Care Broadcast Journalist Name Role Phone Unavailable Primary Care Provider Unavailabl e Encounter Details Date Type Department Care Team (Late st Contact Info) Description 12/23/2020 Transcribed Document [facility] [place] [facility] [place] [address] ProviderJaime MD [facility] [place], [place] [phone] Social History Tobacco Use Types Packs/Day Years [...] knee 12/23/2020 12:00 Atherosclerotic heart disease of [place] coronary artery without angina pectoris 12/23/2020 12:00 [...]
--- OUTSIDE RECORDS SUMMARY | 2024-10-03 14:00 | XMS_ITS | Encounter Summary ---
Author Organization [employer] ([place], [place], [place], [place]) Address [address] [place] [address] Care Team Providers Care Public Relations Supervisor Name Role Phone Unavailable Primary Care Provider Unavailabl e Encounter Details Date Type Department Care Team (Late st Contact Info) Description 12/23/2020 Transcribed Document [facility] [place] [address] [place] [address] ProviderJaime MD [address] [place], [place] [id number] Social History Tobacco Use Types Packs/Day Years [...] : Yes Discharge To Care Management : Home/Residential/[facility] or Self Care -01 ANGELA NGUYEN RN [...]
--- OUTSIDE RECORDS SUMMARY | 2024-10-03 14:00 | XMS_ITS | Encounter Summary ---
Author Organization [employer] ([place], [place], [place], [place]) Address [address] [place] [address] Care Team Providers Care Crusher Operator Name Role Phone Unavailable Primary Care Provider Unavailabl e Encounter Details Date Type Department Care Team (Late st Contact Info) Description 12/23/2020 Transcribed Document [facility] [place] Family Medicine [address] [place] [address] ProviderJaime MD [address] [place], [place] [phone] Social History Tobacco Use Types Packs/Day Years [...] III /Sex: 1950 Male Med Rec #: [id number] Physician: KAYLA ZIMMERMAN JR, JR, MD-ORT Financial #: [id number] Pt. Type: O Room/Bed: Admit/Disch: 12/23/20 04:16:00 - [place] [facility] [place] PostOp Case Times Entry 1 In PACU II 12/23/20 11:13:00 Ready for PACU II 12/23/20 13:49:00 Discharge Discharge from PACU 12/23/20 13:49:00 II Last Modified By: Rosa Montes RN 12/23/20 14:04:05 Finalized By: Rosa Montes, RN Document Signatures Signed By: Rosa Montes RN 12/23/20 14:04 Electronically signed by Lakesha [facility] Conversion Swamper Cerner at 07/09/2022 10:45 AM CDT documented in this encounter Plan of Treatment Not on file documented as of this encounter Visit Diagnoses Not on filedocumented in this encounter
--- OUTSIDE RECORDS SUMMARY | 2024-10-03 14:00 | XMS_ITS | Encounter Summary ---
Author Organization [employer] ([place], [place], [place], [place]) Address [address] [place] [address] Care Team Providers Care Electric Mule Operator Name Role Phone Unavailable Primary Care Provider Unavailabl e Encounter Details Date Type Department Care Team (Late st Contact Info) Description 12/23/2020 Transcribed Document [facility] [place] [address] [place] [address] ProviderJaime MD [address] [place], [place] [phone] Social History Tobacco Use Types Packs/Day Years [...] III /Sex: 1950 Male Med Rec #: [id number] Physician: KAYLA ZIMMERMAN JR, JR, MD-ORT Financial #: [id number] Pt. Type: O Room/Bed: Admit/Disch: 12/23/20 04:16:00 - Institution: [facility] OR PACU Case Times Entry 1 In PACU I 12/23/20 09:56:00 Ready for PACU 12/23/20 11:12:00 Discharge Discharge from PACU 12/23/20 11:12:00 I Last Modified By: Janene Helm RN 12/23/20 11:16:01 [facility] Main OR PACU Case Times Audit 12/23/20 11:16:01 Steam Clean Machine Operator: KINZA Modifier: KINZA 1 <*> Ready for PACU Discharge 12/23/20 10:30:00 1 <+> Discharge from PACU I Finalized By: Janene Helm RN Document Signatures Signed By: Janene Helm RN 12/23/20 11:16 documented in this encounter Plan of Treatment Not on file documented as of this encounter Visit Diagnoses Not on filedocumented in this encounter
--- OUTSIDE RECORDS SUMMARY | 2024-10-03 14:00 | XMS_ITS | Encounter Summary ---
Author Organization [email or web address] ([place], [place], [place], [place]) Address [address] [place] [address] Care Team Providers Care Thermoscrew Operator Name Role Phone Unavailable Primary Care Provider Unavailabl e Encounter Details Date Type Department Care Team (Late st Contact Info) Description 12/23/2020 Transcribed Document [facility] [place] [address] [place] [address] ProviderJaime MD [address] [place] [address] Social History Tobacco Use Types Packs/Day Years Used Date Smoking Tobacco: Never Assessed Sex and Gender Information Value Date Recorded Sex Assigned at Not on file Legal Sex Male 5:28 PM CDT Gender Identity Not on file Sexual Orientation Not on file documented as of this encounter Miscellaneous Notes * Cerner Conversion Note - Jaime ProviderMD - 12/23/2020 1:22 [place] [address] AYLEEN BLACK III :1950 Visit Time:12/23/2020 What [...] then 6 days after surgery Community Services: [facility] Home Health Services: [facility] [...] When 12/29/2020 09:45 AM EDT Where: [address] [place] [address] Medications What How Much When Instructions Next [...] or 4 frozen water bottles in the [facility] CUBE. Continue to use Incentive Spirometer [...] Barley. Bulgur wheat. Millet. Bran muffins. Popcorn. [place] wafer crackers. Vegetables Sweet potatoes. Spinach. Kale. Artichokes. Cabbage. Broccoli. Green peas. Carrots. Squash. Fruits Berries. Pears. Apples. Oranges. Avocados. Prunes and raisins. Dried figs. Meats and Other Protein Sources [place], kidney, amador, and soy beans. Split peas. [...] 1 katy has 11 g of protein. Spring seeds ??? 1 oz has 5.5 g [...] the floor. Place frequently used items in hgml-ru-mgxbo places Keep electrical cables out of the [...] ? Using the bathroom. ? Using household homicide investigator or toxic chemicals. ? Touching or taking [...] activities are safe for you. ??? Take scxo-jfp-qbzbwzk and prescription medicines only as told by [...] provider. Document Revised: 03/16/2018 Document Reviewed: 10/27/2017 [employer] Patient Education ?? 2020 [employer]. acetaminophen (oral) (a SEET a MIN oh fen) Actamin, Anacin AF, Aurophen, Bromo [place], Children's Tylenol, Mapap, M-Pap, Pharbetol, Silapap Childrens, [...] is a pain reliever and a fever high pressure boiler operator. There are many brands and forms of [...] Never mix and match dosing devices between formulations of acetaminophen. You may need to [...] may report side effects to FDA at 3-306-RHX-4350. What other drugs will affect acetaminophen? Other drugs may affect acetaminophen, including prescription and gwvn-nmb-dkgtruh medicines, vitamins, and herbal products. Tell your [...] to ensure that the information provided by [employer]. ('Multum') is accurate, up-to-date, and complete, but no guarantee is made to that effect. Drug information contained herein may be time sensitive. [employer] information has been compiled for use by healthcare practitioners and consumers in the [place] and therefore [employer] does not warrant that uses outside of the [place] are appropriate, unless specifically indicated otherwise. [employer]'s drug information does not endorse drugs, diagnose patients or recommend therapy. [facility] drug information is an informational resource designed [...] effective or appropriate for any given patient. [facility] does not assume any responsibility for any aspect of healthcare administered with the aid of information [facility] provides. The information contained herein is not intended to cover all possible uses, directions, precautions, warnings, drug interactions, allergic reactions, or adverse effects. If you have questions about the drugs you are taking, check with your doctor, nurse or pharmacist. Copyright 0496-5296 [facility]. Version: 21.. Revision Date: 11/01/2019. aspirin (oral) ( pir in) Arthritis Pain, Aspi-Cor, Aspir-Low, Nusrat Plus, Durlaza, Ecotrin, Miniprin, Vazalore What is the most important information I should know about aspirin? Aspirin can cause Tonia's syndrome, a serious and sometimes fatal condition in children. What is aspirin? Aspirin is a salicylate (rz-TSA-gm-ate) that is used to treat pain, and [...] may report side effects to FDA at 6-477-ONN-1358. What other drugs will affect aspirin? Ask [...] drugs may affect aspirin, including prescription and maln-vjx-bpgxhke medicines, vitamins, and herbal products. Not all [...] to ensure that the information provided by [employer]. ('Multum') is accurate, up-to-date, and complete, but no guarantee is made to that effect. Drug information contained herein may be time sensitive. [employer] information has been compiled for use by healthcare practitioners and consumers in the [place] and therefore [employer] does not warrant that uses outside of the [place] are appropriate, unless specifically indicated otherwise. [employer] drug information does not endorse drugs, diagnose patients or recommend therapy. [employer] drug information is an informational resource designed [...] effective or appropriate for any given patient. [employer] does not assume any responsibility for any aspect of healthcare administered with the aid of information [facility] provides. The information contained herein is not intended to cover all possible uses, directions, precautions, warnings, drug interactions, allergic reactions, or adverse effects. If you have questions about the drugs you are taking, check with your doctor, nurse or pharmacist. Copyright 3024-5277 [employer]. Version: 16.03. Revision Date: 09/21/2020. oxycodone (ox [...] The extended-release form of oxycodone is for mmkkhy-xod-qpdqd treatment of pain and should not be [...] against the law. Stop taking all other amqkkc-zcq-hjqzs opioid pain medicines when you start taking [...] may report side effects to FDA at 2-649-MDH-9286. What other drugs will affect oxycodone? You [...] may affect oxycodone. This includes prescription and fzdg-pbc-tgktxnw medicines, vitamins, and herbal products. Not all [...] to ensure that the information provided by [employer]. ('Multum') is accurate, up-to-date, and complete, but no guarantee is made to that effect. Drug information contained herein may be time sensitive. 365[employer]call information has been compiled for use by healthcare practitioners and consumers in the [place] and therefore [employer] does not warrant that uses outside of the [place] are appropriate, unless specifically indicated otherwise. [employer]call's drug information does not endorse drugs, diagnose patients or recommend therapy. [employer] drug information is an informational resource designed [...] effective or appropriate for any given patient. [employer] does not assume any responsibility for any aspect of healthcare administered with the aid of information [employer] provides. The information contained herein is not intended to cover all possible uses, directions, precautions, warnings, drug interactions, allergic reactions, or adverse effects. If you have questions about the drugs you are taking, check with your doctor, nurse or pharmacist. Copyright 9091-8110 [facility] Pins[employer]ape. Version: 14.02. Revision Date: 04/23/2020. docusate (oral/rectal) [...] may report side effects to FDA at 4-236-WJR-1224. What other drugs will affect docusate? Other drugs may affect docusate, including prescription and pvwd-jab-pdoqpst medicines, vitamins, and herbal products. Tell your [...] to ensure that the information provided by [employer]. ('Multum') is accurate, up-to-date, and complete, but no guarantee is made to that effect. Drug information contained herein may be time sensitive. 365[employer]call information has been compiled for use by healthcare practitioners and consumers in the [place] and therefore [employer]call does not warrant that uses outside of the [place] are appropriate, unless specifically indicated otherwise. [employer]'s drug information does not endorse drugs, diagnose patients or recommend therapy. [employer] drug information is an informational resource designed [...] effective or appropriate for any given patient. [employer] does not assume any responsibility for any aspect of healthcare administered with the aid of information [employer] provides. The information contained herein is not intended to cover all possible uses, directions, precautions, warnings, drug interactions, allergic reactions, or adverse effects. If you have questions about the drugs you are taking, check with your doctor, nurse or pharmacist. Copyright 7980-1867 [employer]. Version: 4.01. Revision Date: 10/01/2018. cephalexin (sef [...] may report side effects to FDA at 4-765-TYA-2598. What other drugs will affect cephalexin? Tell your doctor about all your other medicines, especially: ?? metformin; or ?? probenecid. This list is not complete. Other drugs may affect cephalexin, including prescription and jisz-gdi-wcayvci medicines, vitamins, and herbal products. Not all [...] to ensure that the information provided by [employer]. ('Multum') is accurate, up-to-date, and complete, but no guarantee is made to that effect. Drug information contained herein may be time sensitive. 365webcall information has been compiled for use by healthcare practitioners and consumers in the [place] and therefore [employer]call does not warrant that uses outside of the [place] are appropriate, unless specifically indicated otherwise. [employer]iss drug information does not endorse drugs, diagnose patients or recommend therapy. [employer] drug information is an informational resource designed [...] effective or appropriate for any given patient. [employer] does not assume any responsibility for any aspect of healthcare administered with the aid of information [employer] provides. The information contained herein is not intended to cover all possible uses, directions, precautions, warnings, drug interactions, allergic reactions, or adverse effects. If you have questions about the drugs you are taking, check with your doctor, nurse or pharmacist. Copyright 4670-4534 [employer]. Version: 10.03. Revision Date: 03/30/2020. tramadol (TRAM [...]
--- OUTSIDE RECORDS SUMMARY | 2024-10-03 14:00 | XMS_ITS | Encounter Summary ---
Author Organization [employer] ([place], [place], [place], [place]) Address [address] [place] [address] Care Team Providers Care Sales And Business Development Manager Name Role Phone Unavailable Primary Care Provider Unavailabl e Encounter Details Date Type Department Care Team (Late st Contact Info) Description 12/23/2020 Transcribed Document [facility] [place] [address] [place] [address] ProviderJaime MD [address], [place] [phone] Social History Tobacco Use Types Packs/Day Years [...] EDT Electronically signed by Adolph Crowder Conversion Superintendent Communications Cerner at 07/09/2022 10:37 AM CDT documented in this encounter Plan of Treatment Not on file documented as of this encounter Visit Diagnoses Not on filedocumented in this encounter
--- OUTSIDE RECORDS SUMMARY | 2024-10-03 14:00 | XMS_ITS | Encounter Summary ---
Author Organization [employer] ([place], [place], [place], [place]) Address [address] [place] [address] Care Team Providers Care Conditioning Machine Operator Name Role Phone Unavailable Primary Care Provider Unavailabl e Encounter Details Date Type Department Care Team (Late st Contact Info) Description 12/23/2020 Transcribed Document [facility] [place] [address] [place] [address] ProviderJaime MD [address], [place] [phone] Social History Tobacco Use Types Packs/Day Years [...] III /Sex: 1950 Male Med Rec #: [id number] Physician: KAYLA ZIMMERMAN JR, JR, MD-ORT Financial #: [id number] Pt. Type: O Room/Bed: Admit/Disch: 12/23/20 04:16:00 - [place] [facility] [place] Case Times Entry 1 In Preop 12/23/20 05:15:00 Ready for Holding n/a Room Patient Ready for 12/23/20 06:42:00 Surgery Patient Out of Preop 12/23/20 07:50:00 Patient Out of n/a Holding Room Last Modified By: Aden Boyce RN 12/23/20 07:46:17 [facility] PreOp Case Times Audit 12/23/20 07:46:17 Network Specialist: [email or web address] Modifier: ADENVERNADanny <+> 1 Patient Out of Preop Finalized By: Aden Boyce, RN Document Signatures Signed By: Aden Boyce RN 12/23/20 07:46 documented in this encounter Plan of Treatment Not on file documented as of this encounter Visit Diagnoses Not on filedocumented in this encounter
--- OUTSIDE RECORDS SUMMARY | 2024-10-03 14:00 | XMS_ITS | Encounter Summary ---
Author Organization [employer] ([place], [place], [place], [place]) Address [address] [place] [address] Care Team Providers Care Child Care Centre Manager Name Role Phone Unavailable Primary Care Provider Unavailabl e Encounter Details Date Type Department Care Team (Late st Contact Info) Description 12/23/2020 Transcribed Document [facility] [place] [facility] [place] [address] ProviderJaime MD [address] [place] [id number] Social History Tobacco Use Types Packs/Day Years [...] EDT Chloraseptic Menthol 1.4% topical spray: 5 [place], Oral, [place], Q2H, PRN for Sore Throat, Routine, Start [...] Oral, Q4H phenol 1.4% throat spray 5 [place], Oral, Q2H promethazine 25 mg tab 12.5 [...] HTN, CAD and cancer Procedure history: Cholecystectomy ([id number]). Hernia ([id number]). Rotator cuff right ([id number]). Knee left partial ([id number]). right upper thigh boil. lymph node drained from right arm pit. Colonoscopy ([id number]). EGD - Esophagogastroduodenoscopy ([id number]). heart cath. cardiac stent. Social History Patient [...] swelling, No deformity, Normal gait. Integumentary: Warm, [place], Intact, No pallor, No rash, WOUND STABLE. [...] then you may give Tylenol 650 mg PO/CT x 1. If no response in 2 [...]
--- OUTSIDE RECORDS SUMMARY | 2024-10-03 14:00 | XMS_ITS | Encounter Summary ---
Author Organization [employer] ([place], [place], [place], [place]) Address [address] [place] [address] Care Team Providers Care Pet Sitting Name Role Phone Unavailable Primary Care Provider Unavailabl e Encounter Details Date Type Department Care Team (Late st Contact Info) Description 12/23/2020 Transcribed Document [facility] [place] [address] [place] [address] ProviderJaime MD [address] [place], [place] [phone] Social History Tobacco Use Types Packs/Day Years [...] Discharge Goal : Home health care ANGELA NUGYEN RN - 12/23/2020 14:13 EDT Narrative Note [...] EDT Electronically signed by Adolph Crowder Conversion Disaster Recovery Consultant Cerner at 07/09/2022 10:43 AM CDT documented in this encounter Plan of Treatment Not on file documented as of this encounter Visit Diagnoses Not on filedocumented in this encounter
--- OUTSIDE RECORDS SUMMARY | 2024-10-03 14:00 | XMS_ITS | Encounter Summary ---
Author Organization [employer] ([place], [place], [place], [place]) Address [address] [place] [address] Care Team Providers Care Military Technology Manager Name Role Phone Unavailable Primary Care Provider Unavailabl e Encounter Details Date Type Department Care Team (Late st Contact Info) Description 12/22/2020 Transcribed Document [facility] [place] [facility] [place] [address] ProviderJaime MD [address], [place] [phone] Social History Tobacco Use Types Packs/Day Years [...] or 4 frozen water bottles in the [facility] CUBE. Continue to use Incentive Spirometer 10 [...] Barley. Bulgur wheat. Millet. Bran muffins. Popcorn. [place] wafer crackers. Vegetables Sweet potatoes. Spinach. Kale. Artichokes. Cabbage. Broccoli. Green peas. Carrots. Squash. Fruits Berries. Pears. Apples. Oranges. Avocados. Prunes and raisins. Dried figs. Meats and Other Protein Sources [place], kidney, amador, and soy beans. Split peas. [...] 1 katy has 11 g of protein. [place] seeds ??? 1 oz has 5.5 g [...] the floor. Place frequently used items in cnde-nq-zezex places Keep electrical cables out of the [...] ? Using the bathroom. ? Using household products mechanical design engineer or toxic chemicals. ? Touching or taking [...] activities are safe for you. ??? Take pyqc-rqi-ytncfzk and prescription medicines only as told by [...] provider. Document Revised: 03/16/2018 Document Reviewed: 10/27/2017 [employer] Patient Education ? 2020 [employer] Electronically signed by Adolph Crowder Conversion [place] Trimming Machine Operator Cerner at 07/09/2022 10:38 AM CDT documented in this encounter Plan of Treatment Not on file documented as of this encounter Visit Diagnoses Not on filedocumented in this encounter
--- OUTSIDE RECORDS SUMMARY | 2024-10-03 14:01 | XMS_ITS | Clinical Summary ---
Author Organization [facility] Address [address] [place] [address] Care Team Providers Care Manufacturing Inspector Name Role Phone Markus Huang BUILDING CODE INSPECTOR Primary Care Provider Allergies Active Allergy Reactions [...] Wellness (AWV) 1950 [facility]-Infant/Child/Adol SDOH Screenings 1950 CDH-ULBYV-10 Vaccine (#1) 1957 Diabetes: Dental Exam 1962 [...] Recently Relevant to Health Maintenance Results * [place] Hepatitis C Antibody (02/13/2019 6:35 PM EST) [place] Hepatitis C Ab NEGATIVE Reference Range: Negative [facility] 02/13/2019 6:35 PM EST 02/13/2019 7:06 PM EST us Major Diaz MD LAB BLOOD ORDERABLES Final Re sult [facility] from Last 3 Months or Most Recently Relevant to Health Maintenance Insurance [facility] MEDICARE Care Teams Manufacturing Inspector Relationship Specialty Start Date End Date Markus Huang APRN [address] [place] [address] [place] [address] PCP - General 10/10/22
--- NOTE | 2024-10-03 14:23 | HMH.EDGENADL ---
Discharge Plan Disposition Patient Disposition: Home, Self-Care Condition: Good Prescriptions Prescriptions: No Action famotidine 40 mg tablet 40 mg PO HS Qty: 30 2RF Rx Instructions: take in combination with the omeprazole. Take the omeprazole in the morning and the famotidine at night lidocaine 5 % ointment See Rx Instructions .ROUTE .COMPLEX Qty: 70.88 2RF Dose Instruction: APPLY TOPICALLY TWICE DAILY NEEDED FOR PAIN Rx Instructions: APPLY TOPICALLY TWICE DAILY NEEDED FOR PAIN tramadol 50 mg tablet 50 mg PO TID Mounjaro 2.5 mg/0.5 mL pen injector 2.5 mg SQ WEEKLY Qty: 2.5 0RF Rx Instructions: for 4 weeks cyclobenzaprine 5 mg tablet 5 mg PO TID PRN colestipol 1 gram tablet 1 g PO BID Qty: 180 3RF atorvastatin 40 mg tablet 40 mg PO HS 30 Days Qty: 90 2RF metformin 1,000 mg tablet 1,000 mg PO BID Qty: 60 2RF ondansetron HCl 4 mg tablet 4 mg PO Q8H PRN (Reason: nausea and vomiting) 4 Days Qty: 30 0RF mupirocin 2 % ointment 1 applic topical TID Qty: 180 12RF clopidogrel 75 mg tablet 75 mg PO DAILY diclofenac sodium 1 % gel 4 g topical QIDP PRN (Reason: CHRONIC PAIN) Rx Instructions: apply to single, ankle, foot; for foot includes sole/toes/top of foot omeprazole 40 mg capsule,delayed release(DR/EC) 40 mg PO DAILY metoprolol succinate [Toprol XL] 25 mg tablet extended release 24 hr 25 mg PO DAILY Qty: 30 0RF folic acid 1 mg tablet 1 mg PO DAILY Qty: 90 0RF tamsulosin 0.4 mg capsule 0.4 mg PO DAILY Xarelto 15 mg tablet 15 mg PO QPMWITHMEAL clindamycin HCl 150 mg capsule 450 mg PO Q8H 7 Days Qty: 63 0RF Referrals Follow up/Referrals: Columba Rodríguez APRN [Primary Care Provider, Family Practice] - See instructions Shay Biggs MD [Staff Physician, Cardiology] - See instructions Activity Restrictions/Add. Instructions Additional Instructions/Restrictions: Please return to the emergency department with any worsening signs or symptoms, please continue to use your wound care as instructed. Please follow-up with multi spindle operator and PCP in the upcoming days. Clinical Impressions Clinical Impression: Hematoma of left lower leg, Encounter for wound care Instructions Patient Instructions: How to Care for a Surgical Wound Print Language Print Language: Greenlandic Discharge ED Provider: Parth Olivarez Adult HPI General Chief complaint: Wound/Laceration Stated complaint: Left leg bleeding Time Seen by Provider: 10/03/24 13:37 Mode of Arrival: Wheelchair Source of Information: Patient Description of Symptoms (Recalled from ER Triage Doc. by RN): patient states he had a boil on his left calf that was lanced on monday and it wont stop bleeding, has not taken his blood thinner for 2 days History of Present Illness HPI narrative: 74-year-old male presents to the emergency department with bleeding to his left lower extremity, patient was seen in the emergency department on 10/01/2024, was found to have an area of fluctuance and tenderness, POCUS bedside ultrasound did show small area of fluctuance, was drained with loop incision, and to be hematoma, patient was subsequently seen in the emergency department on 707, for persistent bleeding of the left lower extremity that soaked the multiple dressings. Patient has no other acute complaints at this time except for pain around the left leg, he still endorses some bleeding of his left lower extremity, he tells me that he has been holding his anticoagulant for the last 2 days, patient has other past medical history consistent with GERD, chronic venous insufficiency, chronic lymphedema, atrial fibrillation, T2DM, coronary artery disease, CATHLEEN, BPH, hyper edema, iron deficiency anemia, hypertension. Initial triage vitals are unremarkable. Of note, patient had laboratory studies performed on 10/02/2024, hemoglobin was 9.7 at that lab draw. Onset (ago): day(s) Related Data Home Medications ?Medication ?Instructions ?Recorded ?Confirmed rivaroxaban 15 mg tablet (Xarelto) 15 mg PO QPMWITHMEAL 03/05/24 10/02/24 tamsulosin 0.4 mg capsule 0.4 mg PO DAILY 03/05/24 10/02/24 tramadol 50 mg tablet 50 mg PO TID 03/15/24 10/02/24 clopidogrel 75 mg tablet 75 mg PO DAILY 07/24/24 10/02/24 diclofenac sodium 1 % topical gel 4 g topical QIDP PRN CHRONIC PAIN 07/24/24 10/02/24 omeprazole 40 mg capsule,delayed 40 mg PO DAILY 07/30/24 10/02/24 release cyclobenzaprine 5 mg tablet 5 mg PO TID PRN 08/15/24 10/02/24 Previous Rx's ?Medication ?Instructions ?Recorded atorvastatin 40 mg tablet 40 mg PO HS 30 days #90 tabs 06/25/24 metoprolol succinate 25 mg 25 mg PO DAILY #30 tabs 08/01/24 tablet,extended release 24 hr (Toprol XL) folic acid 1 mg tablet 1 mg PO DAILY #90 tabs 08/05/24 metformin 1,000 mg tablet 1,000 mg PO BID #60 tabs 08/06/24 ondansetron HCl 4 mg tablet 4 mg PO Q8H PRN nausea and 08/07/24 vomiting 4 days #30 tabs lidocaine 5 % topical ointment See Rx Instructions .Route 08/14/24 .COMPLEX #70.88 grams colestipol 1 gram tablet 1 g PO BID #180 tabs 08/15/24 mupirocin 2 % topical ointment 1 applic topical TID #180 applic 08/26/24 famotidine 40 mg tablet 40 mg PO HS #30 tabs 09/02/24 tirzepatide 2.5 mg/0.5 mL 2.5 mg (0.5 mL) SQ WEEKLY #2.5 mL 09/10/24 subcutaneous pen injector (Mckayla) clindamycin HCl 150 mg capsule 450 mg (3 x 150 mg) PO Q8H 7 days 10/01/24 #63 caps Allergies Allergy/AdvReac Type Severity Reaction Status Date / Time Penicillins (PENICILLINS) Allergy Unknown I-ITCHING Verified 10/02/24 09:42 [facility] Disclaimer: The information contained in this section may have been updated after the patient was seen, as this information can be updated by other users. Medical History Acute nontraumatic kidney injury Hypomagnesemia Elevated brain natriuretic peptide (BNP) level Dyspnea Elevated troponin Chronic GERD Orthostatic hypotension Dizziness Atypical angina Cellulitis of right leg Vocal cord edema Ringing in right ear Chronic hoarseness Globus sensation Vertigo Recurrent vertigo upon turning head toward the left associated with tinnitus. Diverticulitis IBS (irritable bowel syndrome) Latent tuberculosis Rheumatoid arthritis Viral gastroenteritis Laceration of face Patient is not currently bleeding NSTEMI (non-ST elevated myocardial infarction) Atrial flutter On Xarelto Asbestos exposure Tachycardia Abnormal ECG Preoperative testing Episodic confusion He was referred to epilepsy program, EMU but has decided to cancel the appointment Allergic rhinitis Dyspnea on exertion Latent tuberculosis by blood test Seen by pulmonology at [facility] and prescribed INH, RFP, B6 but he never took the medicine as prescribed Restrictive lung disease Left sided abdominal pain Left shoulder strain Left groin pain Claustrophobia Chronic cough Cognitive complaints 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, word finding difficulty Edema of both lower extremities Decreased pedal pulses Non-healing ulcer of foot Right 3rd distal tip DFU Decreased ROM of right shoulder Right shoulder pain Right shoulder injury Pes planus of both feet Skin lesion Impotence Low back pain Left against medical advice Memory loss Chronic SI joint pain Radiculopathy Neuropathic pain Leg pain, posterior Kidney stone Ingrown toenail of right foot Pre-ulcerative calluses Splinter of toe of left foot Pain of left great toe Cellulitis of great toe of right foot Acute bacterial bronchitis Incurved toenail Diabetes mellitus HA1c- 7.3% 06/06/24 Onychomycosis Pain in both feet Callus of foot Diabetic foot ulcer Acute febrile illness SIRS (systemic inflammatory response syndrome) Left against medical advice Lower extremity edema Epistaxis Encounter for pre-operative cardiovascular clearance Sepsis Urinary incontinence Weakness Cellulitis, leg Obesity (BMI 30-39.9) Acute delirium Cellulitis Severe sepsis SIRS (systemic inflammatory response syndrome) Physical deconditioning Bacterial pneumonia Hypokalemia Bronchitis due to COVID-19 virus Pneumonia due to COVID-19 virus COVID-19 virus infection Exposure to COVID-19 virus Viral syndrome Acute bronchitis Hematuria Kidney stone on right side Multiple renal cysts Cough Diastolic dysfunction Mental status change resolved HTN (hypertension) Dyspnea SOB (shortness of breath) HHD (hypertensive heart disease) Pre-op evaluation Microalbuminuria Enlarged prostate History of IBS Diabetes Acquired lymphedema Surgical History History of cardiac cath History of total right knee replacement History of rotator cuff surgery History of coronary artery stent placement History of cholecystectomy Hx of total knee arthroplasty Family History Other Cancer Cerebral palsy Dementia Diabetes Social History (Reviewed 07/09/25 @ 09:39 by ROSALIA Sanchez Smoking Status: Never smoker alcohol intake: never counseling provided: none substance use type: denies use current occupational status: employed and retired Travel in the last 8 weeks?: None household members: spouse housing: house caffeine: Yes Have you lived/traveled outside US in past 30 days?: No Contact w/someone who lives/traveled outside US past 30 days?: No Exposure to someone with infectious disease in past 14 days?: No Do you have a fever (greater than 100.4 F or 38 C)?: No Have you tested positive for COVID-19?: No Exposed to someone with COVID-19 in past 14 days?: No Do you have a sore throat?: No Do you have a cough?: No Do you have any weakness?: No Do you have any diarrhea?: No Are you experiencing any unusual bleeding?: No Do you have any muscle aches/pain?: No Do you have any abdominal pain?: No Are you experiencing loss of taste or smell?: No Other Medical History Have you received the Flu Vaccine for this season: No Have you received the Pneumonia Vaccine: Yes ROS Obtained: Yes All systems reviewed & no additional complaints except as documented Physical Exam General General appearance: alert and in no apparent distress Head Head exam: atraumatic and normocephalic Eye Eye exam: Present PERRL and EOMI ENT ENT exam: Present mucous membranes moist Neck Neck exam: Present normal inspection Chest Chest inspection: Present normal inspection and symmetric chest wall rise Respiratory Respiratory exam: Present normal lung sounds bilaterally; Absent respiratory distress Cardiovascular Cardiovascular exam: Present regular rate and normal rhythm Abdominal Exam Abdominal exam: Present soft; Absent tenderness, guarding, rebound or rigidity Extremities Exam Extremities exam: Present normal inspection Neurological Exam Neurological exam: Present alert and oriented X3 Psychiatric Psychiatric exam: Present normal affect Skin Skin exam: Present warm, dry and other (Chronic bilateral lymphedema, no redness, no erythema, hematoma formation has decreased since last visit, incision sites look to be healing, no active sanguinous drainage/bleeding, no evidence any wound dehiscence or drainage currently.) Medical Decision Making Medical Records Medical records reviewed: Yes I reviewed the patient's medical records. Screening: Per USPSTF and CDC recommendations, given the prevalence of disease in our region, it is our hospital?s policy to screen for HIV and viral Hepatitis for all patients aged 18 and over and those with ongoing risk factors. Jevon Inquiry Pt receiving controlled substance: No Jevon was queried for this patient: No Vital Signs: 10/03/24 13:22 10/03/24 13:30 10/03/24 13:38 Temperature 98.2 F Temperature Source Oral Pulse Rate 86 88 Pulse Rate [Right Radial] 66 Respiratory Rate 15 18 Blood Pressure 120/63 120/63 Blood Pressure [Right Arm] 120/71 Blood Pressure Mean 82 Blood Pressure Mean [Right Arm] 87 Blood Pressure Source [Right Arm] Automatic Cuff Blood Pressure Position [Right Arm] Sitting 02 Sat by Pulse Oximetry 96 98 99 Oxygen Delivery Method Room Air Room Air 10/03/24 13:46 10/03/24 14:01 Temperature Temperature Source Pulse Rate 83 88 Pulse Rate [Right Radial] Respiratory Rate 18 18 Blood Pressure 110/88 116/65 Blood Pressure [Right Arm] Blood Pressure Mean 93 82 Blood Pressure Mean [Right Arm] Blood Pressure Source [Right Arm] Blood Pressure Position [Right Arm] 02 Sat by Pulse Oximetry 100 99 Oxygen Delivery Method Medical Decision Narrative: 74-year-old male presents emergency department with left lower extremity bleeding, differential diagnose include but not limited to, post incisional bleeding, chronic lymphedema, encounter for wound care among others. Discussed patient case with attending physician Dr.Anthony Walsh wound care consult for the patient, the patient's area of prior incision, is not actively draining at the bedside, no active bleeding, patient hematoma has improved, wound looks to be epithelialized, would not be applicable at this time for primary intention/closure due to patient's history of lymphedema, hematoma and comorbidities. Wound care saw and evaluated the patient, patient given wound care supplies, and his wound was redressed, hemostasis achieved, patient is otherwise hemodynamically stable throughout his time in the emergency department, patient was given very strict ED return precautions, patient will follow-up with his PCP and multi spindle operator in the upcoming days, continue all medication as prescribed. Patient family voiced understanding and agreed with current treatment plan/discharge plan. Critical Care Critical Care Time Critical Care Time: No
--- NOTE | 2024-10-03 14:29 | PC.NURSE ---
Called Wound Care to let them know of wound care consult
--- NOTE | 2024-10-03 15:17 | PC.NURSE ---
Wound Care at bedside.
== END 2024-10-03 15:48 | disposition home or self-care (01) ==
PROVIDERS: Emergency Provider Student in an Organized Health Care Education/Training Program; PCP Family Medicine
DX: S85.912A Laceration of unspecified blood vessel at lower leg level, left leg, initial encounter (principal); Z51.89 Encounter for other specified aftercare; E11.9 Type 2 diabetes mellitus without complications; G47.30 Sleep apnea, unspecified; I89.0 Lymphedema, not elsewhere classified
CPT/HCPCS: 99282

== ENCOUNTER 2024-10-04 10:18 | Outpatient (CLI) | payer MEDICARE, SELFPAY ==
--- OUTSIDE RECORDS SUMMARY | 2024-10-04 10:20 | XMS_ITS | Encounter Summary ---
Author Organization [employer] ([place], [place], [place], [place]) Address [address] [place] [address] Care Team Providers Care Marine Photographer Name Role Phone Unavailable Primary Care Provider Unavailabl e Encounter Details Date Type Department Care Team (Late st Contact Info) Description 12/24/2020 Transcribed Document [facility] [place] [facility] [place] [address] ProviderJaime MD [address] [place] [id number] Social History Tobacco Use Types Packs/Day Years [...] right total knee replacement, final condition improved. /[id number] MD RAO Gibbs Jr/DIANNA / RAO / MODL /[id number] documented in this encounter Plan of Treatment Not on file documented as of this encounter Visit Diagnoses Not on filedocumented in this encounter
--- OUTSIDE RECORDS SUMMARY | 2024-10-04 10:20 | XMS_ITS | Encounter Summary ---
Author Organization [employer] ([place], [place], [place], [place]) Address [address] [place] [address] Care Team Providers Care Harp Action Assembler Name Role Phone Unavailable Primary Care Provider Unavailabl e Encounter Details Date Type Department Care Team (Late st Contact Info) Description 12/09/2020 Transcribed Document [facility] [place] [address] [place] [address] ProviderJaime MD [address], [place] [id number] Social History Tobacco Use Types Packs/Day Years [...] : Standing scale Weight Entry Format : [place] Clinical Dosing Weight : 95.91 kg Weight, Pounds : 211 lb Body Surface Area (BSA) : 2.12 m2 Body Mass Index : 31.2 kg/m2 (HI) [place] Body Weight : 70 kg Michaela Alvarez Rn - 12/09/2020 16:02 EDT Height Source : Stated Height Entry Format : [place] Michaela Alvarez Rn - 12/09/2020 15:57 EDT [...] Michaela Alvarez Rn - 12/09/2020 16:02 EDT [place] Suicide Severity Rating Scale (C-SSRS) CSSRS Past [...] Mode : Verbal Communication Barrier : None Rehabilitation Case Coordinator Needed : No Michaela Alvarez Rn - [...]
--- OUTSIDE RECORDS SUMMARY | 2024-10-04 10:20 | XMS_ITS | Clinical Summary ---
Author Organization [employer] ([place], [place], [place], [place]) Address [address] [place], [place] [id number] Care Team Providers Care Site Supervising Technical Operator Name Role Phone Unavailable Primary Care [...] Date Milton rded Speak language other than Japanese at home Not on file 01/23/2024 Want [...] Plan of Treatment Not on file Insurance [facility] MEDICARE ADVANTAGE
--- OUTSIDE RECORDS SUMMARY | 2024-10-04 10:20 | XMS_ITS | Clinical Summary ---
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 R76.12 (ICD-10-CM ) 09/18 Active 09/18 Imelda Bunny 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 gamma interferon antigen response without active tuberculosis Edema, limb 734809719 (SNOMED CT) 09/21 Resolved 09/21 Imelda Hollis Edema of extremity Right Leg Edema, limb 976697386 (SNOMED CT) 09/21 Removed 09/21 Jer Zhang [...] DAY 2 THROUGH DAY 5 12/19 azithromycin 95286199807 Cinda Rolando BENZONATATE 100 MG CAPS Take 1 capsule by mouth three times a day as needed 12/19 BENZONATATE Cinda Fu TRIAZOLAM 0.25 MG TABS Take 1 tablet by mouth 12/19 triazolam 75096037997 Cinda Fu LORAZEPAM 1 MG TABS Take 1 tablet 12/19 lorazepam 83928517980 Cinda Fu LEVOFLOXACIN 750 MG TABS Take 1 tablet by mouth once a day 12/19 levofloxacin 93509153261 Cinda Rolando LOSARTAN POTASSIUM 50 MG TABS one tab oral daily 12/19 losartan 38295574748 Cinda Rolando NYSTATIN 643850 UNIT/GM OINT Apply to skin once a day 12/19 nystatin 90582026958 Cinda Fu RIFAMPIN 300 MG CAPS Take 2 by mouth once a day 12/19 rifampin 98841202079 Cinda Rolando CYCLOBENZAPRINE HCL 5 MG TABS one tab oral daily 12/19 cyclobenzaprine 75683339584 Cinda Fu ISONIAZID 300 MG TABS Take 1 tablet by mouth once a day 12/19 isoniazid 05958382663 Cinda PROMETHAZINE-CODEI NE 6.25-10 MG/5ML SYRP Take 5 ml by mouth twice a day 12/19 promethazine-code ine 23416504079 Cinda Fu DICYCLOMINE HCL 10 MG CAPS 1 cap oral twice a day 12/19 dicyclomine 65759938465 Cinda Fu CLOPIDOGREL BISULFATE 75 MG TABS Take 1 tablet by mouth once a day 12/19 clopidogrel 35094202373 Cinda Marshall HYDROCOD POLST-CPM POLST ER 10-8 MG/5ML ORAL SUSPENSION EXTENDED RELEASE Take 1 teaspoon by mouth twice a day 12/19 HYDROCOD POLST-CPM POLST ER 10-8 MG/5ML ORAL SUSPENSION EXTENDED RELEASE Cinda Marshall PLAVIX 75 MG TABS once a day clopidogrel 7849018 7190 Cinda Marshall TRIAZOLAM 0.25 MG TABS Take 1 tablet by mouth 09/24 triazolam 18612783720 Melvin Hartman ISONIAZID 300 MG TABS Take 1 tablet by mouth once a day 12/19 isoniazid 13463196520 Melvin Hartman CLOPIDOGREL BISULFATE 75 MG TABS Take 1 tablet by mouth once a day 12/19 clopidogrel 36642723718 Melvin Hartman LORAZEPAM 1 MG TABS Take 1 tablet 12/19 lorazepam 73488267798 Melvin Hartman NYSTATIN 567016 UNIT/GM OINT Apply to skin once a day 12/19 nystatin 93909838425 Melvin Hartman HYDROCOD POLST-CPM POLST ER 10-8 MG/5ML ORAL SUSPENSION EXTENDED RELEASE Take 1 teaspoon by mouth twice a day 12/19 HYDROCOD POLST-CPM POLST ER 10-8 MG/5ML ORAL SUSPENSION EXTENDED RELEASE Melvin Hartman AZITHROMYCIN 250 MG TABS TAKE 2 TABLETS BY MOUTH ON DAY 1 AND THEN TAKE 1 TABLET BY MOUTH ONCE A DAY ON DAY 2 THROUGH DAY 5 09/24 azithromycin 93825762135 Melvin Hartman RIFAMPIN 300 MG CAPS Take 2 by mouth once a day 09/24 rifampin 20158112050 Melvin Hartman PROMETHAZINE-CODEI NE 6.25-10 MG/5ML SYRP Take 5 ml by mouth twice a day 05/09 promethazine-code ine 38794227152 Melvin Hartman BENZONATATE 100 MG CAPS Take 1 capsule by mouth three times a day as needed 12/19 BENZONATATE Melvin Hartman LEVOFLOXACIN 750 MG TABS Take 1 tablet by mouth once a day 12/19 levofloxacin 50137515806 Melvin Hartman DICYCLOMINE HCL 10 MG CAPS 1 cap oral twice a day 09/24 dicyclomine 04245416449 Melvin Hartman SIMVASTATIN 20 MG TABS one tab oral daily simvastatin 90949998210 Melvin Hartman LOSARTAN POTASSIUM 50 MG TABS one tab oral daily 09/24 losartan 58981830566 Melvin Hartman CYCLOBENZAPRINE HCL 5 MG TABS one tab oral daily 09/24 cyclobenzaprine 29373794047 Melvin Hartman TRAMADOL HCL 50 MG TABS one tab every 6 hours prn tramadol 69834484674 Melvin Hartman METFORMIN HCL 500 MG TABS one tab oral twice a day metformin 64548177558 Melvin Hartman RIFAMPIN 300 MG CAPS take 2 po daily 09/24 RIFAMPIN 39094210799 Jer Zhang MD ISONIAZID 300 MG TABS Take 1 tablet by mouth daily 12/16 ISONIAZID 12342174639 Jer Zhang MD AZITHROMYCIN 250 MG TABS TAKE 2 TABLETS BY MOUTH ON DAY 1 AND THEN TAKE 1 TABLET BY MOUTH ONCE A DAY ON DAY 2 THROUGH DAY 5 09/24 AZITHROMYCIN 59521083047 Gerald Ocasio BENZONATATE 100 MG CAPS TAKE 1 CAPSULE BY MOUTH THREE TIMES DAILY FOR 10 DAYS NEEDED FOR COUGH 12/16 BENZONATATE 30574690660 Gerald Ocasio PROMETHAZINE-CODEI NE 6.25-10 MG/5ML SOLN TAKE 5 ML BY MOUTH TWICE DAILY 12/16 PROMETHAZINE-CODE INE 42851608052 Gerald Ocasio LEVOFLOXACIN 750 MG TABS TAKE 1 TABLET BY MOUTH ONCE DAILY FOR 8 DAYS 12/16 LEVOFLOXACIN 31603454832 Gerald Ocasio CLOPIDOGREL BISULFATE 75 MG TABS TAKE 1 TABLET BY MOUTH ONCE DAILY 12/16 CLOPIDOGREL BISULFATE 32700699217 Gerald D NYSTATIN 902841 UNIT/GM OINT APPLY OINTMENT TOPICALLY ONCE DAILY 12/16 NYSTATIN 40777201151 Gerald D HYDROCOD POLST-CPM POLST ER 10-8 MG/5ML ORAL SUSPENSION EXTENDED RELEASE TAKE 1 TEASPOONFUL (5 ML) BY MOUTH TWICE DAILY MAY CAUSE DROWSINESS 12/16 HYDROCOD POLST-CHLORPHEN POLST 64277487462 Gerald D TRIAZOLAM 0.25 MG TABS TAKE 1 TABLET BY MOUTH 30 MINUTES PRIOR TO MRI ON 09/24 TRIAZOLAM 16180066031 Gerald D LORAZEPAM 1 MG TABS TAKE 1 TABLET 2 HOURS BEFORE MRI FOR ANXIETY 12/16 LORAZEPAM 09238246943 Gerald D Medications Administered No information available. 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
--- OUTSIDE RECORDS SUMMARY | 2024-10-04 10:21 | XMS_ITS | Encounter Summary ---
Author Organization [employer] ([place], [place], [place], [place]) Address [address] [place] [address] Care Team Providers Care Life Enrichment Specialist Name Role Phone Unavailable Primary Care Provider Unavailabl e Encounter Details Date Type Department Care Team (Late st Contact Info) Description 12/23/2020 Transcribed Document [facility] [place] [address] [place] [address] ProviderJaime MD [address] [place] [address] Social History Tobacco Use Types Packs/Day Years Used Date Smoking Tobacco: Never Assessed Sex and Gender Information Value Date Recorded Sex Assigned at Not on file Legal Sex Male 5:28 PM CDT Gender Identity Not on file Sexual Orientation Not on file documented as of this encounter Miscellaneous Notes * Cerner Conversion Note - Jaime ProviderMD - 12/23/2020 1:22 [place] [address] AYLEEN BLACK III :1950 Visit Time:12/23/2020 What [...] then 6 days after surgery Community Services: [facility] Physical Therapy Home Health Services: [...] Where: [address] [facility] [address] [place] [address] Medications What How Much When Instructions Next [...] or 4 frozen water bottles in the [facility] CUBE. Continue to use Incentive Spirometer 10 [...] Barley. Bulgur wheat. Millet. Bran muffins. Popcorn. [place] wafer crackers. Vegetables Sweet potatoes. Spinach. Kale. Artichokes. Cabbage. Broccoli. Green peas. Carrots. Squash. Fruits Berries. Pears. Apples. Oranges. Avocados. Prunes and raisins. Dried figs. Meats and Other Protein Sources Wolverine, kidney, amador, and soy beans. Split peas. [...] 1 katy has 11 g of protein. Gazelle seeds ??? 1 oz has 5.5 g [...] the floor. Place frequently used items in kssy-ls-vqxap places Keep electrical cables out of the [...] ? Using the bathroom. ? Using household mobile marketing specialist or toxic chemicals. ? Touching or taking [...] activities are safe for you. ??? Take ueuh-fbt-mqcfbpz and prescription medicines only as told by [...] provider. Document Revised: 03/16/2018 Document Reviewed: 10/27/2017 Milk Patient Education ?? 2020 [employer]. acetaminophen (oral) (a SEET a MIN oh fen) Actamin, Anacin AF, Aurophen, Bromo [place], Children's Tylenol, Mapap, M-Pap, Pharbetol, Silapap Childrens, [...] is a pain reliever and a fever dry room operator. There are many brands and forms [...] may report side effects to FDA at 0-156-XUB-9429. What other drugs will affect acetaminophen? Other drugs may affect acetaminophen, including prescription and bbag-gfr-ajekffp medicines, vitamins, and herbal products. Tell your [...] to ensure that the information provided by Ongo. ('Multum') is accurate, up-to-date, and complete, but no guarantee is made to that effect. Drug information contained herein may be time sensitive. Medefy information has been compiled for use by healthcare practitioners and consumers in the [place] and therefore Medefy does not warrant that uses outside of the [place] are appropriate, unless specifically indicated otherwise. Medefy's drug information does not endorse drugs, diagnose patients or recommend therapy. [facility] drug information is an informational resource designed [...] with your doctor, nurse or pharmacist. Copyright 9315-5438 [facility] [employer]. Version: 21.. Revision Date: 11/01/2019. aspirin (oral) ( pir in) Arthritis Pain, Aspi-Cor, Aspir-Low, Nusrat Plus, Durlaza, Ecotrin, Miniprin, Vazalore What is the most important information I should know about aspirin? Aspirin can cause Tonia's syndrome, a serious and sometimes fatal condition in children. What is aspirin? Aspirin is a salicylate (yn-TCL-ha-ate) that is used to treat pain, and [...] may report side effects to FDA at 4-501-KLD-7444. What other drugs will affect aspirin? Ask [...] drugs may affect aspirin, including prescription and voqq-clq-ecbdexv medicines, vitamins, and herbal products. Not all [...] to ensure that the information provided by Ongo. ('Multum') is accurate, up-to-date, and complete, but no guarantee is made to that effect. Drug information contained herein may be time sensitive. Medefy information has been compiled for use by healthcare practitioners and consumers in the [place] and therefore Medefy does not warrant that uses outside of the [place] are appropriate, unless specifically indicated otherwise. [employer] drug information does not endorse drugs, diagnose patients or recommend therapy. Offer[employer]ops drug information is an informational resource designed [...] effective or appropriate for any given patient. Medefy does not assume any responsibility for any aspect of healthcare administered with the aid of information [facility] provides. The information contained herein is not intended to cover all possible uses, directions, precautions, warnings, drug interactions, allergic reactions, or adverse effects. If you have questions about the drugs you are taking, check with your doctor, nurse or pharmacist. Copyright 0406-5997 [employer]. Version: 16.03. Revision Date: 09/21/2020. oxycodone (ox [...] The extended-release form of oxycodone is for tmzjjy-vsq-nthho treatment of pain and should not be [...] against the law. Stop taking all other zinujw-efp-rbpjz opioid pain medicines when you start taking [...] may report side effects to FDA at 3-419-EKL-4650. What other drugs will affect oxycodone? You [...] may affect oxycodone. This includes prescription and zctt-agh-wbtfjyi medicines, vitamins, and herbal products. Not all [...] to ensure that the information provided by Ongo. ('Multum') is accurate, up-to-date, and complete, but no guarantee is made to that effect. Drug information contained herein may be time sensitive. Medefy information has been compiled for use by healthcare practitioners and consumers in the [place] and therefore Medefy does not warrant that uses outside of the [place] are appropriate, unless specifically indicated otherwise. Medefy's drug information does not endorse drugs, diagnose patients or recommend therapy. [employer]ops drug information is an informational resource designed [...] effective or appropriate for any given patient. [employer] does not assume any responsibility for any aspect of healthcare administered with the aid of information Medefy provides. The information contained herein is not intended to cover all possible uses, directions, precautions, warnings, drug interactions, allergic reactions, or adverse effects. If you have questions about the drugs you are taking, check with your doctor, nurse or pharmacist. Copyright 9397-0322 [facility] Agent Video Intelligence. Version: 14.02. Revision Date: 04/23/2020. docusate (oral/rectal) [...] may report side effects to FDA at 8-798-IZQ-2706. What other drugs will affect docusate? Other drugs may affect docusate, including prescription and qaqw-nwc-gptxuzj medicines, vitamins, and herbal products. Tell your [...] to ensure that the information provided by Ongo. ('Multum') is accurate, up-to-date, and complete, but no guarantee is made to that effect. Drug information contained herein may be time sensitive. Medefy information has been compiled for use by healthcare practitioners and consumers in the [place] and therefore Medefy does not warrant that uses outside of the [place] are appropriate, unless specifically indicated otherwise. Medefy's drug information does not endorse drugs, diagnose patients or recommend therapy. Offer[employer]ops drug information is an informational resource designed [...] effective or appropriate for any given patient. Medefy does not assume any responsibility for any aspect of healthcare administered with the aid of information Medefy provides. The information contained herein is not intended to cover all possible uses, directions, precautions, warnings, drug interactions, allergic reactions, or adverse effects. If you have questions about the drugs you are taking, check with your doctor, nurse or pharmacist. Copyright 6843-7880 O[employer]o. Version: 4.01. Revision Date: 10/01/2018. cephalexin (sef [...] may report side effects to FDA at 8-312-WGA-9883. What other drugs will affect cephalexin? Tell your doctor about all your other medicines, especially: ?? metformin; or ?? probenecid. This list is not complete. Other drugs may affect cephalexin, including prescription and tgwe-syh-eocaoib medicines, vitamins, and herbal products. Not all [...] to ensure that the information provided by Ongo. ('Multum') is accurate, up-to-date, and complete, but no guarantee is made to that effect. Drug information contained herein may be time sensitive. Medefy information has been compiled for use by healthcare practitioners and consumers in the [place] and therefore Medefy does not warrant that uses outside of the [place] are appropriate, unless specifically indicated otherwise. Offerpops drug information does not endorse drugs, diagnose patients or recommend therapy. Offer[employer]ops drug information is an informational resource designed [...] effective or appropriate for any given patient. Medefy does not assume any responsibility for any aspect of healthcare administered with the aid of information Medefy provides. The information contained herein is not intended to cover all possible uses, directions, precautions, warnings, drug interactions, allergic reactions, or adverse effects. If you have questions about the drugs you are taking, check with your doctor, nurse or pharmacist. Copyright 1132-4837 Ongo. Version: 10.03. Revision Date: 03/30/2020. tramadol (TRAM [...] tramadol? Electronically signed by Adolph Crowder Conversion Regional Climate Change Analyst Romulo at 07/09/2022 10:47 AM CDT documented in this encounter Plan of Treatment Not on file documented as of this encounter Visit Diagnoses Not on filedocumented in this encounter
--- OUTSIDE RECORDS SUMMARY | 2024-10-04 10:21 | XMS_ITS | Encounter Summary ---
Author Organization [employer] ([place], [place], [place], [place]) Address [address] [place] [address] Care Team Providers Care Cabinetmaker Apprentice Name Role Phone Unavailable Primary Care Provider Unavailabl e Encounter Details Date Type Department Care Team (Late st Contact Info) Description 12/08/2020 Transcribed Document [facility] [place] [address] [place] [address] ProviderJaime MD [address], [place] [address] Social History Tobacco Use Types Packs/Day Years [...] Health Plan: [employer] MEDICARE REPL Policy Number: [id number] Authorization Number: Insurance Primary Name : [employer] MEDICARE REPL Policy Number: [id number] Authorization Status-Primary : Opo status approv Authorized Service Begin Date-Primary : 12/16/2020 EDT Observation Authorization Nbr-Primary : [id number] Authorization Comments-Primary : [employer] Medicare approved for outpt per availity Historical Authorization Comments-Primary : No Authorization Comments Found ROLANDO TABARES RN-Utilization Review - 12/08/2020 15:21 EDT Electronically signed by Lakesha [facility] Conversion Finish Mill Operator Cerner at 07/09/2022 10:42 AM CDT documented in this encounter Plan of Treatment Not on file documented as of this encounter Visit Diagnoses Not on filedocumented in this encounter
--- OUTSIDE RECORDS SUMMARY | 2024-10-04 10:21 | XMS_ITS | Encounter Summary ---
Author Organization [employer] ([place], [place], [place], [place]) Address [address] [place] [address] Care Team Providers Care Communication Signals Intelligence Name Role Phone Unavailable Primary Care Provider Unavailabl e Encounter Details Date Type Department Care Team (Late st Contact Info) Description 12/16/2020 Transcribed Document [facility] [place] [facility] [place] [facility] [place] [address] ProviderJaime MD [address] [place], [place] [address] Social History Tobacco Use Types Packs/Day Years [...]
--- OUTSIDE RECORDS SUMMARY | 2024-10-04 10:21 | XMS_ITS | Encounter Summary ---
Author Organization [employer] ([place], [place], [place], [place]) Address [address] [place] [address] Care Team Providers Care Four Slide Operator Name Role Phone Unavailable Primary Care Provider Unavailabl e Encounter Details Date Type Department Care Team (Late st Contact Info) Description 12/23/2020 Transcribed Document [facility] [place] [address] [place] [address] ProviderJaime MD [address], [place] [id number] Social History Tobacco Use Types Packs/Day Years [...]
--- OUTSIDE RECORDS SUMMARY | 2024-10-04 10:21 | XMS_ITS | Referral Summary ---
Author Organization [employer] ([place], [place], [place], [place]) Address [address] [place], [place] [address] Care Team Providers Care Prevention Rn Name Role Phone Unavailable Primary Care [...] of Treatment Not on file Insurance [facility] [address]
--- OUTSIDE RECORDS SUMMARY | 2024-10-04 10:21 | XMS_ITS | Encounter Summary ---
Author Organization [employer] ([place], [place], [place], [place]) Address [address] [place] [address] Care Team Providers Care Glue Line Operator Name Role Phone Unavailable Primary Care Provider Unavailabl e Encounter Details Date Type Department Care Team (Late st Contact Info) Description 12/23/2020 Transcribed Document [facility] [place] [address] [place] [address] ProviderJaime MD [address] [place], [place] [address] Social History Tobacco Use Types Packs/Day Years [...] : Yes Discharge To Care Management : Home/Residential/Halfway or Self Care -01 ANGELA NGUYEN RN [...]
--- OUTSIDE RECORDS SUMMARY | 2024-10-04 10:21 | XMS_ITS | Encounter Summary ---
Author Organization [employer] ([place], [place], [place], [place]) Address [address] [place] [address] Care Team Providers Care Digital Strategist Name Role Phone Unavailable Primary Care Provider Unavailabl e Encounter Details Date Type Department Care Team (Late st Contact Info) Description 12/16/2020 Transcribed Document [facility] [place] [address] [place] [address] ProviderJaime MD [address] [place], [place] [id number] Social History Tobacco Use Types Packs/Day Years [...] Source : Stated Height Entry Format : [place] Height, Feet : 5 ft(Converted to: 152 cm, 60 Inch) Height, Inches : 9 Inch(Converted to: 0 ft 9 Inch, 22.86 cm) Clinical Height : 175.26 cm Weight Source : Standing scale Weight Entry Format : [place] Clinical Dosing Weight : 96.93 kg Weight, Pounds : 213 lb Weight, Ounces : 4 oz Body Surface Area (BSA) : 2.12 m2 Body Mass Index : 31.6 kg/m2 (HI) [place] Body Weight : 70 kg CIARA WOODS [...] CIARA WOODS RN - 12/16/2020 6:51 EDT [place] Suicide Severity Rating Scale (C-SSRS) CSSRS Past [...] Obtained From : Patient Primary Language : Martiniquais Preferred Communication Mode : Verbal Communication Barrier : None Creping Machine Operator Needed : No CIARA WOODS [...] form. Electronically signed by Interface, Adolph Conversion Drafter Directional Survey Cerner at 07/09/2022 10:37 AM CDT documented in this encounter Plan of Treatment Not on file documented as of this encounter Visit Diagnoses Not on filedocumented in this encounter
--- OUTSIDE RECORDS SUMMARY | 2024-10-04 10:21 | XMS_ITS | Encounter Summary ---
Author Organization [employer] ([place], [place], [place], [place]) Address [address] [place] [address] Care Team Providers Care Sheet Rock Applicator Name Role Phone Unavailable Primary Care Provider Unavailabl e Encounter Details Date Type Department Care Team (Late st Contact Info) Description 12/23/2020 Transcribed Document [facility] [place] [address] [place] [address] ProviderJaime MD [address] [place] [address] Social History Tobacco Use Types [...] Source : Measured Height Entry Format : [place] Height, Feet : 5 ft(Converted to: 152 cm, 60 Inch) Height, Inches : 9 Inch(Converted to: 0 ft 9 Inch, 22.86 cm) Clinical Height : 175.26 cm Weight Source : Standing scale Weight Entry Format : [place]ver Clinical Dosing Weight : 96.36 kg Weight, Pounds : 212 lb Body Surface Area (BSA) : 2.12 m2 Body Mass Index : 31.4 kg/m2 (HI) [place] Body Weight : 70 kg Georgie Boyce [...] Georgie Boyce RN - 12/23/2020 6:56 EDT [place] Suicide Severity Rating Scale (C-SSRS) CSSRS Past [...] Mode : Verbal Communication Barrier : None Computer Terminal Operator Needed : No Georgie Boyce RN - [...]
--- OUTSIDE RECORDS SUMMARY | 2024-10-04 10:21 | XMS_ITS | Encounter Summary ---
Author Organization [employer] ([place], [place], [place], [place]) Address [address] [place] [address] Care Team Providers Care Terminal Makeup Operator Name Role Phone Unavailable Primary Care Provider Unavailabl e Encounter Details Date Type Department Care Team (Late st Contact Info) Description 12/23/2020 Transcribed Document [facility] [place] [address] [place] [address] ProviderJaime MD [address] [place], [place] [id number] Social History Tobacco Use Types Packs/Day Years [...] III /Sex: 1950 Male Med Rec #: [id number] Physician: KAYLA ZIMMERMAN JR, JR, MD-ORT Financial #: [id number] Pt. Type: O Room/Bed: Admit/Disch: 12/23/20 04:16:00 - [place] [facility] [place] PostOp Case Times Entry 1 In PACU II 12/23/20 11:13:00 Ready for PACU II 12/23/20 13:49:00 Discharge Discharge from PACU 12/23/20 13:49:00 II Last Modified By: Rosa Montes RN 12/23/20 14:04:05 Finalized By: Rosa Montes, RN Document Signatures Signed By: Rosa Montes RN 12/23/20 14:04 Electronically signed by Lakesha [facility] Conversion Software Administrator Cerner at 07/09/2022 10:45 AM CDT documented in this encounter Plan of Treatment Not on file documented as of this encounter Visit Diagnoses Not on filedocumented in this encounter
--- OUTSIDE RECORDS SUMMARY | 2024-10-04 10:21 | XMS_ITS | Encounter Summary ---
Author Organization [employer] ([place], [place], [place], [place]) Address [address] [place] [address] Care Team Providers Care Rubber Molder Name Role Phone Unavailable Primary Care Provider Unavailabl e Encounter Details Date Type Department Care Team (Late st Contact Info) Description 12/23/2020 Transcribed Document [facility] [place] [facility] [place] [address] ProviderJaime MD [address] [place] [id number] Social History Tobacco Use Types Packs/Day Years Used Date Smoking Tobacco: Never Assessed Sex and Gender Information Value Date Recorded Sex Assigned at Not on file Legal Sex Male 5:28 PM CDT Gender Identity Not on file Sexual Orientation Not on file documented as of this encounter Miscellaneous Notes * Cerner Conversion Note - Jaime lFores MD - 12/23/2020 12:26 PM CDT Patient: YALEEN BLACK III Age: 70 years Sex: Male [...] EDT Chloraseptic Menthol 1.4% topical spray: 5 [place], Oral, [place], Q2H, PRN for Sore Throat, Routine, Start [...] Oral, Q4H phenol 1.4% throat spray 5 [place], Oral, Q2H promethazine 25 mg tab 12.5 [...] HTN, CAD and cancer Procedure history: Cholecystectomy (16013581). Hernia ([id number]). Rotator cuff right ([id number]). Knee left partial ([id number]). right upper thigh boil. lymph node drained from right arm pit. Colonoscopy ([id number]). EGD - Esophagogastroduodenoscopy ([id number]). heart cath. cardiac stent. Social History Patient [...] swelling, No deformity, Normal gait. Integumentary: Warm, [place], Intact, No pallor, No rash, WOUND STABLE. [...] then you may give Tylenol 650 mg PO/HI x 1. If no response in 2 [...]
--- OUTSIDE RECORDS SUMMARY | 2024-10-04 10:21 | XMS_ITS | Encounter Summary ---
Author Organization [employer] ([place], [place], [place], [place]) Address [address] [place] [address] Care Team Providers Care Canal Superintendent Name Role Phone Unavailable Primary Care Provider Unavailabl e Encounter Details Date Type Department Care Team (Late st Contact Info) Description 12/23/2020 Transcribed Document [facility] [place] [facility] [place] [address] ProviderJaime MD [address] [place], [place] [address] Social History Tobacco Use Types Packs/Day Years [...]
--- OUTSIDE RECORDS SUMMARY | 2024-10-04 10:21 | XMS_ITS | Encounter Summary ---
Author Organization [employer] ([place], [place], [place], [place]) Address [address] [place] [address] Care Team Providers Care Ornamental Iron Worker Helper Name Role Phone Unavailable Primary Care Provider Unavailabl e Encounter Details Date Type Department Care Team (Late st Contact Info) Description 12/23/2020 Transcribed Document [facility] [place] [facility] [place] [address] ProviderJaime MD [facility] [place], [place] [address] Social History Tobacco Use Types Packs/Day Years [...] knee 12/23/2020 12:[address] [place] coronary artery without angina pectoris 12/23/2020 12:00 [...]
--- OUTSIDE RECORDS SUMMARY | 2024-10-04 10:21 | XMS_ITS | Clinical Summary ---
Author Organization [facility] Address [address] [place] [address] Care Team Providers Care Exhibit Builder Name Role Phone Markus Huang MARINE STEAM FITTER Primary Care Provider [phone] Allergies Active Allergy Reactions Criticality Noted Date [...] Wellness (AWV) 1950 UKY-Infant/Child/Adol SDOH Screenings 1950 [id number] Vaccine (#1) 1957 Diabetes: Dental Exam 1962 [...] Recently Relevant to Health Maintenance Results * [place] Hepatitis C Antibody (02/13/2019 6:35 PM EST) [place] Hepatitis C Ab NEGATIVE Reference Range: Negative [facility] 02/13/2019 6:35 PM EST 02/13/2019 7:06 PM EST us Major Diaz MD LAB BLOOD ORDERABLES Final Re sult [facility] from Last 3 Months or Most Recently Relevant to Health Maintenance Insurance [facility] MEDICARE Care Teams Exhibit Builder Relationship Specialty Start Date End Date Markus Huang APRN [address] [place] [address] [place] [address] PCP - General 10/10/22
--- OUTSIDE RECORDS SUMMARY | 2024-10-04 10:21 | XMS_ITS | Encounter Summary ---
Author Organization [employer] ([place], [place], [place], [place]) Address [address] [place] [address] Care Team Providers Care Elementary Science Teacher Name Role Phone Unavailable Primary Care Provider Unavailabl e Encounter Details Date Type Department Care Team (Late st Contact Info) Description 12/23/2020 Transcribed Document [facility] [place] [facility] [place] [address] ProviderJaime MD [address] [place] [id number] Social History Tobacco Use Types Packs/Day Years [...] to Post Acute Providers : Yes [facility] Quality Web Info Shared w Pt/Fam [...] EDT Electronically signed by Adolph Crowder Conversion Automatic Quilling Machine Operator Romulo at 07/09/2022 10:41 AM CDT documented in this encounter Plan of Treatment Not on file documented as of this encounter Visit Diagnoses Not on filedocumented in this encounter
--- OUTSIDE RECORDS SUMMARY | 2024-10-04 10:21 | XMS_ITS | Encounter Summary ---
Author Organization [employer] ([place], [place], [place], [place]) Address [address] [place] [address] Care Team Providers Care Bomb Squad Officer Name Role Phone Unavailable Primary Care Provider Unavailabl e Encounter Details Date Type Department Care Team (Late st Contact Info) Description 12/09/2020 Transcribed Document [facility] [place] [address] [place] [address] ProviderJaime MD [address] [place], [place] [address] Social History Tobacco Use Types Packs/Day Years [...]
--- OUTSIDE RECORDS SUMMARY | 2024-10-04 10:21 | XMS_ITS | Encounter Summary ---
Author Organization [employer] ([place], [place], [place], [place]) Address [address] [place] [address] Care Team Providers Care Etcher Enameling Name Role Phone Unavailable Primary Care Provider Unavailabl e Encounter Details Date Type Department Care Team (Late st Contact Info) Description 12/23/2020 Transcribed Document [facility] [place] [address] [place] [address] ProviderJaime MD [address] [place], [place] [id number] Social History Tobacco Use Types Packs/Day Years [...] knee 12/23/2020 12:00 Atherosclerotic heart disease of [place] coronary artery without angina pectoris 12/23/2020 12:00 [...]
--- OUTSIDE RECORDS SUMMARY | 2024-10-04 10:21 | XMS_ITS | Encounter Summary ---
Author Organization [employer] ([place], [place], [place], [place]) Address [address] [place] [address] Care Team Providers Care Chainer Name Role Phone Unavailable Primary Care Provider Unavailabl e Encounter Details Date Type Department Care Team (Late st Contact Info) Description 12/22/2020 Transcribed Document [facility] [place] Medicine [facility] [place] [address] ProviderJaime MD [address] [place], [place] [phone] Social History Tobacco Use Types Packs/Day Years [...] or 4 frozen water bottles in the [facility] CUBE. Continue to use Incentive Spirometer 10 [...] Barley. Bulgur wheat. Millet. Bran muffins. Popcorn. [place] wafer crackers. Vegetables Sweet potatoes. Spinach. Kale. Artichokes. Cabbage. Broccoli. Green peas. Carrots. Squash. Fruits Berries. Pears. Apples. Oranges. Avocados. Prunes and raisins. Dried figs. Meats and Other Protein Sources Brewer, kidney, amador, and soy beans. Split peas. [...] 1 katy has 11 g of protein. [place] seeds ??? 1 oz has 5.5 g [...] the floor. Place frequently used items in wfxe-sv-bewmc places Keep electrical cables out of the [...] ? Using the bathroom. ? Using household tank truck operator or toxic chemicals. ? Touching or [...] activities are safe for you. ??? Take moyr-bzt-cxqvast and prescription medicines only as told by [...] provider. Document Revised: 03/16/2018 Document Reviewed: 10/27/2017 [employer] Patient Education ? 2020 [employer] documented in this encounter Plan of Treatment Not on file documented as of this encounter Visit Diagnoses Not on filedocumented in this encounter
--- OUTSIDE RECORDS SUMMARY | 2024-10-04 10:21 | XMS_ITS | Encounter Summary ---
Author Organization [employer] ([place], [place], [place], [place]) Address [address] [place] [address] Care Team Providers Care City Sanitarian Name Role Phone Unavailable Primary Care Provider Unavailabl e Encounter Details Date Type Department Care Team (Late st Contact Info) Description 12/23/2020 Transcribed Document [facility] [place] Medicine Count includes the [facility] [place] [address] ProviderJaime MD [address] [place], [place] [phone] Social History Tobacco Use Types Packs/Day Years [...] III /Sex: 1950 Male Med Rec #: [id number] Physician: KAYLA ZIMMERMAN JR, JR, MD-ORT Financial #: [id number] Pt. Type: O Room/Bed: Admit/Disch: 12/23/20 04:16:00 - [place] [facility] [place]Op Case Attendance Entry 1 Entry 2 Entry 3 Case Attendee KAYLA ZIMMERMAN JR, JR, TARA MERA APRN,HAYDER KOROMA, LUCIE CHANCEORT Role Performed Surgeon/Proceduralist, BIOMETRICS CONSULTANT/Nurse Parts Technician Strategic Advisor, First First Time In 12/23/20 07:51:00 12/23/20 [...] 5 Entry 6 Case Attendee Stephan Boyce, COMPUTER SYSTEMS SOFTWARE ARCHITECT/INVASIVE CARDIOLOGIST GET ARI[address] ST Peel, Polly, Scub Tech Role Performed Transformer Stock Clerk, First Scrub, First Scrub, Second Time In [...] Case Attendee OTHER, ATTENDEE #1 NGOZI PETTY, BIOMETRICS CONSULTANT Role Performed Vendor BIOMETRICS CONSULTANT/Nurse Parts Technician Time In 12/23/20 07:51:00 12/23/20 08:29:00 Time Out 12/23/20 09:55:00 12/23/20 08:41:00 Procedure Knee Total Joint Knee Total Joint Replacement Replacement Other Attendee [place] BIOMETRICS CONSULTANT BREAK Superficial Wound Closed By: Thom Modified By: HAYDER EASON RN LONGSWORTH, GARY, LUCIE 12/23/20 07:19:17 12/23/20 08:29:30 [facility] IntraOp Case Attendance Audit 12/23/20 09:55:23 Refrigeration Plant Cork Insulator: LONGGA Modifier: LONGGA 1 <+> Time Out [...] Procedure Knee Total Joint Replacement 12/23/20 08:48:55 Refrigeration Plant Cork Insulator: LONGGA Modifier: LONGGA 8 <+> Time Out 8 <*> Procedure Knee Total Joint Replacement 12/23/20 08:29:30 Refrigeration Plant Cork Insulator: LONGGA Modifier: LONGGA <+> 8 Case Attendee <+> 8 Role Performed <+> 8 Time In <+> 8 Procedure <+> 8 Other Attendee 12/23/20 08:25:18 Refrigeration Plant Cork Insulator: LONGGA Modifier: LONGGA 1 <+> Time In [...] Procedure Knee Total Joint Replacement 12/23/20 07:25:50 Refrigeration Plant Cork Insulator: LONGGA Modifier: LONGGA <+> 1 Procedure 2 [...] [facility] IntraOp Case Times Audit 12/23/20 09:55:21 Refrigeration Plant Cork Insulator: LONGGA Modifier: LONGGA <+> 1 Out Room Time <+> 1 Stop Time <+> 1 Stop Time 12/23/20 08:21:13 Refrigeration Plant Cork Insulator: LONGGA Modifier: LONGGA <+> 1 Start Time [...] S[facility] IntraOp Counts Verification Audit 12/23/20 09:01:12 Refrigeration Plant Cork Insulator: LONGGA Modifier: LONGGA <+> 2 Procedure <+> [...] HAYDER EASON, LUCIE, Accompanied by TARA MERA APRN,BIOMETRICS CONSULTANT Last Modified By: HAYDER EASON RN 12/23/20 09:08:10 [facility] IntraOp Dressing and Packing Entry 1 Type Dressing Location RIGHT KNEE Wound Dressing Item Papo Supplemental Limb immobilizer, Cold Applications pack Applied By Stephan Boyce, COMPUTER SYSTEMS SOFTWARE ARCHITECT/INVASIVE CARDIOLOGIST Other Comments JONATHAN WOUND DRESSING Last Modified [...] RN 12/23/20 07:24:40 [facility] IntraOp General Case Seismic Engineer 1 Case Information OR OR 02 SJE Case Level 1 Room Verified Yes Wound Class I - Clean Specialty Orthopedic Anesthesia Type General ASA Class 3 Diagnosis Preop Diagnosis DEGENERATIVE JOINT DISEASE, RIGHT KNEE Postop Same As Preop Yes Postop Diagnosis DEGENERATIVE JOINT DISEASE, RIGHT KNEE Last Modified By: HAYDER EASON RN 12/23/20 08:27:58 S[facility] IntraOp General Case Data Audit 12/23/20 08:27:58 Refrigeration Plant Cork Insulator: YVETTE Modifier: LONGGA 1 <*> OR OR [...] PATELLA ITOTAL JIGS CR ITOTAL ID Identification [id number] Description Implant Quantity 2 1 1 Implant Site RIGHT KNEE RIGHT KNEE RIGHT KNEE Implant Identification Model Number Implant [id number] Identification Serial Number Implant [id number] Identification Lot Number Implant Blake:Blake Conformis Conformis Identification Orthopaedics Preventive Maintenance Engineer Name: Implant [id number] Identification Catalog Number Implant Size Implant Has an Yes Yes Yes Expiration Date Implant Expiration 01/24/22 09/23/22 12/24/21 Date Wasted Radioactive Material Time Implanted Tissue Implant Continue for Tissue Implant Documentation Tissue Identification Number Graft Prep Per Preventive Maintenance Engineer Instructions: Tissue Preparation Method: Reconstitution Solution: Reconstitution Solution Lot Number Reconstitution Solution Expiration Date: Thawing Solution Thawing Solution Lot Number Thawing Solution Expiration Date Preparation Materials, Other Preparation Materials, Other Lot Number Preparation Materials, Other Expiration Date Tissue Prepared/Processed By Preventive Maintenance Engineer Paperwork Completed Implant Type Comment Last Modified [...] KT CR FULL ITOTAL ID Identification KLEVER [id number] Description Implant Quantity 1 1 1 Implant Site RIGHT KNEE RIGHT KNEE RIGHT KNEE Implant Identification Model Number Implant [id number] Identification Serial Number Implant Identification Lot Number Implant Conformis Conformis Conformis Identification Preventive Maintenance Engineer Name: Implant [id number] Identification Catalog Number Implant Size Implant Has an Yes Yes Yes Expiration Date Implant Expiration 12/24/21 12/24/21 12/24/21 Date Wasted Radioactive Material Time Implanted Tissue Implant Continue for Tissue Implant Documentation Tissue Identification Number Graft Prep Per Preventive Maintenance Engineer Instructions: Tissue Preparation Method: Reconstitution Solution: Reconstitution Solution Lot Number Reconstitution Solution Expiration Date: Thawing Solution Thawing Solution Lot Number Thawing Solution Expiration Date Preparation Materials, Other Preparation Materials, Other Lot Number Preparation Materials, Other Expiration Date Tissue Prepared/Processed By Preventive Maintenance Engineer Paperwork Completed Implant Type Comment Last Modified By: HAYDER EASON RN LONGSWORTH, GARY, RN LONGSWORTH, GARY, RN 12/23/20 08:49:46 12/23/20 08:51:06 12/23/20 08:52:02 [facility] IntraOp Implant Log Audit 12/23/20 08:52:02 Refrigeration Plant Cork Insulator: LONGGA Modifier: LONGGA <+> 6 Implant Identification Description <+> 6 Implant Identification Serial Number <+> 6 Implant Identification Preventive Maintenance Engineer Name: <+> 6 Implant Expiration Date <+> 6 Implant Site <+> 6 Implant Quantity <+> 6 Implant Identification Catalog Number <+> 6 Implant Type <+> 6 Implant Has an Expiration Date <+> 6 Type 12/23/20 08:51:06 Refrigeration Plant Cork Insulator: LONGGA Modifier: LONGGA <+> 5 Implant Identification Description <+> 5 Implant Identification Serial Number <+> 5 Implant Identification Preventive Maintenance Engineer Name: <+> 5 Implant Expiration Date <+> 5 Implant Site <+> 5 Implant Quantity <+> 5 Implant Identification Catalog Number <+> 5 Implant Type <+> 5 Implant Has an Expiration Date <+> 5 Type 12/23/20 08:49:46 Refrigeration Plant Cork Insulator: LONGGA Modifier: LONGGA <+> 4 Implant Identification Description <+> 4 Implant Identification Serial Number <+> 4 Implant Identification Preventive Maintenance Engineer Name: <+> 4 Implant Expiration Date <+> 4 Implant Site <+> 4 Implant Quantity <+> 4 Implant Identification Catalog Number <+> 4 Implant Type <+> 4 Implant Has an Expiration Date <+> 4 Type 12/23/20 08:48:24 Refrigeration Plant Cork Insulator: LONGGA Modifier: LONGGA <+> 3 Implant Expiration Date 12/23/20 08:48:23 Refrigeration Plant Cork Insulator: LONGGA Modifier: LONGGA <+> 3 Implant Identification Description <+> 3 Implant Identification Serial Number <+> 3 Implant Identification Preventive Maintenance Engineer Name: <+> 3 Implant Site <+> 3 Implant Quantity <+> 3 Implant Identification Catalog Number <+> 3 Implant Type <+> 3 Implant Has an Expiration Date <+> 3 Type 12/23/20 08:47:19 Refrigeration Plant Cork Insulator: LONGGA Modifier: LONGGA <+> 2 Implant Identification Description <+> 2 Implant Identification Lot Number <+> 2 Implant Identification Preventive Maintenance Engineer Name: <+> 2 Implant Expiration Date <+> [...] w/ vancomycin 1Gm vial - epinephrine 1:100,000 [id number] 20ml vial - [id number] Combo Med List 4 - Combo Med [...] S[facility] IntraOp Medication Admin Audit 12/23/20 08:39:42 Refrigeration Plant Cork Insulator: LONGGA Modifier: LONGGA <+> 5 Medication/Irrigant <+> [...] JR, MD-ORT, SAMARIA, TARA, URSULA,PAPO, Austen, Stephan, COMPUTER SYSTEMS SOFTWARE ARCHITECT/INVASIVE CARDIOLOGIST Position Verified Positioning Yes Verified by Anesthesia [...] SJE IntraOp Surgical Procedures Audit 12/23/20 09:51:54 Refrigeration Plant Cork Insulator: LONGGA Modifier: LONGGA 1 <*> Procedure Knee Total Joint Replacement 1 <+> Stop 12/23/20 08:21:22 Refrigeration Plant Cork Insulator: LONGGA Modifier: LONGGA <+> 1 Start S[facility] IntraOp Temp Regulation Devices Entry 1 Temp Regulation Temperature Warm blankets Regulation Device Temperature Upper body Regulation Site Temperature SAMARIA, TARA, INSURANCE LOSS CONTROL SURVEYOR,BIOMETRICS CONSULTANT Regulation Device Applied by Last Modified By: [...] SJE IntraOp Time Out Audit 12/23/20 08:31:31 Refrigeration Plant Cork Insulator: YVETTE Modifier: YVETTE 1 <+> Surgeon 1 [...] Padded Under Cuff Applied By Stephan Boyce, KATHI/INVASIVE CARDIOLOGIST Times Start Time 12/23/20 08:10:00 Stop Time 12/23/20 08:59:00 Last Modified By: HAYDER EASON RN 12/23/20 09:00:54 S[facility] IntraOp Tourniquet Audit 12/23/20 09:00:54 Refrigeration Plant Cork Insulator: YVETTE Modifier: YVETTE <+> 1 Stop Time Case Comments <None> Finalized By: HAYDER EASON, RN Document Signatures Signed By: HAYDER EASON RN 12/23/20 09:59 documented in this encounter Plan of Treatment Not on file documented as of this encounter Visit Diagnoses Not on filedocumented in this encounter
--- OUTSIDE RECORDS SUMMARY | 2024-10-04 10:21 | XMS_ITS | Encounter Summary ---
Author Organization [employer] ([place], [place], [place], [place]) Address [address] [place] [address] Care Team Providers Care Sole Inker Name Role Phone Unavailable Primary Care Provider Unavailabl e Encounter Details Date Type Department Care Team (Late st Contact Info) Description 12/23/2020 Transcribed Document [facility] [place] [address] [place] [address] ProviderJaime MD [address], [place] [phone] Social History Tobacco Use Types Packs/Day Years [...] III /Sex: 1950 Male Med Rec #: [id number] Physician: KAYLA ZIMMERMAN JR, JR, MD-ORT Financial #: [id number] Pt. Type: O Room/Bed: Admit/Disch: 12/23/20 04:16:00 - Institution: [facility] OR PACU Case Times Entry 1 In PACU I 12/23/20 09:56:00 Ready for PACU 12/23/20 11:12:00 Discharge Discharge from PACU 12/23/20 11:12:00 I Last Modified By: Janene Helm RN 12/23/20 11:16:01 S[facility] Main OR PACU Case Times Audit 12/23/20 11:16:01 Offshoring Manager: KINZA Modifier: KINZA 1 <*> Ready for PACU Discharge 12/23/20 10:30:00 1 <+> Discharge from PACU I Finalized By: Janene Helm RN Document Signatures Signed By: Janene Helm RN 12/23/20 11:16 documented in this encounter Plan of Treatment Not on file documented as of this encounter Visit Diagnoses Not on filedocumented in this encounter
--- OUTSIDE RECORDS SUMMARY | 2024-10-04 10:21 | XMS_ITS | Encounter Summary ---
Author Organization [employer] includes the [facility] ([place], [place], [place], [place]) Address [address] [place] [address] Care Team Providers Care Mold Stamper Name Role Phone Unavailable Primary Care Provider Unavailabl e Reason for Referral * Consultation (Routine) - Closed Specialty Diagnoses / Procedures Referred By Mitchell dela cruz Referred To Contact Neurology Diagnoses Seizure (HCC) Kirsten Gates [address] [place] [address] Phone: tel: Mac Leonard MD [address] [facility] [address] [place] [address] Phone: tel: fax: Referral ID Status Reason Start Date Expiration Date V isits Requested Visits Authorized [id number] Closed Specialty Services Required 01/03/2024 01/02/2025 1 1 Encounter Details Date Type Department Care Team (Late st Contact Info) Description 01/03/2024 Outside Orders [facility] Neurology [address] [facility] [address] [place] [address] [address] [place] [address] Seizure (HCC) (Primary Dx) Social History Tobacco [...]
--- OUTSIDE RECORDS SUMMARY | 2024-10-04 10:21 | XMS_ITS | Encounter Summary ---
Author Organization [employer] ([place], [place], [place], [place]) Address [address] [place] [address] Care Team Providers Care Camp Tender Name Role Phone Unavailable Primary Care Provider Unavailabl e Encounter Details Date Type Department Care Team (Late st Contact Info) Description 12/23/2020 Transcribed Document [facility] [place] [facility] [place] [address] ProviderJaime MD [address] [place] [address] Social History Tobacco Use Types Packs/Day [...] 12/23/2020 7:23 EDT Electronically signed by Lakesha, [facility] Conversion Bankruptcy Manager Cerner at 07/09/2022 10:51 AM CDT documented in this encounter Plan of Treatment Not on file documented as of this encounter Visit Diagnoses Not on filedocumented in this encounter
--- OUTSIDE RECORDS SUMMARY | 2024-10-04 10:21 | XMS_ITS | Encounter Summary ---
Author Organization [employer] ([place], [place], [place], [place]) Address [address] [place] [address] Care Team Providers Care Putty Tinter Maker Name Role Phone Unavailable Primary Care Provider Unavailabl e Encounter Details Date Type Department Care Team (Late st Contact Info) Description 12/23/2020 Transcribed Document [facility] [place] [facility] [address] ProviderJaime MD [address] [place] [phone] Social History Tobacco Use Types Packs/Day Years [...]
--- OUTSIDE RECORDS SUMMARY | 2024-10-04 10:21 | XMS_ITS | Encounter Summary ---
Author Organization [employer] ([place], [place], [place], [place]) Address [address] [place] [address] Care Team Providers Care Histology Teacher Name Role Phone Unavailable Primary Care Provider Unavailabl e Encounter Details Date Type Department Care Team (Late st Contact Info) Description 12/23/2020 Transcribed Document [facility] [place] [address] [place] [address] ProviderJaime MD [address], [place] [phone] Social History Tobacco Use Types Packs/Day Years [...] 12/23/2020 12:43 EDT by ADI DAUGHERTY MD-INT PRNAAV Indication of use for OOCS : Acute [...]
--- OUTSIDE RECORDS SUMMARY | 2024-10-04 10:21 | XMS_ITS | Encounter Summary ---
Author Organization [employer] ([place], [place], [place], [place]) Address [address] [place] [address] Care Team Providers Care Hazardous Waste Material Technician Name Role Phone Unavailable Primary Care Provider Unavailabl e Encounter Details Date Type Department Care Team (Late st Contact Info) Description 12/23/2020 Transcribed Document [facility] [place] Medicine [address] [place] [address] ProviderJaime MD [address], [place] [phone] Social History Tobacco Use Types Packs/Day Years [...] III /Sex: 1950 Male Med Rec #: [id number] Physician: KAYLA ZIMMERMAN JR, JR, MD-ORT Financial #: [id number] Pt. Type: O Room/Bed: Admit/Disch: 12/23/20 04:16:00 - Institution: [facility] [place] PreOp Case Times Entry 1 In Preop 12/23/20 05:15:00 Ready for Holding n/a Room Patient Ready for 12/23/20 06:42:00 Surgery Patient Out of Preop 12/23/20 07:50:00 Patient Out of n/a Holding Room Last Modified By: Aden Boyce RN 12/23/20 07:46:17 S[facility] PreOp Case Times Audit 12/23/20 07:46:17 Wool Mixer: BLANKDanny Modifier: ADENVERNADanny <+> 1 Patient Out of Preop Finalized By: Aden Boyce, RN Document Signatures Signed By: Aden Boyce RN 12/23/20 07:46 documented in this encounter Plan of Treatment Not on file documented as of this encounter Visit Diagnoses Not on filedocumented in this encounter
--- OUTSIDE RECORDS SUMMARY | 2024-10-04 10:21 | XMS_ITS | Encounter Summary ---
Author Organization [employer] ([place], [place], [place], [place]) Address [address] [place] [address] Care Team Providers Care Merchandising Manager Name Role Phone Unavailable Primary Care Provider Unavailabl e Encounter Details Date Type Department Care Team (Late st Contact Info) Description 12/09/2020 Transcribed Document [facility] [place] [facility] [address] ProviderJaime MD [address] [place] [phone] Social History Tobacco Use Types Packs/Day Years [...] Appearance CLEAR2 12/09/2020 16:01 EDT Urine Specific [place] *1.026 12/09/2020 16:01 EDT Urine pH Dipstick [...]
--- NOTE | 2024-10-04 10:30 | FL_ITS ---
FINAL REPORT CLINICAL HISTORY: 291.23 dap 0.21 fluoro time soa FINDINGS: SNIFF TEST HISTORY: Shortness of breath. FINDINGS: A sniff test was performed. No paradoxical movement was noted with either diaphragm. There was proper excursion with inspiration. Fluoroscopy time: 21 seconds Fluoro dose: 291.23 DAP in uGym2 impression: Unremarkable sniff test. Films reviewed , interpreted and dictated by Dr. Mcdermott. Transcribed by Juancarlos Chappell PA-C. Reviewed, Interpreted and Dictated by Mavis Mcdermott MD Transcribed by KAYLIE Garcia Authenticated and [facility]
--- NOTE | 2024-10-04 11:00 | CT_ITS ---
FINAL REPORT TECHNIQUE: Axial CT without contrast. High resolution technique was utilized with inspiration and expiration on the supine images and inspiration on the prone images. CLINICAL HISTORY: .dyspnea, interstitial lung disease COMPARISON: 07/23/2024 FINDINGS: CT CHEST WITHOUT CONTRAST There is mild interstitial prominence with thickening of the subpleural interstitial septum symmetrically. There is no bronchiectasis. There are no areas of groundglass opacity. Pattern may be seen with UIP or early IPF. There is no evidence of mass or consolidation. There is no adenopathy or effusion. Upper abdomen shows indeterminate left renal masses, some of which are hyperdense. IMPRESSION: Mild interstitial lung disease which may be seen with UIP early IPF. Indeterminate left renal masses. This study was performed using automated techniques to achieve radiation exposure as low as reasonably achievable Reviewed, Interpreted and Dictated by Mavis Mcdermott MD Transcribed by Shahla Iglesias Authenticated and [facility]
== END 2024-10-04 23:59 | disposition home or self-care (01) ==
LOC: RAD 10:19
PROVIDERS: PCP Family Medicine; Visit Provider Internal Medicine Pulmonary Disease
DX: J84.9 Interstitial pulmonary disease, unspecified (principal); N28.89 Other specified disorders of kidney and ureter
CPT/HCPCS: 71250; 76000

== ENCOUNTER 2024-10-11 11:58 | Outpatient (CLI) | payer MEDICARE, SELFPAY ==
--- OUTSIDE RECORDS SUMMARY | 2024-10-11 12:01 | XMS_ITS | Clinical Summary ---
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 R76.12 (ICD-10-CM ) 09/18 Active 09/18 Imelda Bunny 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 gamma interferon antigen response without active tuberculosis Edema, limb 822610052 (SNOMED CT) 09/21 Resolved 09/21 Imelda Hollis Edema of extremity Right Leg Edema, limb 253751935 (SNOMED CT) 09/21 Removed 09/21 Jer Zhang [...] DAY 2 THROUGH DAY 5 12/19 azithromycin 87187834467 Cinda Rolando BENZONATATE 100 MG CAPS Take 1 capsule by mouth three times a day as needed 12/19 BENZONATATE Cinda Fu TRIAZOLAM 0.25 MG TABS Take 1 tablet by mouth 12/19 triazolam 13159943698 Cinda Fu LORAZEPAM 1 MG TABS Take 1 tablet 12/19 lorazepam 53393471059 Cinda Fu LEVOFLOXACIN 750 MG TABS Take 1 tablet by mouth once a day 12/19 levofloxacin 51124212707 Cinda Rolando LOSARTAN POTASSIUM 50 MG TABS one tab oral daily 12/19 losartan 48437120977 Cinda Rolando NYSTATIN 954698 UNIT/GM OINT Apply to skin once a day 12/19 nystatin 94206341192 Cinda Fu RIFAMPIN 300 MG CAPS Take 2 by mouth once a day 12/19 rifampin 94476997667 Cinda Rolando CYCLOBENZAPRINE HCL 5 MG TABS one tab oral daily 12/19 cyclobenzaprine 81415013328 Cinda Fu ISONIAZID 300 MG TABS Take 1 tablet by mouth once a day 12/19 isoniazid 16051866307 Cinda PROMETHAZINE-CODEI NE 6.25-10 MG/5ML SYRP Take 5 ml by mouth twice a day 12/19 promethazine-code ine 79571022042 Cinda Fu DICYCLOMINE HCL 10 MG CAPS 1 cap oral twice a day 12/19 dicyclomine 83839989771 Cinda Fu CLOPIDOGREL BISULFATE 75 MG TABS Take 1 tablet by mouth once a day 12/19 clopidogrel 06404769405 Cinda Marshall HYDROCOD POLST-CPM POLST ER 10-8 MG/5ML ORAL SUSPENSION EXTENDED RELEASE Take 1 teaspoon by mouth twice a day 12/19 HYDROCOD POLST-CPM POLST ER 10-8 MG/5ML ORAL SUSPENSION EXTENDED RELEASE Cinda Marshall PLAVIX 75 MG TABS once a day clopidogrel 1907317 7190 Cinda Marshall TRIAZOLAM 0.25 MG TABS Take 1 tablet by mouth 09/24 triazolam 01440987686 Melvin Hartman ISONIAZID 300 MG TABS Take 1 tablet by mouth once a day 12/19 isoniazid 83597650179 Melvin Hartman CLOPIDOGREL BISULFATE 75 MG TABS Take 1 tablet by mouth once a day 12/19 clopidogrel 09805726725 Melvin Hartman LORAZEPAM 1 MG TABS Take 1 tablet 12/19 lorazepam 40038959184 Melvin Hartman NYSTATIN 020977 UNIT/GM OINT Apply to skin once a day 12/19 nystatin 39913685713 Melvin Hartman HYDROCOD POLST-CPM POLST ER 10-8 MG/5ML ORAL SUSPENSION EXTENDED RELEASE Take 1 teaspoon by mouth twice a day 12/19 HYDROCOD POLST-CPM POLST ER 10-8 MG/5ML ORAL SUSPENSION EXTENDED RELEASE Melvin Hartman AZITHROMYCIN 250 MG TABS TAKE 2 TABLETS BY MOUTH ON DAY 1 AND THEN TAKE 1 TABLET BY MOUTH ONCE A DAY ON DAY 2 THROUGH DAY 5 09/24 azithromycin 34206020597 Melvin Hartman RIFAMPIN 300 MG CAPS Take 2 by mouth once a day 09/24 rifampin 48691949282 Melvin Hartman PROMETHAZINE-CODEI NE 6.25-10 MG/5ML SYRP Take 5 ml by mouth twice a day 05/09 promethazine-code ine 97538992050 Melvin aHrtman BENZONATATE 100 MG CAPS Take 1 capsule by mouth three times a day as needed 12/19 BENZONATATE Melvin Hartman LEVOFLOXACIN 750 MG TABS Take 1 tablet by mouth once a day 12/19 levofloxacin 56546614280 Melvin Hartman DICYCLOMINE HCL 10 MG CAPS 1 cap oral twice a day 09/24 dicyclomine 68577549901 Melvin Hartman SIMVASTATIN 20 MG TABS one tab oral daily simvastatin 07796269779 Melvin Hartman LOSARTAN POTASSIUM 50 MG TABS one tab oral daily 09/24 losartan 59449758601 Melvin Hartman CYCLOBENZAPRINE HCL 5 MG TABS one tab oral daily 09/24 cyclobenzaprine 70015412615 Melvin Hartman TRAMADOL HCL 50 MG TABS one tab every 6 hours prn tramadol 54431179896 Melvin Hartman METFORMIN HCL 500 MG TABS one tab oral twice a day metformin 80646923698 Melvin Hartman RIFAMPIN 300 MG CAPS take 2 po daily 09/24 RIFAMPIN 41088014796 Jer Zhang MD ISONIAZID 300 MG TABS Take 1 tablet by mouth daily 12/16 ISONIAZID 72898481257 Jer Zhang MD AZITHROMYCIN 250 MG TABS TAKE 2 TABLETS BY MOUTH ON DAY 1 AND THEN TAKE 1 TABLET BY MOUTH ONCE A DAY ON DAY 2 THROUGH DAY 5 09/24 AZITHROMYCIN 77382122738 Gerald Ocasio BENZONATATE 100 MG CAPS TAKE 1 CAPSULE BY MOUTH THREE TIMES DAILY FOR 10 DAYS NEEDED FOR COUGH 12/16 BENZONATATE 51208384440 Gerald Ocasio PROMETHAZINE-CODEI NE 6.25-10 MG/5ML SOLN TAKE 5 ML BY MOUTH TWICE DAILY 12/16 PROMETHAZINE-CODE INE 28830857549 Gerald Ocasio LEVOFLOXACIN 750 MG TABS TAKE 1 TABLET BY MOUTH ONCE DAILY FOR 8 DAYS 12/16 LEVOFLOXACIN 21615341559 Gerald Ocasio CLOPIDOGREL BISULFATE 75 MG TABS TAKE 1 TABLET BY MOUTH ONCE DAILY 12/16 CLOPIDOGREL BISULFATE 37940397982 Gerald D NYSTATIN 656568 UNIT/GM OINT APPLY OINTMENT TOPICALLY ONCE DAILY 12/16 NYSTATIN 50013080422 Gerald D HYDROCOD POLST-CPM POLST ER 10-8 MG/5ML ORAL SUSPENSION EXTENDED RELEASE TAKE 1 TEASPOONFUL (5 ML) BY MOUTH TWICE DAILY MAY CAUSE DROWSINESS 12/16 HYDROCOD POLST-CHLORPHEN POLST 44213155239 Gerald D TRIAZOLAM 0.25 MG TABS TAKE 1 TABLET BY MOUTH 30 MINUTES PRIOR TO MRI ON 09/24 TRIAZOLAM 91658460655 Gerald D LORAZEPAM 1 MG TABS TAKE 1 TABLET 2 HOURS BEFORE MRI FOR ANXIETY 12/16 LORAZEPAM 81185838183 Gerald D Medications Administered No information available. 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
--- OUTSIDE RECORDS SUMMARY | 2024-10-11 12:02 | XMS_ITS | Encounter Summary ---
Author Organization [employer] ([place], [place], [place], [place]) Address [address] [place] [address] Care Team Providers Care Machinist First Class Name Role Phone Unavailable Primary Care Provider Unavailabl e Encounter Details Date Type Department Care Team (Late st Contact Info) Description 12/23/[address] [facility] [place] [address] ProviderJaime MD [address] [place] [id number] Social History Tobacco Use Types Packs/Day Years [...] COVID-19; CAD (coronary artery disease) Author: ADI AGIULAR MD-INT Date of admission 12/23/2020 Date of [...] EDT Chloraseptic Menthol 1.4% topical spray: 5 [place], Oral, [place], Q2H, PRN for Sore Throat, Routine, Start [...] Oral, Q4H phenol 1.4% throat spray 5 [place], Oral, Q2H promethazine 25 mg tab 12.5 [...] HTN, CAD and cancer Procedure history: Cholecystectomy (99995731). Hernia ([id number]). Rotator cuff right ([id number]). Knee left partial ([id number]). right upper thigh boil. lymph node drained from right arm pit. Colonoscopy (935091717). EGD - Esophagogastroduodenoscopy (8534299353). heart cath. cardiac stent. Social History Patient [...] swelling, No deformity, Normal gait. Integumentary: Warm, [place], Intact, No pallor, No rash, WOUND STABLE. [...] then you may give Tylenol 650 mg PO/WV x 1. If no response in 2 [...]
--- OUTSIDE RECORDS SUMMARY | 2024-10-11 12:02 | XMS_ITS | Encounter Summary ---
Author Organization [employer] ([place], [place], [place], [place]) Address [address] [place] [address] Care Team Providers Care Extension Service Supervisor Name Role Phone Unavailable Primary Care Provider Unavailabl e Encounter Details Date Type Department Care Team (Late st Contact Info) Description 12/16/2020 Transcribed Document [facility] [place] [address] [place] [address] ProviderJaime MD [address] [place], [place] [id number] Social History Tobacco Use Types Packs/Day Years [...] Source : Stated Height Entry Format : [place] Height, Feet : 5 ft(Converted to: 152 cm, 60 Inch) Height, Inches : 9 Inch(Converted to: 0 ft 9 Inch, 22.86 cm) Clinical Height : 175.26 cm Weight Source : Standing scale Weight Entry Format : [place] Clinical Dosing Weight : 96.93 kg Weight, Pounds : 213 lb Weight, Ounces : 4 oz Body Surface Area (BSA) : 2.12 m2 Body Mass Index : 31.6 kg/m2 (HI) [place] Body Weight : 70 kg CIARA WOODS [...] CIARA WOODS RN - 12/16/2020 6:51 EDT [place] Suicide Severity Rating Scale (C-SSRS) CSSRS Past [...] Obtained From : Patient Primary Language : Latvian Preferred Communication Mode : Verbal Communication Barrier : None Child Care Assistant Needed : No CIARA WOODS RN [...]
--- OUTSIDE RECORDS SUMMARY | 2024-10-11 12:02 | XMS_ITS | Encounter Summary ---
Author Organization [employer] ([place], [place], [place], [place]) Address [address] [place] [address] Care Team Providers Care Sleeve Sewer Name Role Phone Unavailable Primary Care Provider Unavailabl e Encounter Details Date Type Department Care Team (Late st Contact Info) Description 12/09/2020 Transcribed Document [facility] [place] [address] [place] [address] ProviderJaime MD [address] [place] [id number] Social History Tobacco Use Types Packs/Day Years [...] : Standing scale Weight Entry Format : [place] Clinical Dosing Weight : 95.91 kg Weight, Pounds : 211 lb Body Surface Area (BSA) : 2.12 m2 Body Mass Index : 31.2 kg/m2 (HI) [place] Body Weight : 70 kg Michaela Alvarez Rn - 12/09/2020 16:02 EDT Height Source : Stated Height Entry Format : [place] Michaela Alvarez Rn - 12/09/2020 15:57 EDT [...] Michaela Alvarez Rn - 12/09/2020 16:02 EDT [place] Suicide Severity Rating Scale (C-SSRS) CSSRS Past [...] Obtained From : Patient Primary Language : Vincentian Preferred Communication Mode : Verbal Communication Barrier : None Customer Service Cashier Needed : No Michaela Alvarez Rn - [...] EDT Electronically signed by Adolph Crowder [employer] Flatbed Truck Driver Cerner at 07/09/2022 10:37 AM CDT documented in this encounter Plan of Treatment Not on file documented as of this encounter Visit Diagnoses Not on filedocumented in this encounter
--- OUTSIDE RECORDS SUMMARY | 2024-10-11 12:02 | XMS_ITS | Encounter Summary ---
Author Organization [employer] ([place], [place], [place], [place]) Address [address] [place] [address] Care Team Providers Care Scientific Software Developer Name Role Phone Unavailable Primary Care Provider Unavailabl e Encounter Details Date Type Department Care Team (Late st Contact Info) Description 12/09/2020 Transcribed Document [facility] [place] [facility] [address] ProviderJaime MD [address] [place] [phone] Social History Tobacco Use Types Packs/Day Years [...] Appearance CLEAR2 12/09/2020 16:01 EDT Urine Specific Smock *1.026 12/09/2020 16:01 EDT Urine pH Dipstick [...]
--- OUTSIDE RECORDS SUMMARY | 2024-10-11 12:02 | XMS_ITS | Encounter Summary ---
Author Organization [employer] ([place], [place], [place], [place]) Address [address] [place] [address] Care Team Providers Care Garment Cutter Name Role Phone Unavailable Primary Care Provider Unavailabl e Encounter Details Date Type Department Care Team (Late st Contact Info) Description 12/23/2020 Transcribed Document [facility] [place] [address] [place] [address] ProviderJaime MD [address] [place] [address] Social History Tobacco Use Types Packs/Day Years Used Date Smoking Tobacco: Never Assessed Sex and Gender Information Value Date Recorded Sex Assigned at Not on file Legal Sex Male 5:28 PM CDT Gender Identity Not on file Sexual Orientation Not on file documented as of this encounter Miscellaneous Notes * Cerner Conversion Note - Jaime ProviderMD - 12/23/2020 1:22 [place] [address] AYLEEN BLACK III :1950 Visit Time:12/23/2020 What [...] then 6 days after surgery Community [facility] Home Health Services: [facility] [...] When 12/29/2020 09:45 AM EDT Where: [address] [facility] [facility] [address] [place] [address] Medications What How Much When Instructions Next [...] or 4 frozen water bottles in the [facility] CUBE. Continue to use Incentive [...] Barley. Bulgur wheat. Millet. Bran muffins. Popcorn. [place] wafer crackers. Vegetables Sweet potatoes. Spinach. Kale. Artichokes. Cabbage. Broccoli. Green peas. Carrots. Squash. Fruits Berries. Pears. Apples. Oranges. Avocados. Prunes and raisins. Dried figs. Meats and Other Protein Sources [place], kidney, amador, and soy beans. Split peas. [...] 1 katy has 11 g of protein. [place] seeds ??? 1 oz has 5.5 g [...] the floor. Place frequently used items in nyoc-jy-ocxme places Keep electrical cables out of the [...] ? Using the bathroom. ? Using household book editor or toxic chemicals. ? Touching or taking [...] activities are safe for you. ??? Take ogjb-fsq-ilyuiwg and prescription medicines only as told by [...] provider. Document Revised: 03/16/2018 Document Reviewed: 10/27/2017 [employer] Patient Education ?? 2020 [employer]. acetaminophen (oral) (a SEET a MIN oh fen) Actamin, Anacin AF, Aurophen, Bromo Tynan, Children's Tylenol, Mapap, M-Pap, Pharbetol, Silapap Childrens, [...] is a pain reliever and a fever syrup shed supervisor. There are many brands and forms [...] may report side effects to FDA at 3-304-GCL-9075. What other drugs will affect acetaminophen? Other drugs may affect acetaminophen, including prescription and wquj-gse-reblwtf medicines, vitamins, and herbal products. Tell your [...] to ensure that the information provided by [employer]. ('[employer]') is accurate, up-to-date, and complete, but no guarantee is made to that effect. Drug information contained herein may be time sensitive. [employer] information has been compiled for use by healthcare practitioners and consumers in the [place] and therefore [employer] does not warrant that uses outside of the [place] are appropriate, unless specifically indicated otherwise. [employer]'s drug information does not endorse drugs, diagnose patients or recommend therapy. [facility] drug information is an informational resource designed [...] effective or appropriate for any given patient. [facility] does not assume any responsibility for any aspect of healthcare administered with the aid of information [facility] provides. The information contained herein is not intended to cover all possible uses, directions, precautions, warnings, drug interactions, allergic reactions, or adverse effects. If you have questions about the drugs you are taking, check with your doctor, nurse or pharmacist. Copyright 1090-6553 [facility]. Version: 21.. Revision Date: 11/01/2019. aspirin (oral) ( pir in) Arthritis Pain, Aspi-Cor, Aspir-Low, Nusrat Plus, Durlaza, Ecotrin, Miniprin, Vazalore What is the most important information I should know about aspirin? Aspirin can cause Tonai's syndrome, a serious and sometimes fatal condition in children. What is aspirin? Aspirin is a salicylate (wt-QEL-nv-ate) that is used to treat pain, and [...] may report side effects to FDA at 7-865-UDE-2445. What other drugs will affect aspirin? Ask [...] drugs may affect aspirin, including prescription and hhse-qfa-jrnzyhp medicines, vitamins, and herbal products. Not all [...] to ensure that the information provided by [employer]. ('[employer]') is accurate, up-to-date, and complete, but no guarantee is made to that effect. Drug information contained herein may be time sensitive. [employer] information has been compiled for use by healthcare practitioners and consumers in the [place] and therefore [employer] does not warrant that uses outside of the [place] are appropriate, unless specifically indicated otherwise. [employer] drug information does not endorse drugs, diagnose patients or recommend therapy. [employer] drug information is an informational resource designed [...] effective or appropriate for any given patient. [employer] does not assume any responsibility for any aspect of healthcare administered with the aid of information [facility] provides. The information contained herein is not intended to cover all possible uses, directions, precautions, warnings, drug interactions, allergic reactions, or adverse effects. If you have questions about the drugs you are taking, check with your doctor, nurse or pharmacist. Copyright 9952-7040 [employer]. Version: 16.03. Revision Date: 09/21/2020. oxycodone (ox [...] The extended-release form of oxycodone is for neffnq-tkt-kvcbq treatment of pain and should not be [...] against the law. Stop taking all other weldkp-xbi-lfana opioid pain medicines when you start taking [...] may report side effects to FDA at 1-330-DOT-6725. What other drugs will affect oxycodone? You [...] may affect oxycodone. This includes prescription and snln-hll-vhnqowy medicines, vitamins, and herbal products. Not all [...] to ensure that the information provided by [employer]. ('[employer]') is accurate, up-to-date, and complete, but no guarantee is made to that effect. Drug information contained herein may be time sensitive. [employer] information has been compiled for use by healthcare practitioners and consumers in the [place] and therefore [employer] does not warrant that uses outside of the [place] are appropriate, unless specifically indicated otherwise. [employer]'s drug information does not endorse drugs, diagnose patients or recommend therapy. [employer] drug information is an informational resource designed [...] effective or appropriate for any given patient. [employer] does not assume any responsibility for any aspect of healthcare administered with the aid of information [employer] provides. The information contained herein is not intended to cover all possible uses, directions, precautions, warnings, drug interactions, allergic reactions, or adverse effects. If you have questions about the drugs you are taking, check with your doctor, nurse or pharmacist. Copyright 5930-4433 [facility] [employer]. Version: 14.02. Revision Date: 04/23/2020. docusate (oral/rectal) [...] may report side effects to FDA at 7-809-NAB-5116. What other drugs will affect docusate? Other drugs may affect docusate, including prescription and wccu-wko-eaasvlo medicines, vitamins, and herbal products. Tell your [...] to ensure that the information provided by [employer] [facility]. ('[employer]') is accurate, up-to-date, and complete, but no guarantee is made to that effect. Drug information contained herein may be time sensitive. [employer] information has been compiled for use by healthcare practitioners and consumers in the [place] and therefore [employer] does not warrant that uses outside of the [place] are appropriate, unless specifically indicated otherwise. [employer]'s drug information does not endorse drugs, diagnose patients or recommend therapy. [employer] drug information is an informational resource designed [...] effective or appropriate for any given patient. [employer] does not assume any responsibility for any aspect of healthcare administered with the aid of information [employer] provides. The information contained herein is not intended to cover all possible uses, directions, precautions, warnings, drug interactions, allergic reactions, or adverse effects. If you have questions about the drugs you are taking, check with your doctor, nurse or pharmacist. Copyright 2984-3758 [employer]. Version: 4.01. Revision Date: 10/01/2018. cephalexin (sef [...] may report side effects to FDA at 1-952-CMG-0991. What other drugs will affect cephalexin? Tell your doctor about all your other medicines, especially: ?? metformin; or ?? probenecid. This list is not complete. Other drugs may affect cephalexin, including prescription and rywa-lqy-xddytks medicines, vitamins, and herbal products. Not all [...] to ensure that the information provided by [employer] [facility]. ('[employer]') is accurate, up-to-date, and complete, but no guarantee is made to that effect. Drug information contained herein may be time sensitive. [employer] information has been compiled for use by healthcare practitioners and consumers in the [place] and therefore [employer] does not warrant that uses outside of the [place] are appropriate, unless specifically indicated otherwise. [employer] drug information does not endorse drugs, diagnose patients or recommend therapy. [employer] drug information is an informational resource designed [...] effective or appropriate for any given patient. [employer] does not assume any responsibility for any aspect of healthcare administered with the aid of information [employer] provides. The information contained herein is not intended to cover all possible uses, directions, precautions, warnings, drug interactions, allergic reactions, or adverse effects. If you have questions about the drugs you are taking, check with your doctor, nurse or pharmacist. Copyright 5595-7278 [facility] [facility]. Version: 10.03. Revision Date: 03/30/2020. tramadol (TRAM [...]
--- OUTSIDE RECORDS SUMMARY | 2024-10-11 12:02 | XMS_ITS | Encounter Summary ---
Author Organization [employer] ([place], [place], [place], [place]) Address [address] [place] [address] Care Team Providers Care Loom Stop Checker Name Role Phone Unavailable Primary Care Provider Unavailabl e Encounter Details Date Type Department Care Team (Late st Contact Info) Description 12/23/2020 Transcribed Document [facility] [place] [facility] [place] [address] ProviderJaime MD [address] [place], [place] [id number] Social History Tobacco Use Types Packs/Day Years [...]
--- OUTSIDE RECORDS SUMMARY | 2024-10-11 12:02 | XMS_ITS | Encounter Summary ---
Author Organization [employer] ([place], [place], [place], [place]) Address [address] [place] [address] Care Team Providers Care Urban Design Consultant Name Role Phone Unavailable Primary Care Provider Unavailabl e Encounter Details Date Type Department Care Team (Late st Contact Info) Description 12/23/2020 Transcribed Document [facility] [place] Family Medicine [facility] [place] [address] ProviderJaime MD [address] [place] [phone] Social History Tobacco Use Types Packs/Day Years [...] Sent to Post Acute Providers : Yes [facility] Quality Web Info Shared w Pt/Fam : [...] EDT Electronically signed by Adolph Crowder Conversion Health Care Sanitary Technician Romulo at 07/09/2022 10:41 AM CDT documented in this encounter Plan of Treatment Not on file documented as of this encounter Visit Diagnoses Not on filedocumented in this encounter
--- OUTSIDE RECORDS SUMMARY | 2024-10-11 12:02 | XMS_ITS | Clinical Summary ---
Author Organization [employer] ([place], [place], [place], [place]) Address [address] [place], [place] [id number] Care Team Providers Care Scenario Writer Name Role Phone Unavailable Primary Care Provider [...] Date Milton rded Speak language other than Lithuanian at home Not on file 01/23/2024 Want [...] Plan of Treatment Not on file Insurance [facility] [place] [id number] [facility] MEDICARE ADVANTAGE
--- OUTSIDE RECORDS SUMMARY | 2024-10-11 12:02 | XMS_ITS | Encounter Summary ---
Author Organization [employer] ([place], [place], [place], [place]) Address [address] [place] [address] Care Team Providers Care Cutlet Maker Pork Name Role Phone Unavailable Primary Care Provider Unavailabl e Encounter Details Date Type Department Care Team (Late st Contact Info) Description 12/23/2020 Transcribed Document [facility] [place] Family Medicine [facility] [place] [address] ProviderJaime MD [facility] [place], [place] [address] Social History Tobacco Use Types Packs/Day Years [...] knee 12/23/2020 12:00 Atherosclerotic heart disease of [place] coronary artery without angina pectoris 12/23/2020 12:00 [...]
--- OUTSIDE RECORDS SUMMARY | 2024-10-11 12:02 | XMS_ITS | Encounter Summary ---
[facility] Organization [facility] Address [address] [place] [address] Care Team Providers Care Strike Plate Attacher Name Role Phone Columba Rodríguez APRN Primary Care Provider [phone] Encounter Details Date Type Department Care Team (Late st Contact Info) Description 07/17/2024 Telephone [facility] [address] [address] Cash Khanna DO [address] [id number] Social History Tobacco Use Types Packs/Day Years Used Date Smoking Tobacco: Never Passive Smoke Exposure: Past Smokeless Tobacco: Never Alcohol Use Standard Drinks/Week Comments Never 0 (1 standard drink = 0.6 oz pur e alcohol) Sex and Gender Information Value Date Recorded Sex Assigned at Not on file Legal Sex Male 4:32 PM EDT Gender Identity Not on file Sexual Orientation Not on file documented as of this encounter Miscellaneous Notes * Telephone Encounter - Patricio Hernandez RegSched Rep - 07/17/2024 4:21 PM EDT Images from the original note were not included. documented in this encounter Plan of Treatment Upcoming Encounters Date Type Department Care Team (Late st Contact Info) Description 12/13/2024 11:15 AM EDT Office Visit [facility] [address] [place] [address] Cash Khanna DO [address] [place] [address] [place] [address] documented as of this encounter Visit Diagnoses Not on filedocumented in this encounter Care Teams Strike Plate Attacher Relationship Specialty Start Date End Date Columba Rodríguez APRN [address] [place] [address] PCP - General Family Medicine 11/10/23 documented as of this encounter
--- OUTSIDE RECORDS SUMMARY | 2024-10-11 12:02 | XMS_ITS | Encounter Summary ---
Author Organization [employer] ([place], [place], [place], [place]) Address [address] [place] [address] Care Team Providers Care Children'S Minister Name Role Phone Unavailable Primary Care Provider Unavailabl e Encounter Details Date Type Department Care Team (Late st Contact Info) Description 12/23/2020 Transcribed Document [facility] [place] Family Medicine [address] [place] [address] ProviderJaime MD [address] [place], [place] [phone] Social History Tobacco Use Types Packs/Day Years Used Date Smoking Tobacco: Never Assessed Sex and Gender Information Value Date Recorded Sex Assigned at Not on file Legal Sex Male 5:28 PM CDT Gender Identity Not on file Sexual Orientation Not on file documented as of this encounter Miscellaneous Notes * Cerner Conversion Note - Jaime ProviderMD - 12/23/2020 8:11 AM CDT [facility] Main OR PACU Summary Primary Physician: KAYLA ZIMMERMAN JR, JR, MD-ORT Finalized Date/Time: 12/23/20 11:16:13 Pt. Name: AYLEEN BLACK III /Sex: 1950 Male Med Rec #: [id number] Physician: KAYLA ZIMMERMAN JR, JR, MD-ORT Financial #: [id number] Pt. Type: O Room/Bed: Admit/Disch: 12/23/20 04:16:00 - Institution: [facility] OR PACU Case Times Entry 1 In PACU I 12/23/20 09:56:00 Ready for PACU 12/23/20 11:12:00 Discharge Discharge from PACU 12/23/20 11:12:00 I Last Modified By: Janene Helm RN 12/23/20 11:16:01 [facility] Main OR PACU Case Times Audit 12/23/20 11:16:01 Block Breaker Operator: KINZA Modifier: KINZA 1 <*> Ready for PACU Discharge 12/23/20 10:30:00 1 <+> Discharge from PACU I Finalized By: Janene Helm RN Document Signatures Signed By: Janene Helm RN 12/23/20 11:16 Electronically signed by Pedro Crowder Conversion Associate Automation Engineer Cerner at 07/09/2022 10:49 AM CDT documented in this encounter Plan of Treatment Not on file documented as of this encounter Visit Diagnoses Not on filedocumented in this encounter
--- OUTSIDE RECORDS SUMMARY | 2024-10-11 12:02 | XMS_ITS | Clinical Summary ---
Author Organization [facility] Address [address] [place] [address] Care Team Providers Care Rn Review Name Role Phone Columba Rodríguez APRN Primary Care Provider [phone] Allergies Active Allergy Reactions Criticality Noted Date Comments Penicillins Unknown - Low Severi ty,Itching,Unknown (See Comments) Medium 08/08/2017 Medications Plavix 75 MG tablet PLAVIX 75 MG TABS Active vitamin B-12 (cyanocobalamin ) 100 MCG tablet Take 1 tablet by mouth Daily. Active losartan (COZAAR) 50 MG tablet 3 Active metFORMIN ER (GLUCOPHAGE-XR) 500 MG 24 hr tablet 3 Active mupirocin (BACTROBAN) 2 % ointment 3 Active nystatin (MYCOSTATIN) 841957 UNIT/GM cream 3 Active pioglitazone (ACTOS) 30 MG tablet 3 Active potassium chloride (MICRO-K) 10 MEQ CR capsule Take by mouth. Active zinc gluconate 50 MG tablet Take 1 tablet by mouth Daily. Active lidocaine (LIDODERM) 5 % Place 1 patch on the skin as directed by provider Daily. Remove & Discard patch within 12 hours or as directed by 15 each 3 Active albuterol sulfate HFA 108 (90 Base) MCG/ACT inhaler INHALE 2 INHALATIONS BY MOUTH EVERY 6 HOURS NEEDED FOR WHEEZING OR SHORTNESS OF AIR 34 g 3 4 Active vitamin B-6 (PYRIDOXINE) 100 MG tablet Take 2 tablets by mouth Daily. Active VITAMIN E 400 UNIT capsule Take 1 capsule by mouth Daily. Active vitamin C (ASCORBIC ACID) 500 MG tablet Take 1 tablet by mouth Daily. Active Cholecalciferol (Vitamin D3) 1.25 MG (42886 UT) tablet Take 1 tablet by mouth Daily. Active isoniazid (NYDRAZID) 300 MG tablet Take 1 tablet by mouth Daily. 4 Active Pharmacist Choice Lancets misc 31 g. 4 Active atorvastatin (LIPITOR) 40 MG tablet Take 1 tablet by mouth every night at bedtime. 5 Active Mounjaro 5 MG/0.5ML solution auto-injector Inject 1 syringe under the skin into the appropriate area as directed 1 (One) Time Per Week. 5 Active metoprolol succinate XL (TOPROL-XL) 25 MG 24 hr tablet Take 1 tablet by mouth Daily. 5 Active ondansetron (ZOFRAN) 4 MG tablet Take 1 tablet by mouth Every 8 (Eight) Hours As Needed for Nausea. 4 Active traMADol (ULTRAM) 50 MG tabletIndicatio ns:Encounter for medication monitoring TAKE 1 TO 2 TABLETS BY MOUTH EVERY 8 HOURS NEEDED 180 tablet 4 5 Active cyclobenzaprine (FLEXERIL) 5 MG tablet Take 2 tablets by mouth 3 (Three) Times a Day As Needed for Muscle Spasms. 270 tablet 5 Active Active Problems Problem Noted Date Diagnosed Date BPH (benign prostatic hyperplasia) 11/10/2023 CAD (coronary artery disease) 11/10/2023 Calculus of kidney 11/10/2023 Chronic SI joint pain 11/10/2023 Diabetic ulcer of toe of rig ht foot associated with type 2 diabetes mellitus, limited to breakdown of skin 11/10/2023 Diastolic dysfunction 11/10/2023 Lymphedema of both lower extremities 11/10/2023 Enlarged prostate 11/10/2023 History of IBS 11/10/2023 History of rotator cuff surgery 11/10/2023 History of total right knee replacement 11/10/19 HLD (hyperlipidemia) 11/10/2023 Impotence 11/10/2023 Iron deficiency anemia 11/10/2023 Low back pain 11/10/2023 Complex renal cyst 11/10/2023 CATHLEEN (obstructive sleep apnea) 11/10/2023 Peripheral artery disease 11/10/2023 Radiculopathy 11/10/2023 Encounter for medication monitoring 11/08/2023 Assessment & Plan (06/20/2024 3:09 PM EDT): * Tramadol PRN 50 mg every 6 hours * Controlled substance agreement signed 11/05/19 & again on 02/15/22 Check PRANAV and Drug screen as required. Drug screen ordered today Orders: Urine Drug Screen - Urine, Clean Catch; Future traMADol (ULTRAM) 50 MG tablet; TAKE 1 TO 2 TABLETS BY MOUTH EVERY 8 HOURS NEEDED Assessment & Plan (11/08/2023 12:23 PM EDT): * Tramadol PRN 50 mg every 6 hours UDS today PDMP reviewed Controlled substance agreement discussed and signed Positive QuantiFERON-TB Gold test 11/08/2023 Assessment & Plan (06/20/2024 3:09 PM EDT): Historically he was noted to have a + TB test. He saw infectious disease. 10/07/22 his QuantiFERON TB test was positive. 10/28/22 his T spot test was positive. At this point we referred him back to ID. They have not treated him for TB but stated that if he went on an immunosuppressive medication he would need to be treated for TB first Orders: Urine Drug Screen - Urine, Clean Catch; Future Assessment & Plan (11/10/2023 9:46 AM EDT): Historically he was noted to have a + TB test. He saw infectious disease. 10/07/22 his QuantiFeron TB test was positive. 10/28/22 his T spot test was positive. At this point we referred him back to ID. They have not treated him for TB but stated that if he went on an immunosuppressive medication he would need to be treated for TB first. Today he reports he is following with pulmonary Dr. Tran. He reports he plans to start treatment for latent TB per pulmonary. Osteoarthritis 11/07/2023 Assessment & Plan (06/20/2024 3:09 PM EDT): 1. NSAIDs were stopped due to GI bleeding. 2. He takes Flexeril PRN. Refill today 3. He stopped gabapentin due to itching. 4. Continue Tramadol PRN. Refill today. 5. He has seen podiatry for his feet 6. Tylenol PRN is ok as directed 7. He has seen orthopaedic surgeons 8. He has done some physical therapy 9. He had knee replacement surgery Orders: Urine Drug Screen - Urine, Clean Catch; Future Assessment & Plan (11/10/2023 9:44 AM EDT): 1. NSAIDs were stopped due to GI bleeding. 2. He takes Flexeril PRN. Refill today 3. He stopped gabapentin due to itching. 4. Continue Tramadol PRN. We will increase his dose to 50-100 mg every 8 hours PRN. Risks and benefits discussed. Refill today. 5. He has seen podiatry for his feet 6. Tylenol PRN is ok as directed 7. He has seen orthopaedic surgeons 8. He has done some physical therapy 9. He had knee replacement surgery 10. He may be having left rotator cuff repair in the near future. Seronegative rheumatoid arthritis 11/07/2023 Assessment & Plan (06/20/2024 3:09 PM EDT): * Medications/treatments/interventions tried included: Diclofenac, gabapentin (made him itch), Plaquenil, Flexeril, Arava, prednisone, Tramadol, Xeljanz, IV Simponi, Tylenol, he has seen orthopaedic surgeons, physical therapy, he had knee replacement surgery, he saw podiatry 1. He called and reported a GI bleed on 03/03/2017. He was taken off of NSAIDs. We are also avoiding prednisone for this reason. He is also a diabetic. 2. 02/23/2016 his ESR was elevated. He is RF and CCP negative. 3. He is no longer on gabapentin. 4. Refill medication. 5. Follow up in 6 months. 6. We prescribed him Plaquenil and he quit taking it. He did not think it was helping. 7. He reported side effects with prednisone. 8. He reported side effects with Arava. 9. Check labs. 10. Continue Tramadol PRN 11. Xeljanz was stopped due to lack of efficacy 12. He historically told us Cimzia was going to be too expensive (it was going to cost $50.00/injection). 13. His prognosis is guarded 14. He took two doses of IV Simponi and then discontinued it. 15. We gave him a handout on rheumatoid arthritis to take home and review 16. See below regarding + TB Test. We will not pursue any additional immunosuppressive medication until this issue is sorted out Orders: Urine Drug Screen - Urine, Clean Catch; Future Assessment & Plan (11/10/2023 9:45 AM EDT): * Medications/treatments/interventions tried included: Diclofenac, gabapentin (made him itch), Plaquenil, Flexeril, Arava, prednisone, Tramadol, Xeljanz, IV Simponi, Tylenol, he has seen orthopaedic surgeons, physical therapy, he had knee replacement surgery, he saw podiatry. 1. He called and reported a GI bleed on 03/03/2017. He was taken off of NSAIDs. We are also avoiding prednisone for this reason. He is also a diabetic. 2. 02/23/2016 his ESR was elevated. He is RF and CCP negative. 3. He is currently not on any DMARD therapy. 4. We previously prescribed him Plaquenil and he quit taking it. He did not think it was helping. 5. He reported side effects with prednisone. 6. He reported side effects with Arava. 7. Check labs today 8. Continue Tramadol PRN 9. Previously Xeljanz was stopped due to lack of efficacy 10. He historically told us Cimzia was going to be too expensive (it was going to cost $50.00/injection). 11. See below regarding + TB Test. We will not pursue any additional immunosuppressive medication until this is treated. 12. His prognosis is guarded 13. He took two doses of IV Simponi and then discontinued it. 14. 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 CKD (chronic kidney disease) stage 1, GFR 90 ml/min or greater 12/09/2019 Diabetes mellitus, type 2 11/05/2018 Essential hypertension 11/05/2018 Resolved Problems Problem Noted Date Diagnosed Date Resolved Date Inflammatory polyarthritis 11/07/2023 0 11/08/2023 Muscle pain 11/07/2023 06/20/2024 Encounters Date Type Department Care Team Description 07/17/2024 Telephone [facility] [address] [address] Cash Khanna DO from Last 3 Months Immunizations Immunization Administration Dates Next Due 31-influenza Vac Quardvalent Preservativ 019,01/11/2018 Fluzone (or Fluarix & Flulaval for VFC) >6mos ,12/29/2015 Fluzone High-Dose 65+YRS 01/31/2019,01/11/2018 Fluzone High-Dose 65+yrs 02/10/2022,01/09/2020 Pneumococcal Conjugate 13-Valent (PCV13) 018 Pneumococcal Conjugate 20-Valent (PCV20) 022 Pneumococcal Polysaccharide (PPSV23) 01/31/2019, 12/29/2015 Family History Medical History Relation Name Comments Cancer Brother Diabetes Brother Diabetes Father Heart disease Father Cancer Mother Diabetes Mother Heart disease Mother Cancer Sister Diabetes Sister Relation Name Status Comments Brother Father Mother Sister Social History Tobacco Use Types Packs/Day Years [...] Sign Reading Time Taken Comments Blood Pressure 90/70 06/20/2024 2:17 PM EDT Pulse 74 06/20/2024 2:17 PM EDT Temperature 36.6 C (97.8 F) 06/20/2024 2:17 PM EDT Respiratory Rate - - Oxygen Saturation 98% 01/06/2023 2:5 9 PM EDT Room air at rest Inhaled Oxygen Concentration - - Weight 96.6 kg (213 lb) 06/20/2024 2:17 PM EDT Height 175.3 cm (5' 9 ) 06/20/2024 2:17 PM EDT Body Mass Index 31.45 06/20/2024 2:17 PM EDT Plan of Treatment Upcoming Encounters Date Type Department Care Team (Late st Contact Info) Description 12/13/2024 11:15 AM EDT Office Visit [facility] [address] [place] [address] Cash Khanna DO [address] [facility] [address] [place], [place] [id number] Health Maintenance Due Date Last Done Comments LIPID PANEL 1950 DIABETIC EYE EXAM 1962 DIABETIC FOOT EXAM 1962 URINE MICROALBUMIN-CREATININ E RATIO (uACR) 1962 TDAP/TD VACCINES (1 - Tdap) 07/08/1971 COLOGUARD 1997 COLON CANCER SCREENING 5 YEA R SIGMOIDOSCOPY 1997 COLONOSCOPY 1997 COLORECTAL CANCER SCREENING 1997 CT COLONOGRAPHY 1997 FECAL OCCULT BLOOD TEST 1997 FIT Testing (1 year) 1997 ZOSTER VACCINE (1 of 2) 2002 ANNUAL WELLNESS VISIT 01/06/2023 HEMOGLOBIN A1C 01/06/2023 HEPATITIS C SCREENING 01/06/2023 COVID-19 Vaccine ( - 2023-2 5 season) 2023 INFLUENZA VACCINE 12/25/2024 01/31/2024, , 01/09/2020, Additional history exists Pneumococcal Vaccine 50+ Completed 022, 01/31/2019, 01/11/2018, Additional history exists Insurance [facility] Medicare Advant[employer] PPO Care Teams Rn Review Relationship Specialty Start Date End Date Columba Rodríguez APRN [address] [place] [address] PCP - General Family Medicine 11/10/23
--- OUTSIDE RECORDS SUMMARY | 2024-10-11 12:02 | XMS_ITS | Encounter Summary ---
Author Organization [employer] ([place], [place], [place], [place]) Address [address] [place] [address] Care Team Providers Care Commercial Driver'S License Driver Name Role Phone Unavailable Primary Care Provider Unavailabl e Encounter Details Date Type Department Care Team (Late st Contact Info) Description 12/08/2020 Transcribed Document [facility] [address] [place] [address] ProviderJaime MD [address] [place], [place] [address] Social History Tobacco Use Types Packs/Day Years [...] Health Plan: [employer] MEDICARE REPL Policy Number: [id number] Authorization Number: Insurance Primary Name : [employer] MEDICARE REPL Policy Number: [id number] Authorization Status-Primary : Opo status approv Authorized Service Begin Date-Primary : 12/16/2020 EDT Observation Authorization Nbr-Primary : [id number] Authorization Comments-Primary : [employer] Medicare approved for outpt per availity Historical Authorization Comments-Primary : No Authorization Comments Found ROLANDO TABARES RN-Utilization Review - 12/08/2020 15:21 EDT Electronically signed by Lakesha [facility] Conversion Produce Buyer Cerner at 07/09/2022 10:42 AM CDT documented in this encounter Plan of Treatment Not on file documented as of this encounter Visit Diagnoses Not on filedocumented in this encounter
--- OUTSIDE RECORDS SUMMARY | 2024-10-11 12:02 | XMS_ITS | Encounter Summary ---
Author Organization [facility] ([place], [place], [place], [place]) Address [address] [place] [address] Care Team Providers Care Travel Rn Name Role Phone Unavailable Primary Care Provider Unavailabl e Reason for Referral * Consultation (Routine) - Closed Specialty Diagnoses / Procedures Referred By Mitchell dela cruz Referred To Contact Neurology Diagnoses Seizure (HCC) Kirsten Gates [address] [place] [address] Phone: tel: Mac [place] MD [address] [facility] [address] [place] [address] Phone: tel: fax: Referral ID Status Reason Start Date Expiration Date V isits Requested Visits Authorized [id number] Closed Specialty Services Required 01/03/2024 01/02/2025 1 1 Encounter Details Date Type Department Care Team (Late st Contact Info) Description 01/03/2024 Outside Orders [facility] Neurology [address] [facility] [address] [place] [address] [address] [place] [address] Seizure (HCC) (Primary Dx) Social History Tobacco [...]
--- OUTSIDE RECORDS SUMMARY | 2024-10-11 12:02 | XMS_ITS | Referral Summary ---
Author Organization [employer] ([place], [place], [place] Address [address] [place] [address] Care Team Providers Care Back Joiner Name Role Phone Unavailable Primary Care Provider [...] Date Milton rded Speak language other than Polish at home Not on file 01/23/2024 Want [...] Plan of Treatment Not on file Insurance [facility] [address]
--- OUTSIDE RECORDS SUMMARY | 2024-10-11 12:02 | XMS_ITS | Encounter Summary ---
Author Organization [employer] ([place], [place], [place], [place]) Address [address] [place] [address] Care Team Providers Care Cissp Name Role Phone Unavailable Primary Care Provider Unavailabl e Encounter Details Date Type Department Care Team (Late st Contact Info) Description 12/23/2020 Transcribed Document [facility] [place] [address] [place] [address] ProviderJaime MD [address] [place], [place] [address] Social History Tobacco Use Types Packs/Day Years [...] : Yes Discharge To Care Management : Home/Residential/Half-Way or Self Care -01 ANGELA NGUYEN RN [...]
--- OUTSIDE RECORDS SUMMARY | 2024-10-11 12:02 | XMS_ITS | Encounter Summary ---
Author Organization [employer] ([place], [place], [place], [place]) Address [address] [place] [address] Care Team Providers Care Plastics Factory Worker Name Role Phone Unavailable Primary Care Provider Unavailabl e Encounter Details Date Type Department Care Team (Late st Contact Info) Description 12/16/2020 Transcribed Document [facility] [place] [place] [facility] [place] [address] ProviderJaime MD [address] [place], [place] [address] Social History Tobacco Use Types Packs/Day Years [...] EDT Performed On: 12/16/2020 7:48 EDT by CIAAR WOODS RN Event Note Event Date/Time : 12/16/2020 7:46 EDT Description of Event : Patient discharged home due to surrgery being cancelled CIARA WOODS, RN - 12/16/2020 7:48 EDT documented in this encounter Plan of Treatment Not on file documented as of this encounter Visit Diagnoses Not on filedocumented in this encounter
--- OUTSIDE RECORDS SUMMARY | 2024-10-11 12:02 | XMS_ITS | Encounter Summary ---
Author Organization [employer] ([place], [place], [place], [place]) Address [address] [place] [address] Care Team Providers Care Parking Garage Manager Name Role Phone Unavailable Primary Care Provider Unavailabl e Encounter Details Date Type Department Care Team (Late st Contact Info) Description 12/23/2020 Transcribed Document [facility] [place] Family Medicine [address] [place] [address] ProviderJaime MD [address] [place], [place] [id number] Social History Tobacco Use Types Packs/Day Years [...] III /Sex: 1950 Male Med Rec #: [id number] Physician: KAYLA ZIMMERMAN JR, JR, MD-ORT Financial #: [id number] Pt. Type: O Room/Bed: Admit/Disch: 12/23/20 04:16:00 - [place] [facility] [place] Case Times Entry 1 In Preop 12/23/20 05:15:00 Ready for Holding n/a Room Patient Ready for 12/23/20 06:42:00 Surgery Patient Out of Preop 12/23/20 07:50:00 Patient Out of n/a Holding Room Last Modified By: Aden Boyce RN 12/23/20 07:46:17 [facility] PreOp Case Times Audit 12/23/20 07:46:17 Electrician Third: BLANKDanny Modifier: ADENVERNADanny <+> 1 Patient Out of Preop Finalized By: Aden Boyce, RN Document Signatures Signed By: Aden Boyce RN 12/23/20 07:46 documented in this encounter Plan of Treatment Not on file documented as of this encounter Visit Diagnoses Not on filedocumented in this encounter
--- OUTSIDE RECORDS SUMMARY | 2024-10-11 12:02 | XMS_ITS | Data Portability ---
Author Organization [facility] Address [address] [place] [address] [address] [place] [address] Assessment Encounter Date Assessment Date Assessment LastModified [...] By Organization Details Last Modified Time 11/23/2018 [id number] shoulder arthritis: exercises [email or web address] Not available 11/29/2018 [...] Details Recorded Time Testicula r hypofunct ion 410158919 Active 2015 From Automated Load;Prov ider: Sg Orourke Jr;St atus: Active Not Available [facility] 7 02:42:07 Reduced libido 9688150 Active 2015 From Automated Load;Prov ider: Sg Orourke Jr;St atus: Active Not Available [facility] 7 06:28:36 Impotence Active 2015 From Automated Load;Prov ider: Sg Orourke Jr;St atus: Active Not Available [facility] 7 07:22:50 Lower urinary tract symptoms due to benign prostatic hypertrop hy 14192015073 101 Active 2015 From Automated Load;Prov ider: Sg Orourke Jr;St atus: Active Not Available [facility] 7 08:26:38 Problem Notes None recorded. Medical Equipment None Reported. Allergies Allergen ID Allergen Name Allergen Category Reaction Reaction Severity Criticality Documentation Date Start Date Code Code System Note Provider Name and Address Organization Details Recorded Time 987905 Product containin g penicilli n (product) medicatio n Not available Not available Not available 05/09/20162014 94369 8001 SNOMED Comme nt: Creat ed By: Annita woods Date: 2014 10:23 :22 AM; Not Available [facility] 7 10:59:12 Medications Name Sig Start [...] Updated DateTime 11/23/2018 175.26 cm 33.1 kg/m2 540379.69 g 132/80 mm[Hg] Rebeca Christopherls [facility] 11/23/2018 09:33:02 Social History None recorded. Functional Status None recorded. Mental Status None recorded. Family History Nothing Reported. Medical History Condition Response Allergies/Hayfever Y Anxiety/Depression N Thyroid Disease N Heart Conditions Y Hernia Y Migraines N COPD N Pneumonia Y Anesthesia Complications N Diabetes Y Arthritis Y Seizures/Epilepsy N Cancer N Stroke N Asthma N Blood Thinners Y Sleep Apnea Y High Cholesterol Y Liver Disease N Hypertension Y Kidney Disease N Past Encounters Encounter ID Performer Location Encounter Start Date Encounter Closed Date Diagnosis/Indication Diagnosis SNOMED-CT Code Diagnosis ICD10 Code Diagnosis Note [id number] [facility] [place] [address] 07/06/2016 15:48:49 07/06/2016 15:48:49 [id number] Skinny MONDRAGON MD [facility] [address] [place] [address] 11/23/2018 08:51:17 11/27/2018 15:10:20 Localized, primary osteoarthritis of the shoulder region 612108231 M19.019 Health Concerns Section Related Observation LastModified by Organization Detai ls LastModified Time None Recorded Concern Status LastModified by Organization Details LastModified Time None Recorded Advance Directives Directive None Recorded Payers Insurance Date Sequence Insurance Name Policy Number Policy Neal Covered Member ID Neal Member ID Guarantor Name 07/24/2020 1 [employer] (MEDICARE REPLACEMENT/A DVANTAGE - PPO) [id number] Harvey Alford III [id number] Harvey Alford Notes Date Note Type Note Provider Name and Address Organization Details Recorded Time 11/23/2018 text/html The maximal problems are with abduction and rotation and pushing with the arm. Skinny MONDRAGON MD [address] [facility], [place], [address], [facility] 11/29/2018 09:27:12
--- OUTSIDE RECORDS SUMMARY | 2024-10-11 12:02 | XMS_ITS | Encounter Summary ---
Author Organization [employer] ([place], [place], [place], [place]) Address [address] [place] [address] Care Team Providers Care Card Placer Name Role Phone Unavailable Primary Care Provider Unavailabl e Encounter Details Date Type Department Care Team (Late st Contact Info) Description 12/23/2020 Transcribed Document [facility] Family Medicine [address] [place] [address] ProviderJaime MD [address] [place] [address] Social History Tobacco Use Types [...] Source : Measured Height Entry Format : [place] Height, Feet : 5 ft(Converted to: 152 cm, 60 Inch) Height, Inches : 9 Inch(Converted to: 0 ft 9 Inch, 22.86 cm) Clinical Height : 175.26 cm Weight Source : Standing scale Weight Entry Format : [place] Clinical Dosing Weight : 96.36 kg Weight, Pounds : 212 lb Body Surface Area (BSA) : 2.12 m2 Body Mass Index : 31.4 kg/m2 (HI) Lucinda Body Weight : 70 kg Georgie Boyce [...] (Last Updated: 12/09/2020 15:40:36 EDT by Michaela Alvarze Rn) Alcohol: Alcohol Use History No. Use [...] Georgie Boyce RN - 12/23/2020 6:56 EDT [place] Suicide Severity Rating Scale (C-SSRS) CSSRS Past [...] #2 Relationship : . Primary Language : Iranian Preferred Communication Mode : Verbal Communication Barrier : None I&C Technician Needed : No Georgie Boyce RN [...]
--- OUTSIDE RECORDS SUMMARY | 2024-10-11 12:02 | XMS_ITS | Encounter Summary ---
Author Organization [employer] ([place], [place], [place], [place]) Address [address] [place] [address] Care Team Providers Care Insurance Salesman Name Role Phone Unavailable Primary Care Provider Unavailabl e Encounter Details Date Type Department Care Team (Late st Contact Info) Description 12/23/2020 Transcribed Document [facility] Family Medicine [address] [place] [address] ProviderJaime MD [address] [place], [place] [id number] Social History Tobacco Use Types Packs/Day Years [...] knee 12/23/2020 12:00 Atherosclerotic heart disease of yocha dehe coronary artery without angina pectoris 12/23/2020 12:00 [...] EDT Electronically signed by Adolph Crowder Conversion Database Software Technician Cerner at 07/09/2022 10:50 AM CDT documented in this encounter Plan of Treatment Not on file documented as of this encounter Visit Diagnoses Not on filedocumented in this encounter
--- OUTSIDE RECORDS SUMMARY | 2024-10-11 12:02 | XMS_ITS | Clinical Summary ---
Author Organization Healthcare Address [address] [id number] Care Team Providers Care Retail Department Reset Name Role Phone Markus Huang PRESS ASSISTANT Primary Care Provider Allergies Active Allergy Reactions [...] Wellness (AWV) 1950 UKY-Infant/Child/Adol SDOH Screenings 1950 [id number] Vaccine (#1) 1957 Diabetes: Dental Exam 1962 [...] Recently Relevant to Health Maintenance Results * [place] Hepatitis C Antibody (02/13/2019 6:35 PM EST) [place] Hepatitis C Ab NEGATIVE Reference Range: Negative [facility] 02/13/2019 6:35 PM EST 02/13/2019 7:06 PM EST us Major Diaz MD LAB BLOOD ORDERABLES Final Re sult [facility] from Last 3 Months or Most Recently Relevant to Health Maintenance Insurance [facility] MEDICARE Care Teams Retail Department Reset Relationship Specialty Start Date End Date Markus Huang APRN [address] [place] [address] [place] [address] PCP - General 10/10/22
--- OUTSIDE RECORDS SUMMARY | 2024-10-11 12:02 | XMS_ITS | Encounter Summary ---
Author Organization [employer] ([place], [place], [place], [place]) Address [address] [place] [address] Care Team Providers Care Epic Cadence Specialists Name Role Phone Unavailable Primary Care Provider Unavailabl e Encounter Details Date Type Department Care Team (Late st Contact Info) Description 12/23/2020 Transcribed Document [facility] Family Medicine [facility] [place] [address] ProviderJaime MD [address] [place] [address] Social History Tobacco Use Types Packs/Day [...] 12/23/2020 7:23 EDT Electronically signed by Lakesha, [facility] Conversion Storeroom Clerk Cerner at 07/09/2022 10:51 AM CDT documented in this encounter Plan of Treatment Not on file documented as of this encounter Visit Diagnoses Not on filedocumented in this encounter
--- OUTSIDE RECORDS SUMMARY | 2024-10-11 12:02 | XMS_ITS | Encounter Summary ---
[facility] Organization [facility] Address [address] [place] [phone] Care Team Providers Care Curb And Gutter Laborer Name Role Phone Columba Rodríguez APRN Primary Care Provider [phone] Reason for Visit * Reason Comments Med Refill Encounter Details Date Type Department Care Team (Late Contact Info) Description 09/01/2023 Refill [facility] [address] [place] [address] Isai Tran MD [address] [place] [address] Social History Tobacco Use Types Packs/Day Years Used Date Smoking Tobacco: Never Smokeless Tobacco: Never Alcohol Use Standard Drinks/Week Comments Never 0 (1 standard drink = 0.6 oz pur e alcohol) Sex and Gender Information Value Date Recorded Sex Assigned at Not on file Legal Sex Male 4:32 PM EDT Gender Identity Not on file Sexual Orientation Not on file documented as of this encounter Plan of Treatment Upcoming Encounters Date Type Department Care Team (Late Contact Info) Description 12/13/2024 11:15 AM EDT Office Visit [facility] [address] [place] [address] Cash Khanna DO [address] [facility] [address] [place], [place] [phone] documented as of this encounter Visit Diagnoses Not on filedocumented in this encounter Care Teams Curb And Gutter Laborer Relationship Specialty Start Date End Date Columba Rodríguez APRN [address] [phone] PCP - General Family Medicine 11/10/23 documented as of this encounter
--- OUTSIDE RECORDS SUMMARY | 2024-10-11 12:02 | XMS_ITS | Encounter Summary ---
Author Organization [employer] ([place], [place], [place]) Address [address] [place] [address] Care Team Providers Care House Carpenter Name Role Phone Unavailable Primary Care Provider Unavailabl e Encounter Details Date Type Department Care Team (Late st Contact Info) Description 12/23/2020 Transcribed Document [facility] Family Medicine [address] [place] [address] ProviderJaime MD [address] [place] [id number] Social History Tobacco Use Types Packs/Day Years [...] III /Sex: 1950 Male Med Rec #: [id number] Physician: KAYLA ZIMMERMAN JR, JR, MD-ORT Financial #: [id number] Pt. Type: O Room/Bed: Admit/Disch: 12/23/20 04:16:00 - Institution: [facility] Main OR PostOp Case Times Entry 1 In PACU II 12/23/20 11:13:00 Ready for PACU II 12/23/20 13:49:00 Discharge Discharge from PACU 12/23/20 13:49:00 II Last Modified By: Rosa Montes RN 12/23/20 14:04:05 Finalized By: Rosa Montes, RN Document Signatures Signed By: Rosa Montes RN 12/23/20 14:04 Electronically signed by Lakesha [facility] Conversion Embossing Tool Setter Cerner at 07/09/2022 10:45 AM CDT documented in this encounter Plan of Treatment Not on file documented as of this encounter Visit Diagnoses Not on filedocumented in this encounter
--- OUTSIDE RECORDS SUMMARY | 2024-10-11 12:02 | XMS_ITS | Encounter Summary ---
Author Organization [employer] ([place], [place], [place], [place]) Address [address] [place] [address] Care Team Providers Care Sales Incentive Analyst Name Role Phone Unavailable Primary Care Provider Unavailabl e Encounter Details Date Type Department Care Team (Late st Contact Info) Description 12/22/2020 Transcribed Document [facility] Family Medicine [facility] [place] [address] ProviderJaime MD [address] [place] [id number] Social History Tobacco Use Types Packs/Day Years [...] or 4 frozen water bottles in the [facility] CUBE. Continue to use Incentive Spirometer [...] Barley. Bulgur wheat. Millet. Bran muffins. Popcorn. [place] wafer crackers. Vegetables Sweet potatoes. Spinach. Kale. Artichokes. Cabbage. Broccoli. Green peas. Carrots. Squash. Fruits Berries. Pears. Apples. Oranges. Avocados. Prunes and raisins. Dried figs. Meats and Other Protein Sources [place], kidney, amador, and soy beans. Split peas. [...] 1 katy has 11 g of protein. [place] seeds ??? 1 oz has 5.5 g [...] the floor. Place frequently used items in qjbu-mo-zquxb places Keep electrical cables out of the [...] ? Using the bathroom. ? Using household trace evidence technician or toxic chemicals. ? Touching or taking [...] activities are safe for you. ??? Take hjbw-tpb-cllpjkc and prescription medicines only as told by [...] provider. Document Revised: 03/16/2018 Document Reviewed: 10/27/2017 [email or web address] Textbook Time Patient Education ? 2020 [email or web address] documented in this encounter Plan of Treatment Not on file documented as of this encounter Visit Diagnoses Not on filedocumented in this encounter
--- OUTSIDE RECORDS SUMMARY | 2024-10-11 12:02 | XMS_ITS | Encounter Summary ---
Author Organization [employer] ([place], [place], [place], [place]) Address [address] [place] [address] Care Team Providers Care Rocket Engine Component Mechanic Name Role Phone Unavailable Primary Care Provider Unavailabl e Encounter Details Date Type Department Care Team (Late st Contact Info) Description 12/23/2020 Transcribed Document [facility] Family Medicine [address] [place] [address] ProviderJaime MD [address] [place] [phone] Social History Tobacco Use Types Packs/Day Years [...]
--- OUTSIDE RECORDS SUMMARY | 2024-10-11 12:02 | XMS_ITS | Encounter Summary ---
Author Organization [employer] ([place], [place], [place], [place]) Address [address] [place] [address] Care Team Providers Care Cigarette Inspector Name Role Phone Unavailable Primary Care Provider Unavailabl e Encounter Details Date Type Department Care Team (Late st Contact Info) Description 12/23/2020 Transcribed Document [facility] [place] Family Medicine [facility] [place] [address] ProviderJaime MD [address] [place] [id number] Social History Tobacco Use Types Packs/Day Years [...]
--- OUTSIDE RECORDS SUMMARY | 2024-10-11 12:02 | XMS_ITS | Encounter Summary ---
Author Organization [employer] ([place], [place], [place], [place]) Address [address] [place] [address] Care Team Providers Care Gas Substation Operator Name Role Phone Unavailable Primary Care Provider Unavailabl e Encounter Details Date Type Department Care Team (Late st Contact Info) Description 12/24/2020 Transcribed Document [facility] Family Medicine [facility] [place] [address] ProviderJaime MD [address] [place] [id number] Social History Tobacco Use Types Packs/Day Years [...] right total knee replacement, final condition improved. /[id number] MD RAO Gibbs Jr/DIANNA / RAO / MODL /[id number] Electronically signed by Adolph Crowder Conversion Compensation And Benefits Manager Cerner at 07/09/2022 10:52 AM CDT documented in this encounter Plan of Treatment Not on file documented as of this encounter Visit Diagnoses Not on filedocumented in this encounter
--- OUTSIDE RECORDS SUMMARY | 2024-10-11 12:02 | XMS_ITS | Encounter Summary ---
Author Organization [employer] ([place], [place], [place], [place]) Address [address] [place] [address] Care Team Providers Care Commercial Lender Name Role Phone Unavailable Primary Care Provider Unavailabl e Encounter Details Date Type Department Care Team (Late st Contact Info) Description 12/23/2020 Transcribed Document [facility] [place] [address] ProviderJaime MD [address] [place], [place] [id number] Social History Tobacco Use Types Packs/Day Years [...] III /Sex: 1950 Male Med Rec #: [id number] Physician: KAYLA ZIMMERMAN JR, JR, MD-ORT Financial #: [id number] Pt. Type: O Room/Bed: Admit/Disch: 12/23/20 04:16:00 - Institution: [facility] IntraOp Case Attendance Entry 1 Entry 2 Entry 3 Case Attendee KAYLA ZIMMERMAN JR, JR, TARA MERA APRN,HAYDER KOROMA, LUCIE CHANCEORT Role Performed Surgeon/Proceduralist, DOLL SURGEON/Nurse Director Family 911 Emergency Dispatcher, First First Time In 12/23/20 07:51:00 12/23/20 [...] 5 Entry 6 Case Attendee Stephan Boyce, FUSE CUTTER/DATA SOFTWARE ENGINEER GET ARIAS ST Peel, Polly, Scub Tech Role Performed Cover Inspector, First Scrub, First Scrub, Second Time In [...] Case Attendee OTHER, ATTENDEE #1 NGOZI PETTY, DOLL SURGEON Role Performed Vendor DOLL SURGEON/Nurse Director Family Time In 12/23/20 07:51:00 12/23/20 08:29:00 Time Out 12/23/20 09:55:00 12/23/20 08:41:00 Procedure Knee Total Joint Knee Total Joint Replacement Replacement Other Attendee FOREST BURTON DOLL SURGEON BREAK Superficial Wound Closed By: Thom Modified By: HAYDER EASON RN LONGSWORTH, GARY, LUCIE 12/23/20 07:19:17 12/23/20 08:29:30 [facility] IntraOp Case Attendance Audit 12/23/20 09:55:23 Case Management Associate: LONGGA Modifier: LONGGA 1 <+> Time Out [...] Procedure Knee Total Joint Replacement 12/23/20 08:48:55 Case Management Associate: LONGGA Modifier: LONGGA 8 <+> Time Out 8 <*> Procedure Knee Total Joint Replacement 12/23/20 08:29:30 Case Management Associate: LONGGA Modifier: LONGGA <+> 8 Case Attendee <+> 8 Role Performed <+> 8 Time In <+> 8 Procedure <+> 8 Other Attendee 12/23/20 08:25:18 Case Management Associate: LONGGA Modifier: LONGGA 1 <+> Time In [...] Procedure Knee Total Joint Replacement 12/23/20 07:25:50 Case Management Associate: LONGGA Modifier: LONGGA <+> 1 Procedure 2 [...] [facility] IntraOp Case Times Audit 12/23/20 09:55:21 Case Management Associate: LONGGA Modifier: LONGGA <+> 1 Out Room Time <+> 1 Stop Time <+> 1 Stop Time 12/23/20 08:21:13 Case Management Associate: LONGGA Modifier: LONGGA <+> 1 Start Time [...] S[facility] IntraOp Counts Verification Audit 12/23/20 09:01:12 Case Management Associate: LONGGA Modifier: LONGGA <+> 2 Procedure <+> [...] HAYDER EASON, LUCIE, Accompanied by TARA MERA APRN,DOLL SURGEON Last Modified By: HAYDER EASON RN 12/23/20 09:08:10 S[facility] IntraOp Dressing and Packing Entry 1 Type Dressing Location RIGHT KNEE Wound Dressing Item Papo Supplemental Limb immobilizer, Cold Applications pack Applied By Stephan Boyce, FUSE CUTTER/DATA SOFTWARE ENGINEER Other Comments JONATHAN WOUND DRESSING Last Modified [...] RN 12/23/20 07:24:40 S[facility] IntraOp General Case Director Employment 1 Case Information OR OR 02 SJE Case Level 1 Room Verified Yes Wound Class I - Clean Specialty Orthopedic Anesthesia Type General ASA Class 3 Diagnosis Preop Diagnosis DEGENERATIVE JOINT DISEASE, RIGHT KNEE Postop Same As Preop Yes Postop Diagnosis DEGENERATIVE JOINT DISEASE, RIGHT KNEE Last Modified By: HAYDER EASON RN 12/23/20 08:27:58 [facility] IntraOp General Case Data Audit 12/23/20 08:27:58 Case Management Associate: YVETTE Modifier: LONGGA 1 <*> OR OR [...] PATELLA ITOTAL JIGS CR ITOTAL ID Identification [id number] Description Implant Quantity 2 1 1 Implant Site RIGHT KNEE RIGHT KNEE RIGHT KNEE Implant Identification Model Number Implant [id number] Identification Serial Number Implant [id number] Identification Lot Number Implant Blake:Blake Conformis Conformis Identification Orthopaedics Kiln Head House Operator Name: Implant [id number] Identification Catalog Number Implant Size Implant Has an Yes Yes Yes Expiration Date Implant Expiration 01/24/22 09/23/22 12/24/21 Date Wasted Radioactive Material Time Implanted Tissue Implant Continue for Tissue Implant Documentation Tissue Identification Number Graft Prep Per Kiln Head House Operator Instructions: Tissue Preparation Method: Reconstitution Solution: Reconstitution Solution Lot Number Reconstitution Solution Expiration Date: Thawing Solution Thawing Solution Lot Number Thawing Solution Expiration Date Preparation Materials, Other Preparation Materials, Other Lot Number Preparation Materials, Other Expiration Date Tissue Prepared/Processed By Kiln Head House Operator Paperwork Completed Implant Type Comment Last Modified [...] KT CR FULL ITOTAL ID Identification KLEVER [id number] Description Implant Quantity 1 1 1 Implant Site RIGHT KNEE RIGHT KNEE RIGHT KNEE Implant Identification Model Number Implant [id number] Identification Serial Number Implant Identification Lot Number Implant Conformis Conformis Conformis Identification Kiln Head House Operator Name: Implant [id number] Identification Catalog Number Implant Size Implant Has an Yes Yes Yes Expiration Date Implant Expiration 12/24/21 12/24/21 12/24/21 Date Wasted Radioactive Material Time Implanted Tissue Implant Continue for Tissue Implant Documentation Tissue Identification Number Graft Prep Per Kiln Head House Operator Instructions: Tissue Preparation Method: Reconstitution Solution: Reconstitution Solution Lot Number Reconstitution Solution Expiration Date: Thawing Solution Thawing Solution Lot Number Thawing Solution Expiration Date Preparation Materials, Other Preparation Materials, Other Lot Number Preparation Materials, Other Expiration Date Tissue Prepared/Processed By Kiln Head House Operator Paperwork Completed Implant Type Comment Last Modified By: HAYDER EASON RN LONGSWORTH, GARY, RN LONGSWORTH, GARY, RN 12/23/20 08:49:46 12/23/20 08:51:06 12/23/20 08:52:02 SJE IntraOp Implant Log Audit 12/23/20 08:52:02 Case Management Associate: LONGGA Modifier: LONGGA <+> 6 Implant Identification Description <+> 6 Implant Identification Serial Number <+> 6 Implant Identification Kiln Head House Operator Name: <+> 6 Implant Expiration Date <+> 6 Implant Site <+> 6 Implant Quantity <+> 6 Implant Identification Catalog Number <+> 6 Implant Type <+> 6 Implant Has an Expiration Date <+> 6 Type 12/23/20 08:51:06 Case Management Associate: LONGGA Modifier: LONGGA <+> 5 Implant Identification Description <+> 5 Implant Identification Serial Number <+> 5 Implant Identification Kiln Head House Operator Name: <+> 5 Implant Expiration Date <+> 5 Implant Site <+> 5 Implant Quantity <+> 5 Implant Identification Catalog Number <+> 5 Implant Type <+> 5 Implant Has an Expiration Date <+> 5 Type 12/23/20 08:49:46 Case Management Associate: LONGGA Modifier: LONGGA <+> 4 Implant Identification Description <+> 4 Implant Identification Serial Number <+> 4 Implant Identification Kiln Head House Operator Name: <+> 4 Implant Expiration Date <+> 4 Implant Site <+> 4 Implant Quantity <+> 4 Implant Identification Catalog Number <+> 4 Implant Type <+> 4 Implant Has an Expiration Date <+> 4 Type 12/23/20 08:48:24 Case Management Associate: LONGGA Modifier: LONGGA <+> 3 Implant Expiration Date 12/23/20 08:48:23 Case Management Associate: LONGGA Modifier: LONGGA <+> 3 Implant Identification Description <+> 3 Implant Identification Serial Number <+> 3 Implant Identification Kiln Head House Operator Name: <+> 3 Implant Site <+> 3 Implant Quantity <+> 3 Implant Identification Catalog Number <+> 3 Implant Type <+> 3 Implant Has an Expiration Date <+> 3 Type 12/23/20 08:47:19 Case Management Associate: LONGGA Modifier: LONGGA <+> 2 Implant Identification Description <+> 2 Implant Identification Lot Number <+> 2 Implant Identification Kiln Head House Operator Name: <+> 2 Implant Expiration Date <+> [...] w/ vancomycin 1Gm vial - epinephrine 1:100,000 [id number] 20ml vial - [id number] Combo Med List 4 - Combo Med [...] SJE IntraOp Medication Admin Audit 12/23/20 08:39:42 Case Management Associate: LONGGA Modifier: LONGGA <+> 5 Medication/Irrigant <+> [...] JR, MD-ORT, SAMARIA, TARA, URSULA,PAPO, Austen, Stephan, FUSE CUTTER/DATA SOFTWARE ENGINEER Position Verified Positioning Yes Verified by Anesthesia [...] REPLACEMENT Description Primary Procedure Yes Primary Surgeon KALYA ZIMMERMAN JR, JR, MD-ORT Start 12/23/20 08:11:00 Stop 12/23/20 09:53:00 Anesthesia Type General Specialty Orthopedic Wound Class I - Clean Last Modified By: HAYDER EASON RN 12/23/20 07:25:49 SJE IntraOp Surgical Procedures Audit 12/23/20 09:51:54 Case Management Associate: LONGGA Modifier: LONGGA 1 <*> Procedure Knee Total Joint Replacement 1 <+> Stop 12/23/20 08:21:22 Case Management Associate: LONGGA Modifier: LONGGA <+> 1 Start SJE IntraOp Temp Regulation Devices Entry 1 Temp Regulation Temperature Warm blankets Regulation Device Temperature Upper body Regulation Site Temperature SAMARIA, TARA, QUALITY ENGINEER,DOLL SURGEON Regulation Device Applied by Last Modified By: [...] SJE IntraOp Time Out Audit 12/23/20 08:31:31 Case Management Associate: YVETTE Modifier: YVETTE 1 <+> Surgeon 1 [...] Padded Under Cuff Applied By Stephan Boyce, KATHI/DATA SOFTWARE ENGINEER Times Start Time 12/23/20 08:10:00 Stop Time 12/23/20 08:59:00 Last Modified By: HAYDER EASON RN 12/23/20 09:00:54 SJE IntraOp Tourniquet Audit 12/23/20 09:00:54 Case Management Associate: YVETTE Modifier: YVETTE <+> 1 Stop Time Case Comments <None> Finalized By: HAYDER EASON, RN Document Signatures Signed By: HAYDER EASON RN 12/23/20 09:59 Electronically signed by Lakesha [facility] Conversion Handbag Framer Cerner at 07/09/2022 10:43 AM CDT documented in this encounter Plan of Treatment Not on file documented as of this encounter Visit Diagnoses Not on filedocumented in this encounter
--- OUTSIDE RECORDS SUMMARY | 2024-10-11 12:02 | XMS_ITS | Encounter Summary ---
Author Organization [employer] ([place], [place], [place], [place]) Address [address] [place] [address] Care Team Providers Care Anodize Machine Operator Name Role Phone Unavailable Primary Care Provider Unavailabl e Encounter Details Date Type Department Care Team (Late st Contact Info) Description 12/09/2020 Transcribed Document [facility] Family Medicine [address] [place] [address] ProviderJaime MD [address], [place] [id number] Social History Tobacco Use Types Packs/Day Years [...] : Yes/enroll in meds to bed program Michaeal Alvarez Rn - 12/09/2020 15:30 EDT documented in this encounter Plan of Treatment Not on file documented as of this encounter Visit Diagnoses Not on filedocumented in this encounter
--- OUTSIDE RECORDS SUMMARY | 2024-10-11 12:02 | XMS_ITS | Encounter Summary ---
Author Organization [employer] ([place], [place], [place], [place]) Address [address] [place] [address] Care Team Providers Care News Wire Photo Operator Name Role Phone Unavailable Primary Care Provider Unavailabl e Encounter Details Date Type Department Care Team (Late st Contact Info) Description 12/23/2020 Transcribed Document [facility] [place] [address] [place] [address] ProviderJaime MD [address] [place], [place] [id number] Social History Tobacco Use Types Packs/Day Years [...]
[2024-10-11 13:13] LABS: C-Reactive Protein 4.0 mg/L (0-4)
[2024-10-14 14:10] LABS: Antinuclear Antibodies (ANA) Negative (Negative)
[2024-10-17 02:33] LABS: Anti-CCP Abs,IgG and IgA (RDL) < 20 Units (<20)
== END 2024-10-11 23:59 | disposition home or self-care (01) ==
LOC: LAB 11:59
PROVIDERS: PCP Family Medicine; Visit Provider Internal Medicine Pulmonary Disease
DX: J84.9 Interstitial pulmonary disease, unspecified (principal); D72.10 Eosinophilia, unspecified
CPT/HCPCS: 36415; 86036; 86038; 86140; 86200; 86225; 86235; 86431; 86682

== ENCOUNTER 2024-10-22 07:48 | Outpatient (CLI) | payer MEDICARE, SELFPAY ==
--- OUTSIDE RECORDS SUMMARY | 2024-10-22 07:50 | XMS_ITS | Clinical Summary ---
Author Organization [employer] ([place], [place], [place], [place]) Address [address] [place], [place] [phone] Care Team Providers Care Geopolitics Teacher Name Role Phone Unavailable Primary Care [...] Date Milton rded Speak language other than Danish at home Not on file 01/23/2024 Want [...] Plan of Treatment Not on file Insurance [facility] MEDICARE ADVANTAGE
--- OUTSIDE RECORDS SUMMARY | 2024-10-22 07:50 | XMS_ITS ---
Laboratory report Created on: October 19, 2024 AYLEEN BLACK : 1950 Sex: Male Author Organization Unknown PROBLEMS Problems List Code Description RESULTS Laboratory Orders Date Order Code Test 2024-10-11 607155 ANTI-DSDNA ANTIB ODIES 2024-10-11 [id number] ANTINEUTROPHIL C YTOPLASMIC AB 2024-10-11 179642 SJOGREN'S AB, AN TI-SS-A/-SS-B 2024-10-11 [id number] STRONGYLOIDES IG G ANTIBODY 2024-10-11 193393 ANTINUCLEAR AB M ULTIPLEX RFX 9 2024-10-11 [id number] SUMMERS/AERIAL GUNNER ANTIBO DIES 2024-10-11 346161 ANTI-ANN MARIE-1 2024-10-11 [id number] ANTI-CCP AB, IGG + IGA (RDL) 2024-10-11 [id number] RF, IGM BY EIA ( RDL) Laboratory Results Date LOINC Test Value Unit Reference Range Interpre tation 2024-10-11 5130-0 ANTI-DNA (DS) AB QN <1 IU/ML 0-9 2024-10-11 47930-8 CYTOPLASMIC (C-ANCA) NANCA TITER NEG:<1:2 0 2024-10-11 27878-0 PERINUCLEAR (P-ANCA) NANCA TITER NEG:<1:2 0 2024-10-11 15759-7 ATYPICAL PANCA NANCA TITER NEG:<1:20 2024-10-11 48487-6 SJOGREN'S ANTI-SS-A <0.2 AI 0.0-0.9 2024-10-11 79461-5 SJOGREN'S ANTI-SS-B <0.2 AI 0.0-0.9 2024-10-11 57884-5 STRONGYLOIDES IG G ANTIBODY N NEGATIVE 2024-10-11 8061-4 JAZMINE DIRECT N NEGATIVE 2024-10-11 40119-3 SUMMERS/AERIAL GUNNER ANTIBODIES <0.2 AI 0.0-0.9 2024-10-11 60971-2 ANTI-ANN MARIE-1 <0.2 AI 0.0-0.9 2024-10-11 02420-1 ANTI-CCP AB, IGG + IGA (RDL) <20 UNITS <20 2024-10-11 9338-5 RF, IGM BY EIA (RDL) <7 U <7
--- OUTSIDE RECORDS SUMMARY | 2024-10-22 07:50 | XMS_ITS | Encounter Summary ---
Author Organization [employer] ([place], [place], [place], [place]) Address [address] [place] [address] Care Team Providers Care Cream Maker Name Role Phone Unavailable Primary Care Provider Unavailabl e Encounter Details Date Type Department Care Team (Late st Contact Info) Description 12/22/2020 Transcribed Document [facility] Family Medicine [facility] [place] [address] ProviderJaime MD [address], [place] [phone] Social History Tobacco Use Types Packs/Day Years [...] or 4 frozen water bottles in the [facility] CUBE. Continue to use Incentive Spirometer [...] Barley. Bulgur wheat. Millet. Bran muffins. Popcorn. [place] wafer crackers. Vegetables Sweet potatoes. Spinach. Kale. Artichokes. Cabbage. Broccoli. Green peas. Carrots. Squash. Fruits Berries. Pears. Apples. Oranges. Avocados. Prunes and raisins. Dried figs. Meats and Other Protein Sources [place], kidney, amador, and soy beans. Split peas. [...] 1 katy has 11 g of protein. [place] seeds ??? 1 oz has 5.5 g [...] the floor. Place frequently used items in eega-nb-urrqx places Keep electrical cables out of the [...] ? Using the bathroom. ? Using household tobacco packer or toxic chemicals. ? Touching or taking [...] activities are safe for you. ??? Take umrs-lti-egsutez and prescription medicines only as told by [...] provider. Document Revised: 03/16/2018 Document Reviewed: 10/27/2017 [employer] Patient Education ? 2020 [employer] documented in this encounter Plan of Treatment Not on file documented as of this encounter Visit Diagnoses Not on filedocumented in this encounter
--- OUTSIDE RECORDS SUMMARY | 2024-10-22 07:50 | XMS_ITS | Encounter Summary ---
Author Organization [employer] ([place], [place], [place], [place]) Address [address] [place] [address] Care Team Providers Care Planer Tailer Name Role Phone Unavailable Primary Care Provider Unavailabl e Encounter Details Date Type Department Care Team (Late st Contact Info) Description 12/09/2020 Transcribed Document [facility] [place] [address] [place] [address] ProviderJaime MD [address] [place] [phone] Social History Tobacco Use Types Packs/Day Years [...] : Standing scale Weight Entry Format : [place] Clinical Dosing Weight : 95.91 kg Weight, Pounds : 211 lb Body Surface Area (BSA) : 2.12 m2 Body Mass Index : 31.2 kg/m2 (HI) [place] Body Weight : 70 kg Michaela Alvarez Rn - 12/09/2020 16:02 EDT Height Source : Stated Height Entry Format : [place] Michaela Alvarez Rn - 12/09/2020 15:57 EDT [...] Michaela Alvarez Rn - 12/09/2020 16:02 EDT Wright Suicide Severity Rating Scale (C-SSRS) CSSRS Past [...] Mode : Verbal Communication Barrier : None Hiv/Aids Care Nurse Needed : No Michaela Alvarez Rn - [...]
--- OUTSIDE RECORDS SUMMARY | 2024-10-22 07:50 | XMS_ITS | Encounter Summary ---
Author Organization [employer] ([place], [place], [place], [place]) Address [address] [place] [address] Care Team Providers Care Dye Range Operator Name Role Phone Unavailable Primary Care Provider Unavailabl e Encounter Details Date Type Department Care Team (Late st Contact Info) Description 12/23/2020 Transcribed Document [facility] [place] [address] ProviderJaime MD [address] [place] [phone] Social History Tobacco Use Types Packs/Day Years [...]
--- OUTSIDE RECORDS SUMMARY | 2024-10-22 07:50 | XMS_ITS | Encounter Summary ---
Author Organization [employer] ([place], [place], [place], [place]) Address [address] [place] [address] Care Team Providers Care Fermenter Helper Name Role Phone Unavailable Primary Care Provider Unavailabl e Encounter Details Date Type Department Care Team (Late st Contact Info) Description 12/09/2020 Transcribed Document [facility] [place] [facility] [place] [address] ProviderJaime MD [address] [place] [phone] Social History Tobacco Use Types Packs/Day Years [...] Appearance CLEAR2 12/09/2020 16:01 EDT Urine Specific [place] *1.026 12/09/2020 16:01 EDT Urine pH Dipstick [...]
--- OUTSIDE RECORDS SUMMARY | 2024-10-22 07:50 | XMS_ITS | Referral Summary ---
Author Organization [facility] ([place], [place], [place], [place]) Address [address] [place] [address] Care Team Providers Care It Telecom Technician Name Role Phone Unavailable Primary Care [...] Date Milton rded Speak language other than Khmer at home Not on file 01/23/2024 Want [...] Plan of Treatment Not on file Insurance [facility] MEDICARE ADVANTAGE
--- OUTSIDE RECORDS SUMMARY | 2024-10-22 07:50 | XMS_ITS | Encounter Summary ---
[facility] Address [address] [place] [phone] Care Team Providers Care Building Insulation Supervisor Name Role Phone Columba Rodríguez APRN Primary Care Provider [phone] Reason for Visit * Reason Comments Med Refill Encounter Details Date Type Department Care Team (Late st Contact Info) Description 10/18/[address] [facility] RHEUMATOLOGY 330 [facility] [address] [place] [address] Adrianne Hdez APRN 330 [facility] [address] [place], [place] [phone] Social History Tobacco Use Types Packs/Day Years [...] encounter Miscellaneous Notes * Telephone Encounter - Paulina Norman MA - 10/21/2024 11:33 AM EDT Rx Refill Note Requested Prescriptions Pending Prescriptions Disp Refills cyclobenzaprine (FLEXERIL) 5 MG tablet [Pharmacy Med Name: Cyclobenzaprine HCl 5 MG Oral Tablet] 270 tablet 0 Sig: TAKE 2 TABLETS BY MOUTH 3 TIMES DAILY NEEDED FOR MUSCLE SPASMS Last office visit with prescribing clinician: Visit date not found Last telemedicine visit with prescribing clinician: Visit date not found Next office visit with prescribing clinician: Visit date not found Paulina Norman MA 10/21/24, 11:33 EDT Medication sent to pharmacy documented in this encounter Plan of Treatment Upcoming Encounters Date Type Department Care Team (Late st Contact Info) Description 12/13/2024 11:15 AM EDT Office Visit [facility] RHEUMATOLOGY [address] [address] Cash Khanna DO [address] [address] documented as of this encounter Visit Diagnoses Not on filedocumented in this encounter Care Teams Building Insulation Supervisor Relationship Specialty Start Date End Date Columba Rodríguez APRN [address] [place], [place] [phone] PCP - General Family Medicine 11/10/23 documented as of this encounter
--- OUTSIDE RECORDS SUMMARY | 2024-10-22 07:50 | XMS_ITS | Encounter Summary ---
[facility] Organization [facility] Address [address] [place] [phone] Care Team Providers Care Erector Operator Name Role Phone Columba Rodríguez APRN Primary Care Provider [phone] Reason for Visit * Reason Comments Med Refill Encounter Details Date Type Department Care Team (Late Contact Info) Description 09/01/2023 Refill [facility] PULMONARY & CRITICAL CARE MEDICINE [address] [place] [address] Isai Tran MD [address] [place] [address] Social History Tobacco Use Types Packs/Day Years [...] Description 12/13/2024 11:15 AM EDT Office Visit [facility] RHEUMATOLOGY [address] [place] [address] Cash Khanna DO [address] [facility] [address] [place], [place] [phone] documented as of this encounter Visit Diagnoses Not on filedocumented in this encounter Care Teams Erector Operator Relationship Specialty Start Date End Date Columba Rodrígeuz APRN [address] [place] [phone] PCP - General Family Medicine 11/10/23 documented as of this encounter
--- OUTSIDE RECORDS SUMMARY | 2024-10-22 07:50 | XMS_ITS | Clinical Summary ---
Author Organization [facility] Address [address] [place] [address] Care Team Providers Care Casino Cage Manager Name Role Phone Columba Rodríguez APRN Primary Care Provider [phone] Allergies Active Allergy Reactions Criticality Noted Date Comments Penicillins Unknown - Low Severi ty,Itching,Unknown (See Comments) Medium 08/08/2017 Medications Plavix 75 MG tablet PLAVIX 75 MG TABS Active vitamin B-12 (cyanocobalami n) 100 MCG tablet Take 1 tablet by mouth Daily. Active losartan (COZAAR) 50 MG tablet 11/30/19 23 Active metFORMIN ER (GLUCOPHAGE-XR ) 500 MG 24 hr tablet 10/30/19 23 Active mupirocin (BACTROBAN) 2 % ointment 12/06/19 23 Active nystatin (MYCOSTATIN) 293527 UNIT/GM cream 11/19/19 23 Active pioglitazone (ACTOS) 30 MG tablet 11/29/19 23 Active potassium chloride (MICRO-K) 10 MEQ CR capsule Take by mouth. Active zinc gluconate 50 MG tablet Take 1 tablet by mouth Daily. Active lidocaine (LIDODERM) 5 % Place 1 patch on the skin as directed by provider Daily. Remove & Discard patch within 12 hours or as directed by 15 each 01/07/20 23 Active albuterol sulfate HFA 108 (90 Base) MCG/ACT inhaler INHALE 2 INHALATIONS BY MOUTH EVERY 6 HOURS NEEDED FOR WHEEZING OR SHORTNESS OF AIR 34 g 3 08/25/19 24 Active vitamin B-6 (PYRIDOXINE) 100 MG tablet Take 2 tablets by mouth Daily. Active VITAMIN E 400 UNIT capsule Take 1 capsule by mouth Daily. Active vitamin C (ASCORBIC ACID) 500 MG tablet Take 1 tablet by mouth Daily. Active Cholecalcifero l (Vitamin D3) 1.25 MG (96922 UT) tablet Take 1 tablet by mouth Daily. Active isoniazid (NYDRAZID) 300 MG tablet Take 1 tablet by mouth Daily. 10/10/19 24 Active Pharmacist Choice Lancets misc 31 g. 10/03/19 24 Active atorvastatin (LIPITOR) 40 MG tablet Take 1 tablet by mouth every night at bedtime. 06/07/19 25 Active Mounjaro 5 MG/0.5ML solution auto-injector Inject 1 syringe under the skin into the appropriate area as directed 1 (One) Time Per Week. 06/08/19 25 Active metoprolol succinate XL (TOPROL-XL) 25 MG 24 hr tablet Take 1 tablet by mouth Daily. 06/07/19 25 Active ondansetron (ZOFRAN) 4 MG tablet Take 1 tablet by mouth Every 8 (Eight) Hours As Needed for Nausea. 03/08/20 24 Active traMADol (ULTRAM) 50 MG tabletIndicati ons:Encounter for medication monitoring TAKE 1 TO 2 TABLETS BY MOUTH EVERY 8 HOURS NEEDED 180 tablet 4 06/21/19 25 Active cyclobenzaprin e (FLEXERIL) 5 MG tablet TAKE 2 TABLETS BY MOUTH 3 TIMES DAILY NEEDED FOR MUSCLE SPASMS 270 tablet 10/22/19 25 Active cyclobenzaprin e (FLEXERIL) 5 MG tablet Take 2 tablets by mouth 3 (Three) Times a Day As Needed for Muscle Spasms. 270 tablet 08/22/19 25 025 Discontinued Active Problems Problem Noted Date Diagnosed Date [...] History of total right knee replacement 11/10/19 24 HLD (hyperlipidemia) 11/10/2023 Impotence 11/10/2023 Iron deficiency [...] Encounters Date Type Department Care Team Description 10/18/2024 Refill [facility] [address] [address] Adrianne Hdez APRN from Last 3 Months Immunizations Immunization Administration [...] Description 12/13/2024 11:15 AM EDT Office Visit [facility] [address] [facility] [address] [place] [address] Cash Khanna DO 330 [facility] [address] [place] [address] Health Maintenance Due Date Last Done Comments [...] 022, 01/31/2019, 01/11/2018, Additional history exists Insurance [facility] [employer] PPO Care Teams Casino Cage Manager Relationship Specialty Start Date End Date Columba Rodríguez APRN [address] [place] [address] PCP - General Family Medicine 11/10/23
--- OUTSIDE RECORDS SUMMARY | 2024-10-22 07:50 | XMS_ITS | Encounter Summary ---
Author Organization [facility] ([place], [place], [place], [place]) Address [address] [place] [address] Care Team Providers Care Telemetry Technician Name Role Phone Unavailable Primary Care Provider Unavailabl e Reason for Referral * Consultation (Routine) - Closed Specialty Diagnoses / Procedures Referred By Mitchell dela cruz Referred To Contact Neurology Diagnoses Seizure (HCC) Kirsten Gates [address] [place] [address] Phone: tel: Mac Leonard MD [address] [facility] [address] [place] [address] Phone: tel: fax: Referral ID Status Reason Start Date Expiration Date V isits Requested Visits Authorized [id number] Closed Specialty Services Required 01/03/2024 01/02/2025 1 1 Encounter Details Date Type Department Care Team (Late st Contact Info) Description 01/03/2024 Outside Orders [facility] Neurology [address] [facility] [address] [place] [address] [address] [place] [address] Seizure (HCC) (Primary Dx) Social History Tobacco [...]
--- OUTSIDE RECORDS SUMMARY | 2024-10-22 07:50 | XMS_ITS | Encounter Summary ---
Author Organization [employer] ([place], [place], [place], [place]) Address [address] [place] [address] Care Team Providers Care Service Employee Name Role Phone Unavailable Primary Care Provider Unavailabl e Encounter Details Date Type Department Care Team (Late st Contact Info) Description 12/08/2020 Transcribed Document [facility] [place] [address] [place] [address] ProviderJaime MD [address] [place], [place] [address] Social History Tobacco Use Types Packs/Day Years [...] Health Plan: [employer] MEDICARE REPL Policy Number: [id number] Authorization Number: Insurance Primary Name : [employer] MEDICARE REPL Policy Number: [id number] Authorization Status-Primary : Opo status approv Authorized Service Begin Date-Primary : 12/16/2020 EDT Observation Authorization Nbr-Primary : [id number] Authorization Comments-Primary : [employer] Medicare approved for outpt per availity Historical Authorization Comments-Primary : No Authorization Comments Found ROLANDO TABARES RN-Utilization Review - 12/08/2020 15:21 EDT documented in this encounter Plan of Treatment Not on file documented as of this encounter Visit Diagnoses Not on filedocumented in this encounter
--- OUTSIDE RECORDS SUMMARY | 2024-10-22 07:50 | XMS_ITS | Encounter Summary ---
Author Organization [employer] ([place], [place], [place]) Address [address] [place] [address] Care Team Providers Care Sales Route Driver Helper Name Role Phone Unavailable Primary Care Provider Unavailabl e Encounter Details Date Type Department Care Team (Late st Contact Info) Description 12/09/2020 Transcribed Document [facility] [place] [address] [place] [address] ProviderJaime MD [address] [place], [place] [address] Social History Tobacco Use Types Packs/Day Years [...]
--- OUTSIDE RECORDS SUMMARY | 2024-10-22 07:50 | XMS_ITS | Encounter Summary ---
Author Organization [employer] ([place], [place], [place], [place]) Address [address] [place] [address] Care Team Providers Care Paper Deliverer Name Role Phone Unavailable Primary Care Provider Unavailabl e Encounter Details Date Type Department Care Team (Late st Contact Info) Description 12/16/2020 Transcribed Document [facility] [place] [facility] [place] [address] ProviderJaime MD [address] [place], [place] 6[address] Social History Tobacco Use Types Packs/Day Years [...] CIARA WOODS, RN - 12/16/2020 7:48 EDT Electronically signed by Adolph Crowder Conversion Remote Ruby On Rails Developer Romulo at 07/09/2022 10:47 AM CDT documented in this encounter Plan of Treatment Not on file documented as of this encounter Visit Diagnoses Not on filedocumented in this encounter
--- OUTSIDE RECORDS SUMMARY | 2024-10-22 07:50 | XMS_ITS | Encounter Summary ---
Author Organization [employer] ([place], [place], [place], [place]) Address [address] [place] [address] Care Team Providers Care Dial Mounter Name Role Phone Unavailable Primary Care Provider Unavailabl e Encounter Details Date Type Department Care Team (Late st Contact Info) Description 12/24/2020 Transcribed Document [facility] [place] [facility] [place] [address] ProviderJaime MD [address] [place] [id number] Social History Tobacco Use Types Packs/Day Years [...] right total knee replacement, final condition improved. /[id number] MD RAO Gibbs Jr/DIANNA / RAO / MODL /[id number] Electronically signed by Adolph Crowder Conversion Integration Software Developer Cerner at 07/09/2022 10:52 AM CDT documented in this encounter Plan of Treatment Not on file documented as of this encounter Visit Diagnoses Not on filedocumented in this encounter
--- OUTSIDE RECORDS SUMMARY | 2024-10-22 07:50 | XMS_ITS | Data Portability ---
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 2015 From Automated Load;Prov ider: Sg Orourke Jr;St atus: Active Not Available [facility] 7 02:42:07 Reduced libido 1512792 Active 2015 From Automated Load;Prov ider: Sg Orourke Jr;St atus: Active Not Available [facility] 7 06:28:36 Impotence Active 2015 From Automated Load;Prov ider: Sg Orourke Jr;St atus: Active Not Available [facility] 7 07:22:50 Lower urinary tract symptoms due to benign prostatic hypertrop hy 01359125367 101 Active 2015 From Automated Load;Prov ider: Sg Orourke Jr;St atus: Active Not Available [facility] 7 08:26:38 Problem Notes None recorded. Medical Equipment None Reported. Allergies Allergen ID Allergen Name Allergen Category Reaction Reaction Severity Criticality Documentation Date Start Date Code Code System Note Provider Name and Address Organization Details Recorded Time 860291 Product containin g penicilli n (product) medicatio n Not available Not available Not available 05/09/20162014 78788 8001 SNOMED Comme nt: Creat ed By: Annita woods Date: 2014 10:23 :22 AM; Not Available Critical [facility] hospital 7 10:59:12 Medications Name Sig Start Date [...] Updated DateTime 11/23/2018 175.26 cm 33.1 kg/m2 600009.69 g 132/80 mm[Hg] Rebeca [facility] 11/23/2018 09:33:02 Social History None recorded. Functional Status None recorded. Mental Status None recorded. Family History Nothing Reported. Medical History Condition Response Anxiety/Depression N Thyroid Disease N Hernia Y COPD N Pneumonia Y Anesthesia Complications N Arthritis Y Cancer N Stroke N Blood Thinners Y High Cholesterol Y Liver Disease N Kidney Disease N Allergies/Hayfever Y Heart Conditions Y Migraines N Diabetes Y Seizures/Epilepsy N Asthma N Sleep Apnea Y Hypertension Y Past Encounters Encounter ID Performer Location Encounter Start Date Encounter Closed Date Diagnosis/Indication Diagnosis SNOMED-CT Code Diagnosis ICD10 Code Diagnosis Note [id number] [facility] [address] 07/06/2016 15:48:49 07/06/2016 15:48:49 [id number] W JAVI MONDRAGON MD [facility] [address] [place] [address] 11/23/2018 08:51:17 11/27/2018 15:10:20 Localized, primary osteoarthritis of the shoulder region 854716721 M19.019 Health Concerns Section Related Observation LastModified by Organization Detai ls LastModified Time None Recorded Concern Status LastModified by Organization Details LastModified Time None Recorded Advance Directives Directive None Recorded Payers Insurance Date Sequence Insurance Name Policy Number Policy Neal Covered Member ID Neal Member ID Guarantor Name 07/24/2020 1 [employer] (MEDICARE REPLACEMENT/A DVANTAGE - PPO) [id number] Talisheek Alford III [id number] Talisheek Alford
--- OUTSIDE RECORDS SUMMARY | 2024-10-22 07:50 | XMS_ITS | Encounter Summary ---
Author Organization [employer] ([place], [place], [place], [place]) Address [address] [place] [address] Care Team Providers Care Mrp Controller Name Role Phone Unavailable Primary Care Provider Unavailabl e Encounter Details Date Type Department Care Team (Late st Contact Info) Description 12/16/2020 Transcribed Document [facility] [place] [address] [place] [address] ProviderJaime MD [address] [place], [place] [id number] Social History Tobacco Use Types Packs/Day Years [...] Source : Stated Height Entry Format : [place] Height, Feet : 5 ft(Converted to: 152 cm, 60 Inch) Height, Inches : 9 Inch(Converted to: 0 ft 9 Inch, 22.86 cm) Clinical Height : 175.26 cm Weight Source : Standing scale Weight Entry Format : [place] Clinical Dosing Weight : 96.93 kg Weight, Pounds : 213 lb Weight, Ounces : 4 oz Body Surface Area (BSA) : 2.12 m2 Body Mass Index : 31.6 kg/m2 (HI) [place] Body Weight : 70 kg CIARA WOODS [...] CIARA WOODS RN - 12/16/2020 6:51 EDT [place] Suicide Severity Rating Scale (C-SSRS) CSSRS Past [...] Obtained From : Patient Primary Language : Mongolian Preferred Communication Mode : Verbal Communication Barrier : None Engineering Assistant Needed : No CIARA WOODS RN [...]
--- OUTSIDE RECORDS SUMMARY | 2024-10-22 07:50 | XMS_ITS | Clinical Summary ---
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 12/16 Imelda Hollis Nonspecific tuberculin test reaction + 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 R76.12 (ICD-10-CM ) 09/18 Active 09/18 Imelda Bunny 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 gamma interferon antigen response without active tuberculosis Edema, limb 118058029 (SNOMED CT) 09/21 Resolved 09/21 Imelda Hollis Edema of extremity Right Leg Edema, limb 400513484 (SNOMED CT) 09/21 Removed 09/21 Jer Zhang [...] DAY 2 THROUGH DAY 5 12/19 azithromycin 43905377843 Cinda Rolando BENZONATATE 100 MG CAPS Take 1 capsule by mouth three times a day as needed 12/19 BENZONATATE Cinda Fu TRIAZOLAM 0.25 MG TABS Take 1 tablet by mouth 12/19 triazolam 48552943681 Cinda Fu LORAZEPAM 1 MG TABS Take 1 tablet 12/19 lorazepam 89644940002 Cinda Fu LEVOFLOXACIN 750 MG TABS Take 1 tablet by mouth once a day 12/19 levofloxacin 67172361472 Cinda Rolando LOSARTAN POTASSIUM 50 MG TABS one tab oral daily 12/19 losartan 28361857762 Cinda Rolando NYSTATIN 951324 UNIT/GM OINT Apply to skin once a day 12/19 nystatin 35667219249 Cinda Fu RIFAMPIN 300 MG CAPS Take 2 by mouth once a day 12/19 rifampin 21554097609 Cinda Rolando CYCLOBENZAPRINE HCL 5 MG TABS one tab oral daily 12/19 cyclobenzaprine 25258094494 Cinda Fu ISONIAZID 300 MG TABS Take 1 tablet by mouth once a day 12/19 isoniazid 64328688426 Cinda PROMETHAZINE-CODEI NE 6.25-10 MG/5ML SYRP Take 5 ml by mouth twice a day 12/19 promethazine-code ine 47442863488 Cinda Fu DICYCLOMINE HCL 10 MG CAPS 1 cap oral twice a day 12/19 dicyclomine 72306841597 Cinda Fu CLOPIDOGREL BISULFATE 75 MG TABS Take 1 tablet by mouth once a day 12/19 clopidogrel 44767905356 Cinda Marshall HYDROCOD POLST-CPM POLST ER 10-8 MG/5ML ORAL SUSPENSION EXTENDED RELEASE Take 1 teaspoon by mouth twice a day 12/19 HYDROCOD POLST-CPM POLST ER 10-8 MG/5ML ORAL SUSPENSION EXTENDED RELEASE Cinda Marshall PLAVIX 75 MG TABS once a day clopidogrel 7910228 7190 Cinda Marshall TRIAZOLAM 0.25 MG TABS Take 1 tablet by mouth 09/24 triazolam 29503081028 Melvin Hartman ISONIAZID 300 MG TABS Take 1 tablet by mouth once a day 12/19 isoniazid 92614332052 Melvin Hartman CLOPIDOGREL BISULFATE 75 MG TABS Take 1 tablet by mouth once a day 12/19 clopidogrel 26500921360 Melvin Hartman LORAZEPAM 1 MG TABS Take 1 tablet 12/19 lorazepam 02512816482 Melvin Hartman NYSTATIN 573618 UNIT/GM OINT Apply to skin once a day 12/19 nystatin 96826172607 Melvin Hartman HYDROCOD POLST-CPM POLST ER 10-8 MG/5ML ORAL SUSPENSION EXTENDED RELEASE Take 1 teaspoon by mouth twice a day 12/19 HYDROCOD POLST-CPM POLST ER 10-8 MG/5ML ORAL SUSPENSION EXTENDED RELEASE Melvin Hartman AZITHROMYCIN 250 MG TABS TAKE 2 TABLETS BY MOUTH ON DAY 1 AND THEN TAKE 1 TABLET BY MOUTH ONCE A DAY ON DAY 2 THROUGH DAY 5 09/24 azithromycin 35349198382 Melvin Hartman RIFAMPIN 300 MG CAPS Take 2 by mouth once a day 09/24 rifampin 28411082156 Melvin Hartman PROMETHAZINE-CODEI NE 6.25-10 MG/5ML SYRP Take 5 ml by mouth twice a day 05/09 promethazine-code ine 38074627831 Melvin Hartman BENZONATATE 100 MG CAPS Take 1 capsule by mouth three times a day as needed 12/19 BENZONATATE Melvin Hartman LEVOFLOXACIN 750 MG TABS Take 1 tablet by mouth once a day 12/19 levofloxacin 18869169498 Melvin Hartman DICYCLOMINE HCL 10 MG CAPS 1 cap oral twice a day 09/24 dicyclomine 08409939263 Melvin Hartman SIMVASTATIN 20 MG TABS one tab oral daily simvastatin 63236905355 Melvin Hartman LOSARTAN POTASSIUM 50 MG TABS one tab oral daily 09/24 losartan 53803896610 Melvin Hartman CYCLOBENZAPRINE HCL 5 MG TABS one tab oral daily 09/24 cyclobenzaprine 73207259791 Melvin Hartman TRAMADOL HCL 50 MG TABS one tab every 6 hours prn tramadol 21115862522 Melvin Hartman METFORMIN HCL 500 MG TABS one tab oral twice a day metformin 88152057612 Melvin Hartman RIFAMPIN 300 MG CAPS take 2 po daily 09/24 RIFAMPIN 37346023368 Jer Zhang MD ISONIAZID 300 MG TABS Take 1 tablet by mouth daily 12/16 ISONIAZID 02667389480 Jer Zhang MD AZITHROMYCIN 250 MG TABS TAKE 2 TABLETS BY MOUTH ON DAY 1 AND THEN TAKE 1 TABLET BY MOUTH ONCE A DAY ON DAY 2 THROUGH DAY 5 09/24 AZITHROMYCIN 95967723822 Gerald Ocasio BENZONATATE 100 MG CAPS TAKE 1 CAPSULE BY MOUTH THREE TIMES DAILY FOR 10 DAYS NEEDED FOR COUGH 12/16 BENZONATATE 43087933774 Gerald Ocasio PROMETHAZINE-CODEI NE 6.25-10 MG/5ML SOLN TAKE 5 ML BY MOUTH TWICE DAILY 12/16 PROMETHAZINE-CODE INE 41426586539 Gerald Ocasio LEVOFLOXACIN 750 MG TABS TAKE 1 TABLET BY MOUTH ONCE DAILY FOR 8 DAYS 12/16 LEVOFLOXACIN 76084240182 Gerald Ocasio CLOPIDOGREL BISULFATE 75 MG TABS TAKE 1 TABLET BY MOUTH ONCE DAILY 12/16 CLOPIDOGREL BISULFATE 70899770053 Gerald D NYSTATIN 154668 UNIT/GM OINT APPLY OINTMENT TOPICALLY ONCE DAILY 12/16 NYSTATIN 45390596103 Gerald D HYDROCOD POLST-CPM POLST ER 10-8 MG/5ML ORAL SUSPENSION EXTENDED RELEASE TAKE 1 TEASPOONFUL (5 ML) BY MOUTH TWICE DAILY MAY CAUSE DROWSINESS 12/16 HYDROCOD POLST-CHLORPHEN POLST 34202345875 Gerald D TRIAZOLAM 0.25 MG TABS TAKE 1 TABLET BY MOUTH 30 MINUTES PRIOR TO MRI ON 09/24 TRIAZOLAM 39724036304 Gerald D LORAZEPAM 1 MG TABS TAKE 1 TABLET 2 HOURS BEFORE MRI FOR ANXIETY 12/16 LORAZEPAM 82041234250 Gerald D Medications Administered No information available. Allergies, Adverse Reactions, Alerts Allergy Name Reaction Description Start Date Severity Statu s Provider PENICILLINS Mild Active Gerald D Results Date Name Value Unit Range Flag Description Office Visit: Office Visit:r m 3- new/ old MEDS REVIEW Done Documenta tion of current medications (procedure) SMOK STATUS Never smoker Toba registered account administrator smoking status Plan of Care Type Date Detail Pending order Sputum for AFB Pending order C-Diff PCR Pending order GI PCR Panel Pending order AFB Smear with C ulture Pending order Other Pending order New Oral Antibio tic Procedures Code Procedure Name Date Entry Date CPT-cdpcr C-Diff PCR CPT-58565 GI PCR Panel CPT-24143 AFB Smear with Culture 12/19 CPT-LAB Other [...] Description Start Date HEALTHCARE SURROGATE POWER OF HOSE TUBING BACKER HAS LIVING WILL ON FILE
--- OUTSIDE RECORDS SUMMARY | 2024-10-22 07:50 | XMS_ITS | Encounter Summary ---
Author Organization [employer] ([place], [place], [place], [place]) Address [address] [place] [address] Care Team Providers Care Lacquer Sprayer Name Role Phone Unavailable Primary Care Provider Unavailabl e Encounter Details Date Type Department Care Team (Late st Contact Info) Description 12/23/[address] [facility] [place] [address] [place] [address] ProviderJaime MD [address] [place], [place] [id number] Social History Tobacco Use Types Packs/Day Years [...]
--- OUTSIDE RECORDS SUMMARY | 2024-10-22 07:50 | XMS_ITS | Encounter Summary ---
Author Organization [employer] ([place], [place], [place], [place]) Address [address] [place] [address] Care Team Providers Care Residential Treatment Specialist Name Role Phone Unavailable Primary Care Provider Unavailabl e Encounter Details Date Type Department Care Team (Late st Contact Info) Description 12/23/2020 Transcribed Document [facility] [place] [address] [place] [address] ProviderJaime MD [address] [place], [place] [address]451 Social History Tobacco Use Types Packs/Day Years [...] EDT Electronically signed by Adolph Crowder Conversion Duplicating Machine Operator Cerner at 07/09/2022 10:37 AM CDT documented in this encounter Plan of Treatment Not on file documented as of this encounter Visit Diagnoses Not on filedocumented in this encounter
--- OUTSIDE RECORDS SUMMARY | 2024-10-22 07:51 | XMS_ITS | Encounter Summary ---
Author Organization [employer] ([place], [place], [place], [place]) Address [address] [place] [address] Care Team Providers Care Glass Cleaning Machine Tender Name Role Phone Unavailable Primary Care Provider Unavailabl e Encounter Details Date Type Department Care Team (Late st Contact Info) Description 12/23/2020 Transcribed Document [facility] [place] [facility] [place] [address] ProviderJaime MD [facility] [place], [place] [address]33[address] Social History Tobacco Use Types Packs/Day Years [...] knee 12/23/2020 12:00 Atherosclerotic heart disease of [place] coronary artery without angina pectoris 12/23/2020 [...] today. PT Frequency Rehab : Discontinue ULYSSES SYDE, PT - 12/23/2020 14:03 EDT Treatment Note [...]
--- OUTSIDE RECORDS SUMMARY | 2024-10-22 07:51 | XMS_ITS | Encounter Summary ---
Author Organization [employer] ([place], [place], [place], [place]) Address [address] [place] [address] Care Team Providers Care Sales Effectiveness Manager Name Role Phone Unavailable Primary Care Provider Unavailabl e Encounter Details Date Type Department Care Team (Late st Contact Info) Description 12/23/2020 Transcribed Document [facility] [place] [facility] [place] [address] ProviderJaime MD [address] [place] [address] Social History Tobacco Use Types Packs/Day [...] 12/23/2020 7:23 EDT Electronically signed by Lakesha, [facility] Conversion Client Experience Administrator Cerner at 07/09/2022 10:51 AM CDT documented in this encounter Plan of Treatment Not on file documented as of this encounter Visit Diagnoses Not on filedocumented in this encounter
--- OUTSIDE RECORDS SUMMARY | 2024-10-22 07:51 | XMS_ITS | Encounter Summary ---
Author Organization [employer] ([place], [place], [place], [place]) Address [address] [place] [address] Care Team Providers Care Microwave Technician Name Role Phone Unavailable Primary Care Provider Unavailabl e Encounter Details Date Type Department Care Team (Late st Contact Info) Description 12/23/2020 Transcribed Document [facility] [place] [address] [place] [address] ProviderJaime MD [address], [place] [phone] Social History Tobacco Use Types Packs/Day Years [...] III /Sex: 1950 Male Med Rec #: [id number] Physician: KAYLA ZIMMERMAN JR, JR, MD-ORT Financial #: [id number] Pt. Type: O Room/Bed: Admit/Disch: 12/23/20 04:16:00 - [place] [facility] [place] Attendance Entry 1 Entry 2 Entry 3 Case Attendee KAYLA ZIMMERMAN JR, JR, TARA MERA APRN,HAYDER KOROMA, LUCIE CHANCEORT Role Performed Surgeon/Proceduralist, MAPPING TECHNICIAN/Nurse Wool Hat Flanger Wax Engraver, First First Time In 12/23/20 07:51:00 12/23/20 [...] 5 Entry 6 Case Attendee Stephan Boyce, MONEY EXAMINER/MALT SPECIFICATIONS CONTROL ASSISTANT GET ARIAS ST Peel, Polly, Scub Tech Role Performed Wreath And Garland Maker Hand, First Scrub, First Scrub, Second Time In [...] Case Attendee OTHER, ATTENDEE #1 NGOZI PETTY, MAPPING TECHNICIAN Role Performed Vendor MAPPING TECHNICIAN/Nurse Wool Hat Flanger Time In 12/23/20 07:51:00 12/23/20 08:29:00 Time Out 12/23/20 09:55:00 12/23/20 08:41:00 Procedure Knee Total Joint Knee Total Joint Replacement Replacement Other Attendee [place] MAPPING TECHNICIAN BREAK Superficial Wound Closed By: Thom Modified By: HAYDER EASON RN LONGSWORTH, GARY, LUCIE 12/23/20 07:19:17 12/23/20 08:29:30 [facility] IntraOp Case Attendance Audit 12/23/20 09:55:23 Hose Stripper: LONGGA Modifier: LONGGA 1 <+> Time Out [...] Procedure Knee Total Joint Replacement 12/23/20 08:48:55 Hose Stripper: LONGGA Modifier: LONGGA 8 <+> Time Out 8 <*> Procedure Knee Total Joint Replacement 12/23/20 08:29:30 Hose Stripper: LONGGA Modifier: LONGGA <+> 8 Case Attendee <+> 8 Role Performed <+> 8 Time In <+> 8 Procedure <+> 8 Other Attendee 12/23/20 08:25:18 Hose Stripper: LONGGA Modifier: LONGGA 1 <+> Time In [...] Procedure Knee Total Joint Replacement 12/23/20 07:25:50 Hose Stripper: LONGGA Modifier: LONGGA <+> 1 Procedure 2 [...] [facility] IntraOp Case Times Audit 12/23/20 09:55:21 Hose Stripper: LONGGA Modifier: LONGGA <+> 1 Out Room Time <+> 1 Stop Time <+> 1 Stop Time 12/23/20 08:21:13 Hose Stripper: LONGGA Modifier: LONGGA <+> 1 Start Time [...] [facility] IntraOp Counts Verification Audit 12/23/20 09:01:12 Hose Stripper: LONGGA Modifier: LONGGA <+> 2 Procedure <+> [...] HAYDER EASON, LUCIE, Accompanied by TARA MERA APRN,MAPPING TECHNICIAN Last Modified By: HAYDER EASON RN 12/23/20 09:08:10 [facility] IntraOp Dressing and Packing Entry 1 Type Dressing Location RIGHT KNEE Wound Dressing Item Papo Supplemental Limb immobilizer, Cold Applications pack Applied By Stephan Boyce, MONEY EXAMINER/MALT SPECIFICATIONS CONTROL ASSISTANT Other Comments JONATHAN WOUND DRESSING Last Modified [...] RN 12/23/20 07:24:40 [facility] IntraOp General Case Vp Purchasing 1 Case Information OR OR 02 SJE Case Level 1 Room Verified Yes Wound Class I - Clean Specialty Orthopedic Anesthesia Type General ASA Class 3 Diagnosis Preop Diagnosis DEGENERATIVE JOINT DISEASE, RIGHT KNEE Postop Same As Preop Yes Postop Diagnosis DEGENERATIVE JOINT DISEASE, RIGHT KNEE Last Modified By: HAYDER EASON RN 12/23/20 08:27:58 [facility] IntraOp General Case Data Audit 12/23/20 08:27:58 Hose Stripper: YVETTE Modifier: LONGGA 1 <*> OR OR [...] PATELLA ITOTAL JIGS CR ITOTAL ID Identification [id number] Description Implant Quantity 2 1 1 Implant Site RIGHT KNEE RIGHT KNEE RIGHT KNEE Implant Identification Model Number Implant [id number] Identification Serial Number Implant [id number] Identification Lot Number Implant Blake:Blake Conformis Conformis Identification Orthopaedics Servicenow Administrator Name: Implant [id number] Identification Catalog Number Implant Size Implant Has an Yes Yes Yes Expiration Date Implant Expiration 01/24/22 09/23/22 12/24/21 Date Wasted Radioactive Material Time Implanted Tissue Implant Continue for Tissue Implant Documentation Tissue Identification Number Graft Prep Per Servicenow Administrator Instructions: Tissue Preparation Method: Reconstitution Solution: Reconstitution Solution Lot Number Reconstitution Solution Expiration Date: Thawing Solution Thawing Solution Lot Number Thawing Solution Expiration Date Preparation Materials, Other Preparation Materials, Other Lot Number Preparation Materials, Other Expiration Date Tissue Prepared/Processed By Servicenow Administrator Paperwork Completed Implant Type Comment Last Modified [...] KT CR FULL ITOTAL ID Identification KLEVER [id number] Description Implant Quantity 1 1 1 Implant Site RIGHT KNEE RIGHT KNEE RIGHT KNEE Implant Identification Model Number Implant [id number] Identification Serial Number Implant Identification Lot Number Implant Conformis Conformis Conformis Identification Servicenow Administrator Name: Implant [id number] Identification Catalog Number Implant Size Implant Has an Yes Yes Yes Expiration Date Implant Expiration 12/24/21 12/24/21 12/24/21 Date Wasted Radioactive Material Time Implanted Tissue Implant Continue for Tissue Implant Documentation Tissue Identification Number Graft Prep Per Servicenow Administrator Instructions: Tissue Preparation Method: Reconstitution Solution: Reconstitution Solution Lot Number Reconstitution Solution Expiration Date: Thawing Solution Thawing Solution Lot Number Thawing Solution Expiration Date Preparation Materials, Other Preparation Materials, Other Lot Number Preparation Materials, Other Expiration Date Tissue Prepared/Processed By Servicenow Administrator Paperwork Completed Implant Type Comment Last Modified By: HAYDER EASON RN LONGSWORTH, GARY, RN LONGSWORTH, GARY, RN 12/23/20 08:49:46 12/23/20 08:51:06 12/23/20 08:52:02 [facility] IntraOp Implant Log Audit 12/23/20 08:52:02 Hose Stripper: LONGGA Modifier: LONGGA <+> 6 Implant Identification Description <+> 6 Implant Identification Serial Number <+> 6 Implant Identification Servicenow Administrator Name: <+> 6 Implant Expiration Date <+> 6 Implant Site <+> 6 Implant Quantity <+> 6 Implant Identification Catalog Number <+> 6 Implant Type <+> 6 Implant Has an Expiration Date <+> 6 Type 12/23/20 08:51:06 Hose Stripper: LONGGA Modifier: LONGGA <+> 5 Implant Identification Description <+> 5 Implant Identification Serial Number <+> 5 Implant Identification Servicenow Administrator Name: <+> 5 Implant Expiration Date <+> 5 Implant Site <+> 5 Implant Quantity <+> 5 Implant Identification Catalog Number <+> 5 Implant Type <+> 5 Implant Has an Expiration Date <+> 5 Type 12/23/20 08:49:46 Hose Stripper: LONGGA Modifier: LONGGA <+> 4 Implant Identification Description <+> 4 Implant Identification Serial Number <+> 4 Implant Identification Servicenow Administrator Name: <+> 4 Implant Expiration Date <+> 4 Implant Site <+> 4 Implant Quantity <+> 4 Implant Identification Catalog Number <+> 4 Implant Type <+> 4 Implant Has an Expiration Date <+> 4 Type 12/23/20 08:48:24 Hose Stripper: LONGGA Modifier: LONGGA <+> 3 Implant Expiration Date 12/23/20 08:48:23 Hose Stripper: LONGGA Modifier: LONGGA <+> 3 Implant Identification Description <+> 3 Implant Identification Serial Number <+> 3 Implant Identification Servicenow Administrator Name: <+> 3 Implant Site <+> 3 Implant Quantity <+> 3 Implant Identification Catalog Number <+> 3 Implant Type <+> 3 Implant Has an Expiration Date <+> 3 Type 12/23/20 08:47:19 Hose Stripper: LONGGA Modifier: LONGGA <+> 2 Implant Identification Description <+> 2 Implant Identification Lot Number <+> 2 Implant Identification Servicenow Administrator Name: <+> 2 Implant Expiration Date <+> [...] w/ vancomycin 1Gm vial - epinephrine 1:100,000 [id number] 20ml vial - [id number] Combo Med List 4 - Combo Med [...] [facility] IntraOp Medication Admin Audit 12/23/20 08:39:42 Hose Stripper: LONGGA Modifier: LONGGA <+> 5 Medication/Irrigant <+> [...] JR, MD-ORT, SAMARIA, TARA, URSULA,PAPO, [place], Stephan, MONEY EXAMINER/MALT SPECIFICATIONS CONTROL ASSISTANT Position Verified Positioning Yes Verified by Anesthesia [...] [facility] IntraOp Surgical Procedures Audit 12/23/20 09:51:54 Hose Stripper: LONGGA Modifier: LONGGA 1 <*> Procedure Knee Total Joint Replacement 1 <+> Stop 12/23/20 08:21:22 Hose Stripper: LONGGA Modifier: LONGGA <+> 1 Start [facility] IntraOp Temp Regulation Devices Entry 1 Temp Regulation Temperature Warm blankets Regulation Device Temperature Upper body Regulation Site Temperature SAMARIA, TARA, DIRECT SUPPORT PROFESSIONAL CAREGIVER,MAPPING TECHNICIAN Regulation Device Applied by Last Modified By: [...] [facility] IntraOp Time Out Audit 12/23/20 08:31:31 Hose Stripper: YVETTE Modifier: YVETTE 1 <+> Surgeon 1 [...] Padded Under Cuff Applied By Stephan Boyce, KATHI/MALT SPECIFICATIONS CONTROL ASSISTANT Times Start Time 12/23/20 08:10:00 Stop Time 12/23/20 08:59:00 Last Modified By: HAYDER EASON RN 12/23/20 09:00:54 [facility] IntraOp Tourniquet Audit 12/23/20 09:00:54 Hose Stripper: YVETTE Modifier: YVETTE <+> 1 Stop Time Case Comments <None> Finalized By: HAYDER EASON, RN Document Signatures Signed By: HAYDER EASON RN 12/23/20 09:59 Electronically signed by Lakesha [facility] Conversion Civil Defense Director Cerner at 07/09/2022 10:43 AM CDT documented in this encounter Plan of Treatment Not on file documented as of this encounter Visit Diagnoses Not on filedocumented in this encounter
--- OUTSIDE RECORDS SUMMARY | 2024-10-22 07:51 | XMS_ITS | Encounter Summary ---
Author Organization [employer] ([place], [place], [place], [place]) Address [address] [place] [address] Care Team Providers Care Refractory Specialist Name Role Phone Unavailable Primary Care Provider Unavailabl e Encounter Details Date Type Department Care Team (Late st Contact Info) Description 12/23/2020 Transcribed Document [facility] [place] [address] [place] [address] ProviderJaime MD [address], [place] [phone] Social History Tobacco Use Types Packs/Day Years [...] III /Sex: 1950 Male Med Rec #: [id number] Physician: KAYLA ZIMMERMAN JR, JR, MD-ORT Financial #: [id number] Pt. Type: O Room/Bed: Admit/Disch: 12/23/20 04:16:00 - Institution: [facility] OR PACU Case Times Entry 1 In PACU I 12/23/20 09:56:00 Ready for PACU 12/23/20 11:12:00 Discharge Discharge from PACU 12/23/20 11:12:00 I Last Modified By: Janene Helm RN 12/23/20 11:16:01 [facility] Main OR PACU Case Times Audit 12/23/20 11:16:01 Salesperson Automobiles: KINZA Modifier: KINZA 1 <*> Ready for PACU Discharge 12/23/20 10:30:00 1 <+> Discharge from PACU I Finalized By: Janene Helm RN Document Signatures Signed By: Janene Helm RN 12/23/20 11:16 documented in this encounter Plan of Treatment Not on file documented as of this encounter Visit Diagnoses Not on filedocumented in this encounter
--- OUTSIDE RECORDS SUMMARY | 2024-10-22 07:51 | XMS_ITS | Clinical Summary ---
Author Organization Healthcare Address [address] [id number] Care Team Providers Care Small Brake Form Operator Name Role Phone Markus Huang APPLICATION SUPPORT CONSULTANT Primary Care Provider Allergies Active Allergy Reactions [...] Wellness (AWV) 1950 UKY-Infant/Child/Adol SDOH Screenings 1950 [id number] Vaccine (#1) 1957 Diabetes: Dental Exam 1962 [...] Recently Relevant to Health Maintenance Results * [place] Hepatitis C Antibody (02/13/2019 6:35 PM EST) [place] Hepatitis C Ab NEGATIVE Reference Range: Negative [facility] 02/13/2019 6:35 PM EST 02/13/2019 7:06 PM EST us Major Diaz MD LAB BLOOD ORDERABLES Final Re sult [facility] from Last 3 Months or Most Recently Relevant to Health Maintenance Insurance [facility] MEDICARE Care Teams Small Brake Form Operator Relationship Specialty Start Date End Date Markus Huang APRN [address] [place] [address] [place] [address] PCP - General 10/10/22
--- OUTSIDE RECORDS SUMMARY | 2024-10-22 07:51 | XMS_ITS | Encounter Summary ---
Author Organization [employer] ([place], [place], [place], [place]) Address [address] [place] [address] Care Team Providers Care Healthcare Insurance Sales Agent Name Role Phone Unavailable Primary Care Provider Unavailabl e Encounter Details Date Type Department Care Team (Late st Contact Info) Description 12/23/2020 Transcribed Document [facility] [place] [address] [place] [address] ProviderJaime MD [address] [place], [place] [address] Social History Tobacco Use Types Packs/Day Years [...]
--- OUTSIDE RECORDS SUMMARY | 2024-10-22 07:51 | XMS_ITS | Encounter Summary ---
Author Organization [employer] ([place], [place], [place], [place]) Address [address] [place] [address] Care Team Providers Care Family Preservation Worker Name Role Phone Unavailable Primary Care Provider Unavailabl e Encounter Details Date Type Department Care Team (Late st Contact Info) Description 12/23/2020 Transcribed Document [facility] [place] [facility] [place] [address] ProviderJaime MD [address] [place] [phone] Social History Tobacco Use Types Packs/Day Years [...] EDT Chloraseptic Menthol 1.4% topical spray: 5 Novi, Oral, Novi, Q2H, PRN for Sore Throat, Routine, Start [...] Oral, Q4H phenol 1.4% throat spray 5 Novi, Oral, Q2H promethazine 25 mg tab 12.5 [...] HTN, CAD and cancer Procedure history: Cholecystectomy (95685311). Hernia ([id number]). Rotator cuff right ([id number]). Knee left partial ([id number]). right upper thigh boil. lymph node drained from right arm pit. Colonoscopy ([id number]). EGD - Esophagogastroduodenoscopy ([id number]). heart cath. cardiac stent. Social History Patient [...] swelling, No deformity, Normal gait. Integumentary: Warm, [place], Intact, No pallor, No rash, WOUND STABLE. [...] then you may give Tylenol 650 mg PO/IL x 1. If no response in 2 [...]
--- OUTSIDE RECORDS SUMMARY | 2024-10-22 07:51 | XMS_ITS | Encounter Summary ---
Author Organization [employer] ([place], [place], [place], [place]) Address [address] [place] [address] Care Team Providers Care Maintenance Team Member Name Role Phone Unavailable Primary Care Provider Unavailabl e Encounter Details Date Type Department Care Team (Late st Contact Info) Description 12/23/2020 Transcribed Document [facility] [place] [facility] [place] [address] ProviderJaime MD [address] [place] [phone] Social History Tobacco Use Types Packs/Day Years [...] Sent to Post Acute Providers : Yes [facility] Quality Web Info Shared w Pt/Fam [...]
--- OUTSIDE RECORDS SUMMARY | 2024-10-22 07:51 | XMS_ITS | Encounter Summary ---
Author Organization [employer] ([place], [place], [place], [place]) Address [address] [place] [address] Care Team Providers Care Roll Setter Name Role Phone Unavailable Primary Care Provider Unavailabl e Encounter Details Date Type Department Care Team (Late st Contact Info) Description 12/23/2020 Transcribed Document [facility] [place] Family Medicine [address] [place] [address] ProviderJaime MD [address] [place] [address] Social History Tobacco Use Types [...] Source : Measured Height Entry Format : Phillips Height, Feet : 5 ft(Converted to: 152 cm, 60 Inch) Height, Inches : 9 Inch(Converted to: 0 ft 9 Inch, 22.86 cm) Clinical Height : 175.26 cm Weight Source : Standing scale Weight Entry Format : Phillips Clinical Dosing Weight : 96.36 kg Weight, Pounds : 212 lb Body Surface Area (BSA) : 2.12 m2 Body Mass Index : 31.4 kg/m2 (HI) Terry Body Weight : 70 kg Georgie Boyce [...] Georgie Boyce RN - 12/23/2020 6:56 EDT [place] Suicide Severity Rating Scale (C-SSRS) CSSRS Past [...] #2 Relationship : . Primary Language : Haitian Preferred Communication Mode : Verbal Communication Barrier : None Printer Floor Covering Assistant Needed : No Georgie Boyce RN - [...]
--- OUTSIDE RECORDS SUMMARY | 2024-10-22 07:51 | XMS_ITS | Encounter Summary ---
Author Organization [employer] ([place], [place], [place], [place]) Address [address] [place] [address] Care Team Providers Care Hospice Clinical Marketer Name Role Phone Unavailable Primary Care Provider Unavailabl e Encounter Details Date Type Department Care Team (Late st Contact Info) Description 12/23/2020 Transcribed Document [facility] [place] [address] [place] [address] ProviderJaime MD [address], [place] [phone] Social History Tobacco Use Types Packs/Day Years [...] knee 12/23/2020 12:00 Atherosclerotic heart disease of [place] coronary artery without angina pectoris 12/23/2020 12:00 [...] EDT Electronically signed by Adolph Crowder Conversion Commercial Real Estate Attorney Cerner at 07/09/2022 10:50 AM CDT documented in this encounter Plan of Treatment Not on file documented as of this encounter Visit Diagnoses Not on filedocumented in this encounter
--- OUTSIDE RECORDS SUMMARY | 2024-10-22 07:51 | XMS_ITS | Encounter Summary ---
Author Organization [employer] ([place], [place], [place], [place]) Address [address] [place] [address] Care Team Providers Care Sas Etl Developer Name Role Phone Unavailable Primary Care Provider Unavailabl e Encounter Details Date Type Department Care Team (Late st Contact Info) Description 12/23/2020 Transcribed Document [facility] [place] Medicine [address] [place] [address] ProviderJaime MD [address], [place] [phone] Social History Tobacco Use Types Packs/Day Years [...] III /Sex: 1950 Male Med Rec #: [id number] Physician: KAYLA ZIMMERMAN JR, JR, MD-ORT Financial #: [id number] Pt. Type: O Room/Bed: Admit/Disch: 12/23/20 04:16:00 - Institution[place] [facility] [place] PostOp Case Times Entry 1 In PACU II 12/23/20 11:13:00 Ready for PACU II 12/23/20 13:49:00 Discharge Discharge from PACU 12/23/20 13:49:00 II Last Modified By: Rosa Montes RN 12/23/20 14:04:05 Finalized By: Rosa Montes, RN Document Signatures Signed By: Rosa Montes RN 12/23/20 14:04 Electronically signed by Lakesha [facility] Conversion Gaming Dealer Cerner at 07/09/2022 10:45 AM CDT documented in this encounter Plan of Treatment Not on file documented as of this encounter Visit Diagnoses Not on filedocumented in this encounter
--- OUTSIDE RECORDS SUMMARY | 2024-10-22 07:51 | XMS_ITS | Encounter Summary ---
Author Organization [employer] ([place], [place], [place], [place]) Address [address] [place] [address] Care Team Providers Care Household Appliances Salesperson Name Role Phone Unavailable Primary Care Provider Unavailabl e Encounter Details Date Type Department Care Team (Late st Contact Info) Description 12/23/2020 Transcribed Document [facility] [place] [facility] [place] [address] ProviderJaime MD [address], [place] [phone] Social History Tobacco Use Types Packs/Day Years [...]
--- OUTSIDE RECORDS SUMMARY | 2024-10-22 07:51 | XMS_ITS | Encounter Summary ---
Author Organization [employer] ([place], [place], [place], [place]) Address [address] [place] [address] Care Team Providers Care Bread Dumper Name Role Phone Unavailable Primary Care Provider Unavailabl e Encounter Details Date Type Department Care Team (Late st Contact Info) Description 12/23/2020 Transcribed Document [facility] [place] [address] [place] [address] ProviderJaime MD [address] [place] [address] Social History Tobacco Use Types Packs/Day Years Used Date Smoking Tobacco: Never Assessed Sex and Gender Information Value Date Recorded Sex Assigned at Not on file Legal Sex Male 5:28 PM CDT Gender Identity Not on file Sexual Orientation Not on file documented as of this encounter Miscellaneous Notes * Cerner Conversion Note - Jaime ProviderMD - 12/23/2020 1:22 [place] [address] AYLEEN BLACK III :1950 Visit Time:12/23/2020 What [...] then 6 days after surgery Community Services: [facility] Home Health Services: [facility] [...] When 12/29/2020 09:45 AM EDT Where: [address] [facility] [address] [place] [address] Medications What How Much When Instructions Next [...] 4 frozen water bottles in the [facility] CUBE. Continue to use Incentive Spirometer [...] Barley. Bulgur wheat. Millet. Bran muffins. Popcorn. [place] wafer crackers. Vegetables Sweet potatoes. Spinach. Kale. Artichokes. Cabbage. Broccoli. Green peas. Carrots. Squash. Fruits Berries. Pears. Apples. Oranges. Avocados. Prunes and raisins. Dried figs. Meats and Other Protein Sources [place], kidney, amador, and soy beans. Split peas. [...] 1 katy has 11 g of protein. [place] seeds ??? 1 oz has 5.5 g [...] the floor. Place frequently used items in keyx-jp-ehhic places Keep electrical cables out of the [...] ? Using the bathroom. ? Using household technology applications engineer or toxic chemicals. ? Touching or [...] activities are safe for you. ??? Take qiiq-luo-pvgldts and prescription medicines only as told by [...] provider. Document Revised: 03/16/2018 Document Reviewed: 10/27/2017 [employer] Patient Education ?? 2020 Takkle. acetaminophen (oral) (a SEET a MIN oh fen) Actamin, Anacin AF, Aurophen, Bromo [place], Children's Tylenol, Mapap, M-Pap, Pharbetol, Silapap Childrens, [...] is a pain reliever and a fever peripheral vascular tech. There are many brands and forms of [...] may report side effects to FDA at 7-144-YNJ-9039. What other drugs will affect acetaminophen? Other drugs may affect acetaminophen, including prescription and qtct-rag-suppehu medicines, vitamins, and herbal products. Tell your [...] to ensure that the information provided by [employer]. ('Multum') is accurate, up-to-date, and complete, but no guarantee is made to that effect. Drug information contained herein may be time sensitive. Birdbox information has been compiled for use by healthcare practitioners and consumers in the [place] and therefore Birdbox does not warrant that uses outside of the [place] are appropriate, unless specifically indicated otherwise. Bird[employer]'s drug information does not endorse drugs, diagnose patients or recommend therapy. [facility] [employer] drug information is an informational resource designed [...] appropriate for any given patient. [facility] does not assume any responsibility for any aspect of healthcare administered with the aid of information [facility] provides. The information contained herein is not intended to cover all possible uses, directions, precautions, warnings, drug interactions, allergic reactions, or adverse effects. If you have questions about the drugs you are taking, check with your doctor, nurse or pharmacist. Copyright 9559-3015 [facility]. Version: 21.. Revision Date: 11/01/2019. aspirin (oral) ( pir in) Arthritis Pain, Aspi-Cor, Aspir-Low, Nusrat Plus, Durlaza, Ecotrin, Miniprin, Vazalore What is the most important information I should know about aspirin? Aspirin can cause Tonia's syndrome, a serious and sometimes fatal condition in children. What is aspirin? Aspirin is a salicylate (dg-WDB-op-ate) that is used to treat pain, and [...] may report side effects to FDA at 6-405-HSY-4837. What other drugs will affect aspirin? Ask [...] drugs may affect aspirin, including prescription and jgup-bws-aobxheq medicines, vitamins, and herbal products. Not all [...] to ensure that the information provided by [employer]. ('Multum') is accurate, up-to-date, and complete, but no guarantee is made to that effect. Drug information contained herein may be time sensitive. Birdbox information has been compiled for use by healthcare practitioners and consumers in the [place] and therefore Birdbox does not warrant that uses outside of the [place] are appropriate, unless specifically indicated otherwise. [employer] drug information does not endorse drugs, diagnose patients or recommend therapy. [employer] drug information is an informational resource designed [...] effective or appropriate for any given patient. [employer] does not assume any responsibility for any aspect of healthcare administered with the aid of information [facility] provides. The information contained herein is not intended to cover all possible uses, directions, precautions, warnings, drug interactions, allergic reactions, or adverse effects. If you have questions about the drugs you are taking, check with your doctor, nurse or pharmacist. Copyright 9205-8662 [employer]. Version: 16.03. Revision Date: 09/21/2020. oxycodone (ox [...] The extended-release form of oxycodone is for wvdzdi-jkn-wryns treatment of pain and should not be [...] against the law. Stop taking all other kbjcwz-eit-fwits opioid pain medicines when you start taking [...] may report side effects to FDA at 3-552-XNZ-5793. What other drugs will affect oxycodone? You [...] may affect oxycodone. This includes prescription and whrp-hfd-tmimvrd medicines, vitamins, and herbal products. Not all [...] to ensure that the information provided by [employer]. ('Multum') is accurate, up-to-date, and complete, but no guarantee is made to that effect. Drug information contained herein may be time sensitive. Birdbox information has been compiled for use by healthcare practitioners and consumers in the [place] and therefore Birdbox does not warrant that uses outside of the [place] are appropriate, unless specifically indicated otherwise. Birdbox's drug information does not endorse drugs, diagnose patients or recommend therapy. [employer] drug information is an informational resource designed [...] effective or appropriate for any given patient. [employer] does not assume any responsibility for any aspect of healthcare administered with the aid of information Bird[employer] provides. The information contained herein is not intended to cover all possible uses, directions, precautions, warnings, drug interactions, allergic reactions, or adverse effects. If you have questions about the drugs you are taking, check with your doctor, nurse or pharmacist. Copyright 0878-6805 [facility] [employer]. Version: 14.02. Revision Date: 04/23/2020. docusate (oral/rectal) [...] may report side effects to FDA at 8-554-TVJ-9068. What other drugs will affect docusate? Other drugs may affect docusate, including prescription and fwhp-zny-fzxjodi medicines, vitamins, and herbal products. Tell your [...] to ensure that the information provided by [employer]. ('Multum') is accurate, up-to-date, and complete, but no guarantee is made to that effect. Drug information contained herein may be time sensitive. Birdbox information has been compiled for use by healthcare practitioners and consumers in the [place] and therefore Birdbox does not warrant that uses outside of the [place] are appropriate, unless specifically indicated otherwise. Birdbox's drug information does not endorse drugs, diagnose patients or recommend therapy. [employer] drug information is an informational resource designed [...] effective or appropriate for any given patient. [employer] does not assume any responsibility for any aspect of healthcare administered with the aid of information Bird[employer] provides. The information contained herein is not intended to cover all possible uses, directions, precautions, warnings, drug interactions, allergic reactions, or adverse effects. If you have questions about the drugs you are taking, check with your doctor, nurse or pharmacist. Copyright 0633-6505 [employer]. Version: 4.01. Revision Date: 10/01/2018. cephalexin (sef [...] may report side effects to FDA at 4-421-MWD-5267. What other drugs will affect cephalexin? Tell your doctor about all your other medicines, especially: ?? metformin; or ?? probenecid. This list is not complete. Other drugs may affect cephalexin, including prescription and rdpg-cdj-phadoum medicines, vitamins, and herbal products. Not all [...] to ensure that the information provided by [employer]. ('Multum') is accurate, up-to-date, and complete, but no guarantee is made to that effect. Drug information contained herein may be time sensitive. Birdbox information has been compiled for use by healthcare practitioners and consumers in the [place] and therefore Birdbox does not warrant that uses outside of the [place] are appropriate, unless specifically indicated otherwise. [employer] drug information does not endorse drugs, diagnose patients or recommend therapy. [employer] drug information is an informational resource designed [...] effective or appropriate for any given patient. [employer]box does not assume any responsibility for any aspect of healthcare administered with the aid of information Birdbox provides. The information contained herein is not intended to cover all possible uses, directions, precautions, warnings, drug interactions, allergic reactions, or adverse effects. If you have questions about the drugs you are taking, check with your doctor, nurse or pharmacist. Copyright 5323-0757 [employer]. Version: 10.03. Revision Date: 03/30/2020. tramadol (TRAM [...]
--- OUTSIDE RECORDS SUMMARY | 2024-10-22 07:51 | XMS_ITS | Encounter Summary ---
Author Organization [employer] ([place], [place], [place], [place]) Address [address] [place] [address] Care Team Providers Care Atmospheric Chemist Name Role Phone Unavailable Primary Care Provider Unavailabl e Encounter Details Date Type Department Care Team (Late st Contact Info) Description 12/23/2020 Transcribed Document [facility] [place] [address] [place] [address] ProviderJaime MD [address], [place] [id number] Social History Tobacco Use Types Packs/Day Years [...] III /Sex: 1950 Male Med Rec #: [id number] Physician: KAYLA ZIMMERMAN JR, JR, MD-ORT Financial #: [id number] Pt. Type: O Room/Bed: Admit/Disch: 12/23/20 04:16:00 - [place] [facility] [place] Case Times Entry 1 In Preop 12/23/20 05:15:00 Ready for Holding n/a Room Patient Ready for 12/23/20 06:42:00 Surgery Patient Out of Preop 12/23/20 07:50:00 Patient Out of n/a Holding Room Last Modified By: Aden Boyce RN 12/23/20 07:46:17 SJE PreOp Case Times Audit 12/23/20 07:46:17 Body Former: BLANKDanny Modifier: ADENVERNADanny <+> 1 Patient Out of Preop Finalized By: Aden Boyce, RN Document Signatures Signed By: Aden Boyce RN 12/23/20 07:46 documented in this encounter Plan of Treatment Not on file documented as of this encounter Visit Diagnoses Not on filedocumented in this encounter
--- NOTE | 2024-10-22 08:37 | CT_ITS ---
FINAL REPORT TECHNIQUE: Pre-and postcontrast axial imaging of the abdomen and pelvis was obtained.This study was performed with techniques to keep radiation doses as low as reasonably achievable, (ALARA). Individualized dose reduction technique using automated exposure control or adjustment of mA and/or kV according to the patient's size were employed. CLINICAL HISTORY: left renal mass COMPARISON: 09/06/2023 FINDINGS: There are chronic interstitial changes in the lung bases, stable when compared to the prior exam. Fatty infiltration of the liver is noted, without a focal hepatic lesion. The gallbladder has been surgically resected. The spleen, adrenal glands, and pancreas are unremarkable. There is no hydronephrosis or solid renal mass. On precontrast imaging, a tiny right renal stone is present. There are bilateral hyperdense renal lesions as well as several hypodense lesions. These appear stable in size when compared to the prior exam of 2023. Some of these lesions are too small to characterize. There are lesions in the upper pole of the left kidney which do not enhance, consistent with proteinaceous or hemorrhagic cysts. There is a simple cyst in the lower pole of the left kidney, 18 mm in size. There is a right renal lower pole density, which is indeterminant, enhancing by 11 Hounsfield units after contrast administration. None of the other right renal masses produce enhancement. Abdominal GI tract is unremarkable. There is no lymphadenopathy or ascites. There is mild wall thickening of the proximal colon, and mild colitis is not excluded. The appendix is not well-visualized. There is no lymphadenopathy or ascites. No acute osseous abnormalities identified. IMPRESSION: Bilateral renal lesions are again identified, most of which are either proteinaceous or hemorrhagic. There is a right renal lesion, indeterminant, with enhancement of 11 Hounsfield units after intravenous contrast administration. Recommend follow-up CT with and without contrast in 1 year. Mild wall thickening in the proximal colon, and mild colitis is not excluded. Fatty infiltration of the liver. Reviewed, Interpreted and Dictated by Esther Mcclain MD Transcribed by Audrey Hinson Authenticated and [facility]
[2024-10-22] MEDS: IOPAMIDOL-370 (76%);100ML BOTTLE 75 ML IV (08:53)
[2024-10-22] MEDS: SODIUM CHLORIDE 0.9% 10ML SYR (RAD ONLY) 10 ML IV (08:53)
== END 2024-10-22 23:59 | disposition home or self-care (01) ==
LOC: RAD 07:49
PROVIDERS: PCP Family Medicine; Visit Provider Nurse Practitioner
DX: N28.89 Other specified disorders of kidney and ureter (principal); K76.0 Fatty (change of) liver, not elsewhere classified; R93.3 Abnormal findings on diagnostic imaging of other parts of digestive tract
CPT/HCPCS: 74178; Q9967

== ENCOUNTER 2024-10-30 12:00 | Outpatient (CLI) | payer MEDICARE, SELFPAY ==
--- OUTSIDE RECORDS SUMMARY | 2024-10-30 12:02 | XMS_ITS | Encounter Summary ---
Author Organization [employer] ([place], [place], [place], [place]) Address [address] [place] [address] Care Team Providers Care Handbag Stitcher Name Role Phone Unavailable Primary Care Provider Unavailabl e Encounter Details Date Type Department Care Team (Late st Contact Info) Description 12/08/2020 Transcribed Document [facility] [place] [address] [place] [address] ProviderJaime MD [address], [place] [address] Social History Tobacco Use Types Packs/Day Years [...] Health Plan: [employer] MEDICARE REPL Policy Number: [id number] Authorization Number: Insurance Primary Name : [employer]ET[employer] MEDICARE REPL Policy Number: [id number] Authorization Status-Primary : Opo status approv Authorized Service Begin Date-Primary : 12/16/2020 EDT Observation Authorization Nbr-Primary : [id number] Authorization Comments-Primary : Aet[employer] Medicare approved for outpt per availity Historical Authorization Comments-Primary : No Authorization Comments Found ROLANDO TABARES RN-Utilization Review - 12/08/2020 15:21 EDT Electronically signed by Lakesha [facility] Conversion Christmas Tree Farm Worker Cerner at 07/09/2022 10:42 AM CDT documented in this encounter Plan of Treatment Not on file documented as of this encounter Visit Diagnoses Not on filedocumented in this encounter
--- OUTSIDE RECORDS SUMMARY | 2024-10-30 12:02 | XMS_ITS | Encounter Summary ---
Author Organization [employer] ([place], [place], [place], [place]) Address [address] [place] [address] Care Team Providers Care Spanish Teacher Name Role Phone Unavailable Primary Care Provider Unavailabl e Encounter Details Date Type Department Care Team (Late st Contact Info) Description 12/09/2020 Transcribed Document [facility] [place] Medicine [address] [place] [address] ProviderJaime MD [address], [place] [phone] Social History Tobacco Use Types Packs/Day Years [...] : Standing scale Weight Entry Format : [place] Clinical Dosing Weight : 95.91 kg Weight, Pounds : 211 lb Body Surface Area (BSA) : 2.12 m2 Body Mass Index : 31.2 kg/m2 (HI) Dairy Body Weight : 70 kg Michaela Alvarez Rn - 12/09/2020 16:02 EDT Height Source : Stated Height Entry Format : [place] Michaela Alvarez Rn - 12/09/2020 15:57 EDT Health Histories Smoking Status : Never (less than 100 in lifetime; none in last 30 days) Smokeless Tobacco Status : Never Michaela Alvarez Rn - 12/09/2020 16:02 EDT Social History (As Of: 12/09/2020 16:10:12 EDT) Tobacco: Smoking Status Never smoker. (Last Updated: 12/15/2014 07:41:46 EDT by CARTER MEIRNO RN) Never (less than 100 in lifetime) [...] Michaela Alvarez Rn - 12/09/2020 16:02 EDT [place] Suicide Severity Rating Scale (C-SSRS) CSSRS Past [...] Obtained From : Patient Primary Language : Moldovan Preferred Communication Mode : Verbal Communication Barrier : None Job Development Specialist Needed : No Michaela Alvarez Rn - [...]
--- OUTSIDE RECORDS SUMMARY | 2024-10-30 12:02 | XMS_ITS | Encounter Summary ---
Author Organization [email or web address] ([place], [place], [place], [place]) Address [address] [place] [address] Care Team Providers Care Restaurant Expeditor Name Role Phone Unavailable Primary Care Provider Unavailabl e Encounter Details Date Type Department Care Team (Late st Contact Info) Description 12/16/2020 Transcribed Document [facility] [place] [address] [place] [address] ProviderJaime MD [address], [place] [id number] Social History Tobacco Use Types Packs/Day Years [...] Source : Stated Height Entry Format : Muse Height, Feet : 5 ft(Converted to: 152 cm, 60 Inch) Height, Inches : 9 Inch(Converted to: 0 ft 9 Inch, 22.86 cm) Clinical Height : 175.26 cm Weight Source : Standing scale Weight Entry Format : Muse Clinical Dosing Weight : 96.93 kg Weight, Pounds : 213 lb Weight, Ounces : 4 oz Body Surface Area (BSA) : 2.12 m2 Body Mass Index : 31.6 kg/m2 (HI) [place] Body Weight : 70 kg CIARA WOODS [...] CIARA WOODS RN - 12/16/2020 6:51 EDT [place] Suicide Severity Rating Scale (C-SSRS) CSSRS Past [...] Obtained From : Patient Primary Language : Afghan Preferred Communication Mode : Verbal Communication Barrier : None Associate Director Needed : No CIARA WOODS RN - [...]
--- OUTSIDE RECORDS SUMMARY | 2024-10-30 12:02 | XMS_ITS | Referral Summary ---
Author Organization [employer] ([place], [place], [place], [place]) Address [address] [place], [place] [id number] Care Team Providers Care Gauger Chief Name Role Phone Unavailable Primary Care Provider [...] Date Milton rded Speak language other than Greenlandic at home Not on file 01/23/2024 Want [...] Plan of Treatment Not on file Insurance [facility] MEDICARE ADVANTAGE
--- OUTSIDE RECORDS SUMMARY | 2024-10-30 12:02 | XMS_ITS | Encounter Summary ---
Author Organization [employer] ([place], [place], [place], [place]) Address [address] [place] [address] Care Team Providers Care Cardiographer Name Role Phone Unavailable Primary Care Provider Unavailabl e Encounter Details Date Type Department Care Team (Late st Contact Info) Description 12/22/2020 Transcribed Document [facility] [place] Medicine [facility] [place] [address] ProviderJaime MD [address], [place] [id number] Social History Tobacco Use Types Packs/Day Years [...] or 4 frozen water bottles in the [facility] CUBE. Continue to use Incentive Spirometer [...] Barley. Bulgur wheat. Millet. Bran muffins. Popcorn. [place] wafer crackers. Vegetables Sweet potatoes. Spinach. Kale. Artichokes. Cabbage. Broccoli. Green peas. Carrots. Squash. Fruits Berries. Pears. Apples. Oranges. Avocados. Prunes and raisins. Dried figs. Meats and Other Protein Sources [place], kidney, amador, and soy beans. Split peas. [...] 1 katy has 11 g of protein. [place] seeds ??? 1 oz has 5.5 g [...] the floor. Place frequently used items in fttn-ma-tmysg places Keep electrical cables out of the [...] ? Using the bathroom. ? Using household audio visual engineer or toxic chemicals. ? Touching or [...] activities are safe for you. ??? Take odxw-wcw-fsrjtps and prescription medicines only as told by [...] provider. Document Revised: 03/16/2018 Document Reviewed: 10/27/2017 [employer] Patient Education ? 2020 [employer] Inc. Electronically signed by Adolph Crowder Conversion Chief Construction Inspector Cerner at 07/09/2022 10:38 AM CDT documented in this encounter Plan of Treatment Not on file documented as of this encounter Visit Diagnoses Not on filedocumented in this encounter
--- OUTSIDE RECORDS SUMMARY | 2024-10-30 12:02 | XMS_ITS | Encounter Summary ---
Author Organization [employer] ([place], [place], [place], [place]) Address [address] [place] [address] Care Team Providers Care Parcel Post Delivery Name Role Phone Unavailable Primary Care Provider Unavailabl e Encounter Details Date Type Department Care Team (Late st Contact Info) Description 12/09/2020 Transcribed Document [facility] [place] [address] [place] [address] ProviderJaime MD [address], [place] [phone] Social History Tobacco Use Types Packs/Day Years [...]
--- OUTSIDE RECORDS SUMMARY | 2024-10-30 12:02 | XMS_ITS | Encounter Summary ---
Author Organization [employer] ([place], [place], [place], [place]) Address [address] [place] [address] Care Team Providers Care Jackspooler Name Role Phone Unavailable Primary Care Provider Unavailabl e Encounter Details Date Type Department Care Team (Late st Contact Info) Description 12/23/2020 Transcribed Document [facility] [place] [address] [place] [address] ProviderJaime MD [address], [place] [phone] Social History Tobacco Use Types Packs/Day Years [...]
--- OUTSIDE RECORDS SUMMARY | 2024-10-30 12:02 | XMS_ITS | Encounter Summary ---
Author Organization [employer] ([place], [place], [place], [place]) Address [address] [place] [address] Care Team Providers Care Client Liaison Name Role Phone Unavailable Primary Care Provider Unavailabl e Encounter Details Date Type Department Care Team (Late st Contact Info) Description 12/16/2020 Transcribed Document [facility] [place] [facility] [place] [address] ProviderJaime MD [address], [place] [address] Social History Tobacco Use Types Packs/Day Years [...] EDT Electronically signed by Adolph Crowder Conversion Type Rolling Machine Operator Romulo at 07/09/2022 10:47 AM CDT documented in this encounter Plan of Treatment Not on file documented as of this encounter Visit Diagnoses Not on filedocumented in this encounter
--- OUTSIDE RECORDS SUMMARY | 2024-10-30 12:02 | XMS_ITS | Clinical Summary ---
Author Organization [employer] ([place], [place], [place], [place]) Address [address] [place], [place] [id number] Care Team Providers Care Paper Guillotine Operator Name Role Phone Unavailable Primary Care [...] Date Milton rded Speak language other than Greek at home Not on file 01/23/2024 Want [...] Insurance [facility] [place] [phone]
--- OUTSIDE RECORDS SUMMARY | 2024-10-30 12:02 | XMS_ITS | Encounter Summary ---
Author Organization [employer] ([place], [place], [place], [place]) Address [address] [place] [address] Care Team Providers Care Cardroom Hand Name Role Phone Unavailable Primary Care Provider Unavailabl e Encounter Details Date Type Department Care Team (Late st Contact Info) Description 12/23/2020 Transcribed [facility] [place] [facility] [place] [address] ProviderJaime MD [address] [place] [phone] Social History Tobacco Use Types Packs/Day Years [...] Sent to Post Acute Providers : Yes [facility] Quality Web Info Shared w Pt/Fam : [...]
--- OUTSIDE RECORDS SUMMARY | 2024-10-30 12:02 | XMS_ITS | Clinical Summary ---
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 12/16 Imelda Hollis Nonspecific tuberculin test reaction + 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 R76.12 (ICD-10-CM ) 09/18 Active 09/18 Imelda Bunny 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 gamma interferon antigen response without active tuberculosis Edema, limb 642872484 (SNOMED CT) 09/21 Resolved 09/21 Imelda Hollis Edema of extremity Right Leg Edema, limb 807939543 (SNOMED CT) 09/21 Removed 09/21 Jer Zhang [...] DAY 2 THROUGH DAY 5 12/19 azithromycin 68130400378 Cinda Rolando BENZONATATE 100 MG CAPS Take 1 capsule by mouth three times a day as needed 12/19 BENZONATATE Cinda Fu TRIAZOLAM 0.25 MG TABS Take 1 tablet by mouth 12/19 triazolam 38548696579 Cinda Fu LORAZEPAM 1 MG TABS Take 1 tablet 12/19 lorazepam 97652981231 Cinda Fu LEVOFLOXACIN 750 MG TABS Take 1 tablet by mouth once a day 12/19 levofloxacin 71734917509 Cinda Rolando LOSARTAN POTASSIUM 50 MG TABS one tab oral daily 12/19 losartan 40255357654 Cinda Rolando NYSTATIN 447842 UNIT/GM OINT Apply to skin once a day 12/19 nystatin 02733539671 Cinda Fu RIFAMPIN 300 MG CAPS Take 2 by mouth once a day 12/19 rifampin 23136597447 Cinda Rolando CYCLOBENZAPRINE HCL 5 MG TABS one tab oral daily 12/19 cyclobenzaprine 21904054222 Cinda Fu ISONIAZID 300 MG TABS Take 1 tablet by mouth once a day 12/19 isoniazid 37079095365 Cinda PROMETHAZINE-CODEI NE 6.25-10 MG/5ML SYRP Take 5 ml by mouth twice a day 12/19 promethazine-code ine 84559916718 Cinda Fu DICYCLOMINE HCL 10 MG CAPS 1 cap oral twice a day 12/19 dicyclomine 46574621382 Cinda Fu CLOPIDOGREL BISULFATE 75 MG TABS Take 1 tablet by mouth once a day 12/19 clopidogrel 53632258966 Cinda Marshall HYDROCOD POLST-CPM POLST ER 10-8 MG/5ML ORAL SUSPENSION EXTENDED RELEASE Take 1 teaspoon by mouth twice a day 12/19 HYDROCOD POLST-CPM POLST ER 10-8 MG/5ML ORAL SUSPENSION EXTENDED RELEASE Cinda Marshall PLAVIX 75 MG TABS once a day clopidogrel 1410185 7190 Cinda Marshall TRIAZOLAM 0.25 MG TABS Take 1 tablet by mouth 09/24 triazolam 57429809778 Melvin Hartman ISONIAZID 300 MG TABS Take 1 tablet by mouth once a day 12/19 isoniazid 45129580588 Melvin Hartman CLOPIDOGREL BISULFATE 75 MG TABS Take 1 tablet by mouth once a day 12/19 clopidogrel 00629533354 Melvin Hartman LORAZEPAM 1 MG TABS Take 1 tablet 12/19 lorazepam 13965778232 Melvin Hartman NYSTATIN 351384 UNIT/GM OINT Apply to skin once a day 12/19 nystatin 14872757437 Melvin Hartman HYDROCOD POLST-CPM POLST ER 10-8 MG/5ML ORAL SUSPENSION EXTENDED RELEASE Take 1 teaspoon by mouth twice a day 12/19 HYDROCOD POLST-CPM POLST ER 10-8 MG/5ML ORAL SUSPENSION EXTENDED RELEASE Melvin Hartman AZITHROMYCIN 250 MG TABS TAKE 2 TABLETS BY MOUTH ON DAY 1 AND THEN TAKE 1 TABLET BY MOUTH ONCE A DAY ON DAY 2 THROUGH DAY 5 09/24 azithromycin 54065285569 Melvin Hartman RIFAMPIN 300 MG CAPS Take 2 by mouth once a day 09/24 rifampin 94913003482 Melvin Hartman PROMETHAZINE-CODEI NE 6.25-10 MG/5ML SYRP Take 5 ml by mouth twice a day 05/09 promethazine-code ine 27407636938 Melvin Hartman BENZONATATE 100 MG CAPS Take 1 capsule by mouth three times a day as needed 12/19 BENZONATATE Melvin Hartman LEVOFLOXACIN 750 MG TABS Take 1 tablet by mouth once a day 12/19 levofloxacin 07296348542 Melvin Hartman DICYCLOMINE HCL 10 MG CAPS 1 cap oral twice a day 09/24 dicyclomine 64431438838 Melvin Hartman SIMVASTATIN 20 MG TABS one tab oral daily simvastatin 74032439005 Melvin Hartman LOSARTAN POTASSIUM 50 MG TABS one tab oral daily 09/24 losartan 35669368149 Melvin Hartman CYCLOBENZAPRINE HCL 5 MG TABS one tab oral daily 09/24 cyclobenzaprine 11066285158 Melvin Hartman TRAMADOL HCL 50 MG TABS one tab every 6 hours prn tramadol 23616028755 Melvin Hartman METFORMIN HCL 500 MG TABS one tab oral twice a day metformin 71450344084 Melvin Hartman RIFAMPIN 300 MG CAPS take 2 po daily 09/24 RIFAMPIN 83127625387 Jer Zhang MD ISONIAZID 300 MG TABS Take 1 tablet by mouth daily 12/16 ISONIAZID 60201507556 Jer Zhang MD AZITHROMYCIN 250 MG TABS TAKE 2 TABLETS BY MOUTH ON DAY 1 AND THEN TAKE 1 TABLET BY MOUTH ONCE A DAY ON DAY 2 THROUGH DAY 5 09/24 AZITHROMYCIN 11654214634 Gerald Ocasio BENZONATATE 100 MG CAPS TAKE 1 CAPSULE BY MOUTH THREE TIMES DAILY FOR 10 DAYS NEEDED FOR COUGH 12/16 BENZONATATE 10045729444 eGrald Ocasio PROMETHAZINE-CODEI NE 6.25-10 MG/5ML SOLN TAKE 5 ML BY MOUTH TWICE DAILY 12/16 PROMETHAZINE-CODE INE 30857272188 Gerald Ocasio LEVOFLOXACIN 750 MG TABS TAKE 1 TABLET BY MOUTH ONCE DAILY FOR 8 DAYS 12/16 LEVOFLOXACIN 94928996574 Gerald Ocasio CLOPIDOGREL BISULFATE 75 MG TABS TAKE 1 TABLET BY MOUTH ONCE DAILY 12/16 CLOPIDOGREL BISULFATE 05292591938 Gerald D NYSTATIN 219100 UNIT/GM OINT APPLY OINTMENT TOPICALLY ONCE DAILY 12/16 NYSTATIN 23225547078 Gerald D HYDROCOD POLST-CPM POLST ER 10-8 MG/5ML ORAL SUSPENSION EXTENDED RELEASE TAKE 1 TEASPOONFUL (5 ML) BY MOUTH TWICE DAILY MAY CAUSE DROWSINESS 12/16 HYDROCOD POLST-CHLORPHEN POLST 63679407425 Gerald D TRIAZOLAM 0.25 MG TABS TAKE 1 TABLET BY MOUTH 30 MINUTES PRIOR TO MRI ON 09/24 TRIAZOLAM 83112413968 Gerald D LORAZEPAM 1 MG TABS TAKE 1 TABLET 2 HOURS BEFORE MRI FOR ANXIETY 12/16 LORAZEPAM 63494229080 Gerald D Medications Administered No information available. 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
--- OUTSIDE RECORDS SUMMARY | 2024-10-30 12:02 | XMS_ITS | Encounter Summary ---
Author Organization [employer] ([place], [place], [place], [place]) Address [address] [place] [address] Care Team Providers Care Projection Technician Name Role Phone Unavailable Primary Care Provider Unavailabl e Encounter Details Date Type Department Care Team (Late st Contact Info) Description 12/23/2020 Transcribed Document [facility] [place] [address] [place] [address] ProviderJaime MD [address] [place], [place] 7129[address] Social History Tobacco Use Types Packs/Day Years [...] Yes Discharge To Care Management : Home/Residential/Senior Care or Self Care -01 ANGELA NGUYEN RN - 12/23/2020 15:58 EDT Final Narrative Note Final Narrative Note : Tara called back and cant take patient due to staffing. Sent Referral out to Poppy TRUONG and [place] notified. Pt discharged home with BROOKS TRUONG to follow. No further CM needs identiifed. ANGELA NGUYEN RN - 12/23/2020 15:58 EDT documented in this encounter Plan of Treatment Not on file documented as of this encounter Visit Diagnoses Not on filedocumented in this encounter
--- OUTSIDE RECORDS SUMMARY | 2024-10-30 12:02 | XMS_ITS | Encounter Summary ---
Author Organization [employer] ([place], [place], [place], [place]) Address [address] [place] [address] Care Team Providers Care Food Beverage Supervisor Name Role Phone Unavailable Primary Care Provider Unavailabl e Encounter Details Date Type Department Care Team (Late st Contact Info) Description 12/23/[address] [facility] [place] [facility] [place] [address] ProviderJaime MD [address] [place] [address] [id number] Social History Tobacco Use Types Packs/Day Years [...]
--- OUTSIDE RECORDS SUMMARY | 2024-10-30 12:02 | XMS_ITS | Encounter Summary ---
Author Organization [employer] ([place], [place], [place], [place]) Address [address] [place] [address] Care Team Providers Care Slate Roofer Helper Name Role Phone Unavailable Primary Care Provider Unavailabl e Encounter Details Date Type Department Care Team (Late st Contact Info) Description 12/24/2020 Transcribed Document [facility] [place] [facility] [place] [address] ProviderJaime MD [address] [place] [address] [id number] Social History Tobacco Use Types Packs/Day Years [...] right total knee replacement, final condition improved. /[id number] MD ROA Gibbs Jr/DIANNA / RAO / MODL /[id number] Electronically signed by Adolph Crowder Conversion Safety Clothing And Equipment Developer Cerner at 07/09/2022 10:52 AM CDT documented in this encounter Plan of Treatment Not on file documented as of this encounter Visit Diagnoses Not on filedocumented in this encounter
--- OUTSIDE RECORDS SUMMARY | 2024-10-30 12:02 | XMS_ITS | Encounter Summary ---
Author Organization [employer] ([place], [place], [place], [place]) Address [address] [place] [address] Care Team Providers Care Digital Content Producer Name Role Phone Unavailable Primary Care Provider Unavailabl e Encounter Details Date Type Department Care Team (Late st Contact Info) Description 12/09/2020 Transcribed Document [facility] [place] [facility] [place] [address] ProviderJaime MD [address] [place] [address] [phone] Social History Tobacco Use Types Packs/Day Years [...] Appearance CLEAR2 12/09/2020 16:01 EDT Urine Specific [place] *1.026 12/09/2020 16:01 EDT Urine pH Dipstick [...]
--- OUTSIDE RECORDS SUMMARY | 2024-10-30 12:03 | XMS_ITS | Encounter Summary ---
Author Organization [employer] ([place], [place], [place], [place]) Address [address] [place] [address] Care Team Providers Care Bobbin Sorter Name Role Phone Unavailable Primary Care Provider Unavailabl e Encounter Details Date Type Department Care Team (Late st Contact Info) Description 12/23/2020 Transcribed Document [facility] [place] Family Medicine [address] [place] [address] ProviderJaime MD [address] [place] [address] Social History Tobacco Use Types [...] Source : Measured Height Entry Format : Dukes Height, Feet : 5 ft(Converted to: 152 cm, 60 Inch) Height, Inches : 9 Inch(Converted to: 0 ft 9 Inch, 22.86 cm) Clinical Height : 175.26 cm Weight Source : Standing scale Weight Entry Format : Dukes Clinical Dosing Weight : 96.36 kg Weight, Pounds : 212 lb Body Surface Area (BSA) : 2.12 m2 Body Mass Index : 31.4 kg/m2 (HI) Welsh Body Weight : 70 kg Georgie Boyce [...] Georgie Boyce RN - 12/23/2020 6:56 EDT [place] Suicide Severity Rating Scale (C-SSRS) CSSRS Past [...] #2 Relationship : . Primary Language : Azerbaijani Preferred Communication Mode : Verbal Communication Barrier : None Trust Accounts Supervisor Needed : No Georgie Boyce RN [...]
--- OUTSIDE RECORDS SUMMARY | 2024-10-30 12:03 | XMS_ITS | Encounter Summary ---
Author Organization [employer] ([place], [place], [place], [place]) Address [address] [place] [address] Care Team Providers Care Stationary Steam Engineer Name Role Phone Unavailable Primary Care Provider Unavailabl e Encounter Details Date Type Department Care Team (Late st Contact Info) Description 12/23/2020 Transcribed Document [facility] [place] [facility] [place] [address] ProviderJaime MD [facility] [place], [place] 457691 Social History Tobacco Use Types Packs/Day Years [...] knee 12/23/2020 12:00 Atherosclerotic heart disease of [place] coronary artery without angina pectoris 12/23/2020 12:00 [...] ULYSSES SYED, PT - 12/23/2020 14:03 EDT Electronically signed by Adolph Crowder Conversion Hat And Cap Drying Room Attendant Cerner at 07/09/2022 10:42 AM CDT documented in this encounter Plan of Treatment Not on file documented as of this encounter Visit Diagnoses Not on filedocumented in this encounter
--- OUTSIDE RECORDS SUMMARY | 2024-10-30 12:03 | XMS_ITS | Encounter Summary ---
Author Organization [employer] ([place], [place], [place], [place]) Address [address] [place] [address] Care Team Providers Care Customer Advisor Name Role Phone Unavailable Primary Care Provider Unavailabl e Encounter Details Date Type Department Care Team (Late st Contact Info) Description 12/23/[address] [facility] [place] Medicine [facility] [place] [address] ProviderJaime MD [address] [place] [address] [id number] Social History Tobacco Use Types Packs/Day Years [...] EDT Chloraseptic Menthol 1.4% topical spray: 5 [place], Oral, [place], Q2H, PRN for Sore Throat, Routine, Start [...] Oral, Q4H phenol 1.4% throat spray 5 [place], Oral, Q2H promethazine 25 mg tab 12.5 [...] HTN, CAD and cancer Procedure history: Cholecystectomy (52726626). Hernia ([id number]). Rotator cuff right (53055052). Knee left partial (647832016). right upper thigh boil. lymph node drained from right arm pit. Colonoscopy (651356361). EGD - Esophagogastroduodenoscopy (9033228916). heart cath. cardiac stent. Social History Patient [...] swelling, No deformity, Normal gait. Integumentary: Warm, [place], Intact, No pallor, No rash, WOUND STABLE. [...]
--- OUTSIDE RECORDS SUMMARY | 2024-10-30 12:03 | XMS_ITS | Encounter Summary ---
Author Organization [employer] ([place], [place], [place], [place]) Address [address] [place] [address] Care Team Providers Care Livestock Rancher Name Role Phone Unavailable Primary Care Provider Unavailabl e Encounter Details Date Type Department Care Team (Late st Contact Info) Description 12/23/2020 Transcribed Document [facility] [place] [address] [place] [address] ProviderJaime MD [address] [place], [place] [phone] Social History Tobacco Use Types Packs/Day Years [...] III /Sex: 1950 Male Med Rec #: [id number] Physician: KAYLA ZIMMERMAN JR, JR, MD-ORT Financial #: [id number] Pt. Type: O Room/Bed: Admit/Disch: 12/23/20 04:16:00 - Institution: [facility] OR PACU Case Times Entry 1 In PACU I 12/23/20 09:56:00 Ready for PACU 12/23/20 11:12:00 Discharge Discharge from PACU 12/23/20 11:12:00 I Last Modified By: Janene Helm RN 12/23/20 11:16:01 [facility] Main OR PACU Case Times Audit 12/23/20 11:16:01 Locker Room Clerk: KINZA Modifier: KINZA 1 <*> Ready for PACU Discharge 12/23/20 10:30:00 1 <+> Discharge from PACU I Finalized By: Janene Helm RN Document Signatures Signed By: Janene Helm RN 12/23/20 11:16 documented in this encounter Plan of Treatment Not on file documented as of this encounter Visit Diagnoses Not on filedocumented in this encounter
--- OUTSIDE RECORDS SUMMARY | 2024-10-30 12:03 | XMS_ITS | Encounter Summary ---
[facility] Address [address] [place] [phone] Care Team Providers Care Dye House Supervisor Name Role Phone Columba Rodríguez APRN Primary Care Provider [phone] Reason for Visit * Reason Comments Med Refill Encounter Details Date Type Department Care Team (Late st Contact Info) Description 10/18/2024 Refill [facility] RHEUMATOLOGY 330 [facility] [address] [place] [address] Adrianne Hdez APRN [address] [facility] 100 [place], [place] [id number] Social History Tobacco Use Types Packs/Day Years [...] Description 12/13/2024 11:15 AM EDT Office Visit [facility] RHEUMATOLOGY [address] [address] Cash Khanna DO [address] [address] documented as of this encounter Visit Diagnoses Not on filedocumented in this encounter Care Teams Dye House Supervisor Relationship Specialty Start Date End Date Columba Rodríguez APRN [address] [place], [place] [id number] PCP - General Family Medicine 11/10/23 documented as of this encounter
--- OUTSIDE RECORDS SUMMARY | 2024-10-30 12:03 | XMS_ITS | Encounter Summary ---
[facility] Address [address] [place] [id number] Care Team Providers Care Trust Administrator Name Role Phone Columba Rodríguez APRN Primary Care Provider [phone] Reason for Visit * Reason Comments Med Refill Encounter Details Date Type Department Care Team (Late Contact Info) Description 09/01/2023 Refill [facility] PULMONARY & CRITICAL CARE MEDICINE [address] [place] [address] Iasi Tran MD [address] [place] [address] Social History Tobacco Use Types Packs/Day Years [...] Description 12/13/2024 11:15 AM EDT Office Visit [facility] RHEUMATOLOGY [address] [place] [address] Cash Khanna DO [address] [facility] [address] [place], [place] [address] documented as of this encounter Visit Diagnoses Not on filedocumented in this encounter Care Teams Trust Administrator Relationship Specialty Start Date End Date Columba Rodríguez APRN [address] [place] [phone] PCP - General Family Medicine 11/10/23 documented as of this encounter
--- OUTSIDE RECORDS SUMMARY | 2024-10-30 12:03 | XMS_ITS | Encounter Summary ---
Author Organization [employer] ([place], [place], [place], [place]) Address [address] [place] [address] Care Team Providers Care Social Welfare Research Worker Name Role Phone Unavailable Primary Care Provider Unavailabl e Encounter Details Date Type Department Care Team (Late st Contact Info) Description 12/23/[address] [facility] [place] [address] [place] [address] ProviderJaime MD [address] [place], [place] [phone] Social History Tobacco Use Types Packs/Day Years [...] III /Sex: 1950 Male Med Rec #: [id number] Physician: KAYLA ZIMMERMAN JR, JR, MD-ORT Financial #: [id number] Pt. Type: O Room/Bed: Admit/Disch: 12/23/20 04:16:00 - [place] [facility] [place] PostOp Case Times Entry 1 In PACU II 12/23/20 11:13:00 Ready for PACU II 12/23/20 13:49:00 Discharge Discharge from PACU 12/23/20 13:49:00 II Last Modified By: Rosa Montes RN 12/23/20 14:04:05 Finalized By: Rosa Montes, RN Document Signatures Signed By: Rosa Montes RN 12/23/20 14:04 Electronically signed by Lakesha [facility] Conversion Enrollment Services Dean Cerner at 07/09/2022 10:45 AM CDT documented in this encounter Plan of Treatment Not on file documented as of this encounter Visit Diagnoses Not on filedocumented in this encounter
--- OUTSIDE RECORDS SUMMARY | 2024-10-30 12:03 | XMS_ITS | Encounter Summary ---
Author Organization [employer] ([place], [place], [place], [place]) Address [address] [place] [address] Care Team Providers Care Medical Doctor Md/Medical Director Name Role Phone Unavailable Primary Care Provider Unavailabl e Encounter Details Date Type Department Care Team (Late st Contact Info) Description 12/23/2020 Transcribed Document [facility] Family Medicine [address] [place] [address] ProviderJaime MD [address] [place], [place] [phone] Social History Tobacco Use Types Packs/Day Years [...] knee 12/23/2020 12:00 Atherosclerotic heart disease of [place] coronary artery without angina pectoris 12/23/2020 12:00 [...]
--- OUTSIDE RECORDS SUMMARY | 2024-10-30 12:03 | XMS_ITS | Encounter Summary ---
Author Organization [facility] ([place], [place], [place], [place]) Address [address] [place] [address] Care Team Providers Care Motel Keeper Name Role Phone Unavailable Primary Care Provider Unavailabl e Reason for Referral * Consultation (Routine) - Closed Specialty Diagnoses / Procedures Referred By Mitchell dela cruz Referred To Contact Neurology Diagnoses Seizure (HCC) Kirsten Gates [address] [place] [address] Phone: tel: Mac Leonard MD [address] [facility] [address] [place] [address] Phone: tel: fax: Referral ID Status Reason Start Date Expiration Date V isits Requested Visits Authorized [id number] Closed Specialty Services Required 01/03/2024 01/02/2025 1 1 Encounter Details Date Type Department Care Team (Late st Contact Info) Description 01/03/2024 Outside Orders [facility] Neurology [address] [facility] [address] [place] [address] [address] [address] Seizure (HCC) (Primary Dx) Social History Tobacco [...]
--- OUTSIDE RECORDS SUMMARY | 2024-10-30 12:03 | XMS_ITS | Encounter Summary ---
Author Organization [employer] ([place], [place], [place], [place]) Address [address] [place] [address] Care Team Providers Care Security Lead Name Role Phone Unavailable Primary Care Provider Unavailabl e Encounter Details Date Type Department Care Team (Late st Contact Info) Description 12/23/2020 Transcribed Document [facility] [place] [address] [place] [address] ProviderJaime MD [address], [place] [phone] Social History Tobacco Use Types Packs/Day Years [...] Patient Discharge Goal : Home health care ANGEAL NGUYEN RN - 12/23/2020 14:13 EDT Narrative [...] EDT Electronically signed by Adolph Crowder Conversion Tracer Bullet Charging Machine Operator Cerner at 07/09/2022 10:43 AM CDT documented in this encounter Plan of Treatment Not on file documented as of this encounter Visit Diagnoses Not on filedocumented in this encounter
--- OUTSIDE RECORDS SUMMARY | 2024-10-30 12:03 | XMS_ITS | Encounter Summary ---
Author Organization [employer] ([place], [place], [place], [place]) Address [address] [place] [address] Care Team Providers Care Packaging Operator Name Role Phone Unavailable Primary Care Provider Unavailabl e Encounter Details Date Type Department Care Team (Late st Contact Info) Description 12/23/2020 Transcribed Document [facility] [place] [address] [place] [address] ProviderJaime MD [address] [place] [address] Social History Tobacco Use Types Packs/Day Years Used Date Smoking Tobacco: Never Assessed Sex and Gender Information Value Date Recorded Sex Assigned at Not on file Legal Sex Male 5:28 PM CDT Gender Identity Not on file Sexual Orientation Not on file documented as of this encounter Miscellaneous Notes * Cerner Conversion Note - Jaime ProviderMD - 12/23/2020 1:22 [place] [address] AYLEEN LBACK III :1950 Visit Time:12/23/2020 What to do [...] then 6 days after surgery [facility] Home Health Services: [facility] [...] When 12/29/2020 09:45 AM EDT Where: [address] [facility] [address] [place] [address] Medications What How Much When Instructions Next [...] or 4 frozen water bottles in the [facility]. Continue to use Incentive Spirometer [...] Barley. Bulgur wheat. Millet. Bran muffins. Popcorn. [place] wafer crackers. Vegetables Sweet potatoes. Spinach. Kale. Artichokes. Cabbage. Broccoli. Green peas. Carrots. Squash. Fruits Berries. Pears. Apples. Oranges. Avocados. Prunes and raisins. Dried figs. Meats and Other Protein Sources Neopit, kidney, amador, and soy beans. Split peas. [...] 1 katy has 11 g of protein. Rusk seeds ??? 1 oz has 5.5 g [...] the floor. Place frequently used items in wjnv-dl-nhmlz places Keep electrical cables out of the [...] ? Using the bathroom. ? Using household paperboard machine operator or toxic chemicals. ? Touching or [...] activities are safe for you. ??? Take cibx-xlx-xsgvelr and prescription medicines only as told by [...] provider. Document Revised: 03/16/2018 Document Reviewed: 10/27/2017 [employer] ([employer]) Patient Education ?? 2020 [employer]. acetaminophen (oral) (a SEET a MIN oh fen) Actamin, Anacin AF, Aurophen, Bromo Fenton, Children's Tylenol, Mapap, M-Pap, Pharbetol, Silapap Childrens, [...] is a pain reliever and a fever oracle manager. There are many brands and forms of [...] may report side effects to FDA at 2-478-JCM-9898. What other drugs will affect acetaminophen? Other drugs may affect acetaminophen, including prescription and zpxx-aur-efvxirv medicines, vitamins, and herbal products. Tell your [...] to ensure that the information provided by [employer]. ('[employer]') is accurate, up-to-date, and complete, but no guarantee is made to that effect. Drug information contained herein may be time sensitive. [employer] information has been compiled for use by healthcare practitioners and consumers in the [place] and therefore [employer] does not warrant that uses outside of the [place] are appropriate, unless specifically indicated otherwise. [employer]'s drug information does not endorse drugs, diagnose patients or recommend therapy. [facility] drug information is an informational resource designed [...] for any given patient. [facility] does not assume any responsibility for any aspect of healthcare administered with the aid of information [facility] provides. The information contained herein is not intended to cover all possible uses, directions, precautions, warnings, drug interactions, allergic reactions, or adverse effects. If you have questions about the drugs you are taking, check with your doctor, nurse or pharmacist. Copyright 5269-4250 [facility] - [employer]. Version: 21.. Revision Date: 11/01/2019. aspirin (oral) ( pir in) Arthritis Pain, Aspi-Cor, Aspir-Low, Nusrat Plus, Durlaza, Ecotrin, Miniprin, Vazalore What is the most important information I should know about aspirin? Aspirin can cause Tonia's syndrome, a serious and sometimes fatal condition in children. What is aspirin? Aspirin is a salicylate (nx-IVA-fj-ate) that is used to treat pain, and [...] may report side effects to FDA at 7-627-IAY-7499. What other drugs will affect aspirin? Ask [...] drugs may affect aspirin, including prescription and thsb-lay-qrwjsla medicines, vitamins, and herbal products. Not all [...] to ensure that the information provided by [employer]. ('[employer]') is accurate, up-to-date, and complete, but no guarantee is made to that effect. Drug information contained herein may be time sensitive. [employer] information has been compiled for use by healthcare practitioners and consumers in the [place] and therefore [employer] does not warrant that uses outside of the [place] are appropriate, unless specifically indicated otherwise. [employer] drug information does not endorse drugs, diagnose patients or recommend therapy. [employer] drug information is an informational resource designed [...] effective or appropriate for any given patient. [employer] does not assume any responsibility for any aspect of healthcare administered with the aid of information [facility] provides. The information contained herein is not intended to cover all possible uses, directions, precautions, warnings, drug interactions, allergic reactions, or adverse effects. If you have questions about the drugs you are taking, check with your doctor, nurse or pharmacist. Copyright 9196-3036 [employer]. Version: 16.03. Revision Date: 09/21/2020. oxycodone (ox [...] The extended-release form of oxycodone is for xxjtvr-ffw-msjwg treatment of pain and should not be [...] against the law. Stop taking all other uaugja-fxf-vsybi opioid pain medicines when you start taking [...] may report side effects to FDA at 6-514-OZX-6369. What other drugs will affect oxycodone? You [...] may affect oxycodone. This includes prescription and txod-mfe-mmyosyi medicines, vitamins, and herbal products. Not all [...] to ensure that the information provided by [employer]. ('[employer]') is accurate, up-to-date, and complete, but no guarantee is made to that effect. Drug information contained herein may be time sensitive. [employer] information has been compiled for use by healthcare practitioners and consumers in the [place] and therefore [employer] does not warrant that uses outside of the [place] are appropriate, unless specifically indicated otherwise. [employer]'s drug information does not endorse drugs, diagnose patients or recommend therapy. [employer] drug information is an informational resource designed [...] effective or appropriate for any given patient. [employer] does not assume any responsibility for any aspect of healthcare administered with the aid of information [employer] provides. The information contained herein is not intended to cover all possible uses, directions, precautions, warnings, drug interactions, allergic reactions, or adverse effects. If you have questions about the drugs you are taking, check with your doctor, nurse or pharmacist. Copyright 7497-4967 [facility] [employer]. Version: 14.02. Revision Date: 04/23/2020. docusate (oral/rectal) [...] may report side effects to FDA at 0-734-DXS-8041. What other drugs will affect docusate? Other drugs may affect docusate, including prescription and gyxk-pca-pwwiirr medicines, vitamins, and herbal products. Tell your [...] to ensure that the information provided by [employer]. ('[employer]') is accurate, up-to-date, and complete, but no guarantee is made to that effect. Drug information contained herein may be time sensitive. [employer] information has been compiled for use by healthcare practitioners and consumers in the [place] and therefore [employer] does not warrant that uses outside of the [place] are appropriate, unless specifically indicated otherwise. [employer]'s drug information does not endorse drugs, diagnose patients or recommend therapy. [employer] drug information is an informational resource designed [...] effective or appropriate for any given patient. [employer] does not assume any responsibility for any aspect of healthcare administered with the aid of information [employer] provides. The information contained herein is not intended to cover all possible uses, directions, precautions, warnings, drug interactions, allergic reactions, or adverse effects. If you have questions about the drugs you are taking, check with your doctor, nurse or pharmacist. Copyright 8627-5477 [employer]. Version: 4.01. Revision Date: 10/01/2018. cephalexin (sef [...] may report side effects to FDA at 0-090-DTB-1050. What other drugs will affect cephalexin? Tell your doctor about all your other medicines, especially: ?? metformin; or ?? probenecid. This list is not complete. Other drugs may affect cephalexin, including prescription and urij-eez-sebtrmo medicines, vitamins, and herbal products. Not all [...] to ensure that the information provided by [employer]. ('[employer]') is accurate, up-to-date, and complete, but no guarantee is made to that effect. Drug information contained herein may be time sensitive. [employer] information has been compiled for use by healthcare practitioners and consumers in the [place] and therefore [employer] does not warrant that uses outside of the [place] are appropriate, unless specifically indicated otherwise. [employer] drug information does not endorse drugs, diagnose patients or recommend therapy. [employer] drug information is an informational resource designed [...] effective or appropriate for any given patient. [employer] does not assume any responsibility for any aspect of healthcare administered with the aid of information [employer] provides. The information contained herein is not intended to cover all possible uses, directions, precautions, warnings, drug interactions, allergic reactions, or adverse effects. If you have questions about the drugs you are taking, check with your doctor, nurse or pharmacist. Copyright 9073-9249 [employer]. Version: 10.03. Revision Date: 03/30/2020. tramadol (TRAM [...]
--- OUTSIDE RECORDS SUMMARY | 2024-10-30 12:03 | XMS_ITS | Encounter Summary ---
Author Organization [employer] ([place], [place], [place], [place]) Address [address] [place] [address] Care Team Providers Care Screw Cutter Name Role Phone Unavailable Primary Care Provider Unavailabl e Encounter Details Date Type Department Care Team (Late st Contact Info) Description 12/23/2020 Transcribed Document [facility] [place] [facility] [address] ProviderJaime MD [address] [place] [address] Social History Tobacco Use Types Packs/Day [...] 12/23/2020 7:23 EDT Electronically signed by Lakesha, [facility] Conversion Food Tester Cerner at 07/09/2022 10:51 AM CDT documented in this encounter Plan of Treatment Not on file documented as of this encounter Visit Diagnoses Not on filedocumented in this encounter
--- OUTSIDE RECORDS SUMMARY | 2024-10-30 12:03 | XMS_ITS | Clinical Summary ---
Author Organization Healthcare Address [address] [id number] Care Team Providers Care Post Doc Fellowship Name Role Phone Markus Huang PATIENT REGISTRATION CLERK Primary Care Provider [phone] Allergies Active Allergy Reactions Criticality Noted Date [...] Wellness (AWV) 1950 [facility]-Infant/Child/Adol SDOH Screenings 1950 [id number] Vaccine (#1) 1957 Diabetes: Dental Exam 1962 [...] Recently Relevant to Health Maintenance Results * Earle Hepatitis C Antibody (02/13/2019 6:35 PM EST) Earle Hepatitis C Ab NEGATIVE Reference Range: Negative [facility] 02/13/2019 6:35 PM EST 02/13/2019 7:06 PM EST us Major Diaz MD LAB BLOOD ORDERABLES Final Re sult [facility]QUEST from Last 3 Months or Most Recently Relevant to Health Maintenance Insurance [facility] MEDIC[facility] Care Teams Post Doc Fellowship Relationship Specialty Start Date End Date Markus Huang APRN [address] [place] [address] [place] [address] PCP - General 10/10/22
--- OUTSIDE RECORDS SUMMARY | 2024-10-30 12:03 | XMS_ITS | Encounter Summary ---
Author Organization [employer] ([place], [place], [place], [place]) Address [address] [place] [address] Care Team Providers Care Supervisor Looping Name Role Phone Unavailable Primary Care Provider Unavailabl e Encounter Details Date Type Department Care Team (Late st Contact Info) Description 12/23/2020 Transcribed Document [facility] [place] [address] [place] [address] ProviderJaime MD [address] [id number] Social History Tobacco Use Types Packs/Day Years [...] III /Sex: 1950 Male Med Rec #: [id number] Physician: KAYLA ZIMMERMAN JR, JR, MD-ORT Financial #: [id number] Pt. Type: O Room/Bed: Admit/Disch: 12/23/20 04:16:00 - [place] [facility] [place] Entry 1 In Preop 12/23/20 05:15:00 Ready for Holding n/a Room Patient Ready for 12/23/20 06:42:00 Surgery Patient Out of Preop 12/23/20 07:50:00 Patient Out of n/a Holding Room Last Modified By: Aden Boyce RN 12/23/20 07:46:17 SJE PreOp Case Times Audit 12/23/20 07:46:17 Tin Can Feeder: [email or web address] Modifier: [email or web address] <+> 1 Patient Out of Preop Finalized By: Aden Boyce, RN Document Signatures Signed By: Aden Boyce RN 12/23/20 07:46 documented in this encounter Plan of Treatment Not on file documented as of this encounter Visit Diagnoses Not on filedocumented in this encounter
--- OUTSIDE RECORDS SUMMARY | 2024-10-30 12:03 | XMS_ITS | Encounter Summary ---
Author Organization [employer] ([place], [place], [place], [place]) Address [address] [place] [address] Care Team Providers Care Fast Food Shift Supervisor Name Role Phone Unavailable Primary Care Provider Unavailabl e Encounter Details Date Type Department Care Team (Late st Contact Info) Description 12/23/2020 Transcribed Document [facility] [place] [facility] [place] [address] ProviderJaime MD [address], [place] [id number] Social History Tobacco Use Types Packs/Day Years [...]
--- OUTSIDE RECORDS SUMMARY | 2024-10-30 12:03 | XMS_ITS | Encounter Summary ---
Author Organization [employer] ([place], [place], [place], [place]) Address [address] [place] [address] Care Team Providers Care Raw Stock Machine Loader Name Role Phone Unavailable Primary Care Provider Unavailabl e Encounter Details Date Type Department Care Team (Late st Contact Info) Description 12/23/2020 Transcribed Document [facility] [place] [facility] [place] [address] ProviderJaime MD [address] [place], [place] [id number] Social History Tobacco Use Types Packs/Day Years [...] III /Sex: 1950 Male Med Rec #: [id number] Physician: AKYLA ZIMMERMAN JR, JR, MD-ORT Financial #: [id number] Pt. Type: O Room/Bed: Admit/Disch: 12/23/20 04:16:00 - Institution: [facility] IntraOp Case Attendance Entry 1 Entry 2 Entry 3 Case Attendee KAYLA ZIMMERMAN JR, JR, TARA MERA APRN,HAYDER KOROMA, LUCIE CHANCEORT Role Performed Surgeon/Proceduralist, LEGAL RECORDS MANAGER/Nurse Media Planner / Buyer Pad Hand, First First Time In 12/23/20 07:51:00 12/23/20 [...] 5 Entry 6 Case Attendee Stephan Boyce, FINISHER TAILOR APPRENTICE/MONITORING ANALYST GET ARIAS ST Peel, Polly, Scub Tech Role Performed Tunnel Worker, First Scrub, First Scrub, Second Time In [...] Case Attendee OTHER, ATTENDEE #1 NGOZI PETTY, LEGAL RECORDS MANAGER Role Performed Vendor LEGAL RECORDS MANAGER/Nurse Media Planner / Buyer Time In 12/23/20 07:51:00 12/23/20 08:29:00 Time Out 12/23/20 09:55:00 12/23/20 08:41:00 Procedure Knee Total Joint Knee Total Joint Replacement Replacement Other Attendee [place] LEGAL RECORDS MANAGER BREAK Superficial Wound Closed By: Thom Modified By: HAYDER EASON RN LONGSWORTH, GARY, LUCIE 12/23/20 07:19:17 12/23/20 08:29:30 [facility] IntraOp Case Attendance Audit 12/23/20 09:55:23 Meter Maintenance Person: LONGGA Modifier: LONGGA 1 <+> Time Out [...] Procedure Knee Total Joint Replacement 12/23/20 08:48:55 Meter Maintenance Person: LONGGA Modifier: LONGGA 8 <+> Time Out 8 <*> Procedure Knee Total Joint Replacement 12/23/20 08:29:30 Meter Maintenance Person: LONGGA Modifier: LONGGA <+> 8 Case Attendee <+> 8 Role Performed <+> 8 Time In <+> 8 Procedure <+> 8 Other Attendee 12/23/20 08:25:18 Meter Maintenance Person: LONGGA Modifier: LONGGA 1 <+> Time In [...] Procedure Knee Total Joint Replacement 12/23/20 07:25:50 Meter Maintenance Person: LONGGA Modifier: LONGGA <+> 1 Procedure 2 [...] [facility] IntraOp Case Times Audit 12/23/20 09:55:21 Meter Maintenance Person: LONGGA Modifier: LONGGA <+> 1 Out Room Time <+> 1 Stop Time <+> 1 Stop Time 12/23/20 08:21:13 Meter Maintenance Person: LONGGA Modifier: LONGGA <+> 1 Start Time [...] Condition After Cautery Last Modified By: HAYDER ESAON RN 12/23/20 08:26:49 SJE IntraOp Communication Entry [...] SJE IntraOp Counts Verification Audit 12/23/20 09:01:12 Meter Maintenance Person: LONGGA Modifier: LONGGA <+> 2 Procedure <+> [...] HAYDER EASON, LUCIE, Accompanied by TARA MERA APRN,LEGAL RECORDS MANAGER Last Modified By: HAYDER EASON RN 12/23/20 09:08:10 S[facility] IntraOp Dressing and Packing Entry 1 Type Dressing Location RIGHT KNEE Wound Dressing Item Papo Supplemental Limb immobilizer, Cold Applications pack Applied By Stephan Boyce, FINISHER TAILOR APPRENTICE/MONITORING ANALYST Other Comments JONATHAN WOUND DRESSING Last Modified [...] RN 12/23/20 07:24:40 SJE IntraOp General Case Soap Tender 1 Case Information OR OR 02 SJE Case Level 1 Room Verified Yes Wound Class I - Clean Specialty Orthopedic Anesthesia Type General ASA Class 3 Diagnosis Preop Diagnosis DEGENERATIVE JOINT DISEASE, RIGHT KNEE Postop Same As Preop Yes Postop Diagnosis DEGENERATIVE JOINT DISEASE, RIGHT KNEE Last Modified By: HAYDER EASON RN 12/23/20 08:27:58 S[facility] IntraOp General Case Data Audit 12/23/20 08:27:58 Meter Maintenance Person: YVETTE Modifier: LONGGA 1 <*> OR OR [...] PATELLA ITOTAL JIGS CR ITOTAL ID Identification [id number] Description Implant Quantity 2 1 1 Implant Site RIGHT KNEE RIGHT KNEE RIGHT KNEE Implant Identification Model Number Implant [id number] Identification Serial Number Implant [id number] Identification Lot Number Implant Blake:[place] Conformis Conformis Identification Orthopaedics History Teacher Name: Implant [id number] Identification Catalog Number Implant Size Implant Has an Yes Yes Yes Expiration Date Implant Expiration 01/24/22 09/23/22 12/24/21 Date Wasted Radioactive Material Time Implanted Tissue Implant Continue for Tissue Implant Documentation Tissue Identification Number Graft Prep Per History Teacher Instructions: Tissue Preparation Method: Reconstitution Solution: Reconstitution Solution Lot Number Reconstitution Solution Expiration Date: Thawing Solution Thawing Solution Lot Number Thawing Solution Expiration Date Preparation Materials, Other Preparation Materials, Other Lot Number Preparation Materials, Other Expiration Date Tissue Prepared/Processed By History Teacher Paperwork Completed Implant Type Comment Last Modified [...] KT CR FULL ITOTAL ID Identification KLEVER [id number] Description Implant Quantity 1 1 1 Implant Site RIGHT KNEE RIGHT KNEE RIGHT KNEE Implant Identification Model Number Implant [id number] Identification Serial Number Implant Identification Lot Number Implant Conformis Conformis Conformis Identification History Teacher Name: Implant [id number] Identification Catalog Number Implant Size Implant Has an Yes Yes Yes Expiration Date Implant Expiration 12/24/21 12/24/21 12/24/21 Date Wasted Radioactive Material Time Implanted Tissue Implant Continue for Tissue Implant Documentation Tissue Identification Number Graft Prep Per History Teacher Instructions: Tissue Preparation Method: Reconstitution Solution: Reconstitution Solution Lot Number Reconstitution Solution Expiration Date: Thawing Solution Thawing Solution Lot Number Thawing Solution Expiration Date Preparation Materials, Other Preparation Materials, Other Lot Number Preparation Materials, Other Expiration Date Tissue Prepared/Processed By History Teacher Paperwork Completed Implant Type Comment Last Modified By: HAYDER EASON RN LONGSWORTH, GARY, RN LONGSWORTH, GARY, RN 12/23/20 08:49:46 12/23/20 08:51:06 12/23/20 08:52:02 SJE IntraOp Implant Log Audit 12/23/20 08:52:02 Meter Maintenance Person: LONGGA Modifier: LONGGA <+> 6 Implant Identification Description <+> 6 Implant Identification Serial Number <+> 6 Implant Identification History Teacher Name: <+> 6 Implant Expiration Date <+> 6 Implant Site <+> 6 Implant Quantity <+> 6 Implant Identification Catalog Number <+> 6 Implant Type <+> 6 Implant Has an Expiration Date <+> 6 Type 12/23/20 08:51:06 Meter Maintenance Person: LONGGA Modifier: LONGGA <+> 5 Implant Identification Description <+> 5 Implant Identification Serial Number <+> 5 Implant Identification History Teacher Name: <+> 5 Implant Expiration Date <+> 5 Implant Site <+> 5 Implant Quantity <+> 5 Implant Identification Catalog Number <+> 5 Implant Type <+> 5 Implant Has an Expiration Date <+> 5 Type 12/23/20 08:49:46 Meter Maintenance Person: LONGGA Modifier: LONGGA <+> 4 Implant Identification Description <+> 4 Implant Identification Serial Number <+> 4 Implant Identification History Teacher Name: <+> 4 Implant Expiration Date <+> 4 Implant Site <+> 4 Implant Quantity <+> 4 Implant Identification Catalog Number <+> 4 Implant Type <+> 4 Implant Has an Expiration Date <+> 4 Type 12/23/20 08:48:24 Meter Maintenance Person: LONGGA Modifier: LONGGA <+> 3 Implant Expiration Date 12/23/20 08:48:23 Meter Maintenance Person: LONGGA Modifier: LONGGA <+> 3 Implant Identification Description <+> 3 Implant Identification Serial Number <+> 3 Implant Identification History Teacher Name: <+> 3 Implant Site <+> 3 Implant Quantity <+> 3 Implant Identification Catalog Number <+> 3 Implant Type <+> 3 Implant Has an Expiration Date <+> 3 Type 12/23/20 08:47:19 Meter Maintenance Person: LONGGA Modifier: LONGGA <+> 2 Implant Identification Description <+> 2 Implant Identification Lot Number <+> 2 Implant Identification History Teacher Name: <+> 2 Implant Expiration Date <+> [...] w/ vancomycin 1Gm vial - epinephrine 1:100,000 [id number] 20ml vial - [id number] Combo Med List 4 - Combo Med [...] SJE IntraOp Medication Admin Audit 12/23/20 08:39:42 Meter Maintenance Person: LONGGA Modifier: LONGGA <+> 5 Medication/Irrigant <+> [...] JR, MD-ORT, SAMARIA, TARA, URSULA,PAPO, [place]en, Stephan, FINISHER TAILOR APPRENTICE/MONITORING ANALYST Position Verified Positioning Yes Verified by Anesthesia [...] SJE IntraOp Surgical Procedures Audit 12/23/20 09:51:54 Meter Maintenance Person: LONGGA Modifier: LONGGA 1 <*> Procedure Knee Total Joint Replacement 1 <+> Stop 12/23/20 08:21:22 Meter Maintenance Person: LONGGA Modifier: LONGGA <+> 1 Start SJE IntraOp Temp Regulation Devices Entry 1 Temp Regulation Temperature Warm blankets Regulation Device Temperature Upper body Regulation Site Temperature SAMARIA, TARA, BOARD SAW RUNNER,LEGAL RECORDS MANAGER Regulation Device Applied by Last Modified By: [...] SJE IntraOp Time Out Audit 12/23/20 08:31:31 Meter Maintenance Person: YVETTE Modifier: YVETTE 1 <+> Surgeon 1 [...] Padded Under Cuff Applied By Stephan Boyce, KATHI/MONITORING ANALYST Times Start Time 12/23/20 08:10:00 Stop Time 12/23/20 08:59:00 Last Modified By: HAYDER EASON RN 12/23/20 09:00:54 SJE IntraOp Tourniquet Audit 12/23/20 09:00:54 Meter Maintenance Person: YVETTE Modifier: YVETTE <+> 1 Stop Time Case Comments <None> Finalized By: HAYDER EASON, RN Document Signatures Signed By: HAYDER EASON RN 12/23/20 09:59 Electronically signed by Lakesha [facility] Conversion Oracle Database Developer Cerner at 07/09/2022 10:43 AM CDT documented in this encounter Plan of Treatment Not on file documented as of this encounter Visit Diagnoses Not on filedocumented in this encounter
--- OUTSIDE RECORDS SUMMARY | 2024-10-30 12:03 | XMS_ITS | Clinical Summary ---
Author Organization [facility] Address [address] [place] [address] Care Team Providers Care Per Diem Physical Therapist Name Role Phone Columba Rodríguez APRN Primary Care Provider [phone] Allergies Active Allergy Reactions Criticality Noted Date [...] % ointment 12/06/19 23 Active nystatin (MYCOSTATIN) 434646 UNIT/GM cream 11/19/19 23 Active pioglitazone (ACTOS) [...] Active Cholecalcifero l (Vitamin D3) 1.25 MG (29263 UT) tablet Take 1 tablet by mouth [...] Type Department Care Team Description 10/18/[address] [facility] [address] [address] Adrianne Hdez APRN from Last [...] Description 12/13/2024 11:15 AM EDT Office Visit [facility] [address] [facility] [address] [place] [address] Cash Khanna DO [address] [facility] [address] [place] [address] Health Maintenance Due Date Last [...] 022, 01/31/2019, 01/11/2018, Additional history exists Insurance [facility] [employer] PPO Care Teams Per Diem Physical Therapist Relationship Specialty Start Date End Date Columba Rodríguez APRN [address] [place] [address] PCP - General Family Medicine 11/10/23
[2024-10-30 13:07] LABS: Hematocrit 30.7 % (42.0-52.0); Hemoglobin 9.9 g/dL (14.1-18.0); Immature Granulocytes % 0.4 %; Mean Corpuscular HGB Conc 32.2 g/dL (31.8-35.4); Mean Corpuscular Hemoglobin 24.6 pg (27.0-31.2); Mean Corpuscular Volume 76.2 fl (80-94); Nucleated Red Blood Cells % 0 %; Platelet Count 287 K/mm3 (142-424); Red Blood Count 4.03 M/mm3 (4.60-6.20); Red Cell Distribution Width-SD 40.6 fL; White Blood Count 5.3 K/mm3 (4.8-10.8)
[2024-10-30 13:30] LABS: Anion Gap 16.3 mEq/L (5-15); Blood Urea Nitrogen 15 mg/dl (9-20); Calcium 8.7 mg/dl (8.4-10.2); Carbon Dioxide 19 mmol/L (22.0-30.0); Chloride 104 mmol/L (98-107); Creatinine,Serum 1.10 mg/dl (0.66-1.25); Estimated Glomerular Filt Rate 66 ml/min (>60); GFR (African American) 80 ML/MIN (>60); Glucose 188 mg/dl (74-100); Potassium 4.3 mmoL/L (3.5-5.1); Sodium 135 mmol/L (136-145)
[2024-10-30 13:47] LABS: Free Thyroxine Index 3.0 ug/dL (5.93-13.13); T4 (Thyroxine) 8.5 ug/dl (5.53-11.0); Triiodothryronine (T3) Uptake 35 % (23.5-40.5)
[2024-10-30 14:01] LABS: Thyroid Stimulating Hormone 1.61 uIU/mL (0.465-4.68)
[2024-10-30 19:09] LABS: Amylase 62 U/L (30-110); Lipase 215 U/L (23-300)
[2024-10-30 19:18] LABS: NT Pro Brain Natriuretic Pep. 585 pg/mL (0-125)
== END 2024-10-30 23:59 | disposition home or self-care (01) ==
PROVIDERS: PCP Family Medicine; Visit Provider Nurse Practitioner
DX: Z00.00 Encounter for general adult medical examination without abnormal findings (principal); I25.10 Atherosclerotic heart disease of native coronary artery without angina pectoris; E78.2 Mixed hyperlipidemia; N28.89 Other specified disorders of kidney and ureter; R11.2 Nausea with vomiting, unspecified; R06.09 Other forms of dyspnea
CPT/HCPCS: 36415; 80048; 82150; 83690; 83880; 84436; 84443; 84479; 85025

== ENCOUNTER 2024-10-31 09:47 | Outpatient (CLI) | payer MEDICARE, SELFPAY ==
--- NOTE | 2024-10-31 16:00 | CT_ITS ---
PROCEDURE INFORMATION: Exam: CTA Chest With Contrast Exam date and time: 10/31/2024 4:18 PM Age: 74 years old Clinical indication: Other: Elevated ddimer, oliver SOB TECHNIQUE: Imaging protocol: Computed tomographic angiography of the chest with contrast. Exam focused on the arteries. 3D rendering (Not supervised by radiologist): MIP and/or 3D reconstructed images were created by the technologist. Radiation optimization: All CT scans at this facility use at least one of these dose optimization techniques: automated exposure control; mA and/or kV adjustment per patient size (includes targeted exams where dose is matched to clinical indication); or iterative reconstruction. Contrast material: ISO 370; Contrast volume: 85 ml; Contrast route: INTRAVENOUS (IV); COMPARISON: CR XR CHEST PORTABLE 01/22/2024 5:21 PM FINDINGS: Pulmonary arteries: The pulmonary arteries are normal in course and caliber. No pulmonary emboli. Aorta: Mild diffuse calcific atherosclerosis of the aorta. No acute pathology in the aorta. No aortic aneurysm. Thyroid: The thyroid gland is normal. Trachea: Airways are patent. Lungs: Bilateral apical capping/scarring. Bilateral bronchial wall thickening. Chronic interstitial reticulation in the medial segments of the right lower lobe, related to chronic scarring from compression of adjacent thoracic spine osteophytes. This is of no concern. Chronic interstitial reticulation in the bilateral lung bases. No honeycombing or traction bronchiectasis. Consistent with early chronic interstitial disease. No consolidations. No concerning lung nodules. Pleural spaces: No pleural effusions or pneumothorax. Heart: Concern for mild left ventricular enlargement. Consider correlation with echocardiography. No pericardial thickening or effusion. Coronary arteries: There is severe atherosclerotic calcification of the coronary arteries. Mediastinal space: The mediastinal contour is normal. Lymph nodes: No concerning adenopathy. Liver: Diffuse decrease in hepatic parenchymal density, consistent with fatty infiltration. Gallbladder and biliary ducts: Cholecystectomy. Kidneys: Residual contrast material within the left renal pelvicaliceal system. Indeterminate 2.4 cm exophytic lesion in the left kidney is partially seen. Ultrasound correlation is recommended for adequate characterization. Bones/joints: Severe multilevel degenerative changes of the spine. No acute skeletal abnormality or aggressive osseous lesion. Soft tissues: No acute soft tissue findings. IMPRESSION: 1. No pulmonary emboli. 2. Acute/chronic bronchitis or reactive airways disease. 3. Incidental findings as above. COMMENTS: Consistent with the [place] [employer]'s Incidental Findings Committee white paper (J Am Danielito Radiol 2018): Any incidental renal lesion less than 1 cm or classified as too small to characterize, or any incidental cystic renal lesion characterized as simple-appearing, is likely benign. No follow-up imaging is recommended for these lesions per consensus recommendations based on imaging criteria.
[2024-10-31] MEDS: 0.9 % SODIUM CHLORIDE 50 ML VIAL IV (16:31)
[2024-10-31] MEDS: IOPAMIDOL-370 (76%);100ML BOTTLE 85 ML IV (16:31)
[2024-10-31] MEDS: SODIUM CHLORIDE 0.9% 10ML SYR (RAD ONLY) 10 ML IV (16:31)
--- OUTSIDE RECORDS SUMMARY | 2024-11-04 09:52 | XMS_ITS | Encounter Summary ---
Author Organization [employer] ([place], [place], [place], [place]) Address [address] [place] [address] Care Team Providers Care It Associate Name Role Phone Unavailable Primary Care Provider Unavailabl e Encounter Details Date Type Department Care Team (Late st Contact Info) Description 12/09/2020 Transcribed Document [facility] [place] [address] [place] [address] ProviderJaime MD [address] [place], [place] [id number] Social History Tobacco Use Types Packs/Day Years [...] : Standing scale Weight Entry Format : [place] Clinical Dosing Weight : 95.91 kg Weight, Pounds : 211 lb Body Surface Area (BSA) : 2.12 m2 Body Mass Index : 31.2 kg/m2 (HI) [place] Body Weight : 70 kg Michaela Alvarez Rn - 12/09/2020 16:02 EDT Height Source : Stated Height Entry Format : [place] Michaela Alvarez Rn - 12/09/2020 15:57 EDT [...] Michaela Alvarez Rn - 12/09/2020 16:02 EDT [place] Suicide Severity Rating Scale (C-SSRS) CSSRS Past [...] Obtained From : Patient Primary Language : Mozambican Preferred Communication Mode : Verbal Communication Barrier : None Hog Feeder Needed : No Michaela Alvarez Rn - [...]
--- OUTSIDE RECORDS SUMMARY | 2024-11-04 09:52 | XMS_ITS | Encounter Summary ---
Author Organization [employer] ([place], [place], [place], [place]) Address [address] [place] [address] Care Team Providers Care Transitional Living Specialist Name Role Phone Unavailable Primary Care Provider Unavailabl e Encounter Details Date Type Department Care Team (Late st Contact Info) Description 12/24/2020 Transcribed Document [facility] [place] Medicine [facility] [place] [address] ProviderJaime MD [address] [place] [phone] Social History Tobacco Use Types Packs/Day Years [...] right total knee replacement, final condition improved. /[id number] MD RAO Gibbs Jr/DIANNA / RAO / MODL /[id number] documented in this encounter Plan of Treatment Not on file documented as of this encounter Visit Diagnoses Not on filedocumented in this encounter
--- OUTSIDE RECORDS SUMMARY | 2024-11-04 09:52 | XMS_ITS | Encounter Summary ---
Author Organization [employer] ([place], [place], [place], [place]) Address [address] [place] [address] Care Team Providers Care Steam Finisher Name Role Phone Unavailable Primary Care Provider Unavailabl e Encounter Details Date Type Department Care Team (Late st Contact Info) Description 12/16/2020 Transcribed Document [facility] [place] Medicine [address] [place] [address] ProviderJaime MD [address] [place] [phone] Social History Tobacco Use Types Packs/Day Years [...] Source : Stated Height Entry Format : [place] Height, Feet : 5 ft(Converted to: 152 cm, 60 Inch) Height, Inches : 9 Inch(Converted to: 0 ft 9 Inch, 22.86 cm) Clinical Height : 175.26 cm Weight Source : Standing scale Weight Entry Format : [place] Clinical Dosing Weight : 96.93 kg Weight, Pounds : 213 lb Weight, Ounces : 4 oz Body Surface Area (BSA) : 2.12 m2 Body Mass Index : 31.6 kg/m2 (HI) [place] Body Weight : 70 kg CIARA WOODS [...] Spiritual/Cultural Needs or Requests : No CIARA WODOS RN - 12/16/2020 6:51 EDT [place] Suicide Severity Rating Scale (C-SSRS) CSSRS Past [...] Obtained From : Patient Primary Language : Fijian Preferred Communication Mode : Verbal Communication Barrier : None Heating Unit Installer Needed : No CIARA WOODS RN - [...] form. Electronically signed by Interface, Adolph Conversion Hand Cigar Making Supervisor Cerner at 07/09/2022 10:37 AM CDT documented in this encounter Plan of Treatment Not on file documented as of this encounter Visit Diagnoses Not on filedocumented in this encounter
--- OUTSIDE RECORDS SUMMARY | 2024-11-04 09:52 | XMS_ITS | Referral Summary ---
Author Organization [employer] ([place], [place], [place], [place]) Address [address] [place] [address] Care Team Providers Care Unix Engineer Name Role Phone Unavailable Primary Care [...] Date Milton rded Speak language other than Vincentian at home Not on file 01/23/2024 Want [...] Plan of Treatment Not on file Insurance [facility] MEDICARE ADVANTAGE
--- OUTSIDE RECORDS SUMMARY | 2024-11-04 09:52 | XMS_ITS | Clinical Summary ---
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 12/16 Imelda Hollis Nonspecific tuberculin test reaction + 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 R76.12 (ICD-10-CM ) 09/18 Active 09/18 Imelda Bunny 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 gamma interferon antigen response without active tuberculosis Edema, limb 399852615 (SNOMED CT) 09/21 Resolved 09/21 Imelda Hollis Edema of extremity Right Leg Edema, limb 932261522 (SNOMED CT) 09/21 Removed 09/21 Jer Zhang [...] DAY 2 THROUGH DAY 5 12/19 azithromycin 48234532015 Cinda Rolando BENZONATATE 100 MG CAPS Take 1 capsule by mouth three times a day as needed 12/19 BENZONATATE Cinda Fu TRIAZOLAM 0.25 MG TABS Take 1 tablet by mouth 12/19 triazolam 17686758405 Cinda Fu LORAZEPAM 1 MG TABS Take 1 tablet 12/19 lorazepam 80556152490 Cinda Fu LEVOFLOXACIN 750 MG TABS Take 1 tablet by mouth once a day 12/19 levofloxacin 35300701765 Cinda Rolando LOSARTAN POTASSIUM 50 MG TABS one tab oral daily 12/19 losartan 76679995629 Cinda Rolando NYSTATIN 609991 UNIT/GM OINT Apply to skin once a day 12/19 nystatin 61929447127 Cinda Fu RIFAMPIN 300 MG CAPS Take 2 by mouth once a day 12/19 rifampin 52853574402 Cinda Rolando CYCLOBENZAPRINE HCL 5 MG TABS one tab oral daily 12/19 cyclobenzaprine 44927552557 Cinda Fu ISONIAZID 300 MG TABS Take 1 tablet by mouth once a day 12/19 isoniazid 68004274661 Cinda PROMETHAZINE-CODEI NE 6.25-10 MG/5ML SYRP Take 5 ml by mouth twice a day 12/19 promethazine-code ine 53924356465 Cinda Fu DICYCLOMINE HCL 10 MG CAPS 1 cap oral twice a day 12/19 dicyclomine 24361926055 Cinda Fu CLOPIDOGREL BISULFATE 75 MG TABS Take 1 tablet by mouth once a day 12/19 clopidogrel 14984363652 Cinda Marshall HYDROCOD POLST-CPM POLST ER 10-8 MG/5ML ORAL SUSPENSION EXTENDED RELEASE Take 1 teaspoon by mouth twice a day 12/19 HYDROCOD POLST-CPM POLST ER 10-8 MG/5ML ORAL SUSPENSION EXTENDED RELEASE Cinda Marshall PLAVIX 75 MG TABS once a day clopidogrel 4561861 7190 Cinda Marshall TRIAZOLAM 0.25 MG TABS Take 1 tablet by mouth 09/24 triazolam 53658627010 Melvin Hartman ISONIAZID 300 MG TABS Take 1 tablet by mouth once a day 12/19 isoniazid 24206959287 Melvin Hartman CLOPIDOGREL BISULFATE 75 MG TABS Take 1 tablet by mouth once a day 12/19 clopidogrel 50210812696 Melvin Hartman LORAZEPAM 1 MG TABS Take 1 tablet 12/19 lorazepam 19638370058 Melvin Hartman NYSTATIN 279992 UNIT/GM OINT Apply to skin once a day 12/19 nystatin 08981107341 Melvin Hartman HYDROCOD POLST-CPM POLST ER 10-8 MG/5ML ORAL SUSPENSION EXTENDED RELEASE Take 1 teaspoon by mouth twice a day 12/19 HYDROCOD POLST-CPM POLST ER 10-8 MG/5ML ORAL SUSPENSION EXTENDED RELEASE Melvin Hartman AZITHROMYCIN 250 MG TABS TAKE 2 TABLETS BY MOUTH ON DAY 1 AND THEN TAKE 1 TABLET BY MOUTH ONCE A DAY ON DAY 2 THROUGH DAY 5 09/24 azithromycin 85363970004 Melvin Hartman RIFAMPIN 300 MG CAPS Take 2 by mouth once a day 09/24 rifampin 88856958238 Melvin Hartman PROMETHAZINE-CODEI NE 6.25-10 MG/5ML SYRP Take 5 ml by mouth twice a day 05/09 promethazine-code ine 21478523781 Melvin Hartman BENZONATATE 100 MG CAPS Take 1 capsule by mouth three times a day as needed 12/19 BENZONATATE Melvin Hartman LEVOFLOXACIN 750 MG TABS Take 1 tablet by mouth once a day 12/19 levofloxacin 37741187806 Melvin Hartman DICYCLOMINE HCL 10 MG CAPS 1 cap oral twice a day 09/24 dicyclomine 58190204745 Melvin Hartman SIMVASTATIN 20 MG TABS one tab oral daily simvastatin 86159977205 Melvin Hartman LOSARTAN POTASSIUM 50 MG TABS one tab oral daily 09/24 losartan 43777755386 Melvin Hartman CYCLOBENZAPRINE HCL 5 MG TABS one tab oral daily 09/24 cyclobenzaprine 25781619833 Melvin Hartman TRAMADOL HCL 50 MG TABS one tab every 6 hours prn tramadol 50940727529 Melvin Hartman METFORMIN HCL 500 MG TABS one tab oral twice a day metformin 79154715913 Melvin Hartman RIFAMPIN 300 MG CAPS take 2 po daily 09/24 RIFAMPIN 51945189546 Jer Zhang MD ISONIAZID 300 MG TABS Take 1 tablet by mouth daily 12/16 ISONIAZID 15001979393 Jer Zhang MD AZITHROMYCIN 250 MG TABS TAKE 2 TABLETS BY MOUTH ON DAY 1 AND THEN TAKE 1 TABLET BY MOUTH ONCE A DAY ON DAY 2 THROUGH DAY 5 09/24 AZITHROMYCIN 15953282672 Gerald Ocasio BENZONATATE 100 MG CAPS TAKE 1 CAPSULE BY MOUTH THREE TIMES DAILY FOR 10 DAYS NEEDED FOR COUGH 12/16 BENZONATATE 68467659377 Gerald Ocasio PROMETHAZINE-CODEI NE 6.25-10 MG/5ML SOLN TAKE 5 ML BY MOUTH TWICE DAILY 12/16 PROMETHAZINE-CODE INE 38409622889 Gerald Ocasio LEVOFLOXACIN 750 MG TABS TAKE 1 TABLET BY MOUTH ONCE DAILY FOR 8 DAYS 12/16 LEVOFLOXACIN 36043390032 Gerald Ocasio CLOPIDOGREL BISULFATE 75 MG TABS TAKE 1 TABLET BY MOUTH ONCE DAILY 12/16 CLOPIDOGREL BISULFATE 23876608240 Gerald D NYSTATIN 884236 UNIT/GM OINT APPLY OINTMENT TOPICALLY ONCE DAILY 12/16 NYSTATIN 11054971141 Gerald D HYDROCOD POLST-CPM POLST ER 10-8 MG/5ML ORAL SUSPENSION EXTENDED RELEASE TAKE 1 TEASPOONFUL (5 ML) BY MOUTH TWICE DAILY MAY CAUSE DROWSINESS 12/16 HYDROCOD POLST-CHLORPHEN POLST 95967888880 Gerald D TRIAZOLAM 0.25 MG TABS TAKE 1 TABLET BY MOUTH 30 MINUTES PRIOR TO MRI ON 09/24 TRIAZOLAM 58093146826 Gerald D LORAZEPAM 1 MG TABS TAKE 1 TABLET 2 HOURS BEFORE MRI FOR ANXIETY 12/16 LORAZEPAM 15184189244 Gerald D Medications Administered No information available. Allergies, Adverse Reactions, Alerts Allergy Name Reaction Description Start Date Severity Statu s Provider PENICILLINS Mild Active Gerald D Results Date Name Value Unit Range Flag Description Office Visit: Office Visit:r m 3- new/ old MEDS REVIEW Done Documenta tion of current medications (procedure) SMOK STATUS Never smoker Toba finisher accordion smoking status Plan of Care Type Date Detail Pending order Sputum for AFB Pending order C-Diff PCR Pending order GI PCR Panel Pending order AFB Smear with C ulture Pending order Other Pending order New Oral Antibio tic Procedures Code Procedure Name Date Entry Date CPT-cdpcr C-Diff PCR CPT-47111 GI PCR Panel CPT-80433 AFB Smear with Culture 12/19 CPT-LAB Other [...] Description Start Date HEALTHCARE SURROGATE POWER OF EMERGENCY SERVICES PROFESSIONAL HAS LIVING WILL ON FILE
--- OUTSIDE RECORDS SUMMARY | 2024-11-04 09:52 | XMS_ITS | Encounter Summary ---
Author Organization [employer] ([place], [place], [place], [place]) Address [address] [place] [address] Care Team Providers Care Oral Hygienist Name Role Phone Unavailable Primary Care Provider Unavailabl e Encounter Details Date Type Department Care Team (Late st Contact Info) Description 12/16/2020 Transcribed Document [facility] [place] [address] ProviderJaime MD [address] [place], [place] [address] Social History Tobacco Use Types Packs/Day Years [...]
--- OUTSIDE RECORDS SUMMARY | 2024-11-04 09:52 | XMS_ITS | Encounter Summary ---
Author Organization [employer] ([place], [place], [place], [place]) Address [address] [place] [address] Care Team Providers Care Senior Cyber Intelligence Analyst Name Role Phone Unavailable Primary Care Provider Unavailabl e Encounter Details Date Type Department Care Team (Late st Contact Info) Description 12/09/2020 Transcribed Document [facility] [place] Family Medicine [address] [place] [address] ProviderJaime MD [address] [place], [place] [address] Social History Tobacco Use Types Packs/Day Years [...] EDT Electronically signed by Adolph Crowder Conversion Medicare Insurance Specialist Cerner at 07/09/2022 10:45 AM CDT documented in this encounter Plan of Treatment Not on file documented as of this encounter Visit Diagnoses Not on filedocumented in this encounter
--- OUTSIDE RECORDS SUMMARY | 2024-11-04 09:52 | XMS_ITS | Encounter Summary ---
Author Organization [employer] ([place], [place], [place], [place]) Address [address] [place] [address] Care Team Providers Care Collect On Delivery Clerk Name Role Phone Unavailable Primary Care Provider Unavailabl e Encounter Details Date Type Department Care Team (Late st Contact Info) Description 12/08/2020 Transcribed Document [facility] [place] [address] [place] [address] ProviderJaime MD [address] [place], [place] [address] Social History Tobacco Use Types Packs/Day Years [...] Health Plan: [employer] MEDICARE REPL Policy Number: [id number] Authorization Number: Insurance Primary Name : [employer] MEDICARE REPL Policy Number: [id number] Authorization Status-Primary : Opo status approv Authorized Service Begin Date-Primary : 12/16/2020 EDT Observation Authorization Nbr-Primary : [id number] Authorization Comments-Primary : [employer] Medicare approved for outpt per availity Historical Authorization Comments-Primary : No Authorization Comments Found ROLANDO TABARES RN-Utilization Review - 12/08/2020 15:21 EDT Electronically signed by Lakesha [facility] Conversion Roller Inspector Cerner at 07/09/2022 10:42 AM CDT documented in this encounter Plan of Treatment Not on file documented as of this encounter Visit Diagnoses Not on filedocumented in this encounter
--- OUTSIDE RECORDS SUMMARY | 2024-11-04 09:52 | XMS_ITS | Clinical Summary ---
Author Organization [employer] ([place], [place], [place], [place]) Address [address] [place], [place] [address] Care Team Providers Care E Commerce Manager Name Role Phone Unavailable Primary Care [...] Date Milton rded Speak language other than Citizen Of [place] at home Not on file 01/23/2024 Want [...] Treatment Not on file Insurance [facility] MEDICARE ADVANTAGE
--- OUTSIDE RECORDS SUMMARY | 2024-11-04 09:52 | XMS_ITS | Encounter Summary ---
Author Organization [employer] ([place], [place], [place], [place]) Address [address] [place] [address] Care Team Providers Care Ladle Patcher Name Role Phone Unavailable Primary Care Provider Unavailabl e Encounter Details Date Type Department Care Team (Late st Contact Info) Description 12/09/2020 Transcribed Document [facility] [place] Family Medicine [facility] [place] [address] ProviderJaime MD [address] [place] [phone] Social History Tobacco Use Types Packs/Day Years [...] Appearance CLEAR2 12/09/2020 16:01 EDT Urine Specific [place] *1.026 12/09/2020 16:01 EDT Urine pH Dipstick [...]
--- OUTSIDE RECORDS SUMMARY | 2024-11-04 09:53 | XMS_ITS | Encounter Summary ---
Author Organization [employer] ([place], [place], [place], [place]) Address [address] [place] [address] Care Team Providers Care Bag Inspector Name Role Phone Unavailable Primary Care Provider Unavailabl e Encounter Details Date Type Department Care Team (Late st Contact Info) Description 12/23/2020 Transcribed Document [facility] [place] [facility] [place] [address] ProviderJaime MD [address] [place], [place] [phone] Social History Tobacco Use Types Packs/Day Years [...] III /Sex: 1950 Male Med Rec #: [id number] Physician: KAYLA ZIMMERMAN JR, JR, MD-ORT Financial #: [id number] Pt. Type: O Room/Bed: Admit/Disch: 12/23/20 04:16:00 - Institution: [facility] [place] IntraOp Case Attendance Entry 1 Entry 2 Entry 3 Case Attendee KAYLA ZIMMERMAN JR, JR, TARA MERA APRN,HAYDER KOROMA, LUCIE CHANCEORT Role Performed Surgeon/Proceduralist, METALLURGICAL OR MATERIALS TECHNICIAN/Nurse Bottle Feeder Laborer Yard, First First Time In 12/23/20 07:51:00 12/23/20 [...] 5 Entry 6 Case Attendee Stephan Boyce, WATCH BAND ASSEMBLER/COUNTER FORMER GET [address] [facility] Peel, Polly, Scub Tech Role Performed Cloth Designer, First Scrub, First Scrub, Second Time In 12/23/20 07:51:00 12/23/20 07:51:00 12/23/20 07:51:00 Time Out 12/23/20 09:55:00 12/23/20 09:55:00 12/23/20 09:55:00 Procedure Knee Total Joint Knee Total Joint Knee Total Joint Replacement Replacement Replacement Other Attendee Superficial Wound Closed By: Last Modified By: HADYER EASON RN LONGSWORTH, GARY, HAYDER MASON, LUCIE 12/23/20 09:55:23 12/23/20 09:55:23 12/23/20 09:55:23 Entry 7 Entry 8 Case Attendee OTHER, ATTENDEE #1 NGOZI PETTY, METALLURGICAL OR MATERIALS TECHNICIAN Role Performed Vendor METALLURGICAL OR MATERIALS TECHNICIAN/Nurse Bottle Feeder Time In 12/23/20 07:51:00 12/23/20 08:29:00 Time Out 12/23/20 09:55:00 12/23/20 08:41:00 Procedure Knee Total Joint Knee Total Joint Replacement Replacement Other Attendee [place] METALLURGICAL OR MATERIALS TECHNICIAN BREAK Superficial Wound Closed By: Thom Modified By: HAYDER EASON RN LONGSWORTH, GARY, LUCIE 12/23/20 07:19:17 12/23/20 08:29:30 [facility] IntraOp Case Attendance Audit 12/23/20 09:55:23 Manager Strategic Marketing: LONGGA Modifier: LONGGA 1 <+> Time Out [...] Procedure Knee Total Joint Replacement 12/23/20 08:48:55 Manager Strategic Marketing: LONGGA Modifier: LONGGA 8 <+> Time Out 8 <*> Procedure Knee Total Joint Replacement 12/23/20 08:29:30 Manager Strategic Marketing: LONGGA Modifier: LONGGA <+> 8 Case Attendee <+> 8 Role Performed <+> 8 Time In <+> 8 Procedure <+> 8 Other Attendee 12/23/20 08:25:18 Manager Strategic Marketing: LONGGA Modifier: LONGGA 1 <+> Time In [...] Procedure Knee Total Joint Replacement 12/23/20 07:25:50 Manager Strategic Marketing: LONGGA Modifier: LONGGA <+> 1 Procedure 2 [...] [facility] IntraOp Case Times Audit 12/23/20 09:55:21 Manager Strategic Marketing: LONGGA Modifier: LONGGA <+> 1 Out Room Time <+> 1 Stop Time <+> 1 Stop Time 12/23/20 08:21:13 Manager Strategic Marketing: LONGGA Modifier: LONGGA <+> 1 Start Time [...] [facility] IntraOp Counts Verification Audit 12/23/20 09:01:12 Manager Strategic Marketing: LONGGA Modifier: LONGGA <+> 2 Procedure <+> [...] HAYDER EASON, LUCIE, Accompanied by TARA MERA APRN,METALLURGICAL OR MATERIALS TECHNICIAN Last Modified By: HAYDER EASON RN 12/23/20 09:08:10 [facility] IntraOp Dressing and Packing Entry 1 Type Dressing Location RIGHT KNEE Wound Dressing Item Papo Supplemental Limb immobilizer, Cold Applications pack Applied By Stephan Boyce, WATCH BAND ASSEMBLER/COUNTER FORMER Other Comments JONATHAN WOUND DRESSING Last Modified [...] RN 12/23/20 07:24:40 [facility] IntraOp General Case Hot Box Operator 1 Case Information OR OR 02 SJE Case Level 1 Room Verified Yes Wound Class I - Clean Specialty Orthopedic Anesthesia Type General ASA Class 3 Diagnosis Preop Diagnosis DEGENERATIVE JOINT DISEASE, RIGHT KNEE Postop Same As Preop Yes Postop Diagnosis DEGENERATIVE JOINT DISEASE, RIGHT KNEE Last Modified By: HAYDER EASON RN 12/23/20 08:27:58 [facility] IntraOp General Case Data Audit 12/23/20 08:27:58 Manager Strategic Marketing: YVETTE Modifier: LONGGA 1 <*> OR OR [...] PATELLA ITOTAL JIGS CR ITOTAL ID Identification [id number] Description Implant Quantity 2 1 1 Implant Site RIGHT KNEE RIGHT KNEE RIGHT KNEE Implant Identification Model Number Implant [id number] Identification Serial Number Implant [id number] Identification Lot Number Implant Fitzwilliam:Fitzwilliam Conformis Conformis Identification Orthopaedics Finishing Range Operator Name: Implant [id number] Identification Catalog Number Implant Size Implant Has an Yes Yes Yes Expiration Date Implant Expiration 01/24/22 09/23/22 12/24/21 Date Wasted Radioactive Material Time Implanted Tissue Implant Continue for Tissue Implant Documentation Tissue Identification Number Graft Prep Per Finishing Range Operator Instructions: Tissue Preparation Method: Reconstitution Solution: Reconstitution Solution Lot Number Reconstitution Solution Expiration Date: Thawing Solution Thawing Solution Lot Number Thawing Solution Expiration Date Preparation Materials, Other Preparation Materials, Other Lot Number Preparation Materials, Other Expiration Date Tissue Prepared/Processed By Finishing Range Operator Paperwork Completed Implant Type Comment Last [...] KT CR FULL ITOTAL ID Identification KLEVER [id number] Description Implant Quantity 1 1 1 Implant Site RIGHT KNEE RIGHT KNEE RIGHT KNEE Implant Identification Model Number Implant [id number] Identification Serial Number Implant Identification Lot Number Implant Conformis Conformis Conformis Identification Finishing Range Operator Name: Implant [id number] Identification Catalog Number Implant Size Implant Has an Yes Yes Yes Expiration Date Implant Expiration 12/24/21 12/24/21 12/24/21 Date Wasted Radioactive Material Time Implanted Tissue Implant Continue for Tissue Implant Documentation Tissue Identification Number Graft Prep Per Finishing Range Operator Instructions: Tissue Preparation Method: Reconstitution Solution: Reconstitution Solution Lot Number Reconstitution Solution Expiration Date: Thawing Solution Thawing Solution Lot Number Thawing Solution Expiration Date Preparation Materials, Other Preparation Materials, Other Lot Number Preparation Materials, Other Expiration Date Tissue Prepared/Processed By Finishing Range Operator Paperwork Completed Implant Type Comment Last Modified By: HAYDER EASON RN LONGSWORTH, GARY, RN LONGSWORTH, GARY, RN 12/23/20 08:49:46 12/23/20 08:51:06 12/23/20 08:52:02 [facility] IntraOp Implant Log Audit 12/23/20 08:52:02 Manager Strategic Marketing: LONGGA Modifier: LONGGA <+> 6 Implant Identification Description <+> 6 Implant Identification Serial Number <+> 6 Implant Identification Finishing Range Operator Name: <+> 6 Implant Expiration Date <+> 6 Implant Site <+> 6 Implant Quantity <+> 6 Implant Identification Catalog Number <+> 6 Implant Type <+> 6 Implant Has an Expiration Date <+> 6 Type 12/23/20 08:51:06 Manager Strategic Marketing: LONGGA Modifier: LONGGA <+> 5 Implant Identification Description <+> 5 Implant Identification Serial Number <+> 5 Implant Identification Finishing Range Operator Name: <+> 5 Implant Expiration Date <+> 5 Implant Site <+> 5 Implant Quantity <+> 5 Implant Identification Catalog Number <+> 5 Implant Type <+> 5 Implant Has an Expiration Date <+> 5 Type 12/23/20 08:49:46 Manager Strategic Marketing: LONGGA Modifier: LONGGA <+> 4 Implant Identification Description <+> 4 Implant Identification Serial Number <+> 4 Implant Identification Finishing Range Operator Name: <+> 4 Implant Expiration Date <+> 4 Implant Site <+> 4 Implant Quantity <+> 4 Implant Identification Catalog Number <+> 4 Implant Type <+> 4 Implant Has an Expiration Date <+> 4 Type 12/23/20 08:48:24 Manager Strategic Marketing: LONGGA Modifier: LONGGA <+> 3 Implant Expiration Date 12/23/20 08:48:23 Manager Strategic Marketing: LONGGA Modifier: LONGGA <+> 3 Implant Identification Description <+> 3 Implant Identification Serial Number <+> 3 Implant Identification Finishing Range Operator Name: <+> 3 Implant Site <+> 3 Implant Quantity <+> 3 Implant Identification Catalog Number <+> 3 Implant Type <+> 3 Implant Has an Expiration Date <+> 3 Type 12/23/20 08:47:19 Manager Strategic Marketing: LONGGA Modifier: LONGGA <+> 2 Implant Identification Description <+> 2 Implant Identification Lot Number <+> 2 Implant Identification Finishing Range Operator Name: <+> 2 Implant Expiration Date [...] ml ml ml Volume Administered By KAYLA ZIMMERAMN JR, JR, ERASMO SILVA, KAYLA SILVA, KAYLA ZIMMERMAN JR, JR, MD-ORT MD-ORT MD-ORT Procedure Irrigation Irrigant Volume In Irrigant Volume Out Last Modified By: HAYDER EASON RN LONGSWORTH, GARY, RN LONGSWORTH, GARY, RN 12/23/20 08:32:34 12/23/20 08:32:34 12/23/20 08:32:34 Entry 4 Entry 5 Medication/Irrigant lidocaine 1% w/ vancomycin 1Gm vial - epinephrine 1:100,000 [id number] 20ml vial - [id number] Combo Med List 4 - Combo Med [...] [facility] IntraOp Medication Admin Audit 12/23/20 08:39:42 Manager Strategic Marketing: LONGGA Modifier: LONGGA <+> 5 Medication/Irrigant <+> [...] JR, MD-ORT, SAMARIA, TARA, URSULA,PAPO, Austen, Stephan, WATCH BAND ASSEMBLER/COUNTER FORMER Position Verified Positioning Yes Verified by Anesthesia [...] [facility] IntraOp Surgical Procedures Audit 12/23/20 09:51:54 Manager Strategic Marketing: LONGGA Modifier: LONGGA 1 <*> Procedure Knee Total Joint Replacement 1 <+> Stop 12/23/20 08:21:22 Manager Strategic Marketing: LONGGA Modifier: LONGGA <+> 1 Start [facility] IntraOp Temp Regulation Devices Entry 1 Temp Regulation Temperature Warm blankets Regulation Device Temperature Upper body Regulation Site Temperature SAMARIA, TARA, SPRING ASSEMBLER,METALLURGICAL OR MATERIALS TECHNICIAN Regulation Device Applied by Last Modified [...] S[facility] IntraOp Time Out Audit 12/23/20 08:31:31 Manager Strategic Marketing: YVETTE Modifier: YVETTE 1 <+> Surgeon 1 [...] Padded Under Cuff Applied By Stephan Boyce, KATHI/COUNTER FORMER Times Start Time 12/23/20 08:10:00 Stop Time 12/23/20 08:59:00 Last Modified By: HAYDER EASON RN 12/23/20 09:00:54 [facility] IntraOp Tourniquet Audit 12/23/20 09:00:54 Manager Strategic Marketing: YVETTE Modifier: YVETTE <+> 1 Stop Time Case Comments <None> Finalized By: HAYDER EASON, RN Document Signatures Signed By: HAYDER EASON RN 12/23/20 09:59 Electronically signed by Lakesha [facility] Conversion Sports Attorney Cerner at 07/09/2022 10:43 AM CDT documented in this encounter Plan of Treatment Not on file documented as of this encounter Visit Diagnoses Not on filedocumented in this encounter
--- OUTSIDE RECORDS SUMMARY | 2024-11-04 09:53 | XMS_ITS | Encounter Summary ---
Author Organization [employer] ([place], [place], [place], [place]) Address [address] [place] [address] Care Team Providers Care Medical Office Receptionist Assistant Name Role Phone Unavailable Primary Care Provider Unavailabl e Encounter Details Date Type Department Care Team (Late st Contact Info) Description 12/23/[address] [facility] [place] Family Medicine [address] [place] [address] ProviderJaime MD [address], [place] [phone] Social History Tobacco Use Types Packs/Day Years [...] EDT Electronically signed by Adolph Crowder Conversion Environmental Services Associate Cerner at 07/09/2022 10:37 AM CDT documented in this encounter Plan of Treatment Not on file documented as of this encounter Visit Diagnoses Not on filedocumented in this encounter
--- OUTSIDE RECORDS SUMMARY | 2024-11-04 09:53 | XMS_ITS | Encounter Summary ---
Author Organization [employer] ([place], [place], [place], [place]) Address [address] [place] [address] Care Team Providers Care Cardiology Nurse Practitioner Name Role Phone Unavailable Primary Care Provider Unavailabl e Encounter Details Date Type Department Care Team (Late st Contact Info) Description 12/23/2020 Transcribed Document [facility] [place] Family Medicine [address] [place] [address] ProviderJaime MD [address], [place] [phone] Social History Tobacco Use Types Packs/Day Years [...]
--- OUTSIDE RECORDS SUMMARY | 2024-11-04 09:53 | XMS_ITS | Encounter Summary ---
[facility] Organization [facility] Address [address] [place] [id number] Care Team Providers Care Can Filling Room Sweeper Name Role Phone Columba Rodríguez APRN Primary Care Provider [phone] Reason for Visit * Reason Comments Med Refill Encounter Details Date Type Department Care Team (Late Contact Info) Description 09/01/2023 Refill [facility] PULMONARY & CRITICAL CARE MEDICINE [address] [place] [address] Isai Tran MD [address] [place] [address] Social History Tobacco Use Types Packs/Day Years [...] Description 12/13/2024 11:15 AM EDT Office Visit [facility] RHEUMATOLOGY [address] [place] [address] Cash Khanna DO [address] [facility] [address] [place], [place] [id number] documented as of this encounter Visit Diagnoses Not on filedocumented in this encounter Care Teams Can Filling Room Sweeper Relationship Specialty Start Date End Date Columba Rodríguez APRN [address] [place] [phone] PCP - General Family Medicine 11/10/23 documented as of this encounter
--- OUTSIDE RECORDS SUMMARY | 2024-11-04 09:53 | XMS_ITS | Encounter Summary ---
Author Organization [facility] ([place], [place], [place], [place]) Address [address] [place] [address] Care Team Providers Care Mid Level Business Analyst Name Role Phone Unavailable Primary Care Provider Unavailabl e Reason for Referral * Consultation (Routine) - Closed Specialty Diagnoses / Procedures Referred By Mitchell dela cruz Referred To Contact Neurology Diagnoses Seizure (HCC) Kirsten Gates [address] [place] [address] Phone: tel: Mac Leonard MD [address] [facility] [address] [place] [address] Phone: tel: fax: Referral ID Status Reason Start Date Expiration Date V isits Requested Visits Authorized [id number] Closed Specialty Services Required 01/03/2024 01/02/2025 1 1 Encounter Details Date Type Department Care Team (Late st Contact Info) Description 01/03/2024 Outside Orders [facility] Neurology [address] [facility] [address] [place] [address] KodyKirsten [place] [address] Seizure (HCC) (Primary Dx) Social History Tobacco [...]
--- OUTSIDE RECORDS SUMMARY | 2024-11-04 09:53 | XMS_ITS | Encounter Summary ---
Author Organization [employer] ([place], [place], [place], [place]) Address [address] [place] [address] Care Team Providers Care Special Projects Coordinator Name Role Phone Unavailable Primary Care Provider Unavailabl e Encounter Details Date Type Department Care Team (Late st Contact Info) Description 12/23/2020 Transcribed Document [facility] Family Medicine [address] [place] [address] ProviderJaime MD [address] [place] [address] Social History Tobacco Use Types Packs/Day Years Used Date Smoking Tobacco: Never Assessed Sex and Gender Information Value Date Recorded Sex Assigned at Not on file Legal Sex Male 5:28 PM CDT Gender Identity Not on file Sexual Orientation Not on file documented as of this encounter Miscellaneous Notes * Cerner Conversion Note - Jaime ProviderMD - 12/23/2020 1:22 [place] [address] AYLEEN BLACK III :1950 Visit Time:12/23/2020 What [...] then 6 days after surgery Community Services: [facility] Physical Therapy Home Health Services: [...] When 12/29/2020 09:45 AM EDT Where: [address] [facility] [address] [place] [address] Medications What How Much When Instructions Next [...] or 4 frozen water bottles in the [facility] CUBE. Continue to use Incentive Spirometer [...] Barley. Bulgur wheat. Millet. Bran muffins. Popcorn. Desha wafer crackers. Vegetables Sweet potatoes. Spinach. Kale. Artichokes. Cabbage. Broccoli. Green peas. Carrots. Squash. Fruits Berries. Pears. Apples. Oranges. Avocados. Prunes and raisins. Dried figs. Meats and Other Protein Sources [place], kidney, amador, and soy beans. Split peas. [...] 1 katy has 11 g of protein. [place] seeds ??? 1 oz has 5.5 g [...] the floor. Place frequently used items in blxp-ey-pqptg places Keep electrical cables out of the [...] ? Using the bathroom. ? Using household county commissioner or toxic chemicals. ? Touching or taking [...] activities are safe for you. ??? Take qxnp-dxd-cndbnde and prescription medicines only as told by [...] provider. Document Revised: 03/16/2018 Document Reviewed: 10/27/2017 [employer] Patient Education ?? 2020 [employer]. acetaminophen (oral) (a SEET a MIN oh fen) Actamin, Anacin AF, Aurophen, Bromo [place], Children's Tylenol, Mapap, M-Pap, Pharbetol, Silapap Childrens, [...] is a pain reliever and a fever landscape architect and planner. There are many brands and forms of [...] may report side effects to FDA at 5-311-ROE-4607. What other drugs will affect acetaminophen? Other drugs may affect acetaminophen, including prescription and uhwb-enk-qivmwbb medicines, vitamins, and herbal products. Tell your [...] to ensure that the information provided by [employer]') is accurate, up-to-date, and complete, but no guarantee is made to that effect. Drug information contained herein may be time sensitive. [employer] information has been compiled for use by healthcare practitioners and consumers in the [place] and therefore [employer] does not warrant that uses outside of the [place] are appropriate, unless specifically indicated otherwise. [employer]'s drug information does not endorse drugs, diagnose patients or recommend therapy. [facility] drug information is an informational resource designed [...] effective or appropriate for any given patient. [facility] does not assume any responsibility for any aspect of healthcare administered with the aid of information [facility] provides. The information contained herein is not intended to cover all possible uses, directions, precautions, warnings, drug interactions, allergic reactions, or adverse effects. If you have questions about the drugs you are taking, check with your doctor, nurse or pharmacist. Copyright 1473-2850 [facility] [employer]. Version: 21.. Revision Date: 11/01/2019. aspirin (oral) ( pir in) Arthritis Pain, Aspi-Cor, Aspir-Low, Nusrat Plus, Durlaza, Ecotrin, Miniprin, Vazalore What is the most important information I should know about aspirin? Aspirin can cause Tonia's syndrome, a serious and sometimes fatal condition in children. What is aspirin? Aspirin is a salicylate (hn-DQV-tn-ate) that is used to treat pain, and [...] may report side effects to FDA at 6-775-HBG-9207. What other drugs will affect aspirin? Ask [...] drugs may affect aspirin, including prescription and qxch-iln-qudkctj medicines, vitamins, and herbal products. Not all [...] to ensure that the information provided by [employer]') is accurate, up-to-date, and complete, but no guarantee is made to that effect. Drug information contained herein may be time sensitive. [employer] information has been compiled for use by healthcare practitioners and consumers in the [place] and therefore [employer] does not warrant that uses outside of the [place] are appropriate, unless specifically indicated otherwise. [employer] drug information does not endorse drugs, diagnose patients or recommend therapy. [employer] drug information is an informational resource designed [...] effective or appropriate for any given patient. [employer] does not assume any responsibility for any aspect of healthcare administered with the aid of information [facility] provides. The information contained herein is not intended to cover all possible uses, directions, precautions, warnings, drug interactions, allergic reactions, or adverse effects. If you have questions about the drugs you are taking, check with your doctor, nurse or pharmacist. Copyright 5843-7783 [employer] Version: 16.03. Revision Date: 09/21/2020. oxycodone (ox [...] The extended-release form of oxycodone is for epzfgb-wtk-ryoev treatment of pain and should not be [...] against the law. Stop taking all other tjygre-mik-ykixt opioid pain medicines when you start taking [...] may report side effects to FDA at 6-747-DIB-8256. What other drugs will affect oxycodone? You [...] may affect oxycodone. This includes prescription and fbkw-zpx-urgdquo medicines, vitamins, and herbal products. Not all [...] to ensure that the information provided by [employer]') is accurate, up-to-date, and complete, but no guarantee is made to that effect. Drug information contained herein may be time sensitive. [employer] information has been compiled for use by healthcare practitioners and consumers in the [place] and therefore [employer] does not warrant that uses outside of the [place] are appropriate, unless specifically indicated otherwise. [employer]'s drug information does not endorse drugs, diagnose patients or recommend therapy. [employer] drug information is an informational resource designed [...] effective or appropriate for any given patient. [employer] does not assume any responsibility for any aspect of healthcare administered with the aid of information [employer] provides. The information contained herein is not intended to cover all possible uses, directions, precautions, warnings, drug interactions, allergic reactions, or adverse effects. If you have questions about the drugs you are taking, check with your doctor, nurse or pharmacist. Copyright 8643-8269 [facility] [employer]. Version: 14.02. Revision Date: 04/23/2020. docusate (oral/rectal) [...] may report side effects to FDA at 9-476-VKC-2729. What other drugs will affect docusate? Other drugs may affect docusate, including prescription and emsv-kbj-rppofdv medicines, vitamins, and herbal products. Tell your [...] to ensure that the information provided by [employer]') is accurate, up-to-date, and complete, but no guarantee is made to that effect. Drug information contained herein may be time sensitive. [employer] information has been compiled for use by healthcare practitioners and consumers in the [place] and therefore [employer] does not warrant that uses outside of the [place] are appropriate, unless specifically indicated otherwise. [employer]'s drug information does not endorse drugs, diagnose patients or recommend therapy. [employer] drug information is an informational resource designed [...] effective or appropriate for any given patient. [employer] does not assume any responsibility for any aspect of healthcare administered with the aid of information [employer] provides. The information contained herein is not intended to cover all possible uses, directions, precautions, warnings, drug interactions, allergic reactions, or adverse effects. If you have questions about the drugs you are taking, check with your doctor, nurse or pharmacist. Copyright 7387-6753 [employer] Version: 4.01. Revision Date: 10/01/2018. cephalexin (sef [...] may report side effects to FDA at 4-560-LUY-5787. What other drugs will affect cephalexin? Tell your doctor about all your other medicines, especially: ?? metformin; or ?? probenecid. This list is not complete. Other drugs may affect cephalexin, including prescription and achy-sgj-ajecicc medicines, vitamins, and herbal products. Not all [...] to ensure that the information provided by [employer]') is accurate, up-to-date, and complete, but no guarantee is made to that effect. Drug information contained herein may be time sensitive. [employer] information has been compiled for use by healthcare practitioners and consumers in the [place] and therefore [employer] does not warrant that uses outside of the [place] are appropriate, unless specifically indicated otherwise. [employer] drug information does not endorse drugs, diagnose patients or recommend therapy. [employer] drug information is an informational resource designed [...] effective or appropriate for any given patient. [employer] does not assume any responsibility for any aspect of healthcare administered with the aid of information [employer] provides. The information contained herein is not intended to cover all possible uses, directions, precautions, warnings, drug interactions, allergic reactions, or adverse effects. If you have questions about the drugs you are taking, check with your doctor, nurse or pharmacist. Copyright 5824-2250 [employer] Version: 10.03. Revision Date: 03/30/2020. tramadol (TRAM [...]
--- OUTSIDE RECORDS SUMMARY | 2024-11-04 09:53 | XMS_ITS | Encounter Summary ---
Author Organization [employer] ([place], [place], [place], [place]) Address [address] [place] [address] Care Team Providers Care Test Deskman Name Role Phone Unavailable Primary Care Provider Unavailabl e Encounter Details Date Type Department Care Team (Late st Contact Info) Description 12/22/2020 Transcribed Document [facility] Family Medicine [facility] [place] [address] ProviderJaime MD [address] [place], [place] [id number] Social History Tobacco Use Types Packs/Day Years [...] in the [facility] CUBE. Continue to use Incentive Spirometer 10 [...] Barley. Bulgur wheat. Millet. Bran muffins. Popcorn. [place] wafer crackers. Vegetables Sweet potatoes. Spinach. Kale. Artichokes. Cabbage. Broccoli. Green peas. Carrots. Squash. Fruits Berries. Pears. Apples. Oranges. Avocados. Prunes and raisins. Dried figs. Meats and Other Protein Sources [place], kidney, amador, and soy beans. Split peas. [...] 1 katy has 11 g of protein. [place] seeds ??? 1 oz has 5.5 g [...] the floor. Place frequently used items in jtns-fv-rqsfv places Keep electrical cables out of the [...] ? Using the bathroom. ? Using household unemployment claims adjudicator or toxic chemicals. ? Touching or taking [...] activities are safe for you. ??? Take ezny-qix-gthkipk and prescription medicines only as told by [...] provider. Document Revised: 03/16/2018 Document Reviewed: 10/27/2017 [employer] Patient Education ? 2020 [employer] documented in this encounter Plan of Treatment Not on file documented as of this encounter Visit Diagnoses Not on filedocumented in this encounter
--- OUTSIDE RECORDS SUMMARY | 2024-11-04 09:53 | XMS_ITS | Encounter Summary ---
Author Organization [employer] ([place], [place], [place], [place]) Address [address] [place] [address] Care Team Providers Care Stripper Preliminary Name Role Phone Unavailable Primary Care Provider Unavailabl e Encounter Details Date Type Department Care Team (Late st Contact Info) Description 12/23/2020 Transcribed Document [facility] Family Medicine [facility] [address] ProviderJaime MD [address] [place] [address] Social History Tobacco Use Types Packs/Day [...] 12/23/2020 7:23 EDT Electronically signed by Lakesha, [facility] Conversion Looping Machine Operator Cerner at 07/09/2022 10:51 AM CDT documented in this encounter Plan of Treatment Not on file documented as of this encounter Visit Diagnoses Not on filedocumented in this encounter
--- OUTSIDE RECORDS SUMMARY | 2024-11-04 09:53 | XMS_ITS | Encounter Summary ---
[facility] Address [address] [place] [id number] Care Team Providers Care Law Instructor Name Role Phone Columba Rodríguez APRN Primary Care Provider [phone] Reason for Visit * Reason Comments Med Refill Encounter Details Date Type Department Care Team (Late st Contact Info) Description 10/18/2024 Refill [facility] RHEUMATOLOGY [address] [facility] [address] [place] [address] Adrianne Hdez APRN 330 [facility] 100 [place], [place] [id number] Social History Tobacco Use Types Packs/Day Years [...] Description 12/13/2024 11:15 AM EDT Office Visit [facility] RHEUMATOLOGY [address] [address] Cash Khanna DO [address] [address] documented as of this encounter Visit Diagnoses Not on filedocumented in this encounter Care Teams Law Instructor Relationship Specialty Start Date End Date Columba Rodríguez APRN [address] [place], [place] [phone] PCP - General Family Medicine 11/10/23 documented as of this encounter
--- OUTSIDE RECORDS SUMMARY | 2024-11-04 09:53 | XMS_ITS | Encounter Summary ---
Author Organization [employer] ([place], [place], [place], [place]) Address [address] [place] [address] Care Team Providers Care Aids Nurse Name Role Phone Unavailable Primary Care Provider Unavailabl e Encounter Details Date Type Department Care Team (Late st Contact Info) Description 12/23/2020 Transcribed Document [facility] Family Medicine [facility] [place] [address] ProviderJaime MD [address] [place] [id number] Social History Tobacco Use Types Packs/Day Years [...] Sent to Post Acute Providers : Yes [facility] Quality Web Info Shared w Pt/Fam [...]
--- OUTSIDE RECORDS SUMMARY | 2024-11-04 09:53 | XMS_ITS | Encounter Summary ---
Author Organization [employer] ([place], [place], [place], [place]) Address [address] [place] [address] Care Team Providers Care Call Circuit Worker Name Role Phone Unavailable Primary Care Provider Unavailabl e Encounter Details Date Type Department Care Team (Late st Contact Info) Description 12/23/2020 Transcribed Document [facility] [place] [address] ProviderJaime MD [address] [place] [id number] Social History Tobacco Use Types Packs/Day Years [...] EDT Chloraseptic Menthol 1.4% topical spray: 5 Johnson, Oral, Johnson, Q2H, PRN for Sore Throat, Routine, Start [...] Oral, Q4H phenol 1.4% throat spray 5 Johnson, Oral, Q2H promethazine 25 mg tab 12.5 [...] HTN, CAD and cancer Procedure history: Cholecystectomy (35680568). Hernia ([id number]). Rotator cuff right ([id number]). Knee left partial ([id number]). right upper thigh boil. lymph node drained from right arm pit. Colonoscopy ([id number]). EGD - Esophagogastroduodenoscopy ([id number]). heart cath. cardiac stent. Social History Patient [...] swelling, No deformity, Normal gait. Integumentary: Warm, [place], Intact, No pallor, No rash, WOUND STABLE. [...]
--- OUTSIDE RECORDS SUMMARY | 2024-11-04 09:53 | XMS_ITS | Encounter Summary ---
Author Organization [employer] ([place], [place], [place], [place]) Address [address] [place] [address] Care Team Providers Care Stem Lead Former Name Role Phone Unavailable Primary Care Provider Unavailabl e Encounter Details Date Type Department Care Team (Late st Contact Info) Description 12/23/2020 Transcribed Document [facility] Family Medicine [address] [place] [address] ProviderJaime MD [address] [place], [place] [id number] Social History Tobacco Use Types Packs/Day Years [...] III /Sex: 1950 Male Med Rec #: [id number] Physician: KAYLA ZIMMERMAN JR, JR, MD-ORT Financial #: [id number] Pt. Type: O Room/Bed: Admit/Disch: 12/23/20 04:16:00 - Institution: [facility] Main OR PostOp Case Times Entry 1 In PACU II 12/23/20 11:13:00 Ready for PACU II 12/23/20 13:49:00 Discharge Discharge from PACU 12/23/20 13:49:00 II Last Modified By: Rosa Montes RN 12/23/20 14:04:05 Finalized By: Rosa Montes, RN Document Signatures Signed By: Rosa Montes RN 12/23/20 14:04 Electronically signed by Lakesha [facility] Conversion Regional Ehs Manager Cerner at 07/09/2022 10:45 AM CDT documented in this encounter Plan of Treatment Not on file documented as of this encounter Visit Diagnoses Not on filedocumented in this encounter
--- OUTSIDE RECORDS SUMMARY | 2024-11-04 09:53 | XMS_ITS | Encounter Summary ---
Author Organization [employer] ([place], [place], [place], [place]) Address [address] [place] [address] Care Team Providers Care Customer Support Executive Name Role Phone Unavailable Primary Care Provider Unavailabl e Encounter Details Date Type Department Care Team (Late st Contact Info) Description 12/23/[address] [facility] Family Medicine [place] [address] ProviderJaime MD [facility] [place], [place] [address] Social History Tobacco Use Types Packs/Day Years [...] knee 12/23/2020 12:00 Atherosclerotic heart disease of bois forte coronary artery without angina pectoris 12/23/2020 12:00 [...] EDT Electronically signed by Adolph Crowder Conversion Bookkeeping Service Sales Agent Cerner at 07/09/2022 10:42 AM CDT documented in this encounter Plan of Treatment Not on file documented as of this encounter Visit Diagnoses Not on filedocumented in this encounter
--- OUTSIDE RECORDS SUMMARY | 2024-11-04 09:53 | XMS_ITS | Encounter Summary ---
Author Organization [employer] ([place], [place], [place], [place]) Address [address] [place] [address] Care Team Providers Care Ornamental Iron Worker Helper Name Role Phone Unavailable Primary Care Provider Unavailabl e Encounter Details Date Type Department Care Team (Late st Contact Info) Description 12/23/2020 Transcribed Document [facility] Family Medicine [address] [place] [address] ProviderJaime MD [address] [place], [place] [id number] Social History Tobacco Use Types Packs/Day Years [...] III /Sex: 1950 Male Med Rec #: [id number] Physician: KAYLA ZIMMERMAN JR, JR, MD-ORT Financial #: [id number] Pt. Type: O Room/Bed: Admit/Disch: 12/23/20 04:16:00 - Institution: [facility] OR PACU Case Times Entry 1 In PACU I 12/23/20 09:56:00 Ready for PACU 12/23/20 11:12:00 Discharge Discharge from PACU 12/23/20 11:12:00 I Last Modified By: Janene Helm RN 12/23/20 11:16:01 [facility] Main OR PACU Case Times Audit 12/23/20 11:16:01 Mucking Machine Operator: KINZA Modifier: KINZA 1 <*> Ready for PACU Discharge 12/23/20 10:30:00 1 <+> Discharge from PACU I Finalized By: Janene Helm RN Document Signatures Signed By: Janene Helm RN 12/23/20 11:16 documented in this encounter Plan of Treatment Not on file documented as of this encounter Visit Diagnoses Not on filedocumented in this encounter
--- OUTSIDE RECORDS SUMMARY | 2024-11-04 09:53 | XMS_ITS | Clinical Summary ---
Author Organization [facility] Address [address] [place] [address] Care Team Providers Care Professional Model Name Role Phone Columba Rodríguez APRN Primary Care Provider [phone] Allergies Active Allergy Reactions Criticality Noted Date [...] % ointment 12/06/19 23 Active nystatin (MYCOSTATIN) 751315 UNIT/GM cream 11/19/19 23 Active pioglitazone (ACTOS) [...] Active Cholecalcifero l (Vitamin D3) 1.25 MG (04632 UT) tablet Take 1 tablet by mouth [...] Type Department Care Team Description 10/18/2024 Refill [facility] RHEUMATOLOGY [address] [address] Adrianne Hdez APRN from Last [...] Description 12/13/2024 11:15 AM EDT Office Visit [facility] RHEUMATOLOGY 330 [facility] 100 [place] [address] Cash Khanna DO 330 [facility] [address] [place] [address] Health Maintenance Due Date Last [...] 022, 01/31/2019, 01/11/2018, Additional history exists Insurance [facility] Medicare [employer] PPO Care Teams Professional Model Relationship Specialty Start Date End Date Columba Rodríguez APRN [address] [place] [address] PCP - General Family Medicine 11/10/23
--- OUTSIDE RECORDS SUMMARY | 2024-11-04 09:53 | XMS_ITS | Encounter Summary ---
Author Organization [employer] ([place], [place], [place], [place]) Address [address] [place] [address] Care Team Providers Care Supervisor Process Testing Name Role Phone Unavailable Primary Care Provider Unavailabl e Encounter Details Date Type Department Care Team (Late st Contact Info) Description 12/23/2020 Transcribed Document [facility] [place] Family Medicine [address] [place] [address] ProviderJaime MD [address] [place] [address] Social History Tobacco Use Types [...] Source : Measured Height Entry Format : [place]hr Height, Feet : 5 ft(Converted to: 152 cm, 60 Inch) Height, Inches : 9 Inch(Converted to: 0 ft 9 Inch, 22.86 cm) Clinical Height : 175.26 cm Weight Source : Standing scale Weight Entry Format : [place]hr Clinical Dosing Weight : 96.36 kg Weight, Pounds : 212 lb Body Surface Area (BSA) : 2.12 m2 Body Mass Index : 31.4 kg/m2 (HI) [place] Body Weight : 70 kg Georgie Boyce [...] Georgie Boyce RN - 12/23/2020 6:56 EDT [place] Suicide Severity Rating Scale (C-SSRS) CSSRS Past [...] #2 Relationship : . Primary Language : Jamaican Preferred Communication Mode : Verbal Communication Barrier : None Electrical Design Engineer Needed : No Georgie Boyce RN - [...]
--- OUTSIDE RECORDS SUMMARY | 2024-11-04 09:53 | XMS_ITS | Clinical Summary ---
Author Organization Healthcare Address [address] [place] [address] Care Team Providers Care Bariatric Nurse Name Role Phone Markus Huang SENIOR SALES ADMINISTRATOR Primary Care Provider Allergies Active Allergy Reactions [...] Wellness (AWV) 1950 [facility]Y-Infant/Child/Adol SDOH Screenings 1950 [id number] Vaccine (#1) 1957 Diabetes: Dental Exam 1962 [...] Recently Relevant to Health Maintenance Results * [place] Hepatitis C Antibody (02/13/2019 6:35 PM EST) [place] Hepatitis C Ab NEGATIVE Reference Range: Negative SUNQUEST 02/13/2019 6:35 PM EST 02/13/2019 7:06 PM EST us Major Diaz MD LAB BLOOD ORDERABLES Final Re sult SUNQUEST from Last 3 Months or Most Recently Relevant to Health Maintenance Insurance [facility] MEDICARE Care Teams Bariatric Nurse Relationship Specialty Start Date End Date Markus Huang APRN [address] [place] [address] [place] [address] PCP - General 10/10/22
--- OUTSIDE RECORDS SUMMARY | 2024-11-04 09:53 | XMS_ITS | Encounter Summary ---
Author Organization [employer] ([place], [place], [place], [place]) Address [address] [place] [address] Care Team Providers Care Forging Machine Operator Name Role Phone Unavailable Primary Care Provider Unavailabl e Encounter Details Date Type Department Care Team (Late st Contact Info) Description 12/23/2020 Transcribed Document [facility] [place] Family Medicine [facility] [place] [address] ProviderJaime MD [address] [place], [place] [address] Social History Tobacco Use Types Packs/Day Years [...]
--- OUTSIDE RECORDS SUMMARY | 2024-11-04 09:53 | XMS_ITS | Encounter Summary ---
Author Organization [employer] ([place], [place], [place]) Address [address] [place] [address] Care Team Providers Care Extruder Tender Name Role Phone Unavailable Primary Care Provider Unavailabl e Encounter Details Date Type Department Care Team (Late st Contact Info) Description 12/23/2020 Transcribed Document [facility] [place] Family Medicine [address] [place] [address] ProviderJaime MD [address] [place], [place] [id number] Social History Tobacco Use Types Packs/Day Years [...] III /Sex: 1950 Male Med Rec #: [id number] Physician: KAYLA ZIMMERMAN JR, JR, MD-ORT Financial #: [id number] Pt. Type: O Room/Bed: Admit/Disch: 12/23/20 04:16:00 - [place] [facility] [place]Op Case Times Entry 1 In Preop 12/23/20 05:15:00 Ready for Holding n/a Room Patient Ready for 12/23/20 06:42:00 Surgery Patient Out of Preop 12/23/20 07:50:00 Patient Out of n/a Holding Room Last Modified By: Aden Boyce RN 12/23/20 07:46:17 [facility] PreOp Case Times Audit 12/23/20 07:46:17 Power Generation Plant Operator: BLANKDanny Modifier: ADENVERNADanny <+> 1 Patient Out of Preop Finalized By: Aden Boyce, RN Document Signatures Signed By: Aden Boyce RN 12/23/20 07:46 documented in this encounter Plan of Treatment Not on file documented as of this encounter Visit Diagnoses Not on filedocumented in this encounter
--- OUTSIDE RECORDS SUMMARY | 2024-11-04 09:53 | XMS_ITS | Encounter Summary ---
Author Organization [employer] ([place], [place], [place], [place]) Address [address] [place] [address] Care Team Providers Care Oracle Business Analyst Name Role Phone Unavailable Primary Care Provider Unavailabl e Encounter Details Date Type Department Care Team (Late st Contact Info) Description 12/23/2020 Transcribed Document [facility] Family Medicine [address] [place] [address] ProviderJaime MD [address], [place] [id number] Social History Tobacco Use Types Packs/Day Years [...] knee 12/23/2020 12:00 Atherosclerotic heart disease of [place] coronary artery without angina pectoris 12/23/2020 12:00 [...] EDT Electronically signed by Adolph Crowder Conversion Supervisor Drilling And Shooting Cerner at 07/09/2022 10:50 AM CDT documented in this encounter Plan of Treatment Not on file documented as of this encounter Visit Diagnoses Not on filedocumented in this encounter
--- OUTSIDE RECORDS SUMMARY | 2024-11-04 09:53 | XMS_ITS | Encounter Summary ---
Author Organization [employer] ([place], [place], [place], [place]) Address [address] [place] [address] Care Team Providers Care Bed Worker Name Role Phone Unavailable Primary Care Provider Unavailabl e Encounter Details Date Type Department Care Team (Late st Contact Info) Description 12/23/2020 Transcribed Document [facility] [place] Family [place] [facility] [place] [address] ProviderJaime MD [address] [place] [id number] Social History Tobacco Use Types Packs/Day Years [...]
--- OUTSIDE RECORDS SUMMARY | 2024-11-04 09:53 | XMS_ITS | Encounter Summary ---
Author Organization [employer] ([place], [place], [place], [place]) Address [address] [place] [address] Care Team Providers Care Thread Clipper Name Role Phone Unavailable Primary Care Provider Unavailabl e Encounter Details Date Type Department Care Team (Late st Contact Info) Description 12/23/2020 Transcribed Document [facility] [place] Family Medicine [address] [place] [address] ProviderJaime MD [address] [place], [place] [address]881 Social History Tobacco Use Types Packs/Day Years [...] : Yes Discharge To Care Management : Home/Residential/Usp or Self Care -01 ANGELA NGUYEN RN [...]
== END 2024-10-31 23:59 | disposition home or self-care (01) ==
LOC: LAB.DROPOF 11-04 09:47
PROVIDERS: PCP Nurse Practitioner; Visit Provider Nurse Practitioner
DX: J42 Unspecified chronic bronchitis (principal); J20.9 Acute bronchitis, unspecified; R79.89 Other specified abnormal findings of blood chemistry
CPT/HCPCS: 71275; Q9967

== ENCOUNTER 2024-10-31 11:15 | Day surgery (SDC) | payer MEDICARE, SELFPAY ==
[2024-10-31] VITALS (10 sets, daily range): BP systolic 90–140; BP diastolic 56–78; PULSE 59–83; RESP 18–20; TEMP 36.6–36.7; O2SAT 94–97; BMI 30.5
--- NOTE | 2024-10-31 08:19 | IR_ITS ---
APPROVED REPORT Patient Location: Outpatient Gauge And Weigh Machine Adjuster: Baldemar Licea, RT (R) PROCEDURES Selective coronary angiogram Intravascular ultrasound to the left main artery LAD and circumflex artery INDICATION Coronary artery disease, Recalcitrant angina pectoris Informed consent was obtained prior to the procedure. COMPLICATIONS None Estimated Blood Loss: Less than 10 mls TECHNIQUE One percent lidocaine used to anesthetize the right anterior aspect of the wrist. The right radial artery was accessed via the Seldinger technique. A 6 Upper Sorbian sheath was placed in the right radial artery. 2.5 mg of Verapamil, 800 mcg of nitroglycerin, 1mg Lidocaine and 5000 U Heparin were given through the arterial sheath. The JL3 catheter was also used to perform left heart catheterization, left ventriculogram and selective coronary angiogram. At the end of the procedure the sheath was removed good hemostasis was achieved using Traclet band, patient was transferred to the postop holding area in stable condition. ANGIOGRAPHIC RESULTS The left main artery Has a stent in the ostial segment which extends throughout is widely patent free of in-stent restenosis The left anterior descending artery Has a stent originating from the left main artery which has 2 layers of stents with the most inner layer widely patent with minimal in-stent restenosis The circumflex artery Large and dominant with an ostial 90% in-stent restenotic lesion. This gives rise to a medium sized ramus intermedius which has an ostial greater than 90% stenosis and accompanied by ZARINA I flow The right coronary artery Vestigial and normal The DALTON ventriculogram reveals Not performed The left ventricular end-diastolic pressure Not measured IMPRESSION Severe to critical in-stent restenosis within the ostial dominant circumflex artery which also extends into a medium size ramus intermedius Patent left main artery and LAD stent PLAN 1. Refer to CT surgery [facility] given the multiple layers of stents in the circumflex artery and LAD. 2. Patient clearly would benefit from grafting to the ramus intermedius and circumflex artery. There remains a dilemma on revascularization options for the LAD. Currently the LAD is widely patent however the stent was placed in July of 2024 and the possibility for in-stent restenosis still exists 3. Refer to Dr. Gibbs at [facility] Electronically signed by : Shay Biggs MD 10/31/2024 14:57:59
[2024-10-31 12:07] LABS: D-Dimer 2.59 ug/mL (0.0-0.5)
[2024-10-31] MEDS: ONDANSETRON 4MG/2ML VIAL 4 MG IV (12:50)
[2024-10-31] MEDS: VERAPAMIL 2.5MG/ML 2ML VIAL 2.5 MG IV (14:05)
[2024-10-31] MEDS: HEPARIN 1,000 UNITS/ML 10ML VIAL (CATH LAB) 5000 UNIT IV (14:05)
[2024-10-31] MEDS: NITROGLYCERIN 800MCG/8ML SYR (CATH LAB) 800 MCG IA (14:05)
[2024-10-31] MEDS: LIDOCAINE 1% 10ML MDV 10 ML IJ (14:05)
[2024-10-31] MEDS: 0.9 % SODIUM CHLORIDE 500 ML 25 ML IV (14:05)
[2024-10-31] MEDS: HEPARIN 1,000 UNITS/500ML NS (CATH LAB) 3000 UNIT IV (14:05)
[2024-10-31] MEDS: MIDAZOLAM HCL 1MG/ML 5ML VIAL 1 MG IV (14:06)
[2024-10-31] MEDS: FENTANYL 100MCG/2ML VIAL 50 MCG IV (14:06)
[2024-10-31] MEDS: IOPAMIDOL-370 (76%);100ML BOTTLE 30 ML IV (15:08)
--- NOTE | 2024-10-31 16:16 | SUR.PHASEII ---
PT GONE TO CT AT THIS TIME.
--- NOTE | 2024-10-31 16:29 | SUR.PHASEII ---
PT RETURNED FROM CT
== END 2024-10-31 16:50 | disposition home or self-care (01) ==
PROVIDERS: PCP Family Medicine; Visit Provider Internal Medicine
PROC: 4A023N7 Measurement of Cardiac Sampling and Pressure, Left Heart, Percutaneous Approach (ICD-10-PCS; CPT 93452; principal; 2024-10-31 12:15)
DX: I25.118 Atherosclerotic heart disease of native coronary artery with other forms of angina pectoris (principal); R06.09 Other forms of dyspnea; I48.3 Typical atrial flutter; E78.2 Mixed hyperlipidemia; I48.92 Unspecified atrial flutter; E11.9 Type 2 diabetes mellitus without complications; N28.89 Other specified disorders of kidney and ureter; I25.2 Old myocardial infarction; Z22.7 Latent tuberculosis; Z95.5 Presence of coronary angioplasty implant and graft; Z96.651 Presence of right artificial knee joint; Z79.01 Long term (current) use of anticoagulants; Z79.85 Long-term (current) use of injectable non-insulin antidiabetic drugs; Z79.84 Long term (current) use of oral hypoglycemic drugs; Z79.02 Long term (current) use of antithrombotics/antiplatelets; Z79.899 Other long term (current) drug therapy; Z88.0 Allergy status to penicillin
CPT/HCPCS: 85378; 93454; 99152; C1725; C1769; J1200; J1644; J2405; J3010; J7040; Q9967

== ENCOUNTER 2024-11-04 08:40 | Day surgery (SDC) | payer MEDICARE, SELFPAY ==
[2024-11-04] VITALS (11 sets, daily range): BP systolic 113–153; BP diastolic 58–92; PULSE 54–83; RESP 16–20; O2SAT 94–100; BMI 30.4
--- NOTE | 2024-11-04 07:01 | IR_ITS ---
APPROVED REPORT Patient Location: Outpatient PROCEDURES Angioplasty of the circumflex artery Angioplasty of the left anterior descending artery Angioplasty of the left main artery Intravascular ultrasound of the circumflex artery, LAD, and left main artery INDICATION Coronary artery disease, In-stent restenosis, Patient deemed a nonsurgical candidate, IVUS guidance for complex intervention Informed consent was obtained prior to the procedure. COMPLICATIONS NONE Estimated Blood Loss: LESS THAN 10 ML TECHNIQUE One percent lidocaine used to anesthetize the right anterior aspect of the wrist. The right radial artery was accessed via the Seldinger technique. A 6 East Timorese sheath was placed in the right radial artery. 2.5 mg of Verapamil, 800 mcg of nitroglycerin, 1mg Lidocaine and 5000 U Heparin were given through the arterial sheath. The JL3 catheter was used to engage the left main artery followed by a Choice PT extra-support wire placed down the LAD and the circumflex artery. Therapeutic heparin had already been administered. A 4 mm x 15 mm noncompliant balloon was deployed at 24 prakash in the proximal circumflex artery. Intravascular ultrasound probe was advanced which demonstrated there was still under sizing or lack of appropriate deployment in the ostial segment. A 5 mm x 12 mm noncompliant balloon was then placed in the left main artery stenting the circumflex artery deployed at 24 prakash. Intravascular ultrasound probe demonstrated significant improvement. At this point the wire was placed into the LAD and intravascular sound probe demonstrated poor expansion of the ostial segment. A 4 mm x 12 mm noncompliant balloon was deployed at 24 prakash in the distal left main artery extending into the LAD. Excellent angiographic results were obtained. At the end the procedure the apparatus was removed the sheath was removed good hemostasis was achieved using TR banding patient was transferred to the postop putting in stable condition IMPRESSION Successful POBA of the left main artery extending to the ostial proximal circumflex artery Successful POBA of the left main artery extending into the ostial proximal LAD Intravascular ultrasound interrogation to the left main artery circumflex artery and LAD PLAN 1. Continue dual antiplatelet therapy 2. Cardiac rehabilitation 3. Risk factor modification 4. Avoidance of tobacco products Electronically signed by : Shay Biggs MD 11/04/2024 12:25:59
[2024-11-04] MEDS: CLOPIDOGREL 75MG TAB 75 MG PO (09:29)
[2024-11-04 09:34] LABS: Hematocrit 34.4 % (42.0-52.0); Hemoglobin 10.5 g/dL (14.1-18.0); Immature Granulocytes % 0.8 %; Mean Corpuscular HGB Conc 30.5 g/dL (31.8-35.4); Mean Corpuscular Hemoglobin 23.6 pg (27.0-31.2); Mean Corpuscular Volume 77.3 fl (80-94); Nucleated Red Blood Cells % 0 %; Platelet Count 350 K/mm3 (142-424); Red Blood Count 4.45 M/mm3 (4.60-6.20); Red Cell Distribution Width-SD 40.6 fL; White Blood Count 6.0 K/mm3 (4.8-10.8)
[2024-11-04 09:42] LABS: Chloride 99 mmol/L (98-107); Potassium 4.6 mmoL/L (3.5-5.1); Sodium 135 mmol/L (136-145)
[2024-11-04 09:45] LABS: Anion Gap 14.6 mEq/L (5-15); Blood Urea Nitrogen 18 mg/dl (9-20); Carbon Dioxide 26 mmol/L (22.0-30.0); Creatinine Clearance Estimated 66 mL/min (50-200); Creatinine,Serum 1.30 mg/dl (0.66-1.25); Estimated Glomerular Filt Rate 54 ml/min (>60); GFR (African American) 66 ML/MIN (>60); Glucose 279 mg/dl (74-100)
[2024-11-04 09:46] LABS: Calcium 9.1 mg/dl (8.4-10.2)
[2024-11-04] MEDS: NITROGLYCERIN 800MCG/8ML SYR (CATH LAB) 800 MCG IA (11:42)
[2024-11-04] MEDS: HEPARIN 1,000 UNITS/500ML NS (CATH LAB) 3000 UNIT IV (11:42)
[2024-11-04] MEDS: HEPARIN 1,000 UNITS/ML 10ML VIAL (CATH LAB) 5000 UNIT IV (11:43)
[2024-11-04] MEDS: VERAPAMIL 2.5MG/ML 2ML VIAL 2.5 MG IV (11:43)
[2024-11-04] MEDS: 0.9 % SODIUM CHLORIDE 500 ML 25 ML IV (11:43)
[2024-11-04] MEDS: LIDOCAINE 1% 10ML MDV 10 ML IJ (11:43)
[2024-11-04] MEDS: MIDAZOLAM HCL 1MG/ML 5ML VIAL 1 MG IV (11:44)
[2024-11-04] MEDS: FENTANYL 100MCG/2ML VIAL 50 MCG IV (11:44)
[2024-11-04 14:13] LABS: CATHL Activated Clotting Time > 400 SEC (74-125)
== END 2024-11-04 14:52 | disposition home or self-care (01) ==
LOC: CATHLAB 08:40
PROVIDERS: PCP Family Medicine; Visit Provider Internal Medicine
PROC: 4A023N7 Measurement of Cardiac Sampling and Pressure, Left Heart, Percutaneous Approach (ICD-10-PCS; CPT 93452; principal; 2024-11-04 09:45)
DX: I25.118 Atherosclerotic heart disease of native coronary artery with other forms of angina pectoris (principal); T82.855A Stenosis of coronary artery stent, initial encounter; R94.31 Abnormal electrocardiogram [ECG] [EKG]; I48.92 Unspecified atrial flutter; R06.09 Other forms of dyspnea; E11.9 Type 2 diabetes mellitus without complications; E78.2 Mixed hyperlipidemia; N28.89 Other specified disorders of kidney and ureter; I25.2 Old myocardial infarction; E66.9 Obesity, unspecified; Z68.30 Body mass index [BMI] 30.0-30.9, adult; Z22.7 Latent tuberculosis; Z95.5 Presence of coronary angioplasty implant and graft; Z96.651 Presence of right artificial knee joint; Z79.84 Long term (current) use of oral hypoglycemic drugs; Z79.85 Long-term (current) use of injectable non-insulin antidiabetic drugs; Z79.02 Long term (current) use of antithrombotics/antiplatelets; Z79.01 Long term (current) use of anticoagulants; Z79.899 Other long term (current) drug therapy; Z88.0 Allergy status to penicillin; Y84.8 Other medical procedures as the cause of abnormal reaction of the patient, or of later complication, without mention of misadventure at the time of the procedure
CPT/HCPCS: 80048; 85025; 85347; 92920; 92928; 92978; 92979; 99152; 99153; C1725; C1769; C9600; J1200; J1644; J2003; J3010; J7040

== ENCOUNTER 2024-11-06 10:21 | Outpatient (CLI) | payer MEDICARE, SELFPAY ==
--- OUTSIDE RECORDS SUMMARY | 2024-11-06 10:26 | XMS_ITS | Encounter Summary ---
Author Organization [employer] ([place], [place], [place], [place]) Address [address] [place] [address] Care Team Providers Care Strategic Account Manager Name Role Phone Unavailable Primary Care Provider Unavailabl e Encounter Details Date Type Department Care Team (Late st Contact Info) Description 12/08/2020 Transcribed Document [facility] [place] Family Medicine [address] [place] [address] ProviderJaime MD [address] [place], [place] [address] Social History Tobacco Use Types Packs/Day Years [...] Health Plan: [employer] MEDICARE REPL Policy Number: [id number] Authorization Number: Insurance Primary Name : [employer] MEDICARE REPL Policy Number: [id number] Authorization Status-Primary : Opo status approv Authorized Service Begin Date-Primary : 12/16/2020 EDT Observation Authorization Nbr-Primary : [id number] Authorization Comments-Primary : [employer] Medicare approved for outpt per availity Historical Authorization Comments-Primary : No Authorization Comments Found ROLANDO TABARES RN-Utilization Review - 12/08/2020 15:21 EDT Electronically signed by Lakesha [facility] Conversion Vice President Regulatory Cerner at 07/09/2022 10:42 AM CDT documented in this encounter Plan of Treatment Not on file documented as of this encounter Visit Diagnoses Not on filedocumented in this encounter
--- OUTSIDE RECORDS SUMMARY | 2024-11-06 10:26 | XMS_ITS | Encounter Summary ---
Author Organization [employer] ([place], [place], [place], [place]) Address [address] [place] [address] Care Team Providers Care Photoengraving Finisher Name Role Phone Unavailable Primary Care Provider Unavailabl e Encounter Details Date Type Department Care Team (Late st Contact Info) Description 12/09/2020 Transcribed Document [facility] [address] [place] [address] ProviderJaime MD [address] [place], [place] [id number] Social History Tobacco Use Types Packs/Day Years [...] : Standing scale Weight Entry Format : [place] Clinical Dosing Weight : 95.91 kg Weight, Pounds : 211 lb Body Surface Area (BSA) : 2.12 m2 Body Mass Index : 31.2 kg/m2 (HI) [place] Body Weight : 70 kg Michaela Alvarez Rn - 12/09/2020 16:02 EDT Height Source : Stated Height Entry Format : [place] Michaela Alvarez Rn - 12/09/2020 15:57 EDT [...] Michaela Alvarez Rn - 12/09/2020 16:02 EDT [place] Suicide Severity Rating Scale (C-SSRS) CSSRS Past [...] Obtained From : Patient Primary Language : Croatian Preferred Communication Mode : Verbal Communication Barrier : None Blow Molder Needed : No Michaela Alvarez Rn - [...] EDT Electronically signed by Adolph Crowder Conversion Lead Business Systems Analyst Cerner at 07/09/2022 10:37 AM CDT documented in this encounter Plan of Treatment Not on file documented as of this encounter Visit Diagnoses Not on filedocumented in this encounter
--- OUTSIDE RECORDS SUMMARY | 2024-11-06 10:26 | XMS_ITS | Clinical Summary ---
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 R76.12 (ICD-10-CM ) 09/18 Active 09/18 Imelda Bunny 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 gamma interferon antigen response without active tuberculosis Edema, limb 728874635 (SNOMED CT) 09/21 Resolved 09/21 Imelda Hollis Edema of extremity Right Leg Edema, limb 935652796 (SNOMED CT) 09/21 Removed 09/21 Jer Zhang [...] DAY 2 THROUGH DAY 5 12/19 azithromycin 21912575462 Cinda Rolando BENZONATATE 100 MG CAPS Take 1 capsule by mouth three times a day as needed 12/19 BENZONATATE Cinda Fu TRIAZOLAM 0.25 MG TABS Take 1 tablet by mouth 12/19 triazolam 77545056196 Cinda Fu LORAZEPAM 1 MG TABS Take 1 tablet 12/19 lorazepam 28751378954 Cinda Fu LEVOFLOXACIN 750 MG TABS Take 1 tablet by mouth once a day 12/19 levofloxacin 52962467760 Cinda Rolando LOSARTAN POTASSIUM 50 MG TABS one tab oral daily 12/19 losartan 84150951083 Cinda Rolando NYSTATIN 445344 UNIT/GM OINT Apply to skin once a day 12/19 nystatin 24743035098 Cinda Fu RIFAMPIN 300 MG CAPS Take 2 by mouth once a day 12/19 rifampin 62510448196 Cinda Rolando CYCLOBENZAPRINE HCL 5 MG TABS one tab oral daily 12/19 cyclobenzaprine 42011651283 Cinda Fu ISONIAZID 300 MG TABS Take 1 tablet by mouth once a day 12/19 isoniazid 72099928420 Cinda PROMETHAZINE-CODEI NE 6.25-10 MG/5ML SYRP Take 5 ml by mouth twice a day 12/19 promethazine-code ine 48198715298 Cinda Fu DICYCLOMINE HCL 10 MG CAPS 1 cap oral twice a day 12/19 dicyclomine 18374470717 Cinda Fu CLOPIDOGREL BISULFATE 75 MG TABS Take 1 tablet by mouth once a day 12/19 clopidogrel 20741873825 Cinda Marshall HYDROCOD POLST-CPM POLST ER 10-8 MG/5ML ORAL SUSPENSION EXTENDED RELEASE Take 1 teaspoon by mouth twice a day 12/19 HYDROCOD POLST-CPM POLST ER 10-8 MG/5ML ORAL SUSPENSION EXTENDED RELEASE Cinda Marshall PLAVIX 75 MG TABS once a day clopidogrel 2561752 7190 Cinda Marshall TRIAZOLAM 0.25 MG TABS Take 1 tablet by mouth 09/24 triazolam 20567603712 Melvin Hartman ISONIAZID 300 MG TABS Take 1 tablet by mouth once a day 12/19 isoniazid 08561850387 Melvin Hartman CLOPIDOGREL BISULFATE 75 MG TABS Take 1 tablet by mouth once a day 12/19 clopidogrel 24297607219 Melvin Hartman LORAZEPAM 1 MG TABS Take 1 tablet 12/19 lorazepam 73714122988 Melvin Hartman NYSTATIN 837958 UNIT/GM OINT Apply to skin once a day 12/19 nystatin 03310995816 Melvin Hartman HYDROCOD POLST-CPM POLST ER 10-8 MG/5ML ORAL SUSPENSION EXTENDED RELEASE Take 1 teaspoon by mouth twice a day 12/19 HYDROCOD POLST-CPM POLST ER 10-8 MG/5ML ORAL SUSPENSION EXTENDED RELEASE Melvin Hartman AZITHROMYCIN 250 MG TABS TAKE 2 TABLETS BY MOUTH ON DAY 1 AND THEN TAKE 1 TABLET BY MOUTH ONCE A DAY ON DAY 2 THROUGH DAY 5 09/24 azithromycin 26400567911 Melvin Hartman RIFAMPIN 300 MG CAPS Take 2 by mouth once a day 09/24 rifampin 70939517150 Melvin Hartman PROMETHAZINE-CODEI NE 6.25-10 MG/5ML SYRP Take 5 ml by mouth twice a day 05/09 promethazine-code ine 51622596967 Melvin Hartman BENZONATATE 100 MG CAPS Take 1 capsule by mouth three times a day as needed 12/19 BENZONATATE Melvin Hartman LEVOFLOXACIN 750 MG TABS Take 1 tablet by mouth once a day 12/19 levofloxacin 31036298944 Melvin Hartman DICYCLOMINE HCL 10 MG CAPS 1 cap oral twice a day 09/24 dicyclomine 31460576333 Melvin Hartman SIMVASTATIN 20 MG TABS one tab oral daily simvastatin 46930175563 Melvin Hartman LOSARTAN POTASSIUM 50 MG TABS one tab oral daily 09/24 losartan 00540583824 Melvin Hartman CYCLOBENZAPRINE HCL 5 MG TABS one tab oral daily 09/24 cyclobenzaprine 55881305062 Melvin Hartman TRAMADOL HCL 50 MG TABS one tab every 6 hours prn tramadol 58075573581 Melvin Hartman METFORMIN HCL 500 MG TABS one tab oral twice a day metformin 42197060103 Melvin Hartman RIFAMPIN 300 MG CAPS take 2 po daily 09/24 RIFAMPIN 14821057345 Jer Zhang MD ISONIAZID 300 MG TABS Take 1 tablet by mouth daily 12/16 ISONIAZID 66793612480 Jer Zhang MD AZITHROMYCIN 250 MG TABS TAKE 2 TABLETS BY MOUTH ON DAY 1 AND THEN TAKE 1 TABLET BY MOUTH ONCE A DAY ON DAY 2 THROUGH DAY 5 09/24 AZITHROMYCIN 52556929822 Gerald Ocasio BENZONATATE 100 MG CAPS TAKE 1 CAPSULE BY MOUTH THREE TIMES DAILY FOR 10 DAYS NEEDED FOR COUGH 12/16 BENZONATATE 86664457047 Gerald Ocasio PROMETHAZINE-CODEI NE 6.25-10 MG/5ML SOLN TAKE 5 ML BY MOUTH TWICE DAILY 12/16 PROMETHAZINE-CODE INE 74758967709 Gerald Ocasio LEVOFLOXACIN 750 MG TABS TAKE 1 TABLET BY MOUTH ONCE DAILY FOR 8 DAYS 12/16 LEVOFLOXACIN 73797432630 Gerald Ocasio CLOPIDOGREL BISULFATE 75 MG TABS TAKE 1 TABLET BY MOUTH ONCE DAILY 12/16 CLOPIDOGREL BISULFATE 68815596245 Gerald D NYSTATIN 947869 UNIT/GM OINT APPLY OINTMENT TOPICALLY ONCE DAILY 12/16 NYSTATIN 74444278130 Gerald D HYDROCOD POLST-CPM POLST ER 10-8 MG/5ML ORAL SUSPENSION EXTENDED RELEASE TAKE 1 TEASPOONFUL (5 ML) BY MOUTH TWICE DAILY MAY CAUSE DROWSINESS 12/16 HYDROCOD POLST-CHLORPHEN POLST 96948941002 Gerald D TRIAZOLAM 0.25 MG TABS TAKE 1 TABLET BY MOUTH 30 MINUTES PRIOR TO MRI ON 09/24 TRIAZOLAM 35169235055 Gerald D LORAZEPAM 1 MG TABS TAKE 1 TABLET 2 HOURS BEFORE MRI FOR ANXIETY 12/16 LORAZEPAM 93106079731 Gerald D Medications Administered No information available. 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
--- OUTSIDE RECORDS SUMMARY | 2024-11-06 10:26 | XMS_ITS | Encounter Summary ---
Author Organization [employer] ([place], [place], [place], [place]) Address [address] [place] [address] Care Team Providers Care Merchandise Processor Name Role Phone Unavailable Primary Care Provider Unavailabl e Encounter Details Date Type Department Care Team (Late st Contact Info) Description 12/09/2020 Transcribed Document [facility] [place] [address] [place] [address] ProviderJaime MD [address] [place], [place] [address] Social History Tobacco Use Types Packs/Day Years [...] EDT Electronically signed by Adolph Crowder Conversion Client Resolution Specialist Cerner at 07/09/2022 10:45 AM CDT documented in this encounter Plan of Treatment Not on file documented as of this encounter Visit Diagnoses Not on filedocumented in this encounter
--- OUTSIDE RECORDS SUMMARY | 2024-11-06 10:27 | XMS_ITS | Encounter Summary ---
Author Organization [employer] ([place], [place], [place], [place]) Address [address] [place] [address] Care Team Providers Care Director Financial Planning Name Role Phone Unavailable Primary Care Provider Unavailabl e Encounter Details Date Type Department Care Team (Late st Contact Info) Description 12/22/2020 Transcribed Document [facility] [place] Family Medicine [facility] [address] ProviderJaime MD [address] [place], [place] [id number] Social History Tobacco Use Types Packs/Day Years [...] or 4 frozen water bottles in the [facility] CUBE. Continue to use Incentive Spirometer [...] Barley. Bulgur wheat. Millet. Bran muffins. Popcorn. [place] wafer crackers. Vegetables Sweet potatoes. Spinach. Kale. Artichokes. Cabbage. Broccoli. Green peas. Carrots. Squash. Fruits Berries. Pears. Apples. Oranges. Avocados. Prunes and raisins. Dried figs. Meats and Other Protein Sources [place], kidney, amador, and soy beans. Split peas. [...] 1 katy has 11 g of protein. Bacon seeds ??? 1 oz has 5.5 g [...] the floor. Place frequently used items in svzk-dr-fgdqn places Keep electrical cables out of the [...] ? Using the bathroom. ? Using household drafter chief design or toxic chemicals. ? Touching or taking [...] activities are safe for you. ??? Take jyml-itk-iaolmnp and prescription medicines only as told by [...] provider. Document Revised: 03/16/2018 Document Reviewed: 10/27/2017 [employer] Patient Education ? 2020 [employer] documented in this encounter Plan of Treatment Not on file documented as of this encounter Visit Diagnoses Not on filedocumented in this encounter
--- OUTSIDE RECORDS SUMMARY | 2024-11-06 10:27 | XMS_ITS | Clinical Summary ---
Author Organization [facility] Address [address] [place] [address] Care Team Providers Care Car Carder Name Role Phone Columba Rodríguez URSULA Primary Care Provider [phone] Shay Biggs MD Unavailable [phone] Allergies Active Allergy Reactions Criticality Noted Date Comments Penicillins Itching,Unknown - Pa tient states they do not know rxn details [...] 2 11/05/2018 Essential hypertension 11/05/2018 Microalbuminuria 10/08/2018 Encounters Date Type Department Care Team Description 11/04/2024 Telephone [facility] [address], [address] [place] [address] Baldemar Gibbs MD from Last 3 Months Immunizations Immunization Administration Dates Next Due Influenza, [...] [facility]-Depression Screening 1950 [facility]-Diabetes: Hemoglobin A1C 1950 [facility]-Medicare Annual Wellness (AWV) 1950 [facility]-Infant/Child/Adol SDOH Screenings 1950 [id number] Vaccine (#1) 1957 Diabetes: Dental Exam 1962 [...] Recently Relevant to Health Maintenance Results * [place] Hepatitis C Antibody (02/13/2019 6:35 PM EST) [place] Hepatitis C Ab NEGATIVE Reference Range: Negative SUNQUEST 02/13/2019 6:35 PM EST 02/13/2019 7:06 PM EST us Major Diaz MD LAB BLOOD ORDERABLES Final Re sult SUNQUEST from Last 3 Months or Most Recently Relevant to Health Maintenance Insurance Care Teams Car Carder Relationship Specialty Start Date End Date Columba Rodríguez APRN [address] [place] [address] PCP - General 11/04/24 Shay Biggs MD [address] [facility] [address] [place] [address] Referring Physician Cardiology 11/04/24
--- OUTSIDE RECORDS SUMMARY | 2024-11-06 10:27 | XMS_ITS | Encounter Summary ---
Author Organization [employer] ([place], [place], [place], [place]) Address [address] [place] [address] Care Team Providers Care Feller Seam Operator Name Role Phone Unavailable Primary Care Provider Unavailabl e Encounter Details Date Type Department Care Team (Late st Contact Info) Description 12/23/2020 Transcribed Document [facility] [place] Family Medicine [address] [place] [address] ProviderJaime MD [address] [place], [place] [id number] Social History Tobacco Use Types Packs/Day Years [...]
--- OUTSIDE RECORDS SUMMARY | 2024-11-06 10:27 | XMS_ITS | Referral Summary ---
Author Organization [employer] ([place], [place], [place], [place]) Address [address] [place], [place] [address] Care Team Providers Care Manager Beauty Name Role Phone Unavailable Primary Care Provider [...] Date Milton rded Speak language other than Bengali at home Not on file 01/23/2024 Want [...] Plan of Treatment Not on file Insurance [facility] MEDICARE ADVANTAGE
--- OUTSIDE RECORDS SUMMARY | 2024-11-06 10:27 | XMS_ITS | Encounter Summary ---
Author Organization [employer] ([place], [place], [place], [place]) Address [address] [place] [address] Care Team Providers Care Quality Assurance Tech Name Role Phone Unavailable Primary Care Provider Unavailabl e Encounter Details Date Type Department Care Team (Late st Contact Info) Description 12/23/2020 Transcribed Document [facility] Family Medicine [address] [place] [address] ProviderJaime MD [address] [place] [address] Social History Tobacco Use Types Packs/Day Years Used Date Smoking Tobacco: Never Assessed Sex and Gender Information Value Date Recorded Sex Assigned at Not on file Legal Sex Male 5:28 PM CDT Gender Identity Not on file Sexual Orientation Not on file documented as of this encounter Miscellaneous Notes * Cerner Conversion Note - Jaime ProviderMD - 12/23/2020 1:22 [place] [address] AYLEEN BLACK III :1950 Visit Time:12/23/2020 What [...] then 6 days after surgery Community Services: [facility] Home Health Services: [...] When 12/29/2020 09:45 AM EDT Where: [address] [facility] [address] [place] [address] Medications What How Much When Instructions Next [...] or 4 frozen water bottles in the [facility] CUBE. Continue to use Incentive Spirometer [...] Barley. Bulgur wheat. Millet. Bran muffins. Popcorn. [place] wafer crackers. Vegetables Sweet potatoes. Spinach. Kale. Artichokes. Cabbage. Broccoli. Green peas. Carrots. Squash. Fruits Berries. Pears. Apples. Oranges. Avocados. Prunes and raisins. Dried figs. Meats and Other Protein Sources [place], kidney, amador, and soy beans. Split peas. [...] 1 katy has 11 g of protein. [place] seeds ??? 1 oz has 5.5 g [...] the floor. Place frequently used items in xljd-af-lxalu places Keep electrical cables out of the [...] ? Using the bathroom. ? Using household bilingual spanish inbound sales or toxic chemicals. ? Touching or taking [...] activities are safe for you. ??? Take cagr-jvc-jbgkyzb and prescription medicines only as told by [...] provider. Document Revised: 03/16/2018 Document Reviewed: 10/27/2017 [employer] Patient Education ?? 2020 FiNC. acetaminophen (oral) (a SEET a MIN oh fen) Actamin, Anacin AF, Aurophen, Bromo [place], Children's Tylenol, Mapap, M-Pap, Pharbetol, Silapap Childrens, [...] is a pain reliever and a fever telecommunications professional. There are many brands and forms of [...] may report side effects to FDA at 2-418-AJT-9804. What other drugs will affect acetaminophen? Other drugs may affect acetaminophen, including prescription and nkwa-ejn-ycedqph medicines, vitamins, and herbal products. Tell your [...] to ensure that the information provided by [employer]. ('Multum') is accurate, up-to-date, and complete, but no guarantee is made to that effect. Drug information contained herein may be time sensitive. eCaring information has been compiled for use by healthcare practitioners and consumers in the [place] and therefore [employer]Caring does not warrant that uses outside of the [place] are appropriate, unless specifically indicated otherwise. eCaring's drug information does not endorse drugs, diagnose patients or recommend therapy. [facility] drug information is an informational resource designed [...] for any given patient. [facility] does not assume any responsibility for any aspect of healthcare administered with the aid of information [facility] provides. The information contained herein is not intended to cover all possible uses, directions, precautions, warnings, drug interactions, allergic reactions, or adverse effects. If you have questions about the drugs you are taking, check with your doctor, nurse or pharmacist. Copyright 4994-8387 [facility]480 [employer]. Version: 21.. Revision Date: 11/01/2019. aspirin (oral) ( pir in) Arthritis Pain, Aspi-Cor, Aspir-Low, Nusrat Plus, Durlaza, Ecotrin, Miniprin, Vazalore What is the most important information I should know about aspirin? Aspirin can cause Tonia's syndrome, a serious and sometimes fatal condition in children. What is aspirin? Aspirin is a salicylate (bj-CEW-rv-ate) that is used to treat pain, and [...] may report side effects to FDA at 5-657-MNI-7624. What other drugs will affect aspirin? Ask [...] drugs may affect aspirin, including prescription and ekno-rtm-nolvodz medicines, vitamins, and herbal products. Not all [...] to ensure that the information provided by [employer]. ('Multum') is accurate, up-to-date, and complete, but no guarantee is made to that effect. Drug information contained herein may be time sensitive. [employer]Caring information has been compiled for use by healthcare practitioners and consumers in the [place] and therefore [employer]Caring does not warrant that uses outside of the [place] are appropriate, unless specifically indicated otherwise. [employer] drug information does not endorse drugs, diagnose patients or recommend therapy. [employer] drug information is an informational resource designed [...] effective or appropriate for any given patient. [employer] does not assume any responsibility for any aspect of healthcare administered with the aid of information [facility] provides. The information contained herein is not intended to cover all possible uses, directions, precautions, warnings, drug interactions, allergic reactions, or adverse effects. If you have questions about the drugs you are taking, check with your doctor, nurse or pharmacist. Copyright 5033-5014 [employer]. Version: 16.03. Revision Date: 09/21/2020. oxycodone (ox [...] The extended-release form of oxycodone is for acwljd-vkl-qifrh treatment of pain and should not be [...] against the law. Stop taking all other vjmsmd-uzy-tuspf opioid pain medicines when you start taking [...] may report side effects to FDA at 0-399-TKW-5969. What other drugs will affect oxycodone? You [...] may affect oxycodone. This includes prescription and bhuo-wys-zqabwvd medicines, vitamins, and herbal products. Not all [...] to ensure that the information provided by [employer]. ('Multum') is accurate, up-to-date, and complete, but no guarantee is made to that effect. Drug information contained herein may be time sensitive. eCaring information has been compiled for use by healthcare practitioners and consumers in the [place] and therefore eCaring does not warrant that uses outside of the [place] are appropriate, unless specifically indicated otherwise. eCaring's drug information does not endorse drugs, diagnose patients or recommend therapy. [employer] drug information is an informational resource designed [...] effective or appropriate for any given patient. [place] does not assume any responsibility for any aspect of healthcare administered with the aid of information [employer]aring provides. The information contained herein is not intended to cover all possible uses, directions, precautions, warnings, drug interactions, allergic reactions, or adverse effects. If you have questions about the drugs you are taking, check with your doctor, nurse or pharmacist. Copyright 7591-3109 [facility] [employer]. Version: 14.02. Revision Date: 04/23/2020. docusate (oral/rectal) [...] may report side effects to FDA at 1-742-GKF-1633. What other drugs will affect docusate? Other drugs may affect docusate, including prescription and eqfb-oty-chkhiwy medicines, vitamins, and herbal products. Tell your [...] to ensure that the information provided by [employer]. ('Multum') is accurate, up-to-date, and complete, but no guarantee is made to that effect. Drug information contained herein may be time sensitive. eCaring information has been compiled for use by healthcare practitioners and consumers in the [place] and therefore eCaring does not warrant that uses outside of the [place] are appropriate, unless specifically indicated otherwise. eCaring's drug information does not endorse drugs, diagnose patients or recommend therapy. [employer] drug information is an informational resource designed [...] effective or appropriate for any given patient. [employer] does not assume any responsibility for any aspect of healthcare administered with the aid of information [employer] provides. The information contained herein is not intended to cover all possible uses, directions, precautions, warnings, drug interactions, allergic reactions, or adverse effects. If you have questions about the drugs you are taking, check with your doctor, nurse or pharmacist. Copyright 6149-7169 [employer]. Version: 4.01. Revision Date: 10/01/2018. cephalexin (sef [...] may report side effects to FDA at 7-262-OVZ-5635. What other drugs will affect cephalexin? Tell your doctor about all your other medicines, especially: ?? metformin; or ?? probenecid. This list is not complete. Other drugs may affect cephalexin, including prescription and gpqm-dmr-mqdugnd medicines, vitamins, and herbal products. Not all [...] to ensure that the information provided by [employer]ounder. ('Multum') is accurate, up-to-date, and complete, but no guarantee is made to that effect. Drug information contained herein may be time sensitive. eCaring information has been compiled for use by healthcare practitioners and consumers in the [place] and therefore eCaring does not warrant that uses outside of the [place] are appropriate, unless specifically indicated otherwise. Priv[employer] drug information does not endorse drugs, diagnose patients or recommend therapy. [employer] drug information is an informational resource designed [...] effective or appropriate for any given patient. [employer] does not assume any responsibility for any aspect of healthcare administered with the aid of information eCaring provides. The information contained herein is not intended to cover all possible uses, directions, precautions, warnings, drug interactions, allergic reactions, or adverse effects. If you have questions about the drugs you are taking, check with your doctor, nurse or pharmacist. Copyright 2369-5976 [employer]. Version: 10.03. Revision Date: 03/30/2020. tramadol (TRAM [...]
--- OUTSIDE RECORDS SUMMARY | 2024-11-06 10:27 | XMS_ITS | Clinical Summary ---
Author Organization [facility] Address [address] [place] [address] Care Team Providers Care B2B Managed Service Sales Exec Name Role Phone Columba Rodríguez APRN Primary Care Provider [phone] Allergies Active Allergy Reactions Criticality Noted Date [...] % ointment 12/06/19 23 Active nystatin (MYCOSTATIN) 660413 UNIT/GM cream 11/19/19 23 Active pioglitazone (ACTOS) [...] Active Cholecalcifero l (Vitamin D3) 1.25 MG (06182 UT) tablet Take 1 tablet by mouth [...] Type Department Care Team Description 10/18/2024 Refill [facility] [address] [address] Adrianne Hdez APRN from Last [...] Description 12/13/2024 11:15 AM EDT Office Visit [facility] [address] [facility] [address] [place] [address] Cash Khanna DO [address] [facility] [address] [place] [address] Health Maintenance Due Date Last [...] 022, 01/31/2019, 01/11/2018, Additional history exists Insurance [facility] [employer] PPO Care Teams B2B Managed Service Sales Exec Relationship Specialty Start Date End Date Columba Rodríguez APRN [address] [place] [address] PCP - General Family Medicine 11/10/23
--- OUTSIDE RECORDS SUMMARY | 2024-11-06 10:27 | XMS_ITS | Encounter Summary ---
Author Organization [employer] ([place], [place], [place], [place]) Address [address] [place] [address] Care Team Providers Care Valve Mechanic Name Role Phone Unavailable Primary Care Provider Unavailabl e Encounter Details Date Type Department Care Team (Late st Contact Info) Description 12/09/2020 Transcribed Document [facility] Family Medicine [facility] [place] [address] ProviderJaime MD [address] [place] [address] [id number] Social History Tobacco Use Types Packs/Day Years [...] Appearance CLEAR2 12/09/2020 16:01 EDT Urine Specific [place] *1.026 12/09/2020 16:01 EDT Urine pH Dipstick [...]
--- OUTSIDE RECORDS SUMMARY | 2024-11-06 10:27 | XMS_ITS | Encounter Summary ---
Author Organization [employer] ([place], [place], [place], [place]) Address [address] [place] [address] Care Team Providers Care Tamping Machine Operator Name Role Phone Unavailable Primary Care Provider Unavailabl e Encounter Details Date Type Department Care Team (Late st Contact Info) Description 12/23/2020 Transcribed Document [facility] [place] [facility] [place] [address] ProviderJaime MD [address] [place] [phone] Social History Tobacco Use Types Packs/Day Years [...] EDT Chloraseptic Menthol 1.4% topical spray: 5 [place], Oral, [place], Q2H, PRN for Sore Throat, Routine, Start [...] Oral, Q4H phenol 1.4% throat spray 5 [place], Oral, Q2H promethazine 25 mg tab 12.5 [...] HTN, CAD and cancer Procedure history: Cholecystectomy (06258984). Hernia ([id number]). Rotator cuff right (17404396). Knee left partial (412351672). right upper thigh boil. lymph node drained from right arm pit. Colonoscopy (649789236). EGD - Esophagogastroduodenoscopy ([id number]). heart cath. cardiac stent. Social History Patient [...] swelling, No deformity, Normal gait. Integumentary: Warm, [place], Intact, No pallor, No rash, WOUND STABLE. [...] then you may give Tylenol 650 mg PO/MS x 1. If no response in 2 [...]
--- OUTSIDE RECORDS SUMMARY | 2024-11-06 10:27 | XMS_ITS | Encounter Summary ---
Author Organization [employer] ([place], [place], [place], [place]) Address [address] [place] [address] Care Team Providers Care Garage Manager Name Role Phone Unavailable Primary Care Provider Unavailabl e Encounter Details Date Type Department Care Team (Late st Contact Info) Description 12/23/2020 Transcribed Document [facility] [place] Medicine [address] [place] [address] ProviderJaime MD [address] [place], [place] [phone] Social History Tobacco Use Types Packs/Day Years [...] knee 12/23/2020 12:00 Atherosclerotic heart disease of [place] coronary artery without angina pectoris 12/23/2020 12:00 [...]
--- OUTSIDE RECORDS SUMMARY | 2024-11-06 10:27 | XMS_ITS | Encounter Summary ---
Author Organization [employer] ([place], [place], [place], [place]) Address [address] [place] [address] Care Team Providers Care Veneer Glue Spreader Name Role Phone Unavailable Primary Care Provider Unavailabl e Encounter Details Date Type Department Care Team (Late st Contact Info) Description 12/23/2020 Transcribed Document [facility] [place] [address] [place] [address] ProviderJaime MD [address] [place], [place] [phone] Social History Tobacco Use Types Packs/Day Years [...] III /Sex: 1950 Male Med Rec #: [id number] Physician: KAYLA ZIMMERMAN JR, JR, MD-ORT Financial #: [id number] Pt. Type: O Room/Bed: Admit/Disch: 12/23/20 04:16:00 - Institution: [facility] [place] PreOp Case Times Entry 1 In Preop 12/23/20 05:15:00 Ready for Holding n/a Room Patient Ready for 12/23/20 06:42:00 Surgery Patient Out of Preop 12/23/20 07:50:00 Patient Out of n/a Holding Room Last Modified By: Aden Boyce RN 12/23/20 07:46:17 [facility] PreOp Case Times Audit 12/23/20 07:46:17 [place] Agent: [email or web address] Modifier: [email or web address] <+> 1 Patient Out of Preop Finalized By: Aden Boyce, RN Document Signatures Signed By: Aden Boyce RN 12/23/20 07:46 documented in this encounter Plan of Treatment Not on file documented as of this encounter Visit Diagnoses Not on filedocumented in this encounter
--- OUTSIDE RECORDS SUMMARY | 2024-11-06 10:27 | XMS_ITS | Encounter Summary ---
Author Organization [employer] ([place], [place], [place], [place]) Address [address] [place] [address] Care Team Providers Care Cadmium Plater Name Role Phone Unavailable Primary Care Provider Unavailabl e Encounter Details Date Type Department Care Team (Late st Contact Info) Description 12/23/2020 Transcribed Document [facility] Family Medicine [address] [place] [address] ProviderJaime MD [address] [place], [place] [phone] Social History Tobacco Use Types Packs/Day Years [...]
--- OUTSIDE RECORDS SUMMARY | 2024-11-06 10:27 | XMS_ITS | Encounter Summary ---
Author Organization [employer] ([place], [place], [place], [place]) Address [address] [place] [address] Care Team Providers Care Mallet Cutter Name Role Phone Unavailable Primary Care Provider Unavailabl e Encounter Details Date Type Department Care Team (Late st Contact Info) Description 12/23/2020 Transcribed Document [facility] [place] [address] [place] [address] ProviderJaime MD [address] [place] [address] Social History Tobacco Use Types [...] Source : Measured Height Entry Format : [place] Height, Feet : 5 ft(Converted to: 152 cm, 60 Inch) Height, Inches : 9 Inch(Converted to: 0 ft 9 Inch, 22.86 cm) Clinical Height : 175.26 cm Weight Source : Standing scale Weight Entry Format : [place] Clinical Dosing Weight : 96.36 kg Weight, Pounds : 212 lb Body Surface Area (BSA) : 2.12 m2 Body Mass Index : 31.4 kg/m2 (HI) [place] Body Weight : 70 kg Georgie Boyce [...] Georgie Boyce RN - 12/23/2020 6:56 EDT [place] Suicide Severity Rating Scale (C-SSRS) CSSRS Past [...] #2 Relationship : . Primary Language : Bruneian Preferred Communication Mode : Verbal Communication Barrier : None Automatic Brine Mixer Operator Needed : No Georgie Boyce RN [...]
--- OUTSIDE RECORDS SUMMARY | 2024-11-06 10:27 | XMS_ITS | Encounter Summary ---
[facility] Address [address] [place] [id number] Care Team Providers Care Cosmetic Maker Name Role Phone Columba Rodríguez APRN Primary Care Provider [phone] Reason for Visit * Reason Comments Med Refill Encounter Details Date Type Department Care Team (Late Contact Info) Description 09/01/2023 Refill [facility] [address] [place] [address] Isai Tran MD [address] [place] [address] Social History Tobacco Use Types Packs/Day Years [...] Description 12/13/2024 11:15 AM EDT Office Visit [facility] [address] [place] [address] Cash Khanna DO [address] [facility] [address] [place], [place] [phone] documented as of this encounter Visit Diagnoses Not on filedocumented in this encounter Care Teams Cosmetic Maker Relationship Specialty Start Date End Date Columba Rodríguez APRN [address] [place] [phone] PCP - General Family Medicine 11/10/23 documented as of this encounter
--- OUTSIDE RECORDS SUMMARY | 2024-11-06 10:27 | XMS_ITS | Encounter Summary ---
Author Organization [employer] ([place], [place], [place], [place]) Address [address] [place] [address] Care Team Providers Care Bottom Turner Name Role Phone Unavailable Primary Care Provider Unavailabl e Encounter Details Date Type Department Care Team (Late st Contact Info) Description 12/23/2020 Transcribed Document [facility] [place] [address] [place] [address] ProviderJaime MD [address] [place], [place] [phone] Social History Tobacco Use Types Packs/Day Years [...] III /Sex: 1950 Male Med Rec #: [id number] Physician: KAYLA ZIMMERMAN JR, JR, MD-ORT Financial #: [id number] Pt. Type: O Room/Bed: Admit/Disch: 12/23/20 04:16:00 - [place] [facility] [place] PostOp Case Times Entry 1 In PACU II 12/23/20 11:13:00 Ready for PACU II 12/23/20 13:49:00 Discharge Discharge from PACU 12/23/20 13:49:00 II Last Modified By: Rosa Montes RN 12/23/20 14:04:05 Finalized By: Rosa Montes, RN Document Signatures Signed By: Rosa Montes RN 12/23/20 14:04 Electronically signed by Lakesha [facility] Conversion Phlebotomy Supervisor Cerner at 07/09/2022 10:45 AM CDT documented in this encounter Plan of Treatment Not on file documented as of this encounter Visit Diagnoses Not on filedocumented in this encounter
--- OUTSIDE RECORDS SUMMARY | 2024-11-06 10:27 | XMS_ITS | Encounter Summary ---
Author Organization [employer] ([place], [place], [place], [place]) Address [address] [place] [address] Care Team Providers Care Customer Service Advisor Name Role Phone Unavailable Primary Care Provider Unavailabl e Encounter Details Date Type Department Care Team (Late st Contact Info) Description 12/16/2020 Transcribed Document [facility] Medicine [address] [place] [address] ProviderJaime MD [address] [place], [place] [phone] Social History Tobacco Use Types Packs/Day Years [...] Source : Stated Height Entry Format : [place] Height, Feet : 5 ft(Converted to: 152 cm, 60 Inch) Height, Inches : 9 Inch(Converted to: 0 ft 9 Inch, 22.86 cm) Clinical Height : 175.26 cm Weight Source : Standing scale Weight Entry Format : [place] Clinical Dosing Weight : 96.93 kg Weight, Pounds : 213 lb Weight, Ounces : 4 oz Body Surface Area (BSA) : 2.12 m2 Body Mass Index : 31.6 kg/m2 (HI) [place] Body Weight : 70 kg CIARA WOODS [...] Spiritual/Cultural Needs or Requests : No CIARA WOOSD RN - 12/16/2020 6:51 EDT [place] Suicide Severity Rating Scale (C-SSRS) CSSRS Past [...] Obtained From : Patient Primary Language : Norwegian Preferred Communication Mode : Verbal Communication Barrier : None Network Operations Center Engineer Needed : No CIARA WOODS RN - 12/16/2020 6:51 EDT Yang Scale Yang Sensory Perception : No impairment Yang Moisture : Rarely moist Yang Activity : Walks frequently Ayng Mobility : Slightly limited Yang Nutrition : [...]
--- OUTSIDE RECORDS SUMMARY | 2024-11-06 10:27 | XMS_ITS | Encounter Summary ---
Author Organization [facility] ([place], [place], [place], [place]) Address [address] [place] [address] Care Team Providers Care Driver'S Education Instructor Name Role Phone Unavailable Primary Care Provider Unavailabl e Reason for Referral * Consultation (Routine) - Closed Specialty Diagnoses / Procedures Referred By Mitchell dela cruz Referred To Contact Neurology Diagnoses Seizure (HCC) Kirsten Gates [address] [place] [address] Phone: tel: Mac Leonard MD [address] [facility] [address] [place] [address] Phone: tel: fax: Referral ID Status Reason Start Date Expiration Date V isits Requested Visits Authorized [id number] Closed Specialty Services Required 01/03/2024 01/02/2025 1 1 Encounter Details Date Type Department Care Team (Late st Contact Info) Description 01/03/2024 Outside Orders [facility] Neurology [address] [facility] [facility] [address] [place] [address] [address] [place] [address] Seizure (HCC) (Primary Dx) Social History Tobacco [...]
--- OUTSIDE RECORDS SUMMARY | 2024-11-06 10:27 | XMS_ITS | Encounter Summary ---
Author Organization [employer] ([place], [place], [place], [place]) Address [address] [place] [address] Care Team Providers Care In Store Representative Name Role Phone Unavailable Primary Care Provider Unavailabl e Encounter Details Date Type Department Care Team (Late st Contact Info) Description 12/24/2020 Transcribed Document [facility] [place] [place] [address] ProviderJiame MD [address] [place] [id number] Social History Tobacco Use Types Packs/Day Years [...] right total knee replacement, final condition improved. /[id number] MD ARO Gibbs Jr/DIANNA / RAO / MODL /[id number] documented in this encounter Plan of Treatment Not on file documented as of this encounter Visit Diagnoses Not on filedocumented in this encounter
--- OUTSIDE RECORDS SUMMARY | 2024-11-06 10:27 | XMS_ITS | Encounter Summary ---
Author Organization [employer] ([place], [place], [place], [place]) Address [address] [place] [address] Care Team Providers Care It Engineer Name Role Phone Unavailable Primary Care Provider Unavailabl e Encounter Details Date Type Department Care Team (Late st Contact Info) Description 12/23/2020 Transcribed Document [facility] [place] [facility] [place] [address] ProviderJaime MD [address] [place] [address] [id number] Social History Tobacco Use Types Packs/Day Years [...]
--- OUTSIDE RECORDS SUMMARY | 2024-11-06 10:27 | XMS_ITS | Encounter Summary ---
Author Organization [employer] ([place], [place], [place], [place]) Address [address] [place] [address] Care Team Providers Care Tool And Die Designer Name Role Phone Unavailable Primary Care Provider Unavailabl e Encounter Details Date Type Department Care Team (Late st Contact Info) Description 12/23/2020 Transcribed Document [facility] [place] [facility] [place] [address] ProviderJaime MD [address] [place], [place] [id number] Social History Tobacco Use Types Packs/Day Years [...]
--- OUTSIDE RECORDS SUMMARY | 2024-11-06 10:27 | XMS_ITS | Encounter Summary ---
Author Organization [employer] ([place], [place], [place], [place]) Address [address] [place] [address] Care Team Providers Care Feather Drying Machine Operator Name Role Phone Unavailable Primary Care Provider Unavailabl e Encounter Details Date Type Department Care Team (Late st Contact Info) Description 12/23/2020 Transcribed Document [facility] [place] Family Medicine [address] [place] [address] ProviderJaime MD [address] [place], [place] [id number] Social History Tobacco Use Types Packs/Day Years [...] III /Sex: 1950 Male Med Rec #: [id number] Physician: KAYLA ZIMMERMAN JR, JR, MD-ORT Financial #: [id number] Pt. Type: O Room/Bed: Admit/Disch: 12/23/20 04:16:00 - Institution: [facility] OR PACU Case Times Entry 1 In PACU I 12/23/20 09:56:00 Ready for PACU 12/23/20 11:12:00 Discharge Discharge from PACU 12/23/20 11:12:00 I Last Modified By: Janene Helm RN 12/23/20 11:16:01 [facility] Main OR PACU Case Times Audit 12/23/20 11:16:01 Rn Vascular: KINZA Modifier: KINZA 1 <*> Ready for PACU Discharge 12/23/20 10:30:00 1 <+> Discharge from PACU I Finalized By: Janene Helm RN Document Signatures Signed By: Janene Helm RN 12/23/20 11:16 Electronically signed by Pedro Crowder Conversion Commercial Construction Project Manager Cerner at 07/09/2022 10:49 AM CDT documented in this encounter Plan of Treatment Not on file documented as of this encounter Visit Diagnoses Not on filedocumented in this encounter
--- OUTSIDE RECORDS SUMMARY | 2024-11-06 10:27 | XMS_ITS | Encounter Summary ---
Author Organization [employer] ([place], [place], [place], [place]) Address [address] [place] [address] Care Team Providers Care Rn Triage Name Role Phone Unavailable Primary Care Provider Unavailabl e Encounter Details Date Type Department Care Team (Late st Contact Info) Description 12/23/2020 Transcribed Document [facility] [place] Medicine [facility] [place] [address] ProviderJaime MD [address] [place], [place] [id number] Social History Tobacco Use Types Packs/Day Years [...] III /Sex: 1950 Male Med Rec #: [id number] Physician: KAYLA ZIMMERMAN JR, JR, MD-ORT Financial #: [id number] Pt. Type: O Room/Bed: Admit/Disch: 12/23/20 04:16:00 - Institution: [facility] [place] Case Attendance Entry 1 Entry 2 Entry 3 Case Attendee KAYLA ZIMMERMAN JR, JR, TARA MERA APRN,HAYDER KOROMA, LUCIE CHANCEORT Role Performed Surgeon/Proceduralist, UTILITY FORESTER/Nurse Staffing Executive Registered Vascular Technologist (Rvt), First First Time In 12/23/20 07:51:00 12/23/20 [...] 5 Entry 6 Case Attendee Stephan Boyce, PIPE CAULKER/GAMBLING FLOOR SUPERVISOR GET ARIAS ST Peel, Polly, Scub Tech Role Performed Tobacco Grower, First Scrub, First Scrub, Second Time In [...] Case Attendee OTHER, ATTENDEE #1 NGOZI PETTY, UTILITY FORESTER Role Performed Vendor UTILITY FORESTER/Nurse Staffing Executive Time In 12/23/20 07:51:00 12/23/20 08:29:00 Time Out 12/23/20 09:55:00 12/23/20 08:41:00 Procedure Knee Total Joint Knee Total Joint Replacement Replacement Other Attendee FOREST [place]UR[place] UTILITY FORESTER BREAK Superficial Wound Closed By: Thom Modified By: HAYDER EASON RN LONGSWORTH, GARY, LUCIE 12/23/20 07:19:17 12/23/20 08:29:30 [facility] IntraOp Case Attendance Audit 12/23/20 09:55:23 Senior Infrastructure Architect: LONGGA Modifier: LONGGA 1 <+> Time Out [...] Procedure Knee Total Joint Replacement 12/23/20 08:48:55 Senior Infrastructure Architect: LONGGA Modifier: LONGGA 8 <+> Time Out 8 <*> Procedure Knee Total Joint Replacement 12/23/20 08:29:30 Senior Infrastructure Architect: LONGGA Modifier: LONGGA <+> 8 Case Attendee <+> 8 Role Performed <+> 8 Time In <+> 8 Procedure <+> 8 Other Attendee 12/23/20 08:25:18 Senior Infrastructure Architect: LONGGA Modifier: LONGGA 1 <+> Time In [...] Procedure Knee Total Joint Replacement 12/23/20 07:25:50 Senior Infrastructure Architect: LONGGA Modifier: LONGGA <+> 1 Procedure 2 [...] [facility] IntraOp Case Times Audit 12/23/20 09:55:21 Senior Infrastructure Architect: LONGGA Modifier: LONGGA <+> 1 Out Room Time <+> 1 Stop Time <+> 1 Stop Time 12/23/20 08:21:13 Senior Infrastructure Architect: LONGGA Modifier: LONGGA <+> 1 Start Time [...] [facility] IntraOp Counts Verification Audit 12/23/20 09:01:12 Senior Infrastructure Architect: LONGGA Modifier: LONGGA <+> 2 Procedure <+> [...] HAYDER EASON, LUCIE, Accompanied by TARA MERA APRN,UTILITY FORESTER Last Modified By: HAYDER EASON RN 12/23/20 09:08:10 [facility] IntraOp Dressing and Packing Entry 1 Type Dressing Location RIGHT KNEE Wound Dressing Item Papo Supplemental Limb immobilizer, Cold Applications pack Applied By Stephan Boyce, PIPE CAULKER/GAMBLING FLOOR SUPERVISOR Other Comments JONATHAN WOUND DRESSING Last Modified [...] RN 12/23/20 07:24:40 [facility] IntraOp General Case Metallic Yarn Slitting Machine Operator 1 Case Information OR OR 02 [facility] Case Level 1 Room Verified Yes Wound Class I - Clean Specialty Orthopedic Anesthesia Type General ASA Class 3 Diagnosis Preop Diagnosis DEGENERATIVE JOINT DISEASE, RIGHT KNEE Postop Same As Preop Yes Postop Diagnosis DEGENERATIVE JOINT DISEASE, RIGHT KNEE Last Modified By: HAYDER EASON RN 12/23/20 08:27:58 [facility] IntraOp General Case Data Audit 12/23/20 08:27:58 Senior Infrastructure Architect: YVETTE Modifier: LONGGA 1 <*> OR OR [...] PATELLA ITOTAL JIGS CR ITOTAL ID Identification [id number] Description Implant Quantity 2 1 1 Implant Site RIGHT KNEE RIGHT KNEE RIGHT KNEE Implant Identification Model Number Implant [id number] Identification Serial Number Implant [id number] Identification Lot Number Implant Burdett:Burdett Conformis Conformis Identification Orthopaedics Personal Fitness Manager Name: Implant [id number] Identification Catalog Number Implant Size Implant Has an Yes Yes Yes Expiration Date Implant Expiration 01/24/22 09/23/22 12/24/21 Date Wasted Radioactive Material Time Implanted Tissue Implant Continue for Tissue Implant Documentation Tissue Identification Number Graft Prep Per Personal Fitness Manager Instructions: Tissue Preparation Method: Reconstitution Solution: Reconstitution Solution Lot Number Reconstitution Solution Expiration Date: Thawing Solution Thawing Solution Lot Number Thawing Solution Expiration Date Preparation Materials, Other Preparation Materials, Other Lot Number Preparation Materials, Other Expiration Date Tissue Prepared/Processed By Personal Fitness Manager Paperwork Completed Implant Type Comment Last Modified [...] KT CR FULL ITOTAL ID Identification KLEVER [id number] Description Implant Quantity 1 1 1 Implant Site RIGHT KNEE RIGHT KNEE RIGHT KNEE Implant Identification Model Number Implant [id number] Identification Serial Number Implant Identification Lot Number Implant Conformis Conformis Conformis Identification Personal Fitness Manager Name: Implant [id number] Identification Catalog Number Implant Size Implant Has an Yes Yes Yes Expiration Date Implant Expiration 12/24/21 12/24/21 12/24/21 Date Wasted Radioactive Material Time Implanted Tissue Implant Continue for Tissue Implant Documentation Tissue Identification Number Graft Prep Per Personal Fitness Manager Instructions: Tissue Preparation Method: Reconstitution Solution: Reconstitution Solution Lot Number Reconstitution Solution Expiration Date: Thawing Solution Thawing Solution Lot Number Thawing Solution Expiration Date Preparation Materials, Other Preparation Materials, Other Lot Number Preparation Materials, Other Expiration Date Tissue Prepared/Processed By Personal Fitness Manager Paperwork Completed Implant Type Comment Last Modified By: HAYDER EASON RN LONGSWORTH, GARY, RN LONGSWORTH, GARY, RN 12/23/20 08:49:46 12/23/20 08:51:06 12/23/20 08:52:02 [facility] IntraOp Implant Log Audit 12/23/20 08:52:02 Senior Infrastructure Architect: LONGGA Modifier: LONGGA <+> 6 Implant Identification Description <+> 6 Implant Identification Serial Number <+> 6 Implant Identification Personal Fitness Manager Name: <+> 6 Implant Expiration Date <+> 6 Implant Site <+> 6 Implant Quantity <+> 6 Implant Identification Catalog Number <+> 6 Implant Type <+> 6 Implant Has an Expiration Date <+> 6 Type 12/23/20 08:51:06 Senior Infrastructure Architect: LONGGA Modifier: LONGGA <+> 5 Implant Identification Description <+> 5 Implant Identification Serial Number <+> 5 Implant Identification Personal Fitness Manager Name: <+> 5 Implant Expiration Date <+> 5 Implant Site <+> 5 Implant Quantity <+> 5 Implant Identification Catalog Number <+> 5 Implant Type <+> 5 Implant Has an Expiration Date <+> 5 Type 12/23/20 08:49:46 Senior Infrastructure Architect: LONGGA Modifier: LONGGA <+> 4 Implant Identification Description <+> 4 Implant Identification Serial Number <+> 4 Implant Identification Personal Fitness Manager Name: <+> 4 Implant Expiration Date <+> 4 Implant Site <+> 4 Implant Quantity <+> 4 Implant Identification Catalog Number <+> 4 Implant Type <+> 4 Implant Has an Expiration Date <+> 4 Type 12/23/20 08:48:24 Senior Infrastructure Architect: LONGGA Modifier: LONGGA <+> 3 Implant Expiration Date 12/23/20 08:48:23 Senior Infrastructure Architect: LONGGA Modifier: LONGGA <+> 3 Implant Identification Description <+> 3 Implant Identification Serial Number <+> 3 Implant Identification Personal Fitness Manager Name: <+> 3 Implant Site <+> 3 Implant Quantity <+> 3 Implant Identification Catalog Number <+> 3 Implant Type <+> 3 Implant Has an Expiration Date <+> 3 Type 12/23/20 08:47:19 Senior Infrastructure Architect: LONGGA Modifier: LONGGA <+> 2 Implant Identification Description <+> 2 Implant Identification Lot Number <+> 2 Implant Identification Personal Fitness Manager Name: <+> 2 Implant Expiration Date <+> [...] w/ vancomycin 1Gm vial - epinephrine 1:100,000 [id number] 20ml vial - [id number] Combo Med List 4 - Combo Med [...] [facility] IntraOp Medication Admin Audit 12/23/20 08:39:42 Senior Infrastructure Architect: LONGGA Modifier: LONGGA <+> 5 Medication/Irrigant <+> [...] JR, MD-ORT, SAMARIA, TARA, URSULA,PAPO, Austen, Stephan, PIPE CAULKER/GAMBLING FLOOR SUPERVISOR Position Verified Positioning Yes Verified by Anesthesia [...] [facility] IntraOp Surgical Procedures Audit 12/23/20 09:51:54 Senior Infrastructure Architect: LONGGA Modifier: LONGGA 1 <*> Procedure Knee Total Joint Replacement 1 <+> Stop 12/23/20 08:21:22 Senior Infrastructure Architect: LONGGA Modifier: LONGGA <+> 1 Start [facility] IntraOp Temp Regulation Devices Entry 1 Temp Regulation Temperature Warm blankets Regulation Device Temperature Upper body Regulation Site Temperature SAMARIA, TARA, SCRUBBER SYSTEM ATTENDANT,UTILITY FORESTER Regulation Device Applied by Last Modified By: [...] [facility] IntraOp Time Out Audit 12/23/20 08:31:31 Senior Infrastructure Architect: YVETTE Modifier: YVETTE 1 <+> Surgeon 1 [...] Padded Under Cuff Applied By Stephan Boyce, KATHI/GAMBLING FLOOR SUPERVISOR Times Start Time 12/23/20 08:10:00 Stop Time 12/23/20 08:59:00 Last Modified By: HAYDER EASON RN 12/23/20 09:00:54 [facility] IntraOp Tourniquet Audit 12/23/20 09:00:54 Senior Infrastructure Architect: YVETTE Modifier: YVETTE <+> 1 Stop Time Case Comments <None> Finalized By: HAYDER EASON, RN Document Signatures Signed By: HAYDER EASON RN 12/23/20 09:59 Electronically signed by Lakesha [facility] Conversion Lecturer Of Portuguese Cerner at 07/09/2022 10:43 AM CDT documented in this encounter Plan of Treatment Not on file documented as of this encounter Visit Diagnoses Not on filedocumented in this encounter
--- OUTSIDE RECORDS SUMMARY | 2024-11-06 10:27 | XMS_ITS | Encounter Summary ---
Author Organization [employer] ([place], [place], [place], [place]) Address [address] [place] [address] Care Team Providers Care Locomotive Switch Operator Name Role Phone Unavailable Primary Care Provider Unavailabl e Encounter Details Date Type Department Care Team (Late st Contact Info) Description 12/23/2020 Transcribed Document [facility] [place] Family Medicine [address] [place] [address] ProviderJaime MD [address] [place], [place] 476781 Social History Tobacco Use Types Packs/Day Years [...] : Yes Discharge To Care Management : Home/Residential/Shelter or Self Care -01 ANGELA NGUYEN RN [...]
--- OUTSIDE RECORDS SUMMARY | 2024-11-06 10:27 | XMS_ITS | Clinical Summary ---
Author Organization [employer] ([place], [place], [place], [place]) Address [address] [place], [place] [address] Care Team Providers Care Broadcast Field Supervisor Name Role Phone Unavailable Primary Care [...] Date Milton rded Speak language other than Uzbek at home Not on file 01/23/2024 Want [...] Plan of Treatment Not on file Insurance [facility] MEDICARE ADVANTAGE
--- OUTSIDE RECORDS SUMMARY | 2024-11-06 10:27 | XMS_ITS | Encounter Summary ---
Author Organization [employer] ([place], [place], [place], [place]) Address [address] [place] [address] Care Team Providers Care Metaphysician Name Role Phone Unavailable Primary Care Provider Unavailabl e Encounter Details Date Type Department Care Team (Late st Contact Info) Description 12/16/2020 Transcribed Document [facility] [place] [facility] [address] ProviderJaime MD [address] [place], [place] 473261 Social History Tobacco Use Types Packs/Day Years [...] EDT Electronically signed by Adolph Crowder Conversion Flight Operations Coordinator Romulo at 07/09/2022 10:47 AM CDT documented in this encounter Plan of Treatment Not on file documented as of this encounter Visit Diagnoses Not on filedocumented in this encounter
--- OUTSIDE RECORDS SUMMARY | 2024-11-06 10:27 | XMS_ITS | Encounter Summary ---
Author Organization [facility] Address [address] [place] [address] Care Team Providers Care Games Manager Name Role Phone Columba Rodríguez APRN Primary Care Provider [phone] Shay Bgigs MD Unavailable [phone] Encounter Details Date Type Department Care Team (Late st Contact Info) Description 11/04/2024 Telephone [facility] [address], [address] [place] [address] Baldemar Gibbs MD [address] [place] [address] Social History Tobacco Use Types Packs/Day Years Used Date Smoking Tobacco: Never Passive Smoke Exposure: Never Smokeless Tobacco: Never Sex and Gender Information Value Date Recorded Sex Assigned at Not on file Legal Sex Male 6:39 PM EDT Gender Identity Not on file Sexual Orientation Not on file documented as of this encounter Miscellaneous Notes * Telephone Encounter - Damián Benz - 11/04/2024 4:26 PM EDT Patient defers offered appointment 11/14/[address] Gibbs documented in this encounter Plan of Treatment Not on file documented as of this encounter Visit Diagnoses Not on filedocumented in this encounter Care Teams Games Manager Relationship Specialty Start Date End Date Columba Rodríguez APRN [address] [place] [address] [place] [phone] PCP - General 11/04/24 Shay Biggs MD [address] [place] [address] Referring Physician Cardiology 11/04/24 documented as of this encounter
--- OUTSIDE RECORDS SUMMARY | 2024-11-06 10:27 | XMS_ITS | Encounter Summary ---
Author Organization [employer] ([place], [place], [place], [place]) Address [address] [place] [address] Care Team Providers Care Coil Repair Technician Name Role Phone Unavailable Primary Care Provider Unavailabl e Encounter Details Date Type Department Care Team (Late st Contact Info) Description 12/23/2020 Transcribed Document [facility] [place] Family Medicine [facility] [place] [address] ProviderJaime MD [address] [place] [address] Social History Tobacco Use Types Packs/Day [...] 12/23/2020 7:23 EDT Electronically signed by Lakesha, [facility] Conversion Inside Barrel Polisher Cerner at 07/09/2022 10:51 AM CDT documented in this encounter Plan of Treatment Not on file documented as of this encounter Visit Diagnoses Not on filedocumented in this encounter
--- OUTSIDE RECORDS SUMMARY | 2024-11-06 10:27 | XMS_ITS | Encounter Summary ---
Author Organization [facility] Address [address] [place] [id number] Care Team Providers Care Offal Icer Poultry Name Role Phone Columba Rodríguez APRN Primary Care Provider [phone] Reason for Visit * Reason Comments Med Refill Encounter Details Date Type Department Care Team (Late st Contact Info) Description 10/18/2024 Refill [facility] [address] [facility] [address] [place] [address] Adrianne Hdez APRN [address] [facility] [address] [place], [place] [id number] Social History Tobacco Use Types Packs/Day Years [...] Description 12/13/2024 11:15 AM EDT Office Visit [facility] [address] [address] Cash Khanna DO [address] [address] documented as of this encounter Visit Diagnoses Not on filedocumented in this encounter Care Teams Offal Icer Poultry Relationship Specialty Start Date End Date Columba Rodríguez APRN [address] [place], [place] [phone] PCP - General Family Medicine 11/10/23 documented as of this encounter
--- OUTSIDE RECORDS SUMMARY | 2024-11-06 10:27 | XMS_ITS | Encounter Summary ---
Author Organization [employer] ([place], [place], [place], [place]) Address [address] [place] [address] Care Team Providers Care Indigo Mixer Name Role Phone Unavailable Primary Care Provider Unavailabl e Encounter Details Date Type Department Care Team (Late st Contact Info) Description 12/23/2020 Transcribed Document [facility] [place] [facility] [place] [address] ProviderJaime MD [address] [place] [address] [phone] Social History Tobacco Use Types Packs/Day Years [...] Providers : Yes [facility] Quality Web Info Shared w Pt/Fam : [...]
--- OUTSIDE RECORDS SUMMARY | 2024-11-06 10:27 | XMS_ITS | Encounter Summary ---
Author Organization [employer] ([place], [place], [place], [place]) Address [address] [place] [address] Care Team Providers Care Microbial Specialist Name Role Phone Unavailable Primary Care Provider Unavailabl e Encounter Details Date Type Department Care Team (Late st Contact Info) Description 12/23/2020 Transcribed Document [facility] [place] [facility] [place] [address] ProviderJaime MD [facility] [place], [place] [address] Social History Tobacco Use Types Packs/Day Years [...] knee 12/23/2020 12:00 Atherosclerotic heart disease of [place] coronary artery without angina pectoris 12/23/2020 12:00 [...]
[2024-11-06 10:50] LABS: Hematocrit 34.0 % (42.0-52.0); Hemoglobin 10.6 g/dL (14.1-18.0); Immature Granulocytes % 0.5 %; Mean Corpuscular HGB Conc 31.2 g/dL (31.8-35.4); Mean Corpuscular Hemoglobin 24.0 pg (27.0-31.2); Mean Corpuscular Volume 77.1 fl (80-94); Nucleated Red Blood Cells % 0 %; Platelet Count 389 K/mm3 (142-424); Red Blood Count 4.41 M/mm3 (4.60-6.20); Red Cell Distribution Width-SD 40.5 fL; White Blood Count 5.8 K/mm3 (4.8-10.8)
[2024-11-06 11:34] LABS: Chloride 101 mmol/L (98-107); Potassium 4.6 mmoL/L (3.5-5.1); Sodium 136 mmol/L (136-145)
[2024-11-06 11:37] LABS: Blood Urea Nitrogen 17 mg/dl (9-20); Calcium 8.9 mg/dl (8.4-10.2); Creatinine,Serum 0.90 mg/dl (0.66-1.25); Estimated Glomerular Filt Rate 83 ml/min (>60); GFR (African American) 100 ML/MIN (>60); Glucose 193 mg/dl (74-100)
[2024-11-06 13:03] LABS: Anion Gap 15.6 mEq/L (5-15); Carbon Dioxide 24 mmol/L (22.0-30.0)
== END 2024-11-06 23:59 | disposition home or self-care (01) ==
LOC: LAB 10:22
PROVIDERS: PCP Family Medicine; Visit Provider Internal Medicine
DX: I25.10 Atherosclerotic heart disease of native coronary artery without angina pectoris (principal)
CPT/HCPCS: 36415; 80048; 85025

== ENCOUNTER 2024-11-08 10:46 | Outpatient (RCR) | payer MEDICARE, SELFPAY ==
--- NOTE | 2024-11-08 11:49 | HMH.OPLYMPH ---
Rehab Inpt Wound Evaluation Rehab OP Lymphedema Evaluation Start: 11/08/24 11:01 Freq: Status: Active Protocol: Document 11/08/24 11:29 PHORNE (Rec: 11/08/24 11:49 PHORNE [id number]) E-signed By Scott Gallegos, PT Subjective/History History History This is the initial PT lymphedema eval for Mable Alford, 74 yowm who presents with increased B LE edema x 2-3 mos with underlying chronic B LE lymphedema for many years. He reports several recent hospitalizations due to mulitple co-morbid conditions. He had recent bouts of cellulitis in L LE and heart cath. He reports continued pain and tenderness in B LE since his cellulitis. He has compression garments at home, but reports the are uncomfortable due to increased edema currently. He has extensive PMH as follows: Medical History Hematoma of left lower leg Cellulitis of lower leg Dyspnea on exertion ILD (interstitial lung disease) Left renal mass Acute nontraumatic kidney injury Hypomagnesemia Elevated brain natriuretic peptide (BNP) level Dyspnea Elevated troponin Chronic GERD Orthostatic hypotension Dizziness Atypical angina Cellulitis of right leg Vocal cord edema Ringing in right ear Chronic hoarseness Globus sensation Vertigo Recurrent vertigo upon turning head toward the left associated with tinnitus. 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 Seen by pulmonology at [facility] and prescribed INH, RFP, B6 but he never took the medicine as prescribed Restrictive lung disease Left sided abdominal pain Left shoulder strain Left groin pain Claustrophobia Chronic cough Cognitive complaints 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, word finding difficulty Edema of both lower extremities Decreased pedal pulses Non-healing ulcer of foot Right 3rd distal tip DFU Decreased ROM of right shoulder Right shoulder pain Right shoulder injury Pes planus of both feet Skin lesion Impotence Low back pain Left against medical advice Memory loss Chronic SI joint pain Radiculopathy Neuropathic pain Leg pain, posterior Kidney stone Ingrown toenail of right foot Pre-ulcerative calluses Splinter of toe of left foot Pain of left great toe Cellulitis of great toe of right foot Acute bacterial bronchitis Incurved toenail Diabetes mellitus HA1c- 7.3% 06/06/24 Onychomycosis Pain in both feet Callus of foot Diabetic foot ulcer Acute febrile illness SIRS (systemic inflammatory response syndrome) Left against medical advice Lower extremity edema Epistaxis Encounter for pre-operative cardiovascular clearance Sepsis Urinary incontinence Weakness Cellulitis, leg Obesity (BMI 30-39.9) Acute delirium Cellulitis Severe sepsis SIRS (systemic inflammatory response syndrome) Physical deconditioning Bacterial pneumonia Hypokalemia Bronchitis due to COVID-19 virus Pneumonia due to COVID-19 virus COVID-19 virus infection Exposure to COVID-19 virus Viral syndrome Acute bronchitis Hematuria Kidney stone on right side Multiple renal cysts Cough Diastolic dysfunction Mental status change resolved HTN (hypertension) Dyspnea SOB (shortness of breath) HHD (hypertensive heart disease) Pre-op evaluation Microalbuminuria Enlarged prostate History of IBS Diabetes Acquired lymphedema Surgical History History of cardiac cath History of total right knee replacement History of rotator cuff surgery History of coronary artery stent placement History of cholecystectomy Hx of total knee arthroplasty Subjective Subjective Current pain in B feet 3/10. 2/4 TTP to B lower legs. MODERATE erythema noted to B lower legs. 2+ pitting edema to B lower legs. MODERATE fibrotic edema underlying pitting on R lower leg and L foot. Pt continues to have persistent lymphedema despite conservative treatment consisting of greater than 4 weeks of consistent elevation of B LE, compression garment wear throughout the day, and therapeutic exercise to improve fluid mobilization. Lymphedema Eval Classification of Lymphedema Secondary Lymphedema Yes Stemmer's sign Stemmer's Sign yes Stage of Lymphedema Lymphedema stages Stage II (Pitting edema, increased fibrosis w/ decreased pitting) Skin Changes Dry Skin Yes Taut, Shiny Skin Yes Skin Folds Yes Redness Yes Wounds Yes Discoloration of Yes Skin Other Changes Yes Pain Scale Pain Scale (0-10) 3 Radiation Therapy Has received no radiation therapy Chemo Therapy Has received chemo no therapy Affected Extremities Areas Affected by Right Lower Extremity,Left Lower Extremity Lymphedema/Edema Lower Extremity Measurements Right MTP Measurement (cm) 28.7 Heel Measurement (cm 37.6 ) 10 cm Proximal to 37.9 Lateral Malleoli Measurement (cm) 20 cm Proximal to 43.1 Lateral Malleoli Measurement (cm) 30 cm Proximal to 41.3 Lateral Malleoli Measurement (cm) 40 cm Proximal to 40.4 Lateral Malleoli Measurement (cm) 50 cm Proximal to 0 Lateral Malleoli Measurement (cm) 60 cm Proximal to 0 Lateral Malleoli Measurement (cm) Lower Extremity 229.0 Measurement Total ( cm) Left MTP Measurement (cm) 27.6 Heel Measurement (cm 35.4 ) 10 cm Proximal to 30.8 Lateral Malleoli Measurement (cm) 20 cm Proximal to 39.0 Lateral Malleoli Measurement (cm) 30 cm Proximal to 37.8 Lateral Malleoli Measurement (cm) 40 cm Proximal to 36.9 Lateral Malleoli Measurement (cm) 50 cm Proximal to 0 Lateral Malleoli Measurement (cm) 60 cm Proximal to 0 Lateral Malleoli Measurement (cm) Lower Extremity 207.5 Measurement Total ( cm) Manual Lymphatic Drainage Treatment Area MLD Treatment Area Right Lower Extremity,Left Lower Extremity Wound Problems/Impairments Impairments Problems/ Palpation Tenderness,Impaired Endurance,Impaired Impairmments Walking,Impaired Standing,Impaired Dressing,Impaired Household Care,Increased Edema,Lymphedema Present, Subjective C/O Pain,Impaired Self Care/Self Management Prognosis Rehab Potential Good Comment Skilled therapy is indicated to reduce overall edema in order to aid pt improvement in QOL. Clinical Impression Consistent with Yes Diagnosis Consistent with also: Additional details: I89.0 Lymphedema Lymphedema Patient Goals Lymphedema Patient Goals Lymphedema Short in 2 wks pt will: Term Patient Goals 1) Reduce pitting edema to 1+ in R LE 2) Reduce circumferential measurements to B LE by 5 cm ea Lymphedema Snf in 4 wks pt will: Patient Goals 1) Reduce pitting edema to 0 in R LE 2) Reduce circumferential measurements to B LE by 15 cm ea 3) Be independent with donning/doffing of compression garments 4) be independent with Lymphedema management via HEP 5) reduce pain to 1/10 in B LE Outpatient Therapy Plan of Care Treatment Plan May Include Therapeutic Exercise Yes Including Home Exercise Program Manual Therapy Yes Techniques Neuromuscular Re- Yes education Therapeutic Yes Activities to Return to Previous Functional/Work Level ADL/Self Care Yes Education Thermal Modalities Yes Orthotics/Bracing/ Yes Splinting Vasopneumatic Yes Compression Pump Manual Lymphatic Yes Drainage Eval/Re-Eval Yes Frequency Times per week 2 Duration Number of Weeks 4 Addendums This patient is a No candidate for social or vocational rehab ? Patient/Guardian Yes verbally acknowledges understanding of treatment program and consents to further treatment? Patient/Guardian Yes verbally acknowledges understanding of diagnosis, prognosis and goals for treatment? Eval Complexity PT Charges 56007 - High Complexity PHYSICIAN CERTIFICATION: I certify the specified therapy services for Creston Alford III are required, authorized, and reviewed every 30 days.
== END 2024-11-08 23:59 | disposition home or self-care (01) ==
LOC: PT 10:46
PROVIDERS: PCP Family Medicine; Visit Provider Family Medicine
DX: L03.119 Cellulitis of unspecified part of limb (principal)
CPT/HCPCS: 97163

== ENCOUNTER 2024-11-21 15:36 | Outpatient (CLI) | payer MEDICARE, SELFPAY ==
[2024-11-21 21:24] LABS: Influenza A, PCR Not Detected (NotDetected); Influenza B, PCR Not Detected (NotDetected)
[2024-11-21 22:09] LABS: Coronavirus 19, PCR Detected (NotDetected)
--- OUTSIDE RECORDS SUMMARY | 2024-11-22 12:31 | XMS_ITS | Encounter Summary ---
Author Organization [employer] ([place], [place], [place], [place]) Address [address] [place] [address] Care Team Providers Care Photographic Laboratory Supervisor Name Role Phone Unavailable Primary Care Provider Unavailabl e Encounter Details Date Type Department Care Team (Late st Contact Info) Description 12/09/2020 Transcribed Document [facility] [place] Medicine [address] [place] [address] ProviderJaime MD [address], [place] [id number] Social History Tobacco Use Types Packs/Day Years [...] : Standing scale Weight Entry Format : Randolph Clinical Dosing Weight : 95.91 kg Weight, Pounds : 211 lb Body Surface Area (BSA) : 2.12 m2 Body Mass Index : 31.2 kg/m2 (HI) [place] Body Weight : 70 kg Michaela Alvarez Rn - 12/09/2020 16:02 EDT Height Source : Stated Height Entry Format : Randolph Michaela Alvarez Rn - 12/09/2020 15:57 EDT [...] Michaela Alvarez Rn - 12/09/2020 16:02 EDT [place] Suicide Severity Rating Scale (C-SSRS) CSSRS Past [...] history Currently in Unsafe Situation : No iMchaela Alvarez Rn - 12/09/2020 16:02 EDT Teaching/Learning [...] Obtained From : Patient Primary Language : Grenadian Preferred Communication Mode : Verbal Communication Barrier : None Flat Knitter Helper Needed : No Michaela Alvarez Rn [...]
--- OUTSIDE RECORDS SUMMARY | 2024-11-22 12:31 | XMS_ITS | Clinical Summary ---
Author Organization [facility] Address [address] [place] [address] Phone Care Team Providers Care Clinical Secretary Name Role Phone Jer Zhang MD [ ] Conditions or Problems Problem Name Problem Code Onset Date Status Entry Date Provider Comment Standard Description Annotate Diarrhea, chronic 312733821 (SNOMED CT) 12/19 Active 12/19 Jer Zhang MD Chronic diarrhea Lymphedema 144857052 (SNOMED CT) 12/19 Active 12/19 Jer Zhang MD Lymphedema Latent tuberculosis 606231885 (SNOMED CT) 12/16 Active 12/16 Imelda Hollis Nonspecific tuberculin test reaction + 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 R76.12 (ICD-10-CM ) 09/18 Active 09/18 Imelda Bunny 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 gamma interferon antigen response without active tuberculosis Edema, limb 484377215 (SNOMED CT) 09/21 Resolved 09/21 Imelda Hollis Edema of extremity Right Leg Edema, limb 752305197 (SNOMED CT) 09/21 Removed 09/21 Jer Zhang [...] DAY 2 THROUGH DAY 5 12/19 azithromycin 16780596638 Cinda Rolando BENZONATATE 100 MG CAPS Take 1 capsule by mouth three times a day as needed 12/19 BENZONATATE Cinda Fu TRIAZOLAM 0.25 MG TABS Take 1 tablet by mouth 12/19 triazolam 63639185175 Cinda Fu LORAZEPAM 1 MG TABS Take 1 tablet 12/19 lorazepam 36918066056 Cinda Fu LEVOFLOXACIN 750 MG TABS Take 1 tablet by mouth once a day 12/19 levofloxacin 74830807026 Cinda Rolando LOSARTAN POTASSIUM 50 MG TABS one tab oral daily 12/19 losartan 80688863015 Cinda Rolando NYSTATIN 427855 UNIT/GM OINT Apply to skin once a day 12/19 nystatin 99905057670 Cinda Fu RIFAMPIN 300 MG CAPS Take 2 by mouth once a day 12/19 rifampin 01004248310 Cinda Rolando CYCLOBENZAPRINE HCL 5 MG TABS one tab oral daily 12/19 cyclobenzaprine 65958211306 Cinda Fu ISONIAZID 300 MG TABS Take 1 tablet by mouth once a day 12/19 isoniazid 43622695925 Cinda PROMETHAZINE-CODEI NE 6.25-10 MG/5ML SYRP Take 5 ml by mouth twice a day 12/19 promethazine-code ine 14349035500 Cinda Fu DICYCLOMINE HCL 10 MG CAPS 1 cap oral twice a day 12/19 dicyclomine 40432453964 Cinda Fu CLOPIDOGREL BISULFATE 75 MG TABS Take 1 tablet by mouth once a day 12/19 clopidogrel 32868872152 Cinda Marshall HYDROCOD POLST-CPM POLST ER 10-8 MG/5ML ORAL SUSPENSION EXTENDED RELEASE Take 1 teaspoon by mouth twice a day 12/19 HYDROCOD POLST-CPM POLST ER 10-8 MG/5ML ORAL SUSPENSION EXTENDED RELEASE Cinda Marshall PLAVIX 75 MG TABS once a day clopidogrel 4635950 7190 Cinda Marshall TRIAZOLAM 0.25 MG TABS Take 1 tablet by mouth 09/24 triazolam 06726226621 Melvin Hartman ISONIAZID 300 MG TABS Take 1 tablet by mouth once a day 12/19 isoniazid 80267137841 Melvin Hartman CLOPIDOGREL BISULFATE 75 MG TABS Take 1 tablet by mouth once a day 12/19 clopidogrel 85263763569 Melvin Hartman LORAZEPAM 1 MG TABS Take 1 tablet 12/19 lorazepam 03431741996 Melvin Hartman NYSTATIN 368792 UNIT/GM OINT Apply to skin once a day 12/19 nystatin 13610968020 Mevlin Hartman HYDROCOD POLST-CPM POLST ER 10-8 MG/5ML ORAL SUSPENSION EXTENDED RELEASE Take 1 teaspoon by mouth twice a day 12/19 HYDROCOD POLST-CPM POLST ER 10-8 MG/5ML ORAL SUSPENSION EXTENDED RELEASE Melvin Hartman AZITHROMYCIN 250 MG TABS TAKE 2 TABLETS BY MOUTH ON DAY 1 AND THEN TAKE 1 TABLET BY MOUTH ONCE A DAY ON DAY 2 THROUGH DAY 5 09/24 azithromycin 16265437957 Melvin Hartman RIFAMPIN 300 MG CAPS Take 2 by mouth once a day 09/24 rifampin 31700175721 Melvin Hartman PROMETHAZINE-CODEI NE 6.25-10 MG/5ML SYRP Take 5 ml by mouth twice a day 05/09 promethazine-code ine 62252696817 Melvin Hartman BENZONATATE 100 MG CAPS Take 1 capsule by mouth three times a day as needed 12/19 BENZONATATE Melvin Hartman LEVOFLOXACIN 750 MG TABS Take 1 tablet by mouth once a day 12/19 levofloxacin 55052039416 Melvin Hartman DICYCLOMINE HCL 10 MG CAPS 1 cap oral twice a day 09/24 dicyclomine 36459046203 Melvin Hartman SIMVASTATIN 20 MG TABS one tab oral daily simvastatin 45960908806 Melvin Hartman LOSARTAN POTASSIUM 50 MG TABS one tab oral daily 09/24 losartan 50476036285 Melvin Hartman CYCLOBENZAPRINE HCL 5 MG TABS one tab oral daily 09/24 cyclobenzaprine 34406461575 Melvin Hartman TRAMADOL HCL 50 MG TABS one tab every 6 hours prn tramadol 99487903694 Melvin Hartman METFORMIN HCL 500 MG TABS one tab oral twice a day metformin 90140416044 Melvin Hartman RIFAMPIN 300 MG CAPS take 2 po daily 09/24 RIFAMPIN 05705326557 Jer Zhang MD ISONIAZID 300 MG TABS Take 1 tablet by mouth daily 12/16 ISONIAZID 48310016972 Jer Zhang MD AZITHROMYCIN 250 MG TABS TAKE 2 TABLETS BY MOUTH ON DAY 1 AND THEN TAKE 1 TABLET BY MOUTH ONCE A DAY ON DAY 2 THROUGH DAY 5 09/24 AZITHROMYCIN 98839861696 Gerald Ocasio BENZONATATE 100 MG CAPS TAKE 1 CAPSULE BY MOUTH THREE TIMES DAILY FOR 10 DAYS NEEDED FOR COUGH 12/16 BENZONATATE 49824061104 Gerald Ocasio PROMETHAZINE-CODEI NE 6.25-10 MG/5ML SOLN TAKE 5 ML BY MOUTH TWICE DAILY 12/16 PROMETHAZINE-CODE INE 08459775731 Gerald Ocasio LEVOFLOXACIN 750 MG TABS TAKE 1 TABLET BY MOUTH ONCE DAILY FOR 8 DAYS 12/16 LEVOFLOXACIN 16191138094 Gerald Ocasio CLOPIDOGREL BISULFATE 75 MG TABS TAKE 1 TABLET BY MOUTH ONCE DAILY 12/16 CLOPIDOGREL BISULFATE 74600096414 Gerald D NYSTATIN 265384 UNIT/GM OINT APPLY OINTMENT TOPICALLY ONCE DAILY 12/16 NYSTATIN 89339381329 Gerald D HYDROCOD POLST-CPM POLST ER 10-8 MG/5ML ORAL SUSPENSION EXTENDED RELEASE TAKE 1 TEASPOONFUL (5 ML) BY MOUTH TWICE DAILY MAY CAUSE DROWSINESS 12/16 HYDROCOD POLST-CHLORPHEN POLST 70180661174 Gerald D TRIAZOLAM 0.25 MG TABS TAKE 1 TABLET BY MOUTH 30 MINUTES PRIOR TO MRI ON 09/24 TRIAZOLAM 03806347606 Gerald D LORAZEPAM 1 MG TABS TAKE 1 TABLET 2 HOURS BEFORE MRI FOR ANXIETY 12/16 LORAZEPAM 48738456315 Gerald D Medications Administered No information available. 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
--- OUTSIDE RECORDS SUMMARY | 2024-11-22 12:32 | XMS_ITS | Encounter Summary ---
Author Organization [employer] ([place], [place], [place], [place]) Address [address] [place] [address] Care Team Providers Care Tick Sewer Name Role Phone Unavailable Primary Care Provider Unavailabl e Encounter Details Date Type Department Care Team (Late st Contact Info) Description 12/23/2020 Transcribed Document [facility] [place] [address] [place] [address] ProviderJaime MD [address] [place], [place] [id number] Social History Tobacco Use Types Packs/Day Years [...] III /Sex: 1950 Male Med Rec #: [id number] Physician: KAYLA ZIMMERMAN JR, JR, MD-ORT Financial #: [id number] Pt. Type: O Room/Bed: Admit/Disch: 12/23/20 04:16:00 - Institution: [facility] [place] PreOp Case Times Entry 1 In Preop 12/23/20 05:15:00 Ready for Holding n/a Room Patient Ready for 12/23/20 06:42:00 Surgery Patient Out of Preop 12/23/20 07:50:00 Patient Out of n/a Holding Room Last Modified By: Aden Boyce RN 12/23/20 07:46:17 [facility] PreOp Case Times Audit 12/23/20 07:46:17 Last Putter Away: [email or web address] Modifier: ADENVERNADanny <+> 1 Patient Out of Preop Finalized By: Aden Boyce, RN Document Signatures Signed By: Aden Boyce RN 12/23/20 07:46 documented in this encounter Plan of Treatment Not on file documented as of this encounter Visit Diagnoses Not on filedocumented in this encounter
--- OUTSIDE RECORDS SUMMARY | 2024-11-22 12:32 | XMS_ITS | Encounter Summary ---
Author Organization [employer] ([place], [place], [place], [place]) Address [address] [place] [address] Care Team Providers Care Leasing Director Name Role Phone Unavailable Primary Care Provider Unavailabl e Encounter Details Date Type Department Care Team (Late st Contact Info) Description 12/23/2020 Transcribed Document [facility] [place] [address] [place] [address] ProviderJaime MD [address] [place], [place] [id number] Social History Tobacco Use Types Packs/Day Years [...] III /Sex: 1950 Male Med Rec #: [id number] Physician: KAYLA ZIMMERMAN JR, JR, MD-ORT Financial #: [id number] Pt. Type: O Room/Bed: Admit/Disch: 12/23/20 04:16:00 - Institution: [facility] OR PACU Case Times Entry 1 In PACU I 12/23/20 09:56:00 Ready for PACU 12/23/20 11:12:00 Discharge Discharge from PACU 12/23/20 11:12:00 I Last Modified By: Janene Helm RN 12/23/20 11:16:01 [facility] Main OR PACU Case Times Audit 12/23/20 11:16:01 Comic Artist: KINZA Modifier: KINZA 1 <*> Ready for PACU Discharge 12/23/20 10:30:00 1 <+> Discharge from PACU I Finalized By: Janene Helm RN Document Signatures Signed By: Janene Helm RN 12/23/20 11:16 documented in this encounter Plan of Treatment Not on file documented as of this encounter Visit Diagnoses Not on filedocumented in this encounter
--- OUTSIDE RECORDS SUMMARY | 2024-11-22 12:32 | XMS_ITS | Encounter Summary ---
Author Organization [employer] ([place], [place], [place], [place]) Address [address] [place] [address] Care Team Providers Care Meat Department Manager Name Role Phone Unavailable Primary Care Provider Unavailabl e Encounter Details Date Type Department Care Team (Late st Contact Info) Description 12/09/2020 Transcribed Document [facility] [place] [address] [place] [address] ProviderJaime MD [address], [place] [id number] Social History Tobacco Use Types Packs/Day Years [...]
--- OUTSIDE RECORDS SUMMARY | 2024-11-22 12:32 | XMS_ITS | Encounter Summary ---
Author Organization [employer] ([place], [place], [place], [place]) Address [address] [place] [address] Care Team Providers Care Academic Manager Name Role Phone Unavailable Primary Care Provider Unavailabl e Encounter Details Date Type Department Care Team (Late st Contact Info) Description 12/23/2020 Transcribed Document [facility] [place] Family Medicine [address] [place] [address] ProviderJaime MD [address] [place] [address] Social History Tobacco Use Types Packs/Day Years Used Date Smoking Tobacco: Never Assessed Sex and Gender Information Value Date Recorded Sex Assigned at Not on file Legal Sex Male 5:28 PM CDT Gender Identity Not on file Sexual Orientation Not on file documented as of this encounter Miscellaneous Notes * Cerner Conversion Note - Jaime ProviderMD - 12/23/2020 1:22 [place] [address] AYLEEN BLACK III :1950 Visit Time:12/23/2020 What [...] then 6 days after surgery Community Services: [facility] Home Health Services: Tara [...] When 12/29/2020 09:45 AM EDT Where: [address] [facility] [address] [place] [address] Medications What How Much When Instructions Next [...] or 4 frozen water bottles in the [facility] CUBE. Continue to use Incentive [...] Barley. Bulgur wheat. Millet. Bran muffins. Popcorn. [place] wafer crackers. Vegetables Sweet potatoes. Spinach. Kale. Artichokes. Cabbage. Broccoli. Green peas. Carrots. Squash. Fruits Berries. Pears. Apples. Oranges. Avocados. Prunes and raisins. Dried figs. Meats and Other Protein Sources [place], kidney, amador, and soy beans. Split peas. [...] 1 katy has 11 g of protein. [place]a seeds ??? 1 oz has 5.5 g [...] the floor. Place frequently used items in mrpw-od-cimgi places Keep electrical cables out of the [...] ? Using the bathroom. ? Using household senior software analyst or toxic chemicals. ? Touching or [...] activities are safe for you. ??? Take xwqj-gsc-gwgjuly and prescription medicines only as told by [...] provider. Document Revised: 03/16/2018 Document Reviewed: 10/27/2017 [employer] Patient Education ?? 2020 [employer]. acetaminophen (oral) (a SEET a MIN oh fen) Actamin, Anacin AF, Aurophen, Bromo [place], Children's Tylenol, Mapap, M-Pap, Pharbetol, Silapap Childrens, [...] is a pain reliever and a fever coil machine operator. There are many brands and forms [...] may report side effects to FDA at 3-617-RZK-2723. What other drugs will affect acetaminophen? Other drugs may affect acetaminophen, including prescription and kbxx-xmn-hgfuapi medicines, vitamins, and herbal products. Tell your [...] to ensure that the information provided by [employer]. ('Multum') is accurate, up-to-date, and complete, but no guarantee is made to that effect. Drug information contained herein may be time sensitive. [employer] information has been compiled for use by healthcare practitioners and consumers in the [place] and therefore [employer] does not warrant that uses outside of the [place] are appropriate, unless specifically indicated otherwise. [employer]'s drug information does not endorse drugs, diagnose patients or recommend therapy. [facility] drug information is an informational resource designed [...] effective or appropriate for any given patient. [facility] does not assume any responsibility for any aspect of healthcare administered with the aid of information [facility] provides. The information contained herein is not intended to cover all possible uses, directions, precautions, warnings, drug interactions, allergic reactions, or adverse effects. If you have questions about the drugs you are taking, check with your doctor, nurse or pharmacist. Copyright 9428-2536 [facility]. Version: 21.. Revision Date: 11/01/2019. aspirin (oral) ( pir in) Arthritis Pain, Aspi-Cor, Aspir-Low, Nusrat Plus, Durlaza, Ecotrin, Miniprin, Vazalore What is the most important information I should know about aspirin? Aspirin can cause Tonia's syndrome, a serious and sometimes fatal condition in children. What is aspirin? Aspirin is a salicylate (gf-GGN-sz-ate) that is used to treat pain, and [...] may report side effects to FDA at 4-168-ADX-1309. What other drugs will affect aspirin? Ask [...] drugs may affect aspirin, including prescription and iiba-bqh-ohkjdcb medicines, vitamins, and herbal products. Not all [...] to ensure that the information provided by [employer]. ('Multum') is accurate, up-to-date, and complete, but no guarantee is made to that effect. Drug information contained herein may be time sensitive. [employer] information has been compiled for use by healthcare practitioners and consumers in the [place] and therefore [employer] does not warrant that uses outside of the [place] are appropriate, unless specifically indicated otherwise. cooala - your brandss drug information does not endorse drugs, diagnose patients or recommend therapy. cooala - your brandss drug information is an informational resource designed [...] effective or appropriate for any given patient. [employer] does not assume any responsibility for any aspect of healthcare administered with the aid of information [facility] provides. The information contained herein is not intended to cover all possible uses, directions, precautions, warnings, drug interactions, allergic reactions, or adverse effects. If you have questions about the drugs you are taking, check with your doctor, nurse or pharmacist. Copyright 2467-1226 [employer]. Version: 16.03. Revision Date: 09/21/2020. oxycodone (ox [...] The extended-release form of oxycodone is for ggpems-pnp-zlqwf treatment of pain and should not be [...] against the law. Stop taking all other tiuutw-bjm-epuiu opioid pain medicines when you start taking [...] may report side effects to FDA at 4-269-AYN-8410. What other drugs will affect oxycodone? You [...] may affect oxycodone. This includes prescription and onzm-zit-lcskucw medicines, vitamins, and herbal products. Not all [...] to ensure that the information provided by [employer]. ('Multum') is accurate, up-to-date, and complete, but no guarantee is made to that effect. Drug information contained herein may be time sensitive. [employer] information has been compiled for use by healthcare practitioners and consumers in the [place] and therefore E[employer] does not warrant that uses outside of the [place] are appropriate, unless specifically indicated otherwise. E[employer]'s drug information does not endorse drugs, diagnose patients or recommend therapy. cooala - your brandss drug information is an informational resource designed [...] effective or appropriate for any given patient. [employer] does not assume any responsibility for any aspect of healthcare administered with the aid of information [employer] provides. The information contained herein is not intended to cover all possible uses, directions, precautions, warnings, drug interactions, allergic reactions, or adverse effects. If you have questions about the drugs you are taking, check with your doctor, nurse or pharmacist. Copyright 2221-2415 [facility] Odd Geology. Version: 14.02. Revision Date: 04/23/2020. docusate (oral/rectal) [...] may report side effects to FDA at 3-924-FPN-2035. What other drugs will affect docusate? Other drugs may affect docusate, including prescription and lrud-wro-baxubyv medicines, vitamins, and herbal products. Tell your [...] to ensure that the information provided by [employer]. ('Multum') is accurate, up-to-date, and complete, but no guarantee is made to that effect. Drug information contained herein may be time sensitive. E[employer] information has been compiled for use by healthcare practitioners and consumers in the [place] and therefore E[employer] does not warrant that uses outside of the [place] are appropriate, unless specifically indicated otherwise. E[employer]'s drug information does not endorse drugs, diagnose patients or recommend therapy. cooala - your brandss drug information is an informational resource designed [...] effective or appropriate for any given patient. [employer] does not assume any responsibility for any aspect of healthcare administered with the aid of information [employer] provides. The information contained herein is not intended to cover all possible uses, directions, precautions, warnings, drug interactions, allergic reactions, or adverse effects. If you have questions about the drugs you are taking, check with your doctor, nurse or pharmacist. Copyright 7392-3488 [employer]. Version: 4.01. Revision Date: 10/01/2018. cephalexin (sef [...] may report side effects to FDA at 0-945-QBQ-7295. What other drugs will affect cephalexin? Tell your doctor about all your other medicines, especially: ?? metformin; or ?? probenecid. This list is not complete. Other drugs may affect cephalexin, including prescription and nrid-jmd-dbetiej medicines, vitamins, and herbal products. Not all [...] to ensure that the information provided by [employer]. ('Multum') is accurate, up-to-date, and complete, but no guarantee is made to that effect. Drug information contained herein may be time sensitive. E[employer] information has been compiled for use by healthcare practitioners and consumers in the [place] and therefore E[employer] does not warrant that uses outside of the [place] are appropriate, unless specifically indicated otherwise. cooala - your brandss drug information does not endorse drugs, diagnose patients or recommend therapy. cooala - your brandss drug information is an informational resource designed [...] effective or appropriate for any given patient. [employer] does not assume any responsibility for any aspect of healthcare administered with the aid of information E[employer] provides. The information contained herein is not intended to cover all possible uses, directions, precautions, warnings, drug interactions, allergic reactions, or adverse effects. If you have questions about the drugs you are taking, check with your doctor, nurse or pharmacist. Copyright 9446-8401 [employer]. Version: 10.03. Revision Date: 03/30/2020. tramadol (TRAM [...]
--- OUTSIDE RECORDS SUMMARY | 2024-11-22 12:32 | XMS_ITS | Encounter Summary ---
Author Organization [employer] ([place], [place], [place], [place]) Address [address] [place] [address] Care Team Providers Care Lamination Spinner Name Role Phone Unavailable Primary Care Provider Unavailabl e Encounter Details Date Type Department Care Team (Late st Contact Info) Description 12/23/2020 Transcribed Document [facility] [place] [facility] [place] [address] ProviderJaime MD [address] [place] [id number] Social History Tobacco Use Types Packs/Day Years [...]
--- OUTSIDE RECORDS SUMMARY | 2024-11-22 12:32 | XMS_ITS | Encounter Summary ---
Author Organization [employer] ([place], [place], [place], [place]) Address [address] [place] [address] Care Team Providers Care Tobacco Feeder Catcher Name Role Phone Unavailable Primary Care Provider Unavailabl e Encounter Details Date Type Department Care Team (Late st Contact Info) Description 12/23/2020 Transcribed Document [facility] [place] [address] [place] [address] ProviderJaime MD [address] [place], [place] [id number] Social History Tobacco Use Types Packs/Day Years [...] III /Sex: 1950 Male Med Rec #: [id number] Physician: KAYLA ZIMMERMAN JR, JR, MD-ORT Financial #: [id number] Pt. Type: O Room/Bed: Admit/Disch: 12/23/20 04:16:00 - Institution: [facility] Main OR PostOp Case Times Entry 1 In PACU II 12/23/20 11:13:00 Ready for PACU II 12/23/20 13:49:00 Discharge Discharge from PACU 12/23/20 13:49:00 II Last Modified By: Rosa Montes RN 12/23/20 14:04:05 Finalized By: Rosa Montes, RN Document Signatures Signed By: Rosa Montes RN 12/23/20 14:04 Electronically signed by [facility] Conversion Casing Trimmer Cerner at 07/09/2022 10:45 AM CDT documented in this encounter Plan of Treatment Not on file documented as of this encounter Visit Diagnoses Not on filedocumented in this encounter
--- OUTSIDE RECORDS SUMMARY | 2024-11-22 12:32 | XMS_ITS | Encounter Summary ---
Author Organization Healthcare Address [address] [place] [address] Care Team Providers Care Pantry Attendant Name Role Phone Columba Rodríguez APRN Primary Care Provider [phone] Shay Biggs MD Unavailable [phone] Encounter Details Date Type Department Care Team (Late st Contact Info) Description 11/04/2024 Telephone [facility] [address], [address] [place] [address] Baldemar Gibbs MD [address] [place] [address] Social History Tobacco Use Types [...] on filedocumented in this encounter Care Teams Pantry Attendant Relationship Specialty Start Date End Date Columba Rodríguez APRN [address] [place] [address] CanbyDENISA [id number] PCP - General 11/04/24 Shay Biggs MD [address] [place] [address] Referring Physician Cardiology 11/04/24 documented as of this encounter
--- OUTSIDE RECORDS SUMMARY | 2024-11-22 12:32 | XMS_ITS | Encounter Summary ---
Author Organization [employer] ([place], [place], [place], [place]) Address [address] [place] [address] Care Team Providers Care Hand Coremaker Name Role Phone Unavailable Primary Care Provider Unavailabl e Encounter Details Date Type Department Care Team (Late st Contact Info) Description 12/23/2020 Transcribed Document [facility] [place] [address] [place] [address] ProviderJaime MD [address] [place], [place] [id number] Social History Tobacco Use Types Packs/Day Years [...] Include Limited Supply of OOCS : Other PRAANV Result : Other PRANAV Other Notes : As per Dr. Hartman office records Patient cancelled on OOCS : Other PRANAV : . ADI DAUGHERTY MD-INT - 12/23/2020 12:43 EDT Electronically signed by Adolph Crowder Conversion Food And Beverage Outlets Manager Cerner at 07/09/2022 10:37 AM CDT documented in this encounter Plan of Treatment Not on file documented as of this encounter Visit Diagnoses Not on filedocumented in this encounter
--- OUTSIDE RECORDS SUMMARY | 2024-11-22 12:32 | XMS_ITS | Encounter Summary ---
Author Organization [employer] ([place], [place], [place], [place]) Address [address] [place] [address] Care Team Providers Care Cost Estimating Manager Name Role Phone Unavailable Primary Care Provider Unavailabl e Encounter Details Date Type Department Care Team (Late st Contact Info) Description 12/22/2020 Transcribed Document [facility] [place] [facility] [place] [address] ProviderJaime MD [address] [place], [place] [phone] Social History Tobacco Use Types Packs/Day Years [...] or 4 frozen water bottles in the [facility] CUBE. Continue to use [...] Barley. Bulgur wheat. Millet. Bran muffins. Popcorn. [place] wafer crackers. Vegetables Sweet potatoes. Spinach. Kale. Artichokes. Cabbage. Broccoli. Green peas. Carrots. Squash. Fruits Berries. Pears. Apples. Oranges. Avocados. Prunes and raisins. Dried figs. Meats and Other Protein Sources [place], kidney, amador, and soy beans. Split peas. [...] 1 katy has 11 g of protein. [place]aines seeds ??? 1 oz has 5.5 g [...] the floor. Place frequently used items in fmtq-an-vhedp places Keep electrical cables out of the [...] ? Using the bathroom. ? Using household oil well service operator or toxic chemicals. ? Touching or [...] activities are safe for you. ??? Take etjx-csv-sjfbzer and prescription medicines only as told by [...] provider. Document Revised: 03/16/2018 Document Reviewed: 10/27/2017 [employer] Patient Education ? 2020 [employer]. Electronically signed by Adolph Crowder Conversion Talent Acquisition Relationship Manager Cerner at 07/09/2022 10:38 AM CDT documented in this encounter Plan of Treatment Not on file documented as of this encounter Visit Diagnoses Not on filedocumented in this encounter
--- OUTSIDE RECORDS SUMMARY | 2024-11-22 12:32 | XMS_ITS | Encounter Summary ---
[facility] Organization [facility] Address [address] [place] [id number] Care Team Providers Care Clockmaker Apprentice Name Role Phone Columba Rodríguez APRN Primary Care Provider [phone] Reason for Visit * Reason Comments Med Refill Encounter Details Date Type Department Care Team (Late st Contact Info) Description 10/18/2024 Refill [facility] [address] [facility] [address] [place] [address] Adrianne Hdez APRN [address] [address] [place], [place] [phone] Social History Tobacco Use Types Packs/Day Years [...] Description 12/13/2024 11:15 AM EDT Office Visit [facility] [address] [address] Cash Khanna DO [address] [address] documented as of this encounter Visit Diagnoses Not on filedocumented in this encounter Care Teams Clockmaker Apprentice Relationship Specialty Start Date End Date Columba Rodríguez APRN [address] [place], [place] [id number] PCP - General Family Medicine 11/10/23 documented as of this encounter
--- OUTSIDE RECORDS SUMMARY | 2024-11-22 12:32 | XMS_ITS | Encounter Summary ---
Author Organization [facility] ([place], [place], [place], [place]) Address [address] [place] [address] Care Team Providers Care Orthodontic Assistant Name Role Phone Unavailable Primary Care Provider Unavailabl e Reason for Referral * Consultation (Routine) - Closed Specialty Diagnoses / Procedures Referred By Mitchell dela cruz Referred To Contact Neurology Diagnoses Seizure (HCC) Kirsten Gates [address] [place] [address] Phone: tel: Mac Leonard MD [address] [facility] [address] [place] [address] Phone: tel: fax: Referral ID Status Reason Start Date Expiration Date V isits Requested Visits Authorized [id number] Closed Specialty Services Required 01/03/2024 01/02/2025 1 1 Encounter Details Date Type Department Care Team (Late st Contact Info) Description 01/03/2024 Outside Orders [facility] Neurology [address] [facility] [address] [place] [address] [place] [address] Seizure (HCC) (Primary Dx) Social History Tobacco [...]
--- OUTSIDE RECORDS SUMMARY | 2024-11-22 12:32 | XMS_ITS | Clinical Summary ---
Author Organization Healthcare Address [address] [place] [address] Care Team Providers Care Customer Project Manager Name Role Phone Columba Rodríguez URSULA Primary Care Provider [phone] Shay Biggs MD Unavailable [phone] Allergies Active Allergy Reactions Criticality Noted Date [...] Type Department Care Team Description 11/04/2024 Telephone [facility] [address], [address] [place] [address] Baldemar Gibbs MD from Last [...] Wellness (AWV) 1950 [facility]Y-Infant/Child/Adol SDOH Screenings 1950 [id number] Vaccine (#1) 1957 Diabetes: Dental Exam 1962 [...] Recently Relevant to Health Maintenance Results * [place] Hepatitis C Antibody (02/13/2019 6:35 PM EST) [place] Hepatitis C Ab NEGATIVE Reference Range: Negative [facility] 02/13/2019 6:35 PM EST 02/13/2019 7:06 PM EST us Major Diaz MD LAB BLOOD ORDERABLES Final Re sult [facility] from Last 3 Months or Most Recently Relevant to Health Maintenance Insurance Care Teams Customer Project Manager Relationship Specialty Start Date End Date Columba Rodríguez APRN [address] [place] [address] PCP - General 11/04/24 Shay Biggs MD [address] [facility] [address] [place] [address] Referring Physician Cardiology 11/04/24
--- OUTSIDE RECORDS SUMMARY | 2024-11-22 12:32 | XMS_ITS | Encounter Summary ---
Author Organization [employer] ([place], [place], [place], [place]) Address [address] [place] [address] Care Team Providers Care Veterans Rehabilitation Counselor Name Role Phone Unavailable Primary Care Provider Unavailabl e Encounter Details Date Type Department Care Team (Late st Contact Info) Description 12/08/2020 Transcribed Document [facility] [place] [address] [place] [address] ProviderJaime MD [address] [place], [place] [address] Social History Tobacco Use Types Packs/Day Years [...] Health Plan: AETNA MEDICARE REPL Policy Number: [id number] Authorization Number: Insurance Primary Name : AET[employer] MEDICARE REPL Policy Number: [id number] Authorization Status-Primary : Opo status approv Authorized Service Begin Date-Primary : 12/16/2020 EDT Observation Authorization Nbr-Primary : [id number] Authorization Comments-Primary : A[employer] Medicare approved for outpt per availity Historical Authorization Comments-Primary : No Authorization Comments Found ROLANDO TABARES RN-Utilization Review - 12/08/2020 15:21 EDT Electronically signed by Lakesha [facility] Conversion Transit Authority Police Officer Cerner at 07/09/2022 10:42 AM CDT documented in this encounter Plan of Treatment Not on file documented as of this encounter Visit Diagnoses Not on filedocumented in this encounter
--- OUTSIDE RECORDS SUMMARY | 2024-11-22 12:32 | XMS_ITS | Encounter Summary ---
Author Organization [employer] ([place], [place], [place], [place]) Address [address] [place] [address] Care Team Providers Care Air Motor Repairer Name Role Phone Unavailable Primary Care Provider Unavailabl e Encounter Details Date Type Department Care Team (Late st Contact Info) Description 12/16/2020 Transcribed Document [facility] [place] Medicine [facility] [place] [address] ProviderJaime MD [address] [place], [place] [address] Social History Tobacco Use Types Packs/Day Years [...] Electronically signed by Adolph Crowder Conversion Advanced Analytics Associate Romulo at 07/09/2022 10:47 AM CDT documented in this encounter Plan of Treatment Not on file documented as of this encounter Visit Diagnoses Not on filedocumented in this encounter
--- OUTSIDE RECORDS SUMMARY | 2024-11-22 12:32 | XMS_ITS | Encounter Summary ---
Author Organization [employer] ([place], [place], [place], [place]) Address [address] [place] [address] Care Team Providers Care Material Expeditor Name Role Phone Unavailable Primary Care Provider Unavailabl e Encounter Details Date Type Department Care Team (Late st Contact Info) Description 12/23/2020 Transcribed Document [facility] [place] [facility] [place] [address] ProviderJaime MD [address] [place] [id number] Social History Tobacco Use Types Packs/Day Years [...] EDT Chloraseptic Menthol 1.4% topical spray: 5 [place], Oral, [place], Q2H, PRN for Sore Throat, Routine, Start [...] Oral, Q4H phenol 1.4% throat spray 5 [place], Oral, Q2H promethazine 25 mg tab 12.5 [...] HTN, CAD and cancer Procedure history: Cholecystectomy (31905399). Hernia ([id number]). Rotator cuff right ([id number]). Knee left partial ([id number]). right upper thigh boil. lymph node drained from right arm pit. Colonoscopy ([id number]). EGD - Esophagogastroduodenoscopy ([id number]). heart cath. cardiac stent. Social History Patient [...] swelling, No deformity, Normal gait. Integumentary: Warm, Bostic, Intact, No pallor, No rash, WOUND STABLE. [...] then you may give Tylenol 650 mg PO/TX x 1. If no response in 2 [...]
--- OUTSIDE RECORDS SUMMARY | 2024-11-22 12:32 | XMS_ITS | Encounter Summary ---
Author Organization [facility] ([place], [place], [place], [place]) Address [address] [place] [address] Care Team Providers Care Ocean Rescue Lieutenant Name Role Phone Unavailable Primary Care Provider Unavailabl e Encounter Details Date Type Department Care Team (Late st Contact Info) Description 12/16/2020 Transcribed Document [facility] [place] Family Medicine [address] [place] [address] ProviderJaime MD [address] [place], [place] [id number] Social History Tobacco Use Types Packs/Day Years [...] Source : Stated Height Entry Format : Hudspeth Height, Feet : 5 ft(Converted to: 152 cm, 60 Inch) Height, Inches : 9 Inch(Converted to: 0 ft 9 Inch, 22.86 cm) Clinical Height : 175.26 cm Weight Source : Standing scale Weight Entry Format : Hudspeth Clinical Dosing Weight : 96.93 kg Weight, Pounds : 213 lb Weight, Ounces : 4 oz Body Surface Area (BSA) : 2.12 m2 Body Mass Index : 31.6 kg/m2 (HI) [place] Body Weight : 70 kg CIARA WOODS [...] CIARA WOODS RN - 12/16/2020 6:51 EDT [place] Suicide Severity Rating Scale (C-SSRS) CSSRS Past [...] Obtained From : Patient Primary Language : Gabonese Preferred Communication Mode : Verbal Communication Barrier : None Raised Printer Needed : No CIARA WOODS RN - [...]
--- OUTSIDE RECORDS SUMMARY | 2024-11-22 12:32 | XMS_ITS | Clinical Summary ---
Author Organization [facility] Address [address] [place] [address] Care Team Providers Care Scrubbing Machine Operator Name Role Phone Columba Rodríguez APRN Primary Care Provider [phone] Allergies Active Allergy Reactions Criticality Noted Date [...] 2 % ointment 3 Active nystatin (MYCOSTATIN) 685003 UNIT/GM cream 3 Active pioglitazone (ACTOS) 30 [...] Daily. Active Cholecalciferol (Vitamin D3) 1.25 MG (39054 UT) tablet Take 1 tablet by mouth [...] 5 Active cyclobenzaprine (FLEXERIL) 5 MG tablet TAKE 2 TABLETS BY MOUTH 3 TIMES DAILY NEEDED FOR MUSCLE SPASMS 270 tablet 5 Active Active Problems Problem [...] Type Department Care Team Description 10/18/2024 Refill [facility] RHEUMATOLOGY [address] [address] Adrianne Hdez APRN from Last [...] Description 12/13/2024 11:15 AM EDT Office Visit [facility] RHEUMATOLOGY [address] [place] [address] Cash Khanna DO [address] [facility] [address] [place], [place] [id number] Health Maintenance Due Date Last Done Comments [...] 022, 01/31/2019, 01/11/2018, Additional history exists Insurance [facility] Medicare [employer] PPO Care Teams Scrubbing Machine Operator Relationship Specialty Start Date End Date Columba Rodríguez APRN [address] [place] [id number] PCP - General Family Medicine 11/10/23
--- OUTSIDE RECORDS SUMMARY | 2024-11-22 12:32 | XMS_ITS | Encounter Summary ---
Author Organization [employer] ([place], [place], [place]) Address [address] [place] [address] Care Team Providers Care Playground Worker Name Role Phone Unavailable Primary Care Provider Unavailabl e Encounter Details Date Type Department Care Team (Late st Contact Info) Description 12/23/2020 Transcribed Document [facility] [place] [address] [place] [address] ProviderJaime MD [address], [place] [phone] Social History Tobacco Use Types Packs/Day Years [...] knee 12/23/2020 12:00 Atherosclerotic heart disease of [place] coronary artery without angina pectoris 12/23/2020 12:00 [...]
--- OUTSIDE RECORDS SUMMARY | 2024-11-22 12:32 | XMS_ITS | Encounter Summary ---
Author Organization [employer] ([place], [place], [place], [place]) Address [address] [place] [address] Care Team Providers Care Skiver Blockers Name Role Phone Unavailable Primary Care Provider Unavailabl e Encounter Details Date Type Department Care Team (Late st Contact Info) Description 12/23/2020 Transcribed Document [facility] [place] [facility] [place] [address] ProviderJaime MD [facility] [place], [place] [address] Social History Tobacco Use Types Packs/Day Years [...] knee 12/23/2020 12:00 Atherosclerotic heart disease of [place] coronary artery without angina pectoris 12/23/2020 12:00 [...]
--- OUTSIDE RECORDS SUMMARY | 2024-11-22 12:32 | XMS_ITS | Encounter Summary ---
Author Organization [employer] ([place], [place], [place], [place]) Address [address] [place] [address] Care Team Providers Care Still Operator Whiskey Name Role Phone Unavailable Primary Care Provider Unavailabl e Encounter Details Date Type Department Care Team (Late st Contact Info) Description 12/24/2020 Transcribed Document [facility] [place] [facility] [place] [address] ProviderJaime MD [address] [place] [address] [id number] Social History Tobacco Use Types Packs/Day Years [...] right total knee replacement, final condition improved. /[id number] MD RAO Gibbs Jr/DIANNA / RAO / MODL /[id number] documented in this encounter Plan of Treatment Not on file documented as of this encounter Visit Diagnoses Not on filedocumented in this encounter
--- OUTSIDE RECORDS SUMMARY | 2024-11-22 12:32 | XMS_ITS | Referral Summary ---
Author Organization [employer] ([place], [place], [place], [place]) Address [address] [place] [address] Care Team Providers Care Property Site Manager Name Role Phone Unavailable Primary Care [...] Date Milton rded Speak language other than Central African at home Not on file 01/23/2024 Want [...] Plan of Treatment Not on file Insurance [facility] [place] [address]
--- OUTSIDE RECORDS SUMMARY | 2024-11-22 12:32 | XMS_ITS | Encounter Summary ---
Author Organization [employer] ([place], [place]) Address [address] [place] [address] Care Team Providers Care Dress Operator Name Role Phone Unavailable Primary Care Provider Unavailabl e Encounter Details Date Type Department Care Team (Late st Contact Info) Description 12/23/2020 Transcribed Document [facility] [place] [address] [place] [address] ProviderJaime MD [address] [place], [place] [phone] Social History Tobacco Use Types Packs/Day Years [...]
--- OUTSIDE RECORDS SUMMARY | 2024-11-22 12:32 | XMS_ITS | Clinical Summary ---
Author Organization [employer] ([place], [place], [place], [place]) Address [address] [place], [place] [phone] Care Team Providers Care Plant Maintenance Technician Name Role Phone Unavailable Primary Care [...] of Treatment Not on file Insurance [facility] [place] [id number] [facility] MEDICARE ADVANTAGE
--- OUTSIDE RECORDS SUMMARY | 2024-11-22 12:32 | XMS_ITS | Encounter Summary ---
Author Organization [employer] ([place], [place], [place], [place]) Address [address] [place] [address] Care Team Providers Care Local Company Refrigerated Truck Driver Name Role Phone Unavailable Primary Care Provider Unavailabl e Encounter Details Date Type Department Care Team (Late st Contact Info) Description 12/23/2020 Transcribed Document [facility] [place] [facility] [address] ProviderJaime MD [address] [place] [phone] Social History Tobacco Use Types Packs/Day Years [...] Sent to Post Acute Providers : Yes [facility] Quality Web Info Shared w Pt/Fam [...]
--- OUTSIDE RECORDS SUMMARY | 2024-11-22 12:32 | XMS_ITS | Encounter Summary ---
Author Organization [facility] Address [address] [place] [phone] Care Team Providers Care Assistant Loan Processor Name Role Phone Columba Rodríguez APRN Primary Care Provider [phone] Reason for Visit * Reason Comments Med Refill Encounter Details Date Type Department Care Team (Late Contact Info) Description 09/01/2023 Refill [facility] MEDICINE [address] [place] [address] Isai Tran MD [address] [place] [address] Social History Tobacco Use Types Packs/Day Years [...] 11:15 AM EDT Office Visit [facility] RHEUMATOLOGY [address] [place] [address] Cash Khanna DO [address] [facility] [address] [place], [place] [phone] documented as of this encounter Visit Diagnoses Not on filedocumented in this encounter Care Teams Assistant Loan Processor Relationship Specialty Start Date End Date Columba Rodríguez APRN [address] [place] [phone] PCP - General Family Medicine 11/10/23 documented as of this encounter
--- OUTSIDE RECORDS SUMMARY | 2024-11-22 12:32 | XMS_ITS | Encounter Summary ---
Author Organization [employer] ([place], [place], [place], [place]) Address [address] [place] [address] Care Team Providers Care Naval Engineer Name Role Phone Unavailable Primary Care Provider Unavailabl e Encounter Details Date Type Department Care Team (Late st Contact Info) Description 12/09/2020 Transcribed Document [facility] [place] [facility] [place] [address] ProviderJaime MD [address] [place] [phone] Social History Tobacco Use Types Packs/Day Years [...] Appearance CLEAR2 12/09/2020 16:01 EDT Urine Specific Whitt *1.026 12/09/2020 16:01 EDT Urine pH Dipstick [...]
--- OUTSIDE RECORDS SUMMARY | 2024-11-22 12:32 | XMS_ITS | Encounter Summary ---
Author Organization [employer] ([place], [place]) Address [address] [place] [address] Care Team Providers Care Band Builder Name Role Phone Unavailable Primary Care Provider Unavailabl e Encounter Details Date Type Department Care Team (Late st Contact Info) Description 12/23/2020 Transcribed Document [facility] [place] [address] ProviderJaime MD [address] [place], [place] [address] Social History Tobacco Use Types Packs/Day Years [...] EDT Electronically signed by Adolph Crowder Conversion Solar Installation Supervisor Cerner at 07/09/2022 10:43 AM CDT documented in this encounter Plan of Treatment Not on file documented as of this encounter Visit Diagnoses Not on filedocumented in this encounter
--- OUTSIDE RECORDS SUMMARY | 2024-11-22 12:32 | XMS_ITS | Encounter Summary ---
Author Organization [employer] ([place], [place], [place], [place]) Address [address] [place] [address] Care Team Providers Care Solderer Assembler Name Role Phone Unavailable Primary Care Provider Unavailabl e Encounter Details Date Type Department Care Team (Late st Contact Info) Description 12/23/2020 Transcribed Document [facility] [place] [address] [place] [address] ProviderJaime MD [address] [place], [place] [address] Social History Tobacco Use Types Packs/Day Years [...] : Yes Discharge To Care Management : Home/Residential/[facility] or Self Care -01 ANGELA NGUYEN RN [...]
--- OUTSIDE RECORDS SUMMARY | 2024-11-22 12:32 | XMS_ITS | Encounter Summary ---
Author Organization [employer] ([place], [place], [place], [place]) Address [address] [place] [address] Care Team Providers Care Painter Helper Name Role Phone Unavailable Primary Care Provider Unavailabl e Encounter Details Date Type Department Care Team (Late st Contact Info) Description 12/23/2020 Transcribed Document [facility] [place] [facility] [place] [address] ProviderJaime MD [address] [place] [address] Social History Tobacco Use Types Packs/Day [...] Lakesha, [facility] Conversion Audio Technician Cerner at 07/09/2022 10:51 AM CDT documented in this encounter Plan of Treatment Not on file documented as of this encounter Visit Diagnoses Not on filedocumented in this encounter
--- OUTSIDE RECORDS SUMMARY | 2024-11-22 12:32 | XMS_ITS | Encounter Summary ---
Author Organization [employer] ([place], [place]) Address [address] [place] [address] Care Team Providers Care Organ Tuner Name Role Phone Unavailable Primary Care Provider Unavailabl e Encounter Details Date Type Department Care Team (Late st Contact Info) Description 12/23/2020 Transcribed Document [facility] [place] [address] [place] [address] ProviderJaime MD [address] [place] [address] Social History Tobacco Use [...] Source : Measured Height Entry Format : Bruner Height, Feet : 5 ft(Converted to: 152 cm, 60 Inch) Height, Inches : 9 Inch(Converted to: 0 ft 9 Inch, 22.86 cm) Clinical Height : 175.26 cm Weight Source : Standing scale Weight Entry Format : Bruner Clinical Dosing Weight : 96.36 kg Weight, Pounds : 212 lb Body Surface Area (BSA) : 2.12 m2 Body Mass Index : 31.4 kg/m2 (HI) [place] Body Weight : 70 kg Georgie Boyce [...] Georgie Boyce RN - 12/23/2020 6:56 EDT [place] Suicide Severity Rating Scale (C-SSRS) CSSRS Past [...] #2 Relationship : . Primary Language : Tajik Preferred Communication Mode : Verbal Communication Barrier : None Teacher Ballet Needed : No Georgie Boyce RN - [...]
--- OUTSIDE RECORDS SUMMARY | 2024-11-22 12:32 | XMS_ITS | Encounter Summary ---
Author Organization [employer] ([place], [place], [place], [place]) Address [address] [place] [address] Care Team Providers Care Stoker Erector Name Role Phone Unavailable Primary Care Provider Unavailabl e Encounter Details Date Type Department Care Team (Late st Contact Info) Description 12/23/2020 Transcribed Document [facility] [place] [address] [place] [address] ProviderJaime MD [address] [place], [place] [phone] Social History Tobacco Use Types Packs/Day Years [...] III /Sex: 1950 Male Med Rec #: [id number] Physician: KAYLA ZIMMERMAN JR, JR, MD-ORT Financial #: [id number] Pt. Type: O Room/Bed: Admit/Disch: 12/23/20 04:16:00 - [place] [facility] [place] Case Attendance Entry 1 Entry 2 Entry 3 Case Attendee KAYLA ZIMMERMAN JR, JR, TARA MERA APRN,HAYDER KOROMA, LUCIE CHANCEORT Role Performed Surgeon/Proceduralist, FOREST FIRE MANAGEMENT OFFICER/Nurse Linux Admin Convalescent Sitter, First First Time In 12/23/20 07:51:00 12/23/20 [...] 5 Entry 6 Case Attendee Stephan Boyce, PIPELINES SUPERVISOR/UMBRELLA REPAIRER GET ARI[address] ST Peel, Polly, Scub Tech Role Performed Chief Counsel, First Scrub, First Scrub, Second Time In [...] Case Attendee OTHER, ATTENDEE #1 NGOZI PETTY, FOREST FIRE MANAGEMENT OFFICER Role Performed Vendor FOREST FIRE MANAGEMENT OFFICER/Nurse Linux Admin Time In 12/23/20 07:51:00 12/23/20 08:29:00 Time Out 12/23/20 09:55:00 12/23/20 08:41:00 Procedure Knee Total Joint Knee Total Joint Replacement Replacement Other Attendee FOREST [place] FOREST FIRE MANAGEMENT OFFICER BREAK Superficial Wound Closed By: Thom Modified By: HAYDER EASON RN LONGSWORTH, GARY, LUCIE 12/23/20 07:19:17 12/23/20 08:29:30 SJE IntraOp Case Attendance Audit 12/23/20 09:55:23 Senior Unix Administrator: LONGGA Modifier: LONGGA 1 <+> Time Out [...] Knee Total Joint Replacement 12/23/20 08:48:55 Senior Unix Administrator: LONGGA Modifier: LONGGA 8 <+> Time Out 8 <*> Procedure Knee Total Joint Replacement 12/23/20 08:29:30 Senior Unix Administrator: LONGGA Modifier: LONGGA <+> 8 Case Attendee <+> 8 Role Performed <+> 8 Time In <+> 8 Procedure <+> 8 Other Attendee 12/23/20 08:25:18 Senior Unix Administrator: LONGGA Modifier: LONGGA 1 <+> Time In [...] Knee Total Joint Replacement 12/23/20 07:25:50 Senior Unix Administrator: LONGGA Modifier: LONGGA <+> 1 Procedure 2 [...] IntraOp Case Times Audit 12/23/20 09:55:21 Senior Unix Administrator: LONGGA Modifier: LONGGA <+> 1 Out Room Time <+> 1 Stop Time <+> 1 Stop Time 12/23/20 08:21:13 Senior Unix Administrator: LONGGA Modifier: LONGGA <+> 1 Start Time [...] IntraOp Counts Verification Audit 12/23/20 09:01:12 Senior Unix Administrator: LONGGA Modifier: LONGGA <+> 2 Procedure <+> [...] HAYDER EASON, LUCIE, Accompanied by TARA MERA APRN,FOREST FIRE MANAGEMENT OFFICER Last Modified By: HAYDER EASON RN 12/23/20 09:08:10 SJE IntraOp Dressing and Packing Entry 1 Type Dressing Location RIGHT KNEE Wound Dressing Item Papo Supplemental Limb immobilizer, Cold Applications pack Applied By Stepahn Boyce, PIPELINES SUPERVISOR/UMBRELLA REPAIRER Other Comments JONATHAN WOUND DRESSING Last Modified [...] RN 12/23/20 07:24:40 SJE IntraOp General Case Information Systems Architect 1 Case Information OR OR 02 SJE Case Level 1 Room Verified Yes Wound Class I - Clean Specialty Orthopedic Anesthesia Type General ASA Class 3 Diagnosis Preop Diagnosis DEGENERATIVE JOINT DISEASE, RIGHT KNEE Postop Same As Preop Yes Postop Diagnosis DEGENERATIVE JOINT DISEASE, RIGHT KNEE Last Modified By: HAYDER EASON RN 12/23/20 08:27:58 SJE IntraOp General Case Data Audit 12/23/20 08:27:58 Senior Unix Administrator: YVETTE Modifier: LONGGA 1 <*> OR OR [...] ITOTAL JIGS CR ITOTAL ID Identification [id number] Description Implant Quantity 2 1 1 Implant Site RIGHT KNEE RIGHT KNEE RIGHT KNEE Implant Identification Model Number Implant [id number] Identification Serial Number Implant [id number] Identification Lot Number Implant Fontana:Fontana Conformis Conformis Identification Orthopaedics Right Of Way Appraiser Name: Implant [id number] Identification Catalog Number Implant Size Implant Has an Yes Yes Yes Expiration Date Implant Expiration 01/24/22 09/23/22 12/24/21 Date Wasted Radioactive Material Time Implanted Tissue Implant Continue for Tissue Implant Documentation Tissue Identification Number Graft Prep Per Right Of Way Appraiser Instructions: Tissue Preparation Method: Reconstitution Solution: Reconstitution Solution Lot Number Reconstitution Solution Expiration Date: Thawing Solution Thawing Solution Lot Number Thawing Solution Expiration Date Preparation Materials, Other Preparation Materials, Other Lot Number Preparation Materials, Other Expiration Date Tissue Prepared/Processed By Right Of Way Appraiser Paperwork Completed Implant Type Comment Last Modified [...] KT CR FULL ITOTAL ID Identification KLEVER [id number] Description Implant Quantity 1 1 1 Implant Site RIGHT KNEE RIGHT KNEE RIGHT KNEE Implant Identification Model Number Implant [id number] Identification Serial Number Implant Identification Lot Number Implant Conformis Conformis Conformis Identification Right Of Way Appraiser Name: Implant [id number] Identification Catalog Number Implant Size Implant Has an Yes Yes Yes Expiration Date Implant Expiration 12/24/21 12/24/21 12/24/21 Date Wasted Radioactive Material Time Implanted Tissue Implant Continue for Tissue Implant Documentation Tissue Identification Number Graft Prep Per Right Of Way Appraiser Instructions: Tissue Preparation Method: Reconstitution Solution: Reconstitution Solution Lot Number Reconstitution Solution Expiration Date: Thawing Solution Thawing Solution Lot Number Thawing Solution Expiration Date Preparation Materials, Other Preparation Materials, Other Lot Number Preparation Materials, Other Expiration Date Tissue Prepared/Processed By Right Of Way Appraiser Paperwork Completed Implant Type Comment Last Modified By: HAYDER EASON RN LONGSWORTH, GARY, RN LONGSWORTH, GARY, RN 12/23/20 08:49:46 12/23/20 08:51:06 12/23/20 08:52:02 SJE IntraOp Implant Log Audit 12/23/20 08:52:02 Senior Unix Administrator: LONGGA Modifier: LONGGA <+> 6 Implant Identification Description <+> 6 Implant Identification Serial Number <+> [address] Implant [address] Appraiser Name: <+> 6 Implant Expiration Date <+> 6 Implant Site <+> 6 Implant Quantity <+> 6 Implant Identification Catalog Number <+> 6 Implant Type <+> 6 Implant Has an Expiration Date <+> 6 Type 12/23/20 08:51:06 Senior Unix Administrator: LONGGA Modifier: LONGGA <+> 5 Implant Identification Description <+> 5 Implant Identification Serial Number <+> 5 Implant [address] Of [address] Appraiser Name: <+> 5 Implant Expiration Date <+> 5 Implant Site <+> 5 Implant Quantity <+> 5 Implant Identification Catalog Number <+> 5 Implant Type <+> 5 Implant Has an Expiration Date <+> 5 Type 12/23/20 08:49:46 Senior Unix Administrator: LONGGA Modifier: LONGGA <+> 4 Implant Identification Description <+> 4 Implant Identification Serial Number <+> 4 Implant Identification Right Of Way Appraiser Name: <+> 4 Implant Expiration Date <+> 4 Implant Site <+> 4 Implant Quantity <+> 4 Implant Identification Catalog Number <+> 4 Implant Type <+> 4 Implant Has an Expiration Date <+> 4 Type 12/23/20 08:48:24 Senior Unix Administrator: LONGGA Modifier: LONGGA <+> 3 Implant Expiration Date 12/23/20 08:48:23 Senior Unix Administrator: LONGGA Modifier: LONGGA <+> 3 Implant Identification Description <+> 3 Implant Identification Serial Number <+> 3 Implant Identification Right Of Way Appraiser Name: <+> 3 Implant Site <+> 3 Implant Quantity <+> 3 Implant Identification Catalog Number <+> 3 Implant Type <+> 3 Implant Has an Expiration Date <+> 3 Type 12/23/20 08:47:19 Senior Unix Administrator: LONGGA Modifier: LONGGA <+> 2 Implant Identification Description <+> 2 Implant Identification Lot Number <+> [address] Appraiser Name: <+> 2 Implant Expiration Date <+> [...] w/ vancomycin 1Gm vial - epinephrine 1:100,000 [id number] 20ml vial - [id number] Combo Med List 4 - Combo Med [...] IntraOp Medication Admin Audit 12/23/20 08:39:42 Senior Unix Administrator: LONGGA Modifier: LONGGA <+> 5 Medication/Irrigant <+> [...] JR, MD-ORT, SAMARIA, TARA, URSULA,PAPO, Austen, Stephan, PIPELINES SUPERVISOR/UMBRELLA REPAIRER Position Verified Positioning Yes Verified by Anesthesia [...] IntraOp Surgical Procedures Audit 12/23/20 09:51:54 Senior Unix Administrator: LONGGA Modifier: LONGGA 1 <*> Procedure Knee Total Joint Replacement 1 <+> Stop 12/23/20 08:21:22 Senior Unix Administrator: LONGGA Modifier: LONGGA <+> 1 Start SJE IntraOp Temp Regulation Devices Entry 1 Temp Regulation Temperature Warm blankets Regulation Device Temperature Upper body Regulation Site Temperature SAMARIA, TARA, REAL ESTATE ATTORNEY,FOREST FIRE MANAGEMENT OFFICER Regulation Device Applied by Last Modified By: [...] IntraOp Time Out Audit 12/23/20 08:31:31 Senior Unix Administrator: YVETTE Modifier: YVETTE 1 <+> Surgeon 1 [...] Padded Under Cuff Applied By Stephan Boyce, KATHI/UMBRELLA REPAIRER Times Start Time 12/23/20 08:10:00 Stop Time 12/23/20 08:59:00 Last Modified By: HAYDER EASON RN 12/23/20 09:00:54 SJE IntraOp Tourniquet Audit 12/23/20 09:00:54 Senior Unix Administrator: YVETTE Modifier: YVETTE <+> 1 Stop Time Case Comments <None> Finalized By: HAYDER EASON, RN Document Signatures Signed By: HAYDER EASON RN 12/23/20 09:59 Electronically signed by Lakesha [facility] Conversion Biller Cerner at 07/09/2022 10:43 AM CDT documented in this encounter Plan of Treatment Not on file documented as of this encounter Visit Diagnoses Not on filedocumented in this encounter
== END 2024-11-21 23:59 | disposition home or self-care (01) ==
LOC: LAB.DROPOF 11-22 12:29
PROVIDERS: PCP Family Medicine; Visit Provider Family Medicine
DX: R05.9 Cough, unspecified (principal)
CPT/HCPCS: 87636

== ENCOUNTER 2024-11-27 10:29 | Outpatient (CLI) | payer MEDICARE, SELFPAY ==
--- NOTE | 2024-11-27 10:30 | MR_ITS ---
APPROVED REPORT Betting Agency Manager: CLINICAL INDICATION Evaluation for infiltrative cardiomyopathy TECHNIQUE Image Acquisition: Cardiac magnetic resonance (CMR) was performed on Siemens Espree MRI 1.5T scanner. Software platform sequences were performed using the Siem[employer] MR B19 platform. A set of three-plane, low-resolution, large oucro-ub-qeed localizers were initially acquired. Then axial, coronal, sagittal TrueFISP, as well as axial HASTE images, were obtained. These were followed by gated TrueFISP breathold cinematic sequences obtained in the short axis with 8 mm slices and 2 mm gaps, 2-chamber (vertical long axis), 3-chamber, 4-chamber (horizontal long axis). A bolus of contrast was injected intravenously with first-pass sequences obtained in the short axis and four-chamber planes. After approximately 10 minutes, a TI sales clerk sequence was performed to determine the optimal TI time. Using the optimized TI time, delayed contrast enhancement segmented inversion???recovery TurboFLASH sequences were obtained in the short axis, 2-chamber, 3-chamber, and 4-chamber projections. 2D-velocity phase mapping was performed. Functional parameters were calculated by offline analysis on an independent workstation (Kinesio Capture Imaging Platform, CVIScurri). Contrast: ProHance??? (Gadoteridol) FINDINGS MORPHOLOGY AND FUNCTION Left ventricle: The left ventricle is normal in size. The indexed left ventricular end-diastolic volume (LVEDVi) is 77 ml/m2 (reference range 57-105 ml/m2 in males, 56-96 ml/m2 in females). Low-normal left ventricular systolic function is present. There is normal left ventricular wall thickness. There are no regional wall motion abnormalities noted. LVEF is calculated at 51.6% (reference range 57-77%). Right ventricle: The right ventricle is normal in size. The indexed right ventricular end-diastolic volume (RVEDVi) is 66 ml/m2 (reference range 61-121 ml/m2 in males, 48-112 ml/m2 in females). Normal right ventricular systolic function is present. RVEF is calculated at 54.2% (reference range 52-72% in males, 51-71% in females). Atria: The left atrium is normal in size. The maximum indexed left atrial volume is 24 ml/m2 (reference range 26-52 ml/m2 in males, 27-53 ml/m2 in females). The right atrium is normal in size. The maximum indexed right atrial volume is 31 ml/m2 (reference range 18-90 ml/m2). Aorta: The diameter of the aortic annulus is normal, measuring 26 mm (coronal view reference range 21-30 mm in males, 19-27 mm in females). The diameter of the aortic sinus is normal, measuring 32 mm (coronal view reference range 25-42 mm in males, 24-36 mm in females). The diameter of the sinotubular junction is normal, measuring 28 mm (coronal view reference range 18-32 mm in males, 18-28 mm in females). The diameters of the ascending and descending thoracic aorta are normal. Main pulmonary artery: The main pulmonary artery diameter is normal. Pericardium: The pericardial thickness is normal. The pericardial thickness measures 1.0 mm (normal < 4.0 mm). There is no pericardial effusion. VALVES The valvular morphologies in the visualized sequences appear normal. There is no significant valvular stenosis or regurgitation of the mitral, aortic, tricuspid, or pulmonic valve noted visually. Systolic anterior motion of the mitral valve is not visualized. Ratio of pulmonary to systemic flow, Qp:Qs ratio = 1.14 (normal < or = 1.2, hemodynamically significant shunt > 1.5), demonstrating no evidence of hemodynamically significant shunt. TISSUE CHARACTERIZATION Resting Perfusion: Normal myocardial blood flow at rest. No evidence of resting hypoperfusion. Myocardial Fibrosis and/or edema: Normal gadolinium kinetics are present. No evidence of late gadolinium enhancement is noted, consistent with absence of myocardial scarring, infarction, or necrosis. T2-weighted imaging demonstrates no evidence of myocardial edema or inflammation. OTHER No other significant findings are noted. However, this exam is focused on the cardiac structure and function. IMPRESSION Normal LV size with low-normal LV systolic function. LVEDVi= 77 ml/m2 and LVEF= 51.6%. Normal RV size with normal RV systolic function. RVEDVi= 66 ml/m2 and RVEF= 54.2%. No atrial enlargement. No CMR evidence of myocardial scarring, infarction, or necrosis. No evidence of myocardial edema or inflammation. Perfusion analysis demonstrates normal blood flow at rest with no evidence of resting hypoperfusion. Ratio of pulmonary to systemic flow, Qp:Qs ratio = 1.14 (normal < or = 1.2, hemodynamically significant shunt > 1.5), demonstrating no evidence of hemodynamically significant shunt. COMPARISON None CRITICAL RESULT None COMMUNICATION The above findings were relayed to the patient at the time of the routine outpatient cardiology follow-up visit, prior to dictation of this report. The findings of this cardiac MR were reviewed, reported, and signed by Abiodun Mckeon MD (Stripping Shovel Operator). Conclusion Electronically signed by : Amara Mckeon MD 12/04/2024 12:06:43
--- OUTSIDE RECORDS SUMMARY | 2024-11-27 10:31 | XMS_ITS | Clinical Summary ---
Author Organization [employer] ([place], [place], [place], [place]) Address [address] [place], [place] [id number] Care Team Providers Care Auricular Detoxification Specialist Name Role Phone Unavailable Primary Care [...] Date Milton rded Speak language other than Indonesian at home Not on file 01/23/2024 Want [...] of Treatment Not on file Insurance [facility] [place] [id number] [facility] MEDICARE ADVANTAGE
--- OUTSIDE RECORDS SUMMARY | 2024-11-27 10:31 | XMS_ITS | Encounter Summary ---
Author Organization [employer] ([place], [place], [place], [place]) Address [address] [place] [address] Care Team Providers Care Grain Handler Name Role Phone Unavailable Primary Care Provider Unavailabl e Encounter Details Date Type Department Care Team (Late st Contact Info) Description 12/24/2020 Transcribed Document [facility] [place] [facility] [place] [address] ProviderJaime MD [address] [place] [address] [id number] Social History Tobacco Use Types Packs/Day Years [...] right total knee replacement, final condition improved. /[id number] MD ROA Gibbs Jr/DIANNA / RAO / MODL /[id number] documented in this encounter Plan of Treatment Not on file documented as of this encounter Visit Diagnoses Not on filedocumented in this encounter
--- OUTSIDE RECORDS SUMMARY | 2024-11-27 10:32 | XMS_ITS | Encounter Summary ---
Author Organization [employer] ([place], [place], [place]) Address [address] [place] [address] Care Team Providers Care Karate Instructor Name Role Phone Unavailable Primary Care Provider Unavailabl e Encounter Details Date Type Department Care Team (Late st Contact Info) Description 12/16/2020 Transcribed Document [facility] [place] [address] [place] [address] ProviderJaime MD [address] [place], [place] [id number] Social History Tobacco Use Types Packs/Day Years [...] Source : Stated Height Entry Format : [place]ger Height, Feet : 5 ft(Converted to: 152 cm, 60 Inch) Height, Inches : 9 Inch(Converted to: 0 ft 9 Inch, 22.86 cm) Clinical Height : 175.26 cm Weight Source : Standing scale Weight Entry Format : Badger Clinical Dosing Weight : 96.93 kg Weight, Pounds : 213 lb Weight, Ounces : 4 oz Body Surface Area (BSA) : 2.12 m2 Body Mass Index : 31.6 kg/m2 (HI) [place] Body Weight : 70 kg CIARA WOODS [...] CIARA WOODS RN - 12/16/2020 6:51 EDT [place] Suicide Severity Rating Scale (C-SSRS) CSSRS Past [...] Mode : Verbal Communication Barrier : None Supervisor Stage Carpentry Needed : No CIARA WOODS RN - [...]
--- OUTSIDE RECORDS SUMMARY | 2024-11-27 10:32 | XMS_ITS | Encounter Summary ---
Author Organization [employer] ([place], [place], [place]) Address [address] [place] [address] Care Team Providers Care Finish Sander Name Role Phone Unavailable Primary Care Provider Unavailabl e Encounter Details Date Type Department Care Team (Late st Contact Info) Description 12/23/2020 Transcribed Document [facility] [place] [address] [place] [address] ProviderJaime MD [address] [place] [address] Social History Tobacco Use [...] Source : Measured Height Entry Format : [place] Height, Feet : 5 ft(Converted to: 152 cm, 60 Inch) Height, Inches : 9 Inch(Converted to: 0 ft 9 Inch, 22.86 cm) Clinical Height : 175.26 cm Weight Source : Standing scale Weight Entry Format : [place] Clinical Dosing Weight : 96.36 kg Weight, Pounds : 212 lb Body Surface Area (BSA) : 2.12 m2 Body Mass Index : 31.4 kg/m2 (HI) [place] Body Weight : 70 kg Georgie Boyce [...] Georgie Boyce RN - 12/23/2020 6:56 EDT [place] Suicide Severity Rating Scale (C-SSRS) CSSRS Past [...] #2 Relationship : . Primary Language : Korean Preferred Communication Mode : Verbal Communication Barrier : None Mental Health Technician Needed : No Georgie Boyce RN [...]
--- OUTSIDE RECORDS SUMMARY | 2024-11-27 10:32 | XMS_ITS | Encounter Summary ---
Author Organization [employer] ([place], [place], [place], [place]) Address [address] [place] [address] Care Team Providers Care Senior Benefits Specialist Name Role Phone Unavailable Primary Care Provider Unavailabl e Encounter Details Date Type Department Care Team (Late st Contact Info) Description 12/08/2020 Transcribed Document [facility] [place] Family Medicine [address] [place] [address] ProviderJiame MD [address] [place], [place] [address] Social History Tobacco Use Types Packs/Day Years [...] Health Plan: [employer] MEDICARE REPL Policy Number: [id number] Authorization Number: Insurance Primary Name : [employer] MEDICARE REPL Policy Number: [id number] Authorization Status-Primary : Opo status approv Authorized Service Begin Date-Primary : 12/16/2020 EDT Observation Authorization Nbr-Primary : [id number] Authorization Comments-Primary : [employer] Medicare approved for outpt per availity Historical Authorization Comments-Primary : No Authorization Comments Found ROLANDO TABARES RN-Utilization Review - 12/08/2020 15:21 EDT Electronically signed by Lakesha [facility] Conversion Clinical Laboratory Technologist Cerner at 07/09/2022 10:42 AM CDT documented in this encounter Plan of Treatment Not on file documented as of this encounter Visit Diagnoses Not on filedocumented in this encounter
--- OUTSIDE RECORDS SUMMARY | 2024-11-27 10:32 | XMS_ITS | Encounter Summary ---
Author Organization [facility] ([place], [place]) Address [address] [place] [address] Care Team Providers Care Bird Raiser Name Role Phone Unavailable Primary Care Provider Unavailabl e Reason for Referral * Consultation (Routine) - Closed Specialty Diagnoses / Procedures Referred By Mitchell dela cruz Referred To Contact Neurology Diagnoses Seizure (HCC) Kirsten Gates [address] [place] [address] Phone: tel: Mac Leonard MD [address] [facility] [address] [place] [address] Phone: tel: fax: Referral ID Status Reason Start Date Expiration Date V isits Requested Visits Authorized [id number] Closed Specialty Services Required 01/03/2024 01/02/2025 1 1 Encounter Details Date Type Department Care Team (Late st Contact Info) Description 01/03/2024 Outside Orders [facility] Neurology [address] [facility] [address] [place] [address] [place] [address] Seizure (HCC) (Primary Dx) Social History Tobacco [...]
--- OUTSIDE RECORDS SUMMARY | 2024-11-27 10:32 | XMS_ITS | Encounter Summary ---
Author Organization [employer] ([place], [place], [place], [place]) Address [address] [place] [address] Care Team Providers Care Registry Np Name Role Phone Unavailable Primary Care Provider Unavailabl e Encounter Details Date Type Department Care Team (Late st Contact Info) Description 12/23/2020 Transcribed Document [facility] [place] [facility] [place] [address] ProviderJaime MD [address] [place] [address] Social History Tobacco Use Types Packs/Day [...]
--- OUTSIDE RECORDS SUMMARY | 2024-11-27 10:32 | XMS_ITS | Encounter Summary ---
Author Organization [facility] Address [address] [place] [address] Care Team Providers Care Garment Tag Stringer Name Role Phone Columba Rodríguez APRN Primary Care Provider [phone] Shay Biggs MD Unavailable [phone] Encounter Details Date Type Department Care Team (Late st Contact Info) Description 11/04/2024 Telephone [facility] [address], [address] [place] [address] Baldemar Gibbs MD [address] [place] [address] Social History Tobacco Use Types [...] on filedocumented in this encounter Care Teams Garment Tag Stringer Relationship Specialty Start Date End Date Columba Rodríguez APRN [address] [place] [address] FreedomDENISA [id number] PCP - General 11/04/24 Shay Biggs MD [address] [place] [address] Referring Physician Cardiology 11/04/24 documented as of this encounter
--- OUTSIDE RECORDS SUMMARY | 2024-11-27 10:32 | XMS_ITS | Encounter Summary ---
Author Organization [employer] ([place], [place], [place], [place]) Address [address] [place] [address] Care Team Providers Care Washery Engineer Name Role Phone Unavailable Primary Care Provider Unavailabl e Encounter Details Date Type Department Care Team (Late st Contact Info) Description 12/23/2020 Transcribed Document [facility] [place] [address] ProviderJaime MD [facility] [place], [place] [address] Social History Tobacco Use Types Packs/Day Years [...] 12/23/2020 12:00 Atherosclerotic heart disease of [place] coronary artery without angina pectoris 12/23/2020 12:00 [...]
--- OUTSIDE RECORDS SUMMARY | 2024-11-27 10:32 | XMS_ITS | Encounter Summary ---
Author Organization [employer] ([place], [place], [place], [place]) Address [address] [place] [address] Care Team Providers Care Air Compressor Engineer Name Role Phone Unavailable Primary Care Provider Unavailabl e Encounter Details Date Type Department Care Team (Late st Contact Info) Description 12/23/2020 Transcribed Document [facility] [place] Medicine [place] [address] ProviderJaime MD [address] [place] [address] [id number] Social History Tobacco Use Types Packs/Day Years [...] EDT Chloraseptic Menthol 1.4% topical spray: 5 Babcock, Oral, Babcock, Q2H, PRN for Sore Throat, Routine, Start [...] Oral, Q4H phenol 1.4% throat spray 5 Babcock, Oral, Q2H promethazine 25 mg tab 12.5 [...] HTN, CAD and cancer Procedure history: Cholecystectomy (58392499). Hernia ([id number]). Rotator cuff right ([id number]). Knee left partial ([id number]). right upper thigh boil. lymph node drained from right arm pit. Colonoscopy ([id number]). EGD - Esophagogastroduodenoscopy ([id number]). heart cath. cardiac stent. Social History Patient [...] swelling, No deformity, Normal gait. Integumentary: Warm, [place], Intact, No pallor, No rash, WOUND STABLE. [...] then you may give Tylenol 650 mg PO/SC x 1. If no response in 2 [...]
--- OUTSIDE RECORDS SUMMARY | 2024-11-27 10:32 | XMS_ITS | Encounter Summary ---
Author Organization [employer] ([place], [place], [place]) Address [address] [place] [address] Care Team Providers Care Representative Government Relations Name Role Phone Unavailable Primary Care Provider Unavailabl e Encounter Details Date Type Department Care Team (Late st Contact Info) Description 12/23/2020 Transcribed Document [facility] [place] [address] [place] [address] ProviderJaime MD [address] [place], [place] [phone] Social History Tobacco Use Types Packs/Day Years [...] III /Sex: 1950 Male Med Rec #: [id number] Physician: KAYLA ZIMMERMAN JR, JR, MD-ORT Financial #: [id number] Pt. Type: O Room/Bed: Admit/Disch: 12/23/20 04:16:00 [...] RN 12/23/20 14:04 Electronically signed by Lakesha [facility] Conversion Product Marketing Engineer Cerner at 07/09/2022 10:45 AM CDT documented in this encounter Plan of Treatment Not on file documented as of this encounter Visit Diagnoses Not on filedocumented in this encounter
--- OUTSIDE RECORDS SUMMARY | 2024-11-27 10:32 | XMS_ITS | Encounter Summary ---
Author Organization [employer] ([place], [place], [place], [place]) Address [address] [place] [address] Care Team Providers Care Field Training Agent Name Role Phone Unavailable Primary Care Provider Unavailabl e Encounter Details Date Type Department Care Team (Late st Contact Info) Description 12/23/2020 Transcribed Document [facility] [place] Family Medicine [address] [place] [address] ProviderJaime MD [address] [place], [place] [id number] Social History Tobacco Use Types Packs/Day Years [...] III /Sex: 1950 Male Med Rec #: [id number] Physician: KAYLA ZIMMERMAN JR, JR, MD-ORT Financial #: [id number] Pt. Type: O Room/Bed: Admit/Disch: 12/23/20 04:16:00 - Institution: [facility] [place] PreOp Case Times Entry 1 In Preop 12/23/20 05:15:00 Ready for Holding n/a Room Patient Ready for 12/23/20 06:42:00 Surgery Patient Out of Preop 12/23/20 07:50:00 Patient Out of n/a Holding Room Last Modified By: Aden Boyce RN 12/23/20 07:46:17 [facility] PreOp Case Times Audit 12/23/20 07:46:17 Mortgage Coordinator: BLANKDanny Modifier: ADENVERNADanny <+> 1 Patient Out of Preop Finalized By: Aden Boyce, RN Document Signatures Signed By: Aden Boyce RN 12/23/20 07:46 documented in this encounter Plan of Treatment Not on file documented as of this encounter Visit Diagnoses Not on filedocumented in this encounter
--- OUTSIDE RECORDS SUMMARY | 2024-11-27 10:32 | XMS_ITS | Encounter Summary ---
Author Organization [employer] ([place], [place], [place], [place]) Address [address] [place] [address] Care Team Providers Care Paradichlorobenzene Tender Name Role Phone Unavailable Primary Care Provider Unavailabl e Encounter Details Date Type Department Care Team (Late st Contact Info) Description 12/09/2020 Transcribed Document [facility] [place] [address] [place] [address] ProviderJaime MD [address] [place], [place] 8034[address] Social History Tobacco Use Types Packs/Day Years [...]
--- OUTSIDE RECORDS SUMMARY | 2024-11-27 10:32 | XMS_ITS | Clinical Summary ---
Author Organization [facility] Address [address] [place] [address] Care Team Providers Care Lumber Sticker Name Role Phone Columba Rodríguez APRN Primary Care Provider [phone] Allergies Active Allergy Reactions Criticality Noted Date [...] 2 % ointment 3 Active nystatin (MYCOSTATIN) 511880 UNIT/GM cream 3 Active pioglitazone (ACTOS) 30 [...] Daily. Active Cholecalciferol (Vitamin D3) 1.25 MG (98320 UT) tablet Take 1 tablet by mouth [...] Type Department Care Team Description 10/18/2024 Refill [facility] RHE[facility]ATOLOG[facility] [address] [address] Adrianne Hdez APRN from Last [...] Description 12/13/2024 11:15 AM EDT Office Visit [facility] RHEUMAT[facility] [address] [place] [address] Cash Khanna DO [address] [facility] [address] [place], [place] [phone] Health Maintenance Due Date Last Done Comments [...] 022, 01/31/2019, 01/11/2018, Additional history exists Insurance [facility] Medicare [employer] PPO Care Teams Lumber Sticker Relationship Specialty Start Date End Date Columba Rodríguez APRN [address] [place] [address] PCP - General Family Medicine 11/10/23
--- OUTSIDE RECORDS SUMMARY | 2024-11-27 10:32 | XMS_ITS | Encounter Summary ---
Author Organization [facility] Address [address] [place] [id number] Care Team Providers Care Interior Design Principal Name Role Phone Columba Rodríguez APRN Primary Care Provider [phone] Reason for Visit * Reason Comments Med Refill Encounter Details Date Type Department Care Team (Late Contact Info) Description 09/01/2023 Refill [facility] [address] [place] [address] Isai Tran MD [address] [place] [address] Social History Tobacco Use Types Packs/Day Years [...] Description 12/13/2024 11:15 AM EDT Office Visit [facility] RHEUM[facility] [address] [place] [address] Cash Khanna DO [address] [facility] [address] [place], [place] [phone] documented as of this encounter Visit Diagnoses Not on filedocumented in this encounter Care Teams Interior Design Principal Relationship Specialty Start Date End Date Columba Rodríguez APRN [address] [place] [phone] PCP - General Family Medicine 11/10/23 documented as of this encounter
--- OUTSIDE RECORDS SUMMARY | 2024-11-27 10:32 | XMS_ITS | Encounter Summary ---
Author Organization [employer] ([place], [place], [place], [place]) Address [address] [place] [address] Care Team Providers Care Mushroom Press Operator Name Role Phone Unavailable Primary Care Provider Unavailabl e Encounter Details Date Type Department Care Team (Late st Contact Info) Description 12/16/2020 Transcribed Document [facility] [place] [facility] [place] [address] ProviderJaime MD [address] [place], [place] 271681 Social History Tobacco Use Types Packs/Day Years [...]
--- OUTSIDE RECORDS SUMMARY | 2024-11-27 10:32 | XMS_ITS | Encounter Summary ---
Author Organization [employer] ([place], [place], [place], [place]) Address [address] [place] [address] Care Team Providers Care Health And Fitness Instructor Name Role Phone Unavailable Primary Care Provider Unavailabl e Encounter Details Date Type Department Care Team (Late st Contact Info) Description 12/23/[address] [facility] [place] [address] [place] [address] ProviderJaime MD [address] [place], [place] [phone] Social History Tobacco Use Types Packs/Day Years [...] III /Sex: 1950 Male Med Rec #: [id number] Physician: KAYLA ZIMMERMAN JR, JR, MD-ORT Financial #: [id number] Pt. Type: O Room/Bed: Admit/Disch: 12/23/20 04:16:00 - Institution: [facility] OR PACU Case Times Entry 1 In PACU I 12/23/20 09:56:00 Ready for PACU 12/23/20 11:12:00 Discharge Discharge from PACU 12/23/20 11:12:00 I Last Modified By: Janene Helm RN 12/23/20 11:16:01 [facility] Main OR PACU Case Times Audit 12/23/20 11:16:01 Laborer Wrecking And Salvaging: KINZA Modifier: KINZA 1 <*> Ready for PACU Discharge 12/23/20 10:30:00 1 <+> Discharge from PACU I Finalized By: Janene Helm RN Document Signatures Signed By: Janene Helm RN 12/23/20 11:16 documented in this encounter Plan of Treatment Not on file documented as of this encounter Visit Diagnoses Not on filedocumented in this encounter
--- OUTSIDE RECORDS SUMMARY | 2024-11-27 10:32 | XMS_ITS | Encounter Summary ---
Author Organization [employer] ([place], [place], [place], [place]) Address [address] [place] [address] Care Team Providers Care Press Tool Maker Name Role Phone Unavailable Primary Care Provider Unavailabl e Encounter Details Date Type Department Care Team (Late st Contact Info) Description 12/23/2020 Transcribed Document [facility] [place] [address] [place] [address] ProviderJaime MD [address] [place], [place] 396691 Social History Tobacco Use Types Packs/Day Years [...] : Yes Discharge To Care Management : Home/Residential/Intermediate or Self Care -01 ANGELA NGUYEN RN [...]
--- OUTSIDE RECORDS SUMMARY | 2024-11-27 10:32 | XMS_ITS | Encounter Summary ---
Author Organization [employer] ([place], [place], [place], [place]) Address [address] [place] [address] Care Team Providers Care Bakery And Deli Sales Manager Name Role Phone Unavailable Primary Care Provider Unavailabl e Encounter Details Date Type Department Care Team (Late st Contact Info) Description 12/23/2020 Transcribed Document [facility] [place] [facility] [place] [address] ProviderJaime MD [address] [place] [address] [id number] Social History Tobacco Use Types Packs/Day Years [...] Sent to Post Acute Providers : Yes [facility] Quality Web Info Shared w [...]
--- OUTSIDE RECORDS SUMMARY | 2024-11-27 10:32 | XMS_ITS | Referral Summary ---
Author Organization [employer] ([place], [place], [place], [place]) Address [address] [place], [place] [address] Care Team Providers Care Rabbit Dresser Name Role Phone Unavailable Primary Care Provider [...] Date Milton rded Speak language other than Slovak at home Not on file 01/23/2024 Want [...] Plan of Treatment Not on file Insurance [facility] [address]
--- OUTSIDE RECORDS SUMMARY | 2024-11-27 10:32 | XMS_ITS | Encounter Summary ---
Author Organization [employer] ([place], [place], [place], [place]) Address [address] [place] [address] Care Team Providers Care Bindery Operator Name Role Phone Unavailable Primary Care Provider Unavailabl e Encounter Details Date Type Department Care Team (Late st Contact Info) Description 12/23/2020 Transcribed Document [facility] [place] [address] [place] [address] ProviderJaime MD [address] [place] [address] Social History Tobacco Use Types Packs/Day Years Used Date Smoking Tobacco: Never Assessed Sex and Gender Information Value Date Recorded Sex Assigned at Not on file Legal Sex Male 5:28 PM CDT Gender Identity Not on file Sexual Orientation Not on file documented as of this encounter Miscellaneous Notes * Cerner Conversion Note - Jaime ProviderMD - 12/23/2020 1:22 [place] [address] AYLEEN BLACK III :1950 Visit Time:12/23/2020 What [...] then 6 days after surgery [facility] Physical Therapy Home Health Services: [facility] [...] When 12/29/2020 09:45 AM EDT Where: [address] [facility] 2ND [place] [address] Medications What How Much When Instructions Next [...] or 4 frozen water bottles in the [facility]. Continue to use Incentive Spirometer [...] Barley. Bulgur wheat. Millet. Bran muffins. Popcorn. [place] wafer crackers. Vegetables Sweet potatoes. Spinach. Kale. Artichokes. Cabbage. Broccoli. Green peas. Carrots. Squash. Fruits Berries. Pears. Apples. Oranges. Avocados. Prunes and raisins. Dried figs. Meats and Other Protein Sources [place], kidney, amador, and soy beans. Split peas. [...] 1 katy has 11 g of protein. [place] seeds ??? 1 oz has 5.5 g [...] the floor. Place frequently used items in nfxz-ut-zljeu places Keep electrical cables out of the [...] ? Using the bathroom. ? Using household bindery worker or toxic chemicals. ? Touching or taking [...] activities are safe for you. ??? Take pfzi-bhq-irrhudq and prescription medicines only as told by [...] provider. Document Revised: 03/16/2018 Document Reviewed: 10/27/2017 [employer] Patient Education ?? 2020 T[employer]is. acetaminophen (oral) (a SEET a MIN oh fen) Actamin, Anacin AF, Aurophen, Bromo Grayling, Children's Tylenol, Mapap, M-Pap, Pharbetol, Silapap Childrens, [...] is a pain reliever and a fever float tender. There are many brands and forms of [...] may report side effects to FDA at 1-678-IGQ-5657. What other drugs will affect acetaminophen? Other drugs may affect acetaminophen, including prescription and wdra-snv-hahorfk medicines, vitamins, and herbal products. Tell your [...] to ensure that the information provided by [employer]. ('Mult[employer]') is accurate, up-to-date, and complete, but no guarantee is made to that effect. Drug information contained herein may be time sensitive. [employer] information has been compiled for use by healthcare practitioners and consumers in the [place] and therefore [employer] does not warrant that uses outside of the [place] are appropriate, unless specifically indicated otherwise. [employer]'s drug information does not endorse drugs, diagnose patients or recommend therapy. [facility] drug information is an informational resource designed [...] effective or appropriate for any given patient. [facility] does not assume any responsibility for any aspect of healthcare administered with the aid of information [facility] provides. The information contained herein is not intended to cover all possible uses, directions, precautions, warnings, drug interactions, allergic reactions, or adverse effects. If you have questions about the drugs you are taking, check with your doctor, nurse or pharmacist. Copyright 4331-7207 [facility]. Version: 21.. Revision Date: 11/01/2019. aspirin (oral) ( pir in) Arthritis Pain, Aspi-Cor, Aspir-Low, Nusrat Plus, Durlaza, Ecotrin, Miniprin, Vazalore What is the most important information I should know about aspirin? Aspirin can cause Tonia's syndrome, a serious and sometimes fatal condition in children. What is aspirin? Aspirin is a salicylate (ho-NGQ-rm-ate) that is used to treat pain, and [...] may report side effects to FDA at 9-756-NRQ-4917. What other drugs will affect aspirin? Ask [...] drugs may affect aspirin, including prescription and cich-qgs-bzllkkn medicines, vitamins, and herbal products. Not all [...] to ensure that the information provided by [employer]. ('[employer]') is accurate, up-to-date, and complete, but no guarantee is made to that effect. Drug information contained herein may be time sensitive. [employer] information has been compiled for use by healthcare practitioners and consumers in the [place] and therefore [employer] does not warrant that uses outside of the [place] are appropriate, unless specifically indicated otherwise. [employer] drug information does not endorse drugs, diagnose patients or recommend therapy. [employer] drug information is an informational resource designed [...] effective or appropriate for any given patient. [employer] does not assume any responsibility for any aspect of healthcare administered with the aid of information [facility] provides. The information contained herein is not intended to cover all possible uses, directions, precautions, warnings, drug interactions, allergic reactions, or adverse effects. If you have questions about the drugs you are taking, check with your doctor, nurse or pharmacist. Copyright 2351-1836 [employer]. Version: 16.03. Revision Date: 09/21/2020. oxycodone (ox [...] The extended-release form of oxycodone is for ekqqih-ybc-negyv treatment of pain and should not be [...] against the law. Stop taking all other vunrvq-eeo-okwxm opioid pain medicines when you start taking [...] may report side effects to FDA at 6-226-TKK-2850. What other drugs will affect oxycodone? You [...] may affect oxycodone. This includes prescription and mgwr-rdm-atcanfv medicines, vitamins, and herbal products. Not all [...] to ensure that the information provided by [employer]. ('[employer]') is accurate, up-to-date, and complete, but no guarantee is made to that effect. Drug information contained herein may be time sensitive. [employer] information has been compiled for use by healthcare practitioners and consumers in the [place] and therefore [employer] does not warrant that uses outside of the [place] are appropriate, unless specifically indicated otherwise. [employer]'s drug information does not endorse drugs, diagnose patients or recommend therapy. [employer] drug information is an informational resource designed [...] effective or appropriate for any given patient. [employer] does not assume any responsibility for any aspect of healthcare administered with the aid of information [employer] provides. The information contained herein is not intended to cover all possible uses, directions, precautions, warnings, drug interactions, allergic reactions, or adverse effects. If you have questions about the drugs you are taking, check with your doctor, nurse or pharmacist. Copyright 2789-8784 [facility] [employer]. Version: 14.02. Revision Date: 04/23/2020. docusate (oral/rectal) [...] may report side effects to FDA at 3-310-KLF-2065. What other drugs will affect docusate? Other drugs may affect docusate, including prescription and aniv-svh-vtzeuay medicines, vitamins, and herbal products. Tell your [...] to ensure that the information provided by [employer]. ('[employer]') is accurate, up-to-date, and complete, but no guarantee is made to that effect. Drug information contained herein may be time sensitive. [employer] information has been compiled for use by healthcare practitioners and consumers in the [place] and therefore [employer] does not warrant that uses outside of the [place] are appropriate, unless specifically indicated otherwise. [employer]'s drug information does not endorse drugs, diagnose patients or recommend therapy. [employer] drug information is an informational resource designed [...] effective or appropriate for any given patient. [employer] does not assume any responsibility for any aspect of healthcare administered with the aid of information [employer] provides. The information contained herein is not intended to cover all possible uses, directions, precautions, warnings, drug interactions, allergic reactions, or adverse effects. If you have questions about the drugs you are taking, check with your doctor, nurse or pharmacist. Copyright 4969-2863 [employer]. Version: 4.01. Revision Date: 10/01/2018. cephalexin (sef [...] may report side effects to FDA at 4-349-EJK-9117. What other drugs will affect cephalexin? Tell your doctor about all your other medicines, especially: ?? metformin; or ?? probenecid. This list is not complete. Other drugs may affect cephalexin, including prescription and efce-kui-mvlpqwl medicines, vitamins, and herbal products. Not all [...] to ensure that the information provided by [employer]. ('[employer]') is accurate, up-to-date, and complete, but no guarantee is made to that effect. Drug information contained herein may be time sensitive. [employer] information has been compiled for use by healthcare practitioners and consumers in the [place] and therefore [employer] does not warrant that uses outside of the [place] are appropriate, unless specifically indicated otherwise. [employer] drug information does not endorse drugs, diagnose patients or recommend therapy. [employer] drug information is an informational resource designed [...] effective or appropriate for any given patient. [employer] does not assume any responsibility for any aspect of healthcare administered with the aid of information [employer] provides. The information contained herein is not intended to cover all possible uses, directions, precautions, warnings, drug interactions, allergic reactions, or adverse effects. If you have questions about the drugs you are taking, check with your doctor, nurse or pharmacist. Copyright 7858-7842 [employer]. Version: 10.03. Revision Date: 03/30/2020. tramadol (TRAM [...]
--- OUTSIDE RECORDS SUMMARY | 2024-11-27 10:32 | XMS_ITS | Encounter Summary ---
Author Organization [employer] ([place], [place], [place], [place]) Address [address] [place] [address] Care Team Providers Care Weapons Specialist Name Role Phone Unavailable Primary Care Provider Unavailabl e Encounter Details Date Type Department Care Team (Late st Contact Info) Description 12/09/2020 Transcribed Document [facility] [place] Family Medicine [facility] [place] [address] ProviderJaime MD [address] [place] [address] [id number] Social History Tobacco Use Types Packs/Day Years [...] Appearance CLEAR2 12/09/2020 16:01 EDT Urine Specific [place] *1.026 12/09/2020 16:01 EDT Urine pH Dipstick [...]
--- OUTSIDE RECORDS SUMMARY | 2024-11-27 10:32 | XMS_ITS | Clinical Summary ---
Author Organization [facility] Address [address] [place] [address] Care Team Providers Care Upper Shaper Name Role Phone Columba Rodríguez URSULA Primary Care Provider [phone] Shay Biggs MD Unavailable [phone] Allergies Active Allergy Reactions Criticality Noted Date [...] Type Department Care Team Description 11/04/2024 Telephone [facility] [address], [address] [place] [address] Baldemar Gibbs MD from Last [...] A1C 1950 [place]-Medicare Annual Wellness (AWV) 1950 UKY-/Child/Adol SDOH Screenings 1950 [id number]-58 Vaccine (#1) 1957 Diabetes: Dental Exam 1962 [...] Recently Relevant to Health Maintenance Results * [place] Hepatitis C Antibody (02/13/2019 6:35 PM EST) [place] Hepatitis C Ab NEGATIVE Reference Range: Negative [facility] 02/13/2019 6:35 PM EST 02/13/2019 7:06 PM EST us Major Diaz MD LAB BLOOD ORDERABLES Final Re sult [facility]QUEST from Last 3 Months or Most Recently Relevant to Health Maintenance Insurance Care Teams Upper Shaper Relationship Specialty Start Date End Date Columba Rodríguez APRN [address] [place] [address] PCP - General 11/04/24 Shay Biggs MD [address] [facility] [address] [place] [address] Referring Physician Cardiology 11/04/24
--- OUTSIDE RECORDS SUMMARY | 2024-11-27 10:32 | XMS_ITS | Encounter Summary ---
Author Organization [facility] ([place], [place], [place], [place]) Address [address] [place] [address] Care Team Providers Care Sizer Machine Name Role Phone Unavailable Primary Care Provider Unavailabl e Encounter Details Date Type Department Care Team (Late st Contact Info) Description 12/23/2020 Transcribed Document [facility] [place] [facility] [place] [address] ProviderJaime MD [address] [place] [address] [phone] Social History Tobacco Use Types Packs/Day Years [...] EDT Electronically signed by Adolph Crowder Conversion Backup Administrative Coordinator Cerner at 07/09/2022 10:38 AM CDT documented in this encounter Plan of Treatment Not on file documented as of this encounter Visit Diagnoses Not on filedocumented in this encounter
--- OUTSIDE RECORDS SUMMARY | 2024-11-27 10:32 | XMS_ITS | Encounter Summary ---
Author Organization [facility] Address [address] [place] [id number] Care Team Providers Care Public School Teacher Name Role Phone Columba Rodríguez APRN Primary Care Provider [phone] Reason for Visit * Reason Comments Med Refill Encounter Details Date Type Department Care Team (Late st Contact Info) Description 10/18/2024 Refill [facility] RHEUMATOLOGY [address] [facility] [address] [place] [address] Adrianne Hdez APRN [address] [facility] [address] [place], [place] [id number] Social History Tobacco Use Types Packs/Day Years [...] Visit [facility] RHEUMATOLOGY [address] [address] Cash Khanna DO [address] [address] documented as of this encounter Visit Diagnoses Not on filedocumented in this encounter Care Teams Public School Teacher Relationship Specialty Start Date End Date Columba Rodríguez APRN [address] [place], [place] [phone] PCP - General Family Medicine 11/10/23 documented as of this encounter
--- OUTSIDE RECORDS SUMMARY | 2024-11-27 10:32 | XMS_ITS | Encounter Summary ---
Author Organization [employer] ([place], [place], [place], [place]) Address [address] [place] [address] Care Team Providers Care Drapery Hemmer Automatic Name Role Phone Unavailable Primary Care Provider Unavailabl e Encounter Details Date Type Department Care Team (Late st Contact Info) Description 12/22/2020 Transcribed Document [facility] [place] Family Medicine [facility] [place] [address] ProviderJaime MD [address] [place], [place] [phone] Social History Tobacco Use Types Packs/Day Years [...] or 4 frozen water bottles in the [facility] CUBE. Continue to use Incentive Spirometer 10 [...] Barley. Bulgur wheat. Millet. Bran muffins. Popcorn. [place] wafer crackers. Vegetables Sweet potatoes. Spinach. Kale. Artichokes. Cabbage. Broccoli. Green peas. Carrots. Squash. Fruits Berries. Pears. Apples. Oranges. Avocados. Prunes and raisins. Dried figs. Meats and Other Protein Sources [place], kidney, amador, and soy beans. Split peas. [...] 1 katy has 11 g of protein. [place] seeds ??? 1 oz has 5.5 g [...] the floor. Place frequently used items in hesh-ic-taudk places Keep electrical cables out of the [...] ? Using the bathroom. ? Using household terra cotta roofer helper or toxic chemicals. ? Touching or taking [...] activities are safe for you. ??? Take tkao-sox-xgyggho and prescription medicines only as told by [...] provider. Document Revised: 03/16/2018 Document Reviewed: 10/27/2017 [employer] Patient Education ? 2020 [employer] documented in this encounter Plan of Treatment Not on file documented as of this encounter Visit Diagnoses Not on filedocumented in this encounter
--- OUTSIDE RECORDS SUMMARY | 2024-11-27 10:32 | XMS_ITS | Encounter Summary ---
Author Organization [employer] ([place], [place], [place], [place]) Address [address] [place] [address] Care Team Providers Care Digital Campaign Manager Name Role Phone Unavailable Primary Care Provider Unavailabl e Encounter Details Date Type Department Care Team (Late st Contact Info) Description 12/23/2020 Transcribed Document [facility] [place] [address] [place] [address] ProviderJaime MD [address] [place], [place] [id number] Social History Tobacco Use Types Packs/Day Years [...]
--- OUTSIDE RECORDS SUMMARY | 2024-11-27 10:32 | XMS_ITS | Encounter Summary ---
Author Organization [employer] ([place], [place], [place], [place]) Address [address] [place] [address] Care Team Providers Care Loan Servicing Specialist Name Role Phone Unavailable Primary Care Provider Unavailabl e Encounter Details Date Type Department Care Team (Late st Contact Info) Description 12/23/2020 Transcribed Document [facility] [place] [facility] [place] [address] ProviderJaime MD [address] [place], [place] [id number] Social History Tobacco Use Types Packs/Day Years [...] EDT Electronically signed by Adolph Crowder Conversion Physical Therapist Center Manager Cerner at 07/09/2022 10:43 AM CDT documented in this encounter Plan of Treatment Not on file documented as of this encounter Visit Diagnoses Not on filedocumented in this encounter
--- OUTSIDE RECORDS SUMMARY | 2024-11-27 10:32 | XMS_ITS | Encounter Summary ---
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
--- OUTSIDE RECORDS SUMMARY | 2024-11-27 10:32 | XMS_ITS | Encounter Summary ---
Author Organization [employer] ([place], [place], [place], [place]) Address [address] [place] [address] Care Team Providers Care Handtools Repairer Name Role Phone Unavailable Primary Care Provider Unavailabl e Encounter Details Date Type Department Care Team (Late st Contact Info) Description 12/09/2020 Transcribed Document [facility] [place] Family Medicine [address] [place] [address] ProviderJaime MD [address] [place], [place] [phone] Social History Tobacco Use Types Packs/Day Years [...] : Standing scale Weight Entry Format : [place] Clinical Dosing Weight : 95.91 kg Weight, Pounds : 211 lb Body Surface Area (BSA) : 2.12 m2 Body Mass Index : 31.2 kg/m2 (HI) [place] Body Weight : 70 kg Michaela Alvarez Rn - 12/09/2020 16:02 EDT Height Source : Stated Height Entry Format : [place] Michaela Alvarez Rn - 12/09/2020 15:57 EDT [...] Michaela Alvarez Rn - 12/09/2020 16:02 EDT [place] Suicide Severity Rating Scale (C-SSRS) CSSRS Past [...] Obtained From : Patient Primary Language : Luxembourgish Preferred Communication Mode : Verbal Communication Barrier : None Aviation Support Equipment Repairer Needed : No Michaela Alvarez Rn - [...]
--- OUTSIDE RECORDS SUMMARY | 2024-11-27 10:32 | XMS_ITS | Encounter Summary ---
Author Organization [employer] ([place], [place], [place], [place]) Address [address] [place] [address] Care Team Providers Care Supervisor Poultry Processing Name Role Phone Unavailable Primary Care Provider Unavailabl e Encounter Details Date Type Department Care Team (Late st Contact Info) Description 12/23/2020 Transcribed Document [facility] [place] [address] [place] [address] ProviderJaime MD [address] [place], [place] [phone] Social History Tobacco Use Types Packs/Day Years [...]
--- OUTSIDE RECORDS SUMMARY | 2024-11-27 10:32 | XMS_ITS | Encounter Summary ---
Author Organization [employer] ([place], [place], [place], [place]) Address [address] [place] [address] Care Team Providers Care Division Director Name Role Phone Unavailable Primary Care Provider Unavailabl e Encounter Details Date Type Department Care Team (Late st Contact Info) Description 12/23/2020 Transcribed Document [facility] [place] [facility] [place] [address] ProviderJaime MD [address] [place], [place] [id number] Social History Tobacco Use Types Packs/Day Years [...] ESPARZA /Sex: 1950 Male Med Rec #: [id number] Physician: KAYLA ZIMMERMAN JR, JR, MD-ORT Financial #: [id number] Pt. Type: O Room/Bed: Admit/Disch: 12/23/20 04:16:00 - Institution: [facility] IntraOp Case Attendance Entry 1 Entry 2 Entry 3 Case Attendee KAYLA ZIMMERMAN JR, JR, TARA MERA APRN,HAYDER KOROMA, LUCIE CHANCEORT Role Performed Surgeon/Proceduralist, PETROLEUM PLANT OPERATOR/Nurse Taker Off Drying Kiln Loin Puller, First First Time In 12/23/20 07:51:00 12/23/20 [...] 5 Entry 6 Case Attendee Stephan Boyce, PRODUCTION ARTIST/[employer] BUSINESS ANALYST GET ARIAS ST Peel, Polly, Scub Tech Role Performed State Patrol Officer, First Scrub, First Scrub, Second Time In [...] Case Attendee OTHER, ATTENDEE #1 NGOZI PETTY, PETROLEUM PLANT OPERATOR Role Performed Vendor PETROLEUM PLANT OPERATOR/Nurse Taker Off Drying Kiln Time In 12/23/20 07:51:00 12/23/20 08:29:00 Time Out 12/23/20 09:55:00 12/23/20 08:41:00 Procedure Knee Total Joint Knee Total Joint Replacement Replacement Other Attendee [place] PETROLEUM PLANT OPERATOR BREAK Superficial Wound Closed By: Thom Modified By: HAYDER EASON RN LONGSWORTH, GARY, LUCIE 12/23/20 07:19:17 12/23/20 08:29:30 [facility] IntraOp Case Attendance Audit 12/23/20 09:55:23 Framing Manager: LONGGA Modifier: LONGGA 1 <+> Time Out [...] Procedure Knee Total Joint Replacement 12/23/20 08:48:55 Framing Manager: LONGGA Modifier: LONGGA 8 <+> Time Out 8 <*> Procedure Knee Total Joint Replacement 12/23/20 08:29:30 Framing Manager: LONGGA Modifier: LONGGA <+> 8 Case Attendee <+> 8 Role Performed <+> 8 Time In <+> 8 Procedure <+> 8 Other Attendee 12/23/20 08:25:18 Framing Manager: LONGGA Modifier: LONGGA 1 <+> Time In [...] Procedure Knee Total Joint Replacement 12/23/20 07:25:50 Framing Manager: LONGGA Modifier: LONGGA <+> 1 Procedure 2 [...] [facility] IntraOp Case Times Audit 12/23/20 09:55:21 Framing Manager: LONGGA Modifier: LONGGA <+> 1 Out Room Time <+> 1 Stop Time <+> 1 Stop Time 12/23/20 08:21:13 Framing Manager: LONGGA Modifier: LONGGA <+> 1 Start Time [...] [facility] IntraOp Counts Verification Audit 12/23/20 09:01:12 Framing Manager: LONGGA Modifier: LONGGA <+> 2 Procedure <+> [...] HAYDER EASON, LUCIE, Accompanied by TARA MERA APRN,PETROLEUM PLANT OPERATOR Last Modified By: HAYDER EASON RN 12/23/20 09:08:10 [facility] IntraOp Dressing and Packing Entry 1 Type Dressing Location RIGHT KNEE Wound Dressing Item Papo Supplemental Limb immobilizer, Cold Applications pack Applied By Stephan Boyce, PRODUCTION ARTIST/[employer] BUSINESS ANALYST Other Comments JONATHAN WOUND DRESSING Last [...] RN 12/23/20 07:24:40 [facility] IntraOp General Case Cash Posting Specialist 1 Case Information OR OR 02 SJE Case Level 1 Room Verified Yes Wound Class I - Clean Specialty Orthopedic Anesthesia Type General ASA Class 3 Diagnosis Preop Diagnosis DEGENERATIVE JOINT DISEASE, RIGHT KNEE Postop Same As Preop Yes Postop Diagnosis DEGENERATIVE JOINT DISEASE, RIGHT KNEE Last Modified By: HAYDER EASON RN 12/23/20 08:27:58 [facility] IntraOp General Case Data Audit 12/23/20 08:27:58 Framing Manager: YVETTE Modifier: LONGGA 1 <*> OR OR [...] PATELLA ITOTAL JIGS CR ITOTAL ID Identification [id number] Description Implant Quantity 2 1 1 Implant Site RIGHT KNEE RIGHT KNEE RIGHT KNEE Implant Identification Model Number Implant [id number] Identification Serial Number Implant [id number] Identification Lot Number Implant Blake:Blake Conformis Conformis Identification Orthopaedics Clinical Leader Name: Implant [id number] Identification Catalog Number Implant Size Implant Has an Yes Yes Yes Expiration Date Implant Expiration 01/24/22 09/23/22 12/24/21 Date Wasted Radioactive Material Time Implanted Tissue Implant Continue for Tissue Implant Documentation Tissue Identification Number Graft Prep Per Clinical Leader Instructions: Tissue Preparation Method: Reconstitution Solution: Reconstitution Solution Lot Number Reconstitution Solution Expiration Date: Thawing Solution Thawing Solution Lot Number Thawing Solution Expiration Date Preparation Materials, Other Preparation Materials, Other Lot Number Preparation Materials, Other Expiration Date Tissue Prepared/Processed By Clinical Leader Paperwork Completed Implant Type Comment Last Modified [...] KT CR FULL ITOTAL ID Identification [id number] [id number] Description Implant Quantity 1 1 1 Implant Site RIGHT KNEE RIGHT KNEE RIGHT KNEE Implant Identification Model Number Implant [id number] Identification Serial Number Implant Identification Lot Number Implant Conformis Conformis Conformis Identification Clinical Leader Name: Implant [id number] Identification Catalog Number Implant Size Implant Has an Yes Yes Yes Expiration Date Implant Expiration 12/24/21 12/24/21 12/24/21 Date Wasted Radioactive Material Time Implanted Tissue Implant Continue for Tissue Implant Documentation Tissue Identification Number Graft Prep Per Clinical Leader Instructions: Tissue Preparation Method: Reconstitution Solution: Reconstitution Solution Lot Number Reconstitution Solution Expiration Date: Thawing Solution Thawing Solution Lot Number Thawing Solution Expiration Date Preparation Materials, Other Preparation Materials, Other Lot Number Preparation Materials, Other Expiration Date Tissue Prepared/Processed By Clinical Leader Paperwork Completed Implant Type Comment Last Modified By: HAYDER EASON RN LONGSWORTH, GARY, RN LONGSWORTH, GARY, RN 12/23/20 08:49:46 12/23/20 08:51:06 12/23/20 08:52:02 S[facility] IntraOp Implant Log Audit 12/23/20 08:52:02 Framing Manager: LONGGA Modifier: LONGGA <+> 6 Implant Identification Description <+> 6 Implant Identification Serial Number <+> 6 Implant Identification Clinical Leader Name: <+> 6 Implant Expiration Date <+> 6 Implant Site <+> 6 Implant Quantity <+> 6 Implant Identification Catalog Number <+> 6 Implant Type <+> 6 Implant Has an Expiration Date <+> 6 Type 12/23/20 08:51:06 Framing Manager: LONGGA Modifier: LONGGA <+> 5 Implant Identification Description <+> 5 Implant Identification Serial Number <+> 5 Implant Identification Clinical Leader Name: <+> 5 Implant Expiration Date <+> 5 Implant Site <+> 5 Implant Quantity <+> 5 Implant Identification Catalog Number <+> 5 Implant Type <+> 5 Implant Has an Expiration Date <+> 5 Type 12/23/20 08:49:46 Framing Manager: LONGGA Modifier: LONGGA <+> 4 Implant Identification Description <+> 4 Implant Identification Serial Number <+> 4 Implant Identification Clinical Leader Name: <+> 4 Implant Expiration Date <+> 4 Implant Site <+> 4 Implant Quantity <+> 4 Implant Identification Catalog Number <+> 4 Implant Type <+> 4 Implant Has an Expiration Date <+> 4 Type 12/23/20 08:48:24 Framing Manager: LONGGA Modifier: LONGGA <+> 3 Implant Expiration Date 12/23/20 08:48:23 Framing Manager: LONGGA Modifier: LONGGA <+> 3 Implant Identification Description <+> 3 Implant Identification Serial Number <+> 3 Implant Identification Clinical Leader Name: <+> 3 Implant Site <+> 3 Implant Quantity <+> 3 Implant Identification Catalog Number <+> 3 Implant Type <+> 3 Implant Has an Expiration Date <+> 3 Type 12/23/20 08:47:19 Framing Manager: LONGGA Modifier: LONGGA <+> 2 Implant Identification Description <+> 2 Implant Identification Lot Number <+> 2 Implant Identification Clinical Leader Name: <+> 2 Implant Expiration Date <+> [...] w/ vancomycin 1Gm vial - epinephrine 1:100,000 [id number] 20ml vial - [id number] Combo Med List 4 - Combo Med [...] SJE IntraOp Medication Admin Audit 12/23/20 08:39:42 Framing Manager: LONGGA Modifier: LONGGA <+> 5 Medication/Irrigant <+> [...] JR, MD-ORT, SAMARIA, TARA, URSULA,PAPO, Austen, Stephan, PRODUCTION ARTIST/[employer] BUSINESS ANALYST Position Verified Positioning Yes Verified by [...] SJE IntraOp Surgical Procedures Audit 12/23/20 09:51:54 Framing Manager: LONGGA Modifier: LONGGA 1 <*> Procedure Knee Total Joint Replacement 1 <+> Stop 12/23/20 08:21:22 Framing Manager: LONGGA Modifier: LONGGA <+> 1 Start SJE IntraOp Temp Regulation Devices Entry 1 Temp Regulation Temperature Warm blankets Regulation Device Temperature Upper body Regulation Site Temperature SAMARIA, TARA, GAS PIT WORKER,PETROLEUM PLANT OPERATOR Regulation Device Applied by Last Modified By: [...] SJE IntraOp Time Out Audit 12/23/20 08:31:31 Framing Manager: YVETTE Modifier: YVETTE 1 <+> Surgeon 1 [...] Padded Under Cuff Applied By Stephan Boyce, KATHI/[employer] BUSINESS ANALYST Times Start Time 12/23/20 08:10:00 Stop Time 12/23/20 08:59:00 Last Modified By: HAYDER EASON RN 12/23/20 09:00:54 SJE IntraOp Tourniquet Audit 12/23/20 09:00:54 Framing Manager: YVETTE Modifier: YVETTE <+> 1 Stop Time Case Comments <None> Finalized By: HAYDER EASON, RN Document Signatures Signed By: HAYDER EASON RN 12/23/20 09:59 Electronically signed by [facility] Conversion Head Of Design Cerner at 07/09/2022 10:43 AM CDT documented in this encounter Plan of Treatment Not on file documented as of this encounter Visit Diagnoses Not on filedocumented in this encounter
[2024-11-27] MEDS: SODIUM CHLORIDE 0.9% 10ML SYR (RAD ONLY) 10 ML IV (12:27)
[2024-11-27] MEDS: GADOTERIDOL INJ 20ML SYRINGE 19 ML IV (12:27)
[2024-11-27] MEDS: 0.9 % SODIUM CHLORIDE 50 ML VIAL 20 ML IV (12:27)
== END 2024-11-27 23:59 | disposition home or self-care (01) ==
LOC: RAD 10:29
PROVIDERS: PCP Family Medicine; Visit Provider Nurse Practitioner
DX: I25.10 Atherosclerotic heart disease of native coronary artery without angina pectoris (principal); I48.92 Unspecified atrial flutter
CPT/HCPCS: 75561; A9576

== ENCOUNTER 2024-12-11 10:08 | Outpatient (CLI) | payer MEDICARE, SELFPAY ==
--- OUTSIDE RECORDS SUMMARY | 2024-12-11 10:13 | XMS_ITS | Clinical Summary ---
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 R76.12 (ICD-10-CM ) 09/18 Active 09/18 Imelda Bunny 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 gamma interferon antigen response without active tuberculosis Edema, limb 202474041 (SNOMED CT) 09/21 Resolved 09/21 Imelda Hollis Edema of extremity Right Leg Edema, limb 356405033 (SNOMED CT) 09/21 Removed 09/21 Jer Zhang [...] DAY 2 THROUGH DAY 5 12/19 azithromycin 15623468979 Cinda Rolando BENZONATATE 100 MG CAPS Take 1 capsule by mouth three times a day as needed 12/19 BENZONATATE Cinda Fu TRIAZOLAM 0.25 MG TABS Take 1 tablet by mouth 12/19 triazolam 68611123075 Cinda Fu LORAZEPAM 1 MG TABS Take 1 tablet 12/19 lorazepam 94945228846 Cinda Fu LEVOFLOXACIN 750 MG TABS Take 1 tablet by mouth once a day 12/19 levofloxacin 91820393876 Cinda Rolando LOSARTAN POTASSIUM 50 MG TABS one tab oral daily 12/19 losartan 31664312602 Cinda Rolando NYSTATIN 858881 UNIT/GM OINT Apply to skin once a day 12/19 nystatin 62911561135 Cinda Fu RIFAMPIN 300 MG CAPS Take 2 by mouth once a day 12/19 rifampin 57411553128 Cinda Rolando CYCLOBENZAPRINE HCL 5 MG TABS one tab oral daily 12/19 cyclobenzaprine 81256878234 Cinda Fu ISONIAZID 300 MG TABS Take 1 tablet by mouth once a day 12/19 isoniazid 36438663055 Cinda PROMETHAZINE-CODEI NE 6.25-10 MG/5ML SYRP Take 5 ml by mouth twice a day 12/19 promethazine-code ine 28899003953 Cinda Fu DICYCLOMINE HCL 10 MG CAPS 1 cap oral twice a day 12/19 dicyclomine 74689457371 Cinda Fu CLOPIDOGREL BISULFATE 75 MG TABS Take 1 tablet by mouth once a day 12/19 clopidogrel 64021591391 Cinda Marshall HYDROCOD POLST-CPM POLST ER 10-8 MG/5ML ORAL SUSPENSION EXTENDED RELEASE Take 1 teaspoon by mouth twice a day 12/19 HYDROCOD POLST-CPM POLST ER 10-8 MG/5ML ORAL SUSPENSION EXTENDED RELEASE Cinda Mrashall PLAVIX 75 MG TABS once a day clopidogrel 5113578 7190 Cinda Marshall TRIAZOLAM 0.25 MG TABS Take 1 tablet by mouth 09/24 triazolam 04169429648 Melvin Hartman ISONIAZID 300 MG TABS Take 1 tablet by mouth once a day 12/19 isoniazid 07013644598 Melvin Hartman CLOPIDOGREL BISULFATE 75 MG TABS Take 1 tablet by mouth once a day 12/19 clopidogrel 65811678059 Melvin Hartman LORAZEPAM 1 MG TABS Take 1 tablet 12/19 lorazepam 69047932485 Melvin Hartman NYSTATIN 249634 UNIT/GM OINT Apply to skin once a day 12/19 nystatin 74242964777 Melvin Hartman HYDROCOD POLST-CPM POLST ER 10-8 MG/5ML ORAL SUSPENSION EXTENDED RELEASE Take 1 teaspoon by mouth twice a day 12/19 HYDROCOD POLST-CPM POLST ER 10-8 MG/5ML ORAL SUSPENSION EXTENDED RELEASE Melvin Hartman AZITHROMYCIN 250 MG TABS TAKE 2 TABLETS BY MOUTH ON DAY 1 AND THEN TAKE 1 TABLET BY MOUTH ONCE A DAY ON DAY 2 THROUGH DAY 5 09/24 azithromycin 00897047137 Melvin Hartman RIFAMPIN 300 MG CAPS Take 2 by mouth once a day 09/24 rifampin 11224930757 Melvin Hartman PROMETHAZINE-CODEI NE 6.25-10 MG/5ML SYRP Take 5 ml by mouth twice a day 05/09 promethazine-code ine 97475814687 Melvin Hartman BENZONATATE 100 MG CAPS Take 1 capsule by mouth three times a day as needed 12/19 BENZONATATE Melvin Hartman LEVOFLOXACIN 750 MG TABS Take 1 tablet by mouth once a day 12/19 levofloxacin 89110004091 Melvin Hartman DICYCLOMINE HCL 10 MG CAPS 1 cap oral twice a day 09/24 dicyclomine 92644954776 Melvin Hartman SIMVASTATIN 20 MG TABS one tab oral daily simvastatin 00081621235 Melvin Hartman LOSARTAN POTASSIUM 50 MG TABS one tab oral daily 09/24 losartan 10664478552 Melvin Hartman CYCLOBENZAPRINE HCL 5 MG TABS one tab oral daily 09/24 cyclobenzaprine 90135332549 Melvin Hartman TRAMADOL HCL 50 MG TABS one tab every 6 hours prn tramadol 65953118034 Melvin Hartman METFORMIN HCL 500 MG TABS one tab oral twice a day metformin 71401126787 Melvin Hartman RIFAMPIN 300 MG CAPS take 2 po daily 09/24 RIFAMPIN 67723194129 Jer Zhang MD ISONIAZID 300 MG TABS Take 1 tablet by mouth daily 12/16 ISONIAZID 28022960810 Jer Zhang MD AZITHROMYCIN 250 MG TABS TAKE 2 TABLETS BY MOUTH ON DAY 1 AND THEN TAKE 1 TABLET BY MOUTH ONCE A DAY ON DAY 2 THROUGH DAY 5 09/24 AZITHROMYCIN 07199209879 Gerald Ocasio BENZONATATE 100 MG CAPS TAKE 1 CAPSULE BY MOUTH THREE TIMES DAILY FOR 10 DAYS NEEDED FOR COUGH 12/16 BENZONATATE 24409888461 Gerald Ocasio PROMETHAZINE-CODEI NE 6.25-10 MG/5ML SOLN TAKE 5 ML BY MOUTH TWICE DAILY 12/16 PROMETHAZINE-CODE INE 35821449709 Gerald Ocasio LEVOFLOXACIN 750 MG TABS TAKE 1 TABLET BY MOUTH ONCE DAILY FOR 8 DAYS 12/16 LEVOFLOXACIN 02945581791 Gerald Ocasio CLOPIDOGREL BISULFATE 75 MG TABS TAKE 1 TABLET BY MOUTH ONCE DAILY 12/16 CLOPIDOGREL BISULFATE 15497117143 Gerald D NYSTATIN 895951 UNIT/GM OINT APPLY OINTMENT TOPICALLY ONCE DAILY 12/16 NYSTATIN 42350946789 Gerald D HYDROCOD POLST-CPM POLST ER 10-8 MG/5ML ORAL SUSPENSION EXTENDED RELEASE TAKE 1 TEASPOONFUL (5 ML) BY MOUTH TWICE DAILY MAY CAUSE DROWSINESS 12/16 HYDROCOD POLST-CHLORPHEN POLST 47606019133 Gerald D TRIAZOLAM 0.25 MG TABS TAKE 1 TABLET BY MOUTH 30 MINUTES PRIOR TO MRI ON 09/24 TRIAZOLAM 25711048593 Gerald D LORAZEPAM 1 MG TABS TAKE 1 TABLET 2 HOURS BEFORE MRI FOR ANXIETY 12/16 LORAZEPAM 08326032674 Gerald D Medications Administered No information available. 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
--- OUTSIDE RECORDS SUMMARY | 2024-12-11 10:14 | XMS_ITS | Encounter Summary ---
Author Organization [facility] Address [address] [place] [id number] Care Team Providers Care Curator Of Collections Name Role Phone Columba Rodríguez APRN Primary Care Provider [phone] Reason for Visit * Reason Comments Med Refill Encounter Details Date Type Department Care Team (Late st Contact Info) Description 10/18/2024 Refill [facility] RHEUMATOLOGY [address] [facility] [address] [place] [address] Adrianne Hdez APRN [address] [facility] [address] [place], [place] [id number] Social History Tobacco Use Types Packs/Day Years [...] Description 12/13/2024 11:15 AM EDT Office Visit [facility] RHEUMATOLOGY [address] [address] Cash Khanna DO [address] [address] documented as of this encounter Visit Diagnoses Not on filedocumented in this encounter Care Teams Curator Of Collections Relationship Specialty Start Date End Date Columba Rodríguez APRN [address] [place], [place] [id number] PCP - General Family Medicine 11/10/23 documented as of this encounter
--- OUTSIDE RECORDS SUMMARY | 2024-12-11 10:14 | XMS_ITS | Encounter Summary ---
Author Organization [facility] Address [address] [place] [address] Care Team Providers Care Dry Room Operator Name Role Phone Columba Rodríguez APRN Primary Care Provider [phone] Shay Biggs MD Unavailable [phone] Encounter Details Date Type Department Care Team (Late st Contact Info) Description 11/04/2024 Telephone [facility] [address], [address] [place] [address] Baldemar Gibbs MD [address] [place] [address] Social History Tobacco Use Types [...] on filedocumented in this encounter Care Teams Dry Room Operator Relationship Specialty Start Date End Date Columba Rodríguez APRN [address] [place] [address] [place] [id number] PCP - General 11/04/24 Shay Biggs MD [address] [place] [address] Referring Physician Cardiology 11/04/24 documented as of this encounter
--- OUTSIDE RECORDS SUMMARY | 2024-12-11 10:14 | XMS_ITS | Clinical Summary ---
Author Organization [facility] Address [address] [place] [address] Care Team Providers Care Special Client Bus Driver Name Role Phone Columba Rodríguez URSULA Primary Care Provider Shay Biggs MD Unavailable [phone] Allergies Active Allergy Reactions Criticality Noted Date [...] Type Department Care Team Description 11/04/2024 Telephone [facility] [address], [address] [place] [address] Baldemar Gibbs MD from Last [...] Wellness (AWV) 1950 [facility]-/Child/Adol SDOH Screenings 1950 [id number] Vaccine (#1) 1955 Diabetes: Dental Exam 1962 [...] Recently Relevant to Health Maintenance Results * [place] Hepatitis C Antibody (02/13/2019 6:35 PM EST) [place] Hepatitis C Ab NEGATIVE Reference Range: Negative [facility] 02/13/2019 6:35 PM EST 02/13/2019 7:06 PM EST us Major Diaz MD LAB BLOOD ORDERABLES Final Re sult [facility] from Last 3 Months or Most Recently Relevant to Health Maintenance Insurance Care Teams Special Client Bus Driver Relationship Specialty Start Date End Date Columba Rodríguez APRN [address] [place] [address] PCP - General 11/04/24 Shay Biggs MD [address] [facility] [address] [place] [address] Referring Physician Cardiology 11/04/24
--- OUTSIDE RECORDS SUMMARY | 2024-12-11 10:14 | XMS_ITS | Clinical Summary ---
Author Organization [facility] Address [address] [place] [address] Care Team Providers Care Mortgage Loan Specialist Name Role Phone Columba Rodríguez APRN Primary Care Provider [phone] Allergies Active Allergy Reactions Criticality Noted Date [...] 2 % ointment 3 Active nystatin (MYCOSTATIN) 155383 UNIT/GM cream 3 Active pioglitazone (ACTOS) 30 [...] Daily. Active Cholecalciferol (Vitamin D3) 1.25 MG (57102 UT) tablet Take 1 tablet by mouth [...] Type Department Care Team Description 10/18/2024 Refill [facility] RHEUMATOLOGY [address] [address] Adrianne Hdez APRN from Last [...] Description 12/13/2024 11:15 AM EDT Office Visit [facility] RHEUMATOLOGY [address] [place] [address] Cash Khanna DO [address] [facility] [address] [place], [place] [id number] Health Maintenance Due Date Last Done Comments [...] COVID-19 Vaccine ( - 2023-2 5 season) 2024 INFLUENZA VACCINE 12/25/2024 01/31/2024, , 01/09/2020, Additional history exists Pneumococcal Vaccine 50+ Completed 022, 01/31/2019, 01/11/2018, Additional history exists Insurance [facility] Medicare [employer] PPO Care Teams Mortgage Loan Specialist Relationship Specialty Start Date End Date Columba Rodríguez APRN [address] [place] [id number] PCP - General Family Medicine 11/10/23
--- OUTSIDE RECORDS SUMMARY | 2024-12-11 10:14 | XMS_ITS | Encounter Summary ---
[facility] Address [address] [place] [id number] Care Team Providers Care Document Scanner Name Role Phone Columba Rodríguez APRN Primary Care Provider [phone] Reason for Visit * Reason Comments Med Refill Encounter Details Date Type Department Care Team (Late Contact Info) Description 09/01/2023 Refill [facility] PULMONARY [facility] CRITICAL C[facility] MEDICINE [address] [place] [address] Isai Tran MD [address] [place] [address] Social History Tobacco Use Types Packs/Day Years [...] Description 12/13/2024 11:15 AM EDT Office Visit [facility] RHEUMATOLOGY [address] [place] [address] Cash Khanna DO [address] [facility] [address] [place], [place] [id number] documented as of this encounter Visit Diagnoses Not on filedocumented in this encounter Care Teams Document Scanner Relationship Specialty Start Date End Date oClumba Rodríguez APRN [address] [id number] PCP - General Family Medicine 11/10/23 documented as of this encounter
--- NOTE | 2024-12-11 10:30 | FL_ITS ---
FINAL REPORT CLINICAL HISTORY: globus sensation 60.26 mgy 2:01 ft FINDINGS: ESOPHAGRAM HISTORY: Dysphagia Reference air kerma dose 60.26 mGy TECHNIQUE: Double contrast exam FINDINGS: The esophagus demonstrates a small hiatal hernia. There is moderate gastroesophageal reflux. No mucosal defects are seen. Motility appears normal. No changes of esophagitis are evident. A barium tablet readily passed. IMPRESSION: All hiatal hernia Authenticated and ERN
[2024-12-11] MEDS: BARIUM SULFATE(LIQUID E-Z-PAQUE);355ML BOTTLE 355 ML PO (10:47)
[2024-12-11] MEDS: BARIUM SULFATE (E-Z-HD 340GM);135ML BOTTLE 135 ML PO (10:47)
[2024-12-11] MEDS: E-Z-GASII EFFERVESCENT GRANULES;1PK 1 EACH PO (10:48)
--- NOTE | 2024-12-11 11:00 | US_ITS ---
FINAL REPORT TECHNIQUE: Real-time grayscale and color ultrasound of the thyroid was performed. CLINICAL HISTORY: DIFFICULTY SWALLOWING COMPARISON: None FINDINGS: The thyroid gland measures 4.4 x 2.8 x 1.9 cm on the right and 4.0 x 2.0 x 1.4 cm on the left. The isthmus measures 5 mm. The parenchyma is unremarkable . Nodules: No suspicious mass or nodule. IMPRESSION: Unremarkable exam. Reviewed, Interpreted and Dictated by Mavis Mcdermott MD Transcribed by Tiara Alcantar Authenticated and [facility]
== END 2024-12-11 23:59 | disposition home or self-care (01) ==
LOC: RAD 10:09
PROVIDERS: PCP Family Medicine; Visit Provider Nurse Practitioner
DX: K44.9 Diaphragmatic hernia without obstruction or gangrene (principal); E01.0 Iodine-deficiency related diffuse (endemic) goiter; R09.89 Other specified symptoms and signs involving the circulatory and respiratory systems
CPT/HCPCS: 74220; 76536

== ENCOUNTER 2024-12-23 09:00 | Outpatient (CLI) | payer MEDICARE, SELFPAY ==
--- OUTSIDE RECORDS SUMMARY | 2024-12-13 11:15 | XMS_ITS | Encounter Summary ---
[facility] Organization [facility] Address [address] [place] [id number] Care Team Providers Care Restaurant Assistant Name Role Phone Columba Rodríguez APRN Primary Care Provider Reason for Visit * Reason Comments Rheumatoid Arthritis Follow up Osteoarthritis Follow up Encounter Details Date Type Department Care Team (Latest Contact Info) Description 12/13/2024 11:15 AM EDT Office Visit [facility] [address] [address] Cash Khanna DO [address] [address] Seronegative rheumatoid arthritis (Primary Dx); Primary osteoarthritis [...] sent through Care Everywhere. * Rheumatoid Arthritis ([place]aro[place]) documented in this encounter Progress Notes * [...] , Rfl: Cholecalciferol (Vitamin D3) 1.25 MG (50856 UT) tablet, Take 1 tablet by mouth [...] ointment, , Disp: , Rfl: nystatin (MYCOSTATIN) 805275 UNIT/GM cream, , Disp: , Rfl: omeprazole [...] 4 months (around 04/14/2025). Cash Khanna DO [facility] Rheumatology of [place] documented in this encounter Plan of Treatment Upcoming Encounters Date Type Department Care Team (Late st Contact Info) Description 06/16/2025 11:15 AM EDT Office Visit [facility] [address] [address] Cash Khanna DO [address] [place] [address] Scheduled Orders Name Type Priority Associated Diagnoses [...] 12:3 9 PM EDT 12/13/2024 Narrative [facility] (AMBULATORY) - 12/17/2024 8:08 AM EDT Performed at: [address] [place] [id number] Ecological Modeler: Matthew Clark PhD, Phone: [phone] Patient Fasting: N Cash Khanna DO LAB BLOOD ORDERABLES F inal Result [facility] ([facility]UL[facility]ORY) [address] [place] [address], [facility] [address] [place] [address], * C-reactive Protein (12/13/2024 12:39 PM EDT) [facility] C-Reactive Protein 2 0 - 10 mg/L [facility] Blood 12/13/2024 12:3 9 PM EDT 12/13/2024 Narrative [facility] [facility] (AMBULATORY) - 12/17/2024 8:08 AM EDT Performed at: 02 - [facility] [address] [facility], [place], [place] [id number] Ecological Modeler: Matthew Clark PhD, Phone: [phone] Patient Fasting: N Cash Khanna DO LAB BLOOD ORDERABLES F inal Result [facility] [address] [place] [address], [facility] [address] [place] [address], * Urine Drug Screen - Urine, Clean Catch (12/13/2024 12:39 PM EDT) [facility] Amphetamine, Urine Qual Negative Cutoff=10 00 ng/mL [...] is inconsistent with an expected outcome. Email: [email or web address] Urine Urine specimen obtained by clean catch procedure / Unknown 12/13/2024 12:39 PM EDT 12/13/2024 Narrative [facility] - 12/17/2024 8:08 AM EDT Performed at: 01 - [facility] [address] [facility], [place], [place] [id number] Ecological Modeler: Kenroy Mills PhD, Phone: [phone] Patient Fasting: N [facility] DO URINE ORDERABLES Final Result Performing Organization Address City/[facility]/ZIP Co de Phone Number [facility] [address] [place] [phone], [facility] [address] [place] [address], * Sedimentation Rate (12/13/2024 12:39 PM EDT) Pathologist [facility] Sed Rate 29 0 - 30 mm/hr [facility] Blood 12/13/2024 12:3 9 PM EDT 12/13/2024 Narrative [facility] (AMBULATORY) - 12/17/2024 8:08 AM EDT Performed at: 02 - [facility] [address] [place] [id number] Ecological Modeler: Matthew Clark PhD, Phone: [phone] Patient Fasting: N [facility] LAB BLOOD ORDERABLES F inal Result Performing Organization Address City/[facility]/ZIP Co de Phone Number [facility] [address] [place] [address], [facility] [address] [place] [address], * (ABNORMAL) Comprehensive Metabolic Panel (12/13/2024 12:39 [...] 12:3 9 PM EDT 12/13/2024 Narrative [facility] (AMBULATORY) - 12/17/2024 8:08 AM EDT Performed at: 02 - [address] [id number] Ecological Modeler: Matthew Clark PhD, Phone: [phone] Patient Fasting: N Cash Khanna DO LAB BLOOD ORDERABLES F inal Result [facility] [employer] [facility] (AMBULATORY) [address] [place] [address], [facility] [address] [place] [address], documented in this encounter Visit Diagnoses Diagnosis Seronegative rheumatoid arthritis- Primary Rheumatoid arthritis Primary osteoarthritis involving multiple joints Encounter for medication monitoring Encounter for therapeutic drug monitoring Positive QuantiFERON-TB Gold test documented in this encounter Care Teams Restaurant Assistant Relationship Specialty Start Date End Date Columba Rodríguez APRN [address] [place] [address] PCP - General Family Medicine 11/10/23 documented as of this encounter
[2024-12-23 16:12] LABS: Microscopic, Urine URINE MICROSCOPIC (MICROSCOPIC)
[2024-12-23 16:36] LABS: Color,Urine YELLOW (Yellow); Glucose,Urine (UA) Negative (Negative); Ketones,Urine 1+ (Negative); Leukocyte Esterase,Urine Negative (Negative); PH,Urine 5.5 (5.0-8.5); Protein,Urine 2+ (Negative); Specific Gravity, Urine >= 1.030 (1.005-1.030); Urobilinogen,Urine 0.2 EU/dl (0.2)
[2024-12-23 16:40] LABS: Bilirubin,Urine 1+ (Negative)
[2024-12-23 17:01] LABS: Amorphous Sediment,Urine 1+ /lpf; Bacteria,Urine 1+ /lpf
[2024-12-23 17:02] LABS: Hyaline Casts,Urine OCC #/lpf (0)
--- OUTSIDE RECORDS SUMMARY | 2024-12-24 10:29 | XMS_ITS | Encounter Summary ---
Author Organization [employer] ([place], [place], [place], [place]) Address [address] [place] [address] Care Team Providers Care Glass Beveller Name Role Phone Unavailable Primary Care Provider Unavailabl e Encounter Details Date Type Department Care Team (Late st Contact Info) Description 12/09/2020 Transcribed Document [facility] [place] [facility] [place] [address] ProviderJaime MD [address] [place] [id number] Social History Tobacco Use Types Packs/Day Years [...] Appearance CLEAR2 12/09/2020 16:01 EDT Urine Specific [place] *1.026 12/09/2020 16:01 EDT Urine pH Dipstick [...]
--- OUTSIDE RECORDS SUMMARY | 2024-12-24 10:29 | XMS_ITS | Encounter Summary ---
Author Organization [employer] ([place], [place], [place], [place]) Address [address] [place] [address] Care Team Providers Care Bobbin Handler Name Role Phone Unavailable Primary Care Provider Unavailabl e Encounter Details Date Type Department Care Team (Late st Contact Info) Description 12/16/2020 Transcribed Document [facility] [place] [facility] [address] [place] [address] ProviderJaime MD [address] [place], [place] [id number] Social History Tobacco Use Types Packs/Day Years [...] Source : Stated Height Entry Format : [place] Height, Feet : 5 ft(Converted to: 152 cm, 60 Inch) Height, Inches : 9 Inch(Converted to: 0 ft 9 Inch, 22.86 cm) Clinical Height : 175.26 cm Weight Source : Standing scale Weight Entry Format : [place] Clinical Dosing Weight : 96.93 kg Weight, Pounds : 213 lb Weight, Ounces : 4 oz Body Surface Area (BSA) : 2.12 m2 Body Mass Index : 31.6 kg/m2 (HI) [place] Body Weight : 70 kg CIARA WOODS [...] CIARA WOODS RN - 12/16/2020 6:51 EDT [place] Suicide Severity Rating Scale (C-SSRS) CSSRS Past [...] Obtained From : Patient Primary Language : Montenegrin Preferred Communication Mode : Verbal Communication Barrier : None Director Automotive Needed : No CIARA WOODS RN - [...] form. Electronically signed by Interface, Adolph Conversion Special Crimes Investigator Cerner at 07/09/2022 10:37 AM CDT documented in this encounter Plan of Treatment Not on file documented as of this encounter Visit Diagnoses Not on filedocumented in this encounter
--- OUTSIDE RECORDS SUMMARY | 2024-12-24 10:29 | XMS_ITS | Encounter Summary ---
Author Organization [facility] ([place], [place], [place], [place]) Address [address] [place] [address] Care Team Providers Care Yard Jockey Name Role Phone Unavailable Primary Care Provider Unavailabl e Encounter Details Date Type Department Care Team (Late st Contact Info) Description 12/23/2020 Transcribed Document [facility] [place] [address] ProviderJaime MD [facility] [place], [place] [id number] Social History Tobacco Use Types Packs/Day Years [...] 09:24 PT Treatment Instructions Ordered By: KAYLA ZIMEMRMAN JR, JR, MD-ORT 12/23/2020 09:24 PT Treatment Instructions Ordered By: KAYLA ZIMMERMAN JR, JR, MD-ORT 12/23/2020 09:24 PT Treatment Instructions Ordered By: KAYLA ZIMMERMAN JR, JR, MD-ORFreeman Active Diagnoses : Unilateral primary osteoarthritis, right knee 12/23/2020 12:00 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
--- OUTSIDE RECORDS SUMMARY | 2024-12-24 10:29 | XMS_ITS | Encounter Summary ---
Author Organization [employer] ([place], [place], [place], [place]) Address [address] [place] [address] Care Team Providers Care Dress Fitter Name Role Phone Unavailable Primary Care Provider Unavailabl e Encounter Details Date Type Department Care Team (Late st Contact Info) Description 12/23/2020 Transcribed Document [facility] [place] Family Medicine [address] [place] [address] ProviderJaime MD [address] [place], [place] [address]841 Social History Tobacco Use Types Packs/Day Years [...]
--- OUTSIDE RECORDS SUMMARY | 2024-12-24 10:29 | XMS_ITS | Clinical Summary ---
[facility] Organization [facility] Address [address] [place] [address] Care Team Providers Care Helper Chicken Farm Name Role Phone Columba Rodríguez APRN Primary Care Provider [phone] Allergies Active Allergy Reactions Criticality Noted Date Comments Penicillins Unknown - Low Severi ty,Itching,Unknown (See Comments) Medium 08/08/2017 Medications Plavix 75 MG tablet PLAVIX 75 MG TABS Active vitamin B-12 (cyanocobalami n) 100 MCG tablet Take 1 tablet by mouth Daily. Active losartan (COZAAR) 50 MG tablet 11/30/19 23 Active mupirocin (BACTROBAN) 2 % ointment 12/06/19 23 Active nystatin (MYCOSTATIN) 329477 UNIT/GM cream 11/19/19 23 Active pioglitazone (ACTOS) 30 MG tablet 11/29/19 23 Active potassium chloride (MICRO-K) 10 MEQ CR capsule Take by mouth. Active zinc gluconate 50 MG tablet Take 1 tablet by mouth Daily. Active lidocaine (LIDODERM) 5 % Place 1 patch on the skin as directed by provider Daily. Remove & Discard patch within 12 hours or as directed by MD Pineda each 01/07/20 23 Active albuterol sulfate HFA [...] Active Cholecalcifero l (Vitamin D3) 1.25 MG (24628 UT) tablet Take 1 tablet by mouth Daily. Active isoniazid (NYDRAZID) 300 MG tablet Take 1 tablet by mouth Daily. 10/10/19 Active Pharmacist Choice Lancets misc 31 g. 10/03/19 Active atorvastatin (LIPITOR) 40 MG tablet Take 1 tablet by mouth every night at bedtime. 06/07/19 Active ondansetron (ZOFRAN) 4 MG tablet Take 1 tablet by mouth Every 8 (Eight) Hours As Needed for Nausea. 03/08/20 Active Blood Glucose Monitoring Suppl (ONE TOUCH ULTRA 2) w/Device kit 08/21/19 Active colestipol (COLESTID) 1 g tablet Take 1 tablet by mouth Daily. 10/23/19 Active famotidine (PEPCID) 40 MG tablet Take 1 tablet by mouth Daily. 12/10/19 Active OneTouch Ultra Test test strip 08/21/19 Active omeprazole (priLOSEC) 40 MG capsule Take 1 capsule by mouth Daily. 10/12/19 Active Xarelto 15 MG tablet Take 1 tablet by mouth Daily. 10/12/19 Active lidocaine (XYLOCAINE) 5 % ointment Apply 1 Application topically to the appropriate area as directed. 11/04/19 Active metFORMIN (GLUCOPHAGE) 1000 MG tablet Take 1 tablet by mouth 2 (Two) Times a Day With Meals. 10/12/19 Active metoprolol succinate XL (TOPROL-XL) 50 MG 24 hr tablet Take 1 tablet by mouth Daily. 10/31/19 Active Mounjaro 2.5 MG/0.5ML solution auto-injector Inject under the skin into the appropriate area as directed 1 (One) Time Per Week. 10/23/19 25 Active traMADol (ULTRAM) 50 MG tabletIndicati ons:Encounter for medication monitoring TAKE 1 TO 2 TABLETS BY MOUTH EVERY 8 HOURS NEEDED 180 tablet 4 12/14/19 25 Active cyclobenzaprin e (FLEXERIL) 5 MG tablet Take 2 tablets by mouth 3 (Three) Times a Day As Needed for Muscle Spasms. 270 tablet 1 12/14/19 25 Active metFORMIN ER (GLUCOPHAGE-XR ) 500 MG 24 hr tablet 10/30/19 23 025 Discontinue d(Patient Reported Not Taking) Mounjaro 5 MG/0.5ML solution auto-injector Inject 1 syringe under the skin into the appropriate area as directed 1 (One) Time Per Week. 06/08/19 025 Discontinue d(Patient Reported Not Taking) metoprolol succinate XL (TOPROL-XL) 25 MG 24 hr tablet Take 1 tablet by mouth Daily. 06/07/19 025 Discontinue d(Patient Reported Not Taking) traMADol (ULTRAM) 50 MG tabletIndicati ons:Encounter for medication monitoring TAKE 1 TO 2 TABLETS BY MOUTH EVERY 8 HOURS NEEDED 180 tablet 4 06/21/19 25 025 Discontinue d(Reorder) cyclobenzaprin e (FLEXERIL) 5 MG tablet TAKE 2 TABLETS BY MOUTH 3 TIMES DAILY NEEDED FOR MUSCLE SPASMS 270 tablet 10/22/19 025 Discontinue d(Reorder) Active Problems Problem Noted Date Diagnosed Date [...] for medication monitoring 11/08/2023 Assessment & Plan (12/13/2024 11:30 AM EDT): * Tramadol PRN 50 mg every 6 hours * Controlled substance agreement signed/updated 12/13/24 Check PRANAV and Drug screen as required. 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 Osteoarthritis 11/07/2023 Assessment & Plan (12/13/2024 11:40 AM EDT): 1. NSAIDs were stopped due [...] Screen - Urine, Clean Catch C-reactive Protein Assessment & Plan (06/20/2024 3:09 PM EDT): [...] Seronegative rheumatoid arthritis 11/07/2023 Assessment & Plan (12/13/2024 11:40 AM EDT): * Medications/treatments/interventions tried included: Diclofenac, [...] Screen - Urine, Clean Catch C-reactive Protein Assessment & Plan (06/20/2024 3:09 PM EDT): [...] Encounters Date Type Department Care Team Description 12/17/2024 Results Follow-Up [facility] [address] [place] [phone] Cash Khanna DO 12/13/2024 11:15 AM EDT Office Visit [facility] [address] [place] [phone] Cash Khanna DO Seronegative rheumatoid arthritis (Primary Dx); Primary osteoarthritis involving multiple joints; Encounter for medication monitoring; Positive QuantiFERON-TB Gold test 12/13/2024 Travel 10/18/2024 Refill [facility] [address] [place] [phone] Adrianne Hdez APRN from Last 3 Months [...] rest Inhaled Oxygen Concentration - - Weight 89 kg (196 lb 3.2 oz) 12/13/2024 11:08 AM EDT Height 175.3 cm (5' 9.02 ) 12/13/2024 1 1:08 AM EDT Body Mass Index 28.96 12/13/2024 11:08 AM EDT Plan of Treatment Upcoming Encounters Date Type Department Care Team (Late st Contact Info) Description 06/16/2025 11:15 AM EDT Office Visit [facility] [address] [phone] Cash Khanna DO [address] [address] Health Maintenance Due Date Last Done Comments [...] HEMOGLOBIN A1C 01/06/2023 HEPATITIS C SCREENING 01/06/2023 INFLUENZA VACCINE 10/25/2024 01/31/2024, , 01/09/2020, Additional history exists COVID-19 Vaccine (1 - 2023-2 5 season) 2024 Pneumococcal Vaccine 50+ Completed 022, 01/31/2019, 01/11/2018, Additional history exists Procedures Procedure Name Priority Date/Time Associated Diagnosis Comments CBC AND DIFFERENTIAL Routine 12/13/2024 12:39 PM EDT C-REACTIVE PROTEIN Routine 12/13/2024 12 :39 PM EDT Seronegative rheumatoid arthritis Primary osteoarthritis involving multiple joints Encounter for medication monitoring Positive QuantiFERON-TB Gold test URINE DRUG SCREEN Routine 12/13/2024 12: 39 [...] for medication monitoring Positive QuantiFERON-TB Gold test from Last 3 Months Results * Urine Drug Screen - Urine, Clean Catch (12/13/2024 12:39 PM EDT) Amphetamine, Urine Qual Negative Cutoff=10 00 ng/mL [...] is inconsistent with an expected outcome. Email: [email or web address] Urine Urine specimen obtained by clean catch procedure / Unknown 12/13/2024 12:39 PM EDT 12/13/2024 N[facility]ative [facility] - 12/17/2024 8:08 AM EDT Performed at: 01 - [address] [id number] [place]: Kenroy Mills PhD, Phone: [phone] Patient Fasting: N Cash Khanna DO URINE ORDERABLES Final Result [facility] (AMBULATORY) [address] [place] [address], [facility] [address] [place] [address], * Sedimentation Rate (12/13/2024 12:39 PM EDT) [facility] Sed Rate 29 0 - 30 mm/hr [facility] Blood 12/13/2024 12:3 9 PM EDT 12/13/2024 Narrative [facility] ([facility]BULAT[facility]) - 12/17/2024 8:08 AM EDT Performed at: 02 - [facility] [address] [place], [place] [id number] [place]: Matthew Clark PhD, Phone: [phone] Patient Fasting: N Cash Khanna LAB BLOOD ORDERABLES F inal Result [facility] ([facility]) [address] [place] [address], [facility] [address] [place] [address], * (ABNORMAL) CBC & Differential (12/13/2024 12:39 [...] 12:3 9 PM EDT 12/13/2024 Narrative [facility] (AMBULATORY) - 12/17/2024 8:08 AM EDT Performed at: [address] [id number] [place]: Matthew Clark PhD, Phone: [phone] Patient Fasting: N [facility] [place] [facility] BLOOD ORDERABLES F inal Result Performing Organization Address City/[facility] [address]/ZIP Co de Phone Number [facility] [address] [place] [id number], [facility] [address] [place] [address], [place] [phone] * C-reactive Protein (12/13/2024 12:39 PM EDT) [facility] C-Reactive Protein 2 0 - 10 mg/L [facility] Blood 12/13/2024 12:3 9 PM EDT 12/13/2024 [facility] (AMBULATORY) - 12/17/2024 8:08 AM EDT Performed at: [address] [id number] [place]: Matthew Clark PhD, Phone: [phone] Patient Fasting: N Cash [employer] LAB BLOOD ORDERABLES F inal Result Performing Organization Address City/[facility] [address]/ZIP Co de Phone Number [facility] [address] [place] [address], [facility] [address] [place] [address], * (ABNORMAL) Comprehensive Metabolic Panel (12/13/2024 12:39 [...] 12/13/2024 12:3 9 PM EDT 12/13/2024 Narrative [facility] - 12/17/2024 8:08 AM EDT Performed at: 02 - [address] [id number] [place]: Matthew Clark PhD, Phone: [phone] Patient Fasting: N us Cash Khanna DO LAB BLOOD ORDERABLES F inal Result [facility] [address] [place] [address], [place] [phone] [facility] [address] [place] [address], from Last 3 Months Insurance [facility] [employer] PPO Care Teams Helper Chicken Farm Relationship Specialty Start Date End Date Columba Rodríguez APRN [address] [place] [address] [place] [address] PCP - General Family Medicine 11/10/23
--- OUTSIDE RECORDS SUMMARY | 2024-12-24 10:29 | XMS_ITS | Encounter Summary ---
Author Organization [employer] ([place], [place], [place], [place]) Address [address] [place] [address] Care Team Providers Care Database Designer Name Role Phone Unavailable Primary Care Provider Unavailabl e Encounter Details Date Type Department Care Team (Late st Contact Info) Description 12/22/2020 Transcribed Document [facility] [place] [facility] [place] [address] ProviderJaime MD [address] [place], [place] [id number] Social History Tobacco Use Types Packs/Day Years [...] or 4 frozen water bottles in the [facility] CUBE. Continue to use Incentive Spirometer [...] Barley. Bulgur wheat. Millet. Bran muffins. Popcorn. [place] wafer crackers. Vegetables Sweet potatoes. Spinach. Kale. Artichokes. Cabbage. Broccoli. Green peas. Carrots. Squash. Fruits Berries. Pears. Apples. Oranges. Avocados. Prunes and raisins. Dried figs. Meats and Other Protein Sources Queets, kidney, amador, and soy beans. Split peas. [...] 1 katy has 11 g of protein. Trinity seeds ??? 1 oz has 5.5 g [...] the floor. Place frequently used items in iipv-sv-uvfnm places Keep electrical cables out of the [...] Using the bathroom. ? Using household cut off operator scorer or toxic chemicals. ? Touching or taking [...] activities are safe for you. ??? Take yrjh-uzt-[id number] and prescription medicines only as told by [...] provider. Document Revised: 03/16/2018 Document Reviewed: 10/27/2017 [employer] Patient Education ? 2020 [employer] documented in this encounter Plan of Treatment Not on file documented as of this encounter Visit Diagnoses Not on filedocumented in this encounter
--- OUTSIDE RECORDS SUMMARY | 2024-12-24 10:29 | XMS_ITS | Encounter Summary ---
[facility] Address [address] [place] [address] Care Team Providers Care Hvac Engineering Technician Name Role Phone Columba Rodríguez APRN Primary Care Provider [phone] Encounter Details Date Type Department Care Team (Latest Contact Info) Description 12/13/2024 Travel Social History Tobacco Use Types Packs/Day Years [...] Description 06/16/2025 11:15 AM EDT Office Visit [facility] [address] [phone] Cash Khanna DO [address] [address] documented as of this encounter Visit Diagnoses Not on filedocumented in this encounter Care Teams Hvac Engineering Technician Relationship Specialty Start Date End Date Columba Rodríguez APRN [address] [place] [address] PCP - General Family Medicine 11/10/23 documented as of this encounter
--- OUTSIDE RECORDS SUMMARY | 2024-12-24 10:29 | XMS_ITS | Encounter Summary ---
Author Organization [employer] ([place], [place], [place], [place]) Address [address] [place] [address] Care Team Providers Care Associate Programmer Name Role Phone Unavailable Primary Care Provider Unavailabl e Encounter Details Date Type Department Care Team (Late st Contact Info) Description 12/09/2020 Transcribed Document [facility] [place] Family Medicine [address] [place] [address] ProviderJaime MD [address] [place], [place] [id number] Social History Tobacco Use Types Packs/Day Years [...] : Standing scale Weight Entry Format : [place] Clinical Dosing Weight : 95.91 kg Weight, Pounds : 211 lb Body Surface Area (BSA) : 2.12 m2 Body Mass Index : 31.2 kg/m2 (HI) [place] Body Weight : 70 kg Michaela Alvarez Rn - 12/09/2020 16:02 EDT Height Source : Stated Height Entry Format : [place] Michaela Alvarez Rn - 12/09/2020 15:57 EDT [...] Michaela Alvarez Rn - 12/09/2020 16:02 EDT [place] Suicide Severity Rating Scale (C-SSRS) CSSRS Past [...] Obtained From : Patient Primary Language : Iranian Preferred Communication Mode : Verbal Communication Barrier : None [facility]om[facility] Nurse Practitioner Needed : No Michaela Alvarez Rn - [...]
--- OUTSIDE RECORDS SUMMARY | 2024-12-24 10:29 | XMS_ITS | Encounter Summary ---
Author Organization [employer] ([place], [place], [place], [place]) Address [address] [place] [address] Care Team Providers Care Fresh Work Inspector Name Role Phone Unavailable Primary Care Provider Unavailabl e Encounter Details Date Type Department Care Team (Late st Contact Info) Description 12/09/2020 Transcribed Document [facility] [place] Family Medicine [address] [place] [address] ProviderJaime MD [address] [place], [place] [id number] Social History Tobacco Use Types Packs/Day Years [...]
--- OUTSIDE RECORDS SUMMARY | 2024-12-24 10:29 | XMS_ITS | Encounter Summary ---
Author Organization [employer] ([place], [place], [place], [place]) Address [address] [place] [address] Care Team Providers Care Consulting Technical Manager Name Role Phone Unavailable Primary Care Provider Unavailabl e Encounter Details Date Type Department Care Team (Late st Contact Info) Description 12/23/2020 Transcribed Document [facility] [place] [facility] [place] [address] ProviderJaime MD [address] [place] [id number] Social History Tobacco Use Types Packs/Day Years [...] EDT Electronically signed by Adolph Crowder Conversion Heat And Vent Aircraft Mechanic Cerner at 07/09/2022 10:38 AM CDT documented in this encounter Plan of Treatment Not on file documented as of this encounter Visit Diagnoses Not on filedocumented in this encounter
--- OUTSIDE RECORDS SUMMARY | 2024-12-24 10:29 | XMS_ITS | Encounter Summary ---
Author Organization [employer] ([place], [place], [place], [place]) Address [address] [place] [address] Care Team Providers Care Professional Application Designer Name Role Phone Unavailable Primary Care Provider Unavailabl e Encounter Details Date Type Department Care Team (Late st Contact Info) Description 12/24/2020 Transcribed Document [facility] [place] [facility] [place] [address] ProviderJaime MD [address] [place] [phone] Social History Tobacco Use Types Packs/Day Years [...] right total knee replacement, final condition improved. /[id number] MD RAO Gibbs Jr/DIANNA / RAO / MODL /[id number] Electronically signed by Adolph Crowder Conversion Substation Operator Automatic Cerner at 07/09/2022 10:52 AM CDT documented in this encounter Plan of Treatment Not on file documented as of this encounter Visit Diagnoses Not on filedocumented in this encounter
--- OUTSIDE RECORDS SUMMARY | 2024-12-24 10:29 | XMS_ITS | Encounter Summary ---
Author Organization [facility] Address [address] [place] [address] Care Team Providers Care Sessions Clerk Name Role Phone Columba Rodríguez APRN Primary Care Provider [phone] Encounter Details Date Type Department Care Team (Late Contact Info) Description 12/17/2024 Results Follow-Up [facility] [address] [phone] Cash Khanna DO [address] [phone] Social History Tobacco Use Types Packs/Day Years [...] Department Care Team (Late Contact Info) Description 06/16/2025 11:15 AM EDT Office Visit [facility] [address] [phone] Cash Khanna DO [address] [phone] documented as of this encounter Visit Diagnoses Not on filedocumented in this encounter Care Teams Sessions Clerk Relationship Specialty Start Date End Date Columba Rodríguez APRN [address] [place] [address] PCP - General Family Medicine 11/10/23 documented as of this encounter
--- OUTSIDE RECORDS SUMMARY | 2024-12-24 10:29 | XMS_ITS | Encounter Summary ---
Author Organization [employer] ([place], [place], [place], [place]) Address [address] [place] [address] Care Team Providers Care Mid Level Project Manager Name Role Phone Unavailable Primary Care Provider Unavailabl e Encounter Details Date Type Department Care Team (Late st Contact Info) Description 12/23/2020 Transcribed Document [facility] [place] [facility] [address] ProviderJaime MD [address] [place], [place] [id number] Social History Tobacco Use Types Packs/Day Years [...] ESPARZA /Sex: 1950 Male Med Rec #: [id number] Physician: KAYLA ZIMMERMAN JR, JR, MD-ORT Financial #: [id number] Pt. Type: O Room/Bed: Admit/Disch: 12/23/20 04:16:00 - Institution: [facility] [place]Op Case Attendance Entry 1 Entry 2 Entry 3 Case Attendee KAYLA ZIMMERMAN JR, JR, TARA MERA APRN,HAYDER KOROMA, LUCIE CHANCEORT Role Performed Surgeon/Proceduralist, CONTACT CENTER ENGINEER/Nurse Tire Regrooving Machine Operator Motor Equipment Commanding Officer, First First Time In 12/23/20 07:51:00 12/23/20 [...] 5 Entry 6 Case Attendee Stephan Boyce, ROVING TECHNICIAN/TESTING ENGINEER GET ARIAS ST Peel, Polly, Scub Tech Role Performed Game Author, First Scrub, First Scrub, Second Time In [...] Case Attendee OTHER, ATTENDEE #1 NGOZI PETTY, CONTACT CENTER ENGINEER Role Performed Vendor CONTACT CENTER ENGINEER/Nurse Tire Regrooving Machine Operator Time In 12/23/20 07:51:00 12/23/20 08:29:00 Time Out 12/23/20 09:55:00 12/23/20 08:41:00 Procedure Knee Total Joint Knee Total Joint Replacement Replacement Other Attendee [place] CONTACT CENTER ENGINEER BREAK Superficial Wound Closed By: Thom Modified By: HAYDER EASON RN LONGSWORTH, GARY, LUCIE 12/23/20 07:19:17 12/23/20 08:29:30 SJE IntraOp Case Attendance Audit 12/23/20 09:55:23 Enterprise Engineer: LONGGA Modifier: LONGGA 1 <+> Time Out [...] Procedure Knee Total Joint Replacement 12/23/20 08:48:55 Enterprise Engineer: LONGGA Modifier: LONGGA 8 <+> Time Out 8 <*> Procedure Knee Total Joint Replacement 12/23/20 08:29:30 Enterprise Engineer: LONGGA Modifier: LONGGA <+> 8 Case Attendee <+> 8 Role Performed <+> 8 Time In <+> 8 Procedure <+> 8 Other Attendee 12/23/20 08:25:18 Enterprise Engineer: LONGGA Modifier: LONGGA 1 <+> Time In [...] Procedure Knee Total Joint Replacement 12/23/20 07:25:50 Enterprise Engineer: LONGGA Modifier: LONGGA <+> 1 Procedure 2 [...] SJE IntraOp Case Times Audit 12/23/20 09:55:21 Enterprise Engineer: LONGGA Modifier: LONGGA <+> 1 Out Room Time <+> 1 Stop Time <+> 1 Stop Time 12/23/20 08:21:13 Enterprise Engineer: LONGGA Modifier: LONGGA <+> 1 Start Time [...] SJE IntraOp Counts Verification Audit 12/23/20 09:01:12 Enterprise Engineer: LONGGA Modifier: LONGGA <+> 2 Procedure <+> [...] HAYDER EASON, LUCIE, Accompanied by TARA MERA APRN,CONTACT CENTER ENGINEER Last Modified By: HAYDER EASON RN 12/23/20 09:08:10 SJE IntraOp Dressing and Packing Entry 1 Type Dressing Location RIGHT KNEE Wound Dressing Item Papo Supplemental Limb immobilizer, Cold Applications pack Applied By Stephan Boyce, ROVING TECHNICIAN/TESTING ENGINEER Other Comments JONATHAN WOUND DRESSING Last [...] RN 12/23/20 07:24:40 SJE IntraOp General Case Plow Mechanic 1 Case Information OR OR 02 SJE Case Level 1 Room Verified Yes Wound Class I - Clean Specialty Orthopedic Anesthesia Type General ASA Class 3 Diagnosis Preop Diagnosis DEGENERATIVE JOINT DISEASE, RIGHT KNEE Postop Same As Preop Yes Postop Diagnosis DEGENERATIVE JOINT DISEASE, RIGHT KNEE Last Modified By: HAYDER EASON RN 12/23/20 08:27:58 SJE IntraOp General Case Data Audit 12/23/20 08:27:58 Enterprise Engineer: YVETTE Modifier: LONGGA 1 <*> OR OR [...] PATELLA ITOTAL JIGS CR ITOTAL ID Identification [id number] Description Implant Quantity 2 1 1 Implant Site RIGHT KNEE RIGHT KNEE RIGHT KNEE Implant Identification Model Number Implant [id number] Identification Serial Number Implant [id number] Identification Lot Number Implant Blake:Havana Conformis Conformis Identification Orthopaedics Produce Production Team Member Name: Implant [id number] Identification Catalog Number Implant Size Implant Has an Yes Yes Yes Expiration Date Implant Expiration 01/24/22 09/23/22 12/24/21 Date Wasted Radioactive Material Time Implanted Tissue Implant Continue for Tissue Implant Documentation Tissue Identification Number Graft Prep Per Produce Production Team Member Instructions: Tissue Preparation Method: Reconstitution Solution: Reconstitution Solution Lot Number Reconstitution Solution Expiration Date: Thawing Solution Thawing Solution Lot Number Thawing Solution Expiration Date Preparation Materials, Other Preparation Materials, Other Lot Number Preparation Materials, Other Expiration Date Tissue Prepared/Processed By Produce Production Team Member Paperwork Completed Implant Type Comment Last Modified [...] KT CR FULL ITOTAL ID Identification KLEVER [id number] Description Implant Quantity 1 1 1 Implant Site RIGHT KNEE RIGHT KNEE RIGHT KNEE Implant Identification Model Number Implant [id number] Identification Serial Number Implant Identification Lot Number Implant Conformis Conformis Conformis Identification Produce Production Team Member Name: Implant [id number] Identification Catalog Number Implant Size Implant Has an Yes Yes Yes Expiration Date Implant Expiration 12/24/21 12/24/21 12/24/21 Date Wasted Radioactive Material Time Implanted Tissue Implant Continue for Tissue Implant Documentation Tissue Identification Number Graft Prep Per Produce Production Team Member Instructions: Tissue Preparation Method: Reconstitution Solution: Reconstitution Solution Lot Number Reconstitution Solution Expiration Date: Thawing Solution Thawing Solution Lot Number Thawing Solution Expiration Date Preparation Materials, Other Preparation Materials, Other Lot Number Preparation Materials, Other Expiration Date Tissue Prepared/Processed By Produce Production Team Member Paperwork Completed Implant Type Comment Last Modified By: HAYDER EASON RN LONGSWORTH, GARY, RN LONGSWORTH, GARY, RN 12/23/20 08:49:46 12/23/20 08:51:06 12/23/20 08:52:02 SJE IntraOp Implant Log Audit 12/23/20 08:52:02 Enterprise Engineer: LONGGA Modifier: LONGGA <+> 6 Implant Identification Description <+> 6 Implant Identification Serial Number <+> 6 Implant Identification Produce Production Team Member Name: <+> 6 Implant Expiration Date <+> 6 Implant Site <+> 6 Implant Quantity <+> 6 Implant Identification Catalog Number <+> 6 Implant Type <+> 6 Implant Has an Expiration Date <+> 6 Type 12/23/20 08:51:06 Enterprise Engineer: LONGGA Modifier: LONGGA <+> 5 Implant Identification Description <+> 5 Implant Identification Serial Number <+> 5 Implant Identification Produce Production Team Member Name: <+> 5 Implant Expiration Date <+> 5 Implant Site <+> 5 Implant Quantity <+> 5 Implant Identification Catalog Number <+> 5 Implant Type <+> 5 Implant Has an Expiration Date <+> 5 Type 12/23/20 08:49:46 Enterprise Engineer: LONGGA Modifier: LONGGA <+> 4 Implant Identification Description <+> 4 Implant Identification Serial Number <+> 4 Implant Identification Produce Production Team Member Name: <+> 4 Implant Expiration Date <+> 4 Implant Site <+> 4 Implant Quantity <+> 4 Implant Identification Catalog Number <+> 4 Implant Type <+> 4 Implant Has an Expiration Date <+> 4 Type 12/23/20 08:48:24 Enterprise Engineer: LONGGA Modifier: LONGGA <+> 3 Implant Expiration Date 12/23/20 08:48:23 Enterprise Engineer: LONGGA Modifier: LONGGA <+> 3 Implant Identification Description <+> 3 Implant Identification Serial Number <+> 3 Implant Identification Produce Production Team Member Name: <+> 3 Implant Site <+> 3 Implant Quantity <+> 3 Implant Identification Catalog Number <+> 3 Implant Type <+> 3 Implant Has an Expiration Date <+> 3 Type 12/23/20 08:47:19 Enterprise Engineer: LONGGA Modifier: LONGGA <+> 2 Implant Identification Description <+> 2 Implant Identification Lot Number <+> 2 Implant Identification Produce Production Team Member Name: <+> 2 Implant Expiration Date <+> [...] w/ vancomycin 1Gm vial - epinephrine 1:100,000 [id number] 20ml vial - [id number] Combo Med List 4 - Combo Med [...] SJE IntraOp Medication Admin Audit 12/23/20 08:39:42 Enterprise Engineer: LONGGA Modifier: LONGGA <+> 5 Medication/Irrigant <+> [...] JR, MD-ORT, SAMARIA, TARA, URSULA,PAPO, Austen, Stephan, ROVING TECHNICIAN/TESTING ENGINEER Position Verified Positioning Yes Verified by [...] related to extraneous objects Last Modified By: AHYDER EASON RN 12/23/20 09:01:35 SJE IntraOp Skin [...] SJE IntraOp Surgical Procedures Audit 12/23/20 09:51:54 Enterprise Engineer: LONGGA Modifier: LONGGA 1 <*> Procedure Knee Total Joint Replacement 1 <+> Stop 12/23/20 08:21:22 Enterprise Engineer: LONGGA Modifier: LONGGA <+> 1 Start SJE IntraOp Temp Regulation Devices Entry 1 Temp Regulation Temperature Warm blankets Regulation Device Temperature Upper body Regulation Site Temperature SAMARIA, TARA, CASER UP,CONTACT CENTER ENGINEER Regulation Device Applied by Last Modified By: [...] SJE IntraOp Time Out Audit 12/23/20 08:31:31 Enterprise Engineer: YVETTE Modifier: YVETTE 1 <+> Surgeon 1 [...] Padded Under Cuff Applied By Stephan Boyce, KATHI/TESTING ENGINEER Times Start Time 12/23/20 08:10:00 Stop Time 12/23/20 08:59:00 Last Modified By: HAYDER EASON RN 12/23/20 09:00:54 SJE IntraOp Tourniquet Audit 12/23/20 09:00:54 Enterprise Engineer: YVETTE Modifier: YVETTE <+> 1 Stop Time Case Comments <None> Finalized By: HAYDER EASON, RN Document Signatures Signed By: HAYDER EASON RN 12/23/20 09:59 Electronically signed by Lakesha [facility] Conversion Electrical/Instrument Technician Cerner at 07/09/2022 10:43 AM CDT documented in this encounter Plan of Treatment Not on file documented as of this encounter Visit Diagnoses Not on filedocumented in this encounter
--- OUTSIDE RECORDS SUMMARY | 2024-12-24 10:29 | XMS_ITS | Encounter Summary ---
Author Organization [facility] Address [address] [place] [address] Care Team Providers Care Hand Thermal Cutter Name Role Phone Columba Rodríguez APRN Primary Care Provider [phone] Shay Biggs MD Unavailable [phone] Encounter Details Date Type Department Care Team (Late st Contact Info) Description 11/04/2024 Telephone [facility] [address], [address] [place] [address] Baldemar Gibbs MD [address] [place] [address] Social History Tobacco Use Types [...] on filedocumented in this encounter Care Teams Hand Thermal Cutter Relationship Specialty Start Date End Date Columba Rodríguez APRN [address] [place] [address] [place] [id number] PCP - General 11/04/24 Shay Biggs MD [address] [place] [address] Referring Physician Cardiology 11/04/24 documented as of this encounter
--- OUTSIDE RECORDS SUMMARY | 2024-12-24 10:29 | XMS_ITS | Encounter Summary ---
Author Organization [employer] ([place], [place], [place], [place]) Address [address] [place] [address] Care Team Providers Care Health Occupations Teacher Name Role Phone Unavailable Primary Care Provider Unavailabl e Encounter Details Date Type Department Care Team (Late st Contact Info) Description 12/08/2020 Transcribed Document [facility] [place] [address] [place] [address] ProviderJaime MD [address] [place], [place] [phone] Social History Tobacco Use Types Packs/Day Years [...] Health Plan: [employer] MEDICARE REPL Policy Number: [id number] Authorization Number: Insurance Primary Name : [employer] MEDICARE REPL Policy Number: [id number] Authorization Status-Primary : Opo status approv Authorized Service Begin Date-Primary : 12/16/2020 EDT Observation Authorization Nbr-Primary : [id number] Authorization Comments-Primary : A[employer] Medicare approved for outpt per availity Historical Authorization Comments-Primary : No Authorization Comments Found ROLANDO TABARES RN-Utilization Review - 12/08/2020 15:21 EDT Electronically signed by Lakesha [facility] Conversion Shag Truck Driver Cerner at 07/09/2022 10:42 AM CDT documented in this encounter Plan of Treatment Not on file documented as of this encounter Visit Diagnoses Not on filedocumented in this encounter
--- OUTSIDE RECORDS SUMMARY | 2024-12-24 10:29 | XMS_ITS | Clinical Summary ---
Author Organization [employer] ([place], [place], [place], [place]) Address [address] [place], [place] [id number] Care Team Providers Care Geotechnical Field Technician Name Role Phone Unavailable Primary Care [...] Date Milton rded Speak language other than Bulgarian at home Not on file 01/23/2024 Want [...] of Treatment Not on file Insurance [facility] [place] [id number] [facility] MEDICARE ADVANTAGE
--- OUTSIDE RECORDS SUMMARY | 2024-12-24 10:29 | XMS_ITS | Encounter Summary ---
Author Organization [facility] Address [address] [place] [id number] Care Team Providers Care Port Steward Name Role Phone Columba Rodríguez APRN Primary Care Provider [phone] Reason for Visit * Reason Comments Med Refill Encounter Details Date Type Department Care Team (Late Contact Info) Description 09/01/2023 Refill [facility] PULMONARY & CRITICAL CARE MEDICINE [address] [place] [address] Isai Tran MD [address] [place] [address] Social History Tobacco Use Types Packs/Day Years [...] Description 06/16/2025 11:15 AM EDT Office Visit [facility] RHEUMATOLOGY [address] [place] [address] Cash Khanna DO [address] [facility] [address] [place], [place] [id number] documented as of this encounter Visit Diagnoses Not on filedocumented in this encounter Care Teams [place] Relationship Specialty Start Date End Date Columba Rodríguez APRN [address] [place] [id number] PCP - General Family Medicine 11/10/23 documented as of this encounter
--- OUTSIDE RECORDS SUMMARY | 2024-12-24 10:29 | XMS_ITS | Encounter Summary ---
Author Organization [employer] ([place], [place], [place], [place]) Address [address] [place] [address] Care Team Providers Care Administrative Job Titles Name Role Phone Unavailable Primary Care Provider Unavailabl e Encounter Details Date Type Department Care Team (Late st Contact Info) Description 12/23/2020 Transcribed Document [facility] [place] [address] [place] [address] ProviderJaime MD [address] [place], [place] [phone] Social History Tobacco Use Types Packs/Day Years [...] III /Sex: 1950 Male Med Rec #: [id number] Physician: KAYLA ZIMMERMAN JR, JR, MD-ORT Financial #: [id number] Pt. Type: O Room/Bed: Admit/Disch: 12/23/20 04:16:00 - Institution: [facility] [place] PostOp Case Times Entry 1 In PACU II 12/23/20 11:13:00 Ready for PACU II 12/23/20 13:49:00 Discharge Discharge from PACU 12/23/20 13:49:00 II Last Modified By: Rosa Montes RN 12/23/20 14:04:05 Finalized By: Rosa Montes, RN Document Signatures Signed By: Rosa Montes RN 12/23/20 14:04 Electronically signed by Lakesha [facility] Conversion Maintenance Of Way Supervisor Cerner at 07/09/2022 10:45 AM CDT documented in this encounter Plan of Treatment Not on file documented as of this encounter Visit Diagnoses Not on filedocumented in this encounter
--- OUTSIDE RECORDS SUMMARY | 2024-12-24 10:29 | XMS_ITS | Encounter Summary ---
Author Organization [facility] ([place], [place], [place], [place]) Address [address] [place] [address] Care Team Providers Care Compensation Director Name Role Phone Unavailable Primary Care Provider Unavailabl e Reason for Referral * Consultation (Routine) - Closed Specialty Diagnoses / Procedures Referred By Mitchell dela cruz Referred To Contact Neurology Diagnoses Seizure (HCC) Kirsten Gates [address] [place] [address] Phone: tel: Mac Leonard MD [address] [facility] [facility] [address] [place] [address] Phone: tel: fax: Referral ID Status Reason Start Date Expiration Date V isits Requested Visits Authorized [id number] Closed Specialty Services Required 01/03/2024 01/02/2025 1 1 Encounter Details Date Type Department Care Team (Late st Contact Info) Description 01/03/2024 Outside Orders [facility] Neurology [address] [facility] [facility] [address] [place] [address] [place] [address] Seizure (HCC) (Primary Dx) Social History Tobacco [...]
--- OUTSIDE RECORDS SUMMARY | 2024-12-24 10:29 | XMS_ITS | Encounter Summary ---
Author Organization [employer] ([place], [place], [place], [place]) Address [address] [place] [address] Care Team Providers Care Pediatric Cardiologist Name Role Phone Unavailable Primary Care Provider Unavailabl e Encounter Details Date Type Department Care Team (Late st Contact Info) Description 12/23/2020 Transcribed Document [facility] [place] [address] [place] [address] ProviderJaime MD [address] [place], [place] [phone] Social History Tobacco Use Types Packs/Day Years [...]
--- OUTSIDE RECORDS SUMMARY | 2024-12-24 10:29 | XMS_ITS | Encounter Summary ---
Author Organization [employer] ([place], [place], [place], [place]) Address [address] [place] [address] Care Team Providers Care Hotel Front Desk Agent Name Role Phone Unavailable Primary Care Provider Unavailabl e Encounter Details Date Type Department Care Team (Late st Contact Info) Description 12/23/2020 Transcribed Document [facility] [place] [facility] [place] [address] ProviderJaime MD [address] [place] [id number] Social History Tobacco Use Types Packs/Day Years [...] to Post Acute Providers : Yes [facility] Quality Web Info Shared w [...]
--- OUTSIDE RECORDS SUMMARY | 2024-12-24 10:29 | XMS_ITS | Encounter Summary ---
Author Organization [employer] ([place], [place], [place], [place]) Address [address] [place] [address] Care Team Providers Care Elevator Supervisor Name Role Phone Unavailable Primary Care Provider Unavailabl e Encounter Details Date Type Department Care Team (Late st Contact Info) Description 12/23/2020 Transcribed Document [facility] [place] [address] [place] [address] ProviderJaime MD [address] [place], [place] [phone] Social History Tobacco Use Types Packs/Day Years [...] III /Sex: 1950 Male Med Rec #: [id number] Physician: KAYLA ZIMMERMAN JR, JR, MD-ORT Financial #: [id number] Pt. Type: O Room/Bed: Admit/Disch: 12/23/20 04:16:00 - Institution: [facility] [place] PreOp Case Times Entry 1 In Preop 12/23/20 05:15:00 Ready for Holding n/a Room Patient Ready for 12/23/20 06:42:00 Surgery Patient Out of Preop 12/23/20 07:50:00 Patient Out of n/a Holding Room Last Modified By: Aden Boyce RN 12/23/20 07:46:17 SJE PreOp Case Times Audit 12/23/20 07:46:17 Rod Hanger: [email or web address] Modifier: [email or web address] <+> 1 Patient Out of Preop Finalized By: Aden Boyce, RN Document Signatures Signed By: Aden Boyce RN 12/23/20 07:46 Electronically signed by Pedro Crowder Conversion Senior Java Software Engineer Cerner at 07/09/2022 10:40 AM CDT documented in this encounter Plan of Treatment Not on file documented as of this encounter Visit Diagnoses Not on filedocumented in this encounter
--- OUTSIDE RECORDS SUMMARY | 2024-12-24 10:29 | XMS_ITS | Encounter Summary ---
Author Organization [employer] ([place], [place], [place], [place]) Address [address] [place] [address] Care Team Providers Care Supervisor Mapping Name Role Phone Unavailable Primary Care Provider Unavailabl e Encounter Details Date Type Department Care Team (Late st Contact Info) Description 12/16/2020 Transcribed Document [facility] [place] [facility] [place] [address] ProviderJaime MD [address] [place], [place] [phone] Social History Tobacco Use Types Packs/Day Years [...]
--- OUTSIDE RECORDS SUMMARY | 2024-12-24 10:29 | XMS_ITS | Encounter Summary ---
Author Organization [employer] ([place], [place], [place], [place]) Address [address] [place] [address] Care Team Providers Care Account Executive Metalworking Name Role Phone Unavailable Primary Care Provider Unavailabl e Encounter Details Date Type Department Care Team (Late st Contact Info) Description 12/23/[address] [facility] [place] [facility] [place] [address] ProviderJaime MD [address] [place], [place] [address] Social History Tobacco Use Types Packs/Day Years [...]
--- OUTSIDE RECORDS SUMMARY | 2024-12-24 10:29 | XMS_ITS | Referral Summary ---
Author Organization [employer] ([place], [place], [place], [place]) Address [address] [place] [address] Care Team Providers Care Asset Management Analyst Name Role Phone Unavailable Primary Care [...] Date Milton rded Speak language other than Kiswahili at home Not on file 01/23/2024 Want [...] Plan of Treatment Not on file Insurance [facility] MEDICARE ADVANTAGE
--- OUTSIDE RECORDS SUMMARY | 2024-12-24 10:29 | XMS_ITS | Encounter Summary ---
Author Organization [employer] ([place], [place], [place], [place]) Address [address] [place] [address] Care Team Providers Care Car Repairer Name Role Phone Unavailable Primary Care Provider Unavailabl e Encounter Details Date Type Department Care Team (Late st Contact Info) Description 12/23/2020 Transcribed Document [facility] [place] [address] [place] [address] ProviderJaime MD [address] [place], [place] [phone] Social History Tobacco Use Types Packs/Day Years [...]
--- OUTSIDE RECORDS SUMMARY | 2024-12-24 10:30 | XMS_ITS | Encounter Summary ---
Author Organization [employer] ([place], [place], [place], [place]) Address [address] [place] [address] Care Team Providers Care Cardiothoracic Physiotherapist Name Role Phone Unavailable Primary Care Provider Unavailabl e Encounter Details Date Type Department Care Team (Late st Contact Info) Description 12/23/2020 Transcribed Document [facility] [address] [place] [address] ProviderJaime MD [address] [place] [address] Social History Tobacco Use Types Packs/Day Years Used Date Smoking Tobacco: Never Assessed Sex and Gender Information Value Date Recorded Sex Assigned at Not on file Legal Sex Male 5:28 PM CDT Gender Identity Not on file Sexual Orientation Not on file documented as of this encounter Miscellaneous Notes * Cerner Conversion Note - Jaime ProviderMD - 12/23/2020 1:22 [place] [address] AYLEEN BLACK III :1950 Visit Time:12/23/2020 What [...] then 6 days after surgery Community Services: [facility] Therapy Home Health Services: [...] When 12/29/2020 09:45 AM EDT Where: [address] [facility] [address] [place] [address] Medications What How Much When Instructions Next [...] or 4 frozen water bottles in the [facility] CUBE. Continue to use Incentive [...] Barley. Bulgur wheat. Millet. Bran muffins. Popcorn. [place] wafer crackers. Vegetables Sweet potatoes. Spinach. Kale. Artichokes. Cabbage. Broccoli. Green peas. Carrots. Squash. Fruits Berries. Pears. Apples. Oranges. Avocados. Prunes and raisins. Dried figs. Meats and Other Protein Sources [place], kidney, amador, and soy beans. Split peas. [...] 1 katy has 11 g of protein. Platte seeds ??? 1 oz has 5.5 g [...] the floor. Place frequently used items in xxen-xe-mwvnh places Keep electrical cables out of the [...] ? Using the bathroom. ? Using household play writer or toxic chemicals. ? Touching or taking [...] activities are safe for you. ??? Take qdwk-wrf-pnvpzfy and prescription medicines only as told by [...] provider. Document Revised: 03/16/2018 Document Reviewed: 10/27/2017 Intern Patient Education ?? 2020 [employer]. acetaminophen (oral) (a SEET a MIN oh fen) Actamin, Anacin AF, Aurophen, Bromo Cummaquid, Children's Tylenol, Mapap, M-Pap, Pharbetol, Silapap Childrens, [...] is a pain reliever and a fever jinriksha driver. There are many brands and forms of [...] may report side effects to FDA at 6-792-YBR-5258. What other drugs will affect acetaminophen? Other drugs may affect acetaminophen, including prescription and cuyn-hwx-wgnpnfl medicines, vitamins, and herbal products. Tell your [...] to ensure that the information provided by sharing.it. ('Multum') is accurate, up-to-date, and complete, but no guarantee is made to that effect. Drug information contained herein may be time sensitive. [employer]Other[employer] information has been compiled for use by healthcare practitioners and consumers in the [place] and therefore [employer] does not warrant that uses outside of the [place] are appropriate, unless specifically indicated otherwise. [employer]Other[employer]'s drug information does not endorse drugs, diagnose patients or recommend therapy. [facility] drug information is an informational resource designed [...] with your doctor, nurse or pharmacist. Copyright 0592-7166 [employer]. Version: 21.. Revision Date: 11/01/2019. aspirin (oral) ( pir in) Arthritis Pain, Aspi-Cor, Aspir-Low, Nusrat Plus, Durlaza, Ecotrin, Miniprin, Vazalore What is the most important information I should know about aspirin? Aspirin can cause Tonia's syndrome, a serious and sometimes fatal condition in children. What is aspirin? Aspirin is a salicylate (fz-OAU-py-ate) that is used to treat pain, and [...] may report side effects to FDA at 5-682-IQW-4394. What other drugs will affect aspirin? Ask [...] drugs may affect aspirin, including prescription and icsk-rum-nhlbdyz medicines, vitamins, and herbal products. Not all [...] to ensure that the information provided by sharing.it. ('Multum') is accurate, up-to-date, and complete, but no guarantee is made to that effect. Drug information contained herein may be time sensitive. [employer]Other[employer] information has been compiled for use by healthcare practitioners and consumers in the [place] and therefore [employer]Other[employer] does not warrant that uses outside of the [place] are appropriate, unless specifically indicated otherwise. [employer] drug information does not endorse drugs, diagnose patients or recommend therapy. [employer] drug information is an informational resource designed [...] effective or appropriate for any given patient. [employer] does not assume any responsibility for any aspect of healthcare administered with the aid of information [facility] provides. The information contained herein is not intended to cover all possible uses, directions, precautions, warnings, drug interactions, allergic reactions, or adverse effects. If you have questions about the drugs you are taking, check with your doctor, nurse or pharmacist. Copyright 6105-8972 sharing.it. Version: 16.03. Revision Date: 09/21/2020. oxycodone (ox [...] The extended-release form of oxycodone is for sppmlx-kpc-bdyuk treatment of pain and should not be [...] against the law. Stop taking all other ohobzd-okt-oxpqu opioid pain medicines when you start taking [...] may report side effects to FDA at 6-422-QYF-4261. What other drugs will affect oxycodone? You [...] may affect oxycodone. This includes prescription and ipfl-goy-virgihu medicines, vitamins, and herbal products. Not all [...] to ensure that the information provided by sharing.it. ('Multum') is accurate, up-to-date, and complete, but no guarantee is made to that effect. Drug information contained herein may be time sensitive. MyOtherDrive information has been compiled for use by healthcare practitioners and consumers in the [place] and therefore MyOtherDrive does not warrant that uses outside of the [place] are appropriate, unless specifically indicated otherwise. MyOther[employer]'s drug information does not endorse drugs, diagnose patients or recommend therapy. [employer] drug information is an informational resource designed [...] effective or appropriate for any given patient. [employer] does not assume any responsibility for any aspect of healthcare administered with the aid of information MyOther[employer] provides. The information contained herein is not intended to cover all possible uses, directions, precautions, warnings, drug interactions, allergic reactions, or adverse effects. If you have questions about the drugs you are taking, check with your doctor, nurse or pharmacist. Copyright 3765-1432 [facility] [employer]. Version: 14.02. Revision Date: 04/23/2020. docusate (oral/rectal) [...] may report side effects to FDA at 1-625-OSX-9434. What other drugs will affect docusate? Other drugs may affect docusate, including prescription and xjxp-pga-lmjcobo medicines, vitamins, and herbal products. Tell your [...] to ensure that the information provided by sharing.it. ('Multum') is accurate, up-to-date, and complete, but no guarantee is made to that effect. Drug information contained herein may be time sensitive. MyOther[employer] information has been compiled for use by healthcare practitioners and consumers in the [place] and therefore MyOther[employer] does not warrant that uses outside of the [place] are appropriate, unless specifically indicated otherwise. MyOther[employer]'s drug information does not endorse drugs, diagnose patients or recommend therapy. [employer] drug information is an informational resource designed [...] effective or appropriate for any given patient. [employer] does not assume any responsibility for any aspect of healthcare administered with the aid of information [employer]Other[employer] provides. The information contained herein is not intended to cover all possible uses, directions, precautions, warnings, drug interactions, allergic reactions, or adverse effects. If you have questions about the drugs you are taking, check with your doctor, nurse or pharmacist. Copyright 7911-6821 sharing.it. Version: 4.01. Revision Date: 10/01/2018. cephalexin (sef [...] may report side effects to FDA at 0-090-GPL-4897. What other drugs will affect cephalexin? Tell your doctor about all your other medicines, especially: ?? metformin; or ?? probenecid. This list is not complete. Other drugs may affect cephalexin, including prescription and ufkg-cgi-ibnhpmy medicines, vitamins, and herbal products. Not all [...] to ensure that the information provided by sharing.it. ('Multum') is accurate, up-to-date, and complete, but no guarantee is made to that effect. Drug information contained herein may be time sensitive. MyOtherDrive information has been compiled for use by healthcare practitioners and consumers in the [place] and therefore MyOtherDrive does not warrant that uses outside of the [place] are appropriate, unless specifically indicated otherwise. [employer] drug information does not endorse drugs, diagnose patients or recommend therapy. [employer] drug information is an informational resource designed [...] effective or appropriate for any given patient. [employer] does not assume any responsibility for any aspect of healthcare administered with the aid of information MyOther[employer] provides. The information contained herein is not intended to cover all possible uses, directions, precautions, warnings, drug interactions, allergic reactions, or adverse effects. If you have questions about the drugs you are taking, check with your doctor, nurse or pharmacist. Copyright 1103-9193 sharing.it. Version: 10.03. Revision Date: 03/30/2020. tramadol (TRAM [...]
--- OUTSIDE RECORDS SUMMARY | 2024-12-24 10:30 | XMS_ITS | Encounter Summary ---
Author Organization [employer] ([place], [place], [place], [place]) Address [address] [place] [address] Care Team Providers Care Inside Sales Specialist Name Role Phone Unavailable Primary Care Provider Unavailabl e Encounter Details Date Type Department Care Team (Late st Contact Info) Description 12/23/2020 Transcribed Document [facility] [address] [place] [address] ProviderJaime MD [address] [place] [id number] Social History Tobacco Use Types Packs/Day Years [...] III /Sex: 1950 Male Med Rec #: [id number] Physician: KAYLA ZIMMERMAN JR, JR, MD-ORT Financial #: [id number] Pt. Type: O Room/Bed: Admit/Disch: 12/23/20 04:16:00 - Institution: [facility] OR PACU Case Times Entry 1 In PACU I 12/23/20 09:56:00 Ready for PACU 12/23/20 11:12:00 Discharge Discharge from PACU 12/23/20 11:12:00 I Last Modified By: Janene Helm RN 12/23/20 11:16:01 [facility] OR PACU Case Times Audit 12/23/20 11:16:01 Pharmacy Benefit Manager: KINZA Modifier: KINZA 1 <*> Ready for PACU Discharge 12/23/20 10:30:00 1 <+> Discharge from PACU I Finalized By: Janene Helm RN Document Signatures Signed By: Janene Helm RN 12/23/20 11:16 documented in this encounter Plan of Treatment Not on file documented as of this encounter Visit Diagnoses Not on filedocumented in this encounter
--- OUTSIDE RECORDS SUMMARY | 2024-12-24 10:30 | XMS_ITS | Encounter Summary ---
Author Organization [employer] ([place], [place], [place], [place]) Address [address] [place] [address] Care Team Providers Care Academic Counselor Name Role Phone Unavailable Primary Care Provider Unavailabl e Encounter Details Date Type Department Care Team (Late st Contact Info) Description 12/23/2020 Transcribed Document [facility] [place] [address] [place] [address] ProviderJamie MD [address] [place] [address] Social History Tobacco Use Types [...] Source : Measured Height Entry Format : Show Low Height, Feet : 5 ft(Converted to: 152 cm, 60 Inch) Height, Inches : 9 Inch(Converted to: 0 ft 9 Inch, 22.86 cm) Clinical Height : 175.26 cm Weight Source : Standing scale Weight Entry Format : Show Low Clinical Dosing Weight : 96.36 kg Weight, Pounds : 212 lb Body Surface Area (BSA) : 2.12 m2 Body Mass Index : 31.4 kg/m2 (HI) [place] Body Weight : 70 kg Georgie Boyce [...] Georgie Boyce RN - 12/23/2020 6:56 EDT [place] Suicide Severity Rating Scale (C-SSRS) CSSRS Past [...] #2 Relationship : . Primary Language : Uzbek Preferred Communication Mode : Verbal Communication Barrier : None Winder Fixer Needed : No Georgie Boyce RN - [...]
--- OUTSIDE RECORDS SUMMARY | 2024-12-24 10:30 | XMS_ITS | Encounter Summary ---
Author Organization [employer] ([place], [place], [place], [place]) Address [address] [place] [address] Care Team Providers Care Curtain Feller Blindstitch Name Role Phone Unavailable Primary Care Provider Unavailabl e Encounter Details Date Type Department Care Team (Late st Contact Info) Description 12/23/2020 Transcribed Document [facility] [place] [facility] [place] [address] ProviderJaime MD [address] [place] [id number] Social History Tobacco Use Types Packs/Day Years [...] EDT Chloraseptic Menthol 1.4% topical spray: 5 Ozark, Oral, [place]ark, Q2H, PRN for Sore Throat, Routine, Start [...] Oral, Q4H phenol 1.4% throat spray 5 [place], Oral, Q2H promethazine 25 mg tab 12.5 [...] HTN, CAD and cancer Procedure history: Cholecystectomy (96839541). Hernia ([id number]). Rotator cuff right ([id number]). Knee left partial ([id number]). right upper thigh boil. lymph node drained from right arm pit. Colonoscopy ([id number]). EGD - Esophagogastroduodenoscopy ([id number]). heart cath. cardiac stent. Social History Patient [...] No deformity, Normal gait. Integumentary: Warm, [place], Intact, No pallor, No rash, WOUND STABLE. [...] then you may give Tylenol 650 mg PO/CA x 1. If no response in 2 [...] Hospitalist medicine consult addendum, internal medicine, Adi gAuilar MD -Seen and reexamined -Awake alert cooperative [...]
--- OUTSIDE RECORDS SUMMARY | 2024-12-24 10:30 | XMS_ITS | Encounter Summary ---
Author Organization [employer] ([place], [place], [place], [place]) Address [address] [place] [address] Care Team Providers Care Knuckle Bender Name Role Phone Unavailable Primary Care Provider Unavailabl e Encounter Details Date Type Department Care Team (Late st Contact Info) Description 12/23/2020 Transcribed Document [facility] [place] [address] ProviderJaime MD [address] [place] [address] Social History Tobacco Use Types Packs/Day [...] by Lakesha, [facility] Conversion Electronic Scale Tester Cerner at 07/09/2022 10:51 AM CDT documented in this encounter Plan of Treatment Not on file documented as of this encounter Visit Diagnoses Not on filedocumented in this encounter
--- OUTSIDE RECORDS SUMMARY | 2024-12-24 10:30 | XMS_ITS | Clinical Summary ---
Author Organization [facility] Address [address] [place] [address] Care Team Providers Care Interlocking And Signal Mechanic Name Role Phone Columba Rodríguez URSULA Primary Care Provider [phone] Shay Biggs MD Unavailable [phone] Allergies Active Allergy Reactions Criticality Noted Date [...] Type Department Care Team Description 11/04/2024 Telephone [facility] [address], [address] [place] [address] Baldemar Gibbs MD from Last [...] Wellness (AWV) 1950 UKY-/Child/Adol SDOH Screenings 1950 [id number] Vaccine (#1) 1957 Diabetes: Dental Exam 1962 [...] Recently Relevant to Health Maintenance Results * [place] Hepatitis C Antibody (02/13/2019 6:35 PM EST) [place] Hepatitis C Ab NEGATIVE Reference Range: Negative [facility] 02/13/2019 6:35 PM EST 02/13/2019 7:06 PM EST us Major Diaz MD LAB BLOOD ORDERABLES Final Re sult [facility] from Last 3 Months or Most Recently Relevant to Health Maintenance Insurance Care Teams Interlocking And Signal Mechanic Relationship Specialty Start Date End Date Columba Rodríguez APRN [address] [place] [address] PCP - General 11/04/24 Shay Biggs MD [address] [facility] [address] [place] [address] Referring Physician Cardiology 11/04/24
--- OUTSIDE RECORDS SUMMARY | 2024-12-24 10:30 | XMS_ITS ---
Laboratory report Created on: December 20, 2024 SOFIAAYLEEN : 1950 Sex: Male Author Name [employer]KE [employer] Al[employer]arq Unknown PROBLEMS Problems List Code Description M06.00 M15.0 Z51.81 R76.12 RESULTS Laboratory Orders Date Order Code Test 2024-12-13 [id number] SEDIMENTATION RA TE-WESTERGREN 2024-12-13 [id number] C-REACTIVE PROTE IN, QUANT 2024-12-13 [id number] COMP. METABOLIC PANEL (14) 2024-12-13 [id number] 9+OXYCODO NE+BUFFER COPPER-SCR 2024-12-13 776160 CBC WITH DIFFERE NTIAL/PLATELET Laboratory Results Date LOINC Test Value Unit Reference Range Interpre tation 2024-12-13 4537-7 SEDIMENTATION RATE-WESTERGREN 29 MM/HR 0-30 2024-12-13 1988-5 C-REACTIVE PROTE IN, QUANT 2 MG/L 0-10 2024-12-13 2345-7 GLUCOSE 154 MG/DL 70-99 H 2024-12-13 3094-0 BUN 20 MG/DL 8-27 2024-12-13 2160-0 CREATININE 1.4 MG/DL 0.76-1.27 H 2024-12-13 46657-6 EGFR 53 ML/MIN/1.7 3 >59 L 2024-12-13 3097-3 BUN/CREATININE RATIO 14 10-24 2024-12-13 2951-2 SODIUM 136 MMOL/L 431-600 9870-09-19 2823-3 POTASSIUM 4.7 MMOL/L 3.5-5.2 2024-12-13 2075-0 CHLORIDE 99 MMOL/L 96-106 2024-12-13 2028-9 CARBON DIOXIDE, TOTAL 19 MMOL/L 20-29 L 2024-12-13 67095-6 CALCIUM 9.1 MG/DL 8.6-10.2 2024-12-13 2885-2 PROTEIN, TOTAL 6.9 G/DL 6.0-8.5 2024-12-13 1751-7 ALBUMIN 4.3 G/DL 3.8-4.8 2024-12-13 85116-4 GLOBULIN, TOTAL 2.6 G/DL 1.5-4.5 2024-12-13 1975-2 BILIRUBIN, TOTAL .6 MG/DL 0.0-1.2 2024-12-13 6768-6 ALKALINE PHOSPHATASE 109 IU/L 47-123 2024-12-13 1920-8 AST (SGOT) 34 IU/L 0-40 2024-12-13 1742-6 ALT (SGPT) 30 IU/L 0-44 2024-12-13 8251-1 FPRCF 2024-12-13 84216-0 AMPHETAMINES SCR EEN, URINE N NG/ML 2024-12-13 81417-3 BARBITURATES SCR EEN, URINE N NG/ML 2024-12-13 93241-2 BENZODIAZEPINES SCREEN, URINE N NG/ML 2024-12-13 99517-3 CANNABINOID SCRE EN, URINE N NG/ML 2024-12-13 61381-1 COCAINE (METAB) SCREEN, URINE N NG/ML 2024-12-13 34430-7 OPIATE SCREEN, URINE N NG/ML 2024-12-13 01161-8 OXYCODONE/OXYMOR PHONE , URINE N NG/ML 2024-12-13 3936-2 PHENCYCLIDINE SC REEN, URINE N NG/ML 2024-12-13 45392-6 METHADONE SCREEN , URINE N NG/ML 2024-12-13 06789-1 PROPOXYPHENE SCR EEN, URINE N NG/ML 2024-12-13 2161-8 CREATININE, URINE 189.9 MG/DL 20.0-300.0 2024-12-13 2756-5 PH, URINE 5 4.5-8.9 2024-12-13 6690-2 WBC 7.6 X10E3/UL 3.4-10.8 2024-12-13 789-8 RBC 4.82 X10E6/UL 4.14-5.80 2024-12-13 718-7 HEMOGLOBIN 10.6 G/DL 13.0-17.7 L 2024-12-13 4544-3 HEMATOCRIT 36.5 % 37.5-51.0 L 2024-12-13 787-2 MCV 76 FL 79-97 L 2024-12-13 785-6 MCH 22 PG 26.6-33.0 L 2024-12-13 786-4 MCHC 29 G/DL 31.5-35.7 L 2024-12-13 788-0 RDW 15 % 11.6-15.4 2024-12-13 777-3 PLATELETS 341 X10E3/UL 138-930 7455-09-19 770-8 NEUTROPHILS 70 % 2024-12-13 736-9 LYMPHS 20 % 2024-12-13 5905-5 MONOCYTES 9 % 2024-12-13 713-8 EOS 1 % 2024-12-13 706-2 BASOS 0 % 2024-12-13 751-8 NEUTROPHILS (ABSOLUTE) 5.3 X10E3/UL 1.4-7.0 2024-12-13 731-0 LYMPHS (ABSOLUTE) 1.5 X10E3/UL 0.7-3.1 2024-12-13 742-7 MONOCYTES(ABSOLUTE) .7 X10E3/UL 0.1-0.9 2024-12-13 711-2 EOS (ABSOLUTE) .1 X10E3/UL 0.0-0.4 2024-12-13 704-7 BASO (ABSOLUTE) 0 X10E3/UL 0.0-0.2 2024-12-13 99906-4 IMMATURE GRANULOCYTES 0 % 2024-12-13 08459-7 IMMATURE GRANS (ABS) 0 X10E3/UL 0.0-0.1
--- OUTSIDE RECORDS SUMMARY | 2024-12-24 10:30 | XMS_ITS | Encounter Summary ---
Author Organization [employer] ([place], [place], [place], [place]) Address [address] [place] [address] Care Team Providers Care Manager Mobility Name Role Phone Unavailable Primary Care Provider Unavailabl e Encounter Details Date Type Department Care Team (Late st Contact Info) Description 12/23/2020 Transcribed Document [facility] [place] [address] [place] [address] ProviderJaime MD [address] [place], [place] [phone] Social History Tobacco Use Types Packs/Day Years [...] knee 12/23/2020 12:00 Atherosclerotic heart disease of [place] coronary artery without angina pectoris 12/23/2020 12:00 [...]
== END 2024-12-23 23:59 ==
LOC: LAB.DROPOF 12-24 10:24
PROVIDERS: PCP Urology; Visit Provider Urology
DX: N28.1 Cyst of kidney, acquired (principal); N40.1 Benign prostatic hyperplasia with lower urinary tract symptoms
CPT/HCPCS: 81001

== ENCOUNTER 2024-12-24 11:00 | Outpatient (RCR) | payer MEDICARE, SELFPAY ==
--- NOTE | 2024-12-10 11:47 | HMH.RHREAS ---
Rehab Reassessment Rehab OP Re-assessment Start: 12/10/24 11:39 Freq: Status: Active Protocol: Document 12/10/24 11:39 JAELYNKevVINEET (Rec: 12/10/24 11:47 PHORVINEET [id number]) E-signed By Scott Gallegos, PT Rehab Re-assessment Subjective Subjective Pt reports no c/o pain in b LE at this time. He does report he has to rotate days off with the compression on his R LE due to my toe gets infected if I use it every day. He continues to feel heaviness in B LE with all activity. Pt would likely benefit from a home lymphedema pump to help control his chronic edema. Pt has been present for his initial evaluation visit only prior to this date. Objective Objective Notes Circumferential Measurements: R LE total is 220.7 cm which is -8.3 cm since IE. L LE total is 197.1 cm which is -10.4 cm since IE. Edema: 2+ pitting edema overlying MILD fibrotic edema of the R LE. Erythema: MILD erythema to B lower legs. Assessment Progress Assessment Progressing as Expected Assessment Notes Pt has shown significant improvement in B LE edema based on circumferential measurements. He continues to have considerable edema in B LE with chronic R LE lymphedema. Skilled therapy remains indicated in order to reduce overall edema and aid pt improvement in QOL. Pt continues to have persistent lymphedema despite conservative treatment consisting of greater than 4 weeks of consistent elevation of B LE, compression garment wear throughout the day, and therapeutic exercise to improve fluid mobilization. Skin changes including increased redness and increased dryness of the skin remain evident. Lymphedema Patient Goals Lymphedema Short in 2 wks pt will: Term Patient Goals 1) Reduce pitting edema to 1+ in R LE 2) Reduce circumferential measurements to B LE by 10 cm ea Lymphedema Wallpaper Embosser Helper in 4 wks pt will: Patient Goals 1) Reduce pitting edema to 0 in R LE 2) Reduce circumferential measurements to B LE by 15 cm ea 3) Be independent with donning/doffing of compression garments 4) be independent with Lymphedema management via HEP Plan Plan Updated POC sent to provider for their continued input and approval. Continued pt treatment may include any or all of the following interventions in order to improve functional outcomes and aid pt improvement in QOL: Frequency of Therapy 2 x/wk Duration of Therapy 4 wks Therapeutic Exercise Yes Including Home Exercise Program Manual Therapy Yes Techniques Neuromuscular Re- Yes education Therapeutic Yes Activities to Return to Previous Functional/Work Level ADL/Self Care Yes Education Orthotics/Bracing/ Yes Splinting Manual Lymphatic Yes Drainage Eval/Re-Eval Yes Time and Billing Re-Eval Time 13 Re-Eval Billing 0 Units Charge for PT No reassessment? PHYSICIAN CERTIFICATION: I certify the specified therapy services for [place] [facility] are required, authorized, and reviewed every 30 days.
== END 2024-12-24 23:59 | disposition home or self-care (01) ==
LOC: PT 11:00
PROVIDERS: Visit Provider Family Medicine
DX: L03.119 Cellulitis of unspecified part of limb (principal)
CPT/HCPCS: 97140

== ENCOUNTER 2024-12-25 11:50 | Outpatient (CLI) | payer MEDICARE, SELFPAY ==
--- OUTSIDE RECORDS SUMMARY | 2024-12-13 11:15 | XMS_ITS | Encounter Summary ---
Author Organization [facility] Address [address] [place] [address] Care Team Providers Care Qa Test Analyst Name Role Phone Columba Rodríguez APRN Primary Care Provider [phone] Reason for Visit * Reason Comments Rheumatoid Arthritis Follow up Osteoarthritis Follow up Encounter Details Date Type Department Care Team (Latest Contact Info) Description 12/13/2024 11:15 AM EDT Office Visit [facility] RHEUMATOLOGY [address] [address] Cash Khanna DO [address] [address] Seronegative rheumatoid arthritis (Primary Dx); Primary osteoarthritis [...] sent through Care Everywhere. * Rheumatoid Arthritis (Cym[place]) documented in this encounter Progress Notes * [...] , Rfl: Cholecalciferol (Vitamin D3) 1.25 MG (37842 UT) tablet, Take 1 tablet by mouth [...] ointment, , Disp: , Rfl: nystatin (MYCOSTATIN) 436420 UNIT/GM cream, , Disp: , Rfl: omeprazole [...] 4 months (around 04/14/2025). Cash Khanna DO [facility]ology of [place] documented in this encounter Plan of Treatment Upcoming Encounters Date Type Department Care Team (Late st Contact Info) Description 06/16/2025 11:15 AM EDT Office Visit [facility] RHEUMATOLOGY [address] [address] Cash Khanna DO [address] [place] [address] Scheduled Orders Name Type Priority Associated Diagnoses Orde r Schedule CBC Auto Differential Lab Routine Seronegative rheumatoid arthritis Primary osteoarthritis involving multiple joints Encounter for medication monitoring Positive QuantiFERON-TB Gold test Ordered: 12/13/2024 documented as of this encounter Procedures Procedure [...] CBC & Differential (12/13/2024 12:39 PM EDT) WBC 7.6 3.4 - 10.8 x10E3/uL [facility] [...] 12:3 9 PM EDT 12/13/2024 Narrative [facility] (AMBULATORY) - 12/17/2024 8:08 AM EDT Performed at: [address] [place] [id number] Poultry Husbandry Worker: Matthew Clark PhD, Phone: [phone] Patient Fasting: N Cash Khanna DO LAB BLOOD ORDERABLES F inal Result [facility] (AMBUL[facility]ORY) [address] [place] [address], [facility] [address] [place] [address], * C-reactive Protein (12/13/2024 12:39 PM EDT) [facility] C-Reactive Protein 2 0 - 10 mg/L [facility] Blood 12/13/2024 12:3 9 PM EDT 12/13/2024 Narrative [facility] (AMBULATORY) - 12/17/2024 8:08 AM EDT Performed at: 02 - [facility] [address] [facility], [place], [place] [id number] Poultry Husbandry Worker: Matthew Clark PhD, Phone: [phone] Patient Fasting: N Cash Khanna DO LAB BLOOD ORDERABLES F inal Result [facility] [address] [place] [address], [facility] [address] [place] [address], * Urine Drug Screen - Urine, Clean Catch (12/13/2024 12:39 PM EDT) [facility] Amphetamine, Urine Qual Negative Cutoff=10 00 ng/mL [...] is inconsistent with an expected outcome. Email: [email or web address] Urine Urine specimen obtained by clean catch procedure / Unknown 12/13/2024 12:39 PM EDT 12/13/2024 Narrative [facility] - 12/17/2024 8:08 AM EDT Performed at: 01 - [facility] [address] [facility], [place], [place] [id number] Poultry Husbandry Worker: Kenroy Mills PhD, Phone: [phone] Patient Fasting: N [facility] DO URINE ORDERABLES Final Result Performing Organization Address City/[facility]/ZIP Co de Phone Number [facility] ([facility] [address] [place] [id number], [facility] [address] [place] [address], * Sedimentation Rate (12/13/2024 12:39 PM EDT) Pathologist [facility] Sed Rate 29 0 - 30 mm/hr [facility] Blood 12/13/2024 12:3 9 PM EDT 12/13/[address] [facility] (AMBULATORY) - 12/17/2024 8:08 AM EDT Performed at: 02 - [facility] [address] [place] [id number] Poultry Husbandry Worker: Matthew Clark PhD, Phone: [phone] Patient Fasting: N [facility] Bald[facility] LAB BLOOD ORDERABLES F inal Result Performing Organization Address City/[facility]/ZIP Co de Phone Number [facility] ([facility] [address] [place] [address], [facility] [address] [place] [address], * (ABNORMAL) Comprehensive Metabolic Panel (12/13/2024 12:39 [...] 12:3 9 PM EDT 12/13/[address] [facility] (AMBULATORY) - 12/17/2024 8:08 AM EDT Performed at: 02 - [address] [id number] Poultry Husbandry Worker: Matthew Clark PhD, Phone: [phone] Patient Fasting: N Cash Khanna DO LAB BLOOD ORDERABLES F inal Result [facility] (AMBULATORY) [address] [place] [address], [facility] [address] [place] [address], documented in this encounter Visit Diagnoses Diagnosis Seronegative rheumatoid arthritis- Primary Rheumatoid arthritis Primary osteoarthritis involving multiple joints Encounter for medication monitoring Encounter for therapeutic drug monitoring Positive QuantiFERON-TB Gold test documented in this encounter Care Teams Qa Test Analyst Relationship Specialty Start Date End Date Columba Rodríguez APRN [address] [place] [address] PCP - General Family Medicine 11/10/23 documented as of this encounter
[2024-12-25 16:20] LABS: Hematocrit 32.4 % (42.0-52.0); Hemoglobin 9.8 g/dL (14.1-18.0); Immature Granulocytes % 0.2 %; Mean Corpuscular HGB Conc 30.2 g/dL (31.8-35.4); Mean Corpuscular Hemoglobin 21.8 pg (27.0-31.2); Mean Corpuscular Volume 72.0 fl (80-94); Nucleated Red Blood Cells % 0 %; Platelet Count 294 K/mm3 (142-424); Red Blood Count 4.50 M/mm3 (4.60-6.20); Red Cell Distribution Width-SD 41.9 fL; White Blood Count 5.3 K/mm3 (4.8-10.8)
[2024-12-25 17:22] LABS: Total Iron Binding Capacity 435 ug/dL (261-462)
[2024-12-25 17:49] LABS: Ferritin 15.9 ng/ml (17.9-464)
[2024-12-25 18:57] LABS: Iron 53 ug/dL (49-181)
--- OUTSIDE RECORDS SUMMARY | 2024-12-26 10:42 | XMS_ITS | Clinical Summary ---
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 R76.12 (ICD-10-CM ) 09/18 Active 09/18 Imelda Bunny 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 gamma interferon antigen response without active tuberculosis Edema, limb 554527312 (SNOMED CT) 09/21 Resolved 09/21 Imelda Hollis Edema of extremity Right Leg Edema, limb 542966392 (SNOMED CT) 09/21 Removed 09/21 Jer Zhang [...] DAY 2 THROUGH DAY 5 12/19 azithromycin 10887563249 Cinda Rolando BENZONATATE 100 MG CAPS Take 1 capsule by mouth three times a day as needed 12/19 BENZONATATE Cinda Fu TRIAZOLAM 0.25 MG TABS Take 1 tablet by mouth 12/19 triazolam 84590315496 Cinda Fu LORAZEPAM 1 MG TABS Take 1 tablet 12/19 lorazepam 07998533096 Cinda Fu LEVOFLOXACIN 750 MG TABS Take 1 tablet by mouth once a day 12/19 levofloxacin 83708021459 Cinda Rolando LOSARTAN POTASSIUM 50 MG TABS one tab oral daily 12/19 losartan 39654701307 Cinda Rolando NYSTATIN 740240 UNIT/GM OINT Apply to skin once a day 12/19 nystatin 09716757781 Cinda Fu RIFAMPIN 300 MG CAPS Take 2 by mouth once a day 12/19 rifampin 88631721265 Cinda Rolando CYCLOBENZAPRINE HCL 5 MG TABS one tab oral daily 12/19 cyclobenzaprine 16106844359 Cinda Fu ISONIAZID 300 MG TABS Take 1 tablet by mouth once a day 12/19 isoniazid 72551708462 Cinda PROMETHAZINE-CODEI NE 6.25-10 MG/5ML SYRP Take 5 ml by mouth twice a day 12/19 promethazine-code ine 22340950289 Cinda Fu DICYCLOMINE HCL 10 MG CAPS 1 cap oral twice a day 12/19 dicyclomine 01978599919 Cinda Fu CLOPIDOGREL BISULFATE 75 MG TABS Take 1 tablet by mouth once a day 12/19 clopidogrel 70963617750 Cinda Marshall HYDROCOD POLST-CPM POLST ER 10-8 MG/5ML ORAL SUSPENSION EXTENDED RELEASE Take 1 teaspoon by mouth twice a day 12/19 HYDROCOD POLST-CPM POLST ER 10-8 MG/5ML ORAL SUSPENSION EXTENDED RELEASE Cinda Marshall PLAVIX 75 MG TABS once a day clopidogrel 6156195 7190 Cinda Marshall TRIAZOLAM 0.25 MG TABS Take 1 tablet by mouth 09/24 triazolam 46451465524 Melvin Hartman ISONIAZID 300 MG TABS Take 1 tablet by mouth once a day 12/19 isoniazid 14942965187 Melvin Hartman CLOPIDOGREL BISULFATE 75 MG TABS Take 1 tablet by mouth once a day 12/19 clopidogrel 93862969771 Melvin Hartman LORAZEPAM 1 MG TABS Take 1 tablet 12/19 lorazepam 54437139573 Melvin Hartman NYSTATIN 443953 UNIT/GM OINT Apply to skin once a day 12/19 nystatin 84836851187 Melvin Hartman HYDROCOD POLST-CPM POLST ER 10-8 MG/5ML ORAL SUSPENSION EXTENDED RELEASE Take 1 teaspoon by mouth twice a day 12/19 HYDROCOD POLST-CPM POLST ER 10-8 MG/5ML ORAL SUSPENSION EXTENDED RELEASE Melvin Hartman AZITHROMYCIN 250 MG TABS TAKE 2 TABLETS BY MOUTH ON DAY 1 AND THEN TAKE 1 TABLET BY MOUTH ONCE A DAY ON DAY 2 THROUGH DAY 5 09/24 azithromycin 75346626991 Melvin Hartman RIFAMPIN 300 MG CAPS Take 2 by mouth once a day 09/24 rifampin 11537751348 Melvin Hartmna PROMETHAZINE-CODEI NE 6.25-10 MG/5ML SYRP Take 5 ml by mouth twice a day 05/09 promethazine-code ine 72538783994 Melvin Hartman BENZONATATE 100 MG CAPS Take 1 capsule by mouth three times a day as needed 12/19 BENZONATATE Melvin Hartman LEVOFLOXACIN 750 MG TABS Take 1 tablet by mouth once a day 12/19 levofloxacin 45956605618 Melvin Hartman DICYCLOMINE HCL 10 MG CAPS 1 cap oral twice a day 09/24 dicyclomine 65457720515 Melvin Hartman SIMVASTATIN 20 MG TABS one tab oral daily simvastatin 23512403160 Melvin Hartman LOSARTAN POTASSIUM 50 MG TABS one tab oral daily 09/24 losartan 45961351823 Melvin Hartman CYCLOBENZAPRINE HCL 5 MG TABS one tab oral daily 09/24 cyclobenzaprine 15013495837 Melvin Hartman TRAMADOL HCL 50 MG TABS one tab every 6 hours prn tramadol 52142026523 Melvin Hartman METFORMIN HCL 500 MG TABS one tab oral twice a day metformin 23110154266 Melvin Hartman RIFAMPIN 300 MG CAPS take 2 po daily 09/24 RIFAMPIN 50764413975 Jer Zhang MD ISONIAZID 300 MG TABS Take 1 tablet by mouth daily 12/16 ISONIAZID 79629613819 Jer Zhang MD AZITHROMYCIN 250 MG TABS TAKE 2 TABLETS BY MOUTH ON DAY 1 AND THEN TAKE 1 TABLET BY MOUTH ONCE A DAY ON DAY 2 THROUGH DAY 5 09/24 AZITHROMYCIN 78593625572 Gerald Ocasio BENZONATATE 100 MG CAPS TAKE 1 CAPSULE BY MOUTH THREE TIMES DAILY FOR 10 DAYS NEEDED FOR COUGH 12/16 BENZONATATE 38215814664 Gerald Ocasio PROMETHAZINE-CODEI NE 6.25-10 MG/5ML SOLN TAKE 5 ML BY MOUTH TWICE DAILY 12/16 PROMETHAZINE-CODE INE 36278281584 Gerald Ocasio LEVOFLOXACIN 750 MG TABS TAKE 1 TABLET BY MOUTH ONCE DAILY FOR 8 DAYS 12/16 LEVOFLOXACIN 75272392047 Gerald Ocasio CLOPIDOGREL BISULFATE 75 MG TABS TAKE 1 TABLET BY MOUTH ONCE DAILY 12/16 CLOPIDOGREL BISULFATE 76200435220 Gerald D NYSTATIN 887792 UNIT/GM OINT APPLY OINTMENT TOPICALLY ONCE DAILY 12/16 NYSTATIN 11900868755 Gerald D HYDROCOD POLST-CPM POLST ER 10-8 MG/5ML ORAL SUSPENSION EXTENDED RELEASE TAKE 1 TEASPOONFUL (5 ML) BY MOUTH TWICE DAILY MAY CAUSE DROWSINESS 12/16 HYDROCOD POLST-CHLORPHEN POLST 84027994309 Gerald D TRIAZOLAM 0.25 MG TABS TAKE 1 TABLET BY MOUTH 30 MINUTES PRIOR TO MRI ON 09/24 TRIAZOLAM 38140706828 Gerald D LORAZEPAM 1 MG TABS TAKE 1 TABLET 2 HOURS BEFORE MRI FOR ANXIETY 12/16 LORAZEPAM 97340469471 Gerald D Medications Administered No information available. 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
--- OUTSIDE RECORDS SUMMARY | 2024-12-26 10:43 | XMS_ITS | Encounter Summary ---
Author Organization [facility] Address [address] [place] [id number] Care Team Providers Care Acoustical Material Worker Name Role Phone Columba Rodríguez APRN Primary Care Provider [phone] Reason for Visit * Reason Comments Med Refill Encounter Details Date Type Department Care Team (Late Contact Info) Description 09/01/[address] [facility] PULMONARY [facility] CRITICAL CARE MEDICINE [address] [place] [address] Isai Tran MD [address] [place] [address] Social History Tobacco Use Types Packs/Day Years [...] Description 06/16/2025 11:15 AM EDT Office Visit [facility] RHEUMATOLOGY [address] [place] [address] Cash Khanna DO [address] [facility] [address] [place], [place] [id number] documented as of this encounter Visit Diagnoses Not on filedocumented in this encounter Care Teams Acoustical Material Worker Relationship Specialty Start Date End Date Columba Rodríguez APRN [address] [place] [phone] PCP - General Family Medicine 11/10/23 documented as of this encounter
--- OUTSIDE RECORDS SUMMARY | 2024-12-26 10:43 | XMS_ITS | Clinical Summary ---
Author Organization [facility] Address [address] [place] [address] Care Team Providers Care Commercial Agent Name Role Phone Columba Rodríguez APRN Primary Care Provider [phone] Allergies Active Allergy Reactions Criticality Noted Date Comments Penicillins Unknown - Low Severi ty,Itching,Unknown (See Comments) Medium 08/08/2017 Medications Plavix 75 MG tablet PLAVIX 75 MG TABS Active vitamin B-12 (cyanocobalami n) 100 MCG tablet Take 1 tablet by mouth Daily. Active losartan (COZAAR) 50 MG tablet 11/30/19 23 Active mupirocin (BACTROBAN) 2 % ointment 12/06/19 23 Active nystatin (MYCOSTATIN) 986170 UNIT/GM cream 11/19/19 23 Active pioglitazone (ACTOS) [...] Active Cholecalcifero l (Vitamin D3) 1.25 MG (21338 UT) tablet Take 1 tablet by mouth [...] Department Care Team Description 12/17/2024 Results Follow-Up [facility] RHEUMATOLOGY [address] [place] [phone] Cash Khanna DO 12/13/2024 11:15 AM EDT Office Visit [facility] RHEUM[facility]Y [address] [place] [phone] Cash Khanna DO Seronegative rheumatoid arthritis (Primary Dx); Primary osteoarthritis involving multiple joints; Encounter for medication monitoring; Positive QuantiFERON-TB Gold test 12/13/2024 Travel 10/18/[address] [facility] RHEUM[facility]OLOGY [address] [place] [phone] Adrianne Hdez APRN from Last 3 Months [...] [facility] R[facility] [address] [phone] Cash Khanna DO [address] [address] Health Maintenance Due Date Last Done Comments [...] is inconsistent with an expected outcome. Email: [email or web address] Urine Urine specimen obtained by clean catch procedure / Unknown 12/13/2024 12:39 PM EDT 12/13/2024 Narrative [facility] - 12/17/2024 8:08 AM EDT Performed at: 01 - [address] [id number] [employer] Truck Driver: Kenroy Mills PhD, Phone: [phone] Patient Fasting: N Cash Khanna DO URINE ORDERABLES Final Result [facility] (AMBULATORY) [address] [place] [address], [facility] [address] [place] [address], * Sedimentation Rate (12/13/2024 12:39 PM EDT) [facility] Sed Rate 29 0 - 30 mm/hr [facility] Blood 12/13/2024 12:3 9 PM EDT 12/13/2024 Narrative [facility] (AMBULATORY) - 12/17/2024 8:08 AM EDT Performed at: 02 - [facility] [address] [place], [place] [id number] [employer] Truck Driver: Matthew Clark PhD, Phone: [phone] Patient Fasting: N Cash Khanna LAB BLOOD ORDERABLES F inal Result [facility] ([facility]UL[facility]) [address] [place] [address], [facility] [address] [place] [address], * (ABNORMAL) CBC & Differential (12/13/2024 12:39 [...] 12:3 9 PM EDT 12/13/2024 Narrative [facility] (AMBULATORY) - 12/17/2024 8:08 AM EDT Performed at: [address] [id number] [employer] Truck Driver: Matthew Clark PhD, Phone: [phone] Patient Fasting: N [facility] [place] [place] [facility] BLOOD ORDERABLES F inal Result Performing Organization Address City/[facility]/ZIP Co de Phone Number [facility] ([facility] [address] [place] [id number], [facility] [address] [place] [address], [place] [phone] * C-reactive Protein (12/13/2024 12:39 PM EDT) [facility] C-Reactive Protein 2 0 - 10 mg/L [facility] Blood 12/13/2024 12:3 9 PM EDT 12/13/2024 [facility] (AMBULATORY) - 12/17/2024 8:08 AM EDT Performed at: [address] [id number] [employer] Truck Driver: Matthew Clark PhD, Phone: [phone] Patient Fasting: N Cash [employer] LAB BLOOD ORDERABLES F inal Result Performing Organization Address City/[facility]/ZIP Co de Phone Number [facility] [address] [place] [address], [facility] [address] [place] [address], * (ABNORMAL) Comprehensive Metabolic Panel (12/13/2024 12:39 [...] 12/13/2024 12:3 9 PM EDT 12/13/2024 Narrative [facility] ([facility] - 12/17/2024 8:08 AM EDT Performed at: 02 - [address] [id number] [employer] Truck Driver: Matthew Clark PhD, Phone: [phone] Patient Fasting: N us Cash Khanna DO LAB BLOOD ORDERABLES F inal Result [facility] [address] [place] [address], [place] [phone] [facility] [address] [place] [address], from Last 3 Months Insurance [facility] [employer] PPO Care Teams Commercial Agent Relationship Specialty Start Date End Date Columba Rodríguez APRN [address] [place] [address] [place] [address] PCP - General Family Medicine 11/10/23
--- OUTSIDE RECORDS SUMMARY | 2024-12-26 10:43 | XMS_ITS | Encounter Summary ---
[facility] Address [address] [place] [address] Care Team Providers Care Dynamics Ax Technical Architect Name Role Phone Columba Rodríguez APRN Primary Care Provider [phone] Encounter Details Date Type Department Care Team (Late Contact Info) Description 12/17/2024 Results Follow-Up [facility] RHEUMATOLOGY [address] [address] Cash Khanna DO [address] [phone] Social History Tobacco Use Types Packs/Day Years [...] Description 06/16/2025 11:15 AM EDT Office Visit [facility] RHEUMATOLOGY [address] [address] Cash Khanna DO [address] [phone] documented as of this encounter Visit Diagnoses Not on filedocumented in this encounter Care Teams Dynamics Ax Technical Architect Relationship Specialty Start Date End Date Columba Rodríguez APRN [address] [place] [address] PCP - General Family Medicine 11/10/23 documented as of this encounter
--- OUTSIDE RECORDS SUMMARY | 2024-12-26 10:43 | XMS_ITS | Encounter Summary ---
[facility] Address [address] [place] [address] Care Team Providers Care Associate Professor Of Engineering Name Role Phone Columba Rodríguez APRN Primary Care Provider [phone] Encounter Details Date Type Department Care Team [...] 11:15 AM EDT Office Visit [facility] RHEUMATOLOGY [address] [phone] Cash Khanna DO [address] [address] documented as of this encounter Visit Diagnoses Not on filedocumented in this encounter Care Teams Associate Professor Of Engineering Relationship Specialty Start Date End Date Columba Rodríguez APRN [address] [place] [address] PCP - General Family Medicine 11/10/23 documented as of this encounter
--- OUTSIDE RECORDS SUMMARY | 2024-12-26 10:43 | XMS_ITS | Clinical Summary ---
Author Organization [facility] Address [address] [place] [address] Care Team Providers Care Occupancy Specialist Name Role Phone Columba Rodríguez URSULA Primary Care Provider [phone] Shay Biggs MD Unavailable [phone] Allergies Active Allergy Reactions Criticality Noted Date [...] Type Department Care Team Description 11/04/2024 Telephone [facility] [address], [address] [place] [address] Baldemar Gibbs MD from Last [...] Wellness (AWV) 1950 UKY-Infant/Child/Adol SDOH Screenings 1950 [id number] Vaccine (#1) 1957 Diabetes: Dental Exam 1962 [...] Recently Relevant to Health Maintenance Results * [place] Hepatitis C Antibody (02/13/2019 6:35 PM EST) [place] Hepatitis C Ab NEGATIVE Reference Range: Negative [facility] 02/13/2019 6:35 PM EST 02/13/2019 7:06 PM EST us Major Diaz MD LAB BLOOD ORDERABLES Final Re sult [facility] from Last 3 Months or Most Recently Relevant to Health Maintenance Insurance Care Teams Occupancy Specialist Relationship Specialty Start Date End Date Columba Rodríguez APRN [address] [place] [address] PCP - General 11/04/24 Shay Biggs MD [address] [facility] [address] [place] [address] Referring Physician Cardiology 11/04/24
--- OUTSIDE RECORDS SUMMARY | 2024-12-26 10:43 | XMS_ITS | Encounter Summary ---
Author Organization [facility] Address [address] [place] [address] Care Team Providers Care Bilingual Legal Assistant Name Role Phone Columba Rodríguez APRN Primary Care Provider [phone] Shay Biggs MD Unavailable [phone] Encounter Details Date Type Department Care Team (Late st Contact Info) Description 11/04/2024 Telephone [facility] [address], [address] [place] [address] Baldemar Gibbs MD [address] [place] [address] Social History Tobacco Use Types [...] on filedocumented in this encounter Care Teams Bilingual Legal Assistant Relationship Specialty Start Date End Date Columba Rodríguez APRN [address] [place] [address] [place] [phone] PCP - General 11/04/24 Shay Biggs MD [address] [place] [address] Referring Physician Cardiology 11/04/24 documented as of this encounter
== END 2024-12-25 23:59 ==
LOC: LAB.DROPOF 12-26 10:35
PROVIDERS: PCP Family Medicine; Visit Provider Family Medicine
DX: D50.9 Iron deficiency anemia, unspecified (principal); E11.9 Type 2 diabetes mellitus without complications
CPT/HCPCS: 82728; 83540; 83550; 85025

== ENCOUNTER 2024-12-27 11:41 | Outpatient (RCR) | payer MEDICARE, SELFPAY | END 2024-12-31 16:00 | disposition home or self-care (01) | LOC: PT 11:41 | PROVIDERS: PCP Urology; Visit Provider Family Medicine | DX: L03.119 Cellulitis of unspecified part of limb (principal) | CPT/HCPCS: 97140 ==

== ENCOUNTER 2025-01-02 14:00 | Outpatient (CLI) | payer MEDICARE, SELFPAY ==
[2025-01-02 14:47] LABS: Hematocrit 33.4 % (42.0-52.0); Hemoglobin 10.1 g/dL (14.1-18.0); Immature Granulocytes % 0.4 %; Mean Corpuscular HGB Conc 30.2 g/dL (31.8-35.4); Mean Corpuscular Hemoglobin 21.9 pg (27.0-31.2); Mean Corpuscular Volume 72.3 fl (80-94); Nucleated Red Blood Cells % 0 %; Platelet Count 274 K/mm3 (142-424); Red Blood Count 4.62 M/mm3 (4.60-6.20); Red Cell Distribution Width-SD 44.4 fL; White Blood Count 5.4 K/mm3 (4.8-10.8)
[2025-01-02 17:58] LABS: Alanine Aminotransferase 30 U/L (12-78); Albumin Level 3.8 g/dl (3.5-5.0); Alkaline Phosphatase 98 U/L (38-126); Anion Gap 17.8 mEq/L (5-15); Aspartate Amino Transferase 32 U/L (17-59); Bilirubin,Direct 0.4 mg/dl (0.0-0.4); Bilirubin,Indirect 0.7 mg/dL (0.0-0.9); Bilirubin,Total 1.1 mg/dl (0.2-1.3); Bilirubin,Unconjugated 0.7 mg/dL (0.0-1.1); Blood Urea Nitrogen 22 mg/dl (9-20); Calcium 8.5 mg/dl (8.4-10.2); Carbon Dioxide 21 mmol/L (22.0-30.0); Chloride 101 mmol/L (98-107); Cholesterol 98 mg/dl (140-200); Creatinine,Serum 2.00 mg/dl (0.66-1.25); Estimated Glomerular Filt Rate 33 ml/min (>60); GFR (African American) 40 ML/MIN (>60); Glucose 216 mg/dl (74-100); HDL Cholesterol 47 mg/dl (40-60); Magnesium 1.4 mg/dl (1.6-2.3); Potassium 4.8 mmoL/L (3.5-5.1); Sodium 135 mmol/L (136-145); Total Protein,Serum 6.3 g/dl (6.3-8.2); Triglycerides 132 mg/dl (30-150)
[2025-01-02 18:15] LABS: Free T4 (Free Thyroxine) 1.15 ng/dl (0.78-2.19)
[2025-01-02 18:29] LABS: Thyroid Stimulating Hormone 1.60 uIU/mL (0.465-4.68)
== END 2025-01-02 23:59 | disposition home or self-care (01) ==
LOC: LAB 14:04
PROVIDERS: PCP Family Medicine; Visit Provider Internal Medicine
DX: I25.10 Atherosclerotic heart disease of native coronary artery without angina pectoris (principal); E78.5 Hyperlipidemia, unspecified
CPT/HCPCS: 36415; 80048; 80061; 80076; 83735; 84439; 84443; 85025

== ENCOUNTER 2025-01-14 14:00 | Outpatient (RCR) | payer MEDICARE, SELFPAY ==
--- NOTE | 2025-01-14 15:12 | HMH.RHREAS ---
Rehab Reassessment Rehab OP Re-assessment Start: 01/03/25 09:43 Freq: Status: Active Protocol: Document 01/14/25 14:45 PHORVINEET (Rec: 01/14/25 15:12 PHORNE [id number]) E-signed By Scott Gallegos, PT Rehab Re-assessment Subjective Subjective Pt reports he feels a little bit better, but continues to have increased difficulty with edema throughout his R LE. He reports inconsistent use of his compression due to difficulty donning it independently . My can help me sometimes, but I can't really do it by myself. He reports continued neuropathic pain in B lower legs and feet and difficulty with donning socks or shoes due to his edema. Objective Objective Notes Circumferential Measurements: R LE total is 224.0 cm which is -5.0 cm since IE. L LE total is 197.8 cm which is -9.8 cm since IE. Edema: 2+ pitting edema overlying MILD fibrotic edema of the R LE. Erythema: MILD erythema to B lower legs. Assessment Progress Assessment Slower Than Expected Assessment Notes Pt has been present for 7 visits since his last reassessment was performed. He has shown a slight increase in overall edema based on circumferential measurements since his last reassessment, but continues to be overall decreased since his initial evaluation. He continues to exhibit significantly more edema in the R LE despite increased elevation of that leg. Skilled therapy remains indicated in order to reduce LE edema and aid pt improvement in QOL. Pt continues to have persistent lymphedema despite conservative treatment consisting of greater than 4 weeks of consistent elevation of B LE, compression garment wear throughout the day, and therapeutic exercise to improve fluid mobilization. Skin changes including increased redness and increased dryness of the skin remain evident. Lymphedema Patient Goals Lymphedema Short in 2 wks pt will: (These goals remain active) Term Patient Goals 1) Reduce pitting edema to 1+ in R LE 2) Reduce circumferential measurements to B LE by 10 cm ea Lymphedema Care Home in 4 wks pt will: (These goals remain active) Patient Goals 1) Reduce pitting edema to 0 in R LE 2) Reduce circumferential measurements to B LE by 15 cm ea 3) Be independent with donning/doffing of compression garments 4) be independent with Lymphedema management via HEP Plan Plan Updated POC sent to provider for their continued input and approval. Pt would likely benefit from home lymphedema pump to manage his symptoms from chronic lymphedema. Continued pt treatment may include any or all of the following interventions in order to improve functional outcomes and aid pt improvement in QOL: Frequency of Therapy 2 x/wk Duration of Therapy 4 wks Therapeutic Exercise Yes Including Home Exercise Program Manual Therapy Yes Techniques Neuromuscular Re- Yes education Therapeutic Yes Activities to Return to Previous Functional/Work Level ADL/Self Care Yes Education Orthotics/Bracing/ Yes Splinting Vasopneumatic Yes Compression Pump Manual Lymphatic Yes Drainage Eval/Re-Eval Yes Time and Billing Re-Eval Time 16 Re-Eval Billing 0 Units Charge for PT No reassessment? PHYSICIAN CERTIFICATION: I certify the specified therapy services for [place] III are required, authorized, and reviewed every 30 days.
== END 2025-01-14 23:59 | disposition home or self-care (01) ==
LOC: PT 14:00
PROVIDERS: PCP Family Medicine; Visit Provider Family Medicine
DX: L03.119 Cellulitis of unspecified part of limb (principal)
CPT/HCPCS: 97140

== ENCOUNTER 2025-01-16 14:22 | Outpatient (CLI) | payer MEDICARE, SELFPAY ==
--- OUTSIDE RECORDS SUMMARY | 2024-12-13 11:15 | XMS_ITS | Encounter Summary ---
[facility] Organization [facility] Address [address] [place] [address] Care Team Providers Care Delivery Director Name Role Phone Columba Rodríguez APRN Primary Care Provider [phone] Reason for Visit * Reason Comments Rheumatoid Arthritis Follow up Osteoarthritis Follow up Encounter Details Date Type Department Care Team (Latest Contact Info) Description 12/13/2024 11:15 AM EDT Office Visit [facility]HE[facility] [address] [address] Cash Khanna DO [address] [address] Seronegative rheumatoid arthritis (Primary Dx); Primary osteoarthritis [...] sent through Care Everywhere. * Rheumatoid Arthritis (French) documented in this encounter Progress Notes * [...] , Rfl: Cholecalciferol (Vitamin D3) 1.25 MG (10137 UT) tablet, Take 1 tablet by mouth [...] ointment, , Disp: , Rfl: nystatin (MYCOSTATIN) 220764 UNIT/GM cream, , Disp: , Rfl: omeprazole [...] 4 months (around 04/14/2025). Cash Khanna DO [facility] of [place] documented in this encounter Plan of Treatment Upcoming Encounters Date Type Department Care Team (Late st Contact Info) Description 06/16/2025 11:15 AM EDT Office Visit [facility] [address] [address] Cash Khanna DO [address] [place] [address] documented as of this encounter Procedures Procedure [...] & Differential (12/13/2024 12:39 PM EDT) Pathologist [facility] WBC 7.6 3.4 - 10.8 x10E3/uL [facility] [...] 12:3 9 PM EDT 12/13/2024 Narrative [facility] (AMBULATORY) - 12/17/2024 8:08 AM EDT Performed at: [address] [id number] Apprentice Painter Hand: Matthew Clark PhD, Phone: [phone] Patient Fasting: N Cash Khanna DO LAB BLOOD ORDERABLES F inal Result [facility] (AMBULATORY) [address] [place] [address], [facility] [address] [place] [address], * C-reactive Protein (12/13/2024 12:39 PM EDT) [facility] C-Reactive Protein 2 0 - 10 mg/L [facility] Blood 12/13/2024 12:3 9 PM EDT 12/13/2024 Narrative [facility] (AMBULATORY) - 12/17/2024 8:08 AM EDT Performed at: - [address] [id number] Apprentice Painter Hand: Matthew Clark PhD, Phone: [phone] Patient Fasting: N aCsh Khanna DO LAB BLOOD ORDERABLES F inal Result [facility] (AMBULATORY) [address] [place] [address], [place] [phone] [facility] [address] [place] [address], [place] [phone] * Urine Drug Screen - Urine, Clean Catch (12/13/2024 12:39 PM EDT) Pathologist [facility] Amphetamine, Urine Qual Negative Cutoff=10 00 ng/mL [...] is inconsistent with an expected outcome. Email: [email or web address] Urine Urine specimen obtained by clean catch procedure / Unknown 12/13/2024 12:39 PM EDT 12/13/2024 Narrative [facility] (AMBULATORY) - 12/17/2024 8:08 AM EDT Performed at: 01 - [facility] [address] [place], [place] [id number] Apprentice Painter Hand: Kenroy Mills PhD, Phone: [phone] Patient Fasting: N [facility] DO URINE ORDERABLES Final Result Performing Organization Address [facility] Co de Phone Number [facility] (AMBULATORY) [address] [place] [address], [facility] [address] [place] [address], * Sedimentation Rate (12/13/2024 12:39 PM EDT) Pathologist [facility] Sed Rate 29 0 - 30 mm/hr [facility] Blood 12/13/2024 12:3 9 PM EDT 12/13/2024 Narrative [facility] (AMBULATORY) - 12/17/2024 8:08 AM EDT Performed at: 02 - [facility] [address] [place], [place] [id number] Apprentice Painter Hand: Matthew Clark PhD, Phone: [phone] Patient Fasting: N [facility] Baldemar Khanna LAB BLOOD ORDERABLES F inal Result Performing Organization Address [facility] Co de Phone Number [facility] [address] [place] [address], [facility] [address] [place] [address], [place] [phone] * (ABNORMAL) Comprehensive Metabolic Panel (12/13/2024 12:39 [...] 8:08 AM EDT Performed at: 02 - [address] [id number] Apprentice Painter Hand: Matthew Clark PhD, Phone: [phone] Patient Fasting: N Cash Khanna DO LAB BLOOD ORDERABLES F inal Result [facility] (AMBULATORY) [address] [place] [address], [facility] [address] [place] [address], documented in this encounter Visit Diagnoses Diagnosis Seronegative rheumatoid arthritis- Primary Rheumatoid arthritis Primary osteoarthritis involving multiple joints Encounter for medication monitoring Encounter for therapeutic drug monitoring Positive QuantiFERON-TB Gold test documented in this encounter Care Teams Delivery Director Relationship Specialty Start Date End Date Columba Rodríguez APRN [address] [place] [address] PCP - General Family Medicine 11/10/23 documented as of this encounter
--- OUTSIDE RECORDS SUMMARY | 2025-01-16 14:59 | XMS_ITS | Clinical Summary ---
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 R76.12 (ICD-10-CM ) 09/18 Active 09/18 Imelda Bunny 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 gamma interferon antigen response without active tuberculosis Edema, limb 255412720 (SNOMED CT) 09/21 Resolved 09/21 Imelda Hollis Edema of extremity Right Leg Edema, limb 510770051 (SNOMED CT) 09/21 Removed 09/21 Jer Zhang [...] DAY 2 THROUGH DAY 5 12/19 azithromycin 68932565919 Cinda Rolando BENZONATATE 100 MG CAPS Take 1 capsule by mouth three times a day as needed 12/19 BENZONATATE Cinda Fu TRIAZOLAM 0.25 MG TABS Take 1 tablet by mouth 12/19 triazolam 77425472263 Cinda Fu LORAZEPAM 1 MG TABS Take 1 tablet 12/19 lorazepam 17966932633 Cinda Fu LEVOFLOXACIN 750 MG TABS Take 1 tablet by mouth once a day 12/19 levofloxacin 52109119553 Cinda Rolando LOSARTAN POTASSIUM 50 MG TABS one tab oral daily 12/19 losartan 16479897270 Cinda Rolando NYSTATIN 353947 UNIT/GM OINT Apply to skin once a day 12/19 nystatin 74017291885 Cinda Fu RIFAMPIN 300 MG CAPS Take 2 by mouth once a day 12/19 rifampin 35574019539 Cinda Rolando CYCLOBENZAPRINE HCL 5 MG TABS one tab oral daily 12/19 cyclobenzaprine 66254361449 Cinda Fu ISONIAZID 300 MG TABS Take 1 tablet by mouth once a day 12/19 isoniazid 67857319260 Cinda PROMETHAZINE-CODEI NE 6.25-10 MG/5ML SYRP Take 5 ml by mouth twice a day 12/19 promethazine-code ine 44630640091 Cinda Fu DICYCLOMINE HCL 10 MG CAPS 1 cap oral twice a day 12/19 dicyclomine 87453791109 Cinda Fu CLOPIDOGREL BISULFATE 75 MG TABS Take 1 tablet by mouth once a day 12/19 clopidogrel 00425009002 Cinda Marshall HYDROCOD POLST-CPM POLST ER 10-8 MG/5ML ORAL SUSPENSION EXTENDED RELEASE Take 1 teaspoon by mouth twice a day 12/19 HYDROCOD POLST-CPM POLST ER 10-8 MG/5ML ORAL SUSPENSION EXTENDED RELEASE Cinda Marshall PLAVIX 75 MG TABS once a day clopidogrel 3168325 7190 Cinda Marshall TRIAZOLAM 0.25 MG TABS Take 1 tablet by mouth 09/24 triazolam 99936341959 Melvin Hartman ISONIAZID 300 MG TABS Take 1 tablet by mouth once a day 12/19 isoniazid 53901382200 Melvin Hartman CLOPIDOGREL BISULFATE 75 MG TABS Take 1 tablet by mouth once a day 12/19 clopidogrel 74996532094 Melvin Hartman LORAZEPAM 1 MG TABS Take 1 tablet 12/19 lorazepam 17577595995 Melvin Hartman NYSTATIN 993329 UNIT/GM OINT Apply to skin once a day 12/19 nystatin 33584811997 Melvin Hartman HYDROCOD POLST-CPM POLST ER 10-8 MG/5ML ORAL SUSPENSION EXTENDED RELEASE Take 1 teaspoon by mouth twice a day 12/19 HYDROCOD POLST-CPM POLST ER 10-8 MG/5ML ORAL SUSPENSION EXTENDED RELEASE Melvin Hartman AZITHROMYCIN 250 MG TABS TAKE 2 TABLETS BY MOUTH ON DAY 1 AND THEN TAKE 1 TABLET BY MOUTH ONCE A DAY ON DAY 2 THROUGH DAY 5 09/24 azithromycin 41765923650 Melvin Hartman RIFAMPIN 300 MG CAPS Take 2 by mouth once a day 09/24 rifampin 08905016169 Melvin Hartman PROMETHAZINE-CODEI NE 6.25-10 MG/5ML SYRP Take 5 ml by mouth twice a day 05/09 promethazine-code ine 78527467472 Melvin Hartman BENZONATATE 100 MG CAPS Take 1 capsule by mouth three times a day as needed 12/19 BENZONATATE Melvin Hartman LEVOFLOXACIN 750 MG TABS Take 1 tablet by mouth once a day 12/19 levofloxacin 46222325451 Melvin Hartman DICYCLOMINE HCL 10 MG CAPS 1 cap oral twice a day 09/24 dicyclomine 53270115393 Melvin Hartman SIMVASTATIN 20 MG TABS one tab oral daily simvastatin 52574590023 Melvin Hartman LOSARTAN POTASSIUM 50 MG TABS one tab oral daily 09/24 losartan 66069691261 Melvin Hartman CYCLOBENZAPRINE HCL 5 MG TABS one tab oral daily 09/24 cyclobenzaprine 98819717736 Melvin Hartman TRAMADOL HCL 50 MG TABS one tab every 6 hours prn tramadol 54559881367 Melvin Hartman METFORMIN HCL 500 MG TABS one tab oral twice a day metformin 07547346169 Melvin Hartman RIFAMPIN 300 MG CAPS take 2 po daily 09/24 RIFAMPIN 92382827679 Jer Zhang MD ISONIAZID 300 MG TABS Take 1 tablet by mouth daily 12/16 ISONIAZID 71356152614 Jer Zhang MD AZITHROMYCIN 250 MG TABS TAKE 2 TABLETS BY MOUTH ON DAY 1 AND THEN TAKE 1 TABLET BY MOUTH ONCE A DAY ON DAY 2 THROUGH DAY 5 09/24 AZITHROMYCIN 71399818333 Gerald Ocasio BENZONATATE 100 MG CAPS TAKE 1 CAPSULE BY MOUTH THREE TIMES DAILY FOR 10 DAYS NEEDED FOR COUGH 12/16 BENZONATATE 41020730353 Gerald Ocasio PROMETHAZINE-CODEI NE 6.25-10 MG/5ML SOLN TAKE 5 ML BY MOUTH TWICE DAILY 12/16 PROMETHAZINE-CODE INE 61840955144 Gerald Ocasio LEVOFLOXACIN 750 MG TABS TAKE 1 TABLET BY MOUTH ONCE DAILY FOR 8 DAYS 12/16 LEVOFLOXACIN 20408150129 Gerald Ocasio CLOPIDOGREL BISULFATE 75 MG TABS TAKE 1 TABLET BY MOUTH ONCE DAILY 12/16 CLOPIDOGREL BISULFATE 07134465288 Gerald D NYSTATIN 498214 UNIT/GM OINT APPLY OINTMENT TOPICALLY ONCE DAILY 12/16 NYSTATIN 60525344336 Gerald D HYDROCOD POLST-CPM POLST ER 10-8 MG/5ML ORAL SUSPENSION EXTENDED RELEASE TAKE 1 TEASPOONFUL (5 ML) BY MOUTH TWICE DAILY MAY CAUSE DROWSINESS 12/16 HYDROCOD POLST-CHLORPHEN POLST 58160751401 Gerald D TRIAZOLAM 0.25 MG TABS TAKE 1 TABLET BY MOUTH 30 MINUTES PRIOR TO MRI ON 09/24 TRIAZOLAM 69004258437 Gerald D LORAZEPAM 1 MG TABS TAKE 1 TABLET 2 HOURS BEFORE MRI FOR ANXIETY 12/16 LORAZEPAM 99050162850 Gerald D Medications Administered No information available. 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
--- OUTSIDE RECORDS SUMMARY | 2025-01-16 15:00 | XMS_ITS | Encounter Summary ---
Author Organization [employer] ([place], [place], [place], [place]) Address [address] [place] [address] Care Team Providers Care Post Hole Digger Name Role Phone Unavailable Primary Care Provider Unavailabl e Encounter Details Date Type Department Care Team (Late st Contact Info) Description 12/09/2020 Transcribed Document [facility] [place] [address] [place] [address] ProviderJaime MD [address] [place], [place] [address] Social History Tobacco Use Types Packs/Day Years [...]
--- OUTSIDE RECORDS SUMMARY | 2025-01-16 15:00 | XMS_ITS | Encounter Summary ---
[facility] Organization [facility] Address [address] [place] [address] Care Team Providers Care First Line Production Supervisor Name Role Phone Columba Rodríguez APRN Primary Care Provider [phone] Encounter Details Date Type Department Care Team (Late Contact Info) Description 12/17/2024 Results Follow-Up [facility] [address] [address] Cash Khanna DO [address] [phone] Social History Tobacco Use Types Packs/Day Years [...] Description 06/16/2025 11:15 AM EDT Office Visit [facility] [address] [address] Cash Khanna DO [address] [phone] documented as of this encounter Visit Diagnoses Not on filedocumented in this encounter Care Teams First Line Production Supervisor Relationship Specialty Start Date End Date Columba Rodríguez APRN [address] [place] [address] PCP - General Family Medicine 11/10/23 documented as of this encounter
--- OUTSIDE RECORDS SUMMARY | 2025-01-16 15:00 | XMS_ITS | Encounter Summary ---
Author Organization [employer] ([place], [place], [place], [place]) Address [address] [place] [address] Care Team Providers Care Pipe Organ Technician Name Role Phone Unavailable Primary Care Provider Unavailabl e Encounter Details Date Type Department Care Team (Late st Contact Info) Description 12/08/[address] [facility] [place] Family Medicine [address] [place] [address] ProviderJaime MD [address] [place], [place] [address] Social History Tobacco Use Types Packs/Day Years [...] Health Plan: [employer] MEDICARE REPL Policy Number: [id number] Authorization Number: Insurance Primary Name : [employer] MEDICARE REPL Policy Number: [id number] Authorization Status-Primary : Opo status approv Authorized Service Begin Date-Primary : 12/16/2020 EDT Observation Authorization Nbr-Primary : [id number] Authorization Comments-Primary : [employer] Medicare approved for outpt per availity Historical Authorization Comments-Primary : No Authorization Comments Found ROLANDO TABARES RN-Utilization Review - 12/08/2020 15:21 EDT Electronically signed by [facility] Conversion Wire Mill Rover Cerner at 07/09/2022 10:42 AM CDT documented in this encounter Plan of Treatment Not on file documented as of this encounter Visit Diagnoses Not on filedocumented in this encounter
--- OUTSIDE RECORDS SUMMARY | 2025-01-16 15:00 | XMS_ITS | Encounter Summary ---
Author Organization [employer] ([place], [place], [place], [place]) Address [address] [place] [address] Care Team Providers Care Bolt Labeler Name Role Phone Unavailable Primary Care Provider Unavailabl e Encounter Details Date Type Department Care Team (Late st Contact Info) Description 12/22/2020 Transcribed Document [facility] [place] [facility] [place] [address] ProviderJaime MD [address] [place], [place] [id number] Social History Tobacco Use Types Packs/Day Years [...] in the [facility] CUBE. Continue to use Incentive Spirometer 10 [...] Barley. Bulgur wheat. Millet. Bran muffins. Popcorn. [place] wafer crackers. Vegetables Sweet potatoes. Spinach. Kale. Artichokes. Cabbage. Broccoli. Green peas. Carrots. Squash. Fruits Berries. Pears. Apples. Oranges. Avocados. Prunes and raisins. Dried figs. Meats and Other Protein Sources Ivalee, kidney, amador, and soy beans. Split peas. [...] 1 katy has 11 g of protein. Nicholas seeds ??? 1 oz has 5.5 g [...] the floor. Place frequently used items in wcba-gd-jzznn places Keep electrical cables out of the [...] ? Using the bathroom. ? Using household agricultural service worker or toxic chemicals. ? Touching or [...] activities are safe for you. ??? Take selu-phj-bnbdgol and prescription medicines only as told by [...] provider. Document Revised: 03/16/2018 Document Reviewed: 10/27/2017 [employer] Patient Education ? 2020 [employer] documented in this encounter Plan of Treatment Not on file documented as of this encounter Visit Diagnoses Not on filedocumented in this encounter
--- OUTSIDE RECORDS SUMMARY | 2025-01-16 15:00 | XMS_ITS | Encounter Summary ---
[facility] Address [address] [place] [address] Care Team Providers Care Sourcing Intern Name Role Phone Columba Rodríguez APRN Primary Care Provider [phone] Encounter Details Date Type Department Care Team [...] Description 06/16/2025 11:15 AM EDT Office Visit [facility] [address] [phone] Cash Khanna DO [address] [address] documented as of this encounter Visit Diagnoses Not on filedocumented in this encounter Care Teams Sourcing Intern Relationship Specialty Start Date End Date Columba Rodríguez APRN [address] [place] [address] PCP - General Family Medicine 11/10/23 documented as of this encounter
--- OUTSIDE RECORDS SUMMARY | 2025-01-16 15:00 | XMS_ITS | Encounter Summary ---
Author Organization [employer] ([place], [place], [place], [place]) Address [address] [place] [address] Care Team Providers Care Director Of Materials Name Role Phone Unavailable Primary Care Provider Unavailabl e Encounter Details Date Type Department Care Team (Late st Contact Info) Description 12/16/2020 Transcribed Document [facility] [place] [address] [place] [address] ProviderJaime MD [address] [place], [place] [id number] Social History Tobacco Use Types Packs/Day Years [...] Source : Stated Height Entry Format : [place] Height, Feet : 5 ft(Converted to: 152 cm, 60 Inch) Height, Inches : 9 Inch(Converted to: 0 ft 9 Inch, 22.86 cm) Clinical Height : 175.26 cm Weight Source : Standing scale Weight Entry Format : [place] Clinical Dosing Weight : 96.93 kg Weight, Pounds : 213 lb Weight, Ounces : 4 oz Body Surface Area (BSA) : 2.12 m2 Body Mass Index : 31.6 kg/m2 (HI) [place] Body Weight : 70 kg CIARA WOODS [...] CIARA WOODS RN - 12/16/2020 6:51 EDT [place] Suicide Severity Rating Scale (C-SSRS) CSSRS Past [...] Obtained From : Patient Primary Language : Namibian Preferred Communication Mode : Verbal Communication Barrier : None Cooler Tender Needed : No CIARA WOODS RN - [...] form. Electronically signed by Interface, Adolph Conversion Operating Systems Specialist Cerner at 07/09/2022 10:37 AM CDT documented in this encounter Plan of Treatment Not on file documented as of this encounter Visit Diagnoses Not on filedocumented in this encounter
--- OUTSIDE RECORDS SUMMARY | 2025-01-16 15:00 | XMS_ITS | Clinical Summary ---
Author Organization [facility] Address [address] [place] [address] Care Team Providers Care Associate Professor Of Biology Name Role Phone Columba Rodríguez APRN Primary Care Provider [phone] Allergies Active Allergy Reactions Criticality Noted Date Comments Penicillins Unknown - Low Severi ty,Itching,Unknown (See Comments) Medium 08/08/2017 Medications Plavix 75 MG tablet PLAVIX 75 MG TABS Active vitamin B-12 (cyanocobalamin ) 100 MCG tablet Take 1 tablet by mouth Daily. Active losartan (COZAAR) 50 MG tablet 3 Active mupirocin (BACTROBAN) 2 % ointment 3 Active nystatin (MYCOSTATIN) 339255 UNIT/GM cream 3 Active pioglitazone (ACTOS) 30 [...] Daily. Active Cholecalciferol (Vitamin D3) 1.25 MG (67078 UT) tablet Take 1 tablet by mouth Daily. Active isoniazid (NYDRAZID) 300 MG tablet Take 1 tablet by mouth Daily. 4 Active Pharmacist Choice Lancets misc 31 g. 4 Active atorvastatin (LIPITOR) 40 MG tablet Take 1 tablet by mouth every night at bedtime. 5 Active ondansetron (ZOFRAN) 4 MG tablet Take 1 tablet by mouth Every 8 (Eight) Hours As Needed for Nausea. 4 Active Blood Glucose Monitoring Suppl (ONE TOUCH ULTRA 2) w/Device kit 5 Active colestipol (COLESTID) 1 g tablet Take 1 tablet by mouth Daily. 5 Active famotidine (PEPCID) 40 MG tablet Take 1 tablet by mouth Daily. 5 Active OneTouch Ultra Test test strip 5 Active omeprazole (priLOSEC) 40 MG capsule Take 1 capsule by mouth Daily. 5 Active Xarelto 15 MG tablet Take 1 tablet by mouth Daily. 5 Active lidocaine (XYLOCAINE) 5 % ointment Apply 1 Application topically to the appropriate area as directed. 5 Active metFORMIN (GLUCOPHAGE) 1000 MG tablet Take 1 tablet by mouth 2 (Two) Times a Day With Meals. 5 Active metoprolol succinate XL (TOPROL-XL) 50 MG 24 hr tablet Take 1 tablet by mouth Daily. 5 Active Mounjaro 2.5 MG/0.5ML solution auto-injector Inject under the skin into the appropriate area as directed 1 (One) Time Per Week. 5 Active traMADol (ULTRAM) 50 MG tabletIndicatio ns:Encounter for medication monitoring TAKE 1 TO 2 TABLETS BY MOUTH EVERY 8 HOURS NEEDED 180 tablet 4 5 Active cyclobenzaprine (FLEXERIL) 5 MG tablet Take 2 tablets by mouth 3 (Three) Times a Day As Needed for Muscle Spasms. 270 tablet 1 5 Active Active Problems Problem Noted Date [...] Department Care Team Description 12/17/2024 Results Follow-Up [facility] RHEUM[facility]OLOGY [address] [phone] Cash Khanna DO 12/13/2024 11:15 AM EDT Office Visit [facility] RHEUMAT[facility]Y [address] [phone] Cash Khanna DO Seronegative rheumatoid arthritis (Primary Dx); Primary osteoarthritis involving multiple joints; Encounter for medication monitoring; Positive QuantiFERON-TB Gold test 12/13/2024 Travel 10/18/2024 Refill [facility] RHEUM[facility] [address] [phone] Adrianne Hdez APRN from Last [...] Description 06/16/2025 11:15 AM EDT Office Visit [facility] RHEUM[facility] 330 [facility] [address] [place] [address] Cash Khanna DO 330 [facility] [address] [place], [place] [id number] Health Maintenance Due Date Last Done Comments LIPID PANEL 1952 COVID-19 Vaccine (#1) 1957 DIABETIC EYE EXAM 1962 DIABETIC FOOT EXAM [...] 10/25/2024 01/31/2024, , 01/09/2020, Additional history exists Pneumococcal Vaccine 50+ Completed 2 022, 01/31/2019, 01/11/2018, Additional history exists Procedures [...] is inconsistent with an expected outcome. Email: [email or web address] Urine Urine specimen obtained by clean catch procedure / Unknown 12/13/2024 12:39 PM EDT 12/13/2024 Narrative [facility] (AMBULATORY) - 12/17/2024 8:08 AM EDT Performed at: 01 - [facility] [address] [place], [place] [id number] Boiler Operator Helper: Kenroy Mills PhD, Phone: [phone] Patient Fasting: N [facility] DO URINE ORDERABLES Final Result Performing Organization Address [facility] Co de Phone Number [facility] [address] [place] [address], [facility] [address] [place] [address], * Sedimentation Rate (12/13/2024 12:39 PM EDT) Pathologist [facility] Sed Rate 29 0 - 30 mm/hr [facility] Blood 12/13/2024 12:3 9 PM EDT 12/13/2024 Narrative [facility] (AMBULATORY) - 12/17/2024 8:08 AM EDT Performed at: 02 - [facility] [address] [place], [place] [id number] Boiler Operator Helper: Matthew Clark PhD, Phone: [phone] Patient Fasting: N [facility] BLOOD ORDERABLES F inal Result Performing Organization Address [facility] Co de Phone Number [facility] [address] [place] [address], [place] [phone] [facility] [address] [place] [address], * (ABNORMAL) CBC & Differential (12/13/2024 12:39 [...] 8:08 AM EDT Performed at: 02 - [facility] [address] [id number] Boiler Operator Helper: Matthew Clark PhD, Phone: [phone] Patient Fasting: N us Cash Khanna DO LAB BLOOD ORDERABLES F inal Result [facility] (AMBULATORY) [address] [place] [address], [facility] [address] [place] [address], * C-reactive Protein (12/13/2024 12:39 PM EDT) C-Reactive Protein 2 0 - 10 mg/L [facility] Blood 12/13/2024 12:3 9 PM EDT 12/13/2024 Narrative [facility] - 12/17/2024 8:08 AM EDT Performed at: 02 - [address] [id number] Boiler Operator Helper: Matthew Clark PhD, Phone: [phone] Patient Fasting: N us Cash Khanna DO LAB BLOOD ORDERABLES F inal Result [facility] [address] [place] [address], [facility] [address] [place] [address], * (ABNORMAL) Comprehensive Metabolic Panel (12/13/2024 12:39 [...] 8:08 AM EDT Performed at: 02 - [facility] [address] [place], [place] [id number] Boiler Operator Helper: Matthew Clark PhD, Phone: [phone] Patient Fasting: N Cash Khanna DO LAB BLOOD ORDERABLES F inal Result [facility] (AMBULATORY) [address] [place] [address], [place] [phone] [facility] [address] [place] [address], [place] [phone] from Last 3 Months Insurance [facility] Medicare [employer] PPO Care Teams Associate Professor Of Biology Relationship Specialty Start Date End Date Columba Rodríguez APRN [address] [place] [address] DENISA HERNANDEZ [address] PCP - General Family Medicine 11/10/23
--- OUTSIDE RECORDS SUMMARY | 2025-01-16 15:00 | XMS_ITS | Referral Summary ---
Author Organization [employer] ([place], [place], [place], [place]) Address [address] [place], [place] [address] Care Team Providers Care Lobby Porter Name Role Phone Unavailable Primary Care Provider [...] Date Milton rded Speak language other than Icelandic at home Not on file 01/23/2024 Want [...] Plan of Treatment Not on file Insurance [facility] MEDICARE ADVANTAGE
--- OUTSIDE RECORDS SUMMARY | 2025-01-16 15:00 | XMS_ITS | Encounter Summary ---
Author Organization [employer] ([place], [place], [place], [place]) Address [address] [place] [address] Care Team Providers Care Pipe Joints Supervisor Name Role Phone Unavailable Primary Care Provider Unavailabl e Encounter Details Date Type Department Care Team (Late st Contact Info) Description 12/09/2020 Transcribed Document [facility] [place] Medicine [facility] [place] [address] ProviderJaime MD [address] [place] [id number] Social History Tobacco Use Types Packs/Day Years [...] Appearance CLEAR2 12/09/2020 16:01 EDT Urine Specific Seney *1.026 12/09/2020 16:01 EDT Urine pH Dipstick [...] 12 Cr- 0.80 GFR- 116 Albumin- 4.1 Electronically signed by Adolph Crowder Conversion Curator [employer] Cerner at 07/09/2022 10:50 AM CDT documented in this encounter Plan of Treatment Not on file documented as of this encounter Visit Diagnoses Not on filedocumented in this encounter
--- OUTSIDE RECORDS SUMMARY | 2025-01-16 15:00 | XMS_ITS | Encounter Summary ---
Author Organization [employer] ([place], [place], [place], [place]) Address [address] [place] [address] Care Team Providers Care Assemblies And Installations Inspector Name Role Phone Unavailable Primary Care Provider Unavailabl e Encounter Details Date Type Department Care Team (Late st Contact Info) Description 12/09/2020 Transcribed Document [facility] [place] [address] [place] [address] ProviderJaime MD [address] [place], [place] [id number] Social History Tobacco Use Types Packs/Day Years [...] : Standing scale Weight Entry Format : [place] Clinical Dosing Weight : 95.91 kg Weight, Pounds : 211 lb Body Surface Area (BSA) : 2.12 m2 Body Mass Index : 31.2 kg/m2 (HI) [place] Body Weight : 70 kg Michaela Alvarez Rn - 12/09/2020 16:02 EDT Height Source : Stated Height Entry Format : [place] Michaela Alvarez Rn - 12/09/2020 15:57 EDT [...] Michaela Alvarez Rn - 12/09/2020 16:02 EDT [place] Suicide Severity Rating Scale (C-SSRS) CSSRS Past [...] Obtained From : Patient Primary Language : [place] Sudanese Preferred Communication Mode : Verbal Communication Barrier : None Special Equipment Technician Needed : No Michaela Alvarez Rn - [...]
--- OUTSIDE RECORDS SUMMARY | 2025-01-16 15:00 | XMS_ITS | Encounter Summary ---
Author Organization [employer] ([place], [place], [place], [place]) Address [address] [place] [address] Care Team Providers Care Transcript Clerk Name Role Phone Unavailable Primary Care Provider Unavailabl e Encounter Details Date Type Department Care Team (Late st Contact Info) Description 12/16/2020 Transcribed Document [facility] [place] [facility] [address] ProviderJaime MD [address] [place], [place] [address] Social History Tobacco Use Types Packs/Day Years [...]
--- OUTSIDE RECORDS SUMMARY | 2025-01-16 15:00 | XMS_ITS | Clinical Summary ---
Author Organization [facility] Address [address] [place] [address] Phone Care Team Providers Care Marine Electronics Repairer Name Role Phone Raj VERGARA Anthonyrosagerald Primary Care Provider [phone] Minnie VILLALOBOS, Danish Maurer [phone] Reason for Referral Date Encounter Description Provider Reason for Referral 03/29/21 Post Op Baldemar Mota PA-C Referral To Physician - see pcp for bp Reason for Visit and Chief Complaint The Chief Complaint is: rt knee pain Problems Includes: Problems addressed during this encounter and other active Problems All Visits Onset Date Resolved Date Provider Condition S tatus Joint Pain Right Knee 10/06/2020 Dainsh Ocasio Active Last Documented On 1 3:35PM ; [facility] Joint Pain Shoulder Left 10/08/2018 Ravi Kruse MD Active Last Documented On 9 8:56AM ; [facility] Plan of Treatment Patient was seen [...] - Last Documented On 03/30/2021 1:27PM ; [facility] Pending Tests Order Diagnosis Results Due Ordering P rovider Therapy - Physical Therapy Knee 03/29/21 Baldemar Mota PA-C Last Documented On 2 10:22AM ; [facility] Assessments Includes: Assessments from this encounter Findings Right total knee replacement December 23, 2020 - Last Documented On 03/30/2021 1:27PM ; [facility] Right manipulation under anesthesia March 15, 2021 - Last Documented On 03/30/2021 1:27PM ; [facility] Medical Equipment - Implanted Devices Includes: Current Devices No Medical Equipment Recorded Medications Includes: Medications discussed during this encounter and other current Medications Discontinued / Stopped on this date Danish Hartman MD on 03/12/2021 Zofran 4 MG Oral Tablet Provider: Deanne Hartman MD Diagnosis: Last Documented On 10:05AM By Nataliia Lockwood ; [facility] Mupirocin 2% External Ointment Provider: Danish Hartman MD Diagnosis: Last Documented On 2 10:05AM By Nataliia Lockwood ; [facility] Current Medications (continue as prescribed) Plavix 75 MG Oral Tablet 03/29/2021 Provider: Diagnosis: Last Documented On 2 10:05AM By Nataliia Lockwood ; [facility] Actos 15 MG Oral Tablet 01/12/2021 Provider: Diagnosis: Last Documented On 1 1:52PM By Aileen Perez ; [facility] Past Medications on file oxyCODONE HCl 5 MG Oral Tablet 03/12/2021 - 03/16/2021 Provider: Danish Hartman MD Diagnosis: 1 tablet by mouth every 4 hours for post op pain Last Documented On 1 11:56AM By Danish Hartman ; [facility] Ultram 50 MG Oral Tablet 03/12/2021 - 03/22/2021 Provi cleo: Danish Hartman MD Diagnosis: 1-2 tablets by mouth every 4-6hrs for post op pa in Last Documented On 12:11PM By Danish Hartman ; [facility] oxyCODONE HCl 5 MG Oral Tablet 01/14/2021 - 01/19/2021 Provider: Danish Hartman MD Diagnosis: take 1-2 tablets every 4-6hrs for post op pain Last Documented On 1 4:49PM By Danish Hartman ; [facility] oxyCODONE HCl 5 MG Oral Tablet 01/12/2021 - 01/17/2021 Provider: Danish Hartman MD Diagnosis: take 1-2 tablets every 4-6hrs for post op pain Last Documented On 1 10:46AM By Danish Hartman ; [facility] Losartan Potassium 50 MG Oral Tablet 01/12/2021 - 03/27 Provider: Diagnosis: Last Documented On 1 1:51PM By Aileen Dubois [facility] Mobic 15 MG Oral Tablet 12/22/2020 - 01/21/2021 Provid er: Danish Hartman MD Diagnosis: 1 every bedtime Last Documented On 1 3:29PM By Danish Dubois [facility] Acetaminophen 500 MG Oral Tablet 12/22/2020 - 01/22/20 Provider: Danish Hartman MD Diagnosis: take 2 tablets 3 times daily, AFTER SURGERY Last Documented On 1 3:28PM By Danish Dubois [facility] Colace 100 MG Oral Capsule 12/22/2020 - 01/21/2021 Pro vider: Danish Hartman MD Diagnosis: 1-2 tablets daily, as needed, AFTER SURGERY Last Documented On 1 3:28PM By Danish Hartman ; [facility] Doxycycline Hyclate 100 MG O ral Capsule 12/22/2020 - 12/25/2020 Provider: Danish Hartman MD Diagnosis: twice a day Last Documented On 1 3:27PM By Danish Dubois [facility] Aspirin Adult Low Strength 8 1 MG Oral Tablet Delayed Release 12/22/2020 - 02/05/2021 Provider: Danish Hartman MD Diagnosis: twice a day Last Documented On 1 3:26PM By Danish Dubois [facility] Zofran 4 MG Oral Tablet 12/22/2020 - 01/21/2021 Provid er: Danish Hartman MD Diagnosis: 1 po q 6 to 8 hrs prn pain t alex 1 tablet every 6-8hrs for nausea, AFTER SURGERY Last Documented On 1 3:26PM By Danish Hartman ; [facility] Ultram 50 MG Oral Tablet 12/22/2020 - 01/01/2021 Provi cleo: Danish Hartman MD Diagnosis: 1-2 p o q 6-8h take 1-2 tabl ets every 6-8 hours for breakthrough post op pain Last Documented On 1 3:35PM By Danish Hartman ; [facility] oxyCODONE HCl 5 MG Oral Tablet 12/22/2020 - 12/27/2020 Provider: Danish Hartman MD Diagnosis: take 1-2 tablets every 4-6hrs for post op pain Last Documented On 1 3:35PM By Danish Hartman ; [facility] oxyCODONE HCl 5 MG Oral Tablet 12/15/2020 - 12/19/2020 Provider: Danish Hartman MD Diagnosis: 1-2 po q 4-6h take 1-2 table ts every 4-6hrs for post op pain Last Documented On 1 4:37PM By Danish Hartman ; [facility] Cefadroxil 500 MG Oral Capsule 12/15/2020 - 12/18/2020 Provider: Danish Hartman MD Diagnosis: twice a day Last Documented On 1 4:26PM By Danish Hartman ; [facility] Medications Administered Includes: Administered Medications from this encounter No Administered Medications Recorded Vital Signs Includes: Vital Signs from this encounter Vital Name 03/29/2021 10:05A Blood Pressure Sitting (mmHg) 142/83 Pulse Rate-Sitting (bpm) 100 Height (in) 69 Note: [facility] Last Documented: On 03/29/2021 10:05A M ; [facility] Results Includes: Results discussed during this [...] 03/29/2021 Last Documented On 2 1:27PM ; [facility] Caffeine use 01/12/2021 Last Documented On 2 9:48AM ; [facility] No recent change in diet 01/12/2021 Last Documented On 2 9:48AM ; [facility] Not a current smoker. 01/12/2021 Last Documented On 2 9:48AM ; [facility] Not exercising regularly 01/12/2021 Last Documented On 2 9:48AM ; [facility] Not using drugs 01/12/2021 Last Documented On 2 9:48AM ; [facility] Non-smoker 10/06/2020 Last Documented On 2 9:48AM ; [facility] No tobacco use 10/08/2018 Last Documented On 2 9:48AM ; [facility] Smoking status : Never smoker 10/08/2018 Last Documented On 2 9:48AM ; [facility] Procedures and Surgical History Includes: Procedures from this encounter Procedures Code Diagnosis Performing Provider Service L ocation Service Date use of tobacco assessment performed 1000F Last Documented On 2 9:48AM ; [facility] referral to physician see pcp for bp Last Documented On 2 9:48AM ; [facility] Pt received screening for fall risk G8270 Last Documented On 2 9:48AM ; [facility] an X-ray was performed 69190 Last Documented On 2 9:48AM ; [facility] an MRI was performed [id number] Last Documented On 2 9:48AM ; [facility] History of EKG Last Documented On 2 9:48AM ; [facility] History of Blood Tests Last Documented On 2 9:48AM ; [facility] Medical History Includes: Medical History addressed during this encounter Description Last Updated Anemia 01/12/2021 Last Documented On 2 9:48AM ; [facility] Arthritis 01/12/2021 Last Documented On 2 9:48AM ; [facility] History of diabetes mellitus 01/12/2021 Last Documented On 2 9:48AM ; [facility] History of diverticulitis of colon 01/12 Last Documented On 2 9:48AM ; [facility] History of Gallbladder 01/12/2021 Last Documented On 2 9:48AM ; [facility] History of heart disease 01/12/2021 Last Documented On 2 9:48AM ; [facility] History of Rheumatology 01/12/2021 Last Documented On 2 9:48AM ; [facility] Hypertension 01/12/2021 Last Documented On 2 9:48AM ; [facility] Past Surgical History: RTC RT ~PKR LT ~H ernia 01/12/2021 Last Documented On 2 9:48AM ; [facility] Sleep Apnea 01/12/2021 Last Documented On 2 9:48AM ; [facility] Total knee arthroplasty 01/12/2021 Last Documented On 2 9:48AM ; [facility] Recent immunization for flu 2020 021 Last Documented On 2 9:48AM ; [facility] Recent immunization for pneumococcal pne umonia 201901/12/2021 Last Documented On 2 9:48AM ; [facility] Family History Includes: Family History addressed during this encounter Description Last Updated Diabetes mellitus 01/12/2021 Last Documented On 2 9:48AM ; [facility] Family history of cancer 01/12/2021 Last Documented On 2 9:48AM ; [facility] Family history of heart disease 01/13/20 21 Last Documented On 2 9:48AM ; [facility] Family history of hypertension 1 Last Documented On 2 9:48AM ; [facility] Family history of osteoporosis 1 Last Documented On 2 9:48AM ; [facility] Review of Systems Includes: Review [...] Active Last Documented On 2 1:07PM ; [facility] Encounters Encounter Provider Location Date Check-In Time Check- Out Time Diagnosis Post Op Baldemar Mota PA-C [facility] 2 9:47AM 10:21AM Insurance Includes: Active Insurance Policies Plan Name Member ID Group # Subscriber Relationship Effect jim Dates 1 - [facility] [id number] [place] Self Clinical Notes Includes: Clinical Notes from this encounter No Clinical Notes Recorded
--- OUTSIDE RECORDS SUMMARY | 2025-01-16 15:01 | XMS_ITS | Encounter Summary ---
Author Organization [employer] ([place], [place], [place], [place]) Address [address] [place] [address] Care Team Providers Care Boiler Plant Operator Name Role Phone Unavailable Primary Care Provider Unavailabl e Encounter Details Date Type Department Care Team (Late st Contact Info) Description 12/23/2020 Transcribed Document [facility] [place] [address] [place] [address] ProviderJaime MD [address] [place] [id number] Social History Tobacco Use Types Packs/Day Years [...] : Yes Discharge To Care Management : Home/Residential/Jail or Self Care -01 ANGELA NGUYEN RN [...]
--- OUTSIDE RECORDS SUMMARY | 2025-01-16 15:01 | XMS_ITS | Encounter Summary ---
Author Organization [employer] ([place], [place], [place], [place]) Address [address] [place] [address] Care Team Providers Care Machine Filler Shredder Name Role Phone Unavailable Primary Care Provider Unavailabl e Encounter Details Date Type Department Care Team (Late st Contact Info) Description 12/23/2020 Transcribed Document [facility] [place] [address] [place] [address] ProviderJaime MD [address] [place], [place] [id number] Social History Tobacco Use Types Packs/Day Years [...] III /Sex: 1950 Male Med Rec #: [id number] Physician: KAYLA ZIMMERMAN JR, JR, MD-ORT Financial #: [id number] Pt. Type: O Room/Bed: Admit/Disch: 12/23/20 04:16:00 - [place] [facility] [place] PreOp Case Times Entry 1 In Preop 12/23/20 05:15:00 Ready for Holding n/a Room Patient Ready for 12/23/20 06:42:00 Surgery Patient Out of Preop 12/23/20 07:50:00 Patient Out of n/a Holding Room Last Modified By: Aden Boyce RN 12/23/20 07:46:17 [facility] PreOp Case Times Audit 12/23/20 07:46:17 Interpretive Naturalist: [email or web address] Modifier: [email or web address] <+> 1 Patient Out of Preop Finalized By: Aden Boyce, RN Document Signatures Signed By: Aden Boyce RN 12/23/20 07:46 documented in this encounter Plan of Treatment Not on file documented as of this encounter Visit Diagnoses Not on filedocumented in this encounter
--- OUTSIDE RECORDS SUMMARY | 2025-01-16 15:01 | XMS_ITS | Encounter Summary ---
Author Organization [employer] ([place], [place], [place], [place]) Address [address] [place] [address] Care Team Providers Care Garment Liner Name Role Phone Unavailable Primary Care Provider Unavailabl e Encounter Details Date Type Department Care Team (Late st Contact Info) Description 12/23/2020 Transcribed Document [facility] [place] [facility] [place] [address] ProviderJaime MD [facility] [place], [place] [id number] Social History Tobacco Use Types Packs/Day Years [...] knee 12/23/2020 12:00 Atherosclerotic heart disease of [place] coronary artery without angina pectoris 12/23/2020 12:00 [...] 1 PT Eval Low Complexity : 1 ULSYSES SYED, PT - 12/23/2020 14:03 EDT Electronically signed by Adolph Crowder Conversion Java Developer With [employer] at 07/09/2022 10:42 AM CDT documented in this encounter Plan of Treatment Not on file documented as of this encounter Visit Diagnoses Not on filedocumented in this encounter
--- OUTSIDE RECORDS SUMMARY | 2025-01-16 15:01 | XMS_ITS | Encounter Summary ---
Author Organization [employer] ([place], [place], [place], [place]) Address [address] [place] [address] Care Team Providers Care Canteen Manager Name Role Phone Unavailable Primary Care Provider Unavailabl e Encounter Details Date Type Department Care Team (Late st Contact Info) Description 12/23/2020 Transcribed Document [facility] [place] [address] [place] [address] ProviderJaime MD [address] [place], [place] [phone] Social History Tobacco Use Types Packs/Day Years [...]
--- OUTSIDE RECORDS SUMMARY | 2025-01-16 15:01 | XMS_ITS | Encounter Summary ---
Author Organization [employer] ([place], [place], [place], [place]) Address [address] [place] [address] Care Team Providers Care Corporate Bond Trader Name Role Phone Unavailable Primary Care Provider Unavailabl e Encounter Details Date Type Department Care Team (Late st Contact Info) Description 12/24/2020 Transcribed Document [facility] [place] [facility] [place] [address] ProviderJaime MD [address] [place] [id number] Social History Tobacco Use Types Packs/Day Years [...] right total knee replacement, final condition improved. /[id number] MD RAO Gibbs Jr/DIANNA / RAO / MODL /[id number] documented in this encounter Plan of Treatment Not on file documented as of this encounter Visit Diagnoses Not on filedocumented in this encounter
--- OUTSIDE RECORDS SUMMARY | 2025-01-16 15:01 | XMS_ITS | Clinical Summary ---
Author Organization [employer] ([place], [place], [place], [place]) Address [address] [place], [place] [id number] Care Team Providers Care Marketing Intelligence Analyst Name Role Phone Unavailable Primary [...] Date Milton rded Speak language other than [place] at home Not on file 01/23/2024 Want [...] Treatment Not on file Insurance [facility] MEDICARE ADVANTAGE
--- OUTSIDE RECORDS SUMMARY | 2025-01-16 15:01 | XMS_ITS | Clinical Summary ---
Author Organization [facility] Address [address] [place] [address] Phone Care Team Providers Care Citizenship Teacher Name Role Phone Jonah Anthony APRN Primary Care Provider [phone] Minnie VILLALOBOS, Danish Maurer [phone] Reason for Visit and Chief Complaint The Chief Complaint is: RT TKA Problems Includes: Problems addressed during this encounter and other active Problems All Visits Onset Date Resolved Date Provider Condition S tatus Joint Pain Right Knee 10/06/2020 Danish Ocasio Active Last Documented On 1 3:35PM ; [facility] Joint Pain Shoulder Left 10/08/2018 Ravi Kruse MD Active Last Documented On 9 8:56AM ; [facility] Plan of Treatment Patient was seen by [...] - Last Documented On 06/29/2021 1:27PM ; [facility] Instructions to patient Lose weight Last Documented On 2 1:01PM ; [facility] Assessments Includes: Assessments from this encounter Findings Right total knee replacement November 2020 with vapor ablation in February 2021 - Last Documented On 06/29/2021 1:27PM ; [facility] Instructions Includes: Instructions from this encounter Instructions to patient Lose weight Last Documented On 2 1:01PM ; [facility] Medical Equipment - Implanted Devices Includes: Current Devices No Medical Equipment Recorded Medications Includes: Medications discussed during this encounter and other current Medications Current Medications (continue as prescribed) Plavix 75 MG Oral Tablet 03/29/2021 Provider: Diagnosis: Last Documented On 2 10:05AM By Nataliia Lockwood ; [facility] Actos 15 MG Oral Tablet 01/12/2021 Provider: Diagnosis: Last Documented On 1 1:52PM By Aileen Perez ; [facility] Past Medications on file oxyCODONE HCl 5 MG Oral Tablet 03/12/2021 - 03/16/2021 Provider: Danish Hartman MD Diagnosis: 1 tablet by mouth every 4 hours for post op pain Last Documented On 1 11:56AM By Danish Hartman ; [facility] Ultram 50 MG Oral Tablet 03/12/2021 - 03/22/2021 Provi cleo: Danish Hartman MD Diagnosis: 1-2 tablets by mouth every 4-6hrs for post op pa in Last Documented On 1 12:11PM By Danish Hartman ; [facility] oxyCODONE HCl 5 MG Oral Tablet 01/14/2021 - 01/19/2021 Provider: Danish Hartman MD Diagnosis: take 1-2 tablets every 4-6hrs for post op pain Last Documented On 1 4:49PM By Danish Hartman ; [facility] oxyCODONE HCl 5 MG Oral Tablet 01/12/2021 - 01/17/2021 Provider: Danish Hartman MD Diagnosis: take 1-2 tablets every 4-6hrs for post op pain Last Documented On 1 10:46AM By Danish Hartman ; [facility] Losartan Potassium 50 MG Oral Tablet 01/12/2021 - 03/27 Provider: Diagnosis: Last Documented On 1 1:51PM By Aileen Perez ; [facility] Mobic 15 MG Oral Tablet 12/22/2020 - 01/21/2021 Provid er: Danish Hartman MD Diagnosis: 1 every bedtime Last Documented On 1 3:29PM By Danish Hartman ; [facility] Acetaminophen 500 MG Oral Tablet 12/22/2020 - 01/22/20 Provider: Danish Hartman MD Diagnosis: take 2 tablets 3 times daily, AFTER SURGERY Last Documented On 1 3:28PM By Danish Hartman ; [facility] Colace 100 MG Oral Capsule 12/22/2020 - 01/21/2021 Pro vider: Danish Hartman MD Diagnosis: 1-2 tablets daily, as needed, AFTER SURGERY Last Documented On 1 3:28PM By Danish Hartman ; [facility] Doxycycline Hyclate 100 MG O ral Capsule 12/22/2020 - 12/25/2020 Provider: Danish Hartman MD Diagnosis: twice a day Last Documented On 1 3:27PM By Danish Hartman ; [facility] Aspirin Adult Low Strength 8 1 MG Oral Tablet Delayed Release 12/22/2020 - 02/05/2021 Provider: Danish Hartman MD Diagnosis: twice a day Last Documented On 1 3:26PM By Danish Hartman ; [facility] Zofran 4 MG Oral Tablet 12/22/2020 - 01/21/2021 Provid er: Danish Hartman MD Diagnosis: 1 po q 6 to 8 hrs prn pain t alex 1 tablet every 6-8hrs for nausea, AFTER SURGERY Last Documented On 1 3:26PM By Danish Hartman ; [facility] Ultram 50 MG Oral Tablet 12/22/2020 - 01/01/2021 Provi cleo: Danish Hartman MD Diagnosis: 1-2 p o q 6-8h take 1-2 tabl ets every 6-8 hours for breakthrough post op pain Last Documented On 1 3:35PM By Danish Hartman ; [facility] oxyCODONE HCl 5 MG Oral Tablet 12/22/2020 - 12/27/2020 Provider: Danish Hartman MD Diagnosis: take 1-2 tablets every 4-6hrs for post op pain Last Documented On 1 3:35PM By Danish Hartman ; [facility] oxyCODONE HCl 5 MG Oral [...] 4:26PM By Danish Hartman ; [facility] Medications Administered Includes: Administered Medications from this encounter No Administered Medications Recorded Vital Signs Includes: Vital Signs from this encounter Vital Name 06/29/2021 01:11P Blood Pressure Sitting (mmHg) 102/63 Pulse Rate-Sitting (bpm) 96 Height (in) 69 Weight (lb) 214.8 Body Mass Index (kg/m2) 31.7 Body Surface Area (m2) 2.1 Note: mg Last Documented: On 06/29/2021 1:11PM ; [facility] Results Includes: Results discussed during this encounter [...] Documented On 2 1:01PM ; [facility] Caffeine use 01/12/2021 Last Documented On 2 1:01PM ; [facility] No recent change in diet 01/12/2021 Last Documented On 2 1:01PM ; [facility] Not a current smoker. 01/12/2021 Last Documented On 2 1:01PM ; [facility] Not exercising regularly 01/12/2021 Last Documented On 2 1:01PM ; [facility] Not using drugs 01/12/2021 Last Documented On 2 1:01PM ; [facility] Non-smoker 10/06/2020 Last Documented On 2 1:01PM ; [facility] No tobacco use 10/08/2018 Last Documented On 2 1:01PM ; [facility] Smoking status : Never smoker 10/08/2018 Last Documented On 2 1:01PM ; [facility] Procedures and Surgical History Includes: Procedures from this encounter Procedures Code Diagnosis Performing Provider Service L ocation Service Date use of tobacco assessment performed 1000F Last Documented On 2 1:01PM ; [facility] Medical History Includes: Medical History addressed during this encounter Description Last Updated Anemia 01/12/2021 Last Documented On 2 1:01PM ; [facility] Arthritis 01/12/2021 Last Documented On 2 1:01PM ; [facility] History of diabetes mellitus 01/12/2021 Last Documented On 2 1:01PM ; [facility] History of diverticulitis of colon 01/12 Last Documented On 2 1:01PM ; [facility] History of Gallbladder 01/12/2021 Last Documented On 2 1:01PM ; [facility] History of heart disease 01/12/2021 Last Documented On 2 1:01PM ; [facility] History of Rheumatology 01/12/2021 Last Documented On 2 1:01PM ; [facility] Hypertension 01/12/2021 Last Documented On 2 1:01PM ; [facility] Past Surgical History: RTC RT ~PKR LT ~H ernia 01/12/2021 Last Documented On 2 1:01PM ; [facility] Sleep Apnea 01/12/2021 Last Documented On 2 1:01PM ; [facility] Total knee arthroplasty 01/12/2021 Last Documented On 2 1:01PM ; [facility] Recent immunization for flu 2019 021 Last Documented On 2 1:01PM ; [facility] Recent immunization for pneumococcal pne umonia 201901/12/2021 Last Documented On 2 1:01PM ; [facility] Family History Includes: Family History addressed during this encounter Description Last Updated Diabetes mellitus 01/12/2021 Last Documented On 2 1:01PM ; [facility] Family history of cancer 01/12/2021 Last Documented On 2 1:01PM ; [facility] Family history of heart disease 01/13/20 21 Last Documented On 2 1:01PM ; [facility] Family history of hypertension 1 Last Documented On 2 1:01PM ; [facility] Family history of osteoporosis 1 Last Documented On 2 1:01PM ; [facility] Review of Systems Includes: Review [...] Documented On 2 1:07PM ; [facility] Encounters Encounter Provider Location Date Check-In Time Check- Out Time Diagnosis [facility] 2 12:33PM 1:26PM Insurance Includes: Active Insurance Policies Plan Name Member ID Group # Subscriber Relationship Effect jim Dates 1 - [facility] [id number] [place] III Self Clinical Notes Includes: Clinical Notes from this encounter No Clinical Notes Recorded
--- OUTSIDE RECORDS SUMMARY | 2025-01-16 15:01 | XMS_ITS | Encounter Summary ---
Author Organization [employer] ([place], [place], [place], [place]) Address [address] [place] [address] Care Team Providers Care General Technician Name Role Phone Unavailable Primary Care Provider Unavailabl e Encounter Details Date Type Department Care Team (Late st Contact Info) Description 12/23/2020 Transcribed Document [facility] Family Medicine [facility] [place] [address] ProviderJaime MD [address] [place], [place] [id number] Social History Tobacco Use Types Packs/Day Years [...] III /Sex: 1950 Male Med Rec #: [id number] Physician: KAYLA ZIMMERMAN JR, JR, MD-ORT Financial #: [id number] Pt. Type: O Room/Bed: Admit/Disch: 12/23/20 04:16:00 - [place] [facility] [place]Op Case Attendance Entry 1 Entry 2 Entry 3 Case Attendee KAYLA ZIMMERMAN JR, JR, TARA MERA APRN,HAYDER KOROMA, LUCIE CHANCEORT Role Performed Surgeon/Proceduralist, FURNACE HAND/Nurse Test Boring Crew Chief Kiln Packer, First First Time In 12/23/20 07:51:00 12/23/20 [...] 5 Entry 6 Case Attendee Stephan Boyce, MICROBIOLOGICAL LAB TECHNICIAN/PLUMBING INSTALLER GET ARI[address] ST Peel, Polly, Scub Tech Role Performed Production Line, First Scrub, First Scrub, Second Time In [...] Case Attendee OTHER, ATTENDEE #1 NGOZI PETTY, FURNACE HAND Role Performed Vendor FURNACE HAND/Nurse Test Boring Crew Chief Time In 12/23/20 07:51:00 12/23/20 08:29:00 Time Out 12/23/20 09:55:00 12/23/20 08:41:00 Procedure Knee Total Joint Knee Total Joint Replacement Replacement Other Attendee [place] FURNACE HAND BREAK Superficial Wound Closed By: Thom Modified By: HAYDER EASON RN LONGSWORTH, GARY, LUCIE 12/23/20 07:19:17 12/23/20 08:29:30 [facility] IntraOp Case Attendance Audit 12/23/20 09:55:23 Artificial Glass Eye Maker: [email or web address] Modifier: LONGGA 1 <+> Time Out [...] Procedure Knee Total Joint Replacement 12/23/20 08:48:55 Artificial Glass Eye Maker: [email or web address] Modifier: LONGGA 8 <+> Time Out 8 <*> Procedure Knee Total Joint Replacement 12/23/20 08:29:30 Artificial Glass Eye Maker: LONGGA Modifier: LONGGA <+> 8 Case Attendee <+> 8 Role Performed <+> 8 Time In <+> 8 Procedure <+> 8 Other Attendee 12/23/20 08:25:18 Artificial Glass Eye Maker: LONGGA Modifier: LONGGA 1 <+> Time In [...] Procedure Knee Total Joint Replacement 12/23/20 07:25:50 Artificial Glass Eye Maker: LONGGA Modifier: LONGGA <+> 1 Procedure 2 [...] [facility] IntraOp Case Times Audit 12/23/20 09:55:21 Artificial Glass Eye Maker: LONGGA Modifier: LONGGA <+> 1 Out Room Time <+> 1 Stop Time <+> 1 Stop Time 12/23/20 08:21:13 Artificial Glass Eye Maker: LONGGA Modifier: LONGGA <+> 1 Start Time [...] [facility] IntraOp Counts Verification Audit 12/23/20 09:01:12 Artificial Glass Eye Maker: LONGGA Modifier: LONGGA <+> 2 Procedure <+> [...] HAYDER EASON, LUCIE, Accompanied by TARA MERA APRN,FURNACE HAND Last Modified By: HAYDER EASON RN 12/23/20 09:08:10 [facility] IntraOp Dressing and Packing Entry 1 Type Dressing Location RIGHT KNEE Wound Dressing Item Papo Supplemental Limb immobilizer, Cold Applications pack Applied By Stephan Boyce, MICROBIOLOGICAL LAB TECHNICIAN/PLUMBING INSTALLER Other Comments JONATHAN WOUND DRESSING Last Modified [...] RN 12/23/20 07:24:40 [facility] IntraOp General Case Cloth Mercerizing Supervisor 1 Case Information OR OR 02 SJE Case Level 1 Room Verified Yes Wound Class I - Clean Specialty Orthopedic Anesthesia Type General ASA Class 3 Diagnosis Preop Diagnosis DEGENERATIVE JOINT DISEASE, RIGHT KNEE Postop Same As Preop Yes Postop Diagnosis DEGENERATIVE JOINT DISEASE, RIGHT KNEE Last Modified By: HAYDER EASON RN 12/23/20 08:27:58 [facility] IntraOp General Case Data Audit 12/23/20 08:27:58 Artificial Glass Eye Maker: YVETTE Modifier: LONGGA 1 <*> OR OR [...] PATELLA ITOTAL JIGS CR ITOTAL ID Identification [id number] Description Implant Quantity 2 1 1 Implant Site RIGHT KNEE RIGHT KNEE RIGHT KNEE Implant Identification Model Number Implant [id number] Identification Serial Number Implant [id number] Identification Lot Number Implant [place]:Blake Conformis Conformis Identification Orthopaedics Lease Administration Supervisor Name: Implant [id number] Identification Catalog Number Implant Size Implant Has an Yes Yes Yes Expiration Date Implant Expiration 01/24/22 09/23/22 12/24/21 Date Wasted Radioactive Material Time Implanted Tissue Implant Continue for Tissue Implant Documentation Tissue Identification Number Graft Prep Per Lease Administration Supervisor Instructions: Tissue Preparation Method: Reconstitution Solution: Reconstitution Solution Lot Number Reconstitution Solution Expiration Date: Thawing Solution Thawing Solution Lot Number Thawing Solution Expiration Date Preparation Materials, Other Preparation Materials, Other Lot Number Preparation Materials, Other Expiration Date Tissue Prepared/Processed By Lease Administration Supervisor Paperwork Completed Implant Type Comment Last Modified [...] KT CR FULL ITOTAL ID Identification KLEVER [id number] Description Implant Quantity 1 1 1 Implant Site RIGHT KNEE RIGHT KNEE RIGHT KNEE Implant Identification Model Number Implant [id number] Identification Serial Number Implant Identification Lot Number Implant Conformis Conformis Conformis Identification Lease Administration Supervisor Name: Implant [id number] Identification Catalog Number Implant Size Implant Has an Yes Yes Yes Expiration Date Implant Expiration 12/24/21 12/24/21 12/24/21 Date Wasted Radioactive Material Time Implanted Tissue Implant Continue for Tissue Implant Documentation Tissue Identification Number Graft Prep Per Lease Administration Supervisor Instructions: Tissue Preparation Method: Reconstitution Solution: Reconstitution Solution Lot Number Reconstitution Solution Expiration Date: Thawing Solution Thawing Solution Lot Number Thawing Solution Expiration Date Preparation Materials, Other Preparation Materials, Other Lot Number Preparation Materials, Other Expiration Date Tissue Prepared/Processed By Lease Administration Supervisor Paperwork Completed Implant Type Comment Last Modified By: HAYDER EASON RN LONGSWORTH, GARY, RN LONGSWORTH, GARY, RN 12/23/20 08:49:46 12/23/20 08:51:06 12/23/20 08:52:02 [facility] IntraOp Implant Log Audit 12/23/20 08:52:02 Artificial Glass Eye Maker: LONGGA Modifier: LONGGA <+> 6 Implant Identification Description <+> 6 Implant Identification Serial Number <+> 6 Implant Identification Lease Administration Supervisor Name: <+> 6 Implant Expiration Date <+> 6 Implant Site <+> 6 Implant Quantity <+> 6 Implant Identification Catalog Number <+> 6 Implant Type <+> 6 Implant Has an Expiration Date <+> 6 Type 12/23/20 08:51:06 Artificial Glass Eye Maker: LONGGA Modifier: LONGGA <+> 5 Implant Identification Description <+> 5 Implant Identification Serial Number <+> 5 Implant Identification Lease Administration Supervisor Name: <+> 5 Implant Expiration Date <+> 5 Implant Site <+> 5 Implant Quantity <+> 5 Implant Identification Catalog Number <+> 5 Implant Type <+> 5 Implant Has an Expiration Date <+> 5 Type 12/23/20 08:49:46 Artificial Glass Eye Maker: LONGGA Modifier: LONGGA <+> 4 Implant Identification Description <+> 4 Implant Identification Serial Number <+> 4 Implant Identification Lease Administration Supervisor Name: <+> 4 Implant Expiration Date <+> 4 Implant Site <+> 4 Implant Quantity <+> 4 Implant Identification Catalog Number <+> 4 Implant Type <+> 4 Implant Has an Expiration Date <+> 4 Type 12/23/20 08:48:24 Artificial Glass Eye Maker: LONGGA Modifier: LONGGA <+> 3 Implant Expiration Date 12/23/20 08:48:23 Artificial Glass Eye Maker: LONGGA Modifier: LONGGA <+> 3 Implant Identification Description <+> 3 Implant Identification Serial Number <+> 3 Implant Identification Lease Administration Supervisor Name: <+> 3 Implant Site <+> 3 Implant Quantity <+> 3 Implant Identification Catalog Number <+> 3 Implant Type <+> 3 Implant Has an Expiration Date <+> 3 Type 12/23/20 08:47:19 Artificial Glass Eye Maker: LONGGA Modifier: LONGGA <+> 2 Implant Identification Description <+> 2 Implant Identification Lot Number <+> 2 Implant Identification Lease Administration Supervisor Name: <+> 2 Implant Expiration Date <+> [...] w/ vancomycin 1Gm vial - epinephrine 1:100,000 [id number] 20ml vial - [id number] Combo Med List 4 - Combo Med [...] [facility] IntraOp Medication Admin Audit 12/23/20 08:39:42 Artificial Glass Eye Maker: LONGGA Modifier: LONGGA <+> 5 Medication/Irrigant <+> [...] JR, MD-ORT, SAMARIA, TARA, URSULA,PAPO, [place]en, Stephan, MICROBIOLOGICAL LAB TECHNICIAN/PLUMBING INSTALLER Position Verified Positioning Yes Verified by Anesthesia [...] [facility] IntraOp Surgical Procedures Audit 12/23/20 09:51:54 Artificial Glass Eye Maker: LONGGA Modifier: LONGGA 1 <*> Procedure Knee Total Joint Replacement 1 <+> Stop 12/23/20 08:21:22 Artificial Glass Eye Maker: LONGGA Modifier: LONGGA <+> 1 Start [facility] IntraOp Temp Regulation Devices Entry 1 Temp Regulation Temperature Warm blankets Regulation Device Temperature Upper body Regulation Site Temperature SAMARIA, TARA, WEBMETHODS ARCHITECT,FURNACE HAND Regulation Device Applied by Last Modified By: [...] [facility] IntraOp Time Out Audit 12/23/20 08:31:31 Artificial Glass Eye Maker: YVETTE Modifier: YVETTE 1 <+> Surgeon 1 [...] Padded Under Cuff Applied By Stephan Boyce, KATHI/PLUMBING INSTALLER Times Start Time 12/23/20 08:10:00 Stop Time 12/23/20 08:59:00 Last Modified By: HAYDER EASON RN 12/23/20 09:00:54 [facility] IntraOp Tourniquet Audit 12/23/20 09:00:54 Artificial Glass Eye Maker: YVETTE Modifier: YVETTE <+> 1 Stop Time Case Comments <None> Finalized By: HAYDER EASON, RN Document Signatures Signed By: HAYDER EASON RN 12/23/20 09:59 Electronically signed by Lakesha [facility] Conversion Credit Collections Analyst Cerner at 07/09/2022 10:43 AM CDT documented in this encounter Plan of Treatment Not on file documented as of this encounter Visit Diagnoses Not on filedocumented in this encounter
--- OUTSIDE RECORDS SUMMARY | 2025-01-16 15:01 | XMS_ITS | Clinical Summary ---
Author Organization Healthcare Address [address] [place] [address] Care Team Providers Care Fleet Sales Manager Name Role Phone Columba Rodríguez URSULA Primary Care Provider [phone] Shay Biggs MD Unavailable [phone] Allergies Active Allergy Reactions Criticality Noted Date [...] Type Department Care Team Description 11/04/2024 Telephone [facility] [address], [address] [place] [address] Baldemar Gibbs MD from Last [...] Wellness (AWV) 1950 [facility]-Infant/Child/Adol SDOH Screenings 1950 ITS-TOQHN-14 Vaccine (#1) 1955 Diabetes: Dental Exam 1962 [...] Recently Relevant to Health Maintenance Results * [facility] Hepatitis C Antibody (02/13/2019 6:35 PM EST) [facility] Hepatitis C Ab NEGATIVE Reference Range: Negative [facility] 02/13/2019 6:35 PM EST 02/13/2019 7:06 PM EST us Major Diaz MD LAB BLOOD ORDERABLES Final Re sult [facility] from Last 3 Months or Most Recently Relevant to Health Maintenance Insurance Care Teams Fleet Sales Manager Relationship Specialty Start Date End Date Columba Rodríguez APRN [address] [place] [address] PCP - General 11/04/24 Shay Biggs MD [address] [facility] [address] [place] [address] Referring Physician Cardiology 11/04/24
--- OUTSIDE RECORDS SUMMARY | 2025-01-16 15:01 | XMS_ITS | Encounter Summary ---
[facility] Organization [facility] Address [address] [place] [id number] Care Team Providers Care Maintenance Advisor Name Role Phone Columba Rodríguez APRN Primary Care Provider [phone] Reason for Visit * Reason Comments Med Refill Encounter Details Date Type Department Care Team (Late Contact Info) Description 09/01/2023 Refill [facility] PULMONARY & CRITICAL CARE MEDICINE [address] [place] [address] Isai Tran MD [address] [place] [address] Social History Tobacco Use Types Packs/Day Years [...] Description 06/16/2025 11:15 AM EDT Office Visit [facility] RHEUMATOLOGY [address] [place] [address] Cash Khanna DO [address] [facility] [address] [place], [place] [id number] documented as of this encounter Visit Diagnoses Not on filedocumented in this encounter Care Teams Maintenance Advisor Relationship Specialty Start Date End Date Columba Rodríguez APRN [address] [place] [phone] PCP - General Family Medicine 11/10/23 documented as of this encounter
--- OUTSIDE RECORDS SUMMARY | 2025-01-16 15:01 | XMS_ITS | Encounter Summary ---
Author Organization [employer] ([place], [place], [place], [place]) Address [address] [place] [address] Care Team Providers Care Tank Refinisher Name Role Phone Unavailable Primary Care Provider Unavailabl e Encounter Details Date Type Department Care Team (Late st Contact Info) Description 12/23/2020 Transcribed Document [facility] [place] [address] [place] [address] ProviderJaime MD [address] [place], [place] [id number] Social History Tobacco Use Types Packs/Day Years [...] III /Sex: 1950 Male Med Rec #: [id number] Physician: KAYLA ZIMMERMAN JR, JR, MD-ORT Financial #: [id number] Pt. Type: O Room/Bed: Admit/Disch: 12/23/20 04:16:00 - Institution: [facility] [place] PostOp Case Times Entry 1 In PACU II 12/23/20 11:13:00 Ready for PACU II 12/23/20 13:49:00 Discharge Discharge from PACU 12/23/20 13:49:00 II Last Modified By: Rosa Montes RN 12/23/20 14:04:05 Finalized By: Rosa Montes, RN Document Signatures Signed By: Rosa Montes RN 12/23/20 14:04 Electronically signed by Lakesha [facility] Conversion Stunner Cerner at 07/09/2022 10:45 AM CDT documented in this encounter Plan of Treatment Not on file documented as of this encounter Visit Diagnoses Not on filedocumented in this encounter
--- OUTSIDE RECORDS SUMMARY | 2025-01-16 15:01 | XMS_ITS | Clinical Summary ---
Author Organization [facility] , [facility] Address [address] [place] [address] Phone Care Team Providers Care Claim Examiner Name Role Phone Jonah Anthony APRN Primary Care Provider [phone] Minnie VILLALOBOS, Danish Maurer [phone] Reason for Visit and Chief Complaint Post Op Problems Includes: Problems addressed during this encounter and other active Problems All Visits Onset Date Resolved Date Provider Condition S tatus Joint Pain Right Knee 10/06/2020 Danish Ocasio Active Last Documented On 1 3:35PM ; [facility] Joint Pain Shoulder Left 10/08/2018 Ravi Kruse MD Active Last Documented On 9 8:56AM ; [facility] Plan of Treatment Right total knee improving patient continue using the dynamic splints at home to continue stretching extension and flexion follow-up in 6-8 weeks return to work full duty no restrictions - Last Documented On 05/24/2021 3:41PM ; [facility] Instructions to patient Lose weight Last Documented On 2 10:06AM ; [facility] Assessments Includes: Assessments from this encounter No Assessments Recorded Instructions Includes: Instructions from this encounter Instructions to patient Lose weight Last Documented On 2 10:06AM ; [facility] Medical Equipment - Implanted Devices Includes: Current Devices No Medical Equipment Recorded Medications Includes: Medications discussed during this encounter and other current Medications Current Medications (continue as prescribed) Plavix 75 MG Oral Tablet 03/29/2021 Provider: Diagnosis: Last Documented On 2 10:05AM By Nataliia Lockwood ; [facility] Actos 15 MG Oral Tablet 01/12/2021 Provider: Diagnosis: Last Documented On 1 1:52PM By Aileen Perez ; [facility] Past Medications on file oxyCODONE HCl 5 MG Oral Tablet 03/12/2021 - 03/16/2021 Provider: Danish Hartman MD Diagnosis: 1 tablet by mouth every 4 hours for post op pain Last Documented On 1 11:56AM By Danish Hartman ; [facility] Ultram 50 MG Oral Tablet 03/12/2021 - 03/22/2021 Provi cleo: Danish Hartman MD Diagnosis: 1-2 tablets by mouth every 4-6hrs for post op pa in Last Documented On 1 12:11PM By Danish Hartman ; [facility] oxyCODONE HCl 5 MG Oral Tablet 01/14/2021 - 01/19/2021 Provider: Danish Hartman MD Diagnosis: take 1-2 tablets every 4-6hrs for post op pain Last Documented On 1 4:49PM By Danish Hartman ; [facility] oxyCODONE HCl 5 MG Oral Tablet 01/12/2021 - 01/17/2021 Provider: Danish Hartman MD Diagnosis: take 1-2 tablets every 4-6hrs for post op pain Last Documented On 1 10:46AM By Danish Hartman ; [facility] Losartan Potassium 50 MG Oral Tablet 01/12/2021 - 03/27 Provider: Diagnosis: Last Documented On 1 1:51PM By Aileen Perez ; [facility] Mobic 15 MG Oral Tablet 12/22/2020 - 01/21/2021 Provid er: Danish Hartman MD Diagnosis: 1 every bedtime Last Documented On 1 3:29PM By Danish Hartman ; [facility] Acetaminophen 500 MG Oral Tablet 12/22/2020 - 01/22/20 Provider: Danish Hartman MD Diagnosis: take 2 tablets 3 times daily, AFTER SURGERY Last Documented On 1 3:28PM By Danish Hartman ; [facility] Colace 100 MG Oral Capsule 12/22/2020 - 01/21/2021 Pro vider: Danish Hartman MD Diagnosis: 1-2 tablets daily, as needed, AFTER SURGERY Last Documented On 1 3:28PM By Danish Hartman ; [facility], [facility] Doxycycline Hyclate 100 MG O ral Capsule 12/22/2020 - 12/25/2020 Provider: Danish Harmtan MD Diagnosis: twice a day Last Documented On 1 3:27PM By Danish Hartman ; [facility], [facility] Aspirin Adult Low Strength 8 1 MG Oral Tablet Delayed Release 12/22/2020 - 02/05/2021 Provider: Danish Hartman MD Diagnosis: twice a day Last Documented On 1 3:26PM By Danish Hartman ; [facility] Zofran 4 MG Oral Tablet 12/22/2020 - 01/21/2021 Provid er: Danish Hartman MD Diagnosis: 1 po q 6 to 8 hrs prn pain t alex 1 tablet every 6-8hrs for nausea, AFTER SURGERY Last Documented On 1 3:26PM By Danish Hartman ; [facility] Ultram 50 MG Oral Tablet 12/22/2020 - 01/01/2021 Provi cleo: Danish Hartman MD Diagnosis: 1-2 p o q 6-8h take 1-2 tabl ets every 6-8 hours for breakthrough post op pain Last Documented On 1 3:35PM By Danish Hartman ; [facility] oxyCODONE HCl 5 MG Oral Tablet 12/22/2020 - 12/27/2020 Provider: Danish Hartman MD Diagnosis: take 1-2 tablets every 4-6hrs for post op pain Last Documented On 1 3:35PM By Danish Hartman ; [facility] oxyCODONE HCl 5 MG Oral Tablet 12/15/2020 - 12/19/2020 Provider: Danish Hartman MD Diagnosis: 1-2 po q 4-6h take 1-2 table ts every 4-6hrs for post op pain Last Documented On 1 4:37PM By Danish Hartman ; [facility] Cefadroxil 500 MG Oral Capsule 12/15/2020 - 12/18/2020 Provider: Danish Hartman MD Diagnosis: twice a day Last Documented On 1 4:26PM By Danish Hartman ; [facility] Medications Administered Includes: Administered Medications from this encounter No Administered Medications Recorded Vital Signs Includes: Vital Signs from this encounter Vital Name 05/18/2021 10:04A Blood Pressure Sitting (mmHg) 136/71 Pulse Rate-Sitting (bpm) 79 Height (in) 69 Weight (lb) 215 Body Mass Index (kg/m2) 31.7 Body Surface Area (m2) 2.1 Note: sc Last Documented: On 05/18/2021 10:05A M ; [facility] Results Includes: Results discussed [...] 03/29/2021 Last Documented On 2 9:59AM ; [facility] Caffeine use 01/12/2021 Last Documented On 2 9:59AM ; [facility] No recent change in diet 01/12/2021 Last Documented On 2 9:59AM ; [facility] Not a current smoker. 01/12/2021 Last Documented On 2 9:59AM ; [facility] Not exercising regularly 01/12/2021 Last Documented On 2 9:59AM ; [facility] Not using drugs 01/12/2021 Last Documented On 2 9:59AM ; [facility] Non-smoker 10/06/2020 Last Documented On 2 9:59AM ; [facility] No tobacco use 10/08/2018 Last Documented On 2 9:59AM ; [facility] Smoking status : Never smoker 10/08/2018 Last [...] 01/12/2021 Last Documented On 2 9:59AM ; [facility] Family history of cancer 01/12/2021 Last Documented On 2 9:59AM ; [facility] Family history of heart disease 01/13/20 21 Last Documented On 2 9:59AM ; [facility] Family history of hypertension 1 Last Documented On 2 9:59AM ; [facility] Family history of osteoporosis 1 Last Documented On 2 9:59AM ; [facility] Review of Systems Includes: Review [...] Active Last Documented On 2 1:07PM ; [facility] Encounters Encounter Provider Location Date Check-In Time Check- Out Time Diagnosis Post Op Danish Hartman MD [facility] 2 9:58AM 10:38AM Insurance Includes: Active Insurance Policies Plan Name Member ID Group # Subscriber Relationship Effect jim Dates 1 - [facility] [id number] Sequim Alford III Self Clinical Notes Includes: Clinical Notes from this encounter No Clinical Notes Recorded
--- OUTSIDE RECORDS SUMMARY | 2025-01-16 15:01 | XMS_ITS | Encounter Summary ---
Author Organization [email or web address] ([place], [place], [place], [place]) Address [address] [place] [address] Care Team Providers Care Behavioral Intervention Specialist Name Role Phone Unavailable Primary Care Provider Unavailabl e Encounter Details Date Type Department Care Team (Late st Contact Info) Description 12/23/2020 Transcribed Document [facility] [place] Family Medicine [address] [place] [address] ProviderJaime MD [address], [place] [id number] Social History Tobacco Use Types Packs/Day Years [...]
--- OUTSIDE RECORDS SUMMARY | 2025-01-16 15:01 | XMS_ITS | Encounter Summary ---
Author Organization [employer] ([place], [place], [place], [place]) Address [address] [place] [address] Care Team Providers Care Optical Manager Name Role Phone Unavailable Primary Care Provider Unavailabl e Encounter Details Date Type Department Care Team (Late st Contact Info) Description 12/23/2020 Transcribed Document [facility] [place] [address] ProviderJaime MD [address] [place] [phone] Social History Tobacco Use Types Packs/Day Years [...]
--- OUTSIDE RECORDS SUMMARY | 2025-01-16 15:01 | XMS_ITS ---
Care Plan - [facility], [facility] Created on: January 16, 2025 Mable Alford III : 1950 Sex: Male Author Organization [facility] , [facility] Address [address] [place] [address] Phone Care Team Providers Care As400 Programmer Name Role Phone Jonah Anthony APRN Primary Care Provider [phone] Minnie VILLALOBOS, Danish [facility] [phone]
--- OUTSIDE RECORDS SUMMARY | 2025-01-16 15:01 | XMS_ITS | Encounter Summary ---
Author Organization [employer] ([place], [place], [place], [place]) Address [address] [place] [address] Care Team Providers Care Mattress Packer Name Role Phone Unavailable Primary Care Provider Unavailabl e Reason for Referral * Consultation (Routine) - Closed Specialty Diagnoses / Procedures Referred By Contodilia t Referred To Contact Neurology Diagnoses Seizure (HCC) Kirsten Gates [address] [place] [address] Phone: tel: Mac Leonard MD [address] [place] [address] Phone: tel: fax: Referral ID Status Reason Start Date Expiration Date V isits Requested Visits Authorized [id number] Closed Specialty Services Required 01/03/2024 01/02/2025 1 1 Encounter Details Date Type Department Care Team (Late st Contact Info) Description 01/03/2024 Outside Orders [facility] [address] [place] [address] Kirsten [place] [address] Seizure (HCC) (Primary Dx) Social History Tobacco [...] Date Milton rded Speak language other than Estonian at home Not on file 01/23/2024 Want [...]
--- OUTSIDE RECORDS SUMMARY | 2025-01-16 15:01 | XMS_ITS | Encounter Summary ---
Author Organization [employer] ([place], [place], [place], [place]) Address [address] [place] [address] Care Team Providers Care Time Study Statistician Name Role Phone Unavailable Primary Care Provider Unavailabl e Encounter Details Date Type Department Care Team (Late st Contact Info) Description 12/23/2020 Transcribed Document [facility] [place] [address] ProviderJaime MD [address] [place] [phone] Social History Tobacco Use Types Packs/Day Years [...] Sent to Post Acute Providers : Yes [facility] Quality Web Info Shared w Pt/Fam [...] EDT Electronically signed by Adolph Crowder Conversion Occupational Health And Safety Adviser Romulo at 07/09/2022 10:41 AM CDT documented in this encounter Plan of Treatment Not on file documented as of this encounter Visit Diagnoses Not on filedocumented in this encounter
--- OUTSIDE RECORDS SUMMARY | 2025-01-16 15:01 | XMS_ITS | Encounter Summary ---
Author Organization [employer] ([place], [place], [place], [place]) Address [address] [place] [address] Care Team Providers Care Internal Combustion Engineer Name Role Phone Unavailable Primary Care Provider Unavailabl e Encounter Details Date Type Department Care Team (Late st Contact Info) Description 12/23/2020 Transcribed Document [facility] [place] [facility] [place] [address] ProviderJaime MD [address] [place], [place] [phone] Social History Tobacco Use Types Packs/Day Years [...]
--- OUTSIDE RECORDS SUMMARY | 2025-01-16 15:01 | XMS_ITS | Clinical Summary ---
Author Organization [facility] Address [address] [place] [address] Phone Care Team Providers Care Community Health Promoter Name Role Phone Javonhéctor URSULA Anthonyrosagerald Primary Care Provider [phone] Minnie VILLALOBOS, Danish [facility] [phone] Reason for Visit and Chief Complaint The Chief Complaint is: rt knee pain Problems Includes: Problems addressed during this encounter and other active Problems All Visits Onset Date Resolved Date Provider Condition S tatus Joint Pain Right Knee 10/06/2020 Danish Ocasio Active Last Documented On 1 3:35PM ; [facility] Joint Pain Shoulder Left 10/08/2018 Ravi Kruse MD Active Last Documented On 9 8:56AM ; [facility] Plan of Treatment Patient was seen by myself and Dr. Hartman. Baldemar Mota PA-C Patient will follow- up 4 weeks continue physical therapy 2 times a week emphasizing range of motion hopefully we will see if we can return him to work in 4 weeks continue with Dynasplint at home - Last Documented On 04/20/2021 11:22PM ; [facility] Pending Tests Order Diagnosis Results Due Ordering P rovider Therapy - Physical Therapy Knee 04/20/21 Danish Hartman MD Last Documented On 2 11:22PM ; [facility] Assessments Includes: Assessments from this encounter Findings Right total knee replacement - Last Documented On 04/20/2021 11:22PM ; [facility] Right knee manipulation under anesthesia March 15, 2021 - Last Documented On 04/20/2021 11:22PM ; [facility] Medical Equipment - Implanted Devices Includes: Current Devices No Medical Equipment Recorded Medications Includes: Medications discussed during this encounter and other current Medications Current Medications (continue as prescribed) Plavix 75 MG Oral Tablet 03/29/2021 Provider: Diagnosis: Last Documented On 2 10:05AM By Nataliia Lockwood ; [facility] Actos 15 MG Oral Tablet 01/12/2021 Provider: Diagnosis: Last Documented On 1 1:52PM By Aileen Dubois [facility] Past Medications on file oxyCODONE HCl 5 MG Oral Tablet 03/12/2021 - 03/16/2021 Provider: Danish Hartman MD Diagnosis: 1 tablet by mouth every 4 hours for post op pain Last Documented On 1 11:56AM By Danish Hartman ; [facility], [facility] Ultram 50 MG Oral Tablet 03/12/2021 - 03/22/2021 Provi cleo: Danish Hartman MD Diagnosis: 1-2 tablets by mouth every 4-6hrs for post op pa in Last Documented On 1 12:11PM By Danish Hartman ; [facility], [facility] oxyCODONE HCl 5 MG Oral Tablet 01/14/2021 - 01/19/2021 Provider: Danish Hartman MD Diagnosis: take 1-2 tablets every 4-6hrs for post op pain Last Documented On 1 4:49PM By Danish Hartman ; [facility], [facility] oxyCODONE HCl 5 MG Oral Tablet 01/12/2021 - 01/17/2021 Provider: Danish Hartman MD Diagnosis: take 1-2 tablets every 4-6hrs for post op pain Last Documented On 1 10:46AM By Danish Hartman ; [facility], [facility] Losartan Potassium 50 MG Oral Tablet 01/12/2021 - 03/27 Provider: Diagnosis: Last Documented On 1 1:51PM By Aileen Dubois [facility] Mobic 15 MG Oral Tablet 12/22/2020 - 01/21/2021 Provid er: Danish Hartman MD Diagnosis: 1 every bedtime Last Documented On 1 3:29PM By Danish Hartman ; [facility], [facility] Acetaminophen 500 MG Oral Tablet 12/22/2020 - 01/22/20 Provider: Danish Hartman MD Diagnosis: take 2 tablets 3 times daily, AFTER SURGERY Last Documented On 1 3:28PM By Danish Hartman ; [facility], [facility] Colace 100 MG Oral Capsule 12/22/2020 - 01/21/2021 Pro vider: Danish Hartman MD Diagnosis: 1-2 tablets daily, as needed, AFTER SURGERY Last Documented On 1 3:28PM By Danish Hartman ; [facility], [facility] Doxycycline Hyclate 100 MG O ral Capsule 12/22/2020 - 12/25/2020 Provider: Danish Hartman MD Diagnosis: twice a day Last Documented On 1 3:27PM By Danish Hartman ; [facility], [facility] Aspirin Adult Low Strength 8 1 MG Oral Tablet Delayed Release 12/22/2020 - 02/05/2021 Provider: Danish Hartman MD Diagnosis: twice a day Last Documented On 1 3:26PM By Danish Hartman ; [facility], [facility] Zofran 4 MG Oral Tablet 12/22/2020 - 01/21/2021 Provid er: Danish Hartman MD Diagnosis: 1 po q 6 to 8 hrs prn pain t alex 1 tablet every 6-8hrs for nausea, AFTER SURGERY Last Documented On 1 3:26PM By Danish Hartman ; [facility], [facility] Ultram 50 MG Oral Tablet 12/22/2020 - 01/01/2021 Provi cleo: Danish Hartman MD Diagnosis: 1-2 p o q 6-8h take 1-2 tabl ets every 6-8 hours for breakthrough post op pain Last Documented On 1 3:35PM By Danish Hartman ; [facility], [facility] oxyCODONE HCl 5 MG Oral Tablet 12/22/2020 - 12/27/2020 Provider: Danish Hartman MD Diagnosis: take 1-2 tablets every 4-6hrs for post op pain Last Documented On 1 3:35PM By Danish Hartman ; [facility], [facility] oxyCODONE HCl 5 MG Oral Tablet 12/15/2020 - 12/19/2020 Provider: Danish Hartman MD Diagnosis: 1-2 po q 4-6h take 1-2 table ts every 4-6hrs for post op pain Last Documented On 1 4:37PM By Danish Hartman ; [facility] Cefadroxil 500 MG Oral Capsule 12/15/2020 - 12/18/2020 Provider: Danish Hartman MD Diagnosis: twice a day Last Documented On 1 4:26PM By Danish Hartman ; [facility] Medications Administered Includes: Administered Medications from this encounter No Administered Medications Recorded Vital Signs Includes: Vital Signs from this encounter Vital Name 04/20/2021 10:21A Blood Pressure Sitting (mmHg) 124/80 Pulse Rate-Sitting (bpm) 84 Height (in) 69 Weight (lb) 213.5 Body Mass Index (kg/m2) 31.5 Body Surface Area (m2) 2.1 Note: MG Last Documented: On 04/20/2021 10:24A M ; [facility] Results Includes: Results discussed during [...] Documented On 2 10:06AM ; [facility] Caffeine use 01/12/2021 Last Documented On 2 10:06AM ; [facility] No recent change in diet 01/12/2021 Last Documented On 2 10:06AM ; ARLYN AMBROSIO Not a current smoker. 01/12/2021 Last Documented On 2 10:06AM ; [facility] Not exercising regularly 01/12/2021 Last Documented On 2 10:06AM ; [facility] Not using drugs 01/12/2021 Last Documented On 2 10:06AM ; [facility] Non-smoker 10/06/2020 Last Documented On 2 10:06AM ; [facility], [facility] No tobacco use 10/08/2018 Last Documented On 2 10:06AM ; [facility] Smoking status : Never smoker 10/08/2018 Last Documented On 2 10:06AM ; [facility] Procedures and Surgical History Includes: Procedures from this encounter Procedures Code Diagnosis Performing Provider Service L ocation Service Date use of tobacco assessment performed 1000F Last Documented On 2 10:06AM ; [facility], [facility] an X-ray was performed 49541 Last Documented On 2 10:06AM ; [facility], [facility] an MRI was performed 22716 Last Documented On 2 10:06AM ; [facility] History of EKG Last Documented On 2 10:06AM ; [facility] History of Blood Tests Last Documented On 2 10:06AM ; [facility], [facility] Medical History Includes: Medical History addressed during this encounter Description Last Updated Anemia 01/12/2021 Last Documented On 2 10:06AM ; [facility], [facility] Arthritis 01/12/2021 Last Documented On 2 10:06AM ; [facility] History of diabetes mellitus 01/12/2021 Last Documented On 2 10:06AM ; [facility] History of diverticulitis of colon 01/12 Last Documented On 2 10:06AM ; [facility] History of Gallbladder 01/12/2021 Last Documented On 2 10:06AM ; [facility], [facility] History of heart disease 01/12/2021 Last Documented On 2 10:06AM ; [facility], [facility] History of Rheumatology 01/12/2021 Last Documented On 2 10:06AM ; [facility], [facility] Hypertension 01/12/2021 Last Documented On 2 10:06AM ; [facility], [facility] Past Surgical History: RTC RT ~PKR LT ~H ernia 01/12/2021 Last Documented On 2 10:06AM ; [facility], [facility] Sleep Apnea 01/12/2021 Last Documented On 2 10:06AM ; [facility], [facility] Total knee arthroplasty 01/12/2021 Last Documented On 2 10:06AM ; [facility], [facility] Recent immunization for flu 2019 021 Last Documented On 2 10:06AM ; [facility], [facility] Recent immunization for pneumococcal pne umonia 201901/12/2021 Last Documented On 2 10:06AM ; [facility], [facility] Family History Includes: Family History addressed during this encounter Description Last Updated Diabetes mellitus 01/12/2021 Last Documented On 2 10:06AM ; [facility], [facility] Family history of cancer 01/12/2021 Last Documented On 2 10:06AM ; [facility] Family history of heart disease 01/13/20 21 Last Documented On 2 10:06AM ; [facility] Family history of hypertension 1 Last Documented On 2 10:06AM ; [facility] Family history of osteoporosis 1 Last Documented On 2 10:06AM ; [facility], [facility] Review of Systems Includes: Review [...] Active Last Documented On 2 1:07PM ; [facility], [facility] Encounters Encounter Provider Location Date Check-In Time Check- Out Time Diagnosis Post Op Danish Hartman MD [facility] 2 9:50AM 10:50AM Insurance Includes: Active Insurance Policies Plan Name Member ID Group # Subscriber Relationship Effect jim Dates 1 - [facility] [id number] Lincoln Alford III Self Clinical Notes Includes: Clinical Notes from this encounter No Clinical Notes Recorded
--- OUTSIDE RECORDS SUMMARY | 2025-01-16 15:01 | XMS_ITS | Clinical Summary ---
Author Organization [facility] Address [address] [place] [address] Phone Care Team Providers Care Zinc Plating Machine Operator Name Role Phone Raj VERGARA Anthonybelia Primary Care Provider [phone] Minnie VILLALOBOS, Danish Maurer [phone] Reason for Visit and Chief Complaint The Chief Complaint is: RT TKA Problems Includes: Problems addressed during this encounter and other active Problems All Visits Onset Date Resolved Date Provider Condition S tatus Joint Pain Right Knee 10/06/2020 Danish Ocasio Active Last Documented On 1 3:35PM ; [facility] Joint Pain Shoulder Left 10/08/2018 Ravi Kruse MD Active Last Documented On 9 8:56AM ; [facility], [facility] Plan of Treatment patient was seen by myself Baldemar Mota PA-C. Patient will follow up right now as needed he was told to follow-up every 3 to 4 years after this just for an x-ray to see how the implant looks on x-ray. - Last Documented On 01/05/2022 1:30PM ; [facility] Instructions to patient Lose weight Last Documented On 2 1:04PM ; [facility], [facility] Assessments Includes: Assessments from this encounter Findings Right total knee replacement December 23, 2020 - Last Documented On 01/05/2022 1:30PM ; [facility] Instructions Includes: Instructions from this encounter Instructions to patient Lose weight Last Documented On 2 1:04PM ; [facility] Medical Equipment - Implanted Devices Includes: Current Devices No Medical Equipment Recorded Medications Includes: Medications discussed during this encounter and other current Medications Current Medications (continue as prescribed) Plavix 75 MG Oral Tablet 03/29/2021 Provider: Diagnosis: Last Documented On 2 10:05AM By Nataliia Lockwood ; [facility] Actos 15 MG Oral Tablet 01/12/2021 Provider: Diagnosis: Last Documented On 1 1:52PM By Aileen [facility] Past Medications on file oxyCODONE HCl 5 MG Oral Tablet 03/12/2021 - 03/16/2021 Provider: Danish Hartman MD Diagnosis: 1 tablet by mouth every 4 hours for post op pain Last Documented On 1 11:56AM By Danish Hartman ; [facility], [facility] Ultram 50 MG Oral Tablet 03/12/2021 - 03/22/2021 Provi cleo: Danish Hartman MD Diagnosis: 1-2 tablets by mouth every 4-6hrs for post op pa in Last Documented On 1 12:11PM By Danish Hartman ; [facility] oxyCODONE HCl 5 MG Oral Tablet 01/14/2021 - 01/19/2021 Provider: Danish Hartman MD Diagnosis: take 1-2 tablets every 4-6hrs for post op pain Last Documented On 1 4:49PM By Danish Dubois [facility] oxyCODONE HCl 5 MG Oral Tablet 01/12/2021 - 01/17/2021 Provider: Danish Hartman MD Diagnosis: take 1-2 tablets every 4-6hrs for post op pain Last Documented On 1 10:46AM By Danish Dubois [facility] Losartan Potassium 50 MG Oral Tablet 01/12/2021 - 03/27 Provider: Diagnosis: Last Documented On 1 1:51PM By Aileen [facility] Mobic 15 MG Oral Tablet 12/22/2020 - 01/21/2021 Provid er: Danish Hartman MD Diagnosis: 1 every bedtime Last Documented On 1 3:29PM By Danish [facility] Acetaminophen 500 MG Oral Tablet 12/22/2020 - 01/22/20 Provider: Danish Hartman MD Diagnosis: take 2 tablets 3 times daily, AFTER SURGERY Last Documented On 1 3:28PM By Danish Hartman ; [facility], [facility] Colace 100 MG Oral Capsule 12/22/2020 - 01/21/2021 Pro vider: Danish Hartman MD Diagnosis: 1-2 tablets daily, as needed, AFTER SURGERY Last Documented On 1 3:28PM By Danish Hartman ; [facility], [facility] Doxycycline Hyclate 100 MG O ral Capsule 12/22/2020 - 12/25/2020 Provider: Danish Hartman MD Diagnosis: twice a day Last Documented On 1 3:27PM By Danish Hartman ; [facility], [facility] Aspirin Adult Low Strength 8 1 MG Oral Tablet Delayed Release 12/22/2020 - 02/05/2021 Provider: Danish Hartman MD Diagnosis: twice a day Last Documented On 1 3:26PM By Danish Hartman ; [facility], [facility] Zofran 4 MG Oral Tablet 12/22/2020 - 01/21/2021 Provid er: Danish Hartman MD Diagnosis: 1 po q 6 to 8 hrs prn pain t alex 1 tablet every 6-8hrs for nausea, AFTER SURGERY Last Documented On 1 3:26PM By Danish Hartman ; [facility], [facility] Ultram 50 MG Oral Tablet 12/22/2020 - 01/01/2021 Provi cleo: Danish Hartman MD Diagnosis: 1-2 p o q 6-8h take 1-2 tabl ets every 6-8 hours for breakthrough post op pain Last Documented On 1 3:35PM By Danish Hartman ; [facility], [facility] oxyCODONE HCl 5 MG Oral Tablet 12/22/2020 - 12/27/2020 Provider: Danish Hartman MD Diagnosis: take 1-2 tablets every 4-6hrs for post op pain Last Documented On 1 3:35PM By Danish Hartman ; [facility], [facility] oxyCODONE HCl 5 MG Oral Tablet 12/15/2020 [...] 01/12/2021 Last Documented On 2 1:03PM ; [facility] Not exercising regularly 01/12/2021 Last Documented On 2 1:03PM ; [facility] Not using drugs 01/12/2021 Last Documented On 2 1:03PM ; [facility] Non-smoker 10/06/2020 Last Documented On 2 1:03PM ; [facility] No tobacco use 10/08/2018 Last Documented On 2 1:03PM ; [facility] Smoking status : Never smoker 10/08/2018 Last Documented On 2 1:03PM ; [facility] Procedures and Surgical History Includes: Procedures from this encounter Procedures Code Diagnosis Performing Provider Service L ocation Service Date use of tobacco assessment performed 1000F Last Documented On 2 1:04PM ; [facility] Medical History Includes: Medical History addressed during this encounter Description Last Updated Anemia 01/12/2021 Last Documented On 2 1:03PM ; [facility] Arthritis 01/12/2021 Last Documented On 2 1:03PM ; [facility] History of diabetes mellitus 01/12/2021 Last Documented On 2 1:03PM ; [facility] History of diverticulitis of colon 01/12 Last Documented On 2 1:03PM ; [facility] History of Gallbladder 01/12/2021 Last Documented On 2 1:03PM ; [facility] History of heart disease 01/12/2021 Last Documented On 2 1:03PM ; [facility] History of Rheumatology 01/12/2021 Last Documented On 2 1:03PM ; [facility] Hypertension 01/12/2021 Last Documented On 2 1:03PM ; [facility] Past Surgical History: RTC RT ~PKR LT ~H ernia 01/12/2021 Last Documented On 2 1:03PM ; [facility] Sleep Apnea 01/12/2021 Last Documented On 2 1:03PM ; [facility], [facility] Total knee arthroplasty 01/12/2021 Last Documented On 2 1:03PM ; [facility], [facility] Recent immunization for flu 2019 021 Last Documented On 2 1:03PM ; [facility], [facility] Recent immunization for pneumococcal pne umonia 2020 01/12/2021 Last Documented On 2 1:03PM ; [facility], [facility] Family History Includes: Family History addressed during this encounter Description Last Updated Diabetes mellitus 01/12/2021 Last Documented On 2 1:03PM ; [facility], [facility] Family history of cancer 01/12/2021 Last Documented On 2 1:03PM ; [facility], [facility] Family history of heart disease 01/13/20 21 Last Documented On 2 1:03PM ; [facility], [facility] Family history of hypertension 1 Last Documented On 2 1:03PM ; [facility], [facility] Family history of osteoporosis 1 Last Documented On 2 1:03PM ; [facility], [facility] Review of Systems Includes: Review of Systems [...] Active Last Documented On 2 1:07PM ; [facility], [facility] Encounters Encounter Provider Location Date Check-In Time Check- Out Time Diagnosis Follow Up Baldemar Mota PA-C [facility] 2 12:52PM 1:30PM Insurance Includes: Active Insurance Policies Plan Name Member ID Group # Subscriber Relationship Effect jim Dates 1 - [facility] [id number] [place] Alford III Self Clinical Notes Includes: Clinical Notes from this encounter No Clinical Notes Recorded
--- OUTSIDE RECORDS SUMMARY | 2025-01-16 15:02 | XMS_ITS | Encounter Summary ---
Author Organization [facility] ([place], [place], [place], [place]) Address [address] [place] [address] Care Team Providers Care Sole Rounding Machine Operator Name Role Phone Unavailable Primary Care Provider Unavailabl e Encounter Details Date Type Department Care Team (Late st Contact Info) Description 12/23/2020 Transcribed Document [facility] [place] [facility] [address] [place] [address] ProviderJaime MD [address], [place] [id number] Social History Tobacco Use Types Packs/Day Years [...] III /Sex: 1950 Male Med Rec #: [id number] Physician: KAYLA ZIMMERMAN JR, JR, MD-ORT Financial #: [id number] Pt. Type: O Room/Bed: Admit/Disch: 12/23/20 04:16:00 - Institution: [facility] OR PACU Case Times Entry 1 In PACU I 12/23/20 09:56:00 Ready for PACU 12/23/20 11:12:00 Discharge Discharge from PACU 12/23/20 11:12:00 I Last Modified By: Janene Helm RN 12/23/20 11:16:01 [facility] OR PACU Case Times Audit 12/23/20 11:16:01 Mobile Practice Lead: KINZA Modifier: KINZA 1 <*> Ready for PACU Discharge 12/23/20 10:30:00 1 <+> Discharge from PACU I Finalized By: Janene Helm RN Document Signatures Signed By: Janene Helm RN 12/23/20 11:16 documented in this encounter Plan of Treatment Not on file documented as of this encounter Visit Diagnoses Not on filedocumented in this encounter
--- OUTSIDE RECORDS SUMMARY | 2025-01-16 15:02 | XMS_ITS | Encounter Summary ---
Author Organization [employer] ([place], [place], [place], [place]) Address [address] [place] [id number] Care Team Providers Care Tool Die Maker Name Role Phone Unavailable Primary Care Provider Unavailabl e Encounter Details Date Type Department Care Team (Late st Contact Info) Description 12/23/2020 Transcribed Document [facility] [place] [address] [place] [address] ProviderJaime MD [address], [place] [phone] Social History Tobacco Use Types Packs/Day Years [...] knee 12/23/2020 12:00 Atherosclerotic heart disease of [place] coronary artery without angina pectoris 12/23/2020 [...]
--- OUTSIDE RECORDS SUMMARY | 2025-01-16 15:02 | XMS_ITS | Encounter Summary ---
Author Organization [employer] ([place], [place], [place], [place]) Address [address] [place] [address] Care Team Providers Care Reuse Technician Name Role Phone Unavailable Primary Care Provider Unavailabl e Encounter Details Date Type Department Care Team (Late st Contact Info) Description 12/23/2020 Transcribed Document [facility] Family Medicine [facility] [place] [address] ProviderJaime MD [address] [place] [address] Social History Tobacco Use Types Packs/Day [...] 12/23/2020 7:23 EDT Electronically signed by Lakesha, [facility] Conversion Hunting Sales Leader Cerner at 07/09/2022 10:51 AM CDT documented in this encounter Plan of Treatment Not on file documented as of this encounter Visit Diagnoses Not on filedocumented in this encounter
--- OUTSIDE RECORDS SUMMARY | 2025-01-16 15:02 | XMS_ITS | Encounter Summary ---
Author Organization [employer] ([place], [place], [place], [place]) Address [address] [place] [address] Care Team Providers Care Certified Orthotist/Pedorthist Name Role Phone Unavailable Primary Care Provider Unavailabl e Encounter Details Date Type Department Care Team (Late st Contact Info) Description 12/23/2020 Transcribed Document [facility] Family Medicine [address] [place] [address] ProviderJaime MD [address] [place] [address] Social History Tobacco Use Types [...] Source : Measured Height Entry Format : [place] Height, Feet : 5 ft(Converted to: 152 cm, 60 Inch) Height, Inches : 9 Inch(Converted to: 0 ft 9 Inch, 22.86 cm) Clinical Height : 175.26 cm Weight Source : Standing scale Weight Entry Format : [place] Clinical Dosing Weight : 96.36 kg Weight, Pounds : 212 lb Body Surface Area (BSA) : 2.12 m2 Body Mass Index : 31.4 kg/m2 (HI) [place] Body Weight : 70 kg Georgie Boyce [...] Georgie Boyce RN - 12/23/2020 6:56 EDT [place] Suicide Severity Rating Scale (C-SSRS) CSSRS Past [...] #2 Relationship : . Primary Language : Polish Preferred Communication Mode : Verbal Communication Barrier : None Tripe Cooker Needed : No Georgie Boyce RN - [...]
--- OUTSIDE RECORDS SUMMARY | 2025-01-16 15:02 | XMS_ITS | Encounter Summary ---
Author Organization [employer] ([place], [place], [place], [place]) Address [address] [place] [address] Care Team Providers Care Paper Cone Drying Machine Operator Name Role Phone Unavailable Primary Care Provider Unavailabl e Encounter Details Date Type Department Care Team (Late st Contact Info) Description 12/23/2020 Transcribed Document [facility] [place] Family Medicine [address] [place] [address] ProviderJaime MD [address] [place] [address] Social History Tobacco Use Types Packs/Day Years Used Date Smoking Tobacco: Never Assessed Sex and Gender Information Value Date Recorded Sex Assigned at Not on file Legal Sex Male 5:28 PM CDT Gender Identity Not on file Sexual Orientation Not on file documented as of this encounter Miscellaneous Notes * Cerner Conversion Note - Jaime ProviderMD - 12/23/2020 1:22 [place] [address] AYLEEN BLACK III :1950 Visit Time:12/23/2020 What [...] 6 days after surgery Community Services: [facility] [place] [facility] Home Health Services: [facility] [...] When 12/29/2020 09:45 AM EDT Where: [address] [facility] [address] [place] [address] Medications What How Much When Instructions Next [...] or 4 frozen water bottles in the [facility]. Continue to use Incentive Spirometer 10 [...] Barley. Bulgur wheat. Millet. Bran muffins. Popcorn. [place] wafer crackers. Vegetables Sweet potatoes. Spinach. Kale. Artichokes. Cabbage. Broccoli. Green peas. Carrots. Squash. Fruits Berries. Pears. Apples. Oranges. Avocados. Prunes and raisins. Dried figs. Meats and Other Protein Sources [place], kidney, amador, and soy beans. Split peas. [...] 1 katy has 11 g of protein. [place] seeds ??? 1 oz has 5.5 g [...] the floor. Place frequently used items in ynhc-br-mogbf places Keep electrical cables out of the [...] ? Using the bathroom. ? Using household chalk tester or toxic chemicals. ? Touching or taking [...] activities are safe for you. ??? Take pkzg-nly-xnyxayk and prescription medicines only as told by [...] provider. Document Revised: 03/16/2018 Document Reviewed: 10/27/2017 [facility] Patient Education ?? 2020 ArthroCAD. acetaminophen (oral) (a SEET a MIN oh fen) Actamin, Anacin AF, Aurophen, Bromo [place], Children's Tylenol, Mapap, M-Pap, Pharbetol, Silapap Childrens, [...] is a pain reliever and a fever gaming commissioner. There are many brands and forms of [...] may report side effects to FDA at 9-880-WYO-5490. What other drugs will affect acetaminophen? Other drugs may affect acetaminophen, including prescription and jare-kgq-mhanibw medicines, vitamins, and herbal products. Tell your [...] to ensure that the information provided by [employer]. ('Multum') is accurate, up-to-date, and complete, but no guarantee is made to that effect. Drug information contained herein may be time sensitive. [employer] information has been compiled for use by healthcare practitioners and consumers in the [place] and therefore [employer] does not warrant that uses outside of the [place] are appropriate, unless specifically indicated otherwise. [employer]'s drug information does not endorse drugs, diagnose patients or recommend therapy. [facility] drug information is an informational resource designed [...] appropriate for any given patient. [facility] does not assume any responsibility for any aspect of healthcare administered with the aid of information [facility] provides. The information contained herein is not intended to cover all possible uses, directions, precautions, warnings, drug interactions, allergic reactions, or adverse effects. If you have questions about the drugs you are taking, check with your doctor, nurse or pharmacist. Copyright 1750-3268 [facility]. Version: 21.. Revision Date: 11/01/2019. aspirin (oral) ( pir in) Arthritis Pain, Aspi-Cor, Aspir-Low, Nusrat Plus, Durlaza, Ecotrin, Miniprin, Vazalore What is the most important information I should know about aspirin? Aspirin can cause Tonia's syndrome, a serious and sometimes fatal condition in children. What is aspirin? Aspirin is a salicylate (eq-VIQ-bc-ate) that is used to treat pain, and [...] may report side effects to FDA at 3-933-OGS-7557. What other drugs will affect aspirin? Ask [...] drugs may affect aspirin, including prescription and wrie-bko-iobjxye medicines, vitamins, and herbal products. Not all [...] to ensure that the information provided by [employer]. ('Multum') is accurate, up-to-date, and complete, but no guarantee is made to that effect. Drug information contained herein may be time sensitive. [employer] information has been compiled for use by healthcare practitioners and consumers in the [place] and therefore [employer] does not warrant that uses outside of the [place] are appropriate, unless specifically indicated otherwise. [employer] drug information does not endorse drugs, diagnose patients or recommend therapy. [employer] drug information is an informational resource designed [...] effective or appropriate for any given patient. [employer] does not assume any responsibility for any aspect of healthcare administered with the aid of information [facility] provides. The information contained herein is not intended to cover all possible uses, directions, precautions, warnings, drug interactions, allergic reactions, or adverse effects. If you have questions about the drugs you are taking, check with your doctor, nurse or pharmacist. Copyright 4918-4943 [employer]. Version: 16.03. Revision Date: 09/21/2020. oxycodone (ox [...] The extended-release form of oxycodone is for ldgllw-cqw-fjais treatment of pain and should not be [...] against the law. Stop taking all other rwwcwj-pbb-lnynb opioid pain medicines when you start taking [...] may report side effects to FDA at 1-993-AHI-5102. What other drugs will affect oxycodone? You [...] may affect oxycodone. This includes prescription and jxda-egp-vcgiexq medicines, vitamins, and herbal products. Not all [...] to ensure that the information provided by [employer]. ('Multum') is accurate, up-to-date, and complete, but no guarantee is made to that effect. Drug information contained herein may be time sensitive. [employer] information has been compiled for use by healthcare practitioners and consumers in the [place] and therefore [employer] does not warrant that uses outside of the [place] are appropriate, unless specifically indicated otherwise. [employer]'s drug information does not endorse drugs, diagnose patients or recommend therapy. [employer] drug information is an informational resource designed [...] effective or appropriate for any given patient. [employer] does not assume any responsibility for any aspect of healthcare administered with the aid of information [employer] provides. The information contained herein is not intended to cover all possible uses, directions, precautions, warnings, drug interactions, allergic reactions, or adverse effects. If you have questions about the drugs you are taking, check with your doctor, nurse or pharmacist. Copyright 7015-8578 [facility] [employer]. Version: 14.02. Revision Date: 04/23/2020. docusate (oral/rectal) [...] may report side effects to FDA at 7-005-PLD-3103. What other drugs will affect docusate? Other drugs may affect docusate, including prescription and hhvx-zai-axzhkzt medicines, vitamins, and herbal products. Tell your [...] to ensure that the information provided by [employer]. ('Multum') is accurate, up-to-date, and complete, but no guarantee is made to that effect. Drug information contained herein may be time sensitive. [employer] information has been compiled for use by healthcare practitioners and consumers in the [place] and therefore [employer] does not warrant that uses outside of the [place] are appropriate, unless specifically indicated otherwise. [employer]'s drug information does not endorse drugs, diagnose patients or recommend therapy. [employer] drug information is an informational resource designed [...] effective or appropriate for any given patient. [employer] does not assume any responsibility for any aspect of healthcare administered with the aid of information [employer] provides. The information contained herein is not intended to cover all possible uses, directions, precautions, warnings, drug interactions, allergic reactions, or adverse effects. If you have questions about the drugs you are taking, check with your doctor, nurse or pharmacist. Copyright 1081-6268 [employer]. Version: 4.01. Revision Date: 10/01/2018. cephalexin (sef [...] may report side effects to FDA at 2-229-GDF-1747. What other drugs will affect cephalexin? Tell your doctor about all your other medicines, especially: ?? metformin; or ?? probenecid. This list is not complete. Other drugs may affect cephalexin, including prescription and diff-dod-ksylgbg medicines, vitamins, and herbal products. Not all [...] to ensure that the information provided by [employer]. ('Multum') is accurate, up-to-date, and complete, but no guarantee is made to that effect. Drug information contained herein may be time sensitive. [employer] information has been compiled for use by healthcare practitioners and consumers in the [place] and therefore [employer] does not warrant that uses outside of the [place] are appropriate, unless specifically indicated otherwise. [employer] drug information does not endorse drugs, diagnose patients or recommend therapy. [employer] drug information is an informational resource designed [...] effective or appropriate for any given patient. [employer] does not assume any responsibility for any aspect of healthcare administered with the aid of information [employer] provides. The information contained herein is not intended to cover all possible uses, directions, precautions, warnings, drug interactions, allergic reactions, or adverse effects. If you have questions about the drugs you are taking, check with your doctor, nurse or pharmacist. Copyright 8784-4849 [employer]. Version: 10.03. Revision Date: 03/30/2020. tramadol (TRAM [...]
--- OUTSIDE RECORDS SUMMARY | 2025-01-16 15:02 | XMS_ITS | Encounter Summary ---
Author Organization [employer] ([place], [place], [place], [place]) Address [address] [place] [address] Care Team Providers Care Shirt Hemmer Name Role Phone Unavailable Primary Care Provider Unavailabl e Encounter Details Date Type Department Care Team (Late st Contact Info) Description 12/23/2020 Transcribed Document [facility] Family [place] [address] ProviderJaime MD [address] [place] [id number] Social History Tobacco Use Types Packs/Day Years [...] EDT Chloraseptic Menthol 1.4% topical spray: 5 [place], Oral, [place], Q2H, PRN for Sore Throat, Routine, Start [...] Oral, Q4H phenol 1.4% throat spray 5 [place], Oral, Q2H promethazine 25 mg tab 12.5 [...] HTN, CAD and cancer Procedure history: Cholecystectomy (64073497). Hernia ([id number]). Rotator cuff right (41834630). Knee left partial (675131531). right upper thigh boil. lymph node drained from right arm pit. Colonoscopy (471253048). EGD - Esophagogastroduodenoscopy (8014830730). heart cath. cardiac stent. Social History Patient [...] swelling, No deformity, Normal gait. Integumentary: Warm, [place], Intact, No pallor, No rash, WOUND STABLE. [...] then you may give Tylenol 650 mg PO/AK x 1. If no response in 2 [...]
[2025-01-16 20:19] LABS: Chloride 104 mmol/L (98-107)
[2025-01-16 20:20] LABS: Potassium 4.7 mmoL/L (3.5-5.1); Sodium 136 mmol/L (136-145)
[2025-01-16 20:23] LABS: Anion Gap 16.7 mEq/L (5-15); Blood Urea Nitrogen 18 mg/dl (9-20); Calcium 8.6 mg/dl (8.4-10.2); Carbon Dioxide 20 mmol/L (22.0-30.0); Creatinine,Serum 1.30 mg/dl (0.66-1.25); Estimated Glomerular Filt Rate 54 ml/min (>60); GFR (African American) 66 ML/MIN (>60); Glucose 132 mg/dl (74-100)
== END 2025-01-16 23:59 | disposition home or self-care (01) ==
LOC: LAB 14:23
PROVIDERS: PCP Family Medicine; Visit Provider Physician Assistant
DX: I50.30 Unspecified diastolic (congestive) heart failure (principal)
CPT/HCPCS: 36415; 80048

== ENCOUNTER 2025-01-20 09:59 | Outpatient (CLI) | payer MEDICARE, SELFPAY ==
--- OUTSIDE RECORDS SUMMARY | 2024-12-13 11:15 | XMS_ITS | Encounter Summary ---
[facility] Address [address] [place] [address] Care Team Providers Care Postpartum Nurse Name Role Phone Columba Rodríguez APRN Primary Care Provider [phone] Reason for Visit * Reason Comments Rheumatoid Arthritis Follow up Osteoarthritis Follow up Encounter Details Date Type Department Care Team (Latest Contact Info) Description 12/13/2024 11:15 AM EDT Office Visit [facility] RHEUMATOLOGY [address] [address] Cash Khanna DO [address] [address] Seronegative rheumatoid arthritis (Primary Dx); Primary osteoarthritis [...] sent through Care Everywhere. * Rheumatoid Arthritis ([place]itcair[place] Islander) documented in this encounter Progress Notes * Csah Khanna DO - 12/13/2024 11:15 AM EDTAssociated [...] , Rfl: Cholecalciferol (Vitamin D3) 1.25 MG (91720 UT) tablet, Take 1 tablet by mouth [...] ointment, , Disp: , Rfl: nystatin (MYCOSTATIN) 663530 UNIT/GM cream, , Disp: , Rfl: omeprazole [...] 4 months (around 04/14/2025). Cash Khanna DO [facility] Rheumatology of [place] documented in this encounter Plan of Treatment Upcoming Encounters Date Type Department Care Team (Late st Contact Info) Description 06/16/2025 11:15 AM EDT Office Visit [facility] RHEUMATOLOGY [address] [address] Cash Khanna DO [address] [place] [address] documented as of this encounter Procedures Procedure [...] & Differential (12/13/2024 12:39 PM EDT) Pathologist [facility] WBC 7.6 3.4 - 10.8 x10E3/uL [facility] [...] 12:3 9 PM EDT 12/13/2024 Narrative [facility] (AMBULATORY) - 12/17/2024 8:08 AM EDT Performed at: [address] [id number] Soil Science Technical Officer: Matthew Clark PhD, Phone: [phone] Patient Fasting: N Cash Khanna DO LAB BLOOD ORDERABLES F inal Result [facility] (AMBULATORY) [address] [place] [address], [facility] [address] [place] [address], * C-reactive Protein (12/13/2024 12:39 PM EDT) [facility] C-Reactive Protein 2 0 - 10 mg/L [facility] Blood 12/13/2024 12:3 9 PM EDT 12/13/2024 Narrative [facility] (AMBULATORY) - 12/17/2024 8:08 AM EDT Performed at: - [address] [id number] Soil Science Technical Officer: Matthew Clark PhD, Phone: [phone] Patient Fasting: N Cash Khanna DO LAB BLOOD ORDERABLES F inal Result [facility] ([facility]UL[facility]ORY) [address] [place] [address], [place] [phone] [facility] [address] [place] [address], [place] [phone] * Urine Drug Screen - Urine, Clean Catch (12/13/2024 12:39 PM EDT) Pathologist [facility] Amphetamine, Urine Qual Negative Cutoff=10 00 ng/mL [...] is inconsistent with an expected outcome. Email: [email or web address] Urine Urine specimen obtained by clean catch procedure / Unknown 12/13/2024 12:39 PM EDT 12/13/2024 Narrative [facility] ([facility]ORY) - 12/17/2024 8:08 AM EDT Performed at: 01 - [facility] [address] [place], [place] [id number] Soil Science Technical Officer: Kenroy Mills PhD, Phone: [phone] Patient Fasting: N [facility] DO URINE ORDERABLES Final Result Performing Organization Address [facility] Co de Phone Number [facility] (AMBULATORY) [address] [place] [address], [facility] [address] [place] [address], * Sedimentation Rate (12/13/2024 12:39 PM EDT) Pathologist [facility] Sed Rate 29 0 - 30 mm/hr [facility] Blood 12/13/2024 12:3 9 PM EDT 12/13/2024 Narrative [facility] (AMBULATORY) - 12/17/2024 8:08 AM EDT Performed at: 02 - [facility] [address] [place], [place] [id number] Soil Science Technical Officer: Matthew Clark PhD, Phone: [phone] Patient Fasting: N [facility] Baldemar Khanna LAB BLOOD ORDERABLES F inal Result Performing Organization Address [facility] Co de Phone Number [facility] [address] [place] [address], [facility] [address] [place] [address], [place] [phone] * (ABNORMAL) Comprehensive Metabolic Panel (12/13/2024 12:39 [...] AM EDT Performed at: 02 - [address] [id number] Soil Science Technical Officer: Matthew Clark PhD, Phone: [phone] Patient Fasting: N Cash Khanna DO LAB BLOOD ORDERABLES F inal Result [facility] (AMBULATORY) [address] [place] [address], [facility] [address] [place] [address], documented in this encounter Visit Diagnoses Diagnosis Seronegative rheumatoid arthritis- Primary Rheumatoid arthritis Primary osteoarthritis involving multiple joints Encounter for medication monitoring Encounter for therapeutic drug monitoring Positive QuantiFERON-TB Gold test documented in this encounter Care Teams Postpartum Nurse Relationship Specialty Start Date End Date Columba Rodríguez APRN [address] [place] [address] PCP - General Family Medicine 11/10/23 documented as of this encounter
--- OUTSIDE RECORDS SUMMARY | 2025-01-20 10:08 | XMS_ITS | Clinical Summary ---
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 R76.12 (ICD-10-CM ) 09/18 Active 09/18 Imelda Bunny 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 gamma interferon antigen response without active tuberculosis Edema, limb 601511164 (SNOMED CT) 09/21 Resolved 09/21 Imelda Hollis Edema of extremity Right Leg Edema, limb 118914437 (SNOMED CT) 09/21 Removed 09/21 Jer Zhang [...] DAY 2 THROUGH DAY 5 12/19 azithromycin 86557917770 Cinda Rolando BENZONATATE 100 MG CAPS Take 1 capsule by mouth three times a day as needed 12/19 BENZONATATE Cinda Fu TRIAZOLAM 0.25 MG TABS Take 1 tablet by mouth 12/19 triazolam 22029690762 Cinda Fu LORAZEPAM 1 MG TABS Take 1 tablet 12/19 lorazepam 65169932192 Cinda Fu LEVOFLOXACIN 750 MG TABS Take 1 tablet by mouth once a day 12/19 levofloxacin 14857166033 Cinda Rolando LOSARTAN POTASSIUM 50 MG TABS one tab oral daily 12/19 losartan 71867354169 Cinda Rolando NYSTATIN 098287 UNIT/GM OINT Apply to skin once a day 12/19 nystatin 29144587459 Cinda Fu RIFAMPIN 300 MG CAPS Take 2 by mouth once a day 12/19 rifampin 48682373678 Cinad Rolando CYCLOBENZAPRINE HCL 5 MG TABS one tab oral daily 12/19 cyclobenzaprine 25642184250 Cinda Fu ISONIAZID 300 MG TABS Take 1 tablet by mouth once a day 12/19 isoniazid 28747656370 Cinda PROMETHAZINE-CODEI NE 6.25-10 MG/5ML SYRP Take 5 ml by mouth twice a day 12/19 promethazine-code ine 92478957232 Cinda Fu DICYCLOMINE HCL 10 MG CAPS 1 cap oral twice a day 12/19 dicyclomine 42090704103 Cinda Fu CLOPIDOGREL BISULFATE 75 MG TABS Take 1 tablet by mouth once a day 12/19 clopidogrel 34869257321 Cinda Marshall HYDROCOD POLST-CPM POLST ER 10-8 MG/5ML ORAL SUSPENSION EXTENDED RELEASE Take 1 teaspoon by mouth twice a day 12/19 HYDROCOD POLST-CPM POLST ER 10-8 MG/5ML ORAL SUSPENSION EXTENDED RELEASE Cinda Marshall PLAVIX 75 MG TABS once a day clopidogrel 2108368 7190 Cinda Marshall TRIAZOLAM 0.25 MG TABS Take 1 tablet by mouth 09/24 triazolam 55076927291 Melvin Hartman ISONIAZID 300 MG TABS Take 1 tablet by mouth once a day 12/19 isoniazid 23966563117 Melvin Hartman CLOPIDOGREL BISULFATE 75 MG TABS Take 1 tablet by mouth once a day 12/19 clopidogrel 18929238326 Melvin Hartman LORAZEPAM 1 MG TABS Take 1 tablet 12/19 lorazepam 13633460025 Melvin Hartman NYSTATIN 561157 UNIT/GM OINT Apply to skin once a day 12/19 nystatin 63321252767 Melvin Hartman HYDROCOD POLST-CPM POLST ER 10-8 MG/5ML ORAL SUSPENSION EXTENDED RELEASE Take 1 teaspoon by mouth twice a day 12/19 HYDROCOD POLST-CPM POLST ER 10-8 MG/5ML ORAL SUSPENSION EXTENDED RELEASE Melvin Hartman AZITHROMYCIN 250 MG TABS TAKE 2 TABLETS BY MOUTH ON DAY 1 AND THEN TAKE 1 TABLET BY MOUTH ONCE A DAY ON DAY 2 THROUGH DAY 5 09/24 azithromycin 19004422899 Melvin Hartman RIFAMPIN 300 MG CAPS Take 2 by mouth once a day 09/24 rifampin 33564198187 Melvin Hartman PROMETHAZINE-CODEI NE 6.25-10 MG/5ML SYRP Take 5 ml by mouth twice a day 05/09 promethazine-code ine 66732155845 Melvin Hartman BENZONATATE 100 MG CAPS Take 1 capsule by mouth three times a day as needed 12/19 BENZONATATE Melvin Hartman LEVOFLOXACIN 750 MG TABS Take 1 tablet by mouth once a day 12/19 levofloxacin 65254400983 Melvin Hartman DICYCLOMINE HCL 10 MG CAPS 1 cap oral twice a day 09/24 dicyclomine 86913986051 Melvin Hartman SIMVASTATIN 20 MG TABS one tab oral daily simvastatin 18521817940 Melvin Hartman LOSARTAN POTASSIUM 50 MG TABS one tab oral daily 09/24 losartan 24332227012 Melvin Hartman CYCLOBENZAPRINE HCL 5 MG TABS one tab oral daily 09/24 cyclobenzaprine 94480506675 Melvin Hartman TRAMADOL HCL 50 MG TABS one tab every 6 hours prn tramadol 92820484773 Melvin Hartman METFORMIN HCL 500 MG TABS one tab oral twice a day metformin 24257638057 Melvin Hartman RIFAMPIN 300 MG CAPS take 2 po daily 09/24 RIFAMPIN 44014780780 Jer Zhang MD ISONIAZID 300 MG TABS Take 1 tablet by mouth daily 12/16 ISONIAZID 05115062957 Jer Zhang MD AZITHROMYCIN 250 MG TABS TAKE 2 TABLETS BY MOUTH ON DAY 1 AND THEN TAKE 1 TABLET BY MOUTH ONCE A DAY ON DAY 2 THROUGH DAY 5 09/24 AZITHROMYCIN 55156542802 Gerald Ocasio BENZONATATE 100 MG CAPS TAKE 1 CAPSULE BY MOUTH THREE TIMES DAILY FOR 10 DAYS NEEDED FOR COUGH 12/16 BENZONATATE 80421226728 Gerald Ocasio PROMETHAZINE-CODEI NE 6.25-10 MG/5ML SOLN TAKE 5 ML BY MOUTH TWICE DAILY 12/16 PROMETHAZINE-CODE INE 72201764287 Gerald Ocasio LEVOFLOXACIN 750 MG TABS TAKE 1 TABLET BY MOUTH ONCE DAILY FOR 8 DAYS 12/16 LEVOFLOXACIN 69433494089 Gerald Ocasio CLOPIDOGREL BISULFATE 75 MG TABS TAKE 1 TABLET BY MOUTH ONCE DAILY 12/16 CLOPIDOGREL BISULFATE 56272337529 Gerald D NYSTATIN 878150 UNIT/GM OINT APPLY OINTMENT TOPICALLY ONCE DAILY 12/16 NYSTATIN 28404811974 Gerald D HYDROCOD POLST-CPM POLST ER 10-8 MG/5ML ORAL SUSPENSION EXTENDED RELEASE TAKE 1 TEASPOONFUL (5 ML) BY MOUTH TWICE DAILY MAY CAUSE DROWSINESS 12/16 HYDROCOD POLST-CHLORPHEN POLST 09812512154 Gerald D TRIAZOLAM 0.25 MG TABS TAKE 1 TABLET BY MOUTH 30 MINUTES PRIOR TO MRI ON 09/24 TRIAZOLAM 38024155759 Gerald D LORAZEPAM 1 MG TABS TAKE 1 TABLET 2 HOURS BEFORE MRI FOR ANXIETY 12/16 LORAZEPAM 91460920690 Gerald D Medications Administered No information available. 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
--- OUTSIDE RECORDS SUMMARY | 2025-01-20 10:09 | XMS_ITS | Encounter Summary ---
[facility] Address [address] [place] [address] Care Team Providers Care Chief Merchandising Officer Name Role Phone Columba Rodríguez APRN Primary Care Provider [phone] Encounter Details Date Type Department Care Team (Late Contact Info) Description 12/17/2024 Results Follow-Up [facility] [address] [address] Cash Khanna DO [address] [phone] Social History Tobacco Use Types Packs/Day Years [...] Description 06/16/2025 11:15 AM EDT Office Visit [facility] [address] [address] Cash Khanna DO [address] [phone] documented as of this encounter Visit Diagnoses Not on filedocumented in this encounter Care Teams Chief Merchandising Officer Relationship Specialty Start Date End Date Columba Rodríguez APRN [address] [place] [address] PCP - General Family Medicine 11/10/23 documented as of this encounter
--- OUTSIDE RECORDS SUMMARY | 2025-01-20 10:09 | XMS_ITS | Encounter Summary ---
[facility] Address [address] [place] [id number] Care Team Providers Care Mud Mixer Name Role Phone Columba Rodríguez APRN Primary Care Provider [phone] Reason for Visit * Reason Comments Med Refill Encounter Details Date Type Department Care Team (Late Contact Info) Description 09/01/2023 Refill [facility] [address] [place] [address] Isai Tran MD [address] [place] [address] Social History Tobacco Use Types Packs/Day Years [...] Description 06/16/2025 11:15 AM EDT Office Visit [facility] [address] [place] [address] Cash Khanna DO [address] [facility] [address] [place], [place] [id number] documented as of this encounter Visit Diagnoses Not on filedocumented in this encounter Care Teams Mud Mixer Relationship Specialty Start Date End Date Columba Rodríguez APRN [address] [place] [phone] PCP - General Family Medicine 11/10/23 documented as of this encounter
--- OUTSIDE RECORDS SUMMARY | 2025-01-20 10:09 | XMS_ITS | Encounter Summary ---
[facility] Address [address] [place] [address] Care Team Providers Care Associate Account Executive Name Role Phone Columba Rodríguez APRN Primary Care Provider [phone] Encounter Details Date Type Department Care Team [...] Description 06/16/2025 11:15 AM EDT Office Visit [facility] [address] [phone] Cash Khanna DO [address] [address] documented as of this encounter Visit Diagnoses Not on filedocumented in this encounter Care Teams Associate Account Executive Relationship Specialty Start Date End Date Columba Rodríguez APRN [address] [place] [address] PCP - General Family Medicine 11/10/23 documented as of this encounter
--- OUTSIDE RECORDS SUMMARY | 2025-01-20 10:09 | XMS_ITS | Clinical Summary ---
Author Organization Healthcare Address [address] [place] [address] Care Team Providers Care Cabin Cleaner Name Role Phone Columba Rodríguez URSULA Primary Care Provider [phone] Shay Biggs MD Unavailable Allergies Active Allergy Reactions Criticality Noted Date [...] Type Department Care Team Description 11/04/2024 Telephone [facility] [address], [address] [place] [address] Baldemar Gibbs MD from Last [...] Wellness (AWV) 1950 UKY-Infant/Child/Adol SDOH Screenings 1950 LBF-BVEUO-24 Vaccine (#1) 1957 Diabetes: Dental Exam 1962 [...] Recently Relevant to Health Maintenance Results * [place] Hepatitis C Antibody (02/13/2019 6:35 PM EST) [place] Hepatitis C Ab NEGATIVE Reference Range: Negative SUNQUEST 02/13/2019 6:35 PM EST 02/13/2019 7:06 PM EST us Major Diaz MD LAB BLOOD ORDERABLES Final Re sult SUNQUEST from Last 3 Months or Most Recently Relevant to Health Maintenance Insurance Care Teams Cabin Cleaner Relationship Specialty Start Date End Date Columba Rodríguez APRN [address] [place] [address] PCP - General 11/04/24 Shay Biggs MD [address] [facility] [address] [place] [address] Referring Physician Cardiology 11/04/24
--- OUTSIDE RECORDS SUMMARY | 2025-01-20 10:09 | XMS_ITS | Clinical Summary ---
Author Organization [facility] Address [address] [place] [address] Care Team Providers Care Card Maker Name Role Phone Columba Rodríguez APRN Primary Care Provider [phone] Allergies Active Allergy Reactions Criticality Noted Date Comments Penicillins Unknown - Low Severi ty,Itching,Unknown (See Comments) Medium 08/08/2017 Medications Plavix 75 MG tablet PLAVIX 75 MG TABS Active vitamin B-12 (cyanocobalamin ) 100 MCG tablet Take 1 tablet by mouth Daily. Active losartan (COZAAR) 50 MG tablet 3 Active mupirocin (BACTROBAN) 2 % ointment 3 Active nystatin (MYCOSTATIN) 740382 UNIT/GM cream 3 Active pioglitazone (ACTOS) 30 [...] Daily. Active Cholecalciferol (Vitamin D3) 1.25 MG (84530 UT) tablet Take 1 tablet by mouth [...] Department Care Team Description 12/17/2024 Results Follow-Up [facility] [address] [phone] Cash Khanna DO 12/13/2024 11:15 AM EDT Office Visit [facility] [address] [address] Cash Khanna DO Seronegative rheumatoid arthritis (Primary Dx); Primary osteoarthritis involving multiple joints; Encounter for medication monitoring; Positive QuantiFERON-TB Gold test 12/13/2024 Travel from Last 3 Months Immunizations Immunization Administration Dates Next Due 31-influenza Vac Quardvalent Preservativ ,01/11/2018 Fluzone (or Fluarix & Flulaval for VFC) [...] Description 06/16/2025 11:15 AM EDT Office Visit [facility] [address] [place] [address] Cash Khanna DO [address] [facility] [address] [place] [address] Health Maintenance Due Date Last Done Comments [...] Catch (12/13/2024 12:39 PM EDT) Pathologist [facility] Amphetamine, Urine Qual Negative Cutoff=10 00 [...] is inconsistent with an expected outcome. Email: [email or web address] Urine Urine specimen obtained by clean catch procedure / Unknown 12/13/2024 12:39 PM EDT 12/13/2024 Narrative [facility] (AMBULATORY) - 12/17/2024 8:08 AM EDT Performed at: - [facility] [address] [facility], [place], [place] [id number] Hopper Filler: Kenroy Mills PhD, Phone: [phone] Patient Fasting: N [facility] URINE ORDERABLES Final Result Performing Organization Address [facility] Co de Phone Number [facility] (AMBULATORY) [address] [place] [address], [facility] [address] [place] [address], * Sedimentation Rate (12/13/2024 12:39 PM EDT) Pathologist [facility] Sed Rate 29 0 - 30 mm/hr [facility] Blood 12/13/2024 12:3 9 PM EDT 12/13/2024 Narrative [facility] (AMBULATORY) - 12/17/2024 8:08 AM EDT Performed at: - [facility] [address] [place] [id number] Hopper Filler: Matthew Clark PhD, Phone: [phone] Patient Fasting: N [facility] Baldemar [facility] LAB BLOOD ORDERABLES F inal Result Performing Organization Address [facility] Co de Phone Number [facility] [address] [place] [address], [facility] [address] [place] [id number], * (ABNORMAL) CBC & Differential (12/13/2024 12:39 PM EDT) Pathologist [facility] WBC 7.6 3.4 - 10.8 x10E3/uL [...] 8:08 AM EDT Performed at: 02 - [address] [id number] Hopper Filler: Matthew Clark PhD, Phone: [phone] Patient Fasting: N Cash Khanna DO LAB BLOOD ORDERABLES F inal Result [facility] ([facility]) [address] [place] [address], [facility] [address] [place] [address], * C-reactive Protein (12/13/2024 12:39 PM EDT) [facility] C-Reactive Protein 2 0 - 10 mg/L [facility] Blood 12/13/2024 12:3 9 PM EDT 12/13/2024 Narrative [facility] (AMBULATORY) - 12/17/2024 8:08 AM EDT Performed at: 02 - [facility] [address] [place], [place] [id number] Hopper Filler: Matthew Clark PhD, Phone: [phone] Patient Fasting: N Cash Khanna DO LAB BLOOD ORDERABLES F inal Result [facility] (AMBULATORY) [address] [place] [address], [facility] [address] [place] [address], * (ABNORMAL) Comprehensive Metabolic Panel (12/13/2024 12:39 [...] AM EDT Performed at: 02 - [facility] [address] [facility], [place], [place] [id number] Hopper Filler: Matthew Clark PhD, Phone: [phone] Patient Fasting: N us Cash Khanna DO LAB BLOOD ORDERABLES F inal Result [facility] (AMBULATORY) [address] [place] [address], [place] [phone] [facility] [address] [place] [address], [place] [phone] from Last [address] [facility] Medicare Advantage [employer] PPO Care Teams Card Maker Relationship Specialty Start Date End Date Columba Rodríguez APRN [address] [place] [address] [address] [place] [place] [address] PCP - General Family Medicine 11/10/23
[2025-01-20 11:30] VITALS: PULSE 68; PULSE 72
[2025-01-20] MEDS: ALBUTEROL 0.083% 2.5 MG/3 ML NEB IH (11:30)
== END 2025-01-20 23:59 | disposition home or self-care (01) ==
LOC: RT 09:59
PROVIDERS: PCP Family Medicine; Visit Provider Internal Medicine Pulmonary Disease
DX: J84.9 Interstitial pulmonary disease, unspecified (principal); R94.2 Abnormal results of pulmonary function studies
CPT/HCPCS: 94060; 94618; 94640; 94726; 94729

== ENCOUNTER 2025-01-30 08:44 | Outpatient (CLI) | payer MEDICARE, SELFPAY ==
--- OUTSIDE RECORDS SUMMARY | 2024-12-13 10:15 | XMS_ITS | Encounter Summary ---
[facility] Address [address] [place] [address] Care Team Providers Care Alloy Weigher Name Role Phone Columba Rodríguez APRN Primary Care Provider [phone] Reason for Visit * Reason Comments Rheumatoid Arthritis Follow up Osteoarthritis Follow up Encounter Details Date Type Department Care Team (Latest Contact Info) Description 12/13/2024 11:15 AM EDT Office Visit [facility] RHEUMATOLOGY [address] [address] Cash Khanna DO [address] [address] Seronegative rheumatoid arthritis (Primary Dx); Primary osteoarthritis involving multiple joints; Encounter for medication monitoring; Positive QuantiFERON-TB Gold test Social History Tobacco Use Types Packs/Day Years [...] on file documented as of this encounter Last Filed Vital Signs Vital Sign Reading Time Taken Comments Blood Pressure 108/60 12/13/2024 11:08 AM EDT Pulse 76 12/13/2024 11:08 AM EDT Temperature 36.8 C (98.2 F) 12/13/2024 11:08 AM EDT Respiratory Rate - - Oxygen Saturation - - Inhaled Oxygen Concentration - - Weight 89 kg (196 lb 3.2 oz) 12/13/2024 11:08 AM EDT Height 175.3 cm (5' 9.02 ) 12/13/2024 11:08 AM E DT Body Mass Index 28.96 12/13/2024 11:08 AM EDT documented in this encounter Patient Instructions * Attachments The following attachments cannot be sent through Care Everywhere. * Rheumatoid Arthritis ([place]icaraguan) documented in this encounter Progress Notes * Cash Khanna DO - 12/13/2024 11:15 AM EDTAssociated Problem(s): Osteoarthritis 1. NSAIDs were stopped due to GI [...] He had knee replacement surgery 10. He has had shoulder surgery Orders: CBC Auto Differential Comprehensive Metabolic Panel Sedimentation Rate Urine Drug Screen - Urine, Clean Catch C-reactive Protein * Cash Khanna DO - 12/13/2024 11:15 AM EDTAssociated Problem(s): Encounter for medication monitoring * Tramadol PRN 50 mg every 6 hours * Controlled substance agreement signed/updated 12/13/24 Check PRANAV and Drug screen as required. Drug screen ordered today Orders: CBC Auto Differential Comprehensive Metabolic Panel Sedimentation Rate Urine Drug Screen - Urine, Clean Catch C-reactive Protein traMADol (ULTRAM) 50 MG tablet; TAKE 1 TO 2 TABLETS BY MOUTH EVERY 8 HOURS NEEDED * Cash Khanna DO - 12/13/2024 11:15 AM EDTAssociated Problem(s): Positive QuantiFERON-TB Gold test Historically he was noted to have a [...] to be treated for TB first Orders: CBC Auto Differential Comprehensive Metabolic Panel Sedimentation Rate Urine Drug Screen - Urine, Clean Catch C-reactive Protein * Cash Khanna, DO - 12/13/2024 11:15 AM EDTAssociated Problem(s): Seronegative rheumatoid arthritis * Medications/treatments/interventions tried included: Diclofenac, gabapentin (made him itch), Plaquenil, Flexeril, Arava, prednisone, Tramadol, Xeljanz, IV Simponi, Tylenol, he has seen orthopaedic surgeons, physical therapy, he had knee replacement surgery, he saw podiatry, he has had shoulder surgery 1. He called and reported a GI [...] until this issue is sorted out Orders: CBC Auto Differential Comprehensive Metabolic Panel Sedimentation Rate Urine Drug Screen - Urine, Clean Catch C-reactive Protein * Jey Cash Mcdermott DO - 12/13/2024 11:15 AM EDT Images from the original note were not included. Office Follow Up Date: 12/13/2024 Patient Name: Mable Alford Date of : 1950 Chief Complaint Patient presents with Rheumatoid Arthritis Follow up Osteoarthritis Follow up History of Present Illness: Mable Alford is a 74 y.o. male who is here today for follow up. He is not on DMARD or biologic therapy. Currently we prescribe him Tramadol & Flexeril. No recent injuries or infections. No fever. Historically he was noted to have a + TB test. He saw infectious disease. 10/07/22 his QuantiFERON TB test was positive. 10/28/22 his T spot test was positive. At this point we referred him back to ID. They have not treated him for TB but stated that if he went on an immunosuppressive medication he would need to be treated for TB first. He has chronic and constant pain. Today she rates her pain as 3/10 in severity. She has 60 minutes/day of morning stiffness. No red or hot joints. His joints swell. He has muscle pain without weakness. His muscles cramp. He has back and neck pain. His neck is stiff. No rash. His skin is dry. No hair loss. He has numbness in the extremities. No headaches. He has decreased libido. He has diarrhea. No chest pain. He is short of breath. He has dry mouth but not dry eyes. He bruises easily. No lymphadenopathy. He is fatigued. Subjective Review of Systems Constitutional: Positive for appetite change, chills, fatigue and unexpected weight loss. HENT: Positive for congestion, dental problem (dry mouth), hearing loss, nosebleeds, rhinorrhea, sneezing, tinnitus, trouble swallowing and voice change. Eyes: Negative. Respiratory: Positive for apnea, choking and shortness of breath. Cardiovascular: Positive for leg swelling. Gastrointestinal: Positive for anal bleeding and diarrhea. Endocrine: Positive for cold intolerance and polyuria. Genitourinary: Positive for decreased libido. Musculoskeletal: Positive for arthralgias, back pain, joint swelling, myalgias, neck pain and neck stiffness. Skin: Positive for dry skin and bruise. Allergic/Immunologic: Negative. Neurological: Positive for dizziness, light-headedness, numbness, memory problem and confusion. Hematological: Bruises/bleeds easily. Psychiatric/Behavioral: Positive for sleep disturbance and stress. The patient is nervous/anxious. All other systems reviewed and are negative. Current Outpatient Medications: albuterol sulfate HFA 108 (90 Base) MCG/ACT inhaler, INHALE 2 INHALATIONS BY MOUTH EVERY 6 HOURS ASNEEDED FOR WHEEZING OR SHORTNESS OF AIR, Disp: 34 g, Rfl: 3 atorvastatin (LIPITOR) 40 MG tablet, Take 1 tablet by mouth every night at bedtime., Disp: , Rfl: Blood Glucose Monitoring Suppl (ONE TOUCH ULTRA 2) w/Device kit, , Disp: , Rfl: Cholecalciferol (Vitamin D3) 1.25 MG (50558 UT) tablet, Take 1 tablet by mouth Daily., Disp: , Rfl: colestipol (COLESTID) 1 g tablet, Take 1 tablet by mouth Daily., Disp: , Rfl: cyclobenzaprine (FLEXERIL) 5 MG tablet, Take 2 tablets by mouth 3 (Three) Times a Day As Needed forMuscle Spasms., Disp: 270 tablet, Rfl: 1 famotidine (PEPCID) 40 MG tablet, Take 1 tablet by mouth Daily., Disp: , Rfl: isoniazid (NYDRAZID) 300 MG tablet, Take 1 tablet by mouth Daily., Disp: , Rfl: lidocaine (LIDODERM) 5 %, Place 1 patch on the skin as directed by provider Daily. Remove & Discard patch within 12 hours or as directed by MD, Disp: 15 each, Rfl: 0 lidocaine (XYLOCAINE) 5 % ointment, Apply 1 Application topically to the appropriate area as directed., Disp: , Rfl: losartan (COZAAR) 50 MG tablet, , Disp: , Rfl: metFORMIN (GLUCOPHAGE) 1000 MG tablet, Take 1 tablet by mouth 2 (Two) Times a Day With Meals., Disp: , Rfl: metoprolol succinate XL (TOPROL-XL) 50 MG 24 hr tablet, Take 1 tablet by mouth Daily., Disp: , Rfl: Mounjaro 2.5 MG/0.5ML solution auto-injector, Inject under the skin into the appropriate area as directed 1 (One) Time Per Week., Disp: , Rfl: mupirocin (BACTROBAN) 2 % ointment, , Disp: , Rfl: nystatin (MYCOSTATIN) 478317 UNIT/GM cream, , Disp: , Rfl: omeprazole (priLOSEC) 40 MG capsule, Take 1 capsule by mouth Daily., Disp: , Rfl: ondansetron (ZOFRAN) 4 MG tablet, Take 1 tablet by mouth Every 8 (Eight) Hours As Needed for Nausea., Disp: , Rfl: OneTouch Ultra Test test strip, , Disp: , Rfl: Pharmacist Choice Lancets misc, 31 g., Disp: , Rfl: pioglitazone (ACTOS) 30 MG tablet, , Disp: , Rfl: Plavix 75 MG tablet, PLAVIX 75 MG TABS, Disp: , Rfl: potassium chloride (MICRO-K) 10 MEQ CR capsule, Take by mouth., Disp: , Rfl: traMADol (ULTRAM) 50 MG tablet, TAKE 1 TO 2 TABLETS BY MOUTH EVERY 8 HOURS NEEDED, Disp: 180 tablet, Rfl: 4 vitamin B-12 (cyanocobalamin) 100 MCG tablet, Take 1 tablet by mouth Daily., Disp: , Rfl: vitamin B-6 (PYRIDOXINE) 100 MG tablet, Take 2 tablets by mouth Daily., Disp: , Rfl: vitamin C (ASCORBIC ACID) 500 MG tablet, Take 1 tablet by mouth Daily., Disp: , Rfl: VITAMIN E 400 UNIT capsule, Take 1 capsule by mouth Daily., Disp: , Rfl: Xarelto 15 MG tablet, Take 1 tablet by mouth Daily., Disp: , Rfl: zinc gluconate 50 MG tablet, Take 1 tablet by mouth Daily., Disp: , Rfl: Allergies Allergen Reactions Penicillins Unknown - Low Severity, Itching and Unknown (See Comments) I have reviewed and updated the patient's chief complaint, history of present illness, review of systems, past medical history, surgical history, family history, social history, medications and allergy list as appropriate. Objective Vitals: 12/13/24 1108 BP: 108/60 BP Location: Right arm Patient Position: Sitting Cuff Size: Large Adult Pulse: 76 Temp: 98.2 ??F (36.8 ??C) Weight: 89 kg (196 lb 3.2 oz) Height: 175.3 cm (69.02 ) PainSc: 3 Body mass index is 28.96 kg/m??. Physical Exam General: Well appearing 74 year old male. Not in distress. He is ambulating unassisted. SKIN: No rashes. No alopecia. No subcutaneous nodules. No digital pits or ulcers. No sclerodactyly. HEENT: NCAT. Conjunctiva clear, no photophobia. No oral or nasal ulcers. Hearing intact. Pulmonary: Clear to auscultation bilaterally. No wheezing, rales, or rhonchi. CV: Regular rate and rhythm. No murmurs, rubs, or gallops. Psych: Normal mood and affect. Alert and oriented x 3. Extremities: No cyanosis or edema. Musculoskeletal: His PIP joints are swollen and tender symmetrically. His right hand is worse than the left. Normal range of motion of the wrists, ankles, elbows, and knees. Right knee has been replaced. Lymph: No palpable cervical adenopathy Procedures Assessment / Plan Assessment & Plan Seronegative rheumatoid arthritis * Medications/treatments/interventions tried included: Diclofenac, gabapentin (made him itch), Plaquenil, Flexeril, Arava, prednisone, Tramadol, Xeljanz, IV Simponi, Tylenol, he has seen orthopaedic surgeons, physical therapy, he had knee replacement surgery, he saw podiatry, he has had shoulder surgery 1. He called and reported a GI [...] until this issue is sorted out Orders: CBC Auto Differential Comprehensive Metabolic Panel Sedimentation Rate Urine Drug Screen - Urine, Clean Catch C-reactive Protein Primary osteoarthritis involving multiple joints 1. NSAIDs were stopped due to GI [...] He had knee replacement surgery 10. He has had shoulder surgery Orders: CBC Auto Differential Comprehensive Metabolic Panel Sedimentation Rate Urine Drug Screen - Urine, Clean Catch C-reactive Protein Encounter for medication monitoring * Tramadol PRN 50 mg every 6 hours * Controlled substance agreement signed/updated 12/13/24 Check PRANAV and Drug screen as required. Drug screen ordered today Orders: CBC Auto Differential Comprehensive Metabolic Panel Sedimentation Rate Urine Drug Screen - Urine, Clean Catch C-reactive Protein traMADol (ULTRAM) 50 MG tablet; TAKE 1 TO 2 TABLETS BY MOUTH EVERY 8 HOURS NEEDED Positive QuantiFERON-TB Gold test Historically he was noted to have a [...] to be treated for TB first Orders: CBC Auto Differential Comprehensive Metabolic Panel Sedimentation Rate Urine Drug Screen - Urine, Clean Catch C-reactive Protein Follow Up: Return in about 4 months (around 04/14/2025). Cash Khanna DO [facility] [place] documented in this encounter Plan of Treatment Upcoming Encounters Date Type Department Care Team (Late st Contact Info) Description 06/16/2025 11:15 AM EDT Office Visit [facility] RHEUMATOLOGY [address] [address] Cash Khanna DO [address] [place] [address] documented as of this encounter Procedures Procedure Name Priority Date/Time Associated Diagnosis Comments URINE DRUG SCREEN Routine 12/13/2024 12: 39 PM EDT Seronegative rheumatoid arthritis Primary osteoarthritis involving multiple joints Encounter for medication monitoring Positive QuantiFERON-TB Gold test SEDIMENTATION RATE Routine 12/13/2024 12 :39 PM EDT Seronegative rheumatoid arthritis Primary osteoarthritis involving multiple joints Encounter for medication monitoring Positive QuantiFERON-TB Gold test CBC AND DIFFERENTIAL Routine 12/13/2024 12:39 PM EDT C-REACTIVE PROTEIN Routine 12/13/2024 12 :39 PM EDT Seronegative rheumatoid arthritis Primary osteoarthritis involving multiple joints Encounter for medication monitoring Positive QuantiFERON-TB Gold test COMPREHENSIVE METABOLIC PANEL Routine 12/13/2024 12:39 PM EDT Seronegative rheumatoid arthritis Primary osteoarthritis involving multiple joints Encounter for medication monitoring Positive QuantiFERON-TB Gold test documented in this encounter Results * (ABNORMAL) CBC & Differential (12/13/2024 12:39 PM EDT) Pathologist [facility] WBC 7.6 3.4 - 10.8 x10E3/uL [facility] RBC 4.82 4.14 - 5.80 x10E6/uL [facility] Hemoglobin 10.6(L) 13.0 - 17.7 g/dL [facility] Hematocrit 36.5(L) 37.5 - 51.0 % [facility] MCV 76(L) 79 - 97 fL [facility] MCH 22.0(L) 26.6 - 33.0 pg [facility] MCHC 29.0(L) 31.5 - 35.7 g/dL [facility] RDW 15.0 11.6 - 15.4 % [facility] Platelets 341 150 - 450 x10E3/uL [facility] Neutrophil Rel % 70 Not Estab. % [facility] Lymphocyte Rel % 20 Not Estab. % [facility] Monocyte Rel % 9 Not Estab. % [facility] Eosinophil Rel % 1 Not Estab. % [facility] Basophil Rel % 0 Not Estab. % [facility] Neutrophils Absolute 5.3 1.4 - 7.0 x10E3/uL [facility] Lymphocytes Absolute 1.5 0.7 - 3.1 x10E3/uL [facility] Monocytes Absolute 0.7 0.1 - 0.9 x10E3/uL [facility] Eosinophils Absolute 0.1 0.0 - 0.4 x10E3/uL [facility] Basophils Absolute 0.0 0.0 - 0.2 x10E3/uL [facility] Immature Granulocyte Rel % 0 Not Estab. % [facility] Immature Grans Absolute 0.0 0.0 - 0.1 x10E3/uL [facility] 12/13/2024 12:3 9 PM EDT 12/13/2024 Narrative [facility] ([facility]ULAT[facility]) - 12/17/2024 8:08 AM EDT Performed at: [address] [id number] Manager Bar: Matthew Clark PhD, Phone: [phone] Patient Fasting: N Cash Khanna DO LAB BLOOD ORDERABLES F inal Result [facility] ([facility]BULATORY) [address] [place] [address], [facility] [address] [place] [address], * C-reactive Protein (12/13/2024 12:39 PM EDT) [facility] C-Reactive Protein 2 0 - 10 mg/L [facility] Blood 12/13/2024 12:3 9 PM EDT 12/13/2024 Narrative [facility] ([facility]) - 12/17/2024 8:08 AM EDT Performed at: - [address] [id number] Manager Bar: Matthew Clark PhD, Phone: [phone] Patient Fasting: N Cash Khanna DO LAB BLOOD ORDERABLES F inal Result [facility] ([facility]) [address] [place] [address], [place] [phone] [facility] [address] [place] [address], [place] [phone] * Urine Drug Screen - Urine, Clean Catch (12/13/2024 12:39 PM EDT) Pathologist [facility] Amphetamine, Urine Qual Negative Cutoff=10 00 ng/mL [facility] Barbiturates Screen, Urine Negative Cutoff=20 0 ng/mL [facility] Benzodiazepine Screen, Urine Negative Cutoff=20 0 ng/mL [facility] THC Screen, Urine Negative Cutoff=20 ng/mL [facility] Cocaine Screen, Urine Negative Cutoff=30 0 ng/mL [facility] Opiate Screen, Urine Negative Cutoff=30 0 ng/mL [facility] Comment:Opiate test includes Codeine, Morphine, Hydromorphone, Hydrocodone. Oxycodone/Oxymorph one, Urine Negative Cutoff=10 0 ng/mL [facility] Comment:Test includes Oxycod one and Oxymorphone Phencyclidine (PCP), Urine Negative Cutoff=25 ng/mL [facility] Methadone Screen, Urine Negative Cutoff=30 0 ng/mL [facility] Propoxyphene Screen Negative Cutoff=30 0 ng/mL [facility] Creatinine, Urine 189.9 20.0 - 300.0 mg/dL [facility] pH, UA 5.0 4.5 - 8.9 [facility] Please note Comment [facility] Comment: This assay provides a preliminary unconfirmed analytical test result that may be suitable for clinical management of patients in certain situations. Drug-test results should be interpreted in the context of clinical information. Patient metabolic variables, specific drug chemistry, and specimen characteristics can affect test outcome. Technical consultation is available if a test result is inconsistent with an expected outcome. Email: [email or web address] Urine Urine specimen obtained by clean catch procedure / Unknown 12/13/2024 12:39 PM EDT 12/13/2024 Narrative [facility] - 12/17/2024 8:08 AM EDT Performed at: 01 - [facility] [address] [place], [place] [id number] Manager Bar: Kenroy Mills PhD, Phone: [phone] Patient Fasting: N [facility] DO URINE ORDERABLES Final Result Performing Organization Address [facility] Co de Phone Number [facility] (AMBULATORY) [address] [place] [address], [facility] [address] [place] [address], * Sedimentation Rate (12/13/2024 12:39 PM EDT) Pathologist [facility] Sed Rate 29 0 - 30 mm/hr [facility] Blood 12/13/2024 12:3 9 PM EDT 12/13/2024 Narrative [facility]) - 12/17/2024 8:08 AM EDT Performed at: 02 - [facility] [address] [place], [place] [id number] Manager Bar: Matthew Clark PhD, Phone: [phone] Patient Fasting: N [facility] Baldemar Khanna LAB BLOOD ORDERABLES F inal Result Performing Organization Address [facility] Co de Phone Number [facility] [address] [place] [address], [facility] [address] [place] [address], [place] [phone] * (ABNORMAL) Comprehensive Metabolic Panel (12/13/2024 12:39 PM EDT) Glucose 154(H) 70 - 99 mg/dL [facility] BUN 20 8 - 27 mg/dL [facility] Creatinine 1.40(H) 0.76 - 1.27 mg/dL [facility] EGFR Result 53(L) >59 mL/min/1.7 3 [facility] BUN/Creatinine Ratio 14 10 - 24 [facility] Sodium 136 134 - 144 mmol/L [facility] Potassium 4.7 3.5 - 5.2 mmol/L [facility] Chloride 99 96 - 106 mmol/L [facility] Total CO2 19(L) 20 - 29 mmol/L [facility] Calcium 9.1 8.6 - 10.2 mg/dL [facility] Total Protein 6.9 6.0 - 8.5 g/dL [facility] Albumin 4.3 3.8 - 4.8 g/dL [facility] Globulin 2.6 1.5 - 4.5 g/dL [facility] Total Bilirubin 0.6 0.0 - 1.2 mg/dL [facility] Alkaline Phosphatase 109 47 - 123 IU/L [facility] Comment:Please note refere nce interval change AST (SGOT) 34 0 - 40 IU/L [facility] ALT (SGPT) 30 0 - 44 IU/L [facility] Blood 12/13/2024 12:3 9 PM EDT 12/13/2024 Narrative [facility] ([facility]) - 12/17/2024 8:08 AM EDT Performed at: 02 - [address] [id number] Manager Bar: Matthew Clark PhD, Phone: [phone] Patient Fasting: N Cash Khanna DO LAB BLOOD ORDERABLES F inal Result [facility] ([facility]) [address] [place] [address], [facility] [address] [place] [address], documented in this encounter Visit Diagnoses Diagnosis Seronegative rheumatoid arthritis- Primary Rheumatoid arthritis Primary osteoarthritis involving multiple joints Encounter for medication monitoring Encounter for therapeutic drug monitoring Positive QuantiFERON-TB Gold test documented in this encounter Care Teams Alloy Weigher Relationship Specialty Start Date End Date Columba Rodríguez APRN [address] [place] [address] PCP - General Family Medicine 11/10/23 documented as of this encounter
--- OUTSIDE RECORDS SUMMARY | 2025-01-30 08:53 | XMS_ITS | Clinical Summary ---
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 12/16 Imelda Hollis Nonspecific tuberculin test reaction + 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 R76.12 (ICD-10-CM ) 09/18 Active 09/18 Imelda Bunny 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 gamma interferon antigen response without active tuberculosis Edema, limb 899960493 (SNOMED CT) 09/21 Resolved 09/21 Imelda Hollis Edema of extremity Right Leg Edema, limb 500893409 (SNOMED CT) 09/21 Removed 09/21 Jer Zhang [...] DAY 2 THROUGH DAY 5 12/19 azithromycin 70962370501 Cinda Rolando BENZONATATE 100 MG CAPS Take 1 capsule by mouth three times a day as needed 12/19 BENZONATATE Cinda Fu TRIAZOLAM 0.25 MG TABS Take 1 tablet by mouth 12/19 triazolam 91534044017 Cinda Fu LORAZEPAM 1 MG TABS Take 1 tablet 12/19 lorazepam 92897755084 Cinda Fu LEVOFLOXACIN 750 MG TABS Take 1 tablet by mouth once a day 12/19 levofloxacin 82176461852 Cinda Rolando LOSARTAN POTASSIUM 50 MG TABS one tab oral daily 12/19 losartan 96797317077 Cinda Rolando NYSTATIN 414603 UNIT/GM OINT Apply to skin once a day 12/19 nystatin 94368618281 Cinda Fu RIFAMPIN 300 MG CAPS Take 2 by mouth once a day 12/19 rifampin 51113527810 Cinda Rolando CYCLOBENZAPRINE HCL 5 MG TABS one tab oral daily 12/19 cyclobenzaprine 88067471568 Cinda Fu ISONIAZID 300 MG TABS Take 1 tablet by mouth once a day 12/19 isoniazid 11816097709 Cinda PROMETHAZINE-CODEI NE 6.25-10 MG/5ML SYRP Take 5 ml by mouth twice a day 12/19 promethazine-code ine 05246577844 Cinda Fu DICYCLOMINE HCL 10 MG CAPS 1 cap oral twice a day 12/19 dicyclomine 54071906724 Cinda Fu CLOPIDOGREL BISULFATE 75 MG TABS Take 1 tablet by mouth once a day 12/19 clopidogrel 47538562134 Cinda Marshall HYDROCOD POLST-CPM POLST ER 10-8 MG/5ML ORAL SUSPENSION EXTENDED RELEASE Take 1 teaspoon by mouth twice a day 12/19 HYDROCOD POLST-CPM POLST ER 10-8 MG/5ML ORAL SUSPENSION EXTENDED RELEASE Cinda Marshall PLAVIX 75 MG TABS once a day clopidogrel 1154600 7190 Cinda Marshall TRIAZOLAM 0.25 MG TABS Take 1 tablet by mouth 09/24 triazolam 36311644438 Melvin Hartman ISONIAZID 300 MG TABS Take 1 tablet by mouth once a day 12/19 isoniazid 78637942957 Melvin Hartman CLOPIDOGREL BISULFATE 75 MG TABS Take 1 tablet by mouth once a day 12/19 clopidogrel 22641754668 Melvin Hartman LORAZEPAM 1 MG TABS Take 1 tablet 12/19 lorazepam 23329683265 Melvin Hartman NYSTATIN 032053 UNIT/GM OINT Apply to skin once a day 12/19 nystatin 09678476844 Melvin Hartman HYDROCOD POLST-CPM POLST ER 10-8 MG/5ML ORAL SUSPENSION EXTENDED RELEASE Take 1 teaspoon by mouth twice a day 12/19 HYDROCOD POLST-CPM POLST ER 10-8 MG/5ML ORAL SUSPENSION EXTENDED RELEASE Melvin Hartman AZITHROMYCIN 250 MG TABS TAKE 2 TABLETS BY MOUTH ON DAY 1 AND THEN TAKE 1 TABLET BY MOUTH ONCE A DAY ON DAY 2 THROUGH DAY 5 09/24 azithromycin 03045766713 Melvin Hartman RIFAMPIN 300 MG CAPS Take 2 by mouth once a day 09/24 rifampin 45912442201 Melvin Hartman PROMETHAZINE-CODEI NE 6.25-10 MG/5ML SYRP Take 5 ml by mouth twice a day 05/09 promethazine-code ine 58632273139 Melvin Hartman BENZONATATE 100 MG CAPS Take 1 capsule by mouth three times a day as needed 12/19 BENZONATATE Melvin Hartman LEVOFLOXACIN 750 MG TABS Take 1 tablet by mouth once a day 12/19 levofloxacin 02145172453 Melvin Hartman DICYCLOMINE HCL 10 MG CAPS 1 cap oral twice a day 09/24 dicyclomine 17759919404 Melvin Hartman SIMVASTATIN 20 MG TABS one tab oral daily simvastatin 36104656511 Melvin Hartman LOSARTAN POTASSIUM 50 MG TABS one tab oral daily 09/24 losartan 14350250074 Melvin Hartman CYCLOBENZAPRINE HCL 5 MG TABS one tab oral daily 09/24 cyclobenzaprine 56518386961 Melvin Hartman TRAMADOL HCL 50 MG TABS one tab every 6 hours prn tramadol 22308416799 Melvin Hartman METFORMIN HCL 500 MG TABS one tab oral twice a day metformin 34997352774 Melvin Hartman RIFAMPIN 300 MG CAPS take 2 po daily 09/24 RIFAMPIN 71739026476 Jer Zhang MD ISONIAZID 300 MG TABS Take 1 tablet by mouth daily 12/16 ISONIAZID 21385522795 Jer Zhang MD AZITHROMYCIN 250 MG TABS TAKE 2 TABLETS BY MOUTH ON DAY 1 AND THEN TAKE 1 TABLET BY MOUTH ONCE A DAY ON DAY 2 THROUGH DAY 5 09/24 AZITHROMYCIN 61319462443 Gerald Ocasio BENZONATATE 100 MG CAPS TAKE 1 CAPSULE BY MOUTH THREE TIMES DAILY FOR 10 DAYS NEEDED FOR COUGH 12/16 BENZONATATE 73817442281 Gerald Ocasio PROMETHAZINE-CODEI NE 6.25-10 MG/5ML SOLN TAKE 5 ML BY MOUTH TWICE DAILY 12/16 PROMETHAZINE-CODE INE 58356456191 Gerald Ocasio LEVOFLOXACIN 750 MG TABS TAKE 1 TABLET BY MOUTH ONCE DAILY FOR 8 DAYS 12/16 LEVOFLOXACIN 56891868159 Gerald Oacsio CLOPIDOGREL BISULFATE 75 MG TABS TAKE 1 TABLET BY MOUTH ONCE DAILY 12/16 CLOPIDOGREL BISULFATE 82988046979 Gerald D NYSTATIN 957045 UNIT/GM OINT APPLY OINTMENT TOPICALLY ONCE DAILY 12/16 NYSTATIN 89845917350 Gerald D HYDROCOD POLST-CPM POLST ER 10-8 MG/5ML ORAL SUSPENSION EXTENDED RELEASE TAKE 1 TEASPOONFUL (5 ML) BY MOUTH TWICE DAILY MAY CAUSE DROWSINESS 12/16 HYDROCOD POLST-CHLORPHEN POLST 69133671324 Gerald D TRIAZOLAM 0.25 MG TABS TAKE 1 TABLET BY MOUTH 30 MINUTES PRIOR TO MRI ON 09/24 TRIAZOLAM 52145224887 Gerald D LORAZEPAM 1 MG TABS TAKE 1 TABLET 2 HOURS BEFORE MRI FOR ANXIETY 12/16 LORAZEPAM 61451729553 Gerald D Medications Administered No information available. 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
--- OUTSIDE RECORDS SUMMARY | 2025-01-30 08:54 | XMS_ITS | Encounter Summary ---
Author Organization [facility] [facility] ([place], [place], [place], [place], [place]) Address [address] [place] [address] Care Team Providers Care Correctional Program Officer Name Role Phone Unavailable Primary Care Provider Unavailabl e Encounter Details Date Type Department Care Team (Late st Contact Info) Description 12/09/2020 Transcribed Document [facility] [place] [address] ProviderJaime MD [address] [place] [id number] Social History Tobacco Use Types Packs/Day Years [...] Appearance CLEAR2 12/09/2020 16:01 EDT Urine Specific [place] *1.026 12/09/2020 16:01 EDT Urine pH Dipstick [...]
--- OUTSIDE RECORDS SUMMARY | 2025-01-30 08:54 | XMS_ITS | Encounter Summary ---
Author Organization [employer] ([place], [place], [place], [place]) Address [address] [place] [address] Care Team Providers Care Core Cutter And Reamer Name Role Phone Unavailable Primary Care Provider Unavailabl e Encounter Details Date Type Department Care Team (Late st Contact Info) Description 12/08/2020 Transcribed Document [facility] [place] [address] ProviderJaime MD [address] [place], [place] [phone] Social History Tobacco Use Types Packs/Day Years [...] Policy Numbers : Insurance 1 Health Plan: [facility] MEDICARE REPL Policy Number: [id number] Authorization Number: Insurance Primary Name : [employer] MEDICARE REPL Policy Number: [id number] Authorization Status-Primary : Opo status approv Authorized Service Begin Date-Primary : 12/16/2020 EDT Observation Authorization Nbr-Primary : [id number] Authorization Comments-Primary : [employer] Medicare approved for outpt per availity Historical Authorization Comments-Primary : No Authorization Comments Found ROLANDO TABARES RN-Utilization Review - 12/08/2020 15:21 EDT documented in this encounter Plan of Treatment Not on file documented as of this encounter Visit Diagnoses Not on filedocumented in this encounter
--- OUTSIDE RECORDS SUMMARY | 2025-01-30 08:54 | XMS_ITS | Encounter Summary ---
Author Organization [employer] ([place], [place], [place], [place], [place]) Address [address] [place] [address] Care Team Providers Care Cargoman Name Role Phone Unavailable Primary Care Provider Unavailabl e Encounter Details Date Type Department Care Team (Late st Contact Info) Description 12/16/2020 Transcribed Document [facility] Family Medicine [facility] [place] [address] ProviderJaime MD [address] [place], [place] [id number] Social History Tobacco Use Types Packs/Day Years [...] Source : Stated Height Entry Format : [place] Height, Feet : 5 ft(Converted to: 152 cm, 60 Inch) Height, Inches : 9 Inch(Converted to: 0 ft 9 Inch, 22.86 cm) Clinical Height : 175.26 cm Weight Source : Standing scale Weight Entry Format : [place] Clinical Dosing Weight : 96.93 kg Weight, Pounds : 213 lb Weight, Ounces : 4 oz Body Surface Area (BSA) : 2.12 m2 Body Mass Index : 31.6 kg/m2 (HI) Freeman Body Weight : 70 kg CIARA WOODS [...] CIARA WOODS RN - 12/16/2020 6:51 EDT [place] Suicide Severity Rating Scale (C-SSRS) CSSRS Past [...] Obtained From : Patient Primary Language : Guyanese Preferred Communication Mode : Verbal Communication Barrier : None Almond Blancher Hand Needed : No CIARA WOODS RN - [...] version of the form. Electronically signed by Lakesha, Pedro Conversion Defensive Fire Control Systems Operator Cerner at 07/09/2022 10:37 AM CDT documented in this encounter Plan of Treatment Not on file documented as of this encounter Visit Diagnoses Not on filedocumented in this encounter
--- OUTSIDE RECORDS SUMMARY | 2025-01-30 08:54 | XMS_ITS | Clinical Summary ---
[facility] Organization [facility] Address [address] [place] [address] Care Team Providers Care Engineering Agent Name Role Phone Columba Rodríguez APRN Primary Care Provider [phone] Allergies Active Allergy Reactions Criticality Noted Date Comments Penicillins Unknown - Low Severi ty,Itching,Unknown (See Comments) Medium 08/08/2017 Medications Plavix 75 MG tablet PLAVIX 75 MG TABS Active vitamin B-12 (cyanocobalamin ) 100 MCG tablet Take 1 tablet by mouth Daily. Active losartan (COZAAR) 50 MG tablet 3 Active mupirocin (BACTROBAN) 2 % ointment 3 Active nystatin (MYCOSTATIN) 183543 UNIT/GM cream 3 Active pioglitazone (ACTOS) 30 [...] Daily. Active Cholecalciferol (Vitamin D3) 1.25 MG (74527 UT) tablet Take 1 tablet by mouth [...] Department Care Team Description 12/17/2024 Results Follow-Up [facility] [address] [phone] Cash Khanna DO 12/13/2024 11:15 AM EDT Office Visit [facility] [address] [address] Cash Khanna DO Seronegative rheumatoid [...] Visit [facility] [address] [place] [address] Cash Khanna DO [address] [facility] [address] [place] [address] Health Maintenance Due Date Last Done Comments [...] Catch (12/13/2024 12:39 PM EDT) Pathologist [facility] Amphetamine, Urine Qual Negative Cutoff=10 00 ng/mL [...] is inconsistent with an expected outcome. Email: Urine Urine specimen obtained by clean catch procedure / Unknown 12/13/2024 12:39 PM EDT 12/13/2024 Narrative [facility] (AMBULATORY) - 12/17/2024 8:08 AM EDT Performed at: - [facility] [address] [facility], [place], [place] [id number] Support Clerk: Kenroy Mills PhD, Phone: [phone] Patient Fasting: N [facility] URINE ORDERABLES Final Result Performing Organization Address [facility] Co de Phone Number [facility] (AMBULATORY) [address] [place] [address], [facility] [address] [place] [address], * Sedimentation Rate (12/13/2024 12:39 PM EDT) Pathologist [facility] Sed Rate 29 0 - 30 mm/hr [facility] Blood 12/13/2024 12:3 9 PM EDT 12/13/2024 Narrative [facility] (AMBULATORY) - 12/17/2024 8:08 AM EDT [facility]formed at: - [facility] [address] [place] [id number] Support Clerk: Matthew Clark PhD, Phone: [phone] Patient Fasting: N [facility] LAB BLOOD ORDERABLES F inal Result Performing Organization Address [facility] Co de Phone Number [facility] [address] [place] [address], [facility] [address] [place] [phone], * (ABNORMAL) CBC & Differential (12/13/2024 12:39 PM EDT) Pathologist [facility] WBC 7.6 3.4 - 10.8 x10E3/uL [facility] [...] 8:08 AM EDT Performed at: 02 - [address] [id number] Support Clerk: Matthew lCark PhD, Phone: [phone] Patient Fasting: N Cash Khanna DO LAB BLOOD ORDERABLES F inal Result [facility] ([facility]BULATORY) [address] [place] [address], [facility] [address] [place] [address], * C-reactive Protein (12/13/2024 12:39 PM EDT) [facility] C-Reactive Protein 2 0 - 10 mg/L [facility] Blood 12/13/2024 12:3 9 PM EDT 12/13/2024 Narrative [facility] (AMBULATORY) - 12/17/2024 8:08 AM EDT Performed at: 02 - [facility] [address] [place], [place] [id number] Support Clerk: Matthew Clark PhD, Phone: [phone] Patient Fasting: N Cash Khanna DO LAB BLOOD ORDERABLES F inal Result [facility] (AMBULATORY) [address] [place] [address], [facility] [address] [place] [address], * (ABNORMAL) Comprehensive Metabolic Panel (12/13/2024 12:39 [...] AM EDT Performed at: 02 - [facility] [address] [facility], [place], [place] [id number] Support Clerk: Matthew Clark PhD, Phone: [phone] Patient Fasting: N us Cash Khanna DO LAB BLOOD ORDERABLES F inal Result [facility] (AMBULATORY) [address] [place] [address], [place] [phone] [facility] [address] [place] [address], [place] [phone] from Last 3 Months Insurance [facility] Medicare Advantage [employer] PPO Care Teams Engineering Agent Relationship Specialty Start Date End Date Columba Rodríguez APRN [address] [place] [address] [address] [place] [place] [address] PCP - General Family Medicine 11/10/23
--- OUTSIDE RECORDS SUMMARY | 2025-01-30 08:54 | XMS_ITS | Encounter Summary ---
Author Organization [employer] ([place], [place], [place], [place]) Address [address] [place] [address] Care Team Providers Care Nuclear Powerplant Supervisor Name Role Phone Unavailable Primary Care Provider Unavailabl e Encounter Details Date Type Department Care Team (Late st Contact Info) Description 12/09/2020 Transcribed Document [facility] Family [place] [facility] [place] [address] ProviderJaime MD [address] [place], [place] [address] Social History Tobacco Use Types Packs/Day Years [...]
--- OUTSIDE RECORDS SUMMARY | 2025-01-30 08:54 | XMS_ITS | Encounter Summary ---
Author Organization [employer] ([place], [place], [place]) Address [address] [place] [address] Care Team Providers Care Fashion Director Party Plan Sales Name Role Phone Unavailable Primary Care Provider Unavailabl e Encounter Details Date Type Department Care Team (Late st Contact Info) Description 12/22/2020 Transcribed Document [facility] Family Medicine [facility] [place] [address] ProviderJaime MD [address] [place], [place] [phone] Social History Tobacco Use Types Packs/Day Years [...] or 4 frozen water bottles in the [facility] CARE CUBE. Continue to use Incentive Spirometer [...] Barley. Bulgur wheat. Millet. Bran muffins. Popcorn. [place] wafer crackers. Vegetables Sweet potatoes. Spinach. Kale. Artichokes. Cabbage. Broccoli. Green peas. Carrots. Squash. Fruits Berries. Pears. Apples. Oranges. Avocados. Prunes and raisins. Dried figs. Meats and Other Protein Sources [place], kidney, amador, and soy beans. Split peas. [...] 1 katy has 11 g of protein. [place] seeds ??? 1 oz has 5.5 g [...] the floor. Place frequently used items in exju-xq-ovgzk places Keep electrical cables out of the [...] ? Using the bathroom. ? Using household inspector floor sub assembly or toxic chemicals. ? Touching or taking [...] activities are safe for you. ??? Take dlbl-sde-ufyzgbe and prescription medicines only as told by [...] provider. Document Revised: 03/16/2018 Document Reviewed: 10/27/2017 [employer] Patient Education ? 2020 [employer] documented in this encounter Plan of Treatment Not on file documented as of this encounter Visit Diagnoses Not on filedocumented in this encounter
--- OUTSIDE RECORDS SUMMARY | 2025-01-30 08:54 | XMS_ITS | Referral Summary ---
Author Organization [employer] ([place], [place], [place], [place], [place]) Address [address] [place] [address] Care Team Providers Care Cigar Head Stringer Name Role Phone Unavailable Primary Care Provider [...] Date Milton rded Speak language other than Filipino at home Not on file 01/23/2024 Want [...] Plan of Treatment Not on file Insurance [facility] MEDICARE ADVANTAGE
--- OUTSIDE RECORDS SUMMARY | 2025-01-30 08:54 | XMS_ITS | Encounter Summary ---
Author Organization [employer] ([place], [place], [place], [place], [place]) Address [address] [place] [address] Care Team Providers Care Temper Mill Roller Name Role Phone Unavailable Primary Care Provider Unavailabl e Encounter Details Date Type Department Care Team (Late st Contact Info) Description 12/09/2020 Transcribed Document [facility] [place] [facility] [place] [address] ProviderJaime MD [address] [place], [place] [id number] Social History Tobacco Use Types Packs/Day Years [...] : Standing scale Weight Entry Format : Morse Clinical Dosing Weight : 95.91 kg Weight, Pounds : 211 lb Body Surface Area (BSA) : 2.12 m2 Body Mass Index : 31.2 kg/m2 (HI) [place] Body Weight : 70 kg Michaela Alvarez Rn - 12/09/2020 16:02 EDT Height Source : Stated Height Entry Format : Morse Michaela Alvarez Rn - 12/09/2020 15:57 EDT [...] Disease Recent Travel Calc : 0 Michaela Alvarze Rn - 12/09/2020 16:02 EDT COVID19 PreProcedure [...] History of Anesthesia Reaction : None Michaela Avlarez Rn - 12/09/2020 16:02 EDT Advance Directive Patient has Advance Directive *Q : Yes, Advance Directive not with the patient Advance Directive Type : Living will Copy Advance Directive Verified/on Chart : No Michaela Alvarez Rn - 12/09/2020 16:02 EDT [place] Suicide Severity Rating Scale (C-SSRS) CSSRS Past [...] Obtained From : Patient Primary Language : Surinamese Preferred Communication Mode : Verbal Communication Barrier : None Secretary Board Of Commissioners Needed : No Michaela Alvarez Rn - [...]
--- OUTSIDE RECORDS SUMMARY | 2025-01-30 08:54 | XMS_ITS | Encounter Summary ---
[facility] Address [address] [place] [address] Care Team Providers Care Business Development Consultant Name Role Phone Columba Rodríguez APRN Primary Care Provider [phone] Encounter Details Date Type Department Care Team (Late Contact Info) Description 12/17/2024 Results Follow-Up [facility] [address] [address] Cash Khanna DO [address] [phone] Social History Tobacco Use Types Packs/Day Years [...] Description 06/16/2025 11:15 AM EDT Office Visit [facility] [address] [address] Cash Khanna DO [address] [phone] documented as of this encounter Visit Diagnoses Not on filedocumented in this encounter Care Teams Business Development Consultant Relationship Specialty Start Date End Date Columba Rodríguez APRN [address] [place] [address] PCP - General Family Medicine 11/10/23 documented as of this encounter
--- OUTSIDE RECORDS SUMMARY | 2025-01-30 08:54 | XMS_ITS | Encounter Summary ---
[facility] Address [address] [place] [address] Care Team Providers Care Leaflet Or Newspaper Deliverer Name Role Phone Columba Rodríguez APRN Primary Care Provider [phone] Encounter Details Date Type Department Care Team [...] Description 06/16/2025 11:15 AM EDT Office Visit [facility] [address] [phone] Cash Khanna DO [address] [address] documented as of this encounter Visit Diagnoses Not on filedocumented in this encounter Care Teams Leaflet Or Newspaper Deliverer Relationship Specialty Start Date End Date Columba Rodríguez APRN [address] [place] [address] PCP - General Family Medicine 11/10/23 documented as of this encounter
--- OUTSIDE RECORDS SUMMARY | 2025-01-30 08:54 | XMS_ITS | Encounter Summary ---
Author Organization [employer] ([place], [place], [place], [place], [place]) Address [address] [place] [address] Care Team Providers Care Poultry Culler Name Role Phone Unavailable Primary Care Provider Unavailabl e Reason for Referral * Consultation (Routine) - Closed Specialty Diagnoses / Procedures Referred By Contac t Referred To Contact Neurology Diagnoses Seizure (HCC) Kirsten Gates [place] [place] [address] Phone: tel: Mac Leonard MD [address] [facility] [address] [place] [address] Phone: tel: fax: Referral ID Status Reason Start Date Expiration Date V isits Requested Visits Authorized [id number] Closed Specialty Services Required 01/03/2024 01/02/2025 1 1 Encounter Details Date Type Department Care Team (Late st Contact Info) Description 01/03/2024 Outside Orders [facility] Neurology [address] [facility] [address] [place] [address] K[address]en Gates [address] [place] [address] Seizure (HCC) (Primary Dx) Social History Tobacco [...] Date Milton rded Speak language other than Mexican at home Not on file 01/23/2024 Want [...]
--- OUTSIDE RECORDS SUMMARY | 2025-01-30 08:54 | XMS_ITS | Encounter Summary ---
Author Organization [employer] ([place], [place], [place], [place], [place]) Address [address] [place] [address] Care Team Providers Care Technical Sourcing Recruiter Name Role Phone Unavailable Primary Care Provider Unavailabl e Encounter Details Date Type Department Care Team (Late st Contact Info) Description 12/16/2020 Transcribed Document [facility] [place] [facility] [place] [address] ProviderJaime MD [address] [place], [place] [address] Social History Tobacco Use Types Packs/Day Years [...]
--- OUTSIDE RECORDS SUMMARY | 2025-01-30 08:55 | XMS_ITS | Encounter Summary ---
[facility] Address [address] [place] [phone] Care Team Providers Care Support Technician Name Role Phone Columba Rodríguez APRN Primary Care Provider [phone] Reason for Visit * Reason Comments Med Refill Encounter Details Date Type Department Care Team (Late Contact Info) Description 09/01/2023 Refill [facility]ICINE [address] [place] [address] Isai Tran MD [address] [place] [address] Social History Tobacco Use Types Packs/Day Years [...] [facility] [address] [place] [address] Cash Khanna DO [address] [facility] [address] [place], [place] [phone] documented as of this encounter Visit Diagnoses Not on filedocumented in this encounter Care Teams Support Technician Relationship Specialty Start Date End Date Columba Rodríguez APRN [address] [place] [phone] PCP - General Family Medicine 11/10/23 documented as of this encounter
--- OUTSIDE RECORDS SUMMARY | 2025-01-30 08:55 | XMS_ITS | Encounter Summary ---
Author Organization [employer] ([place], [place], [place], [place], [place]) Address [address] [place] [address] Care Team Providers Care Asphalt Worker Name Role Phone Unavailable Primary Care Provider Unavailabl e Encounter Details Date Type Department Care Team (Late st Contact Info) Description 12/24/2020 Transcribed Document [facility] [address] [place] [address] ProviderJaime MD [address] [place] [phone] Social History Tobacco Use Types Packs/Day Years [...] right total knee replacement, final condition improved. /[id number] MD RAO Gibbs Jr/DIANNA / RAO / MODL /[id number] documented in this encounter Plan of Treatment Not on file documented as of this encounter Visit Diagnoses Not on filedocumented in this encounter
--- OUTSIDE RECORDS SUMMARY | 2025-01-30 08:55 | XMS_ITS | Encounter Summary ---
Author Organization [employer] ([place], [place], [place], [place], [place]) Address [address] [place] [address] Care Team Providers Care Final Block Press Operator Name Role Phone Unavailable Primary Care Provider Unavailabl e Encounter Details Date Type Department Care Team (Late st Contact Info) Description 12/23/2020 Transcribed Document [facility] [place] [facility] [place] [address] ProviderJaime MD [address] [place] [address] Social History Tobacco Use Types Packs/Day Years Used Date Smoking Tobacco: Never Assessed Sex and Gender Information Value Date Recorded Sex Assigned at Not on file Legal Sex Male 5:28 PM CDT Gender Identity Not on file Sexual Orientation Not on file documented as of this encounter Miscellaneous Notes * Cerner Conversion Note - Jaime ProviderMD - 12/23/2020 1:22 [place] [address] AYLEEN BLACK III :1950 Visit Time:12/23/2020 What [...] Seal. Dressing may be removed on the 14 day after surgery. is post op day [...] 6 days after surgery [facility] Physical Therapy Home Health Services: [...] When 12/29/2020 09:45 AM EDT Where: [address] [facility] [address] FLO[address] [place] [id number] Medications What How Much When Instructions Next [...] bottles in the [facility] CARE CUBE. Continue to use Incentive Spirometer [...] Barley. Bulgur wheat. Millet. Bran muffins. Popcorn. Iola wafer crackers. Vegetables Sweet potatoes. Spinach. Kale. Artichokes. Cabbage. Broccoli. Green peas. Carrots. Squash. Fruits Berries. Pears. Apples. Oranges. Avocados. Prunes and raisins. Dried figs. Meats and Other Protein Sources Millis-Clicquot, kidney, amador, and soy beans. Split peas. [...] 1 katy has 11 g of protein. Oxford seeds ??? 1 oz has 5.5 g [...] the floor. Place frequently used items in adzs-aq-xzwfy places Keep electrical cables out of the [...] ? Using the bathroom. ? Using household surety bond agent or toxic chemicals. ? Touching or taking [...] activities are safe for you. ??? Take ghcg-srf-epppadc and prescription medicines only as told by [...] provider. Document Revised: 03/16/2018 Document Reviewed: 10/27/2017 [employer] Patient Education ?? 2020 eBuddy. acetaminophen (oral) (a SEET a MIN oh fen) Actamin, Anacin AF, Aurophen, Bromo Humphreys, Children's Tylenol, Mapap, M-Pap, Pharbetol, Silapap Childrens, [...] is a pain reliever and a fever house wirer. There are many brands and forms of [...] may report side effects to FDA at 6-760-IWJ-9415. What other drugs will affect acetaminophen? Other drugs may affect acetaminophen, including prescription and ktwx-uws-xvkfekw medicines, vitamins, and herbal products. Tell your [...] to ensure that the information provided by [employer]. ('Multum') is accurate, up-to-date, and complete, but no guarantee is made to that effect. Drug information contained herein may be time sensitive. [employer] information has been compiled for use by healthcare practitioners and consumers in the [place] and therefore [employer] does not warrant that uses outside of the [place] are appropriate, unless specifically indicated otherwise. [employer]'s drug information does not endorse drugs, diagnose patients or recommend therapy. [facility] drug information is an informational resource [...] appropriate for any given patient. [facility] does not assume any responsibility for any aspect of healthcare administered with the aid of information [facility] provides. The information contained herein is not intended to cover all possible uses, directions, precautions, warnings, drug interactions, allergic reactions, or adverse effects. If you have questions about the drugs you are taking, check with your doctor, nurse or pharmacist. Copyright 9823-[address]666 [facility]. Version: 21.04. Revision Date: 11/01/2019. aspirin (oral) ( pir in) Arthritis Pain, Aspi-Cor, Aspir-Low, Nusrat Plus, Durlaza, Ecotrin, Miniprin, Vazalore What is the most important information I should know about aspirin? Aspirin can cause Tonia's syndrome, a serious and sometimes fatal condition in children. What is aspirin? Aspirin is a salicylate (jw-VJY-mj-ate) that is used to treat pain, and [...] may report side effects to FDA at 1-807-NVV-1223. What other drugs will affect aspirin? Ask [...] drugs may affect aspirin, including prescription and dzba-ziv-mqomxad medicines, vitamins, and herbal products. Not all [...] to ensure that the information provided by [employer]. ('Multum') is accurate, up-to-date, and complete, but no guarantee is made to that effect. Drug information contained herein may be time sensitive. [employer] information has been compiled for use by healthcare practitioners and consumers in the [place] and therefore [employer] does not warrant that uses outside of the [place] are appropriate, unless specifically indicated otherwise. Eligibles drug information does not endorse drugs, diagnose patients or recommend therapy. Eligibles drug information is an informational resource designed [...] effective or appropriate for any given patient. [employer] does not assume any responsibility for any aspect of healthcare administered with the aid of information [facility] provides. The information contained herein is not intended to cover all possible uses, directions, precautions, warnings, drug interactions, allergic reactions, or adverse effects. If you have questions about the drugs you are taking, check with your doctor, nurse or pharmacist. Copyright 0256-0890 [employer]. Version: 16.03. Revision Date: 09/21/2020. oxycodone (ox [...] The extended-release form of oxycodone is for oufxrg-cec-zwgbd treatment of pain and should not be [...] against the law. Stop taking all other pvkkdt-pty-nvmer opioid pain medicines when you start taking [...] may report side effects to FDA at 7-986-MPR-3226. What other drugs will affect oxycodone? You [...] may affect oxycodone. This includes prescription and rjmp-wci-mxsduxk medicines, vitamins, and herbal products. Not all [...] to ensure that the information provided by [employer]. ('Multum') is accurate, up-to-date, and complete, but no guarantee is made to that effect. Drug information contained herein may be time sensitive. [employer] information has been compiled for use by healthcare practitioners and consumers in the [place] and therefore [employer] does not warrant that uses outside of the [place] are appropriate, unless specifically indicated otherwise. Eligibles drug information does not endorse drugs, diagnose patients or recommend therapy. Eligibles drug information is an informational resource designed [...] effective or appropriate for any given patient. [employer] does not assume any responsibility for any aspect of healthcare administered with the aid of information [employer] provides. The information contained herein is not intended to cover all possible uses, directions, precautions, warnings, drug interactions, allergic reactions, or adverse effects. If you have questions about the drugs you are taking, check with your doctor, nurse or pharmacist. Copyright 9992-2133 [facility] [employer]. Version: 14.02. Revision Date: 04/23/2020. docusate (oral/rectal) [...] may report side effects to FDA at 0-265-RZM-7451. What other drugs will affect docusate? Other drugs may affect docusate, including prescription and qztf-ksb-qsszmtm medicines, vitamins, and herbal products. Tell your [...] to ensure that the information provided by [employer]. ('Multum') is accurate, up-to-date, and complete, but no guarantee is made to that effect. Drug information contained herein may be time sensitive. [employer] information has been compiled for use by healthcare practitioners and consumers in the [place] and therefore [employer] does not warrant that uses outside of the [place] are appropriate, unless specifically indicated otherwise. [employer]'s drug information does not endorse drugs, diagnose patients or recommend therapy. Eligibles drug information is an informational resource designed [...] effective or appropriate for any given patient. [employer] does not assume any responsibility for any aspect of healthcare administered with the aid of information [employer] provides. The information contained herein is not intended to cover all possible uses, directions, precautions, warnings, drug interactions, allergic reactions, or adverse effects. If you have questions about the drugs you are taking, check with your doctor, nurse or pharmacist. Copyright 6698-8348 [employer]. Version: 4.01. Revision Date: 10/01/2018. cephalexin (sef [...] may report side effects to FDA at 3-133-XNE-2497. What other drugs will affect cephalexin? Tell your doctor about all your other medicines, especially: ?? metformin; or ?? probenecid. This list is not complete. Other drugs may affect cephalexin, including prescription and mbmp-zpu-bmclgak medicines, vitamins, and herbal products. Not all [...] to ensure that the information provided by [employer]. ('Taskdoer') is accurate, up-to-date, and complete, but no guarantee is made to that effect. Drug information contained herein may be time sensitive. [employer] information has been compiled for use by healthcare practitioners and consumers in the [place] and therefore [employer] does not warrant that uses outside of the [place] are appropriate, unless specifically indicated otherwise. Eligibles drug information does not endorse drugs, diagnose patients or recommend therapy. Eligibles drug information is an informational resource designed [...] effective or appropriate for any given patient. [employer] does not assume any responsibility for any aspect of healthcare administered with the aid of information [employer] provides. The information contained herein is not intended to cover all possible uses, directions, precautions, warnings, drug interactions, allergic reactions, or adverse effects. If you have questions about the drugs you are taking, check with your doctor, nurse or pharmacist. Copyright 7387-5656 [employer]. Version: 10.03. Revision Date: 03/30/2020. tramadol (TRAM a dol) Chapop, Qdolo, Ultram, Ultram ER What is the [...]
--- OUTSIDE RECORDS SUMMARY | 2025-01-30 08:55 | XMS_ITS | Encounter Summary ---
Author Organization [email or web address] ([place], [place], [place], [place], [place]) Address [address] [place] [address] Care Team Providers Care Exchange Clerk Name Role Phone Unavailable Primary Care Provider Unavailabl e Encounter Details Date Type Department Care Team (Late st Contact Info) Description 12/23/2020 Transcribed Document [facility] [place] [facility] [place] [address] ProviderJaime MD [address] [place], [place] [phone] Social History Tobacco Use Types Packs/Day Years [...]
--- OUTSIDE RECORDS SUMMARY | 2025-01-30 08:55 | XMS_ITS | Encounter Summary ---
Author Organization [employer] ([place], [place], [place], [place], [place]) Address [address] [place] [address] Care Team Providers Care Public Health Aide Name Role Phone Unavailable Primary Care Provider Unavailabl e Encounter Details Date Type Department Care Team (Late st Contact Info) Description 12/23/2020 Transcribed Document [facility] [place] [facility] [place] [address] ProviderJaime MD [address] [place], [place] [phone] Social History Tobacco Use Types Packs/Day Years [...] Performed On: 12/23/2020 15:58 EDT by ANGELA NGUYEN, RN Final Discharge Planning Discharge Arrangements : [...]
--- OUTSIDE RECORDS SUMMARY | 2025-01-30 08:55 | XMS_ITS | Encounter Summary ---
Author Organization [employer] ([place], [place], [place], [place], [place]) Address [address] [place] [address] Care Team Providers Care Six Color Press Operator Name Role Phone Unavailable Primary Care Provider Unavailabl e Encounter Details Date Type Department Care Team (Late st Contact Info) Description 12/23/2020 Transcribed Document [facility] [place] Family Medicine [facility] [place] [address] ProviderJaime MD [address] [place] [address] [phone] Social History Tobacco Use Types Packs/Day Years [...] MD-ORT Finalized Date/Time: 12/23/20 09:59:37 Pt. Name: SOFIA VILMA CARLOSDanny /Sex: 1950 Male Med Rec #: [id number] Physician: KAYLA ZIMMERMAN JR, JR, MD-ORT Financial #: [id number] Pt. Type: O Room/Bed: Admit/Disch: 12/23/20 04:16:00 - Institution: [facility] IntraOp Case Attendance Entry 1 Entry 2 Entry 3 Case Attendee KAYLA ZIMMERMAN JR, JR, TARA MERA APRN,WOLF HUNTER HAYDER EASON, LUCIE GRIGSBY Role Performed Surgeon/Proceduralist, WOLF HUNTER/Nurse Carrier Operator Jewel Cupping Machine Operator, First First Time In 12/23/20 07:51:00 12/23/20 [...] 5 Entry 6 Case Attendee Stephan Boyce, MACHINE STITCHER/AUTOMATIC GRINDING MACHINE OPERATOR GET ARIAS, Gi Pascal, Scub Tech Role Performed Medical Imaging Tech, First Scrub, First Scrub, Second Time In [...] 8 Case Attendee OTHER, ATTENDEE #1 NGOZI PETTY CRNA Role Performed Vendor WOLF HUNTER/Nurse Carrier Operator Time In 12/23/20 07:51:00 12/23/20 08:29:00 Time Out 12/23/20 09:55:00 12/23/20 08:41:00 Procedure Knee Total Joint Knee Total Joint Replacement Replacement Other Attendee [facility] WOLF HUNTER BREAK Superficial Wound Closed By: Last Modified By: HAYDER EASON RN LONGSWORTH, GARY, LUCIE 12/23/20 07:19:17 12/23/20 08:29:30 [facility] IntraOp Case Attendance Audit 12/23/20 09:55:23 Mailroom Courier: LONGGA Modifier: LONGGA 1 <+> Time Out [...] Procedure Knee Total Joint Replacement 12/23/20 08:48:55 Mailroom Courier: LONGGA Modifier: LONGGA 8 <+> Time Out 8 <*> Procedure Knee Total Joint Replacement 12/23/20 08:29:30 Mailroom Courier: LONGGA Modifier: LONGGA <+> 8 Case Attendee <+> 8 Role Performed <+> 8 Time In <+> 8 Procedure <+> 8 Other Attendee 12/23/20 08:25:18 Mailroom Courier: LONGGA Modifier: LONGGA 1 <+> Time In [...] Procedure Knee Total Joint Replacement 12/23/20 07:25:50 Mailroom Courier: LONGGA Modifier: LONGGA <+> 1 Procedure 2 [...] [facility] IntraOp Case Times Audit 12/23/20 09:55:21 Mailroom Courier: LONGGA Modifier: LONGGA <+> 1 Out Room Time <+> 1 Stop Time <+> 1 Stop Time 12/23/20 08:21:13 Mailroom Courier: LONGGA Modifier: LONGGA <+> 1 Start Time [...] [facility] IntraOp Counts Verification Audit 12/23/20 09:01:12 Mailroom Courier: LONGGA Modifier: LONGGA <+> 2 Procedure <+> [...] HAYDER EASON, LUCIE, Accompanied by TARA MERA APRN,WOLF HUNTER Last Modified By: HAYDER EASON RN 12/23/20 09:08:10 [facility] IntraOp Dressing and Packing Entry 1 Type Dressing Location RIGHT KNEE Wound Dressing Item Papo Supplemental Limb immobilizer, Cold Applications pack Applied By Stephan Boyce, MACHINE STITCHER/AUTOMATIC GRINDING MACHINE OPERATOR Other Comments JONATHAN WOUND DRESSING Last Modified [...] RN 12/23/20 07:24:40 [facility] IntraOp General Case Independent Beauty Consultant 1 Case Information OR OR 02 SJE Case Level 1 Room Verified Yes Wound Class I - Clean Specialty Orthopedic Anesthesia Type General ASA Class 3 Diagnosis Preop Diagnosis DEGENERATIVE JOINT DISEASE, RIGHT KNEE Postop Same As Preop Yes Postop Diagnosis DEGENERATIVE JOINT DISEASE, RIGHT KNEE Last Modified By: HAYDER EASON RN 12/23/20 08:27:58 [facility] IntraOp General Case Data Audit 12/23/20 08:27:58 Mailroom Courier: YVETTE Modifier: LONGGA 1 <*> OR OR [...] PATELLA ITOTAL JIGS CR ITOTAL ID Identification [id number] Description Implant Quantity 2 1 1 Implant Site RIGHT KNEE RIGHT KNEE RIGHT KNEE Implant Identification Model Number Implant [id number] Identification Serial Number Implant [id number] Identification Lot Number Implant [place] Conformis Conformis Identification Orthopaedics Barrel Rifler Broach Name: Implant [id number] Identification Catalog Number Implant Size Implant Has an Yes Yes Yes Expiration Date Implant Expiration 01/24/22 09/23/22 12/24/21 Date Wasted Radioactive Material Time Implanted Tissue Implant Continue for Tissue Implant Documentation Tissue Identification Number Graft Prep Per Barrel Rifler Broach Instructions: Tissue Preparation Method: Reconstitution Solution: Reconstitution Solution Lot Number Reconstitution Solution Expiration Date: Thawing Solution Thawing Solution Lot Number Thawing Solution Expiration Date Preparation Materials, Other Preparation Materials, Other Lot Number Preparation Materials, Other Expiration Date Tissue Prepared/Processed By Barrel Rifler Broach Paperwork Completed Implant Type Comment Last Modified By: HAYDER EASON RN LONGSWORTH, GARY, HAYDER MASON RN 12/23/20 08:35:18 12/23/20 08:47:19 12/23/20 08:48:23 Entry 4 Entry 5 Entry 6 Type Implant (Synthetic) Implant (Synthetic) Implant (Synthetic) Implant Log Implant Type Hardware Hardware Hardware Tissue Implant Type Implant IMP CR FEM ITOTAL ID TY CR TIB ITOTAL ID KT CR FULL ITOTAL ID Identification [id number] Description Implant Quantity 1 1 1 Implant Site RIGHT KNEE RIGHT KNEE RIGHT KNEE Implant Identification Model Number Implant [id number] Identification Serial Number Implant Identification Lot Number Implant Conformis Conformis Conformis Identification Barrel Rifler Broach Name: Implant [id number] Identification Catalog Number Implant Size Implant Has an Yes Yes Yes Expiration Date Implant Expiration 12/24/21 12/24/21 12/24/21 Date Wasted Radioactive Material Time Implanted Tissue Implant Continue for Tissue Implant Documentation Tissue Identification Number Graft Prep Per Barrel Rifler Broach Instructions: Tissue Preparation Method: Reconstitution Solution: Reconstitution Solution Lot Number Reconstitution Solution Expiration Date: Thawing Solution Thawing Solution Lot Number Thawing Solution Expiration Date Preparation Materials, Other Preparation Materials, Other Lot Number Preparation Materials, Other Expiration Date Tissue Prepared/Processed By Barrel Rifler Broach Paperwork Completed Implant Type Comment Last Modified By: HAYDER EASON RN LONGSWORTH, GARY, RN LONGSWORTH, GARY, RN 12/23/20 08:49:46 12/23/20 08:51:06 12/23/20 08:52:02 [facility] IntraOp Implant Log Audit 12/23/20 08:52:02 Mailroom Courier: LONGGA Modifier: LONGGA <+> 6 Implant Identification Description <+> 6 Implant Identification Serial Number <+> 6 Implant Identification Barrel Rifler Broach Name: <+> 6 Implant Expiration Date <+> 6 Implant Site <+> 6 Implant Quantity <+> 6 Implant Identification Catalog Number <+> 6 Implant Type <+> 6 Implant Has an Expiration Date <+> 6 Type 12/23/20 08:51:06 Mailroom Courier: LONGGA Modifier: LONGGA <+> 5 Implant Identification Description <+> 5 Implant Identification Serial Number <+> 5 Implant Identification Barrel Rifler Broach Name: <+> 5 Implant Expiration Date <+> 5 Implant Site <+> 5 Implant Quantity <+> 5 Implant Identification Catalog Number <+> 5 Implant Type <+> 5 Implant Has an Expiration Date <+> 5 Type 12/23/20 08:49:46 Mailroom Courier: LONGGA Modifier: LONGGA <+> 4 Implant Identification Description <+> 4 Implant Identification Serial Number <+> 4 Implant Identification Barrel Rifler Broach Name: <+> 4 Implant Expiration Date <+> 4 Implant Site <+> 4 Implant Quantity <+> 4 Implant Identification Catalog Number <+> 4 Implant Type <+> 4 Implant Has an Expiration Date <+> 4 Type 12/23/20 08:48:24 Mailroom Courier: LONGGA Modifier: LONGGA <+> 3 Implant Expiration Date 12/23/20 08:48:23 Mailroom Courier: LONGGA Modifier: LONGGA <+> 3 Implant Identification Description <+> 3 Implant Identification Serial Number <+> 3 Implant Identification Barrel Rifler Broach Name: <+> 3 Implant Site <+> 3 Implant Quantity <+> 3 Implant Identification Catalog Number <+> 3 Implant Type <+> 3 Implant Has an Expiration Date <+> 3 Type 12/23/20 08:47:19 Mailroom Courier: LONGGA Modifier: LONGGA <+> 2 Implant Identification Description <+> 2 Implant Identification Lot Number <+> 2 Implant Identification Barrel Rifler Broach Name: <+> 2 Implant Expiration Date <+> [...] By KAYLA ZIMMERMAN JR, JR, ERASMO SILVA, AGRZA ERASMO SILVA JR, WALLACE JR, MD-ORT MD-ORT MD-ORT Procedure Irrigation Irrigant Volume In Irrigant Volume Out Last Modified By: HAYDER EASON RN LONGSWORTH, GARY, RN LONGSWORTH, GARY, RN 12/23/20 08:32:34 12/23/20 08:32:34 12/23/20 08:32:34 Entry 4 Entry 5 Medication/Irrigant lidocaine 1% w/ vancomycin 1Gm vial - epinephrine 1:100,000 [id number] 20ml vial - [id number] Combo Med List 4 - Combo Med Time Administered Route of INJECTION. ADDED TO BONE CEMENT Administration Dose Dose 23.84 1 Unit of Measure ml gram Volume Administered By KAYLA ZIMMREMAN JR, JR, HUFF JR, WALLACE JR, MD-ORT MD-ORT Procedure Irrigation Irrigant Volume In Irrigant Volume Out Last Modified By: HAYDER EASON RN LONGSWORTH, GARY, RN 12/23/20 08:32:34 12/23/20 08:39:42 [facility] IntraOp Medication Admin Audit 12/23/20 08:39:42 Mailroom Courier: LONGGA Modifier: LONGGA <+> 5 Medication/Irrigant <+> [...] JR, MD-ORT, SAMARIA, TARA, URSULA,PAPO, Austen, Stephan, MACHINE STITCHER/AUTOMATIC GRINDING MACHINE OPERATOR Position Verified Positioning Yes Verified by Anesthesia [...] [facility] IntraOp Surgical Procedures Audit 12/23/20 09:51:54 Mailroom Courier: LONGGA Modifier: LONGGA 1 <*> Procedure Knee Total Joint Replacement 1 <+> Stop 12/23/20 08:21:22 Mailroom Courier: LONGGA Modifier: LONGGA <+> 1 Start [facility] IntraOp Temp Regulation Devices Entry 1 Temp Regulation Temperature Warm blankets Regulation Device Temperature Upper body Regulation Site Temperature SAMARIA, TARA, PASTE UP WORKER,WOLF HUNTER Regulation Device Applied by Last Modified By: [...] [facility]JE IntraOp Time Out Audit 12/23/20 08:31:31 Mailroom Courier: YVETTE Modifier: YVETTE 1 <+> Surgeon 1 [...] Padded Under Cuff Applied By Stephan Boyce, MACHINE STITCHER/AUTOMATIC GRINDING MACHINE OPERATOR Times Start Time 12/23/20 08:10:00 Stop Time 12/23/20 08:59:00 Last Modified By: HAYDER EASON RN 12/23/20 09:00:54 [facility] IntraOp Tourniquet Audit 12/23/20 09:00:54 Mailroom Courier: YVETTE Modifier: YVETTE <+> 1 Stop Time Case Comments <None> Finalized By: HAYDER EASON, RN Document Signatures Signed By: HAYDER EASON RN 12/23/20 09:59 documented in this encounter Plan of Treatment Not on file documented as of this encounter Visit Diagnoses Not on filedocumented in this encounter
--- OUTSIDE RECORDS SUMMARY | 2025-01-30 08:55 | XMS_ITS | Encounter Summary ---
Author Organization [employer] ([place], [place], [place], [place], [place]) Address [address] [place] [address] Care Team Providers Care Millwright Name Role Phone Unavailable Primary Care Provider Unavailabl e Encounter Details Date Type Department Care Team (Late st Contact Info) Description 12/23/2020 Transcribed Document [facility] Family Medicine [facility] [place] [address] ProviderJaime MD [address] [place] [address] [phone] Social History Tobacco Use Types Packs/Day Years [...] EDT Chloraseptic Menthol 1.4% topical spray: 5 [place], Oral, [place], Q2H, PRN for Sore Throat, Routine, Start [...] Oral, Q4H phenol 1.4% throat spray 5 [place], Oral, Q2H promethazine 25 mg tab 12.5 [...] HTN, CAD and cancer Procedure history: Cholecystectomy (55379863). Hernia ([id number]). Rotator cuff right ([id number]). Knee left partial ([id number]). right upper thigh boil. lymph node drained from right arm pit. Colonoscopy ([id number]). EGD - Esophagogastroduodenoscopy ([id number]). heart cath. cardiac stent. Social History Patient [...] swelling, No deformity, Normal gait. Integumentary: Warm, [place], Intact, No pallor, No rash, WOUND STABLE. [...] then you may give Tylenol 650 mg PO/NC x 1. If no response in 2 [...]
--- OUTSIDE RECORDS SUMMARY | 2025-01-30 08:55 | XMS_ITS | Encounter Summary ---
Author Organization [employer] ([place], [place], [place], [place], [place]) Address [address] [place] [address] Care Team Providers Care Template Reproduction Technician Name Role Phone Unavailable Primary Care Provider Unavailabl e Encounter Details Date Type Department Care Team (Late st Contact Info) Description 12/23/2020 Transcribed Document [facility] [place] [facility] [place] [address] ProviderJaime MD [address] [place] [address] Social History Tobacco Use Types Packs/Day [...]
--- OUTSIDE RECORDS SUMMARY | 2025-01-30 08:55 | XMS_ITS | Encounter Summary ---
Author Organization [employer] ([place], [place], [place], [place], [place]) Address [address] [place] [address] Care Team Providers Care Chief Projectionist Name Role Phone Unavailable Primary Care Provider Unavailabl e Encounter Details Date Type Department Care Team (Late st Contact Info) Description 12/23/2020 Transcribed Document [facility] [place] [facility] [place] [address] ProviderJaime MD [address] [place] [address] [phone] Social History Tobacco Use Types Packs/Day Years [...] knee 12/23/2020 12:00 Atherosclerotic heart disease of [place] coronary artery without angina pectoris 12/23/2020 12:00 [...] EDT Electronically signed by Adolph Crowder Conversion Insurance Policy Issue Clerk Cerner at 07/09/2022 10:42 AM CDT documented in this encounter Plan of Treatment Not on file documented as of this encounter Visit Diagnoses Not on filedocumented in this encounter
--- OUTSIDE RECORDS SUMMARY | 2025-01-30 08:55 | XMS_ITS | Encounter Summary ---
Author Organization [employer] ([place], [place], [place], [place], [place]) Address [address] [place] [address] Care Team Providers Care Culvert Installer Name Role Phone Unavailable Primary Care Provider Unavailabl e Encounter Details Date Type Department Care Team (Late st Contact Info) Description 12/23/2020 Transcribed Document [facility] [place] [facility] [place] [address] ProviderJaime MD [address] [place] [address] Social History Tobacco Use Types [...] Source : Measured Height Entry Format : [place] Height, Feet : 5 ft(Converted to: 152 cm, 60 Inch) Height, Inches : 9 Inch(Converted to: 0 ft 9 Inch, 22.86 cm) Clinical Height : 175.26 cm Weight Source : Standing scale Weight Entry Format : [place] Clinical Dosing Weight : 96.36 kg Weight, Pounds : 212 lb Body Surface Area (BSA) : 2.12 m2 Body Mass Index : 31.4 kg/m2 (HI) [place] Body Weight : 70 kg Georgie Boyce [...] Boyce RN - 12/23/2020 6:56 EDT [place] Suicide Severity Rating Scale (C-SSRS) CSSRS Past [...] #2 Relationship : . Primary Language : Eritrean Preferred Communication Mode : Verbal Communication Barrier : None Cross Roller Needed : No Georgie Boyce RN - [...]
--- OUTSIDE RECORDS SUMMARY | 2025-01-30 08:55 | XMS_ITS | Encounter Summary ---
Author Organization [employer] ([place], [place], [place], [place], [place]) Address [address] [place] [address] Care Team Providers Care Social Service Manager Name Role Phone Unavailable Primary Care Provider Unavailabl e Encounter Details Date Type Department Care Team (Late st Contact Info) Description 12/23/2020 Transcribed Document [facility] [place] [facility] [place] [address] ProviderJaime MD [address] [place] [address] [phone] Social History Tobacco Use Types Packs/Day Years [...] III /Sex: 1950 Male Med Rec #: [id number] Physician: KAYLA ZIMMERMAN JR, JR, MD-ORT Financial #: [id number] Pt. Type: O Room/Bed: Admit/Disch: 12/23/20 04:16:00 [...] SJAndrey PreOp Case Times Audit 12/23/20 07:46:17 Customs Director: NINO Modifier: [email or web address] <+> 1 Patient Out of Preop Finalized By: Georgie Boyce, RN Document Signatures Signed By: Georgie Boyce RN 12/23/20 07:46 documented in this encounter Plan of Treatment Not on file documented as of this encounter Visit Diagnoses Not on filedocumented in this encounter
--- OUTSIDE RECORDS SUMMARY | 2025-01-30 08:55 | XMS_ITS | Encounter Summary ---
Author Organization [employer] ([place], [place], [place], [place], [place]) Address [address] [place] [address] Care Team Providers Care City Driver Name Role Phone Unavailable Primary Care Provider Unavailabl e Encounter Details Date Type Department Care Team (Late st Contact Info) Description 12/23/2020 Transcribed Document [facility] [place] [address] ProviderJaime MD [address] [place] [address] [phone] Social History Tobacco Use Types Packs/Day Years [...] Treatment Ordered By: KAYLA ZIMMERMAN JR, JR, MD-ORFreeman 12/23/2020 09:24 OT Treatment Instructions Ordered By: KAYLA ZIMMERMAN JR, JR, MD-ORT Active Diagnoses : Unilateral primary osteoarthritis, right knee 12/23/2020 12:00 Atherosclerotic heart disease of [place] coronary artery without angina pectoris 12/23/2020 12:00 [...] - 12/24/2020 6:53 EDT] ) ALEXANDRA KEY OTR/L - 12/24/2020 6:53 EDT Cognition Assessment, OT [...] further inpatient OT services required. ALEXANDRA KEY OTKev/Danny - 12/23/2020 16:[address] [facility] OT Charges OT Selfcare/Hm Mgmt Ea 15 Min : 1 OT Eval Low Complexity : 1 ALEXANDRA KEY OTR/L - 12/23/2020 16:05 EDT documented in this encounter Plan of Treatment Not on file documented as of this encounter Visit Diagnoses Not on filedocumented in this encounter
--- OUTSIDE RECORDS SUMMARY | 2025-01-30 08:55 | XMS_ITS | Encounter Summary ---
Author Organization [employer] ([place], [place], [place], [place], [place]) Address [address] [place] [address] Care Team Providers Care Manager Hi Name Role Phone Unavailable Primary Care Provider Unavailabl e Encounter Details Date Type Department Care Team (Late st Contact Info) Description 12/23/2020 Transcribed Document [facility] [place] [facility] [place] [address] ProviderJaime MD [address] [place] [address] [phone] Social History Tobacco Use Types Packs/Day Years [...] III /Sex: 1950 Male Med Rec #: [id number] Physician: KAYLA ZIMMERMAN JR, JR, MD-ORT Financial #: [id number] Pt. Type: O Room/Bed: Admit/Disch: 12/23/20 04:16:00 - Institution: [facility] Main [place] PostOp Case Times Entry 1 In PACU II 12/23/20 11:13:00 Ready for PACU II 12/23/20 13:49:00 Discharge Discharge from PACU 12/23/20 13:49:00 II Last Modified By: Rosa Montes RN 12/23/20 14:04:05 Finalized By: Rosa Montes, RN Document Signatures Signed By: Rosa Montes RN 12/23/20 14:04 Electronically signed by Lakesha [facility] Conversion Tire Buffer Cerner at 07/09/2022 10:45 AM CDT documented in this encounter Plan of Treatment Not on file documented as of this encounter Visit Diagnoses Not on filedocumented in this encounter
--- OUTSIDE RECORDS SUMMARY | 2025-01-30 08:55 | XMS_ITS | Encounter Summary ---
Author Organization [employer] ([place], [place], [place], [place], [place]) Address [address] [place] [address] Care Team Providers Care Catering Coordinator Name Role Phone Unavailable Primary Care Provider Unavailabl e Encounter Details Date Type Department Care Team (Late st Contact Info) Description 12/23/2020 Transcribed Document [facility] [place] [address] ProviderJaime MD [address] [place], [place] 135261 Social History Tobacco Use Types Packs/Day Years [...]
--- OUTSIDE RECORDS SUMMARY | 2025-01-30 08:55 | XMS_ITS | Encounter Summary ---
Author Organization [employer] ([place], [place], [place], [place], [place]) Address [address] [place] [address] Care Team Providers Care Multimedia Technician Name Role Phone Unavailable Primary Care Provider Unavailabl e Encounter Details Date Type Department Care Team (Late st Contact Info) Description 12/23/2020 Transcribed Document [facility] [facility] [place] [address] ProviderJaime MD [address] [place], [place] [phone] Social History Tobacco Use Types Packs/Day Years Used Date Smoking Tobacco: Never Assessed Sex and Gender Information Value Date Recorded Sex Assigned at Not on file Legal Sex Male 5:28 PM CDT Gender Identity Not on file Sexual Orientation Not on file documented as of this encounter Miscellaneous Notes * Cerner Conversion Note - Jaime ProviderMD - 12/23/2020 8:11 AM CDT [facility] Main [place] PACU Summary Primary Physician: KAYLA ZIMMERMAN JR, JR, MD-ORT Finalized Date/Time: 12/23/20 11:16:13 Pt. Name: AYLEEN BLACK III /Sex: 1950 Male Med Rec #: [id number] Physician: KAYLA ZIMMERMAN JR, JR, MD-ORT Financial #: [id number] Pt. Type: O Room/Bed: Admit/Disch: 12/23/20 04:16:00 - Institution: [facility] OR PACU Case Times Entry 1 In PACU I 12/23/20 09:56:00 Ready for PACU 12/23/20 11:12:00 Discharge Discharge from PACU 12/23/20 11:12:00 I Last Modified By: Janene Helm RN 12/23/20 11:16:01 [facility] Main OR PACU Case Times Audit 12/23/20 11:16:01 Healthcare Economics Manager: KINZA Modifier: CAILINEC 1 <*> Ready for PACU Discharge 12/23/20 10:30:00 1 <+> Discharge from PACU I Finalized By: Janene Helm RN Document Signatures Signed By: Janene Helm RN 12/23/20 11:16 documented in this encounter Plan of Treatment Not on file documented as of this encounter Visit Diagnoses Not on filedocumented in this encounter
--- OUTSIDE RECORDS SUMMARY | 2025-01-30 08:55 | XMS_ITS | Encounter Summary ---
Author Organization [employer] ([place], [place], [place], [place], [place]) Address [address] [place] [address] Care Team Providers Care Customer Program Manager Name Role Phone Unavailable Primary Care Provider Unavailabl e Encounter Details Date Type Department Care Team (Late st Contact Info) Description 12/23/2020 Transcribed Document [facility] Family Medicine [address] [place] [address] ProviderJaime MD [address] [place] [address] [phone] Social History Tobacco Use Types Packs/Day Years [...]
--- OUTSIDE RECORDS SUMMARY | 2025-01-30 08:55 | XMS_ITS | Clinical Summary ---
Author Organization [employer] ([place], [place], [place], [place], [place]) Address [address] [place] [address] Care Team Providers Care Forensic Social Worker Name Role Phone Unavailable Primary Care [...] Date Milton rded Speak language other than Chilean at home Not on file 01/23/2024 Want [...] Plan of Treatment Not on file Insurance [facility] MEDICARE ADVANTAGE
--- OUTSIDE RECORDS SUMMARY | 2025-01-30 08:55 | XMS_ITS | Encounter Summary ---
Author Organization [employer] ([place], [place], [place], [place], [place]) Address [address] [place] [address] Care Team Providers Care Biofuels Technology Manager Name Role Phone Unavailable Primary Care Provider Unavailabl e Encounter Details Date Type Department Care Team (Late st Contact Info) Description 12/23/2020 Transcribed Document [facility] [place] [facility] [place] [address] ProviderJaime MD [address] [place] [address] [phone] Social History Tobacco Use Types Packs/Day Years [...] Performed On: 12/23/2020 14:44 EDT by ANGELA NGUYEN, LUCIE Care Management Progress Note Discharge Arrangements : [...]
--- OUTSIDE RECORDS SUMMARY | 2025-01-30 08:55 | XMS_ITS | Clinical Summary ---
Author Organization Healthcare Address [address] [place] [address] Care Team Providers Care Caretaker Name Role Phone Columba Rodríguez URSULA Primary Care Provider [phone] Shay Biggs MD Unavailable [phone] Allergies Active Allergy Reactions Criticality Noted Date [...] 11/04/2024 Telephone [facility] [address], [address] [place] [address] Baldemar Gibbs MD from Last [...] Wellness (AWV) 1950 [facility]-Infant/Child/Adol SDOH Screenings 1950 [id number] Vaccine (#1) 1957 Diabetes: Dental Exam 1962 [...] Recently Relevant to Health Maintenance Results * [place] Hepatitis C Antibody (02/13/2019 6:35 PM EST) [place] Hepatitis C Ab NEGATIVE Reference Range: Negative [facility] 02/13/2019 6:35 PM EST 02/13/2019 7:06 PM EST us Major Diaz MD LAB BLOOD ORDERABLES Final Re sult [facility] from Last 3 Months or Most Recently Relevant to Health Maintenance Insurance Care Teams Caretaker Relationship Specialty Start Date End Date Columba Rodríguez APRN [address] [place] [address] PCP - General 11/04/24 Shay Biggs MD [address] [facility] [address] [place] [address] Referring Physician Cardiology 11/04/24
--- OUTSIDE RECORDS SUMMARY | 2025-01-30 08:55 | XMS_ITS | Encounter Summary ---
Author Organization [employer] ([place], [place], [place], [place], [place]) Address [address] [place] [address] Care Team Providers Care Prefinish Operator Name Role Phone Unavailable Primary Care Provider Unavailabl e Encounter Details Date Type Department Care Team (Late st Contact Info) Description 12/23/2020 Transcribed Document [facility] Family Medicine Count includes the [facility] [place] [address] ProviderJaime MD [address] [place], [place] [id number] Social History Tobacco Use Types Packs/Day Years [...]
--- NOTE | 2025-01-30 09:15 | CA_ITS ---
APPROVED REPORT EXAM: Comprehensive 2D, Doppler, and color-flow Echocardiogram Nurse Clinician: Iris Elliott RT(R) Ht: 5 ft 9 in Wt: 198lbs BSA: 2.06 BP: 103/63 mmHg Indications: shortness of air Echo Enhancing Agent Indication: Rule out Shunt Agent(s) / Amount(s) Used: Agitated Saline 15 cc 2D Dimensions LVEF (Govea's) 54.50 % M: 52 - 72 LV Volume 114.60 mL M: 62 - 150 LV Volume Index 55.6 mL/m2 M: 34 - 74 LA Volume 21.20 mL LA Volume Index 10.29 mL/m2 (M/F) 16-34 EF AP4 66.20 % EF AP2 38.8 % EF BP 54.5 % GL Strain -15.7 % M-Mode Dimensions RVDd 2.88 cm (0.9-2.6) LA Diam 3.30 cm (1.9-4.0) LVDd 4.27 cm (3.5-5.7) LVDs 2.99 cm (3.5-5.7) IVSd 0.75 cm (0.6-1.1) PWd 0.85 cm (0.6-1.1) EF (Teich) 57.50% FS 30.00% EDV (Teich) 81.70 mL ESV (Teich) 34.70 mL LV Diastology E Decel Time 210 (160-240 msec) E/A Ratio 0.5 Mitral Valve MV E Max Parmjit. 63.0 (40-130 cm/s) MV A Velocity 116.0 (40-130 cm/s) E/A Ratio 0.54 MV PHT 62.0 ms Left Ventricle The left ventricle is normal size. Left ventricular systolic function is normal. The left ventricular ejection fraction is within the normal range. There is normal left ventricular wall thickness. There is normal LV segmental wall motion. The left ventricular diastolic function is normal. LVEF is 55%. Right Ventricle The right ventricle is normal size. The right ventricular systolic function is normal. Atria The left atrium size is normal. The right atrium size is normal. There is no color Doppler evidence of interatrial shunt. Agitated saline administration demonstrates no evidence of interatrial shunt. Aortic Valve The aortic valve opens well. There is no hemodynamically significant aortic valvular stenosis. No aortic regurgitation is present. Mitral Valve The mitral valve is normal in structure. No evidence of mitral valve stenosis. Trace mitral regurgitation is present. Tricuspid Valve The tricuspid valve leaflets are thin and pliable. Trace tricuspid regurgitation. There is insufficient TR jet to estimate RVSP. Pulmonic Valve The pulmonary valve is grossly normal in structure. Trace pulmonic valve regurgitation is present. Great Vessels The aortic root is normal in size. IVC is normal in size and collapses >50% with inspiration. Pericardium There is no pericardial effusion. Other Information Study Quality: Fair Conclusion Normal biventricular systolic function. No significant valvular stenosis or regurgitation. Agitated saline administration demonstrates no evidence of interatrial shunt. Electronically signed by : Amara Mckeon MD 02/10/2025 18:06:50
== END 2025-01-30 23:59 | disposition home or self-care (01) ==
LOC: RT 08:45
PROVIDERS: PCP Family Medicine; Visit Provider Internal Medicine Pulmonary Disease
DX: R06.02 Shortness of breath (principal)
CPT/HCPCS: 93306

== ENCOUNTER 2025-02-04 15:00 | Outpatient (RCR) | payer MEDICARE, SELFPAY | END 2025-02-04 23:59 | disposition home or self-care (01) | LOC: PT 15:00 | PROVIDERS: PCP Family Medicine; Visit Provider Family Medicine | DX: L03.119 Cellulitis of unspecified part of limb (principal) | CPT/HCPCS: 97140 ==

== ENCOUNTER 2025-02-12 08:43 | Day surgery (SDC) | payer MEDICARE, SELFPAY ==
[2025-02-12] VITALS (13 sets, daily range): BP systolic 91–120; BP diastolic 58–81; PULSE 58–82; RESP 16–18; TEMP 37; O2SAT 91–98; BMI 28.6
--- NOTE | 2025-02-12 07:12 | IR_ITS ---
APPROVED REPORT Patient Location: Outpatient PROCEDURES Right heart catheterization left heart catheterization Left ventriculogram Selective coronary angiogram Plain old balloon angioplasty to the distal left main artery extending into the ostial dominant circumflex artery INDICATION Coronary artery disease, Angina pectoralis, Abnormal Myoview, Pulmonary hypertension Informed consent was obtained prior to the procedure. COMPLICATIONS NONE Estimated Blood Loss: LESS THAN 10 ML TECHNIQUE One percent lidocaine was used to anesthetize the right anterior aspect of the right wrist. The right radial artery was accessed via the Seldinger technique and a 6 Mauritian hydrophilic sheath was placed in the right radial artery. Following this one percent lidocaine was used to anesthetize the right anterior aspect of the right neck. The right internal jugular vein was accessed via the Seldinger technique and a 7 Mauritian sheath was placed in the right internal jugular vein. Following this an arterial cocktail was administered using 5000U heparin, 2.5 mg verapamil, 1mg Lidocaine and 800mcg nitroglycerin into the right radial sheath. A JL3 catheter was used to perform left heart catheterization left ventriculogram and selective coronary angiography while a Rosemead-Shasha catheter was used to perform right heart catheterization. Saturations were obtained in the pulmonary artery and right atrium. At the end of the procedure the arterial sheath was removed good hemostasis was achieved using Traclet band. Patient was transferred to the postop holding area in stable condition for venous sheath removal. ANGIOGRAPHIC RESULTS The left main artery Has a stent in the ostial segment which is widely patent free of in-stent restenosis The left anterior descending artery Has a stent originating off the left main artery extending to the mid segment. Proximally there is concentric 40% in-stent restenosis with excellent distal transitioning with the LAD being widely patent The circumflex artery Large and dominant with a stent originating off the left main artery with an ostial concentric 90% stenosis. The stent has distal concentric 40% in-stent restenosis with excellent distal transitioning. The ramus intermedius is ostially occluded The right coronary artery Small nondominant patent The DALTON ventriculogram reveals Preserved 60% The left ventricular end-diastolic pressure Less than 10 mmHg Right atrial pressure 3 mmHg Pulmonary artery pressure 20/10 mmHg Pulmonary artery occlusion pressure 8 mmHg Coronary artery saturation 70% IMPRESSION Severe in-stent restenosis within the ostial dominant circumflex artery with successful plano balloon angioplasty reducing lesion to less than 10% Coronary artery disease as described above Preserved ejection fraction Normal intra cardiopulmonary filling pressures PLAN 1. Continue with dual antiplatelet therapy 2. If patient experiences in-stent restenosis in the circumflex artery he will be referred to the [facility] for brachytherapy 3. Continue risk factor modification 4. Cardiac rehabilitation 5. Avoidance of tobacco products 6. LDL less than 55 to be achieved with high intensity statin Electronically signed by : Shay Biggs MD 02/12/2025 14:20:18
[2025-02-12 09:25] LABS: Hematocrit 36.3 % (42.0-52.0); Hemoglobin 11.2 g/dL (14.1-18.0); Immature Granulocytes % 0.2 %; Mean Corpuscular HGB Conc 30.9 g/dL (31.8-35.4); Mean Corpuscular Hemoglobin 21.3 pg (27.0-31.2); Mean Corpuscular Volume 69.1 fl (80-94); Nucleated Red Blood Cells % 0 %; Platelet Count 284 K/mm3 (142-424); Red Blood Count 5.25 M/mm3 (4.60-6.20); Red Cell Distribution Width-SD 48.7 fL; White Blood Count 5.4 K/mm3 (4.8-10.8)
[2025-02-12 09:47] LABS: Anion Gap 14.8 mEq/L (5-15); Blood Urea Nitrogen 21 mg/dl (9-20); Calcium 9.7 mg/dl (8.4-10.2); Carbon Dioxide 21 mmol/L (22.0-30.0); Chloride 102 mmol/L (98-107); Creatinine Clearance Estimated 55 mL/min (50-200); Creatinine,Serum 1.50 mg/dl (0.66-1.25); Estimated Glomerular Filt Rate 46 ml/min (>60); GFR (African American) 56 ML/MIN (>60); Glucose 140 mg/dl (74-100); Potassium 4.8 mmoL/L (3.5-5.1); Sodium 133 mmol/L (136-145)
[2025-02-12] MEDS: 0.9 % SODIUM CHLORIDE 500 ML 999 ML IV (11:13)
[2025-02-12] MEDS: NITROGLYCERIN 800MCG/8ML SYR (CATH LAB) 800 MCG IA (11:13)
[2025-02-12] MEDS: LIDOCAINE 1% 10ML MDV 10 ML IJ (11:13)
[2025-02-12] MEDS: HEPARIN 1,000 UNITS/ML 10ML VIAL (CATH LAB) 5000 UNIT IV ×2 (11:14→11:46)
[2025-02-12] MEDS: HEPARIN 1,000 UNITS/500ML NS (CATH LAB) 3000 UNIT IV (11:14)
[2025-02-12] MEDS: VERAPAMIL 2.5MG/ML 2ML VIAL 2.5 MG IV (11:14)
[2025-02-12] MEDS: MIDAZOLAM HCL 1MG/ML 5ML VIAL 1 MG IV (11:45)
[2025-02-12] MEDS: FENTANYL 100MCG/2ML VIAL 50 MCG IV (11:45)
[2025-02-12] MEDS: IOPAMIDOL-370 (76%);100ML BOTTLE 60 ML IV (12:11)
[2025-02-12 12:13] LABS: CATHL Activated Clotting Time 290 SEC (74-125)
[2025-02-12 12:13] LABS: CATHL Arterial O2 SAT 70.5 % (90-100)
== END 2025-02-12 14:50 | disposition home or self-care (01) ==
PROVIDERS: PCP Family Medicine; Referring Provider Internal Medicine; Visit Provider Internal Medicine
PROC: 4A023N7 Measurement of Cardiac Sampling and Pressure, Left Heart, Percutaneous Approach (ICD-10-PCS; CPT 93452; principal; 2025-02-12 10:15)
PROC: 4A023N6 Measurement of Cardiac Sampling and Pressure, Right Heart, Percutaneous Approach (ICD-10-PCS; CPT 93451; 2025-02-12 10:15)
DX: I25.119 Atherosclerotic heart disease of native coronary artery with unspecified angina pectoris (principal); T82.855A Stenosis of coronary artery stent, initial encounter; R93.1 Abnormal findings on diagnostic imaging of heart and coronary circulation; R06.02 Shortness of breath; I48.92 Unspecified atrial flutter; I50.30 Unspecified diastolic (congestive) heart failure; I11.0 Hypertensive heart disease with heart failure; E11.621 Type 2 diabetes mellitus with foot ulcer; L97.519 Non-pressure chronic ulcer of other part of right foot with unspecified severity; I25.2 Old myocardial infarction; K21.00 Gastro-esophageal reflux disease with esophagitis, without bleeding; I48.91 Unspecified atrial fibrillation; M06.9 Rheumatoid arthritis, unspecified; I73.9 Peripheral vascular disease, unspecified; J84.9 Interstitial pulmonary disease, unspecified; R42 Dizziness and giddiness; Z22.7 Latent tuberculosis; Z91.81 History of falling; Z95.5 Presence of coronary angioplasty implant and graft; Z79.84 Long term (current) use of oral hypoglycemic drugs; Z79.01 Long term (current) use of anticoagulants; Z79.02 Long term (current) use of antithrombotics/antiplatelets; Z79.85 Long-term (current) use of injectable non-insulin antidiabetic drugs; Z79.623 Long term (current) use of mammalian target of rapamycin (mTOR) inhibitor; Z79.51 Long term (current) use of inhaled steroids; Z79.4 Long term (current) use of insulin; Z88.0 Allergy status to penicillin; Y84.8 Other medical procedures as the cause of abnormal reaction of the patient, or of later complication, without mention of misadventure at the time of the procedure
CPT/HCPCS: 80048; 82810; 85025; 85347; 92920; 93458; 99152; 99153; C1725; C1769; C1887; C1894; J1200; J1644; J2003; J3010; J7040; Q9967

== ENCOUNTER 2025-02-24 08:58 | Outpatient (CLI) | payer MEDICARE, SELFPAY ==
--- OUTSIDE RECORDS SUMMARY | 2025-02-24 09:12 | XMS_ITS | Data Portability ---
Author Organization [facility] Address [address] [place] [address] [address] [place] [address] Assessment Encounter Date Assessment Date Assessment LastModified [...] By Organization Details Last Modified Time 11/23/2018 [id number] shoulder arthritis: exercises [email or web address] Not available 11/29/2018 [...] Details Recorded Time Testicula r hypofunct ion 846009625 Active 2015 From Automated Load;Prov ider: Sg Orourke Jr;St atus: Active Not Available [facility] 7 02:42:07 Reduced libido 2158885 Active 2015 From Automated Load;Prov ider: Sg Orourke Jr;St atus: Active Not Available [facility] 7 06:28:36 Impotence Active 2015 From Automated Load;Prov ider: Sg Orourke Jr;St atus: Active Not Available [facility] 7 07:22:50 Lower urinary tract symptoms due to benign prostatic hypertrop hy 64673742543 101 Active 2015 From Automated Load;Prov ider: Sg Orourke Jr;St atus: Active Not Available [facility] 7 08:26:38 Problem Notes None recorded. Medical Equipment None Reported. Allergies Allergen ID Allergen Name Allergen Category Reaction Reaction Severity Criticality Documentation Date Start Date Code Code System Note Provider Name and Address Organization Details Recorded Time 240452 Product containin g penicilli n (product) medicatio n Not available Not available Not available 05/09/20162014 27926 8001 SNOMED Comme nt: Creat ed By: Annita woods Date: 2014 10:23 :22 AM; Not Available [facility] 7 10:59:12 Medications Name Sig Start Date [...] Updated DateTime 11/23/2018 175.26 cm 33.1 kg/m2 628219.69 g 132/80 mm[Hg] Rebeca Mejias [facility] 11/23/2018 09:33:02 Social History None recorded. [...] Diagnosis SNOMED-CT Code Diagnosis ICD10 Code Diagnosis IMO Codes Diagnosis Note [id number] QM_IMPORTS [place] [address] 07/06/2016 15:48:49 07/06/2016 15:48:49 [id number] Skinny MONDRAGON MD [facility] [address] [place] [address] 11/23/2018 08:51:17 11/27/2018 15:10:20 Localized, primary osteoarthritis of the shoulder region 788277161 M19.019 Health Concerns Section Related Observation LastModified by Organization Detai ls LastModified Time None Recorded Concern Status LastModified by Organization Details LastModified Time None Recorded Advance Directives Directive None Recorded Payers Insurance Date Sequence Insurance Name Policy Number Policy Neal Covered Member ID Neal Member ID Guarantor Name 07/24/2020 1 [employer] (MEDICARE REPLACEMENT/A DVANTAGE - PPO) [id number] Oxford Alford III [id number] [employer] Alford Notes Date Note Type Note Provider Name and Address Organization Details Recorded Time 11/23/2018 text/html The maximal problems are with abduction and rotation and pushing with the arm. Skinny MONDRAGON MD [address] [place], [address], [facility] 11/29/2018 09:27:12
--- OUTSIDE RECORDS SUMMARY | 2025-02-24 09:12 | XMS_ITS | Clinical Summary ---
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 R76.12 (ICD-10-CM ) 09/18 Active 09/18 Imelda Bunny 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 gamma interferon antigen response without active tuberculosis Edema, limb 143307556 (SNOMED CT) 09/21 Resolved 09/21 Imelda Hollis Edema of extremity Right Leg Edema, limb 305234116 (SNOMED CT) 09/21 Removed 09/21 Jer Zhang [...] DAY 2 THROUGH DAY 5 12/19 azithromycin 50360839592 Cinda Rolando BENZONATATE 100 MG CAPS Take 1 capsule by mouth three times a day as needed 12/19 BENZONATATE Cinda Fu TRIAZOLAM 0.25 MG TABS Take 1 tablet by mouth 12/19 triazolam 91246905949 Cinda Fu LORAZEPAM 1 MG TABS Take 1 tablet 12/19 lorazepam 34598184908 Cinda Fu LEVOFLOXACIN 750 MG TABS Take 1 tablet by mouth once a day 12/19 levofloxacin 15202985162 Cinda Rolnado LOSARTAN POTASSIUM 50 MG TABS one tab oral daily 12/19 losartan 04796302241 Cinda Rolando NYSTATIN 267950 UNIT/GM OINT Apply to skin once a day 12/19 nystatin 58514172818 Cinda Fu RIFAMPIN 300 MG CAPS Take 2 by mouth once a day 12/19 rifampin 22889795599 Cinda Rolando CYCLOBENZAPRINE HCL 5 MG TABS one tab oral daily 12/19 cyclobenzaprine 74288720213 Cinda Fu ISONIAZID 300 MG TABS Take 1 tablet by mouth once a day 12/19 isoniazid 80803973487 Cinda PROMETHAZINE-CODEI NE 6.25-10 MG/5ML SYRP Take 5 ml by mouth twice a day 12/19 promethazine-code ine 92579612780 Cinda Fu DICYCLOMINE HCL 10 MG CAPS 1 cap oral twice a day 12/19 dicyclomine 52460443984 Cinda Fu CLOPIDOGREL BISULFATE 75 MG TABS Take 1 tablet by mouth once a day 12/19 clopidogrel 27152925225 Cinda Marshall HYDROCOD POLST-CPM POLST ER 10-8 MG/5ML ORAL SUSPENSION EXTENDED RELEASE Take 1 teaspoon by mouth twice a day 12/19 HYDROCOD POLST-CPM POLST ER 10-8 MG/5ML ORAL SUSPENSION EXTENDED RELEASE Cinda Marshall PLAVIX 75 MG TABS once a day clopidogrel 2497746 7190 Cinda Marshall TRIAZOLAM 0.25 MG TABS Take 1 tablet by mouth 09/24 triazolam 79442907522 Melvin Hartman ISONIAZID 300 MG TABS Take 1 tablet by mouth once a day 12/19 isoniazid 60711137417 Melvin Hartman CLOPIDOGREL BISULFATE 75 MG TABS Take 1 tablet by mouth once a day 12/19 clopidogrel 18041052795 Melvin Hartman LORAZEPAM 1 MG TABS Take 1 tablet 12/19 lorazepam 20976344773 Melvin Hartman NYSTATIN 058026 UNIT/GM OINT Apply to skin once a day 12/19 nystatin 70677196928 Melvin Hartman HYDROCOD POLST-CPM POLST ER 10-8 MG/5ML ORAL SUSPENSION EXTENDED RELEASE Take 1 teaspoon by mouth twice a day 12/19 HYDROCOD POLST-CPM POLST ER 10-8 MG/5ML ORAL SUSPENSION EXTENDED RELEASE Melvin Hartman AZITHROMYCIN 250 MG TABS TAKE 2 TABLETS BY MOUTH ON DAY 1 AND THEN TAKE 1 TABLET BY MOUTH ONCE A DAY ON DAY 2 THROUGH DAY 5 09/24 azithromycin 48377817386 Melvin Hartman RIFAMPIN 300 MG CAPS Take 2 by mouth once a day 09/24 rifampin 51272828966 Melvin Hartman PROMETHAZINE-CODEI NE 6.25-10 MG/5ML SYRP Take 5 ml by mouth twice a day 05/09 promethazine-code ine 09534322768 Melvin Hartman BENZONATATE 100 MG CAPS Take 1 capsule by mouth three times a day as needed 12/19 BENZONATATE Melvin Hartman LEVOFLOXACIN 750 MG TABS Take 1 tablet by mouth once a day 12/19 levofloxacin 24025419771 Melvin Hartman DICYCLOMINE HCL 10 MG CAPS 1 cap oral twice a day 09/24 dicyclomine 87330404643 Melvin Hartman SIMVASTATIN 20 MG TABS one tab oral daily simvastatin 78809631199 Melvin Hartman LOSARTAN POTASSIUM 50 MG TABS one tab oral daily 09/24 losartan 52655258635 Melvin Hartman CYCLOBENZAPRINE HCL 5 MG TABS one tab oral daily 09/24 cyclobenzaprine 65067932293 Melvin Hartman TRAMADOL HCL 50 MG TABS one tab every 6 hours prn tramadol 13154170769 Melvin Hartman METFORMIN HCL 500 MG TABS one tab oral twice a day metformin 39469071842 Melvin Hartman RIFAMPIN 300 MG CAPS take 2 po daily 09/24 RIFAMPIN 91218468499 Jer Zhang MD ISONIAZID 300 MG TABS Take 1 tablet by mouth daily 12/16 ISONIAZID 10281530343 Jer Zhang MD AZITHROMYCIN 250 MG TABS TAKE 2 TABLETS BY MOUTH ON DAY 1 AND THEN TAKE 1 TABLET BY MOUTH ONCE A DAY ON DAY 2 THROUGH DAY 5 09/24 AZITHROMYCIN 54530707281 Gerald Ocasio BENZONATATE 100 MG CAPS TAKE 1 CAPSULE BY MOUTH THREE TIMES DAILY FOR 10 DAYS NEEDED FOR COUGH 12/16 BENZONATATE 99966130367 Gerald Ocasio PROMETHAZINE-CODEI NE 6.25-10 MG/5ML SOLN TAKE 5 ML BY MOUTH TWICE DAILY 12/16 PROMETHAZINE-CODE INE 95239067050 Gerald Ocasio LEVOFLOXACIN 750 MG TABS TAKE 1 TABLET BY MOUTH ONCE DAILY FOR 8 DAYS 12/16 LEVOFLOXACIN 65552569451 Gerald Ocasio CLOPIDOGREL BISULFATE 75 MG TABS TAKE 1 TABLET BY MOUTH ONCE DAILY 12/16 CLOPIDOGREL BISULFATE 07796436572 Gerald D NYSTATIN 822087 UNIT/GM OINT APPLY OINTMENT TOPICALLY ONCE DAILY 12/16 NYSTATIN 73289795994 Gerald D HYDROCOD POLST-CPM POLST ER 10-8 MG/5ML ORAL SUSPENSION EXTENDED RELEASE TAKE 1 TEASPOONFUL (5 ML) BY MOUTH TWICE DAILY MAY CAUSE DROWSINESS 12/16 HYDROCOD POLST-CHLORPHEN POLST 17536851812 Gerald D TRIAZOLAM 0.25 MG TABS TAKE 1 TABLET BY MOUTH 30 MINUTES PRIOR TO MRI ON 09/24 TRIAZOLAM 03607814515 Gerald D LORAZEPAM 1 MG TABS TAKE 1 TABLET 2 HOURS BEFORE MRI FOR ANXIETY 12/16 LORAZEPAM 85163716299 Gerald D Medications Administered No information available. 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
[2025-02-24 09:34] LABS: Hematocrit 36.3 % (42.0-52.0); Hemoglobin 11.2 g/dL (14.1-18.0); Immature Granulocytes % 0.2 %; Mean Corpuscular HGB Conc 30.9 g/dL (31.8-35.4); Mean Corpuscular Hemoglobin 21.5 pg (27.0-31.2); Mean Corpuscular Volume 69.7 fl (80-94); Nucleated Red Blood Cells % 0 %; Platelet Count 322 K/mm3 (142-424); Red Blood Count 5.21 M/mm3 (4.60-6.20); Red Cell Distribution Width-SD 51.3 fL; White Blood Count 5.2 K/mm3 (4.8-10.8)
[2025-02-24 10:19] LABS: Albumin Level 4.3 g/dl (3.5-5.0); Chloride 103 mmol/L (98-107); Sodium 140 mmol/L (136-145)
[2025-02-24 10:20] LABS: Chloride 102 mmol/L (98-107); Potassium 4.6 mmoL/L (3.5-5.1); Sodium 138 mmol/L (136-145)
[2025-02-24 10:20] LABS: Potassium 4.6 mmoL/L (3.5-5.1)
[2025-02-24 10:22] LABS: Alanine Aminotransferase 43 U/L (12-78); Alkaline Phosphatase 95 U/L (38-126); Anion Gap 23.6 mEq/L (5-15); Aspartate Amino Transferase 45 U/L (17-59); Bilirubin,Direct 0.1 mg/dl (0.0-0.4); Bilirubin,Indirect 1.4 mg/dL (0.0-0.9); Bilirubin,Total 1.5 mg/dl (0.2-1.3); Bilirubin,Unconjugated 1.4 mg/dL (0.0-1.1); Blood Urea Nitrogen 25 mg/dl (9-20); Carbon Dioxide 18 mmol/L (22.0-30.0); Cholesterol 96 mg/dl (140-200); Creatinine,Serum 1.50 mg/dl (0.66-1.25); Estimated Glomerular Filt Rate 46 ml/min (>60); GFR (African American) 56 ML/MIN (>60); Phosphorous 3.9 mg/dl (2.5-4.5); Total Protein,Serum 7.2 g/dl (6.3-8.2); Triglycerides 104 mg/dl (30-150)
[2025-02-24 10:23] LABS: Calcium 9.2 mg/dl (8.4-10.2); Glucose 145 mg/dl (74-100); HDL Cholesterol 54 mg/dl (40-60)
[2025-02-24 10:23] LABS: Anion Gap 19.6 mEq/L (5-15); Blood Urea Nitrogen 25 mg/dl (9-20); Calcium 9.1 mg/dl (8.4-10.2); Carbon Dioxide 21 mmol/L (22.0-30.0); Creatinine,Serum 1.60 mg/dl (0.66-1.25); Estimated Glomerular Filt Rate 43 ml/min (>60); GFR (African American) 52 ML/MIN (>60); Glucose 145 mg/dl (74-100)
== END 2025-02-24 23:59 | disposition home or self-care (01) ==
PROVIDERS: Internal Medicine; PCP Family Medicine; Visit Provider Registered Nurse
DX: I25.10 Atherosclerotic heart disease of native coronary artery without angina pectoris (principal); T82.855A Stenosis of coronary artery stent, initial encounter; E78.00 Pure hypercholesterolemia, unspecified
CPT/HCPCS: 36415; 80048; 80061; 80069; 80076; 85025

== ENCOUNTER 2025-03-04 11:35 | Inpatient (IN) | payer MEDICARE, SELFPAY ==
[2025-03-04] VITALS (19 sets, daily range): BP systolic 98–149; BP diastolic 49–92; PULSE 39–175; RESP 12–25; TEMP 36.7–39.2; O2SAT 81–100; BMI 28.8
--- NOTE | 2025-03-04 11:41 | ED_ITS ---
Discharge Plan Disposition Patient Disposition: Admitted Condition: Critical Clinical Impressions Clinical Impression: Severe sepsis, Pneumonia, Atrial flutter, Elevated troponin Discharge ED Provider: Matt Veloz Adult HPI General Chief complaint: Arrhythmia/Palpitations Stated complaint: sent by Cardiology poss. sepsis/afib Time Seen by Provider: 03/04/25 11:40 History of Present Illness HPI narrative: Patient is a 74-year-old male with history of coronary disease s/p PCI and recent brachytherapy at [facility] last Monday. He also has a history of heart failure, last echocardiogram performed 1 month ago demonstrates normal LVEF at 55%. Presents today from cardiology clinic due to concern for tachycardia and fever. Reportedly, patient has had fever and chills for the last couple of days as well as generalized malaise. He reports shortness of breath that has been lasting over the last couple of weeks. Some cough. Also reporting nonbloody diarrhea that began yesterday. Reports nausea without vomiting. Denies any overt chest pain. Denying any dysuria or hematuria. Related Data Home Medications ?Medication ?Instructions ?Recorded ?Confirmed omeprazole 40 mg capsule,delayed 40 mg PO DAILY 03/04/25 release tramadol 50 mg tablet 100 mg PO TIDP PRN Moderate Pain 12/23/24 03/04/25 (Scale Score 5-6) cilostazol 100 mg tablet 100 mg PO BID 02/18/2503/04 finerenone 20 mg tablet 20 mg PO DAILY 02/18/2512/19 albuterol sulfate 90 mcg/actuation 2 puff inhalation Q 4HP PRN 03/04/25 03/04/25 aerosol inhaler Shortness Of Breath cyclobenzaprine 10 mg tablet 10 mg PO Q8HP PRN muscle spasm 03/04/25 03/04/25 famotidine 40 mg tablet 40 mg PO HS 03/04/25 5 lidocaine 5 % topical patch 1 patch topical DAILY 12/1903/04/25 metformin 1,000 mg tablet 1,000 mg PO BID 03/04/2512/19 metoprolol succinate 50 mg 50 mg PO DAILY 03/04/2512/19 tablet,extended release 24 hr ondansetron HCl 4 mg tablet 4 mg PO Q8HP PRN nausea an d 03/04/25 03/04/25 vomiting rivaroxaban 15 mg tablet (Xarelto) 15 mg PO BIDWMEAL 1 05/05/24 03/04/25 tamsulosin 0.4 mg capsule 0.4 mg PO DAILY 03/04/2512/19 Previous Rx's ?Medication ?Instructions ?Recorded atorvastatin 40 mg tablet 40 mg PO HS 30 days #90 tabs 06/25/24 folic acid 1 mg tablet 1 mg PO DAILY #90 tabs 08/05 clopidogrel 75 mg tablet 75 mg PO DAILY #90 tabs 10/25 06/18 Diabetic Shoes (DME) #1 ea 12/04/24 dapagliflozin propanediol 10 mg 10 mg PO DAILY #90 tab s 12/25/24 tablet (Farxiga) fluticasone propionate 50 2 spray intranasal BID 90 da ys #90 12/26/24 mcg/actuation nasal grams spray,suspension (Flonase Allergy Relief) Dexcom G7 Sensor (blood-glucose #9 ea 02/03/25 sensor) Humalog Mix 75-25 KwikPen U-100 20 unit (0.2 mL) SQ BI D #45 mL 02/03/25 insulin 100 unit/mL subcutaneous pen (insulin lispro protamin-lispro) pen needle, diabetic 32 gauge x #100 ea 02/11/25 1/ Mounjaro 2.5 mg/0.5 mL 2.5 mg (0.5 mL) SQ WEEKLY 3 months 02/24/25 subcutaneous pen injector #6 mL (tirzepatide) Allergies Allergy/AdvReac Type Severity Reaction Status Date / Time Penicillins (PENICILLINS) Allergy Unknown I-ITCHING Verified 03/04/25 10:57 [facility] Disclaimer: The information contained in this section may have been updated after the patient was seen, as this information can be updated by other users. Medical History Short of breath on exertion (HFpEF) heart failure with preserved ejection fraction GERD (gastroesophageal reflux disease) COVID URI (upper respiratory infection) Pre-ulcerative calluses Thyromegaly Eustachian tube dysfunction Bilateral tinnitus Dysphagia Throat tightness Acquired lymphedema Hematoma of left lower leg Cellulitis of lower leg Dyspnea on exertion ILD (interstitial lung disease) Left renal mass Acute nontraumatic kidney injury Hypomagnesemia Elevated brain natriuretic peptide (BNP) level Dyspnea Elevated troponin Chronic GERD Orthostatic hypotension Dizziness Atypical angina Cellulitis of right leg Vocal cord edema Ringing in right ear Chronic hoarseness Globus sensation Vertigo Recurrent vertigo upon turning head toward the left associated with tinnitus. 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 Seen by pulmonology at [facility] and prescribed INH, RFP, B6 but he never took the medicine as prescribed Restrictive lung disease Left sided abdominal pain Left shoulder strain Left groin pain Claustrophobia Chronic cough Cognitive complaints 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, word finding difficulty Edema of both lower extremities Decreased pedal pulses Non-healing ulcer of foot Right 3rd distal tip DFU Decreased ROM of right shoulder Right shoulder pain Right shoulder injury Pes planus of both feet Skin lesion Impotence Low back pain Left against medical advice Memory loss Chronic SI joint pain Radiculopathy Neuropathic pain Leg pain, posterior Kidney stone Ingrown toenail of right foot Splinter of toe of left foot Pain of left great toe Cellulitis of great toe of right foot Acute bacterial bronchitis Incurved toenail Diabetes mellitus HA1c- 7.3% 06/06/24 Onychomycosis Pain in both feet Callus of foot Diabetic foot ulcer Acute febrile illness SIRS (systemic inflammatory response syndrome) Left against medical advice Lower extremity edema Epistaxis Encounter for pre-operative cardiovascular clearance Sepsis Urinary incontinence Weakness Cellulitis, leg Obesity (BMI 30-39.9) Acute delirium Cellulitis Severe sepsis SIRS (systemic inflammatory response syndrome) Physical deconditioning Bacterial pneumonia Hypokalemia Bronchitis due to COVID-19 virus Pneumonia due to COVID-19 virus COVID-19 virus infection Exposure to COVID-19 virus Viral syndrome Acute bronchitis Hematuria Kidney stone on right side Multiple renal cysts Cough Diastolic dysfunction Mental status change resolved HTN (hypertension) Dyspnea SOB (shortness of breath) HHD (hypertensive heart disease) Pre-op evaluation Microalbuminuria Enlarged prostate History of IBS Diabetes Surgical History History of cardiac cath History of total right knee replacement History of rotator cuff surgery History of coronary artery stent placement History of cholecystectomy Hx of total knee arthroplasty Family History Other Cancer Cerebral palsy Dementia Diabetes Social History Smoking Status: Never smoker alcohol intake: never counseling provided: none substance use type: denies use current occupational status: employed and retired Travel in the last 8 weeks?: None household members: spouse housing: house caffeine: Yes Have you lived/traveled outside [place] in past 30 days?: No Contact w/someone who lives/traveled outside US past 30 days?: No Exposure to someone with infectious disease in past 14 days?: No Do you have a fever (greater than 100.4 F or 38 C)?: No Have you tested positive for COVID-19?: No Exposed to someone with COVID-19 in past 14 days?: No Do you have a sore throat?: No Do you have a cough?: No Do you have any weakness?: No Do you have any diarrhea?: No Are you experiencing any unusual bleeding?: No Do you have any muscle aches/pain?: No Do you have any abdominal pain?: No Are you experiencing loss of taste or smell?: No Other Medical History Have you received the Flu Vaccine for this season: No Have you received the Pneumonia Vaccine: No ROS Obtained: Yes All systems reviewed & no additional complaints except as documented Physical Exam General General appearance: alert, in distress and obese Head Head exam: atraumatic and normocephalic Eye Eye exam: Present PERRL and EOMI ENT ENT exam: Present normal oropharynx and mucous membranes dry Neck Neck exam: Present full ROM and trachea midline Chest Chest inspection: Present symmetric chest wall rise Respiratory Respiratory exam: Present respiratory distress (Tachypneic) and other ( Distant breath sounds bilaterally); Absent wheezes or stridor Cardiovascular Cardiovascular exam: Present tachycardia and irregular rhythm Abdominal Exam Abdominal exam: Present soft; Absent distention or tenderness Extremities Exam Extremities exam: Present full ROM Neurological Exam Neurological exam: Present alert and oriented X3 Psychiatric Psychiatric exam: Present normal mood Skin Skin exam: Present warm, dry, pallor and other (Greater than 3 send capillary refill with diminished perfusion in the extremities) Other Other exam information: Bilateral lower extremity edema, 3+ on the right, 2+ on the left Medical Decision Making Medical Records Screening: Per USPSTF and CDC recommendations, given the prevalence of disease in our region, it is our hospital?s policy to screen for HIV and viral Hepatitis for all patients aged 18 and over and those with ongoing risk factors. Jevno Inquiry Pt receiving controlled substance: No Vital Signs: 03/04/25 11:51 03/04/25 12:02 03/04/25 12:22 Temperature 102.5 F H Temperature Source Rectal Pulse Rate 166 H 139 H Pulse Rate [Right Radial] 175 H Respiratory Rate 22 17 Blood Pressure 123/77 131/78 Blood Pressure [Right Arm] 123/77 Blood Pressure Mean [Right Arm] 92 Blood Pressure Source [Right Arm] Automatic Cuff Blood Pressure Position [Right Arm] Supine 02 Sat by Pulse Oximetry 100 99 96 Oxygen Delivery Method Room Air Room Air Room Air 03/04/25 12:31 03/04/25 13:01 03/04/25 13:32 Temperature Temperature Source Pulse Rate 125 H 126 H 137 H Pulse Rate [Right Radial] Respiratory Rate 21 13 14 Blood Pressure 125/68 115/68 100/49 L Blood Pressure [Right Arm] Blood Pressure Mean [Right Arm] Blood Pressure Source [Right Arm] Blood Pressure Position [Right Arm] 02 Sat by Pulse Oximetry 97 96 97 Oxygen Delivery Method Room Air Room Air Room Air 03/04/25 13:58 03/04/25 14:00 03/04/25 14:45 Temperature 98.6 F Temperature Source Oral Pulse Rate 115 H 103 H Pulse Rate [Right Radial] Respiratory Rate 13 12 Blood Pressure 100/59 L 100/64 L Blood Pressure [Right Arm] Blood Pressure Mean [Right Arm] Blood Pressure Source [Right Arm] Blood Pressure Position [Right Arm] 02 Sat by Pulse Oximetry 98 97 Oxygen Delivery Method Room Air Room Air 03/04/25 15:00 Temperature Temperature Source Pulse Rate 103 H Pulse Rate [Right Radial] Respiratory Rate 14 Blood Pressure 110/68 Blood Pressure [Right Arm] Blood Pressure Mean [Right Arm] Blood Pressure Source [Right Arm] Blood Pressure Position [Right Arm] 02 Sat by Pulse Oximetry 96 Oxygen Delivery Method Room Air Lab Data Lab Results 03/04/25 11:48: WBC 8.0, RBC 4.87, Hgb 10.7 L, Hct 33.2 L, MCV 68.2 L, MCH 22.0 L, MCHC 32.2, RDW 21.2 H, Plt Count 300, MPV 9.8, Neut % (Auto) 71.0, Lymph % (Auto) 15.4, [place]eton % (Auto) 12.9 H, Eos % (Auto) 0.1, Baso % (Auto) 0.3, Neut # (Auto) 5.7, Lymph # (Auto) 1.2, [place] # (Auto) 1.0, Eos # (Auto) 0.0, Baso # (Auto) 0.0, PT 12.2, INR 1.11 H, VBG pH 7.45 H, VBG pCO2 25.9 L, VBG pO2 27.5 L, VBG HCO3 17.4 L, VBG Total CO2 18.2 L, VBG O2 Saturation 53.9, VBG Base Excess - 6.6 L, VBG Lactic Acid 4.1 H, Sodium 136, Potassium 3.4 L, Chloride 99, Carbon Dioxide 17 L, Anion Gap 23.4 H, BUN 19, Creatinine 1.60 H, Estimated Creat Clear 52, Estimated GFR 43 L, Est GFR ( Amer) 52 L, Glucose 261 H, Lactate 3.8 H, Calcium 8.9, Phosphorus 2.8, Magnesium 1.8, Total Bilirubin 1.9 H, AST 66 H, ALT 55, Alkaline Phosphatase 114, Troponin I 0.62 H, NT-Pro-B Natriuret Pep 4160 H, Total Protein 8.0, Albumin 4.6, Globulin 3.4 H, Albumin/Globulin Ratio 1.4, Lipase 75, TSH 1.24, Free T4 1.41 03/04/25 12:15: SARS-CoV-2 (PCR) Not detected, Influenza A Untype (PCR) Not detected, Influenza Type B (PCR) Not detected 03/04/25 11:48 03/04/25 11:48 Orders (Tests/Meds): ED MEDICATIONS Generic Name Dose Route Start Last Admin Trade Name Freq PRN Reason Stop Dose Admin Acetaminophen 650 mg 03/04/25 13:53 Acetaminophen 325mg Tab PO 04/03/25 13:52 Q4HP PRN Fever or Mild Pain (1-3) Amiodarone HCl 900 mg/ 518 mls @ 34.533 mls/hr 03/04/25 13:23 03/04/25 14:08 Dextrose IV 03/05/25 04:23 1 mg/min .Q15H1M [facility] 34.53 mls/hr Protocol Administration 1 MG/MIN Potassium Chloride/Water 100 mls @ 100 mls/hr 03/04/25 13:39 Potassium Chloride 10meq/100ml Ivpb IV 03/04/25 15:38 Q1H [facility] Insulin Human Lispro 0 unit 03/04/25 16:30 Humalog 100 Units/Ml 10ml Vial (Ssi) SUBCUT 04/03/25 16:29 ACHS [facility] Protocol Nicotine 21 mg 03/04/25 13:53 Nicotine 21mg/24hr Patch TD 04/03/25 13:52 DAILYP PRN Nicotine Cravings Discontinued Medications Generic Name Dose Route Start Last Admin Trade Name Freq PRN Reason Stop Dose Admin Acetaminophen 1,000 mg 03/04/25 11:58 03/04/25 12:20 Acetaminophen 1,000mg/100ml Vial IV 03/04/25 11:59 1,000 mg ONCE ONE Administration Lactated Ringer's 1,000 mls @ 999 mls/hr 03/04/25 11:58 03/04/25 13:57 Lactated Ringer's 1000 Ml Bag IV 03/04/25 12:58 Infused .Q1H1M ONE Infusion Cefepime HCl 2 gm/ Sodium 100 mls @ 200 mls/hr 03/04/25 12:16 03/04/25 13:16 Chloride IV 03/04/25 12:45 Infused ONCE ONE Infusion Metronidazole 500 mg in 100 mls @ 100 mls/hr 03/04/25 12:16 03/04/25 13:57 Flagyl 500mg/100ml Ivpb IV 03/04/25 13:15 Infused ONCE ONE Infusion Vancomycin/PEG/NADA/Lysine/Water 1.5 gm in 300 mls @ 150 mls/hr 03/04/25 12:30 03/04/25 13:24 Vancomycin 1.5gm/300ml (Peg) Premix IV 03/04/25 14:29 150 mls/hr ONCE ONE Administration Amiodarone HCl 150 mg/ 103 mls @ 618 mls/hr 03/04/25 13:23 03/04/25 14:08 Dextrose IV 03/04/25 13:32 Infused ONCE ONE Infusion Protocol Iopamidol 80 ml 03/04/25 12:51 03/04/25 12:52 Iopamidol-370 (76%);100ml Bottle IV 03/04/25 12:52 80 ml ONCE ONE Administration Miscellaneous 1 each 03/04/25 12:30 Vancomycin Consult Request NOTAPPLIC 04/03/25 12:29 CONSULT PHARMACY [facility] Ondansetron HCl 4 mg 03/04/25 11:58 03/04/25 12:20 Ondansetron 4mg/2ml Vial IV 03/04/25 11:59 4 mg ONCE ONE Administration Sodium Chloride 50 ml 03/04/25 12:51 03/04/25 12:52 0.9 % Sodium Chloride 50 Ml Vial IV 03/04/25 12:52 50 ml ONCE ONE Administration Sodium Chloride 10 ml 03/04/25 12:51 03/04/25 12:52 Sodium Chloride 0.9% 10ml Syr (Rad Only) IV 03/04/25 12:52 10 ml ONCE ONE Administration ORDERS Category Date Time Status CT abdomen pelvis w con Stat Cat Scan 03/04/25 11:59 Completed CTA Chest [CT angio chest PE protocol] Stat Cat Scan 03/04/25 11:59 Completed Cardiology Consult [Consult to Cardiology] [CONS] Cons 03/04/25 13:53 Active Routine BNP [NT Pro Brain Natriuretic Pep.] Stat Lab 03/04/25 11:48 Completed CBC w/Auto Diff [Complete Blood Count Auto Diff] Stat Lab 03/04/25 11:48 Completed CMP [Comprehensive Metabolic Panel] Stat Lab 03/04/25 11:48 Completed Complete Blood Count Auto Diff AMLAB Lab 03/05/25 06:00 Ordered Comprehensive Metabolic Panel AMLAB Lab 03/05/25 06:00 Ordered Free T4 (Free Thyroxine) Stat Lab 03/04/25 11:48 Completed Lactic Acid Stat Lab 03/04/25 11:48 Completed Lipase Stat Lab 03/04/25 11:48 Completed MAG [Magnesium] Stat Lab 03/04/25 11:48 Completed Magnesium AMLAB Lab 03/05/25 06:00 Ordered PHOS [Phosphorous] Stat Lab 03/04/25 11:48 Completed PT INR [Prothrombin Time INR] Stat Lab 03/04/25 11:48 Completed Rapid PCR Covid and Flu A/B Stat Lab 03/04/25 12:15 Completed TSH [Thyroid Stimulating Hormone] Stat Lab 03/04/25 11:48 Completed Trop I [Troponin I] Stat Lab 03/04/25 11:48 Completed Troponin I Q3H Lab 03/04/25 15:03 Received Troponin I Q3H Lab 03/04/25 18:00 Ordered UA [Urinalysis and Microscopic] Stat Lab 03/04/25 12:25 Ordered Blood Culture Stat Micro 03/04/25 11:48 Received Urine Culture Stat Micro 03/04/25 12:25 Received VBG [Venous Blood Gas] Stat RT 03/04/25 11:48 Completed ECG Data Tracing #1: Independently interpreted by myself to demonstrate atrial flutter versus SVT at a rate of [address] depression in the anterior lateral precordium which is likely reactive secondary to the tachycardia. On repeat EKG, remains in atrial flutter with RVR at a rate of 132. No obvious acute ischemia. Tissue Perfus/Sepsis Re-Eval Sepsis Re-Evaluation Performed: Yes Date Performed: 03/04/25 Time Performed: 15:37 HEART Score History (anamnesis): Moderately suspicious ECG: Non-specific disturbance Age: >65 years Risk factors: Atherosclerosis history Troponin: > 3x normal limit HEART Score: 8 Medical Decision Narrative: Patient is a 74-year-old male with history of coronary disease s/p brachytherapy last week at [facility]. He arrives critically ill. On arrival, he is tachycardic to 170, tachypneic to 40, febrile to 103, with normal blood pressures. On exam, he is warm, but does show signs of diminished perfusion with great increase in capillary refill in the distal extremities. Full and equal pulses in bilateral upper extremities. He does have 3+ pitting edema in th right lower extremity and 2+ in the left. Family reports that this is chronic, though does raise suspicion for DVT and PE we will proceed with cross- sectional imaging of the chest given tachycardia., Also high suspicion for sepsis given fever tachycardia tachypnea. Lactate is also elevated at 4, meeting criteria for severe sepsis. Blood cultures obtained and broad-spectrum antibiotics begun. Administered initial crystalloid bolus, but will defer further than that given elevated BNP and signs of volume overload with bilateral lower extremity edema. On reassessment after initial crystalloid and beginning of IV antibiotics, patient has improved perfusion. Mild anemia with a hemoglobin of 10, mild alkalosis likely secondary to tachypnea, compensating for his elevated lactate. Mild hypokalemia, repleted. Creatinine at baseline at 1.60, repeat lactate 3.8. No other significant electrolyte derangement. Troponin is notably elevated at 0.62, likely secondary to demand ischemia, BNP elevated to 4100. Holt reasonable to consult cardiology given elevated troponin and tachydysrhythmia. After fluid resuscitation, patient's heart rate was improving down to the 120s and 130s up down from the 170s. He reports that he feels much better symptomatically after getting antipyretics and fluids. Cardiology recommends amnio bolus and drip. This has begun. Holt reasonable to consult hospitalist for admission. Ultimately, Dr. Palacio agrees to admit for further workup or definitive management. Patient be transferred in mildly tachycardic, but otherwise stable condition. Critical Care Critical Care Time Critical Care Time: Yes Attestation: On 03/04/25, the high probability of a clinically significant, sudden or life threatening deterioration of the following system(s) required my full and direct attention, intervention and personal management. The time I documented below is in addition to time spent performing reported procedures but includes the following listed in this critical care notation. Total Time Total Critical Care Time: 37
--- NOTE | 2025-03-04 11:43 | ECG_ITS ---
APPROVED REPORT Exam: Resting ECG HR:171 bpm ECG Measurements Heart Rate 171 AXES QRSd 85 QRS 69 QT 243 T -72 QTc 336 Conclusion SUPRAVENTRICULAR TACHYCARDIA ST DEVIATION AND MODERATE T-WAVE ABNORMALITY, CONSIDER LATERAL ISCHEMIA [-0.1+ mV T-WAVE IN I/aVL/V5/V6] ST DEVIATION AND MODERATE T-WAVE ABNORMALITY, CONSIDER INFERIOR ISCHEMIA [-0.1+ mV T-WAVE IN II/aVF] ST abnormality likely related to tachycardia, no STEMI Electronically signed by : ERNIE BARNARD, 03/06/2025 03:13:55
--- NOTE | 2025-03-04 11:59 | CT_ITS ---
PROCEDURE INFORMATION: Exam: CTA Chest With Contrast Exam date and time: 03/04/2025 12:42 PM Age: 74 years old Clinical indication: Fever and shortness of breath and tachypnea; Additional info: Tachy, SOB, rle edema, fever TECHNIQUE: Imaging protocol: Computed tomographic angiography of the chest with contrast. Exam focused on the arteries. 3D rendering (Not supervised by radiologist): MIP and/or 3D reconstructed images were created by the technologist. Radiation optimization: All CT scans at this facility use at least one of these dose optimization techniques: automated exposure control; mA and/or kV adjustment per patient size (includes targeted exams where dose is matched to clinical indication); or iterative reconstruction. Contrast material: ISOVUE 370; Contrast volume: 80 ml; Contrast route: INTRAVENOUS (IV); COMPARISON: CT ANGIO CHEST PE PROTOCOL 10/31/2024 4:18 PM FINDINGS: Pulmonary arteries: The main pulmonary artery at the level of the right pulmonary artery measures 2.4 cm. No evidence of acute pulmonary embolism upto the subsegmental level. Aorta: The ascending aorta at the level of the right pulmonary artery measures 3.2 cm. Mild atherosclerotic calcifications affect the aorta and its branches. Lungs: Patchy ground-glass opacities in both lungs likely represent edema or infection. Pleural spaces: Unremarkable. No pneumothorax. No pleural effusion. Heart: Unremarkable. No cardiomegaly. No pericardial effusion. Coronary arteries: Coronary artery calcifications are noted. Lymph nodes: Unremarkable. No enlarged lymph nodes. Diaphragm: Moderate hiatal hernia. Bones/joints: Unremarkable. No acute fracture. Soft tissues: Unremarkable. IMPRESSION: 1. Patchy ground-glass opacities in both lungs likely represent edema or infection. 2. No evidence of acute pulmonary embolism upto the subsegmental level.
--- NOTE | 2025-03-04 11:59 | CT_ITS ---
PROCEDURE INFORMATION: Exam: CT Abdomen And Pelvis With Contrast Exam date and time: 03/04/2025 12:42 PM Age: 74 years old Clinical indication: Abdominal pain; Generalized; Additional info: Abd dist, pain, sepsis, n/v/d TECHNIQUE: Imaging protocol: Computed tomography of the abdomen and pelvis with contrast. 3D rendering (Not supervised by radiologist): MIP and/or 3D reconstructed images were created by the technologist. Radiation optimization: All CT scans at this facility use at least one of these dose optimization techniques: automated exposure control; mA and/or kV adjustment per patient size (includes targeted exams where dose is matched to clinical indication); or iterative reconstruction. Contrast material: ISOVUE; Contrast volume: 80 ml; Contrast route: IV; COMPARISON: CT ABDOMEN PELVIS WO/W CON 10/22/2024 8:44 AM FINDINGS: Liver: Lesion measuring 1.9 cm in the right lobe of the liver adjacent to the cholecystectomy clips. Gallbladder and biliary ducts: Cholecystectomy clips are seen. Pancreas: Normal. No ductal dilation. Spleen: Normal. No splenomegaly. Adrenal glands: Normal. No mass. Kidneys and ureters: Hyperdense cysts in the right kidney the largest measuring 1.6 cm. Hyperdense cyst in the left kidney the largest measuring 2 cm. Stomach and bowel: Scattered diverticula affect the colon. Appendix: No evidence of appendicitis. Intraperitoneal space: No evidence of free air in the abdomen. Vasculature: Mild atherosclerotic calcifications affect the aorta and its branches. Lymph nodes: Unremarkable. No enlarged lymph nodes. Urinary bladder: Unremarkable as visualized. Reproductive: Unremarkable as visualized. Bones/joints: Moderate degenerative changes affect the spine. Soft tissues: Unremarkable. IMPRESSION: 1. Lesion measuring 1.9 cm in the right lobe of the liver adjacent to the cholecystectomy clips. This finding may represent fatty infiltration. Malignancy is not entirely excluded. However CT triple phase protocol is recommended for further evaluation. 2. Hyperdense cysts in both kidneys may represent hemorrhagic or proteinaceous cyst. Evaluation for enhancement is limited as noncontrast study is not available. Malignancy is not entirely excluded. COMMENTS: Consistent with the [employer]'s Incidental Findings Committee white paper (J Am Danielito Radiol 2018): Any incidental renal lesion less than 1 cm or classified as too small to characterize, or any incidental cystic renal lesion characterized as simple-appearing, is likely benign. No follow-up imaging is recommended for these lesions per consensus recommendations based on imaging criteria.
[2025-03-04 12:11] LABS: VBG HCO3 17.4 mmol/L (23-30); VBG PCO2 25.9 mmol/L (35-51); VBG PH 7.45 mmol/L (7.31-7.41); VBG PO2 27.5 mmol/L (28-40)
[2025-03-04 12:14] LABS: Hematocrit 33.2 % (42.0-52.0); Hemoglobin 10.7 g/dL (14.1-18.0); Immature Granulocytes % 0.3 %; Mean Corpuscular HGB Conc 32.2 g/dL (31.8-35.4); Mean Corpuscular Hemoglobin 22.0 pg (27.0-31.2); Mean Corpuscular Volume 68.2 fl (80-94); Nucleated Red Blood Cells % 0 %; Platelet Count 300 K/mm3 (142-424); Red Blood Count 4.87 M/mm3 (4.60-6.20); Red Cell Distribution Width-SD 49.6 fL; White Blood Count 8.0 K/mm3 (4.8-10.8)
[2025-03-04 12:16] LABS: Albumin Level 4.6 g/dl (3.5-5.0); Chloride 99 mmol/L (98-107); Lactate Venous 4.1 mmol/L (0.4-2.0); Sodium 136 mmol/L (136-145)
[2025-03-04 12:17] LABS: Potassium 3.4 mmoL/L (3.5-5.1)
[2025-03-04 12:18] LABS: Coronavirus 19, PCR Not Detected (NotDetected); Influenza A, PCR Not Detected (NotDetected); Influenza B, PCR Not Detected (NotDetected)
[2025-03-04 12:19] LABS: Alanine Aminotransferase 55 U/L (12-78); Alkaline Phosphatase 114 U/L (38-126); Anion Gap 23.4 mEq/L (5-15); Aspartate Amino Transferase 66 U/L (17-59); Bilirubin,Total 1.9 mg/dl (0.2-1.3); Blood Urea Nitrogen 19 mg/dl (9-20); Carbon Dioxide 17 mmol/L (22.0-30.0); Creatinine Clearance Estimated 52 mL/min (50-200); Creatinine,Serum 1.60 mg/dl (0.66-1.25); Estimated Glomerular Filt Rate 43 ml/min (>60); GFR (African American) 52 ML/MIN (>60); Lipase 75 U/L (23-300); Magnesium 1.8 mg/dl (1.6-2.3); Phosphorous 2.8 mg/dl (2.5-4.5)
[2025-03-04 12:20] LABS: Albumin/Globulin Ratio 1.4 (1.1-1.8); Calcium 8.9 mg/dl (8.4-10.2); Globulin 3.4 g/dL (1.3-3.2); Glucose 261 mg/dl (74-100); Total Protein,Serum 8.0 g/dl (6.3-8.2)
[2025-03-04] MEDS: LACTATED RINGERS 1000ML 1,000 ML 999 ML IV (12:20)
[2025-03-04] MEDS: ACETAMINOPHEN 1,000MG/100ML VIAL 1000 MG IV (12:20)
[2025-03-04] MEDS: ONDANSETRON 4MG/2ML VIAL 4 MG IV (12:20)
--- NOTE | 2025-03-04 12:20 | PC.NURSE ---
provider states not doing sepsis bolus due to BLE swelling.
[2025-03-04 12:21] LABS: INR 1.11 (0.9-1.1); Prothrombin Time 12.2 seconds (10.1-12.5)
[2025-03-04] MEDS: METRONIDAZ/SOD CHL 500 MG/100 ML PIGGYBACK 100 MG IV (12:30)
[2025-03-04] MEDS: CEFEPIME HCL 2 GM in 0.9 % SODIUM CHLORIDE 100 ML IV (12:30)
[2025-03-04] MEDS: IOPAMIDOL-370 (76%);100ML BOTTLE 80 ML IV (12:52)
[2025-03-04] MEDS: 0.9 % SODIUM CHLORIDE 50 ML VIAL IV (12:52)
[2025-03-04] MEDS: SODIUM CHLORIDE 0.9% 10ML SYR (RAD ONLY) 10 ML IV (12:52)
[2025-03-04 13:03] LABS: NT Pro Brain Natriuretic Pep. 4160 pg/mL (0-125)
[2025-03-04 13:17] LABS: Troponin I 0.62 ng/ml (0.00-0.034)
[2025-03-04] MEDS: VANCOMYCIN/WATER FOR INJ (PEG) 1.5 GM/300 ML PIGGYBACK IV (13:24)
[2025-03-04 13:26] LABS: Thyroid Stimulating Hormone 1.24 uIU/mL (0.465-4.68)
--- NOTE | 2025-03-04 13:27 | HMH.PHAINT1 ---
Pharmacy Intervention Comments: MEDICATION RECONCILIATION COMPLETED ON PATIENT USING EXTERNAL FILL HISTORY FROM PHARMACY AND LIST FROM CARDIOLOGY/PCP/ENDOCRINOLOGY OFFICES. -ROYAL ERVIND
--- NOTE | 2025-03-04 13:33 | ECG_ITS ---
APPROVED REPORT Exam: Resting ECG HR:132 bpm ECG Measurements Heart Rate 132 AXES QRSd 89 QRS 60 QT 296 T -83 QTc 374 Conclusion ATRIAL FLUTTER/TACHYCARDIA WITH RAPID VENTRICULAR RESPONSE ST DEVIATION AND MODERATE T-WAVE ABNORMALITY, CONSIDER LATERAL ISCHEMIA [-0.1+ mV T-WAVE IN I/aVL/V5/V6] ST DEVIATION AND MODERATE T-WAVE ABNORMALITY, CONSIDER INFERIOR ISCHEMIA [-0.1+ mV T-WAVE IN II/aVF] ABNORMAL ECG Suspect ST abnormalities are related to rate, no STEMI. Electronically signed by : ERNIE BARNARD, 03/06/2025 03:17:36
[2025-03-04] MEDS: AMIODARONE HCL 150 MG in DEXTROSE 5 % IN WATER 100 ML 618 MG IV (13:47)
[2025-03-04 13:51] LABS: Free T4 (Free Thyroxine) 1.41 ng/dl (0.78-2.19)
--- NOTE | 2025-03-04 13:55 | PC.NURSE ---
notified of pt meeting criteria for sepsis bolus. Pt has received 1L of LR. stated to hold additional fluids.
--- NOTE | 2025-03-04 13:55 | PC.NURSE ---
supervisor finishing contacted for bed.
--- NOTE | 2025-03-04 13:55 | EXP.HP ---
History of Present Illness *Admission Date: 03/04/25 *Reason for visit:: Febrile, tachycardia, short of breath *History of present illness: Mr. Alford is a 74-year-old male with significant CAD history, A-fib, GERD., Diabetes, on chronic anticoagulation. He initially presented to cardiology for follow-up after PCI with recent brachytherapy at [facility] last Monday in [place] on arrival to cardiology clinic, patient found to be tachycardic, febrile, concern for sepsis. Was sent to the ER for further evaluation. On arrival to the ER, patient's temperature was 102.5, heart rate in the 160s. On room air. Initial workup with white count of 8, patient does report fever and chills for the last few days at home and has not felt well since his brachytherapy. Reports some shortness of breath worse over the past few weeks. Also complains of nonbloody diarrhea that began yesterday. Some nausea but no emesis. Denies productive cough. No dysuria. Further workup showed stable kidney function with BUN 19, creatinine 1.6. In light of his atrial flutter, cardiology was consulted and recommended amiodarone drip. Initiated on empiric antibiotics for suspected sepsis versus SIRS. Cultures obtained. Medicine consulted for admission and further management. On arrival to the floor, patient is feeling a little bit better after his fever broke with Tylenol. On room air. Still feels quite ill. Reports increased welling in his legs but also reports chronic lymphedema. Alert and oriented on exam. [facility] Disclaimer: The information contained in this section may have been updated after the patient was seen, as this information can be updated by other users. Medical History (Updated 03/05/25 @ 00:16 by De Palacio MD) NSTEMI (non-ST elevated myocardial infarction) Short of breath on exertion (HFpEF) heart failure with preserved ejection fraction GERD (gastroesophageal reflux disease) COVID URI (upper respiratory infection) Pre-ulcerative calluses Thyromegaly Eustachian tube dysfunction Bilateral tinnitus Dysphagia Throat tightness Acquired lymphedema Hematoma of left lower leg Cellulitis of lower leg Dyspnea on exertion ILD (interstitial lung disease) Left renal mass Acute nontraumatic kidney injury Hypomagnesemia Elevated brain natriuretic peptide (BNP) level Dyspnea Elevated troponin Chronic GERD Orthostatic hypotension Dizziness Atypical angina Cellulitis of right leg Vocal cord edema Ringing in right ear Chronic hoarseness Globus sensation Vertigo Diverticulitis IBS (irritable bowel syndrome) Latent tuberculosis Rheumatoid arthritis Viral gastroenteritis Laceration of face Atrial flutter Asbestos exposure Tachycardia Abnormal ECG Preoperative testing Episodic confusion Allergic rhinitis Latent tuberculosis by blood test Restrictive lung disease Left sided abdominal pain Left shoulder strain Left groin pain Claustrophobia Chronic cough Cognitive complaints Edema of both lower extremities Decreased pedal pulses Non-healing ulcer of foot Decreased ROM of right shoulder Right shoulder pain Right shoulder injury Pes planus of both feet Skin lesion Impotence Low back pain Left against medical advice Memory loss Chronic SI joint pain Radiculopathy Neuropathic pain Leg pain, posterior Kidney stone Ingrown toenail of right foot Splinter of toe of left foot Pain of left great toe Cellulitis of great toe of right foot Acute bacterial bronchitis Incurved toenail Diabetes mellitus Onychomycosis Pain in both feet Callus of foot Diabetic foot ulcer Acute febrile illness SIRS (systemic inflammatory response syndrome) Left against medical advice Lower extremity edema Epistaxis Encounter for pre-operative cardiovascular clearance Sepsis Urinary incontinence Weakness Cellulitis, leg Obesity (BMI 30-39.9) Acute delirium Cellulitis Severe sepsis SIRS (systemic inflammatory response syndrome) Physical deconditioning Bacterial pneumonia Hypokalemia Bronchitis due to COVID-19 virus Pneumonia due to COVID-19 virus COVID-19 virus infection Exposure to COVID-19 virus Viral syndrome Acute bronchitis Hematuria Kidney stone on right side Multiple renal cysts Cough Diastolic dysfunction Mental status change resolved HTN (hypertension) Dyspnea SOB (shortness of breath) HHD (hypertensive heart disease) Pre-op evaluation Microalbuminuria Enlarged prostate History of IBS Diabetes Surgical History History of cardiac cath History of total right knee replacement History of rotator cuff surgery History of coronary artery stent placement History of cholecystectomy Hx of total knee arthroplasty Family History Other Cancer Cerebral palsy Dementia Diabetes Social History Smoking Status: Never smoker alcohol intake: never counseling provided: none substance use type: denies use current occupational status: employed and retired Travel in the last 8 weeks?: None household members: spouse housing: house caffeine: Yes Have you lived/traveled outside [place] in past 30 days?: No Contact w/someone who lives/traveled outside US past 30 days?: No Exposure to someone with infectious disease in past 14 days?: No Do you have a fever (greater than 100.4 F or 38 C)?: No Have you tested positive for COVID-19?: No Exposed to someone with COVID-19 in past 14 days?: No Do you have a sore throat?: No Do you have a cough?: No Do you have any weakness?: No Do you have any diarrhea?: No Are you experiencing any unusual bleeding?: No Do you have any muscle aches/pain?: No Do you have any abdominal pain?: No Are you experiencing loss of taste or smell?: No Other Medical History Have you received the Flu Vaccine for this season: No Have you received the Pneumonia Vaccine: No Review of Systems Review of Systems Review of systems (narrative): 14 point review of systems performed, pertinent positives and negatives as per HPI Meds Home Medications and Allergies Home Medications ?Medication ?Instructions ?Recorded ?Confirmed ?Type atorvastatin 40 mg tablet 40 mg PO HS 30 days #90 tabs 06/25/24 03/04/25 Rx omeprazole 40 mg capsule,delayed 40 mg PO DAILY 07/30/24 03/04/25 History release folic acid 1 mg tablet 1 mg PO DAILY #90 tabs 08/05/24 03/04/25 Rx clopidogrel 75 mg tablet 75 mg PO DAILY #90 tabs 11/06/24 03/04/25 Rx Diabetic Shoes (DME) #1 ea 12/04/24 03/04/25 Rx tramadol 50 mg tablet 100 mg PO TIDP PRN Moderate Pain 12/23/24 03/04/25 History (Scale Score 5-6) dapagliflozin propanediol 10 mg 10 mg PO DAILY #90 tabs 12/25/24 03/04/25 Rx tablet (Farxiga) fluticasone propionate 50 2 spray intranasal BID 90 days #90 12/26/24 03/04/25 Rx mcg/actuation nasal grams spray,suspension (Flonase Allergy Relief) Dexcom G7 Sensor (blood-glucose #9 ea 02/03/25 03/04/25 Rx sensor) Humalog Mix 75-25 KwikPen U-100 20 unit (0.2 mL) SQ BID #45 mL 02/03/25 03/04/25 Rx insulin 100 unit/mL subcutaneous pen (insulin lispro protamin-lispro) pen needle, diabetic 32 gauge x #100 ea 02/11/25 03/04/25 Rx 1/6 cilostazol 100 mg tablet 100 mg PO BID 02/18/25 03/04/25 History finerenone 20 mg tablet 20 mg PO DAILY 02/18/25 03/04/25 History Mounjaro 2.5 mg/0.5 mL 2.5 mg (0.5 mL) SQ WEEKLY 3 months 02/24/25 03/04/25 Rx subcutaneous pen injector #6 mL (tirzepatide) albuterol sulfate 90 mcg/actuation 2 puff inhalation Q4HP PRN 03/04/25 03/04/25 History aerosol inhaler Shortness Of Breath cyclobenzaprine 10 mg tablet 10 mg PO Q8HP PRN muscle spasm 03/04/25 03/04/25 History famotidine 40 mg tablet 40 mg PO HS 03/04/25 03/04/25 History lidocaine 5 % topical patch 1 patch topical DAILY 03/04/25 03/04/25 History metformin 1,000 mg tablet 1,000 mg PO BID 03/04/25 03/04/25 History metoprolol succinate 50 mg 50 mg PO DAILY 03/04/25 03/04/25 History tablet,extended release 24 hr ondansetron HCl 4 mg tablet 4 mg PO Q8HP PRN nausea and 03/04/25 03/04/25 History vomiting rivaroxaban 15 mg tablet (Xarelto) 15 mg PO BIDWMEAL 03/04/25 03/04/25 History tamsulosin 0.4 mg capsule 0.4 mg PO DAILY 03/04/25 03/04/25 History New Prescriptions to Start Prescriptions: Allergies Allergy/AdvReac Type Severity Reaction Status Date / Time Penicillins (PENICILLINS) Allergy Unknown I-ITCHING Verified 03/04/25 10:57 Exam Data for Last 24 hours Vital signs and Labs for Last 24 Hours: Temp Pulse Resp BP Pulse Ox O2 Del Method 102.5 F H 137 H 14 100/49 L 97 Room Air 03/04/25 12:02 03/04/25 13:32 03/04/25 13:32 03/04/25 13:32 03/04/25 13:32 03/04/25 13:32 Laboratory Results - last 24 hr 03/04/25 11:48: WBC 8.0, RBC 4.87, Hgb 10.7 L, Hct 33.2 L, MCV 68.2 L, MCH 22.0 L, MCHC 32.2, RDW 21.2 H, Plt Count 300, MPV 9.8, Neut % (Auto) 71.0, Lymph % (Auto) 15.4, [place] % (Auto) 12.9 H, Eos % (Auto) 0.1, Baso % (Auto) 0.3, Neut # (Auto) 5.7, Lymph # (Auto) 1.2, [place] # (Auto) 1.0, Eos # (Auto) 0.0, Baso # (Auto) 0.0, PT 12.2, INR 1.11 H, VBG pH 7.45 H, VBG pCO2 25.9 L, VBG pO2 27.5 L, VBG HCO3 17.4 L, VBG Total CO2 18.2 L, VBG O2 Saturation 53.9, VBG Base Excess -6.6 L, VBG Lactic Acid 4.1 H, Sodium 136, Potassium 3.4 L, Chloride 99, Carbon Dioxide 17 L, Anion Gap 23.4 H, BUN 19, Creatinine 1.60 H, Estimated Creat Clear 52, Estimated GFR 43 L, Est GFR ( Amer) 52 L, Glucose 261 H, Lactate 3.8 H, Calcium 8.9, Phosphorus 2.8, Magnesium 1.8, Total Bilirubin 1.9 H, AST 66 H, ALT 55, Alkaline Phosphatase 114, Troponin I 0.62 H, NT-Pro-B Natriuret Pep 4160 H, Total Protein 8.0, Albumin 4.6, Globulin 3.4 H, Albumin/Globulin Ratio 1.4, Lipase 75, TSH 1.24, Free T4 1.41 03/04/25 12:15: SARS-CoV-2 (PCR) Not detected, Influenza A Untype (PCR) Not detected, Influenza Type B (PCR) Not detected I & O for Last 24 hours: Intake & Output 03/01/25 03/02/25 03/03/25 03/04/25 23:59 23:59 23:59 23:59 Intake Total 100 / 100 Balance 100 / 100 Weight 88.451 kg Constitutional Constitutional: moderate distress, chronically ill appearing and cooperative *Routine HEENT Exam Head: Present normocephalic Eye: Present EOMI and PERRL ENT: Present mucous membranes dry *Routine Neck Exam Neck: Present supple; Absent lymphadenopathy *Routine Respiratory Exam Respiratory: Present CTA bilaterally; Absent rhonchi or wheezes *Routine Cardiovascular Exam Cardiovascular: Present tachycardia and irregularly irregular *Routine Abdominal Exam Abdominal: Present soft and normoactive bowel sounds; Absent tenderness *Routine Rectal Exam Rectal:: deferred *Routine Genitalia Exam Genitalia:: deferred *Routine Extremities Exam Extremities: Present edema (3+ to knees, mild stasis changes with erythema bilaterally); Absent cyanosis or clubbing *Routine Skin Exam Skin: Present intact and warm; Absent rash *Routine Neurological Exam Neurological: Present alert, oriented X3, altered mental status and moving all extremities Assessment and Plan *Assessment and plan (1) Severe sepsis: Status: Acute Category: Medical Code(s): A41.9 - Sepsis, unspecified organism; R65.20 - Severe sepsis without septic shock (2) (HFpEF) heart failure with preserved ejection fraction: Status: Acute Category: Medical Code(s): I50.30 - Unspecified diastolic (congestive) heart failure (3) A-fib: Status: Acute Category: Medical Code(s): I48.91 - Unspecified atrial fibrillation (4) Atrial flutter: Status: Acute Category: Medical Code(s): I48.92 - Unspecified atrial flutter (5) NSTEMI (non-ST elevated myocardial infarction): Status: Acute Category: Medical Code(s): I21.4 - Non-ST elevation (NSTEMI) myocardial infarction (6) GERD (gastroesophageal reflux disease): Status: Acute Qualifiers: Esophagitis presence: with esophagitis Esophagitis bleeding: without hemorrhage Qualified Code(s): K21.00 - Gastro-esophageal reflux disease with esophagitis, without bleeding Category: Medical Code(s): K21.9 - Gastro-esophageal reflux disease without esophagitis (7) BPH loc w urin obs/LUTS: Status: Acute Category: Medical Code(s): N40.1 - Benign prostatic hyperplasia with lower urinary tract symptoms (8) Lymphedema: Status: Acute Category: Medical Code(s): I89.0 - Lymphedema, not elsewhere classified (9) 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: Status: Acute Category: Medical Code(s): Z79.01 - group home (current) use of anticoagulants (10) T2DM (type 2 diabetes mellitus): Problem Comment: On tirzepatide Status: Chronic Qualifiers: Diabetes mellitus fpc insulin use: without 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 transplanted heart: [place] heart Associated angina: without angina Qualified Code(s): I25.10 - Atherosclerotic heart disease of [place] coronary artery without angina pectoris Category: Medical Code(s): I25.10 - Atherosclerotic heart disease of [place] coronary artery without angina pectoris (12) Iron deficiency anemia: Status: Chronic Qualifiers: Iron deficiency anemia type: unspecified iron deficiency Qualified Code(s): D50.9 - Iron deficiency anemia, unspecified Category: Medical Code(s): D50.9 - Iron deficiency anemia, unspecified Plan 74-year-old male with complex cardiac history and significant CAD who recently underwent brachytherapy at [facility] in [place]. Presented for follow-up today and meeting sepsis criteria with fever of 102.5, tachycardia, concern for shortness of breath along with diarrhea as possible sources of his infection. Initiated on empiric antibiotics. Received IV fluid bolus and Tylenol with improvement in heart rate. Given persistent A-flutter, initiated on amiodarone drip at the recommendation of cardiology. Discussed case with ER provider, request admission for further management. Decided to admit to ICU for further treatment with amiodarone. Cardiology consulted to evaluate in the morning. Problems addressed as follows: Severe sepsis - Unclear source but meeting criteria with fever of 102.5, tachycardia, suspected respiratory source with shortness of breath versus GI source of diarrhea. Continue cefepime 2 g twice daily and vancomycin. Received Flagyl 500 mg IV once in the ER, will hold at this time. Blood cultures pending. - White count normal at 8. Repeat CBC, CMP, magnesium ordered for the morning. - Negative for flu and COVID today. Atrial flutter NSTEMI, type II secondary to supply/demand mismatch of a flutter and sepsis continue amiodarone bolus and drip. Will transition to oral therapy in the morning. Cardiology consulted to assist with management of arrhythmia - Serial troponins continue to show elevation, peaking above 1.0. No chest pain. EKG shows no ischemic changes. - Known significant history of CAD. - Continue home Lipitor 40 mg daily, cilostazol 100 mg twice daily, Plavix 75 mg daily, Xarelto 15 mg twice daily - Resume home metoprolol succinate 50 mg daily - BNP elevated at 4000, has significant edema in legs. Will consider diuresis tomorrow pending improvement clinically and patient's sepsis presentation Diabetes: Continue home combo insulin 75/25 at reduced dose of 15 units twice daily. Sliding scale insulin and fingersticks ACHS. BPH: Continue tamsulosin 0.4 mg daily GERD: Continue pantoprazole 40 mg nightly Full code Diabetic/cardiac diet
[2025-03-04] MEDS: AMIODARONE HCL 900 MG in DEXTROSE 5 % IN WATER 500 ML 34.53 MG IV (14:08)
--- NOTE | 2025-03-04 15:08 | PC.NURSE ---
report given to lisa anderson
[2025-03-04 15:57] LABS: Troponin I 0.94 ng/ml (0.00-0.034)
[2025-03-04 16:10] LABS: Reflex Lactic Add Lactic Reflex
[2025-03-04 16:43] LABS: Lactic Acid Follow Up (RFLX 1) 1.3 mmol/L (0.7-2.1)
[2025-03-04 16:44] LABS: Hepatitis C Ab Qual. W/ RFX NEGATIVE (Negative)
[2025-03-04] MEDS: humaLOG 100 UNITS/ML 10ML VIAL (SSI) SUBCUT ×2 (17:40→22:19)
--- NOTE | 2025-03-04 18:32 | ECG_ITS ---
APPROVED REPORT Exam: Resting ECG HR:100 bpm ECG Measurements Heart Rate 100 AXES LA 138 P 54 QRSd 96 QRS 55 QT 375 T 56 QTc 432 Conclusion SINUS TACHYCARDIA POSSIBLE LEFT ATRIAL ENLARGEMENT [-0.1mV P-WAVE IN V1/V2] NONSPECIFIC ST & T-WAVE ABNORMALITY ABNORMAL RHYTHM ECG UNCONFIRMED REPORT Electronically signed by : Walker Hill MD 03/05/2025 08:31:56
[2025-03-04 19:09] LABS: Troponin I 1.19 ng/ml (0.00-0.034)
[2025-03-04] MEDS: ACETAMINOPHEN 325MG TAB 650 MG PO (20:09)
[2025-03-04 20:28] LABS: POC Glucose,Bedside 220 gm/dL (70-110)
--- NOTE | 2025-03-04 22:00 | PC.NURSE ---
I went into pt room to assist with urinal. Pt had 3 medicine bottles on the table. I asked him if he took any and he said yes around 6pm. He took sirolimus 1mg, cilostazol 100mg, and dilt 120mg/24. All medications are in a bag and in the med cart.
[2025-03-04] MEDS: ATORVASTATIN 40MG TABLET 40 MG PO (22:07)
[2025-03-04] MEDS: FAMOTIDINE 20MG TABLET 40 MG PO (22:07)
[2025-03-04] MEDS: PANTOPRAZOLE 40MG TABLET 40 MG PO (22:07)
[2025-03-04] MEDS: CILOSTAZOL 100MG TABLET 100 MG PO (22:08)
[2025-03-04] MEDS: humaLOG MIX 75/25 3ML FLEXPEN 15 UNIT SUBCUT (22:18)
[2025-03-05] VITALS (16 sets, daily range): BP systolic 97–142; BP diastolic 50–80; PULSE 72–112; RESP 13–26; TEMP 36.4–37.7; O2SAT 92–98; BMI 28.3; BMI 29.0
[2025-03-05] MEDS: ACETAMINOPHEN 325MG TAB 650 MG PO ×3 (00:26→16:11)
[2025-03-05] MEDS: CEFEPIME HCL 2 GM in 0.9 % SODIUM CHLORIDE 100 ML IV ×2 (01:07→13:24)
[2025-03-05 06:29] LABS: POC Glucose,Bedside 176 gm/dL (70-110)
[2025-03-05] MEDS: humaLOG 100 UNITS/ML 10ML VIAL (SSI) SUBCUT ×4 (06:49→21:21)
[2025-03-05 07:14] LABS: Hematocrit 28.5 % (42.0-52.0); Immature Granulocytes % 0.3 %; Mean Corpuscular HGB Conc 31.2 g/dL (31.8-35.4); Mean Corpuscular Hemoglobin 21.2 pg (27.0-31.2); Mean Corpuscular Volume 67.9 fl (80-94); Nucleated Red Blood Cells % 0 %; Platelet Count 217 K/mm3 (142-424); Red Blood Count 4.20 M/mm3 (4.60-6.20); Red Cell Distribution Width-SD 49.9 fL; White Blood Count 5.7 K/mm3 (4.8-10.8)
[2025-03-05 07:27] LABS: Albumin Level 3.8 g/dl (3.5-5.0); Chloride 105 mmol/L (98-107); Sodium 135 mmol/L (136-145)
[2025-03-05 07:29] LABS: Potassium 2.9 mmoL/L (3.5-5.1)
[2025-03-05 07:30] LABS: Alanine Aminotransferase 37 U/L (12-78); Albumin/Globulin Ratio 1.4 (1.1-1.8); Alkaline Phosphatase 85 U/L (38-126); Anion Gap 12.9 mEq/L (5-15); Aspartate Amino Transferase 53 U/L (17-59); Bilirubin,Total 1.3 mg/dl (0.2-1.3); Blood Urea Nitrogen 19 mg/dl (9-20); Carbon Dioxide 20 mmol/L (22.0-30.0); Creatinine Clearance Estimated 59 mL/min (50-200); Creatinine,Serum 1.40 mg/dl (0.66-1.25); Estimated Glomerular Filt Rate 50 ml/min (>60); GFR (African American) 60 ML/MIN (>60); Globulin 2.8 g/dL (1.3-3.2); Total Protein,Serum 6.6 g/dl (6.3-8.2)
[2025-03-05 07:31] LABS: Calcium 8.1 mg/dl (8.4-10.2); Glucose 163 mg/dl (74-100); Magnesium 2.0 mg/dl (1.6-2.3)
--- NOTE | 2025-03-05 07:35 | EXP.PHA.CONS ---
Pharmacy Consult Date: 03/05/25 Time: 07:35 Referring provider: DR. SHARPE Reason for Consult:: VANCOMYCIN DOSING Allergies Allergy/AdvReac Type Severity Reaction Status Date / Time Penicillins (PENICILLINS) Allergy Unknown I-ITCHING Verified 03/04/25 10:57 Home Medications ?Medication ?Instructions ?Recorded ?Confirmed ?Type atorvastatin 40 mg tablet 40 mg PO HS 30 days #90 tabs 06/25/24 03/04/25 Rx omeprazole 40 mg capsule,delayed 40 mg PO DAILY 07/30/24 03/04/25 History release folic acid 1 mg tablet 1 mg PO DAILY #90 tabs 08/05/24 03/04/25 Rx clopidogrel 75 mg tablet 75 mg PO DAILY #90 tabs 11/06/24 03/04/25 Rx Diabetic Shoes (DME) #1 ea 12/04/24 03/04/25 Rx tramadol 50 mg tablet 100 mg PO TIDP PRN Moderate Pain 12/23/24 03/04/25 History (Scale Score 5-6) dapagliflozin propanediol 10 mg 10 mg PO DAILY #90 tabs 12/25/24 03/04/25 Rx tablet (Farxiga) fluticasone propionate 50 2 spray intranasal BID 90 days #90 12/26/24 03/04/25 Rx mcg/actuation nasal grams spray,suspension (Flonase Allergy Relief) Dexcom G7 Sensor (blood-glucose #9 ea 02/03/25 03/04/25 Rx sensor) Humalog Mix 75-25 KwikPen U-100 20 unit (0.2 mL) SQ BID #45 mL 02/03/25 03/04/25 Rx insulin 100 unit/mL subcutaneous pen (insulin lispro protamin-lispro) pen needle, diabetic 32 gauge x #100 ea 02/11/25 03/04/25 Rx 1/6 cilostazol 100 mg tablet 100 mg PO BID 02/18/25 03/04/25 History finerenone 20 mg tablet 20 mg PO DAILY 02/18/25 03/04/25 History Mounjaro 2.5 mg/0.5 mL 2.5 mg (0.5 mL) SQ WEEKLY 3 months 02/24/25 03/04/25 Rx subcutaneous pen injector #6 mL (tirzepatide) albuterol sulfate 90 mcg/actuation 2 puff inhalation Q4HP PRN 03/04/25 03/04/25 History aerosol inhaler Shortness Of Breath cyclobenzaprine 10 mg tablet 10 mg PO Q8HP PRN muscle spasm 03/04/25 03/04/25 History famotidine 40 mg tablet 40 mg PO HS 03/04/25 03/04/25 History lidocaine 5 % topical patch 1 patch topical DAILY 03/04/25 03/04/25 History metformin 1,000 mg tablet 1,000 mg PO BID 03/04/25 03/04/25 History metoprolol succinate 50 mg 50 mg PO DAILY 03/04/25 03/04/25 History tablet,extended release 24 hr ondansetron HCl 4 mg tablet 4 mg PO Q8HP PRN nausea and 03/04/25 03/04/25 History vomiting rivaroxaban 15 mg tablet (Xarelto) 15 mg PO BIDWMEAL 03/04/25 03/04/25 History tamsulosin 0.4 mg capsule 0.4 mg PO DAILY 03/04/25 03/04/25 History New Prescriptions to Start Prescriptions: Height: 1.75 m Weight: 86.8 kg Laboratory Results:: Laboratory Results - last 24 hr 03/04/25 11:48: WBC 8.0, RBC 4.87, Hgb 10.7 L, Hct 33.2 L, MCV 68.2 L, MCH 22.0 L, MCHC 32.2, RDW 21.2 H, Plt Count 300, MPV 9.8, Neut % (Auto) 71.0, Lymph % (Auto) 15.4, [place] % (Auto) 12.9 H, Eos % (Auto) 0.1, Baso % (Auto) 0.3, Neut # (Auto) 5.7, Lymph # (Auto) 1.2, [place] # (Auto) 1.0, Eos # (Auto) 0.0, Baso # (Auto) 0.0, PT 12.2, INR 1.11 H, VBG pH 7.45 H, VBG pCO2 25.9 L, VBG pO2 27.5 L, VBG HCO3 17.4 L, VBG Total CO2 18.2 L, VBG O2 Saturation 53.9, VBG Base Excess -6.6 L, VBG Lactic Acid 4.1 H, Sodium 136, Potassium 3.4 L, Chloride 99, Carbon Dioxide 17 L, Anion Gap 23.4 H, BUN 19, Creatinine 1.60 H, Estimated Creat Clear 52, Estimated GFR 43 L, Est GFR ( Amer) 52 L, Glucose 261 H, Lactate 3.8 H, Calcium 8.9, Phosphorus 2.8, Magnesium 1.8, Total Bilirubin 1.9 H, AST 66 H, ALT 55, Alkaline Phosphatase 114, Troponin I 0.62 H, NT-Pro-B Natriuret Pep 4160 H, Total Protein 8.0, Albumin 4.6, Globulin 3.4 H, Albumin/Globulin Ratio 1.4, Lipase 75, TSH 1.24, Free T4 1.41, HCV Ab RAKAN w/Rflx PCR Qn Negative, HIV Ag/Ab Combo Qual Negative 03/04/25 12:15: SARS-CoV-2 (PCR) Not detected, Influenza A Untype (PCR) Not detected, Influenza Type B (PCR) Not detected 03/04/25 15:03: Troponin I 0.94 H 03/04/25 16:17: Lactate 1.3 03/04/25 18:10: Troponin I 1.19 H 03/04/25 20:20: POC Glucose 220 H 03/05/25 05:49: WBC 5.7 D, RBC 4.20 L, Hct 28.5 L, MCV 67.9 L, MCH 21.2 L, MCHC 31.2 L, RDW 20.7 H, Plt Count 217 D, MPV 9.8, Neut % (Auto) 75.6, Lymph % (Auto) 9.3 L, [place] % (Auto) 14.3 H, Eos % (Auto) 0.3, Baso % (Auto) 0.2, Neut # (Auto) 4.3, Lymph # (Auto) 0.5 L, [place] # (Auto) 0.8, Eos # (Auto) 0.0, Baso # (Auto) 0.0, Sodium 135 L, Potassium 2.9 L*, Chloride 105, Albumin 3.8 D 03/05/25 06:22: POC Glucose 176 H Medical History: Medical History (Updated 03/05/25 @ 00:16 by De Sharpe MD) NSTEMI (non-ST elevated myocardial infarction) Short of breath on exertion (HFpEF) heart failure with preserved ejection fraction GERD (gastroesophageal reflux disease) COVID URI (upper respiratory infection) Pre-ulcerative calluses Thyromegaly Eustachian tube dysfunction Bilateral tinnitus Dysphagia Throat tightness Acquired lymphedema Hematoma of left lower leg Cellulitis of lower leg Dyspnea on exertion ILD (interstitial lung disease) Left renal mass Acute nontraumatic kidney injury Hypomagnesemia Elevated brain natriuretic peptide (BNP) level Dyspnea Elevated troponin Chronic GERD Orthostatic hypotension Dizziness Atypical angina Cellulitis of right leg Vocal cord edema Ringing in right ear Chronic hoarseness Globus sensation Vertigo Diverticulitis IBS (irritable bowel syndrome) Latent tuberculosis Rheumatoid arthritis Viral gastroenteritis Laceration of face Atrial flutter Asbestos exposure Tachycardia Abnormal ECG Preoperative testing Episodic confusion Allergic rhinitis Latent tuberculosis by blood test Restrictive lung disease Left sided abdominal pain Left shoulder strain Left groin pain Claustrophobia Chronic cough Cognitive complaints Edema of both lower extremities Decreased pedal pulses Non-healing ulcer of foot Decreased ROM of right shoulder Right shoulder pain Right shoulder injury Pes planus of both feet Skin lesion Impotence Low back pain Left against medical advice Memory loss Chronic SI joint pain Radiculopathy Neuropathic pain Leg pain, posterior Kidney stone Ingrown toenail of right foot Splinter of toe of left foot Pain of left great toe Cellulitis of great toe of right foot Acute bacterial bronchitis Incurved toenail Diabetes mellitus Onychomycosis Pain in both feet Callus of foot Diabetic foot ulcer Acute febrile illness SIRS (systemic inflammatory response syndrome) Left against medical advice Lower extremity edema Epistaxis Encounter for pre-operative cardiovascular clearance Sepsis Urinary incontinence Weakness Cellulitis, leg Obesity (BMI 30-39.9) Acute delirium Cellulitis Severe sepsis SIRS (systemic inflammatory response syndrome) Physical deconditioning Bacterial pneumonia Hypokalemia Bronchitis due to COVID-19 virus Pneumonia due to COVID-19 virus COVID-19 virus infection Exposure to COVID-19 virus Viral syndrome Acute bronchitis Hematuria Kidney stone on right side Multiple renal cysts Cough Diastolic dysfunction Mental status change resolved HTN (hypertension) Dyspnea SOB (shortness of breath) HHD (hypertensive heart disease) Pre-op evaluation Microalbuminuria Enlarged prostate History of IBS Diabetes Assessment and Plan Assessment and plan all Dx Assessment and Plan for all problems:: Pharmacokinetic dosing service Objective: Patient: Floor: Age: 74 yo Serum creatinine: 1.60 mg/dL Height: 68.9 Inches Weight (kg): 86.8 Assessment: IBW (kg): 70.47 Dosing wt(kg): 86.8 Estimated Creatinine clearance (ml/min): 41.6 CRCL method: Cockcroft and Gault using ibw(default). Drug selected: Vancomycin Loading dose (mg): Vd (liters): 69.4 (factor used: 0.8 L/kg) Carlos (hr-1): 0.039 Half life (hrs): 17.77 CLvanco=?? 2.707 L/hr Recommended dose: 1500 mg Interval: 24 hrs Infusion time (hrs): 2.0 Predicted peak (mcg/mL): 34.2 Predicted trough (mcg/mL): 14.50 Total body weight is being used for vancomycin dosing. Recommendations: Give Vancomycin 1500 mg q 24 hrs with an expected Cpeak of 34.2 mcg/ml and an expected Ctrough of 14.50 mcg/ml AUC 0-24 /REYMUNDO Data: REYMUNDO 0.5 mcg/mL:?? AUC/REYMUNDO:? 1108.2 REYMUNDO 1.0 mcg/mL:?? AUC/REYMUNDO:? 554.1 --------- REYMUNDO 1.5 mcg/mL:?? AUC/REYMUNDO:? 369.4 REYMUNDO 2.0 mcg/mL:?? AUC/REYMUNDO:? 277.1 Thank you for the consult, will continue to follow. -MASSIEL FRANKEL, ROYALD
[2025-03-05] MEDS: AMIODARONE 200MG TABLET 400 MG PO ×2 (09:00→21:21)
[2025-03-05] MEDS: TAMSULOSIN 0.4MG CAPSULE 0.4 MG PO (09:00)
[2025-03-05] MEDS: BUMETANIDE 1MG/4ML VIAL 1 MG IV (09:00)
[2025-03-05] MEDS: POTASSIUM CHLORIDE 20MEQ TAB 40 MEQ PO ×3 (09:01→16:11)
[2025-03-05] MEDS: CILOSTAZOL 100MG TABLET 100 MG PO ×2 (09:01→21:31)
[2025-03-05] MEDS: METOPROLOL SUCCINATE XL 50MG TABLET 50 MG PO (09:01)
[2025-03-05] MEDS: CLOPIDOGREL 75MG TAB 75 MG PO (09:01)
[2025-03-05] MEDS: humaLOG MIX 75/25 3ML FLEXPEN 15 UNIT SUBCUT ×2 (09:01→21:22)
[2025-03-05 09:11] LABS: RBC Morphology Normal; Total Cells Counted 100
[2025-03-05 09:17] LABS: Hemoglobin 9.1 g/dL (14.1-18.0)
--- NOTE | 2025-03-05 09:32 | P.PN_ITS ---
Subjective *Date: 03/05/25 *Time: 14:54 Medical Exam Vital signs and Labs for Last 24 Hours: Vital Signs Temp Pulse Pulse Resp BP BP Pulse Ox 03/05/25 08:00 99.9 F H 91 H 22 127/72 95 03/05/25 07:00 99.9 F H 98 H 13 134/68 97 03/05/25 07:00 03/05/25 06:00 111 H 19 93 L 03/05/25 05:00 03/05/25 04:00 112 H 24 142/75 H 98 03/05/25 04:00 108 H 03/05/25 03:00 03/05/25 02:00 103 H 22 107/75 L 97 03/05/25 02:00 93 L 03/05/25 01:00 03/05/25 00:00 101 H 13 127/69 98 03/05/25 00:00 102 H 03/04/25 23:00 03/04/25 22:00 103 H 24 98/62 L 95 03/04/25 21:00 03/04/25 20:01 98.6 F 106 H 17 149/92 H 97 03/04/25 20:00 98 03/04/25 20:00 100 H 03/04/25 19:30 63 17 81 L 03/04/25 19:15 101 H 25 H 99 03/04/25 19:04 39 L 17 88 L 03/04/25 18:52 03/04/25 17:00 03/04/25 16:00 98.1 F 97 H 16 111/65 93 L 03/04/25 15:33 98.6 F 111 H 19 110/85 03/04/25 15:00 103 H 14 110/68 96 03/04/25 14:45 103 H 12 100/64 L 97 03/04/25 14:20 99 03/04/25 14:00 115 H 13 100/59 L 98 03/04/25 13:58 98.6 F 03/04/25 13:32 137 H 14 100/49 L 97 03/04/25 13:01 126 H 13 115/68 96 03/04/25 12:31 125 H 21 125/68 97 03/04/25 12:22 139 H 17 131/78 96 03/04/25 12:02 102.5 F H 175 H 22 123/77 99 03/04/25 11:51 166 H 123/77 100 O2 Del Method 03/05/25 08:00 Room Air 03/05/25 07:00 Room Air 03/05/25 07:00 Room Air 03/05/25 06:00 Room Air 03/05/25 05:00 Room Air 03/05/25 04:00 Room Air 03/05/25 04:00 03/05/25 03:00 Room Air 03/05/25 02:00 Room Air 03/05/25 02:00 Room Air 03/05/25 01:00 Room Air 03/05/25 00:00 Room Air 03/05/25 00:00 03/04/25 23:00 Room Air 03/04/25 22:00 Room Air 03/04/25 21:00 Room Air 03/04/25 20:01 Room Air 03/04/25 20:00 Room Air 03/04/25 20:00 03/04/25 19:30 03/04/25 19:15 03/04/25 19:04 03/04/25 18:52 Room Air 03/04/25 17:00 Room Air 03/04/25 16:00 Room Air 03/04/25 15:33 Room Air 03/04/25 15:00 Room Air 03/04/25 14:45 Room Air 03/04/25 14:20 Room Air 03/04/25 14:00 Room Air 03/04/25 13:58 03/04/25 13:32 Room Air 03/04/25 13:01 Room Air 03/04/25 12:31 Room Air 03/04/25 12:22 Room Air 03/04/25 12:02 Room Air 03/04/25 11:51 Room Air Intake and Output 03/04/25 03/05/25 03/05/25 23:59 07:59 15:59 Intake Total 408.907 / 200 / 200 Output Total 1050 / 1050 400 / 400 Balance -641.093 / 961.907 -200 / -200 Intake: Intake, Oral Amount 0 / 0 Intake, Total IV Amount 408.907 / 200 / 200 Amiodarone HCl 900 mg In 208.907 / Dextrose 5 % in Water 500 ml @ 1 MG/MIN 34.533 mls/hr IV . Q15H1M [facility] Rx#:[id number] Cefepime HCl 2 gm In 0.9 % 100 / 100 Sodium Chloride 100 ml @ 200 mls/hr IV Q12H [facility] Rx#: [id number] KCl 10mEq/100ml 100 ml @ 100 200 / 200 100 / 100 mls/hr IV Q1H [facility] Rx#:[id number] Output: Output, Urine Amount 1050 / 1050 400 / 400 Other: Number of Unmeasured Voids 1 0 Number of Bowel Movements 1 Weight 88.536 kg 86.8 kg Patient Weight 03/05/25 23:59 Weight 86.8 kg Laboratory Results - last 24 hr 03/04/25 11:48: WBC 8.0, RBC 4.87, Hgb 10.7 L, Hct 33.2 L, MCV 68.2 L, MCH 22.0 L, MCHC 32.2, RDW 21.2 H, Plt Count 300, MPV 9.8, Neut % (Auto) 71.0, Lymph % (Auto) 15.4, Stone % (Auto) 12.9 H, Eos % (Auto) 0.1, Baso % (Auto) 0.3, Neut # (Auto) 5.7, Lymph # (Auto) 1.2, Stone # (Auto) 1.0, Eos # (Auto) 0.0, Baso # (Auto) 0.0, PT 12.2, INR 1.11 H, VBG pH 7.45 H, VBG pCO2 25.9 L, VBG pO2 27.5 L, VBG HCO3 17.4 L, VBG Total CO2 18.2 L, VBG O2 Saturation 53.9, VBG Base Excess - 6.6 L, VBG Lactic Acid 4.1 H, Sodium 136, Potassium 3.4 L, Chloride 99, Carbon Dioxide 17 L, Anion Gap 23.4 H, BUN 19, Creatinine 1.60 H, Estimated Creat Clear 52, Estimated GFR 43 L, Est GFR ( Amer) 52 L, Glucose 261 H, Lactate 3.8 H, Calcium 8.9, Phosphorus 2.8, Magnesium 1.8, Total Bilirubin 1.9 H, AST 66 H, ALT 55, Alkaline Phosphatase 114, Troponin I 0.62 H, NT-Pro-B Natriuret Pep 4160 H, Total Protein 8.0, Albumin 4.6, Globulin 3.4 H, Albumin/Globulin Ratio 1.4, Lipase 75, TSH 1.24, Free T4 1.41, HCV Ab RAKAN w/Rflx PCR Qn Negative, HIV Ag/Ab Combo Qual Negative 03/04/25 12:15: SARS-CoV-2 (PCR) Not detected, Influenza A Untype (PCR) Not detected, Influenza Type B (PCR) Not detected 03/04/25 15:03: Troponin I 0.94 H 03/04/25 16:17: Lactate 1.3 03/04/25 18:10: Troponin I 1.19 H 03/04/25 20:20: POC Glucose 220 H 03/05/25 05:49: WBC 5.7 D, RBC 4.20 L, Hgb 9.1 L D, Hct 28.5 L, MCV 67.9 L, MCH 21.2 L, MCHC 31.2 L, RDW 20.7 H, Plt Count 217 D, MPV 9.8, Neut % (Auto) 75.6, Lymph % (Auto) 9.3 L, Stone % (Auto) 14.3 H, Eos % (Auto) 0.3, Baso % (Auto) 0.2, Neut # (Auto) 4.3, Lymph # (Auto) 0.5 L, Stone # (Auto) 0.8, Eos # (Auto) 0.0, Baso # (Auto) 0.0, Total Counted 100, Neutrophils % (Manual) 81 H, Lymphocytes % (Manual) 14, Monocytes % (Manual) 5, Platelet Estimate Normal, RBC Morphology Normal, Sodium 135 L, Potassium 2.9 L*, Chloride 105, Carbon Dioxide 20 L, Anion Gap 12.9, BUN 19, Creatinine 1.40 H, Estimated Creat Clear 59, Estimated GFR 50 L, Est GFR ( Amer) 60, Glucose 163 H D, Calcium 8.1 L, Magnesium 2.0 D, Total Bilirubin 1.3, AST 53, ALT 37 D, Alkaline Phosphatase 85, Total Protein 6.6, Albumin 3.8 D, Globulin 2.8, Albumin/Globulin Ratio 1.4 03/05/25 06:22: POC Glucose 176 H I & O for Labs for Last 24 Hours: Intake & Output 03/02/25 03/03/25 03/04/25 03/05/25 23:59 23:59 23:59 23:59 Intake Total 2010.907 / 2010.907 200 / 200 Output Total 1050 / 1050 400 / 400 Balance 961.907 / 961.907 -200 / -200 Weight 88.536 kg 86.8 kg Constitutional: Present no acute distress, obese, chronically ill appearing and cooperative Head: Present atraumatic and normocephalic ENT: Present normal exam Respiratory: Present normal respiratory effort; Absent rhonchi, wheezes or crackles Cardiac: Present Tachycardia Comment:: Irregular rhythm, rate control improved in the GI: Present soft; Absent distention or tenderness Extremities: Present normal inspection, full ROM and edema (3+ to knees bilaterally, right worse than left) Comment:: Mild erythema of anterior shins that appears chronic Skin: Present intact and erythema (Mild on anterior shins bilaterally) Neuro: Present Grossly Intact, alert, awake, oriented x 3 and moves all extremities Assessment and Plan *Assessment and plan (1) Severe sepsis: Status: Acute Category: Medical Code(s): A41.9 - Sepsis, unspecified organism; R65.20 - Severe sepsis without septic shock (2) (HFpEF) heart failure with preserved ejection fraction: Status: Acute Category: Medical Code(s): I50.30 - Unspecified diastolic (congestive) heart failure (3) A-fib: Status: Acute Category: Medical Code(s): I48.91 - Unspecified atrial fibrillation (4) Atrial flutter: Status: Acute Category: Medical Code(s): I48.92 - Unspecified atrial flutter (5) NSTEMI (non-ST elevated myocardial infarction): Status: Acute Category: Medical Code(s): I21.4 - Non-ST elevation (NSTEMI) myocardial infarction (6) GERD (gastroesophageal reflux disease): Status: Acute Qualifiers: Esophagitis bleeding: without hemorrhage Esophagitis presence: with esophagitis Qualified Code(s): K21.00 - Gastro-esophageal reflux disease with esophagitis, without bleeding Category: Medical Code(s): K21.9 - Gastro-esophageal reflux disease without esophagitis (7) BPH loc w urin obs/LUTS: Status: Acute Category: Medical Code(s): N40.1 - Benign prostatic hyperplasia with lower urinary tract symptoms (8) Lymphedema: Status: Acute Category: Medical Code(s): I89.0 - Lymphedema, not elsewhere classified (9) [employer] (current) use of anticoagulants: Status: Acute Category: Medical Code(s): 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 (10) T2DM (type 2 diabetes mellitus): Problem Comment: On tirzepatide Status: Chronic Qualifiers: Diabetes mellitus complication detail: with other circulatory complications Diabetes mellitus complication status: with circulatory complication Diabetes mellitus termination clerk insulin use: without termination clerk use Qualified Code(s): E11.59 - Type 2 diabetes mellitus with other circulatory complications Category: Medical Code(s): E11.9 - Type 2 diabetes mellitus without complications (11) CAD (coronary artery disease): Problem Comment: Recent stent procedure 10/2024 Status: Chronic Qualifiers: Associated angina: without angina Coronary Disease-Associated Artery/Lesion type: [place] artery [place] vs. transplanted heart: [place] heart Qualified Code(s): I25.10 - Atherosclerotic heart disease of [place] coronary artery without angina pectoris Category: Medical Code(s): I25.10 - Atherosclerotic heart disease of [place] coronary artery without angina pectoris (12) Iron deficiency anemia: Status: Chronic Qualifiers: Iron deficiency anemia type: unspecified iron deficiency Qualified Code(s): D50.9 - Iron deficiency anemia, unspecified Category: Medical Code(s): D50.9 - Iron deficiency anemia, unspecified Plan 74-year-old male with complex cardiac history and significant CAD who recently underwent brachytherapy at [facility] in [place]. Presented for follow- up today and meeting sepsis criteria with fever of 102.5, tachycardia, concern for shortness of breath along with diarrhea as possible sources of his infection. Initiated on empiric antibiotics. Received IV fluid bolus and Tylenol with improvement in heart rate. Given persistent A-flutter, initiated on amiodarone drip at the recommendation of cardiology. Discussed case with ER provider, request admission for further management. Decided to admit to ICU for further treatment with amiodarone. Cardiology evaluated today, recommend diuresis. Continues to require patient management. Continuing amiodarone drip. Problems addressed as follows Severe sepsis - Unclear source but meeting criteria with fever of 102.5, tachycardia, suspected respiratory source with shortness of breath versus GI source of diarrhea. Continue cefepime 2 g twice daily and vancomycin. Received Flagyl 500 mg IV once in the ER, will hold at this time. Blood cultures pending. Urinalysis pending - White count remains normal at 5.7, hemoglobin 9.1. Monocyte predominant at 14 along with low lymphocytes. Neutrophils 76%. Potassium low at 2.9, kidney function stable with BUN 19, creatinine 1.4. - Repeat CBC, CMP, magnesium ordered for the morning. - Negative for flu and COVID on Atrial flutter NSTEMI, type II secondary to supply/demand mismatch of a flutter and sepsis continue amiodarone bolus and drip. Will transition to oral therapy in the morning. Cardiology consulted to assist with management of arrhythmia - Serial troponins continue to show elevation, peaking at 1.1, No chest pain. EKG shows no ischemic changes. - Known significant history of CAD. - Continue home Lipitor 40 mg daily, cilostazol 100 mg twice daily, Plavix 75 mg daily, Xarelto 15 mg twice daily - Resume home metoprolol succinate 50 mg daily -Transition off IV amiodarone today to oral amiodarone for 100 mg twice daily. - BNP elevated at 4000, has significant edema in legs. Initiate diuresis as blood pressure showing improvement. Continue Bumex 1 mg IV twice daily. Goal negative volume status daily. Will consider diuresis tomorrow pending improvement clinically and patient's sepsis presentation Diabetes: Continue home combo insulin 75/25 at reduced dose of 15 units twice daily. Sliding scale insulin and fingersticks ACHS. BPH: Continue tamsulosin 0.4 mg daily GERD: Continue pantoprazole 40 mg nightly Full code Diabetic/cardiac diet ICU/Critical care attestation This patient is critically ill with 35 minutes devoted solely to this patient managing life/organ supporting interventions that required physician assessment. This includes time spent making adjustments in ventilator settings, IV fluid administration, titration of pressors, adjustments of medications, discussion of patient with consultants and other care providers as well as updating patient and/or family (if patient by virtue of his/her condition is unable to participate in decision making). This does not include time spent performing separately billed procedures. Time is not concurrent with that of other providers.
--- NOTE | 2025-03-05 09:42 | [facility].PHAAMS2 ---
- Antimicrobial Stewardship Review culture & sensitivity review Stewardship interventions: culture & sensitivity review, reviewed - no change Comments: URINE AND BLOOD CX PENDING, SPUTUM CX UNCOLLECTED. PATIENT ON CEFEPIME/VANCOMYCIN EMPIRICALLY FOR SEVERE SEPSIS
[2025-03-05] MEDS: SODIUM CHLORIDE 3% 15ML NEB 3 ML IH (09:48)
[2025-03-05 11:23] LABS: POC Glucose,Bedside 203 gm/dL (70-110)
[2025-03-05] MEDS: VANCOMYCIN/WATER FOR INJ (PEG) 1.5 GM/300 ML PIGGYBACK IV (14:11)
--- NOTE | 2025-03-05 14:42 | P.CONCA_ITS ---
History of Present Illness History of Present Illness Consult date: 03/05/25 Requesting physician: De Palacio Chief complaint: Sepsis History of present illness: This is a 74-year-old white gentleman who presented to cardiology clinic yest abel. He was following up for recent brachytherapy at [facility] last week on Monday. Once he arrived to cardiology clinic he was found to be tachycardic and complaining of fevers. The patient was then sent to the emergency department for concerns of sepsis. In the emergency department he was found to be in atrial fibrillation with RVR and a rate of 160s. He he was febrile with a temperature of the 102.5. The patient had been complaining of fever and chills. He has also been having nonbloody diarrhea that started the day before admission. He was complaining of shortness of breath and diffuse edema in his lower extremities and abdomen. The patient denied any chest pain or pressure. But his shortness of breath was worse with exertion over the past few weeks and this worsened after having his brachytherapy. It does improve with rest but does not resolve. The patient did get a dose of Bumex this morning and was started on IV antibiotics. He is feeling much better today. He states he is still having the diarrhea but it has improved. He states that his fevers and chills have resolved. His shortness of breath is better as well today. [facility] Disclaimer: The information contained in this section may have been updated after the patient was seen, as this information can be updated by other users. Medical History (Updated 03/05/25 @ 14:50 by Nereyda Clark APRN) Acute on chronic heart failure with preserved ejection fraction (HFpEF) NSTEMI (non-ST elevated myocardial infarction) Short of breath on exertion (HFpEF) heart failure with preserved ejection fraction GERD (gastroesophageal reflux disease) COVID URI (upper respiratory infection) Pre-ulcerative calluses Thyromegaly Eustachian tube dysfunction Bilateral tinnitus Dysphagia Throat tightness Acquired lymphedema Hematoma of left lower leg Cellulitis of lower leg Dyspnea on exertion ILD (interstitial lung disease) Left renal mass Acute nontraumatic kidney injury Hypomagnesemia Elevated brain natriuretic peptide (BNP) level Dyspnea Elevated troponin Chronic GERD Orthostatic hypotension Dizziness Atypical angina Cellulitis of right leg Vocal cord edema Ringing in right ear Chronic hoarseness Globus sensation Vertigo Diverticulitis IBS (irritable bowel syndrome) Latent tuberculosis Rheumatoid arthritis Viral gastroenteritis Laceration of face Atrial flutter Asbestos exposure Tachycardia Abnormal ECG Preoperative testing Episodic confusion Allergic rhinitis Latent tuberculosis by blood test Restrictive lung disease Left sided abdominal pain Left shoulder strain Left groin pain Claustrophobia Chronic cough Cognitive complaints Edema of both lower extremities Decreased pedal pulses Non-healing ulcer of foot Decreased ROM of right shoulder Right shoulder pain Right shoulder injury Pes planus of both feet Skin lesion Impotence Low back pain Left against medical advice Memory loss Chronic SI joint pain Radiculopathy Neuropathic pain Leg pain, posterior Kidney stone Ingrown toenail of right foot Splinter of toe of left foot Pain of left great toe Cellulitis of great toe of right foot Acute bacterial bronchitis Incurved toenail Diabetes mellitus Onychomycosis Pain in both feet Callus of foot Diabetic foot ulcer Acute febrile illness SIRS (systemic inflammatory response syndrome) Left against medical advice Lower extremity edema Epistaxis Encounter for pre-operative cardiovascular clearance Sepsis Urinary incontinence Weakness Cellulitis, leg Obesity (BMI 30-39.9) Acute delirium Cellulitis Severe sepsis SIRS (systemic inflammatory response syndrome) Physical deconditioning Bacterial pneumonia Hypokalemia Bronchitis due to COVID-19 virus Pneumonia due to COVID-19 virus COVID-19 virus infection Exposure to COVID-19 virus Viral syndrome Acute bronchitis Hematuria Kidney stone on right side Multiple renal cysts Cough Diastolic dysfunction Mental status change resolved HTN (hypertension) Dyspnea SOB (shortness of breath) HHD (hypertensive heart disease) Pre-op evaluation Microalbuminuria Enlarged prostate History of IBS Diabetes Surgical History (Updated 03/05/25 @ 14:46 by Nereyda Clark APRN) History of brachytherapy History of cardiac cath History of total right knee replacement History of rotator cuff surgery History of coronary artery stent placement History of cholecystectomy Hx of total knee arthroplasty Family History Other Cancer Cerebral palsy Dementia Diabetes Social History Smoking Status: Never smoker alcohol intake: never counseling provided: none substance use type: denies use current occupational status: employed and retired Travel in the last 8 weeks?: None household members: spouse housing: house caffeine: Yes Review of Systems Review of Systems Review of systems:: pertinent systems reviewed and negative unless documented below Constitutional Constitutional: Reports system reviewed and no additional complaints, except as documented, Reports body ache(s), Reports chills, Reports fatigue, Reports fe gabriella(s) and Reports lethargy Eyes Eyes: Reports system reviewed and no additional complaints, except as documented ENT Ears, Nose, Mouth, and Throat: Reports system reviewed and no additional complaints, except as documented *Cardiovascular Cardiovascular: Reports system reviewed and no additional complaints, except as documented, Denies chest pain, Reports dyspnea, Reports dyspnea on exertion, Reports edema, Reports leg edema and Reports pedal edema *Respiratory Respiratory: Reports system reviewed and no additional complaints, except as documented, Reports dyspnea and Reports dyspnea on exertion *Gastrointestinal Gastrointestinal: Reports system reviewed and no additional complaints, except as documented *Genitourinary Genitourinary: Reports system reviewed and no additional complaints, except as documented *Musculoskeletal Musculoskeletal: Reports system reviewed and no additional complaints, except as documented Integumentary/Breasts Skin/Breast: Reports system reviewed and no additional complaints, except as documented *Neurologic Neurologic: Reports system reviewed and no additional complaints, except as documented Psychiatric Psychiatric: Reports system reviewed and no additional complaints, except as documented Endocrine Endocrine: Reports system reviewed and no additional complaints, except as documented and Reports fatigue Hematologic/Lymphatic Hematologic/Lymphatic: Reports system reviewed and no additional complaints, except as documented Allergic/Immunologic Allergic/Immunologic: Reports system reviewed and no additional complaints, except as documented Exam Data for Last 24 hours Vital signs and Labs for Last 24 Hours: Temp Pulse Resp BP Pulse Ox O2 Del Method 98.9 F 100 H 18 119/62 98 Room Air 03/05/25 12:00 03/05/25 12:00 03/05/25 14:15 03/05/25 12:00 03/05/25 12:00 03/05/25 14:28 Laboratory Results - last 24 hr 03/04/25 11:48: HCV Ab RAKAN w/Rflx PCR Qn Negative, HIV Ag/Ab Combo Qual Negative 03/04/25 15:03: Troponin I 0.94 H 03/04/25 16:17: Lactate 1.3 03/04/25 18:10: Troponin I 1.19 H 03/04/25 20:20: POC Glucose 220 H 03/05/25 05:49: WBC 5.7 D, RBC 4.20 L, Hgb 9.1 L D, Hct 28.5 L, MCV 67.9 L, MCH 21.2 L, MCHC 31.2 L, RDW 20.7 H, Plt Count 217 D, MPV 9.8, Neut % (Auto) 75.6, Lymph % (Auto) 9.3 L, [place] % (Auto) 14.3 H, Eos % (Auto) 0.3, Baso % (Auto) 0.2, Neut # (Auto) 4.3, Lymph # (Auto) 0.5 L, [place] # (Auto) 0.8, Eos # (Auto) 0.0, Baso # (Auto) 0.0, Total Counted 100, Neutrophils % (Manual) 81 H, Lymphocytes % (Manual) 14, Monocytes % (Manual) 5, Platelet Estimate Normal, RBC Morphology Normal, Sodium 135 L, Potassium 2.9 L*, Chloride 105, Carbon Dioxide 20 L, Anion Gap 12.9, BUN 19, Creatinine 1.40 H, Estimated Creat Clear 59, Estimated GFR 50 L, Est GFR ( Amer) 60, Glucose 163 H D, Calcium 8.1 L, Magnesium 2.0 D, Total Bilirubin 1.3, AST 53, ALT 37 D, Alkaline Phosphatase 85, Total Protein 6.6, Albumin 3.8 D, Globulin 2.8, Albumin/Globulin Ratio 1.4 03/05/25 06:22: POC Glucose 176 H 03/05/25 11:00: POC Glucose 203 H I & O for Last 24 hours: Intake & Output 03/02/25 03/03/25 03/04/25 03/05/25 23:59 23:59 23:59 23:59 Intake Total 907 / 7 1124.093 / 1124.093 Output Total 1050 / 1050 1350 / 1350 Balance 961.907 / 961.907 -225.907 / -225.907 Weight 195 lb 3 oz 191 lb 5.78 oz Microbiology Reports for the Last 24 Hours: Microbiology 03/04/25 11:48 Blood Blood Culture - Preliminary NO GROWTH AFTER 24 HOURS 03/04/25 11:48 Blood Blood Culture - Preliminary NO GROWTH AFTER 24 HOURS Constitutional Constitutional: no acute distress and average body habitus *Routine HEENT Exam Head: Present normocephalic and atraumatic ENT: Present mucous membranes moist *Routine Neck Exam Neck: Present supple, full ROM and normal carotid upstroke; Absent JVD, carotid bruit or lymphadenopathy *Routine Respiratory Exam Respiratory: Present CTA bilaterally, normal respiratory effort, able to speak in complete sentences and symmetric chest movement *Routine Cardiovascular Exam Cardiovascular: Present RRR, Normal S1 and Normal S2; Absent murmur or gallop *Routine Abdominal Exam Abdominal: Present soft and normoactive bowel sounds; Absent tenderness, distended or organomegaly *Routine Extremities Exam Extremities: Present full ROM, pulses intact and normal capillary refill; Absent cyanosis, clubbing or edema *Routine Skin Exam Skin: Present intact and warm; Absent erythema *Routine Neurological Exam Neurological: Present alert, oriented X3 and CN II-XII intact; Absent sensory deficit or motor deficit Routine Psychiatric Exam Psychiatric: Present normal affect Meds Home Medications and Allergies Home Medications ?Medication ?Instructions ?Recorded ?Confirmed ?Type atorvastatin 40 mg tablet 40 mg PO HS 30 days #90 tabs 06/25/24 03/04/25 Rx omeprazole 40 mg capsule,delayed 40 mg PO DAILY 03/04/25 History release folic acid 1 mg tablet 1 mg PO DAILY #90 tabs 08/0503/04/25 Rx clopidogrel 75 mg tablet 75 mg PO DAILY #90 tabs 10/2503/04/25 Rx Diabetic Shoes (DME) #1 ea 12/04/24 03/04/25 Rx tramadol 50 mg tablet 100 mg PO TIDP PRN Moderate Pain 12/23/24 03/04/25 History (Scale Score 5-6) dapagliflozin propanediol 10 mg 10 mg PO DAILY #90 tab s 12/25/24 03/04/25 Rx tablet (Farxiga) fluticasone propionate 50 2 spray intranasal BID 90 da ys #90 12/26/24 03/04/25 Rx mcg/actuation nasal grams spray,suspension (Flonase Allergy Relief) Dexcom G7 Sensor (blood-glucose #9 ea 02/03/25 5 Rx sensor) Humalog Mix 75-25 KwikPen U-100 20 unit (0.2 mL) SQ BI D #45 mL 02/03/25 03/04/25 Rx insulin 100 unit/mL subcutaneous pen (insulin lispro protamin-lispro) pen needle, diabetic 32 gauge x #100 ea 02/11/2503/04 Rx 1/6 cilostazol 100 mg tablet 100 mg PO BID 02/18/2503/04 History finerenone 20 mg tablet 20 mg PO DAILY 02/18/2512/19 History Mounjaro 2.5 mg/0.5 mL 2.5 mg (0.5 mL) SQ WEEKLY 3 months 02/24/25 03/04/25 Rx subcutaneous pen injector #6 mL (tirzepatide) albuterol sulfate 90 mcg/actuation 2 puff inhalation Q 4HP PRN 03/04/25 03/04/25 History aerosol inhaler Shortness Of Breath cyclobenzaprine 10 mg tablet 10 mg PO Q8HP PRN muscle spasm 03/04/25 03/04/25 History famotidine 40 mg tablet 40 mg PO HS 03/04/25 5 History lidocaine 5 % topical patch 1 patch topical DAILY 12/1903/04/25 History metformin 1,000 mg tablet 1,000 mg PO BID 03/04/2512/19 History metoprolol succinate 50 mg 50 mg PO DAILY 03/04/2512/19 History tablet,extended release 24 hr ondansetron HCl 4 mg tablet 4 mg PO Q8HP PRN nausea an d 03/04/25 03/04/25 History vomiting rivaroxaban 15 mg tablet (Xarelto) 15 mg PO BIDWMEAL 1 05/05/24 03/04/25 History tamsulosin 0.4 mg capsule 0.4 mg PO DAILY 03/04/2512/19 History New Prescriptions to Start Prescriptions: Allergies Allergy/AdvReac Type Severity Reaction Status Date / Time Penicillins (PENICILLINS) Allergy Unknown I-ITCHING Verified 03/04/25 10:57 Assessment and Plan *Assessment and plan (1) Severe sepsis: Status: Acute Category: Medical Code(s): A41.9 - Sepsis, unspecified organism; R65.20 - Severe sepsis without septic shock (2) NSTEMI (non-ST elevated myocardial infarction): Status: Acute Category: Medical Code(s): I21.4 - Non-ST elevation (NSTEMI) myocardial infarction (3) Atrial flutter: Status: Acute Category: Medical Code(s): I48.92 - Unspecified atrial flutter (4) Pneumonia: Status: Acute Category: Medical Code(s): J18.9 - Pneumonia, unspecified organism (5) Acute on chronic heart failure with preserved ejection fraction (HFpEF): Status: Acute Category: Medical Code(s): I50.33 - Acute on chronic diastolic (congestive) heart failure (6) CAD (coronary artery disease): Status: Chronic Qualifiers: Coronary Disease-Associated Artery/Lesion type: [place] artery [place] vs. transplanted heart: [place] heart Associated angina: without angina Qualified Code(s): I25.10 - Atherosclerotic heart disease of [place] coronary artery without angina pectoris Category: Medical Code(s): I25.10 - Atherosclerotic heart disease of [place] coronary artery without angina pectoris (7) HTN (hypertension): Status: Chronic Qualifiers: Hypertension type: essential hypertension Qualified Code(s): I10 - Essential (primary) hypertension Category: Medical Code(s): I10 - Essential (primary) hypertension (8) HLD (hyperlipidemia): Status: Chronic Qualifiers: Hyperlipidemia type: mixed hyperlipidemia Qualified Code(s): E78.2 - Mixed hyperlipidemia Category: Medical Code(s): E78.5 - Hyperlipidemia, unspecified (9) Iron deficiency anemia: Status: Chronic Qualifiers: Iron deficiency anemia type: unspecified iron deficiency Qualified Code(s): D50.9 - Iron deficiency anemia, unspecified Category: Medical Code(s): D50.9 - Iron deficiency anemia, unspecified (10) T2DM (type 2 diabetes mellitus): Problem Comment: On tirzepatide Status: Chronic Qualifiers: Diabetes mellitus technician terminal and repeater insulin use: without technician terminal and repeater use Diabetes mellitus complication status: with circulatory complication Diabetes mellitus complication detail: with other circulatory complications Qualified Code(s): E11.59 - Type 2 diabetes mellitus with other circulatory complications Category: Medical Code(s): E11.9 - Type 2 diabetes mellitus without complications (11) A-fib: Status: Acute Qualifiers: Atrial fibrillation type: paroxysmal Qualified Code(s): I48.0 - Paroxysmal atrial fibrillation Category: Medical Code(s): I48.91 - Unspecified atrial fibrillation (12) History of brachytherapy: Status: Acute Category: Surgical Code(s): Z92.3 - Personal history of irradiation Plan Plan: 1. The patient was admitted to the hospital for severe sepsis. He is getting IV antibiotics. Will defer to the hospitalist. His urine cultures and blood cultures are currently pending. The patient is being treated for pneumonia. 2. The patient is still having nonbloody diarrhea. Will obtain stool cultures and a sample for C. difficile. 3. The patient is having acute on chronic HFpEF. Will diurese him with Bumex 1 mg IV twice daily. 4. The patient was in atrial fibrillation/flutter with RVR on admission. His heart rate was in 160s. He was started on amiodarone drip. He has converted to sinus rhythm with a rate in the 70s and 80s today. He has been started on oral amiodarone 400 mg 3 times daily. He will need to remain on amiodarone 400 mg 3 times daily for 2 weeks then 400 mg 2 times daily for 2 weeks then 200 mg 2 times daily for 2 weeks then 200 mg daily thereafter. 5. The patient does have a history of coronary artery disease. He does have an elevated troponin which is most likely from demand ischemia and his recent brachytherapy. No plans for invasive left cardiac catheterization at this time. Continue Plavix. 6. His blood pressure is well-controlled. On metoprolol. 7. His LDL goal is less than 55. His LDL is 36. He is on a statin. 8. The patient has chronic kidney disease. His creatinine is stable. 9. The patient is on Xarelto for long-term anticoagulation secondary to known atrial fibrillation/flutter. 10. Further recommendations will be made pending the patient's response to treatment. Thank you for the opportunity to help participate in the care of this patient. All recommendations and orders are per Dr. Mckeon.
[2025-03-05 16:39] LABS: POC Glucose,Bedside 160 gm/dL (70-110)
[2025-03-05 21:11] LABS: Microscopic, Urine URINE MICROSCOPIC (MICROSCOPIC)
--- NOTE | 2025-03-05 21:15 | PC.NURSE ---
Patient arrived to floor via bed from ICU at 21:02.
[2025-03-05] MEDS: ATORVASTATIN 40MG TABLET 40 MG PO (21:21)
[2025-03-05] MEDS: FAMOTIDINE 20MG TABLET 40 MG PO (21:21)
[2025-03-05] MEDS: PANTOPRAZOLE 40MG TABLET 40 MG PO (21:21)
[2025-03-05 21:50] LABS: POC Glucose,Bedside 165 gm/dL (70-110)
[2025-03-05 21:58] LABS: C. difficile PCR (HMH) Positive (Neagtive)
[2025-03-05 21:58] LABS: Bilirubin,Urine Negative (Negative); Color,Urine YELLOW (Yellow); Glucose,Urine (UA) 2+ (Negative); Ketones,Urine Negative (Negative); Leukocyte Esterase,Urine Negative (Negative); PH,Urine 6.0 (5.0-8.5); Protein,Urine TRACE (Negative); Specific Gravity, Urine 1.025 (1.005-1.030); Urobilinogen,Urine 0.2 EU/dl (0.2)
[2025-03-05 22:16] LABS: Bacteria,Urine Trace /lpf; WBC,Urine Occasional #/hpf (0-3)
--- NOTE | 2025-03-05 23:21 | PC.NURSE ---
Report called to Caron FAULKNER at [phone]
[2025-03-06] VITALS: PULSE 87
[2025-03-06] MEDS: CEFEPIME HCL 2 GM in 0.9 % SODIUM CHLORIDE 100 ML IV ×2 (01:08→12:43)
--- NOTE | 2025-03-06 02:11 | PC.NURSE ---
Pt transfer from unit this shift. AOx4, pleasant. CDIFF+, hospitalist notified. Tolerating room air. Respirations even and unlabored. Resting in bed with eyes open. Denies pain or any additional needs at this time. Bed is low, locked, and call light is in reach.
[2025-03-06 04:00] VITALS: BP 128/66; PULSE 88; PULSE 96; RESP 17; TEMP 37; O2SAT 97; BMI 29.4
[2025-03-06] MEDS: humaLOG 100 UNITS/ML 10ML VIAL (SSI) SUBCUT (05:24)
[2025-03-06 05:27] LABS: POC Glucose,Bedside 209 gm/dL (70-110)
[2025-03-06 07:36] VITALS: BP 123/70; PULSE 82; RESP 18; TEMP 36.8; O2SAT 97
[2025-03-06 08:00] VITALS: PULSE 110
--- NOTE | 2025-03-06 08:12 | EXP.DC.SUM ---
General Admission date:: 03/04/25 Discharge date: 03/06/25 HPI HPI HPI: Mr. Alford is a 74-year-old male with significant CAD history, A-fib, GERD., Diabetes, on chronic anticoagulation. He initially presented to cardiology for follow-up after PCI with recent brachytherapy at [facility] last Monday in [place] on arrival to cardiology clinic, patient found to be tachycardic, febrile, concern for sepsis. Was sent to the ER for further evaluation. On arrival to the ER, patient's temperature was 102.5, heart rate in the 160s. On room air. Initial workup with white count of 8, patient does report fever and chills for the last few days at home and has not felt well since his brachytherapy. Reports some shortness of breath worse over the past few weeks. Also complains of nonbloody diarrhea that began yesterday. Some nausea but no emesis. Denies productive cough. No dysuria. Further workup showed stable kidney function with BUN 19, creatinine 1.6. In light of his atrial flutter, cardiology was consulted and recommended amiodarone drip. Initiated on empiric antibiotics for suspected sepsis versus SIRS. Cultures obtained. Medicine consulted for admission and further management. On arrival to the floor, patient is feeling a little bit better after his fever broke with Tylenol. On room air. Still feels quite ill. Reports increased welling in his legs but also reports chronic lymphedema. Alert and oriented on exam. Hospital Course Hospital Course Hospital Course: 74-year-old male with complex cardiac history and significant CAD who recently underwent brachytherapy at [facility] in [place]. Presented for follow-up today and meeting sepsis criteria with fever of 102.5, tachycardia, concern for shortness of breath along with diarrhea as possible sources of his infection. Initiated on empiric antibiotics. Received IV fluid bolus and Tylenol with improvement in heart rate. Given persistent A-flutter, initiated on amiodarone drip at the recommendation of cardiology. Discussed case with ER provider, request admission for further management. Decided to admit to ICU for further treatment with amiodarone. Cardiology evaluated today, recommend diuresis. Continues to require patient management. Continuing amiodarone drip. Problems addressed as follows Severe sepsis secondary to C. difficile colitis -Initially had an unclear source but meeting criteria with fever of 102.5, tachycardia, diarrhea with mild inflammation noted on imaging of abdomen. Started empiric antibiotics. Stool panel returned positive for C. difficile. Transition to oral vancomycin 125 mg 4 times a day to complete 10-day course. White count has remained normal during admission. Did have some low potassium necessitating replacement. Patie need of some centimeters rhesus. Increase in his daily. Will initiate potassium placement at daily. Caution with risk for hyperkalemia in the setting of use of finerenone. Will need labs at follow-up with PCP/cardiology. Atrial flutter NSTEMI, type II secondary to supply/demand mismatch of a flutter and sepsis -Initiated on amiodarone drip on arrival. Heart rate showed improvement. Cardiology was consulted to assist with care. Overall A-fib did better. Had NSTEMI with elevation in troponin but no plan for intervention at this time. Transition to oral amiodarone. Initiated on improve diuresis given elevated BNP of 4000 and edema in his legs. Adjustments to cardiac medications as follows: The patient will be discharged on the following cardiac medications: Amiodarone 400 mg twice daily for 2 weeks then 200 mg twice daily for 2 weeks then 200 mg daily thereafter Atorvastatin 40 mg p.o. nightly Bumex 1 mg p.o. twice daily Pletal 100 mg p.o. twice daily Xarelto 15 mg daily Plavix 75 mg daily sirolimus 1 mg 3 times daily cont metoprolol Diabetes: Continue home combo insulin 75/25 at discharge. A1c 7.5 on 02/24 BPH: Continue tamsulosin 0.4 mg daily GERD: Continue pantoprazole 40 mg nightly Total time spent on discharge 32 minutes in counseling, documentation, chart review, and direct care with patient. Exam Data for Last 24 hours Vital signs and Labs for Last 24 Hours: Temp Pulse Resp BP Pulse Ox O2 Del Method 98.3 F 82 18 123/70 97 Room Air 03/06/25 07:36 03/06/25 07:36 03/06/25 07:36 03/06/25 07:36 03/06/25 07:36 03/06/25 08:00 Laboratory Results - last 24 hr 03/05/25 05:49: WBC 5.7 D, RBC 4.20 L, Hgb 9.1 L D, Hct 28.5 L, MCV 67.9 L, MCH 21.2 L, MCHC 31.2 L, RDW 20.7 H, Plt Count 217 D, MPV 9.8, Neut % (Auto) 75.6, Lymph % (Auto) 9.3 L, [place] % (Auto) 14.3 H, Eos % (Auto) 0.3, Baso % (Auto) 0.2, Neut # (Auto) 4.3, Lymph # (Auto) 0.5 L, [place] # (Auto) 0.8, Eos # (Auto) 0.0, Baso # (Auto) 0.0, Total Counted 100, Neutrophils % (Manual) 81 H, Lymphocytes % (Manual) 14, Monocytes % (Manual) 5, Platelet Estimate Normal, RBC Morphology Normal 03/05/25 11:00: POC Glucose 203 H 03/05/25 13:55: Stl C. difficile PCR Positive A 03/05/25 16:31: POC Glucose 160 H 03/05/25 20:54: Urine Color Yellow, Urine Appearance Clear, Urine pH 6.0, Ur Specific [place] 1.025, Urine Protein Trace, Urine Glucose (UA) 2+, Urine Ketones Negative, Urine Blood Negative, Urine Nitrate Negative, Urine Bilirubin Negative, Urine Urobilinogen 0.2, Ur Leukocyte Esterase Negative, Urine RBC None, Urine WBC Occasional, Ur Squamous Epith Cells None, Urine Bacteria Trace 03/05/25 21:16: POC Glucose 165 H 03/06/25 05:20: POC Glucose 209 H I & O for Last 24 hours: Intake & Output 03/03/25 03/04/25 03/05/25 03/06/25 23:59 23:59 23:59 23:59 Intake Total 2010.907 / 2010.907 1424.093 / 1646.093 322 / 322 Output Total 1050 / 1050 1650 / 1650 0 / 0 Balance 961.907 / 961.907 -225.907 / -3.907 322 / 322 Weight 88.536 kg 88.768 kg 90.038 kg Microbiology Reports for the Last 24 Hours: Microbiology 03/04/25 11:48 Blood Blood Culture - Preliminary NO GROWTH AFTER 24 HOURS 03/04/25 11:48 Blood Blood Culture - Preliminary NO GROWTH AFTER 24 HOURS Constitutional Constitutional: no acute distress, obese, chronically ill appearing and cooperative *Routine HEENT Exam Head: Present normocephalic Eye: Present EOMI and PERRL ENT: Present mucous membranes moist *Routine Neck Exam Neck: Present supple; Absent lymphadenopathy *Routine Respiratory Exam Respiratory: Present CTA bilaterally; Absent rhonchi, wheezes or crackles *Routine Cardiovascular Exam Cardiovascular: Present RRR *Routine Abdominal Exam Abdominal: Present soft and normoactive bowel sounds; Absent tenderness *Routine Rectal Exam Patient deferred: visual exam *Routine Exam Patient deferred: penile exam *Routine Extremities Exam Extremities: Present edema (2-3+ in BLE, improving, minimal erythema from chronic stasis); Absent cyanosis or clubbing *Routine Skin Exam Skin: Present warm; Absent rash *Routine Neurological Exam Neurological: Present alert, oriented X3 and moving all extremities; Absent altered mental status Results Data Completed and Pending Labs on day of discharge: Labs from last 24 hours 03/06/25 03/05/25 03/05/25 05:20 21:16 20:54 WBC RBC Hgb Hct MCV MCH MCHC RDW Plt Count MPV Neut % (Auto) Lymph % (Auto) [place] % (Auto) Eos % (Auto) Baso % (Auto) Neut # (Auto) Lymph # (Auto) [place] # (Auto) Eos # (Auto) Baso # (Auto) Total Counted Neutrophils % (Manual) Lymphocytes % (Manual) Monocytes % (Manual) Platelet Estimate RBC Morphology POC Glucose 209 H 165 H Urine Color Yellow Urine Appearance Clear Urine pH 6.0 Ur Specific [place] 1.025 Urine Protein Trace Urine Glucose (UA) 2+ Urine Ketones Negative Urine Blood Negative Urine Nitrate Negative Urine Bilirubin Negative Urine Urobilinogen 0.2 Ur Leukocyte Esterase Negative Urine RBC None Urine WBC Occasional Ur Squamous Epith Cells None Urine Bacteria Trace Stl C. difficile PCR 03/05/25 03/05/25 03/05/25 16:31 13:55 11:00 WBC RBC Hgb Hct MCV MCH MCHC RDW Plt Count MPV Neut % (Auto) Lymph % (Auto) [place] % (Auto) Eos % (Auto) Baso % (Auto) Neut # (Auto) Lymph # (Auto) [place] # (Auto) Eos # (Auto) Baso # (Auto) Total Counted Neutrophils % (Manual) Lymphocytes % (Manual) Monocytes % (Manual) Platelet Estimate RBC Morphology POC Glucose 160 H 203 H Urine Color Urine Appearance Urine pH Ur Specific [place] Urine Protein Urine Glucose (UA) Urine Ketones Urine Blood Urine Nitrate Urine Bilirubin Urine Urobilinogen Ur Leukocyte Esterase Urine RBC Urine WBC Ur Squamous Epith Cells Urine Bacteria Stl C. difficile PCR Positive A 03/05/25 05:49 WBC 5.7 D RBC 4.20 L Hgb 9.1 L D Hct 28.5 L MCV 67.9 L MCH 21.2 L MCHC 31.2 L RDW 20.7 H Plt Count 217 D MPV 9.8 Neut % (Auto) 75.6 Lymph % (Auto) 9.3 L [place] % (Auto) 14.3 H Eos % (Auto) 0.3 Baso % (Auto) 0.2 Neut # (Auto) 4.3 Lymph # (Auto) 0.5 L [place] # (Auto) 0.8 Eos # (Auto) 0.0 Baso # (Auto) 0.0 Total Counted 100 Neutrophils % (Manual) 81 H Lymphocytes % (Manual) 14 Monocytes % (Manual) 5 Platelet Estimate Normal RBC Morphology Normal POC Glucose Urine Color Urine Appearance Urine pH Ur Specific [place] Urine Protein Urine Glucose (UA) Urine Ketones Urine Blood Urine Nitrate Urine Bilirubin Urine Urobilinogen Ur Leukocyte Esterase Urine RBC Urine WBC Ur Squamous Epith Cells Urine Bacteria Stl C. difficile PCR Preliminary micro results at discharge 03/04/25 11:48 Blood Culture - Preliminary Blood NO GROWTH AFTER 24 HOURS 03/04/25 11:48 Blood Culture - Preliminary Blood NO GROWTH AFTER 24 HOURS DS: Diagnosis Discharge Diagnosis (1) Severe sepsis: Status: Acute Code(s): A41.9 - Sepsis, unspecified organism; R65.20 - Severe sepsis without septic shock (2) (HFpEF) heart failure with preserved ejection fraction: Status: Acute Code(s): I50.30 - Unspecified diastolic (congestive) heart failure (3) A-fib: Status: Acute Code(s): I48.91 - Unspecified atrial fibrillation Qualifiers: Atrial fibrillation type: paroxysmal Qualified Code(s): I48.0 - Paroxysmal atrial fibrillation (4) Atrial flutter: Status: Acute Code(s): I48.92 - Unspecified atrial flutter (5) NSTEMI (non-ST elevated myocardial infarction): Status: Acute Code(s): I21.4 - Non-ST elevation (NSTEMI) myocardial infarction (6) GERD (gastroesophageal reflux disease): Status: Acute Code(s): K21.9 - Gastro-esophageal reflux disease without esophagitis Qualifiers: Esophagitis bleeding: without hemorrhage Esophagitis presence: with esophagitis Qualified Code(s): K21.00 - Gastro-esophageal reflux disease with esophagitis, without bleeding (7) BPH loc w urin obs/LUTS: Status: Acute Code(s): N40.1 - Benign prostatic hyperplasia with lower urinary tract symptoms (8) Lymphedema: Status: Acute Code(s): I89.0 - Lymphedema, not elsewhere classified (9) MCFP (current) use of anticoagulants: Status: Acute Code(s): Z79.01 - associate pathologist (current) use of anticoagulants (10) T2DM (type 2 diabetes mellitus): Status: Chronic Code(s): E11.9 - Type 2 diabetes mellitus without complications Qualifiers: Diabetes mellitus complication detail: with other circulatory complications Diabetes mellitus complication status: with circulatory complication Diabetes mellitus public health microbiologist insulin use: without public health microbiologist use Qualified Code(s): E11.59 - Type 2 diabetes mellitus with other circulatory complications Problem details: On tirzepatide (11) CAD (coronary artery disease): Status: Chronic Code(s): I25.10 - Atherosclerotic heart disease of [place] coronary artery without angina pectoris Qualifiers: Associated angina: without angina Coronary Disease-Associated Artery/Lesion type: [place] artery [place] vs. transplanted heart: [place] heart Qualified Code(s): I25.10 - Atherosclerotic heart disease of [place] coronary artery without angina pectoris Problem details: Recent stent procedure 10/2024 (12) Iron deficiency anemia: Status: Chronic Code(s): D50.9 - Iron deficiency anemia, unspecified Qualifiers: Iron deficiency anemia type: unspecified iron deficiency Qualified Code(s): D50.9 - Iron deficiency anemia, unspecified (13) C. difficile diarrhea: Status: Acute Code(s): A04.72 - Enterocolitis due to Clostridium difficile, not specified as recurrent (14) History of brachytherapy: Status: Acute Code(s): Z92.3 - Personal history of irradiation (15) Acute on chronic heart failure with preserved ejection fraction (HFpEF): Status: Acute Code(s): I50.33 - Acute on chronic diastolic (congestive) heart failure Meds Home Medications and Allergies Home Medications ?Medication ?Instructions ?Recorded ?Confirmed ?Type atorvastatin 40 mg tablet 40 mg PO HS 30 days #90 tabs 06/25/24 03/04/25 Rx omeprazole 40 mg capsule,delayed 40 mg PO DAILY 07/30/24 03/04/25 History release folic acid 1 mg tablet 1 mg PO DAILY #90 tabs 08/05/24 03/04/25 Rx clopidogrel 75 mg tablet 75 mg PO DAILY #90 tabs 11/06/24 03/04/25 Rx Diabetic Shoes (DME) #1 ea 12/04/24 03/04/25 Rx tramadol 50 mg tablet 100 mg PO TIDP PRN Moderate Pain 12/23/24 03/04/25 History (Scale Score 5-6) dapagliflozin propanediol 10 mg 10 mg PO DAILY #90 tabs 12/25/24 03/04/25 Rx tablet (Farxiga) fluticasone propionate 50 2 spray intranasal BID 90 days #90 12/26/24 03/04/25 Rx mcg/actuation nasal grams spray,suspension (Flonase Allergy Relief) Dexcom G7 Sensor (blood-glucose #9 ea 02/03/25 03/04/25 Rx sensor) Humalog Mix 75-25 KwikPen U-100 20 unit (0.2 mL) SQ BID #45 mL 02/03/25 03/04/25 Rx insulin 100 unit/mL subcutaneous pen (insulin lispro protamin-lispro) pen needle, diabetic 32 gauge x #100 ea 02/11/25 03/04/25 Rx 1/6 cilostazol 100 mg tablet 100 mg PO BID 02/18/25 03/04/25 History finerenone 20 mg tablet 20 mg PO DAILY 02/18/25 03/04/25 History Mounjaro 2.5 mg/0.5 mL 2.5 mg (0.5 mL) SQ WEEKLY 3 months 02/24/25 03/04/25 Rx subcutaneous pen injector #6 mL (tirzepatide) Held on 03/06/25. Instructions: until completes PO antibiotics albuterol sulfate 90 mcg/actuation 2 puff inhalation Q4HP PRN 03/04/25 03/04/25 History aerosol inhaler Shortness Of Breath cyclobenzaprine 10 mg tablet 10 mg PO Q8HP PRN muscle spasm 03/04/25 03/04/25 History famotidine 40 mg tablet 40 mg PO HS 03/04/25 03/04/25 History lidocaine 5 % topical patch 1 patch topical DAILY 03/04/25 03/04/25 History metformin 1,000 mg tablet 1,000 mg PO BID 03/04/25 03/04/25 History metoprolol succinate 50 mg 50 mg PO DAILY 03/04/25 03/04/25 History tablet,extended release 24 hr ondansetron HCl 4 mg tablet 4 mg PO Q8HP PRN nausea and 03/04/25 03/04/25 History vomiting tamsulosin 0.4 mg capsule 0.4 mg PO DAILY 03/04/25 03/04/25 History amiodarone 200 mg tablet 400 mg (2 x 200 mg) PO BID 30 days 03/06/25 Rx #120 tabs bumetanide 1 mg tablet 1 mg PO BIDL #60 tabs 03/06/25 Rx potassium chloride 20 mEq 20 meq PO DAILY #30 tabs 03/06/25 Rx tablet,extended release (K-Tab) rivaroxaban 15 mg tablet (Xarelto) 15 mg PO DAILY 30 days #0 tabs 03/06/25 03/04/25 Rx sirolimus 1 mg tablet 3 mg PO DAILY 03/06/25 03/06/25 History vancomycin 50 mg/mL oral solution 125 mg (2.5 mL) PO QID #150 mL 03/06/25 Rx (Firvanq) New Prescriptions to Start Prescriptions: amiodarone De Palacio bumetanide De Palacio potassium chloride [K-Tab] De Palacio vancomycin [Firvanq] De Palacoi Allergies Allergy/AdvReac Type Severity Reaction Status Date / Time Penicillins (PENICILLINS) Allergy Unknown I-ITCHING Verified 03/04/25 10:57 Discharge Plan Disposition Patient Disposition: Home, Self-Care Condition: Fair Discharge Order Discharge Orders: Discharge Order (Routine); Ordered 03/06/25 Ordered By: De Palacio Follow up Plan Follow up with: Nereyda Clark APRN [Nurse Practitioner, Cardiology] - 03/12/25 1:45 pm Columba Rodríguez APRN [Primary Care Provider, Family Practice] - 03/13/25 8:40 am Prescriptions/Medication Reconciliation: New vancomycin [Firvanq] 50 mg/mL Recon Soln 125 mg PO QID Qty: 150 0RF amiodarone 200 mg Tablet 400 mg PO BID 30 Days Qty: 120 0RF bumetanide 1 mg tablet 1 mg PO BIDL Qty: 60 0RF potassium chloride [K-Tab] 20 mEq tablet extended release 20 meq PO DAILY Qty: 30 0RF Continued tramadol 50 mg tablet 100 mg PO TIDP PRN (Reason: Moderate Pain (Scale Score 5-6)) fluticasone propionate [Flonase Allergy Relief] 50 mcg/actuation spray,suspension 2 spray intranasal BID 90 Days Qty: 90 3RF Rx Instructions: administer into each nostril dapagliflozin propanediol [Farxiga] 10 mg tablet 10 mg PO DAILY Qty: 90 3RF cilostazol 100 mg tablet 100 mg PO BID finerenone 20 mg tablet 20 mg PO DAILY (DME) Diabetic Shoes (DME) Misc See Rx Instructions .ROUTE .MEDSUPPLY Qty: 1 0RF Rx Instructions: [facility] Please dispense ONE (1) pair of Diabetic Shoes with inserts clopidogrel 75 mg tablet 75 mg PO DAILY Qty: 90 3RF (DME) Dexcom G7 Sensor Device See Rx Instructions .MEDSUPPLY Qty: 9 3RF Rx Instructions: Use 1 sensor for every 10 days insulin lispro protamin-lispro [Humalog Mix 75-25 KwikPen] 100 unit/mL (75-25) insulin pen 20 unit SQ BID Qty: 45 0RF Rx Instructions: Take 20 units twice daily before meals atorvastatin 40 mg tablet 40 mg PO HS 30 Days Qty: 90 2RF (DME) pen needle, diabetic 32 gauge x 1/6 needle See Rx Instructions .MEDSUPPLY Qty: 100 5RF Rx Instructions: As directed omeprazole 40 mg capsule,delayed release(DR/EC) 40 mg PO DAILY folic acid 1 mg tablet 1 mg PO DAILY Qty: 90 0RF cyclobenzaprine 10 mg tablet 10 mg PO Q8HP PRN (Reason: muscle spasm) tamsulosin 0.4 mg capsule 0.4 mg PO DAILY metformin 1,000 mg tablet 1,000 mg PO BID albuterol sulfate 90 mcg/actuation HFA aerosol inhaler 2 puff inhalation Q4HP PRN (Reason: Shortness Of Breath) metoprolol succinate 50 mg tablet extended release 24 hr 50 mg PO DAILY ondansetron HCl 4 mg tablet 4 mg PO Q8HP PRN (Reason: nausea and vomiting) famotidine 40 mg tablet 40 mg PO HS lidocaine 5 % adhesive patch,medicated 1 patch topical DAILY sirolimus 1 mg tablet 3 mg PO DAILY Changed Xarelto 15 mg tablet 15 mg PO DAILY 30 Days Qty: 0 0RF Held Mounjaro 2.5 mg/0.5 mL pen injector 2.5 mg SQ WEEKLY 90 Days Qty: 6 3RF Hold Instructions: until completes PO antibiotics Problem Reconciliation Problems Reviewed?: Yes Patient Discharge Instructions ACTIVITY: Continue current activity DIET: continue same diet Patient Instructions: DI for Pneumonia in Adults, DI for Atrial Flutter, DI for C difficile Antibiotic-associated Colitis, DI for Sepsis in Adults Print Language: Amharic Providers Primary Care Provider: Columba Rodríguez Admit Provider: De Palacio Attending Provider: De Palacio
[2025-03-06] MEDS: CLOPIDOGREL 75MG TAB 75 MG PO (08:27)
[2025-03-06] MEDS: CILOSTAZOL 100MG TABLET 100 MG PO (08:27)
[2025-03-06] MEDS: AMIODARONE 200MG TABLET 400 MG PO (08:28)
[2025-03-06] MEDS: TAMSULOSIN 0.4MG CAPSULE 0.4 MG PO (08:31)
[2025-03-06] MEDS: METOPROLOL SUCCINATE XL 50MG TABLET 50 MG PO (08:31)
[2025-03-06 08:38] LABS: POC Glucose,Bedside 189 gm/dL (70-110)
[2025-03-06 08:46] LABS: POC Glucose,Bedside 110 gm/dL (70-110)
--- NOTE | 2025-03-06 08:55 | [facility].PHAAMS2 ---
- Antimicrobial Stewardship Review culture & sensitivity review Stewardship interventions: culture & sensitivity review (CURRENTLY ON PO AND IV VANCOMYCIN, C DIFF POSITIVE.)
[2025-03-06 09:50] LABS: Hematocrit 28.1 % (42.0-52.0); Hemoglobin 8.6 g/dL (14.1-18.0); Immature Granulocytes % 0.3 %; Mean Corpuscular HGB Conc 30.6 g/dL (31.8-35.4); Mean Corpuscular Hemoglobin 20.9 pg (27.0-31.2); Mean Corpuscular Volume 68.4 fl (80-94); Nucleated Red Blood Cells % 0 %; Platelet Count 206 K/mm3 (142-424); Red Blood Count 4.11 M/mm3 (4.60-6.20); Red Cell Distribution Width-SD 51.3 fL; White Blood Count 3.7 K/mm3 (4.8-10.8)
[2025-03-06 09:57] LABS: Chloride 104 mmol/L (98-107); Sodium 133 mmol/L (136-145)
[2025-03-06 10:00] LABS: Blood Urea Nitrogen 19 mg/dl (9-20); Creatinine Clearance Estimated 65 mL/min (50-200); Creatinine,Serum 1.30 mg/dl (0.66-1.25); Estimated Glomerular Filt Rate 54 ml/min (>60); GFR (African American) 66 ML/MIN (>60)
[2025-03-06 10:01] LABS: Anion Gap 14.9 mEq/L (5-15); Calcium 7.9 mg/dl (8.4-10.2); Carbon Dioxide 17 mmol/L (22.0-30.0); Glucose 177 mg/dl (74-100)
[2025-03-06 10:09] LABS: Potassium 2.9 mmoL/L (3.5-5.1)
[2025-03-06 10:11] LABS: Hypochromasia 2+; Microcytosis 2+; Total Cells Counted 100
[2025-03-06 11:03] LABS: POC Glucose,Bedside 214 gm/dL (70-110)
[2025-03-06] MEDS: VANCOMYCIN HCL 50MG/ML 150ML KIT 125 MG PO ×2 (11:07→12:43)
--- NOTE | 2025-03-06 11:30 | P.PN_ITS ---
Subjective Subjective Date: 03/06/25 Time: 09:30 Principal diagnosis: sepsis Interval history: This is a 74-year-old gentleman who presented to cardiology clinic and was subsequently admitted to the hospital with sepsis. He had recently had brachytherapy. When he got to the emergency department his final been atrial fibrillation with RVR and had a temperature of 102.5. Patient had been complaining of fever and chills. The patient was started on amiodarone drip for his atrial fibrillation and did convert to sinus rhythm. He was started on IV antibiotics. He states he is feeling so much better now. He is also being treated for an acute on chronic exacerbation of HFpEF. He is getting IV diuretics. His lower extremity edema has improved. The patient is very eager to be discharged home today. He denies any fever, chills, nausea, vomiting. He is still having diarrhea. He did test positive for C. difficile. Exam Data for Last 24 hours Vital signs and Labs for Last 24 Hours: Temp Pulse Resp BP Pulse Ox O2 Del Method 98.3 F 110 H 18 123/70 97 Room Air 03/06/25 07:36 03/06/25 08:00 03/06/25 07:36 03/06/25 07:36 03/06/25 07:36 03/06/25 08:00 Laboratory Results - last 24 hr 03/04/25 17:38: POC Glucose 189 H 03/05/25 13:55: Stl C. difficile PCR Positive A 03/05/25 16:31: POC Glucose 160 H 03/05/25 20:54: Urine Color Yellow, Urine Appearance Clear, Urine pH 6.0, Ur Specific [place] 1.025, Urine Protein Trace, Urine Glucose (UA) 2+, Urine Ketones Negative, Urine Blood Negative, Urine Nitrate Negative, Urine Bilirubin Negative, Urine Urobilinogen 0.2, Ur Leukocyte Esterase Negative, Urine RBC None, Urine WBC Occasional, Ur Squamous Epith Cells None, Urine Bacteria Trace 03/05/25 21:16: POC Glucose 165 H 03/06/25 05:20: POC Glucose 209 H 03/06/25 08:36: POC Glucose 110 03/06/25 09:30: WBC 3.7 L D, RBC 4.11 L, Hgb 8.6 L, Hct 28.1 L, MCV 68.4 L, MCH 20.9 L, MCHC 30.6 L, RDW 20.8 H, Plt Count 206, MPV 9.8, Neut % (Auto) 74.5, Lymph % (Auto) 9.2 L, Pettis % (Auto) 13.3 H, Eos % (Auto) 2.4, Baso % (Auto) 0.3, Neut # (Auto) 2.7, Lymph # (Auto) 0.3 L, Pettis # (Auto) 0.5, Eos # (Auto) 0.1, Baso # (Auto) 0.0, Total Counted 100, Neutrophils % (Manual) 84 H, Lymphocytes % (Manual) 10, Monocytes % (Manual) 6, Platelet Estimate Normal, Hypochromasia 2+, Microcytosis 2+, Sodium 133 L, Potassium 2.9 L*, Chloride 104, Carbon Dioxide 17 L, Anion Gap 14.9, BUN 19, Creatinine 1.30 H, Estimated Creat Clear 65, Estimated GFR 54 L, Est GFR ( Amer) 66, Glucose 177 H, Calcium 7.9 L 03/06/25 10:53: POC Glucose 214 H I & O for Last 24 hours: Intake & Output 03/03/25 03/04/25 03/05/25 03/06/25 23:59 23:59 23:59 23:59 Intake Total 2010.907 / 2010.907 1424.093 / 4162.345 3554 / 1282 Output Total 1050 / 1050 1650 / 1650 0 / 0 Balance 961.907 / 961.907 -225.907 / -3.907 1282 / 1282 Weight 195 lb 3 oz 195 lb 11.2 oz 198 lb 8 oz Microbiology Reports for the Last 24 Hours: Microbiology 03/04/25 12:25 Urine,Clean Catch Urine Culture - Final No growth. 03/04/25 11:48 Blood Blood Culture - Preliminary NO GROWTH AFTER 24 HOURS 03/04/25 11:48 Blood Blood Culture - Preliminary NO GROWTH AFTER 24 HOURS Constitutional Constitutional: no acute distress and average body habitus *Routine HEENT Exam Head: Present normocephalic and atraumatic ENT: Present mucous membranes moist *Routine Neck Exam Neck: Present supple, full ROM and normal carotid upstroke; Absent JVD, carotid bruit or lymphadenopathy *Routine Respiratory Exam Respiratory: Present CTA bilaterally, normal respiratory effort, able to speak in complete sentences and symmetric chest movement *Routine Cardiovascular Exam Cardiovascular: Present RRR, Normal S1 and Normal S2; Absent murmur or gallop *Routine Abdominal Exam Abdominal: Present soft and normoactive bowel sounds; Absent tenderness, distended or organomegaly *Routine Extremities Exam Extremities: Present edema, full ROM, pulses intact and normal capillary refill; Absent cyanosis or clubbing *Routine Skin Exam Skin: Present intact and warm; Absent erythema *Routine Neurological Exam Neurological: Present alert, oriented X3 and CN II-XII intact; Absent sensory deficit or motor deficit Routine Psychiatric Exam Psychiatric: Present normal affect Progress Note: A&P Assessment and plan (1) Severe sepsis: Status: Acute (2) Acute on chronic heart failure with preserved ejection fraction (HFpEF): Status: Acute (3) A-fib: Status: Acute (4) Atrial flutter: Status: Acute (5) CAD (coronary artery disease): Problem details: Recent stent procedure 10/2024 Status: Chronic (6) GERD (gastroesophageal reflux disease): Status: Acute (7) Lymphedema: Status: Acute (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 difficile diarrhea: Status: Acute Assessment and Plan Assessment and Plan for All Diagnoses:: Plan: 1. The patient was admitted to the hospital for severe sepsis. He is getting IV antibiotics. Will defer to the hospitalist. His urine cultures and blood cultures are currently pending. 2. Patient did test positive for C. difficile. He is on vancomycin. 3. The patient is having acute on chronic HFpEF. He has been diuresed with IV Bumex. Will send him on on Bumex 1 mg p.o. daily. 4. The patient was in atrial fibrillation/flutter with RVR on admission. His heart rate was in 160s. He was started on amiodarone drip. He has converted to sinus rhythm with a rate in the 70s and 80s today. He has been started on oral amiodarone 400 mg 3 times daily. He will need to remain on amiodarone 400 mg 3 times daily for 2 weeks then 400 mg 2 times daily for 2 weeks then 200 mg 2 times daily for 2 weeks then 200 mg daily thereafter. 5. The patient does have a history of coronary artery disease. He does have an elevated troponin which is most likely from demand ischemia and his recent brachytherapy. No plans for invasive left cardiac catheterization at this time. Continue Plavix. 6. His blood pressure is well-controlled. On metoprolol. 7. His LDL goal is less than 55. His LDL is 36. He is on a statin. 8. The patient has chronic kidney disease. His creatinine is stable at 1.3. 9. The patient is on Xarelto for long-term anticoagulation secondary to known atrial fibrillation/flutter. 10. No further recommendations at this time from a cardiac standpoint. The patient can be discharged home today from a cardiac standpoint with follow-up in cardiology clinic next week. The patient will be discharged on the following cardiac medications: Amiodarone 400 mg twice daily for 2 weeks then 200 mg twice daily for 2 weeks then 200 mg daily thereafter Atorvastatin 40 mg p.o. nightly Bumex 1 mg p.o. twice daily Pletal 100 mg p.o. twice daily Xarelto 15 mg daily Plavix 75 mg daily Toprol-XL 50 mg daily Sirolimus 1 mg 3 times daily Farxiga 10 mg daily Thank you for the opportunity to help participate in the care of this patient. All recommendations and orders are per Dr. Mckeon.
[2025-03-06 11:59] VITALS: BP 110/66; PULSE 96; RESP 16; TEMP 36.9; O2SAT 100
--- NOTE | 2025-03-07 09:23 | CARE MANAGER ---
Unable to reach patient via phone to discuss recent discharge, left gerald CELESTIN.
== END 2025-03-06 16:11 | disposition home or self-care (01) | DRG 871 ==
LOC: ER 11:43 → ICU 14:15 → 2ND 03-05 20:41
PROVIDERS: Nurse Practitioner Family; Admitting Provider Internal Medicine Adolescent Medicine; Emergency Provider Emergency Medicine; PCP Family Medicine; Visit Provider Internal Medicine Adolescent Medicine
DX: A41.9 Sepsis, unspecified organism (principal); I21.A1 Myocardial infarction type 2; I50.33 Acute on chronic diastolic (congestive) heart failure; I48.92 Unspecified atrial flutter; A04.72 Enterocolitis due to Clostridium difficile, not specified as recurrent; N13.8 Other obstructive and reflux uropathy; E87.3 Alkalosis; R65.20 Severe sepsis without septic shock; I25.10 Atherosclerotic heart disease of native coronary artery without angina pectoris; I48.0 Paroxysmal atrial fibrillation; N40.1 Benign prostatic hyperplasia with lower urinary tract symptoms; I89.0 Lymphedema, not elsewhere classified; E11.51 Type 2 diabetes mellitus with diabetic peripheral angiopathy without gangrene; K21.00 Gastro-esophageal reflux disease with esophagitis, without bleeding; D50.9 Iron deficiency anemia, unspecified; E87.6 Hypokalemia; Z92.3 Personal history of irradiation; Z88.0 Allergy status to penicillin; Z79.01 Long term (current) use of anticoagulants; Z79.02 Long term (current) use of antithrombotics/antiplatelets; Z79.51 Long term (current) use of inhaled steroids; Z79.4 Long term (current) use of insulin; Z79.84 Long term (current) use of oral hypoglycemic drugs; Z79.85 Long-term (current) use of injectable non-insulin antidiabetic drugs; Z79.899 Other long term (current) drug therapy
CPT/HCPCS: 36415; 71275; 74177; 80048; 80053; 81001; 82803; 82962; 83605; 83690; 83735; 83880; 84100; 84439; 84443; 84484; 85007; 85025; 85610; 86803; 87040; 87045; 87086; 87389; 87493; 87636; 89220; 93005; 99285; J0131; J0282; J0692; J1836; J1939; J2405; J3375; J3480; J7060; J7120; Q9967

== ENCOUNTER 2025-03-07 21:22 | Observation (INO) | payer MEDICARE, SELFPAY ==
--- OUTSIDE RECORDS SUMMARY | 2025-02-28 07:10 | XMS_ITS | Encounter Summary ---
Author Organization [facility] Address [address] [place] [id number] Care Team Providers Care Bridge Welder Name Role Phone Unavailable Primary Care Provider Unavailabl e Reason for Visit * Auth/Cert Specialty Diagnoses / Procedures Referred By Contac t Referred To Contact Diagnoses Coronary stent restenosis, initial encounter Coronary stent restenosis, initial encounter [T82.010T] Procedures MD PRQ TRLUML CORONARY ANGIOPLASTY ONE ART/BRANCH MD TCAT PLACEMENT RADJ DLVR DEV SBSQ C IV BRACHYTX INTERVENTION - CORONARY CORONARY BRACHYTHERAPY Referral ID Status Reason Start Date Expiration Date Visits Re quested Visits Authorized [id number] 1 1 Encounter Details Date Type Department Care Team (Latest Contact Info) Description 02/28/2025 7:10 AM EST - 02/28/2025 2:36 PM EST Hospital Encounter Cardiovascular Recovery Unit (CVRU) [address] [place] [address] Rick Ocampo MD 3 [facility] [address] [place] [address] [id number] Coronary stent restenosis, initial encounter Discharge Disposition: Home or Self Care Social History Tobacco Use Types Packs/Day Years Used Date Smoking Tobacco: Never Passive Smoke Exposure: Never Smokeless Tobacco: Never Tobacco Cessation:Counseling Given: Not Answered Alcohol Use Standard Drinks/Week Comments Never 0 (1 standard drink = 0.6 oz pur e alcohol) Sex and Gender Information Value Date Recorded Sex Assigned at Not on file Legal Sex Male 2:42 PM EST Gender Identity Not on file Sexual Orientation Not on file documented as of this encounter Last Filed Vital Signs Vital Sign Reading Time Taken Comments Blood Pressure 107/54 02/28/2025 1:54 PM EST Pulse 54 02/28/2025 1:30 PM EST Temperature 36.8 C (98.2 F) 02/28/2025 7:39 AM EST Respiratory Rate 16 02/28/2025 1:30 PM EST Oxygen Saturation 98% 02/28/2025 12:30 PM EST Inhaled Oxygen Concentration - - Weight 87.4 kg (192 lb 9.6 oz) 02/28/2025 7:36 A M EST Height 175.3 cm (5' 9 ) 02/28/2025 7:36 AM EST Body Mass Index 28.44 02/28/2025 7:36 AM EST documented in this encounter Discharge Instructions * Discharge Instructions* Clarisse Diaz, RN - 02/28/2025 1:01 PM EST Discharge Instructions for PCI 10/2015 *YOU MUST REMAIN IN THE COMPANY OF A RESPONSIBLE ADULT FOR THE NEXT 24 HOURS* MEDICATIONS Maintain strict adherence to the medication plan as prescribed by your physician. If you have any questions or concerns about your medications, please call your physician???s office. You and or a responsible designated person should keep a list of your prescription medications, over the counter medications, and supplemental medications that you use regularly. This medication listshould be updated each time your medications, doses, or times are changed. It is very important that you bring your accurately updated list of medications or the actual medications in the original bottle to all of your physician appointments or hospital visits. 1. No lifting/straining greater than 5-10 pounds for 1 week after procedure. 2. No strenuous exercising for 7 days after procedure. 3. No driving for 24 hours. Medications Prescribed: has prescriptions Thienopyridine prescribed: Yes CHILANGO-I Prescribed: EF greater than 40% NA ARB Prescribed: EF greater than 40% NA Beta Erasto Prescribed: Yes Aspirin prescribed: No Other reasons documented by physician/advanced practice nurse/physician assistant boiler operator (physician/ZIGZAG ELASTIC ATTACHER/[place]) or pharmacist Statin prescribed: Yes Antithrombotic prescribed: N/A-Not an Ischemic Stroke patient Anticoagulant prescribed:No- No Atrial Fibrillation NUTRITION You may resume your usual diet GENERAL DRIVING: In the first 24 hours, do not drive, operate heavy equipment or hazardous machinery after the procedure or while taking pain medications WOUND CARE DURING THE FIRST 24 HOURS FOLLOWING YOUR PROCEDURE Keep procedure site dressing dry and intact. AFTER 24 HOURS You may shower ONLY - Do not submerge/soak in a bathtub, hot tub or swimming pool until the puncture site is completely healed (usually 5 - 7 days). You may remove the dressing from the procedure site at the time of first shower. Dry thoroughly after showers and place a Band-aid style adhesive dressing over the site until site is completely healed. Keep the site clean and dry to prevent infection. DO NOT apply powder, lotion or ointment to the site. ACTIVITY During the first 24 hours following you procedure: Do not sit in the upright position or in a straight back chair Relax on a sofa, reclining chair or bed with 1 to 2 pillows behind your head. Avoid any unnecessary bending at the hips or knees. Attempt to keep affected leg straight. You may climb 1 flight of stairs once today and limit walking to bathroom visits only. After 24 hours Avoid strenuous activities such as running, vigorous exercise, stair climbing or sexual activity for 5-7 days. Do not lift greater than 5-10 pounds for 5-7 days Call your doctor if one of the following occurs: Active bleeding (a continuous flow of blood) or a hematoma (a growing firmness under the skin) at the puncture site is a medical emergency. Call 911. Lie flat and have someone apply pressure to the site until emergency personnel arrive. Any of the symptoms that brought you to the hospital continue or worsen If you experience swelling, excessive pain, numbness, tingling, or coldness in the extremity used for the procedure If you develop a rash If you show any signs of an infection: redness, warmth, excessive drainage, poorly healing site, fever, or chills If you have persistent tenderness at the procedure site You gain 3 pounds or more in 24 hours You have a rapid or irregular pulse You are unable to urinate You have severe nausea, vomiting, or diarrhea You have difficulty breathing (increased shortness of breath), if you have to increase the number of pillows to sleep Call your doctor if: Your temperature is 101 degrees F or higher. Incision: If you have redness, swelling, excessive pain, lump formation, numbness, signs of infection or slight bleeding, oozing, or drainage from incision(s). If excessive bleeding occurs, hold firm, direct pressure at the site for 5-10 minutes and call 911. Return to doctor: Follow up appointments have been made -Follow up with Dr. Biggs at [facility] in [place], [place] in [address] Rick Ocampo Office SPECIAL INSTRUCTIONS *You may take acetaminophen (TYLENOL) or prescribed pain medication to alleviate any discomfort following the procedure. *No Smoking: Information regarding smoking cessation and/or risk factors associated with tobacco products given. PATIENT EDUCATION YOU AND OR A RESPONSIBLE DESIGNATED PERSON SHOULD KEEP A LIST OF YOUR PRESCRIPTION MEDICATIONS, OVER THE COUNTER MEDICATIONS AND SUPPLEMENTAL MEDICATIONS THAT YOU USE REGULARLY. THIS MEDICATION LIST SHOULD BE UPDATED EACH TIME YOUR MEDICATIONS, DOSES, OR TIMES ARE CHANGED. IT IS VERY IMPORTANT THAT YOU BRING YOUR ACCURATELY UPDATED LIST OF MEDICATIONS OR THE ACTUAL MEDICATIONS IN THE ORIGINAL BOTTLES TO ALL OF YOUR PHYSICIAN APPOINTMENTS OR HOSPITAL VISITS. Post-Transfusion Instructions Acute reactions within 12-24 hours of transfusion: Difficulty in breathing or swelling of the face and/or neck - Go to the nearest emergency room and tell the staff you have just had a blood transfusion. Please call your doctor if you have any of the signs or symptoms listed below: Fever (report temperature 101 degrees F or above), chills, or shivering Itching, rash, hives Headache Nausea, vomiting or diarrhea Delayed reactions up to 6 weeks after transfusion: Redness, swelling or inflammation at the IV site Sudden onset of cough Backache or less urine output than is normal for you Bruising or wounds that bleed (not present before transfusion) Achy joints or muscle aches not related to exercise Dizziness or confusion Symptoms of post-transfusion hepatitis may not occur for weeks. Signs include jaundice (yellowing of skin or whites of eyes), nausea, loss of appetite, chest pain, vomiting, or abdominal pain. Blood in urine, or any red or brown discoloration of urine If you have been diagnosed with Heart Failure, make a follow-up appointment with your physician or specialist. Incorporate activity and exercise into your schedule daily; weigh yourself daily; followa low sodium / low salt diet OR follow the specific activity, exercise, diet, and fluid restrictioninstructions given to you by your physician or specialist. Contact your physician or specialist if you notice worsening heart failure symptoms of difficulty breathing; increased swelling in your feet, ankles, legs, or belly; weight gain of 3 pounds or more in 24 hours OR you gain 5 pounds or more in 5 days. documented in this encounter Medications at Time of Discharge atorvastatin (LIPITOR) 40 mg Tablet Take 40 mg by mouth daily. cholecalciferol, vitamin D3, 1,250 mcg (50,000 unit) Tablet Take 1 Tablet by mouth daily. cilostazoL (PLETAL) 100 mg tabletIndications :Coronary stent restenosis, initial encounter,Pure hypercholesterole carissa,Stenosis of coronary artery stent, initial encounter Take 1 Tablet (100 mg) by mouth 2 times daily. 60 Tablet 5 02/17/2025 clopidogreL (PLAVIX) 75 mg tablet Take 75 mg by mouth daily. cyanocobalamin, Vitamin B-12, 100 mcg Tablet Take 100 mcg by mouth daily. cyclobenzaprine (FLEXERIL) 5 mg tablet Take 5 mg by mouth in the morning and at bedtime. dapagliflozin propanediol (Farxiga) 10 mg Tablet tablet Take 10 mg by mouth daily. dilTIAZem (DILACOR XR) 120 mg XR capsuleIndication s:Coronary stent restenosis, initial encounter,Pure hypercholesterole carissa,Stenosis of coronary artery stent, initial encounter Take 1 Capsule (120 mg) by mouth daily. 13 Capsule 02/17/2025 famotidine (PEPCID) 40 mg tablet Take 40 mg by mouth nightly at bedtime. finerenone (Kerendia) 20 mg Tablet Take 20 mg by mouth daily. lidocaine (LIDODERM) 5% Adhesive Patch, Medicated Apply 1 Patch to skin daily. metFORMIN (GLUCOPHAGE) 1,000 mg tablet Take 1 Tablet by mouth 2 times daily. 03/03/2025 metoprolol succinate (TOPROL) 50 mg Tablet Sustained Release 24 hr Take 1 Tablet (50 mg) by mouth daily. 03/15/2025 mupirocin (BACTROBAN) 2 % Cream Apply topically 2 times daily. nystatin (MYCOSTATIN) 100,000 unit/gram powder Apply topically. OMEPRAZOLE PO Take 40 mg by mouth in the morning. potassium chloride (MICRO-K) 10 mEq SR capsule Take by mouth. pyridoxine, vitamin B6, 100 mg tablet Take 200 mg by mouth daily. rivaroxaban (XARELTO) 15 mg Tablet Take 1 Tablet (15 mg total) by mouth daily. 03/02/2025 tamsulosin (FLOMAX) 0.4 mg sustained release capsule Take 0.4 mg by mouth nightly at bedtime. tirzepatide (Mounjaro) 2.5 mg/0.5 mL Pen Injector 2.5 mg by Subcutaneous route once weekly. traMADol (ULTRAM) 50 mg tablet Take 50 mg by mouth every 6 hours as needed for Pain. zinc gluconate 50 mg Tablet Take 50 mg by mouth daily. sirolimus (RAPAMUNE) 1 mg TabletIndications :Coronary stent restenosis, initial encounter,Pure hypercholesterole carissa,Stenosis of coronary artery stent, initial encounter Take 3 Tablets (3 mg) by mouth daily for 13 days. 39 Tablet 02/17/2025 documented as of this encounter Progress Notes * Azalia Olivas NP - 02/28/2025 11:03 AM EST [facility] Assessment: CAD - s/p PCI with brachytherapy and POBA toLM LCX per Dr. Ocampo. Plan for Same Day Post PCI discharge at 1430. Currently denies any CP/SOB. ECG shows no significant changes. Continue Plavix. Start Pletal, rapamune and diltiazem for post brachytherapy regimen. No aspirin due to increaded bleeding risk on triple therapy. HLD continue statin Orthostatic hypotension with h/o falls. Instructed to hold metoprolol for 2 weeks while taking diltiazem and check BP prior to taking diltiazem and hold this medication for SBP<110. DMII resume metformin 02/01 Disposition - Home with family. They were instructed on bleeding risks and precautions. They were instructed for any bleeding from the access site, swelling, sharp pain, or feeling of a pop, then he will lay flat and the family member will place direct pressure over the access site and dial 911. They both verbalized understanding of this. Plan: Discharge to home at 1430 if patient meets all discharge criteria. RN to call nitriles lab technician or Interventionalist front desk clerk if patient does not meet criteria. Medications changes include: Post brachytherapy regimen including Pletal, diltiazem and rapamune picked up by patient prior to admission. Continue Plavix. No aspirin per Dr. Suarez. Instructed to resume Xarelto 03/02. Counseled re: risk factor and lifestyle modification, medication compliance, andmedical follow-up. Follow up with Dr. Biggs at [facility] in [place], [place] in 2 weeks, patient and family report he has an appointment scheduled, but are not sure of the date and will confirm the date when they get home today. Patient informed they will receive a follow up phone call tomorrow. Subjective [place] is lying in bed, denies CP/SOB. Objective Physical Exam: BP 107/71 Pulse 56 Temp 98.2 ??F (36.8 ??C) (Oral) Resp 15 Ht 5' 9 (1.753 m) Wt 192 lb 9.6 oz (87.4 kg) SpO2 100% BMI 28.44 kg/m?? No intake or output data in the 24 hours ending 02/28/25 1103 Recent Weights: 02/28/25 0736 Weight: 192 lb 9.6 oz (87.4 kg) Vitals Reviewed, see nursing chart. General appearance Alert, awake, oriented x3. No distress. Neuro Gossly normal. HEENT Normocephalic, atraumatic. Eyes appear normal. Neck No lymph node enlargement. Lung Clear to auscultation bilaterally. Heart Regular rate and rhythm. S1, S2 normal. No click, rub or gallop. No murmur. No carotid bruit.No JVD. No edema. Abdomen Soft, non-tender. Bowel sounds normal. No masses, no organomegaly. Musculoskeleta No gross abnormalities. Cath Access site RFA access site without hematoma, redness, swelling, or bruising. Distal pulses intact. Denies any pain/paresthesia at access site. Pulses Distal pulses intact. Skin Skin color, texture, turgor normal. No rashes or lesions. Patient Instructions: Current Discharge Medication List CONTINUE these medications which have CHANGED Details metFORMIN (GLUCOPHAGE) 1,000 mg tablet Take 1 Tablet by mouth 2 times daily. Start date: 03/03/2025, End date: 04/02/2025 rivaroxaban (XARELTO) 15 mg Tablet Take 1 Tablet (15 mg total) by mouth daily. Start date: 03/02/2025 Comments: [email or web address] CONTINUE these medications which have NOT CHANGED Details atorvastatin (LIPITOR) 40 mg Tablet Take 40 mg by mouth daily. cholecalciferol, vitamin D3, 1,250 mcg (50,000 unit) Tablet Take 1 Tablet by mouth daily. cilostazoL (PLETAL) 100 mg tablet Take 1 Tablet (100 mg) by mouth 2 times daily. Qty: 60 Tablet, Refills: 5 Associated Diagnoses: Coronary stent restenosis, initial encounter; Pure hypercholesterolemia; Stenosis of coronary artery stent, initial encounter clopidogreL (PLAVIX) 75 mg tablet Take 75 mg by mouth daily. cyanocobalamin, Vitamin B-12, 100 mcg Tablet Take 100 mcg by mouth daily. cyclobenzaprine (FLEXERIL) 5 mg tablet Take 5 mg by mouth in the morning and at bedtime. dapagliflozin propanediol (Farxiga) 10 mg Tablet tablet Take 10 mg by mouth daily. dilTIAZem (DILACOR XR) 120 mg XR capsule Take 1 Capsule (120 mg) by mouth daily. Qty: 13 Capsule, Refills: 0 Associated Diagnoses: Coronary stent restenosis, initial encounter; Pure hypercholesterolemia; Stenosis of coronary artery stent, initial encounter famotidine (PEPCID) 40 mg tablet Take 40 mg by mouth nightly at bedtime. finerenone (Kerendia) 20 mg Tablet Take 20 mg by mouth daily. lidocaine (LIDODERM) 5% Adhesive Patch, Medicated Apply 1 Patch to skin daily. metoprolol succinate (TOPROL) 50 mg Tablet Sustained Release 24 hr Take 50 mg by mouth daily. mupirocin (BACTROBAN) 2 % Cream Apply topically 2 times daily. nystatin (MYCOSTATIN) 100,000 unit/gram powder Apply topically. OMEPRAZOLE PO Take 40 mg by mouth in the morning. potassium chloride (MICRO-K) 10 mEq SR capsule Take by mouth. pyridoxine, vitamin B6, 100 mg tablet Take 200 mg by mouth daily. sirolimus (RAPAMUNE) 1 mg Tablet Take 3 Tablets (3 mg) by mouth daily for 13 days. Qty: 39 Tablet, Refills: 0 Associated Diagnoses: Coronary stent restenosis, initial encounter; Pure hypercholesterolemia; Stenosis of coronary artery stent, initial encounter tamsulosin (FLOMAX) 0.4 mg sustained release capsule Take 0.4 mg by mouth nightly at bedtime. tirzepatide (Mounjaro) 2.5 mg/0.5 mL Pen Injector 2.5 mg by Subcutaneous route once weekly. traMADol (ULTRAM) 50 mg tablet Take 50 mg by mouth every 6 hours as needed for Pain. zinc gluconate 50 mg Tablet Take 50 mg by mouth daily. Data Review: No results for input(s): NA , K , CL , CO2 , PHOS , BUN , CREATININE in the last 72 hours. Invalid input(s): CA No results for input(s): WBC , HGB , HCT , MCV , PLT in the last 72 hours. No results found for: CKTOTAL , CKMB , CKMBINDEX , TROPONINI Lab Results Component Value Date HDL 54 02/24/2025 TRIG 104 02/24/2025 Activity: 1. No lifting/straining greater than 5-10 pounds for 1 week after procedure. 2. No strenuous exercising for 7 days after procedure. 3. No driving for 24 hours. Disposition: home Aspirin prescribed: No Other reasons documented by physician/advanced practice nurse/physician assistant boiler operator (physician/ZIGZAG ELASTIC ATTACHER/PA) or pharmacist On Plavix, Xarelto and Pletal, no aspirin per Dr. Ocampo due to increased bleeding risk on multiple blood thinning medications. Thienopyridine prescribed: Yes CHILANGO-I or ARBPrescribed: EF greater than 40% NA Beta Erasto prescribed: Yes Statin prescribed: Yes Left Ventricular Ejection Fraction (LVEF) is 55 % Echo Total time spent on this patient was >30 minutes including time spent with the patient, reviewing data, completing medical records, and communication with the patient. Signed: Azalia Olivas NP Interventional Cardiology [phone] 02/28/2025 11:03 AM [facility] * Jocy Hamm MD - 02/28/2025 10:47 AM EST Radiation Oncology Cardiac Brachytherapy Note Patient Name: [place] Alford III : 1950 DOS: 02/28/2025 Mable Alford III is a 74 y.o. male with coronary artery disease. The patient has developed restenosis in the circumflex artery. Mable Alford III underwent angioplasty of this area today and is being treated with radiation therapy following this to prevent further restenosis. The following is a summary of the radiation therapy. Mable Alford III was treated with Novoste high dose rate brachytherapy treatment system. The source length was 40 mm.; the vessel diameter was 4 mm. A dose of 23 Gy was delivered 2 mm from the distance of the source. Simulation was utilized to determine accurate placement of the catheter and the source. The treatment was delivered over 381 seconds. The dose was calculated to the distance. Mable Alford III tolerated the treatment without difficulty. He will follow up with his medical consultant. Jocy Hamm MD Radiation Oncology documented in this encounter Miscellaneous Notes * Interdisciplinary - Clarisse Diaz RN - 02/28/2025 2:34 PM EST Patient ambulated to bathroom, tolerated well. Site remains stable. All personal belongings sent with patient. Discharge instructions reviewed with patient / family. Verbalized understanding. Copy given to patient / family. Patient discharged to home, per wheelchair, with family / friend. * Interdisciplinary - Migdalia Taylor - 02/28/2025 11:50 AM EST PCI Education was provided to the patient. Please see Patient Education and/or below for more details. Information provided/reviewed. D: Cardiac Rehab Consult received for post PCI/ PPCI Education A: Patient and/or family instructed on home activity and given walking program for increasing activity. Patient and/or family received heart-healthy nutrition and eating information and/or counseling . Tobaaco Cessation information discussed and written information provided. Patient was counseled regarding benefits of participation in early outpatient cardiac rehabilitation (CR) / secondary prevention( Lipid Profile, A1C, BMI, Vital Signs). Patient was informed of choices for local programs in their area that are certified by the [place] [employer] Pulmonary [employer](AACVPR) and they are provided with contact information for these programs. R: The patient has chosen to attend [facility] [address] [place] [address] The referral was sent to this facility. Patient self reported Lifestyle Modification Goal: Goals Increase physical activity Diabetes education discussed and provided: XXX No results found for: HGBA1C , TGLYCO , GLYCOHEM * Interdisciplinary - Erin Anderson RN - 02/28/2025 11:34 AM EST Per Paulina MANUFACTURING ENGINEERING TECHNOLOGIST patient will not have asa at discharge. * Interdisciplinary - Clarisse Diaz RN - 02/28/2025 10:41 AM EST Physician speaking with patient / family. Discussed procedure and answered questions @ bedside. * Interdisciplinary - Clarisse Diaz RN - 02/28/2025 10:36 AM EST Pt arrived from [facility] lab technician. Placed patient on monitor. Obtained vitals. Right groin site unremarkable. Pt denies pain. * Op Note - Rick Ocampo MD - 02/28/2025 10:22 AM EST [address] [address] Cardiac Catheterization Report Patient Name: Mable Alford III : [id number] Age: 74 y.o. Date: 02/28/2025 Primary Care Physician: None Referring Physician: Shay Biggs Procedures performed: Left heart catheterization Selective coronary angiography Percutaneous coronary intervention with adjunct procedures as indicated Procedure: After informed consent, He was brought to the [facility]riles lab technician. He was prepped and draped in the usual sterile manner. He was sedated with Versed fentanyl. The access site was anesthetized with 2% Lidocaine.Vascular access was obtained using the modified Seldinger access technique under real-time ultrasound guidance with images saved. Access: Right femoral Charis left 4 curve short tip 7 Cuban guiding catheter Left Heart Catheterization performed to assess initial EDP for baseline to guide hemodynamics during PCI and to guide post-cath hydration for prevention of contrast-induced acute kidney injury. Selective coronary angiography was performed with multiple orthogonal views, including simultaneousdual injection angiography as needed. Catheters used: Charis left 4 curve short tip guiding catheter Following the procedure, catheter and sheath were removed over a wire and closure performed with 6 Cuban Angio-Seal. Additional comments: None Initial Findings: Relevant coronary anatomy: 60% in stent restenosis involving origin of the circumflex coronary artery from the distal left main coronary artery. Narrative of Intervention: Heparin was administered IV for anticoagulation with ACTs monitored throughout to maintain therapeutic dosing. ACT was kept greater than 200 throughout the entire procedure an Aggrastat bolus only was administered. Additional comments: The target lesion was pre-dilated with a 4.0 mm balloon kissing balloon angioplasty was performed to avoid deforming the stent in the left main left anterior descending. At this time vascular brachytherapy was performed by Dr. Maria Elena Reed of the radiation oncology service.6 minutes and 25 seconds dwell was performed without incident. There were no immediate complications and vascular access hemostasis was achieved with a single 6 Cuban Angio-Seal. He tolerated the procedure well, and no immediate complications were noted. Rick Ocampo MD [facility] *This note was completed with the help of voice recognition software. Although it was reviewed and edited in real time, there may still have been errors in transcribing words or phrases. * Interdisciplinary - Caron Aguayo RN - 02/28/2025 9:08 AM EST Pt taken to [facility] lab technician via stretcher with LUCIE Kerry * Interdisciplinary - Caron Aguayo RN - 02/28/2025 7:24 AM EST Patient admitted to [facility] from home . Nursing assessment per protocol. Bilateral groin clipped per protocol by OFFICE SERVICE COORDINATOR . Family instructed on EPIC bed tracking board. * Interdisciplinary - Steff Parr RN - 02/27/2025 10:30 AM EST Attempted to call patient for pre call for procedure tomorrow 02/28/25. No answer documented in this encounter Plan of Treatment Scheduled Orders Name Type Priority Associated Diagnoses Orde r Schedule OP CARDIAC REHAB PHASE II Card Rehab Routine One Time for 1 Occurrences starting 02/28/2025 until 02/28/2025 documented as of this encounter Goals Goal Patient Goal Type Associated Problems Recent Progress Patient-Stated? Author Increase physical activity Lifestyle No Migdalia Taylor documented as of this encounter Procedures Procedure Name Priority Date/Time Associated Diagnosis Comments POC GLU MONITORING DEVICE Routine 02/28/2025 11:03 AM EST ECG Routine 02/28/2025 10:51 AM EST CORONARY BRACHYTHERAPY Routine 10:20 AM EST Coronary stent restenosis, initial encounter INTERVENTION - CORONARY Routine 02/28/2025 10:20 AM EST Coronary stent restenosis, initial encounter POC ACT LOW RANGE Routine 02/28/2025 10: 16 AM EST POC ACT LOW RANGE Routine 02/28/2025 9:5 2 AM EST ECG STAT 02/28/2025 7:47 AM EST documented in this encounter Results * (ABNORMAL) POC GLU MONITORING DEVICE (02/28/2025 11:03 AM EST) POC Glucose Monitoring Device 149(H) 71 - 99 mg/dL [facility] Blood 02/28/2025 11:0 3 AM EST 02/28/2025 11:04 AM EST us Rick Mavsi Ocampo MD POINT OF CARE TEST ORDERABL ES Final Result [facility] [address] * ECG (02/28/2025 10:51 AM EST) Heart Rate 55 bpm [facility] QRS Interval 97 ms [facility] QT Interval 448 ms [facility] EXTE [facility] QTc Interval 429 ms [facility] P [place] 49 deg [facility] QRS [place] 39 deg [facility] T Wave [place] 47 deg [facility] P-R Interval 146 msec [facility] EX[facility] ERNA[facility] LAB 02/28/2025 10:5 1 AM EST Narrative [facility] - 03/01/2025 10:50 AM EST [facility] Test Date: 2025-02-28 10:51:41 Pat Name: [facility] Department: [facility] Room: [employer]ACOG[employer]Y TE[employer] [place] Gender: Male Immigration 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: [place] : 1950 Requested By: AZALIA Shannon Order Number: [id number] Reading MD: Damián Mir MD Interpretive Statements Sinus bradycardia Compared to the prior tracing, bradycardia is present Electronically Signed On 03-01-2025 10:50:07 EST by Damián Mir MD Procedure Note Damián Mir MD - 03/01/2025 [facility] Test Date: 2025-02-28 10:51:41 Pat Name: [facility] Department: [facility] Room: [facility] [employer] [place] Gender: Male Immigration Inspector: [place] : 1950 Requested By: AZALIA Shannon Order Number: [id number] Reading MD: Damián Mir MD Interpretive Statements Sinus bradycardia Compared to the prior tracing, bradycardia is present Electronically Signed On 03-01-2025 10:50:07 EST by Damián Mir MD us Azalia Olivas NP ECG ORDERABLES Final Result [facility] [address] [place] [address] * INTERVENTION - CORONARY, CORONARY BRACHYTHERAPY (02/28/2025 10:20 AM EST) Narrative Rick Oacmpo MD - 02/28/2025 10:32 AM EST Table formatting from the original result was not included. [facility] [address] [place] [address] Cardiac Catheterization Report Patient Name: Mable Alford III : [id number] Age: 74 y.o. Date: 02/28/2025 Primary Care Physician: None Referring Physician: Shay Biggs Procedures performed: Left heart catheterization Selective coronary angiography Percutaneous coronary intervention with adjunct procedures as indicated Procedure: After informed consent, He was brought to the nitriles lab technician. He was prepped and draped in the usual sterile manner. He was sedated with Versed fentanyl. The access site was anesthetized with 2% Lidocaine. Vascular access was obtained using the modified Seldinger access technique under real-time ultrasound guidance with images saved. Access: Right femoral Charis left 4 curve short tip 7 Cuban guiding catheter Left Heart Catheterization performed to assess initial EDP for baseline to guide hemodynamics during PCI and to guide post-cath hydration for prevention of contrast-induced acute kidney injury. Selective coronary angiography was performed with multiple orthogonal views, including simultaneous dual injection angiography as needed. Catheters used: Charis left 4 curve short tip guiding catheter Following the procedure, catheter and sheath were removed over a wire and closure performed with 6 Cuban Angio-Seal. Additional comments: None Initial Findings: Relevant coronary anatomy: 60% in stent restenosis involving origin of the circumflex coronary artery from the distal left main coronary artery. Narrative of Intervention: Heparin was administered IV for anticoagulation with ACTs monitored throughout to maintain therapeutic dosing. ACT was kept greater than 200 throughout the entire procedure an Aggrastat bolus only was administered. Additional comments: The target lesion was pre-dilated with a 4.0 mm balloon kissing balloon angioplasty was performed to avoid deforming the stent in the left main left anterior descending. At this time vascular brachytherapy was performed by Dr. Maria Elena Reed of the radiation oncology service. 6 minutes and 25 seconds dwell was performed without incident. There were no immediate complications and vascular access hemostasis was achieved with a single 6 Cuban Angio-Seal. He tolerated the procedure well, and no immediate complications were noted. Rick Ocampo MD [facility] *This note was completed with the help of voice recognition software. Although it was reviewed and edited in real time, there may still have been errors in transcribing words or phrases. Coronary Findings Diagnostic Dominance: Right Left Main: Dist LM lesion is 40% stenosed. ZARINA flow is 3. Left Circumflex: Ost Cx lesion is 60% stenosed. ZARINA flow is 3. Intervention Dist LM lesion: Angioplasty: Initial inflation pressure: 12 prakash. 2nd inflation pressure: 12 prakash. Kissing balloons Supplies Used: BLLN [place] EMERGE 4X12 Post-Intervention Lesion Assessment: Post-intervention ZARINA flow is 3. There is a 0% residual stenosis post intervention. Ost Cx lesion: Angioplasty: Initial inflation pressure: 16 prakash. 2nd inflation pressure: 18 prakash. Supplies Used: BLLN [place] EM[place]GE 4X12 Angioplasty: Initial inflation pressure: 12 prakash. 2nd inflation pressure: 12 prakash. Kissing balloons Supplies Used: BLLN [place] EM[place] 4X12 Post-Intervention Lesion Assessment: Post-intervention ZARINA flow is 3. There is a 0% residual stenosis post intervention. us Rick Ocampo MD CV CARDIAC CATH PROCEDURES Final Result * POC ACT LOW RANGE (02/28/2025 10:16 AM EST) POC ACTLR 211 seconds [facility] Comment: ACT TARGET RANGES : Line pull: <=180 seconds Interventional cardiology with GP IIb/IIIa inhibitors: 220-300 seconds Interventional cardiology without GP IIb/IIIa inhibitors: >250 seconds Peripheral and Neuroradiology: 250-300 seconds Afib ablation: MD peterson Ablation (other than Afib): MD peterson Normal range generated from normal volunteer donors: 113-149 seconds Normal range generated from hospitalized patients not receiving heparin: 89-169 seconds Target ranges are suggested ranges only. Suggested ranges are overridden by specific physician order. Whole Blood 02/28/2025 10:1 6 AM EST 02/28/2025 10:20 AM EST Rickherman Ocampo MD POINT OF CARE TEST ORDERABL ES Final Result Performing Organization Address [facility] de Phone Number [facility] [address] * POC ACT LOW RANGE (02/28/2025 9:52 AM EST) POC ACTLR 312 seconds [facility] Comment: ACT TARGET RANGES : Line pull: <=180 seconds Interventional cardiology with GP IIb/IIIa inhibitors: 220-300 seconds Interventional cardiology without GP IIb/IIIa inhibitors: >250 seconds Peripheral and Neuroradiology: 250-300 seconds Afib ablation: MD peterson Ablation (other than Afib): MD peterson Normal range generated from normal volunteer donors: 113-149 seconds Normal range generated from hospitalized patients not receiving heparin: 89-169 seconds Target ranges are suggested ranges only. Suggested ranges are overridden by specific physician order. Whole Blood 02/28/2025 9:52 AM EST 02/28/2025 9:57 AM EST Rickherman Ocampo MD POINT OF CARE TEST ORDERABL ES Final Result Performing Organization Address [facility] de Phone Number [facility] [address] * ECG (02/28/2025 7:47 AM EST) Heart Rate 70 bpm [facility] QRS Interval 95 ms [facility] EX[facility] QT Interval 395 ms [facility] EXTE [facility] QTc Interval 427 ms [facility] EX[facility]RNA[facility] LAB P [place] -28 deg [facility] QRS [place] 45 deg [facility] T Wave [place] 56 deg [facility] EXTE [facility] P-R Interval 125 msec [facility] 02/28/2025 7:47 AM EST Narrative [facility] - 03/01/2025 10:24 AM EST [facility] Test Date: 2025-02-28 07:47:24 Pat Name: [facility] Department: [facility] Room: [facility] Gender: Male Immigration Inspector: [employer] [facility] : 1950 Requested By: CLARISSE Mary Order Number: [id number] Reading MD: Damián Mir MD Interpretive Statements Sinus rhythm Electronically Signed On 03-01-2025 10:24:39 EST by Damián Mir MD Procedure Note Damián Mir MD - 03/01/2025 [facility] Test Date: 2025-02-28 07:47:24 Pat Name: [facility] Department: [facility] Room: [facility] Gender: Male Immigration Inspector: [employer] : 1950 Requested By: CLARISSE MACIEL Order Number: [id number] Reading MD: Damián Mir MD Interpretive Statements Sinus rhythm Electronically Signed On 03-01-2025 10:24:39 EST by Damián Mir MD Clarisse Adler NP ECG ORDERABLES Final R esult Performing Organization Address City/State/[facility] Co de Phone Number [facility] [address] documented in this encounter Visit Diagnoses Diagnosis Coronary stent restenosis, initial encounter- Primary Coronary stent restenosis, initial encounter documented in this encounter Admitting Diagnoses Diagnosis Coronary stent restenosis, initial encounter documented in this encounter Administered Medications Inactive Administered Medications - up to 3 most recent administrations Medication Order MAR Action Action Date Dose Rate Site acetaminophen (TYLENOL) tablet 650 mg 650 mg, Oral, EVERY 6 HOURS PRN, Mild Pain Intensity (1-3), Starting on Mon02/28/25 at 1019, Do not exceed 4 grams of acetaminophen in 24 hours from all sources alum-mag hydroxide-simeth (MINTOX MAX) 400-400-40 mg/5 mL suspension 15 mL 15 mL, Oral, EVERY 4 HOURS PRN, Heartburn, Starting on Mon02/28/25 at 1019, Shake well aspirin chewable tablet 324 mg 324 mg, Oral, PRE-PROCEDURE, Starting on Mon02/28/25 at 0711, For 1 dose, Do not give for right heart cath only Given 02/28/2025 8:19 AM EST 324 mg atropine injection 0.5 mg 0.5 mg, Intravenous, PRN, Other (enter comment), Starting on Mon02/28/25 at 1019, For Symptomatic HR less than 50/minute. May repeat every 2 minutes, two times. Call MD. clopidogreL (PLAVIX) tablet 600 mg 600 mg, Oral, PRE-PROCEDURE, Starting on Mon02/28/25 at 0711, For 1 dose Given 02/28/2025 8:24 AM EST 525 mg clopidogreL (PLAVIX) tablet 75 mg 75 mg, Oral, DAILY, First dose on Mon03/01/25 at 0900 dextrose 50 % injection 25-50 mL 25-50 mL, Intravenous, PRN, Low blood sugar, Low blood sugar and unable to take PO, Starting on Mon02/28/25 at 0711, Follow BG scale: BG 70-100 mg/dL & symptomatic = 25 ml dose. BG 50-69 mg/dL = 25 ml dose. BG less than 50 mg/dL = 50 ml dose. Document hypoglycemic event on hypoglycemic doc flow sheet. REPEAT blood glucose 15 minutes after treatment. REPEAT treatment if blood glucose still less than 70 mg/dL., Notify prescriber immediately. When BG level rises above 70 mg/dL after any treatment, continue to monitor patients BG level as ordered by prescriber. hydrALAZINE (APRESOLINE) injection 10 mg 10 mg, Intravenous, ONCE PRN, High Blood Pressure (Enter BP parameters in PRN Comment), Starting on Mon02/28/25 at 1019, For 1 dose, For line pull If HR less than or equal to 70, for SBP greater than 180, or DBP greater than 115. labetaloL (NORMODYNE;TRANDATE) injection 10 mg 10 mg, Intravenous, PRN, High Blood Pressure (Enter BP parameters in PRN Comment), Starting on Mon02/28/25 at 1019, For line pull If HR GREATER than or equal to 70, for SBP between 160-170 or DBP between 100-115/ May repeat with 20 mg every 10 Minutes times 2 doses. If still greater, contact MD. ondansetron (PF) (ZOFRAN) injection 4 mg 4 mg, Intravenous, EVERY 8 HOURS PRN, Nausea, Vomiting, Starting on Mon02/28/25 at 1019 Phenylephrine HCl in NS (NINFA-SYNEPHRINE) 1 mg/10 mL (100 mcg/mL) injection 100 mcg 100 mcg, Intravenous, ONCE PRN, Other (enter comment), vasovagal reaction with SBP less than 70, Starting on Mon02/28/25 at 1019, For 72 hours, For SBP less than 70 mmHg Notify Physician or DIPAK Phenylephrine HCl in NS (NINFA-SYNEPHRINE) 1 mg/10 mL (100 mcg/mL) injection 50 mcg 50 mcg, Intravenous, ONCE PRN, Other (enter comment), vasovagal reaction with SBP 70-80, Starting on Mon02/28/25 at 1019, For 72 hours, For SBP 70-80 mmHg. If SBP remains less than 80 in 2 minute, repeat dose x1. sirolimus (RAPAMUNE) tablet 10 mg 10 mg, Oral, ONCE, On Mon02/28/25 at 1145, For 1 dose, Do not split or crush; call pharmacy if patient cannot take dosage form whole Given 02/28/2025 12:57 PM EST 10 mg sodium chloride 0.9% IV solution 125 mL/hr, Intravenous, PRE-OP CONTINUOUS, Starting on Mon02/28/25 at 0745 New Bag 02/28/2025 8:07 AM EST 125 mL/hr 125 mL/hr sodium chloride 0.9% IV solution 100 mL/hr, Intravenous, CONTINUOUS, Starting on Mon02/28/25 at 1100, For 6 hours Rate Change 02/28/2025 11:00 AM EST 100 mL/hr 100 mL/hr sodium chloride 0.9% IV solution 1,000 mL, Intravenous, CONTINUOUS PRN, Vasovagal reaction, Starting on Mon02/28/25 at 1019 documented in this encounter Active and Recently Administered Medications Times are shown in EST. Scheduled Medication Order 02/26/2025 02/27/2025 02/28/2025 aspirin chewable tablet 324 mg (COMPLETED) 324 mg, Oral, PRE-PROCEDURE, Starting on Mon02/28/25 at 0711, For 1 dose, Do not give for right heart cath only 0819 (Given - Provid er: Caron Aguayo RN) clopidogreL (PLAVIX) tablet 600 mg (COMPLETED) 600 mg, Oral, PRE-PROCEDURE, Starting on Mon02/28/25 at 0711, For 1 dose 0824 (Given - Provid er: Caron Aguayo RN - Comment: Pt took 75 mg of plavix at home this AM) clopidogreL (PLAVIX) tablet 75 mg 75 mg, Oral, DAILY, First dose on Mon03/01/25 at 0900 sirolimus (RAPAMUNE) tablet 10 mg (COMPLETED) 10 mg, Oral, ONCE, On Mon02/28/25 at 1145, For 1 dose, Do not split or crush; call pharmacy if patient cannot take dosage form whole 1257 (Given - Provid er: Clarisse Diaz RN) Continuous Medication Order 02/26/2025 02/27/2025 02/28/2025 sodium chloride 0.9% IV solution (CANCELED) 125 mL/hr, Intravenous, PRE-OP CONTINUOUS, Starting on Mon02/28/25 at 0745 0807 (New Bag - Prov ider: Mary Alice Contreras RN) sodium chloride 0.9% IV solution 100 mL/hr, Intravenous, CONTINUOUS, Starting on Mon02/28/25 at 1100, For 6 hours 1100 (Rate Change - Provider: Erin Anderson RN) PRN Medication Order 02/26/2025 02/27/2025 02/28/2025 acetaminophen (TYLENOL) tablet 650 mg 650 mg, Oral, EVERY 6 HOURS PRN, Mild Pain Intensity (1-3), Starting on Mon02/28/25 at 1019, Do not exceed 4 grams of acetaminophen in 24 hours from all sources alum-mag hydroxide-simeth (MINTOX MAX) 400-400-40 mg/5 mL suspension 15 mL 15 mL, Oral, EVERY 4 HOURS PRN, Heartburn, Starting on Mon02/28/25 at 1019, Shake well atropine injection 0.5 mg 0.5 mg, Intravenous, PRN, Other (enter comment), Starting on Mon02/28/25 at 1019, For Symptomatic HR less than 50/minute. May repeat every 2 minutes, two times. Call dextrose 50 % injection 25-50 mL 25-50 mL, Intravenous, PRN, Low blood sugar, Low blood sugar and unable to take PO, Starting on Mon02/28/25 at 0711, Follow BG scale: BG 70-100 mg/dL & symptomatic = 25 ml dose. BG 50-69 mg/dL = 25 ml dose. BG less than 50 mg/dL = 50 ml dose. Document hypoglycemic event on hypoglycemic doc flow sheet. REPEAT blood glucose 15 minutes after treatment. REPEAT treatment if blood glucose still less than 70 mg/dL., Notify prescriber immediately. When BG level rises above 70 mg/dL after any treatment, continue to monitor patients BG level as ordered by prescriber. fentaNYL (Sublimaze) 50 mcg/mL injection (CANCELED) INTRA-OP PRN, Starting on Mon02/28/25 at 0924, Intra-op 0924 (Given - Provid er: Alfredo Whitten RN)0932 (Given - Provider: Alfredo Whitten, RN)1000 (Given - Provider: Alfredo Whitten, RN)1016 (Given - Provider: Alfredo Whitten, RN)1025 (Given - Provider: Alfredo Whitten, RN) heparin (porcine) injection (CANCELED) INTRA-OP PRN, Starting on Mon02/28/25 at 0939, Intra-op 0939 (Given - Provid er: Alfredo Whitten, LUCIE) hydrALAZINE (APRESOLINE) injection 10 mg 10 mg, Intravenous, ONCE PRN, High Blood Pressure (Enter BP parameters in PRN Comment), Starting on Mon02/28/25 at 1019, For 1 dose, For line pull If HR less than or equal to 70, for SBP greater than 180, or DBP greater than 115. iopamidoL (Isovue 370) 370 mg iodine /mL (76 %) injection (CANCELED) INTRA-OP PRN, Starting on Mon02/28/25 at 1018, Intra-op 1018 (Given - Provid er: Alfredo Whitten RN) labetaloL (NORMODYNE;TRANDATE) injection 10 mg 10 mg, Intravenous, PRN, High Blood Pressure (Enter BP parameters in PRN Comment), Starting on Mon02/28/25 at 1019, For line pull If HR GREATER than or equal to 70, for SBP between 160-170 or DBP between 100-115/ May repeat with 20 mg every 10 Minutes times 2 doses. If still greater, contact . lidocaine 2 % injection (CANCELED) INTRA-OP PRN, Starting on Mon02/28/25 at 0934, Intra-op 0934 (Given - Provid er: Rick Ocampo MD) midazolam (Versed) 1 mg/mL injection (CANCELED) INTRA-OP PRN, Starting on Mon02/28/25 at 0924, Intra-op 0924 (Given - Provid er: Alfredo Whitten RN)0932 (Given - Provider: Alfredo Whitten RN)1006 (Given - Provider: Alfredo Whitten RN) niCARdipine in 0.9 % sod chlor (Cardene) 1 mg/10 mL injection (CANCELED) INTRA-OP PRN, Starting on Mon02/28/25 at 0952, Intra-op 0952 (Given - Provid er: Rick Ocampo MD) ondansetron (PF) (ZOFRAN) injection 4 mg 4 mg, Intravenous, EVERY 8 HOURS PRN, Nausea, Vomiting, Starting on Mon02/28/25 at 1019 Phenylephrine HCl in NS (NINFA-SYNEPHRINE) 1 mg/10 mL (100 mcg/mL) injection 100 mcg(Linked Group 1) 100 mcg, Intravenous, ONCE PRN, Other (enter comment), vasovagal reaction with SBP less than 70, Starting on Mon02/28/25 at 1019, For 72 hours, For SBP less than 70 mmHg Notify Physician or DIPAK Phenylephrine HCl in NS (NINFA-SYNEPHRINE) 1 mg/10 mL (100 mcg/mL) injection 50 mcg(Linked Group 1) 50 mcg, Intravenous, ONCE PRN, Other (enter comment), vasovagal reaction with SBP 70-80, Starting on Mon02/28/25 at 1019, For 72 hours, For SBP 70-80 mmHg. If SBP remains less than 80 in 2 minute, repeat dose x1. sodium chloride 0.9% IV solution 1,000 mL, Intravenous, CONTINUOUS PRN, Vasovagal reaction, Starting on Mon02/28/25 at 1019 Tirofiban (Aggrastat) bolus injection (CANCELED) INTRA-OP PRN, Starting on Mon02/28/25 at 0939, Intra-op 0939 (Given - Provid er: Alfredo Whitten RN) Linked Groups Order Group 1: Phenylephrine HCl in NS (NINFA-SYNEPHRINE) 1 mg/10 mL (100 mcg/mL) injection 50 mcgJump to med 50 mcg, Intravenous, ONCE PRN, Other (enter comment), vasovagal reaction with SBP 70-80, Starting on Mon02/28/25 at 1019, For 72 hours, For SBP 70-80 mmHg. If SBP remains less than 80 in 2 minute, repeat dose x1. Or Phenylephrine HCl in NS (NINFA-SYNEPHRINE) 1 mg/10 mL (100 mcg/mL) injection 100 mcgJump to med 100 mcg, Intravenous, ONCE PRN, Other (enter comment), vasovagal reaction with SBP less than 70, Starting on Mon02/28/25 at 1019, For 72 hours, For SBP less than 70 mmHg Notify Physician or DIPAK documented in this encounter
--- OUTSIDE RECORDS SUMMARY | 2025-02-28 08:45 | XMS_ITS | Encounter Summary ---
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 KIMBERLY/ ASHANTI/ YEMI/ SURG TIME 9:15 AM/ ALICIA MORENO IN OFC -SMS Procedures [facility] BASIC RAD DOS CALC [facility] RAD SPECIAL MEDICAL PHYSICS CONSULTATION [facility] SPEC TX PROCEDURE [facility] HDR RDNCL NTRSTL/ICAV BRCHTX 1 CHANNEL [facility] HDR RDNCL NTRSTL/ICAV BRCHTX 2-12 CH [facility] HDR RDNCL NTRSTL/ICAV BRCHTX OVER 12 [facility] [address] [place] [address] Radiation Oncology [address] [place] [address] Phone: tel: Referral ID Status Reason Start Date Expiration Date V isits Requested Visits Authorized [id number] Not Needed 02/28/2025 02/28/2026 1 1 Encounter Details Date Type Department Care Team (Latest Contact Info) Description 02/28/2025 8:45 AM EST - 02/28/2025 11:59 PM EST Hospital Encounter Radiation Oncology [address] [place], [place] [id number] Jocy Sawyer MD [address] [employer] [address] [place], [place] [id number] Discharge Disposition: Home or Self Care Social History Tobacco Use Types Packs/Day Years Used Date Smoking Tobacco: Never Passive Smoke Exposure: Never Smokeless Tobacco: Never Alcohol Use Standard Drinks/Week Comments Never 0 (1 standard drink = 0.6 oz pur e alcohol) Sex and Gender Information Value Date Recorded Sex Assigned at Not on file Legal Sex Male 2:42 PM EST Gender Identity Not on file Sexual Orientation Not on file documented as of this encounter Medications at Time of Discharge [...] 2 times daily. 60 Tablet 5 02/17/2025 6 clopidogreL (PLAVIX) 75 mg tablet Take 75 [...] TabletIndications :Coronary stent restenosis, initial encounter,Pure hypercholesterole craissa,Stenosis of coronary artery stent, initial encounter Take 3 Tablets (3 mg) by mouth daily for 13 days. 39 Tablet 02/17/2025 5 documented as of this encounter Plan of Treatment Not on file documented as of this encounter Goals Goal Patient Goal Type Associated Problems Recent Progress Patient-Stated? Author Increase physical activity Lifestyle Migdalia Muse documented as of this encounter Visit Diagnoses Not on filedocumented in this encounter
--- OUTSIDE RECORDS SUMMARY | 2025-02-28 09:15 | XMS_ITS | Encounter Summary ---
Author Organization [facility] Address [address] [place] [address] Care Team Providers Care Office Messenger Helper Name Role Phone Unavailable Primary Care Provider Unavailabl e Reason for Visit * Auth/Cert Specialty Diagnoses / Procedures Referred By Contac t Referred To Contact Diagnoses Coronary stent restenosis, initial encounter Coronary stent restenosis, initial encounter [T82.529M] Procedures VT PRQ TRLUML CORONARY ANGIOPLASTY ONE ART/BRANCH VT TCAT PLACEMENT RADJ DLVR DEV SBSQ C IV BRACHYTX INTERVENTION - CORONARY CORONARY BRACHYTHERAPY Referral ID Status Reason Start Date Expiration Date Visits Re quested Visits Authorized [id number] 1 1 Encounter Details Date Type Department Care Team (Late st Contact Info) Description 02/28/2025 9:15 AM EST - 02/28/2025 10:30 AM EST Surgery Cardiac Silk Screen Cutter [address] [place] [address] Rick Ocampo MD 3 [facility] [address] [place] [id number] INTERVENTION - CORONARY Social History Tobacco Use Types Packs/Day Years [...] Sign Reading Time Taken Comments Blood Pressure 116/94 02/28/2025 7:43 AM EST Pulse 70 02/28/2025 7:39 AM EST Temperature 36.8 C (98.2 F) 02/28/2025 7:39 AM EST Respiratory Rate 18 02/28/2025 7:39 AM EST Oxygen Saturation 89% 02/28/2025 9:18 AM EST Inhaled Oxygen Concentration - - Weight [...] Other reasons documented by physician/advanced practice nurse/physician insurance sales assistant (physician/WARDROBE ASSISTANT/PA) or pharmacist Statin prescribed: Yes Antithrombotic prescribed: [...] made -Follow up with Dr. Biggs at [facility] in [place], [place] in [address] Rick Ocampo [...] of this encounter Progress Notes * Azalia Olivas, GORDY - 02/28/2025 11:03 AM EST [facility] Assessment: CAD - s/p PCI with brachytherapy and POBA toLAba LCX per Dr. Ocampo. Plan for Same [...] meets all discharge criteria. RN to call laborer yard or Interventionalist reception centre manager if patient does not meet criteria. Medications changes include: Post brachytherapy regimen including Pletal, diltiazem and rapamune picked up by patient prior to admission. Continue Plavix. No aspirin per Dr. Suarez. Instructed to resume Xarelto 03/02. Counseled re: risk factor and lifestyle modification, medication compliance, andmedical follow-up. Follow up with Dr. Biggs at [facility] in [place], [place] in 2 weeks, patient and family report he has an appointment scheduled, but are not sure of the date and will confirm the date when they get home today. Patient informed they will receive a follow up phone call tomorrow. Subjective Hampton is lying in bed, denies CP/SOB. Objective [...] by mouth daily. Start date: 03/02/2025 Comments: [email or web address] CONTINUE these medications which have NOT CHANGED [...] Other reasons documented by physician/advanced practice nurse/physician insurance sales assistant (physician/WARDROBE ASSISTANT/PA) or pharmacist On Plavix, Xarelto and Pletal, [...] patient. Signed: Azalia Olivas NP Interventional Cardiology [phone] 02/28/2025 11:03 AM [facility] * Jocy Hamm MD - 02/28/2025 10:47 AM EST Radiation Oncology Cardiac Brachytherapy Note Patient Name: Mable Alford III : 1950 DOS: 02/28/2025 Mable [...] difficulty. He will follow up with his artificial flower maker. Jocy Hamm MD Radiation Oncology documented in [...] their area that are certified by the [place] [employer](AACVPR) and they are provided with contact information for these programs. R: The patient has chosen to attend [facility] [address] [place] [address] The referral was sent to this facility. Patient self reported Lifestyle Modification Goal: Goals Increase physical activity Diabetes education discussed and provided: XXX No results found for: HGBA1C , TGLYCO , GLYCOHEM * Interdisciplinary - Erin Anderson RN - 02/28/2025 11:34 AM EST Per Paulina DOG SHOW JUDGE patient will not have asa at discharge. * Interdisciplinary - Clarisse Diaz RN - 02/28/2025 10:41 AM EST Physician speaking with patient / family. Discussed procedure and answered questions @ bedside. * Interdisciplinary - Clarisse Diaz RN - 02/28/2025 10:36 AM EST Pt arrived from laborer yard. Placed patient on monitor. Obtained vitals. Right groin site unremarkable. Pt denies pain. * Op Note - Rick Ocampo MD - 02/28/2025 10:22 AM EST [address] [address] Cardiac Catheterization Report Patient Name: Mable Alford III : [id number] Age: 74 y.o. Date: 02/28/2025 Primary Care Physician: None Referring Physician: Shay Biggs Procedures performed: Left heart catheterization Selective coronary angiography Percutaneous coronary intervention with adjunct procedures as indicated Procedure: After informed consent, He was brought to the laborer yard. He was prepped and draped in the usual sterile manner. He was sedated with Versed fentanyl. The access site was anesthetized with 2% Lidocaine.Vascular access was obtained using the modified Seldinger access technique under real-time ultrasound guidance with images saved. Access: Right femoral Charis left 4 curve short tip 7 Latvian guiding catheter Left Heart Catheterization performed to [...] a wire and closure performed with 6 Latvian Angio-Seal. Additional comments: None Initial Findings: Relevant [...] hemostasis was achieved with a single 6 Latvian Angio-Seal. He tolerated the procedure well, and no immediate complications were noted. Rick Ocampo MD [facility] *This note was completed with the help of voice recognition software. Although it was reviewed and edited in real time, there may still have been errors in transcribing words or phrases. * Caron Bruce RN - 02/28/2025 9:08 AM EST Pt taken to laborer yard via stretcher with LUCIE Kerry * Interdisciplinary - Caron Aguayo RN - 02/28/2025 7:24 AM EST Patient admitted to [facility] from home . Nursing assessment per protocol. Bilateral groin clipped per protocol by DIRECTOR CUSTOMER . Family instructed on EPIC bed tracking [...] Monitoring Device 149(H) 71 - 99 mg/dL [facility] EXTERNAL [facility] Blood 02/28/2025 11:0 3 AM EST 02/28/2025 11:04 AM EST us Rick Mavis Ocampo MD POINT OF CARE TEST ORDERABL ES Final Result [facility] EXTERNAL LAB [address] * ECG (02/28/2025 10:51 AM EST) Heart Rate 55 bpm [facility] EXTER NAL LAB QRS Interval 97 ms [facility] EXT ERNAL LAB QT Interval 448 ms [facility] EXTE RNAL LAB QTc Interval 429 ms [facility] EXT ERNAL LAB P Argos 49 deg [facility] QRS Argos 39 deg [facility] T Wave Argos 47 deg [facility] EXTE RNAL LAB P-R Interval 146 msec [facility] EXT ERNAL LAB 02/28/2025 10:5 1 AM EST Narrative [facility] EXTERNAL [facility] - 03/01/2025 10:50 AM EST [facility] Test Date: 2025-02-28 10:51:41 Pat Name: [facility] Department: [facility] Room: [employer] 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1950 Requested By: AZALIA Shannon Order Number: [id number] Manjeet MD: Damián Mir MD Interpretive Statements Sinus bradycardia Compared to the prior tracing, bradycardia is present Electronically Signed On 03-01-2025 10:50:07 EST by Damián Mir MD Procedure Note Damián Mir MD - 03/01/2025 [facility] Test Date: 2025-02-28 10:51:41 Pat Name: [facility] Department: [facility] Room: [employer]EC[employer] 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1950 Requested By: AZALIA Shannon Order Number: [id number] Reading MD: Damián Mir MD Interpretive Statements Sinus bradycardia Compared to the prior tracing, bradycardia is present Electronically Signed On 03-01-2025 10:50:07 EST by Damián Mir MD us Azalia AcunaThony Olivas NP ECG ORDERABLES Final Result [facility] EXTERNAL [facility] [address] [place] [address], [facility] * INTERVENTION - CORONARY, CORONARY BRACHYTHERAPY (02/28/2025 10:20 AM EST) Narrative Rick Ocampo MD - 02/28/2025 10:32 AM EST Table formatting from the original result was not included. [facility] [address] [place] [address] Cardiac Catheterization Report Patient Name: Mable Alford III : [id number] Age: 74 y.o. Date: 02/28/2025 Primary Care Physician: None Referring Physician: Shay Biggs Procedures performed: Left heart catheterization Selective coronary angiography Percutaneous coronary intervention with adjunct procedures as indicated Procedure: After informed consent, He was brought to the laborer yard. He was prepped and draped in the usual sterile manner. He was sedated with Versed fentanyl. The access site was anesthetized with 2% Lidocaine. Vascular access was obtained using the modified Seldinger access technique under real-time ultrasound guidance with images saved. Access: Right femoral Charis left 4 curve short tip 7 Latvian guiding catheter Left Heart Catheterization performed to [...] a wire and closure performed with 6 Latvian Angio-Seal. Additional comments: None Initial Findings: Relevant [...] hemostasis was achieved with a single 6 Latvian Angio-Seal. He tolerated the procedure well, and no immediate complications were noted. Rick Ocampo MD [facility] *This note was completed with the help [...] 10:16 AM EST) POC ACTLR 211 seconds [facility] Comment: ACT TARGET RANGES : [...] ORDERABL ES Final Result Performing Organization Address [facility] de Phone Number [facility] EXTERNAL [facility] [address] * POC ACT LOW RANGE (02/28/2025 9:52 AM EST) POC ACTLR 312 seconds [facility] Comment: ACT TARGET RANGES : Line pull: <=180 seconds Interventional cardiology with GP IIb/IIIa inhibitors: 220-300 seconds Interventional cardiology without GP IIb/IIIa inhibitors: >250 seconds Peripheral and Neuroradiology: 250-300 seconds Afib ablation: discretion Ablation (other than Afib): discretion Normal range generated from normal volunteer donors: 113-149 seconds Normal range generated from hospitalized patients not receiving heparin: 89-169 seconds Target ranges are suggested ranges only. Suggested ranges are overridden by specific physician order. Whole Blood 02/28/2025 9:52 AM EST 02/28/2025 9:57 AM EST Rickherman Ocampo MD POINT OF CARE TEST ORDERABL ES Final Result Performing Organization Address [facility] de Phone Number [facility] EXTERNAL [facility] [address] * ECG (02/28/2025 7:47 AM EST) Heart Rate 70 bpm [facility] EXTER NAL LAB QRS Interval 95 ms [facility] EXT ERNAL LAB QT Interval 395 ms [facility] EXTE RNAL LAB QTc Interval 427 ms [facility] EXT ERNAL LAB P Argos -28 deg [facility] QRS [place] 45 deg [facility] T Wave [place] 56 deg [facility] EXTE RNAL LAB P-R Interval 125 msec [facility] EXT ERNAL LAB 02/28/2025 7:47 AM EST Narrative [facility] EXTERNAL [facility] - 03/01/2025 10:24 AM EST [facility] Test Date: 2025-02-28 07:47:24 Pat Name: [facility] Department: [facility] Room: [facility] Gender: Male Metal 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: [facility] : 1950 Requested By: CLARISSE Mary Order Number: [id number] Reading MD: Damián Mir MD Interpretive Statements Sinus rhythm Electronically Signed On 03-01-2025 10:24:39 EST by Damián Mir MD Procedure Note Damián Mir MD - 03/01/2025 [facility] Test Date: 2025-02-28 07:47:24 Pat Name: [facility] Department: [facility] Room: [facility] Gender: Male Metal Refiner: [facility] : 1950 Requested By: CLARISSE MACIEL Order Number: [id number] Reading MD: Damián Mir MD Interpretive Statements Sinus rhythm Electronically Signed On 03-01-2025 10:24:39 EST by Damián Mir MD us Clarisse Adler NP ECG ORDERABLES Final R esult [facility] EXTERNAL [facility] [address] [place] [address], [facility] documented in this encounter Visit Diagnoses Diagnosis [...] by prescriber. fentaNYL (Sublimaze) 50 mcg/mL injection INTRA-OP PRN, Starting on Mon02/28/25 at 0924, Intra-op Given 02/28/2025 10:25 AM EST 50 mcg Given 02/28/2025 10:16 AM EST 50 mcg Given 02/28/2025 10:00 AM EST 25 mcg heparin (porcine) injection INTRA-OP PRN, Starting on Mon02/28/25 at 0939, Intra-op Given 02/28/2025 9:39 AM EST 4,500 Units hydrALAZINE (APRESOLINE) injection 10 mg 10 mg, Intravenous, ONCE PRN, High Blood Pressure (Enter BP parameters in PRN Comment), Starting on Mon02/28/25 at 1019, For 1 dose, For line pull If HR less than or equal to 70, for SBP greater than 180, or DBP greater than 115. iopamidoL (Isovue 370) 370 mg iodine /mL (76 %) injection INTRA-OP PRN, Starting on Mon02/28/25 at 1018, Intra-op Given 02/28/2025 10:18 AM EST 65 mL labetaloL (NORMODYNE;TRANDATE) injection 10 mg 10 mg, Intravenous, PRN, High Blood Pressure (Enter BP parameters in PRN Comment), Starting on Mon02/28/25 at 1019, For line pull If HR GREATER than or equal to 70, for SBP between 160-170 or DBP between 100-115/ May repeat with 20 mg every 10 Minutes times 2 doses. If still greater, contact MD. lidocaine 2 % injection INTRA-OP PRN, Starting on Mon02/28/25 at 0934, Intra-op Given 02/28/2025 9:34 AM EST 16 mL Right Groin midazolam (Versed) 1 mg/mL injection INTRA-OP PRN, Starting on Mon02/28/25 at 0924, Intra-op Given 02/28/2025 10:06 AM EST 0.5 mg Given 02/28/2025 9:32 AM EST 0.5 mg Given 02/28/2025 9:24 AM EST 1 mg niCARdipine in 0.9 % sod chlor (Cardene) 1 mg/10 mL injection INTRA-OP PRN, Starting on Mon02/28/25 at 0952, Intra-op Given 02/28/2025 9:52 AM EST 300 mcg ondansetron (PF) (ZOFRAN) injection 4 mg 4 [...] 02/28/2025 8:07 AM EST 125 mL/hr 125 mL/h r sodium chloride 0.9% IV solution 100 mL/hr, Intravenous, CONTINUOUS, Starting on Mon02/28/25 at 1100, For 6 hours Rate Change 02/28/2025 11:00 AM EST 100 mL/hr 100 mL/hr sodium chloride 0.9% IV solution 1,000 mL, Intravenous, CONTINUOUS PRN, Vasovagal reaction, Starting on Mon02/28/25 at 1019 Tirofiban (Aggrastat) bolus injection INTRA-OP PRN, Starting on Mon02/28/25 at 0939, Intra-op Given 02/28/2025 9:39 AM EST 2,185 mcg documented in this encounter Active and Recently [...] 75 mg, Oral, DAILY, First dose on 03/01/25 at 0900 sirolimus (RAPAMUNE) tablet 10 mg (COMPLETED) 10 mg, Oral, ONCE, On Mon02/28/25 at 1145, For 1 dose, Do not split or crush; call pharmacy if patient cannot take dosage form whole 1257 (Given - Provid er: Clarisse Diaz, LUCIE) Continuous Medication Order 02/26/2025 02/27/2025 02/28/2025 sodium [...] every 2 minutes, two times. Call MD. dextrose 50 % injection 25-50 mL 25-50 [...] Alfredo Whitten, RN)1000 (Given - Provider: Alfredo Whitten RN)1016 (Given - Provider: Alfredo Whitten, RN)1025 (Given - Provider: Alfredo Whitten RN) heparin (porcine) injection (CANCELED) INTRA-OP PRN, Starting on Mon02/28/25 at 0939, Intra-op 0939 (Given - Provid er: Alfredo Whitten RN) hydrALAZINE (APRESOLINE) injection 10 mg 10 mg, [...] Whitten RN)0932 (Given - Provider: Alfredo Whitten, RN)1006 (Given - Provider: Alfredo Whitten RN) [...]
[2025-03-07] VITALS (16 sets, daily range): BP systolic 93–116; BP diastolic 52–63; PULSE 74–96; RESP 13–30; TEMP 36.6; O2SAT 92–100; BMI 27.1
--- OUTSIDE RECORDS SUMMARY | 2025-03-07 21:30 | XMS_ITS | Clinical Summary ---
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 12/16 Imelda Hollis Nonspecific tuberculin test reaction + 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 R76.12 (ICD-10-CM ) 09/18 Active 09/18 Imelda Bunny 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 gamma interferon antigen response without active tuberculosis Edema, limb 269066136 (SNOMED CT) 09/21 Resolved 09/21 Imelda Hollis Edema of extremity Right Leg Edema, limb 619731771 (SNOMED CT) 09/21 Removed 09/21 Jer Zhang [...] DAY 2 THROUGH DAY 5 12/19 azithromycin 79454243551 Cinda Rolando BENZONATATE 100 MG CAPS Take 1 capsule by mouth three times a day as needed 12/19 BENZONATATE Cinda Fu TRIAZOLAM 0.25 MG TABS Take 1 tablet by mouth 12/19 triazolam 47875051694 Cinda Fu LORAZEPAM 1 MG TABS Take 1 tablet 12/19 lorazepam 40639028669 Cinda Fu LEVOFLOXACIN 750 MG TABS Take 1 tablet by mouth once a day 12/19 levofloxacin 05121022188 Cinda Rolando LOSARTAN POTASSIUM 50 MG TABS one tab oral daily 12/19 losartan 64124707747 Cinda Rolando NYSTATIN 862858 UNIT/GM OINT Apply to skin once a day 12/19 nystatin 54789801508 Cinda Fu RIFAMPIN 300 MG CAPS Take 2 by mouth once a day 12/19 rifampin 19394237958 Cinda Rolando CYCLOBENZAPRINE HCL 5 MG TABS one tab oral daily 12/19 cyclobenzaprine 97813159464 Cinda Fu ISONIAZID 300 MG TABS Take 1 tablet by mouth once a day 12/19 isoniazid 62931200868 Cinda PROMETHAZINE-CODEI NE 6.25-10 MG/5ML SYRP Take 5 ml by mouth twice a day 12/19 promethazine-code ine 54246468141 Cinda Fu DICYCLOMINE HCL 10 MG CAPS 1 cap oral twice a day 12/19 dicyclomine 66242628883 Cinda Fu CLOPIDOGREL BISULFATE 75 MG TABS Take 1 tablet by mouth once a day 12/19 clopidogrel 94961907451 Cinda Marshall HYDROCOD POLST-CPM POLST ER 10-8 MG/5ML ORAL SUSPENSION EXTENDED RELEASE Take 1 teaspoon by mouth twice a day 12/19 HYDROCOD POLST-CPM POLST ER 10-8 MG/5ML ORAL SUSPENSION EXTENDED RELEASE Cinda Marshall PLAVIX 75 MG TABS once a day clopidogrel 1744183 7190 Cinda Marshall TRIAZOLAM 0.25 MG TABS Take 1 tablet by mouth 09/24 triazolam 25688267839 Melvin Hartman ISONIAZID 300 MG TABS Take 1 tablet by mouth once a day 12/19 isoniazid 26776240012 Melvin Hartman CLOPIDOGREL BISULFATE 75 MG TABS Take 1 tablet by mouth once a day 12/19 clopidogrel 95625164099 Melvin Hartman LORAZEPAM 1 MG TABS Take 1 tablet 12/19 lorazepam 96961471078 Melvin Hartman NYSTATIN 946267 UNIT/GM OINT Apply to skin once a day 12/19 nystatin 53017219126 Melvin Hartman HYDROCOD POLST-CPM POLST ER 10-8 MG/5ML ORAL SUSPENSION EXTENDED RELEASE Take 1 teaspoon by mouth twice a day 12/19 HYDROCOD POLST-CPM POLST ER 10-8 MG/5ML ORAL SUSPENSION EXTENDED RELEASE Melvin Hartman AZITHROMYCIN 250 MG TABS TAKE 2 TABLETS BY MOUTH ON DAY 1 AND THEN TAKE 1 TABLET BY MOUTH ONCE A DAY ON DAY 2 THROUGH DAY 5 09/24 azithromycin 96921861278 Melvin Hartman RIFAMPIN 300 MG CAPS Take 2 by mouth once a day 09/24 rifampin 33331994764 Melvin Hartman PROMETHAZINE-CODEI NE 6.25-10 MG/5ML SYRP Take 5 ml by mouth twice a day 05/09 promethazine-code ine 64956847986 Melvin Hartman BENZONATATE 100 MG CAPS Take 1 capsule by mouth three times a day as needed 12/19 BENZONATATE Melvin Hartman LEVOFLOXACIN 750 MG TABS Take 1 tablet by mouth once a day 12/19 levofloxacin 61217552090 Melvin Hartman DICYCLOMINE HCL 10 MG CAPS 1 cap oral twice a day 09/24 dicyclomine 78712292794 Melvin Hartman SIMVASTATIN 20 MG TABS one tab oral daily simvastatin 25445109086 Melvin Hartman LOSARTAN POTASSIUM 50 MG TABS one tab oral daily 09/24 losartan 73104125138 Melvin Hartman CYCLOBENZAPRINE HCL 5 MG TABS one tab oral daily 09/24 cyclobenzaprine 32436961869 Melvin Hartman TRAMADOL HCL 50 MG TABS one tab every 6 hours prn tramadol 55775234570 Melvin Hartman METFORMIN HCL 500 MG TABS one tab oral twice a day metformin 78024962115 Melvin Hartman RIFAMPIN 300 MG CAPS take 2 po daily 09/24 RIFAMPIN 43718215250 Jer Zhang MD ISONIAZID 300 MG TABS Take 1 tablet by mouth daily 12/16 ISONIAZID 87718495213 Jer Zhang MD AZITHROMYCIN 250 MG TABS TAKE 2 TABLETS BY MOUTH ON DAY 1 AND THEN TAKE 1 TABLET BY MOUTH ONCE A DAY ON DAY 2 THROUGH DAY 5 09/24 AZITHROMYCIN 74771854701 Gerald Ocasio BENZONATATE 100 MG CAPS TAKE 1 CAPSULE BY MOUTH THREE TIMES DAILY FOR 10 DAYS NEEDED FOR COUGH 12/16 BENZONATATE 58655573117 Gerald Ocasio PROMETHAZINE-CODEI NE 6.25-10 MG/5ML SOLN TAKE 5 ML BY MOUTH TWICE DAILY 12/16 PROMETHAZINE-CODE INE 71663967236 Gerald Ocasio LEVOFLOXACIN 750 MG TABS TAKE 1 TABLET BY MOUTH ONCE DAILY FOR 8 DAYS 12/16 LEVOFLOXACIN 33503120135 Gerald Ocasio CLOPIDOGREL BISULFATE 75 MG TABS TAKE 1 TABLET BY MOUTH ONCE DAILY 12/16 CLOPIDOGREL BISULFATE 29865631548 Gerald D NYSTATIN 026766 UNIT/GM OINT APPLY OINTMENT TOPICALLY ONCE DAILY 12/16 NYSTATIN 47043975475 Gerald D HYDROCOD POLST-CPM POLST ER 10-8 MG/5ML ORAL SUSPENSION EXTENDED RELEASE TAKE 1 TEASPOONFUL (5 ML) BY MOUTH TWICE DAILY MAY CAUSE DROWSINESS 12/16 HYDROCOD POLST-CHLORPHEN POLST 22870748418 Gerald D TRIAZOLAM 0.25 MG TABS TAKE 1 TABLET BY MOUTH 30 MINUTES PRIOR TO MRI ON 09/24 TRIAZOLAM 45517652438 Gerald D LORAZEPAM 1 MG TABS TAKE 1 TABLET 2 HOURS BEFORE MRI FOR ANXIETY 12/16 LORAZEPAM 57111184945 Gerald D Medications Administered No information available. 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
--- OUTSIDE RECORDS SUMMARY | 2025-03-07 21:31 | XMS_ITS | Encounter Summary ---
Author Organization [employer] ([place], [place], [place], [place], [place]) Address [address] [place] [address] Care Team Providers Care General Office Dispatcher Name Role Phone Unavailable Primary Care Provider Unavailabl e Encounter Details Date Type Department Care Team (Late st Contact Info) Description 12/24/2020 Transcribed Document [facility] Family Medicine [address] [place] [address] ProviderJaime MD [address] [place] [address] [id number] Social History Tobacco Use Types Packs/Day Years [...] right total knee replacement, final condition improved. /[id number] MD RAO Gibbs Jr/DIANNA / RAO / MODL /[id number] documented in this encounter Plan of Treatment Not on file documented as of this encounter Visit Diagnoses Not on filedocumented in this encounter
--- OUTSIDE RECORDS SUMMARY | 2025-03-07 21:31 | XMS_ITS | Encounter Summary ---
Author Organization [employer] ([place], [place], [place], [place], [place]) Address [address] [place] [address] Care Team Providers Care Gas Prover Name Role Phone Unavailable Primary Care Provider Unavailabl e Encounter Details Date Type Department Care Team (Late st Contact Info) Description 12/16/2020 Transcribed Document [facility] Family Medicine [facility] [place] [address] ProviderJaime MD [address] [place], [place] [id number] Social History Tobacco Use Types Packs/Day Years [...] Source : Stated Height Entry Format : [place] Height, Feet : 5 ft(Converted to: 152 cm, 60 Inch) Height, Inches : 9 Inch(Converted to: 0 ft 9 Inch, 22.86 cm) Clinical Height : 175.26 cm Weight Source : Standing scale Weight Entry Format : [place] Clinical Dosing Weight : 96.93 kg Weight, Pounds : 213 lb Weight, Ounces : 4 oz Body Surface Area (BSA) : 2.12 m2 Body Mass Index : 31.6 kg/m2 (HI) [place] Body Weight : 70 kg CIARA WOODS [...] CIARA WOODS RN - 12/16/2020 6:51 EDT [place] Suicide Severity Rating Scale (C-SSRS) CSSRS Past [...] Obtained From : Patient Primary Language : Djiboutian Preferred Communication Mode : Verbal Communication Barrier : None Alteration Manager Needed : No CIARA WOODS RN [...]
--- OUTSIDE RECORDS SUMMARY | 2025-03-07 21:31 | XMS_ITS | Data Portability ---
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 Active 2015 From Automated Load;Prov ider: Sg Orourke Jr;St atus: Active Not Available [facility] 7 02:42:07 Reduced libido 1032718 Active 2015 From Automated Load;Prov ider: Sg Orourke Jr;St atus: Active Not Available [facility] 7 06:28:36 Impotence Active 2015 From Automated Load;Prov ider: Sg Orourke Jr;St atus: Active Not Available [facility] 7 07:22:50 Lower urinary tract symptoms due to benign prostatic hypertrop hy 95620970836 101 Active 2015 From Automated Load;Prov ider: Sg Orourke Jr;St atus: Active Not Available [facility] 7 08:26:38 Problem Notes None recorded. Medical Equipment None Reported. Allergies Allergen ID Allergen Name Allergen Category Reaction Reaction Severity Criticality Documentation Date Start Date Code Code System Note Provider Name and Address Organization Details Recorded Time 658750 Product containin g penicilli n (product) medicatio n Not available Not available Not available 05/09/20162014 64431 8001 SNOMED Comme nt: Creat ed By: Annita woods Date: 2014 10:23 :22 AM; Not Available [facility] 7 10:59:12 Medications Name Sig [...] Updated DateTime 11/23/2018 175.26 cm 33.1 kg/m2 579818.69 g 132/80 mm[Hg] Rebeca Christopherls [facility] 11/23/2018 09:33:02 Social History None recorded. Functional [...] ICD10 Code Diagnosis IMO Codes Diagnosis Note [id number] QM_IMPORTS [facility] [address] 07/06/2016 15:48:49 07/06/2016 15:48:49 [id number] Skinny MONDRAGON MD [facility] [address] [place] [address] 11/23/2018 08:51:17 11/27/2018 15:10:20 Localized, primary osteoarthritis of the shoulder region 449507759 M19.019 Health Concerns Section Related Observation LastModified by Organization Detai ls LastModified Time None Recorded Concern Status LastModified by Organization Details LastModified Time None Recorded Advance Directives Directive None Recorded Payers Insurance Date Sequence Insurance Name Policy Number Policy Neal Covered Member ID Neal Member ID Guarantor Name 07/24/2020 1 [employer] (MEDICARE REPLACEMENT/A DVANTAGE - PPO) [id number] [place] III [id number] [place] Notes Date Note Type Note Provider Name and Address Organization Details Recorded Time 11/23/2018 text/html The maximal problems are with abduction and rotation and pushing with the arm. Skinny MONDRAGON MD [address] [place], [address], [facility] 11/29/2018 09:27:12
--- OUTSIDE RECORDS SUMMARY | 2025-03-07 21:31 | XMS_ITS | Encounter Summary ---
Author Organization [facility] Address [address] [place] [address] Care Team Providers Care Cementing Bulk Material Operator Name Role Phone Unavailable Primary Care Provider Unavailabl e Reason for Visit * Reason Onset Date Comments Orders Needed 03/04/2025 Encounter Details Date Type Department Care Team (Late st Contact Info) Description 03/04/2025 Telephone [facility] Physicians - Heart & Vascular, [facility] [address] [facility] [address] [facility] [place] [address] None, None [address] [place], [place] [address] Orders Needed Social History Tobacco Use Types Packs/Day Years [...] encounter Miscellaneous Notes * Telephone Encounter - Francisca Lim - 03/04/2025 10:01 AM EST Rosalind with [facility]iology called to get notes from procedure: Procedure with Rick Ocampo MD (02/28/2025) Faxed over to [phone] Phone number: [phone] documented in this encounter Plan of Treatment Not on file documented as of this encounter Goals Goal Patient Goal Type Associated Problems Recent Progress Patient-Stated? Author Increase physical activity Lifestyle No Migdalia Taylor documented as of this encounter Visit Diagnoses Not on filedocumented in this encounter
--- OUTSIDE RECORDS SUMMARY | 2025-03-07 21:31 | XMS_ITS | Encounter Summary ---
Author Organization [employer] ([place], [place], [place], [place], [place]) Address [address] [place] [address] Care Team Providers Care Financial Auditor Name Role Phone Unavailable Primary Care Provider Unavailabl e Encounter Details Date Type Department Care Team (Late st Contact Info) Description 12/09/2020 Transcribed Document [facility] Family Medicine [facility] [place] [address] ProviderJaime MD [address] [place] [address] [phone] Social History Tobacco Use Types Packs/Day Years [...] Appearance CLEAR2 12/09/2020 16:01 EDT Urine Specific [place] *1.026 12/09/2020 16:01 EDT Urine pH Dipstick [...]
--- OUTSIDE RECORDS SUMMARY | 2025-03-07 21:31 | XMS_ITS | Clinical Summary ---
Author Organization [facility] Address [facility] [place] [address] Care Team Providers Care Director Of Land Acquisition Name Role Phone Unavailable Primary Care Provider Unavailabl e Allergies Active Allergy Reactions Criticality Noted Date Comments Penicillins Itching Medium 08/08/2017 Other Reaction(s): Unknown - Low Severity Medications dapagliflozin propanediol (Farxiga) 10 mg Tablet tablet Take 10 mg by mouth daily. Active clopidogreL (PLAVIX) 75 mg tablet Take 75 mg by mouth daily. Active traMADol (ULTRAM) 50 mg tablet Take 50 mg by mouth every 6 hours as needed for Pain. Active OMEPRAZOLE PO Take 40 mg by mouth in the morning. Active finerenone (Kerendia) 20 mg Tablet Take 20 mg by mouth daily. Active tamsulosin (FLOMAX) 0.4 mg sustained release capsule Take 0.4 mg by mouth nightly at bedtime. Active famotidine (PEPCID) 40 mg tablet Take 40 mg by mouth nightly at bedtime. Active atorvastatin (LIPITOR) 40 mg Tablet Take 40 mg by mouth daily. Active cyclobenzaprin e (FLEXERIL) 5 mg tablet Take 5 mg by mouth in the morning and at bedtime. Active tirzepatide (Mounjaro) 2.5 mg/0.5 mL Pen Injector 2.5 mg by Subcutaneous route once weekly. Active mupirocin (BACTROBAN) 2 % Cream Apply topically 2 times daily. Active nystatin (MYCOSTATIN) 100,000 unit/gram powder Apply topically. Active lidocaine (LIDODERM) 5% Adhesive Patch, Medicated Apply 1 Patch to skin daily. Active dilTIAZem (DILACOR XR) 120 mg XR capsuleIndicat ions:Coronary stent restenosis, initial encounter,Pure hypercholester olemia,Stenosi s of coronary artery stent, initial encounter Take 1 Capsule (120 mg) by mouth daily. 13 Capsule 02/18/20 25 Active cilostazoL (PLETAL) 100 mg tabletIndicati ons:Coronary stent restenosis, initial encounter,Pure hypercholester olemia,Stenosi s of coronary artery stent, initial encounter Take 1 Tablet (100 mg) by mouth 2 times daily. 60 Tablet 5 02/18/20 25 026 Active cholecalcifero l, vitamin D3, 1,250 mcg (50,000 unit) Tablet Take 1 Tablet by mouth daily. Active cyanocobalamin , Vitamin B-12, 100 mcg Tablet Take 100 mcg by mouth daily. Active potassium chloride (MICRO-K) 10 mEq SR capsule Take by mouth. Active pyridoxine, vitamin B6, 100 mg tablet Take 200 mg by mouth daily. Active zinc gluconate 50 mg Tablet Take 50 mg by mouth daily. Active rivaroxaban (XARELTO) 15 mg Tablet Take 1 Tablet (15 mg total) by mouth daily. 03/02/20 25 Active metFORMIN (GLUCOPHAGE) 1,000 mg tablet Take 1 Tablet by mouth 2 times daily. 03/03/20 25 026 Active metoprolol succinate (TOPROL) 50 mg Tablet Sustained Release 24 hr Take 1 Tablet (50 mg) by mouth daily. 03/15/20 25 Active rivaroxaban (XARELTO) 15 mg Tablet Take 15 mg by mouth daily. 025 Discontinued metFORMIN (GLUCOPHAGE) 1,000 mg tablet Take 1,000 mg by mouth 2 times daily. 025 Discontinued sirolimus (RAPAMUNE) 1 mg TabletIndicati ons:Coronary stent restenosis, initial encounter,Pure hypercholester olemia,Stenosi s of coronary artery stent, initial encounter Take 3 Tablets (3 mg) by mouth daily for 13 days. 39 Tablet 02/18/20 25 025 metoprolol succinate (TOPROL) 50 mg Tablet Sustained Release 24 hr Take 50 mg by mouth daily. 10/31/19 25 025 Discontinued Active Problems Problem Noted Date Diagnosed Date Coronary stent restenosis, initial encounter Encounters Date Type Department Care Team Description 03/04/2025 Telephone [facility] Physicians - Heart & Vascular, Casey Almendarez [address] [facility] [address] [place]Y [place] [address] None, None Orders Needed 02/28/2025 9:15 AM EST - 02/28/2025 10:30 AM EST Surgery Cardiac Clerk Supervisor [address] [place] [address] Rick Ocampo MD INTERVENTION - CORONARY 02/28/2025 8:45 AM EST - 02/28/2025 11:59 PM EST Hospital Encounter Radiation Oncology [address] [place] [address] Jocy Sawyer MD Discharge Disposition: Home or Self Care 02/28/2025 7:10 AM EST - 02/28/2025 2:36 PM EST Hospital Encounter Cardiovascular Recovery Unit (CVRU) [address] [place] [address] Rick Ocampo MD Coronary stent restenosis, initial encounter Discharge Disposition: Home or Self Care 02/28/2025 Travel 02/24/2025 Orders Only [facility] Physicians - Heart & Vascular, [place] [address] [facility] [place] [address] Aydee Oates MA Coronary stent restenosis, initial encounter; Pure hypercholesterolemia 02/12/2025 Telephone [facility] [address] [place] [address] None, None Establish Care (NPV) from Last 3 Months Social History Tobacco Use Types Packs/Day Years [...] Mass Index 28.44 02/28/2025 7:36 AM EST Plan of Treatment Health Maintenance Due Date Last Done Comments Cologuard 1950 Colonoscopy 1950 Colorectal Cancer Screening 1950 FIT 1950 COVID-19 Vaccine (#1) 1957 Tetanus Vaccination (Every 10 Years) 1970 Pneumococcal Vaccine: 50+ Ye ars (1 of 2 - PCV) 07/08/1971 Zoster-RZV(Shingrix) (1 of 2) 07/08/1971 Hepatitis C Virus (HCV) Screening 1973 RSV Vaccines (1 - Risk 50-74 years 1-dose series) 2002 Fall Risk Assessment 2017 Advance Care Planning 03/27/2024 BMI Counseling 03/27/2024 Depression Screening 03/27/2024 Influenza Vaccination (#1) 2024 01/02/2017, Lipid Monitoring 02/24/2026 02/24/2025 Goals Goal Patient Goal Type Associated Problems Recent Progress Patient-Stated? Author Increase physical activity Lifestyle [employer] Implanted Type Area Soiled Linen Distributor Device Identifier Shelf Expiration Date Model / Serial / Lot Device Clsr Vasc Angioseal 6fr - [id number] Implanted:Qty: 1 on 02/28/2025 by Rick Ocampo MD at [facility] Closure Device [employer] [id number] / / Procedures Procedure Name Priority Date/Time Associated Diagnosis Comments POC GLU MONITORING DEVICE Routine 02/28/2025 11:03 AM EST ECG Routine 02/28/2025 10:51 AM EST CORONARY BRACHYTHERAPY Routine 02/28/2025 10:20 AM EST Coronary stent restenosis, initial encounter INTERVENTION - CORONARY Routine 02/28/2025 10:20 AM EST Coronary stent restenosis, initial encounter POC ACT LOW RANGE Routine 02/28/2025 10:16 AM EST POC ACT LOW RANGE Routine 02/28/2025 9:5 2 AM EST ECG STAT 02/28/2025 7:47 AM EST LIPID PROFILE Routine 02/24/2025 Coronary stent restenosis, initial encounter Pure hypercholesterolemia LIVER PROFILE Routine 02/24/2025 Coronary stent restenosis, initial encounter Pure hypercholesterolemia from Last 3 Months Results * (ABNORMAL) POC GLU MONITORING DEVICE (02/28/2025 11:03 AM EST) POC Glucose Monitoring Device 149(H) 71 - 99 mg/dL [facility] Blood 02/28/2025 11:0 3 AM EST 02/28/2025 11:04 AM EST us Rickherman Ocampo MD POINT OF CARE TEST ORDERABL ES Final Result [facility] [address] [place] [address], [facility] * ECG (02/28/2025 10:51 AM EST) Only the most recent of2 resultswithin the time period is included. Heart Rate 55 bpm [facility] QRS Interval 97 ms [facility] E[facility] QT Interval 448 ms [facility] QTc Interval 429 ms [facility] P Waite 49 deg [facility] QRS Waite 39 deg [facility] T Wave Waite 47 deg [facility] P-R Interval 146 msec [facility] 02/28/2025 10:5 1 AM EST Narrative [facility] EXTER[facility] - 03/01/2025 10:50 AM EST [facility] Test Date: 2025-02-28 10:51:41 Pat Name: [facility] Department: [facility] Room: SET UP MACHINIST POOL Gender: Male Relay Checker: AZUL : 1950 Requested By: AZALIA Shannon Order Number: [id number] Reading MD: Damián Mir MD Interpretive Statements Sinus bradycardia Compared to the prior tracing, bradycardia is present Electronically Signed On 03-01-2025 10:50:07 EST by Damián Mir MD Procedure Note Damián Mir MD - 03/01/2025 [facility] Test Date: 2025-02-28 10:51:41 Pat Name: [facility] Department: [facility] Room: SET UP MACHINIST POOL Gender: Male Relay Checker: AZUL : 1950 Requested By: AZALIA Shannon Order Number: [id number] Reading MD: Damián Mir MD Interpretive Statements Sinus bradycardia Compared to the prior tracing, bradycardia is present Electronically Signed On 03-01-2025 10:50:07 EST by Damián Mir MD us Azalia Olivas NP ECG ORDERABLES Final Result Performing Organization Address City/State/[facility] Co de Phone Number [facility] [address] [place] [address] * INTERVENTION - CORONARY, CORONARY BRACHYTHERAPY (02/28/2025 10:20 AM EST) Narrative Rick Ocampo MD - 02/28/2025 10:32 AM EST Table formatting from the original [place] [address] Cardiac Catheterization Report Patient Name: Mable Alford III : [id number] Age: 74 y.o. Date: 02/28/2025 Primary Care Physician: None Referring Physician: Shay Biggs Procedures performed: Left heart catheterization Selective coronary angiography Percutaneous coronary intervention with adjunct procedures as indicated Procedure: After informed consent, He was brought to the labor operator. He was prepped and draped in the usual sterile manner. He was sedated with Versed fentanyl. The access site was anesthetized with 2% Lidocaine. Vascular access was obtained using the modified Seldinger access technique under real-time ultrasound guidance with images saved. Access: Right femoral Charis left 4 curve short tip 7 Peruvian guiding catheter Left Heart Catheterization performed to [...] a wire and closure performed with 6 Peruvian Angio-Seal. Additional comments: None Initial Findings: Relevant [...] hemostasis was achieved with a single 6 Peruvian Angio-Seal. He tolerated the procedure well, and no immediate complications were noted. Rick Ocampo MD [facility] *This note was completed with the help [...] pressure: 12 prakash. Kissing balloons Supplies Used: LN [place] EMERGE 4X12 Post-Intervention Lesion Assessment: Post-intervention [...] is a 0% residual stenosis post intervention. Rick Ocampo MD CV CARDIAC CATH PROCEDURES Final Result * POC ACT LOW RANGE (02/28/2025 10:16 AM EST) Only the most recent of2 resultswithin the time period is included. POC ACTLR 211 seconds [facility] Comment: ACT TARGET RANGES : Line pull: <=180 seconds Interventional cardiology with GP IIb/IIIa inhibitors: 220-300 seconds Interventional cardiology without GP IIb/IIIa inhibitors: >250 seconds Peripheral and Neuroradiology: 250-300 seconds Afib ablation: discretion Ablation (other than Afib): MD peterson Normal range generated from normal volunteer donors: 113-149 seconds Normal range generated from hospitalized patients not receiving heparin: 89-169 seconds Target ranges are suggested ranges only. Suggested ranges are overridden by specific physician order. Whole Blood 02/28/2025 10:1 6 AM EST 02/28/2025 10:20 AM EST Rick Ocampo MD POINT OF CARE TEST ORDERABL ES Final Result [facility] [address] * LIVER PROFILE (02/24/2025) AST 45 U/L [facility] ALT 43 U/L [facility] Bilirubin, Direct 0.1 [facility] Total Bilirubin 1.5 [facility] Total Protein 702 g/dL [facility] Albumin 4.3 [facility] Alkaline Phosphatase 95 U/L [facility] Serum (Serum) 02/24/2025 Umang Michele NP CHEMISTRY ORDERABLES Fin al Result Performing Organization Address City/[facility]/ZIP Co de Phone Number [facility] [address] * (ABNORMAL) LIPID PROFILE (02/24/2025) Cholesterol 96(L) mg/dL [facility] LDL Calculated 36(L) mg/dL [facility] X[facility]NAL [facility] HDL 54 [facility] Triglycerides 104 mg/dL [facility] Serum (Serum) 02/24/2025 Umang Michele NP CHEMISTRY ORDERABLES Fin al Result Performing Organization Address [facility] Co de Phone Number [facility] [address] from Last 3 Months Insurance MEDICARE Advance Directives For more information, please contact: [phone] * Full Code (Latest Code Status on File) Date Activated Date Inactivated Comments 02/28/2025 10:20 AM No automated chest compression devices for VAD Patients
--- OUTSIDE RECORDS SUMMARY | 2025-03-07 21:31 | XMS_ITS | Referral Summary ---
Author Organization [employer] ([place], [place], [place], [place], [place]) Address [address] [place] [address] Care Team Providers Care Blind Escort Name Role Phone Unavailable Primary Care Provider [...] Date Milton rded Speak language other than Australian at home Not on file 01/23/2024 Want [...]
--- OUTSIDE RECORDS SUMMARY | 2025-03-07 21:31 | XMS_ITS | Encounter Summary ---
Author Organization [employer] ([place], [place], [place], [place], [place]) Address [address] [place] [address] Care Team Providers Care Knitter Operator Name Role Phone Unavailable Primary Care Provider Unavailabl e Encounter Details Date Type Department Care Team (Late st Contact Info) Description 12/23/2020 Transcribed Document [facility] Family Medicine [facility] [address] ProviderJaime MD [address] [place] [phone] Social History Tobacco Use Types Packs/Day Years [...] Sent to Post Acute Providers : Yes [facility] Quality Web Info Shared w Pt/Fam [...]
--- OUTSIDE RECORDS SUMMARY | 2025-03-07 21:31 | XMS_ITS | Encounter Summary ---
Author Organization [employer] ([place], [place], [place], [place], [place]) Address [address] [place] [address] Care Team Providers Care Mark Up Designer Name Role Phone Unavailable Primary Care Provider Unavailabl e Encounter Details Date Type Department Care Team (Late st Contact Info) Description 12/09/2020 Transcribed Document [facility] [place] [facility] [address] ProviderJaime MD [address] [place], [place] [address] Social History Tobacco Use Types Packs/Day Years [...]
--- OUTSIDE RECORDS SUMMARY | 2025-03-07 21:31 | XMS_ITS | Clinical Summary ---
Author Organization [facility] Address [address] [place] [address] Care Team Providers Care Diabetic Educator Name Role Phone Columba Rodríguez APRN Primary Care Provider [phone] Allergies Active Allergy Reactions Criticality Noted Date Comments Penicillins Unknown - Low Severi ty,Itching,Unknown (See Comments) Medium 08/08/2017 Medications Plavix 75 MG tablet PLAVIX 75 MG TABS Active vitamin B-12 (cyanocobalamin ) 100 MCG tablet Take 1 tablet by mouth Daily. Active losartan (COZAAR) 50 MG tablet 3 Active mupirocin (BACTROBAN) 2 % ointment 3 Active nystatin (MYCOSTATIN) 274709 UNIT/GM cream 3 Active pioglitazone (ACTOS) 30 [...] Daily. Active Cholecalciferol (Vitamin D3) 1.25 MG (80517 UT) tablet Take 1 tablet by mouth [...] Department Care Team Description 12/17/2024 Results Follow-Up [facility] [address] [id number] Cash Khanna DO 12/13/2024 11:15 AM EDT Office Visit [facility] [address] [address] Cash Khanna DO Seronegative rheumatoid [...] Description 06/16/2025 11:15 AM EDT Office Visit [facility] [address] [place] [address] Cash Khanna DO [address] [facility] [address] [place] [address] Health Maintenance Due Date Last Done Comments [...] Clean Catch (12/13/2024 12:39 PM EDT) Pathologist [facility] Amphetamine, Urine Qual Negative Cutoff=10 00 ng/mL [...] 12/17/2024 8:08 AM EDT Performed at: - [facility] [address] [facility], [place], [place] [id number] Data Entry Processor: Kenroy Mills PhD, Phone: [phone] Patient Fasting: N [facility] URINE ORDERABLES Final Result Performing Organization Address [facility] Co de Phone Number [facility] (AMBULATORY) [address] [place] [address], [facility] [address] [place] [address], * Sedimentation Rate (12/13/2024 12:39 PM EDT) Pathologist [facility] Sed Rate 29 0 - 30 mm/hr [facility] Blood 12/13/2024 12:3 9 PM EDT 12/13/2024 Narrative [facility] (AMBULATORY) - 12/17/2024 8:08 AM EDT [facility]formed at: [facility] [address] [place] [id number] Data Entry Processor: Matthew Clark PhD, Phone: [phone] Patient Fasting: N [facility] LAB BLOOD ORDERABLES F inal Result Performing Organization Address [facility] Co de Phone Number [facility] [address] [place] [address], [facility] [address] [place] [id number], * (ABNORMAL) CBC & Differential (12/13/2024 12:39 PM EDT) Pathologist [facility] WBC 7.6 3.4 - 10.8 x10E3/uL [facility] [...] 8:08 AM EDT Performed at: 02 - [address] [id number] Data Entry Processor: Matthew Clark PhD, Phone: [phone] Patient Fasting: N Cash Khanna DO LAB BLOOD ORDERABLES F inal Result [facility] (AMBULATORY) [address] [place] [address], [facility] [address] [place] [address], * C-reactive Protein (12/13/2024 12:39 PM EDT) [facility] C-Reactive Protein 2 0 - 10 mg/L [facility] Blood 12/13/2024 12:3 9 PM EDT 12/13/2024 Narrative [facility] (AMBULATORY) - 12/17/2024 8:08 AM EDT Performed at: 02 - [facility] [address] [place], [place] [id number] Data Entry Processor: Matthew Clark PhD, Phone: [phone] Patient Fasting: N Cash Khanna DO LAB BLOOD ORDERABLES F inal Result [facility] (AMBULATORY) [address] [place] [address], [facility] [address] [place] [address], * (ABNORMAL) Comprehensive Metabolic Panel (12/13/2024 12:39 [...] AM EDT Performed at: 02 - [facility] [address] [facility], [place], [place] [id number] Data Entry Processor: Matthew Clark PhD, Phone: [phone] Patient Fasting: N us Cash Khanna DO LAB BLOOD ORDERABLES F inal Result [facility] (AMBULATORY) [address] [place] [address], [place] [phone] [facility] [address] [place] [address], [place] [phone] from Last 3 Months Insurance [facility] Medicare [employer] PPO Care Teams Diabetic Educator Relationship Specialty Start Date End Date Columba Rodríguez APRN [address] [place] [address] [place] [address] PCP - General Family Medicine 11/10/23
--- OUTSIDE RECORDS SUMMARY | 2025-03-07 21:31 | XMS_ITS | Encounter Summary ---
Author Organization [facility] Address [address] [place] [address] Care Team Providers Care Senior Software Qa Analyst Name Role Phone Unavailable Primary Care Provider Unavailabl e Encounter Details Date Type Department Care Team (Latest Contact Info) Description 02/24/2025 Orders Only [facility] Physicians - Heart & Vascular, [place] [address] [place] [address] Aydee OatesAUGUSTA, [place] [address] [facility] [address] Coronary stent restenosis, initial encounter; Pure hypercholesterolemia Social History Tobacco Use Types Packs/Day Years Used Date Smoking Tobacco: Never Assessed Sex and Gender Information Value Date Recorded Sex Assigned at Not on file Legal Sex Male 2:42 PM EST Gender Identity Not on file Sexual Orientation Not on file documented as of this encounter Plan of Treatment Not on file documented as of this encounter Procedures Procedure Name Priority Date/Time Associated Diagnosis Comments LIVER PROFILE Routine 02/24/2025 Coronary stent restenosis, initial encounter Pure hypercholesterolemia LIPID PROFILE Routine 02/24/2025 Coronary stent restenosis, initial encounter Pure hypercholesterolemia documented in this encounter Results * (ABNORMAL) LIPID PROFILE (02/24/2025) Cholesterol 96(L) mg/dL [facility] LDL Calculated 36(L) mg/dL [facility] HDL 54 [facility] Triglycerides 104 mg/dL [facility] Serum (Serum) 02/24/2025 us Umang Michele NP CHEMISTRY ORDERABLES Fin al Result Performing Organization Address [facility] Co de Phone Number [facility] [address] * LIVER PROFILE (02/24/2025) AST 45 U/L [facility] ALT 43 U/L [facility] Bilirubin, Direct 0.1 [facility] Total Bilirubin 1.5 [facility] Total Protein 702 g/dL [facility] Albumin 4.3 [facility] Alkaline Phosphatase 95 U/L [facility] Serum (Serum) 02/24/2025 Umang Michele NP CHEMISTRY ORDERABLES Fin al Result Performing Organization Address [facility] de Phone Number [facility] [address] documented in this encounter Visit Diagnoses Diagnosis Coronary stent restenosis, initial encounter Pure hypercholesterolemia documented in this encounter
--- OUTSIDE RECORDS SUMMARY | 2025-03-07 21:31 | XMS_ITS | Encounter Summary ---
Author Organization [employer] ([place], [place], [place], [place], [place]) Address [address] [place] [address] Care Team Providers Care Child Protective Services Social Worker Name Role Phone Unavailable Primary Care Provider Unavailabl e Encounter Details Date Type Department Care Team (Late st Contact Info) Description 12/23/2020 Transcribed Document [facility] [place] [facility] [place] [address] ProviderJaime MD [address] [place], [place] [address] Social History Tobacco Use Types Packs/Day Years [...]
--- OUTSIDE RECORDS SUMMARY | 2025-03-07 21:31 | XMS_ITS | Encounter Summary ---
Author Organization [employer] ([place], [place], [place], [place], [place]) Address [address] [place] [address] Care Team Providers Care Tax Technician Name Role Phone Unavailable Primary Care Provider Unavailabl e Encounter Details Date Type Department Care Team (Late st Contact Info) Description 12/22/2020 Transcribed Document [facility] Family Medicine [facility] [place] [address] ProviderJaime MD [address] [place], [place] [phone] Social History Tobacco Use Types Packs/Day Years [...] or 4 frozen water bottles in the [facility] CARE CUBE. Continue to use Incentive [...] Barley. Bulgur wheat. Millet. Bran muffins. Popcorn. Copen wafer crackers. Vegetables Sweet potatoes. Spinach. Kale. Artichokes. Cabbage. Broccoli. Green peas. Carrots. Squash. Fruits Berries. Pears. Apples. Oranges. Avocados. Prunes and raisins. Dried figs. Meats and Other Protein Sources [place], kidney, amador, and soy beans. Split peas. [...] 1 katy has 11 g of protein. [place] seeds ??? 1 oz has 5.5 g [...] the floor. Place frequently used items in womp-ks-zqvru places Keep electrical cables out of the [...] ? Using the bathroom. ? Using household trailhead construction worker or toxic chemicals. ? Touching or [...] activities are safe for you. ??? Take itek-zgu-ebuhqvl and prescription medicines only as told by [...] provider. Document Revised: 03/16/2018 Document Reviewed: 10/27/2017 [employer] Patient Education ? 2020 [employer] documented in this encounter Plan of Treatment Not on file documented as of this encounter Visit Diagnoses Not on filedocumented in this encounter
--- OUTSIDE RECORDS SUMMARY | 2025-03-07 21:31 | XMS_ITS | Encounter Summary ---
Author Organization [employer] ([place], [place], [place], [place], [place]) Address [address] [place] [address] Care Team Providers Care Director Of Field Coordination Name Role Phone Unavailable Primary Care Provider Unavailabl e Encounter Details Date Type Department Care Team (Late st Contact Info) Description 12/09/2020 Transcribed Document [facility] [place] [facility] [place] [address] ProviderJaime MD [address], [place] [phone] Social History Tobacco Use Types Packs/Day Years [...] : Standing scale Weight Entry Format : Dickenson Clinical Dosing Weight : 95.91 kg Weight, Pounds : 211 lb Body Surface Area (BSA) : 2.12 m2 Body Mass Index : 31.2 kg/m2 (HI) [place] Body Weight : 70 kg Michaela lAvarez Rn - 12/09/2020 16:02 EDT Height Source : Stated Height Entry Format : Dickenson Michaela Alvarez Rn - 12/09/2020 15:57 EDT [...] Michaela Alvarez Rn - 12/09/2020 16:02 EDT [place] Suicide Severity Rating Scale (C-SSRS) CSSRS Past [...] Obtained From : Patient Primary Language : Frisian Preferred Communication Mode : Verbal Communication Barrier : None Aquatic Physiotherapist Needed : No Michaela Alvarez Rn - [...]
--- OUTSIDE RECORDS SUMMARY | 2025-03-07 21:31 | XMS_ITS | Encounter Summary ---
Author Organization [employer] ([place], [place], [place], [place], [place]) Address [address] [place] [address] Care Team Providers Care Fleet Administrator Name Role Phone Unavailable Primary Care Provider Unavailabl e Encounter Details Date Type Department Care Team (Late st Contact Info) Description 12/23/2020 Transcribed Document [facility] [place] [facility] [place] [address] ProviderJaime MD [address] [place] [phone] Social History Tobacco Use Types Packs/Day Years [...] III /Sex: 1950 Male Med Rec #: [id number] Physician: KAYLA ZIMMERMAN JR, JR, MD-ORT Financial #: [id number] Pt. Type: O Room/Bed: Admit/Disch: 12/23/20 04:16:00 - Institution[place] [facility] [place] PreOp Case Times Entry 1 In Preop 12/23/20 05:15:00 Ready for Holding n/a Room Patient Ready for 12/23/20 06:42:00 Surgery Patient Out of Preop 12/23/20 07:50:00 Patient Out of n/a Holding Room Last Modified By: Georgie Boyce RN 12/23/20 07:46:17 SJAndrey PreOp Case Times Audit 12/23/20 07:46:17 Fire Hose Curer: NINO Modifier: [email or web address] <+> 1 Patient Out of Preop Finalized By: Georgie Boyce, RN Document Signatures Signed By: Georgie Boyce RN 12/23/20 07:46 documented in this encounter Plan of Treatment Not on file documented as of this encounter Visit Diagnoses Not on filedocumented in this encounter
--- OUTSIDE RECORDS SUMMARY | 2025-03-07 21:31 | XMS_ITS | Clinical Summary ---
Author Organization [employer] ([place], [place], [place], [place], [place]) Address [address] [place] [address] Care Team Providers Care Import/Export Analyst Name Role Phone Unavailable Primary Care [...] Date Milton rded Speak language other than Mauritian at home Not on file 01/23/2024 Want [...] Plan of Treatment Not on file Insurance [facility]
--- OUTSIDE RECORDS SUMMARY | 2025-03-07 21:31 | XMS_ITS | Encounter Summary ---
Author Organization [employer] ([place], [place], [place], [place], [place]) Address [address] [place] [address] Care Team Providers Care Quality Liaison Name Role Phone Unavailable Primary Care Provider Unavailabl e Encounter Details Date Type Department Care Team (Late st Contact Info) Description 12/16/2020 Transcribed Document [facility] [place] [address] ProviderJaime MD [address] [place], [place] [phone] Social History Tobacco Use Types Packs/Day Years [...]
--- OUTSIDE RECORDS SUMMARY | 2025-03-07 21:31 | XMS_ITS | Encounter Summary ---
Author Organization [employer] ([place], [place], [place], [place], [place]) Address [address] [place] [address] Care Team Providers Care Regional Dedicated Truck Driver Name Role Phone Unavailable Primary Care Provider Unavailabl e Encounter Details Date Type Department Care Team (Late st Contact Info) Description 12/23/2020 Transcribed Document [facility] [place] [facility] [place] [address] ProviderJaime MD [address] [place] [address] [phone] Social History Tobacco Use Types Packs/Day Years [...] III /Sex: 1950 Male Med Rec #: [id number] Physician: KAYLA ZIMMERMAN JR, JR, MD-ORT Financial #: [id number] Pt. Type: O Room/Bed: Admit/Disch: 12/23/20 04:16:00 - Institution: [facility] [place] PostOp Case Times Entry 1 In PACU II 12/23/20 11:13:00 Ready for PACU II 12/23/20 13:49:00 Discharge Discharge from PACU 12/23/20 13:49:00 II Last Modified By: Rosa Montes RN 12/23/20 14:04:05 Finalized By: Rosa Montes, RN Document Signatures Signed By: Rosa Montes RN 12/23/20 14:04 Electronically signed by [facility] Conversion Senior Drupal Developer Cerner at 07/09/2022 10:45 AM CDT documented in this encounter Plan of Treatment Not on file documented as of this encounter Visit Diagnoses Not on filedocumented in this encounter
--- OUTSIDE RECORDS SUMMARY | 2025-03-07 21:31 | XMS_ITS | Encounter Summary ---
Author Organization [employer] ([place], [place], [place], [place], [place]) Address [address] [place] [address] Care Team Providers Care Devulcanizer Tender Name Role Phone Unavailable Primary Care Provider Unavailabl e Encounter Details Date Type Department Care Team (Late st Contact Info) Description 12/23/2020 Transcribed Document [facility] [place] [facility] [place] [address] ProviderJaime MD [address] [place], [place] [phone] Social History Tobacco Use Types Packs/Day Years [...] - 12/23/2020 12:43 EDT Electronically signed by Pedro Crowder Conversion Mortician Supplies Sales Representative Cerner at 07/09/2022 10:37 AM CDT documented in this encounter Plan of Treatment Not on file documented as of this encounter Visit Diagnoses Not on filedocumented in this encounter
--- OUTSIDE RECORDS SUMMARY | 2025-03-07 21:31 | XMS_ITS | Encounter Summary ---
Author Organization [employer] ([place], [place], [place], [place], [place]) Address [address] [place] [address] Care Team Providers Care Shearing Machine Operator Name Role Phone Unavailable Primary Care Provider Unavailabl e Encounter Details Date Type Department Care Team (Late st Contact Info) Description 12/23/2020 Transcribed Document [facility] [place] [address] [place] [address] ProviderJaime MD [address] [place] [phone] Social History Tobacco Use Types Packs/Day Years [...]
--- OUTSIDE RECORDS SUMMARY | 2025-03-07 21:31 | XMS_ITS | Encounter Summary ---
Author Organization [employer] ([place], [place], [place], [place], [place]) Address [address] [place] [address] Care Team Providers Care Hair Boiler Name Role Phone Unavailable Primary Care Provider Unavailabl e Encounter Details Date Type Department Care Team (Late st Contact Info) Description 12/23/2020 Transcribed Document [facility] [place] [facility] [address] ProviderJaime MD [address] [place] [id number] Social History Tobacco Use Types Packs/Day Years [...] Date of consult 12/23/2020 10:29 AM PCP Rubné Anthony MD Orthopedic surgeon, Danish Hartman MD [...] EDT Chloraseptic Menthol 1.4% topical spray: 5 [place], Oral, [place], Q2H, PRN for Sore Throat, Routine, Start [...] Oral, Q4H phenol 1.4% throat spray 5 [place], Oral, Q2H promethazine 25 mg tab 12.5 [...] HTN, CAD and cancer Procedure history: Cholecystectomy (68232381). Hernia ([id number]). Rotator cuff right ([id number]). Knee left partial ([id number]). right upper thigh boil. lymph node drained from right arm pit. Colonoscopy ([id number]). EGD - Esophagogastroduodenoscopy ([id number]). heart cath. cardiac stent. Social History Patient [...] swelling, No deformity, Normal gait. Integumentary: Warm, [place], Intact, No pallor, No rash, WOUND STABLE. [...] then you may give Tylenol 650 mg PO/MN x 1. If no response in 2 [...]
--- OUTSIDE RECORDS SUMMARY | 2025-03-07 21:31 | XMS_ITS | Encounter Summary ---
Author Organization [employer] ([place], [place], [place], [place], [place]) Address [address] [place] [address] Care Team Providers Care Real Estate Consultant Name Role Phone Unavailable Primary Care Provider Unavailabl e Encounter Details Date Type Department Care Team (Late st Contact Info) Description 12/23/2020 Transcribed Document [facility] [place] [facility] [place] [address] ProviderJaime MD [address] [place], [place] [phone] Social History Tobacco Use Types Packs/Day Years [...]
--- OUTSIDE RECORDS SUMMARY | 2025-03-07 21:31 | XMS_ITS | Encounter Summary ---
Author Organization [employer] ([place], [place], [place], [place], [place]) Address [address] [place] [address] Care Team Providers Care Interior Systems Carpenter Name Role Phone Unavailable Primary Care Provider Unavailabl e Encounter Details Date Type Department Care Team (Late st Contact Info) Description 12/23/2020 Transcribed Document [facility] [place] [facility] [place] [address] ProviderJaime MD [address] [place] [address] [phone] Social History Tobacco Use Types Packs/Day Years [...] CARLOSDanny /Sex: 1950 Male Med Rec #: [id number] Physician: KAYLA ZIMMERMAN JR, JR, MD-ORT Financial #: [id number] Pt. Type: O Room/Bed: Admit/Disch: 12/23/20 04:16:00 - Institution: [facility] [place] IntraOp Case Attendance Entry 1 Entry 2 Entry 3 Case Attendee KAYLA ZIMMERMAN JR, JR, TARA MERA APRN,ROTARY PUMP OPERATOR HAYDER EASON, LUCIE GRIGSBY Role Performed Surgeon/Proceduralist, ROTARY PUMP OPERATOR/Nurse Administrative Support Specialist Court Messenger, First First Time In 12/23/20 07:51:00 12/23/20 [...] 5 Entry 6 Case Attendee Stephan Boyce, FORECLOSURE FIELD INSPECTOR/INSPECTOR SEMICONDUCTOR WAFER GET ARIAS, Gi Pascal, Scub Tech Role Performed Technology Education Instructor, First Scrub, First Scrub, Second Time In [...] #1 NGOZI PETTY CRNA Role Performed Vendor ROTARY PUMP OPERATOR/Nurse Administrative Support Specialist Time In 12/23/20 07:51:00 12/23/20 08:29:00 Time Out 12/23/20 09:55:00 12/23/20 08:41:00 Procedure Knee Total Joint Knee Total Joint Replacement Replacement Other Attendee FOR[place]URTON ROTARY PUMP OPERATOR BREAK Superficial Wound Closed By: Last Modified By: HAYDER EASON RN LONGSWORTH, GARY, LUCIE 12/23/20 07:19:17 12/23/20 08:29:30 [facility] IntraOp Case Attendance Audit 12/23/20 09:55:23 Shaker Repairer: LONGGA Modifier: LONGGA 1 <+> Time Out [...] Procedure Knee Total Joint Replacement 12/23/20 08:48:55 Shaker Repairer: LONGGA Modifier: LONGGA 8 <+> Time Out 8 <*> Procedure Knee Total Joint Replacement 12/23/20 08:29:30 Shaker Repairer: LONGGA Modifier: LONGGA <+> 8 Case Attendee <+> 8 Role Performed <+> 8 Time In <+> 8 Procedure <+> 8 Other Attendee 12/23/20 08:25:18 Shaker Repairer: LONGGA Modifier: LONGGA 1 <+> Time In [...] Procedure Knee Total Joint Replacement 12/23/20 07:25:50 Shaker Repairer: LONGGA Modifier: LONGGA <+> 1 Procedure 2 [...] [facility] IntraOp Case Times Audit 12/23/20 09:55:21 Shaker Repairer: LONGGA Modifier: LONGGA <+> 1 Out Room Time <+> 1 Stop Time <+> 1 Stop Time 12/23/20 08:21:13 Shaker Repairer: LONGGA Modifier: LONGGA <+> 1 Start Time [...] [facility] IntraOp Counts Verification Audit 12/23/20 09:01:12 Shaker Repairer: LONGGA Modifier: LONGGA <+> 2 Procedure <+> [...] HAYDER EASON, LUCIE, Accompanied by TARA MERA APRN,ROTARY PUMP OPERATOR Last Modified By: HAYDER EASON RN 12/23/20 09:08:10 [facility] IntraOp Dressing and Packing Entry 1 Type Dressing Location RIGHT KNEE Wound Dressing Item Papo Supplemental Limb immobilizer, Cold Applications pack Applied By Stephan Boyce, FORECLOSURE FIELD INSPECTOR/INSPECTOR SEMICONDUCTOR WAFER Other Comments JONATHAN WOUND DRESSING Last Modified [...] RN 12/23/20 07:24:40 [facility] IntraOp General Case Senior Grant Writer 1 Case Information OR OR 02 SJE Case Level 1 Room Verified Yes Wound Class I - Clean Specialty Orthopedic Anesthesia Type General ASA Class 3 Diagnosis Preop Diagnosis DEGENERATIVE JOINT DISEASE, RIGHT KNEE Postop Same As Preop Yes Postop Diagnosis DEGENERATIVE JOINT DISEASE, RIGHT KNEE Last Modified By: HAYDER EASON RN 12/23/20 08:27:58 [facility] IntraOp General Case Data Audit 12/23/20 08:27:58 Shaker Repairer: YVETTE Modifier: LONGGA 1 <*> OR OR [...] PATELLA ITOTAL JIGS CR ITOTAL ID Identification [id number] Description Implant Quantity 2 1 1 Implant Site RIGHT KNEE RIGHT KNEE RIGHT KNEE Implant Identification Model Number Implant [id number] Identification Serial Number Implant [id number] Identification Lot Number Implant Blake:Blake Conformis Conformis Identification Orthopaedics Supervisor Fitting Name: Implant [id number] Identification Catalog Number Implant Size Implant Has an Yes Yes Yes Expiration Date Implant Expiration 01/24/22 09/23/22 12/24/21 Date Wasted Radioactive Material Time Implanted Tissue Implant Continue for Tissue Implant Documentation Tissue Identification Number Graft Prep Per Supervisor Fitting Instructions: Tissue Preparation Method: Reconstitution Solution: Reconstitution Solution Lot Number Reconstitution Solution Expiration Date: Thawing Solution Thawing Solution Lot Number Thawing Solution Expiration Date Preparation Materials, Other Preparation Materials, Other Lot Number Preparation Materials, Other Expiration Date Tissue Prepared/Processed By Supervisor Fitting Paperwork Completed Implant Type Comment Last Modified By: HAYDER EASON RN LONGSWORTH, GARY, HAYDER MASON RN 12/23/20 08:35:18 12/23/20 08:47:19 12/23/20 08:48:23 Entry 4 Entry 5 Entry 6 Type Implant (Synthetic) Implant (Synthetic) Implant (Synthetic) Implant Log Implant Type Hardware Hardware Hardware Tissue Implant Type Implant IMP CR FEM ITOTAL ID TY CR TIB ITOTAL ID KT CR FULL ITOTAL ID Identification [id number] [id number] Description Implant Quantity 1 1 1 Implant Site RIGHT KNEE RIGHT KNEE RIGHT KNEE Implant Identification Model Number Implant [id number] Identification Serial Number Implant Identification Lot Number Implant Conformis Conformis Conformis Identification Supervisor Fitting Name: Implant [id number] Identification Catalog Number Implant Size Implant Has an Yes Yes Yes Expiration Date Implant Expiration 12/24/21 12/24/21 12/24/21 Date Wasted Radioactive Material Time Implanted Tissue Implant Continue for Tissue Implant Documentation Tissue Identification Number Graft Prep Per Supervisor Fitting Instructions: Tissue Preparation Method: Reconstitution Solution: Reconstitution Solution Lot Number Reconstitution Solution Expiration Date: Thawing Solution Thawing Solution Lot Number Thawing Solution Expiration Date Preparation Materials, Other Preparation Materials, Other Lot Number Preparation Materials, Other Expiration Date Tissue Prepared/Processed By Supervisor Fitting Paperwork Completed Implant Type Comment Last Modified By: HAYDER EASON RN LONGSWORTH, GARY, RN LONGSWORTH, GARY, RN 12/23/20 08:49:46 12/23/20 08:51:06 12/23/20 08:52:02 [facility] [place] IntraOp Implant Log Audit 12/23/20 08:52:02 Shaker Repairer: LONGGA Modifier: LONGGA <+> 6 Implant Identification Description <+> 6 Implant Identification Serial Number <+> 6 Implant Identification Supervisor Fitting Name: <+> 6 Implant Expiration Date <+> 6 Implant Site <+> 6 Implant Quantity <+> 6 Implant Identification Catalog Number <+> 6 Implant Type <+> 6 Implant Has an Expiration Date <+> 6 Type 12/23/20 08:51:06 Shaker Repairer: LONGGA Modifier: LONGGA <+> 5 Implant Identification Description <+> 5 Implant Identification Serial Number <+> 5 Implant Identification Supervisor Fitting Name: <+> 5 Implant Expiration Date <+> 5 Implant Site <+> 5 Implant Quantity <+> 5 Implant Identification Catalog Number <+> 5 Implant Type <+> 5 Implant Has an Expiration Date <+> 5 Type 12/23/20 08:49:46 Shaker Repairer: LONGGA Modifier: LONGGA <+> 4 Implant Identification Description <+> 4 Implant Identification Serial Number <+> 4 Implant Identification Supervisor Fitting Name: <+> 4 Implant Expiration Date <+> 4 Implant Site <+> 4 Implant Quantity <+> 4 Implant Identification Catalog Number <+> 4 Implant Type <+> 4 Implant Has an Expiration Date <+> 4 Type 12/23/20 08:48:24 Shaker Repairer: LONGGA Modifier: LONGGA <+> 3 Implant Expiration Date 12/23/20 08:48:23 Shaker Repairer: LONGGA Modifier: LONGGA <+> 3 Implant Identification Description <+> 3 Implant Identification Serial Number <+> 3 Implant Identification Supervisor Fitting Name: <+> 3 Implant Site <+> 3 Implant Quantity <+> 3 Implant Identification Catalog Number <+> 3 Implant Type <+> 3 Implant Has an Expiration Date <+> 3 Type 12/23/20 08:47:19 Shaker Repairer: LONGGA Modifier: LONGGA <+> 2 Implant Identification Description <+> 2 Implant Identification Lot Number <+> 2 Implant Identification Supervisor Fitting Name: <+> 2 Implant Expiration Date <+> [...] By KAYLA ZIMMERMAN JR, JR, ERASMO SILVA, GARZA ERASMO SILVA JR, WALLACE JR, MD-ORT MD-ORT MD-ORT Procedure Irrigation Irrigant Volume In Irrigant Volume Out Last Modified By: HAYDER EASON RN LONGSWORTH, GARY, RN LONGSWORTH, GARY, RN 12/23/20 08:32:34 12/23/20 08:32:34 12/23/20 08:32:34 Entry 4 Entry 5 Medication/Irrigant lidocaine 1% w/ vancomycin 1Gm vial - epinephrine 1:100,000 [id number] 20ml vial - [id number] Combo Med List 4 - Combo Med [...] [facility] IntraOp Medication Admin Audit 12/23/20 08:39:42 Shaker Repairer: LONGGA Modifier: LONGGA <+> 5 Medication/Irrigant <+> [...] JR, MD-ORT, SAMARIA, TARA, URSULA,PAPO, [place]en, Stephan, FORECLOSURE FIELD INSPECTOR/INSPECTOR SEMICONDUCTOR WAFER Position Verified Positioning Yes Verified by Anesthesia [...] SJE IntraOp Surgical Procedures Audit 12/23/20 09:51:54 Shaker Repairer: LONGGA Modifier: LONGGA 1 <*> Procedure Knee Total Joint Replacement 1 <+> Stop 12/23/20 08:21:22 Shaker Repairer: LONGGA Modifier: LONGGA <+> 1 Start SJE IntraOp Temp Regulation Devices Entry 1 Temp Regulation Temperature Warm blankets Regulation Device Temperature Upper body Regulation Site Temperature SAMARIA, TARA, LINUX CONSULTANT,ROTARY PUMP OPERATOR Regulation Device Applied by Last Modified [...] SJE IntraOp Time Out Audit 12/23/20 08:31:31 Shaker Repairer: YVETTE Modifier: YVETTE 1 <+> Surgeon 1 [...] Padded Under Cuff Applied By Stephan Boyce, FORECLOSURE FIELD INSPECTOR/INSPECTOR SEMICONDUCTOR WAFER Times Start Time 12/23/20 08:10:00 Stop Time 12/23/20 08:59:00 Last Modified By: HAYDER EASON RN 12/23/20 09:00:54 [facility] IntraOp Tourniquet Audit 12/23/20 09:00:54 Shaker Repairer: YVETTE Modifier: YVETTE <+> 1 Stop Time Case Comments <None> Finalized By: HAYDER EASON, RN Document Signatures Signed By: HAYDER EASON RN 12/23/20 09:59 documented in this encounter Plan of Treatment Not on file documented as of this encounter Visit Diagnoses Not on filedocumented in this encounter
--- OUTSIDE RECORDS SUMMARY | 2025-03-07 21:31 | XMS_ITS | Encounter Summary ---
Author Organization [facility] Address [address] [place] [address] Care Team Providers Care Cut Plug Packer Name Role Phone Unavailable Primary Care Provider Unavailabl e Reason for Visit * Reason Onset Date Comments Establish Care 02/12/2025 NPV Encounter Details Date Type Department Care Team (Late st Contact Info) Description 02/12/[address] [facility] Physicians - Heart & Vascular, [place] [address] [place] [address] None, None [address] [place] [address] Establish Care (NPV) Social History Tobacco Use Types Packs/Day Years Used Date Smoking Tobacco: Never Assessed Sex and Gender Information Value Date Recorded Sex Assigned at Not on file Legal Sex Male 2:42 PM EST Gender Identity Not on file Sexual Orientation Not on file documented as of this encounter Miscellaneous Notes * Telephone Encounter - Olesya Aleman RN - 02/19/2025 2:15 PM EST Called and spoke to patient Patient reports not receiving cardiac cath letter Confirmed email as [email or web address] Emailed letter * Telephone Encounter - Natividad Kwok - 02/19/2025 12:38 PM EST Pt is returning call. RN not available when pt called * Telephone Encounter - Laverne Dia RN - 02/18/2025 8:58 AM EST Called patient to confirm email address at letter came back undeliverable. [place] [phone]. * Telephone Encounter - Umang Michele NP - 02/17/2025 1:58 PM EST Referral received per Dr. Biggs at [facility] in [place], [place] for critical ostialCIRC w ISR. Pt is s/p R/LHC recently at [facility]. Films have been reviewed per [facility]. Pt needs brachytherapy of the CIRC per [facility]. Time secured with Dr. Sawyer for 02/28/2025 for 10 AM. Date and time 02/28/2025 0915/0715 AM. Brachytherapy medications have been sent to [facility] at . Medications reviewed and entered into system. Marcie sharma will serve as hole digger truck driver. [place], [place] is about 1.5-2 hrs from [facility]. Pletal, Dilt and Rapamune have been sent to [facility] in [place], [place]. [email or web address] Umang Michele, MSN, INSPECTOR SHEET METAL PARTS, VISUAL MERCHANDISE MANAGER-C * Telephone Encounter - Tamra Aparicio - 02/17/2025 8:25 AM EST Called to get insurance information and had to leave a message. * Telephone Encounter - Suzanne Boyce - 02/12/2025 2:44 PM EST Who is calling with referral? Nathalie from [facility] Referred by? Referring Provider: Dr. Biggs Scheduling Preferences for provider and location: Rick Ocampo MD; Tiffany Current concerns/Reason for Referral: Coronary Brachy Therapy - L/RHC today @ [facility] Previous railroad passenger agent: yes Dr. Biggs Previous testing in the last 3 years: L/RHC, Angioplasty(s), Stents Testing performed at which facility (include specific location if possible): [facility] Address current in [facility]: [x] Best phone number(s) to reach patient: [phone] Alternate manager contact for scheduling: Alexandra Rocío [phone] PCP current in [facility]: []Columba Rodríguez NP documented in this encounter Plan of Treatment Scheduled Orders Name Type Priority Associated Diagnoses Orde r Schedule RENAL PROFILE Lab Routine Coronary stent restenosis, initial encounter 1 Occurrences starting 02/17/2025 until 02/17/2026 CBC (COMPLETE BLOOD COUNT) Lab Routine Coronary stent restenosis, initial encounter 1 Occurrences starting 02/17/2025 until 02/17/2026 documented as of this encounter Results * LIVER PROFILE (02/24/2025) AST 45 U/L [facility] ALT 43 U/L [facility] Bilirubin, Direct 0.1 [facility] Total Bilirubin 1.5 [facility] Total Protein 702 g/dL [facility] Albumin 4.3 [facility] Alkaline Phosphatase 95 U/L [facility] Serum (Serum) 02/24/2025 Umang Michele NP CHEMISTRY ORDERABLES Fin al Result Performing Organization Address [facility] Co de Phone Number [facility] [address] * (ABNORMAL) LIPID PROFILE (02/24/2025) Cholesterol 96(L) mg/dL [facility]TE RNAL [facility] LDL Calculated 36(L) mg/dL [facility] E XTERNAL [facility] HDL 54 [facility] Triglycerides 104 mg/dL [facility] Serum (Serum) 02/24/2025 Umang Michele NP CHEMISTRY ORDERABLES Fin al Result Performing Organization Address [facility]/ZIP Co de Phone Number [facility] [address] documented in this encounter Visit Diagnoses Diagnosis Coronary stent restenosis, initial encounter- Primary Pure hypercholesterolemia Stenosis of coronary artery stent, initial encounter documented in this encounter
--- OUTSIDE RECORDS SUMMARY | 2025-03-07 21:31 | XMS_ITS | Encounter Summary ---
Author Organization [facility] Address [address] [place] [id number] Care Team Providers Care Mine Captain Name Role Phone Columba Rodríguez APRN Primary Care Provider [phone] Reason for Visit * Reason Comments Med Refill Encounter Details Date Type Department Care Team (Late Contact Info) Description 09/01/2023 Refill [facility] PULMONARY & CRITICAL CARE MEDICINE [address] [place] [address] Isai Tran MD [address] [place] [address] Social History Tobacco Use Types Packs/Day Years [...] Description 06/16/2025 11:15 AM EDT Office Visit [facility] RHEUMATOLOGY [address] [place] [address] Cash Khanna DO [address] [facility] [address] [place], [place] [id number] documented as of this encounter Visit Diagnoses Not on filedocumented in this encounter Care Teams Mine Captain Relationship Specialty Start Date End Date Columba Rodríguez APRN [address] [place] [phone] PCP - General Family Medicine 11/10/23 documented as of this encounter
--- OUTSIDE RECORDS SUMMARY | 2025-03-07 21:31 | XMS_ITS | Encounter Summary ---
Author Organization [facility] Address [address] [place] [address] Care Team Providers Care Wharf Helper Name Role Phone Unavailable Primary Care Provider Unavailabl e Encounter Details Date Type Department Care Team (Latest Contact Info) Description 02/28/2025 Travel Social History Tobacco Use Types Packs/Day [...]
--- OUTSIDE RECORDS SUMMARY | 2025-03-07 21:31 | XMS_ITS | Encounter Summary ---
Author Organization [employer] ([place], [place], [place], [place], [place]) Address [address] [place] [address] Care Team Providers Care Creative Project Manager Name Role Phone Unavailable Primary Care Provider Unavailabl e Encounter Details Date Type Department Care Team (Late st Contact Info) Description 12/08/2020 Transcribed Document [facility] [place] [facility] [place] [address] ProviderJaime MD [address] [place], [place] [id number] Social History Tobacco Use Types Packs/Day Years [...] Policy Numbers : Insurance 1 Health Plan: [facility] MEDICARE REPL Policy Number: [id number] Authorization Number: Insurance Primary Name : [employer] MEDICARE REPL Policy Number: [id number] Authorization Status-Primary : Opo status approv Authorized Service Begin Date-Primary : 12/16/2020 EDT Observation Authorization Nbr-Primary : [id number] Authorization Comments-Primary : [employer] Medicare approved for outpt per availity Historical Authorization Comments-Primary : No Authorization Comments Found ROLANDO TABARES RN-Utilization Review - 12/08/2020 15:21 EDT Electronically signed by Pedro Crowderh Conversion Surveyor Instrument Assistant Cerner at 07/09/2022 10:42 AM CDT documented in this encounter Plan of Treatment Not on file documented as of this encounter Visit Diagnoses Not on filedocumented in this encounter
--- OUTSIDE RECORDS SUMMARY | 2025-03-07 21:31 | XMS_ITS | Clinical Summary ---
Author Organization [facility] Address [address] [place] [address] Care Team Providers Care Dietary Aide Teacher Name Role Phone Columba Rodríguez URSULA Primary Care Provider [phone] Shay Biggs MD Unavailable [phone] Allergies Active Allergy Reactions Criticality Noted Date [...] Wellness (AWV) 1950 UKY-Infant/Child/Adol SDOH Screenings 1950 [id number] Vaccine (#1) 1957 Diabetes: Dental Exam 1962 [...] Recently Relevant to Health Maintenance Results * [place] Hepatitis C Antibody (02/13/2019 6:35 PM EST) [place] Hepatitis C Ab NEGATIVE Reference Range: Negative [facility] 02/13/2019 6:35 PM EST 02/13/2019 7:06 PM EST us Major Diaz MD LAB BLOOD ORDERABLES Final Re sult [facility] from Last 3 Months or Most Recently Relevant to Health Maintenance Insurance DR [id number], [address] MEDICARE Care Teams Dietary Aide Teacher Relationship Specialty Start Date End Date Columba Rodríguez APRN [address] [place] [address] PCP - General 11/04/24 Shay Biggs MD [address] [facility] [address] [place] [address] Referring Physician Cardiology 11/04/24
--- OUTSIDE RECORDS SUMMARY | 2025-03-07 21:31 | XMS_ITS | Encounter Summary ---
Author Organization [employer] ([place], [place], [place], [place], [place]) Address [address] [place] [address] Care Team Providers Care Sql Etl Developer Name Role Phone Unavailable Primary Care Provider Unavailabl e Encounter Details Date Type Department Care Team (Late st Contact Info) Description 12/23/2020 Transcribed Document [facility] [place] [facility] [place] [address] ProviderJaime MD [address] [place], [place] [address] Social History Tobacco Use Types Packs/Day Years [...] : Yes Discharge To Care Management : Home/Residential/[facility] or Self Care -01 ANGELA NGUYEN RN - 12/23/2020 15:58 EDT Final Narrative Note Final Narrative Note : Tara called back and cant take patient due to staffing. Sent Referral out to Poppy TRUONG and Nicolette notified. Pt discharged home with BROOKS TRUONG to follow. No further CM needs identiifed. ANGELA NGUYEN RN - 12/23/2020 15:58 EDT Electronically signed by Adolph Crowder Conversion Production Lapping Machine Operator Cerner at 07/09/2022 10:37 AM CDT documented in this encounter Plan of Treatment Not on file documented as of this encounter Visit Diagnoses Not on filedocumented in this encounter
--- OUTSIDE RECORDS SUMMARY | 2025-03-07 21:31 | XMS_ITS | Encounter Summary ---
Author Organization [employer] ([place], [place], [place], [place], [place]) Address [address] [place] [address] Care Team Providers Care Rotary Drier Operator Name Role Phone Unavailable Primary Care Provider Unavailabl e Encounter Details Date Type Department Care Team (Late st Contact Info) Description 12/23/2020 Transcribed Document [facility] [place] [facility] [place] [address] ProviderJaime MD [address] [place] [id number] Social History Tobacco Use Types Packs/Day Years [...] knee 12/23/2020 12:00 Atherosclerotic heart disease of [place] coronary artery without angina pectoris 12/23/2020 12:00 [...]
--- OUTSIDE RECORDS SUMMARY | 2025-03-07 21:32 | XMS_ITS | Encounter Summary ---
Author Organization [employer] ([place], [place], [place], [place], [place]) Address [address] [place] [address] Care Team Providers Care Neurosurgical Physician Assistant Name Role Phone Unavailable Primary Care Provider Unavailabl e Encounter Details Date Type Department Care Team (Late st Contact Info) Description 12/23/2020 Transcribed Document [facility] [place] [facility] [place] [address] ProviderJaime MD [address] [place] [address] Social History Tobacco Use Types [...] assessment Pain Scale Used : 0-10 Scale Geogrie Boyce RN - 12/23/2020 6:56 EDT Height and Weight, Clinical Dosing Height Source : Measured Height Entry Format : Grandy Height, Feet : 5 ft(Converted to: 152 cm, 60 Inch) Height, Inches : 9 Inch(Converted to: 0 ft 9 Inch, 22.86 cm) Clinical Height : 175.26 cm Weight Source : Standing scale Weight Entry Format : Grandy Clinical Dosing Weight : 96.36 kg Weight, Pounds : 212 lb Body Surface Area (BSA) : 2.12 m2 Body Mass Index : 31.4 kg/m2 (HI) [place] Body Weight : 70 kg Georgie Boyce [...] Georgie Boyce RN - 12/23/2020 6:56 EDT [place] Suicide Severity Rating Scale (C-SSRS) CSSRS Past [...] #2 Relationship : . Primary Language : Guyanese Preferred Communication Mode : Verbal Communication Barrier : None Optical Glass Etcher Needed : No Georgie Boyce RN - [...]
--- OUTSIDE RECORDS SUMMARY | 2025-03-07 21:32 | XMS_ITS | Encounter Summary ---
Author Organization [facility] ([place], [place], [place], [place], [place]) Address [address] [place] [address] Care Team Providers Care Pharmacy Technologist Name Role Phone Unavailable Primary Care Provider Unavailabl e Encounter Details Date Type Department Care Team (Late st Contact Info) Description 12/23/2020 Transcribed Document [facility] [place] [facility] [place] [address] ProviderJaime MD [address] [place] [id number] Social History Tobacco Use Types Packs/Day Years [...] knee 12/23/2020 12:00 Atherosclerotic heart disease of [place] coronary artery without angina pectoris 12/23/2020 12:00 [...]
--- OUTSIDE RECORDS SUMMARY | 2025-03-07 21:32 | XMS_ITS | Encounter Summary ---
Author Organization [employer] ([place], [place], [place], [place], [place]) Address [address] [place] [address] Care Team Providers Care Engineering Design Supervisor Name Role Phone Unavailable Primary Care Provider Unavailabl e Encounter Details Date Type Department Care Team (Late st Contact Info) Description 12/23/2020 Transcribed Document [facility] [place] [facility] [place] [address] ProviderJaime MD [address] [place] [address] Social History Tobacco Use Types Packs/Day Years Used Date Smoking Tobacco: Never Assessed Sex and Gender Information Value Date Recorded Sex Assigned at Not on file Legal Sex Male 5:28 PM CDT Gender Identity Not on file Sexual Orientation Not on file documented as of this encounter Miscellaneous Notes * Cerner Conversion Note - Jaime ProviderMD - 12/23/2020 1:22 [place] [address] AYLEEN BLACK III :1950 Visit Time:12/23/2020 What [...] then 6 days after surgery Community Services: [facility] Physical Therapy Home Health Services: [...] When 12/29/2020 09:45 AM EDT Where: [address] [facility] [address] FLO[address] [place] [id number] Medications What How Much When Instructions Next [...] or 4 frozen water bottles in the [facility] CARE CUBE. Continue to use Incentive Spirometer [...] Barley. Bulgur wheat. Millet. Bran muffins. Popcorn. [place] wafer crackers. Vegetables Sweet potatoes. Spinach. Kale. Artichokes. Cabbage. Broccoli. Green peas. Carrots. Squash. Fruits Berries. Pears. Apples. Oranges. Avocados. Prunes and raisins. Dried figs. Meats and Other Protein Sources [place], kidney, amador, and soy beans. Split peas. [...] 1 katy has 11 g of protein. Adams seeds ??? 1 oz has 5.5 g [...] the floor. Place frequently used items in senw-cg-drile places Keep electrical cables out of the [...] ? Using the bathroom. ? Using household limb driver or toxic chemicals. ? Touching or taking [...] activities are safe for you. ??? Take hjzt-qhw-eohfshm and prescription medicines only as told by [...] provider. Document Revised: 03/16/2018 Document Reviewed: 10/27/2017 [facility] Patient Education ?? 2020 [employer]. acetaminophen (oral) (a SEET a MIN oh fen) Actamin, Anacin AF, Aurophen, Bromo [place], Children's Tylenol, Mapap, M-Pap, Pharbetol, Silapap Childrens, [...] is a pain reliever and a fever board attendant. There are many brands and forms of [...] may report side effects to FDA at 3-353-USQ-1360. What other drugs will affect acetaminophen? Other drugs may affect acetaminophen, including prescription and qltz-bpc-cnnhbjh medicines, vitamins, and herbal products. Tell your [...] to ensure that the information provided by [employer]. ('[employer]') is accurate, up-to-date, and complete, but no guarantee is made to that effect. Drug information contained herein may be time sensitive. [employer] information has been compiled for use by healthcare practitioners and consumers in the [place] and therefore [employer] does not warrant that uses outside of the [place] are appropriate, unless specifically indicated otherwise. [employer]'s drug information does not endorse drugs, diagnose patients or recommend therapy. [facility] drug information is an informational resource designed [...] effective or appropriate for any given patient. [facility] does not assume any responsibility for any aspect of healthcare administered with the aid of information [facility] provides. The information contained herein is not intended to cover all possible uses, directions, precautions, warnings, drug interactions, allergic reactions, or adverse effects. If you have questions about the drugs you are taking, check with your doctor, nurse or pharmacist. Copyright 2322-6249 [facility]. Version: 21.04. Revision Date: 11/01/2019. aspirin (oral) ( pir in) Arthritis Pain, Aspi-Cor, Aspir-Low, Nusrat Plus, Durlaza, Ecotrin, Miniprin, Vazalore What is the most important information I should know about aspirin? Aspirin can cause Tonia's syndrome, a serious and sometimes fatal condition in children. What is aspirin? Aspirin is a salicylate (ji-YSB-rx-ate) that is used to treat pain, and [...] may report side effects to FDA at 3-737-BZX-6286. What other drugs will affect aspirin? Ask [...] drugs may affect aspirin, including prescription and vwmi-ggg-jsznjnj medicines, vitamins, and herbal products. Not all [...] to ensure that the information provided by [employer]') is accurate, up-to-date, and complete, but no guarantee is made to that effect. Drug information contained herein may be time sensitive. [employer] information has been compiled for use by healthcare practitioners and consumers in the [place] and therefore [employer] does not warrant that uses outside of the [place] are appropriate, unless specifically indicated otherwise. [employer] drug information does not endorse drugs, diagnose patients or recommend therapy. [employer] drug information is an informational resource designed [...] effective or appropriate for any given patient. [employer] does not assume any responsibility for any aspect of healthcare administered with the aid of information [facility] provides. The information contained herein is not intended to cover all possible uses, directions, precautions, warnings, drug interactions, allergic reactions, or adverse effects. If you have questions about the drugs you are taking, check with your doctor, nurse or pharmacist. Copyright 2420-3458 [employer]. Version: 16.03. Revision Date: 09/21/2020. oxycodone (ox [...] The extended-release form of oxycodone is for lbinjw-ock-gaoph treatment of pain and should not be [...] against the law. Stop taking all other jefatd-alg-bkfmm opioid pain medicines when you start taking [...] may report side effects to FDA at 4-616-RBH-9966. What other drugs will affect oxycodone? You [...] may affect oxycodone. This includes prescription and olkl-vyd-hawmtjc medicines, vitamins, and herbal products. Not all [...] to ensure that the information provided by [employer]') is accurate, up-to-date, and complete, but no guarantee is made to that effect. Drug information contained herein may be time sensitive. [employer] information has been compiled for use by healthcare practitioners and consumers in the [place] and therefore [employer] does not warrant that uses outside of the [place] are appropriate, unless specifically indicated otherwise. [employer] drug information does not endorse drugs, diagnose patients or recommend therapy. [employer] drug information is an informational resource designed [...] effective or appropriate for any given patient. [employer] does not assume any responsibility for any aspect of healthcare administered with the aid of information [employer] provides. The information contained herein is not intended to cover all possible uses, directions, precautions, warnings, drug interactions, allergic reactions, or adverse effects. If you have questions about the drugs you are taking, check with your doctor, nurse or pharmacist. Copyright 0365-4524 [facility] [employer]. Version: 14.02. Revision Date: 04/23/2020. docusate (oral/rectal) [...] may report side effects to FDA at 1-855-QPG-5705. What other drugs will affect docusate? Other drugs may affect docusate, including prescription and cssp-cre-gdqadzs medicines, vitamins, and herbal products. Tell your [...] to ensure that the information provided by [employer]') is accurate, up-to-date, and complete, but no guarantee is made to that effect. Drug information contained herein may be time sensitive. [employer] information has been compiled for use by healthcare practitioners and consumers in the [place] and therefore [employer] does not warrant that uses outside of the [place] are appropriate, unless specifically indicated otherwise. [employer]'s drug information does not endorse drugs, diagnose patients or recommend therapy. [employer] drug information is an informational resource designed [...] effective or appropriate for any given patient. [employer] does not assume any responsibility for any aspect of healthcare administered with the aid of information [employer] provides. The information contained herein is not intended to cover all possible uses, directions, precautions, warnings, drug interactions, allergic reactions, or adverse effects. If you have questions about the drugs you are taking, check with your doctor, nurse or pharmacist. Copyright 4289-2236 [employer]. Version: 4.01. Revision Date: 10/01/2018. cephalexin (sef a EHCTOR in) Keflex What is the most important [...] may report side effects to FDA at 3-167-POE-2007. What other drugs will affect cephalexin? Tell your doctor about all your other medicines, especially: ?? metformin; or ?? probenecid. This list is not complete. Other drugs may affect cephalexin, including prescription and moie-yyu-bmvomcj medicines, vitamins, and herbal products. Not all [...] to ensure that the information provided by [employer] ('[employer]') is accurate, up-to-date, and complete, but no guarantee is made to that effect. Drug information contained herein may be time sensitive. [employer] information has been compiled for use by healthcare practitioners and consumers in the [place] and therefore [employer] does not warrant that uses outside of the [place] are appropriate, unless specifically indicated otherwise. [employer] drug information does not endorse drugs, diagnose patients or recommend therapy. [employer] drug information is an informational resource designed [...] effective or appropriate for any given patient. [employer] does not assume any responsibility for any aspect of healthcare administered with the aid of information [employer] provides. The information contained herein is not intended to cover all possible uses, directions, precautions, warnings, drug interactions, allergic reactions, or adverse effects. If you have questions about the drugs you are taking, check with your doctor, nurse or pharmacist. Copyright 4679-0669 [employer]. Version: 10.03. Revision Date: 03/30/2020. tramadol (TRAM [...] tramadol? Electronically signed by Adolph Crowder Conversion Machined Parts Quality Inspector [employer] at 07/09/2022 10:47 AM CDT documented in this encounter Plan of Treatment Not on file documented as of this encounter Visit Diagnoses Not on filedocumented in this encounter
--- OUTSIDE RECORDS SUMMARY | 2025-03-07 21:32 | XMS_ITS | Encounter Summary ---
Author Organization [employer] ([place], [place], [place], [place], [place]) Address [address] [place] [id number] Care Team Providers Care Deliverer Food Name Role Phone Unavailable Primary Care Provider Unavailabl e Encounter Details Date Type Department Care Team (Late st Contact Info) Description 12/23/2020 Transcribed Document [facility] [place] [facility] [place] [address] ProviderJaime MD [address] [place] [address] Social History Tobacco Use Types Packs/Day [...] 12/23/2020 7:23 EDT Electronically signed by Lakesha, Adolph Conversion License And Permit Specialist Cerner at 07/09/2022 10:51 AM CDT documented in this encounter Plan of Treatment Not on file documented as of this encounter Visit Diagnoses Not on filedocumented in this encounter
--- OUTSIDE RECORDS SUMMARY | 2025-03-07 21:32 | XMS_ITS | Encounter Summary ---
Author Organization [employer] ([place], [place], [place], [place], [place]) Address [address] [place] [address] Care Team Providers Care Slot Floor Attendant Name Role Phone Unavailable Primary Care Provider Unavailabl e Encounter Details Date Type Department Care Team (Late st Contact Info) Description 12/23/2020 Transcribed Document [facility] [place] [facility] [place] [address] ProviderJaime MD [address] [place], [place] [id number] Social History Tobacco Use Types Packs/Day Years Used Date Smoking Tobacco: Never Assessed Sex and Gender Information Value Date Recorded Sex Assigned at Not on file Legal Sex Male 5:28 PM CDT Gender Identity Not on file Sexual Orientation Not on file documented as of this encounter Miscellaneous Notes * Cerner Conversion Note - Jaime ProviderMD - 12/23/2020 8:11 AM CDT [facility] [place] PACU Summary Primary Physician: KAYLA ZIMMERMAN JR, JR, MD-ORT Finalized Date/Time: 12/23/20 11:16:13 Pt. Name: AYLEEN BLACK III /Sex: 1950 Male Med Rec #: [id number] Physician: KAYLA ZIMMERMAN JR, JR, MD-ORT Financial #: [id number] Pt. Type: O Room/Bed: Admit/Disch: 12/23/20 04:16:00 - Institution: [facility] OR PACU Case Times Entry 1 In PACU I 12/23/20 09:56:00 Ready for PACU 12/23/20 11:12:00 Discharge Discharge from PACU 12/23/20 11:12:00 I Last Modified By: Janene Helm RN 12/23/20 11:16:01 [facility] Main OR PACU Case Times Audit 12/23/20 11:16:01 Interventional Physiatrist: KINZA Modifier: CAILINEC 1 <*> Ready for PACU Discharge 12/23/20 10:30:00 1 <+> Discharge from PACU I Finalized By: Janene Helm RN Document Signatures Signed By: Janene Helm RN 12/23/20 11:16 documented in this encounter Plan of Treatment Not on file documented as of this encounter Visit Diagnoses Not on filedocumented in this encounter
--- NOTE | 2025-03-07 21:39 | CT_ITS ---
PROCEDURE INFORMATION: Exam: CT Head Without Contrast Exam date and time: 03/07/2025 10:48 PM Age: 74 years old Clinical indication: Injury or trauma; Fall; Other: Unknown TECHNIQUE: Imaging protocol: Computed tomography of the head without contrast. Radiation optimization: All CT scans at this facility use at least one of these dose optimization techniques: automated exposure control; mA and/or kV adjustment per patient size (includes targeted exams where dose is matched to clinical indication); or iterative reconstruction. COMPARISON: CT HEAD/BRAIN WO CON 07/23/2024 8:34 PM FINDINGS: Brain: No evidence for intracranial hemorrhage, mass lesions or acute stroke. Intracranial vascular calcifications. Mild small vessel ischemic change in the periventricular white matter. Cerebral ventricles: No ventriculomegaly. Pituitary gland and sella: Negative Paranasal sinuses: Visualized sinuses are unremarkable. No fluid levels. Mastoid air cells: Visualized mastoid air cells are well aerated. Orbital cavities: Negative. Bones: Unremarkable. No acute fracture. Soft tissues: Unremarkable. Vasculature: Negative. Other findings: Mild generalized atrophy. IMPRESSION: 1. No evidence for intracranial hemorrhage, mass lesions or acute stroke. 2. Intracranial vascular calcifications. 3. Mild generalized atrophy. 4. Mild small vessel ischemic change in the periventricular white matter.
--- NOTE | 2025-03-07 21:39 | CT_ITS ---
PROCEDURE INFORMATION: Exam: CTA Chest Without And With Contrast Exam date and time: 03/07/2025 10:58 PM Age: 74 years old Clinical indication: Shortness of breath TECHNIQUE: Imaging protocol: Computed tomographic angiography of the chest without and with contrast. Exam focused on the arteries. 3D rendering (Not supervised by radiologist): MIP and/or 3D reconstructed images were created by the technologist. Radiation optimization: All CT scans at this facility use at least one of these dose optimization techniques: automated exposure control; mA and/or kV adjustment per patient size (includes targeted exams where dose is matched to clinical indication); or iterative reconstruction. Contrast material: ISOVUE; Contrast volume: 80 ml; Contrast route: INTRAVENOUS (IV); COMPARISON: CT ANGIO CHEST PE PROTOCOL 03/04/2025 12:42 PM FINDINGS: Pulmonary arteries: No pulmonary embolus. Mild beam hardening and motion artifact limits evaluation. Aorta: Unremarkable. No aortic aneurysm. No aortic dissection. Lungs: Interval improvement of the previously noted ground-glass opacities with mild residual interlobular septal thickening in the bilateral upper and lower lobes which may represent mild pulmonary edema. Pleural spaces: Unremarkable. No pneumothorax. No pleural effusion. Heart: Unremarkable. No cardiomegaly. No pericardial effusion. Coronary arteries: LAD and left circumflex stents versus calcifications. Lymph nodes: Unremarkable. No enlarged lymph nodes. Bones/joints: Right humeral head anchoring screws. Mild left glenohumeral joint effusion. No acute fracture. Multilevel spondylosis. Soft tissues: Unremarkable. IMPRESSION: 1. No pulmonary embolus. Mild beam hardening and motion artifact limits evaluation. 2. Interval improvement of the previously noted ground-glass opacities with mild residual interlobular septal thickening in the bilateral upper and lower lobes which may represent mild pulmonary edema.
--- NOTE | 2025-03-07 21:49 | ED_ITS ---
<Statement entered by Caron Burt DO - 03/08/25 01:37> I was consulted by the DIPAK, and we discussed the complexity of problems being addressed. I approve the treatment and management plan for this patient's care in the emergency department, thus performing a substantial portion of the medical decision making. Caron Burt DO Discharge Plan Disposition Patient Disposition: Admitted Condition: Good Clinical Impressions Clinical Impression: Weakness, Pre-syncope Discharge ED Provider: Caron Burt HPI <Tatianna Sandoval (ED), PEDIATRIC DENTIST - Last Filed: 03/07/25 22:03> General Chief Complaint: Weakness Stated Complaint: AO 03/07 Falling around, vomiting, a little AMS Time Seen by Provider: 03/07/25 21:27 History of Present Illness HPI narrative: 74-year-old male presents to the ED for complaint of falling 3 times today after having shaking episodes, then vomiting and passing out or falling, unsure which one is happening. Patient had surgery at a week ago. They discharged him from the hospital yesterday. He started having problems immediately after the discharge. He has been weak and vomiting. His states that he has fallen 3 times today and each time he falls he has that shaking episode and falls backward. She is unsure what is happening. She says that he had a procedure that only does where they do a heart cath and fixed to stents. He was here on 03 04 for flutter and fib in the 170s. Related Data Home Medications ?Medication ?Instructions ?Recorded ?Confirmed omeprazole 40 mg capsule,delayed 40 mg PO DAILY 03/04/25 release tramadol 50 mg tablet 100 mg PO TIDP PRN Moderate Pain 12/23/24 03/04/25 (Scale Score 5-6) cilostazol 100 mg tablet 100 mg PO BID 02/18/2503/04 finerenone 20 mg tablet 20 mg PO DAILY 02/18/2512/19 albuterol sulfate 90 mcg/actuation 2 puff inhalation Q 4HP PRN 03/04/25 03/04/25 aerosol inhaler Shortness Of Breath cyclobenzaprine 10 mg tablet 10 mg PO Q8HP PRN muscle spasm 03/04/25 03/04/25 famotidine 40 mg tablet 40 mg PO HS 12/09/25 12/09/2 5 lidocaine 5 % topical patch 1 patch topical DAILY 12/1903/04/25 metformin 1,000 mg tablet 1,000 mg PO BID 03/04/2512/19 metoprolol succinate 50 mg 50 mg PO DAILY 03/04/2512/19 tablet,extended release 24 hr ondansetron HCl 4 mg tablet 4 mg PO Q8HP PRN nausea an d 03/04/25 03/04/25 vomiting tamsulosin 0.4 mg capsule 0.4 mg PO DAILY 03/04/2512/19 sirolimus 1 mg tablet 3 mg PO DAILY 03/06/2503/06 Previous Rx's ?Medication ?Instructions ?Recorded atorvastatin 40 mg tablet 40 mg PO HS 30 days #90 tabs 06/25/24 folic acid 1 mg tablet 1 mg PO DAILY #90 tabs 08/05 clopidogrel 75 mg tablet 75 mg PO DAILY #90 tabs 10/25 06/18 Diabetic Shoes (DME) #1 ea 12/04/24 dapagliflozin propanediol 10 mg 10 mg PO DAILY #90 tab s 12/25/24 tablet (Farxiga) fluticasone propionate 50 2 spray intranasal BID 90 da ys #90 12/26/24 mcg/actuation nasal grams spray,suspension (Flonase Allergy Relief) Dexcom G7 Sensor (blood-glucose #9 ea 02/03/25 sensor) Humalog Mix 75-25 KwikPen U-100 20 unit (0.2 mL) SQ BI D #45 mL 02/03/25 insulin 100 unit/mL subcutaneous pen (insulin lispro protamin-lispro) pen needle, diabetic 32 gauge x #100 ea 02/11/25 1/6 Mounjaro 2.5 mg/0.5 mL 2.5 mg (0.5 mL) SQ WEEKLY 3 months 02/24/25 subcutaneous pen injector #6 mL (tirzepatide) Held on 03/06/25. Instructions: until completes PO antibiotics amiodarone 200 mg tablet 400 mg (2 x 200 mg) PO BID 3 0 days 03/06/25 #120 tabs bumetanide 1 mg tablet 1 mg PO BIDL #60 tabs potassium chloride 20 mEq 20 meq PO DAILY #30 tabs 02/18 tablet,extended release (K-Tab) rivaroxaban 15 mg tablet (Xarelto) 15 mg PO DAILY 30 d ays #0 tabs 03/06/25 vancomycin 50 mg/mL oral solution 125 mg (2.5 mL) PO Q ID #150 mL 03/06/25 (Firvanq) Allergies Allergy/AdvReac Type Severity Reaction Status Date / Time Penicillins (PENICILLINS) Allergy Unknown I-ITCHING Verified 03/04/25 10:57 <Caron Burt DO - Last Filed: 03/08/25 01:37> History of Present Illness HPI narrative: 74-year-old male presents to the ED for complaint of falling 3 times today after having shaking episodes, then vomiting and passing out or falling, unsure which one is happening. Patient had surgery at a week ago. They discharged him from the hospital yesterday. He started having problems immediately after the discharge. He has been weak and vomiting. His states that he has fallen 3 times today and each time he falls he has that shaking episode and falls backward. She is unsure what is happening. She says that he had a procedure that only does where they do a heart cath and fixed to stents. He was here on 03 04 for flutter and fib in the 170s. On further discussion with the patient, he states that each episode has been presyncopal in nature, patient has not lost consciousness. He states that when they occur he has been standing. He states that when he goes to try to walk he feels shaky and then has fallen to the ground. Patient has been awake during each episode. states that she took his blood pressure as well as his blood sugar during each episode and they were normal. Further chart review, patient had a brachytherapy stent placed at . Patient was admitted here at [facility] discharged 2 days ago and had an increase in his hypertension medications as well as an increase in his Lasix. [facility] <Tatianna Sandoval (ED), PEDIATRIC DENTIST - Last Filed: 03/07/25 22:03> [facility] Disclaimer: The information contained in this section may have been updated after the patient was seen, as this information can be updated by other users. Medical History (Updated 03/08/25 @ 01:28 by Caron Burt DO) C. difficile diarrhea Acute on chronic heart failure with preserved ejection fraction (HFpEF) NSTEMI (non-ST elevated myocardial infarction) Short of breath on exertion (HFpEF) heart failure with preserved ejection fraction GERD (gastroesophageal reflux disease) COVID URI (upper respiratory infection) Pre-ulcerative calluses Thyromegaly Eustachian tube dysfunction Bilateral tinnitus Dysphagia Throat tightness Acquired lymphedema Hematoma of left lower leg Cellulitis of lower leg Dyspnea on exertion ILD (interstitial lung disease) Left renal mass Acute nontraumatic kidney injury Hypomagnesemia Elevated brain natriuretic peptide (BNP) level Dyspnea Elevated troponin Chronic GERD Orthostatic hypotension Dizziness Atypical angina Cellulitis of right leg Vocal cord edema Ringing in right ear Chronic hoarseness Globus sensation Vertigo Diverticulitis IBS (irritable bowel syndrome) Latent tuberculosis Rheumatoid arthritis Viral gastroenteritis Laceration of face Atrial flutter Asbestos exposure Tachycardia Abnormal ECG Preoperative testing Episodic confusion Allergic rhinitis Latent tuberculosis by blood test Restrictive lung disease Left sided abdominal pain Left shoulder strain Left groin pain Claustrophobia Chronic cough Cognitive complaints Edema of both lower extremities Decreased pedal pulses Non-healing ulcer of foot Decreased ROM of right shoulder Right shoulder pain Right shoulder injury Pes planus of both feet Skin lesion Impotence Low back pain Left against medical advice Memory loss Chronic SI joint pain Radiculopathy Neuropathic pain Leg pain, posterior Kidney stone Ingrown toenail of right foot Splinter of toe of left foot Pain of left great toe Cellulitis of great toe of right foot Acute bacterial bronchitis Incurved toenail Diabetes mellitus Onychomycosis Pain in both feet Callus of foot Diabetic foot ulcer Acute febrile illness SIRS (systemic inflammatory response syndrome) Left against medical advice Lower extremity edema Epistaxis Encounter for pre-operative cardiovascular clearance Sepsis Urinary incontinence Weakness Cellulitis, leg Obesity (BMI 30-39.9) Acute delirium Cellulitis Severe sepsis SIRS (systemic inflammatory response syndrome) Physical deconditioning Bacterial pneumonia Hypokalemia Bronchitis due to COVID-19 virus Pneumonia due to COVID-19 virus COVID-19 virus infection Exposure to COVID-19 virus Viral syndrome Acute bronchitis Hematuria Kidney stone on right side Multiple renal cysts Cough Diastolic dysfunction Mental status change resolved HTN (hypertension) Dyspnea SOB (shortness of breath) HHD (hypertensive heart disease) Pre-op evaluation Microalbuminuria Enlarged prostate History of IBS Diabetes Surgical History (Updated 03/08/25 @ 00:00 by Background Daemon) History of brachytherapy History of cardiac cath History of total right knee replacement History of rotator cuff surgery History of coronary artery stent placement History of cholecystectomy Hx of total knee arthroplasty Family History Other Cancer Cerebral palsy Dementia Diabetes Social History Smoking Status: Never smoker alcohol intake: never counseling provided: none substance use type: denies use current occupational status: employed and retired Travel in the last 8 weeks?: None household members: spouse housing: house caffeine: Yes Have you lived/traveled outside [place] in past 30 days?: No Contact w/someone who lives/traveled outside US past 30 days?: No Exposure to someone with infectious disease in past 14 days?: No Do you have a fever (greater than 100.4 F or 38 C)?: No Have you tested positive for COVID-19?: No Exposed to someone with COVID-19 in past 14 days?: No Do you have a sore throat?: No Do you have a cough?: No Do you have any weakness?: No Do you have any diarrhea?: No Are you experiencing any unusual bleeding?: No Do you have any muscle aches/pain?: No Do you have any abdominal pain?: No Are you experiencing loss of taste or smell?: No Other Medical History Have you received the Flu Vaccine for this season: No Have you received the Pneumonia Vaccine: No <Tatianna Sandoval (ED), PEDIATRIC DENTIST - Last Filed: 03/07/25 22:03> ROS Obtained: Yes Systems reviewed as appropriate & no additional complaints except as documented Constitutional Constitutional: Reports as per HPI <Caron Burt DO - Last Filed: 03/08/25 01:37> ROS Obtained: Yes All systems reviewed & no additional complaints except as documented and Yes Systems reviewed as appropriate & no additional complaints except as documented Physical Exam <Tatianna Sandoval (ED), PEDIATRIC DENTIST - Last Filed: 03/07/25 22:03> General General appearance: alert and in distress Head Head exam: normocephalic Eye Eye exam: Present PERRL and EOMI ENT ENT exam: Present normal oropharynx and mucous membranes moist Neck Neck exam: Present full ROM and trachea midline Respiratory Respiratory exam: Present normal lung sounds bilaterally Cardiovascular Cardiovascular exam: Present normal rhythm, normal heart sounds, +S1 and +S2 Abdominal Exam Abdominal exam: Present soft and normal bowel sounds Extremities Exam Extremities exam: Present normal inspection, full ROM and normal capillary refill Neurological Exam Neurological exam: Present alert and oriented X3 Skin Skin exam: Present warm and dry HEART Score <Tatianna Sandoval (ED), PEDIATRIC DENTIST - Last Filed: 03/07/25 22:03> HEART Score HEART Score assessment performed?: Yes History (anamnesis): Moderately suspicious ECG: Non-specific disturbance Age: >65 years Risk factors: 3 or more risk factors Troponin: </= normal limit HEART Score: 6 <Caron Burt, DO - Last Filed: 03/08/25 01:37> HEART Score HEART Score: 6 Critical Care <Tatiannanahum Sandoval (ED), PEDIATRIC DENTIST - Last Filed: 03/07/25 22:03> Critical Care Time Critical Care Time: No Medical Decision Making <[facility] (ED), PEDIATRIC DENTIST - Last Filed: 03/07/25 22:03> Jevon Inquiry Pt receiving controlled substance: No Jevon was queried for this patient: No Vital Signs Vital Signs: 03/07/25 21:40 03/07/25 22:12 03/07/25 22:15 Temperature 97.9 F Temperature Source Oral Pulse Rate 83 Pulse Rate [Left Radial] 95 H Respiratory Rate 19 13 Blood Pressure 116/63 Blood Pressure [Right Arm] 103/62 L Blood Pressure Mean 72 Blood Pressure Mean [Right Arm] 75 Blood Pressure Source Blood Pressure Source [Right Arm] Automatic Cuff Blood Pressure Position Blood Pressure Position [Right Arm] Supine 02 Sat by Pulse Oximetry 100 100 Oxygen Delivery Method Room Air Room Air 03/07/25 22:15 03/07/25 22:20 03/07/25 22:20 Temperature Temperature Source Pulse Rate 85 86 Pulse Rate [Left Radial] Respiratory Rate 17 19 Blood Pressure 93/60 L Blood Pressure [Right Arm] Blood Pressure Mean 67 Blood Pressure Mean [Right Arm] Blood Pressure Source Blood Pressure Source [Right Arm] Blood Pressure Position Blood Pressure Position [Right Arm] 02 Sat by Pulse Oximetry 99 95 Oxygen Delivery Method Room Air Room Air 03/07/25 23:10 03/07/25 23:10 03/07/25 23:15 Temperature Temperature Source Pulse Rate 85 Pulse Rate [Left Radial] Respiratory Rate 26 H 30 H Blood Pressure 104/53 L Blood Pressure [Right Arm] Blood Pressure Mean 79 Blood Pressure Mean [Right Arm] Blood Pressure Source Blood Pressure Source [Right Arm] Blood Pressure Position Blood Pressure Position [Right Arm] 02 Sat by Pulse Oximetry 99 Oxygen Delivery Method Room Air 03/07/25 23:15 03/07/25 23:21 03/07/25 23:21 Temperature Temperature Source Pulse Rate 80 Pulse Rate [Left Radial] Respiratory Rate 26 H Blood Pressure 105/52 L 102/61 L Blood Pressure [Right Arm] Blood Pressure Mean 72 75 Blood Pressure Mean [Right Arm] Blood Pressure Source Blood Pressure Source [Right Arm] Blood Pressure Position Blood Pressure Position [Right Arm] 02 Sat by Pulse Oximetry 97 Oxygen Delivery Method Room Air 03/07/25 23:25 03/07/25 23:25 03/07/25 23:30 Temperature Temperature Source Pulse Rate 74 82 Pulse Rate [Left Radial] Respiratory Rate 28 H 26 H Blood Pressure 103/57 L Blood Pressure [Right Arm] Blood Pressure Mean 69 Blood Pressure Mean [Right Arm] Blood Pressure Source Blood Pressure Source [Right Arm] Blood Pressure Position Blood Pressure Position [Right Arm] 02 Sat by Pulse Oximetry 97 99 Oxygen Delivery Method Room Air Room Air 03/07/25 23:30 03/07/25 23:35 03/07/25 23:35 Temperature Temperature Source Pulse Rate 81 Pulse Rate [Left Radial] Respiratory Rate 23 Blood Pressure 110/57 L 104/53 L Blood Pressure [Right Arm] Blood Pressure Mean 74 76 Blood Pressure Mean [Right Arm] Blood Pressure Source Blood Pressure Source [Right Arm] Blood Pressure Position Blood Pressure Position [Right Arm] 02 Sat by Pulse Oximetry 98 Oxygen Delivery Method Room Air 03/07/25 23:40 03/07/25 23:40 03/07/25 23:45 Temperature Temperature Source Pulse Rate 88 74 Pulse Rate [Left Radial] Respiratory Rate 18 19 Blood Pressure 112/57 L Blood Pressure [Right Arm] Blood Pressure Mean 73 Blood Pressure Mean [Right Arm] Blood Pressure Source Blood Pressure Source [Right Arm] Blood Pressure Position Blood Pressure Position [Right Arm] 02 Sat by Pulse Oximetry 100 Oxygen Delivery Method Room Air 03/07/25 23:46 03/07/25 23:46 03/07/25 23:50 Temperature Temperature Source Pulse Rate 79 Pulse Rate [Left Radial] Respiratory Rate 17 Blood Pressure 114/56 L 96/60 L Blood Pressure [Right Arm] Blood Pressure Mean 78 78 Blood Pressure Mean [Right Arm] Blood Pressure Source Blood Pressure Source [Right Arm] Blood Pressure Position Blood Pressure Position [Right Arm] 02 Sat by Pulse Oximetry 100 Oxygen Delivery Method Room Air 03/07/25 23:50 03/07/25 23:52 03/07/25 23:52 Temperature Temperature Source Pulse Rate 85 85 Pulse Rate [Left Radial] Respiratory Rate 14 22 Blood Pressure 97/58 L Blood Pressure [Right Arm] Blood Pressure Mean 78 Blood Pressure Mean [Right Arm] Blood Pressure Source Blood Pressure Source [Right Arm] Blood Pressure Position Blood Pressure Position [Right Arm] 02 Sat by Pulse Oximetry 100 100 Oxygen Delivery Method Room Air Room Air 03/07/25 23:55 03/07/25 23:55 03/08/25 00:00 Temperature Temperature Source Pulse Rate 96 H Pulse Rate [Left Radial] Respiratory Rate 19 Blood Pressure 106/56 L 111/54 L Blood Pressure [Right Arm] Blood Pressure Mean 87 73 Blood Pressure Mean [Right Arm] Blood Pressure Source Blood Pressure Source [Right Arm] Blood Pressure Position Blood Pressure Position [Right Arm] 02 Sat by Pulse Oximetry 92 L Oxygen Delivery Method Room Air 03/08/25 00:00 03/08/25 00:05 03/08/25 00:05 Temperature Temperature Source Pulse Rate 81 81 Pulse Rate [Left Radial] Respiratory Rate 17 15 Blood Pressure 121/56 L Blood Pressure [Right Arm] Blood Pressure Mean 82 Blood Pressure Mean [Right Arm] Blood Pressure Source Blood Pressure Source [Right Arm] Blood Pressure Position Blood Pressure Position [Right Arm] 02 Sat by Pulse Oximetry 100 99 Oxygen Delivery Method Room Air Room Air 03/08/25 00:10 03/08/25 00:10 03/08/25 00:15 Temperature Temperature Source Pulse Rate 80 Pulse Rate [Left Radial] Respiratory Rate 20 Blood Pressure 116/63 108/58 L Blood Pressure [Right Arm] Blood Pressure Mean 88 78 Blood Pressure Mean [Right Arm] Blood Pressure Source Blood Pressure Source [Right Arm] Blood Pressure Position Blood Pressure Position [Right Arm] 02 Sat by Pulse Oximetry 100 Oxygen Delivery Method Room Air 03/08/25 00:15 03/08/25 00:22 03/08/25 00:22 Temperature Temperature Source Pulse Rate 78 Pulse Rate [Left Radial] Respiratory Rate 15 19 Blood Pressure 114/67 Blood Pressure [Right Arm] Blood Pressure Mean 76 Blood Pressure Mean [Right Arm] Blood Pressure Source Blood Pressure Source [Right Arm] Blood Pressure Position Blood Pressure Position [Right Arm] 02 Sat by Pulse Oximetry 99 Oxygen Delivery Method Room Air 03/08/25 00:25 03/08/25 00:25 03/08/25 00:30 Temperature Temperature Source Pulse Rate 80 83 Pulse Rate [Left Radial] Respiratory Rate 23 20 Blood Pressure 125/61 Blood Pressure [Right Arm] Blood Pressure Mean 68 Blood Pressure Mean [Right Arm] Blood Pressure Source Blood Pressure Source [Right Arm] Blood Pressure Position Blood Pressure Position [Right Arm] 02 Sat by Pulse Oximetry 98 96 Oxygen Delivery Method Room Air Room Air 03/08/25 00:30 03/08/25 00:35 03/08/25 00:35 Temperature Temperature Source Pulse Rate 86 Pulse Rate [Left Radial] Respiratory Rate 17 Blood Pressure 115/62 124/61 Blood Pressure [Right Arm] Blood Pressure Mean 79 88 Blood Pressure Mean [Right Arm] Blood Pressure Source Blood Pressure Source [Right Arm] Blood Pressure Position Blood Pressure Position [Right Arm] 02 Sat by Pulse Oximetry 98 Oxygen Delivery Method Room Air 03/08/25 00:40 03/08/25 00:40 03/08/25 00:45 Temperature Temperature Source Pulse Rate 82 84 Pulse Rate [Left Radial] Respiratory Rate 17 20 Blood Pressure 126/65 Blood Pressure [Right Arm] Blood Pressure Mean 91 Blood Pressure Mean [Right Arm] Blood Pressure Source Blood Pressure Source [Right Arm] Blood Pressure Position Blood Pressure Position [Right Arm] 02 Sat by Pulse Oximetry 98 92 L Oxygen Delivery Method Room Air Room Air 03/08/25 00:45 03/08/25 00:50 03/08/25 00:50 Temperature Temperature Source Pulse Rate 85 Pulse Rate [Left Radial] Respiratory Rate 18 Blood Pressure 119/58 L 123/65 Blood Pressure [Right Arm] Blood Pressure Mean 92 84 Blood Pressure Mean [Right Arm] Blood Pressure Source Blood Pressure Source [Right Arm] Blood Pressure Position Blood Pressure Position [Right Arm] 02 Sat by Pulse Oximetry 98 Oxygen Delivery Method Room Air 03/08/25 00:55 03/08/25 00:55 03/08/25 01:00 Temperature Temperature Source Pulse Rate 85 Pulse Rate [Left Radial] Respiratory Rate 22 Blood Pressure 114/69 117/62 Blood Pressure [Right Arm] Blood Pressure Mean 84 83 Blood Pressure Mean [Right Arm] Blood Pressure Source Blood Pressure Source [Right Arm] Blood Pressure Position Blood Pressure Position [Right Arm] 02 Sat by Pulse Oximetry 91 L Oxygen Delivery Method Room Air 03/08/25 01:00 03/08/25 01:20 Temperature 97.9 F Temperature Source Oral Pulse Rate 82 76 Pulse Rate [Left Radial] Respiratory Rate 19 19 Blood Pressure 134/63 Blood Pressure [Right Arm] Blood Pressure Mean Blood Pressure Mean [Right Arm] Blood Pressure Source Automatic Cuff Blood Pressure Source [Right Arm] Blood Pressure Position Supine Blood Pressure Position [Right Arm] 02 Sat by Pulse Oximetry 100 Oxygen Delivery Method Room Air Room Air Lab Data Labs: Lab Results 03/07/25 21:57: WBC 2.8 L, RBC 4.26 L, Hgb 8.9 L, Hct 28.9 L, MCV 67.8 L, MCH 20.9 L, MCHC 30.8 L, RDW 20.7 H, Plt Count 220, MPV 10.1, Neut % (Auto) 68.2, Lymph % (Auto) 12.9, [place] % (Auto) 16.4 H, Eos % (Auto) 0.7, Baso % (Auto) 0.7, Neut # (Auto) 1.9, Lymph # (Auto) 0.4 L, [place] # (Auto) 0.5, Eos # (Auto) 0.0, Baso # (Auto) 0.0, Total Counted 100, Neutrophils % (Manual) 77 H, Lymphocytes % (Manual) 13, Monocytes % (Manual) 8, Eosinophils % (Manual) 2, Platelet Estimate Normal, Giant Platelets 1+, Polychromasia 1+, Poikilocytosis 1+, Basophilic Stippling 1+, Anisocytosis 1+, Microcytosis 1+, Macrocytosis 1+, Target Cells 1+, Tear Drop Cells 1+, Ovalocytes 1+, [place] Cells 1+, Elliptocytes 1+, APTT 26.4, Sodium 136, Potassium 3.1 L, Chloride 102, Carbon Dioxide 17 L, Anion Gap 20.1 H, BUN 19, Creatinine 1.80 H D, Estimated Creat Clear 46, Estimated GFR 37 L, Est GFR ( Amer) 45 L D, Glucose 218 H, Calcium 8.6, Magnesium 1.8, Total Bilirubin 1.2, AST 54, ALT 40, Alkaline Phosphatase 93, Troponin I 0.10 H, NT-Pro-B Natriuret Pep 464 H, Total Protein 7.5, Albumin 4.2, Globulin 3.3 H, Albumin/Globulin Ratio 1.3, Lipase 68, HIV Ag/Ab Combo Qual Negative 03/07/25 21:59: VBG pH 7.42 H, VBG pCO2 29.4 L, VBG pO2 29.2, VBG HCO3 18.6 L, V BG Total CO2 19.5 L, VBG O2 Saturation 59.4, VBG Base Excess -6.0 L, VBG Lactic Acid 4.4 H 03/07/25 21:57 03/07/25 21:57 Response Orders (Tests/Meds): ED MEDICATIONS Generic Name Dose Route Start Last Admin Trade Name Freq PRN Reason Stop Dose Admin Acetaminophen 650 mg 03/08/25 00:16 Acetaminophen 325mg Tab PO 04/07/25 00:15 Q4HP PRN Fever or Mild Pain (1-3) Potassium Chloride/Water 100 mls @ 100 mls/hr 03/07/25 23:57 03/08/25 01:11 Potassium Chloride 10meq/100ml Ivpb IV 03/08/25 01:56 100 mls/hr Q1H SWATHI Administration Sodium Chloride 10 ml 03/07/25 22:53 03/07/25 22:55 Sodium Chloride 0.9% 10ml Syr (Rad Only) IV 04/06/25 22:52 10 ml NEEDED PRN Administration Maintain IV Site Discontinued Medications Generic Name Dose Route Start Last Admin Trade Name Freq PRN Reason Stop Dose Admin Sodium Chloride 1,000 mls @ 999 mls/hr 03/07/25 23:52 03/08/25 01:12 Sod Chlor 0.9% 1000ml Bag IV 03/08/25 00:52 Infused .Q1H1M ONE Infusion Iopamidol 150 ml 03/07/25 22:53 03/07/25 22:55 Iopamidol-370 (76%);100ml Bottle IV 03/07/25 22:54 150 ml ONCE ONE Administration Sodium Chloride 80 ml 03/07/25 22:53 03/07/25 22:55 0.9 % Sodium Chloride 50 Ml Vial IV 03/07/25 22:54 80 ml ONCE ONE Administration ORDERS Category Date Time Status CT abdomen pelvis w con Stat Cat Scan 03/07/25 21:[address] angio head Stat Cat Scan 03/07/25 21:[address] angio neck Stat Cat Scan 03/07/25 21:[address] head/brain wo con Stat Cat Scan 03/07/25 21:39 Completed CTA Chest [CT angio chest PE protocol] Stat Cat Scan 03/07/25 21:39 Completed BNP [NT Pro Brain Natriuretic Pep.] Stat Lab 03/07/25 21:57 Completed CBC [Complete Blood Count Auto Diff] Stat Lab 03/07/25 21:57 Completed Complete Blood Count Auto Diff AMLAB Lab 03/08/25 06:00 Ordered Comprehensive Metabolic Panel AMLAB Lab 03/08/25 06:00 Ordered Comprehensive Metabolic Panel Stat Lab 03/07/25 21:57 Completed HIV Combo Stat Lab 03/07/25 21:57 Completed Lipase Stat Lab 03/07/25 21:57 Completed Magnesium Stat Lab 03/07/25 21:57 Completed PTT [Activated Partial Thrombo Time] Stat Lab 03/07/25 21:57 Completed Rapid PCR Covid and Flu A/B Stat Lab 03/07/25 21:41 Ordered Trop I [Troponin I] Stat Lab 03/07/25 21:57 Completed Troponin I Q3H Lab 03/08/25 01:23 Received Troponin I Q3H Lab 03/08/25 03:45 Ordered VBG [Venous Blood Gas] Stat RT 03/07/25 21:59 Completed MDM Narrative Medical Decision Narrative: patient is a 74-year-old male presenting to the emergency department for evaluation of syncopal episodes, falling episodes, shaking, vomiting, weakness. Patient is hemodynamically stable and nontoxic-appearing upon arrival, afebrile. Differential diagnosis includes ACS, CAD, PE, SC, flutter, fifth, syncope, among others. Workup will be conducted with hematologic labs, specific imaging, provocative tests. Initial inventions include crystalloid bolus, analgesics, antibiotics. <Caron Burt, DO - Last Filed: 03/08/25 01:37> Medical Records Medical records reviewed: Yes I reviewed the patient's medical records. Vital Signs Vital Signs: 03/07/25 21:40 03/07/25 22:12 03/07/25 22:15 Temperature 97.9 F Temperature Source Oral Pulse Rate 83 Pulse Rate [Left Radial] 95 H Respiratory Rate 19 13 Blood Pressure 116/63 Blood Pressure [Right Arm] 103/62 L Blood Pressure Mean 72 Blood Pressure Mean [Right Arm] 75 Blood Pressure Source Blood Pressure Source [Right Arm] Automatic Cuff Blood Pressure Position Blood Pressure Position [Right Arm] Supine 02 Sat by Pulse Oximetry 100 100 Oxygen Delivery Method Room Air Room Air 03/07/25 22:15 03/07/25 22:20 03/07/25 22:20 Temperature Temperature Source Pulse Rate 85 86 Pulse Rate [Left Radial] Respiratory Rate 17 19 Blood Pressure 93/60 L Blood Pressure [Right Arm] Blood Pressure Mean 67 Blood Pressure Mean [Right Arm] Blood Pressure Source Blood Pressure Source [Right Arm] Blood Pressure Position Blood Pressure Position [Right Arm] 02 Sat by Pulse Oximetry 99 95 Oxygen Delivery Method Room Air Room Air 03/07/25 23:10 03/07/25 23:10 03/07/25 23:15 Temperature Temperature Source Pulse Rate 85 Pulse Rate [Left Radial] Respiratory Rate 26 H 30 H Blood Pressure 104/53 L Blood Pressure [Right Arm] Blood Pressure Mean 79 Blood Pressure Mean [Right Arm] Blood Pressure Source Blood Pressure Source [Right Arm] Blood Pressure Position Blood Pressure Position [Right Arm] 02 Sat by Pulse Oximetry 99 Oxygen Delivery Method Room Air 03/07/25 23:15 03/07/25 23:21 03/07/25 23:21 Temperature Temperature Source Pulse Rate 80 Pulse Rate [Left Radial] Respiratory Rate 26 H Blood Pressure 105/52 L 102/61 L Blood Pressure [Right Arm] Blood Pressure Mean 72 75 Blood Pressure Mean [Right Arm] Blood Pressure Source Blood Pressure Source [Right Arm] Blood Pressure Position Blood Pressure Position [Right Arm] 02 Sat by Pulse Oximetry 97 Oxygen Delivery Method Room Air 03/07/25 23:25 03/07/25 23:25 03/07/25 23:30 Temperature Temperature Source Pulse Rate 74 82 Pulse Rate [Left Radial] Respiratory Rate 28 H 26 H Blood Pressure 103/57 L Blood Pressure [Right Arm] Blood Pressure Mean 69 Blood Pressure Mean [Right Arm] Blood Pressure Source Blood Pressure Source [Right Arm] Blood Pressure Position Blood Pressure Position [Right Arm] 02 Sat by Pulse Oximetry 97 99 Oxygen Delivery Method Room Air Room Air 03/07/25 23:30 03/07/25 23:35 03/07/25 23:35 Temperature Temperature Source Pulse Rate 81 Pulse Rate [Left Radial] Respiratory Rate 23 Blood Pressure 110/57 L 104/53 L Blood Pressure [Right Arm] Blood Pressure Mean 74 76 Blood Pressure Mean [Right Arm] Blood Pressure Source Blood Pressure Source [Right Arm] Blood Pressure Position Blood Pressure Position [Right Arm] 02 Sat by Pulse Oximetry 98 Oxygen Delivery Method Room Air 03/07/25 23:40 03/07/25 23:40 03/07/25 23:45 Temperature Temperature Source Pulse Rate 88 74 Pulse Rate [Left Radial] Respiratory Rate 18 19 Blood Pressure 112/57 L Blood Pressure [Right Arm] Blood Pressure Mean 73 Blood Pressure Mean [Right Arm] Blood Pressure Source Blood Pressure Source [Right Arm] Blood Pressure Position Blood Pressure Position [Right Arm] 02 Sat by Pulse Oximetry 100 Oxygen Delivery Method Room Air 03/07/25 23:46 03/07/25 23:46 03/07/25 23:50 Temperature Temperature Source Pulse Rate 79 Pulse Rate [Left Radial] Respiratory Rate 17 Blood Pressure 114/56 L 96/60 L Blood Pressure [Right Arm] Blood Pressure Mean 78 78 Blood Pressure Mean [Right Arm] Blood Pressure Source Blood Pressure Source [Right Arm] Blood Pressure Position Blood Pressure Position [Right Arm] 02 Sat by Pulse Oximetry 100 Oxygen Delivery Method Room Air 03/07/25 23:50 03/07/25 23:52 03/07/25 23:52 Temperature Temperature Source Pulse Rate 85 85 Pulse Rate [Left Radial] Respiratory Rate 14 22 Blood Pressure 97/58 L Blood Pressure [Right Arm] Blood Pressure Mean 78 Blood Pressure Mean [Right Arm] Blood Pressure Source Blood Pressure Source [Right Arm] Blood Pressure Position Blood Pressure Position [Right Arm] 02 Sat by Pulse Oximetry 100 100 Oxygen Delivery Method Room Air Room Air 03/07/25 23:55 03/07/25 23:55 03/08/25 00:00 Temperature Temperature Source Pulse Rate 96 H Pulse Rate [Left Radial] Respiratory Rate 19 Blood Pressure 106/56 L 111/54 L Blood Pressure [Right Arm] Blood Pressure Mean 87 73 Blood Pressure Mean [Right Arm] Blood Pressure Source Blood Pressure Source [Right Arm] Blood Pressure Position Blood Pressure Position [Right Arm] 02 Sat by Pulse Oximetry 92 L Oxygen Delivery Method Room Air 03/08/25 00:00 03/08/25 00:05 03/08/25 00:05 Temperature Temperature Source Pulse Rate 81 81 Pulse Rate [Left Radial] Respiratory Rate 17 15 Blood Pressure 121/56 L Blood Pressure [Right Arm] Blood Pressure Mean 82 Blood Pressure Mean [Right Arm] Blood Pressure Source Blood Pressure Source [Right Arm] Blood Pressure Position Blood Pressure Position [Right Arm] 02 Sat by Pulse Oximetry 100 99 Oxygen Delivery Method Room Air Room Air 03/08/25 00:10 03/08/25 00:10 03/08/25 00:15 Temperature Temperature Source Pulse Rate 80 Pulse Rate [Left Radial] Respiratory Rate 20 Blood Pressure 116/63 108/58 L Blood Pressure [Right Arm] Blood Pressure Mean 88 78 Blood Pressure Mean [Right Arm] Blood Pressure Source Blood Pressure Source [Right Arm] Blood Pressure Position Blood Pressure Position [Right Arm] 02 Sat by Pulse Oximetry 100 Oxygen Delivery Method Room Air 03/08/25 00:15 03/08/25 00:22 03/08/25 00:22 Temperature Temperature Source Pulse Rate 78 Pulse Rate [Left Radial] Respiratory Rate 15 19 Blood Pressure 114/67 Blood Pressure [Right Arm] Blood Pressure Mean 76 Blood Pressure Mean [Right Arm] Blood Pressure Source Blood Pressure Source [Right Arm] Blood Pressure Position Blood Pressure Position [Right Arm] 02 Sat by Pulse Oximetry 99 Oxygen Delivery Method Room Air 03/08/25 00:25 03/08/25 00:25 03/08/25 00:30 Temperature Temperature Source Pulse Rate 80 83 Pulse Rate [Left Radial] Respiratory Rate 23 20 Blood Pressure 125/61 Blood Pressure [Right Arm] Blood Pressure Mean 68 Blood Pressure Mean [Right Arm] Blood Pressure Source Blood Pressure Source [Right Arm] Blood Pressure Position Blood Pressure Position [Right Arm] 02 Sat by Pulse Oximetry 98 96 Oxygen Delivery Method Room Air Room Air 03/08/25 00:30 03/08/25 00:35 03/08/25 00:35 Temperature Temperature Source Pulse Rate 86 Pulse Rate [Left Radial] Respiratory Rate 17 Blood Pressure 115/62 124/61 Blood Pressure [Right Arm] Blood Pressure Mean 79 88 Blood Pressure Mean [Right Arm] Blood Pressure Source Blood Pressure Source [Right Arm] Blood Pressure Position Blood Pressure Position [Right Arm] 02 Sat by Pulse Oximetry 98 Oxygen Delivery Method Room Air 03/08/25 00:40 03/08/25 00:40 03/08/25 00:45 Temperature Temperature Source Pulse Rate 82 84 Pulse Rate [Left Radial] Respiratory Rate 17 20 Blood Pressure 126/65 Blood Pressure [Right Arm] Blood Pressure Mean 91 Blood Pressure Mean [Right Arm] Blood Pressure Source Blood Pressure Source [Right Arm] Blood Pressure Position Blood Pressure Position [Right Arm] 02 Sat by Pulse Oximetry 98 92 L Oxygen Delivery Method Room Air Room Air 03/08/25 00:45 03/08/25 00:50 03/08/25 00:50 Temperature Temperature Source Pulse Rate 85 Pulse Rate [Left Radial] Respiratory Rate 18 Blood Pressure 119/58 L 123/65 Blood Pressure [Right Arm] Blood Pressure Mean 92 84 Blood Pressure Mean [Right Arm] Blood Pressure Source Blood Pressure Source [Right Arm] Blood Pressure Position Blood Pressure Position [Right Arm] 02 Sat by Pulse Oximetry 98 Oxygen Delivery Method Room Air 03/08/25 00:55 03/08/25 00:55 03/08/25 01:00 Temperature Temperature Source Pulse Rate 85 Pulse Rate [Left Radial] Respiratory Rate 22 Blood Pressure 114/69 117/62 Blood Pressure [Right Arm] Blood Pressure Mean 84 83 Blood Pressure Mean [Right Arm] Blood Pressure Source Blood Pressure Source [Right Arm] Blood Pressure Position Blood Pressure Position [Right Arm] 02 Sat by Pulse Oximetry 91 L Oxygen Delivery Method Room Air 03/08/25 01:00 03/08/25 01:20 Temperature 97.9 F Temperature Source Oral Pulse Rate 82 76 Pulse Rate [Left Radial] Respiratory Rate 19 19 Blood Pressure 134/63 Blood Pressure [Right Arm] Blood Pressure Mean Blood Pressure Mean [Right Arm] Blood Pressure Source Automatic Cuff Blood Pressure Source [Right Arm] Blood Pressure Position Supine Blood Pressure Position [Right Arm] 02 Sat by Pulse Oximetry 100 Oxygen Delivery Method Room Air Room Air Lab Data Lab results reviewed: Yes I reviewed the patient's lab results. Labs: Lab Results 03/07/25 21:57: WBC 2.8 L, RBC 4.26 L, Hgb 8.9 L, Hct 28.9 L, MCV 67.8 L, MCH 20.9 L, MCHC 30.8 L, RDW 20.7 H, Plt Count 220, MPV 10.1, Neut % (Auto) 68.2, Lymph % (Auto) 12.9, [place] % (Auto) 16.4 H, Eos % (Auto) 0.7, Baso % (Auto) 0.7, Neut # (Auto) 1.9, Lymph # (Auto) 0.4 L, [place] # (Auto) 0.5, Eos # (Auto) 0.0, Baso # (Auto) 0.0, Total Counted 100, Neutrophils % (Manual) 77 H, Lymphocytes % (Manual) 13, Monocytes % (Manual) 8, Eosinophils % (Manual) 2, Platelet Estimate Normal, Giant Platelets 1+, Polychromasia 1+, Poikilocytosis 1+, Basophilic Stippling 1+, Anisocytosis 1+, Microcytosis 1+, Macrocytosis 1+, Target Cells 1+, Tear Drop Cells 1+, Ovalocytes 1+, Misha Cells 1+, Elliptocytes 1+, APTT 26.4, Sodium 136, Potassium 3.1 L, Chloride 102, Carbon Dioxide 17 L, Anion Gap 20.1 H, BUN 19, Creatinine 1.80 H D, Estimated Creat Clear 46, Estimated GFR 37 L, Est GFR ( Amer) 45 L D, Glucose 218 H, Calcium 8.6, Magnesium 1.8, Total Bilirubin 1.2, AST 54, ALT 40, Alkaline Phosphatase 93, Troponin I 0.10 H, NT-Pro-B Natriuret Pep 464 H, Total Protein 7.5, Albumin 4.2, Globulin 3.3 H, Albumin/Globulin Ratio 1.3, Lipase 68, HIV Ag/Ab Combo Qual Negative 03/07/25 21:59: VBG pH 7.42 H, VBG pCO2 29.4 L, VBG pO2 29.2, VBG HCO3 18.6 L, V BG Total CO2 19.5 L, VBG O2 Saturation 59.4, VBG Base Excess -6.0 L, VBG Lactic Acid 4.4 H Response Orders (Tests/Meds): ED MEDICATIONS Generic Name Dose Route Start Last Admin Trade Name Maximoq PRN Reason Stop Dose Admin Acetaminophen 650 mg 03/08/25 00:16 Acetaminophen 325mg Tab PO 04/07/25 00:15 Q4HP PRN Fever or Mild Pain (1-3) Potassium Chloride/Water 100 mls @ 100 mls/hr 03/07/25 23:57 03/08/25 01:11 Potassium Chloride 10meq/100ml Ivpb IV 03/08/25 01:56 100 mls/hr Q1H SWATHI Administration Sodium Chloride 10 ml 03/07/25 22:53 03/07/25 22:55 Sodium Chloride 0.9% 10ml Syr (Rad Only) IV 04/06/25 22:52 10 ml NEEDED PRN Administration Maintain IV Site Discontinued Medications Generic Name Dose Route Start Last Admin Trade Name Ronni PRN Reason Stop Dose Admin Sodium Chloride 1,000 mls @ 999 mls/hr 03/07/25 23:52 03/08/25 01:12 Sod Chlor 0.9% 1000ml Bag IV 03/08/25 00:52 Infused .Q1H1M ONE Infusion Iopamidol 150 ml 03/07/25 22:53 03/07/25 22:55 Iopamidol-370 (76%);100ml Bottle IV 03/07/25 22:54 150 ml ONCE ONE Administration Sodium Chloride 80 ml 03/07/25 22:53 03/07/25 22:55 0.9 % Sodium Chloride 50 Ml Vial IV 03/07/25 22:54 80 ml ONCE ONE Administration ORDERS Category Date Time Status CT abdomen pelvis w con Stat Cat Scan 03/07/25 21:[address] angio head Stat Cat Scan 03/07/25 21:[address] angio neck Stat Cat Scan 03/07/25 21:[address] head/brain wo con Stat Cat Scan 03/07/25 21:39 Completed CTA Chest [CT angio chest PE protocol] Stat Cat Scan 03/07/25 21:39 Completed BNP [NT Pro Brain Natriuretic Pep.] Stat Lab 03/07/25 21:57 Completed CBC [Complete Blood Count Auto Diff] Stat Lab 03/07/25 21:57 Completed Complete Blood Count Auto Diff AMLAB Lab 03/08/25 06:00 Ordered Comprehensive Metabolic Panel AMLAB Lab 03/08/25 06:00 Ordered Comprehensive Metabolic Panel Stat Lab 03/07/25 21:57 Completed HIV Combo Stat Lab 03/07/25 21:57 Completed Lipase Stat Lab 03/07/25 21:57 Completed Magnesium Stat Lab 03/07/25 21:57 Completed PTT [Activated Partial Thrombo Time] Stat Lab 03/07/25 21:57 Completed Rapid PCR Covid and Flu A/B Stat Lab 03/07/25 21:41 Ordered Trop I [Troponin I] Stat Lab 03/07/25 21:57 Completed Troponin I Q3H Lab 03/08/25 01:23 Received Troponin I Q3H Lab 03/08/25 03:45 Ordered VBG [Venous Blood Gas] Stat RT 03/07/25 21:59 Completed MDM Narrative Medical Decision Narrative: patient is a 74-year-old male presenting to the emergency department for evaluation of syncopal episodes, falling episodes, shaking, vomiting, weakness. Patient is hemodynamically stable and nontoxic-appearing upon arrival, afebrile. Differential diagnosis includes ACS, CAD, PE, SC, flutter, fifth, syncope, among others. Workup will be conducted with hematologic labs, specific imaging, provocative tests. Initial inventions include crystalloid bolus, analgesics, antibiotics. Caron Burt DO I assumed care of the patient at 2200. Patient's labs were reviewed and interpreted by myself: CBC she had to have a mild leukosuppression with a white count of 2.8, hemoglobin was stable. CMP was unremarkable. VBG with mildly elevated lactate at 4.4, mildly alkalotic at 7.42. CMP with hypokalemia of 3.1, mildly elevated creatinine at 1.8 with a baseline of 1.3. Initial troponin 0.10. BNP mildly elevated at 464. CT head CTA head and neck CT chest and CT abdomen were obtained which showed no acute pathology. I suspect given patient's low blood pressure initially here in the emergency department, that patient might be volume down with his recent increase in Lasix. Patient was given a liter of IV fluids with increased blood pressure. Given that patient had 4 presyncopal episodes today, I feel that patient warrants admission for further workup, orthostatics. I discussed the case with hospitalist and patient was ultimately admitted to their service for further evaluation workup.
--- NOTE | 2025-03-07 21:53 | CT_ITS ---
PROCEDURE INFORMATION: Exam: CTA Head Without And With Contrast, Arteriography Exam date and time: 03/07/2025 10:55 PM Age: 74 years old Clinical indication: Syncope and collapse TECHNIQUE: Imaging protocol: Computed tomographic angiography of the head without and with contrast. Exam focused on the arteries. 3D rendering (Not supervised by radiologist): MIP and/or 3D reconstructed images were created by the technologist. Radiation optimization: All CT scans at this facility use at least one of these dose optimization techniques: automated exposure control; mA and/or kV adjustment per patient size (includes targeted exams where dose is matched to clinical indication); or iterative reconstruction. Contrast material: ISOVUE; Contrast volume: 80 ml; Contrast route: INTRAVENOUS (IV); COMPARISON: CT HEAD/BRAIN WO CON 03/07/2025 10:48 PM FINDINGS: ANTERIOR CIRCULATION: Right internal carotid artery: Intracranial segment is patent with no significant stenosis or occlusion. No aneurysm. Right middle cerebral artery: No occlusion or significant stenosis. No aneurysm. Right anterior cerebral artery: No occlusion or significant stenosis. No aneurysm. Left internal carotid artery: Intracranial segment is patent with no significant stenosis. No aneurysm. Left middle cerebral artery: No occlusion or significant stenosis. No aneurysm. Left anterior cerebral artery: Hypoplastic left A1 segment. POSTERIOR CIRCULATION: Right vertebral artery: No occlusion or significant stenosis. No aneurysm. Left vertebral artery: No occlusion or significant stenosis. No aneurysm. Basilar artery: No occlusion or significant stenosis. No aneurysm. Right posterior cerebral artery: No occlusion or significant stenosis. No aneurysm. Left posterior cerebral artery: No occlusion or significant stenosis. No aneurysm. HEAD: Brain: No evidence for intracranial hemorrhage, mass lesions or acute stroke. Intracranial vascular calcifications. Mild small vessel ischemic change in the periventricular white matter. Cerebral ventricles: Normal. No ventriculomegaly. Bones: Unremarkable. No acute fracture. Paranasal sinuses: Visualized sinuses are normal. No fluid levels. Mastoid air cells: Visualized mastoids are normal. No mastoid effusion. Soft tissues: Unremarkable. Other findings: No evidence for large vessel occlusion. Mild generalized atrophy. IMPRESSION: 1. No evidence for large vessel occlusion. 2. Hypoplastic left A1 segment. 3. No evidence for intracranial hemorrhage, mass lesions or acute stroke. 4. Intracranial vascular calcifications. 5. Mild generalized atrophy. 6. Mild small vessel ischemic change in the periventricular white matter.
--- NOTE | 2025-03-07 21:53 | CT_ITS ---
PROCEDURE INFORMATION: Exam: CTA Neck Without And With Contrast Exam date and time: 03/07/2025 10:55 PM Age: 74 years old Clinical indication: Syncope and collapse TECHNIQUE: Imaging protocol: Computed tomographic angiography of the neck without and with contrast. Exam focused on the cervical segments of the vasculature. 3D rendering (Not supervised by radiologist): MIP and/or 3D reconstructed images were created by the technologist. Radiation optimization: All CT scans at this facility use at least one of these dose optimization techniques: automated exposure control; mA and/or kV adjustment per patient size (includes targeted exams where dose is matched to clinical indication); or iterative reconstruction. Contrast material: ISOVUE; Contrast volume: 80 ml; Contrast route: INTRAVENOUS (IV); COMPARISON: CT ANGIO NECK 08/26/2024 9:58 AM FINDINGS: Right common carotid artery: No stenosis. No dissection or occlusion. Right internal carotid artery: No stenosis of the extracranial segment. No dissection or occlusion. Right external carotid artery: No occlusion or stenosis of the origin. Left common carotid artery: No stenosis. No dissection or occlusion. Left internal carotid artery: No stenosis of the extracranial segment. No dissection or occlusion. Left external carotid artery: No occlusion or stenosis of the origin. Right vertebral artery: No stenosis. No dissection or occlusion. Left vertebral artery: No stenosis. No dissection or occlusion. Soft tissues: Normal. No significant soft tissue swelling. Bones/joints: Moderate dorsal kyphosis. Multilevel degenerative disc disease predominantly at C4-C5, and C5-C6 levels. Other findings: Calcific plaque at the carotid bifurcations without hemodynamically significant stenosis. IMPRESSION: No evidence for occlusion, stenosis or dissection of the cervical vessels. REFERENCES: NASCET CRITERIA. The degree of stenosis in the cervical segment of the internal carotid artery is based on NASCET criteria. Normal is no stenosis. Mild is less than 50% stenosis. Moderate is 50-69% stenosis. Severe is 70% to 99% stenosis. Total occlusion is no detectable patent lumen.
--- NOTE | 2025-03-07 21:59 | CT_ITS ---
PROCEDURE INFORMATION: Exam: CT Abdomen And Pelvis With Contrast Exam date and time: 03/07/2025 10:58 PM Age: 74 years old Clinical indication: Vomiting TECHNIQUE: Imaging protocol: Computed tomography of the abdomen and pelvis with contrast. 3D rendering (Not supervised by radiologist): MIP and/or 3D reconstructed images were created by the technologist. Radiation optimization: All CT scans at this facility use at least one of these dose optimization techniques: automated exposure control; mA and/or kV adjustment per patient size (includes targeted exams where dose is matched to clinical indication); or iterative reconstruction. Contrast material: ISOVUE; Contrast volume: 80 ml; Contrast route: IV; COMPARISON: CT ABDOMEN PELVIS W CON 03/04/2025 12:42 PM FINDINGS: Diaphragm: Small hiatal hernia. Liver: Hepatic steatosis. Mild hepatomegaly. Gallbladder and biliary ducts: Cholecystectomy. Pancreas: Normal. No ductal dilation. Spleen: Unremarkable. Adrenal glands: Unremarkable. Kidneys and ureters: Bilateral simple cortical renal cysts. Multiple hypodense cortical lesions bilaterally similar to prior exam likely representing hemorrhagic/proteinaceous cysts. No hydronephrosis. Stomach and bowel: Colonic diverticulosis without diverticulitis. No mechanical obstruction. No mucosal thickening. Appendix: Appendix not definitely seen. No findings suggestive of appendicitis. Intraperitoneal space: No free air. No fluid collection. Vasculature: Mild atherosclerotic changes of the aorta and its major branches. Lymph nodes: No enlarged lymph nodes. Urinary bladder: Unremarkable as visualized. Reproductive: Unremarkable as visualized. Bones/joints: No acute fracture. Moderate spondylosis. Straightening of the cervical lordosis. Moderate degenerative changes of the left hip. Soft tissues: Small bilateral fat containing inguinal hernias. IMPRESSION: No acute abdominopelvic abnormality. COMMENTS: Consistent with the [employer]'s Incidental Findings Committee white paper (J Am Danielito Radiol 2018): Any incidental renal lesion less than 1 cm or classified as too small to characterize, or any incidental cystic renal lesion characterized as simple-appearing, is likely benign. No follow-up imaging is recommended for these lesions per consensus recommendations based on imaging criteria.
--- NOTE | 2025-03-07 22:05 | ECG_ITS ---
APPROVED REPORT Exam: Resting ECG HR:86 bpm ECG Measurements Heart Rate 86 AXES AL 145 P 43 QRSd 97 QRS 57 QT 432 T 69 QTc 475 Conclusion SINUS RHYTHM WITH FREQUENT VENTRICULAR PREMATURE COMPLEXES MODERATE ST DEPRESSION [0.05+ mV ST DEPRESSION] PROLONGED QT INTERVAL ABNORMAL ECG UNCONFIRMED REPORT Electronically signed by : CRESCENCIO VALENTIN, 03/10/2025 00:19:57
[2025-03-07 22:06] LABS: VBG HCO3 18.6 mmol/L (23-30); VBG PCO2 29.4 mmol/L (35-51); VBG PH 7.42 mmol/L (7.31-7.41); VBG PO2 29.2 mmol/L (28-40)
[2025-03-07 22:08] LABS: Hematocrit 28.9 % (42.0-52.0); Hemoglobin 8.9 g/dL (14.1-18.0); Immature Granulocytes % 1.1 %; Mean Corpuscular HGB Conc 30.8 g/dL (31.8-35.4); Mean Corpuscular Hemoglobin 20.9 pg (27.0-31.2); Mean Corpuscular Volume 67.8 fl (80-94); Nucleated Red Blood Cells % 0 %; Platelet Count 220 K/mm3 (142-424); Red Blood Count 4.26 M/mm3 (4.60-6.20); Red Cell Distribution Width-SD 50.1 fL; White Blood Count 2.8 K/mm3 (4.8-10.8)
[2025-03-07 22:10] LABS: Lactate Venous 4.4 mmol/L (0.4-2.0)
[2025-03-07 22:16] LABS: Albumin Level 4.2 g/dl (3.5-5.0); Chloride 102 mmol/L (98-107)
[2025-03-07 22:17] LABS: Potassium 3.1 mmoL/L (3.5-5.1); Sodium 136 mmol/L (136-145)
[2025-03-07 22:19] LABS: Alanine Aminotransferase 40 U/L (12-78); Alkaline Phosphatase 93 U/L (38-126); Anion Gap 20.1 mEq/L (5-15); Aspartate Amino Transferase 54 U/L (17-59); Bilirubin,Total 1.2 mg/dl (0.2-1.3); Blood Urea Nitrogen 19 mg/dl (9-20); Carbon Dioxide 17 mmol/L (22.0-30.0); Creatinine Clearance Estimated 46 mL/min (50-200); Creatinine,Serum 1.80 mg/dl (0.66-1.25); Estimated Glomerular Filt Rate 37 ml/min (>60); GFR (African American) 45 ML/MIN (>60)
[2025-03-07 22:20] LABS: Albumin/Globulin Ratio 1.3 (1.1-1.8); Calcium 8.6 mg/dl (8.4-10.2); Globulin 3.3 g/dL (1.3-3.2); Glucose 218 mg/dl (74-100); Lipase 68 U/L (23-300); Magnesium 1.8 mg/dl (1.6-2.3); Total Protein,Serum 7.5 g/dl (6.3-8.2)
[2025-03-07 22:21] LABS: Activated Partial Thrombo Time 26.4 seconds (22.8-30.6)
[2025-03-07 22:31] LABS: NT Pro Brain Natriuretic Pep. 464 pg/mL (0-125)
[2025-03-07 22:33] LABS: Troponin I 0.10 ng/ml (0.00-0.034)
[2025-03-07] MEDS: IOPAMIDOL-370 (76%);100ML BOTTLE 150 ML IV (22:55)
[2025-03-07] MEDS: SODIUM CHLORIDE 0.9% 10ML SYR (RAD ONLY) 10 ML IV (22:55)
[2025-03-07] MEDS: 0.9 % SODIUM CHLORIDE 50 ML VIAL 80 ML IV (22:55)
[2025-03-07 23:17] LABS: Total Cells Counted 100
[2025-03-07 23:18] LABS: Anisocytosis 1+; Burr Cells 1+; Giant Platelets 1+; Macrocytosis 1+; Microcytosis 1+; Ovalocytes 1+; Poikilocytosis 1+; Polychromasia 1+; Target Cells 1+; Tear Drop Cells 1+
[2025-03-07 23:20] LABS: Basophilic Stippling 1+
[2025-03-08] VITALS (24 sets, daily range): BP systolic 99–142; BP diastolic 52–92; PULSE 76–108; RESP 15–23; TEMP 36.6–37; O2SAT 91–100; BMI 25.5
[2025-03-08] MEDS: 0.9 % SODIUM CHLORIDE 1000ML 1,000 ML 999 ML IV (00:06)
--- NOTE | 2025-03-08 01:03 | PC.NURSE ---
Report given to Neeru FAULKNER on [facility]
--- NOTE | 2025-03-08 01:25 | PC.NURSE ---
Poppy Yeboah RN informed me at 01:18 that the troponin lab draw due at 00:45 was not collected. Jagruti BECKFORD and Poppy BECKFORD are currently on their way to get the patient from the ER and bring him up to the second floor. Lab was paged at this time to inform them about obtaining the troponin lab draw once the patient arrives to the floor.
--- NOTE | 2025-03-08 01:30 | PC.NURSE ---
Patient arrived to [facility] via stretcher from ED at 01:29.
[2025-03-08 01:59] LABS: Troponin I 0.10 ng/ml (0.00-0.034)
[2025-03-08 02:08] LABS: Reflex Lactic Add Lactic Reflex
--- NOTE | 2025-03-08 02:15 | PC.WOUNDNOTE ---
SKIN ISSUE IMAGES Top image depicts a scabbed ulceration noted to the patient's middle toe - distal phalange - on his right foot. No drainage noted. Bottom image depicts a superficial scrape with mild bleeding noted to the patient's fifth toe - distal phalange - on his left foot. A 2x2 gauze pad and Coban wrap was removed for inspection, and it was then replaced with new dressing material after the assessment. Patient reports mild stinging pain to the little toe. Patient does have notable swelling with mild redness and diminished hair growth to his bilateral lower extremities: right lower extremity (+3), left lower extremity (+2).
[2025-03-08 02:24] LABS: Microscopic, Urine URINE MICROSCOPIC (MICROSCOPIC)
[2025-03-08 02:54] LABS: Reticulocyte % (Auto) 0.7 % (0.9-3.2)
--- NOTE | 2025-03-08 02:58 | PC.NURSE ---
patient unsure of current medications, med rec completed using external medication history.
[2025-03-08 03:00] LABS: Bilirubin,Urine Negative (Negative); Color,Urine YELLOW (Yellow); Glucose,Urine (UA) Negative (Negative); Ketones,Urine Negative (Negative); Leukocyte Esterase,Urine Negative (Negative); PH,Urine 6.0 (5.0-8.5); Protein,Urine TRACE (Negative); Specific Gravity, Urine 1.010 (1.005-1.030); Urobilinogen,Urine 0.2 EU/dl (0.2)
[2025-03-08 03:09] LABS: Squamous Epithelial Cell,Urine Occasional #/hpf (0-5)
[2025-03-08 03:17] LABS: Iron 26 ug/dL (49-181)
[2025-03-08 03:26] LABS: Total Iron Binding Capacity 338 ug/dL (261-462)
[2025-03-08 03:53] LABS: Ferritin 40.4 ng/ml (17.9-464)
[2025-03-08 04:07] LABS: Vitamin B12 925 pg/mL (239-931)
[2025-03-08 04:08] LABS: Folate 14.80 ng/mL
--- NOTE | 2025-03-08 04:51 | P.HP_ITS ---
<Statement entered by De Palacio MD - 03/08/25 18:59> Rounded on patient after nurse practitioner. Personally examined and interviewed patient. Agree with exam findings and care plan as documented. Patient more weak since discharge. Holding his diuretic as this appears to be the new medication for him. Will gradually resume heart failure meds and monitor for response. Orthostatics were positive after admission. Feels a little bit better on morning rounds. Repeat CBC, CMP, magnesium ordered for the morning. History of Present Illness *Admission Date: 03/08/25 *Reason for visit:: near syncope *History of present illness: 74-year-old male patient presents to ER after several falls throughout the day. He states that his arms and legs began to shake and then they give out and he falls. He denies loss of consciousness. Denies injuries. Does not appear to be orthostatic based on his description. He denies chest pain but does have more shortness of breath than normal for him. He has had some nausea vomiting and diarrhea. He was discharged from the hospital with oral vancomycin. Previously had had some hypokalemia that has improved slightly to 3.1. He was found to have an elevated anion gap as well as creatinine. His checked his blood pressure and his blood sugar at home when these episodes happen and both were in normal range. Underwent brachytherapy with a coronary stent 1 week ago. Was then admitted to this hospital on 03/04 and discharged on 03/06 for sepsis due to C. difficile colitis and atrial flutter. He was also treated for diastolic heart failure and an NSTEMI. New meds at discharge were amiodarone, bumetanide, potassium and oral vancomycin. On 1211 his weight was 88.45 kg and today it is 82.92 kg. [facility] Disclaimer: The information contained in this section may have been updated after the patient was seen, as this information can be updated by other users. Medical History (Updated 03/08/25 @ 05:20 by Clarisse Rojas APRN) C. difficile diarrhea Acute on chronic heart failure with preserved ejection fraction (HFpEF) NSTEMI (non-ST elevated myocardial infarction) Short of breath on exertion (HFpEF) heart failure with preserved ejection fraction GERD (gastroesophageal reflux disease) COVID URI (upper respiratory infection) Pre-ulcerative calluses Thyromegaly Eustachian tube dysfunction Bilateral tinnitus Dysphagia Throat tightness Acquired lymphedema Hematoma of left lower leg Cellulitis of lower leg Dyspnea on exertion ILD (interstitial lung disease) Left renal mass Acute nontraumatic kidney injury Hypomagnesemia Elevated brain natriuretic peptide (BNP) level Dyspnea Elevated troponin Chronic GERD Orthostatic hypotension Dizziness Atypical angina Cellulitis of right leg Vocal cord edema Ringing in right ear Chronic hoarseness Globus sensation Vertigo Diverticulitis IBS (irritable bowel syndrome) Latent tuberculosis Rheumatoid arthritis Viral gastroenteritis Laceration of face Atrial flutter Asbestos exposure Tachycardia Abnormal ECG Preoperative testing Episodic confusion Allergic rhinitis Latent tuberculosis by blood test Restrictive lung disease Left sided abdominal pain Left shoulder strain Left groin pain Claustrophobia Chronic cough Cognitive complaints Edema of both lower extremities Decreased pedal pulses Non-healing ulcer of foot Decreased ROM of right shoulder Right shoulder pain Right shoulder injury Pes planus of both feet Skin lesion Impotence Low back pain Left against medical advice Memory loss Chronic SI joint pain Radiculopathy Neuropathic pain Leg pain, posterior Kidney stone Ingrown toenail of right foot Splinter of toe of left foot Pain of left great toe Cellulitis of great toe of right foot Acute bacterial bronchitis Incurved toenail Diabetes mellitus Onychomycosis Pain in both feet Callus of foot Diabetic foot ulcer Acute febrile illness SIRS (systemic inflammatory response syndrome) Left against medical advice Lower extremity edema Epistaxis Encounter for pre-operative cardiovascular clearance Sepsis Urinary incontinence Weakness Cellulitis, leg Obesity (BMI 30-39.9) Acute delirium Cellulitis Severe sepsis SIRS (systemic inflammatory response syndrome) Physical deconditioning Bacterial pneumonia Hypokalemia Bronchitis due to COVID-19 virus Pneumonia due to COVID-19 virus COVID-19 virus infection Exposure to COVID-19 virus Viral syndrome Acute bronchitis Hematuria Kidney stone on right side Multiple renal cysts Cough Diastolic dysfunction Mental status change resolved HTN (hypertension) Dyspnea SOB (shortness of breath) HHD (hypertensive heart disease) Pre-op evaluation Microalbuminuria Enlarged prostate History of IBS Diabetes Surgical History (Updated 03/08/25 @ 00:00 by Background Darachna) History of brachytherapy History of cardiac cath History of total right knee replacement History of rotator cuff surgery History of coronary artery stent placement History of cholecystectomy Hx of total knee arthroplasty Family History Other Cancer Cerebral palsy Dementia Diabetes Social History (Updated 03/08/25 @ 02:32 by Wanda Torre RN) Smoking Status: Never smoker alcohol intake: never counseling provided: none substance use type: denies use current occupational status: employed and retired Travel in the last 8 weeks?: None household members: spouse housing: house caffeine: Yes Have you lived/traveled outside US in past 30 days?: No Contact w/someone who lives/traveled outside US past 30 days?: No Exposure to someone with infectious disease in past 14 days?: No Do you have a fever (greater than 100.4 F or 38 C)?: No Have you tested positive for COVID-19?: No Exposed to someone with COVID-19 in past 14 days?: No Do you have a sore throat?: No Do you have a cough?: No Do you have any weakness?: No Are you experiencing any nausea/vomitting?: No Do you have any diarrhea?: No Are you experiencing any unusual bleeding?: No Do you have any muscle aches/pain?: No Do you have any abdominal pain?: No Are you experiencing loss of taste or smell?: No Other Medical History Have you received the Flu Vaccine for this season: No Have you received the Pneumonia Vaccine: Yes Review of Systems Constitutional Constitutional: Denies body ache(s), Denies chills, Denies fever(s) and Reports weakness Eyes Eyes: Denies blurry vision ENT Ears, Nose, Mouth, and Throat: Denies dizziness, Denies dysphagia and Denies nasal discharge *Cardiovascular Cardiovascular: Denies chest pain and Reports dyspnea *Respiratory Respiratory: Denies chest congestion, Denies cough and Reports dyspnea *Gastrointestinal Gastrointestinal: Denies dysphagia, Reports loose stools, Reports nausea and Reports vomiting *Genitourinary Genitourinary: Denies difficulty urinating and Denies dysuria *Musculoskeletal Musculoskeletal: Denies back pain and Denies myalgias *Neurologic Neurologic: Denies confusion, Denies dizziness and Reports weakness Psychiatric Psychiatric: Denies confusion Meds Home Medications and Allergies Home Medications ?Medication ?Instructions ?Recorded ?Confirmed ?Type atorvastatin 40 mg tablet 40 mg PO HS 30 days #90 tabs 06/25/24 03/08/25 Rx omeprazole 40 mg capsule,delayed 40 mg PO DAILY 03/08/25 History release folic acid 1 mg tablet 1 mg PO DAILY #90 tabs 08/0503/04/25 Rx clopidogrel 75 mg tablet 75 mg PO DAILY #90 tabs 10/2503/08/25 Rx Diabetic Shoes (DME) #1 ea 12/04/24 03/04/25 Rx tramadol 50 mg tablet 100 mg PO TIDP PRN Moderate Pain 12/23/24 03/08/25 History (Scale Score 5-6) dapagliflozin propanediol 10 mg 10 mg PO DAILY #90 tab s 12/25/24 03/04/25 Rx tablet (Farxiga) fluticasone propionate 50 2 spray intranasal BID 90 da ys #90 12/26/24 03/08/25 Rx mcg/actuation nasal grams spray,suspension (Flonase Allergy Relief) Dexcom G7 Sensor (blood-glucose #9 ea 02/03/25 5 Rx sensor) Humalog Mix 75-25 KwikPen U-100 20 unit (0.2 mL) SQ BI D #45 mL 02/03/25 03/08/25 Rx insulin 100 unit/mL subcutaneous pen (insulin lispro protamin-lispro) pen needle, diabetic 32 gauge x #100 ea 02/11/2503/04 Rx 1/6 cilostazol 100 mg tablet 100 mg PO BID 02/18/2503/08 History finerenone 20 mg tablet 20 mg PO DAILY 02/18/2502/24 History Mounjaro 2.5 mg/0.5 mL 2.5 mg (0.5 mL) SQ WEEKLY 3 months 02/24/25 03/08/25 Rx subcutaneous pen injector #6 mL (tirzepatide) Held on 03/06/25. Instructions: until completes PO antibiotics albuterol sulfate 90 mcg/actuation 2 puff inhalation Q 4HP PRN 03/04/25 03/08/25 History aerosol inhaler Shortness Of Breath cyclobenzaprine 10 mg tablet 10 mg PO Q8HP PRN muscle spasm 03/04/25 03/08/25 History famotidine 40 mg tablet 40 mg PO HS 03/04/25 5 History lidocaine 5 % topical patch 1 patch topical DAILY 12/1903/08/25 History metformin 1,000 mg tablet 1,000 mg PO BID 03/04/25 History metoprolol succinate 50 mg 50 mg PO DAILY 03/04/25 History tablet,extended release 24 hr ondansetron HCl 4 mg tablet 4 mg PO Q8HP PRN nausea an d 03/04/25 03/08/25 History vomiting tamsulosin 0.4 mg capsule 0.4 mg PO DAILY 03/04/25 History amiodarone 200 mg tablet 400 mg (2 x 200 mg) PO BID 3 0 days 03/06/25 03/08/25 Rx #120 tabs bumetanide 1 mg tablet 1 mg PO BIDL #60 tabs 03/08/25 Rx potassium chloride 20 mEq 20 meq PO DAILY #30 tabs 02/1803/08/25 Rx tablet,extended release (K-Tab) rivaroxaban 15 mg tablet (Xarelto) 15 mg PO DAILY 30 d ays #0 tabs 03/06/25 03/08/25 Rx empagliflozin 10 mg tablet 10 mg PO DAILY 03/08/25 History (Jardiance) New Prescriptions to Start Prescriptions: Allergies Allergy/AdvReac Type Severity Reaction Status Date / Time Penicillins (PENICILLINS) Allergy Unknown I-ITCHING Verified 03/04/25 10:57 Exam Data for Last 24 hours Vital signs and Labs for Last 24 Hours: Temp Pulse Resp BP Pulse Ox O2 Del Method 97.9 F 79 16 106/92 L 99 Room Air 03/08/25 04:00 03/08/25 04:00 03/08/25 04:00 03/08/25 04:00 03/08/25 04:00 03/08/25 04:00 Laboratory Results - last 24 hr 03/07/25 21:57: WBC 2.8 L, RBC 4.26 L, Hgb 8.9 L, Hct 28.9 L, MCV 67.8 L, MCH 20.9 L, MCHC 30.8 L, RDW 20.7 H, Plt Count 220, MPV 10.1, Neut % (Auto) 68.2, Lymph % (Auto) 12.9, [place] % (Auto) 16.4 H, Eos % (Auto) 0.7, Baso % (Auto) 0.7, Neut # (Auto) 1.9, Lymph # (Auto) 0.4 L, [place] # (Auto) 0.5, Eos # (Auto) 0.0, Baso # (Auto) 0.0, Total Counted 100, Neutrophils % (Manual) 77 H, Lymphocytes % (Manual) 13, Monocytes % (Manual) 8, Eosinophils % (Manual) 2, Platelet Estimate Normal, Giant Platelets 1+, Polychromasia 1+, Poikilocytosis 1+, Basophilic Stippling 1+, Anisocytosis 1+, Microcytosis 1+, Macrocytosis 1+, Target Cells 1+, Tear Drop Cells 1+, Ovalocytes 1+, [place] Cells 1+, Elliptocytes 1+, Retic Count (auto) 0.7 L, APTT 26.4, Sodium 136, Potassium 3.1 L, Chloride 102, Carbon Dioxide 17 L, Anion Gap 20.1 H, BUN 19, Creatinine 1.80 H D, Estimated Creat Clear 46, Estimated GFR 37 L, Est GFR ( Amer) 45 L D, Glucose 218 H, Calcium 8.6, Magnesium 1.8, Iron 26 L, TIBC 338, Iron Saturation 7.96691 L, Ferritin 40.4 D, Total Bilirubin 1.2, AST 54, ALT 40, Alkaline Phosphatase 93, Troponin I 0.10 H, NT-Pro-B Natriuret Pep 464 H, Total Protein 7.5, Albumin 4.2, Globulin 3.3 H, Albumin/Globulin Ratio 1.3, Lipase 68, Vitamin B12 925, Folate 14.80, HIV Ag/Ab Combo Qual Negative 03/07/25 21:59: VBG pH 7.42 H, VBG pCO2 29.4 L, VBG pO2 29.2, VBG HCO3 18.6 L, VBG Total CO2 19.5 L, VBG O2 Saturation 59.4, VBG Base Excess -6.0 L, VBG Lactic Acid 4.4 H 03/08/25 01:23: Troponin I 0.10 H 03/08/25 02:15: Urine Color Yellow, Urine Appearance Clear, Urine pH 6.0, Ur Specific [place] 1.010, Urine Protein Trace, Urine Glucose (UA) Negative, Urine Ketones Negative, Urine Blood Trace-i, Urine Nitrate Negative, Urine Bilirubin Negative, Urine Urobilinogen 0.2, Ur Leukocyte Esterase Negative, Ur Squamous Epith Cells Occasional I & O for Last 24 hours: Intake & Output 03/05/25 03/06/25 03/07/25 03/08/25 23:59 23:59 23:59 23:59 Intake Total 1200 / 1200 Output Total 260 / 260 Balance 940 / 940 Weight 88.451 kg 82.917 kg Constitutional Constitutional: no acute distress *Routine HEENT Exam Head: Present normocephalic and atraumatic Eye: Present PERRL ENT: Present mucous membranes dry *Routine Neck Exam Neck: Present supple *Routine Respiratory Exam Respiratory: Present CTA bilaterally *Routine Cardiovascular Exam Cardiovascular: Present RRR, Normal S1 and Normal S2 *Routine Abdominal Exam Abdominal: Present soft and normoactive bowel sounds *Routine Rectal Exam Rectal:: deferred *Routine Genitalia Exam Genitalia:: deferred *Routine Extremities Exam Extremities: Present edema (Has lymphedema at baseline. States this is about normal for him.) and pulses intact *Routine Skin Exam Skin: Present dry and warm *Routine Neurological Exam Neurological: Present alert, oriented X3 and moving all extremities Assessment and Plan *Assessment and plan (1) GUILLERMO (acute kidney injury): Status: Acute Category: Medical Code(s): N17.9 - Acute kidney failure, unspecified (2) Pre-syncope: Status: Acute Category: Medical Code(s): R55 - Syncope and collapse (3) Weakness: Status: Acute Category: Medical Code(s): R53.1 - Weakness (4) High anion gap metabolic acidosis: Status: Acute Category: Medical Code(s): E87.29 - Other acidosis (5) Hypokalemia: Status: Acute Category: Medical Code(s): E87.6 - Hypokalemia (6) Nausea vomiting and diarrhea: Status: Acute Category: Medical Code(s): R11.2 - Nausea with vomiting, unspecified; R19.7 - Diarrhea, unspecified (7) History of brachytherapy: Status: Acute Category: Surgical Code(s): Z92.3 - Personal history of irradiation (8) T2DM (type 2 diabetes mellitus): Problem Comment: On tirzepatide Status: Chronic Qualifiers: Diabetes mellitus complication detail: with other circulatory complications Diabetes mellitus complication status: with circulatory complication 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 transplanted heart: minto heart Qualified Code(s): I25.10 - Atherosclerotic heart disease of [place] coronary artery without angina pectoris Category: Medical Code(s): I25.10 - Atherosclerotic heart disease of [place] coronary artery without angina pectoris (10) HLD (hyperlipidemia): Status: Chronic Qualifiers: Hyperlipidemia type: mixed hyperlipidemia Qualified Code(s): E78.2 - Mixed hyperlipidemia Category: Medical Code(s): E78.5 - Hyperlipidemia, unspecified (11) HTN (hypertension): Status: Chronic Qualifiers: Hypertension type: essential hypertension Qualified Code(s): I10 - Essential (primary) hypertension Category: Medical Code(s): I10 - Essential (primary) hypertension (12) Iron deficiency anemia: Status: Chronic Qualifiers: Iron deficiency anemia type: unspecified iron deficiency Qualified Code(s): D50.9 - Iron deficiency anemia, unspecified Category: Medical Code(s): D50.9 - Iron deficiency anemia, unspecified (13) Atrial flutter: Problem Comment: On [place] Status: Resolved Qualifiers: Atrial flutter type: typical Qualified Code(s): I48.3 - Typical atrial flutter Category: Medical Code(s): I48.92 - Unspecified atrial flutter Plan Patient presents with near syncopal episodes at home. He denies injuries from these falls and no loss of consciousness. Was recently started on diuretics as well as amiodarone for heart failure and atrial flutter. He has also had nausea vomiting and diarrhea from C. difficile colitis. After discussion with the ER physician I agreed to accept this patient for admission. He received 1 L of fluid in the ER. Will hold off on any further fluid due to his recent episode of heart failure. Will ask physical and Occupational Therapy to evaluate and treat. I have asked them to get orthostatic blood pressures. GUILLERMO Presyncope?suspect this may be due to mild dehydration with the addition of Bumex. Will hold diuretics for now. Received 1 L fluid in the ER. No further IV fluids at this time. Monitor blood pressure. I have asked them to get orthostatics. Monitor on telemetry. High anion gap metabolic acidosis Nausea vomiting and diarrhea?recent history of C. difficile colitis. Discharged on oral vancomycin. Suspect metabolic acidosis is from vomiting and diarrhea. Currently denies GI symptoms. Hypokalemia?potassium replacement given in the ER. Replacement protocol ordered. Labs repeated in the morning. Diabetes mellitus type 2?low-dose sliding scale insulin coverage. Will resume home medications once verified. CAD/HLD/HTN/brachytherapy?underwent brachytherapy about 1 week ago. Currently no chest pain. Shortness of breath only slightly worse than baseline. Blood pressure controlled. Will continue home medications once verified HF PEF Atrial flutter Monitor on telemetry. EKG in the ER shows a sinus rhythm. Continue home medications once verified. Leukopenia/anemia History of iron deficiency anemia?positive findings on peripheral smear. Anemia workup reveals iron deficiency with an iron level of 26 and iron saturation of 7.69, ferritin 40.4 and TIBC 338. Hemoglobin does not appear to be about at his baseline.
[2025-03-08] MEDS: humaLOG 100 UNITS/ML 10ML VIAL (SSI) SUBCUT ×4 (05:25→20:35)
[2025-03-08 05:26] LABS: POC Glucose,Bedside 166 gm/dL (70-110)
[2025-03-08 07:24] LABS: Hematocrit 25.5 % (42.0-52.0); Hemoglobin 8.2 g/dL (14.1-18.0); Immature Granulocytes % 0.3 %; Mean Corpuscular HGB Conc 32.2 g/dL (31.8-35.4); Mean Corpuscular Hemoglobin 21.5 pg (27.0-31.2); Mean Corpuscular Volume 66.8 fl (80-94); Nucleated Red Blood Cells % 0 %; Platelet Count 207 K/mm3 (142-424); Red Blood Count 3.82 M/mm3 (4.60-6.20); Red Cell Distribution Width-SD 49.0 fL; White Blood Count 3.0 K/mm3 (4.8-10.8)
[2025-03-08 07:25] LABS: Lactic Acid Follow Up (RFLX 1) 1.0 mmol/L (0.7-2.1)
[2025-03-08 07:38] LABS: Troponin I 0.10 ng/ml (0.00-0.034)
[2025-03-08 08:03] LABS: RBC Morphology Normal; Total Cells Counted 100
[2025-03-08 09:00] LABS: Albumin Level 3.6 g/dl (3.5-5.0); Chloride 107 mmol/L (98-107); Sodium 137 mmol/L (136-145)
[2025-03-08 09:02] LABS: Blood Urea Nitrogen 17 mg/dl (9-20); Creatinine Clearance Estimated 52 mL/min (50-200); Creatinine,Serum 1.50 mg/dl (0.66-1.25); Estimated Glomerular Filt Rate 46 ml/min (>60); GFR (African American) 56 ML/MIN (>60)
[2025-03-08 09:03] LABS: Alanine Aminotransferase 34 U/L (12-78); Albumin/Globulin Ratio 1.2 (1.1-1.8); Alkaline Phosphatase 78 U/L (38-126); Anion Gap 13.7 mEq/L (5-15); Aspartate Amino Transferase 52 U/L (17-59); Bilirubin,Total 0.8 mg/dl (0.2-1.3); Calcium 8.1 mg/dl (8.4-10.2); Carbon Dioxide 19 mmol/L (22.0-30.0); Globulin 3.1 g/dL (1.3-3.2); Glucose 134 mg/dl (74-100); Total Protein,Serum 6.7 g/dl (6.3-8.2)
--- NOTE | 2025-03-08 09:10 | HMH.PHAAMS2 ---
- Antimicrobial Stewardship Review culture & sensitivity review Stewardship interventions: culture & sensitivity review, reviewed - no change Comments: ON FIRVANQ FOR POSITIVE C. DIFFICILE STOOL SAMPLE 03/05/25, PATIENT ON DAY 3 OF TREATMENT GOING BACK TO PREVIOUS ADMISSION ON 03/06/25.
[2025-03-08 09:11] LABS: Potassium 2.7 mmoL/L (3.5-5.1)
[2025-03-08] MEDS: IRON SUCROSE COMPLEX 200 MG in 0.9 % SODIUM CHLORIDE 100 ML 220 MG IV (09:38)
[2025-03-08] MEDS: POTASSIUM CHLORIDE 20MEQ TAB 40 MEQ PO ×3 (09:38→16:34)
[2025-03-08] MEDS: VANCOMYCIN HCL 50MG/ML 150ML KIT 125 MG PO ×4 (09:39→20:39)
--- NOTE | 2025-03-08 09:45 | HMH.PTEV ---
Physical Therapy Evaluation Rehab PT IP Evaluation Start: 03/08/25 02:33 Freq: ONCE Status: Active Protocol: Document 03/08/25 09:40 WILFRID (Rec: 03/08/25 09:45 [id number] [id number]) Subjective/History History History Per H&P: 74-year-old male patient presents to ER after several falls throughout the day. He states that his arms and legs began to shake and then they give out and he falls. He denies loss of consciousness. Denies injuries. Does not appear to be orthostatic based on his description. He denies chest pain but does have more shortness of breath than normal for him. He has had some nausea vomiting and diarrhea. He was discharged from the hospital with oral vancomycin. Previously had had some hypokalemia that has improved slightly to 3.1. He was found to have an elevated anion gap as well as creatinine. His checked his blood pressure and his blood sugar at home when these episodes happen and both were in normal range. Underwent brachytherapy with a coronary stent 1 week ago. Was then admitted to this hospital on 03/04 and discharged on 03/06 for sepsis due to C. difficile colitis and atrial flutter. He was also treated for diastolic heart failure and an NSTEMI. New meds at discharge were amiodarone, bumetanide, potassium and oral vancomycin. On 1211 his weight was 88.45 kg and today it is 82.92 kg. Subjective Subjective PLOF: IND with use of RW or cane. Recent reported falls d/t weakness. HOME: Lives with his in a home with 1 JULIETA. ASSIST: and grandson able to provide assistance if needed. [facility] How much help from another person do you currently need... Turning from your None back to your side while in a flat bed without using bedrails? Moving from lying on None back to sitting on the side of a flat bed without using bedrails? Moving to and from a None bed to a chair ( including a wheelchair)? Standing up from a None chair using your arms? (e.g., wheelchair, bedside chair) Walking in hospital A little room? Climbing 3-5 steps A little with a railing? Mobility Score 22 Mobility Level [facility] Mobility 7 Walk 25 feet or more Mobility Calculator Rehab PT IP Eval Objective Appearance Patient Behavior Appropriate,Cooperative Patient Orientation Person Difficulty following none instructions Speech Pattern Clear Ambulation Patient Able to Yes Ambulate Ambulation Observation IP General Gait Decrease Stride Lngth (R),Decrease Stride Lngth (L) Pattern Observation Ambulation Distance 25 (feet) Ambulation Assistive Rolling Walker Device Ambulation Ability Contact Guard/Hand Hold Balance Ability to Arise Able, uses arms to help Sitting Balance Steady, safe Standing Balance Steady, wide stance Dynamic Sitting Good Balance Ability Dynamic Standing Good Balance Ability Transfers Bed Transfer Ability Supervision/Stand by Sit to Stand Bed Supervision/Stand by Transfer Ability Rehab PT IP prob,goals,plan Problems Date of Evaluation: 03/08/25 PT IP Problems Transfers,Gait,Balance,Self care,Safety Rehab Potential Rehab Potential Good Plan PT Intervention Plan Transfers,Gait,Balance,Self care,Safety,Therapeutic Exercise Other Intervention 1-2 times Plan PT Plan Frequency Daily Duration LOS Discharge Goals Bed Transfer Ability Supervision/Stand by Sit to Stand Chair Supervision/Stand by Transfer Ability Ambulation Distance 50 (feet) Discharge Plan PT Discharge Plan Pt presents below his baseline in global strength and functional mobility. Pt required CGA for safety during ambulation d/t reported BLE weakness and intermittent mild BLE buckling. Pt most appropriate to return home with 17/10 supervision or assist for safety. Pt would benefit from skilled PT while at [facility] to prevent further functional decline and PT services to address deficits. Eval Complexity Eval Charge Codes 63925 - Moderate Complexity PHYSICIAN CERTIFICATION: I certify the specified therapy services for Isabella Alford III are required, authorized, and reviewed every 30 days.
[2025-03-08] MEDS: SODIUM CHLORIDE 3% 15ML NEB 3 ML IH (09:49)
--- NOTE | 2025-03-08 10:03 | HMH.PHAINT1 ---
Pharmacy Intervention Comments: MEDICATION RECONCILIATION COMPLETE USING MEDICATION LIST FROM RECENT DISCHARGE (03/06/25)
[2025-03-08 11:04] LABS: POC Glucose,Bedside 173 gm/dL (70-110)
[2025-03-08] MEDS: CLOPIDOGREL 75MG TAB 75 MG PO (11:12)
[2025-03-08] MEDS: CILOSTAZOL 100MG TABLET 100 MG PO ×2 (11:12→20:35)
[2025-03-08] MEDS: humaLOG MIX 75/25 3ML FLEXPEN 15 UNIT SUBCUT ×2 (11:12→20:36)
[2025-03-08] MEDS: AMIODARONE 200MG TABLET 400 MG PO ×2 (11:12→20:35)
[2025-03-08] MEDS: ACETAMINOPHEN 325MG TAB 650 MG PO (15:26)
--- NOTE | 2025-03-08 16:20 | PC.NURSE ---
Patient remained on room air, po vanc tolerated. Patient able to ambulate to the bathroom and back with 1 assist.
[2025-03-08 16:45] LABS: POC Glucose,Bedside 181 gm/dL (70-110)
[2025-03-08 20:18] LABS: POC Glucose,Bedside 168 gm/dL (70-110)
[2025-03-08] MEDS: TAMSULOSIN 0.4MG CAPSULE 0.4 MG PO (20:35)
[2025-03-08] MEDS: ATORVASTATIN 40MG TABLET 40 MG PO (20:35)
[2025-03-08] MEDS: PANTOPRAZOLE 40MG TABLET 40 MG PO (20:35)
[2025-03-08] MEDS: FAMOTIDINE 20MG TABLET 40 MG PO (20:35)
[2025-03-09] VITALS (20 sets, daily range): BP systolic 112–153; BP diastolic 55–91; PULSE 60–102; RESP 16–20; TEMP 36.3–36.6; O2SAT 97–100; BMI 25.7; BMI 26.4
[2025-03-09] MEDS: ACETAMINOPHEN 325MG TAB 650 MG PO ×2 (04:31→17:05)
--- NOTE | 2025-03-09 04:58 | PC.NURSE ---
Pt has slept on and off all night. Tolerating Room air. Pt is on a DM cardiac diet. He has 2+ edema in his Left lower extremity and 3+ Edema in his Right leg. Pt is a assist of one with a walker to walk to the . He has [facility] Blood Glucose checks.Pt has the electrolyte protocol in place. LINWOOD ARRIAGA RN
[2025-03-09 06:22] LABS: POC Glucose,Bedside 151 gm/dL (70-110)
[2025-03-09 07:28] LABS: Hematocrit 27.6 % (42.0-52.0); Hemoglobin 8.7 g/dL (14.1-18.0); Immature Granulocytes % 0.4 %; Mean Corpuscular HGB Conc 31.5 g/dL (31.8-35.4); Mean Corpuscular Hemoglobin 21.1 pg (27.0-31.2); Mean Corpuscular Volume 67.0 fl (80-94); Nucleated Red Blood Cells % 0 %; Platelet Count 216 K/mm3 (142-424); Red Blood Count 4.12 M/mm3 (4.60-6.20); Red Cell Distribution Width-SD 49.8 fL; White Blood Count 2.4 K/mm3 (4.8-10.8)
[2025-03-09 07:53] LABS: Albumin Level 3.9 g/dl (3.5-5.0); Chloride 107 mmol/L (98-107); Potassium 3.1 mmoL/L (3.5-5.1); Sodium 132 mmol/L (136-145)
[2025-03-09 07:56] LABS: Alanine Aminotransferase 36 U/L (12-78); Albumin/Globulin Ratio 1.2 (1.1-1.8); Alkaline Phosphatase 85 U/L (38-126); Anion Gap 9.1 mEq/L (5-15); Aspartate Amino Transferase 54 U/L (17-59); Bilirubin,Total 0.8 mg/dl (0.2-1.3); Blood Urea Nitrogen 13 mg/dl (9-20); Calcium 8.4 mg/dl (8.4-10.2); Carbon Dioxide 19 mmol/L (22.0-30.0); Creatinine Clearance Estimated 56 mL/min (50-200); Creatinine,Serum 1.40 mg/dl (0.66-1.25); Estimated Glomerular Filt Rate 50 ml/min (>60); GFR (African American) 60 ML/MIN (>60); Globulin 3.3 g/dL (1.3-3.2); Glucose 120 mg/dl (74-100); Total Protein,Serum 7.2 g/dl (6.3-8.2)
[2025-03-09 07:57] LABS: Magnesium 1.9 mg/dl (1.6-2.3)
--- NOTE | 2025-03-09 08:45 | EXP.ACUTE.PN ---
Subjective *Date: 03/09/25 *Time: 12:26 Interval history: Feeling better today but still gets shaky in his legs when he stands. Reports that he has been short of breath for several months. On review of chart, concern his anemia that is gradually gotten worse over the past 4 to 5 months as a culprit and a lot of his symptoms at this time. Denies known history of anemia. Stable on room air. No nausea or vomiting. No chest pain. Alert and oriented x 4 Medical Exam Vital signs and Labs for Last 24 Hours: Vital Signs Temp Pulse Pulse Resp BP Pulse Ox O2 Del Method 03/09/25 07:34 97.8 F 86 16 112/65 100 Room Air 03/09/25 06:26 Room Air 03/09/25 05:00 Room Air 03/09/25 04:00 97.4 F L 97 H 16 128/75 98 Room Air 03/09/25 04:00 90 03/09/25 03:00 Room Air 03/09/25 01:00 Room Air 03/09/25 00:00 90 03/08/25 23:00 Room Air 03/08/25 21:00 Room Air 03/08/25 20:00 Room Air 03/08/25 20:00 80 03/08/25 20:00 98.4 F 82 16 122/70 98 Room Air, Non-Rebreather 03/08/25 18:31 Room Air 03/08/25 17:00 Room Air 03/08/25 16:00 80 03/08/25 15:56 98.6 F 96 H 16 119/61 98 Room Air 03/08/25 15:00 Room Air 03/08/25 13:05 Room Air 03/08/25 12:00 90 03/08/25 11:00 Room Air 03/08/25 09:49 16 03/08/25 09:00 Room Air Intake and Output 03/08/25 03/09/25 03/09/25 23:59 07:59 15:59 Intake Total 240 / 240 Output Total 0 / 260 0 / 0 Balance 0 0 240 / 240 Intake: Intake, Oral Amount 240 / 240 Output: Output, Urine Amount 0 / 260 0 / 0 Other: Number of Unmeasured Voids 1 1 Number of Bowel Movements 1 Weight 83.189 kg Patient Weight 03/09/25 23:59 Weight 83.189 kg Laboratory Results - last 24 hr 03/08/25 06:38: Sodium 137, Potassium 2.7 L*, Chloride 107, Carbon Dioxide 19 L, Anion Gap 13.7, BUN 17, Creatinine 1.50 H, Estimated Creat Clear 52, Estimated GFR 46 L, Est GFR ( Amer) 56 L D, Glucose 134 H D, Calcium 8.1 L, Total Bilirubin 0.8, AST 52, ALT 34, Alkaline Phosphatase 78, Total Protein 6.7, Albumin 3.6 D, Globulin 3.1, Albumin/Globulin Ratio 1.2 03/08/25 10:47: POC Glucose 173 H 03/08/25 16:32: POC Glucose 181 H 03/08/25 20:07: POC Glucose 168 H 03/09/25 06:15: POC Glucose 151 H 03/09/25 06:59: WBC 2.4 L, RBC 4.12 L, Hgb 8.7 L, Hct 27.6 L, MCV 67.0 L, MCH 21.1 L, MCHC 31.5 L, RDW 20.7 H, Plt Count 216, MPV 9.5, Neut % (Auto) 62.2, Lymph % (Auto) 20.0, [place] % (Auto) 15.3 H, Eos % (Auto) 1.7, Baso % (Auto) 0.4, Neut # (Auto) 1.5 L, Lymph # (Auto) 0.5 L, [place] # (Auto) 0.4, Eos # (Auto) 0.0, Baso # (Auto) 0.0, Sodium 132 L, Potassium 3.1 L, Chloride 107, Carbon Dioxide 19 L, Anion Gap 9.1, BUN 13, Creatinine 1.40 H, Estimated Creat Clear 56, Estimated GFR 50 L, Est GFR ( Amer) 60, Glucose 120 H, Calcium 8.4, Magnesium 1.9, Total Bilirubin 0.8, AST 54, ALT 36, Alkaline Phosphatase 85, Total Protein 7.2, Albumin 3.9, Globulin 3.3 H, Albumin/Globulin Ratio 1.2 I & O for Labs for Last 24 Hours: Intake & Output 03/06/25 03/07/25 03/08/25 03/09/25 23:59 23:59 23:59 23:59 Intake Total 2060 / 2300 240 / 240 Output Total 260 / 260 0 / 0 Balance 1800 / 0 240 / 240 Weight 88.451 kg 82.917 kg 83.189 kg Constitutional: Present no acute distress, obese, chronically ill appearing and cooperative Head: Present atraumatic and normocephalic ENT: Present normal exam Respiratory: Present normal respiratory effort; Absent rhonchi, wheezes or crackles Comment:: Irregularly irregular, rate controlled GI: Present soft; Absent distention or tenderness Extremities: Present normal inspection, full ROM and edema (3+ to knees bilaterally, right worse than left) Comment:: Mild erythema of anterior shins that appears chronic Skin: Present intact and erythema (Mild on anterior shins bilaterally) Neuro: Present Grossly Intact, alert, awake, oriented x 3 and moves all extremities Assessment and Plan *Assessment and plan (1) GUILLERMO (acute kidney injury): Status: Acute Category: Medical Code(s): N17.9 - Acute kidney failure, unspecified (2) Pre-syncope: Status: Acute Category: Medical Code(s): R55 - Syncope and collapse (3) Weakness: Status: Acute Category: Medical Code(s): R53.1 - Weakness (4) High anion gap metabolic acidosis: Status: Acute Category: Medical Code(s): E87.29 - Other acidosis (5) Hypokalemia: Status: Acute Category: Medical Code(s): E87.6 - Hypokalemia (6) Nausea vomiting and diarrhea: Status: Acute Category: Medical Code(s): R11.2 - Nausea with vomiting, unspecified; R19.7 - Diarrhea, unspecified (7) History of brachytherapy: Status: Acute Category: Surgical Code(s): Z92.3 - Personal history of irradiation (8) T2DM (type 2 diabetes mellitus): Problem Comment: On tirzepatide Status: Chronic Qualifiers: Diabetes mellitus exterminator helper termite insulin use: without exterminator helper termite use Diabetes mellitus complication status: with circulatory complication Diabetes mellitus complication detail: with other circulatory complications Qualified Code(s): E11.59 - Type 2 diabetes mellitus with other circulatory complications Category: Medical Code(s): E11.9 - Type 2 diabetes mellitus without complications (9) CAD (coronary artery disease): Problem Comment: Recent stent procedure 10/2024 Status: Chronic Qualifiers: Coronary Disease-Associated Artery/Lesion type: [place] artery [place] vs. transplanted heart: [place] heart Associated angina: without angina Qualified Code(s): I25.10 - Atherosclerotic heart disease of [place] coronary artery without angina pectoris Category: Medical Code(s): I25.10 - Atherosclerotic heart disease of [place] coronary artery without angina pectoris (10) HLD (hyperlipidemia): Status: Chronic Qualifiers: Hyperlipidemia type: mixed hyperlipidemia Qualified Code(s): E78.2 - Mixed hyperlipidemia Category: Medical Code(s): E78.5 - Hyperlipidemia, unspecified (11) HTN (hypertension): Status: Chronic Qualifiers: Hypertension type: essential hypertension Qualified Code(s): I10 - Essential (primary) hypertension Category: Medical Code(s): I10 - Essential (primary) hypertension (12) Iron deficiency anemia: Status: Chronic Qualifiers: Iron deficiency anemia type: unspecified iron deficiency Qualified Code(s): D50.9 - Iron deficiency anemia, unspecified Category: Medical Code(s): D50.9 - Iron deficiency anemia, unspecified (13) Atrial flutter: Problem Comment: On Inocenciadulcesuzie Status: Resolved Qualifiers: Atrial flutter type: typical Qualified Code(s): I48.3 - Typical atrial flutter Category: Medical Code(s): I48.92 - Unspecified atrial flutter Plan Patient presents with near syncopal episodes at home. He denies injuries from these falls and no loss of consciousness. Was recently started on diuretics as well as amiodarone for heart failure and atrial flutter. He has also had nausea vomiting and diarrhea from C. difficile colitis. After discussion with the ER physician I agreed to accept this patient for admission. He received 1 L of fluid in the ER. Will hold off on any further fluid due to his recent episode of heart failure. PT and OT evaluating. Given his orthostatics and continued shaky legs when standing, along with complaint of shortness of breath, concern his anemia is symptomatic. Will transfuse 1 unit today for goal hemoglobin greater than 9. Continues to require inpatient management. Repeat orthostatic blood pressures today. Problems addressed as follows: GUILLERMO Presyncope?suspect this may be due to mild dehydration with the addition of Bumex. - Continue to hold diuretics. GUILLERMO improving, creatinine 1.4. - No further IV fluids. - Repeat orthostatics today. C. difficile diarrhea: Continue vancomycin p.o. 125 mg 4 times a day Hypokalemia: Potassium 3.1, replaced per protocol. Magnesium 1.9 Diabetes mellitus type 2?low-dose sliding scale insulin coverage. Doing Mounjaro and metformin while admitted, resumed insulin 75/25 at reduced dose of 15 units twice daily CAD/HLD/HTN/brachytherapy HF PEF Atrial flutter - Monitor on telemetry. EKG in the ER shows a sinus rhythm. - underwent brachytherapy about 1 week ago. Amiodarone for 100 mg twice daily, Lipitor 80 mg nightly, cilostazol 100 twice, Plavix 75 mg daily, finerenone 10 mg daily Leukopenia/anemia History of iron deficiency anemia?positive findings on peripheral smear. Anemia workup reveals iron deficiency with an iron level of 26 and iron saturation of 7.69, ferritin 40.4 and TIBC 338. - White count low at 2.4. Hemoglobin low at 8.7, has gradually dropped since October from approximately 12 to current level. Patient has become more symptomatic. MCV 67. Received IV iron yesterday, in light of his symptomatic nature even though this appears to be subacute to chronic, will transfuse 1 unit packed red blood cells today to monitor for improvement in symptoms. - Repeat CBC, CMP, magnesium ordered for the morning Full code Xarelto Diabetic/cardiac diet
--- NOTE | 2025-03-09 08:50 | P.CONPHA_ITS ---
- Antimicrobial Stewardship Review culture & sensitivity review Stewardship interventions: culture & sensitivity review, reviewed - no change Comments: SPUTUM WAS COLLECTED TODAY, RESULTS PENDING. ON [facility] FOR POSITIVE C. DIFFICILE STOOL SAMPLE 03/05/25, PATIENT ON DAY 4 OF TREATMENT GOING BACK TO PREVIOUS ADMISSION ON 03/06/25
[2025-03-09 08:57] LABS: RBC Morphology Normal; Total Cells Counted 100
[2025-03-09] MEDS: humaLOG MIX 75/25 3ML FLEXPEN 15 UNIT SUBCUT ×2 (09:46→20:42)
[2025-03-09] MEDS: CILOSTAZOL 100MG TABLET 100 MG PO (09:46)
[2025-03-09] MEDS: CLOPIDOGREL 75MG TAB 75 MG PO (09:46)
[2025-03-09] MEDS: VANCOMYCIN HCL 50MG/ML 150ML KIT 125 MG PO ×4 (09:46→20:43)
[2025-03-09] MEDS: AMIODARONE 200MG TABLET 400 MG PO (09:47)
[2025-03-09] MEDS: 0.9 % SODIUM CHLORIDE 250 ML 25 ML IV (11:25)
[2025-03-09 11:55] LABS: POC Glucose,Bedside 137 gm/dL (70-110)
--- NOTE | 2025-03-09 14:52 | PC.NURSE ---
pt is A&O x4. pts hgb was 8.7 this morning so we transfused 1 unit of PRBCs. we got orthostatic pressures on him and lying his BP was 149/70, sitting it was 131/62 and standing it dropped to 117/55. pt has no other concerns or needs at this time.
[2025-03-09 15:22] LABS: Hematocrit 31.0 % (42.0-52.0)
[2025-03-09 16:07] LABS: Hemoglobin 9.9 g/dL (14.1-18.0)
[2025-03-09 17:06] LABS: POC Glucose,Bedside 159 gm/dL (70-110)
[2025-03-09] MEDS: PANTOPRAZOLE 40MG TABLET 40 MG PO (20:41)
[2025-03-09] MEDS: AMIODARONE 200MG TABLET 200 MG PO (20:41)
[2025-03-09] MEDS: FAMOTIDINE 20MG TABLET 40 MG PO (20:41)
[2025-03-09] MEDS: humaLOG 100 UNITS/ML 10ML VIAL (SSI) SUBCUT (20:42)
[2025-03-09] MEDS: ATORVASTATIN 40MG TABLET 40 MG PO (20:42)
[2025-03-09] MEDS: TAMSULOSIN 0.4MG CAPSULE 0.4 MG PO (20:42)
[2025-03-09 20:51] LABS: POC Glucose,Bedside 174 gm/dL (70-110)
[2025-03-10] VITALS: BP 136/75; PULSE 70; PULSE 78; RESP 16; TEMP 36.6; O2SAT 96
[2025-03-10 04:00] VITALS: BP 134/78; PULSE 44; PULSE 70; RESP 18; TEMP 36.6; O2SAT 98; BMI 26.3
--- NOTE | 2025-03-10 05:54 | PC.NURSE ---
Pt is Alert and oriented X4, Pt has a cardiology consult today. room Air, unlabored and even. Pt ambulates with a walker in the room with a stand by assist to the Bathroom. Pt is DM II receives long acting and short acting insulin. Pt is a full code. Has edema on his lower extremities hanna one is a 2+ edema and the other is a 3 + Edema. Call light is within reach and wheels are locked on the bed. LINWOOD ARRIAGA RN
[2025-03-10 06:50] LABS: Hematocrit 29.2 % (42.0-52.0); Hemoglobin 9.5 g/dL (14.1-18.0); Immature Granulocytes % 0 %; Mean Corpuscular HGB Conc 32.5 g/dL (31.8-35.4); Mean Corpuscular Hemoglobin 22.2 pg (27.0-31.2); Mean Corpuscular Volume 68.4 fl (80-94); Nucleated Red Blood Cells % 0 %; Platelet Count 208 K/mm3 (142-424); Red Blood Count 4.27 M/mm3 (4.60-6.20); Red Cell Distribution Width-SD 51.8 fL; White Blood Count 2.3 K/mm3 (4.8-10.8)
[2025-03-10] MEDS: humaLOG 100 UNITS/ML 10ML VIAL (SSI) SUBCUT ×2 (06:53→21:01)
[2025-03-10 06:54] LABS: POC Glucose,Bedside 188 gm/dL (70-110)
[2025-03-10 06:57] LABS: Albumin Level 3.7 g/dl (3.5-5.0); Chloride 104 mmol/L (98-107); Sodium 133 mmol/L (136-145)
[2025-03-10 07:00] LABS: Alanine Aminotransferase 35 U/L (12-78); Albumin/Globulin Ratio 1.2 (1.1-1.8); Alkaline Phosphatase 85 U/L (38-126); Anion Gap 7.9 mEq/L (5-15); Aspartate Amino Transferase 54 U/L (17-59); Bilirubin,Total 0.7 mg/dl (0.2-1.3); Blood Urea Nitrogen 11 mg/dl (9-20); Carbon Dioxide 24 mmol/L (22.0-30.0); Creatinine Clearance Estimated 67 mL/min (50-200); Creatinine,Serum 1.20 mg/dl (0.66-1.25); Estimated Glomerular Filt Rate 60 ml/min (>60); GFR (African American) 72 ML/MIN (>60); Globulin 3.1 g/dL (1.3-3.2); Total Protein,Serum 6.8 g/dl (6.3-8.2)
[2025-03-10 07:01] LABS: Calcium 8.3 mg/dl (8.4-10.2); Glucose 167 mg/dl (74-100)
[2025-03-10 07:08] LABS: Potassium 2.9 mmoL/L (3.5-5.1)
[2025-03-10 07:41] LABS: Magnesium 1.7 mg/dl (1.6-2.3)
[2025-03-10 08:00] VITALS: BP 139/69; PULSE 86; PULSE 90; RESP 20; TEMP 36.5; O2SAT 97
--- NOTE | 2025-03-10 08:03 | DIET.NUTRFU ---
Addendum entered by Rika Cruz RD, LD 03/10/25 08:05: has wound to toe, encourage protein intake to promote healing Original Note: RD reviewed chart, no longer needs diabetic diet with A1c of 7.5%. Liberalized to a SUZANNE, intake fair will continue to monitor
[2025-03-10 08:27] LABS: Total Cells Counted 100
[2025-03-10 08:28] LABS: Hypochromasia 1+
[2025-03-10] MEDS: CLOPIDOGREL 75MG TAB 75 MG PO (08:40)
[2025-03-10] MEDS: AMIODARONE 200MG TABLET 200 MG PO ×2 (08:40→21:02)
[2025-03-10] MEDS: CILOSTAZOL 100MG TABLET 100 MG PO ×2 (08:40→21:02)
[2025-03-10] MEDS: POTASSIUM CHLORIDE 20MEQ TAB 40 MEQ PO ×3 (08:41→16:45)
[2025-03-10] MEDS: MAGNESIUM SULFATE IN WATER 2 GM/50 ML PIGGYBACK IV ×2 (08:44→10:37)
[2025-03-10] MEDS: VANCOMYCIN HCL 50MG/ML 150ML KIT 125 MG PO ×4 (08:45→21:02)
--- NOTE | 2025-03-10 08:51 | PC.NURSE ---
Patient refusing bed alarm despite education about safety and protocol
[2025-03-10] MEDS: humaLOG MIX 75/25 3ML FLEXPEN 15 UNIT SUBCUT ×2 (09:37→21:00)
--- NOTE | 2025-03-10 10:29 | HMH.PHAAMS2 ---
- Antimicrobial Stewardship Review culture & sensitivity review Stewardship interventions: culture & sensitivity review, reviewed - no change Comments: SPUTUM PENDING, STOOL CX PENDING. [facility] POS[facility]IVE C. DIFFICILE STOOL SAMPLE 03/05/25, PATIENT ON DAY 5 OF TREATMENT GOING BACK TO PREVIOUS ADMISSION ON 03/06/25
--- NOTE | 2025-03-10 11:01 | EXP.CARD.CON ---
History of Present Illness History of Present Illness Consult date: 03/10/25 Requesting physician: De Palacio Chief complaint: Generalized weakness History of present illness: Mable meeks is a 74-year-old male with a past medical history of HFpEF, atrial fibrillation/flutter, coronary artery disease status post recent brachytherapy and chronic kidney disease who presented back to the emergency department on 03/08/2025 for generalized weakness and multiple falls. Of note patient was recently inpatient and treated for sepsis and C. diff and discharged home on 03/06/2025 with amiodarone, Bumex, potassium and oral vancomycin. Patient returned on 03/08 with complaints of falls and weakness. Patient reports legs felt very weak and just kept giving out on him. EKG upon presentation to hospital showed sinus rhythm with frequent PVCs at a rate of 86. Labs were as follows: WBC 3, hemoglobin 8.2, sodium 137, potassium 2.7, creatinine 1.5, and a troponin 0.1 x 2. Patient was admitted for near syncope. Primary service transfused 1 unit and decrease amiodarone to 200 mg p.o. twice daily. Bumex is on hold. Hemoglobin has improved from 8.2-9.5 today. Patient reports he is feeling much better. Denies chest pain. Reports shortness of breath is at baseline. Was able to ambulate around room with therapy without any weakness in legs or feeling syncopal. [facility] Disclaimer: The information contained in this section may have been updated after the patient was seen, as this information can be updated by other users. Medical History (Updated 03/08/25 @ 05:20 by Clarisse Rojas APRN) C. difficile diarrhea Acute on chronic heart failure with preserved ejection fraction (HFpEF) NSTEMI (non-ST elevated myocardial infarction) Short of breath on exertion (HFpEF) heart failure with preserved ejection fraction GERD (gastroesophageal reflux disease) COVID URI (upper respiratory infection) Pre-ulcerative calluses Thyromegaly Eustachian tube dysfunction Bilateral tinnitus Dysphagia Throat tightness Acquired lymphedema Hematoma of left lower leg Cellulitis of lower leg Dyspnea on exertion ILD (interstitial lung disease) Left renal mass Acute nontraumatic kidney injury Hypomagnesemia Elevated brain natriuretic peptide (BNP) level Dyspnea Elevated troponin Chronic GERD Orthostatic hypotension Dizziness Atypical angina Cellulitis of right leg Vocal cord edema Ringing in right ear Chronic hoarseness Globus sensation Vertigo Diverticulitis IBS (irritable bowel syndrome) Latent tuberculosis Rheumatoid arthritis Viral gastroenteritis Laceration of face Atrial flutter Asbestos exposure Tachycardia Abnormal ECG Preoperative testing Episodic confusion Allergic rhinitis Latent tuberculosis by blood test Restrictive lung disease Left sided abdominal pain Left shoulder strain Left groin pain Claustrophobia Chronic cough Cognitive complaints Edema of both lower extremities Decreased pedal pulses Non-healing ulcer of foot Decreased ROM of right shoulder Right shoulder pain Right shoulder injury Pes planus of both feet Skin lesion Impotence Low back pain Left against medical advice Memory loss Chronic SI joint pain Radiculopathy Neuropathic pain Leg pain, posterior Kidney stone Ingrown toenail of right foot Splinter of toe of left foot Pain of left great toe Cellulitis of great toe of right foot Acute bacterial bronchitis Incurved toenail Diabetes mellitus Onychomycosis Pain in both feet Callus of foot Diabetic foot ulcer Acute febrile illness SIRS (systemic inflammatory response syndrome) Left against medical advice Lower extremity edema Epistaxis Encounter for pre-operative cardiovascular clearance Sepsis Urinary incontinence Weakness Cellulitis, leg Obesity (BMI 30-39.9) Acute delirium Cellulitis Severe sepsis SIRS (systemic inflammatory response syndrome) Physical deconditioning Bacterial pneumonia Hypokalemia Bronchitis due to COVID-19 virus Pneumonia due to COVID-19 virus COVID-19 virus infection Exposure to COVID-19 virus Viral syndrome Acute bronchitis Hematuria Kidney stone on right side Multiple renal cysts Cough Diastolic dysfunction Mental status change resolved HTN (hypertension) Dyspnea SOB (shortness of breath) HHD (hypertensive heart disease) Pre-op evaluation Microalbuminuria Enlarged prostate History of IBS Diabetes Surgical History (Updated 03/08/25 @ 00:00 by Daylin Pisano) History of brachytherapy History of cardiac cath History of total right knee replacement History of rotator cuff surgery History of coronary artery stent placement History of cholecystectomy Hx of total knee arthroplasty Family History Other Cancer Cerebral palsy Dementia Diabetes Social History (Updated 03/08/25 @ 02:32 by Wanda Torre RN) Smoking Status: Never smoker alcohol intake: never counseling provided: none substance use type: denies use current occupational status: employed and retired Travel in the last 8 weeks?: None household members: spouse housing: house caffeine: Yes Have you lived/traveled outside [place] in past 30 days?: No Contact w/someone who lives/traveled outside [place] past 30 days?: No Exposure to someone with infectious disease in past 14 days?: No Do you have a fever (greater than 100.4 F or 38 C)?: No Have you tested positive for COVID-19?: No Exposed to someone with COVID-19 in past 14 days?: No Do you have a sore throat?: No Do you have a cough?: No Do you have any weakness?: No Are you experiencing any nausea/vomitting?: No Do you have any diarrhea?: No Are you experiencing any unusual bleeding?: No Do you have any muscle aches/pain?: No Do you have any abdominal pain?: No Are you experiencing loss of taste or smell?: No Review of Systems Constitutional Constitutional: Reports weakness ENT Ears, Nose, Mouth, and Throat: Denies dizziness *Neurologic Neurologic: Denies confusion, Denies dizziness and Reports weakness Psychiatric Psychiatric: Denies confusion Exam Data for Last 24 hours Vital signs and Labs for Last 24 Hours: Temp Pulse Resp BP Pulse Ox O2 Del Method 97.7 F 86 20 139/69 97 Room Air 03/10/25 08:00 03/10/25 08:00 03/10/25 08:00 03/10/25 08:00 03/10/25 08:00 03/10/25 09:15 Laboratory Results - last 24 hr 03/09/25 09:00: Blood Type A Positive, Antibody Screen Negative, Crossmatch (AHG) See Detail 03/09/25 11:25: POC Glucose 137 H 03/09/25 15:15: Hgb 9.9 L D, Hct 31.0 L 03/09/25 16:53: POC Glucose 159 H 03/09/25 20:40: POC Glucose 174 H 03/10/25 06:29: WBC 2.3 L, RBC 4.27 L, Hgb 9.5 L, Hct 29.2 L, MCV 68.4 L, MCH 22.2 L, MCHC 32.5, RDW 21.1 H, Plt Count 208, MPV 9.1, Neut % (Auto) 65.4, Lymph % (Auto) 17.9, [place] % (Auto) 12.4 H, Eos % (Auto) 3.4, Baso % (Auto) 0.9, Neut # (Auto) 1.5 L, Lymph # (Auto) 0.4 L, [place] # (Auto) 0.3, Eos # (Auto) 0.1, Baso # (Auto) 0.0, Total Counted 100, Neutrophils % (Manual) 69, Lymphocytes % (Manual) 18, Monocytes % (Manual) 9, Eosinophils % (Manual) 4 H, Platelet Estimate Normal, Hypochromasia 1+, Sodium 133 L, Potassium 2.9 L*, Chloride 104, Carbon Dioxide 24, Anion Gap 7.9, BUN 11, Creatinine 1.20, Estimated Creat Clear 67, Estimated GFR 60, Est GFR ( Amer) 72, Glucose 167 H D, Calcium 8.3 L, Magnesium 1.7 D, Total Bilirubin 0.7, AST 54, ALT 35, Alkaline Phosphatase 85, Total Protein 6.8, Albumin 3.7, Globulin 3.1, Albumin/Globulin Ratio 1.2 03/10/25 06:46: POC Glucose 188 H I & O for Last 24 hours: Intake & Output 03/07/25 03/08/25 03/09/25 03/10/25 23:59 23:59 23:59 23:59 Intake Total 2060 / 2300 1055 / 1295 290 / 290 Output Total 260 / 260 0 / 0 0 / 0 Balance 1800 / 2040 1055 / 1295 290 / 290 Weight 195 lb 182 lb 12.811 oz 188 lb 15.931 oz 187 lb 14.4 oz Microbiology Reports for the Last 24 Hours: Microbiology 03/09/25 06:00 Sputum - Expectorated Sputum Gram Stain - Final 03/09/25 06:00 Sputum - Expectorated Sputum Sputum Culture - Preliminary Meds Home Medications and Allergies Home Medications ?Medication ?Instructions ?Recorded ?Confirmed ?Type atorvastatin 40 mg tablet 40 mg PO HS 30 days #90 tabs 06/25/24 03/08/25 Rx omeprazole 40 mg capsule,delayed 40 mg PO DAILY 07/30/24 03/08/25 History release folic acid 1 mg tablet 1 mg PO DAILY #90 tabs 08/05/24 03/08/25 Rx clopidogrel 75 mg tablet 75 mg PO DAILY #90 tabs 11/06/24 03/08/25 Rx tramadol 50 mg tablet 100 mg PO TIDP PRN Moderate Pain 12/23/24 03/08/25 History (Scale Score 5-6) dapagliflozin propanediol 10 mg 10 mg PO DAILY #90 tabs 12/25/24 03/08/25 Rx tablet (Farxiga) fluticasone propionate 50 2 spray intranasal BID 90 days #90 12/26/24 03/08/25 Rx mcg/actuation nasal grams spray,suspension (Flonase Allergy Relief) Humalog Mix 75-25 KwikPen U-100 20 unit (0.2 mL) SQ BID #45 mL 02/03/25 03/08/25 Rx insulin 100 unit/mL subcutaneous pen (insulin lispro protamin-lispro) cilostazol 100 mg tablet 100 mg PO BID 02/18/25 03/08/25 History finerenone 20 mg tablet 20 mg PO DAILY 02/18/25 03/08/25 History Mounjaro 2.5 mg/0.5 mL 2.5 mg (0.5 mL) SQ WEEKLY 3 months 02/24/25 03/08/25 Rx subcutaneous pen injector #6 mL (tirzepatide) Held on 03/06/25. Instructions: until completes PO antibiotics albuterol sulfate 90 mcg/actuation 2 puff inhalation Q4HP PRN 03/04/25 03/08/25 History aerosol inhaler Shortness Of Breath cyclobenzaprine 10 mg tablet 10 mg PO Q8HP PRN muscle spasm 03/04/25 03/08/25 History famotidine 40 mg tablet 40 mg PO HS 03/04/25 03/08/25 History lidocaine 5 % topical patch 1 patch topical DAILY 03/04/25 03/08/25 History metformin 1,000 mg tablet 1,000 mg PO BIDWMEAL 03/04/25 03/08/25 History metoprolol succinate 50 mg 50 mg PO DAILY 03/04/25 03/08/25 History tablet,extended release 24 hr ondansetron HCl 4 mg tablet 4 mg PO Q8HP PRN nausea and 03/04/25 03/08/25 History vomiting tamsulosin 0.4 mg capsule 0.4 mg PO HS 03/04/25 03/08/25 History amiodarone 200 mg tablet 400 mg (2 x 200 mg) PO BID 30 days 03/06/25 03/08/25 Rx #120 tabs bumetanide 1 mg tablet 1 mg PO BIDL #60 tabs 03/06/25 03/08/25 Rx potassium chloride 20 mEq 20 meq PO DAILY #30 tabs 03/06/25 03/08/25 Rx tablet,extended release (K-Tab) rivaroxaban 15 mg tablet (Xarelto) 15 mg PO DAILY 30 days #0 tabs 03/06/25 03/08/25 Rx finerenone 20 mg tablet (Kerendia) 10 mg PO DAILY 03/08/25 03/08/25 History vancomycin 50 mg/mL oral solution 125 mg PO QID 03/08/25 03/08/25 History (Firvanq) New Prescriptions to Start Prescriptions: Allergies Allergy/AdvReac Type Severity Reaction Status Date / Time Penicillins (PENICILLINS) Allergy Unknown I-ITCHING Verified 03/04/25 10:57 Assessment and Plan *Assessment and plan (1) History of brachytherapy: Status: Acute Category: Surgical Code(s): Z92.3 - Personal history of irradiation (2) GUILLERMO (acute kidney injury): Status: Acute Category: Medical Code(s): N17.9 - Acute kidney failure, unspecified (3) Pre-syncope: Status: Acute Category: Medical Code(s): R55 - Syncope and collapse (4) Weakness: Status: Acute Category: Medical Code(s): R53.1 - Weakness (5) C. difficile diarrhea: Status: Acute Category: Medical Code(s): A04.72 - Enterocolitis due to Clostridium difficile, not specified as recurrent Plan Weakness Presyncope GUILLERMO Recent C diff diarrhea Continue to hold diuretics GUILLERMO improving. Defer to primary care CAD Recent brachytherapy Brachytherapy 1 week ago Continue ciostazol, plavix and lipitor Hx of atrial flutter Currently remains in NSR Continue amiodarone at 200mg po BID Continue xarelto 03/10/2025: Patient is CV stable. Please have patient follow-up in cardiology clinic on with Dr. Maloney. He can hold the Bumex until follow-up in cardiology clinic Cardiac meds Amiodarone 200 mg p.o. twice daily Atorvastatin 40 mg p.o. daily Pletal 100 mg p.o. twice daily Xarelto 50 mg p.o. daily Plavix 75 mg p.o. daily Toprol XL 50 mg p.o. daily Farxiga 10 mg p.o. daily Sirolimus 1mg 3 times daily
[2025-03-10] MEDS: FERROUS SULFATE 325MG TABLET 325 MG PO (11:35)
[2025-03-10] MEDS: IRON SUCROSE COMPLEX 200 MG in 0.9 % SODIUM CHLORIDE 100 ML 220 MG IV (11:35)
[2025-03-10 11:51] LABS: POC Glucose,Bedside 121 gm/dL (70-110)
[2025-03-10 12:00] VITALS: BP 119/81; PULSE 83; PULSE 90; RESP 18; TEMP 36.9; O2SAT 97
--- NOTE | 2025-03-10 12:55 | DIET.NUTRFU ---
Patient requested regular diet based on preferences, liberialized diet
--- NOTE | 2025-03-10 13:05 | SW/DCPLANNER ---
PT evaluated patient and recommended outpatient PT vs home health services. Patient is agreeable to outpatient PT and this will be arranged at discharge. Per MD patient may discharge later today or tomorrow.
[2025-03-10 16:00] VITALS: BP 135/72; PULSE 86; RESP 18; TEMP 36.4; O2SAT 100
--- NOTE | 2025-03-10 16:06 | EXP.ACUTE.PN ---
Subjective *Date: 03/10/25 *Time: 16:06 Interval history: Doing somewhat better today. Is not dizzy when he stands. No nausea or vomiting. No chest pain. Continues to have mild shortness of breath. No oxygen requirement. Afebrile. Medical Exam Vital signs and Labs for Last 24 Hours: Vital Signs Temp Pulse Pulse Resp BP Pulse Ox O2 Del Method 03/10/25 15:00 Room Air 03/10/25 13:00 Room Air 03/10/25 12:00 90 03/10/25 12:00 98.5 F 83 18 119/81 97 Room Air 03/10/25 11:00 Room Air 03/10/25 09:15 Room Air 03/10/25 08:00 90 03/10/25 08:00 97.7 F 86 20 139/69 97 Room Air 03/10/25 07:50 Room Air 03/10/25 05:00 Room Air 03/10/25 04:00 70 03/10/25 04:00 97.9 F 44 L 18 134/78 98 Room Air 03/10/25 03:00 Room Air 03/10/25 01:00 Room Air 03/10/25 00:00 70 03/10/25 00:00 97.8 F 78 16 136/75 96 Room Air 03/09/25 23:00 Room Air 03/09/25 21:00 Room Air 03/09/25 20:00 80 03/09/25 20:00 Room Air 03/09/25 19:43 97.8 F 79 16 113/68 100 Room Air 03/09/25 18:42 Room Air 03/09/25 17:00 Room Air Intake and Output 03/10/25 03/10/25 03/10/25 07:59 15:59 23:59 Intake Total 240 / 1190 950 / 1190 Output Total 0 / 0 0 / 0 Balance 240 / 1190 950 / 1190 Intake: Intake, Oral Amount 240 / 980 740 / 980 Intake, Total IV Amount 210 / 210 Iron Sucrose Complex 200 mg In 110 / 110 0.9 % Sodium Chloride 100 ml @ 220 mls/hr IV ONCE ONE Rx#: [id number] Magnesium Sulfate in Water 2 gm 100 / 100 In 50 ml @ 50 mls/hr IV Q1H [facility] Rx#:[id number] Output: Output, Urine Amount 0 / 0 0 / 0 Other: Number of Unmeasured Voids 1 1 Number of Bowel Movements 1 Weight 85.23 kg Patient Weight 03/10/25 23:59 Weight 85.23 kg Laboratory Results - last 24 hr 03/09/25 15:15: Hgb 9.9 L D 03/09/25 16:53: POC Glucose 159 H 03/09/25 20:40: POC Glucose 174 H 03/10/25 06:29: WBC 2.3 L, RBC 4.27 L, Hgb 9.5 L, Hct 29.2 L, MCV 68.4 L, MCH 22.2 L, MCHC 32.5, RDW 21.1 H, Plt Count 208, MPV 9.1, Neut % (Auto) 65.4, Lymph % (Auto) 17.9, [place] % (Auto) 12.4 H, Eos % (Auto) 3.4, Baso % (Auto) 0.9, Neut # (Auto) 1.5 L, Lymph # (Auto) 0.4 L, [place] # (Auto) 0.3, Eos # (Auto) 0.1, Baso # (Auto) 0.0, Total Counted 100, Neutrophils % (Manual) 69, Lymphocytes % (Manual) 18, Monocytes % (Manual) 9, Eosinophils % (Manual) 4 H, Platelet Estimate Normal, Hypochromasia 1+, Sodium 133 L, Potassium 2.9 L*, Chloride 104, Carbon Dioxide 24, Anion Gap 7.9, BUN 11, Creatinine 1.20, Estimated Creat Clear 67, Estimated GFR 60, Est GFR ( Amer) 72, Glucose 167 H D, Calcium 8.3 L, Magnesium 1.7 D, Total Bilirubin 0.7, AST 54, ALT 35, Alkaline Phosphatase 85, Total Protein 6.8, Albumin 3.7, Globulin 3.1, Albumin/Globulin Ratio 1.2 03/10/25 06:46: POC Glucose 188 H 03/10/25 11:42: POC Glucose 121 H I & O for Labs for Last 24 Hours: Intake & Output 03/07/25 03/08/25 03/09/25 03/10/25 23:59 23:59 23:59 23:59 Intake Total 2060 / 2300 1055 / 1295 1190 / 1190 Output Total 260 / 260 0 / 0 0 / 0 Balance 1800 / 2040 1055 / 1295 1190 / 1190 Weight 88.451 kg 82.917 kg 85.727 kg 85.23 kg Microbiology Reports for the Last 24 Hours: Microbiology 03/09/25 06:00 Sputum - Expectorated Sputum Gram Stain - Final 03/09/25 06:00 Sputum - Expectorated Sputum Sputum Culture - Preliminary Constitutional: Present no acute distress, obese, chronically ill appearing and cooperative Head: Present atraumatic and normocephalic ENT: Present normal exam Respiratory: Present normal respiratory effort; Absent rhonchi, wheezes or crackles Comment:: Irregularly irregular, rate controlled GI: Present soft; Absent distention or tenderness Extremities: Present normal inspection, full ROM and edema (3+ to knees bilaterally, right worse than left) Comment:: Mild erythema of anterior shins that appears chronic Skin: Present intact and erythema (Mild on anterior shins bilaterally) Neuro: Present Grossly Intact, alert, awake, oriented x 3 and moves all extremities Assessment and Plan *Assessment and plan (1) GUILLERMO (acute kidney injury): Status: Acute Category: Medical Code(s): N17.9 - Acute kidney failure, unspecified (2) Pre-syncope: Status: Acute Category: Medical Code(s): R55 - Syncope and collapse (3) Weakness: Status: Acute Category: Medical Code(s): R53.1 - Weakness (4) High anion gap metabolic acidosis: Status: Acute Category: Medical Code(s): E87.29 - Other acidosis (5) Hypokalemia: Status: Acute Category: Medical Code(s): E87.6 - Hypokalemia (6) Nausea vomiting and diarrhea: Status: Acute Category: Medical Code(s): R11.2 - Nausea with vomiting, unspecified; R19.7 - Diarrhea, unspecified (7) History of brachytherapy: Status: Acute Category: Surgical Code(s): Z92.3 - Personal history of irradiation (8) T2DM (type 2 diabetes mellitus): Problem Comment: On tirzepatide Status: Chronic Qualifiers: Diabetes mellitus long-term insulin use: without terminal block assembler use Diabetes mellitus complication status: with circulatory complication Diabetes mellitus complication detail: with other circulatory complications Qualified Code(s): E11.59 - Type 2 diabetes mellitus with other circulatory complications Category: Medical Code(s): E11.9 - Type 2 diabetes mellitus without complications (9) CAD (coronary artery disease): Problem Comment: Recent stent procedure 10/2024 Status: Chronic Qualifiers: Coronary Disease-Associated Artery/Lesion type: [place] artery [place] vs. transplanted heart: [place] heart Associated angina: without angina Qualified Code(s): I25.10 - Atherosclerotic heart disease of [place] coronary artery without angina pectoris Category: Medical Code(s): I25.10 - Atherosclerotic heart disease of [place] coronary artery without angina pectoris (10) HLD (hyperlipidemia): Status: Chronic Qualifiers: Hyperlipidemia type: mixed hyperlipidemia Qualified Code(s): E78.2 - Mixed hyperlipidemia Category: Medical Code(s): E78.5 - Hyperlipidemia, unspecified (11) HTN (hypertension): Status: Chronic Qualifiers: Hypertension type: essential hypertension Qualified Code(s): I10 - Essential (primary) hypertension Category: Medical Code(s): I10 - Essential (primary) hypertension (12) Iron deficiency anemia: Status: Chronic Qualifiers: Iron deficiency anemia type: unspecified iron deficiency Qualified Code(s): D50.9 - Iron deficiency anemia, unspecified Category: Medical Code(s): D50.9 - Iron deficiency anemia, unspecified (13) Atrial flutter: Problem Comment: On Mary Status: Resolved Qualifiers: Atrial flutter type: typical Qualified Code(s): I48.3 - Typical atrial flutter Category: Medical Code(s): I48.92 - Unspecified atrial flutter (14) C. difficile diarrhea: Status: Acute Category: Medical Code(s): A04.72 - Enterocolitis due to Clostridium difficile, not specified as recurrent Plan Patient presents with near syncopal episodes at home. He denies injuries from these falls and no loss of consciousness. Was recently started on diuretics as well as amiodarone for heart failure and atrial flutter. He has also had nausea vomiting and diarrhea from C. difficile colitis. After discussion with the ER physician I agreed to accept this patient for admission. He received 1 L of fluid in the ER. Will hold off on any further fluid due to his recent episode of heart failure. PT and OT evaluating. Given his orthostatics and continued shaky legs when standing, along with complaint of shortness of breath, concern his anemia is symptomatic. Will transfuse 1 unit today for goal hemoglobin greater than 9. Continues to require inpatient management. Repeat orthostatic blood pressures today. Problems addressed as follows: GUILLERMO Presyncope - suspect this may be due to mild dehydration with the addition of Bumex. - Continue to hold diuretics. GUILLERMO improving, back to baseline at 1.2. No further IV fluids. Holding on diuretics at discharge. - Blood pressure stabilized - Working with therapy. Recommend outpatient PT C. difficile diarrhea: Continue vancomycin p.o. 125 mg 4 times a day Hypokalemia: Potassium 2.9, replace per protocol. Will need supplementation at discharge. Diabetes mellitus type 2?low-dose sliding scale insulin coverage. Doing Mounjaro and metformin while admitted, resumed insulin 75/25 at reduced dose of 15 units twice daily CAD/HLD/HTN/brachytherapy HF PEF Atrial flutter - Monitor on telemetry. EKG in the ER shows a sinus rhythm. - underwent brachytherapy about 1 week ago. Amiodarone decreased to 200 mg twice daily, Lipitor 80 mg nightly, cilostazol 100 twice, Plavix 75 mg daily, finerenone 10 mg daily - Discussed case with cardiology today, recommend the following meds at discharge. Will have close follow-up as an outpatient. Cardiac meds Amiodarone 200 mg p.o. twice daily Atorvastatin 40 mg p.o. daily Pletal 100 mg p.o. twice daily Xarelto 50 mg p.o. daily Plavix 75 mg p.o. daily Toprol XL 50 mg p.o. daily Farxiga 10 mg p.o. daily Sirolimus 1mg 3 times daily - Given the patient's significant interactions with the healthcare system over the past month, multiple changes in meds, request that he bring his home meds and for us to go over and clarify what he needs to take and what he should not take at this time to decrease risk for polypharmacy and adverse medication event. - May benefit from consideration for Watchman device given his main symptom is shortness of breath and his anemia has gotten worse. Concern is anemia worsening is related to anticoagulation for his A-fib. Will defer to cardiology as an outpatient. Leukopenia/anemia History of iron deficiency anemia?positive findings on peripheral smear. Anemia workup reveals iron deficiency with an iron level of 26 and iron saturation of 7.69, ferritin 40.4 and TIBC 338. - White count low at 2.3. Hemoglobin improved after transfusion at 9.5. Hemoglobin in June began to drop from 14-11 and has had steady drop since. MCV went from 80-67 in that timeframe. Will administer second dose of IV iron today. Status posttransfusion of 1 unit packed red blood cells due to symptomatic anemia. Would benefit from continuing oral iron at discharge. - Consider outpatient workup for anemia including endoscopy, deferred to the outpatient setting. - Reticulocyte count low on admission. Follows with hematology as an outpatient. - Repeat CBC, CMP ordered for the morning Full code Xarelto Diabetic/cardiac diet
[2025-03-10 16:18] LABS: POC Glucose,Bedside 149 gm/dL (70-110)
--- NOTE | 2025-03-10 17:12 | PC.NURSE ---
VS stable, patient remained on room air. Patient refusing bed alarm during shift. No pain reported.
[2025-03-10 18:09] VITALS: BMI 26.3
[2025-03-10 19:23] VITALS: BP 127/72; PULSE 85; RESP 16; TEMP 36.5; O2SAT 99
[2025-03-10] MEDS: ATORVASTATIN 40MG TABLET 40 MG PO (21:02)
[2025-03-10] MEDS: TAMSULOSIN 0.4MG CAPSULE 0.4 MG PO (21:02)
[2025-03-10] MEDS: FAMOTIDINE 20MG TABLET 40 MG PO (21:02)
[2025-03-10] MEDS: PANTOPRAZOLE 40MG TABLET 40 MG PO (21:02)
[2025-03-10 21:16] LABS: POC Glucose,Bedside 224 gm/dL (70-110)
[2025-03-11] MEDS: ACETAMINOPHEN 325MG TAB 650 MG PO ×2 (01:38→10:53)
[2025-03-11 03:53] VITALS: BMI 26.3
[2025-03-11 04:00] VITALS: BP 135/73; PULSE 82; RESP 16; TEMP 36.7; O2SAT 99
[2025-03-11 06:40] LABS: Hematocrit 30.8 % (42.0-52.0); Hemoglobin 9.6 g/dL (14.1-18.0); Immature Granulocytes % 0.4 %; Mean Corpuscular HGB Conc 31.2 g/dL (31.8-35.4); Mean Corpuscular Hemoglobin 21.3 pg (27.0-31.2); Mean Corpuscular Volume 68.3 fl (80-94); Nucleated Red Blood Cells % 0 %; Platelet Count 228 K/mm3 (142-424); Red Blood Count 4.51 M/mm3 (4.60-6.20); Red Cell Distribution Width-SD 52.4 fL; White Blood Count 2.6 K/mm3 (4.8-10.8)
[2025-03-11 07:09] LABS: Albumin Level 3.6 g/dl (3.5-5.0); Chloride 106 mmol/L (98-107); Potassium 3.2 mmoL/L (3.5-5.1); Sodium 131 mmol/L (136-145)
[2025-03-11 07:12] LABS: Alanine Aminotransferase 36 U/L (12-78); Albumin/Globulin Ratio 1.1 (1.1-1.8); Alkaline Phosphatase 96 U/L (38-126); Anion Gap 7.2 mEq/L (5-15); Aspartate Amino Transferase 53 U/L (17-59); Bilirubin,Total 0.8 mg/dl (0.2-1.3); Blood Urea Nitrogen 10 mg/dl (9-20); Calcium 8.1 mg/dl (8.4-10.2); Carbon Dioxide 21 mmol/L (22.0-30.0); Creatinine Clearance Estimated 62 mL/min (50-200); Creatinine,Serum 1.30 mg/dl (0.66-1.25); Estimated Glomerular Filt Rate 54 ml/min (>60); GFR (African American) 66 ML/MIN (>60); Globulin 3.3 g/dL (1.3-3.2); Glucose 120 mg/dl (74-100); Total Protein,Serum 6.9 g/dl (6.3-8.2)
[2025-03-11 07:46] LABS: Total Cells Counted 100
[2025-03-11 07:47] LABS: Poikilocytosis 1+
[2025-03-11 08:00] VITALS: BP 121/66; PULSE 89; RESP 16; TEMP 36.5; O2SAT 100
[2025-03-11 08:02] LABS: Magnesium 2.1 mg/dl (1.6-2.3)
[2025-03-11] MEDS: CLOPIDOGREL 75MG TAB 75 MG PO (09:13)
[2025-03-11] MEDS: VANCOMYCIN HCL 50MG/ML 150ML KIT 125 MG PO ×2 (09:13→11:59)
[2025-03-11] MEDS: FERROUS SULFATE 325MG TABLET 325 MG PO (09:13)
[2025-03-11] MEDS: CILOSTAZOL 100MG TABLET 100 MG PO (09:13)
[2025-03-11] MEDS: AMIODARONE 200MG TABLET 200 MG PO (09:13)
[2025-03-11] MEDS: POTASSIUM CHLORIDE 20MEQ TAB 40 MEQ PO ×2 (09:14→11:56)
[2025-03-11] MEDS: humaLOG MIX 75/25 3ML FLEXPEN 15 UNIT SUBCUT (09:17)
[2025-03-11 09:35] LABS: POC Glucose,Bedside 206 gm/dL (70-110)
--- NOTE | 2025-03-11 10:38 | [facility].PHAAMS2 ---
- Antimicrobial Stewardship Review culture & sensitivity review Stewardship interventions: culture & sensitivity review (CURRENTLY RECEIVING VANCOMYCIN PO FOR C DIFF, AFEBRILE, WBC LOW TO NORMAL, CX PENDING OR NO GROWTH.)
--- NOTE | 2025-03-11 11:26 | EXP.DC.SUM ---
General Admission date:: 03/08/25 HPI HPI HPI: 74-year-old male patient presents to ER after several falls throughout the day. He states that his arms and legs began to shake and then they give out and he falls. He denies loss of consciousness. Denies injuries. Does not appear to be orthostatic based on his description. He denies chest pain but does have more shortness of breath than normal for him. He has had some nausea vomiting and diarrhea. He was discharged from the hospital with oral vancomycin. Previously had had some hypokalemia that has improved slightly to 3.1. He was found to have an elevated anion gap as well as creatinine. His checked his blood pressure and his blood sugar at home when these episodes happen and both were in normal range. Underwent brachytherapy with a coronary stent 1 week ago. Was then admitted to this hospital on 03/04 and discharged on 03/06 for sepsis due to C. difficile colitis and atrial flutter. He was also treated for diastolic heart failure and an NSTEMI. New meds at discharge were amiodarone, bumetanide, potassium and oral vancomycin. On 1211 his weight was 88.45 kg and today it is 82.92 kg. Hospital Course Hospital Course Hospital Course: Patient presents with near syncopal episodes at home. He denies injuries from these falls and no loss of consciousness. Was recently started on diuretics as well as amiodarone for heart failure and atrial flutter. He has also had nausea vomiting and diarrhea from C. difficile colitis. He received 1 L of fluid in the ER. Will hold off on any further fluid due to his recent episode of heart failure. GUILLERMO Presyncope - Likely overdiuresed with Bumex, discontinued. Initial creatinine 1.8, improved to 1.3. ? Discussed with cardiology, will hold off on further diuretics at this time until follow-up with cardiology within 2 weeks. C. difficile diarrhea: Continue vancomycin p.o. 125 mg 4 times a day for total 10 days. Hypokalemia: Potassium 2.9, replace per protocol. Increased home potassium to 40 mill equivalents daily, continue home Kerendia. Diabetes mellitus type 2?continue home regimen. CAD/HLD/HTN/brachytherapy HF PEF Atrial flutter - underwent brachytherapy about 1 week ago. Amiodarone decreased to 200 mg twice daily, Lipitor 80 mg nightly, cilostazol 100 twice, Plavix 75 mg daily, finerenone 10 mg daily - Discussed case with cardiology today, recommend the following meds at discharge. Will have close follow-up as an outpatient. Cardiac meds Amiodarone 200 mg p.o. twice daily Atorvastatin 40 mg p.o. daily Pletal 100 mg p.o. twice daily Xarelto 50 mg p.o. daily Plavix 75 mg p.o. daily Toprol XL 50 mg p.o. daily Farxiga 10 mg p.o. daily Sirolimus 1mg 3 times daily - May benefit from consideration for Watchman device given his main symptom is shortness of breath and his anemia has gotten worse. Concern is anemia worsening is related to anticoagulation for his A-fib. Will defer to cardiology as an outpatient. Leukopenia/anemia History of iron deficiency anemia?positive findings on peripheral smear. Anemia workup reveals iron deficiency with an iron level of 26 and iron saturation of 7.69, ferritin 40.4 and TIBC 338. -Received 2 doses of IV Venofer 200 mg. Discharged with ferrous sulfate 325 mg daily. MiraLAX as needed for constipation. Exam Data for Last 24 hours Vital signs and Labs for Last 24 Hours: Temp Pulse Resp BP Pulse Ox O2 Del Method 97.7 F 89 16 121/66 100 Room Air 03/11/25 08:00 03/11/25 08:00 03/11/25 08:00 03/11/25 08:00 03/11/25 08:00 03/11/25 11:00 Laboratory Results - last 24 hr 03/10/25 11:42: POC Glucose 121 H 03/10/25 16:11: POC Glucose 149 H 03/10/25 20:59: POC Glucose 224 H 03/11/25 06:17: WBC 2.6 L, RBC 4.51 L, Hgb 9.6 L, Hct 30.8 L, MCV 68.3 L, MCH 21.3 L, MCHC 31.2 L, RDW 21.5 H, Plt Count 228, MPV 9.1, Neut % (Auto) 68.0, Lymph % (Auto) 16.4, N[place]oll[place] % (Auto) 12.5 H, Eos % (Auto) 2.3, Baso % (Auto) 0.4, Neut # (Auto) 1.7 L, Lymph # (Auto) 0.4 L, [place]oll[place] # (Auto) 0.3, Eos # (Auto) 0.1, Baso # (Auto) 0.0, Total Counted 100, Neutrophils % (Manual) 67, Lymphocytes % (Manual) 21, Monocytes % (Manual) 9, Eosinophils % (Manual) 3, Platelet Estimate Normal, Poikilocytosis 1+, Sodium 131 L, Potassium 3.2 L, Chloride 106, Carbon Dioxide 21 L, Anion Gap 7.2, BUN 10, Creatinine 1.30 H, Estimated Creat Clear 62, Estimated GFR 54 L, Est GFR ( Amer) 66, Glucose 120 H D, Calcium 8.1 L, Magnesium 2.1 D, Total Bilirubin 0.8, AST 53, ALT 36, Alkaline Phosphatase 96, Total Protein 6.9, Albumin 3.6, Globulin 3.3 H, Albumin/Globulin Ratio 1.1 03/11/25 09:23: POC Glucose 206 H Temp Pulse Resp BP Pulse Ox O2 Del Method 97.7 F 86 20 139/69 97 Room Air 03/10/25 08:00 03/10/25 08:00 03/10/25 08:00 03/10/25 08:00 03/10/25 08:00 03/10/25 09:15 Laboratory Results - last 24 hr 03/09/25 09:00: Blood Type A Positive, Antibody Screen Negative, Crossmatch (AHG) See Detail 03/09/25 11:25: POC Glucose 137 H 03/09/25 15:15: Hgb 9.9 L D, Hct 31.0 L 03/09/25 16:53: POC Glucose 159 H 03/09/25 20:40: POC Glucose 174 H 03/10/25 06:29: WBC 2.3 L, RBC 4.27 L, Hgb 9.5 L, Hct 29.2 L, MCV 68.4 L, MCH 22.2 L, MCHC 32.5, RDW 21.1 H, Plt Count 208, MPV 9.1, Neut % (Auto) 65.4, Lymph % (Auto) 17.9, Nuckolls % (Auto) 12.4 H, Eos % (Auto) 3.4, Baso % (Auto) 0.9, Neut # (Auto) 1.5 L, Lymph # (Auto) 0.4 L, Nuckolls # (Auto) 0.3, Eos # (Auto) 0.1, Baso # (Auto) 0.0, Total Counted 100, Neutrophils % (Manual) 69, Lymphocytes % (Manual) 18, Monocytes % (Manual) 9, Eosinophils % (Manual) 4 H, Platelet Estimate Normal, Hypochromasia 1+, Sodium 133 L, Potassium 2.9 L*, Chloride 104, Carbon Dioxide 24, Anion Gap 7.9, BUN 11, Creatinine 1.20, Estimated Creat Clear 67, Estimated GFR 60, Est GFR ( Amer) 72, Glucose 167 H D, Calcium 8.3 L, Magnesium 1.7 D, Total Bilirubin 0.7, AST 54, ALT 35, Alkaline Phosphatase 85, Total Protein 6.8, Albumin 3.7, Globulin 3.1, Albumin/Globulin Ratio 1.2 03/10/25 06:46: POC Glucose 188 H I & O for Last 24 hours: Intake & Output 03/08/25 03/09/25 03/10/25 03/11/25 23:59 23:59 23:59 23:59 Intake Total 2059 1055 / 1295 1430 / 1430 540 / 540 Output Total 260 / 260 0 / 0 1100 / 1100 600 / 600 Balance 1799 1055 / 1295 330 / 330 -60 / -60 Weight 82.917 kg 85.727 kg 85.275 kg 85.275 kg Intake & Output 03/07/25 03/08/25 03/09/25 03/10/25 23:59 23:59 23:59 23:59 Intake Total 2059 1055 / 1295 290 / 290 Output Total 260 / 260 0 / 0 0 / 0 Balance 17990 1055 / 1295 290 / 290 Weight 195 lb 182 lb 12.811 oz 188 lb 15.931 oz 187 lb 14.4 oz Microbiology Reports for the Last 24 Hours: Microbiology 03/09/25 06:00 Sputum - Expectorated Sputum Gram Stain - Final 03/09/25 06:00 Sputum - Expectorated Sputum Sputum Culture - Final Microbiology 03/09/25 06:00 Sputum - Expectorated Sputum Gram Stain - Final 03/09/25 06:00 Sputum - Expectorated Sputum Sputum Culture - Preliminary Results Data Completed and Pending Labs on day of discharge: Labs from last 24 hours 03/11/25 03/11/25 03/10/25 09:23 06:17 20:59 WBC 2.6 L RBC 4.51 L Hgb 9.6 L Hct 30.8 L MCV 68.3 L MCH 21.3 L MCHC 31.2 L RDW 21.5 H Plt Count 228 MPV 9.1 Neut % (Auto) 68.0 Lymph % (Auto) 16.4 Nuckolls % (Auto) 12.5 H Eos % (Auto) 2.3 Baso % (Auto) 0.4 Neut # (Auto) 1.7 L Lymph # (Auto) 0.4 L [place]olls # (Auto) 0.3 Eos # (Auto) 0.1 Baso # (Auto) 0.0 Total Counted 100 Neutrophils % (Manual) 67 Lymphocytes % (Manual) 21 Monocytes % (Manual) 9 Eosinophils % (Manual) 3 Platelet Estimate Normal Poikilocytosis 1+ Sodium 131 L Potassium 3.2 L Chloride 106 Carbon Dioxide 21 L Anion Gap 7.2 BUN 10 Creatinine 1.30 H Estimated Creat Clear 62 Estimated GFR 54 L Est GFR ( Amer) 66 Glucose 120 H D POC Glucose 206 H 224 H Calcium 8.1 L Magnesium 2.1 D Total Bilirubin 0.8 AST 53 ALT 36 Alkaline Phosphatase 96 Total Protein 6.9 Albumin 3.6 Globulin 3.3 H Albumin/Globulin Ratio 1.1 03/10/25 03/10/25 16:11 11:42 WBC RBC Hgb Hct MCV MCH MCHC RDW Plt Count MPV Neut % (Auto) Lymph % (Auto) Nuckolls % (Auto) Eos % (Auto) Baso % (Auto) Neut # (Auto) Lymph # (Auto) [place]olls # (Auto) Eos # (Auto) Baso # (Auto) Total Counted Neutrophils % (Manual) Lymphocytes % (Manual) Monocytes % (Manual) Eosinophils % (Manual) Platelet Estimate Poikilocytosis Sodium Potassium Chloride Carbon Dioxide Anion Gap BUN Creatinine Estimated Creat Clear Estimated GFR Est GFR ( Amer) Glucose POC Glucose 149 H 121 H Calcium Magnesium Total Bilirubin AST ALT Alkaline Phosphatase Total Protein Albumin Globulin Albumin/Globulin Ratio DS: Diagnosis Discharge Diagnosis (1) GUILLERMO (acute kidney injury): Status: Acute Code(s): N17.9 - Acute kidney failure, unspecified (2) Pre-syncope: Status: Acute Code(s): R55 - Syncope and collapse (3) Weakness: Status: Acute Code(s): R53.1 - Weakness (4) High anion gap metabolic acidosis: Status: Acute Code(s): E87.29 - Other acidosis (5) Hypokalemia: Status: Acute Code(s): E87.6 - Hypokalemia (6) Nausea vomiting and diarrhea: Status: Acute Code(s): R11.2 - Nausea with vomiting, unspecified; R19.7 - Diarrhea, unspecified (7) History of brachytherapy: Status: Acute Code(s): Z92.3 - Personal history of irradiation (8) T2DM (type 2 diabetes mellitus): Status: Chronic Code(s): E11.9 - Type 2 diabetes mellitus without complications Qualifiers: Diabetes mellitus complication detail: with other circulatory complications Diabetes mellitus complication status: with circulatory complication Diabetes mellitus intermediate card tender insulin use: without intermediate card tender use Qualified Code(s): E11.59 - Type 2 diabetes mellitus with other circulatory complications Problem details: On tirzepatide (9) CAD (coronary artery disease): Status: Chronic Code(s): I25.10 - Atherosclerotic heart disease of [place] coronary artery without angina pectoris Qualifiers: Associated angina: without angina Coronary Disease-Associated Artery/Lesion type: [place] artery [place] vs. transplanted heart: [place] heart Qualified Code(s): I25.10 - Atherosclerotic heart disease of [place] coronary artery without angina pectoris Problem details: Recent stent procedure 10/2024 (10) HLD (hyperlipidemia): Status: Chronic Code(s): E78.5 - Hyperlipidemia, unspecified Qualifiers: Hyperlipidemia type: mixed hyperlipidemia Qualified Code(s): E78.2 - Mixed hyperlipidemia (11) HTN (hypertension): Status: Chronic Code(s): I10 - Essential (primary) hypertension Qualifiers: Hypertension type: essential hypertension Qualified Code(s): I10 - Essential (primary) hypertension (12) Iron deficiency anemia: Status: Chronic Code(s): D50.9 - Iron deficiency anemia, unspecified Qualifiers: Iron deficiency anemia type: unspecified iron deficiency Qualified Code(s): D50.9 - Iron deficiency anemia, unspecified (13) Atrial flutter: Status: Resolved Code(s): I48.92 - Unspecified atrial flutter Qualifiers: Atrial flutter type: typical Qualified Code(s): I48.3 - Typical atrial flutter Problem details: On Xarelto (14) C. difficile diarrhea: Status: Acute Code(s): A04.72 - Enterocolitis due to Clostridium difficile, not specified as recurrent Meds Home Medications and Allergies Home Medications ?Medication ?Instructions ?Recorded ?Confirmed ?Type atorvastatin 40 mg tablet 40 mg PO HS 30 days #90 tabs 06/25/24 03/08/25 Rx omeprazole 40 mg capsule,delayed 40 mg PO DAILY 07/30/24 03/08/25 History release folic acid 1 mg tablet 1 mg PO DAILY #90 tabs 08/05/24 03/08/25 Rx clopidogrel 75 mg tablet 75 mg PO DAILY #90 tabs 11/06/24 03/08/25 Rx tramadol 50 mg tablet 100 mg PO TIDP PRN Moderate Pain 12/23/24 03/08/25 History (Scale Score 5-6) dapagliflozin propanediol 10 mg 10 mg PO DAILY #90 tabs 12/25/24 03/08/25 Rx tablet (Farxiga) fluticasone propionate 50 2 spray intranasal BID 90 days #90 12/26/24 03/08/25 Rx mcg/actuation nasal grams spray,suspension (Flonase Allergy Relief) Humalog Mix 75-25 KwikPen U-100 20 unit (0.2 mL) SQ BID #45 mL 02/03/25 03/08/25 Rx insulin 100 unit/mL subcutaneous pen (insulin lispro protamin-lispro) cilostazol 100 mg tablet 100 mg PO BID 02/18/25 03/08/25 History finerenone 20 mg tablet 20 mg PO DAILY 02/18/25 03/08/25 History Mounjaro 2.5 mg/0.5 mL 2.5 mg (0.5 mL) SQ WEEKLY 3 months 02/24/25 03/08/25 Rx subcutaneous pen injector #6 mL (tirzepatide) albuterol sulfate 90 mcg/actuation 2 puff inhalation Q4HP PRN 03/04/25 03/08/25 History aerosol inhaler Shortness Of Breath cyclobenzaprine 10 mg tablet 10 mg PO Q8HP PRN muscle spasm 03/04/25 03/08/25 History famotidine 40 mg tablet 40 mg PO HS 03/04/25 03/08/25 History lidocaine 5 % topical patch 1 patch topical DAILY 03/04/25 03/08/25 History metformin 1,000 mg tablet 1,000 mg PO BIDWMEAL 03/04/25 03/08/25 History metoprolol succinate 50 mg 50 mg PO DAILY 03/04/25 03/08/25 History tablet,extended release 24 hr ondansetron HCl 4 mg tablet 4 mg PO Q8HP PRN nausea and 03/04/25 03/08/25 History vomiting tamsulosin 0.4 mg capsule 0.4 mg PO HS 03/04/25 03/08/25 History bumetanide 1 mg tablet 1 mg PO BIDL #60 tabs 03/06/25 03/08/25 Rx Held on 03/11/25. Instructions: Resume on 03/25/25. This medication likely caused dehydration, kidney injury. Please hold until follow-up with cardiology. rivaroxaban 15 mg tablet (Xarelto) 15 mg PO DAILY 30 days #0 tabs 03/06/25 03/08/25 Rx vancomycin 50 mg/mL oral solution 125 mg PO QID 03/08/25 03/08/25 History (Firvanq) amiodarone 200 mg tablet 200 mg PO BID 30 days #120 tabs 03/11/25 03/08/25 Rx ferrous sulfate 325 mg (65 mg 325 mg PO DAILY #30 tabs 03/11/25 Rx iron) tablet polyethylene glycol 3350 17 17 g PO DAILY #119 grams 03/11/25 Rx gram/dose oral powder (Miralax) potassium chloride 20 mEq 20 meq PO DAILY 30 days #30 tabs 03/11/25 Rx tablet,extended release(part/cryst) (Klor-Con M) New Prescriptions to Start Prescriptions: ferrous sulfate Jer Chacon polyethylene glycol 3350 [Miralax] Jer Chacon potassium chloride [Klor-Con M20] Jer Chacon Allergies Allergy/AdvReac Type Severity Reaction Status Date / Time Penicillins (PENICILLINS) Allergy Unknown I-ITCHING Verified 03/04/25 10:57 Discharge Plan Disposition Patient Disposition: Home, Self-Care Condition: Fair Follow up Plan Follow up with: Columba Rodríguez APRN [Primary Care Provider, Family Practice] - 04/02/25 1:00 pm Abiodun Mckeon MD [Staff Physician, Cardiology] - 03/13/25 1:15 pm Referral Note: needs appointment by end of the week with [facility] Prescriptions/Medication Reconciliation: New potassium chloride [Klor-Con M20] 20 mEq Tablet,Er Particles/Crystals 20 meq PO DAILY 30 Days Qty: 30 0RF ferrous sulfate 325 mg (65 mg iron) Tablet 325 mg PO DAILY Qty: 30 0RF polyethylene glycol 3350 [Miralax] 17 gram/dose powder 17 g PO DAILY Qty: 119 0RF Rx Instructions: Iron supplementation can cause constipation, use MiraLAX as needed for constipation. Continued tramadol 50 mg tablet 100 mg PO TIDP PRN (Reason: Moderate Pain (Scale Score 5-6)) fluticasone propionate [Flonase Allergy Relief] 50 mcg/actuation spray,suspension 2 spray intranasal BID 90 Days Qty: 90 3RF Rx Instructions: administer into each nostril dapagliflozin propanediol [Farxiga] 10 mg tablet 10 mg PO DAILY Qty: 90 3RF Mounjaro 2.5 mg/0.5 mL pen injector 2.5 mg SQ WEEKLY 90 Days Qty: 6 3RF cilostazol 100 mg tablet 100 mg PO BID finerenone 20 mg tablet 20 mg PO DAILY clopidogrel 75 mg tablet 75 mg PO DAILY Qty: 90 3RF insulin lispro protamin-lispro [Humalog Mix 75-25 KwikPen] 100 unit/mL (75-25) insulin pen 20 unit SQ BID Qty: 45 0RF atorvastatin 40 mg tablet 40 mg PO HS 30 Days Qty: 90 2RF omeprazole 40 mg capsule,delayed release(DR/EC) 40 mg PO DAILY folic acid 1 mg tablet 1 mg PO DAILY Qty: 90 0RF cyclobenzaprine 10 mg tablet 10 mg PO Q8HP PRN (Reason: muscle spasm) tamsulosin 0.4 mg capsule 0.4 mg PO HS metformin 1,000 mg tablet 1,000 mg PO BIDWMEAL albuterol sulfate 90 mcg/actuation HFA aerosol inhaler 2 puff inhalation Q4HP PRN (Reason: Shortness Of Breath) metoprolol succinate 50 mg tablet extended release 24 hr 50 mg PO DAILY ondansetron HCl 4 mg tablet 4 mg PO Q8HP PRN (Reason: nausea and vomiting) famotidine 40 mg tablet 40 mg PO HS lidocaine 5 % adhesive patch,medicated 1 patch topical DAILY Xarelto 15 mg tablet 15 mg PO DAILY 30 Days Qty: 0 0RF vancomycin [Firvanq] 50 mg/mL Recon Soln 125 mg PO QID Rx Instructions: STARTED 03/06/25, FOR 10 DAYS. Changed amiodarone 200 mg Tablet 200 mg PO BID 30 Days Qty: 120 0RF Held bumetanide 1 mg tablet 1 mg PO BIDL Qty: 60 0RF Hold Instructions: Resume on 03/25/25. This medication likely caused dehydration, kidney injury. Please hold until follow-up with cardiology. Discontinued potassium chloride [K-Tab] 20 mEq tablet extended release 20 meq PO DAILY Qty: 30 0RF Other Ambulatory Orders: Rehab Eval, OP (Routine) Timeframe: 1 Week Facility: [facility] - Location: Physical Therapy Ordered By: Jer Chacon Problem Reconciliation Problems Reviewed?: Yes Patient Discharge Instructions Patient Instructions: DI for Syncope in Adults (Fainting), DI for Muscle Weakness Print Language: Trinid[place] Providers Primary Care Provider: Columba Rodríguez Admit Provider: De Palacio Attending Provider: De Palacio
[2025-03-11 11:50] VITALS: BP 132/76; PULSE 84; RESP 18; TEMP 36.7; O2SAT 98
[2025-03-11 12:10] LABS: POC Glucose,Bedside 100 gm/dL (70-110)
--- NOTE | 2025-03-12 10:14 | SW/DCPLANNER ---
Spoke with patient on the phone. Patient stated that he is doing good other than last night he broke out into hives and has been itching. Patient stated that he is either going to call his PCP or Cardiology. Patient stated that he is aware of his upcoming appointments. Patient stated that he was able to get his new medicine picked up from the pharmacy. Patient stated that he has no concerns or questions at this time. Doug Camara
[2025-03-13 14:09] LABS: POC Glucose,Bedside 118 gm/dL (70-110)
[2025-03-13 14:09] LABS: POC Glucose,Bedside 187 gm/dL (70-110)
--- NOTE | 2025-04-08 14:37 | PC.NURSE ---
04/08/2025 Pt refered to pt. He will do first to build up his strength.
== END 2025-03-11 12:59 | disposition home or self-care (01) ==
LOC: ER 21:37 → 2ND 03-08 00:21
PROVIDERS: Nurse Practitioner; Nurse Practitioner Acute Care; Admitting Provider Internal Medicine Adolescent Medicine; Emergency Provider Student in an Organized Health Care Education/Training Program; PCP Family Medicine; Visit Provider Internal Medicine Adolescent Medicine
DX: N17.9 Acute kidney failure, unspecified (principal); R55 Syncope and collapse; R53.1 Weakness; E87.29 Other acidosis; E87.6 Hypokalemia; R11.2 Nausea with vomiting, unspecified; R19.7 Diarrhea, unspecified; Z92.3 Personal history of irradiation; E11.59 Type 2 diabetes mellitus with other circulatory complications; I25.10 Atherosclerotic heart disease of native coronary artery without angina pectoris; E78.2 Mixed hyperlipidemia; D50.9 Iron deficiency anemia, unspecified; I48.3 Typical atrial flutter; A04.72 Enterocolitis due to Clostridium difficile, not specified as recurrent; R53.81 Other malaise; I11.0 Hypertensive heart disease with heart failure; I50.30 Unspecified diastolic (congestive) heart failure; K21.9 Gastro-esophageal reflux disease without esophagitis; N40.0 Benign prostatic hyperplasia without lower urinary tract symptoms; I49.3 Ventricular premature depolarization; R11.10 Vomiting, unspecified; S09.90XA Unspecified injury of head, initial encounter; W19.XXXA Unspecified fall, initial encounter; Z90.49 Acquired absence of other specified parts of digestive tract; Z95.1 Presence of aortocoronary bypass graft; Z96.651 Presence of right artificial knee joint; Z88.0 Allergy status to penicillin; Z79.84 Long term (current) use of oral hypoglycemic drugs; Z79.899 Other long term (current) drug therapy; Z79.01 Long term (current) use of anticoagulants; Z79.02 Long term (current) use of antithrombotics/antiplatelets; E66.9 Obesity, unspecified; Z68.26 Body mass index [BMI] 26.0-26.9, adult
CPT/HCPCS: 36415; 36430; 70450; 70496; 70498; 71275; 74177; 80053; 81001; 82607; 82728; 82746; 82803; 82962; 83540; 83550; 83605; 83690; 83735; 83880; 84484; 85007; 85014; 85018; 85025; 85027; 85044; 85730; 86850; 87070; 87205; 87389; 89220; 93005; 97116; 97162; 97165; 99285; G0378; J1756; J3475; J3480; J7030; J7050; P9016; Q9967